=== PATIENT | female | born 1995 | race Caucasian/White ===

== ENCOUNTER 2024-02-11 08:23 | Outpatient (OUT) | payer MEDICAID, SELFPAY ==
--- NOTE | 2024-02-11 08:27 | US_ITS ---
The [address] [address] Patient Name: NISHA FAJARDO MRN: [id number] date: 1995 Sex: F Assigned Patient Location: [facility] Current Patient Location: Accession/Order Number: [id number] Exam Date: 02/11/2024 08:27 Report Date: 02/12/2024 04:26 At the request of: PHIL BURROUGHS Procedure: US OB transvaginal EXAMINATION: US OB transvaginal HISTORY: MISSED MENSES COMPARISON: No relevant comparison available. FINDINGS: GESTATIONAL SAC: Present and normal appearing. YOLK SAC: Present and normal appearing. POLE: Present and normal appearing. CARDIAC: Present. UTERUS: Normal size and appearance. OVARIES: Right: Normal. Left: Normal. CERVIX: 4.9 cm in length and closed. CUL-DE-SAC: Normal. OTHER: None. AGE BY LMP: 9 weeks 5 days KYLEIGH BY LMP: 09/10/2024 AGE BY US CRL: 10 weeks 4 days KYLEIGH BY US CRL: 09/04/2024 US/US OB transvaginal IMPRESSION: 1. Single live intrauterine . Electronically authenticated by: JACEK FLORES Date: 02/12/2024 04:26
== END 2024-02-11 08:24 | disposition home or self-care (01) ==
LOC: NOMS 08:24
PROVIDERS: Visit Provider Obstetrics & Gynecology
DX: Z34.91 Encounter for supervision of normal pregnancy, unspecified, first trimester (principal); Z3A.10 10 weeks gestation of pregnancy; N92.6 Irregular menstruation, unspecified
CPT/HCPCS: 76817

== ENCOUNTER 2024-02-14 13:48 | Outpatient (OUT) | payer MEDICAID, SELFPAY ==
--- OUTSIDE RECORDS SUMMARY | 2024-02-14 13:50 | XMS_ITS | CCD ---
Author Organization [facility] Care Team Providers Care Principal Programmer Name Role Phone DR MECHELLE MOODY Attending Unavailable HEIDY, DR MECHELLE Serrano Consulting Unavailable DR MECHELLE MOODY Admitting Unavailable NaomyAzaelie Unavailable Francisco Javier BOONE, Terrence Cross Primary Care Provider Medications Current Medications Medication Drug Class(es) Dates Sig (Normalized) Sig (Original) ondansetron 4 mg oral tablet (1 source) Serotonin-3 Receptor Antagonist Start: 11-23-2021 take 1 tablet by mouth every eight hours as needed Zofran ODT 4 MG 1 tablet on the tongue and allow to dissolve Orally every 8 hrs as needed for 4 days Nov, Active Vit-Fe Fumarate-FA (PNV Plus Multivitamin) 27-1 MG tablet (1 source) Start: 02-11-2024 End: 02-10-2025 take 1 tablet by mouth once daily Vit-Fe Fumarate-FA (PNV Plus Multivitamin) 27-1 MG tablet Indications: , unspecified gestational age Take 1 tablet by mouth Daily 30 tablet 11 02/11/2024 02/10/2025 Active Problems Active Problems Problem Classification Problem Date Documented Da te Episodic/Chronic Menstrual disorders (1 source) Missed period; Translations: [Irregular menstruation, unspecified] 02-11-2024 Chronic Other and delivery including normal (2 sources) ; Translations: [Encounter for supervision of normal , unspecified, unspecified trimester] 02-11-2024 Episodic Other upper respiratory infections (1 source) Acute pharyngitis, unspecified; Translations: [ACUTE PHARYNGITIS UNSPECIFIED] Onset: 12-07-2020 Episodic Residual codes; unclassified (1 source) Gestation period, 10 weeks; Translations: [10 weeks gestation of ] 02-11-2024 Episodic Unclassified (3 sources) CONTACT W/AND (SUSP) EXPOS COVID-19; Translations: [CONTACT W/AND (SUSP) EXPOS COVID-19] Onset: 12-07-2020 Past or Other Problems Problem Classification Problem Date Documented Da te Episodic/Chronic Unclassified (1 source) CONTACT W/AND (SUSP) EXPOS COVID-19; Translations: [CONTACT W/AND (SUSP) EXPOS COVID-19] Onset: 11-28-2020 Unclassified (1 source) Contact with and (suspected) exposure to covid-19; Translations: [Contact with and (suspected) exposure to covid-19] Unclassified (1 source) Contact with and (suspected) exposure to covid-19 Z20.822 Viral infection (1 source) COVID-19 Results Test Name Value Interpretation Reference Range Facility HCG ( test) Ql (U)o n 02-11-2024 Interpretation and review of laboratory results Abnormal [facility] Preg Test, Ur Positive Negative [facility]inal[facility] macro (dipstick) panel (U)on 02-11-2024 Bilirubin, UA Negative Negative - 4(70) +++ mg/dL [facility] Blood, UA Negative Negative - 50 Jordan/mcL [facility] Clarity, UA Clear [facility] re Color, UA Yellow [facility] Glucose, UA Negative Negative - 1999(110) ++++ mg/dL [facility] Interpretation and review of laboratory results Normal [facility] Ketones, UA Negative Negative - 160(16) ++++ mg/dL [facility] Leukocytes, UA Negative Negative - 500+++ Leanne/mcL [facility] Nitrite, UA Negative Negative - Positive [facility] pH, UA 6 5 - 9 [facility] Health[facility] Protein, UA Negative Negative - 1999(20) ++++ mg/dL [facility] Spec Grav, UA 1.025 1 - 1.03 [facility] Urobilinogen, UA 0.2 0.2 - 12 mg/dL [facility] SARS-CoV-2 (COVID-19) RNA NA A+probe Ql (Resp)on 11-23-2021 SARS-CoV-2 (COVID-19) RNA RASHEED+probe Ql (Unsp spec) Positive [facility] Covid-19 PCR (CVDTB)on 11-03 SARS-CoV-2 (COVID-19) RNA RASHEED+probe Ql (Unsp spec) Not detected Normal NOT DETECTED [facility] Comment on above: Result Comment: This test is not yet approved or cleared by the [place] FDA. When there are no FDA-approved or cleared tests available, and other criteria are met, FDA can make tests available under an emergency access mechanism called an Emergency Use Authorization (EUA). The EUA for this test is supported by the [place] of Health and Human Service's (HHS's) declaration that circumstances exist to justify the emergency use of in vitro diagnostics for the detection and/or diagnosis of the virus that causes COVID-19. This EUA will remain in effect (meaning this test can be used) for the duration of the COVID-19 declaration justifying emergency of IVDs, unless it is terminated or revoked by FDA (after which the test may no longer be used). When diagnostic testing is negative, the possibility of a false negative should be considered in the context of a patient's recent exposures and the presence of clinical signs and symptoms consistent with SARS-CoV-2. Performed By: #### [facility] #### [facility] [address] [place] [address] Dr. Kaela Stewart Vital Signs Date Time Vital Sign Value Performing Clinician Facility 02-11-2024 09:32-0500 Body weight 86.18 kg [facility] Nurse [facility] 02-11-2024 09:32-0500 Diastolic blood pressure 70 mm[Hg] [facility] Nurse [facility] 02-11-2024 09:32-0500 Systolic blood pressure 110 mm[Hg] [facility] Nurse [facility] 11-23-2021 14:10-0400 Body height 154.94 cm Marianna Moralez Other [facility] 11-23-2021 14:10-0400 Body mass index (BMI) [Ratio] 34.01 kg/m2 Marianna Moralez Other [facility] 11-23-2021 14:10-0400 Body temperature 99.8 [degF] Marianna Moralez Other [facility] 11-23-2021 14:10-0400 Body weight 81.65 kg Marianna Moralez Other [facility] 11-23-2021 14:10-0400 Respiratory rate 18 /min Marianna Moralez Other [facility] 11-23-2021 14:10-0400 SaO2% (BldA) [Mass fraction] 97 % Marianna Moralez Other [facility] Other Encounters Encounter Date Encounter Type Care Provider Facility Start: 02-11-2024 End: 02-11-2024 ambulatory [facility] Comment on above: GA: 10w4d Start: 11-23-2021 End: 11-23-2021 ambulatory Marianna Moralez Other [facility] Start: 11-23-2021 Office outpatient ne w 30 minutes Marianna Moralez [facility] Start: 11-28-2020 End: 11-28-[address] MECHELLE MOODY Facility: Procedures Date Procedure Procedure Detail Performing Clinician Start: 02-11-2024 End: 02-11-2024 Urnls dip stick/tablet rgnt non-auto w/o micrscp Ronald Fierro DO Work Phone: Plan of Treatment Date Care Activity Detail Author Start: 03-16-2024 End: 03-16-2024 Patient encounter procedure 03/16/2024 3:50 PM EST Routine [facility] [address] [place] [address] Ronald Fierro, DO [address], [place] [id number] [facility] Start: 02-11-2024 End: 02-10-2025 ABO/Rh ABO/Rh Lab Routine Missed menses , unspecified gestational age Expected: 02/11/2024 (Approximate), Expires: 02/10/2025 [facility] Comment on above: Expected: 02/11/2024 (Approximate), Expires: 02/10/2025 Start: 02-11-2024 End: 02-10-2025 Blood type and Indirect antibody screen panel - Blood Type and screen Lab Routine Missed menses , unspecified gestational age Expected: 02/11/2024 (Approximate), Expires: 02/10/2025 [facility] Work Phone: Comment on above: Expected: 02/11/2024 (Approximate), Expires: 02/10/2025 Start: 02-11-2024 End: 02-10-2025 Drugs of abuse panel - Urine by Screen method Rapid drug screen, urine Lab Routine , unspecified gestational age Encounter for supervision of normal first in first trimester Expected: 02/11/2024 (Approximate), Expires: 02/10/2025 [facility] Comment on above: Expected: 02/11/2024 (Approximate), Expires: 02/10/2025 Start: 02-11-2024 End: 02-10-2025 US Pelvis transvaginal US OB transvaginal Imaging Routine Missed menses Expected: 02/11/2024 (Approximate), Expires: 02/10/2025 [facility] Comment on above: Expected: 02/11/2024 (Approximate), Expires: 02/10/2025 Bacteria identified in Urine by Culture Urine culture Microbiology Routine Missed menses Ordered: 02/11/2024 [facility] Comment on above: Ordered: 02/11/2024 CBC W Auto Different ial panel - Blood CBC and differential Lab Routine Missed menses , unspecified gestational age Ordered: 02/11/2024 [facility] Comment on above: Ordered: 02/11/2024 Hemoglobin A1c/Hemoglobin.total in Blood Hemoglobin A1c Lab Routine Missed menses , unspecified gestational age Ordered: 02/11/2024 [facility] Comment on above: Ordered: 02/11/2024 Hepatitis B virus surface Ag [Presence] in Serum or Plasma by Immunoassay Hepatitis B surface antigen Lab Routine Missed menses , unspecified gestational age Ordered: 02/11/2024 [facility] Comment on above: Ordered: 02/11/2024 Hepatitis C virus Ab [Presence] in Serum or Plasma by Immunoassay Hepatitis C antibody Lab Routine Missed menses , unspecified gestational age Ordered: 02/11/2024 [facility] Comment on above: Ordered: 02/11/2024 HIV-1/HIV-2 antigen/antibody combination immunoassay HIV-1 and HIV-2 antibodies Lab Routine Missed menses , unspecified gestational age Ordered: 02/11/2024 [facility] Comment on above: Ordered: 02/11/2024 Reagin Ab [Presence] in Serum by RPR RPR Lab Routine Missed menses , unspecified gestational age Ordered: 02/11/2024 [facility] Comment on above: Ordered: 02/11/2024 Rubella antibody, IgG Rubella an tibody, IgG Lab Routine Missed menses , unspecified gestational age Ordered: 02/11/2024 [facility] Comment on above: Ordered: 02/11/2024 Payers Date Payer Category Payer Medicaid [place] [id number] 2024 Medicaid [id number] 1995 Unknown [id number] 1995 Unknown [id number] 1957 Unknown [id number] Social History Date Type Detail Facility Sex Assigned At [facility] Tobacco smoking status DCIS Tobacco smoking consumption unknown [facility] Start: 12-13-2023 [facility] Start: 1995 Sex assigned at Not on file [facility] History of Present illness Narrative 02-11-2024 Annie Keith MA - 02/11/2024 9:00 AM EST Note Date & Type Note Facility 02-11-2024 History of Presen t illness Narrative Reason for Appointment: Patient ID: Veda Mtz is a 28 y.o. female who presents for Amenorrhea Patient presents today for a Nurse OB Intake appointment. Patient is 10w4d with a Estimated Date of Delivery: 09/04/24 OB History Para Term AB Living 1 SAB IAB Ectopic Multiple Live Births # Outcome Date GA Lbr Zeus/2nd Weight Sex Type Anes PTL Lv 1 Current Current Medications: has a current medication list which includes the following prescription(s): pnv plus multivitamin. Medical History: Active Ambulatory Problems Diagnosis Date Noted No Active Ambulatory Problems Resolved Ambulatory Problems Diagnosis Date Noted No Resolved Ambulatory Problems No Additional Past Medical History No family history on file. Social History Tobacco Use Smoking status: Not on file Smokeless tobacco: Not on file Substance Use Topics Alcohol use: Not on file Drug use: Not on file No past surgical history on file. No Known Allergies Vitals: There is no height or weight on file to calculate BMI. BP: 110/70 Patient's last menstrual period was 12/05/2023. Assessment/Plan Diagnoses and all orders for this visit: Missed menses - Type and screen; Future - ABO/Rh; Future - CBC and differential - Hemoglobin A1c - RPR - Rubella antibody, IgG - Hepatitis B surface antigen - Hepatitis C antibody - HIV-1 and HIV-2 antibodies - Urine culture - US OB transvaginal; Future - POCT , urine manually resulted - POCT urinalysis dipstick manually resulted , unspecified gestational age - Type and screen; Future - ABO/Rh; Future - CBC and differential - Hemoglobin A1c - RPR - Rubella antibody, IgG - Hepatitis B surface antigen - Hepatitis C antibody - HIV-1 and HIV-2 antibodies - Rapid drug screen, urine; Future - Vit-Fe Fumarate-FA (PNV Plus Multivitamin) 27-1 MG tablet; Take 1 tablet by mouth Daily Encounter for supervision of normal first in first trimester - Rapid drug screen, urine; Future 10 weeks gestation of Nurse Note: OB Intake: Patient presents today for first OB visit. Patients history has been reviewed in great detail including any potential risks. Patient signed consent forms and patient desires testing in both trimesters. Patient currently has no complaints and has been advised to drink 6-8 glasses of water a day, eat no raw or undercooked meat, and stay away from [facility]. Patient has also been advised to not change litter boxes and eat 6 small meals a day. Patient has been consulted regarding the do's and don'ts of . Patient was given labs and all questions and concerns were answered. Follow Up: Patient is to return in 4 weeks for routine OB appointment. Follow Up: Patient is to have labs drawn at directed and return to office for initial OB appointment with provider. Patient may call office as needed with any concerns or questions. Nurse Visit Completed by: Annie Keith MA documented in this encounter [facility] Evaluation note 11-23-2021 Note Date & Type Note Facility 11-23-2021 Evaluation note Encounter Date Diagnosis Assessment Notes Nov, Contact with and (suspected) exposure to covid-19 (ICD-10 - Z20.822) Nov, COVID-19 (ICD-10 - U07.1) Today you tested positive for the COVID virus. This mean you need to follow all CDC quarantine guidelines found at coronavirus.oh io.gov. It is important to rest, increase fluids, and stay at home. Recommend contacting primary care provider and discussing best course of action if you have chronic health conditions. COVID POSITIVE education handout discharge instructions. given. T [facility] Other Evaluation note Note Date & Type Note Facility Evaluation note Diagnosis Missed menses , unspecified gestational age Encounter for supervision of normal first in first trimester 10 weeks gestation of documented in this encounter [facility] Summary Purpose Family History No Family History Records FoundNo Family History Records Found Advance Directives No Advanced Directives Records FoundNo Advanced Directives Records Found Additional Source Comments INFORMATION SOURCE (unrecogn ized section and content) DATE CREATED AUTHOR 12/08/2020 [facility] DATE CREATED AUTHOR AUTHOR'S ORGANIZ ATION 02/14/2024 [facility] EPIC REASON FOR VISIT (unrecogniz ed section and content) Reason Comments Amenorrhea Care Teams (unrecognized sec tion and content) Principal Programmer Relationship Specialty Start Date End Date Terrence Mcintyre MD [address] [place] [address] PCP - General Family Medicine 02/11/24 FOR RECORDS PERTAINING TO PATIENTS WHO ARE OR HAVE BEEN ENROLLED IN A CHEMICAL DEPENDENCY/SUBSTANCEABUSE PROGRAM, SOME INFORMATION MAY BE OMITTED. This clinical summary was aggregated from multiple sources. Caution should be exercised in using it in the provision of clinical care. This summary normalizes information from multiple sources, and as a consequence, information in this document may materially change the coding, format and clinical context of patient data. In addition, data may be omitted in some cases. CLINICAL DECISIONS SHOULD BE BASED ON THE PRIMARY CLINICAL RECORDS. [employer] [facility]. provides no warranty or guarantee of the accuracy or completeness of information in this document.
[2024-02-14 14:18] LABS: Basophils Absolute Auto 0.1 10^3/uL (0.0-0.1); Basophils Percent Auto 0.5 % (0.2-2.0); Eosinophils Percent Auto 0.4 % (0.9-7.0); Hematocrit 39.8 % (36.0-48.0); Hemoglobin 13.5 g/dL (12.0-16.0); Immature Granulocytes Abs Auto 0.03 10^3/uL (0.00-0.03); Immature Granulocytes Pct Auto 0.3 % (0.0-0.5); Lymphocytes Absolute Auto 1.8 10^3/uL (1.2-3.8); Lymphocytes Percent Auto 16.2 % (20.5-60.0); Mean Corpuscular HGB Conc 33.9 g/dL (29.9-35.2); Mean Corpuscular Hemoglobin 28.8 pg (26.7-34.0); Monocytes Absolute Auto 0.4 10^3/uL (0.3-0.8); Monocytes Percent Auto 3.8 % (1.7-12.0); Neutrophils Absolute Auto 8.8 10^3/uL (1.4-6.5); Neutrophils Percent Auto 78.8 % (43.0-75.0); Platelet Count 351 10^3/uL (150-450); Red Blood Count 4.68 10^6/uL (4.20-5.40); Red Cell Distribution Width 12.4 % (11.0-15.0); White Blood Count 11.2 10^3/uL (4.0-11.0)
[2024-02-14 14:36] LABS: Amphetamine Screen Urine NEGATIVE (NEGATIVE); Barbiturates Screen Urine NEGATIVE (NEGATIVE); Benzodiazepines Screen Urine NEGATIVE (NEGATIVE); Buprenorphine Screen Urine NEGATIVE (NEGATIVE); Cannabinoid Screen Urine NEGATIVE (NEGATIVE); Cocaine Screen Urine NEGATIVE (NEGATIVE); Methadone Screen Urine NEGATIVE (NEGATIVE); Methamphetamines Screen Urine NEGATIVE (NEGATIVE); Opiate Screen Urine NEGATIVE (NEGATIVE); Oxycodone Screen Urine NEGATIVE (NEGATIVE); Phencyclidine Screen Urine NEGATIVE (NEGATIVE); Tricyclic Antidepressant Urine NEGATIVE (NEGATIVE)
[2024-02-14 15:05] LABS: Estimated Average Glucose 91 mg/dL; Glycohemoglobin A1C 4.8 % (4.5-6.2)
[2024-02-15 08:11] LABS: HBsAg Screen Negative (Negative); HCV Ab Non Reactive (Non Reactive); HIV Ab/p24 Ag Screen Non Reactive (Non Reactive)
[2024-02-15 10:12] LABS: Rapid Plasma Reagin, Quant Non Reactive titer (NonRea<1:1)
[2024-02-17 10:07] LABS: Rubella Antibodies, IgG 0.97 index (Immune >0.99)
== END 2024-02-14 13:49 | disposition home or self-care (01) ==
LOC: LAB 13:48
PROVIDERS: Visit Provider Obstetrics & Gynecology
DX: Z34.01 Encounter for supervision of normal first pregnancy, first trimester (principal); Z34.90 Encounter for supervision of normal pregnancy, unspecified, unspecified trimester
CPT/HCPCS: 36415; 80307; 83036; 85025; 86592; 86762; 86803; 86850; 86900; 86901; 87086; 87150; 87186; 87340; 87389

== ENCOUNTER 2024-04-15 19:46 | Outpatient (REF) | payer OTHER, SELFPAY ==
--- OUTSIDE RECORDS SUMMARY | 2024-04-15 19:49 | XMS_ITS | CCD ---
Author Organization [facility] Care Team Providers Care 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 Name Role Phone DR MECHELLE MOODY Attending Unavailable HEIDY, DR MECHELLE Serrano Consulting Unavailable HEIDY, DR MECHELLE Serrano Admitting Unavailable Marianna Moralez Unavailable Francisco Javier BOONE, Terrence Cross Primary Care Provider [phone] PHIL FIERRO Attending Unavailable Sarah Dowling Primary Care Provider Medications Current Medications Medication Drug Class(es) Dates Sig (Normalized) Sig (Original) azithromycin 250 mg oral tablet (1 source) Macrolide Antimicrobial Start: 04-04-2024 take 1 tablet by mouth once daily Azithromycin 250 mg tablet Active 250 MG PO Daily April 04, 2024 12:00am Ethinyl Estradiol / Ferrous fumarate / Norethindrone (1 source) Estrogen Start: 03-05-2022, 1 mg-20 mcg (21)/75 mg (7) per tablet TAKE 1 TABLET DAILY 84 tablet 03/05/2022 Active ondansetron 4 mg oral tablet (2 sources) Serotonin-3 Receptor Antagonist Start: 05-28-2022 take 1 tablet by mouth every eight hours as needed for nausea and vomiting ondansetron (ZOFRAN) 4 mg tablet Take 1 tablet (4 mg total) by mouth every 8 (eight) hours as needed for nausea or vomiting. 20 tablet 05/28/2022 Active Start: 11-23-2021 take 1 tablet by nikolay th every eight hours as needed Zofran ODT 4 MG 1 tablet on the tongue and allow to dissolve Orally every 8 hrs as needed for 4 days Nov, Active oseltamivir 75 mg oral capsule (1 source) Neuraminidase Inhibitor Start: 04-04-2024 take 1 capsule by mouth twice daily Oseltamivir 75 mg capsule Active 75 MG PO Twice daily 10 5 April 04, 2024 12:00am Pnv,Calcium 02-Wsbc-Bsawf Acid ( Vitamin Plus Low Iron) 27 mg iron- 1 mg tablet (1 source) Start: 04-04-2024 take 1 tablet by mouth once daily Pnv,Calcium 73-Gopu-Tjxaa Acid ( Vitamin Plus Low Iron) 27 mg iron- 1 mg tablet Active 1 TAB PO Daily April 04, 2024 12:00am Vit-Fe Fumarate-FA (PNV Plus Multivitamin) 27-1 MG tablet (5 sources) Start: 02-11-2024 End: 02-10-2025 take 1 tablet by mouth once daily Vit-Fe Fumarate-FA (PNV Plus Multivitamin) 27-1 MG tablet Indications: , unspecified gestational age Take 1 tablet by mouth Daily 30 tablet 11 02/11/2024 02/10/2025 Active Problems Active Problems Problem Classification Problem Date Documented Da te Episodic/Chronic Influenza (2 sources) Influenza due to Influenza A virus; Translations: [Influenza due to other identified influenza virus with other respiratory manifestations] 04-04-2024 Episodic Menstrual disorders (1 source) Missed period; Translations: [Irregular menstruation, unspecified] 02-11-2024 Chronic Other and delivery including normal (4 sources) ; Translations: [Encounter for supervision of normal , unspecified, unspecified trimester] 02-11-2024 Episodic Other upper respiratory infections (1 source) Acute pharyngitis, unspecified; Translations: [ACUTE PHARYNGITIS UNSPECIFIED] Onset: 12-07-2020 Episodic Residual codes; unclassified (1 source) Gestation period, 10 weeks; Translations: [10 weeks gestation of ] 02-11-2024 Episodic Residual codes; unclassified (2 sources) Gestation period, 15 weeks; Translations: [15 weeks gestation of ] 03-16-2024 Episodic Unclassified (3 sources) CONTACT W/AND (SUSP) EXPOS COVID-19; Translations: [CONTACT W/AND (SUSP) EXPOS COVID-19] Onset: 12-07-2020 Past or Other Problems Problem Classification Problem Date Documented Da te Episodic/Chronic Mood disorders (1 source) Mood disorders Onset: 05-28-2022 05-28-2022 Unclassified (1 source) CONTACT W/AND (SUSP) EXPOS COVID-19; Translations: [CONTACT W/AND (SUSP) EXPOS COVID-19] Onset: 11-28-2020 Unclassified (1 source) Contact with and (suspected) exposure to covid-19; Translations: [Contact with and (suspected) exposure to covid-19] Unclassified (1 source) Contact with and (suspected) exposure to covid-19 Z20.822 Viral infection (1 source) COVID-19 Results Test Name Value Interpretation Reference Range Facility ALL CBC WITH AUTO DIFFon BASOPHILS ABSOLUTE AUTO 0.1 [facility] Basophils/100 WBC (Bld) 0.5 % 0.2 - 2.0 % [facility] Eosinophils/100 WBC (Bld) 0.4 % Low 0.9 - 7.0 % [facility] Erythrocyte distribution width (RBC) [Ratio] 12.4 % 11.0 - 15.0 % [facility] Hematocrit (Bld) [Volume fraction] 39.8 % 36.0 - 48.0 % [facility] Hemoglobin (Bld) [Mass/Vol] 13.5 g/dL 12.0 - 16.0 g/dL [facility] IMMATURE GRANULOCYTES ABS AUTO 0.03 [facility] Immature granulocytes/100 WBC (Bld) 0.3 % 0.0 - 0.5 % [facility] Interpretation and review of laboratory results Abnormal [facility] LYMPHOCYTES ABSOLUTE AUTO 1.8 [facility] Lymphocytes/100 WBC (Bld) 16.2 % Low 20.5 - 60.0 % [facility] MCH (RBC) [Entitic mass] 28.8 pg 26.7 - 34.0 pg [facility] MCHC (RBC) [Mass/Vol] 33.9 g/dL 29.9 - 35.2 g/dL [facility] MCV (RBC) [Entitic vol] 85 fL 81.0 - 99.0 fL [facility] MONOCYTES ABSOLUTE AUTO 0.4 [facility] Monocytes/100 WBC (Bld) 3.8 % 1.7 - 12.0 % [facility] NEUTROPHILS ABSOLUTE AUTO 8.8 High [facility] Neutrophils/100 WBC (Bld) 78.8 % High 43.0 - 75.0 % [facility] Platelet mean volume (Bld) [Entitic vol] 9 fL Low 9.5 - 13.5 fL [facility] are TB EO # 0 [facility] e TB PLT 351 [facility] e [facility] RBC 4.68 [facility] WBC 11.2 High [facility] e [facility] e [facility] DRUG SCREEN RAPID (URINE )on 02-14-2024 AMPHETAMINE SCREEN URINE Negative NEGATIVE [facility] BARBITURATES SCREEN URINE Negative NEGATIVE [facility] BENZODIAZEPINES SCREEN URINE Negative NEGATIVE [facility] BUPRENORPHINE SCREEN URINE Negative NEGATIVE [facility] Comment on above: DRUG CLASS TEST SYST EM CUT-OFF CONCENTRATIONS ARE FOLLOWS: AMP (Amphetamine): 500 ng/mL BAR (Barbiturates): 200 ng/mL BZO (Benzodiazepines): 150 ng/mL BUP (Buprenorphine): 10 ng/mL VICTORIA (Cocaine): 150 ng/mL mAMP (Methamphetamine): 500 ng/mL MTD (Methadone): 200 ng/mL OPI (Opiates): 100 ng/mL OXY (Oxycodone): 100 ng/mL PCP (Phencyclidine): 25 ng/mL THC (Cannabinoids): 50 ng/mL TCA (Trycyclic Antidepressants): 300 ng/mL CANNABINOID SCREEN URINE Negative NEGATIVE [facility] COCAINE SCREEN URINE Negative NEGATIVE [facility] METHADONE SCREEN URINE Negative NEGATIVE [facility] METHAMPHETAMINES SCREEN URINE Negative NEGATIVE [facility] OPIATE SCREEN URINE Negative NEGATIVE [facility] OXYCODONE SCREEN URINE Negative NEGATIVE [facility] PHENCYCLIDINE SCREEN URINE Negative NEGATIVE [facility] TRICYCLIC ANTIDEPRESSANT URINE Negative NEGATIVE [facility] e HCG ( test) Ql (U)o n 02-11-2024 Interpretation and review of laboratory results Abnormal [facility] Preg Test, Ur Positive Negative [facility] Urinalysis macro (dipstick) panel (U)on 02-11-2024 Bilirubin, UA Negative Negative - 4(70) +++ mg/dL [facility] Blood, UA Negative Negative - 50 Jordan/mcL [facility] Clarity, UA Clear [facility] re Color, UA Yellow [facility] e Glucose, UA Negative Negative - 2000(110) ++++ mg/dL [facility] Interpretation and review of laboratory results Normal [facility] Ketones, UA Negative Negative - 160(16) ++++ mg/dL [facility] Leukocytes, UA Negative Negative - 500+++ Leanne/mcL [facility] Nitrite, UA Negative Negative - Positive [facility] pH, UA 6 5 - 9 [facility] Health[facility] e Protein, UA Negative Negative - 2000(20) ++++ mg/dL [facility] Spec Grav, UA 1.025 1 - 1.03 [facility] Urobilinogen, UA 0.2 0.2 - 12 mg/dL [facility] SARS-CoV-2 (COVID-19) RNA NA A+probe Ql (Resp)on 11-23-2021 SARS-CoV-2 (COVID-19) RNA RASHEED+probe Ql (Unsp spec) Positive [employer] Other Covid-19 PCR ([facility])on 11-03 SARS-CoV-2 (COVID-19) RNA RASHEED+probe Ql (Unsp spec) Not detected Normal NOT DETECTED [facility] Comment on above: Result Comment: This test is not yet approved or cleared by the [place] FDA. When there are no FDA-approved or cleared tests available, and other criteria are met, FDA can make tests available under an emergency access mechanism called an Emergency Use Authorization (EUA). The EUA for this test is supported by the [place] of Health and Human Service's (HHS's) declaration [...] consistent with SARS-CoV-2. Performed By: #### [facility] #### [facility] [address] [place] [address] Dr. Kaela Stewart Vital Signs Date Time Vital Sign Value Performing Clinician Facility 04-04-2024 10:57-0500 Body height 157.48 cm [facility] 04-04-2024 10:57-0500 Body mass index (BMI) [Ratio] 35.4 kg/m2 [facility] 04-04-2024 10:57-0500 Body temperature 99.8 [degF] [facility] 04-04-2024 10:57-0500 Body weight 87.99 kg [facility] 04-04-2024 10:57-0500 Diastolic blood pressure 71 mm[Hg] [facility] 04-04-2024 10:57-0500 Heart rate 118 /min [facility] 04-04-2024 10:57-0500 Respiratory rate 16 /min [facility] 04-04-2024 10:57-0500 SaO2% (BldA) [Mass fraction] 98 % [facility] 04-04-2024 10:57-0500 Systolic blood pressure 101 mm[Hg] [facility] 03-16-2024 16:35-0500 Body weight 88.18 kg [employer] Work Phone: [facility] 03-16-2024 16:35-0500 Diastolic blood pressure 68 mm[Hg] Phil Sri DO Work Phone: [facility] 03-16-2024 16:35-0500 Systolic blood pressure 108 mm[Hg] Phil Sri DO Work Phone: [facility] 02-11-2024 09:32-0500 Body weight 86.18 kg Nom Nurse [facility] 02-11-2024 09:32-0500 Diastolic blood pressure 70 mm[Hg] [facility] Nurse [facility] 02-11-2024 09:32-0500 Systolic blood pressure 110 mm[Hg] [facility] Nurse [facility] 11-23-2021 14:10-0400 Body height 154.94 cm Marianna Moralez Other [employer] Other 11-23-2021 14:10-0400 Body mass index (BMI) [Ratio] 34.01 kg/m2 Marianna Moralez Other [employer] [facility] [employer] Other 11-23-2021 14:10-0400 Body temperature 99.8 [degF] Marianna Moralez Other [employer] Other 11-23-2021 14:10-0400 Body weight 81.65 kg Marianna Moralez Other [employer] Other 11-23-2021 14:10-0400 Respiratory rate 18 /min Marianna Moralez Other [employer] Other 11-23-2021 14:10-0400 SaO2% (BldA) [Mass fraction] 97 % Marianna Moralez Other [employer] Other Encounters Encounter Date Encounter Type Care Provider Facility Start: 04-14-2024 End: 04-15-2024 Telephone encounter Sarah Queen APRN-[employer] WORK[employer] Work Phone: [facility] Start: 04-04-2024 End: 04-04-2024 ambulatory [facility] Work Phone: Start: 04-04-2024 End: 04-04-2024 Patient encounter procedure [facility] Work Phone: Start: 03-16-2024 End: 03-16-2024 ambulatory PHIL SRI Not Available Start: 03-16-2024 End: 03-16-2024 Office outpatient visit 15 minutes Phil Sri DO Work Phone: [facility] Comment on above: Second trimester pre gnancy; 15 weeks gestation of Start: 03-16-2024 End: 03-16-2024 Bamboo flowsheet Phil Sri DO Work Phone: [facility] Start: 03-16-2024 End: 03-16-2024 Bamboo flowsheet Phil Sri DO Work Phone: [facility] Start: 02-14-2024 End: 02-14-2024 [facility] Result Encounter Phil Calderazio DO Work Phone: [facility] Unsolicited Start: 02-14-2024 End: 02-14-2024 [facility] Result Encounter Phil Sri DO Work Phone: [facility] Unsolicited Start: 02-11-2024 End: 02-11-2024 ambulatory [facility] Sri Nurse [facility] Comment on above: GA: 10w4d Start: 11-23-2021 End: 11-23-2021 ambulatory Marianna Moralez Other [employer] Other Start: 11-23-2021 Office outpatient ne w 30 minutes Marianna Moralez [facility] Start: 11-28-2020 End: 11-28-[address] MECHELLE MOODY Facility: Procedures Date Procedure Procedure Detail Performing Clinician Start: 02-14-2024 ALL CBC WITH AUTO DIFF Phil Sri DO Work Phone: Start: 02-14-2024 [facility] DRUG SCREEN RAPI D (URINE) Phil Sri DO Work Phone: Start: 02-11-2024 End: 02-11-2024 Urnls dip stick/tablet rgnt non-auto w/o micrscp Phil Sri DO Work Phone: Start: 05-28-2022 Adult depression scr eening assessment Sarah Queen APRN-[employer] WORK[employer] Work Phone: Start: 12-15-2018 Microscopic observat ion [Identifier] in Cervix by Cyto stain Sarah Queen DIE [employer]AKER[employer] Work Phone: Plan of Treatment Date Care Activity Detail Author Start: 06-12-2024 End: 06-12-2024 Patient encounter procedure 06/12/2024 9:40 AM EDT Office Visit [facility] [address] [place] [id number] Sarah Queen D[employer] [address] [place] [address] [facility] Start: 04-15-2024 End: 04-15-2024 Patient encounter procedure 04/15/2024 3:50 PM EST Routine [facility] [address] [address] Chelsea Carson PA [address] [place], [place] [id number] [facility] Start: 03-16-2024 End: 03-16-2024 Patient encounter procedure 03/16/2024 3:50 PM EST Routine [facility] [address] [address] Phil Fierro DO [address] [place], [place] [id number] [facility] Start: 02-11-2024 End: 02-10-2025 ABO/Rh ABO/Rh Lab Routine Missed menses , unspecified gestational age Expected: 02/11/2024 (Approximate), Expires: 02/10/2025 [facility] Comment on above: Expected: 02/11/2024 (Approximate), Expires: 02/10/2025 Start: 02-11-2024 End: 02-10-2025 Blood type and Indirect antibody screen panel - Blood Type and screen Lab Routine Missed menses , unspecified gestational age Expected: 02/11/2024 (Approximate), Expires: 02/10/2025 [facility] Work Phone: Comment on above: Expected: 02/11/2024 (Approximate), Expires: 02/10/2025 Start: 02-11-2024 End: 02-10-2025 Drugs of abuse panel - Urine by Screen method Rapid drug screen, urine Lab Routine , unspecified gestational age Encounter for supervision of normal first in first trimester Expected: 02/11/2024 (Approximate), Expires: 02/10/2025 [facility] Comment on above: Expected: 02/11/2024 (Approximate), Expires: 02/10/2025 Start: 02-11-2024 End: 02-10-2025 US Pelvis transvaginal US OB transvaginal Imaging Routine Missed menses Expected: 02/11/2024 (Approximate), Expires: 02/10/2025 [facility] Comment on above: Expected: 02/11/2024 (Approximate), Expires: 02/10/2025 Start: 05-29-2023 Adult BMI Screening Adult BMI Screen ing [facility] Start: 05-29-2023 Depression Screening Depression Scre ening [facility] Start: 05-29-2023 Tobacco Screening Tobacco Screening [facility] Start: 12-15-2021 Screening for malign ant neoplasm of cervix Pap Smear [facility] Start: 11-22-2020 DTaP,Tdap and Td Vaccines (7 - Td or Tdap) DTaP,Tdap and Td Vaccines (7 - Td or Tdap) [facility] Bacteria identified in Urine by Culture Urine culture Microbiology Routine Missed menses Ordered: 02/11/2024 [facility] Comment on above: Ordered: 02/11/2024 CBC W Auto Different ial panel - Blood CBC and differential Lab Routine Missed menses , unspecified gestational age Ordered: 02/11/2024 [facility] Comment on above: Ordered: 02/11/2024 Hemoglobin A1c/Hemoglobin.total in Blood Hemoglobin A1c Lab Routine Missed menses , unspecified gestational age Ordered: 02/11/2024 [facility] Comment on above: Ordered: 02/11/2024 Hepatitis B virus surface Ag [Presence] in Serum or Plasma by Immunoassay Hepatitis B surface antigen Lab Routine Missed menses , unspecified gestational age Ordered: 02/11/2024 [facility] Comment on above: Ordered: 02/11/2024 Hepatitis C virus Ab [Presence] in Serum or Plasma by Immunoassay Hepatitis C antibody Lab Routine Missed menses , unspecified gestational age Ordered: 02/11/2024 [facility] Comment on above: Ordered: 02/11/2024 HIV-1/HIV-2 antigen/antibody combination immunoassay HIV-1 and HIV-2 antibodies Lab Routine Missed menses , unspecified gestational age Ordered: 02/11/2024 [facility] Comment on above: Ordered: 02/11/2024 Reagin Ab [Presence] in Serum by RPR RPR Lab Routine Missed menses , unspecified gestational age Ordered: 02/11/2024 [facility] Comment on above: Ordered: 02/11/2024 Rubella antibody, IgG Rubella an tibody, IgG Lab Routine Missed menses , unspecified gestational age Ordered: 02/11/2024 [facility] Comment on above: Ordered: 02/11/2024 Immunizations Immunization Date Immunization Notes Care Provider Werner [email or web address] 01-10-2021 Influenza, injectabl e, Madin Frankford Canine Kidney, preservative free, quadrivalent Sarah Bernice [facility] Work Phone: [facility] 11-22-2015 meningococcal oligosaccharide (groups A, C, Y and W-135) diphtheria toxoid conjugate vaccine (MCV4O) Sarah Bernice [facility] Work Phone: [facility] 11-22-2010 tetanus toxoid, redu john diphtheria toxoid, and acellular pertussis [facility], [facility] Work Phone: [facility] 10-20-2003 DTaP-hepatitis B and poliovirus vaccine Sarahdonnie Tariquch [facility] Work Phone: [facility] 10-20-2003 measles, mumps and rubella virus vaccine Sarah Bernice [facility] Work Phone: [facility] 10-24-1998 diphtheria, tetanus toxoids and acellular pertussis vaccine, unspecified formulation Sarah Bernice [facility] Work Phone: [facility] 10-24-1998 haemophilus influenz ae type b vaccine, conjugate unspecified formulation [facility] Work Phone: [facility] 10-24-1998 measles, mumps and rubella virus vaccine Sarah Bernice [facility] Work Phone: [facility] 06-08-1998 diphtheria, tetanus toxoids and acellular pertussis vaccine, unspecified formulation Sarah Bernice [employer] Work Phone: [facility] 06-08-1998 haemophilus influenz ae type b vaccine, conjugate unspecified formulation Sarah Bernice [employer] Work Phone: [facility] 06-08-1998 poliovirus vaccine, unspecified formulation Sarah Bernice [employer] Work Phone: [facility] 04-01-1998 diphtheria, tetanus toxoids and acellular pertussis vaccine, unspecified formulation Sarah Bernice [employer] Work Phone: [facility] 04-01-1998 haemophilus influenz ae type b vaccine, conjugate unspecified formulation Sarah Bernice [employer] Work Phone: [facility] 04-01-1998 hepatitis B vaccine, pediatric or pediatric/adolescent dosage Sarah Bernice [employer] Work Phone: [facility] 04-01-1998 poliovirus vaccine, unspecified formulation Sarah Bernice [employer] Work Phone: [facility] 01-12-1998 diphtheria, tetanus toxoids and acellular pertussis vaccine, unspecified formulation Sarah Bernice [employer] Work Phone: [facility] 01-12-1998 haemophilus influenz ae type b vaccine, conjugate unspecified formulation Sarah Bernice [employer] Work Phone: [facility] 01-12-1998 poliovirus vaccine, unspecified formulation Sarah Bernice [employer] Work Phone: [facility] 1997 hepatitis B vaccine, pediatric or pediatric/adolescent dosage Sarah Bernice [employer] Work Phone: [facility] 1997 hepatitis B vaccine, pediatric or pediatric/adolescent dosage Sarah Bernice [employer] Work Phone: [facility] Payers Date Payer Category Payer [facility] Insurance [employer]ICA[employer] [id number] 2024 Medicaid MEDICAID [place] [facility] [id number] 2024 Medicaid [id number] 2017 [facility] - [place] [id number] 1997 Unknown [id number] 1997 Unknown [id number] 1997 Unknown [id number] 1959 Unknown [id number] Social History Date Type Detail Facility Start: 08-13-2018 End: 05-28-2022 Sex Assigned At [facility] [employer] [facility] Start: 12-13-2023 [facility] Start: 1995 Sex assigned at Not on file [facility] Start: 05-28-2022 End: 04-04-2024 Tobacco smoking status MNIS Never smoked tobacco (finding) [facility] Start: 10-07-2014 End: 04-04-2024 Sex Female (finding) [facility] Start: 1995 Sex Assigned At Female [facility] Start: 05-28-2022 Tobacco use and exposure Smokeless tobacco non-user [facility] Start: 05-28-2022 Alcoholic beverage intake Ex-drinker (finding) [facility] Start: 08-13-2018 End: 05-28-2022 History of Social function [facility] Adolescent depressio n screening assessment 0 [facility] Note 04-14-2024 Telephone Encounter - Lupe Stacy - 04/14/2024 10:08 AM ESTTelephone Encounter - Lupe Stacy - 04/14/2024 10:08 AM EST Note Date & Type Note Facility 04-14-2024 Miscellaneous Notes Formattin g of this note might be different from the original. set up establish care with provider of choice LM on VM documented in this encounter [facility] Telephone encounter Note 04-14-2024 Telephone Encounter - Lupe Stacy - 04/14/2024 10:08 AM EST Note Date & Type Note Facility 04-14-2024 Telephone encount er Note set up establish care with provider of choice [employer] [facility] Telephone encounter Note 04-14-2024 Telephone Encounter - Lupe Stacy - 04/14/2024 10:08 AM EST Note Date & Type Note Facility 04-14-2024 Telephone encount er Note LM on VM Experiment Evaluation note 04-04-2024 Note Date & Type Note Facility 04-04-2024 Evaluation note Diagnosis Onset Date Resolution Influenza A acute April 04, 2024 10:32am [facility] Work Phone: History of Present illness Narrative 03-16-2024 Ijeoma Carrera LPN - 03/16/2024 3:50 PM EST Note Date & Type Note Facility 03-16-2024 History of Presen t illness Narrative Reason for Appointment: Patient ID: Veda Fajardo is a 28 y.o. female who presents for Routine Visit Patient presents today for Return OB appointment. MEDICATIONS Current Outpatient Medications Medication Instructions Vit-Fe Fumarate-FA (PNV Plus Multivitamin) 27-1 MG tablet 1 tablet, Oral, Daily ALLERGIES No Known Allergies PROBLEMS Active Ambulatory Problems Diagnosis Date Noted No Active Ambulatory Problems Resolved Ambulatory Problems Diagnosis Date Noted No Resolved Ambulatory Problems No Additional Past Medical History HISTORY PAST MEDICAL HISTORY SOCIAL HISTORY History reviewed. No pertinent past medical history. Social History Tobacco Use Smoking status: Not on file Smokeless tobacco: Not on file Substance Use Topics Alcohol use: Not on file Drug use: Not on file FAMILY HISTORY No family history on file. SURGICAL HISTORY History reviewed. No pertinent surgical history. REVIEW OF SYSTEMS Review of Systems: Review of Systems All other systems reviewed and are negative. OBJECTIVE Objective: OBGyn Exam Vitals: There is no height or weight on file to calculate BMI. BP: 108/68 Patient's last menstrual period was 12/05/2023. ASSESSMENT & PLAN ICD-10-CM 1. Second trimester Z34.92 2. 15 weeks gestation of Z3A.15 New OB: Patient presents today for 1st time obstetrics appointment with provider. Patient is currently 15w3d . Patients history has been reviewed in great detail including any potential risks. Patient stated she currently has no complaints. Expectations throughout regarding labs, ultrasounds, and appointments have been discussed with the patient in detail. It was reiterated that the patient is to drink 6-8 glasses of water a day, eat 6 small meals a day, do not consume raw or undercooked meat, and stay away from [facility]. Patient has been consulted regarding any further do's and don'ts of . Patient voiced understanding and all questions and concerns were answered. Follow Up: Patient is to return in 4 weeks for routine OB appointment. Documented by Ijeoma Carrera LPN on behalf of: Phil Fierro DO documented in this encounter [facility] History of Present illness Narrative 02-11-2024 Annie Keith MA - 02/11/2024 9:00 AM EST Note Date & Type Note Facility 02-11-2024 History of Presen t illness Narrative Reason for Appointment: Patient ID: Veda Fajardo is a 28 y.o. female who presents [...] meat, and stay away from [facility]. Patient has also been advised to [...] Annie Keith MA documented in this encounter [facility] Evaluation note 11-23-2021 Note Date [...] POSITIVE education handout discharge instructions. given. [employer] Other Evaluation note Note Date & Type Note Facility Evaluation note Diagnosis Missed menses , unspecified gestational age Encounter for supervision of normal first in first trimester 10 weeks gestation of documented in this encounter [facility] Evaluation note Note Date & Type Note Facility Evaluation note Diagnosis Second trimester state, incidental 15 weeks gestation of documented in this encounter [facility] Instructions Note Date & Type Note Facility Instructions Not on filedocumented in this en counter [facility] Summary Purpose Family History Relationship Condition Age at Onset Recorded Date/T kain mother Heart disease Unknown Advance Directives Advance Directive Response Recorded Date/ Time Advance Directives No April 04, 2024 10:31am Chief Complaint and Reason for Visit Chief Complaint Admit Date Cough, chest congestion April 04 10:32am Reason for Visit Admit Date Influenza A April 04, 2024 1 0:32am Additional Source Comments INFORMATION SOURCE (unrecogn ized section and content) DATE CREATED AUTHOR 12/08/2020 [facility] DATE CREATED AUTHOR AUTHOR'S ORGANIZ ATION 03/20/2024 [facility] EPIC REASON FOR VISIT (unrecogniz ed section and content) Reason Comments Amenorrhea Reason Comments Routine Visit Care Teams (unrecognized sec tion and content) 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 Start Date End Date Terrence Mcintyre MD [address] [place] [address] PCP - General Family Medicine 02/11/24 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 Start Date End Date Terrence Mcintyre MD [address] [place] [address] PCP - General Family Medicine 02/11/24 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 Start Date End Date Terrence Mcintyre MD [address] [place] [address] PCP - General Family Medicine 02/11/24 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 Start Date End Date Terrence Mcintyre MD [address] [place] [address] PCP - General Family Medicine 02/11/24 Team Status: Active Member Role Status Dates Terrence Mcintyre DO Primary Care Provider Active Team Status: Inactive Member Role Status Dates Terrence Mcintyre DO Primary Care Provider Active Start: April 04, 2024 End: April 04, 2024 Michell German APRN Attending Provider Active Start: April 04, 2024 End: April 04, 2024 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 [facility]. provides no warranty or guarantee of the accuracy or completeness of information in this document.
[2024-04-20 15:09] LABS: Age Gdln ACOG Testing Note (.); IGP, rfx Aptima HPV ASCU Note (.)
== END 2024-04-15 19:47 | disposition home or self-care (01) ==
LOC: LAB 19:46
PROVIDERS: Visit Provider Physician Assistant
DX: Z01.419 Encounter for gynecological examination (general) (routine) without abnormal findings (principal)
CPT/HCPCS: 88175

== ENCOUNTER 2024-05-04 16:42 | Outpatient (OUT) | payer OTHER, SELFPAY ==
--- OUTSIDE RECORDS SUMMARY | 2024-05-04 16:52 | XMS_ITS | CCD ---
Author Organization [facility] Care Team Providers Care Data Center Operator Name Role Phone DR MECHELLE MOODY Attending Unavailable HEIDY, DR MECHELLE Serrano Consulting Unavailable HEIDY, DR MECHELLE Serrano Admitting Unavailable Marianna Moralez Unavailable Francisco Javier BOONE, Terrence Cross Primary Care Provider Sarah Dowling Primary Care Provider CHESLEA PURVIS Attending Unavailable PHIL FIERRO Attending Unavailable Medications Current Medications Medication Drug Class(es) Dates Sig (Normalized) Sig (Original) azithromycin 250 mg oral tablet (6 sources) Macrolide Antimicrobial Start: 04-04-2024 take 1 tablet by mouth once daily Azithromycin 250 mg tablet Active 250 MG PO Daily April 04, 2024 12:00am Start: 04-03-2024 azithromycin ( Zithromax Z-Casey) 250 MG tablet Indications: Upper respiratory tract infection, unspecified type As directed 6 tablet 04/03/2024 Active Ethinyl Estradiol / Ferrous fumarate / Norethindrone (2 sources) Estrogen Start: 03-05-2022, 1 mg-20 mcg (21)/75 mg (7) per tablet TAKE 1 TABLET DAILY 84 tablet 03/05/2022 Active ondansetron 4 mg oral tablet (3 sources) Serotonin-3 Receptor Antagonist Start: 05-28-2022 take [...] 10 5 April 04, 2024 12:00am Pnv,Calcium 02-Cvck-Pqzwy Acid ( Vitamin Plus Low Iron) 27 mg iron- 1 mg tablet (1 source) Start: 04-04-2024 take 1 tablet by mouth once daily Pnv,Calcium 42-Ayyb-Lvgik Acid ( Vitamin Plus Low Iron) 27 mg iron- 1 mg tablet Active 1 TAB PO Daily April 04, 2024 12:00am Vit-Fe Fumarate-FA (PNV Plus Multivitamin) 27-1 MG tablet (10 sources) Start: 02-11-2024 End: 02-10-2025 take 1 tablet by mouth once daily Vit-Fe Fumarate-FA (PNV Plus Multivitamin) 27-1 MG tablet Indications: , unspecified gestational age Take 1 tablet by mouth Daily 30 tablet 11 02/11/2024 02/10/2025 Active Problems Active Problems Problem Classification Problem Date Documented Date Episodic/Chronic Immunizations and screening for infectious disease (2 sources) Exposure to sexually transmissible disorder; Translations: [Contact with and (suspected) exposure to infections with a predominantly sexual mode of transmission] 04-15-2024 Episodic Influenza (2 sources) Influenza due to Influenza A virus; Translations: [Influenza due to other identified influenza virus with other respiratory manifestations] 04-04-2024 Episodic Menstrual disorders (1 source) Missed period; Translations: [Irregular menstruation, unspecified] 02-11-2024 Chronic Other female genital disorders (2 sources) Vaginal discharge; Translations: [Other specified noninflammatory disorders of vagina] 04-15-2024 Episodic Other and delivery including normal (6 sources) ; Translations: [Encounter for supervision of normal , unspecified, unspecified trimester] 02-11-2024 Episodic Other screening for suspected conditions (not mental disorders or infectious disease) (2 sources) Patient encounter status; Translations: [Encounter for other specified screening] 04-15-2024 Episodic Other upper respiratory infections (1 source) Acute pharyngitis, unspecified; Translations: [ACUTE PHARYNGITIS UNSPECIFIED] Onset: 12-07-2020 Episodic Residual codes; unclassified (1 source) Gestation period, 10 weeks; Translations: [10 weeks gestation of ] 02-11-2024 Episodic Residual codes; unclassified (2 sources) Gestation period, 15 weeks; Translations: [15 weeks gestation of ] 03-16-2024 Episodic Residual codes; unclassified (2 sources) Gestation period, 19 weeks; Translations: [19 weeks gestation of ] 04-15-2024 Episodic Unclassified (3 sources) CONTACT W/AND (SUSP) EXPOS COVID-19; Translations: [CONTACT W/AND (SUSP) EXPOS COVID-19] Onset: 12-07-2020 Past or Other Problems Problem Classification Problem Date Documented Da te Episodic/Chronic Mood disorders (2 sources) Mood disorders Onset: 05-28-2022 05-28-2022 Unclassified (1 source) CONTACT W/AND (SUSP) EXPOS COVID-19; Translations: [CONTACT W/AND (SUSP) EXPOS COVID-19] Onset: 11-28-2020 Unclassified (1 source) Contact with and (suspected) exposure to covid-19; Translations: [Contact with and (suspected) exposure to covid-19] Unclassified (1 source) Contact with and (suspected) exposure to covid-19 Z20.822 Viral infection (1 source) COVID-19 Results Test Name Value Interpretation Reference Range Facility IGP,APTIMA HPV,AGE GDLNon AGE GDLN ACOG TESTING Note . [facility] Comment on above: TESTS RESULT FLAG UN ITS REF RANGE LAB Clinician Provided Cytology Information Source.............Cervix No. of containers..01 ThinPrep Vial Age Algo ACOG Abigail... FLAG LEGEND: L-Low Normal,H-High Normal,LL-Alert Low,HH-Alert High <-Panic Low,>-Panic High,A-Abnormal,AA-Critical Abnormal Performed at: 01 =[facility] [address] [facility] [place] [address] Ania Barnes MD, IGP, RFX APTIMA HPV ASCU Note . [facility] Comment on above: TESTS RESULT FLAG UN ITS REF RANGE LAB DIAGNOSIS: 02 NEGATIVE FOR INTRAEPITHELIAL LESION OR MALIGNANCY. Specimen adequacy: 02 Satisfactory for evaluation. No endocervical component is identified. Performed by: 02 Maria C Butler, Laboratory Aide ([facility]) . 02 Note: Note 02 The Pap smear is a screening test designed to aid in the detection of premalignant and malignant conditions of the uterine cervix. It is not a diagnostic procedure and should not be used as the sole means of detecting cervical cancer. Both false-positive and false-negative reports do occur. Test Methodology: Note 02 This liquid based ThinPrep(R) pap test was screened with the use of an image guided system. . 02 The HPV DNA reflex criteria were not met with this specimen result therefore, no HPV testing was performed. FLAG LEGEND: L-Low Normal,H-High Normal,LL-Alert Low,HH-Alert High <-Panic Low,>-Panic High,A-Abnormal,AA-Critical Abnormal Performed at: [address] [id number] Ania Barnes MD, Performed at: = - [facility] [id number] Finishing Operator: Ania Barnes MD, Phone: [phone] Performed at: [facility] [address] [id number] Finishing Operator: Ania Barnes MD, Phone: [phone] SPATULA-ALONE CERVIX [facility] e RECURRENT VAGINITIS (HTRX)on 04-17-2024 ATOPOBIUM VAGINAE 0 [facility] ATOPOBIUM VAGINAE Not detected [facility] BVAB 2,3 (BACTERIAL VAGINOSIS ASSOCIATED BACTERIA 2, 3); MOBILUNCUS SPP 0 [facility] BVAB 2,3 (BACTERIAL VAGINOSIS ASSOCIATED BACTERIA 2, 3); MOBILUNCUS SPP Not detected [facility] GIL ALBICANS, PARAPSILOSIS, TROPICALIS 0 [facility] GIL ALBICANS, PARAPSILOSIS, TROPICALIS Not detected [facility] GIL GLABRATA 0 [facility] GIL GLABRATA Not detected [facility]I [facility] KRUSEI Not detected [facility] CHLAMYDIA TRACHOMATIS 0 [facility] CHLAMYDIA TRACHOMATIS Not detected [facility] GARDNERELLA VAGINALIS 0 [facility] GARDNERELLA VAGINALIS Not detected [facility] MEGASPHAERA (TYPES 1, 2) 0 [facility] MEGASPHAERA (TYPES 1, 2) Not detected [facility] MYCOPLASMA GENITALIUM 0 [facility] MYCOPLASMA GENITALIUM Not detected [facility] NEISSERIA GONORRHOEAE 0 [facility] NEISSERIA GONORRHOEAE Not detected [facility] TRICHOMONAS VAGINALIS 0 [facility] TRICHOMONAS VAGINALIS Not detected [facility] Urinalysis macro (dipstick) panel (U)Ordered By: Ijeoma Carrera on 04-15-2024 Bilirubin, UA Negative Negative - 4(70) +++ mg/dL [facility] Blood, UA Negative Negative - 50 Jordan/mcL [facility] Clarity, UA Clear [facility] re Color, UA Yellow [facility] Glucose, UA Negative Negative - 1999(110) ++++ mg/dL [facility] Interpretation and review of laboratory results Normal [facility] Ketones, UA Negative Negative - 160(16) ++++ mg/dL [facility] Leukocytes, UA Negative Negative - 500+++ Leanne/mcL [facility] Nitrite, UA Negative Negative - Positive [facility] pH, UA 6.5 5 - 9 [facility] e Protein, UA Negative Negative - 1999(20) ++++ mg/dL [facility] Spec Grav, UA 1.02 1 - 1.03 [facility] Urobilinogen, UA 1.0 0.2 - 12 mg/dL [facility] Health[facility] e ALL CBC WITH AUTO DIFFon BASOPHILS ABSOLUTE AUTO 0.1 [facility] Basophils/100 WBC (Bld) 0.5 % 0.2 - 2.0 % [facility] Eosinophils/100 WBC (Bld) 0.4 % Low 0.9 - 7.0 % [facility] Erythrocyte distribution width (RBC) [Ratio] 12.4 % 11.0 - 15.0 % [facility] Hematocrit (Bld) [Volume fraction] 39.8 % 36.0 - 48.0 % [facility] e Hemoglobin (Bld) [Mass/Vol] 13.5 g/dL 12.0 - 16.0 g/dL [facility] IMMATURE GRANULOCYTES ABS AUTO 0.03 [facility] Immature granulocytes/100 WBC (Bld) 0.3 % 0.0 - 0.5 % [facility] Interpretation and review of laboratory results Abnormal [facility] LYMPHOCYTES ABSOLUTE AUTO 1.8 [facility] Lymphocytes/100 WBC (Bld) 16.2 % Low 20.5 - 60.0 % [facility] MCH (RBC) [Entitic mass] 28.8 pg 26.7 - 34.0 pg [facility] MCHC (RBC) [Mass/Vol] 33.9 g/dL 29.9 - 35.2 g/dL [facility] MCV (RBC) [Entitic vol] 85 fL 81.0 - 99.0 fL [facility] MONOCYTES ABSOLUTE AUTO 0.4 [facility] Healthcare Monocytes/100 WBC (Bld) 3.8 % 1.7 - 12.0 % [facility] Healthcare NEUTROPHILS ABSOLUTE AUTO 8.8 High [facility] Neutrophils/100 WBC (Bld) 78.8 % High 43.0 - 75.0 % [facility] Platelet mean volume (Bld) [Entitic vol] 9 fL Low 9.5 - 13.5 fL [facility] are [facility] EO # 0 [facility] e TBH PLT 351 [facility] e TB RBC 4.68 [facility] e TB WBC 11.2 High [facility] e TBH DRUG SCREEN RAPID (URINE )on 02-14-2024 AMPHETAMINE SCREEN URINE Negative NEGATIVE [facility] BARBITURATES SCREEN URINE Negative NEGATIVE [facility] BENZODIAZEPINES SCREEN URINE Negative NEGATIVE [facility] BUPRENORPHINE SCREEN URINE Negative NEGATIVE [facility] Comment on above: DRUG CLASS TEST SYST [...] 300 ng/mL CANNABINOID SCREEN URINE Negative NEGATIVE [facility] COCAINE SCREEN URINE Negative NEGATIVE [facility] METHADONE SCREEN URINE Negative NEGATIVE [facility] METHAMPHETAMINES SCREEN URINE Negative NEGATIVE [facility] OPIATE SCREEN URINE Negative NEGATIVE [facility] OXYCODONE SCREEN URINE Negative NEGATIVE [facility] PHENCYCLIDINE SCREEN URINE Negative NEGATIVE [facility] TRICYCLIC ANTIDEPRESSANT URINE Negative NEGATIVE [facility] e HCG ( test) Ql (U)o n 02-11-2024 Interpretation and review of laboratory results Abnormal [facility] Preg Test, Ur Positive Negative [facility] Urinalysis macro (dipstick) panel (U)on 02-11-2024 Bilirubin, UA Negative Negative - 4(70) +++ mg/dL [facility] Blood, UA Negative Negative - 50 Jordan/mcL [facility] Clarity, UA Clear [facility] Health[facility] re Color, UA Yellow [facility] Glucose, UA Negative Negative - 1999(110) ++++ mg/dL [facility] Interpretation and review of laboratory results Normal [facility] Ketones, UA Negative Negative - 160(16) ++++ mg/dL [facility] Leukocytes, UA Negative Negative - 500+++ Leanne/mcL [facility] Nitrite, UA Negative Negative - Positive [facility] pH, UA 6 5 - 9 [facility] Health[facility] Protein, UA Negative Negative - 1999(20) ++++ mg/dL [facility] Spec Grav, UA 1.025 1 - 1.03 [facility] care Urobilinogen, UA 0.2 0.2 - 12 mg/dL [facility] SARS-CoV-2 (COVID-19) RNA NA A+probe Ql (Resp)on 11-23-2021 SARS-CoV-2 (COVID-19) RNA RASHEED+probe Ql (Unsp spec) Positive [email or web address]on [facility]-03 SARS-CoV-2 (COVID-19) RNA RASHEED+probe Ql (Unsp spec) Not detected Normal NOT DETECTED [facility] Comment on above: Result Comment: This test is not yet approved or cleared by the [place] FDA. When there are no FDA-approved or cleared tests available, and other criteria are met, FDA can make tests available under an emergency access mechanism called an Emergency Use Authorization (EUA). The EUA for this test is supported by the [employer] of Health and Human Service's (HHS's) declaration [...] consistent with SARS-CoV-2. Performed By: #### [facility] #### [facility] Laboratory [address] [place] [address] Dr. Kaela Stewart Vital Signs Date Time Vital Sign Value Performing Clinician Facility 04-15-2024 16:36-0500 Body weight 88.63 kg Chelsea DIAZ Work Phone: [facility] 04-15-2024 16:36-0500 Diastolic blood pressure 66 mm[Hg] Chelsea DIAZ Work Phone: [facility] 04-15-2024 16:36-0500 Systolic blood pressure 110 mm[Hg] Chelsea DIAZ Work Phone: [facility] 04-04-2024 10:57-0500 Body height 157.48 cm [facility] 04-04-2024 10:57-0500 Body mass index (BMI) [Ratio] 35.4 kg/m2 [facility] 04-04-2024 10:57-0500 Body temperature 99.8 [degF] [facility] 04-04-2024 10:57-0500 Body weight 87.99 kg [facility] 04-04-2024 10:57-0500 Diastolic blood pressure 71 mm[Hg] [facility] 04-04-2024 10:57-0500 Heart rate 118 /min [facility] 04-04-2024 10:57-0500 Respiratory rate 16 /min [facility] 04-04-2024 10:57-0500 SaO2% (BldA) [Mass fraction] 98 % [facility] 04-04-2024 10:57-0500 Systolic blood pressure 101 mm[Hg] [facility] 03-16-2024 16:35-0500 Body weight 88.18 kg Phil Sri DO Work Phone: [facility] 03-16-2024 16:35-0500 Diastolic blood pressure 68 mm[Hg] Phil Sri DO Work Phone: [facility] 03-16-2024 16:35-0500 Systolic blood pressure 108 mm[Hg] Phil Sri DO Work Phone: [facility] 02-11-2024 09:32-0500 Body weight 86.18 kg [facility] Nurse [facility] 02-11-2024 09:32-0500 Diastolic blood pressure 70 mm[Hg] [facility] Nurse [facility] 02-11-2024 09:32-0500 Systolic blood pressure 110 mm[Hg] [facility] Nurse [facility] 11-23-2021 14:10-0400 Body height 154.94 cm Marianna Moralez Other [email or web address] Other 11-23-2021 14:10-0400 Body mass index (BMI) [Ratio] 34.01 kg/m2 Marianna Moralez Other [email or web address] Other 11-23-2021 14:10-0400 Body temperature 99.8 [degF] Marianna Moralez Other [email or web address] Other 11-23-2021 14:10-0400 Body weight 81.65 kg Marianna Moralez Other [email or web address] Other 11-23-2021 14:10-0400 Respiratory rate 18 /min Marianna Moralez Other [email or web address] Other 11-23-2021 14:10-0400 SaO2% (BldA) [Mass fraction] 97 % Marianna Moralez Other [email or web address] Other Encounters Encounter Date Encounter Type Care Provider Facility Start: 04-15-2024 End: 04-15-2024 ambulatory CHELSEA PURVIS Not Available Start: 04-15-2024 End: 04-15-2024 Patient encounter procedure Chelsea Purvis PA Work Phone: [facility] Work Phone: Start: 04-15-2024 End: 04-15-2024 Periodic preventive med est patient 18-39 yrs Chelsea DIAZ Work Phone: [facility] Comment on above: Well woman exam with routine gynecological exam; Second trimester ; Vaginal discharge; STD exposure; 19 weeks gestation of ; Screening, , for anatomic survey Start: 04-15-2024 End: 04-15-2024 Bamboo flowsheet Chelsea DIAZ Work Phone: [facility] Start: 04-15-2024 End: 04-20-2024 Bamboo flowsheet Chelsea DIAZ Work Phone: [facility] Start: 04-15-2024 End: 04-20-2024 [facility]inis[facility] Result Encounter Chelsea DIAZ Work Phone: [facility] Unsolicited Start: 04-15-2024 End: 04-17-2024 External Result Encounter Chelsea DIAZ Work Phone: [facility] Unsolicited Start: 04-14-2024 End: 04-15-2024 Telephone encounter Sarah Queen MANAGER STYLE-MEDICAL RESEARCH ASSISTANT Work Phone: [facility] Start: 04-04-2024 End: 04-04-2024 ambulatory [facility] Work Phone: Start: 04-04-2024 End: 04-04-2024 Patient encounter procedure [facility] Work Phone: Start: 03-16-2024 [...] OB Comment on above: GA: 10w4d Start: 09-10-2023 End: 09-11-2023 Telephone encounter Sarah Queen APRN-MEDICAL RESEARCH ASSISTANT Work Phone: [facility] Start: 11-23-2021 End: 11-23-2021 ambulatory Marianna Moralez Other [email or web address] Other Start: 11-23-2021 Office outpatient ne w 30 minutes Marianna Moralez [facility] Start: 11-28-2020 End: 11-28-[address] MECHELLE MOODY Facility: Procedures Date Procedure Procedure Detail Performing Clinician Start: 04-15-2024 RECURRENT VAGINITIS (HTRX) Chelsea DIAZ Work Phone: Start: 04-15-2024 Urnls dip stick/tabl et rgnt non-auto w/o micrscp Chelsea DIAZ Work Phone: Start: 04-15-2024 IGP,APTIMA HPV,AGE GDLN Chelsea DIAZ Work Phone: Start: 02-14-2024 ALL CBC WITH AUTO DIFF Phil Sri DO Work Phone: Start: 02-14-2024 TB DRUG SCREEN RAPI D (URINE) Phil Sri DO Work Phone: Start: 02-11-2024 End: 02-11-2024 Urnls dip stick/tablet rgnt non-auto w/o micrscp Phil Sri DO Work Phone: Start: 05-28-2022 Adult depression scr eening assessment Sarah Queen MANAGER [facility] Work Phone: Start: 12-15-2018 Microscopic observat ion [Identifier] in Cervix by Cyto stain Sarah Queen MANAGER [facility] Work Phone: Plan of Treatment Date Care Activity Detail Author Start: 06-12-2024 End: 06-12-2024 Patient encounter procedure 06/12/2024 9:40 AM EDT Office Visit [facility] [address] [place] [address] Sarah Queen, MANAGER [facility] [address] [place] [address] [facility] Start: 05-11-2024 End: 05-11-2024 Patient encounter procedure 05/11/2024 3:40 PM EDT Routine [facility] [address] [place] [phone] Chelsea Purvis PA [address] [place] [address] [facility] Start: 05-11-2024 End: 05-11-2024 Professional / ancillary services management 05/11/2024 2:30 PM EDT Ancillary Procedure [facility] [address] [place] [id number] [facility] Start: 04-15-2024 End: 04-15-2024 Patient encounter procedure 04/15/2024 3:50 PM EST Routine [facility] [address] [place] [phone] Chelsea Purvis, PA [address] [place] [address] [facility] Start: 04-15-2024 End: 10-13-2024 Alpha fetoprotein, maternal Alpha fetoprotein, maternal Lab Routine Second trimester 19 weeks gestation of Expected: 04/15/2024 (Approximate), Expires: 10/13/2024 [facility] Comment on above: Expected: 04/15/2024 (Approximate), Expires: 10/13/2024 Start: 04-15-2024 End: 04-15-2025 US for US OB 14+ weeks anatomy scan Imaging Routine Screening, , for anatomic survey Expected: 04/15/2024, Expires: 04/15/2025 [facility] Comment on above: Expected: 04/15/2024 , Expires: 04/15/2025 Start: 03-16-2024 End: 03-16-2024 Patient encounter procedure 03/16/2024 3:50 PM EST Routine [facility] [address] [place] [phone] Phil Fierro, DO [address] [place] [address] [facility] Start: 02-11-2024 End: 02-10-2025 ABO/Rh ABO/Rh Lab Routine Missed menses , unspecified gestational age Expected: 02/11/2024 (Approximate), Expires: 02/10/2025 [facility] Comment on above: Expected: 02/11/2024 (Approximate), Expires: 02/10/2025 Start: 02-11-2024 End: 02-10-2025 Blood type and Indirect antibody screen panel - Blood Type and screen Lab Routine Missed menses , unspecified gestational age Expected: 02/11/2024 (Approximate), Expires: 02/10/2025 [facility] Work Phone: Comment on above: Expected: 02/11/2024 (Approximate), Expires: 02/10/2025 Start: 02-11-2024 End: 02-10-2025 Drugs of abuse panel - Urine by Screen method Rapid drug screen, urine Lab Routine , unspecified gestational age Encounter for supervision of normal first in first trimester Expected: 02/11/2024 (Approximate), Expires: 02/10/2025 [facility] Comment on above: Expected: 02/11/2024 (Approximate), Expires: 02/10/2025 Start: 02-11-2024 End: 02-10-2025 US Pelvis transvaginal US OB transvaginal Imaging Routine Missed menses Expected: 02/11/2024 (Approximate), Expires: 02/10/2025 [facility] Comment on above: Expected: 02/11/2024 (Approximate), Expires: 02/10/2025 Start: 11-08-2023 End: 11-08-2023 Patient encounter procedure 11/08/2023 10:00 AM EDT Office Visit [facility] [address] [place] [address] Sarah Queen, MANAGER STYLE-MEDICAL RESEARCH ASSISTANT [address] [place] [address] [facility] Start: 05-29-2023 Adult BMI Screening Adult BMI Screen ing [facility] Start: 05-29-2023 Depression Screening Depression Scre ening [facility] Start: 05-29-2023 Tobacco Screening Tobacco Screening [facility] Start: 12-15-2021 Screening for malign ant neoplasm of cervix Pap Smear [facility] Start: 11-22-2020 DTaP,Tdap and Td Vaccines (7 - Td or Tdap) DTaP,Tdap and Td Vaccines (7 - Td or Tdap) [facility] Bacteria identified in Urine by Culture Urine culture Microbiology Routine Missed menses Ordered: 02/11/2024 [facility] Comment on above: Ordered: 02/11/2024 CBC W Auto Different ial panel - Blood CBC and differential Lab Routine Missed menses , unspecified gestational age Ordered: 02/11/2024 [facility] Comment on above: Ordered: 02/11/2024 CHLAMYDIA TRACHOMATI S (GENITO/STI) CHLAMYDIA TRACHOMATIS (GENITO/STI) Lab Routine STD exposure Ordered: 04/15/2024 [facility] Comment on above: Ordered: 04/15/2024 Cytology Cervical or vaginal smear or scraping study Pap Smear Pathology and Cytology Routine Well woman exam with routine gynecological exam Ordered: 04/15/2024 [facility] Comment on above: Ordered: 04/15/2024 Hemoglobin A1c/Hemoglobin.total in Blood Hemoglobin A1c Lab Routine Missed menses , unspecified gestational age Ordered: 02/11/2024 [facility] Comment on above: Ordered: 02/11/2024 Hepatitis B virus surface Ag [Presence] in Serum or Plasma by Immunoassay Hepatitis B surface antigen Lab Routine Missed menses , unspecified gestational age Ordered: 02/11/2024 [facility] Comment on above: Ordered: 02/11/2024 Hepatitis C virus Ab [Presence] in Serum or Plasma by Immunoassay Hepatitis C antibody Lab Routine Missed menses , unspecified gestational age Ordered: 02/11/2024 [facility] Comment on above: Ordered: 02/11/2024 HIV-1/HIV-2 antigen/antibody combination immunoassay HIV-1 and HIV-2 antibodies Lab Routine Missed menses , unspecified gestational age Ordered: 02/11/2024 [facility] Comment on above: Ordered: 02/11/2024 Neisseria gonorrhoea e DNA [Presence] in Unspecified specimen by RASHEED with probe detection Neisseria gonorrhea DNA probe, direct Lab Routine STD exposure Ordered: 04/15/2024 [facility] Comment on above: Ordered: 04/15/2024 Reagin Ab [Presence] in Serum by RPR RPR Lab Routine Missed menses , unspecified gestational age Ordered: 02/11/2024 [facility] Comment on above: Ordered: 02/11/2024 Rubella antibody, IgG Rubella an tibody, IgG Lab Routine Missed menses , unspecified gestational age Ordered: 02/11/2024 [facility] Comment on above: Ordered: 02/11/2024 SURESWAB(R) ADVANCED VAGINITIS PLUS, TMA SURESWAB(R) ADVANCED VAGINITIS PLUS, TMA Pathology and Cytology Routine Vaginal discharge Ordered: 04/15/2024 [facility] Work Phone: Comment on above: Ordered: 04/15/2024 Immunizations Immunization Date Immunization Notes Care Provider Werner cuba 01-10-2021 Influenza, injectabl e, Madin Sinclair Canine Kidney, preservative free, quadrivalent Sarah Queen MANAGER STYLE-MEDICAL RESEARCH ASSISTANT Work Phone: [facility] 11-22-2015 meningococcal oligosaccharide (groups A, C, Y and W-135) diphtheria toxoid conjugate vaccine (MCV4O) [facility] Work Phone: [facility] 11-22-2010 tetanus toxoid, redu john diphtheria toxoid, and acellular pertussis vaccine, [facility] 10-20-2003 DTaP-hepatitis B and poliovirus vaccine [facility] Work Phone: [facility] 10-20-2003 measles, mumps and rubella virus vaccine [facility] Work Phone: [facility] 10-24-1998 diphtheria, tetanus toxoids and acellular pertussis vaccine, unspecified formulation [facility] Work Phone: [facility] 10-24-1998 haemophilus influenz ae type b vaccine, conjugate unspecified formulation [facility] Work Phone: [facility] 10-24-1998 measles, mumps and rubella virus vaccine [facility] Work Phone: [facility] 06-08-1998 diphtheria, tetanus toxoids and acellular pertussis vaccine, unspecified formulation [facility] Work Phone: [facility] 06-08-1998 haemophilus influenz ae type b vaccine, conjugate unspecified formulation [facility] Work Phone: [facility] 06-08-1998 poliovirus vaccine, unspecified formulation [facility] Work Phone: [facility] 04-01-1998 diphtheria, tetanus toxoids and acellular pertussis vaccine, unspecified formulation [facility] Work Phone: [facility] 04-01-1998 haemophilus influenz ae type b vaccine, conjugate unspecified formulation Sarah Bernice MANAGER STYLE-MEDICAL RESEARCH ASSISTANT Work Phone: [facility] 04-01-1998 hepatitis B vaccine, pediatric or pediatric/adolescent dosage Sarah Bernice MANAGER STYLE-MEDICAL RESEARCH ASSISTANT Work Phone: [facility] 04-01-1998 poliovirus vaccine, unspecified formulation Sarah Bernice MANAGER STYLE-MEDICAL RESEARCH ASSISTANT Work Phone: [facility] 01-12-1998 diphtheria, tetanus toxoids and acellular pertussis vaccine, unspecified formulation Sarah Bernice MANAGER STYLE-MEDICAL RESEARCH ASSISTANT Work Phone: [facility] 01-12-1998 haemophilus influenz ae type b vaccine, conjugate unspecified formulation Sarah Bernice MANAGER STYLE-MEDICAL RESEARCH ASSISTANT Work Phone: [facility] 01-12-1998 poliovirus vaccine, unspecified formulation Sarah Bernice MANAGER STYLE-MEDICAL RESEARCH ASSISTANT Work Phone: [facility] 1997 hepatitis B vaccine, pediatric or pediatric/adolescent dosage Sarah Bernice MANAGER STYLE-MEDICAL RESEARCH ASSISTANT Work Phone: [facility] 1997 hepatitis B vaccine, pediatric or pediatric/adolescent dosage Sarah Bernice MANAGER STYLE-MEDICAL RESEARCH ASSISTANT Work Phone: [facility] Payers Date Payer Category Payer Private Health Insurance [employer] [place] [employer] [id number] 2024 Medicaid [place]ICAID [place] [id number] 2024 Medicaid [id number] 2017 [employer] [place] [employer] - PPO ANTHEM [id number] 2017 Unknown KWASI LACKEY (PPO) [id number] 2017-Present [phone] [address] [place] [address] [id number] 1997 Unknown [id number] 1997 Unknown [id number] 1997 Unknown [id number] 1997 Unknown [id number] 1959 Unknown [id number] Social History Date Type Detail Facility Start: 08-13-2018 End: 05-28-2022 Sex Assigned At [facility] [employer] [facility] Start: 12-13-2023 [facility] Start: 1997 Sex assigned at Not on file [facility] Start: 05-28-2022 End: 04-04-2024 Tobacco smoking status NHIS Never smoked tobacco (finding) [facility] Start: 10-07-2014 End: 04-04-2024 Sex Female (finding) [facility] Start: 1995 Sex Assigned At Female [facility] Start: 05-28-2022 Tobacco use and exposure Smokeless tobacco non-user [facility] Start: 05-28-2022 Alcoholic beverage intake Ex-drinker (finding) [facility] Start: 08-13-2018 End: 05-28-2022 History of Social function [facility] Adolescent depressio n screening assessment 0 [facility] Clinical Notes 11-23-2021 to 04-15-2024 EMILY Villalobos - 04/15/2024 3:50 PM ESTTelephone Encounter - [facility] 10:08 AM ESTTelephone Encounter - [facility] - 04/14/2024 10:08 AM EST Note Date & Type Note Facility 04-15-2024 History of Presen t illness Narrative Reason for Appointment: Patient ID: Veda Fajardo is a 28 y.o. female who presents for Routine Visit, Well Women Visit, and STI Screening Patient presents today for Return OB appointment. MEDICATIONS Current Outpatient Medications Medication Instructions azithromycin (Zithromax Z-Casey) 250 MG tablet As directed Vit-Fe Fumarate-FA (PNV Plus Multivitamin) 27-1 MG [...] systems reviewed and are negative. OBJECTIVE Objective: Physical Exam Constitutional: Appearance: Normal appearance. She is well-developed. Genitourinary: Vulva normal. Cardiovascular: Rate and Rhythm: Normal rate and regular rhythm. Pulmonary: Effort: Pulmonary effort is normal. Breath sounds: Normal breath sounds. Abdominal: General: Bowel sounds are normal. There is no distension. Palpations: Abdomen is soft. Tenderness: There is no abdominal tenderness. There is no guarding or rebound. Musculoskeletal: General: No swelling. Normal range of motion. Right lower leg: No edema. Left lower leg: No edema. Neurological: Mental Status: She is alert and oriented to person, place, and time. Skin: General: Skin is warm and dry. Psychiatric: Mood and Affect: Mood normal. Behavior: Behavior normal. Vitals and nursing note reviewed. Exam conducted with a practicing md anesthesiologist present. Vitals: There is no height or weight on file to calculate BMI. BP: 110/66 Patient's last menstrual period was 12/05/2023. ASSESSMENT & PLAN ICD-10-CM 1. Well woman exam with routine gynecological exam Z01.419 Pap Smear 2. Second trimester Z34.92 Alpha fetoprotein, maternal Alpha fetoprotein, maternal 3. Vaginal discharge N89.8 SURESWAB(R) ADVANCED VAGINITIS PLUS, TMA 4. STD exposure Z20.2 CHLAMYDIA TRACHOMATIS (GENITO/STI) Neisseria gonorrhea DNA probe, direct 5. 19 weeks gestation of Z3A.19 POCT urinalysis dipstick manually resulted Alpha fetoprotein, maternal Alpha fetoprotein, maternal 6. Screening, , for anatomic survey Z36.89 US OB 14+ weeks anatomy scan Return OB/Annual Exam: Patient presents today for an annual exam/routine obstetrics appointment. Patient is currently 19w5d . Patient is doing well and states she has no complaints. Pap/cultures was obtained without difficulty and patient was given msAFP order to have obtained. Orders Placed This Encounter Procedures US OB 14+ weeks anatomy scan CHLAMYDIA TRACHOMATIS (GENITO/STI) Neisseria gonorrhea DNA probe, direct Alpha fetoprotein, maternal POCT urinalysis dipstick manually resulted Follow Up: Patient is to return to our office in 4 weeks for routine OB appointment Documented by Monse Arias LPN on behalf of: EMILY Villalobos documented in this encounter [facility] 04-14-2024 Miscellaneous Notes Formattin g of this note might be different from the original. set up establish care with provider of choice LM on VM documented in this encounter [facility] 04-14-2024 Telephone encount er Note set up [facility]ount er Note LM on VM [facility] 04-04[facility]2024 Evaluation note Diagnosis Onset Date Resolution Influenza A acute April 04, 2024 10:32am [facility] Work Phone: 1(285) 524-931101-13-2025 History of Present illness Narrative* Ijeoma Carrera LPN - 03/16/2024 3:50 PM EST Reason for Appointment: Patient ID: Veda Fajardo [...] or undercooked meat, and stay away from [facility]. Patient has been consulted regarding any further do's and don'tsof . Patient voiced understanding and all questions and concerns were answered. Follow Up: Patient is to return in 4 weeks for routine OB appointment. Documented by Ijeoma Carrera LPN on behalf of: Phil Fierro DO documented in [facility] [id number] History of Present illness Narrative* Annie Keith MA - 02/11/2024 9:00 AM EST Reason for Appointment: Patient ID: Veda Fajardo is a 28 y.o. female who presents for Amenorrhea Patient presents today for a Nurse OB Intake appointment. Patient is 10w4d with a Estimated Date ofDelivery: 09/04/24 OB History Para Term AB Living [...] drink 6-8 glasses of water a day, eatno raw or undercooked meat, and stay away from [facility]. Patient has also been advised to not change litter boxes and eat 6 small meals a day. Patient has been consulted regarding the do's and don'ts ofpregnancy. Patient was given labs and all questions [...] by: Annie Keith MA documented in this encounterSaint [facility] [id number] Miscellaneous Notes* Telephone Encounter - Lupe Stacy - 09/10/2023 10:02 AM EDT Reschedule 10/31 appt * Telephone Encounter - Lupedewey Stacy - 09/10/2023 10:02 AM EDT LM on VM * [facility]10[facility]23 10:02 AM EDT [facility] Note* Telephone Encounter - Lupe Stacy - 09/10/2023 10:02 AM EDT Reschedule 10/31 appt [facility]07-09-2024 Telephone encounter Note* Telephone Encounter - Lupedewey Stacy - 09/10/2023 10:02 AM EDT LM on VM [facility]07-09-2024 Telephone encounter Note* Telephone Encounter - Lupedewey Stacy - 09/10/2023 10:02 AM EDT Rescheduled [facility]09-22-2022 Evaluation note* Encounter Date Diagnosis Assessment Notes Treatment Notes Treatment Clinical Notes Nov, Contact with and (suspected) exposure to covid-19 (ICD-10 - Z20.822) Nov, COVID-19 (ICD-10 - U07.1) Today you tested positive for the COVID virus. This mean you need to follow all CDC quarantine guidelines found at coronavirus.[email or web address].g ov. It is important to rest, increase fluids, and stay at home. Recommend contacting primary care provider and discussing best course of action if you have chronic health conditions. COVID POSITIVE education handout discharge instructions. given. [email or web address] Other Evaluation note* Diagnosis Missed menses , unspecified gestational age Encounter for supervision of normal first in first trimester 10 weeks gestation of [facility] Diagnosis Second trimester state, incidental 15 weeks gestation of [facility]* Diagnosis Well woman exam with routine gynecological exam Routine gynecological examination Second trimester state, incidental Vaginal discharge Leukorrhea, not specified as infective STD exposure 19 weeks gestation of Screening, , for anatomic survey Encounter for anatomic survey documented in this encounter [facility] HealthcareInstructionsNot on filedocumented in this encounterProPremier [facility] SystemInstructionsNot on filedocumented in this encounterProPremier [facility] Summary Purpose Family History Relationship Condition [...] content) DATE CREATED AUTHOR 12/08/2020 [facility] DATE CREATED AUTHOR AUTHOR'S ORGANIZ ATION 04/17/2024 [facility] EPIC REASON FOR VISIT (unrecogniz ed section and content) Reason Comments Amenorrhea Reason Comments Routine Visit Reason Comments Routine Visit Well Women Visit STI Screening Care Teams (unrecognized sec tion and content) Data Center Operator Relationship Specialty Start Date End Date Terrence Mcintyre MD [address] [place] [address] PCP - General Family Medicine 02/11/24 Data Center Operator Relationship Specialty Start Date End Date Terrence Mcintyre MD [address] [place] [address] PCP - General Family Medicine 02/11/24 Data Center Operator Relationship Specialty Start Date End Date Terrence Mcintyre MD [address] [place] [address] PCP - General Family Medicine 02/11/24 Data Center Operator Relationship Specialty Start Date End Date Terrence Mcintyre MD [address] [place] [address] PCP - General Family Medicine 02/11/24 Team Status: Active Member Role Status Dates Terrence Mcintyre DO Primary Care Provider Active Team Status: Inactive Member Role Status Dates Terrence Mcintyre DO Primary Care Provider Active Start: April 04, 2024 End: April 04, 2024 Michell German APRN Attending Provider Active Start: April 04, 2024 End: April 04, 2024 Data Center Operator Relationship Specialty Start Date End Date Sarah Queen APRN-MEDICAL RESEARCH ASSISTANT [address] [place] [address] PCP - General Internal Medicine 09/03/23 Data Center Operator Relationship Specialty Start Date End Date Terrence Mcintyre MD [address] [place] [address] PCP - General Family Medicine 02/11/24 Data Center Operator Relationship Specialty Start Date End Date Sarah Queen, ESCOBAR-MEDICAL RESEARCH ASSISTANT [address] [place] [address] PCP - General Internal Medicine 09/03/23 Goals [...] BE BASED ON THE PRIMARY CLINICAL RECORDS. [employer] provides no warranty or guarantee of the accuracy or completeness of information in this document.
[2024-05-07 00:07] LABS: AFP Value 66.2 ng/mL (.); Gest. Age on Collection Date 22.4 weeks (.); Gestat. Age Based On Ultrasound (.); Insulin Dep Diabetes No (.); Maternal Age At EDD 26.9 yr (.); OSBR Risk 1 IN 10000 (.); Results Report (.)
== END 2024-05-04 16:43 | disposition home or self-care (01) ==
PROVIDERS: PCP Family Medicine; Visit Provider Physician Assistant
DX: Z34.92 Encounter for supervision of normal pregnancy, unspecified, second trimester (principal); Z3A.19 19 weeks gestation of pregnancy
CPT/HCPCS: 36415; 82105

== ENCOUNTER 2024-05-22 12:38 | Outpatient (OUT) | payer OTHER, SELFPAY ==
--- OUTSIDE RECORDS SUMMARY | 2024-05-22 13:02 | XMS_ITS | CCD ---
Author Organization [facility] Inform ion Partnership [facility] Care Team Providers Care Veterinary Medicine Teacher Name Role Phone DR MECHELLE MOODY Attending Unavailable HEIDY, DR MECHELLE Serrano Consulting Unavailable DR MECHELLE MOODY Admitting Unavailable Marianna Moralez Unavailable Terrence Mcintyre MD Primary Care Provider [phone] Sarah Dowling Primary Care Provider CHELSEA PURVIS Attending Unavailable CHELSEA PURVIS Referring Unavailable CHELSEA PURVIS Attending Unavailable PHIL FIERRO Attending Unavailable Medications Current Medications Medication Drug Class(es) Dates Sig (Normalized) Sig (Original) azithromycin 250 mg oral tablet (7 sources) Macrolide Antimicrobial Start: 04-04-2024 take 1 [...] 10 5 April 04, 2024 12:00am Pnv,Calcium 42-Lwzy-Mjwoa Acid ( Vitamin Plus Low Iron) 27 mg iron- 1 mg tablet (1 source) Start: 04-04-2024 take 1 tablet by mouth once daily Pnv,Calcium 86-Qdrl-Kvbbt Acid ( Vitamin Plus Low Iron) 27 mg iron- 1 mg tablet Active 1 TAB PO Daily April 04, 2024 12:00am Vit-Fe Fumarate-FA (PNV Plus Multivitamin) 27-1 MG tablet (11 sources) Start: 04-23-2024 End: 04-23-2025 take 1 tablet by mouth once daily Vit-Fe Fumarate-FA (PNV Plus Multivitamin) 27-1 MG tablet Indications: , unspecified gestational age Take 1 tablet by mouth Daily 30 tablet 11 04/23/2024 04/23/2025 Active Start: 02-11-2024 End: 02-10-2025 take 1 tablet [...] Test Name Value Interpretation Reference Range Facility US OB 14+ WEEKS ANATOMY SCAN on 05-11-2024 US OB 14+ WEEKS ANATOMY SCAN EXAM: US OB 14+ WEEKS ANATOMY SCAN HISTORY: anatomy. COMPARISON: None available. TECHNIQUE: Two-dimensional transabdominal grayscale ultrasound imaging of the pelvis was performed. FINDINGS: Gestation: Single Presentation: Transverse Cardiac Activity: 140 beats per minute Placental Location: Posterior/fundal with no sonographic abnormalities identified. Distance from Placental Tip to Cervix: 5.4 cm Cervical Length: 5.3 cm Amniotic Fluid: Appears adequate MEASUREMENTS: BPD: 6.1 cm EGA: 24 weeks 5 days HC: 22.4 cm EGA: 24 weeks 3 days AC: 20.4 cm EGA: 25 weeks 0 days FL: 4.4 cm EGA: 24 weeks 4 days HC/AC Ratio: 1.10 The gestational age by today's ultrasound is 24 weeks 5 days (+/- 12 days gestation). Estimated Weight: 735 grams, +/- 110 grams ( 1 lb 10 oz). Weight Percentile for gestational age: 95 % ANATOMY C-Spine: Unremarkable T-Spine: Unremarkable L-Spine: Unremarkable Sacrum: Unremarkable Four Chamber Heart: Unremarkable LVOT: Unremarkable RVOT: Unremarkable Stomach: Unremarkable Kidneys: Unremarkable Bladder: Unremarkable Diaphragm: Unremarkable Cord insertion: Unremarkable Cord vessels: Three Lateral Ventricles: Unremarkable Cerebellum: Unremarkable Cisterna Magna: Unremarkable Posterior Fossa: Unremarkable Right Femur: Unremarkable Left Femur: Unremarkable Right Tib/Fib: Unremarkable Left Tib/Fib: Unremarkable Right Rad/Ulnar: Unremarkable Left Rad/Ulnar: Unremarkable Right Humerus: Unremarkable Left Humerus: Unremarkable Nose/Lips: Unremarkable Profile: Unremarkable Orbits: Unremarkable IMPRESSION: 1. Single, live intrauterine gestation 23 weeks, 3 days by LMP. Today's ultrasound measurements correlate with a gestational age of 24 weeks 5 days. Estimated weight is 735 grams, +/- 110 grams ( 1 lb 10 oz) which correlates to 95 %. KYLEIGH is 08/26/2022. 2. measurements are large for gestational age. 3. Unremarkable ultrasound of the anatomy. Electronically Signed:Electronicall y signed by SUNNY MARIN II, MD, PHD at 13-May-2024 08:36:44 AM [facility] Normal Not Available Comment on above: Order Comment: US OB ANATOMY SINGLE W US OB CERVICAL LENGTH Estimated Date of Delivery: 09/04/24 Gestational Age as of 04/15/2024: 19w5d AFP, SERUM, OPEN SPINA BIFID Aon 05-07-2024 AFP MOM 1.00 . [facility] AFP VALUE 66.2 ng/mL . [facility] COMMENT: Comment . [facility] Comment on above: Fiona White , Ph.D., [facility] Director References: Available Upon Request. Multiples Of Median Cutoffs For AFP Elevations Ramírez 2.5 Black 2.8 IDD 2.0 Twins 4.5 Abbreviation Definitions IDD - Insulin Dep Diabetes OSBR - Open Spina Bifida Risk For further inquiries contact [facility] Services at [phone]. This test was developed and its performance characteristics determined by [facility]. It has not been cleared or approved by the Food and Drug Administration. Performed at: [facility] [address] [place], [place] [id number] Dispensary Attendant: Darlene Snyder Formerly [facility], Phone: [phone] GEST. AGE ON COLLECTION DATE 22.4 . weeks [facility] GESTAT. AGE BASED ON Ultrasound . [facility] Comment on above: 19.7 on 04/15/2024 Recalculations are not recommended when gestational dating by LMP and ultrasound are within 10 days. INSULIN DEP DIABETES No . [facility] INTERPRETATION Comment . [facility] annamaria Comment on above: Interpretation: Scre en Negative This result is screen negative for OSB. The AFP MoM calculated is based on the gestational age provided. MS-AFP can identify up to 80% of open neural tube defects. Closed neural tube defects and some open defects may not be detected by this test. This test does not screen for Down Syndrome or Trisomy 18. If screening for Down Syndrome or Trisomy 18 is desired, contact Genetic Customer Services to discuss available options. The [employer] recommends amniocentesis be offered to women age 35 and older. [age]IGH [age] [facility] MULTIPLE GESTATION No . [facility] H ealthcare [place] [address] [place] [id number] . [facility] . [facility] Stream Tags e RESULTS Report . [facility] Health[facility] e TEST RESULTS: Negative . [facility] Health care WEIGHT 195 . lbs [facility] N N ULTRASOUND [id number] [phone] 19 N 1 195 N N N N N White/ [facility] Mirificecar e IGP,APTIMA HPV,AGE GDLNon AGE GDLN ACOG TESTING Note . [facility] Comment on above: TESTS RESULT FLAG UN ITS REF RANGE LAB Clinician Provided Cytology Information Source.............Cervix No. of containers..01 ThinPrep Vial Age Xuan Hayes... FLAG LEGEND: L-Low Normal,H-High Normal,LL-Alert Low,HH-Alert High <-Panic Low,>-Panic High,A-Abnormal,AA-Critical Abnormal Performed at: 01 =G [address] [id number] Ania Barnes MD, IGP, RFX APTIMA HPV ASCU Note . [facility] Comment on above: TESTS RESULT FLAG UN ITS REF RANGE LAB DIAGNOSIS: 02 NEGATIVE FOR INTRAEPITHELIAL LESION OR MALIGNANCY. Specimen adequacy: 02 Satisfactory for evaluation. No endocervical component is identified. Performed by: 02 Maria C Butler Gericare Aide Teacher ([facility]) . 02 Note: Note 02 The [...] <-Panic Low,>-Panic High,A-Abnormal,AA-Critical Abnormal Performed at: [address] [address] Ania Barnes MD, Performed at: = - [address] [id number] Dispensary Attendant: Ania Barnes MD, Phone: [phone] Performed at: [address] [id number] Dispensary Attendant: Ania Barnes MD, Phone: [phone] SPATULA-ALONE CERVIX CL[facility] Healthcar e RECURRENT VAGINITIS (HTRX)on 04-17-2024 ATOPOBIUM VAGINAE 0 [facility] ATOPOBIUM VAGINAE Not detected [facility] BVAB 2,3 (BACTERIAL VAGINOSIS ASSOCIATED BACTERIA 2, 3); MOBILUNCUS SPP 0 [facility] BVAB 2,3 (BACTERIAL VAGINOSIS ASSOCIATED BACTERIA 2, 3); MOBILUNCUS SPP Not detected [facility] GIL ALBICANS, PARAPSILOSIS, TROPICALIS 0 [facility] GIL ALBICANS, PARAPSILOSIS, TROPICALIS Not detected [facility] GIL GLABRATA 0 [facility] GIL GLABRATA Not detected [facility] GIL KRUSEI 0 [facility] G[facility] KRUSEI Not [facility] CHLAMYDIA TRACHOMATIS 0 [facility] CHLAMYDIA TRACHOMATIS Not detected [facility] GARDNERELLA VAGINALIS 0 NOM S [facility] GARDNERELLA VAGINALIS Not detected N [facility] MEGASPHAERA (TYPES 1, 2) 0 [facility] MEGASPHAERA (TYPES 1, 2) Not detected [facility] MYCOPLASMA GENITALIUM 0 NOM S [facility] MYCOPLASMA GENITALIUM Not detected N [facility] NEISSERIA GONORRHOEAE 0 NOM S [facility] NEISSERIA GONORRHOEAE Not detected N [facility] TRICHOMONAS VAGINALIS 0 NOM S [facility] TRICHOMONAS VAGINALIS Not detected N [facility] Urinalysis macro (dipstick) panel (U)Ordered By: Ijeoma Carrera on 04-15-2024 Bilirubin, UA Negative Negative - 4(70) +++ mg/dL [facility] Blood, UA Negative Negative - 50 Jordan/mcL [facility] Clarity, UA Clear [facility] re Color, UA Yellow [facility] e Glucose, UA Negative Negative - 1999(110) ++++ mg/dL [facility] Interpretation and review of laboratory results Normal [facility] Ketones, UA Negative Negative - 160(16) ++++ mg/dL [facility] Leukocytes, UA Negative Negative - 500+++ Leanne/mcL [facility] Nitrite, UA Negative Negative - Positive [facility] pH, UA 6.5 5 - 9 [facility] e Protein, UA Negative Negative - 1999(20) ++++ mg/dL [facility] Spec Grav, UA 1.02 1 - 1.03 [facility] Urobilinogen, UA 1.0 0.2 - 12 mg/dL [facility] ALL CBC WITH AUTO DIFFon BASOPHILS ABSOLUTE AUTO 0.1 [facility] Basophils/100 WBC (Bld) 0.5 % 0.2 - 2.0 % [facility] Eosinophils/100 WBC (Bld) 0.4 % Low 0.9 - 7.0 % [facility] Erythrocyte distribution width (RBC) [Ratio] 12.4 % 11.0 - 15.0 % [facility] Hematocrit (Bld) [Volume fraction] 39.8 % 36.0 - 48.0 % [facility] Hem[facility] (Bld) [Mass/Vol] 13.5 g/dL 12.0 - 16.0 g/dL [facility] IMMATURE GRANULOCYTES ABS AUTO 0.03 [facility] Immature granulocytes/100 WBC (Bld) 0.3 % 0.0 - 0.5 % [facility] Interpretation and review of laboratory results Abnormal [facility] LYMPHOC[facility]TES ABSOLUTE AUTO 1.8 [facility] Lymphocytes/100 WBC (Bld) 16.2 % Low 20.5 - 60.0 % [facility] MCH (RBC) [Entitic mass] 28.8 pg 26.7 - 34.0 pg [facility] MCHC (RBC) [Mass/Vol] 33.9 g/dL 29.9 - 35.2 g/dL [facility] MCV (RBC) [Entitic vol] 85 fL 81.0 - 99.0 fL [facility] MONOCYTES ABSOLUTE AUTO 0.4 [facility] Monocytes/100 WBC (Bld) 3.8 % 1.7 - 12.0 % [facility] NEUTROPHILS ABSOLUTE AUTO 8.8 High [facility] Neutrophils/100 WBC (Bld) 78.8 % High 43.0 - 75.0 % [facility] Platelet mean volume (Bld) [Entitic vol] 9 fL Low 9.5 - 13.5 fL [facility] Healthc are [facility]H EO # 0 [facility] PLT 351 [facility] TB RBC 4.68 [facility] TB WBC 11.2 High [facility] DRUG SCREEN RAPID (URINE )on 02-14-2024 AMPHETAMINE SCREEN URINE Negative NEGATIVE [facility] BARBITURATES SCREEN URINE Negative NEGATIVE [facility] BENZODIAZEPINES SCREEN URINE Negative NEGATIVE [facility] BUPRENORPHINE SCREEN URINE Negative NEGATIVE [facility] Comment on above: DRUG CLASS TEST SYST [...] 300 ng/mL CANNABINOID SCREEN URINE Negative NEGATIVE [facility] COCAINE SCREEN URINE Negative NEGATIVE [facility] METHADONE SCREEN URINE Negative NEGATIVE [facility] METHAMPHETAMINES SCREEN URINE Negative NEGATIVE [facility] OPIATE SCREEN URINE Negative NEGATIVE [facility] OXYCODONE SCREEN URINE Negative NEGATIVE [facility] PHENCYCLIDINE SCREEN URINE Negative NEGATIVE [facility] TRICYCLIC ANTIDEPRESSANT URINE Negative NEGATIVE [facility] HCG ( test) Ql (U)o n 02-11-2024 Interpretation and review of laboratory results Abnormal [facility] Preg Test, Ur Positive Negative [facility] Urinalysis macro (dipstick) panel (U)on 02-11-2024 Bilirubin, UA Negative Negative - 4(70) +++ mg/dL [facility] Blood, UA Negative Negative - 50 Jordan/mcL [facility] Clarity, UA Clear [facility] re Color, UA Yellow [facility] e Glucose, UA Negative Negative - 1999(110) ++++ mg/dL [facility] Interpretation and review of laboratory results Normal [facility] Ketones, UA Negative Negative - 160(16) ++++ mg/dL [facility] Leukocytes, UA Negative Negative - 500+++ Leanne/mcL [facility] Nitrite, UA Negative Negative - Positive [facility] pH, UA 6 5 - 9 [facility] e Protein, UA Negative Negative - 1999(20) ++++ mg/dL [facility] Spec Grav, UA 1.025 1 - 1.03 [facility] Urobilinogen, UA 0.2 0.2 - 12 mg/dL [facility] SARS-CoV-2 (COVID-19) RNA NA A+probe Ql (Resp)on 11-23-2021 SARS-CoV-2 (COVID-19) RNA RASHEED+probe Ql (Unsp spec) Positive [facility] Other Covid-19 PCR ([facility])on 11-03 SARS-CoV-2 (COVID-19) RNA RASHEED+probe Ql (Unsp spec) Not detected Normal NOT DETECTED [facility] Comment on above: Result Comment: This test is not yet approved or cleared by the [place] FDA. When there are no FDA-approved or cleared tests available, and other criteria are met, FDA can make tests available under an emergency access mechanism called an Emergency Use Authorization (EUA). The EUA for this test is supported by the [employer] of Health and Human Service's (HHS's) declaration [...] consistent with SARS-CoV-2. Performed By: #### [facility] #### [facility] [address] [place] [address] Dr. Kaela Stewart Vital Signs Date Time Vital Sign Value Performing Clinician Facility 04-15-2024 16:36-0500 Body weight 88.63 kg Chelsea DIAZ Work Phone: [facility] 04-15-2024 16:36-0500 Diastolic blood pressure 66 mm[Hg] Chelsea DIAZ Work Phone: [facility] 04-15-2024 16:36-0500 Systolic blood pressure 110 mm[Hg] Chelsea DIAZ Work Phone: [facility] 04-04-2024 10:57-0500 Body height 157.48 cm [facility] 04-04-2024 10:57-0500 Body mass index (BMI) [Ratio] 35.4 kg/m2 [facility] 04-04-2024 10:57-0500 Body temperature 99.8 [degF] [facility] 04-04-2024 10:57-0500 Body weight 87.99 kg [facility] 04-04-2024 10:57-0500 Diastolic blood pressure 71 mm[Hg] [facility] 04-04-2024 10:57-0500 Heart rate 118 /min [facility] 04-04-2024 10:57-0500 Respiratory rate 16 /min [facility] 04-04-2024 10:57-0500 SaO2% (BldA) [Mass fraction] 98 % [facility] 04-04-2024 10:57-0500 Systolic blood pressure 101 mm[Hg] [facility] 03-16-2024 16:35-0500 Body weight 88.18 kg Phil Sri DO Work Phone: [facility] 03-16-2024 16:35-0500 Diastolic blood pressure 68 mm[Hg] Phil Sri DO Work Phone: [facility] 03-16-2024 16:35-0500 Systolic blood pressure 108 mm[Hg] Phil Sri DO Work Phone: [facility] 02-11-2024 09:32-0500 Body weight 86.18 kg [facility] Nurse [facility] 02-11-2024 09:32-0500 Diastolic blood pressure 70 mm[Hg] [facility] Nurse [facility] 02-11-2024 09:32-0500 Systolic blood pressure 110 mm[Hg] [facility] Nurse [facility] 11-23-2021 14:10-0400 Body height 154.94 cm Marianna Moralez Other [facility] Other 11-23-2021 14:10-0400 Body mass index (BMI) [Ratio] 34.01 kg/m2 Marianna Moralez Other [facility] Other 11-23-2021 14:10-0400 Body temperature 99.8 [degF] Marianna Moralez Other [facility] Other 11-23-2021 14:10-0400 Body weight 81.65 kg Marianna Naomy Other [facility] Other 11-23-2021 14:10-0400 Respiratory rate 18 /min Marianna Moralez Other [facility] Other 11-23-2021 14:10-0400 SaO2% (BldA) [Mass fraction] 97 % Marianna Moralez Other [facility] [employer] Other Encounters Encounter Date Encounter Type Care Provider Facility Start: 05-11-2024 End: 05-11-2024 ambulatory CHELSEA PURVIS Not Available Start: 05-11-2024 End: 05-11-2024 ambulatory CHELSEA PURVIS Not Available Start: 05-04-2024 End: 05-07-2024 [facility] Result Encounter Chelsea DIAZ Work Phone: [facility] Unsolicited Start: 05-04-2024 End: 05-07-2024 Clinisync Result Encounter Chelsea DIAZ Work Phone: [facility] Unsolicited Start: 04-15-2024 End: 04-15-2024 ambulatory CHELSEA PURVIS Not Available Start: 04-15-2024 End: 04-15-2024 Patient encounter procedure Chelsea DIAZ Work Phone: [facility] Work Phone: Start: 04-15-2024 End: 04-15-2024 Periodic [...] Start: 04-14-2024 End: 04-15-2024 Telephone encounter Sarah Lares Rauch [employer] Work Phone: [facility] Start: 04-04-2024 End: 04-04-2024 ambulatory [facility] Work Phone: Start: 04-04-2024 End: 04-04-2024 Patient encounter procedure [facility] Work Phone: [...] Start: 09-10-2023 End: 09-11-2023 Telephone encounter Sarah L Bernice [employer] Work Phone: [facility] Start: 11-23-2021 End: 11-23-2021 ambulatory Marianna Moralez Other [facility] Other Start: 11-23-2021 Office outpatient ne w 30 minutes Mariannatyler Moralez [facility] Start: 11-28-2020 End: 11-28-[address] MECHELLE MOODY Facility:H1 Procedures Date Procedure Procedure Detail Performing Clinician Start: 05-04-2024 AFP, SERUM, OPEN SPI NA BIFIDA Chelsea DIAZ Work Phone: Start: 04-15-2024 RECURRENT VAGINITIS (HTRX) Chelsea DIAZ Work Phone: Start: 04-15-2024 Urnls dip stick/tabl et rgnt non-auto w/o micrscp Chelsea DIAZ Work Phone: Start: 04-15-2024 IGP,APTIMA HPV,AGE GDLN Chelsea DIAZ Work Phone: Start: 02-14-2024 ALL CBC WITH AUTO DIFF [employer] DO Work Phone: Start: 02-14-2024 [facility] DRUG SCREEN RAPI D (URINE) Phil [employer] DO Work Phone: Start: 02-11-2024 End: 02-11-2024 Urnls dip stick/tablet rgnt non-auto w/o micrscp [employer]Nanza DO Work Phone: Start: 05-28-2022 Adult depression scr eening assessment Sarah uQeen [employer] Work Phone: Start: 12-15-2018 Microscopic observat ion [Identifier] in Cervix by Cyto stain Sarah Queen [employer] Work Phone: Plan of Treatment Date Care Activity Detail Author Start: 06-12-2024 End: 06-12-2024 Patient encounter procedure 06/12/2024 9:40 AM EDT Office Visit [facility] [address] [place] [address] Sarah Queen APRN-MAJOR [employer]ER [address] [place] [address] [facility] Start: 05-11-2024 End: 05-11-2024 Patient encounter procedure 05/11/2024 3:40 PM EDT Routine [facility] [address] [place] [id number] Chelsea Purvis PA [address] [place] [address] [facility] Start: 05-11-2024 End: 05-11-2024 Professional / ancillary services management 05/11/2024 2:30 PM EDT Ancillary Procedure [facility] [address] [place] [id number] [facility] Start: 04-15-2024 End: 04-15-2024 Patient encounter procedure 04/15/2024 3:50 PM EST Routine [facility] [address] [place] [id number] Chelsea Purvis PA [address] [place] [address] [facility] Start: 04-15-2024 End: 10-13-2024 Alpha fetoprotein, maternal Alpha fetoprotein, maternal Lab Routine Second trimester 19 weeks gestation of Expected: 04/15/2024 (Approximate), Expires: 10/13/2024 [facility] Comment on above: Expected: 04/15/2024 (Approximate), Expires: 10/13/2024 Start: 04-15-2024 End: 04-15-2025 US for US OB 14+ weeks anatomy scan Imaging Routine Screening, , for anatomic survey Expected: 04/15/2024, Expires: 04/15/2025 [facility] Healthcare Comment on above: Expected: 04/15/2024 , Expires: 04/15/2025 Start: 03-16-2024 End: 03-16-2024 Patient encounter procedure 03/16/2024 3:50 PM EST Routine [facility] [address] [place] [id number] Phil Fierro, DO [address] [place] [address] [place] [address] [facility] OB Start: 02-11-2024 End: 02-10-2025 ABO/Rh ABO/Rh Lab Routine Missed menses , unspecified gestational age Expected: 02/11/2024 (Approximate), Expires: 02/10/2025 [facility] Healthcare Comment on above: Expected: 02/11/2024 (Approximate), Expires: 02/10/2025 Start: 02-11-2024 End: 02-10-2025 Blood type and Indirect antibody screen panel - Blood Type and screen Lab Routine Missed menses , unspecified gestational age Expected: 02/11/2024 (Approximate), Expires: 02/10/2025 [facility] Work Phone: Comment on above: Expected: 02/11/2024 (Approximate), Expires: 02/10/2025 Start: 02-11-2024 End: 02-10-2025 Drugs of abuse panel - Urine by Screen method Rapid drug screen, urine Lab Routine , unspecified gestational age Encounter for supervision of normal first in first trimester Expected: 02/11/2024 (Approximate), Expires: 02/10/2025 [facility] Comment on above: Expected: 02/11/2024 (Approximate), Expires: 02/10/2025 Start: 02-11-2024 End: 02-10-2025 US Pelvis transvaginal US OB transvaginal Imaging Routine Missed menses Expected: 02/11/2024 (Approximate), Expires: 02/10/2025 [facility] Healthcare Comment on above: Expected: 02/11/2024 (Approximate), Expires: 02/10/2025 Start: 11-08-2023 End: 11-08-2023 Patient encounter procedure 11/08/2023 10:00 AM EDT Office Visit [facility] [address] [place] [address] Sarah Queen, [employer] [address] [place] [address] [facility] Start: 05-29-2023 Adult BMI Screening Adult BMI Screen ing [facility] Start: 05-29-2023 Depression Screening Depression Scre ening [facility] Start: 05-29-2023 Tobacco Screening Tobacco Screening [facility] Start: 12-15-2021 Screening for malign ant neoplasm of cervix Pap Smear [facility] Start: 11-22-2020 DTaP,Tdap and Td Vaccines (7 - Td or Tdap) DTaP,Tdap and Td Vaccines (7 - Td or Tdap) [facility] Bacteria identified in Urine by Culture Urine culture Microbiology Routine Missed menses Ordered: 02/11/2024 [facility] Comment on above: Ordered: 02/11/2024 CBC W Auto Different ial panel - Blood CBC and differential Lab Routine Missed menses , unspecified gestational age Ordered: 02/11/2024 [facility] Comment on above: Ordered: 02/11/2024 CHLAMYDIA TRACHOMATI S (GENITO/STI) CHLAMYDIA TRACHOMATIS (GENITO/STI) Lab Routine STD exposure Ordered: 04/15/2024 [facility] Comment on above: Ordered: 04/15/2024 Cytology Cervical or vaginal smear or scraping study Pap Smear Pathology and Cytology Routine Well woman exam with routine gynecological exam Ordered: 04/15/2024 [facility] Comment on above: Ordered: 04/15/2024 Hemoglobin A1c/Hemoglobin.total in Blood Hemoglobin A1c Lab Routine Missed menses , unspecified gestational age Ordered: 02/11/2024 [facility] Comment on above: Ordered: 02/11/2024 Hepatitis B virus surface Ag [Presence] in Serum or Plasma by Immunoassay Hepatitis B surface antigen Lab Routine Missed menses , unspecified gestational age Ordered: 02/11/2024 [facility] [facility] Comment on above: Ordered: 02/11/2024 Hepatitis C virus Ab [Presence] in Serum or Plasma by Immunoassay Hepatitis C antibody Lab Routine Missed menses , unspecified gestational age Ordered: 02/11/2024 [facility] Comment on above: Ordered: 02/11/2024 HIV-1/HIV-2 antigen/antibody combination immunoassay HIV-1 and HIV-2 antibodies Lab Routine Missed menses , unspecified gestational age Ordered: 02/11/2024 [facility] Comment on above: Ordered: 02/11/2024 Neisseria gonorrhoea e DNA [Presence] in Unspecified specimen by RASHEED with probe detection Neisseria gonorrhea DNA probe, direct Lab Routine STD exposure Ordered: 04/15/2024 [facility] Comment on above: Ordered: 04/15/2024 Reagin Ab [Presence] in Serum by RPR RPR Lab Routine Missed menses , unspecified gestational age Ordered: 02/11/2024 [facility] Comment on above: Ordered: 02/11/2024 Rubella antibody, IgG Rubella an tibody, IgG Lab Routine Missed menses , unspecified gestational age Ordered: 02/11/2024 [facility] Comment on above: Ordered: 02/11/2024 SURESWAB(R) ADVANCED VAGINITIS PLUS, TMA SURESWAB(R) ADVANCED VAGINITIS PLUS, TMA Pathology and Cytology Routine Vaginal discharge Ordered: 04/15/2024 [facility] Work Phone: Comment on above: Ordered: 04/15/2024 Immunizations Immunization Date Immunization Notes Care Provider [facility] 01-10-2021 Influenza, injectabl e, Madin [place] Canine Kidney, preservative free, quadrivalent Sarah Bernice [facility] Work Phone: [facility] 11-22-2015 meningococcal oligosaccharide (groups A, C, Y and W-135) diphtheria toxoid conjugate vaccine (MCV4O) Sarah Bernice [facility] Work Phone: [facility] 11-22-2010 tetanus toxoid, redu john diphtheria toxoid, and acellular pertussis vaccine, adsorbed [facility] Work Phone: [facility] 10-20-2003 DTaP-hepatitis B and poliovirus vaccine [facility] Work Phone: [facility] 10-20-2003 measles, mumps and rubella virus vaccine Sarah Bernice [facility] Work Phone: [facility] 10-24-1998 diphtheria, tetanus toxoids and acellular pertussis vaccine, unspecified formulation Sarah Queen [facility] Work Phone: [facility] 10-24-1998 haemophilus influenz ae type b vaccine, conjugate unspecified formulation Sarah Queen [facility] Work Phone: [facility] 10-24-1998 measles, mumps and rubella virus vaccine Sarah Bernice [facility] Work Phone: [facility] 06-08-1998 diphtheria, tetanus toxoids and acellular pertussis vaccine, unspecified formulation Sarah Bernice [facility] Work Phone: [facility] 06-08-1998 haemophilus influenz ae type b vaccine, conjugate unspecified formulation Sarah Bernice [facility] Work Phone: [facility] 06-08-1998 poliovirus vaccine, unspecified formulation Sarah Queen [facility] Work Phone: [facility] 04-01-1998 diphtheria, tetanus toxoids and acellular pertussis vaccine, unspecified formulation Sarah Bernice [facility] Work Phone: [facility] 04-01-1998 haemophilus influenz ae type b vaccine, conjugate unspecified formulation Sarah Queen [facility] Work Phone: [facility] 04-01-1998 hepatitis B vaccine, pediatric or pediatric/adolescent dosage Sarahdonnie Queen [facility] Work Phone: [facility] 04-01-1998 poliovirus vaccine, unspecified formulation Sarah Queen [facility] Work Phone: [facility] 01-12-1998 diphtheria, tetanus toxoids and acellular pertussis vaccine, unspecified formulation Sarah Bernice [facility] Work Phone: [facility] 01-12-1998 haemophilus influenz ae type b vaccine, conjugate unspecified formulation Sarah Bernice [facility] Work Phone: [facility] 01-12-1998 poliovirus vaccine, unspecified formulation Sarah Queen [employer] Work Phone: [facility] 1997 hepatitis B vaccine, pediatric or pediatric/adolescent dosage Sarah Queen [employer] Work Phone: [facility] 1997 hepatitis B vaccine, pediatric or pediatric/adolescent dosage Sarah Queen [employer] Work Phone: [facility] Payers Date Payer Category Payer Private Health Insurance [facility] MEDICAID [id number] 2024 Medicaid [place]ICAID [place] [id number] 2024 Medicaid [id number] 2017 Blue Cross Blue [facility] Managed Care - O ANTHEM [id number] 2017 Unknown KWASI HERNANDEZ SS (PPO) [id number] 2017-Present [phone] [address] [place] [address] [id number] 1997 Unknown [id number] 1997 Unknown [id number] [id number] 1997 Unknown [id number] [id number] 1997 Unknown [id number] [id number] 1997 Unknown [id number] [id number] 1997 Unknown [id number] [id number] 1959 Unknown [id number] Social History Date Type Detail Facility Start: 08-13-2018 End: 05-28-2022 Sex Assigned At [facility] Other Tobacco smoking stat [facility] Tobacco smoking consumption unknown [facility] Start: 12-13-2023 [facility] Start: 1995 Sex assigned at [facility] file [facility] Start: 05-28-2022 End: 04-04-2024 Tobacco smoking status NHIS Never smoked tobacco (finding) [facility] Start: 10-07-2014 End: 04-04-2024 Sex Female (finding) [facility] Start: 1995 Sex Assigned At Female [facility] Start: 05-28-2022 Tobacco use and exposure Smokeless tobacco non-user [facility] Start: 05-28-2022 Alcoholic beverage intake Ex-drinker (finding) [facility] Start: 08-13-2018 End: 05-28-2022 History of Social function [facility] Adolescent depressio n screening assessment 0 [facility] Clinical Notes 11-23-2021 to 04-15-2024 EMILY Villalobos - 04/15/2024 3:50 PM ESTTelephone Encounter - [facility] - 04/14/2024 10:08 AM ESTTelephone Encounter - [facility] - 04/14/2024 10:08 AM EST Note Date & Type Note Facility 04-15-2024 History of Presen t illness Narrative Reason for Appointment: Patient ID: Nisha Fajardo is a 28 y.o. female who [...] nursing note reviewed. Exam conducted with a hot head machine operator present. Vitals: There is no height or [...] obtained without difficulty and patient was given [facility] order to have obtained. Orders Placed This Encounter Procedures US OB 14+ weeks anatomy scan CHLAMYDIA TRACHOMATIS (GENITO/STI) Neisseria gonorrhea DNA probe, direct Alpha fetoprotein, maternal POCT urinalysis dipstick manually resulted Follow Up: Patient is to return to our office in 4 weeks for routine OB appointment Documented by Monse Arias LPN on behalf of: EMILY Villalobos documented in this encounter [facility] 04-14-2024 Miscellaneous Notes Formattin g of this note might be different from the original. set up establish care with provider of choice LM on VM documented in this encounter [facility] 04-14-2024 Telephone encount er Note set up establish care with provider of choice [facility] 04-14-2024 Telephone encount er Note LM on VM [facility] 04-04-2024 Evaluation note Diagnosis Onset Date Resolution Influenza A acute April 04, 2024 10:32am [facility] Work Phone: [phone] 218-202401-13-2025 History of Present illness Narrative* Ijeoma Carrera, MIKIE - 03/16/2024 3:50 PM EST Reason for Appointment: Patient ID: Nisha Fajardo is a 28 y.o. female who [...] or undercooked meat, and stay away from [facility]. Patient has been consulted regarding any further do's and don'tsof . Patient voiced understanding and all questions and concerns were answered. Follow Up: Patient is to return in 4 weeks for routine OB appointment. Documented by Ijeoma Carrera LPN on behalf of: Phli Fierro DO [facility] [id number] History of Present illness Narrative* Annie Keith MA - 02/11/2024 9:00 AM EST Reason for Appointment: Patient ID: Nisha Fajardo is a 28 y.o. female who [...] or undercooked meat, and stay away from [facility]. Patient has also been advised to not [...] by: Annie Keith MA documented in [facility] [id number] Miscellaneous Notes* Telephone Encounter - Lupe Stacy - 09/10/2023 10:02 AM EDT Reschedule 10/31 appt * Telephone Encounter - Lupe Stacy - 09/10/2023 10:02 AM EDT LM on VM * Telephone Encounter - Lupe Ignaciomartina - 09/10/2023 10:02 AM EDT [facility] Note* Telephone Encounter - Lupe Regis - 09/10/2023 10:02 AM EDT Reschedule 10/31 appt [facility]07-09-2024 Telephone encounter Note* Telephone Encounter - Lupe Regis - 09/10/2023 10:02 AM EDT LM on VM [facility]07-09-2024 Telephone encounter Note* Telephone Encounter - Lupe Dinahisreal - 09/10/2023 10:02 AM EDT Rescheduled [facility]09-22-2022 Evaluation note* Encounter Date Diagnosis Assessment Notes [...] POSITIVE education handout discharge instructions. given. T Profyle Other Evaluation note* Diagnosis Missed menses , [...] for anatomic survey documented in this encounter [facility]InstructionsNot on filedocumented in this encounterProMer[facility] St[facility] SystemInstructionsNot on filedocumented in this encounterProBelle[facility] Summary Purpose Family History No Family History Records Found Relationship Condition Age at Onset Recorded Date/T kain mother Heart disease Unknown Advance Directives No Advanced Directives Records Found Advance Directive Response Recorded Date/ Time Advance Directives No April 04, 2024 10:31am Chief Complaint and Reason for Visit Chief Complaint Admit Date Cough, chest congestion April 04 10:32am Reason for Visit Admit Date Influenza A April 04, 2024 1 0:32am Additional Source Comments INFORMATION SOURCE (unrecogn ized section and content) DATE CREATED AUTHOR 12/08/2020 [facility] DATE CREATED AUTHOR AUTHOR'S ORGANIZ ATION 05/15/2024 [facility] Specialists EPIC REASON FOR VISIT (unrecogniz ed section and content) Reason Comments Amenorrhea Reason Comments Routine Visit Reason Comments Routine Visit [facility] Visit STI Screening Care Teams (unrecognized sec tion and content) Veterinary Medicine Teacher Relationship Specialty Start Date End Date Terrence Mcintyre MD [address] [place] [address] PCP - General Family Medicine 02/11/24 Veterinary Medicine Teacher Relationship Specialty Start Date End Date Terrence Mcintyre MD [address] [place] [address] PCP - General Family Medicine 02/11/24 Veterinary Medicine Teacher Relationship Specialty Start Date End Date Terrence Mcintyre MD [address] [place] [address] PCP - General Family Medicine 02/11/24 Veterinary Medicine Teacher Relationship Specialty Start Date End Date Terrence Mcintyre MD [address] [place] [address] PCP - General Family Medicine 02/11/24 Team Status: Active Member Role Status Dates Terrence Mcintyre DO Primary Care Provider Active Team Status: Inactive Member Role Status Dates Terrence Mcintyre DO Primary Care Provider Active Start: April 04, 2024 End: April 04, 2024 Michell German APRN Attending Provider Active Start: April 04, 2024 End: April 04, 2024 Veterinary Medicine Teacher Relationship Specialty Start Date End Date Sarah Queen APRN-[employer] [address] [place] [address] PCP - General Internal Medicine 09/03/23 Veterinary Medicine Teacher Relationship Specialty Start Date End Date Terrence Mcintyre MD [address] [place] [address] PCP - General Family Medicine 02/11/24 Veterinary Medicine Teacher Relationship Specialty Start Date End Date Sarah Queen APRN-[employer] [address] [place] [address] PCP - General Internal Medicine 09/03/23 Goals [...] BE BASED ON THE PRIMARY CLINICAL RECORDS. [employer] [facility]. provides no warranty or guarantee of the accuracy or completeness of information in this document.
[2024-05-22 13:56] LABS: Basophils Percent Auto 0.4 % (0.2-2.0); Eosinophils Percent Auto 0.3 % (0.9-7.0); Hematocrit 37.5 % (36.0-48.0); Hemoglobin 12.6 g/dL (12.0-16.0); Immature Granulocytes Abs Auto 0.05 10^3/uL (0.00-0.03); Immature Granulocytes Pct Auto 0.6 % (0.0-0.5); Lymphocytes Absolute Auto 1.5 10^3/uL (1.2-3.8); Lymphocytes Percent Auto 16.5 % (20.5-60.0); Mean Corpuscular HGB Conc 33.6 g/dL (29.9-35.2); Mean Corpuscular Hemoglobin 28.6 pg (26.7-34.0); Mean Corpuscular Volume 85.2 fL (81.0-99.0); Monocytes Absolute Auto 0.3 10^3/uL (0.3-0.8); Monocytes Percent Auto 3.8 % (1.7-12.0); Neutrophils Absolute Auto 7.1 10^3/uL (1.4-6.5); Neutrophils Percent Auto 78.4 % (43.0-75.0); Platelet Count 244 10^3/uL (150-450); Red Cell Distribution Width 13.3 % (11.0-15.0)
[2024-05-22 14:17] LABS: Glucose 1 Hour 131 mg/dL (<130)
== END 2024-05-22 12:39 | disposition home or self-care (01) ==
LOC: LAB 12:38
PROVIDERS: PCP Family Medicine; Visit Provider Obstetrics & Gynecology
DX: Z13.1 Encounter for screening for diabetes mellitus (principal)
CPT/HCPCS: 36415; 82950; 85025

== ENCOUNTER 2024-06-10 16:29 | Observation (INO) | payer OTHER, SELFPAY ==
[2024-06-10 16:40] VITALS: TEMP 36.7
[2024-06-10 16:49] VITALS: BP 107/75; PULSE 104; TEMP 35.9
[2024-06-10 17:33] LABS: Basophils Percent Auto 0.2 % (0.2-2.0); Eosinophils Absolute Auto 0.1 10^3/uL (0.0-0.7); Eosinophils Percent Auto 0.6 % (0.9-7.0); Hematocrit 36.1 % (36.0-48.0); Hemoglobin 12.2 g/dL (12.0-16.0); Immature Granulocytes Abs Auto 0.06 10^3/uL (0.00-0.03); Immature Granulocytes Pct Auto 0.7 % (0.0-0.5); Lymphocytes Absolute Auto 1.7 10^3/uL (1.2-3.8); Lymphocytes Percent Auto 19.5 % (20.5-60.0); Mean Corpuscular HGB Conc 33.8 g/dL (29.9-35.2); Mean Corpuscular Hemoglobin 29.1 pg (26.7-34.0); Mean Corpuscular Volume 86.2 fL (81.0-99.0); Monocytes Absolute Auto 0.6 10^3/uL (0.3-0.8); Monocytes Percent Auto 6.4 % (1.7-12.0); Neutrophils Absolute Auto 6.5 10^3/uL (1.4-6.5); Neutrophils Percent Auto 72.6 % (43.0-75.0); Platelet Count 257 10^3/uL (150-450); Red Blood Count 4.19 10^6/uL (4.20-5.40); Red Cell Distribution Width 13.6 % (11.0-15.0); White Blood Count 8.9 10^3/uL (4.0-11.0)
--- NOTE | 2024-06-10 17:42 | PC.NURSE ---
1640-Pt arrives to [facility] at this time from provider office d/t tachycardia of fetus noted with doppler FHR at office. Pt assessment and hx reviewed. Pt denies complications in this , pt states this is the only issue this far. Pt reports maternal hx of heart problems w/ multiple family members needing pacemakers. Pt denies fever or recent sickness. Pt denies caffeine use. Pt reports active movement. Pt denies vaginal bleeding or leaking of fluid. RN places pt on FHR/UC monitors at this time. FHR audible from regular rhythm 200-220bpms with active movement; FHR not tracing on monitor d/t increased rate of tachycardia. Active movement noted. After 3 mins of monitor initiation, FHR decreases to a slower, irregular bradycardiac rhythm. Difficult to calculate d/t skipped and dropped beats for 2 minutes. FHR continues to fluctuate in cycles between tachycardic regular rhythm and bradycardiac irregular rhythm. Bhavana RN and Jorge RN called to bedside to verify FHR audible tracing. 2 RNs verify regular tachycardiac and irregular bradycardiac rhythms. Audible movement heard at bedside and noted per pt. RN continues to stand at bedside listening to FHR tracing via audibly d/t unable to obtain tracing. PO fluids given. Pt oral temp 98.1.
--- NOTE | 2024-06-10 18:07 | PC.NURSE ---
1805- US tech at bedside at this time obtaining BPP. Pt updated on plan of care at this time.
[2024-06-10 18:29] LABS: Free T4 0.67 ng/dL (0.76-1.46)
--- NOTE | 2024-06-10 19:40 | PC.NURSE ---
GA 27+5 per ; no pt hx chart.
== END 2024-06-10 18:50 | disposition home or self-care (01) ==
PROVIDERS: Admitting Provider Obstetrics & Gynecology; PCP Family Medicine; Visit Provider Obstetrics & Gynecology
DX: O36.8130 Decreased fetal movements, third trimester, not applicable or unspecified (principal); O36.8330 Maternal care for abnormalities of the fetal heart rate or rhythm, third trimester, not applicable or unspecified; Z3A.29 29 weeks gestation of pregnancy
CPT/HCPCS: 36415; 59025; 76816; 76818; 84439; 84443; 85025; G0378; G0379

== ENCOUNTER 2024-06-29 17:58 | Outpatient (OUT) | payer OTHER, SELFPAY ==
[2024-06-29 18:08] VITALS: BP 112/58; PULSE 92
== END 2024-06-29 18:37 | disposition home or self-care (01) ==
LOC: FBCO 17:58 → FBC 17:59
PROVIDERS: PCP Family Medicine; Visit Provider Obstetrics & Gynecology
DX: O35.8XX0 Maternal care for other (suspected) fetal abnormality and damage, not applicable or unspecified (principal); Z3A.30 30 weeks gestation of pregnancy
CPT/HCPCS: 59025

== ENCOUNTER 2024-07-02 19:00 | Outpatient (OUT) | payer OTHER, SELFPAY ==
--- NOTE | 2024-07-02 19:19 | US_ITS ---
The [address] [address] Patient Name: NISHA FAJARDO MRN: [id number] date: 1995 Sex: F Assigned Patient Location: US Current Patient Location: Accession/Order Number: [id number] Exam Date: 07/03/2024 08:06 Report Date: 07/03/2024 08:07 At the request of: NON-STAFF PHYSICIAN MD Procedure: US OB BPP w non-stress Biophysical profile. Reason for exam: Excessive growth. COMPARISON: None. TECHNIQUE: Transabdominal imaging of the gravid uterus was obtained. FINDINGS: The floral associate reports a BPP of 8 out of 8. SKYLAR is normal at 15.5 cm. heart rate 125 bpm. US/US OB BPP w non-stress Impression: BPP 8 out of 8. Impression dictated by: Skyler Almaraz Jr. [email or web address] 07/03/2024 8:07 AM Dictation Location: [place] Electronically authenticated by: [id number] Y Date: 07/03/2024 08:07
[2024-07-02 19:58] VITALS: BP 115/53; PULSE 85
== END 2024-07-02 20:25 | disposition home or self-care (01) ==
LOC: US 19:00 → FBC 19:04
PROVIDERS: PCP Family Medicine
DX: O36.63X0 Maternal care for excessive fetal growth, third trimester, not applicable or unspecified (principal); Z3A.30 30 weeks gestation of pregnancy
CPT/HCPCS: 76818

== ENCOUNTER 2024-07-06 18:41 | Outpatient (OUT) | payer OTHER, SELFPAY ==
[2024-07-06 18:48] VITALS: BP 108/53; PULSE 90
== END 2024-07-06 19:25 | disposition home or self-care (01) ==
LOC: FBCO 18:41 → FBC 18:46
PROVIDERS: PCP Family Medicine; Visit Provider Obstetrics & Gynecology
DX: O35.8XX0 Maternal care for other (suspected) fetal abnormality and damage, not applicable or unspecified (principal); Z3A.31 31 weeks gestation of pregnancy
CPT/HCPCS: 59025

== ENCOUNTER 2024-07-09 19:06 | Outpatient (OUT) | payer OTHER, SELFPAY ==
--- NOTE | 2024-07-09 19:09 | US_ITS ---
[address] [address] Patient Name: NISHA FAJARDO MRN: [id number] date: 1995 Sex: F Assigned Patient Location: [facility] Current Patient Location: Accession/Order Number: [id number] Exam Date: 07/10/2024 09:53 Report Date: 07/10/2024 09:53 At the request of: NON-STAFF PHYSICIAN MD Procedure: US OB BPP w non-stress Biophysical profile. Reason for exam: Excessive growth. COMPARISON: 07/02/2024 TECHNIQUE: Transabdominal imaging of the gravid uterus was obtained. FINDINGS: The business development consultant reports a BPP of 8 out of 8. SKYLAR is normal at 18.1 cm. heart rate 148 bpm. US/US OB BPP w non-stress Impression: BPP 8 out of 8. Impression dictated by: Skyler Almaraz Jr., D.O. 07/10/2024 9:53 AM Dictation Location: [place] [address] Electronically authenticated by: [id number] Y Date: 07/10/2024 09:53
[2024-07-09 19:45] VITALS: BP 119/56; PULSE 86
== END 2024-07-09 20:10 | disposition home or self-care (01) ==
LOC: US 19:07 → FBC 19:08
PROVIDERS: PCP Family Medicine; Visit Provider Obstetrics & Gynecology
DX: O36.63X0 Maternal care for excessive fetal growth, third trimester, not applicable or unspecified (principal); O40.3XX0 Polyhydramnios, third trimester, not applicable or unspecified
CPT/HCPCS: 76818

== ENCOUNTER 2024-07-13 18:06 | Outpatient (OUT) | payer OTHER, SELFPAY ==
--- OUTSIDE RECORDS SUMMARY | 2024-07-13 18:15 | XMS_ITS | CCD ---
Author Organization [facility] CliniSymd Care Team Providers Care Trial Examiner Name Role Phone HEIDY, DR MECHELLE Serrano Attending Unavailable HEIDY, DR MECHELLE Serrano Consulting Unavailable HEIDY, DR MECHELLE Serrano Admitting Unavailable Naomy Marianna Unavailable Terrence Mcintyre MD Primary Care Provider [phone] [facility] [place] Primary Care Provider Terrence Mcintyre MD Primary Care Provider Karyna DUCK BILL OPERATOR-[facility], [facility] Primary Care Provider CHELSEA CARSON Attending Unavailable CHELSEA CARSON Referring Unavailable CHELSEA CARSON Attending Unavailable SRI, RONALD Attending Unavailable SRI, RONALD Attending Unavailable SRI, RONALD Attending Unavailable KARYNA, CHAVEZ L Primary Care Unavailable SRI, RONALD R Referring Unavailable KARYNA, CHAVEZ L Primary Care Unavailable SRI, RONALD R Referring Unavailable KARYNA, CHAVEZ L Primary Care Unavailable SRI, RONALD R Referring Unavailable DARELL TAVERA Referring Unavailable KARYNA, CHAVEZ L Primary Care Unavailable ANIA FENTON Attending Unavailable KARYNA, CHAVEZ L Referring Unavailable KARYNA, CHAVEZ L Primary Care Unavailable KARYNA, CHAVEZ L Primary Care Unavailable SRI, RONALD R Referring Unavailable VANESA SEGOVIA Admitting Unavailable VANESA SEGOVIA Attending Unavailable KARYNA, CHAVEZ L Primary Care Unavailable MEHREEN SHAY Consulting UnavailKATLYN Hernandez Consulting Unavailable LARISSA DIAZ Consulting Unavailable AHMET VALVERDE Consulting Unavailable BERTO SUÁREZ Attending Unavailable SRI, RONALD R Referring Unavailable KRAYNA, CHAVEZ L Primary Care Unavailable SRI, RONALD R Referring Unavailable KARYNA, CHAVEZ L Primary Care Unavailable KARYNA, CHAVEZ L Primary Care Unavailable SRI, RONALD R Referring Unavailable KARYNA, CHAVEZ L Primary Care Unavailable SRI, RONALD R Referring Unavailable KARYNA, CHAVEZ L Primary Care Unavailable SRI, RONALD R Referring Unavailable MIGDALIA FERNANDEZ Attending Unavailable SRI, RONALD R Referring Unavailable KARYNA, CHAVEZ L Primary Care Unavailable YSABEL, ESTEFANI S Referring Unavailable KARYNA, CHAVEZ L Primary Care Unavailable DARELL TAVERA Referring Unavailable KARYNA, CHAVEZ L Primary Care Unavailable SHAYMEHREEN K F Referring Unavaila ble KARYNA, CHAVEZ L Primary Care Unavailable YSABEL, ESTEFANI S Referring Unavailable KARYNA, CHAVEZ L Primary Care Unavailable MEHREEN SHAY K F Referring Unavaila ble KARYNA, CHAVEZ L Primary Care Unavailable KARYNA, CHAVEZ L Primary Care Unavailable SRI, RONALD R Referring Unavailable KARYNA, CHAVEZ L Primary Care Unavailable SRI, RONALD R Referring Unavailable KARYNA, CHAVEZ L Primary Care Unavailable SRI, RONALD R Referring Unavailable Medications Current Medications Medication Drug Class(es) [...] type As directed 6 tablet 04/03/2024 Active blood-glucose meter misc (7 sources) Start: 07-06-2024 blood-glucose meter misc Indications: Diet controlled gestational diabetes mellitus (GDM) in third trimester Please check blood glucose fasting and 1 hour after each meal 1 each 07/06/2024 Active Start: 06-26-2024 End: 07-06-2024 blood-glucose meter misc Ind ications: Diet controlled gestational diabetes mellitus (GDM) in third trimester Please check blood glucose fasting and 1 hour after each meal 1 each 06/26/2024 07/06/2024 Discontinued (Reorder) Start: 06-26-2024 blood-glucose meter misc Indications: Diet controlled gestational diabetes mellitus (GDM) in third trimester Please check blood glucose fasting and 1 hour after each meal 1 each 06/26/2024 Active blood-glucose sensor (FREEST YLE NEIDA 3 PLUS SENSOR) device (7 sources) Start: 07-06-2024 blood-glucose sensor (FREESTYLE NEIDA 3 PLUS SENSOR) device Indications: Diet controlled gestational diabetes mellitus (GDM) in third trimester Wear for 15 days and change 2 each 3 07/06/2024 Active Start: 06-26-2024 End: 07-06-2024 blood-glucose sensor (FREEST YLE NEIDA 3 PLUS SENSOR) device Indications: Diet controlled gestational diabetes mellitus (GDM) in third trimester Wear for 15 days and change 2 each 3 06/26/2024 07/06/2024 Discontinued (Reorder) Start: 06-26-2024 blood-glucose sensor (FREESTYLE NEIDA 3 PLUS SENSOR) device Indications: Diet controlled gestational diabetes mellitus (GDM) in third trimester Wear for 15 days and change 2 each 3 06/26/2024 Active calcium carbonate 1250 mg / cholecalciferol 200 unt oral tablet (8 sources) Vitamin D Start: 06-28-2024 take 1 tablet by mouth once in the morning calcium carbonate-vitamin D3 (OSCAL 500 + D) 500 mg (1,250 mg) - 200 units per tablet Take 1 tablet by mouth in the morning and 1 tablet in the evening. Take with meals. 180 tablet 3 06/28/2024 Active Start: 06-28-2024 take 1 tablet by nikolay th in the morning, then take 1 tablet by mouth once at mealtime Calcium Carb-Cholecalciferol (Oyster Shell Calcium w/D) 500-5 MG-MCG tablet Take 1 tablet by mouth in the morning and 1 tablet in the evening. Take with meals. 06/28/2024 Active digoxin 0.25 mg oral tablet (8 sources) Cardiac Glycoside Start: 06-28-2024 take 1 tablet by mouth once digoxin (LANOXIN) 250 mcg tablet Take 1 tablet (250 mcg total) by mouth every 12 (twelve) hours. 60 tablet 3 06/28/2024 Active Start: 06-28-2024 take 1 tablet by nikolay th in the morning digoxin (Lanoxin) 250 MCG tab;et Take 250 mcg by mouth in the morning and 250 mcg in the evening. 06/28/2024 Active isopropyl alcohol 0.7 ml/ml medicated pad (7 sources) Start: 06-26-2024 End: 07-06-2024 alcohol swabs pads, medicated Indications: Diet controlled gestational diabetes mellitus (GDM) in third trimester To use when performing a fingerstick 200 each 07/06/2024 Active magnesium oxide 400 mg oral tablet (8 sources) Start: 06-28-2024 take 1 tablet by mouth in the morning, then take 1 tablet by mouth at bedtime magnesium oxide (MAGOX) 400 mg tablet Take 1 tablet (400 mg total) by mouth in the morning and 1 tablet (400 mg total) before bedtime. 60 tablet 3 06/28/2024 Active ondansetron 4 mg oral tablet (18 sources) Serotonin-3 Receptor Antagonist Start: 05-28-2022 take [...] 10 5 April 04, 2024 12:00am Pnv,Calcium 95-Lpjp-Brxma Acid ( Vitamin Plus Low Iron) 27 mg iron- 1 mg tablet (1 source) Start: 04-04-2024 take 1 tablet by mouth once daily Pnv,Calcium 91-Ytwe-Znehg Acid ( Vitamin Plus Low Iron) 27 mg iron- 1 mg tablet Active 1 TAB PO Daily April 04, 2024 12:00am potassium chloride 10 meq extended release oral tablet (8 sources) Start: 06-28-2024 potassium chloride (K-TAB,KLOR-CON) 10 MEQ CR tablet Take 5 tablets (50 mEq total) by mouth in the morning. 150 tablet 3 06/28/2024 Active ah999-bjdi-jlmpr acid ( 19) 29 mg iron- 1 mg tablet,chewable (15 sources) ls707-mjfx-guyzz acid ( 19) 29 mg iron- 1 mg tablet,chewable Chew 1 tablet and swallow in the morning. Active uv033-p enrique-folic acid ( 19) 29 mg iron- 1 mg tablet,chewable Chew 1 tablet and swallow in the morning. Suspended Vit-Fe Fumarate-FA (PNV Plus Multivitamin) 27-1 MG tablet (18 sources) Start: 04-23-2024 End: 04-23-2025 take 1 [...] Daily 30 tablet 11 02/11/2024 02/10/2025 Active Vit-Fe Fumarate-FA ( Plus) 27-1 MG tablet (2 sources) Vit-Fe Fumarate-FA ( Plus) 27-1 MG tablet Active Vit-Fe Fumarate-FA ( Vitamins) 28-0.8 MG tablet (7 sources) Start: 05-11-2024 End: 05-11-2025 take 1 tablet by mouth once daily Vit-Fe Fumarate-FA ( Vitamins) 28-0.8 MG tablet Indications: Second trimester Take 1 tablet by mouth Daily 30 tablet 11 05/11/2024 05/11/2025 Active sotalol hydrochloride 160 mg oral tablet (8 sources) Antiarrhythmic Start: 06-28-2024 take 1 tablet by mouth once sotaloL (BETAPACE) 160 mg tablet Take 1 tablet (160 mg total) by mouth every 12 (twelve) hours. 60 tablet 3 06/28/2024 Active Start: 06-28-2024 take 1 tablet by nikolay th in the morning sotalol (Betapace) 160 MG tablet Take 160 mg by mouth in the morning and 160 mg in the evening. 06/28/2024 Active Completed/Discontinued Medications Medication Drug Class(es) Dates Sig (Normalized) Sig (Original) Ethinyl Estradiol / Ferrous fumarate / Norethindrone (11 sources) Estrogen Start: 03-05-202203/23, 28, 1 mg-20 mcg (21)/75 mg (7) per tablet TAKE 1 TABLET DAILY 84 tablet 03/05/2022 Suspended Start: 03-05-202203/23, 28, 1 mg-20 mcg (21)/75 mg (7) per tablet TAKE 1 TABLET DAILY 84 tablet 03/05/2022 Active Problems Active Problems Problem Classification Problem Date Documented Date Episodic/Chronic Conditions associated with dizziness or vertigo (1 source) Dizziness and giddiness; Translations: [Dizziness and giddiness] Onset: 06-11-2024 Episodic Diabetes or abnormal glucose tolerance complicating ; childbirth; or the puerperium (7 sources) Gestational diabetes mellitus; Translations: [Gestational diabetes mellitus in , diet controlled] Onset: 07-06-2024 06-26-2024 Episodic Immunizations and screening for infectious disease (2 [...] Translations: [Irregular menstruation, unspecified] 02-11-2024 Chronic Other aftercare (1 source) Encounter for therapeutic drug level monitoring; Translations: [Encounter for therapeutic drug level monitoring] Onset: 06-11-2024 Episodic Other aftercare (1 source) Other shelter (current) drug therapy; Translations: [Other shelter (current) drug therapy] Onset: 06-11-2024 Episodic Other complications of (20 sources) tachycardia affecting management of mother; Translations: [Maternal care for abnormalities of the heart rate or rhythm, unspecified trimester, not applicable or unspecified] Onset: 06-11-2024 06-10-2024 Episodic Other complications of (18 sources) Excessive growth affecting management of mother; Translations: [Maternal care for excessive growth, second trimester, not applicable or unspecified] Onset: 06-11-2024 06-11-2024 Episodic Other complications of (1 source) Maternal care for abnormalities of the heart rate or rhythm, unspecified trimester, not applicable or unspecified; Translations: [Maternal care for abnormalities of the heart rate or rhythm, unspecified trimester, not applicable or unspecified] Onset: 07-10-2024 Episodic Other complications of (1 source) Maternal care for excessive growth, second trimester, not applicable or unspecified; Translations: [Maternal care for excessive growth, second trimester, not applicable or unspecified] Onset: 06-11-2024 Episodic Other female genital disorders (2 sources) Vaginal discharge; Translations: [Other specified noninflammatory disorders of vagina] 04-15-2024 Episodic Other and delivery including normal (20 sources) ; Translations: [Encounter for supervision of normal , unspecified, unspecified trimester] Onset: 06-11-2024 02-11-2024 Episodic Other screening for suspected conditions (not mental disorders or infectious disease) (4 sources) Patient encounter status; Translations: [Encounter for other specified screening] Onset: 06-11-2024 04-15-2024 Episodic Other upper respiratory infections (1 source) Acute pharyngitis, unspecified; Translations: [ACUTE PHARYNGITIS UNSPECIFIED] Onset: 12-07-2020 Episodic Polyhydramnios and other problems of amniotic cavity (20 sources) Polyhydramnios; Translations: [Polyhydramnios, unspecified trimester, not applicable or unspecified] Onset: 06-11-2024 06-11-2024 Episodic Residual codes; unclassified (1 source) Gestation period, 10 weeks; Translations: [10 weeks gestation of ] 02-11-2024 Episodic Residual codes; unclassified (2 sources) Gestation period, 15 weeks; Translations: [15 weeks gestation of ] 03-16-2024 Episodic Residual codes; unclassified (2 sources) Gestation period, 19 weeks; Translations: [19 weeks gestation of ] 04-15-2024 Episodic Residual codes; unclassified (3 sources) Gestation period, 27 weeks; Translations: [27 weeks gestation of ] 06-10-2024 Episodic Residual codes; unclassified (2 sources) Gestation period, 30 weeks; Translations: [30 weeks gestation of ] 06-30-2024 Episodic Unclassified (3 sources) CONTACT W/AND (SUSP) EXPOS COVID-19; Translations: [CONTACT W/AND (SUSP) EXPOS COVID-19] Onset: 12-07-2020 Unclassified (1 source) Initial Visit Onset: 07-10-2024 Unclassified (1 source) Gestational Diabetes Onset: 07-06-2024 Unclassified (1 source) SVT Onset: 06-11-2024 Past or Other Problems Problem Classification Problem Date Documented Da te Episodic/Chronic Mood disorders (17 sources) Mood disorders Onset: 05-28-2022 05-28-2022 Unclassified [...] Test Name Value Interpretation Reference Range Facility Glucose random or fasting- P OCTOrdered By: Ravinder Burnett on 07-06-2024 External Glucose Fasting Or Random (Fbs) 91 [facility] Urinalysis macro (dipstick) panel (U)on 06-30-2024 Bilirubin, UA Negative Negative - 4(70) +++ mg/dL [facility] Blood, UA Negative Negative - 50 Jordan/mcL [facility] Clarity, UA Clear [facility] re Color, UA Yellow [facility] Glucose, UA Negative Negative - 1999(110) ++++ mg/dL [facility] Interpretation and review of laboratory results Abnormal [facility] Ketones, UA Positive Negative - 160(16) ++++ mg/dL [facility] Leukocytes, UA Negative Negative - 500+++ Leanne/mcL [facility] Nitrite, UA Negative Negative - Positive [facility] pH, UA 6 5 - 9 [facility] e Protein, UA Negative Negative - 1999(20) ++++ mg/dL [facility] Spec Grav, UA 1.025 1 - 1.03 [facility] care Urobilinogen, UA 1.0 0.2 - 12 mg/dL [facility] BEDSIDE GLUCOSEon 06-28-2024 Glucose [Mass/Vol] 124 mg/dL High 65-99 [facility] Comment on above: Performed By: #### C BCA, CMP, 22297-2, 04141-2, 2777-1, 15823- 5 #### [facility] ([id number]) [address], [address] [place] [address] Glucose [Mass/Vol] 92 mg/dL Normal 65-99 [facility] Comment on above: Performed By: #### C BCA, CMP, 06727-9, 02016-6, 2777-1, 92137- 5 #### [facility] ([id number]) [address], [address] [place] [address] COMPREHENSIVE METABOLIC PANE Ab 06-28-2024 Albumin [Mass/Vol] 3.3 g/dL Normal 3.2-5.3 [facility] Comment on above: Performed By: #### C BCA, CMP, 90523-7, 11160-4, 2777-1, 46145- 5 #### [facility] ([id number]) [address], [address] [place] [address] ALP [Catalytic activity/Vol] 74 U/L Normal 39-130 [facility] Comment on above: Performed By: #### C BCA, CMP, 72159-4, 62990-3, 2777-1, 91537- 5 #### [facility] ([id number]) [address], [address] [place] [address] ALT [Catalytic activity/Vol] 8 U/L Normal <=31 [facility] Comment on above: Performed By: #### C BCA, CMP, 72705-9, 08247-4, 2777-1, 61251- 5 #### [facility] ([id number]) [address], [address] [place] [address] Anion gap [Moles/Vol] 12 mmol/L Normal 5-15 [facility] Comment on above: Performed By: #### C BCA, CMP, 02973-7, 32108-3, 2777-1, 57357- 5 #### [facility] ([id number]) [address], [address] [place] [address] AST [Catalytic activity/Vol] 13 U/L Normal <=41 [facility] Comment on above: Performed By: #### C BCA, CMP, 69586-7, 85822-2, 2777-1, 13758- 5 #### [facility] ([id number]) [address], [address] [place] [address] Bilirubin [Mass/Vol] 0.4 mg/dL Normal 0.3-1.2 [facility] Comment on above: Performed By: #### C BCA, CMP, 48221-9, 55442-3, 2777-1, 79871- 5 #### [facility] ([id number]) [address], [address] [place] [address] Calcium [Mass/Vol] 9.0 mg/dL Normal 8.5-10.5 [facility] Comment on above: Performed By: #### C BCA, CMP, 27523-2, 52539-0, 2777-1, 73071- 5 #### [facility] ([id number]) [address], [address] [place] [address] Chloride [Moles/Vol] 106 mmol/L Normal 98-109 [facility] Comment on above: Performed By: #### C BCA, CMP, 20787-4, 75202-7, 2777-1, 10843- 5 #### [facility] ([id number]) [address], [address] [place] [address] CO2 [Moles/Vol] 21 mmol/L Low 22-32 [facility] Comment on above: Performed By: #### C BCA, CMP, 71451-8, 95639-6, 2777-1, 49299- 5 #### [facility] ([id number]) [address], [address] [place] [address] Creatinine [Mass/Vol] 0.35 mg/dL Low 0.40-1.00 [facility] Comment on above: Result Comment: METH OD TRACEABLE TO IDMS STANDARD Performed By: #### C BCA, CMP, 20123-1, 92429-8, 2777-1, 89436-8 #### [facility] ([id number]) [address], [address] [place] [address] EGFR (CKD-EPI) NON-RACE DEPENDENT >^90 Normal >=60 [facility] Comment on above: Result Comment: Repo rted eGFR is based on the CKD-EPI 2020 equation that does not use a race coefficient. Performed By: #### C BCA, CMP, 33736-7, 24205-7, 2777-1, 92295-9 #### [facility] ([id number]) [address], [address] [place] [address] Glucose [Mass/Vol] 94 mg/dL Normal 65-99 [facility] Comment on above: Performed By: #### C BCA, CMP, 97747-7, 50420-1, 2777-1, 51220- 5 #### [facility] ([id number]) [address], [address] [place] [address] Potassium [Moles/Vol] 3.6 mmol/L Normal 3.5-5.0 [facility] Comment on above: Performed By: #### C BCA, CMP, 65239-5, 19940-2, 2777-1, 89678- 5 #### [facility] ([id number]) [address], [address] [place] [address] Protein [Mass/Vol] 5.7 g/dL Low 6.0-8.0 [facility] Comment on above: Performed By: #### C BCA, CMP, 24814-5, 94555-0, 2777-1, 11734- 5 #### [facility] ([id number]) [address], [address] [place] [address] Sodium [Moles/Vol] 139 mmol/L Normal 134-146 [facility] Comment on above: Performed By: #### C BCA, CMP, 90579-4, 40116-5, 2777-1, 40048- 5 #### [facility] ([id number]) [address], [address] [place] [address] Urea nitrogen [Mass/Vol] 6 mg/dL Normal 5-23 [facility] Comment on above: Performed By: #### C BCA, CMP, 73819-5, 74817-4, 2777-1, 56764- 5 #### [facility] ([id number]) [address], [address] [place] [address] COMPREHENSIVE METABOLIC PANE Ab 06-27-2024 Albumin [Mass/Vol] 3.3 g/dL Normal 3.2-5.3 [facility] Comment on above: Performed By: #### C BCA, CMP, 71882-1, 83397-8, 2777-1, 18558- 5 #### [facility] ([id number]) [address], [address] [place] [address] ALP [Catalytic activity/Vol] 71 U/L Normal 39-130 [facility] Comment on above: Performed By: #### C BCA, CMP, 67645-4, 36729-0, 2777-1, 26611- 5 #### [facility] ([id number]) [address], [address] [place] [address] ALT [Catalytic activity/Vol] 7 U/L Normal 0-31 [facility] Comment on above: Performed By: #### C BCA, CMP, 39725-0, 26548-7, 2777-1, 18814- 5 #### [facility] ([id number]) [address], [address] [place] [address] Anion gap [Moles/Vol] 10 mmol/L Normal 5-15 [facility] Comment on above: Performed By: #### C BCA, CMP, 59411-7, 10273-8, 2777-1, 94531- 5 #### [facility] ([id number]) [address], [address] [place] [address] AST [Catalytic activity/Vol] 11 U/L Normal 0-41 [facility] Comment on above: Performed By: #### C BCA, CMP, 01981-6, 35680-0, 2777-1, 30716- 5 #### [facility] ([id number]) [address], [address] [place] [address] Bilirubin [Mass/Vol] 0.4 mg/dL Normal 0.3-1.2 [facility] Comment on above: Performed By: #### C BCA, CMP, 27305-6, 48329-9, 2777-1, 60740- 5 #### [facility] ([id number]) [address], [address] [place] [address] Calcium [Mass/Vol] 9.0 mg/dL Normal 8.5-10.5 [facility] Comment on above: Performed By: #### C BCA, CMP, 77679-3, 53500-4, 2777-1, 80942- 5 #### [facility] ([id number]) [address], [address] [place] [address] Chloride [Moles/Vol] 105 mmol/L Normal 98-109 [facility] Comment on above: Performed By: #### C BCA, CMP, 74642-6, 44948-5, 2777-1, 70177- 5 #### [facility] ([id number]) [address], [address] [place] [address] CO2 [Moles/Vol] 22 mmol/L Normal 22-32 [facility] Comment on above: Performed By: #### C BCA, CMP, 06483-0, 26314-3, 2777-1, 94914- 5 #### [facility] ([id number]) [address], [facility] [address] [place] [address] Creatinine [Mass/Vol] 0.30 mg/dL Low 0.40-1.00 [facility] Comment on above: Result Comment: METH OD TRACEABLE TO IDMS STANDARD Performed By: #### C BCA, CMP, 77847-2, 26592-7, 2777-1, 93841-3 #### [facility] ([id number]) [address], [facility] [address] [place] [address] eGFR (CKD-EPI) NON-RACE DEPENDENT >90 Normal >59 [facility] Comment on above: Result Comment: Reported eGFR is based on the CKD-EPI 2020 equation that does not use a race coefficient. Performed By: #### C BCA, CMP, 02087-3, 84982-3, 2777-1, 55221-1 #### [facility] ([id number]) [address], [address] [place] [address] Glucose [Mass/Vol] 104 mg/dL High 65-99 [facility] Comment on above: Performed By: #### C BCA, CMP, 47154-4, 68154-5, 2777-1, 61096- 5 #### [facility] ([id number]) [address] [address] Potassium [Moles/Vol] 3.5 mmol/L Normal 3.5-5.0 [facility] Comment on above: Performed By: #### C BCA, CMP, 90363-3, 84978-6, 2777-1, 02533- 5 #### [facility] ([id number]) [address], [address] [place] [address] Protein [Mass/Vol] 5.6 g/dL Low 6.0-8.0 [facility] Comment on above: Performed By: #### C BCA, CMP, 88597-1, 80092-7, 2777-1, 75208- 5 #### [facility] ([id number]) [address], [address] [place] [address] Sodium [Moles/Vol] 137 mmol/L Normal 134-146 [facility] Comment on above: Performed By: #### C BCA, CMP, 47098-8, 93266-2, 2777-1, 53250- 5 #### [facility] ([id number]) [address], [address] [place] [address] Urea nitrogen [Mass/Vol] 6 mg/dL Normal 5-23 [facility] Comment on above: Performed By: #### C BCA, CMP, 98521-1, 45448-2, 2777-1, 15464- 5 #### [facility] ([id number]) [address], [address] [place] [address] Glucose Glucometer (BldC) [M ass/Vol]on 06-27-2024 Glucose [Mass/Vol] 102 mg/dL High 65-99 [facility] Glucose [Mass/Vol] 115 mg/dL High 65-99 [facility] Glucose [Mass/Vol] 183 mg/dL High 65-99 [facility] Glucose [Mass/Vol] 156 mg/dL High 65-99 [facility] Glucose [Mass/Vol] 108 mg/dL High 65-99 [facility] MAGNESIUMon 06-27-2024 Magnesium [Mass/Vol] 1.5 mg/dL Low 1.8-2.6 [facility] Comment on above: Performed By: #### C BCA, CMP, 43812-2, 58911-6, 2777-1, 92897- 5 #### [facility] ([id number]) [address], [address] [place] [address] COMPREHENSIVE METABOLIC PANE Ab 06-26-2024 Albumin [Mass/Vol] 3.4 g/dL Normal 3.2-5.3 [facility] Comment on above: Performed By: #### C BCA, CMP, 25703-0, 50600-5, 2777-1, 56744- 5 #### [facility] ([id number]) [address], [address] [place] [address] ALP [Catalytic activity/Vol] 70 U/L Normal 39-130 [facility] Comment on above: Performed By: #### C BCA, CMP, 69980-0, 77432-7, 2777-1, 81191- 5 #### [facility] ([id number]) [address], [address] [place] [address] ALT [Catalytic activity/Vol] 8 U/L Normal 0-31 [facility] Comment on above: Performed By: #### C BCA, CMP, 02415-6, 70239-7, 2777-1, 20981- 5 #### [facility] ([id number]) [address], [address] [place] [address] Anion gap [Moles/Vol] 10 mmol/L Normal 5-15 [facility] Comment on above: Performed By: #### C BCA, CMP, 54738-3, 55610-8, 2777-1, 27304- 5 #### [facility] ([id number]) [address], [address] [place] [address] AST [Catalytic activity/Vol] 13 U/L Normal 0-41 [facility] Comment on above: Performed By: #### C BCA, CMP, 94198-7, 88455-6, 2777-1, 72217- 5 #### [facility] ([id number]) [address], [address] [place] [address] Bilirubin [Mass/Vol] 0.3 mg/dL Normal 0.3-1.2 [facility] Comment on above: Performed By: #### C BCA, CMP, 79942-5, 69867-2, 2777-1, 85662- 5 #### [facility] ([id number]) [address], [address] [place] [address] Calcium [Mass/Vol] 9.5 mg/dL Normal 8.5-10.5 [facility] Comment on above: Performed By: #### C BCA, CMP, 58682-3, 00163-3, 2777-1, 92480- 5 #### [facility] ([id number]) [address], [address] [place] [address] Chloride [Moles/Vol] 105 mmol/L Normal 98-109 [facility] Comment on above: Performed By: #### C BCA, CMP, 36134-5, 05180-0, 2777-1, 04582- 5 #### [facility] ([id number]) [address], [address] [place] [address] CO2 [Moles/Vol] 24 mmol/L Normal 22-32 [facility] Comment on above: Performed By: #### C BCA, CMP, 59845-4, 92845-7, 2777-1, 94385- 5 #### [facility] ([id number]) [address], [address] [address] Creatinine [Mass/Vol] 0.34 mg/dL Low 0.40-1.00 [facility] Comment on above: Result Comment: METH OD TRACEABLE TO IDMS STANDARD Performed By: #### C BCA, CMP, 14453-9, 38284-6, 2777-1, 34063-3 #### [facility] ([id number]) [address], [address] [place] [address] eGFR (CKD-EPI) NON-RACE DEPENDENT >90 Normal >59 [facility] Comment on above: Result Comment: Reported eGFR is based on the CKD-EPI 2020 equation that does not use a race coefficient. Performed By: #### C BCA, CMP, 39220-8, 61580-5, 2777-1, 41686-3 #### [facility] ([id number]) [address], [address] [place] [address] Glucose [Mass/Vol] 100 mg/dL High 65-99 [facility] Comment on above: Performed By: #### C BCA, CMP, 06556-5, 48932-6, 2777-1, 33483- 5 #### [facility] ([id number]) [address], [address] [place] [address] Potassium [Moles/Vol] 3.6 mmol/L Normal 3.5-5.0 [facility] Comment on above: Performed By: #### C BCA, CMP, 70819-7, 40476-9, 2777-1, 44164- 5 #### [facility] ([id number]) [address], [address] [place] [address] Protein [Mass/Vol] 5.7 g/dL Low 6.0-8.0 [facility] Comment on above: Performed By: #### C BCA, CMP, 85906-7, 18583-0, 2777-1, 10385- 5 #### [facility] ([id number]) [address], [address] [place] [address] Sodium [Moles/Vol] 139 mmol/L Normal 134-146 [facility] Comment on above: Performed By: #### C BCA, CMP, 77487-2, 78576-6, 2777-1, 54188- 5 #### [facility] ([id number]) [address], [address] [place] [address] Urea nitrogen [Mass/Vol] 7 mg/dL Normal 5-23 [facility] Comment on above: Performed By: #### C BCA, CMP, 39001-8, 22635-9, 2777-1, 81415- 5 #### [facility] ([id number]) [address], [address] [place] [address] Glucose Glucometer (BldC) [M ass/Vol]on 06-26-2024 Glucose [Mass/Vol] 112 mg/dL High 65-99 [facility] Glucose [Mass/Vol] 137 mg/dL High 65-99 [facility] Glucose [Mass/Vol] 113 mg/dL High 65-99 [facility] Glucose [Mass/Vol] 109 mg/dL High 65-99 [facility] Glucose [Mass/Vol] 101 mg/dL High 65-99 [facility] COMPREHENSIVE METABOLIC PANE Ab 06-25-2024 Albumin [Mass/Vol] 3.4 g/dL Normal 3.2-5.3 [facility] Comment on above: Performed By: #### C BCA, CMP, 37846-4, 65549-8, 2777-1, 25529- 5 #### [facility] ([id number]) [address], [facility] [address] [place] [address] ALP [Catalytic activity/Vol] 70 U/L Normal 39-130 [facility] Comment on above: Performed By: #### C BCA, CMP, 18596-7, 37358-5, 2777-1, 94568- 5 #### [facility] ([id number]) [address], [facility] [address] [place] [address] ALT [Catalytic activity/Vol] 9 U/L Normal 0-31 [facility] Comment on above: Performed By: #### C BCA, CMP, 66741-3, 69981-3, 2777-1, 59540- 5 #### [facility] ([id number]) [address], [facility] [address] [place] [address] Anion gap [Moles/Vol] 12 mmol/L Normal 5-15 [facility] Comment on above: Performed By: #### C BCA, CMP, 31303-5, 62507-3, 2777-1, 57406- 5 #### [facility] ([id number]) [address], [address] [place] [address] AST [Catalytic activity/Vol] 11 U/L Normal 0-41 [facility] Comment on above: Performed By: #### C BCA, CMP, 64471-4, 92946-5, 2777-1, 33966- 5 #### [facility] ([id number]) [address], [address] [place] [address] Bilirubin [Mass/Vol] 0.4 mg/dL Normal 0.3-1.2 [facility] Comment on above: Performed By: #### C BCA, CMP, 23621-5, 71772-0, 2777-1, 33653- 5 #### [facility] ([id number]) [address], [address] [place] [address] Calcium [Mass/Vol] 9.6 mg/dL Normal 8.5-10.5 [facility] Comment on above: Performed By: #### C BCA, CMP, 92449-2, 16579-3, 2777-1, 90273- 5 #### [facility] ([id number]) [address], [address] [place] [address] Chloride [Moles/Vol] 103 mmol/L Normal 98-109 [facility] Comment on above: Performed By: #### C BCA, CMP, 58421-9, 72930-9, 2777-1, 42012- 5 #### [facility] ([id number]) [address], [address] [place] [address] CO2 [Moles/Vol] 22 mmol/L Normal 22-32 [facility] Comment on above: Performed By: #### C BCA, CMP, 53692-3, 41535-7, 2777-1, 18341- 5 #### [facility] ([id number]) [address], [address] [place] [address] Creatinine [Mass/Vol] 0.28 mg/dL Low 0.40-1.00 [facility] Comment on above: Result Comment: METH OD TRACEABLE TO IDMS STANDARD Performed By: #### C BCA, CMP, 25609-6, 18274-6, 2777-1, 17703-1 #### [facility] ([id number]) [address], [address] [place] [address] eGFR (CKD-EPI) NON-RACE DEPENDENT >90 Normal >59 [facility] Comment on above: Result Comment: Reported eGFR is based on the CKD-EPI 2020 equation that does not use a race coefficient. Performed By: #### C BCA, CMP, 78636-7, 19357-6, 2777-1, 17588-8 #### [facility] ([id number]) [address], [address] [place] [address] Glucose [Mass/Vol] 93 mg/dL Normal 65-99 [facility] Comment on above: Performed By: #### C BCA, CMP, 27129-4, 93007-1, 2777-1, 58207- 5 #### [facility] ([id number]) [address], [address] [place] [address] Potassium [Moles/Vol] 3.5 mmol/L Normal 3.5-5.0 [facility] Comment on above: Performed By: #### C BCA, CMP, 51359-6, 15433-5, 2777-1, 35259- 5 #### [facility] ([id number]) [address], [address] [place] [address] Protein [Mass/Vol] 5.8 g/dL Low 6.0-8.0 [facility] Comment on above: Performed By: #### C BCA, CMP, 27227-4, 07099-6, 2777-1, 05443- 5 #### [facility] ([id number]) [address], [address] [place] [address] Sodium [Moles/Vol] 137 mmol/L Normal 134-146 [facility] Comment on above: Performed By: #### C BCA, CMP, 08320-6, 35793-4, 2777-1, 52881- 5 #### [facility] ([id number]) [address], [address] [place] [address] Urea nitrogen [Mass/Vol] 7 mg/dL Normal 5-23 [facility] Comment on above: Performed By: #### C BCA, CMP, 89540-8, 27745-4, 2777-1, 20908- 5 #### [facility] ([id number]) [address], [address] [place] [address] Glucose Glucometer (BldC) [M ass/Vol]on 06-25-2024 Glucose [Mass/Vol] 113 mg/dL High 65-99 [facility] Glucose [Mass/Vol] 122 mg/dL High 65-99 [facility] Glucose [Mass/Vol] 145 mg/dL High 65-99 [facility] COMPREHENSIVE METABOLIC PANE Ab 06-24-2024 Albumin [Mass/Vol] 3.5 g/dL Normal 3.2-5.3 [facility] Comment on above: Performed By: #### C BCA, CMP, 86731-5, 71577-9, 2777-1, 00286- 5 #### [facility] ([id number]) [address], [address] [place] [address] ALP [Catalytic activity/Vol] 70 U/L Normal 39-130 [facility] Comment on above: Performed By: #### C BCA, CMP, 48254-0, 86917-0, 2777-1, 48857- 5 #### [facility] ([id number]) [address], [address] [place] [address] ALT [Catalytic activity/Vol] 8 U/L Normal 0-31 [facility] Comment on above: Performed By: #### C BCA, CMP, 94156-1, 81855-9, 2777-1, 22248- 5 #### [facility] ([id number]) [address], [address] [place] [address] Anion gap [Moles/Vol] 12 mmol/L Normal 5-15 [facility] Comment on above: Performed By: #### C BCA, CMP, 43452-1, 82390-9, 2777-1, 01938- 5 #### [facility] ([id number]) [address], [address] [place] [address] AST [Catalytic activity/Vol] 12 U/L Normal 0-41 [facility] Comment on above: Performed By: #### C BCA, CMP, 70526-1, 90222-0, 2777-1, 61123- 5 #### [facility] ([id number]) [address], [address] [place] [address] Bilirubin [Mass/Vol] 0.4 mg/dL Normal 0.3-1.2 [facility] Comment on above: Performed By: #### C BCA, CMP, 82238-9, 45023-3, 2777-1, 20075- 5 #### [facility] ([id number]) [address], [address] [place] [address] Calcium [Mass/Vol] 9.2 mg/dL Normal 8.5-10.5 [facility] Comment on above: Performed By: #### C BCA, CMP, 14941-9, 66928-5, 2777-1, 34443- 5 #### [facility] ([id number]) [address], [address] [place] [address] Chloride [Moles/Vol] 103 mmol/L Normal 98-109 [facility] Comment on above: Performed By: #### C BCA, CMP, 55417-8, 78801-2, 2777-1, 61636- 5 #### [facility] ([id number]) [address], [address] [place] [address] CO2 [Moles/Vol] 22 mmol/L Normal 22-32 [facility] Comment on above: Performed By: #### C BCA, CMP, 47533-7, 47003-6, 2777-1, 22750- 5 #### [facility] ([id number]) [address], [address] [place] [address] Creatinine [Mass/Vol] 0.31 mg/dL Low 0.40-1.00 [facility] Comment on above: Result Comment: METH OD TRACEABLE TO IDMS STANDARD Performed By: #### C BCA, CMP, 77917-0, 99750-0, 2777-1, 17122-9 #### [facility] ([id number]) [address], [facility] [address] [place] [address] eGFR (CKD-EPI) NON-RACE DEPENDENT >90 Normal >59 [facility] Comment on above: Result Comment: Reported eGFR is based on the CKD-EPI 2020 equation that does not use a race coefficient. Performed By: #### C BCA, CMP, 89080-1, 13354-8, 2777-1, 47739-1 #### [facility] ([id number]) [address], [address] [place] [address] Glucose [Mass/Vol] 92 mg/dL Normal 65-99 [facility] Comment on above: Performed By: #### C BCA, CMP, 96354-0, 25155-2, 2777-1, 02622- 5 #### [facility] ([id number]) [address] [address] [place] [address] Potassium [Moles/Vol] 3.8 mmol/L Normal 3.5-5.0 [facility] Comment on above: Performed By: #### C BCA, CMP, 22159-8, 26654-1, 2777-1, 85510- 5 #### [facility] ([id number]) [address], [address] [place] [address] Protein [Mass/Vol] 5.9 g/dL Low 6.0-8.0 [facility] Comment on above: Performed By: #### C BCA, CMP, 92341-6, 45185-3, 2777-1, 91083- 5 #### [facility] ([id number]) [address], [address] [place] [address] Sodium [Moles/Vol] 137 mmol/L Normal 134-146 [facility] Comment on above: Performed By: #### C BCA, CMP, 16894-5, 75093-6, 2777-1, 51488- 5 #### [facility] ([id number]) [address], [address] [place] [address] Urea nitrogen [Mass/Vol] 7 mg/dL Normal 5-23 [facility] Comment on above: Performed By: #### C BCA, CMP, 79677-6, 69707-2, 2777-1, 85971- 5 #### [facility] ([id number]) [address], [address] [place] [address] DIGOXINon 06-24-2024 Digoxin [Mass/Vol] 1.3 ng/mL Normal 0.8-2.0 [facility] Comment on above: Performed By: #### C BCA, CMP, 54835-3, 11861-2, 2777-1, 46397- 5 #### [facility] ([id number]) [address], [address] [place] [address] Glucose Glucometer (BldC) [M ass/Vol]on 06-24-2024 Glucose [Mass/Vol] 106 mg/dL High 65-99 [facility] Glucose [Mass/Vol] 113 mg/dL High 65-99 [facility] Glucose [Mass/Vol] 116 mg/dL High 65-99 [facility] Glucose [Mass/Vol] 93 mg/dL Normal 65-99 [facility] MAGNESIUMon 06-24-2024 Magnesium [Mass/Vol] 1.6 mg/dL Low 1.8-2.6 [facility] Comment on above: Performed By: #### C BCA, CMP, 69222-5, 15430-8, 2777-1, 90527- 5 #### [facility] ([id number]) [address], [address] [place] [address] POTASSIUMon 06-24-2024 Potassium [Moles/Vol] 3.7 mmol/L Normal 3.5-5.0 [facility] Comment on above: Performed By: #### C BCA, CMP, 83952-2, 39928-2, 2777-1, 39438- 5 #### [facility] ([id number]) [address], [address] [place] [address] COMPREHENSIVE METABOLIC PANE Ab 06-23-2024 Albumin [Mass/Vol] 3.6 g/dL Normal 3.2-5.3 [facility] Comment on above: Performed By: #### C BCA, CMP, 37590-8, 77528-9, 2777-1, 59939- 5 #### [facility] ([id number]) [address], [address] [place] [address] ALP [Catalytic activity/Vol] 74 U/L Normal 39-130 [facility] Comment on above: Performed By: #### C BCA, CMP, 54025-0, 24899-7, 2777-1, 59112- 5 #### [facility] ([id number]) [address], [address] [place] [address] ALT [Catalytic activity/Vol] 8 U/L Normal 0-31 [facility] Comment on above: Performed By: #### C BCA, CMP, 44075-4, 39502-9, 2777-1, 83103- 5 #### [facility] ([id number]) [address], [address] [place] [address] Anion gap [Moles/Vol] 13 mmol/L Normal 5-15 [facility] Comment on above: Performed By: #### C BCA, CMP, 31714-6, 71799-0, 2777-1, 73347- 5 #### [facility] ([id number]) [address], [address] [place] [address] AST [Catalytic activity/Vol] 10 U/L Normal 0-41 [facility] Comment on above: Performed By: #### C BCA, CMP, 46397-2, 57362-7, 2777-1, 62506- 5 #### [facility] ([id number]) [address], [address] [place] [address] Bilirubin [Mass/Vol] 0.3 mg/dL Normal 0.3-1.2 [facility] Comment on above: Performed By: #### C BCA, CMP, 19834-2, 13769-0, 2777-1, 08409- 5 #### [facility] ([id number]) [address], [address] [place] [address] Calcium [Mass/Vol] 9.6 mg/dL Normal 8.5-10.5 [facility] Comment on above: Performed By: #### C BCA, CMP, 37288-8, 16535-8, 2777-1, 11480- 5 #### [facility] ([id number]) [address], [address] [place] [address] Chloride [Moles/Vol] 103 mmol/L Normal 98-109 [facility] Comment on above: Performed By: #### C BCA, CMP, 21579-9, 48020-3, 2777-1, 47911- 5 #### [facility] ([id number]) [address], [address] [place] [address] CO2 [Moles/Vol] 23 mmol/L Normal 22-32 [facility] Comment on above: Performed By: #### C BCA, CMP, 22717-8, 19499-4, 2777-1, 22206- 5 #### [facility] ([id number]) [address], [address] [place] [address] Creatinine [Mass/Vol] 0.28 mg/dL Low 0.40-1.00 [facility] Comment on above: Result Comment: METH OD TRACEABLE TO IDMS STANDARD Performed By: #### C BCA, CMP, 00258-0, 43380-4, 2777-1, 44647-0 #### [facility] ([id number]) [address], [address] [place] [address] eGFR (CKD-EPI) NON-RACE DEPENDENT >90 Normal >59 [facility] Comment on above: Result Comment: Reported eGFR is based on the CKD-EPI 2020 equation that does not use a race coefficient. Performed By: #### C BCA, CMP, 81302-3, 36562-0, 277-, 01957-1 #### [facility] ([id number]) [address], [address] [place] [address] Glucose [Mass/Vol] 98 mg/dL Normal 65-99 [facility] Comment on above: Performed By: #### C BCA, CMP, 79479-0, 99632-2, 277-, 62279- 5 #### [facility] ([id number]) [address] [address] Potassium [Moles/Vol] 3.6 mmol/L Normal 3.5-5.0 [facility] Comment on above: Performed By: #### C BCA, CMP, 61414-5, 28091-7, 2777-1, 03140- 5 #### [facility] ([id number]) [address] [address] [place] [address] Protein [Mass/Vol] 6.1 g/dL Normal 6.0-8.0 [facility] Comment on above: Performed By: #### C BCA, CMP, 95631-4, 59839-7, 2777-1, 39058- 5 #### [facility] ([id number]) [address], [address] [place] [address] Sodium [Moles/Vol] 139 mmol/L Normal 134-146 [facility] Comment on above: Performed By: #### C BCA, CMP, 09355-3, 63232-9, 2777-1, 08012- 5 #### [facility] ([id number]) [address], [address] [place] [address] Urea nitrogen [Mass/Vol] 5 mg/dL Normal 5-23 [facility] Comment on above: Performed By: #### C BCA, CMP, 89782-4, 28572-7, 2777-1, 75937- 5 #### [facility] ([id number]) [address], [address] [place] [address] DIGOXINon 06-23-2024 Digoxin [Mass/Vol] 1.5 ng/mL Normal 0.8-2.0 [facility] Comment on above: Performed By: #### C BCA, CMP, 13432-3, 22337-3, 2777-1, 24622- 5 #### [facility] ([id number]) [address] [place] [address] Glucose Glucometer (BldC) [M ass/Vol]on 06-23-2024 Glucose [Mass/Vol] 129 mg/dL High 65-99 [facility] Glucose [Mass/Vol] 127 mg/dL High 65-99 [facility] Glucose [Mass/Vol] 120 mg/dL High 65-99 [facility] Glucose [Mass/Vol] 98 mg/dL Normal 65-99 [facility] MAGNESIUMon 06-23-2024 Magnesium [Mass/Vol] 1.7 mg/dL Low 1.8-2.6 [facility] Comment on above: Performed By: #### C BCA, CMP, 63546-1, 54423-8, 2777-1, 20333- 5 #### [facility] ([id number]) [address], [address] [place] [address] Magnesium [Mass/Vol] 1.8 mg/dL Normal 1.8-2.6 [facility] Comment on above: Performed By: #### C BCA, CMP, 38171-4, 05980-2, 2777-1, 46366- 5 #### [facility] ([id number]) [address] [place] [address] Magnesium [Mass/Vol] 1.7 mg/dL Low 1.8-2.6 [facility] Comment on above: Performed By: #### C BCA, CMP, 77673-2, 47997-3, 277-1, 12361- 5 #### [facility] ([id number]) [address] [place] [address] POTASSIUMon 06-23-2024 Potassium [Moles/Vol] 3.8 mmol/L Normal 3.5-5.0 [facility] Comment on above: Performed By: #### C BCA, CMP, 00310-7, 01835-4, 277-1, 36305- 5 #### [facility] ([id number]) [address], [address] [place] [address] Potassium [Moles/Vol] 3.7 mmol/L Normal 3.5-5.0 [facility] Comment on above: Performed By: #### C BCA, CMP, 82469-3, 11411-0, 2777-1, 81913- 5 #### [facility] ([id number]) [address], [address] [place] [address] COMPREHENSIVE METABOLIC PANE Ab 06-22-2024 Albumin [Mass/Vol] 3.5 g/dL Normal 3.2-5.3 [facility] Comment on above: Performed By: #### C BCA, CMP, 21108-8, 56127-0, 2777-1, 50866- 5 #### [facility] ([id number]) [address], [address] [place] [address] ALP [Catalytic activity/Vol] 64 U/L Normal 39-130 [facility] Comment on above: Performed By: #### C BCA, CMP, 47191-3, 39666-5, 2777-1, 19951- 5 #### [facility] ([id number]) [address], [address] [place] [address] ALT [Catalytic activity/Vol] 8 U/L Normal 0-31 [facility] Comment on above: Performed By: #### C BCA, CMP, 62842-5, 53370-3, 2777-1, 33761- 5 #### [facility] ([id number]) [address], [address] [place] [address] Anion gap [Moles/Vol] 11 mmol/L Normal 5-15 [facility] Comment on above: Performed By: #### C BCA, CMP, 03551-4, 79591-8, 2777-1, 99898- 5 #### [facility] ([id number]) [address], [address] [place] [address] AST [Catalytic activity/Vol] 12 U/L Normal 0-41 [facility] Comment on above: Performed By: #### C BCA, CMP, 05980-4, 58479-8, 2777-1, 61212- 5 #### [facility] ([id number]) [address], [address] [place] [address] Bilirubin [Mass/Vol] 0.4 mg/dL Normal 0.3-1.2 [facility] Comment on above: Performed By: #### C BCA, CMP, 31339-1, 03327-7, 2777-1, 33719- 5 #### [facility] ([id number]) [address], [address] [place] [address] Calcium [Mass/Vol] 8.8 mg/dL Normal 8.5-10.5 [facility] Comment on above: Performed By: #### C BCA, CMP, 49724-4, 88894-4, 2777-1, 82144- 5 #### [facility] ([id number]) [address], [address] [place] [address] Chloride [Moles/Vol] 102 mmol/L Normal 98-109 [facility] Comment on above: Performed By: #### C BCA, CMP, 22527-6, 51703-2, 2777-1, 25134- 5 #### [facility] ([id number]) [address], [address] [place] [address] CO2 [Moles/Vol] 22 mmol/L Normal 22-32 [facility] Comment on above: Performed By: #### C BCA, CMP, 31346-0, 86321-3, 2777-1, 49456- 5 #### [facility] ([id number]) [address], [address] [place] [address] Creatinine [Mass/Vol] 0.30 mg/dL Low 0.40-1.00 [facility] Comment on above: Result Comment: METH OD TRACEABLE TO IDMS STANDARD Performed By: #### C BCA, CMP, 93747-9, 03611-1, 2777-1, 02926-1 #### [facility] ([id number]) [address], [address] [place] [address] eGFR (CKD-EPI) NON-RACE DEPENDENT >90 Normal >59 [facility] Comment on above: Result Comment: Reported eGFR is based on the CKD-EPI 2020 equation that does not use a race coefficient. Performed By: #### C BCA, CMP, 28361-6, 77045-8, 2777-1, 19778-9 #### [facility] ([id number]) [address], [address] [place] [address] Glucose [Mass/Vol] 130 mg/dL High 65-99 [facility] Comment on above: Performed By: #### C BCA, CMP, 25445-3, 41599-4, 2777-1, 00708- 5 #### [facility] ([id number]) [address], [address] [place] [address] Potassium [Moles/Vol] 3.9 mmol/L Normal 3.5-5.0 [facility] Comment on above: Performed By: #### C BCA, CMP, 83184-8, 55911-1, 2777-1, 88579- 5 #### [facility] ([id number]) [address], [address] [place] [address] Protein [Mass/Vol] 6.0 g/dL Normal 6.0-8.0 [facility] Comment on above: Performed By: #### C BCA, CMP, 29045-7, 93344-5, 2777-1, 68565- 5 #### [facility] ([id number]) [address], [address] [place] [address] Sodium [Moles/Vol] 135 mmol/L Normal 134-146 [facility] Comment on above: Performed By: #### C BCA, CMP, 30467-4, 48330-7, 2777-1, 85312- 5 #### [facility] ([id number]) [address], [address] [place] [address] Urea nitrogen [Mass/Vol] 7 mg/dL Normal 5-23 [facility] Comment on above: Performed By: #### C BCA, CMP, 93037-3, 09769-7, 2777-1, 64417- 5 #### [facility] ([id number]) [address], [address] [place] [address] DIGOXINon 06-22-2024 Digoxin [Mass/Vol] 1.6 ng/mL Normal 0.8-2.0 [facility] Comment on above: Performed By: #### C BCA, CMP, 74043-9, 51349-5, 2777-1, 46101- 5 #### [facility] ([id number]) [address] [place] [address] Glucose Glucometer (BldC) [M ass/Vol]on 06-22-2024 Glucose [Mass/Vol] 133 mg/dL High 65-99 [facility] Glucose [Mass/Vol] 133 mg/dL High 65-99 [facility] Glucose [Mass/Vol] 127 mg/dL High 65-99 [facility] Glucose [Mass/Vol] 103 mg/dL High 65-99 [facility] comment Víctor (Repo rt)on 06-22-2024 UNLISTED LAB TEST Sent to reference lab Normal [facility] MAGNESIUMon 06-22-2024 Magnesium [Mass/Vol] 1.6 mg/dL Low 1.8-2.6 [facility] Comment on above: Performed By: #### C BCA, CMP, 92421-4, 07861-7, 2777-1, 91745- 5 #### [facility] ([id number]) [address], [address] [place] [address] Magnesium [Mass/Vol] 1.9 mg/dL Normal 1.8-2.6 [facility] Comment on above: Performed By: #### C BCA, CMP, 12698-1, 46692-5, 2777-1, 88810- 5 #### [facility] ([id number]) [address], [address] [place] [address] Magnesium [Mass/Vol] 1.7 mg/dL Low 1.8-2.6 [facility] Comment on above: Performed By: #### C BCA, CMP, 67589-1, 05027-5, 2777-1, 44670- 5 #### [facility] ([id number]) [address] [place] [address] LANDAVERDE GENERIC ORDERon 025 TEST NAME ALBERTO MARXIDE ON NO GEL SERUM Normal [facility] TEST RESULT SEE COMMENTS 06/23/2024 12:49 PM Normal [facility] Comment on above: Result Comment: NOTE Test Result Flag Unit RefValue -- Flecainide, S 0.5 mcg/mL REFERENCE VALUE 0.2 - 1.0 (Therapeutic concentration, trough value), >1.0 (Toxic concentration, trough value) ADDITIONAL INFORMATION This test was developed and its performance characteristics determined by [facility] in a manner consistent with CLIA requirements. This test has not been cleared or approved by the U.S. Food and Drug Administration. Test Performed by: [facility] [address] [place] [address] Statistician Applied: Mino Cain Ph.D.; CLIA# [id number] Magnesium Ionized ISE (Bld) [Moles/Vol]on 06-22-2024 Magnesium [Moles/Vol] 0.45 mmol/L Normal 0.45-0.74 [facility] Comment on above: Result Comment: NEW REFERENCE RANGE Performed By: #### C BCA, CMP, 65675-8, 91997-9, 2777-1, 70246-2 #### [facility] ([id number]) [address] [place] [address] POTASSIUMon 06-22-2024 Potassium [Moles/Vol] 4.1 mmol/L Normal 3.5-5.0 [facility] Comment on above: Performed By: #### C BCA, CMP, , 95764-9, 2777-1, 34550- 5 #### [facility] ([id number]) [address], [address] [place] [address] COMPREHENSIVE METABOLIC PANE Ab 06-21-2024 Albumin [Mass/Vol] 3.7 g/dL Normal 3.2-5.3 [facility] Comment on above: Performed By: #### B ROCIO, #### [facility] ([id number]) [address], [address] [place] [address] ALP [Catalytic activity/Vol] 67 U/L Normal 39-130 [facility] Comment on above: Performed By: #### Jahaira CHAN, #### [facility] ([id number]) [address], [address] [place] [address] ALT [Catalytic activity/Vol] 8 U/L Normal 0-31 [facility] Comment on above: Performed By: #### Jahaira CHAN, #### [facility] ([id number]) [address], [address] [place] [address] Anion gap [Moles/Vol] 11 mmol/L Normal 5-15 [facility] Comment on above: Performed By: #### Jahaira CHAN, #### [facility] ([id number]) [address], [address] [place] [address] AST [Catalytic activity/Vol] 13 U/L Normal 0-41 [facility] Comment on above: Performed By: #### Jahaira CHAN, #### [facility] ([id number]) [address], [address] [place] [address] Bilirubin [Mass/Vol] 0.4 mg/dL Normal 0.3-1.2 [facility] Comment on above: Performed By: #### Jahaira CHAN, #### [facility] ([id number]) [address], [address] [place] [address] Calcium [Mass/Vol] 10.6 mg/dL High 8.5-10.5 [facility] Comment on above: Performed By: #### B ROCIO, #### [facility] ([id number]) [address], [address] [place] [address] Chloride [Moles/Vol] 101 mmol/L Normal 98-109 [facility] Comment on above: Performed By: #### B ROCIO, #### [facility] ([id number]) [address], [address] [place] [address] CO2 [Moles/Vol] 23 mmol/L Normal 22-32 [facility] Comment on above: Performed By: #### B ROCIO, #### [facility] ([id number]) [address], [address] [place] [address] Creatinine [Mass/Vol] 0.35 mg/dL Low 0.40-1.00 [facility] Comment on above: Result Comment: METH OD TRACEABLE TO IDMS STANDARD Performed By: #### B ROCIO, #### [facility] ([id number]) [address], [address] [place] [address] eGFR (CKD-EPI) NON-RACE DEPENDENT >90 Normal >59 [facility] Comment on above: Result Comment: Reported eGFR is based on the CKD-EPI 2020 equation that does not use a race coefficient. Performed By: #### B ROCIO, #### [facility] ([id number]) [address], [address] [place] [address] Glucose [Mass/Vol] 126 mg/dL High 65-99 [facility] Comment on above: Performed By: #### B ROCIO, #### [facility] ([id number]) [address], [address] [place] [address] Potassium [Moles/Vol] 3.6 mmol/L Normal 3.5-5.0 [facility] Comment on above: Performed By: #### B MP, #### [facility] ([id number]) [address], [address] [place] [address] Protein [Mass/Vol] 6.2 g/dL Normal 6.0-8.0 [facility] Comment on above: Performed By: #### B MP, #### [facility] ([id number]) [address], [address] [place] [address] Sodium [Moles/Vol] 135 mmol/L Normal 134-146 [facility] Comment on above: Performed By: #### B MP, #### [facility] ([id number]) [address], [address] [place] [address] Urea nitrogen [Mass/Vol] 7 mg/dL Normal 5-23 [facility] Comment on above: Performed By: #### B MP, #### [facility] ([id number]) [address], [address] [place] [address] DIGOXINon 06-21-2024 Digoxin [Mass/Vol] 1.9 ng/mL Normal 0.8-2.0 [facility] Comment on above: Performed By: #### C BCA, CMP, , 12817-9, 2777-1, 55057- 5 #### [facility] ([id number]) [address], [address] [place] [address] Glucose Glucometer (BldC) [M ass/Vol]on 06-21-2024 Glucose [Mass/Vol] 131 mg/dL High 65-99 [facility] Glucose [Mass/Vol] 131 mg/dL High 65-99 [facility] Glucose [Mass/Vol] 98 mg/dL Normal 65-99 [facility] MAGNESIUMon 06-21-2024 Magnesium [Mass/Vol] 1.8 mg/dL Normal 1.8-2.6 [facility] Comment on above: Performed By: #### C BCA, CMP, 57154-7, 87175-4, 2777-1, 07787- 5 #### [facility] ([id number]) [address], [address] [place] [address] Magnesium [Mass/Vol] 1.5 mg/dL Low 1.8-2.6 [facility] Comment on above: Performed By: #### B MP, #### [facility] ([id number]) [address], [address] [place] [address] POTASSIUMon 06-21-2024 Potassium [Moles/Vol] 3.9 mmol/L Normal 3.5-5.0 [facility] Comment on above: Performed By: #### C BCA, CMP, , 74176-7, 2777-1, 40145- 5 #### [facility] ([id number]) [address], [address] [place] [address] COMPREHENSIVE METABOLIC PANE Ab 06-20-2024 Albumin [Mass/Vol] 3.7 g/dL Normal 3.2-5.3 [facility] Comment on above: Performed By: #### 1 558-6 #### [facility] ([id number]) [address], [address] [place] [address] ALP [Catalytic activity/Vol] 65 U/L Normal 39-130 [facility] Comment on above: Performed By: #### 1 558-6 #### [facility] ([id number]) [address], [address] [place] [address] ALT [Catalytic activity/Vol] 10 U/L Normal 0-31 [facility] Comment on above: Performed By: #### 1 558-6 #### [facility] ([id number]) [address], [address] [place] [address] Anion gap [Moles/Vol] 9 mmol/L Normal 5-15 [facility] Comment on above: Performed By: #### 1 558-6 #### [facility] ([id number]) [address], [address] [place] [address] AST [Catalytic activity/Vol] 13 U/L Normal 0-41 [facility] Comment on above: Performed By: #### 1 558-6 #### [facility] ([id number]) [address], [address] [place] [address] Bilirubin [Mass/Vol] 0.3 mg/dL Normal 0.3-1.2 [facility] Comment on above: Performed By: #### 1 558-6 #### [facility] ([id number]) [address], [address] [place] [address] Calcium [Mass/Vol] 9.4 mg/dL Normal 8.5-10.5 [facility] Comment on above: Performed By: #### 1 558-6 #### [facility] ([id number]) [address], [address] [place] [address] Chloride [Moles/Vol] 104 mmol/L Normal 98-109 [facility] Comment on above: Performed By: #### 1 558-6 #### [facility] ([id number]) [address], [address] [place] [address] CO2 [Moles/Vol] 25 mmol/L Normal 22-32 [facility] Comment on above: Performed By: #### 1 558-6 #### [facility] ([id number]) [address], [address] [place] [address] Creatinine [Mass/Vol] 0.36 mg/dL Low 0.40-1.00 [facility] Comment on above: Result Comment: METH OD TRACEABLE TO IDMS STANDARD Performed By: #### 1 558-6 #### [facility] ([id number]) [address], [address] [place] [address] eGFR (CKD-EPI) NON-RACE DEPENDENT >90 Normal >59 [facility] Comment on above: Result Comment: Reported eGFR is based on the CKD-EPI 2020 equation that does not use a race coefficient. Performed By: #### 1 558-6 #### [facility] ([id number]) [address], [address] [place] [address] Glucose [Mass/Vol] 93 mg/dL Normal 65-99 [facility] Comment on above: Performed By: #### 1 558-6 #### [facility] ([id number]) [address] [place] [address] Potassium [Moles/Vol] 3.9 mmol/L Normal 3.5-5.0 [facility] Comment on above: Performed By: #### 1 558-6 #### [facility] ([id number]) [address] [place] [address] Protein [Mass/Vol] 6.1 g/dL Normal 6.0-8.0 [facility] Comment on above: Performed By: #### 1 558-6 #### [facility] ([id number]) [address], [address] [place] [address] Sodium [Moles/Vol] 138 mmol/L Normal 134-146 [facility] Comment on above: Performed By: #### 1 558-6 #### [facility] ([id number]) [address], [address] [place] [address] Urea nitrogen [Mass/Vol] 6 mg/dL Normal 5-23 [facility] Comment on above: Performed By: #### 1 558-6 #### [facility] ([id number]) [address] [place] [address] DIGOXINon 06-20-2024 Digoxin [Mass/Vol] 1.9 ng/mL Normal 0.8-2.0 [facility] Comment on above: Performed By: #### Jahaira CHAN, 36009-1 #### [facility] ([id number]) [address], [address] [place] [address] Glucose Glucometer (BldC) [M ass/Vol]on 06-20-2024 Glucose [Mass/Vol] 130 mg/dL High 65-99 [facility] Glucose [Mass/Vol] 95 mg/dL Normal 65-99 [facility] Glucose [Mass/Vol] 123 mg/dL High 65-99 [facility] MAGNESIUMon 06-20-2024 Magnesium [Mass/Vol] 1.9 mg/dL Normal 1.8-2.6 [facility] Comment on above: Performed By: #### Jahaira CHAN, 44385-4 #### [facility] ([id number]) [address] [place] [address] Magnesium [Mass/Vol] 1.8 mg/dL Normal 1.8-2.6 [facility] Comment on above: Performed By: #### 1 558-6 #### [facility] ([id number]) [address], [address] [place] [address] Magnesium [Mass/Vol] 1.8 mg/dL Normal 1.8-2.6 [facility] Comment on above: Performed By: #### 1 558-6 #### [facility] ([id number]) [address], [address] [place] [address] POTASSIUMon 06-20-2024 Potassium [Moles/Vol] 3.7 mmol/L Normal 3.5-5.0 [facility] Comment on above: Performed By: #### Jahaira CHAN, #### [facility] ([id number]) [address] [place] [address] Potassium [Moles/Vol] 3.9 mmol/L Normal 3.5-5.0 [facility] Comment on above: Performed By: #### 1 558-6 #### [facility] ([id number]) [address] [place] [address] COMPREHENSIVE METABOLIC PANE Ab 06-19-2024 Albumin [Mass/Vol] 3.5 g/dL Normal 3.2-5.3 [facility] Comment on above: Performed By: #### Heather CHAN, ####[facility] ([id number])[address], [place] [address] ALP [Catalytic activity/Vol] 58 U/L Normal 39-130 [facility] Comment on above: Performed By: #### Heather CHAN, ####[facility] ([id number])[address], [place] [address] ALT [Catalytic activity/Vol] 9 U/L Normal 0-31 [facility] Comment on above: Performed By: #### Heather CHAN, ####[facility] ([id number])[address], [place] [address] Anion gap [Moles/Vol] 10 mmol/L Normal 5-15 [facility] Comment on above: Performed By: #### Heather CHAN, ####[facility] ([id number])[address], [place] [address] AST [Catalytic activity/Vol] 11 U/L Normal 0-41 [facility] Comment on above: Performed By: #### Heather CHAN, ####[facility] ([id number])[address], [place] [address] Bilirubin [Mass/Vol] 0.2 mg/dL Low 0.3-1.2 [facility] Comment on above: Performed By: #### C ROCIO, ####[facility] ([id number])[address] [address], [place] [address] Calcium [Mass/Vol] 8.7 mg/dL Normal 8.5-10.5 [facility] Comment on above: Performed By: #### Heather CHAN, ####[facility] ([id number])[address] [address] [place] [address] Chloride [Moles/Vol] 103 mmol/L Normal 98-109 [facility] Comment on above: Performed By: #### Heather CHAN, ####[facility] ([id number])[address] [address], [place] [address] CO2 [Moles/Vol] 24 mmol/L Normal 22-32 [facility] Comment on above: Performed By: #### Heather CHAN, ####[facility] ([id number])[address] [address], [place] [address] Creatinine [Mass/Vol] 0.37 mg/dL Low 0.40-1.00 [facility] Comment on above: Result Comment: METH OD TRACEABLE TO IDMS STANDARD Performed By: #### Heather CHAN, ####[facility] ([id number])[address] [address], [place] [address] eGFR (CKD-EPI) NON-RACE DEPENDENT >90 Normal >59 [facility] Comment on above: Result Comment: Reported eGFR is based on the CKD-EPI 2020 equation that does not use a race coefficient. Performed By: #### C ROCIO, ####[facility] ([id number])[address] [address], [place] [address] Glucose [Mass/Vol] 100 mg/dL High 65-99 [facility] Comment on above: Performed By: #### Heather CHAN, 25529-1 ####[facility] ([id number])[address] [place] [address] Potassium [Moles/Vol] 3.7 mmol/L Normal 3.5-5.0 [facility] Comment on above: Performed By: #### Heather CHAN, 38777-4 ####[facility] ([id number])[address], [place] [address] Protein [Mass/Vol] 5.9 g/dL Low 6.0-8.0 [facility] Comment on above: Performed By: #### Heather CHAN, ####[facility] ([id number])[address], [place] [address] Sodium [Moles/Vol] 137 mmol/L Normal 134-146 [facility] Comment on above: Performed By: #### Heather CHAN, ####[facility] ([id number])[address] [place] [address], [place] [address] Urea nitrogen [Mass/Vol] 7 mg/dL Normal 5-23 [facility] Comment on above: Performed By: #### Haether CHAN, ####[facility] ([id number])[address] [address] [place] [address] DIGOXINon 06-19-2024 Digoxin [Mass/Vol] 1.6 ng/mL Normal 0.8-2.0 [facility] Comment on above: Performed By: #### 1 0535-3 ####[facility] ([id number])[address], [place] [address] Glucose Glucometer (BldC) [M ass/Vol]on 06-19-2024 Glucose [Mass/Vol] 117 mg/dL High 65-99 [facility] Glucose [Mass/Vol] 108 mg/dL High 65-99 [facility] Glucose [Mass/Vol] 91 mg/dL Normal 65-99 [facility] Glucose [Mass/Vol] 86 mg/dL Normal 65-99 [facility] MAGNESIUMon 06-19-2024 Magnesium [Mass/Vol] 1.7 mg/dL Low 1.8-2.6 [facility] Comment on above: Performed By: #### 1 558-6 #### [facility] ([id number]) [address] [place] [address] Magnesium [Mass/Vol] 1.9 mg/dL Normal 1.8-2.6 [facility] Comment on above: Performed By: #### 1 9123-9 ####[facility] ([id number])[address] [address] Magnesium [Mass/Vol] 1.8 mg/dL Normal 1.8-2.6 [facility] Comment on above: Performed By: #### [place], 15113-3 ####[facility] ([id number])[address] [address] POTASSIUMon 06-19-2024 Potassium [Moles/Vol] 3.5 mmol/L Normal 3.5-5.0 [facility] Comment on above: Performed By: #### 1 558-6 #### [facility] ([id number]) [address], [address] [place] [address] Potassium [Moles/Vol] 3.7 mmol/L Normal 3.5-5.0 [facility] Comment on above: Performed By: #### 2 823-3 ####[facility] ([id number])[address], [place] [address] COMPREHENSIVE METABOLIC PANE Ab 06-18-2024 Albumin [Mass/Vol] 3.6 g/dL Normal 3.2-5.3 [facility] Comment on above: Performed By: #### D GODOY #### [facility] ([id number]) [address] [place] [address] ALP [Catalytic activity/Vol] 63 U/L Normal 39-130 [facility] Comment on above: Performed By: #### D GODOY #### [facility] ([id number]) [address] [place] [address] ALT [Catalytic activity/Vol] 10 U/L Normal 0-31 [facility] Comment on above: Performed By: #### D GODOY #### [facility] ([id number]) [address] [place] [address] Anion gap [Moles/Vol] 11 mmol/L Normal 5-15 [facility] Comment on above: Performed By: #### D GODOY #### [facility] ([id number]) [address] [place] [address] AST [Catalytic activity/Vol] 12 U/L Normal 0-41 [facility] Comment on above: Performed By: #### D GODOY #### [facility] ([id number]) [address], [address] [place] [address] Bilirubin [Mass/Vol] 0.3 mg/dL Normal 0.3-1.2 [facility] Comment on above: Performed By: #### D GODOY #### [facility] ([id number]) [address], [address] [place] [address] Calcium [Mass/Vol] 8.8 mg/dL Normal 8.5-10.5 [facility] Comment on above: Performed By: #### D GODOY #### [facility] ([id number]) [address], [address] [place] [address] Chloride [Moles/Vol] 104 mmol/L Normal 98-109 [facility] Comment on above: Performed By: #### D GODOY #### [facility] ([id number]) [address], [address] [place] [address] CO2 [Moles/Vol] 22 mmol/L Normal 22-32 [facility] Comment on above: Performed By: #### D GODOY #### [facility] ([id number]) [address], [address] [place] [address] Creatinine [Mass/Vol] 0.34 mg/dL Low 0.40-1.00 [facility] Comment on above: Result Comment: METH OD TRACEABLE TO IDMS STANDARD Performed By: #### D GODOY #### [facility] ([id number]) [address], [address] [place] [address] eGFR (CKD-EPI) NON-RACE DEPENDENT >90 Normal >59 [facility] Comment on above: Result Comment: Reported eGFR is based on the CKD-EPI 2020 equation that does not use a race coefficient. Performed By: #### D GODOY #### [facility] ([id number]) [address], [address] [place] [address] Glucose [Mass/Vol] 105 mg/dL High 65-99 [facility] Comment on above: Performed By: #### D GODOY #### [facility] ([id number]) [address], [address] [place] [address] Potassium [Moles/Vol] 3.6 mmol/L Normal 3.5-5.0 [facility] Comment on above: Performed By: #### D GODOY #### [facility] ([id number]) [address], [address] [place] [address] Protein [Mass/Vol] 5.9 g/dL Low 6.0-8.0 [facility] Comment on above: Performed By: #### D GODOY #### [facility] [facility] ([id number]) [address] [place] [address] Sodium [Moles/Vol] 137 mmol/L Normal 134-146 [facility] Comment on above: Performed By: #### D GODOY #### [facility] ([id number]) [address], [address] [place] [address] Urea nitrogen [Mass/Vol] 7 mg/dL Normal 5-23 [facility] Comment on above: Performed By: #### D GODOY #### [facility] ([id number]) [address], [address] [place] [address] DIGOXINon 06-18-2024 Digoxin [Mass/Vol] 1.2 ng/mL Normal 0.8-2.0 [facility] Comment on above: Performed By: #### D GODOY #### [facility] ([id number]) [address], [address] [place] [address] Glucose Glucometer (BldC) [M ass/Vol]on 06-18-2024 Glucose [Mass/Vol] 121 mg/dL High 65-99 [facility] Glucose [Mass/Vol] 141 mg/dL High 65-99 [facility] Glucose [Mass/Vol] 126 mg/dL High 65-99 [facility] Glucose [Mass/Vol] 112 mg/dL High 65-99 [facility] comment Víctor (Repo rt)on 06-18-2024 UNLISTED LAB TEST Sent to reference lab Normal [facility] MAGNESIUMon 06-18-2024 Magnesium [Mass/Vol] 1.9 mg/dL Normal 1.8-2.6 [facility] Comment on above: Performed By: #### 1 0535-3, 2823-3, 35216-7 ####[facility] ([id number])[address], [place] [address] Magnesium [Mass/Vol] 1.8 mg/dL Normal 1.8-2.6 [facility] Comment on above: Performed By: #### D GODOY #### [facility] ([id number]) [address] [place] [address] BROWNS GENERIC ORDERon 025 TEST NAME ALBERTO FLECAINIDE RED SERUM Normal [facility] TEST RESULT SEE COMMENTS 06/22/2024 06:36 PM Normal [facility] Comment on above: Result Comment: NOTE Test Result Flag Unit RefValue -- Flecainide, S 0.6 mcg/mL REFERENCE VALUE 0.2 - 1.0 (Therapeutic concentration, trough value), >1.0 (Toxic concentration, trough value) ADDITIONAL INFORMATION This test was developed and its performance characteristics determined by [facility] in a manner consistent with CLIA requirements. This test has not been cleared or approved by the U.S. Food and Drug Administration. Test Performed by: [facility] [place] [address] Statistician Applied: Mino Cain Ph.D.; CLIA# [id number] POTASSIUMon 06-18-2024 Potassium [Moles/Vol] 3.6 mmol/L Normal 3.5-5.0 [facility] Comment on above: Performed By: #### D GODOY #### [facility] ([id number]) [address] [place] [address] COMPREHENSIVE METABOLIC PANE Ab 06-17-2024 Albumin [Mass/Vol] 3.7 g/dL Normal 3.2-5.3 [facility] Comment on above: Performed By: #### C BCA, CMP, 93557-2, 25137-4, 2777-1, 81442- 5 #### [facility] ([id number]) [address], [address] [place] [address] ALP [Catalytic activity/Vol] 64 U/L Normal 39-130 [facility] Comment on above: Performed By: #### C BCA, CMP, 61530-1, 53359-5, 2777-1, 24719- 5 #### [facility] ([id number]) [address], [address] [place] [address] ALT [Catalytic activity/Vol] 9 U/L Normal 0-31 [facility] Comment on above: Performed By: #### C BCA, CMP, 22608-2, 80191-3, 2777-1, 67144- 5 #### [facility] ([id number]) [address], [address] [place] [address] Anion gap [Moles/Vol] 14 mmol/L Normal 5-15 [facility] Comment on above: Performed By: #### C BCA, CMP, 54451-4, 21380-3, 2777-1, 94430- 5 #### [facility] ([id number]) [address], [address] [place] [address] AST [Catalytic activity/Vol] 11 U/L Normal 0-41 [facility] Comment on above: Performed By: #### C BCA, CMP, 20852-5, 75985-6, 2777-1, 17682- 5 #### [facility] ([id number]) [address], [address] [place] [address] Bilirubin [Mass/Vol] 0.4 mg/dL Normal 0.3-1.2 [facility] Comment on above: Performed By: #### C BCA, CMP, 57891-2, 05856-0, 2777-1, 51551- 5 #### [facility] ([id number]) [address], [address] [place] [address] Calcium [Mass/Vol] 9.2 mg/dL Normal 8.5-10.5 [facility] Comment on above: Performed By: #### C BCA, CMP, 16337-9, 71422-6, 2777-1, 21917- 5 #### [facility] ([id number]) [address], [address] [place] [address] Chloride [Moles/Vol] 103 mmol/L Normal 98-109 [facility] Comment on above: Performed By: #### C BCA, CMP, 54338-3, 71445-5, 2777-1, 81994- 5 #### [facility] ([id number]) [address], [address] [place] [address] CO2 [Moles/Vol] 20 mmol/L Low 22-32 [facility] Comment on above: Performed By: #### C BCA, CMP, 52295-9, 75186-7, 2777-1, 83537- 5 #### [facility] ([id number]) [address], [address] [place] [address] Creatinine [Mass/Vol] 0.34 mg/dL Low 0.40-1.00 [facility] Comment on above: Result Comment: METH OD TRACEABLE TO IDMS STANDARD Performed By: #### C BCA, CMP, 66807-6, 91286-9, 2777-1, 92015-4 #### [facility] ([id number]) [address], [address] [place] [address] eGFR (CKD-EPI) NON-RACE DEPENDENT >90 Normal >59 [facility] Comment on above: Result Comment: Reported eGFR is based on the CKD-EPI 2020 equation that does not use a race coefficient. Performed By: #### C BCA, CMP, 45276-8, 85774-6, 2777-1, 00398-3 #### [facility] ([id number]) [address], [address] [place] [address] Glucose [Mass/Vol] 115 mg/dL High 65-99 [facility] Comment on above: Performed By: #### C BCA, CMP, 75380-3, 97613-4, 2777-1, 29561- 5 #### [facility] ([id number]) [address], [address] [place] [address] Potassium [Moles/Vol] 3.5 mmol/L Normal 3.5-5.0 [facility] Comment on above: Performed By: #### C BCA, CMP, 07479-3, 14715-6, 2777-1, 81448- 5 #### [facility] ([id number]) [address], [address] [place] [address] Protein [Mass/Vol] 6.1 g/dL Normal 6.0-8.0 [facility] Comment on above: Performed By: #### C BCA, CMP, 59932-6, 09119-0, 2777-1, 69687- 5 #### [facility] ([id number]) [address], [address] [place] [address] Sodium [Moles/Vol] 137 mmol/L Normal 134-146 [facility] Comment on above: Performed By: #### C BCA, CMP, 54469-4, 62002-8, 2777-1, 35989- 5 #### [facility] ([id number]) [address], [address] [place] [address] Urea nitrogen [Mass/Vol] 7 mg/dL Normal 5-23 [facility] Comment on above: Performed By: #### C BCA, CMP, 38800-5, 40339-4, 2777-1, 88417- 5 #### [facility] ([id number]) [address], [address] [place] [address] DIGOXINon 06-17-2024 Digoxin [Mass/Vol] 1.1 ng/mL Normal 0.8-2.0 [facility] Comment on above: Performed By: #### C SHERITA, CMP, 18873-1, 63534-9, 2777-1, 01597- 5 #### [facility] ([id number]) [address], [address] [place] [address] Glucose Glucometer (BldC) [M ass/Vol]on 06-17-2024 Glucose [Mass/Vol] 137 mg/dL High 65-99 [facility] Glucose [Mass/Vol] 147 mg/dL High 65-99 [facility] Glucose [Mass/Vol] 125 mg/dL High 65-99 [facility] Glucose [Mass/Vol] 106 mg/dL High 65-99 [facility] MAGNESIUMon 06-17-2024 Magnesium [Mass/Vol] 1.7 mg/dL Low 1.8-2.6 [facility] Comment on above: Performed By: #### D GODOY #### [facility] ([id number]) [address], [address] [place] [address] POTASSIUMon 06-17-2024 Potassium [Moles/Vol] 4.0 mmol/L Normal 3.5-5.0 [facility] Comment on above: Performed By: #### D GODOY #### [facility] ([id number]) [address], [address] [place] [address] Potassium [Moles/Vol] 3.5 mmol/L Normal 3.5-5.0 [facility] Comment on above: Performed By: #### C BCA, CMP, 60917-8, 62891-7, 2777-1, 68257- 5 #### [facility] ([id number]) [address], [address] [place] [address] COMPREHENSIVE METABOLIC PANE Ab 06-16-2024 Albumin [Mass/Vol] 3.6 g/dL Normal 3.2-5.3 [facility] Comment on above: Performed By: #### C BCA, CMP, 79136-2, 85128-5, 2777-1, 73635- 5 #### [facility] ([id number]) [address], [address] [place] [address] ALP [Catalytic activity/Vol] 63 U/L Normal 39-130 [facility] Comment on above: Performed By: #### C BCA, CMP, 12422-0, 84202-8, 2777-1, 93135- 5 #### [facility] ([id number]) [address], [address] [place] [address] ALT [Catalytic activity/Vol] 8 U/L Normal 0-31 [facility] Comment on above: Performed By: #### C BCA, CMP, 11653-5, 01094-3, 2777-1, 62105- 5 #### [facility] ([id number]) [address], [address] [place] [address] Anion gap [Moles/Vol] 11 mmol/L Normal 5-15 [facility] Comment on above: Performed By: #### C BCA, CMP, 98713-0, 09363-5, 2777-1, 46963- 5 #### [facility] ([id number]) [address], [address] [place] [address] AST [Catalytic activity/Vol] 15 U/L Normal 0-41 [facility] Comment on above: Performed By: #### C BCA, CMP, 04146-8, 59406-3, 2777-1, 16697- 5 #### [facility] ([id number]) [address], [address] [place] [address] Bilirubin [Mass/Vol] 0.4 mg/dL Normal 0.3-1.2 [facility] Comment on above: Performed By: #### C BCA, CMP, 05095-2, 79064-7, 2777-1, 78139- 5 #### [facility] ([id number]) [address], [address] [place] [address] Calcium [Mass/Vol] 8.9 mg/dL Normal 8.5-10.5 [facility] Comment on above: Performed By: #### C BCA, CMP, 53988-7, 57889-4, 2777-1, 74222- 5 #### [facility] ([id number]) [address], [address] [place] [address] Chloride [Moles/Vol] 104 mmol/L Normal 98-109 [facility] Comment on above: Performed By: #### C BCA, CMP, 38638-2, 82550-6, 2777-1, 56572- 5 #### [facility] ([id number]) [address], [address] [place] [address] CO2 [Moles/Vol] 22 mmol/L Normal 22-32 [facility] Comment on above: Performed By: #### C BCA, CMP, 77857-2, 03345-4, 2777-1, 45490- 5 #### [facility] ([id number]) [address] [place] [address] Creatinine [Mass/Vol] 0.33 mg/dL Low 0.40-1.00 [facility] Comment on above: Result Comment: METH OD TRACEABLE TO IDMS STANDARD Performed By: #### C BCA, CMP, 55334-9, 21043-6, 2777-1, 33864-1 #### [facility] ([id number]) [address], [address] [place] [address] eGFR (CKD-EPI) NON-RACE DEPENDENT >90 Normal >59 [facility] Comment on above: Result Comment: Reported eGFR is based on the CKD-EPI 2020 equation that does not use a race coefficient. Performed By: #### C BCA, CMP, 78545-3, 93315-2, 2777-1, 83175-7 #### [facility] ([id number]) [address], [address] [place] [address] Glucose [Mass/Vol] 99 mg/dL Normal 65-99 [facility] Comment on above: Performed By: #### C BCA, CMP, 22945-6, 34709-0, 2777-1, 05041- 5 #### [facility] ([id number]) [address], [address] [place] [address] Potassium [Moles/Vol] 3.5 mmol/L Normal 3.5-5.0 [facility] Comment on above: Performed By: #### C BCA, CMP, 02492-2, 88693-5, 2777-1, 97701- 5 #### [facility] ([id number]) [address], [address] [place] [address] Protein [Mass/Vol] 6.0 g/dL Normal 6.0-8.0 [facility] Comment on above: Performed By: #### C BCA, CMP, 37607-5, 99595-8, 2777-1, 46186- 5 #### [facility] ([id number]) [address], [address] [place] [address] Sodium [Moles/Vol] 137 mmol/L Normal 134-146 [facility] Comment on above: Performed By: #### C BCA, CMP, 77443-3, 64180-3, 2777-1, 48300- 5 #### [facility] ([id number]) [address], [address] [place] [address] Urea nitrogen [Mass/Vol] 8 mg/dL Normal 5-23 [facility] Comment on above: Performed By: #### C BCA, CMP, 48444-0, 51028-4, 2777-1, 54806- 5 #### [facility] ([id number]) [address], [address] [place] [address] Glucose Glucometer (BldC) [M ass/Vol]on 06-16-2024 Glucose [Mass/Vol] 141 mg/dL High 65-99 [facility] Glucose [Mass/Vol] 119 mg/dL High 65-99 [facility] Glucose [Mass/Vol] 111 mg/dL High 65-99 [facility] Glucose [Mass/Vol] 108 mg/dL High 65-99 [facility] comment Víctor (Antoni rt)on 06-16-2024 UNLISTED LAB TEST Sent to reference lab [facility] GENERIC ORDERon 025 TEST NAME [facility] Normal [facility] TEST RESULT SEE COMMENTS 06/18/2024 03:43 PM [facility] Comment on above: Result Comment: NOTE Test Result Flag Unit RefValue -- Flecainide, S 0.3 mcg/mL REFERENCE VALUE 0.2 - 1.0 (Therapeutic concentration, trough value), >1.0 (Toxic concentration, trough value) ADDITIONAL INFORMATION This test was developed and its performance characteristics determined by [facility] in a manner consistent with CLIA requirements. This test has not been cleared or approved by the U.S. Food and Drug Administration. Test Performed by: [facility] - [address] [address] Statistician Applied: Mino Cain Ph.D.; CLIA# [id number] DIGOXINon 06-15-2024 Digoxin [Mass/Vol] 0.4 ng/mL Low 0.8-2.0 [facility] Comment on above: Performed By: #### C BCA, CMP, 66818-3, 70876-9, 2777-1, 24754- 5 #### [facility] ([id number]) [address], [address] [place] [address] Glucose Glucometer (BldC) [M ass/Vol]on 06-15-2024 Glucose [Mass/Vol] 111 mg/dL High 65-99 [facility] Glucose [Mass/Vol] 106 mg/dL High 65-99 [facility] Glucose [Mass/Vol] 119 mg/dL High 65-99 [facility] Glucose [Mass/Vol] 91 mg/dL Normal 65-99 [facility] MAGNESIUMon 06-15-2024 Magnesium [Mass/Vol] 1.9 mg/dL Normal 1.8-2.6 [facility] Comment on above: Performed By: #### Heather MAGALLON, CMP, 95716-7, 87598-1, 2777-1, 70976- 5 #### [facility] ([id number]) [address] [place] [address] Magnesium [Mass/Vol] 1.7 mg/dL Low 1.8-2.6 [facility] Comment on above: Performed By: #### C SHERITA, CMP, 18969-2, 42029-9, 2777-1, 22622- 5 #### [facility] ([id number]) [address] [place] [address] Magnesium [Mass/Vol] 1.9 mg/dL Normal 1.8-2.6 [facility] Comment on above: Performed By: #### C BCA, CMP, 80857-0, 87754-8, 2777-1, 29187- 5 #### [facility] ([id number]) [address] [place] [address] [facility] ORDERon 025 TEST NAME [facility] Normal [facility] TEST RESULT SEE COMMENTS 06/16/2024 02:04 PM Normal [facility] Comment on above: Result Comment: NOTE Test Result Flag Unit RefValue -- Flecainide, S 0.4 mcg/mL REFERENCE VALUE 0.2 - 1.0 (Therapeutic concentration, trough value), >1.0 (Toxic concentration, trough value) ADDITIONAL INFORMATION This test was developed and its performance characteristics determined by [facility] in a manner consistent with CLIA requirements. This test has not been cleared or approved by the U.S. Food and Drug Administration. Test Performed by: [facility] [address] [place] [address] Statistician Applied: Mino Cain Ph.D.; CLIA# [id number] POTASSIUMon 06-15-2024 Potassium [Moles/Vol] 3.8 mmol/L Normal 3.5-5.0 [facility] Comment on above: Performed By: #### C SHERITA [facility], 80261-4, 40716-9, 2777-1, 32758- 5 #### [facility] ([id number]) [address] [place] [address] Potassium [Moles/Vol] 3.7 mmol/L Normal 3.5-5.0 [facility] Comment on above: Performed By: #### C ROSA MAGALLON, 89194-1, 69099-1, 2777-1, 02991- 5 #### [facility] ([id number]) [address] [place] [address] BASIC METABOLIC PANLon 06-14 Anion gap [Moles/Vol] 10 mmol/L Normal 5-15 [facility] Comment on above: Performed By: #### C BCA, CMP, 87314-4, 89770-3, 2777-1, 60223- 5 #### [facility] ([id number]) [address] [place] [address] Calcium [Mass/Vol] 9.1 mg/dL Normal 8.5-10.5 [facility] Comment on above: Performed By: #### C BCA, CMP, 11358-8, 60324-9, 2777-1, 10940- 5 #### [facility] ([id number]) [address], [address] [place] [address] Chloride [Moles/Vol] 106 mmol/L Normal 98-109 [facility] Comment on above: Performed By: #### C BCA, CMP, 77773-4, 76227-7, 2777-1, 69085- 5 #### [facility] ([id number]) [address] [place] [address] CO2 [Moles/Vol] 24 mmol/L Normal 22-32 [facility] Comment on above: Performed By: #### C BCA, CMP, 36589-6, 94083-8, 2777-1, 29533- 5 #### [facility] ([id number]) [address] [place] [address] Creatinine [Mass/Vol] 0.41 mg/dL Normal 0.40-1.00 [facility] Comment on above: Result Comment: METH OD TRACEABLE TO IDMS STANDARD Performed By: #### C BCA, CMP, 72984-3, 57763-8, 2777-1, 64428-6 #### [facility] ([id number]) [address] [place] [address] eGFR (CKD-EPI) NON-RACE DEPENDENT >90 Normal >59 [facility] Comment on above: Result Comment: Reported eGFR is based on the CKD-EPI 2020 equation that does not use a race coefficient. Performed By: #### C BCA, CMP, 73154-0, 44310-1, 2777-1, 22524-7 #### [facility] ([id number]) [address] [place] [address] Glucose [Mass/Vol] 97 mg/dL Normal 65-99 [facility] Comment on above: Performed By: #### C BCA, CMP, 29090-4, 02919-9, 2777-1, 31288- 5 #### [facility] ([id number]) [address] [place] [address] Potassium [Moles/Vol] 3.8 mmol/L Normal 3.5-5.0 [facility] Comment on above: Performed By: #### C BCA, CMP, 22469-4, 02906-4, 2777-1, 29796- 5 #### [facility] ([id number]) [address], [address] [place] [address] Sodium [Moles/Vol] 140 mmol/L Normal 134-146 [facility] Comment on above: Performed By: #### C BCA, CMP, 30740-1, 05596-0, 2777-1, 32728- 5 #### [facility] ([id number]) [address] [place] [address] Urea nitrogen [Mass/Vol] 8 mg/dL Normal 5-23 [facility] Comment on above: Performed By: #### C BCA, CMP, 48625-8, 64690-2, 2777-1, 78793- 5 #### [facility] ([id number]) [address] [place] [address] Glucose Glucometer (BldC) [M ass/Vol]on 06-14-2024 Glucose [Mass/Vol] 114 mg/dL High 65-99 [facility] Glucose [Mass/Vol] 102 mg/dL High 65-99 [facility] Glucose [Mass/Vol] 111 mg/dL High 65-99 [facility] Glucose [Mass/Vol] 127 mg/dL High 65-99 [facility] MAGNESIUMon 06-14-2024 Magnesium [Mass/Vol] 1.7 mg/dL Low 1.8-2.6 [facility] Comment on above: Performed By: #### C BCA, CMP, 89693-2, 44637-3, 2777-1, 69334- 5 #### [facility] ([id number]) [address] [place] [address] Magnesium [Mass/Vol] 1.6 mg/dL Low 1.8-2.6 [facility] Comment on above: Performed By: #### C BCA, CMP, 70780-2, 58554-1, 2777-1, 94715- 5 #### [facility] ([id number]) [address] [place] [address] POTASSIUMon 06-14-2024 Potassium [Moles/Vol] 3.5 mmol/L Normal 3.5-5.0 [facility] Comment on above: Performed By: #### C BCA, CMP, 47233-1, 91164-8, 2777-1, 95087- 5 #### [facility] ([id number]) [address] [place] [address] Potassium [Moles/Vol] 3.5 mmol/L Normal 3.5-5.0 [facility] Comment on above: Performed By: #### C BCA, CMP, 31898-2, 22655-6, 2777-1, 68758- 5 #### [facility] ([id number]) [address] [place] [address] BASIC METABOLIC PANLon 06-13 Anion gap [Moles/Vol] 10 mmol/L Normal 5-15 [facility] Comment on above: Performed By: #### C BCA, CMP, 85138-9, 00285-5, 2777-1, 00711- 5 #### [facility] ([id number]) [address] [place] [address] Calcium [Mass/Vol] 8.9 mg/dL Normal 8.5-10.5 [facility] Comment on above: Performed By: #### C BCA, CMP, 84770-5, 19233-5, 2777-1, 77418- 5 #### [facility] ([id number]) [address], [address] [address] Chloride [Moles/Vol] 106 mmol/L Normal 98-109 [facility] Comment on above: Performed By: #### C BCA, CMP, 19501-3, 81140-8, 2777-1, 27544- 5 #### [facility] ([id number]) [address], [address] [place] [address] CO2 [Moles/Vol] 24 mmol/L Normal 22-32 [facility] Comment on above: Performed By: #### C BCA, CMP, 57300-4, 50106-5, 2777-1, 35346- 5 #### [facility] ([id number]) [address], [address] [place] [address] Creatinine [Mass/Vol] 0.42 mg/dL Normal 0.40-1.00 [facility] Comment on above: Result Comment: METH OD TRACEABLE TO IDMS STANDARD Performed By: #### C BCA, CMP, 79862-0, 41382-6, 2777-1, 36589-8 #### [facility] ([id number]) [address], [address] [place] [address] eGFR (CKD-EPI) NON-RACE DEPENDENT >90 Normal >59 [facility] Comment on above: Result Comment: Reported eGFR is based on the CKD-EPI 2020 equation that does not use a race coefficient. Performed By: #### C BCA, CMP, 59376-1, 94427-3, 2777-1, 09458-5 #### [facility] ([id number]) [address], [address] [place] [address] Glucose [Mass/Vol] 95 mg/dL Normal 65-99 [facility] Comment on above: Performed By: #### C BCA, CMP, 61765-0, 31950-6, 2777-1, 88249- 5 #### [facility] ([id number]) [address], [facility] [address] [place] [address] Potassium [Moles/Vol] 3.4 mmol/L Low 3.5-5.0 [facility] Comment on above: Performed By: #### C BCA, CMP, 80062-7, 27204-1, 2777-1, 22431- 5 #### [facility] ([id number]) [address], [address] [place] [address] Sodium [Moles/Vol] 140 mmol/L Normal 134-146 [facility] Comment on above: Performed By: #### C BCA, CMP, 89276-3, 16396-5, 2777-1, 66198- 5 #### [facility] ([id number]) [address], [address] [place] [address] Urea nitrogen [Mass/Vol] 6 mg/dL Normal 5-23 [facility] Comment on above: Performed By: #### C BCA, CMP, 18311-5, 71036-5, 2777-1, 11498- 5 #### [facility] ([id number]) [address], [address] [place] [address] Glucose Glucometer (BldC) [M ass/Vol]on 06-13-2024 Glucose [Mass/Vol] 100 mg/dL High 65-99 [facility] Glucose [Mass/Vol] 126 mg/dL High 65-99 [facility] Glucose [Mass/Vol] 123 mg/dL High 65-99 [facility] Glucose [Mass/Vol] 94 mg/dL Normal 65-99 [facility] MAGNESIUMon 06-13-2024 Magnesium [Mass/Vol] 2.1 mg/dL Normal 1.8-2.6 [facility] Comment on above: Performed By: #### C BCA, CMP, , 42037-2, 2777-1, 11854- 5 #### [facility] ([id number]) [address], [address] [place] [address] Magnesium [Mass/Vol] 1.5 mg/dL Low 1.8-2.6 [facility] Comment on above: Performed By: #### C BCA, CMP, , 61195-5, 2777-1, 58245- 5 #### [facility] ([id number]) [address] [place] [address] POTASSIUMon 06-13-2024 Potassium [Moles/Vol] 3.5 mmol/L Normal 3.5-5.0 [facility] Comment on above: Performed By: #### C BCA, CMP, , 01386-9, 2777-1, 69439- 5 #### [facility] ([id number]) [address] [place] [address] BASIC METABOLIC PANLon 06-12 Anion gap [Moles/Vol] 10 mmol/L Normal 5-15 [facility] Comment on above: Performed By: #### B MP, #### [facility] ([id number]) [address], [address] [place] [address] Calcium [Mass/Vol] 9.1 mg/dL Normal 8.5-10.5 [facility] Comment on above: Performed By: #### Jahaira MP, #### [facility] ([id number]) [address], [address] [place] [address] Chloride [Moles/Vol] 107 mmol/L Normal 98-109 [facility] Comment on above: Performed By: #### Jahaira CHAN, #### [facility] ([id number]) [address], [address] [place] [address] CO2 [Moles/Vol] 24 mmol/L Normal 22-32 [facility] Comment on above: Performed By: #### Jahaira CHAN, #### [facility] ([id number]) [address], [address] [place] [address] Creatinine [Mass/Vol] 0.42 mg/dL Normal 0.40-1.00 [facility] Comment on above: Result Comment: METH OD TRACEABLE TO IDMS STANDARD Performed By: #### Jahaira CHAN, #### [facility] ([id number]) [address], [address] [place] [address] eGFR (CKD-EPI) NON-RACE DEPENDENT >90 Normal >59 [facility] Comment on above: Result Comment: Reported eGFR is based on the CKD-EPI 2020 equation that does not use a race coefficient. Performed By: #### Jahaira CHAN, #### [facility] ([id number]) [address] [place] [address] Glucose [Mass/Vol] 94 mg/dL Normal 65-99 [facility] Comment on above: Performed By: #### Jahaira CHAN, #### [facility] ([id number]) [address] [place] [address] Potassium [Moles/Vol] 3.3 mmol/L Low 3.5-5.0 [facility] Comment on above: Performed By: #### Jahaira CHAN, #### [facility] ([id number]) [address], [address] [place] [address] Sodium [Moles/Vol] 141 mmol/L Normal 134-146 [facility] Comment on above: Performed By: #### Jahaira , 30745-1 #### [facility] ([id number]) [address], [facility] [address] [place] [address] Urea nitrogen [Mass/Vol] 5 mg/dL Normal 5-23 [facility] Comment on above: Performed By: #### Jahaira , #### [facility] ([id number]) [address], [facility] [address] [place] [address] DIGOXINon 06-12-2024 Digoxin [Mass/Vol] 0.4 ng/mL Low 0.8-2.0 [facility] Comment on above: Performed By: #### C SHERITA, [facility], , 42778-5, 2777-1, 45241- 5 #### [facility] ([id number]) [address], [facility] [address] [place] [address] Glucose 1 Hr post dose gluco se [Mass/Vol]on 06-12-2024 1ST HR GTT 187 mg/dL High 120-170 [facility] Comment on above: Performed By: #### C BCA, [facility], , 35795-4, 2777-1, 89665- 5 #### [facility] ([id number]) [address] [facility] [place] [address] Glucose 2 Hr post 100 g gluc ose PO [Mass/Vol]on 06-12-2024 2ND HR GTT 100GM LOAD 175 mg/dL High 70-139 [facility] Comment on above: Result Comment: Fourth International Workshop Conference: Recommendations and Rationale for Screening and Diagnosis of Gestational Diabetes Mellitus 2 or more of the following must be met or exceeded for a positive diagnosis. FASTING >=95mg/dL 1hr post 100g load >=180mg/dL 2hr post 100g load >=155mg/dL 3hr post 100g load >=140mg/dL Performed By: #### C SHERITA, CMP, 77430-3, 12483-3, 2777-1, 40649-2 #### [facility] ([id number]) [address], [address] [place] [address] Glucose 3 Hr post dose gluco se [Mass/Vol]on 06-12-2024 3RD HR GTT 123 mg/dL High 65-99 [facility] Comment on above: Performed By: #### C SHERITA, CMP, 71033-2, 28253-1, 2777-1, 44045- 5 #### [facility] ([id number]) [address], [address] [place] [address] Glucose Glucometer (BldC) [M ass/Vol]on 06-12-2024 Glucose [Mass/Vol] 118 mg/dL High 65-99 [facility] Glucose [Mass/Vol] 114 mg/dL High 65-99 [facility] Glucose [Mass/Vol] 102 mg/dL High 65-99 [facility] Glucose post fast [Mass/Vol] on 06-12-2024 FASTING GTT 95 mg/dL Normal 65-99 [facility] Comment on above: Performed By: #### 1 558-6 #### [facility] ([id number]) [address], [address] [place] [address] MAGNESIUMon 06-12-2024 Magnesium [Mass/Vol] 1.9 mg/dL Normal 1.8-2.6 [facility] Comment on above: Performed By: #### C SHERITA, CMP, 50622-5, 28088-9, 2777-1, 64025- 5 #### [facility] ([id number]) [address], [address] [place] [address] Magnesium [Mass/Vol] 1.4 mg/dL Low 1.8-2.6 [facility] Comment on above: Performed By: #### C BCA, CMP, 31508-7, 54438-2, 2777-1, 04179- 5 #### [facility] ([id number]) [address], [address] [place] [address] POTASSIUMon 06-12-2024 Potassium [Moles/Vol] 3.4 mmol/L Low 3.5-5.0 [facility] Comment on above: Performed By: #### C BCA, CMP, 85703-8, 98856-8, 2777-1, 55259- 5 #### [facility] ([id number]) [address], [address] [place] [address] CBC AND AUTO DIFFon 06-12-19 25 ABSOLUTE BASOPHIL 0.0 X10E9/L Normal 0.0-0.2 [facility] Comment on above: Performed By: #### C BCA, CMP, 71252-4, 73561-9, 2777-1, 78074- 5 #### [facility] ([id number]) [address], [address] [place] [address] ABSOLUTE NEUTROPHIL 6.7 X10E9/L High 1.5-6.6 [facility] Comment on above: Performed By: #### C BCA, CMP, 84135-5, 65596-1, 2777-1, 65292- 5 #### [facility] ([id number]) [address], [address] [place] [address] Basophils/100 WBC (Bld) 0.4 % Normal [facility] Comment on above: Performed By: #### C BCA, CMP, 11562-1, 67057-2, 2777-1, 45377- 5 #### [facility] ([id number]) [address], [address] [place] [address] Eosinophils (Bld) [#/Vol] 0.0 10*3/uL Normal 0.0-0.4 [facility] Comment on above: Performed By: #### C BCA, CMP, 19000-2, 56773-9, 2777-1, 03905- 5 #### [facility] ([id number]) [address], [facility] [address] [place] [address] Eosinophils/100 WBC (Bld) 0.4 % Normal [facility] Comment on above: Performed By: #### C BCA, CMP, 26563-8, 10799-1, 2777-1, 68869- 5 #### [facility] ([id number]) [address] [place] [address] Erythrocyte distribution width (RBC) [Ratio] 13.8 % Normal 11.5-15.0 [facility] Comment on above: Performed By: #### C BCA, CMP, 43372-2, 42473-1, 2777-1, 20774- 5 #### [facility] ([id number]) [address], [facility] [address] [place] [address] Hematocrit (Bld) [Volume fraction] 36.3 % Normal 35-47 [facility] Comment on above: Performed By: #### C BCA, CMP, 02776-0, 67646-9, 2777-1, 25443- 5 #### [facility] ([id number]) [address] [place] [address] Hemoglobin (Bld) [Mass/Vol] 12.3 g/dL Normal 11.7-15.5 [facility] Comment on above: Performed By: #### C BCA, CMP, 60243-1, 17884-7, 2777-1, 18829- 5 #### [facility] ([id number]) [address] [address] Lymphocytes (Bld) [#/Vol] 1.6 10*3/uL Normal 1.0-3.5 [facility] Comment on above: Performed By: #### C BCA, CMP, 28396-7, 97028-5, 7-1, 63396- 5 #### [facility] ([id number]) [address], [address] [place] [address] Lymphocytes/100 WBC (Bld) 18.3 % Normal [facility] Comment on above: Performed By: #### C BCA, CMP, 09128-5, 22174-3, 2777-1, 87601- 5 #### [facility] ([id number]) [address], [address] [place] [address] MCH (RBC) [Entitic mass] 28.6 pg Normal 27-34 [facility] Comment on above: Performed By: #### C BCA, CMP, 70097-1, 93251-3, 7-1, 87128- 5 #### [facility] ([id number]) [address], [address] [place] [address] MCHC (RBC) [Mass/Vol] 33.8 g/dL Normal 32-36 [facility] Comment on above: Performed By: #### C BCA, CMP, 85555-3, 40728-2, 7-, 13202- 5 #### [facility] ([id number]) [address], [address] [address] MCV (RBC) [Entitic vol] 85 fL Normal 80-100 [facility] Comment on above: Performed By: #### C BCA, CMP, 19222-9, 39562-3, 2777-1, 59676- 5 #### [facility] ([id number]) [address] [address] [place] [address] Monocytes (Bld) [#/Vol] 0.5 10*3/uL Normal 0-0.9 [facility] Comment on above: Performed By: #### C BCA, CMP, 58756-0, 26536-6, 2777-1, 79061- 5 #### [facility] ([id number]) [address], [address] [place] [address] Monocytes/100 WBC (Bld) 5.7 % Normal [facility] Comment on above: Performed By: #### C BCA, CMP, 36845-1, 42043-2, 2777-1, 70782- 5 #### [facility] ([id number]) [address], [address] [place] [address] Neutrophils/100 WBC (Bld) 75.2 % Normal [facility] Comment on above: Performed By: #### C BCA, CMP, 20689-5, 38280-2, 2777-1, 84781- 5 #### [facility] ([id number]) [address], [address] [place] [address] Platelet mean volume (Bld) [Entitic vol] 7.1 fL Normal 7-12 [facility] Comment on above: Performed By: #### C BCA, CMP, 44897-6, 36516-0, 2777-1, 19479- 5 #### [facility] ([id number]) [address], [address] [place] [address] Platelets (Bld) [#/Vol] 231 10*3/uL Normal 150-450 [facility] Comment on above: Performed By: #### C BCA, CMP, 98035-7, 04762-7, 2777-1, 80798- 5 #### [facility] ([id number]) [address], [address] [place] [address] RBC COUNT 4.30 X10E12/L Normal 3.80-5.20 [facility] Comment on above: Performed By: #### C BCA, CMP, 27208-9, 90781-3, 2777-1, 39377- 5 #### [facility] ([id number]) [address], [address] [place] [address] WBC (Bld) [#/Vol] 8.9 10*3/uL Normal 4.0-11.0 [facility] Comment on above: Performed By: #### C BCA, CMP, 98315-8, 38638-2, 2777-1, 49540- 5 #### [facility] ([id number]) [address], [address] [place] [address] COMPREHENSIVE METABOLIC PANE Ab 06-11-2024 Albumin [Mass/Vol] 3.6 g/dL Normal 3.2-5.3 [facility] Comment on above: Performed By: #### C BCA, CMP, 51498-5, 79066-5, 2777-1, 91347- 5 #### [facility] ([id number]) [address], [address] [place] [address] ALP [Catalytic activity/Vol] 64 U/L Normal 39-130 [facility] Comment on above: Performed By: #### C BCA, CMP, 03763-4, 65085-2, 2777-1, 86094- 5 #### [facility] ([id number]) [address], [address] [place] [address] ALT [Catalytic activity/Vol] 10 U/L Normal 0-31 [facility] Comment on above: Performed By: #### C BCA, CMP, 52348-9, 88412-4, 2777-1, 08987- 5 #### [facility] ([id number]) [address], [address] [place] [address] Anion gap [Moles/Vol] 12 mmol/L Normal 5-15 [facility] Comment on above: Performed By: #### C BCA, CMP, 85199-1, 44367-6, 2777-1, 33248- 5 #### [facility] ([id number]) [address], [address] [place] [address] AST [Catalytic activity/Vol] 18 U/L Normal 0-41 [facility] Comment on above: Performed By: #### C BCA, CMP, 93154-1, 13688-1, 2777-1, 59141- 5 #### [facility] ([id number]) [address], [address] [place] [address] Bilirubin [Mass/Vol] 0.2 mg/dL Low 0.3-1.2 [facility] Comment on above: Performed By: #### C BCA, CMP, 09749-3, 88854-2, 2777-1, 77434- 5 #### [facility] ([id number]) [address], [address] [place] [address] Calcium [Mass/Vol] 8.8 mg/dL Normal 8.5-10.5 [facility] Comment on above: Performed By: #### C BCA, CMP, 45168-6, 32483-5, 2777-1, 96839- 5 #### [facility] ([id number]) [address], [address] [place] [address] Chloride [Moles/Vol] 109 mmol/L Normal 98-109 [facility] Comment on above: Performed By: #### C BCA, CMP, 74505-9, 46341-9, 2777-1, 18621- 5 #### [facility] ([id number]) [address], [address] [place] [address] CO2 [Moles/Vol] 20 mmol/L Low 22-32 [facility] Comment on above: Performed By: #### C BCA, CMP, 48951-8, 42360-8, 2777-1, 36770- 5 #### [facility] ([id number]) [address], [address] [place] [address] Creatinine [Mass/Vol] 0.44 mg/dL Normal 0.40-1.00 [facility] Comment on above: Result Comment: METH OD TRACEABLE TO IDMS STANDARD Performed By: #### C BCA, CMP, 05093-2, 83665-0, 2777-1, 15933-0 #### [facility] ([id number]) [address], [address] [place] [address] eGFR (CKD-EPI) NON-RACE DEPENDENT >90 Normal >59 [facility] Comment on above: Result Comment: Reported eGFR is based on the CKD-EPI 2020 equation that does not use a race coefficient. Performed By: #### C BCA, CMP, 67957-2, 18023-1, 2777-1, 79469-8 #### [facility] ([id number]) [address], [address] [place] [address] Glucose [Mass/Vol] 79 mg/dL Normal 65-99 [facility] Comment on above: Performed By: #### C BCA, CMP, 39391-6, 66678-4, 277-1, 02911- 5 #### [facility] ([id number]) [address], [address] [place] [address] Potassium [Moles/Vol] 3.4 mmol/L Low 3.5-5.0 [facility] Comment on above: Performed By: #### C BCA, CMP, 85800-8, 08043-4, 2777-1, 64056- 5 #### [facility] ([id number]) [address], [address] [place] [address] Protein [Mass/Vol] 6.2 g/dL Normal 6.0-8.0 [facility] Comment on above: Performed By: #### C BCA, CMP, 85765-4, 85404-9, 2777-1, 42071- 5 #### [facility] ([id number]) [address] [facility] [place] [address] Sodium [Moles/Vol] 141 mmol/L Normal 134-146 [facility] Comment on above: Performed By: #### C BCA, CMP, 03762-5, 65337-9, 2777-1, 16542- 5 #### [facility] ([id number]) [address], [address] [place] [address] Urea nitrogen [Mass/Vol] 5 mg/dL Normal 5-23 [facility] Comment on above: Performed By: #### C BCA, CMP, 19117-1, 86223-8, 2777-1, 19089- 5 #### [facility] ([id number]) [address] [place] [address] DRUG SCREEN, URINEon 025 AMPHETAMINE/METHAMP Negative Normal NEG [facility] Comment on above: Result Comment: AMPH /METH screening cut off = 1000 ng/mL Performed By: #### D GODOY #### [facility] ([id number]) [address], [address] [place] [address] BARBITURATES Negative Normal NEG [facility] Comment on above: Result Comment: Jacqueline iturates screening cut off value = 200 ng/mL Performed By: #### D GODOY #### [facility] ([id number]) [address], [address] [place] [address] BENZODIAZEPINES Negative Normal NEG [facility] Comment on above: Result Comment: Jayjay odiazepines screening cut off value = 200 ng/mL Performed By: #### D GODOY #### [facility] ([id number]) [address], [address] [place] [address] CANNABINOIDS Negative Normal NEG [facility] Comment on above: Result Comment: Brandon abinoids/THC screening cut off value = 50 ng/mL Performed By: #### D GODOY #### [facility] ([id number]) [address], [address] [place] [address] COCAINE METABOLITE Negative Normal NEG [facility] Comment on above: Result Comment: Coca ine screening cut off value = 300 ng/mL Performed By: #### D GODOY #### [facility] ([id number]) [address], [address] [place] [address] ECSTASY Negative Normal NEG [facility] Comment on above: Result Comment: Ecst asy screening cut off value = 500 ng/mL This report is intended for use in clinical monitoring or management of patients. Performed By: #### D GODOY #### [facility] ([id number]) [address] [place] [address] METHADONE Negative Normal NEG [facility] Comment on above: Result Comment: Meth adone screening cut off value = 300 ng/mL. Performed By: #### D GODOY #### [facility] ([id number]) [address] [place] [address] OPIATES Negative Normal NEG [facility] Comment on above: Result Comment: Opia beni screening cut off value = 300 ng/mL NOTE: This test is used for the detection of codeine, hydrocodone (>1000 ng/mL), morphine and hydromorphone (>900 ng/mL) in urine. Performed By: #### D GODOY #### [facility] ([id number]) [address] [place] [address] OXYCODONE Negative Normal NEG [facility] Comment on above: Result Comment: Oxyc odone screening cut off value = 300 ng/mL NOTE: This test is used for the detection of oxycodone and oxymorphone in urine. Performed By: #### D GODOY #### [facility] ([id number]) [address] [place] [address] PHENCYCLIDINE Negative Normal NEG [facility] Comment on above: Result Comment: Phen cyclidine screening cut off value = 25 ng/mL Performed By: #### D GODOY #### [facility] ([id number]) [address] [place] [address] MAGNESIUMon 06-11-2024 Magnesium [Mass/Vol] 1.7 mg/dL Low 1.8-2.6 [facility] Comment on above: Performed By: #### C BCA, CMP, 67434-2, 35914-3, 2777-1, 55646- 5 #### [facility] ([id number]) [address] [place] [address] PHOSPHORUSon 06-11-2024 Phosphate [Mass/Vol] 4.0 mg/dL Normal 2.4-4.9 [facility] Comment on above: Performed By: #### C BCA, CMP, 15568-1, 98302-7, 2777-1, 93381- 5 #### [facility] ([id number]) [address] [place] [address] T. pallidum IgG+IgM IA Ql (S )on 06-11-2024 Syphilis Total <0.2 Normal 0.0-0.8 [facility] Comment on above: Result Comment: NON REACTIVE No serologic evidence of infection to Treponema pallidum (syphilis). Repeat testing may be considered in patients with suspected acute or primary syphilis in 2 to 4 weeks. Performed By: #### C BCA, CMP, 26259-1, 45467-9, 2777-1, 18704-2 #### [facility] ([id number]) [address] [place] [address] Ultrasound - OfficeOrdered B y: Ravinder Burnett on 06-11-2024 Radiology Study observation (narrative) [facility] Ultrasound - Officeon 2024 Radiology Study observation (narrative) [facility] Vitamin D+Metabolites [Mass/ Vol]on 06-11-2024 VITAMIN D 25 HYD TOT 23.3 ng/mL Low 30-100 [facility] Comment on above: Result Comment: Vitamin D status 25 [place] Vitamin D Deficiency <20 ng/mL Insufficiency 20-29 ng/mL Sufficiency 30-100 ng/mL Toxicity >100 ng/mL NOTE: A pediatric reference range has not been established by the assistant program manager of this kit. The [place] [employer] recommends a Vitamin D level of = or >20ng/mL in infants and children. Performed By: #### C SHERITA, [facility], 14370-5, 36304-5, 2777-1, 18739-5 #### [facility] ([id number]) [address], [address] [place] [address] ALL CBC WITH AUTO DIFFon BASOPHILS ABSOLUTE AUTO 0 [facility] Basophils/100 WBC (Bld) 0.2 % 0.2 - 2.0 % [facility] Eosinophils/100 WBC (Bld) 0.6 % Low 0.9 - 7.0 % [facility] Erythrocyte distribution width (RBC) [Ratio] 13.6 % 11.0 - 15.0 % [facility] Hematocrit (Bld) [Volume fraction] 36.1 % 36.0 - 48.0 % [facility] Hemoglobin (Bld) [Mass/Vol] 12.2 g/dL 12.0 - 16.0 g/dL [facility] IMMATURE GRANULOCYTES ABS AUTO 0.06 High [facility] Immature granulocytes/100 WBC (Bld) 0.7 % High 0.0 - 0.5 % [facility] Interpretation and review of laboratory results Abnormal [facility] LYMPHOCYTES ABSOLUTE AUTO 1.7 [facility] Lymphocytes/100 WBC (Bld) 19.5 % Low 20.5 - 60.0 % [facility] MCH (RBC) [Entitic mass] 29.1 pg 26.7 - 34.0 pg [facility] MCHC (RBC) [Mass/Vol] 33.8 g/dL 29.9 - 35.2 g/dL [facility] MCV (RBC) [Entitic vol] 86.2 fL 81.0 - 99.0 fL [facility] MONOCYTES ABSOLUTE AUTO 0.6 [facility] Monocytes/100 WBC (Bld) 6.4 % 1.7 - 12.0 % [facility] NEUTROPHILS ABSOLUTE AUTO 6.5 [facility] Neutrophils/100 WBC (Bld) 72.6 % 43.0 - 75.0 % [facility] Platelet mean volume (Bld) [Entitic vol] 9 fL Low 9.5 - 13.5 [facility]L [facility].1 [facility] PLT 257 [facility] RBC 4.19 Low [facility] WBC 8.9 [facility] No Panel Informationon 06-10 [facility] TSHon 06-10-2024 Thyroid Stimulating (3Rd Generation) Hormone/ Tsh 1.48 [facility] Urinalysis macro (dipstick) panel (U)on 06-10-2024 Bilirubin, UA Negative Negative - 4(70) +++ mg/dL [facility] Blood, UA Negative Negative - 50 Jordan/mcL [facility] Clarity, UA Clear [facility] re Color, UA Yellow [facility] Glucose, UA Negative Negative - 1999(110) ++++ mg/dL [facility] Interpretation and review of laboratory results Normal [facility] Ketones, UA Negative Negative - 160(16) ++++ mg/dL [facility] Leukocytes, UA Negative Negative - 500+++ Leanne/mcL [facility] Nitrite, UA Negative Negative - Positive [facility] pH, UA 7 5 - [address] [facility] Protein, UA Negative Negative - 1999(20) ++++ mg/dL [facility] Spec Grav, UA 1.015 1 - 1.03 [facility] Urobilinogen, UA 0.2 0.2 - 12 mg/dL [facility] Ultrasound - Officeon 2024 [facility] US OB 14+ WEEKS ANATOMY SCAN on [...] II, MD, PHD at 13-May-2024 08:36:44 AM [facility] Normal Not Available Comment on above: [...] Comment on above: Fiona White , Ph.D., [facility] Director References: Available Upon Request. Multiples Of Median Cutoffs For AFP Elevations Ramírez 2.5 Black 2.8 IDD 2.0 Twins 4.5 Abbreviation Definitions IDD - Insulin Dep Diabetes OSBR - Open Spina Bifida Risk For further inquiries contact [employer] at [phone]. This test was developed and its performance characteristics determined by [facility]. It has not been cleared or approved by the Food and Drug Administration. Performed at: TG - [facility] [address] [place], [place] [id number] Statistician Applied: Darlene Snyder [facility], Phone: [phone] GEST. AGE ON COLLECTION DATE 22.4 . weeks [facility] GESTAT. AGE BASED ON Ultrasound . [facility] Comment on above: 19.7 on 04/15/2024 Recalculations are not recommended when gestational dating by LMP and ultrasound are within 10 days. INSULIN DEP DIABETES No . [facility] INTERPRETATION Comment . [facility] Comment on above: Interpretation: Scre en Negative [...] Customer Services to discuss available options. The [employer] recommends amniocentesis be offered to women age 35 and older. [age] [facility] MULTIPLE GESTATION No . [facility] [place] [address] [place] [id number] . [facility] . [facility] T[employer] Media e RESULTS Report . [facility] [employer] TEST RESULTS: Negative . [facility] WEIGHT [address] [facility] [employer] e N N ULTRASOUND [id number] [phone] 19 N 1 195 N N N N N White/ CLINISYNC [facility] [employer] e IGP,APTIMA HPV,AGE GDLNon AGE GDLN ACOG TESTING Note . [facility] Comment on above: TESTS RESULT FLAG UN ITS REF RANGE LAB Clinician Provided Cytology Information Source.............Cervix No. of containers..01 ThinPrep Vial Age Algo ACOG Beni... 21-01 04 FLAG LEGEND: L-Low Normal,H-High Normal,LL-Alert Low,HH-Alert High <-Panic Low,>-Panic High,A-Abnormal,AA-Critical Abnormal Performed at: 01 =[facility] [address] [place] [address] Ania Barnes MD, IGP, RFX APTIMA HPV ASCU Note . [facility] Comment on above: TESTS RESULT FLAG UN ITS REF RANGE LAB DIAGNOSIS: 02 NEGATIVE FOR INTRAEPITHELIAL LESION OR MALIGNANCY. Specimen adequacy: 02 Satisfactory for evaluation. No endocervical component is identified. Performed by: Sue Butler, Journeyman Operator Assistant ([facility]) . 02 Note: Note 02 The [...] <-Panic Low,>-Panic High,A-Abnormal,AA-Critical Abnormal Performed at: [address] [address] Ania Barnes MD, Performed at: =[facility] [id number] Statistician Applied: Ania Barnes MD, Phone: [phone] Performed at: [address] [id number] Statistician Applied: Ania Barnes MD, Phone: [phone] SPATULA-ALONE CERVIX [facility] RECURRENT VAGINITIS (HTRX)on 04-17-2024 ATOPOBIUM VAGINAE 0 [facility] ATOPOBIUM VAGINAE Not detected [facility] BVAB 2,3 (BACTERIAL VAGINOSIS ASSOCIATED BACTERIA 2, 3); MOBILUNCUS SPP 0 [facility] Healthcare BVAB 2,3 (BACTERIAL VAGINOSIS ASSOCIATED BACTERIA 2, 3); MOBILUNCUS SPP Not detected [facility] GIL ALBICANS, PARAPSILOSIS, TROPICALIS 0 [facility] GIL ALBICANS, PARAPSILOSIS, TROPICALIS Not detected [facility] GIL GLABRATA 0 [facility] GIL GLABRATA Not detected [facility] GIL KRUSEI 0 [facility] GIL KRUSEI Not detected [facility] [...] UA Negative Negative - 4(70) +++ mg/dL [facility] Blood, UA Negative Negative - 50 Jordan/mcL [facility] Clarity, UA Clear [facility] re Color, UA Yellow [facility] Glucose, UA Negative Negative - 1999(110) ++++ mg/dL [facility] Interpretation and review of laboratory results Normal [facility] Ketones, UA Negative Negative - 160(16) ++++ mg/dL [facility] Leukocytes, UA Negative Negative - 500+++ Leanne/mcL [facility] Nitrite, UA Negative Negative - Positive [facility] pH, UA 6.5 5 - 9 [facility] Protein, UA Negative Negative - 1999(20) ++++ mg/dL [facility] Spec Grav, UA 1.02 1 - 1.03 [facility] Urobilinogen, UA 1.0 0.2 - 12 mg/dL [facility] ALL CBC WITH AUTO DIFFon BASOPHILS ABSOLUTE AUTO 0.1 [facility] Basophils/100 WBC (Bld) 0.5 % 0.2 - 2.0 % [facility] Eosinophils/100 WBC (Bld) 0.4 % Low 0.9 - 7.0 % [facility] Erythrocyte distribution width (RBC) [Ratio] 12.4 % 11.0 - 15.0 % [facility] Hematocrit (Bld) [Volume fraction] 39.8 % 36.0 - 48.0 % [facility] Hemoglobin (Bld) [Mass/Vol] 13.5 g/dL 12.0 - 16.0 g/dL [facility] IMMATURE GRANULOCYTES ABS AUTO 0.03 [facility] Immature granulocytes/100 WBC (Bld) 0.3 % 0.0 - 0.5 % [facility] Interpretation and review of laboratory results Abnormal [facility] LYMPHOCYTES ABSOLUTE AUTO 1.8 [facility] Lymphocytes/100 WBC (Bld) 16.2 % Low 20.5 - 60.0 % [facility] MCH (RBC) [Entitic mass] 28.8 pg 26.7 - 34.0 pg [facility] MCHC (RBC) [Mass/Vol] 33.9 g/dL 29.9 - 35.2 g/dL [facility] Healthcare MCV (RBC) [Entitic vol] 85 fL 81.0 - 99.0 fL [facility] MONOCYTES ABSOLUTE AUTO 0.4 [facility] Monocytes/100 WBC (Bld) 3.8 % 1.7 - 12.0 % [facility] NEUTROPHILS ABSOLUTE AUTO 8.8 High [facility] Neutrophils/100 WBC (Bld) 78.8 % High 43.0 - 75.0 % [facility] Platelet mean volume (Bld) [Entitic vol] 9 fL Low 9.5 - 13.5 fL [facility] are TBH EO # 0 [facility] TB PLT 351 [facility] TB RBC 4.68 [facility] WBC 11.2 High [facility] Drug Screen, Urineon 024 Amphetamine/Methamphe tamine Negative [facility] Barbiturates Negative [facility] Benzodiazepines Negative [facility] Cocaine Metabolite Negative [facility] Methadone Negative [facility] Opiates Negative [facility] Oxycodone Negative [facility] Phencyclidine Negative [facility] Thc Marijuana, Urine Negative [facility] HIV 1&2 AB/AG Screen (P24 AG )on 02-14-2024 HIV 1&2 AB/AG Non-Reactive [facility] Hemoglobin A1con 02-14-2024 HbA1c (Bld) [Mass fraction] 4.8 % 4.0 - 6.0 % [facility] Hepatitis B surface antigeno n 02-14-2024 Hepatitis B Surface Antigen Negative [facility] No Panel Informationon 02-13 [facility] Rubella IGG immune statuson 02-14-2024 Rubella immune IgG immune [facility] Syphilis Total(Unknown Syphi lis Status)Ordered By: Ravinder Burnett on 02-14-2024 Syphilis Non-Reactive [facility] TB DRUG SCREEN RAPID (URINE )on 02-14-2024 AMPHETAMINE SCREEN URINE Negative NEGATIVE [facility] BARBITURATES SCREEN URINE Negative NEGATIVE [facility] BENZODIAZEPINES SCREEN URINE Negative NEGATIVE [facility] BUPRENORPHINE SCREEN URINE Negative NEGATIVE [facility] Comment on above: DRUG CLASS TEST SYST [...] 300 ng/mL CANNABINOID SCREEN URINE Negative NEGATIVE [facility] COCAINE SCREEN URINE Negative NEGATIVE [facility] METHADONE SCREEN URINE Negative NEGATIVE [facility] METHAMPHETAMINES SCREEN URINE Negative NEGATIVE [facility] OPIATE SCREEN URINE Negative NEGATIVE [facility] OXYCODONE SCREEN URINE Negative NEGATIVE [facility] PHENCYCLIDINE SCREEN URINE Negative NEGATIVE [facility] TRICYCLIC ANTIDEPRESSANT URINE Negative NEGATIVE [facility] Type and screenon 02-14-2024 Abo/Rh(D) Positive [facility] HCG ( test) Ql (U)o n 02-11-2024 Interpretation and review of laboratory results Abnormal [facility] Preg Test, Ur Positive Negative [facility] Ultrasound - OfficeOrdered B y: Ravinder Burnett on 02-11-2024 [facility] Urinalysis macro (dipstick) panel (U)on 02-11-2024 Bilirubin, UA Negative Negative - 4(70) +++ mg/dL [facility] Blood, UA Negative Negative - 50 Jordan/mcL [facility] Clarity, UA Clear [facility] re Color, UA Yellow [facility] Glucose, UA Negative Negative - 1999(110) ++++ mg/dL [facility] Interpretation and review of laboratory results Normal [facility] Ketones, UA Negative Negative - 160(16) ++++ mg/dL [facility] Leukocytes, UA Negative Negative - 500+++ Leanne/mcL [facility] Nitrite, UA Negative Negative - Positive [facility] pH, UA 6 5 - 9 [facility] Protein, UA Negative Negative - 1999(20) ++++ mg/dL [facility] Spec Grav, UA 1.025 1 - 1.03 [facility] Urobilinogen, UA 0.2 0.2 - 12 mg/dL [facility] SARS-CoV-2 (COVID-19) RNA NA A+probe Ql (Resp)on 11-23-2021 SARS-CoV-2 (COVID-19) RNA RASHEED+probe Ql (Unsp spec) Positive [employer] Other Covid-19 PCR ([facility])on 11-03 SARS-CoV-2 (COVID-19) RNA RASHEED+probe Ql (Unsp spec) Not detected Normal NOT DETECTED [facility] Comment on above: Result Comment: This test is not yet approved or cleared by the [place] FDA. When there are no FDA-approved or cleared tests available, and other criteria are met, FDA can make tests available under an emergency access mechanism called an Emergency Use Authorization (EUA). The EUA for this test is supported by the [place] of Health and Human Service's (HHS's) declaration [...] consistent with SARS-CoV-2. Performed By: #### C [facility] #### [facility] [address] [place] [address] Dr. Kaela Stewart Vital Signs Date Time Vital Sign Value Performing Clinician Facility 07-10-2024 10:37-0400 Body mass index (BMI) [Ratio] 34.84 kg/m2 Ania Fenton MD Work Phone: [facility] 07-10-2024 10:37-0400 Body weight 89.22 kg Ania Fenton MD Work Phone: [facility] 07-10-2024 10:37-0400 Diastolic blood pressure 70 mm[Hg] Ania Fenton MD Work Phone: [facility] 07-10-2024 10:37-0400 Systolic blood pressure 108 mm[Hg] Ania Fenton MD Work Phone: [facility] 07-06-2024 16:15-0400 Body mass index (BMI) [Ratio] 35.07 kg/m2 Holly Sheehan RN Work Phone: [facility] 07-06-2024 16:15-0400 Body weight 89.81 kg Holly Sheehan RN Work Phone: [facility] 06-30-2024 11:25-0400 Body weight 88.81 kg Ronald Sri DO Work Phone: [facility] 06-30-2024 11:25-0400 Diastolic blood pressure 72 mm[Hg] Ronald Sri DO Work Phone: [facility] 06-30-2024 11:25-0400 Systolic blood pressure 118 mm[Hg] Ronald Sri DO Work Phone: [facility] 06-11-2024 14:12-0400 Body height 160 cm Berto Suárez MD Work Phone: [facility] 06-11-2024 14:12-0400 Diastolic blood pressure 76 mm[Hg] Berto Suárez MD Work Phone: [facility] 06-11-2024 14:12-0400 Heart rate 111 /min Berto Suárez MD Work Phone: [facility] 06-11-2024 14:12-0400 Systolic blood pressure 119 mm[Hg] Berto Suárez MD Work Phone: [facility] 06-10-2024 15:58-0400 Body weight 92.76 kg Ronald Sri DO Work Phone: [facility] 06-10-2024 15:58-0400 Diastolic blood pressure 76 mm[Hg] Ronald Sri DO Work Phone: [facility] 06-10-2024 15:58-0400 Systolic blood pressure 114 mm[Hg] Ronald Sri DO Work Phone: [facility] 04-15-2024 16:36-0500 Body weight 88.63 kg Chelsea Carson EMILY Work Phone: [facility] 04-15-2024 16:36-0500 Diastolic blood pressure 66 mm[Hg] Chelsea Lundberggerardo DIAZ Work Phone: [facility] 04-15-2024 16:36-0500 Systolic blood pressure 110 mm[Hg] Chelsea Lundberggerardo DIAZ Work Phone: [facility] 04-04-2024 10:57-0500 Body height 157.48 cm [facility] 04-04-2024 10:57-0500 Body mass index (BMI) [Ratio] 35.4 kg/m2 [facility] 04-04-2024 10:57-0500 Body temperature 99.8 [degF] [facility] 04-04-2024 10:57-0500 Body weight 87.99 kg [facility] 04-04-2024 10:57-0500 Diastolic blood pressure 71 mm[Hg] [facility] 04-04-2024 10:57-0500 Heart rate 118 /min [facility] 04-04-2024 10:57-0500 Respiratory rate 16 /min [facility] 04-04-2024 10:57-0500 SaO2% (BldA) [Mass fraction] 98 % [facility] 04-04-2024 10:57-0500 Systolic blood pressure 101 mm[Hg] [facility] 03-16-2024 16:35-0500 Body weight 88.18 kg Ronald Sri DO Work Phone: [facility] 03-16-2024 16:35-0500 Diastolic blood pressure 68 mm[Hg] Ronald Sri DO Work Phone: [facility] 03-16-2024 16:35-0500 Systolic blood pressure 108 mm[Hg] Ronald Sri DO Work Phone: [facility] 02-11-2024 09:32-0500 Body weight 86.18 kg [facility] Nurse [facility] 02-11-2024 09:32-0500 Diastolic blood pressure 70 mm[Hg] [facility] Nurse [facility] 02-11-2024 09:32-0500 Systolic blood pressure 110 mm[Hg] [facility] Nurse [facility] 11-23-2021 14:10-0400 Body height 154.94 cm Marianna Moralez Other [employer] Other 11-23-2021 14:10-0400 Body mass index (BMI) [Ratio] 34.01 kg/m2 Marianna Moralez Other [employer] Other 11-23-2021 14:10-0400 Body temperature 99.8 [degF] Marianna Moralez Other [employer] Other 11-23-2021 14:10-0400 Body weight 81.65 kg Marianna Moralez Other [employer] Other 11-23-2021 14:10-0400 Respiratory rate 18 /min Marianna Moralez Other [employer] Other 11-23-2021 14:10-0400 SaO2% (BldA) [Mass fraction] 97 % Marianna Moralez Other [employer] Other Encounters Encounter Date Encounter Type Care Provider Facility Start: 07-10-2024 End: 07-10-2024 ambulatory ANIA FENTON [facility] Comment on above: GA: 32w0d Start: 07-06-2024 End: 07-06-2024 Orders Only Holly Sheehan RN Work Phone: [facility] Comment on above: Diet controlled gest ational diabetes mellitus (GDM) in third trimester Polyhydramnios affec ting [O40.9XX0] (Primary Dx) Start: 06-30-2024 End: 06-30-2024 Bamboo flowsheet Ronald Sri DO Work Phone: [facility] Start: 06-30-2024 End: 06-30-2024 Bamboo flowsheet Ronald Sri DO Work Phone: [facility] Start: 06-30-2024 End: 06-30-2024 Office outpatient visit 15 minutes Ronald Sri DO Work Phone: [facility] Comment on above: Third trimester preg marcie; 30 weeks gestation of ; Supraventricular tachycardia of fetus affecting management of ; Polyhydramnios affecting ; Excessive growth affecting management of in third trimester, single or unspecified fetus Start: 06-30-2024 End: 06-30-2024 ambulatory RONALD SRI Not Available Start: 06-29-2024 End: 06-29-2024 Documentation procedure Hayley Conner RDOK [facility] Start: 06-29-2024 End: 06-29-2024 Telephone encounter Mendy North RN [facility] Start: 06-26-2024 End: 06-26-2024 Orders Only Anahi Ragsdale RN [facility] Comment on above: Diet controlled gest ational diabetes mellitus (GDM) in third trimester (Primary Dx) Start: 06-24-2024 End: 06-28-2024 Evaluation and management of inpatient [facility] Start: 06-24-2024 End: 06-24-2024 Evaluation and management of inpatient [facility] Start: 06-23-2024 End: 06-23-2024 Evaluation and management of inpatient [facility] Start: 06-22-2024 End: 06-22-2024 Telephone encounter Luther Buchanan RN [facility] Alexsandra serrano Comment on above: Medication Problem Start: 06-22-2024 End: 06-28-2024 Evaluation and management of inpatient [facility] Start: 06-22-2024 End: 06-22-2024 Evaluation and management of inpatient [facility] Start: 06-21-2024 End: 06-21-2024 [facility] Comment on above: patient update Start: 06-21-2024 End: 06-21-2024 Evaluation and management of inpatient [facility] Start: 06-20-2024 End: 06-20-2024 Evaluation and management of inpatient [facility] Start: 06-19-2024 End: 06-28-2024 Evaluation and management of inpatient [facility] Start: 06-18-2024 End: 06-18-2024 Evaluation and management of inpatient [facility] Start: 06-17-2024 End: 06-17-2024 Evaluation and management of inpatient [facility] Start: 06-16-2024 End: 06-16-2024 Evaluation and management of inpatient [facility] Start: 06-15-2024 End: 06-23-2024 [facility] Start: 06-15-2024 End: 06-15-2024 Evaluation and management of inpatient [facility] Start: 06-12-2024 End: 06-12-2024 Orders Only Veda Bonilla RN [facility] Comment on above: Supraventricular tac hycardia of fetus affecting management of (Primary Dx); Polyhydramnios affecting Start: 06-12-2024 End: 06-23-2024 Evaluation and management of inpatient [facility] Start: 06-11-2024 End: 06-28-2024 Evaluation and management of inpatient WALDOLesly SEGOVIA [facility] Start: 06-11-2024 End: 06-11-2024 Office consultation new/estab patient 80 min Berto Suárez MD Work Phone: [facility] Comment on above: 27 weeks gestation o f (Primary Dx); Supraventricular tachycardia of fetus affecting management of ; Polyhydramnios affecting ; Excessive growth affecting management of in second trimester, single or unspecified fetus Start: 06-11-2024 End: 06-11-2024 ambulatory BERTO SUÁREZ [facility] Start: 06-11-2024 End: 06-11-2024 Chart abstracting Scanning Provider External [facility] Start: 06-11-2024 End: 06-11-2024 ambulatory RONALD FIERRO [facility] Start: 06-10-2024 End: 06-10-2024 ambulatory RONALDAshley OLIVAREZO Not Available Start: 06-10-2024 End: 06-10-2024 Office outpatient visit 15 minutes Ronald Sri DO Work Phone: [facility] Comment on above: Second trimester pre gnancy; 27 weeks gestation of ; tachycardia affecting management of mother Start: 06-10-2024 End: 06-10-2024 Bamboo flowsheet Ronald Sri DO Work Phone: [facility] Start: 06-10-2024 End: 06-11-2024 Bamboo flowsheet Ronald Sri DO Work Phone: [facility] Start: 06-10-2024 End: 06-11-2024 Clinisync Result Encounter Ronald Sri DO Work Phone: [facility] External Department Unsolicited Start: 05-11-2024 End: 05-11-2024 ambulatory CHELSEA CARSON Not Available Start: 05-11-2024 End: 05-11-2024 ambulatory CHELSEA CARSON Not Available Start: 05-04-2024 End: 05-07-2024 Clinisync Result Encounter Chelsea Carson PA Work Phone: [facility] External Department Unsolicited Start: 05-04-2024 End: 05-07-2024 Clinisync Result Encounter Chelsea Yamileth PA Work Phone: [facility] External [facility] Unsolicited Start: 04-15-2024 End: 04-15-2024 ambulatory CHELSEA CARSON Not Available Start: 04-15-2024 End: 04-15-2024 Patient [...] Start: 04-15-2024 End: 04-20-2024 Bamboo flowsheet Chelsea Yamileth PA Work Phone: [facility] Start: 04-15-2024 End: 04-20-2024 Clinisync Result Encounter Chelsea Lundberggerardo DIAZ Work Phone: [facility] External [facility] Unsolicited Start: 04-15-2024 End: 04-17-2024 External Result Encounter Chelsea Yamileth PA Work Phone: [facility] Unsolicited Start: 04-14-2024 End: 04-15-2024 Telephone encounter Chavez Queen APRN-EARLE Work Phone: [facility] Start: 04-04-2024 End: 04-04-2024 ambulatory [facility] Work Phone: Start: 04-04-2024 End: 04-04-2024 Patient encounter procedure [facility] Work Phone: Start: 03-16-2024 End: 03-16-2024 ambulatory RONALD FIERRO Not Available Start: 03-16-2024 End: 03-16-2024 Office outpatient visit 15 minutes Ronald Sri DO Work Phone: [facility] Comment on above: Second trimester pre gnancy; 15 weeks gestation of Start: 03-16-2024 End: 03-16-2024 Bamboo flowsheet Ronald Sri DO Work Phone: [facility] Start: 03-16-2024 End: 03-16-2024 Bamboo flowsheet Ronald Sri DO Work Phone: [facility] Start: 02-14-2024 End: 02-14-2024 Clinisync Result Encounter Ronald Sri DO Work Phone: [facility] External Department Unsolicited Start: 02-14-2024 End: 02-14-2024 Clinisync Result Encounter Ronald Sri DO Work Phone: [facility] External Department Unsolicited Start: 02-11-2024 End: 02-11-2024 ambulatory [facility] Sri Nurse [facility] Comment on above: GA: 10w4d Start: 09-10-2023 End: 09-11-2023 Telephone encounter Chavez Queen APRN-INTERNET MARKETING ANALYST Work Phone: [facility] Start: 11-23-2021 End: 11-23-2021 ambulatory Marianna Moralez Other [employer] Other Start: 11-23-2021 Office outpatient ne w 30 minutes Marianna Moralez [facility] Start: 11-28-2020 End: 11-28-[address] MECHELLE MOODY Facility:[facility]1 Procedures Date Procedure Procedure Detail Performing Clinician Start: 07-06-2024 Glucose quantitative blood xcpt reagent strip Michelle Valencia PA-C Work Phone: Start: 06-30-2024 Urnls dip stick/tabl et rgnt non-auto w/o micrscp Ronald Sri DO Work Phone: Start: 06-10-2024 ALL CBC WITH AUTO DIFF Ronald Sri DO Work Phone: Start: 06-10-2024 Urnls dip stick/tabl et rgnt non-auto w/o micrscp Ronald Sri DO Work Phone: Start: 06-10-2024 Assay of thyroid stimulating hormone tsh Not In System Ref Prov Start: 05-13-2024 ULTRASOUND OFFICE Not I n System Ref Prov Start: 05-04-2024 AFP, SERUM, OPEN SPI NA BIFIDA Chelsea DIAZ Work Phone: Start: 04-15-2024 RECURRENT VAGINITIS (HTRX) Chelsea DIAZ Work Phone: Start: 04-15-2024 Urnls dip stick/tabl et rgnt non-auto w/o micrscp Chelsea DIAZ Work Phone: Start: 04-15-2024 IGP,APTIMA HPV,AGE GDLN Chelsea DIAZ Work Phone: Start: 04-15-2024 Microscopic observat ion [Identifier] in Cervix by Cyto stain Scanning External Start: 02-14-2024 ALL CBC WITH AUTO DIFF Ronald Sri DO Work Phone: Start: 02-14-2024 Antibody screen Scannin g External Start: 02-14-2024 Drug scrn 1+ class nonchromo Not In System Ref Prov Start: 02-14-2024 Hemoglobin glycosyla sophie a1c Scanning Provider External Start: 02-14-2024 HIV 1&2 AB/AG SCREEN (P24 AG) Not In System Ref Prov Start: 02-14-2024 Iaad ia hepatitis b surface antigen Not In System Ref Prov Start: 02-14-2024 Syphilis test non-treponemal antibody qual Not In System Ref Prov Start: 02-14-2024 TYPE AND SCREEN Not In System Ref Prov Start: 02-14-2024 [facility] DRUG SCREEN RAPI D (URINE) Ronald Sri DO Work Phone: Start: 02-11-2024 ULTRASOUND OFFICE Not I n System Ref Prov Start: 02-11-2024 End: 02-11-2024 Urnls dip stick/tablet rgnt non-auto w/o micrscp Ronald Srimorgan DINERO Work Phone: Start: 05-28-2022 Adult depression scr eening assessment Chavez Karyna CODY-INTERNET MARKETING ANALYST Work Phone: Start: 12-15-2018 Microscopic observat ion [Identifier] in Cervix by Cyto stain Chavez Queen ESCOBAR-INTERNET MARKETING ANALYST Work Phone: Plan of Treatment Date Care Activity Detail Author Start: 07-10-2034 DTaP,Tdap and Td Vaccines (8 - Td or Tdap) DTaP,Tdap and Td Vaccines (8 - Td or Tdap) [facility] [employer] Start: 04-15-2027 Screening for malignant neoplasm of cervix Pap Smear [facility] Start: 07-10-2025 Adult BMI Screening Adult BMI Screen ing [facility] Start: 07-10-2025 Tobacco Screening Tobacco Screening [facility] Start: 06-12-2025 End: 06-12-2025 US MFM with or without consult US MFM with or without consult Imaging Routine Supraventricular tachycardia of fetus affecting management of Polyhydramnios affecting Expected: 06/12/2025 (Approximate), Expires: 06/12/2025 [employer] Work Phone: Comment on above: Expected: 06/12/2025 (Approximate), Expires: 06/12/2025 Start: 06-11-2025 Adult BMI Screening Adult BMI Screen ing [facility] Start: 06-11-2025 Tobacco Screening Tobacco Screening [facility] Start: 11-02-2024 Influenza vaccination Influenz a Vaccine (Season Ended) [facility] Start: 07-24-2024 End: 07-24-2024 Patient encounter procedure 07/24/2024 9:45 AM EDT Routine [facility] [address] [place] [id number] Margoth Tatum MD [address] [place] [address] [facility] Start: 07-17-2024 End: 07-17-2024 Patient encounter procedure [facility] US Imaging Start: 07-15-2024 End: 07-15-2024 Patient encounter procedure 07/15/2024 3:40 PM EDT Routine [facility] [address] [place] [phone] Brandi Baer NP [address] [place] [phone] [facility] Start: 07-10-2024 End: 07-10-2024 ambulatory 07/10/2024 10:[address] [facility] [address] [place] [address] Ania Fenton MD [address] [place] [address], [place] [address] [facility] Start: 07-06-2024 End: 07-06-2024 ambulatory 07/06/2024 1:30 PM EDT Support Visit Maternal- Medicine at [facility] [address] [place] [address] Berto Suárez MD [address], [address] [place] [address], [place] [address] Holly Sheehan RN [address], [address] [place] [address], [place] [address], [address] [place] [address], [place] [address] Maternal- Medicine at [facility] Start: 06-30-2024 End: 12-30-2024 US biophysical profile w non stress test US biophysical profile w non stress test Imaging Routine Supraventricular tachycardia of fetus affecting management of Polyhydramnios affecting Excessive growth affecting management of in third trimester, single or unspecified fetus Expected: 06/30/2024 (Approximate), Expires: 12/30/2024 [facility] Work Phone: Comment on above: Expected: 06/30/2024 (Approximate), Expires: 12/30/2024 Start: 06-30-2024 End: 06-30-2024 Patient encounter procedure 06/30/2024 11:10 AM EDT Routine [facility] [address] [place] [address] Ronald Fierro, DO [address] [place], [place] [id number] Arrived [facility] Comment on above: Arrived Start: 06-24-2024 End: 06-24-2024 Patient encounter procedure 06/24/2024 2:50 PM EDT Routine [facility] [address] [place] [phone] Ronald Fierro, DO [address] [place], [place] [id number] [facility] Start: 06-12-2024 End: 06-12-2024 Patient encounter procedure 06/12/2024 9:40 AM EDT Office Visit [facility] [address] [place] [address] Chavez Queen, DUCK BILL OPERATOR-INTERNET MARKETING ANALYST [address] [place] [address] [facility] Start: 05-11-2024 End: 05-11-2024 Patient encounter procedure 05/11/2024 3:40 PM EDT Routine [facility] [address] [place] [address] Chelsea Carson PA [address] [place] [address] [facility] Start: 05-11-2024 End: 05-11-2024 Professional / ancillary services management 05/11/2024 2:30 PM EDT Ancillary Procedure [facility] [address] [place] [phone] [facility] Start: 04-15-2024 End: 04-15-2024 Patient encounter procedure 04/15/2024 3:50 PM EST Routine [facility] [address] [place] [phone] Chelsea Carson PA [address] [place] [address] [facility] Start: 04-15-2024 End: 10-13-2024 Alpha fetoprotein, maternal Alpha fetoprotein, maternal Lab Routine Second trimester 19 weeks gestation of Expected: 04/15/2024 (Approximate), Expires: 10/13/2024 [facility] Comment on above: Expected: 04/15/2024 (Approximate), Expires: 10/13/2024 Start: 04-15-2024 End: 04-15-2025 US for US OB 14+ weeks anatomy scan Imaging Routine Screening, , for anatomic survey Expected: 04/15/2024, Expires: 04/15/2025 [facility] Comment on above: Expected: 04/15/2024 , Expires: 04/15/2025 Start: 03-16-2024 End: 03-16-2024 Patient encounter procedure 03/16/2024 3:50 PM EST Routine [facility] [address] [facility] [place] [phone] Ronald Fierro DO [address] [place] [address] [facility] Start: 02-11-2024 End: 12-10-2025 ABO/Rh ABO/Rh Lab Routine Missed menses , unspecified gestational age Expected: 02/11/2024 (Approximate), Expires: 02/10/2025 [facility] Comment on above: Expected: 02/11/2024 (Approximate), Expires: 02/10/2025 Start: 02-11-2024 End: 02-10-2025 Blood type and Indirect antibody screen panel - Blood Type and screen Lab Routine Missed menses , unspecified gestational age Expected: 02/11/2024 (Approximate), Expires: 02/10/2025 [facility] Work Phone: Comment on above: Expected: 02/11/2024 (Approximate), Expires: 02/10/2025 Start: 02-11-2024 End: 02-10-2025 Drugs of abuse panel - Urine by Screen method Rapid drug screen, urine Lab Routine , unspecified gestational age Encounter for supervision of normal first in first trimester Expected: 02/11/2024 (Approximate), Expires: 02/10/2025 [facility] Comment on above: Expected: 02/11/2024 (Approximate), Expires: 02/10/2025 Start: 02-11-2024 End: 02-10-2025 US Pelvis transvaginal US OB transvaginal Imaging Routine Missed menses Expected: 02/11/2024 (Approximate), Expires: 02/10/2025 [facility] Comment on above: Expected: 02/11/2024 (Approximate), Expires: 02/10/2025 Start: 11-08-2023 End: 11-08-2023 Patient encounter procedure 11/08/2023 10:00 AM EDT Office Visit [facility] [address] [place] [address] Chavez Queen, DUCK BILL OPERATOR-INTERNET MARKETING ANALYST [address] [place] [address] [facility] Start: 05-29-2023 Adult BMI Screening Adult BMI Screen ing [facility] Start: 05-29-2023 Depression Screening Depression Scre ening [facility] Start: 05-29-2023 Tobacco Screening Tobacco Screening [facility] Start: 12-15-2021 Screening for malignant neoplasm of cervix Pap Smear [facility] Start: 11-22-2020 DTaP,Tdap and Td Vaccines (7 - Td or Tdap) DTaP,Tdap and Td Vaccines (7 - Td or Tdap) [facility] Start: 10-07-2015 Adult BMI Follow Up Plan Adult BMI Follow Up Plan [facility] Bacteria identified in Urine by Culture Urine culture Microbiology Routine Missed menses Ordered: 02/11/2024 [facility] Comment on above: Ordered: 02/11/2024 CBC W Auto Differential panel - Blood CBC and differential Lab Routine Missed menses , unspecified gestational age Ordered: 02/11/2024 [facility] Comment on above: Ordered: 02/11/2024 CHLAMYDIA TRACHOMATI S (GENITO/STI) CHLAMYDIA TRACHOMATIS (GENITO/STI) Lab Routine STD exposure Ordered: 04/15/2024 [facility] Comment on above: Ordered: 04/15/2024 Cytology Cervical or vaginal smear or scraping study Pap Smear Pathology and Cytology Routine Well woman exam with routine gynecological exam Ordered: 04/15/2024 [facility] Comment on above: Ordered: 04/15/2024 Hemoglobin A1c/Hemoglobin.total in Blood Hemoglobin A1c Lab Routine Missed menses , unspecified gestational age Ordered: 02/11/2024 [facility] Comment on above: Ordered: 02/11/2024 Hepatitis B virus surface Ag [Presence] in Serum or Plasma by Immunoassay Hepatitis B surface antigen Lab Routine Missed menses , unspecified gestational age Ordered: 02/11/2024 [facility] Comment on above: Ordered: 02/11/2024 Hepatitis C virus Ab [Presence] in Serum or Plasma by Immunoassay Hepatitis C antibody Lab Routine Missed menses , unspecified gestational age Ordered: 02/11/2024 [facility] Comment on above: Ordered: 02/11/2024 HIV-1/HIV-2 antigen/antibody combination immunoassay HIV-1 and HIV-2 antibodies Lab Routine Missed menses , unspecified gestational age Ordered: 02/11/2024 [facility] Comment on above: Ordered: 02/11/2024 Neisseria gonorrhoea e DNA [Presence] in Unspecified specimen by RASHEED with probe detection Neisseria gonorrhea DNA probe, direct Lab Routine STD exposure Ordered: 04/15/2024 [facility] Comment on above: Ordered: 04/15/2024 Reagin Ab [Presence] in Serum by RPR RPR Lab Routine Missed menses , unspecified gestational age Ordered: 02/11/2024 [facility] Comment on above: Ordered: 02/11/2024 Rubella antibody, IgG Rubella an tibody, IgG Lab Routine Missed menses , unspecified gestational age Ordered: 02/11/2024 [facility] Comment on above: Ordered: 02/11/2024 SURESWAB(R) ADVANCED VAGINITIS PLUS, TMA SURESWAB(R) ADVANCED VAGINITIS PLUS, TMA Pathology and Cytology Routine Vaginal discharge Ordered: 04/15/2024 [facility] Work Phone: Comment on above: Ordered: 04/15/2024 Immunizations Immunization Date Immunization Notes Care Provider [facility] 07-10-2024 tetanus toxoid, redu john diphtheria toxoid, and acellular pertussis vaccine, adsorbed Ania Fenton MD Work Phone: [facility] 07-10-2024 Immunization, In Cli mayco,; Translations: [Drug or medicament (substance)] Ania Fenton MD Work Phone: [facility] Work Phone: 01-10-2021 Influenza, injectabl e, Madin [place] Canine Kidney, preservative free, quadrivalent Chavez Queen DUCK BILL OPERATORGlofox Work Phone: [facility] 01-10-2021 influenza virus vacc ine, unspecified formulation Ronald Srimorgan DINERO Work Phone: [facility] 11-22-2015 meningococcal oligosaccharide (groups A, C, Y and W-135) diphtheria toxoid conjugate vaccine (MCV4O) Chavez Queen [employer]CK BILL OPERATOR[employer] Work Phone: [facility] 11-22-2010 tetanus toxoid, redu jonh diphtheria toxoid, and acellular pertussis vaccine, adsorbed Chavez Queen [employer] BILL OPER[employer] Work Phone: [facility] 10-20-2003 DTaP-hepatitis B and poliovirus vaccine Chavez Queen APRN-[facility] Work Phone: [facility] 10-20-2003 measles, mumps and rubella virus vaccine Chavez Queen DUCK BILL OPERATOR-[facility] Work Phone: [facility] 10-24-1998 diphtheria, tetanus toxoids and acellular pertussis vaccine, unspecified formulation Chavez Queen DUCK BILL OPERATOR-[facility] Work Phone: [facility] 10-24-1998 haemophilus influenz ae type b vaccine, conjugate unspecified formulation Chavez Queen DUCK BILL OPERATOR-[facility] Work Phone: [facility] 10-24-1998 measles, mumps and rubella virus vaccine Chavez Queen DUCK BILL OPERATOR-[facility] Work Phone: [facility] 06-08-1998 diphtheria, tetanus toxoids and acellular pertussis vaccine, unspecified formulation Chavez Queen DUCK BILL OPERATOR-[facility] Work Phone: [facility] 06-08-1998 haemophilus influenz ae type b vaccine, conjugate unspecified formulation Chavez Queen [facility] Work Phone: [facility] 06-08-1998 poliovirus vaccine, unspecified formulation Chavez Queen DUCK BILL OPERATOR-[facility] Work Phone: [facility] 04-01-1998 diphtheria, tetanus toxoids and acellular pertussis vaccine, unspecified formulation Chavez Queen DUCK BILL OPERATOR-[facility] Work Phone: [facility] 04-01-1998 haemophilus influenz ae type b vaccine, conjugate unspecified formulation Chavez Queen DUCK BILL OPERATOR-[facility] Work Phone: [facility] 04-01-1998 hepatitis B vaccine, pediatric or pediatric/adolescent dosage Chavez Queen DUCK BILL OPERATOR-[facility] Work Phone: [facility] 04-01-1998 poliovirus vaccine, unspecified formulation Chavez Queen DUCK BILL OPERATOR-[facility] Work Phone: [facility] 01-12-1998 diphtheria, tetanus toxoids and acellular pertussis vaccine, unspecified formulation Chavez Queen DUCK BILL OPERATOR-INTERNET MARKETING ANALYST Work Phone: [facility] 01-12-1998 haemophilus influenz ae type b vaccine, conjugate unspecified formulation Chavez Queen DUCK BILL OPERATOR-INTERNET MARKETING ANALYST Work Phone: [facility] 01-12-1998 poliovirus vaccine, unspecified formulation Chavez Queen DUCK BILL OPERATOR-INTERNET MARKETING ANALYST Work Phone: [facility] 1997 hepatitis B vaccine, pediatric or pediatric/adolescent dosage Chavez Queen DUCK BILL OPERATOR-INTERNET MARKETING ANALYST Work Phone: [facility] 1997 hepatitis B vaccine, pediatric or pediatric/adolescent dosage Chavez Queen DUCK BILL OPERATOR-INTERNET MARKETING ANALYST Work Phone: [facility] Payers Date Payer Category [facility]ayer [facility] [id number] 2024 Private Health Insurance [facility] MEDICA[facility] [id number] 2024 Medicaid [place]ICAID [id number] 2024 Medicaid [id number] 2017 Francisco Manzano ld Managed Care - PPO ANTHEM [id number] 2017 Unknown KWASI HERNANDEZ SS (PPO) [id number] 2017-Present [phone] [address] [place] [address] [id number]. [id number] 1997 Unknown [id number] 2.16.840.1.443167.3.579.2. 593 1997 Unknown [id number] 2.16.840.1.916886.3.579.2. 1259 1997 Unknown [id number] 2.16.840.1.285294.3.579.2. 1259 1997 Unknown [id number] 2.16840.1.736685.3.579.2. 125 1997 Unknown [id number] 2.16.840.1.227444.3.579.2. 125 1997 Unknown [id number] 2.16840.1.425944.3.579.2. 125 1997 Unknown [id number] 2.16840.1.595127.3.579.2. 125 1997 Unknown [id number] 2.840.1.284736.3.579.2. 1258 1997 Unknown [id number] 2.840.1.483833.3.579.2. 128 1997 Unknown [id number] 2.840.1.689691.3.579.2. 128 1997 Unknown [id number] 2.840.1.897986.3.579.2. 128 1997 Unknown [id number] 2.840.1.948027.3.579.2. 1286 1997 Unknown [id number] 2.840.1.696152.3.579.2. 1286 1997 Unknown [id number] 2.840.1.800361.3.579.2. 128 1997 Unknown [id number] 2.840.1.066875.3.579.2. 1286 1997 Unknown [id number] 2.840.1.865485.3.579.2. 128 1997 Unknown [id number] 2.16840.1.294722.3.579.2. 1286 1997 Unknown [id number] 2.840.1.352433.3.579.2. 128 1997 Unknown [id number] 2.16.840.1.221396.3.579.2. 1286 1997 Unknown [id number] 2.16.840.1.823509.3.579.2. 1286 1997 Unknown [id number] 2.16.840.1.985649.3.579.2. 1286 1997 Unknown [id number] 2.16.840.1.912337.3.579.2. 1286 1997 Unknown [id number] 2.16.840.1.127880.3.579.2. 1286 1997 Unknown [id number] 2.16.840.1.686393.3.579.2. 1286 1997 Unknown [id number] 2.16.840.1.031072.3.579.2. 1286 1997 Unknown [id number] 2.16.840.1.034680.3.579.2. 1286 1997 Unknown [id number] 2.16.840.1.929639.3.579.2. 1286 1997 Unknown [id number] 2.16.840.1.329377.3.579.2. 1286 1997 Unknown [id number] 2.16.840.1.743599.3.579.2. 1286 1959 Unknown [id number] Social History Date Type Detail Facility Start: 05-28-2022 End: 07-10-2024 Sex Assigned At [facility] [employer] Other Tobacco smoking stat us MOIS Tobacco smoking consumption unknown [facility] Start: 12-13-2023 [facility] Start: 1997 Sex assigned at Not on file [facility] Start: 05-28-2022 End: 04-04-2024 Tobacco smoking status MOIS Never smoked tobacco (finding) [facility] Start: 10-07-2014 End: 04-04-2024 Sex Female (finding) [facility] Start: 1995 Sex Assigned At Female [facility] Start: 05-28-2022 Tobacco use and exposure Smokeless tobacco non-user [facility] Start: 05-28-2022 End: 07-10-2024 Alcoholic beverage intake Ex-drinker (finding) [facility] Start: 05-28-2022 End: 07-10-2024 History of Social function [facility] Adolescent depressio n screening assessment 0 [facility] Medical Equipment Procedure Code Equipment Code Equipment Origin al Text Equipment Identifier Dates Start: 06-26-2024 End: 07-06-2024 Functional Status Date Assessment Result Facility [facility] Clinical Notes 11-23-2021 to 07-10-2024 Henrietta Knapp CMA - 07/10/2024 10:00 AM Henrik Fatima MD - 07/10/2024 10:00 AM Connor Fenton MD - 07/10/2024 10:00 AM KELLI Bonner - 07/06/2024 4:14 PM EDT Note Date & Type Note Facility 07-10-2024 History of Presen t illness Narrative Pt here for initial HROB 32w0d Denies lof vb ctx Confirms +fm No concerns today HR [facility] Initial High Risk Obstetrics Visit Initial HROB Visit Patient is being transferred to HROB clinic due to: arrythmia Patient Active Problem List Diagnosis Intrauterine Supraventricular tachycardia of fetus affecting management of Polyhydramnios affecting Excessive growth affecting management of mother in second trimester, antepartum Current Outpatient Medications on File Prior to Visit Medication Sig Dispense Refill alcohol swabs pads, medicated To use when performing a fingerstick 200 each 0 blood sugar diagnostic (glucose blood) strip Check blood glucose fasting and 1 hour after each meal 200 strip 0 blood-glucose meter [facility] Please check blood glucose fasting and 1 hour after each meal 1 each 0 blood-glucose sensor (FREESTYLE NEIDA 3 PLUS SENSOR) device Wear for 15 days and change 2 each 3 calcium carbonate-vitamin D3 (OSCAL 500 + D) 500 mg (1,250 mg) - 200 units per tablet Take 1 tablet by mouth in the morning and 1 tablet in the evening. Take with meals. 180 tablet 3 digoxin (LANOXIN) 250 mcg tablet Take 1 tablet (250 mcg total) by mouth every 12 (twelve) hours. 60 tablet 3 lancets 33 gauge misc To check blood glucose fasting and 1 hour after each meal 200 each 0 magnesium oxide (MAGOX) 400 mg tablet Take 1 tablet (400 mg total) by mouth in the morning and 1 tablet (400 mg total) before bedtime. 60 tablet 3 potassium chloride (K-TAB,KLOR-CON) 10 MEQ CR tablet Take 5 tablets (50 mEq total) by mouth in the morning. 150 tablet 3 [id number] acid ( 19) 29 mg iron- 1 mg tablet,chewable Chew 1 tablet and swallow in the morning. sotaloL (BETAPACE) 160 mg tablet Take 1 tablet (160 mg total) by mouth every 12 (twelve) hours. 60 tablet 3 ondansetron (ZOFRAN) 4 mg tablet Take 1 tablet (4 mg total) by mouth every 8 (eight) hours as needed for nausea or vomiting. (Patient not taking: Reported on 07/10/2024) 20 tablet 0 No current facility-administered medications on file prior to visit. Today: Good movement, no contractions, leakage of fluid, no bleeding OB History Para Term AB Living 2 1 1 0 0 1 SAB IAB Ectopic Multiple Live Births 0 0 0 0 1 # Outcome Date GA Lbr Zeus/2nd Weight Sex Type Anes PTL Lv 2 Current 1 Term 10/11/16 40w0d F Vag-Spont EPI ÁNGELA Diabetes no Hypertension no Labor no no < 34 weeks EGA no Past Medical History: Diagnosis Date Gestational diabetes History of Thrombotic event no History of Asthma no History of HSV, genital no Willing to receive blood products, if indicated yes Pets in household yes 1 cat, boyfriend changes litter box History reviewed. No pertinent surgical history. Family History Problem Relation Age of Onset Heart disease Mother No Known Problems Sister Genetic History--see Flow Sheet Congenital anomaly no Cardiac defect no Chromosomal abnormality no Thrombotic event (1st degree relative) no No Known Allergies Social History Lives with self and boyfriend and daughter CARLOS is involved. 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 Education level: college Safe in relationship: yes Access to food: yes Review of Systems - General: Fever/ Chills no HEENT Rhinorrhea no Sore Throat no CV Chest Pain no Palpitations no Pulm: Shortness of Breath no Persistent cough no Wheezing no GI Nausea no Vomiting no Heartburn yes Diarrhea no Constipation no Extr: Edema no Dysuria no Hematuria no Mood: stable Physical Exam VS: BP 108/70 Wt 89.2 kg (196 lb 11.2 oz) LMP 12/07/2023 BMI 34.84 kg/m General Alert, NAD Lungs: CTAB CV: Regular rate Abdomen: Soft, non-tender, gravid FHTs: 121 FH: 33 Extr: Edema: 1+ bilateral lower extremity edema Assessment and Plan Veda Mtz 28 y.o. at 32w0d Dated by: w US complicated by: arrhythmia/ SVT S/p hospital admission end june Continue sotalol and digoxin MFM appointment July 17 with growth GDMA 2 Continue to follow up with MFM for blood sugars Blood sugars have all been in normal range on CGM Declined insulin management in the hospital care First trimester Cell free DNA: low risk per patient Carrier screening 28 week labs CBC, HIV, Syphilis completed: yes Rh status: positive Third trimester Tdap: will do with regular OBGYN GBS at 36 weeks Mode of delivery: vaginal delivery testing: Saturday/ NST/ [facility] at [place] Reviewed labor warnings and kick counts Problem List Excessive growth affecting management of mother in second trimester, antepartum Intrauterine Overview First trimester Cell free DNA: low risk per patient Carrier screening 28 week labs CBC, HIV, Syphilis completed: yes Rh status: positive Third trimester Tdap: will do with regular OBGYN GBS at 36 weeks Mode of delivery: testing: Saturday/ NST/ [facility] at [place] Polyhydramnios affecting Supraventricular tachycardia of fetus affecting management of - Primary Overview S/p hospital admission end june Continue sotalol and digoxin MFM appointment July 17 with growth US RTC 2 weeks via HROB Lydia Fatima MD OBGYN PGY-4 Attending Attestation: I saw the patient. I participated and was physically present during the critical/connolly portions of the service. I was directly involved in the management and treatment plan of the patient. I reviewed the resident's note. Additional Notes/Findings: 28 y.o. at 32w0d with svt, treated by sotalol and digoxin. She did not convert on flecainide. She has not yet seen peds cardiology since discharge. No future appointments are scheduled at this time. Next MFM appointment is 07/17/24. GDMA2 diagnosed in the hospital. Patient declined insulin at that time. CGM is within goal. Location for delivery: it was discussed in the hospital that she would deliver at [facility]. Advised patient to review with MFM as she prefers to continue her care with her primary obgyn and delivery hospital. Reviewed that the recommendation to deliver at [facility] would warrant care with our office and that after she would return to her primary obgyn except for the potential wound check or bp check. Ania Fenton MD [facility] 07/13/2024 7:08 AM documented in this encounter [facility] 07-06-2024 History of Presen t illness Narrative CGM report reviewed. No medication needed at this time. KELLI Fernandes 07/06/24 1617 documented in this encounter [facility] 07-06-2024 Group counseling note Patient: Veda Mtz Date: 07/06/2024 Vitals: 07/06/241614 Weight: 89.8 kg (198 lb) Patient present for diabetes education group class per doctor order secondary to diagnosis of GDM and/or abnormal glucose tolerance. Food recall suggests patient typically consumes a diet of mainly healthy choices. Pt has gained 8 # to date. Weight gain goal is 11-20#. Pt appears willing to make changes. Nutrition diagnosis: inconsistent carbohydrate intake related to lack of nutrition knowledge as evidenced by food log. Instructed pt in 1900 kcal meal plan of 3 meals and 3 snacks, carbohydrate counting, label reading, dining out, and portion control. Energy content of meal plan to be adjusted as needed based on patient's blood glucose control and weight gain/loss. Discussed foods rich in iron and calcium. Encouraged pt to limit dining out and measure carbohydrates for 2 days. To send 2 day food log and blood glucoses. Please refer to health habits for other goals. Face to face time was 100 minutes. [employer] Work Phone: 07-06-2024 Miscellaneous Notes Patient: Veda Mtz Date: 07/06/2024 Vitals: 07/06/24 1615 Weight: 89.8 kg (198 lb) Patient present for diabetes education group class per doctor order secondary to diagnosis of GDM and/or abnormal glucose tolerance. Food recall suggests patient typically consumes a diet of mainly healthy choices. Pt has gained 8 # to date. Weight gain goal is 11-20#. Pt appears willing to make changes. Nutrition diagnosis: inconsistent carbohydrate intake related to lack of nutrition knowledge as evidenced by food log. Instructed pt in 1900 kcal meal plan of 3 meals and 3 snacks, carbohydrate counting, label reading, dining out, and portion control. Energy content of meal plan to be adjusted as needed based on patient's blood glucose control and weight gain/loss. Discussed foods rich in iron and calcium. Encouraged pt to limit dining out and measure carbohydrates for 2 days. To send 2 day food log and blood glucoses. Please refer to health habits for other goals. Face to face time was 100 minutes. documented in this encounter [employer] 06-30-2024 History of Presen t illness Narrative Reason for Appointment: Patient ID: Veda Mtz is a 28 y.o. female who presents for Routine Visit Patient presents today for Return OB appointment. MEDICATIONS Current Outpatient Medications Medication Instructions Calcium Carb-Cholecalciferol (Oyster Shell Calcium w/D) 500-5 MG-MCG tablet 1 tablet, 2 times daily with meals digoxin (LANOXIN) 250 mcg, 2 times daily magnesium oxide (MAG-OX) 400 mg, 2 times daily potassium chloride CR (Klor-Con) 10 MEQ ER tablet 50 mEq, Daily RT Vit-Fe Fumarate-FA (PNV Plus Multivitamin) 27-1 MG tablet 1 tablet, Oral, Daily Vit-Fe Fumarate-FA ( Plus) 27-1 MG tablet Vit-Fe Fumarate-FA ( Vitamins) 28-0.8 MG tablet 1 tablet, Oral, Daily sotalol (BETAPACE) 160 mg, 2 times daily ALLERGIES No Known Allergies PROBLEMS Active Ambulatory Problems Diagnosis Date Noted No Active Ambulatory Problems Resolved Ambulatory Problems Diagnosis Date Noted No Resolved Ambulatory Problems No Additional Past Medical History HISTORY PAST MEDICAL HISTORY SOCIAL HISTORY No past medical history on file. Social History Tobacco Use Smoking status: Not on file Smokeless tobacco: Not on file Substance Use Topics Alcohol use: Not on file Drug use: Not on file FAMILY HISTORY No family history on file. SURGICAL HISTORY No past surgical history on file. REVIEW OF SYSTEMS Review of Systems: Review of Systems Constitutional: Negative. HENT: Negative. Eyes: Negative. Respiratory: Negative. Cardiovascular: Negative. Gastrointestinal: Negative. Genitourinary: Negative. Musculoskeletal: Negative. Skin: Negative. Neurological: Negative. All other systems reviewed and are negative. Hematological: Negative. Endocrine: Negative. Allergic/Immunologic: Negative. OBJECTIVE Objective: Physical Exam Constitutional: Appearance: Normal appearance. She is well-developed. Cardiovascular: Rate and Rhythm: Normal rate and [...] nursing note reviewed. Exam conducted with a manufacturing process engineer present. Vitals: There is no height or weight on file to calculate BMI. BP: 118/72 Patient's last menstrual period was 12/05/2023. ASSESSMENT & PLAN ICD-10-CM 1. Third trimester Z34.93 POCT urinalysis dipstick manually resulted 2. 30 weeks gestation of Z3A.30 POCT urinalysis dipstick manually resulted 3. Supraventricular tachycardia of fetus affecting management of O36.8390 US biophysical profile w non stress test 4. Polyhydramnios affecting O40.9XX0 US biophysical profile w non stress test 5. Excessive growth affecting management of in third trimester, single or unspecified fetus O36.63X0 US biophysical profile w non stress test Return OB: Patient presents today for a routine obstetrics appointment. Patient is currently 30w4d . Patient states she is doing well but has complaints of being tired due to current . Patient has verbalizes frequent movement. labor precautions was discussed/given and patient was instructed to perform kick counts three times a day. Pt to be delivered at [facility] Orders Placed This Encounter Procedures US biophysical profile w non stress test POCT urinalysis dipstick manually resulted Follow Up: Patient is to return to office in 2 week for routine OB appointment. Documented by Hayley Oneill LPN on behalf of: Ronald Fierro DO documented in this encounter [facility] 06-29-2024 History of Presen t illness Narrative Spoke with Dr. Fierro's office pertaining to follow up appointments for patient. Per Dr. Suárez's note 06/25/24, patient is to receive 2x weekly NSTs with 1x weekly DVP to evaluate heart rhythm. She is scheduled to be seen at [facility] 07/17/24 at which time she will receive a growth ultrasound and assess heart function. She will also need an EKG, this day, which has already been ordered by Dr. Geronimo Shay, peds Credit Collection Specialist. documented in this encounter [facility] 06-29-2024 Miscellaneous Notes Recvd pt phone call. Pt declined class due to time away from work with recent admit, offered video visit and declined also due to time time away from work, stressed importance of diabetic ed, encouraged to contact OB and will forward to the diabetic team and OB. documented in this encounter [facility] 06-29-2024 Telephone encounter Note Recvd pt phone call. Pt declined class due to time away from work with recent admit, offered video visit and declined also due to time time away from work, stressed importance of diabetic ed, encouraged to contact OB and will forward to the diabetic team and OB. [facility] 06-26-2024 History of Presen t illness Narrative Applied sample Freestyle Neida 3 = sensor per Dr Velasquez request. Assisted Veda with downloading Freestyle Neida 3 nasrin on phone. Inserted sensor into left posterior upper arm without difficulty. Sensor started with nasrin. Discussed sensor care and logging events in nasrin. Instructed to check fingerstick BG if low alarm alerts her. Reset alarms and assisted with connecting to [facility] practice. Verbalized understanding. Face to face time 20 minutes. Instructed patient on use of truemetrix glucometer and how to check blood sugars. Blood glucose log provided and instructed to check fasting and 1 hour after meals if Neida fails. Patient verbalized understanding. documented in this encounter [facility] 06-22-2024 Miscellaneous Notes Contract: [facility] OB resident with a question about changing medications. Secure chat sent to Dr. Browning documented in this encounter [facility] 06-22-2024 Telephone encounter Note Contract: [facility] OB resident with a question about changing medications. Secure chat sent to Dr. Browning [facility] 06-21-2024 Miscellaneous Notes Contract: [facility] calling for patient update. [facility] in labor and delivery. Sent secure chat to Dr Robin Browning. documented in this encounter [facility] 06-21-2024 Telephone encounter Note Contract: [facility] calling for patient update. [facility] in labor and delivery. Sent secure chat to Dr Robin Browning. [facility] 06-11-2024 History of Presen t illness Narrative Headache/epigastric pain/blurry vision/swelling? No Cramping/contractions? No Abnormal vaginal discharge? No Spotting/vaginal bleeding? No Loss or gush of fluid like your water may have broken? No Do you have cats at home? Yes Do you change the litter box (reason: risk of toxoplasmosis)? Someone else changes litter Genetic testing done this here or other office? No Have you been seen here at [facility] in a previous ? No Recent ER visits or hospitalizations? No Bring blood sugar log or meter with you today? (Please bring them with you for every visit at [facility]) NA Flu vaccine (Jan-May)? NA Any concerns that you would like me to mention to the provider today? No [facility] Maternal- Medicine Consult Note Reason For Consult: add on for SVT HPI: Veda Mtz is a 28 y.o. at 27w6d with Estimated Date of Delivery: 09/04/24 who presented for consultation from Ronald Covington DO regarding Chief Complaint Patient presents with Add on abnormal heart rhythm I have reviewed the pertinent available patient records including but not limited to notes, labs and images She presents today with her partner. She reports that she is doing well. She reports normal movements and she denies leakage of fluid, contractions or vaginal bleeding. She denies fever, chills, nausea, vomiting, shortness of breath, chest pain, headache, blurry vision, right upper quadrant pain or edema. Complications: - tachycardia suspected SVT with the episodes of blocked PACs - polyhydramnios - macrosomic growth pattern Denies family history of: Learning difficulties, congenital anomalies, DVT/VTE, or other inherited conditions Cell free DNA: she tells me its low risk however I cannot find the report to verify if it was done Denies smoking, alcohol or other substance use in Denies exposure to cat litter, farming animals, toxic exposure to chemical at work/environment Recent hospitalization: no Review of systems: Review of systems was noncontributory OB Hx: OB History Para Term AB Living 2 1 1 0 0 1 SAB IAB Ectopic Multiple Live Births 0 0 0 0 1 # Outcome Date GA Lbr Zeus/2nd Weight Sex Type Anes PTL Lv 2 Current 1 Term 10/11/16 40w0d F Vag-Spont EPI ÁNGELA PMH: History reviewed. No pertinent past medical history. PSHIST: History reviewed. No pertinent surgical history. Allergies: No Known Allergies Meds: No current facility-administered medications for this visit. No current outpatient medications on file. Facility-Administered Medications Ordered in Other Visits: lactated ringers infusion, 250 mL/hr, intravenous, Continuous PRN, Kendrick Mahoney MD perflutren lipid microspheres (DEFINITY) dilution injection 1.43 mg/10 mL, 2 mL, intravenous, PRN, Estefani Olea MD sodium chloride 0.9 % flush 10 mL, 10 mL, intravenous, Once PRN, Estefani Olea MD SH: Social History Socioeconomic History Marital status: Significant Other Spouse name: Not on file Number of children: Not on file Years of education: Not on file Highest education level: Not on file Occupational History Not on file Tobacco Use Smoking status: Never Smokeless tobacco: Never Vaping Use Vaping status: Never Used Substance and Sexual Activity Alcohol use: Not Currently Drug use: Never Sexual activity: Yes Partners: Male control/protection: None Other Topics Concern Not on file Social History Narrative Not on file Social Drivers of Health Financial Resource Strain: Not on file Food Insecurity: No Food Insecurity (06/11/2024) Hunger Screening Food Insecurity - Worry: Never True Food Insecurity - Inability: Never True Transportation Needs: Not on file Physical Activity: Not on file Stress: Not on file Social Connections: Not on file Interpersonal Safety: Not on file Housing Instability: Not on file Physical Exam: Vital Signs Vitals: 06/11/24 1412 BP: 119/76 BP Site: Right Arm BP Postition: Sitting BP CUFF SIZE: M (9-13 inches) Pulse: 111 Height: 160 cm (5' 3 ) Physical Exam: Gen: Not in acute distress, alert and oriented. Eyes: Pupils equal and reactive Chest: Nonlabored breathing Cardiac: Pulse was regular on vital signs assessment Abdomen: Gravid Skin/extremities: Appears intact. No visible lesions MS:no visible edema Neuro: No focal deficits Notes/Imaging/Labs reviewed Admission on 06/11/2024 Component Date Value Ref Range Status White Blood Cells 06/11/2024 8.9 4.0 - 11.0 X10E9/L Final RBC count 06/11/2024 4.30 3.80 - 5.20 X10E12/L Final Hemoglobin 06/11/2024 12.3 11.7 - 15.5 g/dL Final Hematocrit 06/11/2024 36.3 35 - 47 % Final MCV 06/11/2024 85 80 - 100 fL Final MCH 06/11/2024 28.6 27 - 34 pg Final MCHC 06/11/2024 33.8 32 - 36 g/dL Final RDW 06/11/2024 13.8 11.5 - 15.0 % Final Platelets 06/11/2024 231 150 - 450 X10E9/L Final MPV 06/11/2024 7.1 7 - 12 fL Final % neutrophils 06/11/2024 75.2 % Final % lymphocytes 06/11/2024 18.3 % Final % monocytes 06/11/2024 5.7 % Final % eosinophils 06/11/2024 0.4 % Final % Basophils 06/11/2024 0.4 % Final Neutrophils Absolute (A) 06/11/2024 6.7 (H) 1.5 - 6.6 X10E9/L Final Lymphocytes Absolute 06/11/2024 1.6 1.0 - 3.5 X10E9/L Final Monocytes Absolute 06/11/2024 0.5 0 - 0.9 X10E9/L Final Eosinophils Absolute 06/11/2024 0.0 0.0 - 0.4 X10E9/L Final Basophils Absolute 06/11/2024 0.0 0.0 - 0.2 X10E9/L Final Sodium 06/11/2024 141 134 - 146 mmol/L Final Potassium, Bld 06/11/2024 3.4 (L) 3.5 - 5.0 mmol/L Final Chloride 06/11/2024 109 98 - 109 mmol/L Final CO2 06/11/2024 20 (L) 22 - 32 mmol/L Final Anion gap 06/11/2024 12 5 - 15 mmol/L Final BUN 06/11/2024 5 5 - 23 mg/dL Final Creatinine 06/11/2024 0.44 0.40 - 1.00 mg/dL Final METHOD TRACEABLE TO IDOK STANDARD Glucose 06/11/2024 79 65 - 99 mg/dL Final Calcium 06/11/2024 8.8 8.5 - 10.5 mg/dL Final Total Protein 06/11/2024 6.2 6.0 - 8.0 g/dL Final Albumin 06/11/2024 3.6 3.2 - 5.3 g/dL Final Alkaline Phosphatase 06/11/2024 64 39 - 130 U/L Final AST 06/11/2024 18 0 - 41 U/L Final ALT 06/11/2024 10 0 - 31 U/L Final Total bilirubin 06/11/2024 0.2 (L) 0.3 - 1.2 mg/dL Final eGFR (CKD-EPI)non-race dependent 06/11/2024 >90 >59 ml/min/1.73sq.m Final Comment: Reported eGFR is based on the CKD-EPI 2020 equation that does not use a race coefficient. Vit D, 25-Hydroxy 06/11/2024 23.3 (L) 30 - 100 ng/mL Final Comment: Vitamin D status 25 [place] Vitamin D Deficiency <20 ng/mL Insufficiency 20-29 ng/mL Sufficiency 30-100 ng/mL Toxicity >100 ng/mL NOTE: A pediatric reference range has not been established by the assistant program manager of this kit. The [place] [employer] recommends a Vitamin D level of = or >20ng/mL in infants and children. Magnesium 06/11/2024 1.7 (L) 1.8 - 2.6 mg/dL Final Abstract on 06/11/2024 Component Date Value Ref Range Status Thyroid Stimulating (3Rd Generatio* 06/10/2024 1.480 Final Syphilis 02/14/2024 non reactive Final Rubella immune IgG 02/14/2024 immune Final Abo/Rh(D) 02/14/2024 O Positive Final Antibody Screen 02/14/2024 negative Final Methadone 02/14/2024 negative Final Opiates 02/14/2024 negative Final Amphetamine/Methamphetamine 02/14/2024 negative Final Cocaine Metabolite 02/14/2024 negative Final Phencyclidine 02/14/2024 negative Final Thc Marijuana, Urine 02/14/2024 negative Final Oxycodone 02/14/2024 negative Final Barbiturates 02/14/2024 negative Final Benzodiazepines 02/14/2024 negative Final Hemoglobin A1C 02/14/2024 4.8 4.0 - 6.0 % Final HIV 1&2 AB/AG 02/14/2024 non reactive Final Hepatitis B Surface Antigen 02/14/2024 negative Final Ultrasound findings Pertinent Ultrasound findings are see report Assessment/Plan 28 y.o. @ at 27w6d with Estimated Date of Delivery: 09/04/24 here for consultation regardin. 27 weeks gestation of 2. Supraventricular tachycardia of fetus affecting management of 3. Polyhydramnios affecting 4. Excessive growth affecting management of in second trimester, single or unspecified fetus Reviewed with the patient that heart rate is going up to the 250s concerning for supraventricular tachycardia Areas of blocked PACs also seen No sonographic evidence of hydrops Mild polyhydramnios on ultrasound today with a macrosomic growth pattern. Causes of polyhydramnios reviewed in detail the patient is not interested in further genetic testing. I do not have her 1 hour Glucola screen to verify if she pass it or not Risks with the polyhydramnios and macrosomia growth reviewed Discussed with the patient that we will await pediatric cardiology recommendations regarding antiarrhythmic agents for the tachycardia Recommendations -admit - cEFM - obtain baseline maternal EKG - CBC, CMP, magnesium, phosphorus, vitamin-D and TSH - pediatric cardiology consult Dr. Shay notified - MFM to continue to follow patient - Ensure the patient is screened for diabetes Further recommendations to be made pending clinical course and hospital stay Report given to labor and delivery team And concerns the patient had were answered Plan reviewed with patient. She vocalized understanding all questions answered. Thank you for allowing me to participate in her care. Please contact me if you have any concerns. Berto Suárez MD, FACOG (she/hers) Maternal- Medicine [facility] [address] [place] [address] This document was created with [employer] technology. Though I make every effort to review the dictation as it is transcribed, on occasion the spoken word can be misinterpreted by the technology leading to inappropriate words, phrases, or sentences. This note is addressed to the requesting provider as a consultation for clinical guidance. Specific medical abbreviations are occasionally used and those are generally approved by the [place]?Board of?Obstetrics and?Gynecology?as well as?Dylan s abbreviations. The above plan of care was based solely on the diagnoses for which a consultation was requested. ?More frequent testing may be indicated based on her other medical/obstetrical conditions. The management of other or medical conditions is beyond the scope of requested consultation and will continue to be followed by the primary child attendant or primary care provider. Note to patient: The 21st Century Cures Act makes medical notes like these available to patients in the interest of transparency. However, be advised this is a medical document. It is intended as peer to peer communication. It is written in medical language and may contain abbreviations or verbiage that are unfamiliar. It may appear blunt or direct. Medical documents are intended to carry relevant information, facts as evident, and the clinical opinion of the practitioner. documented in this encounter [facility] 06-10-2024 History of Presen t illness Narrative Reason for Appointment: Patient ID: Veda Mtz is a 28 y.o. female who presents for Routine Visit Patient presents today for Return OB appointment. MEDICATIONS Current Outpatient Medications Medication Instructions Vit-Fe Fumarate-FA (PNV Plus Multivitamin) 27-1 MG tablet 1 tablet, Oral, Daily Vit-Fe Fumarate-FA ( Vitamins) 28-0.8 MG tablet 1 tablet, Oral, Daily ALLERGIES No Known Allergies PROBLEMS Active Ambulatory Problems Diagnosis Date Noted No Active Ambulatory Problems Resolved Ambulatory Problems Diagnosis Date Noted No Resolved Ambulatory Problems No Additional Past Medical History HISTORY PAST MEDICAL HISTORY SOCIAL HISTORY No past medical history on file. Social History Tobacco Use Smoking status: Not on file Smokeless tobacco: Not on file Substance Use Topics Alcohol use: Not on file Drug use: Not on file FAMILY HISTORY No family history on file. SURGICAL HISTORY No past surgical history on file. REVIEW OF SYSTEMS Review of Systems: Review of Systems Constitutional: Negative. HENT: Negative. Eyes: Negative. Respiratory: Negative. Cardiovascular: Negative. Gastrointestinal: Negative. Genitourinary: Negative. Musculoskeletal: Negative. Skin: Negative. Neurological: Negative. All other systems reviewed and are negative. Hematological: Negative. Endocrine: Negative. Allergic/Immunologic: Negative. OBJECTIVE Objective: Physical Exam Constitutional: Appearance: Normal appearance. She is well-developed. Cardiovascular: Rate and Rhythm: Normal rate and [...] nursing note reviewed. Exam conducted with a manufacturing process engineer present. Vitals: There is no height or weight on file to calculate BMI. BP: 114/76 Patient's last menstrual period was 12/05/2023. ASSESSMENT & PLAN ICD-10-CM 1. Second trimester Z34.92 POCT urinalysis dipstick manually resulted 2. 27 weeks gestation of Z3A.27 3. tachycardia affecting management of mother O36.8390 Return OB: Patient presents today for a routine obstetrics appointment. Patient is currently 27w5d . Patient states she is doing well but has complaints of being tired due to current . Patient has verbalizes frequent movement. labor precautions was discussed/given and patient was instructed to perform kick counts three times a day. Pt has numbness in hands- advised to get wrist wraps. tachycardia noted - pt being sent to [facility] for monitoring. Orders Placed This Encounter Procedures POCT urinalysis dipstick manually resulted Follow Up: Patient is to return to office in 2 week for routine OB appointment. Documented by Hayley Oneill LPN on behalf of: Ronald Fierro DO documented in this encounter [facility] 04-15-2024 History of Presen t illness Narrative [...] nursing note reviewed. Exam conducted with a manufacturing process engineer present. Vitals: There is no height or [...] obtained without difficulty and patient was given [facility] order to have obtained. Orders Placed This Encounter Procedures US OB 14+ weeks anatomy scan CHLAMYDIA TRACHOMATIS (GENITO/STI) Neisseria gonorrhea DNA probe, direct Alpha fetoprotein, maternal POCT urinalysis dipstick manually resulted Follow Up: Patient is to return to our office in 4 weeks for routine OB appointment Documented by Monse Arias LPN on behalf of: EMILY Villalobos documented in this encounter [facility] 04-14-2024 Miscellaneous Notes set up establish care with provider of choice LM on VM [facility] Telephone encounter Note set up establish care [facility]-14[facility]2024 [facility] Evaluation note Diagnosis Onset Date Resolution Influenza A acute April 04, 2024 10:32am [facility] Work Phone: 1(627) 696-115801-13-2025 History of Present illness Narrative* Ijeoma Carrera, MIKIE - 03/16/2024 3:50 PM EST Reason for Appointment: Patient ID: Veda Mtz [...] meat, and stay away from [facility]. Patient has been consulted regarding any further do's and don'tsof . Patient voiced understanding and all questions and concerns were answered. Follow Up: Patient is to return in 4 weeks for routine OB appointment. Documented by Ijeoma Carrera LPN on behalf of: Ronald Fierro DO [id number] History of Present illness Narrative* Annie Keith MA - 02/11/2024 9:00 AM EST Reason for Appointment: Patient ID: Veda Mtz [...] meat, and stay away from [facility]. Patient has also been advised to [...] by: Annie Keith MA documented in this encounterC[facility] [id number] Miscellaneous Notes* Telephone Encounter - Lupe Stacy - 09/10/2023 10:02 AM EDT Esther 10/31 appt * Telephone Encounter - Lupe Stacy - 09/10/2023 10:02 AM EDT LM on VM * Telephone Encounter - Lupe Regis - 09/10/2023 10:02 AM EDT Rescheduled [facility]* Telephone Encounter - Lupe Regis - 09/10/2023 10:02 AM EDT Reschedule 10/31 appt [facility] Telephone encounter Note* Telephone Encounter - [facility] Ignacioaliciaisreal - 09/10/2023 10:02 AM EDT LM on VM [facility]-09[facility]2024 Telephone encounter Note* Telephone Encounter - Lupe Ignacioaliciaisreal - 09/10/2023 10:02 AM EDT Rescheduled [facility] Evaluation note* Encounter Date Diagnosis Assessment Notes [...] POSITIVE education handout discharge instructions. given. [employer] Other Evaluation note* Diagnosis Missed menses , unspecified gestational age Encounter for supervision of normal first in first trimester 10 weeks gestation of [facility] Diagnosis Second trimester state, incidental 15 weeks gestation of documented in this encounter [facility] Healthcare[facility]* Diagnosis Well woman exam with routine gynecological exam Routine gynecological examination Second trimester state, incidental Vaginal discharge Leukorrhea, not specified as infective STD exposure 19 weeks gestation of Screening, , for anatomic survey Encounter for anatomic survey documented in this encounter [facility] HealthcareEvaluation note* Diagnosis Second trimester state, incidental 27 weeks gestation of tachycardia affecting management of mother Abnormality in heart rate/rhythm, unspecified as to episode of care or not applicable documented in this encounter [facility] HealthcareEvaluation note* Diagnosis 27 weeks gestation of - Primary Supraventricular tachycardia of fetus affecting management of Polyhydramnios affecting Excessive growth affecting management of in second trimester, single or unspecified fetus [facility] Diagnosis Supraventricular tachycardia of fetus affecting management of - Primary Polyhydramnios affecting [facility]* Diagnosis Diet controlled gestational diabetes mellitus (GDM) in third trimester- Primary [facility]* Diagnosis Diet controlled gestational diabetes mellitus (GDM) in third trimester- Primary [facility] Diagnosis Third trimester state, incidental 30 weeks gestation of Supraventricular tachycardia of fetus affecting management of Polyhydramnios affecting Excessive growth affecting management of in third trimester, single or unspecified fetus documented in this encounter [facility] HealthcareEvaluation note* Diagnosis Diet controlled gestational diabetes mellitus (GDM) in third trimester documented in this encounter [facility]* Diagnosis Polyhydramnios affecting [O40.9XX0]- Primary documented in this encounter [facility]* Diagnosis Diet controlled gestational diabetes mellitus (GDM) in third trimester [facility] Diagnosis Supraventricular tachycardia of fetus affecting management of - Primary Intrauterine Excessive growth affecting management of in second trimester, single or unspecified fetus Polyhydramnios affecting documented in this encounter [facility] filedocumented in this encounter [facility] filedocumented in this encounter [facility] filedocumented in this encounter [facility] on filedocumented in this encounter [facility]* Attachments The following attachments cannot be sent through Care Everywhere. * Preeclampsia ([place]) documented in [facility] System[facility]ructionsNot on file documented in this encounterProMedica [facility] SystemInstructionsNot on file documented in this encounterPro[facility]ica [facility] SystemInstructionsNot on file documented in this encounterPro[facility] SystemInstructionsNot on file documented in this encounterPro[facility] SystemInstructionsNot on file documented in this encounterPro[facility]ica Health SystemInstructionsNot on file documented in this encounterProMedica Health SystemInstructionsNot on file documented in this encounterProMedica Health SystemInstructionsNot on file documented in this encounterProMedica Health SystemInstructionsNot on file documented in this [facility]Pro[facility] Summary Purpose Family History Relationship [...] and content) DATE CREATED [facility] DATE CREATED AUTHOR AUTHOR'S ORGANIZ ATION [facility]/2024 [facility] DATE CREATED AUTHOR AUTHOR'S ORGANIZ ATION 07/12/2024 [facility] REASON FOR VISIT (unrecogniz ed section and content) Reason Comments Amenorrhea Reason Comments Routine Visit Reason Comments Routine Visit Well Women Visit STI Screening Reason Comments Add on abnormal heart rhythm Reason Onset Date Comments patient update 06/21/2024 Reason Onset Date Comments Medication Problem 06/22/2024 Reason Comments Gestational Diabetes Specialty Diagnoses / Procedures Referred By Contac t Referred To Contact Maternal and Medicine Diagnoses Diet controlled gestational diabetes mellitus (GDM) in third trimester Berot Suárez MD [address], [address] [place] [address] Phone: tel: fax: Maternal- Medicine at [facility] [address] [place] [address] Phone: tel: fax: Referral ID Status Reason Start Date Expiration Date Visits Requested Visits Authorized [id number] Pending Review Specialty Services Required 06/26/2024 06/26/2025 1 1 Reason Comments Initial Visit Care Teams (unrecognized sec tion and content) Trial Examiner Relationship Specialty Start Date End Date Terrence Mcintyre MD [address], [place] [address] PCP - General Family Medicine 02/11/24 Trial Examiner Relationship Specialty Start Date End Date Terrence Mcintyre MD [address], [place] [address] PCP - General Family Medicine 02/11/24 Trial Examiner Relationship Specialty Start Date End Date Terrence Mcintyre MD [address], [place] [address] PCP - General Family Medicine 02/11/24 Trial Examiner Relationship Specialty Start Date End Date Terrence Mcintyre MD [address], [place] [address] PCP - General Family Medicine 02/11/24 Team Status: Active Member Role Status Dates Terrence Mcintyre DO Primary Care Provider Active Team Status: Inactive Member Role Status Dates Terrence Mcintyre DO Primary Care Provider Active Start: April 04, 2024 End: April 04, 2024 Michell German APRN Attending Provider Active Start: April 04, 2024 End: April 04, 2024 Trial Examiner Relationship Specialty Start Date End Date Chavez Queen DUCK BILL OPERATOR-INTERNET MARKETING ANALYST [address] [place] [address] PCP - General Internal Medicine 09/03/23 Trial Examiner Relationship Specialty Start Date End Date Terrence Mcintyre MD [address] [place] [address] PCP - General Family Medicine 02/11/24 Trial Examiner Relationship Specialty Start Date End Date Chavez Queen DUCK BILL OPERATOR-INTERNET MARKETING ANALYST [address] [place] [address] PCP - General Internal Medicine 09/03/23 Trial Examiner Relationship Specialty Start Date End Date Terrence Mcintyre MD PCP - General Family Medicine 02/11/24 Trial Examiner Relationship Specialty Start Date End Date Terrence Mcintyre MD PCP - General Family Medicine 02/11/24 Trial Examiner Relationship Specialty Start Date End Date Terrence Mcintyre MD PCP - General Family Medicine 02/11/24 Trial Examiner Relationship Specialty Start Date End Date Chavez Queen, DUCK BILL OPERATOR-INTERNET MARKETING ANALYST [address] [place] [address] PCP - General Internal Medicine 09/03/23 Trial Examiner Relationship Specialty Start Date End Date Chavez Queen DUCK BILL OPERATOR-INTERNET MARKETING ANALYST [address] [place] [address] PCP - General Internal Medicine 09/03/23 Trial Examiner Relationship Specialty Start Date End Date Chavez Queen DUCK BILL OPERATOR-INTERNET MARKETING ANALYST [address] [place] [address] PCP - General Internal Medicine 09/03/23 Trial Examiner Relationship Specialty Start Date End Date Chavez Queen DUCK BILL OPERATORINTERNET MARKETING ANALYST [address] [place] [address] PCP - General Internal Medicine 09/03/23 Trial Examiner Relationship Specialty Start Date End Date Chavez Queen DUCK BILL OPERATORINTERNET MARKETING ANALYST [address] [place] [address] PCP - General Internal Medicine 09/03/23 Trial Examiner Relationship Specialty Start Date End Date Chavez Queen DUCK BILL OPERATORINTERNET MARKETING ANALYST [address] [place] [address] PCP - General Internal Medicine 09/03/23 Trial Examiner Relationship Specialty Start Date End Date Chavez Queen DUCK BILL OPERATOR-INTERNET MARKETING ANALYST [address] [place] [address] PCP - General Internal Medicine 09/03/23 Trial Examiner Relationship Specialty Start Date End Date Chavez Queen DUCK BILL OPERATORINTERNET MARKETING ANALYST [address] [place] [address] PCP - General Internal Medicine 09/03/23 Trial Examiner Relationship Specialty Start Date End Date Terrence Mcintyre MD PCP - General Family Medicine 02/11/24 Trial Examiner Relationship Specialty Start Date End Date Terrence Mcintyre MD PCP - General Family Medicine 02/11/24 Trial Examiner Relationship Specialty Start Date End Date Karyna Chavez Lares [facility] [address] [place] [address] PCP - General Internal Medicine 09/03/23 Trial Examiner Relationship Specialty Start Date End Date Chavez Queen [facility] [address] [place] [address] PCP - General Internal Medicine 09/03/23 Trial Examiner Relationship Specialty Start Date End Date Chavez Queen [facility] [address] [place] [address] PCP - General Internal Medicine 09/03/23 Goals [...] BE BASED ON THE PRIMARY CLINICAL RECORDS. [facility]. provides no warranty or guarantee of the accuracy or completeness of information in this document.
[2024-07-13 18:34] VITALS: BP 92/52; PULSE 86
== END 2024-07-13 18:55 | disposition home or self-care (01) ==
LOC: FBCO 18:06 → FBC 18:21
PROVIDERS: PCP Family Medicine; Visit Provider Obstetrics & Gynecology
DX: O26.893 Other specified pregnancy related conditions, third trimester (principal); Z3A.32 32 weeks gestation of pregnancy

== ENCOUNTER 2024-07-16 19:08 | Outpatient (OUT) | payer OTHER, SELFPAY ==
--- NOTE | 2024-07-16 19:10 | US_ITS ---
[address] [address] Patient Name: NISHA FAJARDO MRN: [id number] date: 1995 Sex: F Assigned Patient Location: [facility] Current Patient Location: Accession/Order Number: [id number] Exam Date: 07/17/2024 06:44 Report Date: 07/17/2024 06:48 At the request of: PHIL BURROUGHS DO Procedure: US OB BPP w non-stress US OB BPP w non-stress 07/16/2024 7:50 PM SIGNS AND SYMPTOMS: ^12/05/2023 ^Polyhydraminos, supraventricular tachycarida PROTOCOL: Grayscale and color Doppler sonographic images of the pelvis were obtained COMPARISON: 07/09/2024 FINDINGS: The accounts payable assistant reports a BPP of 8 out of 8. SKYLAR is normal at 25.2 cm. heart rate 128 bpm. US/US OB BPP w non-stress Impression: BPP 8 out of 8. Impression dictated by: Jorge Lam M.D. 07/17/2024 6:48 AM Dictation Location: [employer] Electronically authenticated by: [id number] Y Date: 07/17/2024 06:48
--- OUTSIDE RECORDS SUMMARY | 2024-07-16 19:17 | XMS_ITS | CCD ---
Author Organization [facility] CliniSymo Care Team Providers Care Metal Hanging Supervisor Name Role Phone HEIDY, DR MECHELLE Serrano Attending Unavailable HEIDY, DR MECHELLE Serrano Consulting Unavailable HEIDY, DR MECHELLE Serrano Admitting Unavailable Naomy Marianna Unavailable Terrence Mcintyre MD Primary Care Provider Karyna [facility] [place] Primary Care Provider Terrence Mcintyre MD Primary Care Provider Karyna [facility], [facility] Primary Care Provider CHELSEA CARSON Attending Unavailable [...] mg / cholecalciferol 200 unt oral tablet (11 sources) Vitamin D Start: 06-28-2024 take 1 tablet by mouth in the morning, then take 1 tablet by mouth once at mealtime Calcium Carb-Cholecalciferol (Oyster Shell Calcium w/D) 500-5 MG-MCG tablet Take 1 tablet by mouth in the morning and 1 tablet in the evening. Take with meals. 06/28/2024 Active Start: 06-28-2024 take 1 tablet by nikolay th once in the morning calcium carbonate-vitamin D3 (OSCAL 500 + D) 500 mg (1,250 mg) - 200 units per tablet Take 1 tablet by mouth in the morning and 1 tablet in the evening. Take with meals. 180 tablet 3 06/28/2024 Active digoxin 0.25 mg oral tablet (11 sources) Cardiac Glycoside Start: 06-28-2024 take 1 tablet by mouth in the morning digoxin (Lanoxin) 250 MCG tab;et Take 250 mcg by mouth in the morning and 250 mcg in the evening. 06/28/2024 Active Start: 06-28-2024 take 1 tablet by mouth once di goxin (LANOXIN) 250 mcg tablet Take 1 tablet (250 mcg total) by mouth every 12 (twelve) hours. 60 tablet 3 06/28/2024 Active isopropyl alcohol 0.7 ml/ml medicated pad (7 sources) Start: 06-26-2024 End: 07-06-2024 alcohol swabs pads, medicated Indications: Diet controlled gestational diabetes mellitus (GDM) in third trimester To use when performing a fingerstick 200 each 07/06/2024 Active magnesium oxide 400 mg oral tablet (11 sources) Start: 06-28-2024 take 1 tablet by mouth in the morning magnesium oxide (Mag-Ox) 400 MG tablet Take 400 mg by mouth in the morning and 400 mg in the evening. 06/28/2024 Active omeprazole 20 mg delayed release oral capsule (3 sources) Proton Pump Inhibitor Start: 07-07-2024 End: 08-06-2024 take 1 capsule by mouth before mealtime omeprazole (PriLOSEC) [address] capsule Indications: Gastroesophageal Reflux Disease , Heartburn Take 1 capsule (20 mg) by mouth in the morning. Take before meals. Do not crush or chew. 30 capsule 3 07/07/2024 08/06/2024 Active ondansetron 4 mg oral tablet (18 [...] 10 5 April 04, 2024 12:00am Pnv,Calcium 09-Rioa-Eoorl Acid ( Vitamin Plus Low Iron) 27 mg iron- 1 mg tablet (1 source) Start: 04-04-2024 take 1 tablet by mouth once daily Pnv,Calcium 56-Vdus-Djqbm Acid ( Vitamin Plus Low Iron) 27 mg iron- 1 mg tablet Active 1 TAB PO Daily April 04, 2024 12:00am potassium chloride 10 meq extended release oral tablet (11 sources) Start: 06-28-2024 take 5 tablets by mouth in the morning potassium chloride CR (Klor-Con) 10 MEQ ER tablet Take 50 mEq by mouth in the morning. 06/28/2024 Active vu092-ztxj-epbin acid ( 19) 29 mg iron- 1 mg tablet,chewable (15 sources) bd426-okcg-ryphx acid ( 19) 29 mg iron- 1 mg tablet,chewable Chew 1 tablet and swallow in the morning. Active gy820-q enrique-folic acid ( 19) 29 mg iron- 1 mg tablet,chewable Chew 1 tablet and swallow in the morning. Suspended Vit-Fe Fumarate-FA (PNV Plus Multivitamin) 27-1 MG tablet (20 sources) Start: 04-23-2024 End: 04-23-2025 take 1 [...] Vit-Fe Fumarate-FA ( Plus) 27-1 MG tablet (5 sources) Vit-Fe Fumarate-FA ( Plus) 27-1 MG tablet Active Vit-Fe Fumarate-FA ( Vitamins) 28-0.8 MG tablet (10 sources) Start: 05-11-2024 End: 05-11-2025 take 1 tablet by mouth once daily Vit-Fe Fumarate-FA ( Vitamins) 28-0.8 MG tablet Indications: Second trimester Take 1 tablet by mouth Daily 30 tablet 11 05/11/2024 05/11/2025 Active sotalol hydrochloride 160 mg oral tablet (11 sources) Antiarrhythmic Start: 06-28-2024 take 1 tablet by mouth in the morning sotalol (Betapace) 160 MG tablet Take 160 mg by mouth in the morning and 160 mg in the evening. 06/28/2024 Active Start: 06-28-2024 take 1 tablet by mouth once so taloL (BETAPACE) 160 mg tablet Take 1 tablet (160 mg total) by mouth every 12 (twelve) hours. 60 tablet 3 06/28/2024 Active Completed/Discontinued Medications Medication Drug Class(es) Dates Sig (Normalized) Sig (Original) Ethinyl Estradiol / Ferrous fumarate / Norethindrone (11 sources) Estrogen Start: 03-05-202203/23, , 1 mg-20 mcg (21)/75 mg (7) per tablet TAKE 1 TABLET DAILY 84 tablet 03/05/2022 Suspended Start: 03-05-202203/23, , 1 mg-20 mcg (21)/75 mg (7) per [...] 06-11-2024 Episodic Other aftercare (1 source) Other terminal worker (current) drug therapy; Translations: [Other terminal worker (current) drug therapy] Onset: 06-11-2024 Episodic Other [...] [30 weeks gestation of ] 06-30-2024 Episodic Residual codes; unclassified (2 sources) Gestation period, 32 weeks; Translations: [32 weeks gestation of ] 07-15-2024 Episodic Unclassified (3 sources) CONTACT W/AND (SUSP) [...] Test Name Value Interpretation Reference Range Facility Urinalysis macro (dipstick) panel (U)on 07-15-2024 Bilirubin, UA Negative Negative - 4(70) +++ mg/dL [facility] Blood, UA Negative Negative - 50 Jordan/mcL [facility] Clarity, UA Clear [facility] Color, UA Yellow [facility] Glucose, UA Negative Negative - 1999(110) ++++ mg/dL [facility] Interpretation and review of laboratory results Normal [facility] Ketones, UA Negative Negative - 160(16) ++++ mg/dL [facility] Leukocytes, UA Negative Negative - 500+++ Leanne/mcL [facility] Nitrite, UA Negative Negative - Positive [facility] pH, UA 6 5 - 9 [facility] Protein, UA Negative Negative - 1999(20) ++++ mg/dL [facility] Healthcare Spec Grav, UA 1.02 1 - 1.03 [facility] care Urobilinogen, UA 0.2 0.2 - 12 mg/dL [facility] Glucose random or fasting- P OCTOrdered By: Ravinder Burnett on 07-06-2024 External Glucose Fasting Or Random (Fbs) 91 [facility] Urinalysis macro (dipstick) panel (U)on 06-30-2024 Bilirubin, UA Negative Negative - 4(70) +++ mg/dL [facility] Blood, UA Negative Negative - 50 Jordan/mcL [facility] Clarity, UA Clear [facility] Healthma re Color, UA Yellow [facility] Glucose, UA Negative Negative - 1999(110) ++++ mg/dL [facility] Interpretation and review of laboratory results Abnormal [facility] Ketones, UA Positive Negative - 160(16) ++++ mg/dL [facility] Leukocytes, UA Negative Negative - 500+++ Leanne/mcL [facility] Nitrite, UA Negative Negative - Positive [facility] pH, UA 6 5 - 9 [facility] Protein, UA Negative Negative - 1999(20) ++++ mg/dL [facility] Spec Grav, UA 1.025 1 - 1.03 [facility] Urobilinogen, UA 1.0 0.2 - 12 mg/dL [facility] BEDSIDE GLUCOSEon 06-28-2024 Glucose [Mass/Vol] 124 mg/dL High 65-99 [facility] Comment on above: Performed By: #### C ROSA MAGALLON, 84496-0, 02722-5, 2777-1, 70257- 5 #### [facility] ([id number]) [address], [address] [place] [address] Glucose [Mass/Vol] 92 mg/dL Normal 65-99 [facility] Comment on above: Performed By: #### C ROSA MAGALLON, 93938-6, 23254-4, 2777-1, 52270- 5 #### [facility] ([id number]) [address], [address] [place] [address] COMPREHENSIVE METABOLIC PANE [facility] 06-28-2024 Albumin [Mass/Vol] 3.3 g/dL Normal 3.2-5.3 [facility] Comment on above: Performed By: #### C BCA, CMP, 95469-1, 49626-2, 2777-1, 66792- 5 #### [facility] ([id number]) [address], [address] [place] [address] ALP [Catalytic activity/Vol] 74 U/L Normal 39-130 [facility] Comment on above: Performed By: #### C BCA, CMP, 49533-9, 88239-0, 2777-1, 62742- 5 #### [facility] ([id number]) [address], [address] [place] [address] ALT [Catalytic activity/Vol] 8 U/L Normal <=31 [facility] Comment on above: Performed By: #### C BCA, CMP, 34575-2, 71353-1, 2777-1, 78889- 5 #### [facility] ([id number]) [address], [address] [place] [address] Anion gap [Moles/Vol] 12 mmol/L Normal 5-15 [facility] Comment on above: Performed By: #### C BCA, CMP, 88325-0, 81448-6, 2777-1, 53881- 5 #### [facility] ([id number]) [address], [address] [place] [address] AST [Catalytic activity/Vol] 13 U/L Normal <=41 [facility] Comment on above: Performed By: #### C BCA, CMP, 00992-0, 15193-7, 2777-1, 07124- 5 #### [facility] ([id number]) [address], [address] [place] [address] Bilirubin [Mass/Vol] 0.4 mg/dL Normal 0.3-1.2 [facility] Comment on above: Performed By: #### C BCA, CMP, 46323-7, 91725-1, 2777-1, 27353- 5 #### [facility] ([id number]) [address], [address] [place] [address] Calcium [Mass/Vol] 9.0 mg/dL Normal 8.5-10.5 [facility] Comment on above: Performed By: #### C BCA, CMP, 20775-0, 82051-6, 2777-1, 42245- 5 #### [facility] ([id number]) [address], [address] [place] [address] Chloride [Moles/Vol] 106 mmol/L Normal 98-109 [facility] Comment on above: Performed By: #### C BCA, CMP, 04188-9, 82245-7, 2777-1, 66366- 5 #### [facility] ([id number]) [address], [address] [place] [address] CO2 [Moles/Vol] 21 mmol/L Low 22-32 [facility] Comment on above: Performed By: #### C BCA, CMP, 76084-4, 61439-9, 2777-1, 50273- 5 #### [facility] ([id number]) [address], [address] [place] [address] Creatinine [Mass/Vol] 0.35 mg/dL Low 0.40-1.00 [facility] Comment on above: Result Comment: METH OD TRACEABLE TO IDMS STANDARD Performed By: #### C BCA, CMP, 97097-6, 81520-6, 2777-1, 20374-3 #### [facility] ([id number]) [address], [address] [place] [address] EGFR (CKD-EPI) NON-RACE DEPENDENT >^90 Normal >=60 [facility] Comment on above: Result Comment: Repo rted eGFR is based on the CKD-EPI 2020 equation that does not use a race coefficient. Performed By: #### C BCA, CMP, 15696-3, 32636-2, 2777-1, 39766-0 #### [facility] ([id number]) [address], [address] [place] [address] Glucose [Mass/Vol] 94 mg/dL Normal 65-99 [facility] Comment on above: Performed By: #### C BCA, CMP, 04200-1, 65191-4, 2777-1, 89445- 5 #### [facility] ([id number]) [address], [address] [place] [address] Potassium [Moles/Vol] 3.6 mmol/L Normal 3.5-5.0 [facility] Comment on above: Performed By: #### C BCA, CMP, 56474-1, 89144-0, 2777-1, 47382- 5 #### [facility] ([id number]) [address], [address] [place] [address] Protein [Mass/Vol] 5.7 g/dL Low 6.0-8.0 [facility] Comment on above: Performed By: #### C BCA, CMP, 18397-8, 83137-9, 2777-1, 21885- 5 #### [facility] ([id number]) [address], [address] [place] [address] Sodium [Moles/Vol] 139 mmol/L Normal 134-146 [facility] Comment on above: Performed By: #### C BCA, CMP, 40160-0, 72919-8, 2777-1, 98825- 5 #### [facility] ([id number]) [address], [address] [place] [address] Urea nitrogen [Mass/Vol] 6 mg/dL Normal 5-23 [facility] Comment on above: Performed By: #### C BCA, CMP, 57039-2, 14621-7, 2777-1, 19451- 5 #### [facility] ([id number]) [address], [address] [place] [address] COMPREHENSIVE METABOLIC PANE Ab 06-27-2024 Albumin [Mass/Vol] 3.3 g/dL Normal 3.2-5.3 [facility] Comment on above: Performed By: #### C BCA, CMP, 72005-0, 01352-0, 2777-1, 10325- 5 #### [facility] ([id number]) [address], [address] [place] [address] ALP [Catalytic activity/Vol] 71 U/L Normal 39-130 [facility] Comment on above: Performed By: #### C BCA, CMP, 38195-6, 06825-3, 2777-1, 47823- 5 #### [facility] ([id number]) [address], [address] [place] [address] ALT [Catalytic activity/Vol] 7 U/L Normal 0-31 [facility] Comment on above: Performed By: #### C BCA, CMP, 29763-4, 35885-3, 2777-1, 67009- 5 #### [facility] ([id number]) [address], [address] [place] [address] Anion gap [Moles/Vol] 10 mmol/L Normal 5-15 [facility] Comment on above: Performed By: #### C BCA, CMP, 64339-6, 08643-3, 2777-1, 19879- 5 #### [facility] ([id number]) [address], [address] [place] [address] AST [Catalytic activity/Vol] 11 U/L Normal 0-41 [facility] Comment on above: Performed By: #### C BCA, CMP, 84403-3, 01712-4, 2777-1, 21065- 5 #### [facility] ([id number]) [address], [address] [place] [address] Bilirubin [Mass/Vol] 0.4 mg/dL Normal 0.3-1.2 [facility] Comment on above: Performed By: #### C BCA, CMP, 62682-6, 85707-5, 2777-1, 14755- 5 #### [facility] ([id number]) [address], [address] [place] [address] Calcium [Mass/Vol] 9.0 mg/dL Normal 8.5-10.5 [facility] Comment on above: Performed By: #### C BCA, CMP, 84504-1, 03100-4, 2777-1, 31716- 5 #### [facility] ([id number]) [address], [address] [place] [address] Chloride [Moles/Vol] 105 mmol/L Normal 98-109 [facility] Comment on above: Performed By: #### C BCA, CMP, 81469-2, 31837-0, 2777-1, 66429- 5 #### [facility] ([id number]) [address], [address] [place] [address] CO2 [Moles/Vol] 22 mmol/L Normal 22-32 [facility] Comment on above: Performed By: #### C BCA, CMP, 61163-7, 64951-5, 2777-1, 05976- 5 #### [facility] ([id number]) [address], [address] [place] [address] Creatinine [Mass/Vol] 0.30 mg/dL Low 0.40-1.00 [facility] Comment on above: Result Comment: METH OD TRACEABLE TO IDMS STANDARD Performed By: #### C BCA, CMP, 84135-1, 12522-0, 2777-1, 52900-5 #### [facility] ([id number]) [address], [address] [place] [address] eGFR (CKD-EPI) NON-RACE DEPENDENT >90 Normal >59 [facility] Comment on above: Result Comment: Reported eGFR is based on the CKD-EPI 2020 equation that does not use a race coefficient. Performed By: #### C BCA, CMP, 41535-9, 48069-6, 2777-1, 07072-9 #### [facility] ([id number]) [address], [address] [place] [address] Glucose [Mass/Vol] 104 mg/dL High 65-99 [facility] Comment on above: Performed By: #### C BCA, CMP, 12300-9, 61585-0, 2777-1, 68848- 5 #### [facility] ([id number]) [address], [address] [place] [address] Potassium [Moles/Vol] 3.5 mmol/L Normal 3.5-5.0 [facility] Comment on above: Performed By: #### C BCA, CMP, 16077-6, 05362-5, 2777-1, 66994- 5 #### [facility] ([id number]) [address], [address] [place] [address] Protein [Mass/Vol] 5.6 g/dL Low 6.0-8.0 [facility] Comment on above: Performed By: #### C BCA, CMP, 92660-5, 38409-3, 2777-1, 81107- 5 #### [facility] ([id number]) [address], [address] [place] [address] Sodium [Moles/Vol] 137 mmol/L Normal 134-146 [facility] Comment on above: Performed By: #### C BCA, CMP, 44454-0, 03144-0, 2777-1, 79009- 5 #### [facility] ([id number]) [address], [address] [place] [address] Urea nitrogen [Mass/Vol] 6 mg/dL Normal 5-23 [facility] Comment on above: Performed By: #### C BCA, CMP, 52920-4, 40293-8, 2777-1, 79313- 5 #### [facility] ([id number]) [address], [address] [place] [address] Glucose Glucometer (BldC) [M ass/Vol]on 06-27-2024 Glucose [Mass/Vol] 102 mg/dL High 65-99 [facility] Glucose [Mass/Vol] 115 mg/dL High 65-99 [facility] Glucose [Mass/Vol] 183 mg/dL High 65-99 [facility] Glucose [Mass/Vol] 156 mg/dL High 65-99 [facility] Glucose [Mass/Vol] 108 mg/dL High 65-99 [facility] MAGNESIUMon 06-27-2024 Magnesium [Mass/Vol] 1.5 mg/dL Low 1.8-2.6 [facility] Comment on above: Performed By: #### C BCA, CMP, 13995-8, 83805-6, 2777-1, 81494- 5 #### [facility] ([id number]) [address], [address] [place] [address] COMPREHENSIVE METABOLIC PANE Ab 06-26-2024 Albumin [Mass/Vol] 3.4 g/dL Normal 3.2-5.3 [facility] Comment on above: Performed By: #### C BCA, CMP, 68004-9, 66147-5, 2777-1, 00832- 5 #### [facility] ([id number]) [address], [address] [place] [address] ALP [Catalytic activity/Vol] 70 U/L Normal 39-130 [facility] Comment on above: Performed By: #### C BCA, CMP, 97773-0, 54905-9, 2777-1, 63053- 5 #### [facility] ([id number]) [address], [address] [place] [address] ALT [Catalytic activity/Vol] 8 U/L Normal 0-31 [facility] Comment on above: Performed By: #### C BCA, CMP, 03278-1, 01156-6, 2777-1, 06778- 5 #### [facility] ([id number]) [address], [address] [place] [address] Anion gap [Moles/Vol] 10 mmol/L Normal 5-15 [facility] Comment on above: Performed By: #### C BCA, CMP, 44691-5, 11284-8, 2777-1, 31039- 5 #### [facility] ([id number]) [address], [address] [place] [address] AST [Catalytic activity/Vol] 13 U/L Normal 0-41 [facility] Comment on above: Performed By: #### C BCA, CMP, 91810-7, 66399-3, 2777-1, 09415- 5 #### [facility] ([id number]) [address], [address] [place] [address] Bilirubin [Mass/Vol] 0.3 mg/dL Normal 0.3-1.2 [facility] Comment on above: Performed By: #### C BCA, CMP, 29461-6, 85009-9, 2777-1, 86818- 5 #### [facility] ([id number]) [address], [address] [place] [address] Calcium [Mass/Vol] 9.5 mg/dL Normal 8.5-10.5 [facility] Comment on above: Performed By: #### C BCA, CMP, 96085-2, 98805-2, 2777-1, 19524- 5 #### [facility] ([id number]) [address], [address] [place] [address] Chloride [Moles/Vol] 105 mmol/L Normal 98-109 [facility] Comment on above: Performed By: #### C BCA, CMP, 78594-8, 66258-5, 2777-1, 27284- 5 #### [facility] ([id number]) [address], [address] [address] CO2 [Moles/Vol] 24 mmol/L Normal 22-32 [facility] Comment on above: Performed By: #### C BCA, CMP, 79285-4, 76256-5, 2777-1, 69653- 5 #### [facility] ([id number]) [address] [address] Creatinine [Mass/Vol] 0.34 mg/dL Low 0.40-1.00 [facility] Comment on above: Result Comment: METH OD TRACEABLE TO IDMS STANDARD Performed By: #### C BCA, CMP, 50944-4, 62370-1, 2777-1, 81470-0 #### [facility] ([id number]) [address], [address] [address] eGFR (CKD-EPI) NON-RACE DEPENDENT >90 Normal >59 [facility] Comment on above: Result Comment: Reported eGFR is based on the CKD-EPI 2020 equation that does not use a race coefficient. Performed By: #### C BCA, CMP, 75230-3, 11513-2, 2777-1, 84729-7 #### [facility] ([id number]) [address] [address] Glucose [Mass/Vol] 100 mg/dL High 65-99 [facility] Comment on above: Performed By: #### C BCA, CMP, 95424-6, 99432-2, 2777-1, 02553- 5 #### [facility] ([id number]) [address] [address] Potassium [Moles/Vol] 3.6 mmol/L Normal 3.5-5.0 [facility] Comment on above: Performed By: #### C BCA, CMP, 71356-0, 22818-8, 2777-1, 26241- 5 #### [facility] ([id number]) [address], [address] [place] [address] Protein [Mass/Vol] 5.7 g/dL Low 6.0-8.0 [facility] Comment on above: Performed By: #### C BCA, CMP, 32433-5, 85339-1, 2777-1, 76196- 5 #### [facility] ([id number]) [address], [address] [place] [address] Sodium [Moles/Vol] 139 mmol/L Normal 134-146 [facility] Comment on above: Performed By: #### C BCA, CMP, 54039-7, 90006-9, 2777-1, 39015- 5 #### [facility] ([id number]) [address], [address] [place] [address] Urea nitrogen [Mass/Vol] 7 mg/dL Normal 5-23 [facility] Comment on above: Performed By: #### C BCA, CMP, 11729-9, 21466-2, 2777-1, 91075- 5 #### [facility] ([id number]) [address], [address] [place] [address] Glucose Glucometer (BldC) [M ass/Vol]on 06-26-2024 Glucose [Mass/Vol] 112 mg/dL High 65-99 [facility] Glucose [Mass/Vol] 137 mg/dL High 65-99 [facility] Glucose [Mass/Vol] 113 mg/dL High 65-99 [facility] Glucose [Mass/Vol] 109 mg/dL High 65-99 [facility] Glucose [Mass/Vol] 101 mg/dL High 65-99 [facility] COMPREHENSIVE METABOLIC PANE Ab 06-25-2024 Albumin [Mass/Vol] 3.4 g/dL Normal 3.2-5.3 [facility] Comment on above: Performed By: #### C BCA, CMP, 05720-4, 51435-3, 2777-1, 82084- 5 #### [facility] ([id number]) [address], [address] [place] [address] ALP [Catalytic activity/Vol] 70 U/L Normal 39-130 [facility] Comment on above: Performed By: #### C BCA, CMP, 65845-8, 73933-2, 2777-1, 11490- 5 #### [facility] ([id number]) [address], [address] [place] [address] ALT [Catalytic activity/Vol] 9 U/L Normal 0-31 [facility] Comment on above: Performed By: #### C BCA, CMP, 17626-6, 88830-3, 2777-1, 98385- 5 #### [facility] ([id number]) [address], [address] [place] [address] Anion gap [Moles/Vol] 12 mmol/L Normal 5-15 [facility] Comment on above: Performed By: #### C BCA, CMP, 15882-2, 48581-4, 2777-1, 63285- 5 #### [facility] ([id number]) [address], [address] [place] [address] AST [Catalytic activity/Vol] 11 U/L Normal 0-41 [facility] Comment on above: Performed By: #### C BCA, CMP, 46173-2, 74573-6, 2777-1, 85743- 5 #### [facility] ([id number]) [address], [address] [place] [address] Bilirubin [Mass/Vol] 0.4 mg/dL Normal 0.3-1.2 [facility] Comment on above: Performed By: #### C BCA, CMP, 84409-2, 12912-6, 2777-1, 77469- 5 #### [facility] ([id number]) [address], [address] [place] [address] Calcium [Mass/Vol] 9.6 mg/dL Normal 8.5-10.5 [facility] Comment on above: Performed By: #### C BCA, CMP, 06731-0, 91150-7, 2777-1, 52237- 5 #### [facility] ([id number]) [address], [address] [place] [address] Chloride [Moles/Vol] 103 mmol/L Normal 98-109 [facility] Comment on above: Performed By: #### C BCA, CMP, 35821-7, 38774-2, 2777-1, 99167- 5 #### [facility] ([id number]) [address], [address] [place] [address] CO2 [Moles/Vol] 22 mmol/L Normal 22-32 [facility] Comment on above: Performed By: #### C BCA, CMP, 90058-3, 62826-5, 2777-1, 23784- 5 #### [facility] ([id number]) [address] [place] [address] Creatinine [Mass/Vol] 0.28 mg/dL Low 0.40-1.00 [facility] [facility] Comment on above: Result Comment: METH OD TRACEABLE TO IDMS STANDARD Performed By: #### C BCA, CMP, 77363-7, 99243-1, 2777-1, 34844-9 #### [facility] ([id number]) [address], [address] [place] [address] eGFR (CKD-EPI) NON-RACE DEPENDENT >90 Normal >59 [facility] Comment on above: Result Comment: Reported eGFR is based on the CKD-EPI 2020 equation that does not use a race coefficient. Performed By: #### C BCA, CMP, 76498-8, 37047-7, 2777-1, 35297-3 #### [facility] ([id number]) [address], [address] [place] [address] Glucose [Mass/Vol] 93 mg/dL Normal 65-99 [facility] Comment on above: Performed By: #### C BCA, CMP, 45870-7, 29519-5, 2777-1, 80211- 5 #### [facility] ([id number]) [address], [address] [place] [address] Potassium [Moles/Vol] 3.5 mmol/L Normal 3.5-5.0 [facility] Comment on above: Performed By: #### C BCA, CMP, 95313-2, 67141-2, 2777-1, 66963- 5 #### [facility] ([id number]) [address], [address] [place] [address] Protein [Mass/Vol] 5.8 g/dL Low 6.0-8.0 [facility] Comment on above: Performed By: #### C BCA, CMP, 42222-7, 25889-2, 2777-1, 67927- 5 #### [facility] ([id number]) [address], [address] [place] [address] Sodium [Moles/Vol] 137 mmol/L Normal 134-146 [facility] Comment on above: Performed By: #### C BCA, CMP, 77313-7, 92941-5, 2777-1, 70925- 5 #### [facility] ([id number]) [address], [address] [place] [address] Urea nitrogen [Mass/Vol] 7 mg/dL Normal 5-23 [facility] Comment on above: Performed By: #### C BCA, CMP, 56438-9, 29821-2, 2777-1, 51158- 5 #### [facility] ([id number]) [address], [address] [place] [address] Glucose Glucometer (BldC) [M ass/Vol]on 06-25-2024 Glucose [Mass/Vol] 113 mg/dL High 65-99 [facility] Glucose [Mass/Vol] 122 mg/dL High 65-99 [facility] Glucose [Mass/Vol] 145 mg/dL High 65-99 [facility] COMPREHENSIVE METABOLIC PANE Ab 06-24-2024 Albumin [Mass/Vol] 3.5 g/dL Normal 3.2-5.3 [facility] Comment on above: Performed By: #### C BCA, CMP, 49860-0, 04360-9, 2777-1, 81101- 5 #### [facility] ([id number]) [address], [address] [place] [address] ALP [Catalytic activity/Vol] 70 U/L Normal 39-130 [facility] Comment on above: Performed By: #### C BCA, CMP, 33170-0, 35235-0, 2777-1, 41603- 5 #### [facility] ([id number]) [address], [address] [place] [address] ALT [Catalytic activity/Vol] 8 U/L Normal 0-31 [facility] Comment on above: Performed By: #### C BCA, CMP, 83748-8, 57492-2, 2777-1, 93794- 5 #### [facility] ([id number]) [address], [address] [place] [address] Anion gap [Moles/Vol] 12 mmol/L Normal 5-15 [facility] Comment on above: Performed By: #### C BCA, CMP, 46773-6, 93890-0, 2777-1, 14632- 5 #### [facility] ([id number]) [address], [address] [place] [address] AST [Catalytic activity/Vol] 12 U/L Normal 0-41 [facility] Comment on above: Performed By: #### C BCA, CMP, 16829-6, 21264-4, 2777-1, 87613- 5 #### [facility] ([id number]) [address], [address] [place] [address] Bilirubin [Mass/Vol] 0.4 mg/dL Normal 0.3-1.2 [facility] Comment on above: Performed By: #### C BCA, CMP, 92030-1, 67989-7, 2777-1, 67565- 5 #### [facility] ([id number]) [address], [address] [place] [address] Calcium [Mass/Vol] 9.2 mg/dL Normal 8.5-10.5 [facility] Comment on above: Performed By: #### C BCA, CMP, 74160-7, 98548-2, 2776-1, 66143- 5 #### [facility] ([id number]) [address], [address] [place] [address] Chloride [Moles/Vol] 103 mmol/L Normal 98-109 [facility] Comment on above: Performed By: #### C BCA, CMP, 80916-7, 53637-6, 7-, 11792- 5 #### [facility] ([id number]) [address], [address] [place] [address] CO2 [Moles/Vol] 22 mmol/L Normal 22-32 [facility] Comment on above: Performed By: #### C BCA, CMP, 86141-5, 40495-2, 7-1, 89686- 5 #### [facility] ([id number]) [address], [address] [place] [address] Creatinine [Mass/Vol] 0.31 mg/dL Low 0.40-1.00 [facility] Comment on above: Result Comment: METH OD TRACEABLE TO IDMS STANDARD Performed By: #### C BCA, CMP, 43193-2, 46136-7, 2777-1, 37209-4 #### [facility] ([id number]) [address], [address] [place] [address] eGFR (CKD-EPI) NON-RACE DEPENDENT >90 Normal >59 [facility] Comment on above: Result Comment: Reported eGFR is based on the CKD-EPI 2020 equation that does not use a race coefficient. Performed By: #### C BCA, CMP, 43514-8, 34357-4, 2777-1, 03242-5 #### [facility] ([id number]) [address], [address] [place] [address] Glucose [Mass/Vol] 92 mg/dL Normal 65-99 [facility] Comment on above: Performed By: #### C BCA, CMP, 15496-5, 82966-5, 2777-1, 58977- 5 #### [facility] ([id number]) [address] [address] [place] [address] Potassium [Moles/Vol] 3.8 mmol/L Normal 3.5-5.0 [facility] Comment on above: Performed By: #### C BCA, CMP, 36655-1, 49635-3, 2777-1, 43854- 5 #### [facility] ([id number]) [address] [address] [place] [address] Protein [Mass/Vol] 5.9 g/dL Low 6.0-8.0 [facility] Comment on above: Performed By: #### C BCA, CMP, 33096-0, 99419-8, 2777-1, 24264- 5 #### [facility] ([id number]) [address] [address] [place] [address] Sodium [Moles/Vol] 137 mmol/L Normal 134-146 [facility] Comment on above: Performed By: #### C BCA, CMP, 12371-8, 45608-5, 2777-1, 22079- 5 #### [facility] ([id number]) [address], [address] [place] [address] Urea nitrogen [Mass/Vol] 7 mg/dL Normal 5-23 [facility] Comment on above: Performed By: #### C SHERITA, CMP, 35832-6, 27620-8, 2777-1, 89574- 5 #### [facility] ([id number]) [address], [address] [place] [address] DIGOXINon 06-24-2024 Digoxin [Mass/Vol] 1.3 ng/mL Normal 0.8-2.0 [facility] Comment on above: Performed By: #### C SHERITA, ROSA, 73571-0, 70207-4, 2777-1, 01857- 5 #### [facility] ([id number]) [address], [address] [place] [address] Glucose Glucometer (BldC) [M ass/Vol]on 06-24-2024 Glucose [Mass/Vol] 106 mg/dL High 65-99 [facility] Glucose [Mass/Vol] 113 mg/dL High 65-99 [facility] Glucose [Mass/Vol] 116 mg/dL High 65-99 [facility] Glucose [Mass/Vol] 93 mg/dL Normal 65-99 [facility] MAGNESIUMon 06-24-2024 Magnesium [Mass/Vol] 1.6 mg/dL Low 1.8-2.6 [facility] Comment on above: Performed By: #### C SHERITA, CMP, , 41912-2, 2777-1, 94193- 5 #### [facility] ([id number]) [address], [address] [place] [address] POTASSIUMon 06-24-2024 Potassium [Moles/Vol] 3.7 mmol/L Normal 3.5-5.0 [facility] Comment on above: Performed By: #### C SHERITA, CMP, 73019-1, 18177-3, 2777-1, 28411- 5 #### [facility] ([id number]) [address], [address] [place] [address] COMPREHENSIVE METABOLIC PANE Ab 06-23-2024 Albumin [Mass/Vol] 3.6 g/dL Normal 3.2-5.3 [facility] Comment on above: Performed By: #### C BCA, CMP, 19967-7, 78268-0, 2777-1, 88350- 5 #### [facility] ([id number]) [address], [address] [place] [address] ALP [Catalytic activity/Vol] 74 U/L Normal 39-130 [facility] Comment on above: Performed By: #### C BCA, CMP, 22810-9, 71407-7, 2777-1, 20891- 5 #### [facility] ([id number]) [address], [address] [place] [address] ALT [Catalytic activity/Vol] 8 U/L Normal 0-31 [facility] Comment on above: Performed By: #### C BCA, CMP, 75525-3, 28505-9, 2777-1, 82749- 5 #### [facility] ([id number]) [address], [address] [place] [address] Anion gap [Moles/Vol] 13 mmol/L Normal 5-15 [facility] Comment on above: Performed By: #### C BCA, CMP, 99858-4, 54160-7, 2777-1, 80220- 5 #### [facility] ([id number]) [address], [address] [place] [address] AST [Catalytic activity/Vol] 10 U/L Normal 0-41 [facility] Comment on above: Performed By: #### C BCA, CMP, 08449-1, 59455-3, 2777-1, 01727- 5 #### [facility] ([id number]) [address], [address] [place] [address] Bilirubin [Mass/Vol] 0.3 mg/dL Normal 0.3-1.2 [facility] Comment on above: Performed By: #### C BCA, CMP, 79176-8, 55932-4, 2777-1, 68568- 5 #### [facility] ([id number]) [address], [address] [place] [address] Calcium [Mass/Vol] 9.6 mg/dL Normal 8.5-10.5 [facility] Comment on above: Performed By: #### C BCA, CMP, 45141-0, 44113-8, 2777-1, 23205- 5 #### [facility] ([id number]) [address], [address] [place] [address] Chloride [Moles/Vol] 103 mmol/L Normal 98-109 [facility] Comment on above: Performed By: #### C BCA, CMP, 98161-5, 03799-1, 2777-1, 05722- 5 #### [facility] ([id number]) [address], [address] [place] [address] CO2 [Moles/Vol] 23 mmol/L Normal 22-32 [facility] Comment on above: Performed By: #### C BCA, CMP, 34130-8, 19222-7, 2777-1, 25464- 5 #### [facility] ([id number]) [address], [address] [place] [address] Creatinine [Mass/Vol] 0.28 mg/dL Low 0.40-1.00 [facility] Comment on above: Result Comment: METH OD TRACEABLE TO IDMS STANDARD Performed By: #### C BCA, CMP, 74349-6, 32012-0, 2777-1, 78836-3 #### [facility] ([id number]) [address], [address] [place] [address] eGFR (CKD-EPI) NON-RACE DEPENDENT >90 Normal >59 [facility] Comment on above: Result Comment: Reported eGFR is based on the CKD-EPI 2020 equation that does not use a race coefficient. Performed By: #### C BCA, CMP, 43640-9, 28156-3, 2777-1, 51287-1 #### [facility] ([id number]) [address], [address] [place] [address] Glucose [Mass/Vol] 98 mg/dL Normal 65-99 [facility] Comment on above: Performed By: #### C BCA, CMP, 98525-5, 70262-1, 2777-1, 03979- 5 #### [facility] ([id number]) [address], [address] [place] [address] Potassium [Moles/Vol] 3.6 mmol/L Normal 3.5-5.0 [facility] Comment on above: Performed By: #### C BCA, CMP, 19701-1, 63144-7, 2777-1, 91890- 5 #### [facility] ([id number]) [address], [address] [place] [address] Protein [Mass/Vol] 6.1 g/dL Normal 6.0-8.0 [facility] Comment on above: Performed By: #### C BCA, CMP, 81881-3, 95187-6, 2777-1, 13972- 5 #### [facility] ([id number]) [address], [address] [place] [address] Sodium [Moles/Vol] 139 mmol/L Normal 134-146 [facility] Comment on above: Performed By: #### C BCA, CMP, 27678-3, 23683-8, 2777-1, 56696- 5 #### [facility] ([id number]) [address], [address] [place] [address] Urea nitrogen [Mass/Vol] 5 mg/dL Normal 5-23 [facility] Comment on above: Performed By: #### C BCA, CMP, 40883-2, 97491-1, 2777-1, 57976- 5 #### [facility] ([id number]) [address], [address] [place] [address] DIGOXINon 06-23-2024 Digoxin [Mass/Vol] 1.5 ng/mL Normal 0.8-2.0 [facility] Comment on above: Performed By: #### C SHERITA, ROSA, , 95412-8, 2777-1, 06537- 5 #### [facility] ([id number]) [address], [address] [place] [address] Glucose Glucometer (BldC) [M ass/Vol]on 06-23-2024 Glucose [Mass/Vol] 129 mg/dL High 65-99 [facility] Glucose [Mass/Vol] 127 mg/dL High 65-99 [facility] Glucose [Mass/Vol] 120 mg/dL High 65-99 [facility] Glucose [Mass/Vol] 98 mg/dL Normal 65-99 [facility] MAGNESIUMon 06-23-2024 Magnesium [Mass/Vol] 1.7 mg/dL Low 1.8-2.6 [facility] Comment on above: Performed By: #### C ROSA MAGALLON, , 63591-2, 2777-1, 76526- 5 #### [facility] ([id number]) [address], [address] [place] [address] Magnesium [Mass/Vol] 1.8 mg/dL Normal 1.8-2.6 [facility] Comment on above: Performed By: #### C SHERITA, CMP, 06564-4, 26143-3, 2777-1, 28146- 5 #### [facility] ([id number]) [address], [address] [place] [address] Magnesium [Mass/Vol] 1.7 mg/dL Low 1.8-2.6 [facility] Comment on above: Performed By: #### C BCA, CMP, 08393-0, 75740-5, 2777-1, 50324- 5 #### [facility] ([id number]) [address], [address] [place] [address] POTASSIUMon 06-23-2024 Potassium [Moles/Vol] 3.8 mmol/L Normal 3.5-5.0 [facility] Comment on above: Performed By: #### C BCA, CMP, 71130-4, 17996-6, 2777-1, 51381- 5 #### [facility] ([id number]) [address] [facility] [facility] [place] [address] Potassium [Moles/Vol] 3.7 mmol/L Normal 3.5-5.0 [facility] Comment on above: Performed By: #### C BCA, CMP, 20693-0, 66748-4, 2777-1, 13875- 5 #### [facility] ([id number]) [address], [address] [place] [address] COMPREHENSIVE METABOLIC PANE Ab 06-22-2024 Albumin [Mass/Vol] 3.5 g/dL Normal 3.2-5.3 [facility] Comment on above: Performed By: #### C BCA, CMP, 00122-7, 30933-2, 2777-1, 29706- 5 #### [facility] ([id number]) [address], [address] [place] [address] ALP [Catalytic activity/Vol] 64 U/L Normal 39-130 [facility] Comment on above: Performed By: #### C BCA, CMP, 61912-8, 28443-1, 2777-1, 72752- 5 #### [facility] ([id number]) [address], [address] [place] [address] ALT [Catalytic activity/Vol] 8 U/L Normal 0-31 [facility] Comment on above: Performed By: #### C BCA, CMP, 19462-9, 26590-9, 2777-1, 46202- 5 #### [facility] ([id number]) [address], [address] [place] [address] Anion gap [Moles/Vol] 11 mmol/L Normal 5-15 [facility] Comment on above: Performed By: #### C BCA, CMP, 80033-5, 24082-5, 2777-1, 16663- 5 #### [facility] ([id number]) [address], [address] [place] [address] AST [Catalytic activity/Vol] 12 U/L Normal 0-41 [facility] Comment on above: Performed By: #### C BCA, CMP, 13874-1, 29239-4, 2777-1, 70758- 5 #### [facility] ([id number]) [address], [address] [place] [address] Bilirubin [Mass/Vol] 0.4 mg/dL Normal 0.3-1.2 [facility] Comment on above: Performed By: #### C BCA, CMP, 55480-0, 12588-2, 2777-1, 44112- 5 #### [facility] ([id number]) [address], [address] [place] [address] Calcium [Mass/Vol] 8.8 mg/dL Normal 8.5-10.5 [facility] Comment on above: Performed By: #### C BCA, CMP, 71951-0, 21611-9, 2777-1, 87985- 5 #### [facility] ([id number]) [address], [address] [place] [address] Chloride [Moles/Vol] 102 mmol/L Normal 98-109 [facility] Comment on above: Performed By: #### C BCA, CMP, 25036-8, 52961-3, 2777-1, 13745- 5 #### [facility] ([id number]) [address] [address] [place] [address] CO2 [Moles/Vol] 22 mmol/L Normal 22-32 [facility] Comment on above: Performed By: #### C BCA, CMP, 50376-2, 29518-4, 2777-1, 81155- 5 #### [facility] ([id number]) [address] [address] Creatinine [Mass/Vol] 0.30 mg/dL Low 0.40-1.00 [facility] Comment on above: Result Comment: METH OD TRACEABLE TO IDMS STANDARD Performed By: #### C BCA, CMP, 60823-1, 25163-1, 2777-1, 90754-2 #### [facility] ([id number]) [address] [address] eGFR (CKD-EPI) NON-RACE DEPENDENT >90 Normal >59 [facility] Comment on above: Result Comment: Reported eGFR is based on the CKD-EPI 2020 equation that does not use a race coefficient. Performed By: #### C BCA, CMP, 72906-8, 81594-8, 2777-1, 89775-4 #### [facility] ([id number]) [address] [address] Glucose [Mass/Vol] 130 mg/dL High 65-99 [facility] Comment on above: Performed By: #### C BCA, CMP, 21784-7, 07220-7, 2777-1, 83857- 5 #### [facility] ([id number]) [address] [address] Potassium [Moles/Vol] 3.9 mmol/L Normal 3.5-5.0 [facility] Comment on above: Performed By: #### C BCA, CMP, 94647-6, 19301-4, 2777-1, 67012- 5 #### [facility] ([id number]) [address] [place] [address] Protein [Mass/Vol] 6.0 g/dL Normal 6.0-8.0 [facility] Comment on above: Performed By: #### C BCA, CMP, 41937-4, 00353-1, 2777-1, 73196- 5 #### [facility] ([id number]) [address] [place] [address] Sodium [Moles/Vol] 135 mmol/L Normal 134-146 [facility] Comment on above: Performed By: #### C BCA, CMP, 73016-3, 88073-1, 2777-1, 90752- 5 #### [facility] ([id number]) [address] [place] [address] Urea nitrogen [Mass/Vol] 7 mg/dL Normal 5-23 [facility] Comment on above: Performed By: #### C BCA, CMP, 44510-8, 55350-0, 2777-1, 60611- 5 #### [facility] ([id number]) [address] [place] [address] DIGOXINon 06-22-2024 Digoxin [Mass/Vol] 1.6 ng/mL Normal 0.8-2.0 [facility] Comment on above: Performed By: #### C BCA, CMP, 45337-9, 60847-3, 2777-1, 34661- 5 #### [facility] ([id number]) [address] [place] [address] Glucose Glucometer (BldC) [M ass/Vol]on 06-22-2024 Glucose [Mass/Vol] 133 mg/dL High 65-99 [facility] Glucose [Mass/Vol] 133 mg/dL High 65-99 [facility] Glucose [Mass/Vol] 127 mg/dL High 65-99 [facility] Glucose [Mass/Vol] 103 mg/dL High 65-99 [facility] Laboratory comment Víctor (o rt)on 06-22-2024 UNLISTED LAB TEST Sent to reference lab Normal [facility] MAGNESIUMon 06-22-2024 Magnesium [Mass/Vol] 1.6 mg/dL Low 1.8-2.6 [facility] Comment on above: Performed By: #### C BCA, CMP, 42765-3, 18046-2, 2777-1, 21728- 5 #### [facility] ([id number]) [address] [place] [address] Magnesium [Mass/Vol] 1.9 mg/dL Normal 1.8-2.6 [facility] Comment on above: Performed By: #### C BCA, CMP, 77565-7, 31541-8, 2777-1, 13058- 5 #### [facility] ([id number]) [address] [place] [address] Magnesium [Mass/Vol] 1.7 mg/dL Low 1.8-2.6 [facility] Comment on above: Performed By: #### C BCA, CMP, 95965-8, 28951-0, 2777-1, 07437- 5 #### [facility] ([id number]) [address] [place] [address] [facility] ORDERon 025 TEST NAME ALBERTO SANTOVIDYA ON NO GEL SERUM Normal [facility] TEST RESULT SEE COMMENTS 06/23/2024 12:49 PM Normal [facility] Comment on above: Result Comment: NOTE Test Result Flag Unit RefValue -- Flecainide, S 0.5 mcg/mL REFERENCE VALUE 0.2 - 1.0 (Therapeutic concentration, trough value), >1.0 (Toxic concentration, trough value) ADDITIONAL INFORMATION This test was developed and its performance characteristics determined by [facility] in a manner consistent with CLIA requirements. This test has not been cleared or approved by the U.S. Food and Drug Administration. Test Performed by: [facility] [address] [id number] Transfer Controller: Mino Cain Ph.D.; CLIA# [id number] Magnesium Ionized ISE (Bld) [Moles/Vol]on 06-22-2024 Magnesium [Moles/Vol] 0.45 mmol/L Normal 0.45-0.74 [facility] Comment on above: Result Comment: NEW REFERENCE RANGE Performed By: #### C BCA, CMP, , 66423-0, 2777-1, 63359-4 #### [facility] ([id number]) [address] [facility] [address] [place] [address] POTASSIUMon 06-22-2024 Potassium [Moles/Vol] 4.1 mmol/L Normal 3.5-5.0 [facility] Comment on above: Performed By: #### C BCA, CMP, , 46155-4, 2777-1, 52129- 5 #### [facility] ([id number]) [address] [place] [address] COMPREHENSIVE METABOLIC PANE Ab 06-21-2024 Albumin [Mass/Vol] 3.7 g/dL Normal 3.2-5.3 [facility] Comment on above: Performed By: #### [place], 274[address]-9 #### [facility] ([id number]) [address] [place] [address] ALP [Catalytic activity/Vol] 67 U/L Normal 39-130 [facility] Comment on above: Performed By: #### Jahaira CHAN, #### [facility] ([id number]) [address], [address] [place] [address] ALT [Catalytic activity/Vol] 8 U/L Normal 0-31 [facility] Comment on above: Performed By: #### Jahaira CHAN, #### [facility] ([id number]) [address] [place] [address] Anion gap [Moles/Vol] 11 mmol/L Normal 5-15 [facility] Comment on above: Performed By: #### Jahaira CHAN, #### [facility] ([id number]) [address], [address] [place] [address] AST [Catalytic activity/Vol] 13 U/L Normal 0-41 [facility] Comment on above: Performed By: #### Jahaira CHAN, #### [facility] ([id number]) [address], [address] [place] [address] Bilirubin [Mass/Vol] 0.4 mg/dL Normal 0.3-1.2 [facility] Comment on above: Performed By: #### Jahaira CHAN, #### [facility] ([id number]) [address], [address] [place] [address] Calcium [Mass/Vol] 10.6 mg/dL High 8.5-10.5 [facility] Comment on above: Performed By: #### Jahaira CHAN, #### [facility] ([id number]) [address], [address] [place] [address] Chloride [Moles/Vol] 101 mmol/L Normal 98-109 [facility] Comment on above: Performed By: #### Jahaira CHAN, #### [facility] ([id number]) [address], [address] [place] [address] CO2 [Moles/Vol] 23 mmol/L Normal 22-32 [facility] Comment on above: Performed By: #### Jahaira CHAN, #### [facility] ([id number]) [address] [place] [address] Creatinine [Mass/Vol] 0.35 mg/dL Low 0.40-1.00 [facility] Comment on above: Result Comment: METH OD TRACEABLE TO IDMS STANDARD Performed By: #### Jahaira CHAN, #### [facility] ([id number]) [address], [facility] [address] [place] [address] eGFR (CKD-EPI) NON-RACE DEPENDENT >90 Normal >59 [facility] Comment on above: Result Comment: Reported eGFR is based on the CKD-EPI 2020 equation that does not use a race coefficient. Performed By: #### Jahaira CHAN, #### [facility] ([id number]) [address], [address] [place] [address] Glucose [Mass/Vol] 126 mg/dL High 65-99 [facility] Comment on above: Performed By: #### Jahaira CHAN, #### [facility] ([id number]) [address] [place] [address] Potassium [Moles/Vol] 3.6 mmol/L Normal 3.5-5.0 [facility] Comment on above: Performed By: #### Jahaira CHAN, #### [facility] ([id number]) [address], [address] [place] [address] Protein [Mass/Vol] 6.2 g/dL Normal 6.0-8.0 [facility] Comment on above: Performed By: #### Jahaira CHAN, #### [facility] ([id number]) [address], [address] [place] [address] Sodium [Moles/Vol] 135 mmol/L Normal 134-146 [facility] Comment on above: Performed By: #### Jahaira CHAN, #### [facility] ([id number]) [address], [address] [place] [address] Urea nitrogen [Mass/Vol] 7 mg/dL Normal 5-23 [facility] Comment on above: Performed By: #### Jahaira CHAN, #### [facility] ([id number]) [address], [address] [place] [address] DIGOXINon 06-21-2024 Digoxin [Mass/Vol] 1.9 ng/mL Normal 0.8-2.0 [facility] Comment on above: Performed By: #### C ROSA MAGALLON, , 49084-0, 2777-1, 89259- 5 #### [facility] ([id number]) [address], [address] [address] Glucose Glucometer (BldC) [M ass/Vol]on 06-21-2024 Glucose [Mass/Vol] 131 mg/dL High 65-99 [facility] Glucose [Mass/Vol] 131 mg/dL High 65-99 [facility] Glucose [Mass/Vol] 98 mg/dL Normal 65-99 [facility] MAGNESIUMon 06-21-2024 Magnesium [Mass/Vol] 1.8 mg/dL Normal 1.8-2.6 [facility] Comment on above: Performed By: #### C SHERITA, CMP, , 42095-9, 2777-1, 08810- 5 #### [facility] ([id number]) [address] [address] [place] [address] Magnesium [Mass/Vol] 1.5 mg/dL Low 1.8-2.6 [facility] Comment on above: Performed By: #### Jahaira CHAN, #### [facility] ([id number]) [address], [address] [place] [address] POTASSIUMon 06-21-2024 Potassium [Moles/Vol] 3.9 mmol/L Normal 3.5-5.0 [facility] Comment on above: Performed By: #### C BCA, CMP, 97267-9, 43294-6, 2777-1, 73803- 5 #### [facility] ([id number]) [address], [address] [place] [address] COMPREHENSIVE METABOLIC PANE Ab 06-20-2024 Albumin [Mass/Vol] 3.7 g/dL Normal 3.2-5.3 [facility] Comment on above: Performed By: #### 1 558-6 #### [facility] ([id number]) [address], [address] [place] [address] ALP [Catalytic activity/Vol] 65 U/L Normal 39-130 [facility] Comment on above: Performed By: #### 1 558-6 #### [facility] ([id number]) [address], [address] [place] [address] ALT [Catalytic activity/Vol] 10 U/L Normal 0-31 [facility] Comment on above: Performed By: #### 1 558-6 #### [facility] ([id number]) [address], [address] [place] [address] Anion gap [Moles/Vol] 9 mmol/L Normal 5-15 [facility] Comment on above: Performed By: #### 1 558-6 #### [facility] ([id number]) [address], [address] [place] [address] AST [Catalytic activity/Vol] 13 U/L Normal 0-41 [facility] Comment on above: Performed By: #### 1 558-6 #### [facility] ([id number]) [address], [address] [place] [address] Bilirubin [Mass/Vol] 0.3 mg/dL Normal 0.3-1.2 [facility] Comment on above: Performed By: #### 1 558-6 #### [facility] ([id number]) [address], [facility] [address] [place] [address] Calcium [Mass/Vol] 9.4 mg/dL Normal 8.5-10.5 [facility] Comment on above: Performed By: #### 1 558-6 #### [facility] ([id number]) [address], [facility] [address] [place] [address] Chloride [Moles/Vol] 104 mmol/L Normal 98-109 [facility] Comment on above: Performed By: #### 1 558-6 #### [facility] ([id number]) [address], [facility] [address] [place] [address] CO2 [Moles/Vol] 25 mmol/L Normal 22-32 [facility] Comment on above: Performed By: #### 1 558-6 #### [facility] ([id number]) [address], [facility] [address] [place] [address] Creatinine [Mass/Vol] 0.36 mg/dL Low 0.40-1.00 [facility] Comment on above: Result Comment: METH OD TRACEABLE TO IDMS STANDARD Performed By: #### 1 558-6 #### [facility] ([id number]) [address] [address] [place] [address] eGFR (CKD-EPI) NON-RACE DEPENDENT >90 Normal >59 [facility] Comment on above: Result Comment: Reported eGFR is based on the CKD-EPI 2020 equation that does not use a race coefficient. Performed By: #### 1 558-6 #### [facility] ([id number]) [address], [address] [place] [address] Glucose [Mass/Vol] 93 mg/dL Normal 65-99 [facility] Comment on above: Performed By: #### 1 558-6 #### [facility] ([id number]) [address], [address] [place] [address] Potassium [Moles/Vol] 3.9 mmol/L Normal 3.5-5.0 [facility] Comment on above: Performed By: #### 1 558-6 #### [facility] ([id number]) [address], [address] [place] [address] Protein [Mass/Vol] 6.1 g/dL Normal 6.0-8.0 [facility] Comment on above: Performed By: #### 1 558-6 #### [facility] ([id number]) [address], [address] [place] [address] Sodium [Moles/Vol] 138 mmol/L Normal 134-146 [facility] Comment on above: Performed By: #### 1 558-6 #### [facility] ([id number]) [address], [address] [place] [address] Urea nitrogen [Mass/Vol] 6 mg/dL Normal 5-23 [facility] Comment on above: Performed By: #### 1 558-6 #### [facility] ([id number]) [address], [address] [place] [address] DIGOXINon 06-20-2024 Digoxin [Mass/Vol] 1.9 ng/mL Normal 0.8-2.0 [facility] Comment on above: Performed By: #### [place], [address]-9 #### [facility] ([id number]) [address], [address] [place] [address] Glucose Glucometer (BldC) [M ass/Vol]on 06-20-2024 Glucose [Mass/Vol] 130 mg/dL High 65-99 [facility] Glucose [Mass/Vol] 95 mg/dL Normal 65-99 [facility] Glucose [Mass/Vol] 123 mg/dL High 65-99 [facility] MAGNESIUMon 06-20-2024 Magnesium [Mass/Vol] 1.9 mg/dL Normal 1.8-2.6 [facility] Comment on above: Performed By: #### B ROCIO, #### [facility] ([id number]) [address], [address] [place] [address] Magnesium [Mass/Vol] 1.8 mg/dL Normal 1.8-2.6 [facility] Comment on above: Performed By: #### 1 558-6 #### [facility] ([id number]) [address], [address] [place] [address] Magnesium [Mass/Vol] 1.8 mg/dL Normal 1.8-2.6 [facility] Comment on above: Performed By: #### 1 558-6 #### [facility] ([id number]) [address] [place] [address] POTASSIUMon 06-20-2024 Potassium [Moles/Vol] 3.7 mmol/L Normal 3.5-5.0 [facility] Comment on above: Performed By: #### B ROCIO, #### [facility] ([id number]) [address], [address] [place] [address] Potassium [Moles/Vol] 3.9 mmol/L Normal 3.5-5.0 [facility] Comment on above: Performed By: #### 1 558-6 #### [facility] ([id number]) [address], [address] [place] [address] COMPREHENSIVE METABOLIC PANE Ab 06-19-2024 Albumin [Mass/Vol] 3.5 g/dL Normal 3.2-5.3 [facility] Comment on above: Performed By: #### C ROCIO, ####[facility] ([id number])[address], [address], [place] [address] ALP [Catalytic activity/Vol] 58 U/L Normal 39-130 [facility] Comment on above: Performed By: #### Heather CHAN, ####[facility] ([id number])[address], [address], [place] [address] ALT [Catalytic activity/Vol] 9 U/L Normal 0-31 [facility] Comment on above: Performed By: #### Heather CHAN, ####[facility] ([id number])[address], [address], [place] [address] Anion gap [Moles/Vol] 10 mmol/L Normal 5-15 [facility] Comment on above: Performed By: #### Heather CHAN, ####[facility] ([id number])[address], [address], [place] [address] AST [Catalytic activity/Vol] 11 U/L Normal 0-41 [facility] Comment on above: Performed By: #### Heather CHAN, ####[facility] ([id number])[address], [address], [place] [address] Bilirubin [Mass/Vol] 0.2 mg/dL Low 0.3-1.2 [facility] Comment on above: Performed By: #### Heather CHAN, ####[facility] ([id number])[address], [address], [place] [address] Calcium [Mass/Vol] 8.7 mg/dL Normal 8.5-10.5 [facility] Comment on above: Performed By: #### Heather CHAN, ####[facility] ([id number])[address], [address], [place] [address] Chloride [Moles/Vol] 103 mmol/L Normal 98-109 [facility] Comment on above: Performed By: #### C ROCIO, ####[facility] ([id number])[address] [address], [place] [address] CO2 [Moles/Vol] 24 mmol/L Normal 22-32 [facility] Comment on above: Performed By: #### C ROCIO, ####[facility] ([id number])[address], [address], [place] [address] Creatinine [Mass/Vol] 0.37 mg/dL Low 0.40-1.00 [facility] Comment on above: Result Comment: METH OD TRACEABLE TO IDMS STANDARD Performed By: #### C ROCIO, ####[facility] ([id number])[address] [address], [place] [address] eGFR (CKD-EPI) NON-RACE DEPENDENT >90 Normal >59 [facility] Comment on above: Result Comment: Reported eGFR is based on the CKD-EPI 1 equation that does not use a race coefficient. Performed By: #### C ROCIO, ####[facility] ([id number])[address] [address], [place] [address] Glucose [Mass/Vol] 100 mg/dL High 65-99 [facility] Comment on above: Performed By: #### Heather CHAN, ####[facility] ([id number])[address] [address], [place] [address] Potassium [Moles/Vol] 3.7 mmol/L Normal 3.5-5.0 [facility] Comment on above: Performed By: #### C ROCIO, ####[facility] ([id number])[address] [address], [place] [address] Protein [Mass/Vol] 5.9 g/dL Low 6.0-8.0 [facility] Comment on above: Performed By: #### C ROCIO, 34754-7 ####[facility] ([id number])[address], [address] [place] [address] Sodium [Moles/Vol] 137 mmol/L Normal 134-146 [facility] Comment on above: Performed By: #### C ROCIO, 14086-8 ####[facility] ([id number])[address], [address] [place] [address] Urea nitrogen [Mass/Vol] 7 mg/dL Normal 5-23 [facility] Comment on above: Performed By: #### C ROCIO, 91706-7 ####[facility] ([id number])[address], [address] [place] [address] DIGOXINon 06-19-2024 Digoxin [Mass/Vol] 1.6 ng/mL Normal 0.8-2.0 [facility] Comment on above: Performed By: #### 1 0535-3 ####[facility] ([id number])[address], [address] [place] [address] Glucose Glucometer (BldC) [M ass/Vol]on 06-19-2024 Glucose [Mass/Vol] 117 mg/dL High 65-99 [facility] Glucose [Mass/Vol] 108 mg/dL High 65-99 [facility] Glucose [Mass/Vol] 91 mg/dL Normal 65-99 [facility] Glucose [Mass/Vol] 86 mg/dL Normal 65-99 [facility] MAGNESIUMon 06-19-2024 Magnesium [Mass/Vol] 1.7 mg/dL Low 1.8-2.6 [facility] Comment on above: Performed By: #### 1 558-6 #### [facility] ([id number]) [address], [address] [place] [address] Magnesium [Mass/Vol] 1.9 mg/dL Normal 1.8-2.6 [facility] Comment on above: Performed By: #### 1 9123-9 ####[facility] ([id number])[address], [address], [place] [address] Magnesium [Mass/Vol] 1.8 mg/dL Normal 1.8-2.6 [facility] Comment on above: Performed By: #### [place], 269[address]-0 ####[facility] ([id number])[address], [address], [place] [address] POTASSIUMon 06-19-2024 Potassium [Moles/Vol] 3.5 mmol/L Normal 3.5-5.0 [facility] Comment on above: Performed By: #### 1 558-6 #### [facility] ([id number]) [address], [address] [place] [address] Potassium [Moles/Vol] 3.7 mmol/L Normal 3.5-5.0 [facility] Comment on above: Performed By: #### 2 823-3 ####[facility] ([id number])[address], [address], [place] [address] COMPREHENSIVE METABOLIC PANE Ab 06-18-2024 Albumin [Mass/Vol] 3.6 g/dL Normal 3.2-5.3 [facility] Comment on above: Performed By: #### D GODOY #### [facility] ([id number]) [address], [address] [place] [address] ALP [Catalytic activity/Vol] 63 U/L Normal 39-130 [facility] Comment on above: Performed By: #### D GODOY #### [facility] ([id number]) [address], [address] [place] [address] ALT [Catalytic activity/Vol] 10 U/L Normal 0-31 [facility] Comment on above: Performed By: #### D GODOY #### [facility] ([id number]) [address], [address] [place] [address] Anion gap [Moles/Vol] 11 mmol/L Normal 5-15 [facility] Comment on above: Performed By: #### D GODOY #### [facility] ([id number]) [address], [address] [place] [address] AST [Catalytic activity/Vol] 12 U/L Normal 0-41 [facility] Comment on above: Performed By: #### D GODOY #### [facility] ([id number]) [address], [address] [place] [address] Bilirubin [Mass/Vol] 0.3 mg/dL Normal 0.3-1.2 [facility] Comment on above: Performed By: #### D GODOY #### [facility] ([id number]) [address], [address] [place] [address] Calcium [Mass/Vol] 8.8 mg/dL Normal 8.5-10.5 [facility] Comment on above: Performed By: #### D GODOY #### [facility] ([id number]) [address], [address] [place] [address] Chloride [Moles/Vol] 104 mmol/L Normal 98-109 [facility] Comment on above: Performed By: #### D GODOY #### [facility] ([id number]) [address], [address] [place] [address] CO2 [Moles/Vol] 22 mmol/L Normal 22-32 [facility] Comment on above: Performed By: #### D GODOY #### [facility] ([id number]) [address], [address] [place] [address] Creatinine [Mass/Vol] 0.34 mg/dL Low 0.40-1.00 [facility] Comment on above: Result Comment: METH OD TRACEABLE TO IDMS STANDARD Performed By: #### D GODOY #### [facility] ([id number]) [address], [address] [place] [address] eGFR (CKD-EPI) NON-RACE DEPENDENT >90 Normal >59 [facility] Comment on above: Result Comment: Reported eGFR is based on the CKD-EPI 2020 equation that does not use a race coefficient. Performed By: #### D GODOY #### [facility] ([id number]) [address], [address] [place] [address] Glucose [Mass/Vol] 105 mg/dL High 65-99 [facility] Comment on above: Performed By: #### D GODOY #### [facility] ([id number]) [address] [place] [address] Potassium [Moles/Vol] 3.6 mmol/L Normal 3.5-5.0 [facility] Comment on above: Performed By: #### D GODOY #### [facility] ([id number]) [address], [address] [place] [address] Protein [Mass/Vol] 5.9 g/dL Low 6.0-8.0 [facility] Comment on above: Performed By: #### D GODOY #### [facility] ([id number]) [address], [address] [place] [address] Sodium [Moles/Vol] 137 mmol/L Normal 134-146 [facility] Comment on above: Performed By: #### D GODOY #### [facility] ([id number]) [address], [address] [place] [address] Urea nitrogen [Mass/Vol] 7 mg/dL Normal 5-23 [facility] Comment on above: Performed By: #### D GODOY #### [facility] ([id number]) [address], [address] [place] [address] DIGOXINon 06-18-2024 Digoxin [Mass/Vol] 1.2 ng/mL Normal 0.8-2.0 [facility] Comment on above: Performed By: #### D GODOY #### [facility] ([id number]) [address], [address] [place] [address] Glucose Glucometer ([facility]) [M ass/Vol]on 06-18-2024 Glucose [Mass/Vol] 121 mg/dL High 65-99 [facility] Glucose [Mass/Vol] 141 mg/dL High 65-99 [facility] Glucose [Mass/Vol] 126 mg/dL High 65-99 [facility] Glucose [Mass/Vol] 112 mg/dL High 65-99 [facility] Laboratory comment Víctor (Antoni rt)on 06-18-2024 UNLISTED LAB TEST Sent to reference lab Normal [facility] MAGNESIUMon 06-18-2024 Magnesium [Mass/Vol] 1.9 mg/dL Normal 1.8-2.6 [facility] Comment on above: Performed By: #### 1 0535-3, 2823-3, 06778-5 ####[facility] ([id number])[address], [place] [address] Magnesium [Mass/Vol] 1.8 mg/dL Normal 1.8-2.6 [facility] Comment on above: Performed By: #### D GODOY #### [facility] ([id number]) [address], [address] [place] [address] [facility] ORDERon 025 TEST NAME FLEC FLECAINIDE RED SERUM Normal [facility] TEST RESULT SEE COMMENTS 06/22/2024 06:36 PM Normal [facility] Comment on above: Result Comment: NOTE Test Result Flag Unit RefValue -- Flecainide, S 0.6 mcg/mL REFERENCE VALUE 0.2 - 1.0 (Therapeutic concentration, trough value), >1.0 (Toxic concentration, trough value) ADDITIONAL INFORMATION This test was developed and its performance characteristics determined by [facility] in a manner consistent with CLIA requirements. This test has not been cleared or approved by the U.S. Food and Drug Administration. Test Performed by: [facility] [address] [place] [address] Transfer Controller: Mino Cain Ph.D.; CLIA# [id number] POTASSIUMon 06-18-2024 Potassium [Moles/Vol] 3.6 mmol/L Normal 3.5-5.0 [facility] Comment on above: Performed By: #### D GODOY #### [facility] ([id number]) [address] [facility] [place] [address] COMPREHENSIVE METABOLIC PANE Ab 06-17-2024 Albumin [Mass/Vol] 3.7 g/dL Normal 3.2-5.3 [facility] Comment on above: Performed By: #### C BCA, CMP, 02662-0, 55834-6, 2777-1, 30238- 5 #### [facility] ([id number]) [address], [address] [place] [address] ALP [Catalytic activity/Vol] 64 U/L Normal 39-130 [facility] Comment on above: Performed By: #### C BCA, CMP, 90524-8, 74432-8, 2777-1, 86003- 5 #### [facility] ([id number]) [address], [address] [place] [address] ALT [Catalytic activity/Vol] 9 U/L Normal 0-31 [facility] Comment on above: Performed By: #### C BCA, CMP, 70768-9, 61278-5, 2777-1, 02415- 5 #### [facility] ([id number]) [address], [address] [place] [address] Anion gap [Moles/Vol] 14 mmol/L Normal 5-15 [facility] Comment on above: Performed By: #### C BCA, CMP, 60533-4, 39254-5, 2777-1, 31290- 5 #### [facility] ([id number]) [address], [address] [place] [address] AST [Catalytic activity/Vol] 11 U/L Normal 0-41 [facility] Comment on above: Performed By: #### C BCA, CMP, 13065-7, 13016-6, 2777-1, 12878- 5 #### [facility] ([id number]) [address], [address] [place] [address] Bilirubin [Mass/Vol] 0.4 mg/dL Normal 0.3-1.2 [facility] Comment on above: Performed By: #### C BCA, CMP, 40787-9, 10345-5, 2777-1, 57317- 5 #### [facility] ([id number]) [address], [address] [place] [address] Calcium [Mass/Vol] 9.2 mg/dL Normal 8.5-10.5 [facility] Comment on above: Performed By: #### C BCA, CMP, 38731-8, 43838-7, 2777-1, 62851- 5 #### [facility] ([id number]) [address], [address] [place] [address] Chloride [Moles/Vol] 103 mmol/L Normal 98-109 [facility] Comment on above: Performed By: #### C BCA, CMP, 02048-4, 01460-8, 2777-1, 97622- 5 #### [facility] ([id number]) [address], [facility] [address] [place] [address] CO2 [Moles/Vol] 20 mmol/L Low 22-32 [facility] Comment on above: Performed By: #### C BCA, CMP, 70514-4, 37104-3, 2777-1, 09667- 5 #### [facility] ([id number]) [address] [address] [place] [address] Creatinine [Mass/Vol] 0.34 mg/dL Low 0.40-1.00 [facility] Comment on above: Result Comment: METH OD TRACEABLE TO IDMS STANDARD Performed By: #### C BCA, CMP, 49085-5, 66628-9, 2777-1, 77076-7 #### [facility] ([id number]) [address] [address] [place] [address] eGFR (CKD-EPI) NON-RACE DEPENDENT >90 Normal >59 [facility] Comment on above: Result Comment: Reported eGFR is based on the CKD-EPI 2020 equation that does not use a race coefficient. Performed By: #### C BCA, CMP, 41676-0, 37936-6, 2777-1, 38541-0 #### [facility] ([id number]) [address] [address] [place] [address] Glucose [Mass/Vol] 115 mg/dL High 65-99 [facility] Comment on above: Performed By: #### C BCA, CMP, 57132-1, 86672-1, 2777-1, 95520- 5 #### [facility] ([id number]) [address] [address] Potassium [Moles/Vol] 3.5 mmol/L Normal 3.5-5.0 [facility] Comment on above: Performed By: #### C BCA, CMP, 96927-6, 79973-5, 2777-1, 27458- 5 #### [facility] ([id number]) [address] [place] [address] Protein [Mass/Vol] 6.1 g/dL Normal 6.0-8.0 [facility] Comment on above: Performed By: #### C BCA, CMP, 93114-4, 61587-3, 2777-1, 84551- 5 #### [facility] ([id number]) [address] [place] [address] Sodium [Moles/Vol] 137 mmol/L Normal 134-146 [facility] Comment on above: Performed By: #### C BCA, CMP, 54449-5, 45692-0, 2777-1, 73121- 5 #### [facility] ([id number]) [address] [place] [address] Urea nitrogen [Mass/Vol] 7 mg/dL Normal 5-23 [facility] Comment on above: Performed By: #### C BCA, CMP, 36035-2, 56586-9, 2777-1, 33263- 5 #### [facility] ([id number]) [address], [address] [place] [address] DIGOXINon 06-17-2024 Digoxin [Mass/Vol] 1.1 ng/mL Normal 0.8-2.0 [facility] Comment on above: Performed By: #### C BCA, CMP, 51870-1, 94833-4, 2777-1, 02190- 5 #### [facility] ([id number]) [address], [address] [place] [address] Glucose Glucometer ([facility]) [M ass/Vol]on 06-17-2024 Glucose [Mass/Vol] 137 mg/dL High 65-99 [facility] Glucose [Mass/Vol] 147 mg/dL High 65-99 [facility] Glucose [Mass/Vol] 125 mg/dL High 65-99 [facility] Glucose [Mass/Vol] 106 mg/dL High 65-99 [facility] MAGNESIUMon 06-17-2024 Magnesium [Mass/Vol] 1.7 mg/dL Low 1.8-2.6 [facility] Comment on above: Performed By: #### D GODOY #### [facility] ([id number]) [address], [address] [place] [address] POTASSIUMon 06-17-2024 Potassium [Moles/Vol] 4.0 mmol/L Normal 3.5-5.0 [facility] Comment on above: Performed By: #### D GODOY #### [facility] ([id number]) [address], [address] [place] [address] Potassium [Moles/Vol] 3.5 mmol/L Normal 3.5-5.0 [facility] Comment on above: Performed By: #### C BCA, CMP, 66913-8, 36722-7, 2777-1, 62299- 5 #### [facility] ([id number]) [address], [address] [place] [address] COMPREHENSIVE METABOLIC PANE Ab 06-16-2024 Albumin [Mass/Vol] 3.6 g/dL Normal 3.2-5.3 [facility] Comment on above: Performed By: #### C BCA, CMP, 48857-1, 11534-9, 2777-1, 28004- 5 #### [facility] ([id number]) [address] [address] [place] [address] ALP [Catalytic activity/Vol] 63 U/L Normal 39-130 [facility] Comment on above: Performed By: #### C BCA, CMP, 47795-4, 25394-3, 2777-1, 40518- 5 #### [facility] ([id number]) [address], [address] [place] [address] ALT [Catalytic activity/Vol] 8 U/L Normal 0-31 [facility] Comment on above: Performed By: #### C BCA, CMP, 10210-9, 28718-5, 2777-1, 81009- 5 #### [facility] ([id number]) [address], [address] [place] [address] Anion gap [Moles/Vol] 11 mmol/L Normal 5-15 [facility] Comment on above: Performed By: #### C BCA, CMP, 12559-5, 66928-4, 2777-1, 39950- 5 #### [facility] ([id number]) [address], [address] [place] [address] AST [Catalytic activity/Vol] 15 U/L Normal 0-41 [facility] Comment on above: Performed By: #### C BCA, CMP, 86323-4, 48227-7, 2777-1, 79670- 5 #### [facility] ([id number]) [address], [address] [place] [address] Bilirubin [Mass/Vol] 0.4 mg/dL Normal 0.3-1.2 [facility] Comment on above: Performed By: #### C BCA, CMP, 85882-1, 76755-9, 2777-1, 26364- 5 #### [facility] ([id number]) [address], [address] [place] [address] Calcium [Mass/Vol] 8.9 mg/dL Normal 8.5-10.5 [facility] Comment on above: Performed By: #### C BCA, CMP, 02665-7, 66672-0, 2777-1, 88365- 5 #### [facility] ([id number]) [address], [address] [place] [address] Chloride [Moles/Vol] 104 mmol/L Normal 98-109 [facility] Comment on above: Performed By: #### C BCA, CMP, 59149-8, 76542-9, 2777-1, 00084- 5 #### [facility] ([id number]) [address] [address] [place] [address] CO2 [Moles/Vol] 22 mmol/L Normal 22-32 [facility] Comment on above: Performed By: #### C BCA, CMP, 71665-8, 70246-6, 2777-1, 47915- 5 #### [facility] ([id number]) [address] [address] Creatinine [Mass/Vol] 0.33 mg/dL Low 0.40-1.00 [facility] Comment on above: Result Comment: METH OD TRACEABLE TO IDMS STANDARD Performed By: #### C BCA, CMP, 27753-1, 66873-5, 2777-1, 00352-7 #### [facility] ([id number]) [address] [address] eGFR (CKD-EPI) NON-RACE DEPENDENT >90 Normal >59 [facility] Comment on above: Result Comment: Reported eGFR is based on the CKD-EPI 2020 equation that does not use a race coefficient. Performed By: #### C BCA, CMP, 18208-2, 25978-2, 2777-1, 25258-3 #### [facility] ([id number]) [address] [address] Glucose [Mass/Vol] 99 mg/dL Normal 65-99 [facility] Comment on above: Performed By: #### C BCA, CMP, 06723-3, 54432-3, 2777-1, 02313- 5 #### [facility] ([id number]) [address] [address] Potassium [Moles/Vol] 3.5 mmol/L Normal 3.5-5.0 [facility] Comment on above: Performed By: #### C BCA, CMP, 67612-1, 73569-1, 2777-1, 68364- 5 #### [facility] ([id number]) [address] [place] [address] Protein [Mass/Vol] 6.0 g/dL Normal 6.0-8.0 [facility] Comment on above: Performed By: #### C BCA, CMP, 71915-2, 68209-0, 2777-1, 52523- 5 #### [facility] ([id number]) [address], [address] [place] [address] Sodium [Moles/Vol] 137 mmol/L Normal 134-146 [facility] Comment on above: Performed By: #### C BCA, CMP, 02900-9, 63457-4, 2777-1, 37935- 5 #### [facility] ([id number]) [address] [place] [address] Urea nitrogen [Mass/Vol] 8 mg/dL Normal 5-23 [facility] Comment on above: Performed By: #### C BCA, CMP, 26032-3, 77166-9, 2777-1, 31150- 5 #### [facility] ([id number]) [address] [place] [address] Glucose Glucometer (BldC) [M ass/Vol]on 06-16-2024 Glucose [Mass/Vol] 141 mg/dL High 65-99 [facility] Glucose [Mass/Vol] 119 mg/dL High 65-99 [facility] Glucose [Mass/Vol] 111 mg/dL High 65-99 [facility] Glucose [Mass/Vol] 108 mg/dL High 65-99 [facility] Laboratory comment Víctor (Repo rt)on 06-16-2024 UNLISTED LAB TEST Sent to reference lab Normal [facility] GENERIC ORDERon 025 TEST NAME [facility] Normal [facility] TEST RESULT SEE COMMENTS 06/18/2024 03:43 PM Normal [facility] Comment on above: Result Comment: NOTE Test Result Flag Unit RefValue -- Flecainide, S 0.3 mcg/mL REFERENCE VALUE 0.2 - 1.0 (Therapeutic concentration, trough value), >1.0 (Toxic concentration, trough value) ADDITIONAL INFORMATION This test was developed and its performance characteristics determined by [facility] in a manner consistent with CLIA requirements. This test has not been cleared or approved by the U.S. Food and Drug Administration. Test Performed by: [facility] [address] [place] [address] Transfer Controller: Mino Cain Ph.D.; CLIA# [id number] DIGOXINon 06-15-2024 Digoxin [Mass/Vol] 0.4 ng/mL Low 0.8-2.0 [facility] Comment on above: Performed By: #### C BCA, [facility], 33332-1, 59655-6, 2777-1, 09358- 5 #### [facility] ([id number]) [address] [place] [address], [address] [place] [address] Glucose Glucometer (BldC) [M ass/Vol]on 06-15-2024 Glucose [Mass/Vol] 111 mg/dL High 65-99 [facility] Glucose [Mass/Vol] 106 mg/dL High 65-99 [facility] Glucose [Mass/Vol] 119 mg/dL High 65-99 [facility] Glucose [Mass/Vol] 91 mg/dL Normal 65-99 [facility] MAGNESIUMon 04-14-2025 Magnesium [Mass/Vol] 1.9 mg/dL Normal 1.8-2.6 [facility] Comment on above: Performed By: #### C SHERITA CMP, 72923-2, 27670-7, 2777-1, 42568- 5 #### [facility] ([id number]) [address], [address] [place] [address] Magnesium [Mass/Vol] 1.7 mg/dL Low 1.8-2.6 [facility] Comment on above: Performed By: #### C SHERITA, CMP, 51825-5, 91620-4, 2777-1, 23808- 5 #### [facility] ([id number]) [address] [place] [address] Magnesium [Mass/Vol] 1.9 mg/dL Normal 1.8-2.6 [facility] Comment on above: Performed By: #### Heather MAGALLON, CMP, 10166-2, 76044-5, 2777-1, 10655- 5 #### [facility] ([id number]) [address] [place] [address] [facility] ORDERon 04-14-2 025 TEST NAME [facility] TEST RESULT SEE COMMENTS 06/16/2024 02:04 PM [facility] Comment on above: Result Comment: NOTE Test Result Flag Unit RefValue -- Flecainide, S 0.4 mcg/mL REFERENCE VALUE 0.2 - 1.0 (Therapeutic concentration, trough value), >1.0 (Toxic concentration, trough value) ADDITIONAL INFORMATION This test was developed and its performance characteristics determined by [facility] in a manner consistent with CLIA requirements. This test has not been cleared or approved by the U.S. Food and Drug Administration. Test Performed by: [facility] [address] [place] [address] Transfer Controller: Mino Cain Ph.D.; CLIA# [id number] POTASSIUMon 06-15-2024 Potassium [Moles/Vol] 3.8 mmol/L Normal 3.5-5.0 [facility] Comment on above: Performed By: #### C BCA, CMP, 10871-6, 88144-9, 2777-1, 23857- 5 #### [facility] ([id number]) [address], [address] [place] [address] Potassium [Moles/Vol] 3.7 mmol/L Normal 3.5-5.0 [facility] Comment on above: Performed By: #### C BCA, CMP, 27788-1, 33901-7, 2777-1, 31090- 5 #### [facility] ([id number]) [address], [address] [place] [address] BASIC METABOLIC PANLon 06-14 Anion gap [Moles/Vol] 10 mmol/L Normal 5-15 [facility] Comment on above: Performed By: #### C BCA, CMP, 07521-8, 60911-5, 2777-1, 79620- 5 #### [facility] ([id number]) [address], [address] [place] [address] Calcium [Mass/Vol] 9.1 mg/dL Normal 8.5-10.5 [facility] Comment on above: Performed By: #### C BCA, CMP, 82136-7, 98888-7, 2777-1, 61734- 5 #### [facility] ([id number]) [address], [address] [place] [address] Chloride [Moles/Vol] 106 mmol/L Normal 98-109 [facility] Comment on above: Performed By: #### C BCA, CMP, 68406-9, 74465-9, 2777-1, 75223- 5 #### [facility] ([id number]) [address], [address] [place] [address] CO2 [Moles/Vol] 24 mmol/L Normal 22-32 [facility] Comment on above: Performed By: #### C BCA, CMP, 29803-4, 82307-8, 2777-1, 26211- 5 #### [facility] ([id number]) [address], [address] [address] Creatinine [Mass/Vol] 0.41 mg/dL Normal 0.40-1.00 [facility] Comment on above: Result Comment: METH OD TRACEABLE TO IDMS STANDARD Performed By: #### C BCA, CMP, 73697-9, 45903-1, 2777-1, 34950-4 #### [facility] ([id number]) [address] [address] eGFR (CKD-EPI) NON-RACE DEPENDENT >90 Normal >59 [facility] Comment on above: Result Comment: Reported eGFR is based on the CKD-EPI 2020 equation that does not use a race coefficient. Performed By: #### C BCA, CMP, 30232-4, 67873-2, 2777-1, 59954-3 #### [facility] ([id number]) [address] [place] [address] Glucose [Mass/Vol] 97 mg/dL Normal 65-99 [facility] Comment on above: Performed By: #### C BCA, CMP, 81192-7, 10804-0, 2777-1, 43763- 5 #### [facility] ([id number]) [address], [address] [place] [address] Potassium [Moles/Vol] 3.8 mmol/L Normal 3.5-5.0 [facility] Comment on above: Performed By: #### C BCA, CMP, 42828-5, 37024-1, 2777-1, 66158- 5 #### [facility] ([id number]) [address], [address] [place] [address] Sodium [Moles/Vol] 140 mmol/L Normal 134-146 [facility] Comment on above: Performed By: #### C BCA, CMP, 36213-3, 25591-3, 2777-1, 77333- 5 #### [facility] ([id number]) [address], [address] [place] [address] Urea nitrogen [Mass/Vol] 8 mg/dL Normal 5-23 [facility] Comment on above: Performed By: #### C BCA, CMP, 43016-9, 99745-0, 2777-1, 93631- 5 #### [facility] ([id number]) [address], [address] [place] [address] Glucose Glucometer (dC) [M ass/Vol]on 06-14-2024 Glucose [Mass/Vol] 114 mg/dL High 65-99 [facility] Glucose [Mass/Vol] 102 mg/dL High 65-99 [facility] Glucose [Mass/Vol] 111 mg/dL High 65-99 [facility] Glucose [Mass/Vol] 127 mg/dL High 65-99 [facility] MAGNESIUMon 06-14-2024 Magnesium [Mass/Vol] 1.7 mg/dL Low 1.8-2.6 [facility] Comment on above: Performed By: #### C BCA, CMP, 92502-8, 88968-7, 2777-1, 90575- 5 #### [facility] ([id number]) [address], [address] [place] [address] Magnesium [Mass/Vol] 1.6 mg/dL Low 1.8-2.6 [facility] Comment on above: Performed By: #### C BCA, CMP, 17521-8, 97178-6, 2777-1, 59690- 5 #### [facility] ([id number]) [address], [address] [place] [address] POTASSIUMon 06-14-2024 Potassium [Moles/Vol] 3.5 mmol/L Normal 3.5-5.0 [facility] Comment on above: Performed By: #### C BCA, CMP, 83898-7, 21069-1, 2777-1, 70375- 5 #### [facility] ([id number]) [address] [place] [address] Potassium [Moles/Vol] 3.5 mmol/L Normal 3.5-5.0 [facility] Comment on above: Performed By: #### C BCA, CMP, 11904-4, 11536-0, 2777-1, 38160- 5 #### [facility] ([id number]) [address], [address] [place] [address] BASIC METABOLIC PANLon 06-13 Anion gap [Moles/Vol] 10 mmol/L Normal 5-15 [facility] Comment on above: Performed By: #### C BCA, CMP, 83121-6, 38748-5, 2777-1, 77187- 5 #### [facility] ([id number]) [address], [address] [place] [address] Calcium [Mass/Vol] 8.9 mg/dL Normal 8.5-10.5 [facility] Comment on above: Performed By: #### C BCA, CMP, 28514-1, 75829-2, 2777-1, 31197- 5 #### [facility] ([id number]) [address], [address] [place] [address] Chloride [Moles/Vol] 106 mmol/L Normal 98-109 [facility] Comment on above: Performed By: #### C BCA, CMP, 31133-0, 84436-2, 2777-1, 89659- 5 #### [facility] ([id number]) [address], [address] [place] [address] CO2 [Moles/Vol] 24 mmol/L Normal 22-32 [facility] Comment on above: Performed By: #### C BCA, CMP, 78978-2, 31842-2, 2777-1, 37592- 5 #### [facility] ([id number]) [address], [facility] [address] [place] [address] Creatinine [Mass/Vol] 0.42 mg/dL Normal 0.40-1.00 [facility] Comment on above: Result Comment: METH OD TRACEABLE TO IDMS STANDARD Performed By: #### C BCA, CMP, 69710-0, 35477-1, 2777-1, 76318-1 #### [facility] ([id number]) [address], [address] [place] [address] eGFR (CKD-EPI) NON-RACE DEPENDENT >90 Normal >59 [facility] Comment on above: Result Comment: Reported eGFR is based on the CKD-EPI 2020 equation that does not use a race coefficient. Performed By: #### C BCA, CMP, 83137-9, 03471-0, 2777-1, 81176-3 #### [facility] ([id number]) [address], [address] [place] [address] Glucose [Mass/Vol] 95 mg/dL Normal 65-99 [facility] Comment on above: Performed By: #### C BCA, CMP, 91198-1, 72467-8, 2777-1, 89644- 5 #### [facility] ([id number]) [address], [address] [place] [address] Potassium [Moles/Vol] 3.4 mmol/L Low 3.5-5.0 [facility] Comment on above: Performed By: #### C BCA, CMP, 24559-5, 28689-2, 2777-1, 14132- 5 #### [facility] ([id number]) [address] [place] [address] Sodium [Moles/Vol] 140 mmol/L Normal 134-146 [facility] Comment on above: Performed By: #### C BCA, CMP, 63003-1, 17190-5, 2777-1, 16970- 5 #### [facility] ([id number]) [address] [place] [address] Urea nitrogen [Mass/Vol] 6 mg/dL Normal 5-23 [facility] Comment on above: Performed By: #### C BCA, CMP, 87174-3, 39437-9, 2777-1, 37831- 5 #### [facility] ([id number]) [address] [place] [address] Glucose Glucometer (BldC) [M ass/Vol]on 06-13-2024 Glucose [Mass/Vol] 100 mg/dL High 65-99 [facility] Glucose [Mass/Vol] 126 mg/dL High 65-99 [facility] Glucose [Mass/Vol] 123 mg/dL High 65-99 [facility] Glucose [Mass/Vol] 94 mg/dL Normal 65-99 [facility] MAGNESIUMon 06-13-2024 Magnesium [Mass/Vol] 2.1 mg/dL Normal 1.8-2.6 [facility] Comment on above: Performed By: #### C BCA, CMP, 14741-3, 75603-6, 2777-1, 43948- 5 #### [facility] ([id number]) [address], [address] [place] [address] Magnesium [Mass/Vol] 1.5 mg/dL Low 1.8-2.6 [facility] Comment on above: Performed By: #### C BCA, CMP, 90948-5, 30106-7, 2777-1, 71956- 5 #### [facility] ([id number]) [address] [place] [address] POTASSIUMon 06-13-2024 Potassium [Moles/Vol] 3.5 mmol/L Normal 3.5-5.0 [facility] Comment on above: Performed By: #### C BCA, CMP, , 65226-5, 2777-1, 85757- 5 #### [facility] ([id number]) [address] [place] [address] BASIC METABOLIC PANLon 06-12 Anion gap [Moles/Vol] 10 mmol/L Normal 5-15 [facility] Comment on above: Performed By: #### Jahaira CHAN, #### [facility] ([id number]) [address] [place] [address] Calcium [Mass/Vol] 9.1 mg/dL Normal 8.5-10.5 [facility] Comment on above: Performed By: #### Jahaira CHAN, #### [facility] ([id number]) [address], [address] [place] [address] Chloride [Moles/Vol] 107 mmol/L Normal 98-109 [facility] Comment on above: Performed By: #### Jahaira CHAN, #### [facility] ([id number]) [address], [address] [place] [address] CO2 [Moles/Vol] 24 mmol/L Normal 22-32 [facility] Comment on above: Performed By: #### B ROCIO, #### [facility] ([id number]) [address], [address] [place] [address] Creatinine [Mass/Vol] 0.42 mg/dL Normal 0.40-1.00 [facility] Comment on above: Result Comment: METH OD TRACEABLE TO IDMS STANDARD Performed By: #### Jahaira CHAN, #### [facility] ([id number]) [address], [address] [place] [address] eGFR (CKD-EPI) NON-RACE DEPENDENT >90 Normal >59 [facility] Comment on above: Result Comment: Reported eGFR is based on the CKD-EPI 2020 equation that does not use a race coefficient. Performed By: #### Jahaira CHAN, #### [facility] ([id number]) [address], [address] [place] [address] Glucose [Mass/Vol] 94 mg/dL Normal 65-99 [facility] Comment on above: Performed By: #### Jahaira CHAN, #### [facility] ([id number]) [address], [address] [place] [address] Potassium [Moles/Vol] 3.3 mmol/L Low 3.5-5.0 [facility] Comment on above: Performed By: #### Jahaira CHAN, #### [facility] ([id number]) [address], [address] [place] [address] Sodium [Moles/Vol] 141 mmol/L Normal 134-146 [facility] Comment on above: Performed By: #### Jahaira CHAN, #### [facility] ([id number]) [address], [address] [place] [address] Urea nitrogen [Mass/Vol] 5 mg/dL Normal 5-23 [facility] Comment on above: Performed By: #### Jahaira CHAN, #### [facility] ([id number]) [address], [address] [place] [address] DIGOXINon 06-12-2024 Digoxin [Mass/Vol] 0.4 ng/mL Low 0.8-2.0 [facility] Comment on above: Performed By: #### C BCA, CMP, 38119-6, 94455-5, 2777-1, 10759- 5 #### [facility] ([id number]) [address] [place] [address] Glucose 1 Hr post dose gluco se [Mass/Vol]on 06-12-2024 1ST HR GTT 187 mg/dL High 120-170 [facility] Comment on above: Performed By: #### C BCA, CMP, 57055-5, 91088-6, 2777-1, 46205- 5 #### [facility] ([id number]) [address], [address] [place] [address] Glucose 2 Hr post 100 g gluc ose PO [Mass/Vol]on 06-12-2024 2ND HR GTT 100GM LOAD 175 mg/dL High 70-139 [facility] Comment on above: Result Comment: Fourth International Workshop Conference: Recommendations and Rationale for Screening and Diagnosis of Gestational Diabetes Mellitus 2 or more of the following must be met or exceeded for a positive diagnosis. FASTING >=95mg/dL 1hr post 100g load >=180mg/dL 2hr post 100g load >=155mg/dL 3hr post 100g load >=140mg/dL Performed By: #### C BCA, CMP, 30762-3, 66820-9, 2777-1, 77385-9 #### [facility] ([id number]) [address] [place] [address] Glucose 3 Hr post dose gluco se [Mass/Vol]on 06-12-2024 3RD HR GTT 123 mg/dL High 65-99 [facility] Comment on above: Performed By: #### C BCA, CMP, 07760-8, 08453-0, 2777-1, 58916- 5 #### [facility] ([id number]) [address], [address] [place] [address] Glucose Glucometer (BldC) [M ass/Vol]on 06-12-2024 Glucose [Mass/Vol] 118 mg/dL High 65-99 [facility] Glucose [Mass/Vol] 114 mg/dL High 65-99 [facility] Glucose [Mass/Vol] 102 mg/dL High 65-99 [facility] Glucose post fast [Mass/Vol] on 06-12-2024 FASTING GTT 95 mg/dL Normal 65-99 [facility] Comment on above: Performed By: #### 1 558-6 #### [facility] ([id number]) [address] [place] [address] MAGNESIUMon 06-12-2024 Magnesium [Mass/Vol] 1.9 mg/dL Normal 1.8-2.6 [facility] Comment on above: Performed By: #### C SHERITA, CMP, 68500-9, 72086-6, 2777-1, 47499- 5 #### [facility] ([id number]) [address], [address] [place] [address] Magnesium [Mass/Vol] 1.4 mg/dL Low 1.8-2.6 [facility] Comment on above: Performed By: #### C BCA, CMP, 69413-9, 43650-0, 2777-1, 21428- 5 #### [facility] ([id number]) [address], [address] [place] [address] POTASSIUMon 06-12-2024 Potassium [Moles/Vol] 3.4 mmol/L Low 3.5-5.0 [facility] Comment on above: Performed By: #### C BCA, CMP, 73398-7, 29378-4, 2777-1, 34292- 5 #### [facility] ([id number]) [address], [address] [place] [address] CBC AND AUTO DIFFon 06-12-19 25 ABSOLUTE BASOPHIL 0.0 X10E9/L Normal 0.0-0.2 [facility] Comment on above: Performed By: #### C BCA, CMP, 99178-8, 25478-1, 2777-1, 18932- 5 #### [facility] ([id number]) [address], [address] [place] [address] ABSOLUTE NEUTROPHIL 6.7 X10E9/L High 1.5-6.6 [facility] Comment on above: Performed By: #### C BCA, CMP, 69398-9, 76713-7, 7-1, 18512- 5 #### [facility] ([id number]) [address], [address] [place] [address] Basophils/100 WBC (Bld) 0.4 % Normal [facility] Comment on above: Performed By: #### C BCA, CMP, 55794-9, 45627-9, 2777-1, 01519- 5 #### [facility] ([id number]) [address], [address] [place] [address] Eosinophils (Bld) [#/Vol] 0.0 10*3/uL Normal 0.0-0.4 [facility] Comment on above: Performed By: #### C BCA, CMP, 97545-4, 41183-2, 2777-1, 67425- 5 #### [facility] ([id number]) [address], [address] [place] [address] Eosinophils/100 WBC (Bld) 0.4 % Normal [facility] Comment on above: Performed By: #### C BCA, CMP, 48589-7, 42475-8, 2777-1, 81732- 5 #### [facility] ([id number]) [address], [address] [place] [address] Erythrocyte distribution width (RBC) [Ratio] 13.8 % Normal 11.5-15.0 [facility] Comment on above: Performed By: #### C BCA, CMP, 16634-9, 91020-1, 2777-1, 15178- 5 #### [facility] ([id number]) [address], [address] [place] [address] Hematocrit (Bld) [Volume fraction] 36.3 % Normal 35-47 [facility] Comment on above: Performed By: #### C BCA, CMP, 59010-1, 76374-9, 2777-1, 59055- 5 #### [facility] ([id number]) [address], [address] [place] [address] Hemoglobin (Bld) [Mass/Vol] 12.3 g/dL Normal 11.7-15.5 [facility] Comment on above: Performed By: #### C BCA, CMP, 96247-4, 60351-4, 2777-1, 76359- 5 #### [facility] ([id number]) [address], [address] [place] [address] Lymphocytes (Bld) [#/Vol] 1.6 10*3/uL Normal 1.0-3.5 [facility] Comment on above: Performed By: #### C BCA, CMP, 23521-3, 18626-6, 2777-1, 52677- 5 #### [facility] ([id number]) [address], [address] [place] [address] Lymphocytes/100 WBC (Bld) 18.3 % Normal [facility] Comment on above: Performed By: #### C BCA, CMP, 68210-7, 54124-0, 2777-1, 84031- 5 #### [facility] ([id number]) [address], [address] [place] [address] MCH (RBC) [Entitic mass] 28.6 pg Normal 27-34 [facility] Comment on above: Performed By: #### C BCA, CMP, 56084-6, 92861-2, 2777-1, 62136- 5 #### [facility] ([id number]) [address], [address] [place] [address] MCHC (RBC) [Mass/Vol] 33.8 g/dL Normal 32-36 [facility] Comment on above: Performed By: #### C BCA, CMP, 23370-6, 68164-1, 2777-1, 15802- 5 #### [facility] ([id number]) [address], [address] [place] [address] MCV (RBC) [Entitic vol] 85 fL Normal 80-100 [facility] Comment on above: Performed By: #### C BCA, CMP, 06521-9, 30338-8, 2777-1, 53722- 5 #### [facility] ([id number]) [address], [address] [place] [address] Monocytes (Bld) [#/Vol] 0.5 10*3/uL Normal 0-0.9 [facility] Comment on above: Performed By: #### C BCA, CMP, 87994-7, 68878-1, 2777-1, 49583- 5 #### [facility] ([id number]) [address], [address] [place] [address] Monocytes/100 WBC (Bld) 5.7 % Normal [facility] Comment on above: Performed By: #### C BCA, CMP, 14055-8, 02988-2, 2777-1, 28581- 5 #### [facility] ([id number]) [address], [address] [place] [address] Neutrophils/100 WBC (Bld) 75.2 % Normal [facility] Comment on above: Performed By: #### C BCA, CMP, 08705-4, 90890-5, 2777-1, 58705- 5 #### [facility] ([id number]) [address], [address] [place] [address] Platelet mean volume (Bld) [Entitic vol] 7.1 fL Normal 7-12 [facility] Comment on above: Performed By: #### C BCA, CMP, 13095-7, 47709-8, 2777-1, 41791- 5 #### [facility] ([id number]) [address], [address] [place] [address] Platelets (Bld) [#/Vol] 231 10*3/uL Normal 150-450 [facility] Comment on above: Performed By: #### C BCA, CMP, 29238-0, 91806-4, 2777-1, 33769- 5 #### [facility] ([id number]) [address], [address] [place] [address] RBC COUNT 4.30 X10E12/L Normal 3.80-5.20 [facility] Comment on above: Performed By: #### C BCA, CMP, 45770-4, 06688-6, 2777-1, 17597- 5 #### [facility] ([id number]) [address] [address] [place] [address] WBC (Bld) [#/Vol] 8.9 10*3/uL Normal 4.0-11.0 [facility] Comment on above: Performed By: #### C BCA, CMP, 30332-9, 62897-9, 2777-1, 93229- 5 #### [facility] ([id number]) [address], [address] [place] [address] COMPREHENSIVE METABOLIC PANE Ab 06-11-2024 Albumin [Mass/Vol] 3.6 g/dL Normal 3.2-5.3 [facility] Comment on above: Performed By: #### C BCA, CMP, 33734-0, 71197-5, 2777-1, 30568- 5 #### [facility] ([id number]) [address], [address] [place] [address] ALP [Catalytic activity/Vol] 64 U/L Normal 39-130 [facility] Comment on above: Performed By: #### C BCA, CMP, 30060-5, 90216-8, 2777-1, 66870- 5 #### [facility] ([id number]) [address], [address] [place] [address] ALT [Catalytic activity/Vol] 10 U/L Normal 0-31 [facility] Comment on above: Performed By: #### C BCA, CMP, 94750-5, 53259-5, 2777-1, 65645- 5 #### [facility] ([id number]) [address], [address] [place] [address] Anion gap [Moles/Vol] 12 mmol/L Normal 5-15 [facility] Comment on above: Performed By: #### C BCA, CMP, 23570-5, 34931-0, 2777-1, 12718- 5 #### [facility] ([id number]) [address], [address] [place] [address] AST [Catalytic activity/Vol] 18 U/L Normal 0-41 [facility] Comment on above: Performed By: #### C BCA, CMP, 16304-8, 06911-1, 2777-1, 68346- 5 #### [facility] ([id number]) [address], [address] [place] [address] Bilirubin [Mass/Vol] 0.2 mg/dL Low 0.3-1.2 [facility] Comment on above: Performed By: #### C BCA, CMP, 96798-6, 39208-8, 2777-1, 49451- 5 #### [facility] ([id number]) [address], [address] [place] [address] Calcium [Mass/Vol] 8.8 mg/dL Normal 8.5-10.5 [facility] Comment on above: Performed By: #### C BCA, CMP, 20221-7, 70768-4, 2777-1, 57355- 5 #### [facility] ([id number]) [address], [address] [place] [address] Chloride [Moles/Vol] 109 mmol/L Normal 98-109 [facility] Comment on above: Performed By: #### C BCA, CMP, 02299-8, 58113-7, 2777-1, 48945- 5 #### [facility] ([id number]) [address], [address] [place] [address] CO2 [Moles/Vol] 20 mmol/L Low 22-32 [facility] Comment on above: Performed By: #### C BCA, CMP, 98849-2, 20479-3, 2777-1, 36305- 5 #### [facility] ([id number]) [address], [address] [place] [address] Creatinine [Mass/Vol] 0.44 mg/dL Normal 0.40-1.00 [facility] Comment on above: Result Comment: METH OD TRACEABLE TO IDMS STANDARD Performed By: #### C BCA, CMP, 79536-6, 61724-3, 2777-1, 44564-9 #### [facility] ([id number]) [address], [address] [place] [address] eGFR (CKD-EPI) NON-RACE DEPENDENT >90 Normal >59 [facility] Comment on above: Result Comment: Reported eGFR is based on the CKD-EPI 2020 equation that does not use a race coefficient. Performed By: #### C BCA, CMP, 66850-3, 76213-6, 2777-1, 97834-0 #### [facility] ([id number]) [address], [address] [place] [address] Glucose [Mass/Vol] 79 mg/dL Normal 65-99 [facility] Comment on above: Performed By: #### C BCA, CMP, 51945-3, 14345-4, 2777-1, 50092- 5 #### [facility] ([id number]) [address], [address] [place] [address] Potassium [Moles/Vol] 3.4 mmol/L Low 3.5-5.0 [facility] Comment on above: Performed By: #### C BCA, CMP, 73289-6, 32711-0, 2777-1, 98852- 5 #### [facility] ([id number]) [address], [address] [place] [address] Protein [Mass/Vol] 6.2 g/dL Normal 6.0-8.0 [facility] Comment on above: Performed By: #### C BCA, CMP, 11338-9, 86212-8, 2777-1, 50160- 5 #### [facility] ([id number]) [address], [address] [place] [address] Sodium [Moles/Vol] 141 mmol/L Normal 134-146 [facility] Comment on above: Performed By: #### C BCA, CMP, 67171-5, 33216-7, 2777-1, 22050- 5 #### [facility] ([id number]) [address], [address] [place] [address] Urea nitrogen [Mass/Vol] 5 mg/dL Normal 5-23 [facility] Comment on above: Performed By: #### C BCA, CMP, 21945-4, 20530-2, 2777-1, 74735- 5 #### [facility] ([id number]) [address], [address] [place] [address] DRUG SCREEN, URINEon 025 AMPHETAMINE/METHAMP Negative Normal NEG [facility] Comment on above: Result Comment: AMPH /METH screening cut off = 1000 ng/mL Performed By: #### D GODOY #### [facility] ([id number]) [address] [place] [address] BARBITURATES Negative Normal NEG [facility] Comment on above: Result Comment: Jacqueline iturates screening cut off value = 200 ng/mL Performed By: #### D GODOY #### [facility] ([id number]) [address] [place] [address] BENZODIAZEPINES Negative Normal NEG [facility] Comment on above: Result Comment: Jayjay odiazepines screening cut off value = 200 ng/mL Performed By: #### D GODOY #### [facility] ([id number]) [address] [place] [address] CANNABINOIDS Negative Normal NEG [facility] Comment on above: Result Comment: Brandon abinoids/THC screening cut off value = 50 ng/mL Performed By: #### D GODOY #### [facility] ([id number]) [address] [place] [address] COCAINE METABOLITE Negative Normal NEG [facility] Comment on above: Result Comment: Coca ine screening cut off value = 300 ng/mL Performed By: #### D GODOY #### [facility] ([id number]) [address], [address] [place] [address] ECSTASY Negative Normal NEG [facility] Comment on above: Result Comment: Ecst asy screening cut off value = 500 ng/mL This report is intended for use in clinical monitoring or management of patients. Performed By: #### D GODOY #### [facility] ([id number]) [address], [address] [place] [address] METHADONE Negative Normal NEG [facility] Comment on above: Result Comment: Meth adone screening cut off value = 300 ng/mL. Performed By: #### D GODOY #### [facility] ([id number]) [address], [address] [place] [address] OPIATES Negative Normal NEG [facility] Comment on above: Result Comment: Opia beni screening cut off value = 300 ng/mL NOTE: This test is used for the detection of codeine, hydrocodone (>1000 ng/mL), morphine and hydromorphone (>900 ng/mL) in urine. Performed By: #### D GODOY #### [facility] ([id number]) [address], [address] [place] [address] OXYCODONE Negative Normal NEG [facility] Comment on above: Result Comment: Oxyc odone screening cut off value = 300 ng/mL NOTE: This test is used for the detection of oxycodone and oxymorphone in urine. Performed By: #### D GODOY #### [facility] ([id number]) [address], [address] [place] [address] PHENCYCLIDINE Negative Normal NEG [facility] Comment on above: Result Comment: Phen cyclidine screening cut off value = 25 ng/mL Performed By: #### D GODOY #### [facility] ([id number]) [address] [place] [address] MAGNESIUMon 06-11-2024 Magnesium [Mass/Vol] 1.7 mg/dL Low 1.8-2.6 [facility] Comment on above: Performed By: #### C BCA, CMP, 96507-4, 97308-7, 2777-1, 45412- 5 #### [facility] ([id number]) [address], [address] [place] [address] PHOSPHORUSon 06-11-2024 Phosphate [Mass/Vol] 4.0 mg/dL Normal 2.4-4.9 [facility] Comment on above: Performed By: #### C BCA, CMP, 72245-0, 88043-2, 2777-1, 83771- 5 #### [facility] ([id number]) [address], [address] [place] [address] T. pallidum IgG+IgM IA Ql (S )on 06-11-2024 Syphilis Total <0.2 Normal 0.0-0.8 [facility] Comment on above: Result Comment: NON REACTIVE No serologic evidence of infection to Treponema pallidum (syphilis). Repeat testing may be considered in patients with suspected acute or primary syphilis in 2 to 4 weeks. Performed By: #### C SHERITA, ROSA, 05378-3, 18362-6, 2777-1, 89019-9 #### [facility] ([id number]) [address] [facility] [place] [address] Ultrasound - OfficeOrdered B y: Ravinder Burnett on 06-11-2024 Radiology Study observation (narrative) [facility] Ultrasound - Officeon 2024 Radiology Study observation (narrative) [facility] Vitamin D+Metabolites [Mass/ Vol]on 06-11-2024 VITAMIN D 25 HYD TOT 23.3 ng/mL Low 30-100 [facility] Comment on above: Result Comment: Vitamin D status 25 [place] Vitamin D Deficiency <20 ng/mL Insufficiency 20-29 ng/mL Sufficiency 30-100 ng/mL Toxicity >100 ng/mL NOTE: A pediatric reference range has not been established by the puddler pile driving of this kit. The [place] [employer] recommends a Vitamin D level of = or >20ng/mL in infants and children. Performed By: #### C SHERITA, ROSA, 33301-7, 60313-3, 2777-1, 51345-5 #### [facility] ([id number]) [address] [place] [address] ALL CBC WITH AUTO DIFFon BASOPHILS ABSOLUTE AUTO 0 [facility] Basophils/100 WBC (Bld) 0.2 % 0.2 - 2.0 % [facility] Eosinophils/100 WBC (Bld) 0.6 % Low 0.9 - 7.0 % [facility] Erythrocyte distribution width (RBC) [Ratio] 13.6 % 11.0 - 15.0 % [facility] Hematocrit (Bld) [Volume fraction] 36.1 % 36.0 - 48.0 % [facility] Hemoglobin (Bld) [Mass/Vol] 12.2 g/dL 12.0 - 16.0 g/dL [facility] IMMATURE GRANULOCYTES ABS AUTO 0.06 High [facility] Immature granulocytes/100 WBC (Bld) 0.7 % High 0.0 - 0.5 % [facility] Interpretation and review of laboratory results Abnormal [facility] LYMPHOCYTES ABSOLUTE AUTO 1.7 [facility] Lymphocytes/100 WBC (Bld) 19.5 % Low 20.5 - 60.0 % [facility] MCH (RBC) [Entitic mass] 29.1 pg 26.7 - 34.0 pg [facility] MCHC (RBC) [Mass/Vol] 33.8 g/dL 29.9 - 35.2 g/dL [facility] MCV (RBC) [Entitic vol] 86.2 fL 81.0 - 99.0 fL [facility] MONOCYTES ABSOLUTE AUTO 0.6 [facility] Monocytes/100 WBC (Bld) 6.4 % 1.7 - 12.0 % [facility] NEUTROPHILS ABSOLUTE AUTO 6.5 [facility] Neutrophils/100 WBC (Bld) 72.6 % 43.0 - 75.0 % [facility] Platelet mean volume (Bld) [Entitic vol] 9 fL Low 9.5 - 13.5 fL [facility] EO # 0.1 [facility] TB [address]T 257 [facility] e TB RBC 4.19 Low [facility] TB WBC 8[facility]9 [facility] No Panel Informationon 06-10 [facility] TSHon 06-10-2024 Thyroid Stimulating (3Rd Generation) Hormone/ Tsh 1.48 [facility] Urinalysis macro (dipstick) panel (U)on 06-10-2024 Bilirubin, UA Negative Negative - 4(70) +++ mg/dL [facility] Blood, UA Negative Negative - 50 Jordan/mcL [facility] Clarity, UA Clear [facility] Color, UA Yellow [facility] Glucose, UA Negative Negative - 2000(110) ++++ mg/dL [facility] Interpretation and review of laboratory results Normal [facility] Ketones, UA Negative Negative - 160(16) ++++ mg/dL [facility] Leukocytes, UA Negative Negative - 500+++ Leanne/mcL [facility] Nitrite, UA Negative Negative - Positive [facility] pH, UA 7 5 - 9 [facility] Protein, UA Negative Negative - 2000(20) ++++ mg/dL [facility] Spec Grav, UA 1.015 1 - 1.03 [facility] Urobilinogen, UA 0.2 0.2 - 12 mg/dL [facility] Ultrasound - Officeon 2024 [facility] US OB 14+ WEEKS ANATOMY SCAN on [...] II, MD, PHD at 13-May-2024 08:36:44 AM [facility] Normal Not Available Comment on above: Order Comment: US OB ANATOMY SINGLE W US OB CERVICAL LENGTH Estimated Date of Delivery: 09/04/24 Gestational Age as of 04/15/2024: 19w5d AFP, SERUM, OPEN SPINA BIFID Aon 05-07-2024 AFP MOM 1.00 . [facility] AFP VALUE 66.2 ng/mL . [facility] COMMENT: Comment . [facility] Comment on above: Fiona White , Ph.D., [facility] Director References: Available Upon Request. Multiples Of Median Cutoffs For AFP Elevations Ramírez 2.5 Black 2.8 IDD 2.0 Twins 4.5 Abbreviation Definitions IDD - Insulin Dep Diabetes OSBR - Open Spina Bifida Risk For further inquiries contact [employer] [facility] at [phone]. This test was developed and its performance characteristics determined by [facility]. It has not been cleared or approved by the Food and Drug Administration. Performed at: [address] [id number] Transfer Controller: Darlene Snyder [facility], Phone: [phone] GEST. AGE ON COLLECTION DATE 22.4 . weeks [facility] GESTAT. AGE BASED ON Ultrasound . [facility] Comment on above: 19.7 on 04/15/2024 Recalculations are not recommended when gestational dating by LMP and ultrasound are within 10 days. INSULIN DEP DIABETES No . [facility] Healthcare INTERPRETATION Comment . [facility] Healt hcare Comment on above: Interpretation: Scre en Negative [...] Customer Services to discuss available options. The [place] [employer] recommends amniocentesis be offered to women age 35 and older. [age] [facility] MULTIPLE GESTATION No . [facility] [place] [id number] . [facility] RACE . [facility] [employer] RESULTS Report . [facility] TEST RESULTS: Negative . [facility] [employer] care WEIGHT 195 . lbs [facility] N N ULTRASOUND [id number] N 1 195 N N N N N White/ [facility] IGP,APTIMA HPV,AGE GDLNon AGE GDLN ACOG TESTING Note . [facility] Comment on above: TESTS RESULT FLAG U NITS REF RANGE LAB Clinician Provided Cytology Information Source.............Cervix No. of containers..01 ThinPrep Vial Age Algo ACOG Beni... -01 04 FLAG LEGEND: L-Low Normal,H-High Normal,LL-Alert Low,HH-Alert High <-Panic Low,>-Panic High,A-Abnormal,AA-Critical Abnormal Performed at: 01 =G [facility] [place] [address] Ania Barnes MD, IGP, RFX APTIMA HPV ASCU Note . [facility] Comment on above: TESTS RESULT FLAG UN ITS REF RANGE LAB DIAGNOSIS: 02 NEGATIVE FOR INTRAEPITHELIAL LESION OR MALIGNANCY. Specimen adequacy: 02 Satisfactory for evaluation. No endocervical component is identified. Performed by: 02 Maria C Butler, Girl Friday ([facility]) . 02 Note: Note 02 The Pap [...] <-Panic Low,>-Panic High,A-Abnormal,AA-Critical Abnormal Performed at: [address] [id number] Ania Barnes MD, Performed at: =G - [facility] [address] [id number] Transfer Controller: Ania Barnes MD, Phone: [phone] Performed at: [facility] [address] [id number] Transfer Controller: Ania Barnes MD, Phone: [phone] SPATULA-ALONE CERVIX [facility] RECURRENT VAGINITIS (HTRX)on 04-17-2024 ATOPOBIUM VAGINAE 0 [facility] ATOPOBIUM VAGINAE Not detected [facility] BVAB 2,3 (BACTERIAL VAGINOSIS ASSOCIATED BACTERIA 2, 3); MOBILUNCUS SPP 0 [facility] BVAB 2,3 (BACTERIAL VAGINOSIS ASSOCIATED BACTERIA 2, 3); MOBILUNCUS SPP Not detected [facility] GIL ALBICANS, PARAPSILOSIS, TROPICALIS 0 [facility] GIL ALBICANS, PARAPSILOSIS, TROPICALIS Not detected [facility] GIL GLABRATA 0 [facility] GIL GLABRATA Not detected [facility] GIL KRUSEI 0 [facility] GIL KRUSEI Not detected [facility] [...] UA Negative Negative - 4(70) +++ mg/dL [facility] Blood, UA Negative Negative - 50 Jordan/mcL [facility] Clarity, UA Clear [facility] re Color, UA Yellow [facility] Glucose, UA Negative Negative - 1999(110) ++++ mg/dL [facility] Interpretation and review of laboratory results Normal [facility] Ketones, UA Negative Negative - 160(16) ++++ mg/dL [facility] Leukocytes, UA Negative Negative - 500+++ Leanne/mcL [facility] Nitrite, UA Negative Negative - Positive [facility] pH, UA 6.5 5 - 9 [facility] Protein, UA Negative Negative - 1999(20) ++++ mg/dL [facility] Spec Grav, UA 1.02 1 - 1.03 [facility] Urobilinogen, UA 1.0 0.2 - 12 mg/dL [facility] ALL CBC WITH AUTO DIFFon BASOPHILS ABSOLUTE AUTO 0.1 [facility] Basophils/100 WBC (Bld) 0.5 % 0.2 - 2.0 % [facility] Eosinophils/100 WBC (Bld) 0.4 % Low 0.9 - 7.0 % [facility] Erythrocyte distribution width (RBC) [Ratio] 12.4 % 11.0 - 15.0 % [facility] Hematocrit (Bld) [Volume fraction] 39.8 % 36.0 - 48.0 % [facility] e Hemoglobin (Bld) [Mass/Vol] 13.5 g/dL 12.0 - 16.0 g/dL [facility] IMMATURE GRANULOCYTES ABS AUTO 0.03 [facility] Immature granulocytes/100 WBC (Bld) 0.3 % 0.0 - 0.5 % [facility] Interpretation and review of laboratory results Abnormal [facility] LYMPHOCYTES ABSOLUTE AUTO 1.8 [facility] Lymphocytes/100 WBC (Bld) 16.2 % Low 20.5 - 60.0 % [facility] MCH (RBC) [Entitic mass] 28.8 pg 26.7 - 34.0 pg [facility] MCHC (RBC) [Mass/Vol] 33.9 g/dL 29.9 - 35.2 g/dL [facility] MCV (RBC) [Entitic vol] 85 fL 81.0 - 99.0 fL [facility] MONOCYTES ABSOLUTE AUTO 0.4 [facility] Monocytes/100 WBC (Bld) 3.8 % 1.7 - 12.0 % [facility] NEUTROPHILS ABSOLUTE AUTO 8.8 High [facility] Neutrophils/100 WBC (Bld) 78.8 % High 43.0 - 75.0 % [facility] Platelet mean volume (Bld) [Entitic vol] 9 fL Low 9.5 - 13.5 fL [facility] PLT 351 [facility] RBC 4.68 [facility] WBC 11.2 High [facility] Drug Screen, Urineon 024 Amphetamine/Methamphe tamine Negative [facility] Barbiturates Negative [facility] Benzodiazepines Negative [facility] Cocaine Metabolite Negative [facility] Methadone Negative [facility] Opiates Negative [facility] Oxycodone Negative [facility] Phencyclidine Negative [facility] Thc Marijuana, Urine Negative [facility] HIV 1&2 AB/AG Screen (P24 AG )on 02-14-2024 HIV 1&2 AB/AG Non-Reactive [facility] Hemoglobin A1con 02-14-2024 HbA1c (Bld) [Mass fraction] 4.8 % 4.0 - 6.0 % [facility] Hepatitis B surface antigeno n 02-14-2024 Hepatitis B Surface Antigen Negative [facility] No Panel Informationon 02-13 [facility] Rubella IGG immune statuson 02-14-2024 Rubella immune IgG immune [facility] Syphilis Total(Unknown Syphi lis Status)Ordered By: Ravinder Burnett on 02-14-2024 Syphilis [facility]-Re[facility] DRUG SCREEN RAPID (URINE )on 02-14-2024 AMPHETAMINE SCREEN URINE Negative NEGATIVE [facility] BARBITURATES SCREEN URINE Negative NEGATIVE [facility] BENZODIAZEPINES SCREEN URINE Negative NEGATIVE [facility] BUPRENORPHINE SCREEN URINE Negative NEGATIVE [facility] Comment on above: DRUG CLASS TEST [...] 300 ng/mL CANNABINOID SCREEN URINE Negative NEGATIVE [facility] COCAINE SCREEN URINE Negative NEGATIVE [facility] METHADONE SCREEN URINE Negative NEGATIVE [facility] METHAMPHETAMINES SCREEN URINE Negative NEGATIVE [facility] OPIATE SCREEN URINE Negative NEGATIVE [facility] OXYCODONE SCREEN URINE Negative NEGATIVE [facility] PHENCYCLIDINE SCREEN URINE Negative NEGATIVE [facility] TRICYCLIC ANTIDEPRESSANT URINE Negative NEGATIVE [facility] Type and screenon 02-14-2024 Abo/Rh(D) Positive [facility] HCG ( test) Ql (U)o n 02-11-2024 Interpretation and review of laboratory results Abnormal [facility] Preg Test, Ur Positive Negative [facility] Ultrasound - OfficeOrdered B y: Ravinder Burnett on 02-11-2024 [facility] Urinalysis macro (dipstick) panel (U)on 02-11-2024 Bilirubin, UA Negative Negative - 4(70) +++ mg/dL [facility] Blood, UA Negative Negative - 50 Jordan/mcL [facility] Clarity, UA Clear [facility] re Color, UA Yellow [facility] [facility] e Glucose, UA Negative Negative - 1999(110) ++++ mg/dL [facility] Interpretation and review of laboratory results Normal [facility] Ketones, UA Negative Negative - 160(16) ++++ mg/dL [facility] Leukocytes, UA Negative Negative - 500+++ Leanne/mcL [facility] Nitrite, UA Negative Negative - Positive [facility] pH, UA 6 5 - 9 [facility] e Protein, UA Negative Negative - 1999(20) ++++ mg/dL [facility] Spec Grav, UA 1.025 1 - 1.03 [facility] Urobilinogen, UA 0.2 0.2 - 12 mg/dL [facility] SARS-CoV-2 (COVID-19) RNA NA A+probe Ql (Resp)on 11-23-2021 SARS-CoV-2 (COVID-19) RNA RASHEED+probe Ql (Unsp spec) Positive [facility] Other Covid-19 PCR ([facility])on 11-03 SARS-CoV-2 (COVID-19) RNA RASHEED+probe Ql (Unsp spec) Not detected Normal NOT DETECTED [facility] Comment on above: Result Comment: This test is not yet approved or cleared by the [place] FDA. When there are no FDA-approved or cleared tests available, and other criteria are met, FDA can make tests available under an emergency access mechanism called an Emergency Use Authorization (EUA). The EUA for this test is supported by the [place] of Health and Human Service's (HHS's) declaration [...] consistent with SARS-CoV-2. Performed By: #### [facility] #### [facility] [address] [place] [address] Dr. Kaela Stewart Vital Signs Date Time Vital Sign Value Performing Clinician Facility 07-15-2024 17:02-0400 Body weight 89.81 kg Brandi Baer NP Work Phone: [facility] 07-15-2024 17:02-0400 Diastolic blood pressure 74 mm[Hg] Brandi Baer NP Work Phone: [facility] 07-15-2024 17:02-0400 Systolic blood pressure 116 mm[Hg] Brandi Baer NP Work Phone: [facility] 07-10-2024 10:37-0400 Body mass index (BMI) [Ratio] 34.84 kg/m2 Ania Fenton MD Work Phone: [facility] 07-10-2024 10:37-0400 Body weight 89.22 kg Ania Fenton MD Work Phone: [facility] 07-10-2024 10:37-0400 Diastolic blood pressure 70 mm[Hg] Ania Fenton MD Work Phone: [facility] 07-10-2024 10:37-0400 Systolic blood pressure 108 mm[Hg] Ania Fenton MD Work Phone: [facility] 07-06-2024 16:15-0400 Body mass index (BMI) [Ratio] 35.07 kg/m2 Holly Sheehan RN Work Phone: [facility] 07-06-2024 16:15-0400 Body weight 89.81 kg Holly Sheehan RN Work Phone: [facility] 06-30-2024 11:25-0400 Body weight 88.81 kg Ronald Sri DO Work Phone: [facility] 06-30-2024 11:25-0400 Diastolic blood pressure 72 mm[Hg] Ronald Sri DO Work Phone: [facility] 06-30-2024 11:25-0400 Systolic blood pressure 118 mm[Hg] Ronald Sri DO Work Phone: [facility] 06-11-2024 14:12-0400 Body height 160 cm Berto Suárez MD Work Phone: [facility] 06-11-2024 14:12-0400 Diastolic blood pressure 76 mm[Hg] Berto Suárez MD Work Phone: [facility] 06-11-2024 14:12-0400 Heart rate 111 /min Berto Suárez MD Work Phone: [facility] 06-11-2024 14:12-0400 Systolic blood pressure 119 mm[Hg] Berto Suárez MD Work Phone: [facility] 06-10-2024 15:58-0400 Body weight 92.76 kg Ronald Sri DO Work Phone: [facility] 06-10-2024 15:58-0400 Diastolic blood pressure 76 mm[Hg] Ronald Sri DO Work Phone: [facility] 06-10-2024 15:58-0400 Systolic blood pressure 114 mm[Hg] Ronald Sri DO Work Phone: [facility] 04-15-2024 16:36-0500 Body weight 88.63 kg Chelsea DIAZ Work Phone: [facility] 04-15-2024 16:36-0500 Diastolic blood pressure 66 mm[Hg] Chelsea DIAZ Work Phone: [facility] 04-15-2024 16:36-0500 Systolic blood pressure 110 mm[Hg] Chelsea DIAZ Work Phone: [facility] 04-04-2024 10:57-0500 Body height 157.48 cm [facility] 04-04-2024 10:57-0500 Body mass index (BMI) [Ratio] 35.4 kg/m2 [facility] 04-04-2024 10:57-0500 Body temperature 99.8 [degF] [facility] 04-04-2024 10:57-0500 Body weight 87.99 kg [facility] 04-04-2024 10:57-0500 Diastolic blood pressure 71 mm[Hg] [facility] 04-04-2024 10:57-0500 Heart rate 118 /min [facility] 04-04-2024 10:57-0500 Respiratory rate 16 /min [facility] 04-04-2024 10:57-0500 SaO2% (BldA) [Mass fraction] 98 % [facility] 04-04-2024 10:57-0500 Systolic blood pressure 101 mm[Hg] [facility] 03-16-2024 16:35-0500 Body weight 88.18 kg Ronald Sri DO Work Phone: [facility] 03-16-2024 16:35-0500 Diastolic blood pressure 68 mm[Hg] Ronald Sri DO Work Phone: [facility] 03-16-2024 16:35-0500 Systolic blood pressure 108 mm[Hg] Ronald Sri DO Work Phone: [facility] 02-11-2024 09:32-0500 Body weight 86.18 kg [facility] 02-11-2024 09:32-0500 Diastolic blood pressure 70 mm[Hg] [facility] Nurse [facility] 02-11-2024 09:32-0500 Systolic blood pressure 110 mm[Hg] [facility] 11-23-2021 14:10-0400 Body height 154.94 cm Marianna Moralez Other [facility] Other 11-23-2021 14:10-0400 Body mass index (BMI) [Ratio] 34.01 kg/m2 Marianna Moralez Other [facility] Other 11-23-2021 14:10-0400 Body temperature 99.8 [degF] Marianna Moralez Other [facility] Other 11-23-2021 14:10-0400 Body weight 81.65 kg Marianna Moralez Other [facility] Other 11-23-2021 14:10-0400 Respiratory rate 18 /min Marianna Moralez Other [facility] Other 11-23-2021 14:10-0400 SaO2% (BldA) [Mass fraction] 97 % Marianna Moralez Other [facility] Other Encounters Encounter Date Encounter Type Care Provider Facility Start: 07-15-2024 End: 07-15-2024 Office outpatient visit 15 minutes Brandi Baer CLINICAL BUSINESS MANAGER Work Phone: [facility] Comment on above: Third trimester preg marcie; 32 weeks gestation of Start: 07-15-2024 End: 07-15-2024 Bamboo flowsheet Brandi Baer CLINICAL BUSINESS MANAGER Work Phone: [facility] Start: 07-15-2024 End: 07-15-2024 Bamboo flowsheet Brandi Baer CLINICAL BUSINESS MANAGER Work Phone: [facility] Start: 07-10-2024 End: 07-10-2024 ambulatory ANIA C LUTZ [facility] Comment on above: GA: 32w0d Start: 07-06-2024 End: 07-06-2024 Orders Only Holly Sheehan RN Work Phone: [facility] Comment on above: Diet controlled gest [...] 06-29-2024 End: 06-29-2024 Documentation procedure Hayley Conner RDMS [facility] Start: 06-29-2024 End: 06-29-2024 Telephone encounter Mendy North RN [facility] Start: 06-26-2024 End: 06-26-2024 Orders Only Anahi Ragsdale RN [facility] Comment on above: Diet controlled gest ational diabetes mellitus (GDM) in third trimester (Primary Dx) Start: 06-24-2024 End: 06-28-2024 Evaluation and management of inpatient DARELL TAVERA [facility] Start: 06-24-2024 End: 06-24-2024 Evaluation and management of inpatient [facility] Start: 06-23-2024 End: 06-23-2024 Evaluation and management of inpatient [facility] Start: 06-22-2024 End: 06-22-2024 Telephone encounter Luther serrano Comment on above: Medication Problem Start: 06-22-2024 End: 06-28-2024 [facility] Start: 06-22-2024 End: 06-22-2024 Evaluation and management of inpatient [facility] Start: 06-21-2024 End: 06-21-2024 Telephone encounter Bhavani serrano Comment on above: patient update Start: 06-21-2024 End: 06-21-2024 Evaluation and management of inpatient [facility] Start: 06-20-2024 End: 06-20-2024 Evaluation and management of inpatient [facility] Start: 06-19-2024 End: 06-28-2024 Evaluation and management of inpatient [facility] Start: 06-18-2024 End: 06-18-2024 Evaluation and management of inpatient [facility] Start: 06-17-2024 End: 06-17-2024 Evaluation and management of inpatient [facility] Start: 06-16-2024 End: 06-16-2024 Evaluation and management of inpatient [facility] Start: 06-15-2024 End: 06-23-2024 [facility] Start: 06-15-2024 End: 06-15-2024 Evaluation and management of inpatient [facility] Start: 06-12-2024 End: 06-12-2024 Orders Only Veda Bonilla RN [facility] Comment on above: Supraventricular tac hycardia of fetus affecting management of (Primary Dx); Polyhydramnios affecting Start: 06-12-2024 End: 06-23-2024 Evaluation and management of inpatient ESTEFANI GRADY [facility] Start: 06-11-2024 End: 06-28-2024 Evaluation and management of inpatient VANESA SEGOVIA [facility] Start: 06-11-2024 End: 06-11-2024 Office consultation new/estab patient 80 min Berto Suárez MD Work Phone: [facility] Comment on above: 27 weeks gestation o f (Primary Dx); Supraventricular tachycardia of fetus affecting management of ; Polyhydramnios affecting ; Excessive growth affecting management of in second trimester, single or unspecified fetus Start: 06-11-2024 End: 06-11-2024 [facility] Start: 06-11-2024 End: 06-11-2024 Chart abstracting Scanning Provider External [facility] Start: 06-11-2024 End: 06-11-2024 ambulatory RONALD R SRI [facility] Start: 06-10-2024 End: 06-10-2024 ambulatory RONALD SRI Not Available Start: 06-10-2024 End: 06-10-2024 Office [...] End: 05-07-2024 Clinisync Result Encounter Chelsea Yamileth EMILY Work Phone: [facility] Unsolicited Start: 05-04-2024 End: 05-07-2024 Clinisync Result Encounter Chelsea Carson EMILY Work Phone: [facility] Unsolicited Start: 04-15-2024 End: 04-15-2024 ambulatory CHELSEA CARSON Not Available Start: 04-15-2024 End: 04-15-2024 Patient encounter procedure Chelsea Hensley PA Work Phone: [facility] Work Phone: Start: 04-15-2024 End: 04-15-2024 Periodic preventive med est patient 18-39 yrs Chelsea DIAZ Work Phone: [facility] Comment on above: Well woman exam with routine gynecological exam; Second trimester ; Vaginal discharge; STD exposure; 19 weeks gestation of ; Screening, , for anatomic survey Start: 04-15-2024 End: 04-15-2024 Bamboo flowsheet Chelsea Yamileth PA Work Phone: [facility] Start: 04-15-2024 End: 04-20-2024 Bamboo flowsheet Chelsea DIAZ Work Phone: [facility] Start: 04-15-2024 End: 04-20-2024 Clinisync Result Encounter Chelsea Hensley PA Work Phone: [facility] Unsolicited Start: 04-15-2024 End: 04-17-2024 External Result Encounter Chelsea DIAZ Work Phone: [facility] Unsolicited Start: 04-14-2024 End: 04-15-2024 Telephone encounter Chavez PINEDA Work Phone: [facility] Start: 04-04-2024 End: 04-04-2024 ambulatory [facility] Work Phone: Start: 04-04-2024 End: 04-04-2024 Patient encounter procedure [facility] [place] Work Phone: Start: 03-16-2024 End: 03-16-2024 ambulatory RONALD SRI Not Available Start: 03-16-2024 End: 03-16-2024 [...] 09-10-2023 End: 09-11-2023 Telephone encounter Chavez Queen SHINGLE CUTTER-MANAGEMENT PROFESSIONAL Work Phone: [facility] Start: 11-23-2021 End: 11-23-2021 ambulatory Marianna Moralez Other [facility] Other Start: 11-23-2021 Office outpatient ne w 30 minutes Marianna Moralez [facility] [place] Start: 11-28-2020 End: 11-28-[address] MECHELLE MOODY Facility:[facility]1 Procedures Date Procedure Procedure Detail Performing Clinician Start: 07-15-2024 Urnls dip stick/tabl et rgnt non-auto w/o micrscp Brandi Baer NP Work Phone: Start: 07-06-2024 Glucose quantitative blood xcpt reagent strip Michelle Valencia PA-C Work Phone: Start: 06-30-2024 Urnls dip stick/tabl et rgnt non-auto w/o micrscp Ronald Sri DO Work Phone: Start: 06-10-2024 ALL CBC WITH AUTO DIFF Ronlad Sri DO Work Phone: Start: 06-10-2024 Urnls [...] 02-14-2024 [facility] DRUG SCREEN RAPI D (URINE) [employer] Work Phone: Start: 02-11-2024 ULTRASOUND OFFICE Not I n System Ref Prov Start: 02-11-2024 End: 02-11-2024 Urnls dip stick/tablet rgnt non-auto w/o micrscp [employer] DO Work Phone: Start: 05-28-2022 Adult depression scr eening assessment Chavez Queen SHINGLE CUTTERSerstech Work Phone: Start: 12-15-2018 Microscopic observat ion [Identifier] in Cervix by Cyto stain Chavez Queen [employer]INGLE CUTTERSerstech Work Phone: Plan of Treatment Date Care Activity Detail Author Start: 07-10-2034 DTaP,Tdap and Td Vaccines (8 - Td or Tdap) DTaP,Tdap and Td Vaccines (8 - Td or Tdap) [email or web address] Start: 04-15-2027 Screening for malignant neoplasm of cervix Pap [facility]ear [email or web address] Start: 07-10-2025 Adult BMI Screening Adult BMI Screen ing [email or web address] Start: 07-10-2025 Tobacco Screening [facility]ening [email or web address] Start: 06-12-2025 End: 06-12-2025 US MFM with or without consult US MFM with or without consult Imaging Routine Supraventricular tachycardia of fetus affecting management of Polyhydramnios affecting Expected: 06/12/2025 (Approximate), Expires: 06/12/2025 [facility] Work Phone: Comment on above: Expected: 06/12/2025 (Approximate), Expires: 06/12/2025 Start: 06-11-2025 Adult BMI Screening [facility] Start: 06-11-2025 Tobacco Screening [facility]ening [email or web address] Start: 11-02-2024 Influenza vaccination Influenz a Vaccine (Season Ended) [facility] Start: 07-29-2024 End: 07-29-2024 Patient encounter procedure 07/29/2024 2:50 PM EDT Routine [facility] [address] [place] [address] Chelsea Carson PA [address] [place] [address] [facility] Start: 07-24-2024 End: 07-24-2024 Patient encounter procedure 07/24/2024 9:45 AM EDT Routine [facility] [address] [place] [phone] Margoth Tatum MD [address] [place] [phone] [facility] Start: 07-17-2024 End: 07-17-2024 Patient encounter procedure [facility] Start: 07-15-2024 End: 07-15-2024 Patient encounter procedure [facility] Comment on above: Arrived Start: 07-10-2024 End: 07-10-2024 ambulatory 07/10/2024 10:00 AM EDT Initial [address] [phone] Ania Fenton MD [address] [place] [address], [place] [address] [facility] Start: 07-06-2024 End: 07-06-2024 ambulatory 07/06/2024 1:30 PM EDT Support Visit Maternal- Medicine at [place] [address] [place] [phone] Berto Suárez MD [address], [address] [place] [address] Holly Sheehan, RN [address], [address] [place] [address] Migdalia Fernandez, RD [address], [address] [place] [address] [facility] at [facility] Start: 06-30-2024 End: 12-30-2024 US biophysical [...] AM EDT Routine [facility] [address] [place] [phone] Ronald Fierro, DO [address] [place] [address] Arrived [facility] Comment on above: Arrived Start: 06-24-2024 End: 06-24-2024 Patient encounter procedure 06/24/2024 2:50 PM EDT Routine [facility] [address] [place] [address] Ronald Fierro, DO [address] [place], [place] [phone] [facility] Start: 06-12-2024 End: 06-12-2024 Patient encounter procedure 06/12/2024 9:40 AM EDT Office Visit [facility] [address] [place] [address] Chavez Queen APRN-MANAGEMENT PROFESSIONAL [address] [place] [address] [facility] Start: 05-11-2024 End: 05-11-2024 Patient encounter procedure 05/11/2024 3:40 PM EDT Routine [facility] [address] [place] [phone] Chelsea Carson PA [address] [place], [place] [phone] [facility] Start: 05-11-2024 End: 05-11-2024 Professional / ancillary services management 05/11/2024 2:30 PM EDT Ancillary Procedure [facility] [address] [place] [phone] [facility] Start: 04-15-2024 End: 04-15-2024 Patient encounter procedure 04/15/2024 3:50 PM EST Routine [facility] [address] [place] [phone] Chelsea Carson PA [address] [place] [address] [facility] Start: 04-15-2024 End: 10-13-2024 Alpha fetoprotein, maternal Alpha fetoprotein, maternal Lab Routine Second trimester 19 weeks gestation of Expected: 04/15/2024 (Approximate), Expires: 10/13/2024 [facility] Comment on above: Expected: 04/15/2024 (Approximate), Expires: 10/13/2024 Start: 04-15-2024 End: 04-15-2025 US for US OB 14+ weeks anatomy scan Imaging Routine Screening, , for anatomic survey Expected: 04/15/2024, Expires: 04/15/2025 [facility] Comment on above: Expected: 04/15/2024 , Expires: 04/15/2025 Start: 03-16-2024 End: 03-16-2024 Patient encounter procedure 03/16/2024 3:50 PM EST Routine [facility] [address] [place] [phone] Ronald Fierro DO [address] [place] [address] [facility] Start: 02-11-2024 End: 02-10-2025 ABO/Rh ABO/Rh Lab Routine Missed menses , unspecified gestational age Expected: 02/11/2024 (Approximate), Expires: 02/10/2025 [facility] Comment on above: Expected: 02/11/2024 (Approximate), Expires: 02/10/2025 Start: 02-11-2024 End: 02-10-2025 Blood type and Indirect antibody screen panel - Blood Type and screen Lab Routine Missed menses , unspecified gestational age Expected: 02/11/2024 (Approximate), Expires: 02/10/2025 [facility] Work Phone: Comment on above: Expected: 02/11/2024 (Approximate), Expires: 02/10/2025 Start: 02-11-2024 End: 02-10-2025 Drugs of abuse panel - Urine by Screen method Rapid drug screen, urine Lab Routine , unspecified gestational age Encounter for supervision of normal first in first trimester Expected: 02/11/2024 (Approximate), Expires: 02/10/2025 [facility] Comment on above: Expected: 02/11/2024 (Approximate), Expires: 02/10/2025 Start: 02-11-2024 End: 02-10-2025 US Pelvis transvaginal US OB transvaginal Imaging Routine Missed menses Expected: 02/11/2024 (Approximate), Expires: 02/10/2025 [facility] Comment on above: Expected: 02/11/2024 (Approximate), Expires: 02/10/2025 Start: 11-08-2023 End: 11-08-2023 Patient encounter procedure 11/08/2023 10:00 AM EDT Office Visit [facility] [address] [place] [address] Chavez Queen, SHINGLE CUTTER-MANAGEMENT PROFESSIONAL [address] [place] [address] [facility] Start: 05-29-2023 Adult BMI Screening Adult BMI Screen ing [facility] Start: 05-29-2023 Depression Screening Depression Scre ening [facility] Start: 05-29-2023 Tobacco Screening Tobacco Screening [facility] Start: 12-15-2021 Screening for malignant neoplasm of cervix Pap Smear [facility] Start: 11-22-2020 DTaP,Tdap and Td Vaccines (7 - Td or Tdap) DTaP,Tdap and Td Vaccines (7 - Td or Tdap) [facility] Start: 10-07-2015 Adult BMI Follow Up Plan Adult BMI Follow Up Plan [facility] Bacteria identified in Urine by Culture Urine culture Microbiology Routine Missed menses Ordered: 02/11/2024 [facility] Comment on above: Ordered: 02/11/2024 CBC W Auto Differential panel - Blood CBC and differential Lab Routine Missed menses , unspecified gestational age Ordered: 02/11/2024 [facility] Comment on above: Ordered: 02/11/2024 CHLAMYDIA TRACHOMATI S (GENITO/STI) CHLAMYDIA TRACHOMATIS (GENITO/STI) Lab Routine STD exposure Ordered: 04/15/2024 [facility] Comment on above: Ordered: 04/15/2024 Cytology Cervical or vaginal smear or scraping study Pap Smear Pathology and Cytology Routine Well woman exam with routine gynecological exam Ordered: 04/15/2024 [facility] Comment on above: Ordered: 04/15/2024 Hemoglobin A1c/Hemoglobin.total in Blood Hemoglobin A1c Lab Routine Missed menses , unspecified gestational age Ordered: 02/11/2024 [facility] Comment on above: Ordered: 02/11/2024 Hepatitis B virus surface Ag [Presence] in Serum or Plasma by Immunoassay Hepatitis B surface antigen Lab Routine Missed menses , unspecified gestational age Ordered: 02/11/2024 [facility] Comment on above: Ordered: 02/11/2024 Hepatitis C virus Ab [Presence] in Serum or Plasma by Immunoassay Hepatitis C antibody Lab Routine Missed menses , unspecified gestational age Ordered: 02/11/2024 [facility] Comment on above: Ordered: 02/11/2024 HIV-1/HIV-2 antigen/antibody combination immunoassay HIV-1 and HIV-2 antibodies Lab Routine Missed menses , unspecified gestational age Ordered: 02/11/2024 [facility] Comment on above: Ordered: 02/11/2024 Neisseria gonorrhoea e DNA [Presence] in Unspecified specimen by RASHEED with probe detection Neisseria gonorrhea DNA probe, direct Lab Routine STD exposure Ordered: 04/15/2024 [facility] Comment on above: Ordered: 04/15/2024 Reagin Ab [Presence] in Serum by RPR RPR Lab Routine Missed menses , unspecified gestational age Ordered: 02/11/2024 [facility] Comment on above: Ordered: 02/11/2024 Rubella antibody, IgG Rubella an tibody, IgG Lab Routine Missed menses , unspecified gestational age Ordered: 02/11/2024 [facility] Comment on above: Ordered: 02/11/2024 SURESWAB(R) ADVANCED VAGINITIS PLUS, TMA SURESWAB(R) ADVANCED VAGINITIS PLUS, TMA Pathology and Cytology Routine Vaginal discharge Ordered: 04/15/2024 [facility] Work Phone: Comment on above: Ordered: 04/15/2024 Immunizations Immunization Date Immunization Notes Care Provider Fa [facility] 07-10-2024 tetanus toxoid, redu john diphtheria toxoid, and acellular pertussis vaccine, adsorbed Ania Fenton MD Work Phone: [facility] 07-10-2024 Immunization, In Cli mayco,; Translations: [Drug or medicament (substance)] Ania Fenton MD Work Phone: [facility] Work Phone: 01-10-2021 Influenza, injectabl e, Madin Kathryn Canine Kidney, preservative free, quadrivalent Chavez Karyna SHINGLE CUTTER-MANAGEMENT PROFESSIONAL Work Phone: [facility] 01-10-2021 influenza virus vacc ine, unspecified formulation Ronald Fierro DO Work Phone: [facility] 11-22-2015 meningococcal oligosaccharide (groups A, C, Y and W-135) diphtheria toxoid conjugate vaccine (MCV4O) Chavez [facility] Work Phone: [facility] 11-22-2010 tetanus toxoid, redu john diphtheria toxoid, and acellular pertussis vaccine, adsorbed [facility] Work Phone: [facility] 10-20-2003 DTaP-hepatitis B and poliovirus vaccine [facility] Work Phone: [facility] 10-20-2003 measles, mumps and rubella virus vaccine [facility] Work Phone: [facility] 10-24-1998 diphtheria, tetanus toxoids and acellular pertussis vaccine, unspecified formulation [facility] Work Phone: [facility] 10-24-1998 haemophilus influenz ae type b vaccine, conjugate unspecified formulation [facility] Work Phone: [facility] 10-24-1998 measles, mumps and rubella virus vaccine [facility] Work Phone: [facility] 06-08-1998 diphtheria, tetanus toxoids and acellular pertussis vaccine, unspecified formulation [facility] Work Phone: [facility] 06-08-1998 haemophilus influenz ae type b vaccine, conjugate unspecified formulation [facility] Work Phone: [facility] 06-08-1998 poliovirus vaccine, unspecified formulation [facility] Work Phone: [facility] 04-01-1998 diphtheria, tetanus toxoids and acellular pertussis vaccine, unspecified formulation Chavez Karyna [employer]MANA[employer]EMENT PROFESSION[employer] Work Phone: [facility] 04-01-1998 haemophilus influenz ae type b vaccine, conjugate unspecified formulation Chavez Karyna [employer]INGLE C[employer]TER[employer]MANAGEMENT PROFESSIONAL Work Phone: [facility] 04-01-1998 hepatitis B vaccine, pediatric or pediatric/adolescent dosage Chavez Karyna [employer]INGLE CUTTER[employer]MANAGEMENT PROFESSIONAL Work Phone: [facility] 04-01-1998 poliovirus vaccine, unspecified formulation Chavez Karyna [employer]INGLE CUTTER[employer]MANAGEMENT PROFESSIONAL Work Phone: [facility] 01-12-1998 diphtheria, tetanus toxoids and acellular pertussis vaccine, unspecified formulation Chavez Karyna [employer]INGLE CUTTER[employer]MANAGEMENT PROFESSIONAL Work Phone: [facility] 01-12-1998 haemophilus influenz ae type b vaccine, conjugate unspecified formulation Chavez Karyna [employer]INGLE CUTTER[employer]MANAGEMENT PROFESSIONAL Work Phone: [facility] 01-12-1998 poliovirus vaccine, unspecified formulation Chavez Karyna [employer]INGLE C[employer]MANAGEMENT PROFESSIONAL Work Phone: [facility] 1997 hepatitis B vaccine, pediatric or pediatric/adolescent dosage Chavez Karyna [employer]INGLE CUTTER[employer]MANAGEMENT PROFESSIONAL Work Phone: [facility] 1997 hepatitis B vaccine, pediatric or pediatric/adolescent dosage Chavez Karyna SHINGLE CUTTER[employer]MANAGEMENT PROFESSIONAL Work Phone: [facility] Payers Date Payer Category Payer Medicaid HMO [employer] [id number] 2024 Private Health Insurance [facility] MEDICAID [id number] 2024 Medicaid MEDICAID [facility] [id number] 2024 Medicaid [id number] 2017 Blue Cross [facility] - O ANTHEM [id number] 2017 Unknown KWASI JOY ACCYony SS (PPO) [id number] 2017-Present [phone] [address] [place] [address] [id number]. [id number] 1997 Unknown [id number] 2.16.840.1.717903.3.579.2. 593 1997 Unknown [id number] 2.16.840.1.731923.3.579.2. 1259 1997 Unknown [id number] 2.16840.1.330420.3.579.2. 1259 1997 Unknown [id number] 2.16840.1.834280.3.579.2. 1259 1997 Unknown [id number] 2.16840.1.051558.3.579.2. 1259 1997 Unknown [id number] 2.16.840.1.795755.3.579.2. 1259 1997 Unknown [id number] 2.16.840.1.726497.3.579.2. 1259 1997 Unknown [id number] 2.16.840.1.188822.3.579.2. 1259 1997 Unknown [id number] 2.16.840.1.786645.3.579.2. 1286 1997 Unknown [id number] 2.16.840.1.268549.3.579.2. 1286 1997 Unknown [id number] 2.16.840.1.561617.3.579.2. 1286 1997 Unknown [id number] 2.16.840.1.756835.3.579.2. 1286 1997 Unknown [id number] 2.16.840.1.877013.3.579.2. 1286 1997 Unknown [id number] 2.16.840.1.018740.3.579.2. 1286 1997 Unknown [id number] 2.16840.1.348807.3.579.2. 128 1997 Unknown [id number] 2.16.840.1.989572.3.579.2. 128 1997 Unknown [id number] 2.16840.1.004761.3.579.2. 128 1997 Unknown [id number] 2.16840.1.834620.3.579.2. 128 1997 Unknown [id number] 2.16840.1.898422.3.579.2. 128 1997 Unknown [id number] 2.840.1.441621.3.579.2. 128 1997 Unknown [id number] 2.840.1.780201.3.579.2. 128 1997 Unknown [id number] 2.840.1.935603.3.579.2. 128 1997 Unknown [id number] 2.16840.1.291940.3.579.2. 128 1997 Unknown [id number] 2.840.1.662171.3.579.2. 128 1997 Unknown [id number] 2.840.1.489729.3.579.2. 128 1997 Unknown [id number] 2.16840.1.219225.3.579.2. 128 1997 Unknown [id number] 2.16840.1.741407.3.579.2. 128 1997 Unknown [id number] 2.16840.1.596804.3.579.2. 128 1997 Unknown [id number] 2.16840.1.022412.3.579.2. 1286 1959 Unknown [id number] Social History Date Type Detail Facility Start: 05-28-2022 End: 07-10-2024 Sex Assigned At [facility] Other Tobacco smoking stat us NHIS Tobacco smoking consumption unknown [facility] Start: 12-13-2023 [facility] Start: 1997 Sex assigned at Not on file [facility] Start: 05-28-2022 End: 04-04-2024 Tobacco smoking status NHIS Never smoked tobacco (finding) [facility] Start: 10-07-2014 End: 04-04-2024 Sex Female (finding) [facility] Start: 1995 Sex Assigned At Female [facility] Start: 05-28-2022 Tobacco use and exposure Smokeless tobacco non-user [facility] Start: 05-28-2022 End: 07-10-2024 Alcoholic beverage intake Ex-drinker (finding) [facility] Start: 05-28-2022 End: 07-10-2024 History of Social function [facility] Adolescent depressio n screening assessment 0 [facility] Medical Equipment Procedure Code Equipment Code Equipment Origin al Text Equipment Identifier Dates Start: 06-26-2024 End: 07-06-2024 Functional Status Date Assessment Result Facility [facility] Clinical Notes 11-23-2021 to 07-15-2024 Brandi Baer NP - 07/15/2024 3:40 PM Shade Knapp CMA - 07/10/2024 10:00 AM Henrik Fatima MD - 07/10/2024 10:00 AM Connor Fenton MD - 07/10/2024 10:00 AM EDT Note Date & Type Note Facility 07-15-2024 History of Presen t illness Narrative Reason [...] nursing note reviewed. Exam conducted with a pulpwood cutter present. Vitals: There is no height or [...] and Sotalol 160 mg bid. Recommendation is for delivery at 37 weeks and for delivery at a tertiary care center. Patient is to continue NST 2 times per week and SKYLAR and growth every 4 [...] Brandi Baer NP documented in this encounter [facility] 07-10-2024 History of Presen t illness Narrative Pt here for initial HROB 32w0d Denies lof vb ctx Confirms +fm No concerns today HR 86 [facility] Initial High Risk Obstetrics [...] each meal 200 strip 0 blood-glucose meter misc Please check blood glucose fasting and 1 [...] mouth in the morning. 150 tablet 3 [id number] acid ( 19) 29 mg iron- 1 [...] Lives with self and boyfriend and daughter FOB is involved. 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 at 32w0d Dated by: w complicated by: arrhythmia/ SVT S/p hospital admission end of June Continue sotalol and digoxin MFM appointment July [...] vaginal delivery testing: Saturday/ NST/ DVP at [facility] Reviewed labor warnings and kick counts Problem List Excessive growth affecting management of mother in second trimester, antepartum Intrauterine Overview First trimester Cell free DNA: low risk per patient Carrier screening 28 week labs CBC, HIV, Syphilis completed: yes Rh status: positive Third trimester Tdap: will do with regular OBGYN GBS at 36 weeks Mode of delivery: testing: Saturday/ NST/ DVP at [facility] Polyhydramnios affecting Supraventricular tachycardia of fetus affecting management of - Primary Overview S/p hospital admission end of June Continue sotalol and digoxin MFM appointment July [...] the hospital that she would deliver at [facility]. Advised patient to review with MFM as she prefers to continue her care with her primary obgyn and delivery hospital. Reviewed that the recommendation to deliver at [facility] would warrant care with our office and that after she would return to her primary obgyn except for the potential wound check or bp check. Ania Fenton MD [facility] 07/13/2024 7:08 AM documented in this encounter [facility] 07-06-2024 History of Presen t illness Narrative CGM report reviewed. No medication needed at this time. KELLI Fernandes 07/06/24 1617 documented in this encounter [facility] 07-06-2024 Group counseling note Patient: Veda Mtz Date: 07/06/2024 Vitals: 07/06/24 [...] Face to face time was 100 minutes. [employer] Work Phone: 07-06-2024 Miscellaneous Notes Patient: Veda [...] was 100 minutes. documented in this encounter [facility] 06-30-2024 History of Presen t illness Narrative [...] nursing note reviewed. Exam conducted with a pulpwood cutter present. Vitals: There is no height or [...] a day. Pt to be delivered at [facility] Orders Placed This Encounter Procedures US biophysical profile w non stress test POCT urinalysis dipstick manually resulted Follow Up: Patient is to return to office in 2 week for routine OB appointment. Documented by Hayley Oneill LPN on behalf of: Ronald Fierro DO documented in this encounter [facility] 06-29-2024 History of Presen t illness Narrative Spoke with Dr. Fierro's office pertaining to follow up appointments for patient. Per Dr. Suárez's note 06/25/24, patient is to receive 2x weekly NSTs with 1x weekly DVP to evaluate heart rhythm. She is scheduled to be seen at [facility] 07/17/24 at which time she will receive a growth ultrasound and assess heart function. She will also need an EKG, this day, which has already been ordered by Dr. Geronimo Shay, peds [employer] Manager. documented in this encounter [facility] 06-29-2024 Miscellaneous Notes Recvd pt phone call. Pt declined class due to time away from work with recent admit, offered video visit and declined also due to time time away from work, stressed importance of diabetic ed, encouraged to contact OB and will forward to the diabetic team and OB. documented in this encounter [facility] 06-29-2024 Telephone encounter Note Recvd pt phone call. Pt declined class due to time away from work with recent admit, offered video visit and declined also due to time time away from work, stressed importance of diabetic ed, encouraged to contact OB and will forward to the diabetic team and OB. [facility] 06-26-2024 History of Presen t illness Narrative [...] Reset alarms and assisted with connecting to [facility] clinic practice. Verbalized understanding. Face to face time 20 minutes. Instructed patient on use of truemetrix glucometer and how to check blood sugars. Blood glucose log provided and instructed to check fasting and 1 hour after meals if Neida fails. Patient verbalized understanding. documented in this encounter [facility] 06-22-2024 Miscellaneous Notes [facility] with a question about changing medications. Secure chat sent to Dr. Browning documented in this encounter [facility] 06-22-2024 Telephone encounter Note Contract: [facility] OB resident with a question about changing medications. Secure chat sent to Dr. Browning [facility] 06-21-2024 Miscellaneous Notes Contract: [facility] calling for patient update. Room [facility] in labor and delivery. Sent secure chat to Dr Robin Browning. documented in this encounter [facility] 06-21-2024 Telephone encounter Note Contract: [facility] calling for patient update. [facility] in labor and delivery. Sent secure chat to Dr Robin Browning. [facility] 06-11-2024 History of Presen t illness Narrative [...] No Have you been seen here at [facility] in a previous ? No Recent ER visits or hospitalizations? No Bring blood sugar log or meter with you today? (Please bring them with you for every visit at [facility]) NA Flu vaccine (Jan-May)? NA Any concerns that you would like me to mention to the provider today? No [facility] Consult Note Reason For Consult: [...] mg/10 mL, 2 mL, intravenous, PRN, Estefani Grady MD sodium chloride 0.9 % flush 10 mL, 10 mL, intravenous, Once PRN, Estefani Grady MD SH: Social History Socioeconomic History Marital [...] - 1.00 mg/dL Final METHOD TRACEABLE TO IDMT STANDARD Glucose 06/11/2024 79 65 - 99 [...] range has not been established by the puddler pile driving of this kit. The [place] [employer] recommends a Vitamin D [...] Berto Suárez MD, FACOG (she/hers) Maternal- Medicine [facility] [address] [place] [address] This document was created with [employer] technology. Though I make every effort to review the dictation as it is transcribed, on occasion the spoken word can be misinterpreted by the technology leading to inappropriate words, phrases, or sentences. This note is addressed to the requesting provider as a consultation for clinical guidance. Specific medical abbreviations are occasionally used and those are generally approved by the [place]?Board of?Obstetrics and?Gynecology?as well as?Dylan s abbreviations. The above plan of care was based solely on the diagnoses for which a consultation was requested. ?More frequent testing may be indicated based on her other medical/obstetrical conditions. The management of other or medical conditions is beyond the scope of requested consultation and will continue to be followed by the primary contract negotiator or primary care provider. Note to patient: The Century Cures Act makes medical notes like [...] of the practitioner. [facility] History of Presen t illness Narrative [...] nursing note reviewed. Exam conducted with a pulpwood cutter present. Vitals: There is no height or [...] Ronald Fierro DO documented in this encounter [facility] 04-15-2024 History of Presen t illness Narrative [...] nursing note reviewed. Exam conducted with a pulpwood cutter present. Vitals: There is no height or [...] obtained without difficulty and patient was given [facility] order to have obtained. Orders Placed This Encounter Procedures US OB 14+ weeks anatomy scan CHLAMYDIA TRACHOMATIS (GENITO/STI) Neisseria gonorrhea DNA probe, direct Alpha fetoprotein, maternal POCT urinalysis dipstick manually resulted Follow Up: Patient is to return to our office in 4 weeks for routine OB appointment Documented by Monse Arias LPN on behalf of: EMILY Villalobos documented in this encounter [facility] 04-14-2024 Miscellaneous Notes set up establish care with provider of choice LM on VM documented in this encounter [facility] 04-14-2024 Telephone encounter Note set up establish care with provider of choice [facility] 04-14-2024 Telephone encounter Note LM on VM [facility] 04-04-2024 Evaluation note Diagnosis Onset Date Resolution Influenza A acute April 04, 2024 10:32am [facility] Work Phone: [phone]) 506-196501-13-2025 History of Present illness Narrative* Ijeoma Carrera [...] or undercooked meat, and [facility]. Patient has been consulted regarding any further do's and don'tsof . Patient voiced understanding and all questions and concerns were answered. Follow Up: Patient is to return in 4 weeks for routine OB appointment. Documented by Ijeoma Carrera LPN on behalf of: Ronald Fierro DO [id number] History of Present illness Narrative* Annie Keith [...] or undercooked meat, and stay away [facility]. Patient has also been advised to [...] by: Annie Keith MA [id number] Miscellaneous Notes* Telephone Encounter - Lupe Stacy - 09/10/2023 10:02 AM EDT Reschedule 10/31 appt * [facility] 10[facility]02 AM EDT LM on VM * Telephone Encounter - Lupe Regis - 09/10/2023 10:02 AM EDT Rescheduled [facility] Note* [facility] AM [facility]T Reschedule 10/31 appt [facility]07-09-2024 Telephone encounter Note* [facility] - 09/10/2023 10:02 AM EDT LM on VM [facility]07-09-2024 Telephone encounter Note* Telephone Encounter - [facility] - 09/10/2023 10:02 AM EDT Rescheduled [facility]09-22-2022 Evaluation note* Encounter Date Diagnosis Assessment [...] POSITIVE education handout discharge instructions. given. T [employer] Other Evaluation note* Diagnosis Missed menses , unspecified gestational age Encounter for supervision of normal first in first trimester 10 weeks gestation of documented [facility]* Diagnosis Second trimester state, incidental 15 weeks gestation of documented in this encounter [facility]* Diagnosis Well woman exam with routine gynecological exam Routine gynecological examination Second trimester state, incidental Vaginal discharge Leukorrhea, not specified as infective STD exposure 19 weeks gestation of Screening, , for anatomic survey Encounter for anatomic survey documented in this encounter [facility]* Diagnosis Second trimester state, incidental 27 weeks gestation of tachycardia affecting management of mother Abnormality in heart rate/rhythm, unspecified as to episode of care or not applicable documented in this encounter [facility]* Diagnosis 27 weeks gestation of - Primary Supraventricular tachycardia of fetus affecting management of Polyhydramnios affecting Excessive growth affecting management of in second trimester, single or unspecified fetus documented [facility]* Diagnosis Supraventricular tachycardia of fetus affecting management of - Primary Polyhydramnios affecting documented [facility]* Diagnosis Diet controlled gestational diabetes mellitus (GDM) in third trimester- Primary documented in this encounter [facility]* Diagnosis Diet controlled gestational diabetes mellitus (GDM) in third trimester- Primary documented in this encounter [facility]* Diagnosis Third trimester state, incidental 30 weeks gestation of Supraventricular tachycardia of fetus affecting management of Polyhydramnios affecting Excessive growth affecting management of in third trimester, single or unspecified fetus documented in this encounter [facility]* Diagnosis Diet controlled gestational diabetes mellitus (GDM) in third trimester documented in this encounter [facility]* Diagnosis Polyhydramnios affecting [O40.9XX0]- Primary documented in this encounter [facility]* Diagnosis Diet controlled gestational diabetes mellitus (GDM) in third trimester documented in this encounter [facility]* Diagnosis Supraventricular tachycardia of fetus affecting management of - Primary Intrauterine Excessive growth affecting management of in second trimester, single or unspecified fetus Polyhydramnios affecting documented [facility]* Diagnosis Third trimester state, incidental 32 weeks gestation of documented in this encounter [facility]ructionsNot on filedocumented in this encounterProMedica Health SystemInstructionsNot on filedocumented in this encounterProMedica Health SystemInstructionsNot on filedocumented in this encounterProMedica Health SystemInstructionsNot on filedocumented in [facility] Instructions* Attachments The following attachments cannot be sent through Care Everywhere. * Preeclampsia (Turkish) documented in this encounterProMedica Health SystemInstructionsNot on [...] Health SystemInstructionsNot on file documented [facility] Summary Purpose Family History Relationship [...] DATE CREATED AUTHOR 12/08/2020 [facility] DATE CREATED AUTHOR AUTHOR'S ORGANIZ ATION 07/01/2024 [facility] DATE CREATED AUTHOR AUTHOR'S ORGANIZ ATION 07/12/2024 [facility] REASON FOR VISIT (unrecogniz ed section and content) Reason Comments Amenorrhea Reason Comments Routine Visit Reason Comments Routine Visit Well Women Visit STI Screening Reason Comments Add on abnormal heart rhythm Reason Onset Date Comments patient update 06/21/2024 Reason Onset Date Comments Medication Problem 06/22/2024 Reason Comments Gestational Diabetes Specialty Diagnoses / Procedures Referred By Jess t Referred To Contact Maternal and Medicine Diagnoses Diet controlled gestational diabetes mellitus (GDM) in third trimester Berto Suárez MD [address] [place] [address] Phone: tel: fax: Maternal- Medicine at [facility] [address] [place] [address] Phone: tel: fax: Referral ID Status Reason Start Date Expiration Date Visits Requested Visits Authorized [id number] Pending Review Specialty Services Required 06/26/2024 06/26/2025 1 1 Reason Comments Initial Visit Care Teams (unrecognized sec tion and content) Metal Hanging Supervisor Relationship Specialty Start Date End Date Terrence Mcintyre MD [address] [place] [address] PCP - General Family Medicine 02/11/24 Metal Hanging Supervisor Relationship Specialty Start Date End Date Terrence Mcintyre MD [address] [place] [address] PCP - General Family Medicine 02/11/24 Metal Hanging Supervisor Relationship Specialty Start Date End Date Terrence Mcintyre MD [address] [place] [address] PCP - General Family Medicine 02/11/24 Metal Hanging Supervisor Relationship Specialty Start Date End Date Terrence Mcintyre MD [address] [place] [address] PCP - General Family Medicine 02/11/24 Team Status: Active Member Role Status Dates Terrence Mcintyre DO Primary Care Provider Active Team Status: Inactive Member Role Status Dates Terrence Mcintyre DO Primary Care Provider Active Start: April 04, 2024 End: April 04, 2024 Michell German APRN Attending Provider Active Start: April 04, 2024 End: April 04, 2024 Metal Hanging Supervisor Relationship Specialty Start Date End Date Chavez Queen APRN-MANAGEMENT PROFESSIONAL [address] [place] [address] PCP - General Internal Medicine 09/03/23 Metal Hanging Supervisor Relationship Specialty Start Date End Date Terrence Mcintyre MD [address] [place] [address] PCP - General Family Medicine 02/11/24 Metal Hanging Supervisor Relationship Specialty Start Date End Date Chavez Queen APRN-MANAGEMENT PROFESSIONAL [address] [place] [address] PCP - General Internal Medicine 09/03/23 Metal Hanging Supervisor Relationship Specialty Start Date End Date Terrence Mcintyre MD PCP - General Family Medicine 02/11/24 Metal Hanging Supervisor Relationship Specialty Start Date End Date Terrence Mcintyre MD PCP - General Family Medicine 02/11/24 Metal Hanging Supervisor Relationship Specialty Start Date End Date Terrence Mcintyre MD PCP - General Family Medicine 02/11/24 Metal Hanging Supervisor Relationship Specialty Start Date End Date Chavez Queen APRN-MANAGEMENT PROFESSIONAL [address] [place] [address] PCP - General Internal Medicine 09/03/23 Metal Hanging Supervisor Relationship Specialty Start Date End Date Chavez Queen SHINGLE CUTTER-MANAGEMENT PROFESSIONAL [address] [place] [address] PCP - General Internal Medicine 09/03/23 Metal Hanging Supervisor Relationship Specialty Start Date End Date Chavez Queen SHINGLE CUTTER-MANAGEMENT PROFESSIONAL [address] [place] [address] PCP - General Internal Medicine 09/03/23 Metal Hanging Supervisor Relationship Specialty Start Date End Date Chavez Queen SHINGLE CUTTER-MANAGEMENT PROFESSIONAL [address] [place] [address] PCP - General Internal Medicine 09/03/23 Metal Hanging Supervisor Relationship Specialty Start Date End Date Chavez Queen SHINGLE CUTTER-MANAGEMENT PROFESSIONAL [address] [place] [address] PCP - General Internal Medicine 09/03/23 Metal Hanging Supervisor Relationship Specialty Start Date End Date Chavez Queen SHINGLE CUTTER-MANAGEMENT PROFESSIONAL [address] [place] [address] PCP - General Internal Medicine 09/03/23 Metal Hanging Supervisor Relationship Specialty Start Date End Date Chavez Queen SHINGLE CUTTER-MANAGEMENT PROFESSIONAL [address] [place] [address] PCP - General Internal Medicine 09/03/23 Metal Hanging Supervisor Relationship Specialty Start Date End Date Chavez Queen SHINGLE CUTTER-MANAGEMENT PROFESSIONAL [address] [place] [address] PCP - General Internal Medicine 09/03/23 Metal Hanging Supervisor Relationship Specialty Start Date End Date Terrence Mcintyre MD PCP - General Family Medicine 02/11/24 Metal Hanging Supervisor Relationship Specialty Start Date End Date Terrence Mcintyre MD PCP - General Family Medicine 02/11/24 Metal Hanging Supervisor Relationship Specialty Start Date End Date Chavez Queen SHINGLE CUTTER-MANAGEMENT PROFESSIONAL [address] [place] [address] PCP - General Internal Medicine 09/03/23 Metal Hanging Supervisor Relationship Specialty Start Date End Date Chavez Queen SHINGLE CUTTER-MANAGEMENT PROFESSIONAL [address] [place] [address] PCP - General Internal Medicine 09/03/23 Metal Hanging Supervisor Relationship Specialty Start Date End Date Chavez Queen SHINGLE CUTTER-MANAGEMENT PROFESSIONAL [address] [place] [address] PCP - General Internal Medicine 09/03/23 Metal Hanging Supervisor Relationship Specialty Start Date End Date Terrence Mcintyre MD PCP - General Family Medicine 02/11/24 Metal Hanging Supervisor Relationship Specialty Start Date End Date Terrence Mcintyre MD PCP - General Family Medicine 02/11/24 Goals (unrecognized section and content) Goals may [...] BE BASED ON THE PRIMARY CLINICAL RECORDS. [facility] [employer] [facility]. provides no warranty or guarantee of the accuracy or completeness of information in this document.
[2024-07-16 20:07] VITALS: BP 108/55; PULSE 85
== END 2024-07-16 20:10 | disposition home or self-care (01) ==
LOC: US 19:08 → FBC 19:09
PROVIDERS: PCP Family Medicine; Visit Provider Obstetrics & Gynecology
DX: O40.3XX0 Polyhydramnios, third trimester, not applicable or unspecified (principal); Z3A.32 32 weeks gestation of pregnancy
CPT/HCPCS: 76818

== ENCOUNTER 2024-07-20 18:09 | Outpatient (OUT) | payer OTHER, SELFPAY | END 2024-07-20 19:00 | disposition home or self-care (01) | LOC: FBCO 18:09 → FBC 18:23 | PROVIDERS: PCP Family Medicine; Visit Provider Obstetrics & Gynecology | DX: O35.8XX0 Maternal care for other (suspected) fetal abnormality and damage, not applicable or unspecified (principal) | CPT/HCPCS: 59025 ==

== ENCOUNTER 2024-07-23 19:16 | Outpatient (OUT) | payer OTHER, SELFPAY ==
--- OUTSIDE RECORDS SUMMARY | 2024-07-17 16:34 | XMS_ITS ---
Author Organization OH[employer] Name Relationship Address Phone PAMELA, SIS Significant Other [address] [place] [address] + PAMELA, SIS Significant Other [address] [place] [address] + PAMELA, SIS Significant Other [address] [place] [address] + PAMELA, SIS Significant Other Unknown [phone] PAMELA, SIS Significant Other [address] [place] [address] + PAMELA, SIS Significant Other [address] [place] [address] + PAMELA, SIS Significant Other Unknown [phone] PAMELA, SIS Significant Other [address] [place] [address] + PAMELA, SIS Significant Other [address] [place] [address] + PAMELA, SIS Significant Other [address] [place] [address] + PAMELA, SIS Significant Other [address] [place] [address] + PAMELA, SIS Significant Other [address] [place] [address] + PAMELA, SIS Significant Other [address] [place] [address] + PAMELA, SIS Significant Other [address] [place] [address] + PAMELA, SIS Significant Other [address] [place] [address] + PAMELA, SIS Significant Other [address] [place] [address] + PAMELA, SIS Significant Other [address] [place] [address] + PAMELA, SIS Significant Other [address] [place] [address] + PAMELA, SIS Significant Other [address] [place] [address] + PAMELA, SIS Significant Other [address] [place] [address] + PAMELA, SIS Significant Other [address] [place] [address] + PAMELA, SIS Significant Other [address] [place] [address] + PAMELA, SIS Significant Other [address] [place] [address] + PAMELA, SIS Significant Other [address] [place] [address] + PAMELA, SIS Significant Other [address] [place] [address] + PAMELA, SIS Significant Other [address] [place] [address] + PAMELA, SIS Significant Other Unknown [phone] PAMELA, SIS Significant Other Unknown [phone] PAMELA, SIS Significant Other Unknown [phone] PAMELA, SIS Significant Other Unknown [phone] PAMELA, SIS Significant Other Unknown [phone] PAMELA, SIS Significant Other Unknown [phone] Care Team Providers Care Carpenter Rough Name Role Phone HEIKE, PHIL R Referring Unavailable KARYNA, CHAVEZ L Primary Care Unavailable SILVESTRE SUÁREZ Attending Unavailable HEIKE, PHIL R Referring Unavailable KARYNA, CHAVEZ L Primary Care Unavailable SEGOVIA, VANESA Grace Admitting Unavailable SEGOVIA, VANESA Grace Attending Unavailable KARYNA, CHAVEZ L Primary Care Unavailable JASPAL, MEHREEN K F Consulting Unavaila ble KATLYN SMALLS Consulting Unavailable HAREDDIE, LARISSA Mcnulty Consulting Unavailable AHMET VALVERDE Consulting Unavailable KARYNA, CHAVEZ L Primary Care Unavailable HEIKE, PHIL R Referring Unavailable KARYNA, CAHVEZ L Primary Care Unavailable HEIKE, PHIL R Referring Unavailable KARYNA, CHAVEZ L Primary Care Unavailable HEIKE, PHIL R Referring Unavailable KARYNA, CHAVEZ L Primary Care Unavailable HEIKE, PHIL R Referring Unavailable KARYNA, CHAVEZ L Primary Care Unavailable HEIKE, PHIL R Referring Unavailable KARYNA, CHAVEZ L Primary Care Unavailable HEIKE, PHIL R Referring Unavailable KARYNA, CHAVEZ L Primary Care Unavailable HEIKE, PHIL R Referring Unavailable KARYNA, CHAVEZ L Primary Care Unavailable HEIKE, PHIL R Referring Unavailable KARYNA, CHAVEZ L Primary Care Unavailable HEIKE, PHIL R Referring Unavailable KARYNA, CHAVEZ L Primary Care Unavailable HEIKE, PHIL R Referring Unavailable JASPAL, CLAUDEEN K F Referring Unavaila ble KARYNA, CHAVEZ L Primary Care Unavailable YSABEL, BETTE S Referring Unavailable KARYNA, CHAVEZ L Primary Care Unavailable JASPAL CLAUDSUSU K F Referring Unavaila ble KARYNA, CHAVEZ L Primary Care Unavailable FOGARTHY, TANNICE Referring Unavailable KARYNA, CHAVEZ L Primary Care Unavailable YSABEL, BETTE S Referring Unavailable KARYNA, CHAVEZ L Primary Care Unavailable FOGARTHY, TANNICE Referring Unavailable KARYNA, CHAVEZ L Primary Care Unavailable TUNG FERNANDEZ Attending Unavailable HEIKE, PHIL R Referring Unavailable KARYNA, CHAVEZ L Primary Care Unavailable ANIA SANCHEZ Attending Unavailable KARYNA, CHAVEZ L Referring Unavailable KARYNA, CHAVEZ L Primary Care Unavailable HEIKE, PHIL R Referring Unavailable KARYNA, CHAVEZ L Primary Care Unavailable SILVESTRE SUÁREZ Attending Unavailable HEIKE, PHIL R Referring Unavailable KARYNA, CHAVEZ L Primary Care Unavailable KARYNA, CHAVEZ L Referring Unavailable KARYNA, CHAVEZ L Primary Care Unavailable CELIO PURVIS Attending Unavailable CELIO PURVIS Referring Unavailable CELIO PURVIS Attending Unavailable PHIL BURROUGHS Attending Unavailable PHIL BURROUGHS Attending Unavailable ROSALBA CINTRON Attending Unavailable HEIKE, PHIL Attending Unavailable Purpose PROBLEMS DATE TYPE CONDITION / CODE ATTENDING STATUS [facility] 07/10/2024 Unknown Encounter for supervision of normal , unspecified, unspecified trimester / Z34.90(ICD-10) ANIA SANCHEZ [facility] 07/10/2024 Unknown Maternal care fo r abnormalities of the heart rate or rhythm, unspecified trimester, not applicable or unspecified / O36.8390(ICD-10) ANIA SANCHEZ [facility] 07/10/2024 Unknown Initial Visit / FREETEXT(AOF) ANIA SANCHEZ [facility] 07/06/2024 Unknown Gestational diab etes mellitus in , diet controlled / O24.410(ICD-10) TUNG FERNANDEZ [facility] 07/06/2024 Unknown Gestational Diab etes / FREETEXT(AOF) TUNG FERNANDEZ [facility] 06/11/2024 Unknown Maternal care fo r excessive growth, second trimester, not applicable or unspecified / O36.62X0(ICD-10) VANESA SEGOVIA [facility] 06/11/2024 Unknown Polyhydramnios, unspecified trimester, not applicable or unspecified / O40.9XX0(ICD-10) VANESA SEGOVIA [facility] 06/11/2024 Unknown Finding of other specified substances, not normally found in blood / R78.89(ICD-10) VANESA SEGOVIA [facility] 06/11/2024 Unknown Dizziness and gi ddiness / R42(ICD-10) VANESA SEGOVIA [facility] 06/11/2024 Unknown Encounter for therapeutic drug level monitoring / Z51.81(ICD-10) VANESA SEGOVIA [facility] 06/11/2024 Unknown Other chcf (current) drug therapy / Z79.899(ICD-10) VANESA SEGOVIA [facility] 06/11/2024 Unknown Add on abnormal heart rhythm / UNK(Unknown) SILVESTRE SUÁREZ [facility] 06/11/2024 Unknown Encounter for ot her specified screening / Z36.89(ICD-10) NA [facility] PROCEDURES No Procedure Records Found VITAL SIGNS No Vital Signs Records Found RESULTS BEDSIDE GLUCOSE Collected: 10:10 AM Status: COMPLETED Source: [facility] TYPE CODE TESTS RESULT OUT OF RANGE REFERENCE UNITS LAB BEDG BEDSIDE GLUCOSE ???BEDG 124 High 65-99 mg/dL Performed By: #### BEDG #### [facility] ([facility]) [address] [place] [address] VIR COMPREHENSIVE METABOLIC PANEL Collected: 2024 7:57 AM Status: COMPLETED Source: [facility] TYPE CODE TESTS RESULT OUT OF RANGE REFERENCE UNITS LAB TBIL BILIRUBIN,TOTAL 0.4 0.3-1.2 mg/dL LAB CA CALCIUM 9.0 8.5-10.5 mg/dL LAB CO2 CARBON DIOXIDE 21 Low 22-32 mmol/L LAB CL CHLORIDE 106 98-109 mmol/L LAB CRET CREATININE 0.35 Low 0.40-1.00 mg/dL Result Comment: METHOD TRACE ABLE TO IDMS STANDARD LAB GLU GLUCOSE 94 65-99 mg/dL LAB ALK ALKALINE PHOSPHATASE 74 39-130 U/L LAB K POTASSIUM 3.6 3.5-5.0 mmol/L LAB TP TOTAL PROTEIN 5.7 Low 6.0-8.0 g/dL LAB NA SODIUM 139 134-146 mmol/L LAB AST AST 13 <=41 U/L LAB ALT ALT 8 <=31 U/L LAB BUN BLOOD UREA NITROGEN 6 5-23 mg/dL LAB AGAP ANION GAP 12 5-15 mmol/L LAB ALB ALBUMIN 3.3 3.2-5.3 g/dL LAB EGFR EGFR (CKD-EPI) NON-RACE DEPENDENT >^90 >=60 ml/min/1 .73sq.m Result Comment: Reported eGF R is based on the CKD-EPI 2020 equation that does not use a race coefficient. Performed By: #### CMP #### [facility] ([facility]) [address] [place] [address] VIR BEDSIDE GLUCOSE Collected: 06/28/2024 6:05 AM Status: COMPLETED Source: [facility] TYPE CODE TESTS RESULT OUT OF RANGE REFERENCE UNITS LAB BEDG BEDSIDE GLUCOSE ???BEDG 92 65-99 mg/dL Performed By: #### BEDG #### [facility] ([facility]) [address] [place] [address] VIR BEDSIDE GLUCOSE LAB Collected: 06/27/2024 8:44 PM Status: COMPLETED Source: [facility] TYPE CODE TESTS RESULT OUT OF RANGE REFERENCE UNITS LAB BEDG(LOINC) BEDSIDE GLUCOSE LAB 102 High 65-99 mg/dL BEDSIDE GLUCOSE LAB Collected: 06/27/2024 4:40 PM Status: COMPLETED Source: [facility] TYPE CODE TESTS RESULT OUT OF RANGE REFERENCE UNITS LAB BEDG(LOINC) BEDSIDE GLUCOSE LAB 115 High 65-99 mg/dL BEDSIDE GLUCOSE LAB Collected: 06/27/2024 3:32 PM Status: COMPLETED Source: [facility] TYPE CODE TESTS RESULT OUT OF RANGE REFERENCE UNITS LAB BEDG(LOINC) BEDSIDE GLUCOSE LAB 183 High 65-99 mg/dL BEDSIDE GLUCOSE LAB Collected: 06/27/2024 9:34 AM Status: COMPLETED Source: [facility] TYPE CODE TESTS RESULT OUT OF RANGE REFERENCE UNITS LAB BEDG(LOINC) BEDSIDE GLUCOSE LAB 156 High 65-99 mg/dL COMPREHENSIVE METABOLIC PANEL Collected: 2024 6:48 AM Status: COMPLETED Source: [facility] TYPE CODE TESTS RESULT OUT OF RANGE REFERENCE UNITS LAB NA(LOINC) SODIUM 137 134-146 mmol/L LAB K(LOINC) POTASSIUM 3.5 3.5-5.0 mmol/L LAB CL(LOINC) CHLORIDE 105 98-109 mmol/L LAB CO2(LOINC) CARBON DIOXIDE 22 22-32 mmol/L LAB AGAP(LOINC) ANION GAP 10 5-15 mmol/L LAB BUN(LOINC) BLOOD UREA NITROGEN 6 5-23 mg/dL LAB CRET(LOINC) CREATININE 0.30 Low 0.40-1.00 mg/dL Result Comment: METHOD TRACE ABLE TO IDMS STANDARD LAB GLU(LOINC) GLUCOSE 104 High 65-99 mg/dL LAB CA(INC) CALCIUM 9.0 8.5-10.5 mg/dL LAB TP([facility]) TOTAL PROTEIN 5.6 Low 6.0-8.0 g/dL LAB ALB([facility]) ALBUMIN 3.3 3.2-5.3 g/dL LAB ALK([facility]) ALKALINE PHOSPHATASE 71 39-130 U/L LAB AST([facility]) AST 11 0-41 U/L LAB ALT1([facility]) ALT 7 0-31 U/L LAB TBIL([facility]) BILIRUBIN,TOTAL 0.4 0.3-1.2 mg/d L LAB EGFR([facility]) eGFR (CKD-EPI) NON-RACE DEPENDENT >90 >59 ml/min/1 .73sq.m Result Comment: Reported eGFR is based on the CKD-EPI 2020 equation that does not use a race coefficient. Performed By: #### 92546-8, CMP #### [facility] ([id number]) [address] [place] [address], [address] [place] [address] MAGNESIUM Collected: 06/27/2024 6:48 AM S tatus: COMPLETED Source: [facility] TYPE CODE TESTS RESULT OUT OF RANGE REFERENCE UNITS LAB MG([facility]) MAGNESIUM 1.5 Low 1.8-2.6 mg/dL Performed By: #### 63040-1, CMP #### [facility] ([id number]) [address] [place] [address], [address] [place] [address] BEDSIDE GLUCOSE LAB Collected: 06/27/2024 6:03 AM Status: COMPLETED Source: [facility] TYPE CODE TESTS RESULT OUT OF RANGE REFERENCE UNITS LAB BEDG([facility]) BEDSIDE GLUCOSE LAB 108 High 65-99 mg/dL BEDSIDE GLUCOSE LAB Collected: 06/26/2024 8:04 PM Status: COMPLETED Source: [facility] TYPE CODE TESTS RESULT OUT OF RANGE REFERENCE UNITS LAB BEDG([facility]) BEDSIDE GLUCOSE LAB 112 High 65-99 mg/dL BEDSIDE GLUCOSE LAB Collected: 06/26/2024 4:23 PM Status: COMPLETED Source: [facility] TYPE CODE TESTS RESULT OUT OF RANGE REFERENCE UNITS LAB BEDG([facility]) BEDSIDE GLUCOSE LAB 137 High 65-99 mg/dL BEDSIDE GLUCOSE LAB Collected: 06/26/2024 11:22 AM Status: COMPLETED Source: [facility] TYPE CODE TESTS RESULT OUT OF RANGE REFERENCE UNITS LAB BEDG(LOINC) BEDSIDE GLUCOSE LAB 113 High 65-99 mg/dL BEDSIDE GLUCOSE LAB Collected: 06/26/2024 8:17 AM Status: COMPLETED Source: [facility] TYPE CODE TESTS RESULT OUT OF RANGE REFERENCE UNITS LAB BEDG(LOINC) BEDSIDE GLUCOSE LAB 109 High 65-99 mg/dL COMPREHENSIVE METABOLIC PANEL Collected: 2024 5:45 AM Status: COMPLETED Source: [facility] TYPE CODE TESTS RESULT OUT OF RANGE REFERENCE UNITS LAB NA(LOINC) SODIUM 139 134-146 mmol/L LAB K(LOINC) POTASSIUM 3.6 3.5-5.0 mmol/L LAB CL(LOINC) CHLORIDE 105 98-109 mmol/L LAB CO2(LOINC) CARBON DIOXIDE 24 22-32 mmol/L LAB AGAP(LOINC) ANION GAP 10 5-15 mmol/L LAB BUN(LOINC) BLOOD UREA NITROGEN 7 5-23 mg/dL LAB CRET(LOINC) CREATININE 0.34 Low 0.40-1.00 mg/dL Result Comment: METHOD TRACE ABLE TO IDMS STANDARD LAB GLU(LOINC) GLUCOSE 100 High 65-99 mg/dL LAB CA(LOINC) CALCIUM 9.5 8.5-10.5 mg/dL LAB TP(LOINC) TOTAL PROTEIN 5.7 Low 6.0-8.0 g/dL LAB ALB(LOINC) ALBUMIN 3.4 3.2-5.3 g/dL LAB ALK(LOINC) ALKALINE PHOSPHATASE 70 39-130 U/L LAB AST(LOINC) AST 13 0-41 U/L LAB ALT1(LOINC) ALT 8 0-31 U/L LAB TBIL(LOINC) BILIRUBIN,TOTAL 0.3 0.3-1.2 mg/d L LAB EGFR(LOINC) eGFR (CKD-EPI) NON-RACE DEPENDENT >90 >59 ml/min/1 .73sq.m Result Comment: Reported eGFR is based on the CKD-EPI 2020 equation that does not use a race coefficient. Performed By: #### CMP #### [facility] ([id number] [address], [address] [place] [address] BEDSIDE GLUCOSE LAB Collected: 06/26/2024 5:44 AM Status: COMPLETED Source: [facility] TYPE CODE TESTS RESULT OUT OF RANGE REFERENCE UNITS LAB BEDG(LOINC) BEDSIDE GLUCOSE LAB 101 High 65-99 mg/dL BEDSIDE GLUCOSE LAB Collected: 06/25/2024 8:17 PM Status: COMPLETED Source: [facility] TYPE CODE TESTS RESULT OUT OF RANGE REFERENCE UNITS LAB BEDG(LOINC) BEDSIDE GLUCOSE LAB 113 High 65-99 mg/dL BEDSIDE GLUCOSE LAB Collected: 06/25/2024 2:54 PM Status: COMPLETED Source: [facility] TYPE CODE TESTS RESULT OUT OF RANGE REFERENCE UNITS LAB BEDG(LOINC) BEDSIDE GLUCOSE LAB 122 High 65-99 mg/dL BEDSIDE GLUCOSE LAB Collected: 06/25/2024 9:59 AM Status: COMPLETED Source: [facility] TYPE CODE TESTS RESULT OUT OF RANGE REFERENCE UNITS LAB BEDG([facility]) BEDSIDE GLUCOSE LAB 145 High 65-99 mg/dL COMPREHENSIVE METABOLIC PANEL Collected: 2024 5:48 AM Status: COMPLETED Source: [facility] TYPE CODE TESTS RESULT OUT OF RANGE REFERENCE UNITS LAB NA(LOINC) SODIUM 137 134-146 mmol/L LAB K(LOINC) POTASSIUM 3.5 3.5-5.0 mmol/L LAB CL(LOINC) CHLORIDE 103 98-109 mmol/L LAB CO2(LOINC) CARBON DIOXIDE 22 22-32 mmol/L LAB AGAP(LOINC) ANION GAP 12 5-15 mmol/L LAB BUN(LOINC) BLOOD UREA NITROGEN 7 5-23 mg/dL LAB CRET(LOINC) CREATININE 0.28 Low 0.40-1.00 mg/dL Result Comment: METHOD TRACE ABLE TO IDMS STANDARD LAB GLU(LOINC) GLUCOSE 93 65-99 mg/dL LAB CA(LOINC) CALCIUM 9.6 8.5-10.5 mg/dL LAB TP(LOINC) TOTAL PROTEIN 5.8 Low 6.0-8.0 g/dL LAB ALB(LOINC) ALBUMIN 3.4 3.2-5.3 g/dL LAB ALK(LOINC) ALKALINE PHOSPHATASE 70 39-130 U/L LAB AST(LOINC) AST 11 0-41 U/L LAB ALT1(LOINC) ALT 9 0-31 U/L LAB TBIL([facility]) BILIRUBIN,TOTAL 0.4 0.3-1.2 mg/d L LAB EGFR([facility]) eGFR (CKD-EPI) NON-RACE DEPENDENT >90 >59 ml/min/1 .73sq.m Result Comment: Reported eGFR is based on the CKD-EPI 2020 equation that does not use a race coefficient. Performed By: #### CMP #### [facility] ([id number]) [address] [place] [address], [address] [place] [address] BEDSIDE GLUCOSE LAB Collected: 06/24/2024 8:44 PM Status: COMPLETED Source: [facility] TYPE CODE TESTS RESULT OUT OF RANGE REFERENCE UNITS LAB BEDG([facility]) BEDSIDE GLUCOSE LAB 106 High 65-99 mg/dL BEDSIDE GLUCOSE LAB Collected: 06/24/2024 3:58 PM Status: COMPLETED Source: [facility] TYPE CODE TESTS RESULT OUT OF RANGE REFERENCE UNITS LAB BEDG([facility]) BEDSIDE GLUCOSE LAB 113 High 65-99 mg/dL BEDSIDE GLUCOSE LAB Collected: 06/24/2024 10:06 AM Status: COMPLETED Source: [facility] TYPE CODE TESTS RESULT OUT OF RANGE REFERENCE UNITS LAB BEDG([facility]) BEDSIDE GLUCOSE LAB 116 High 65-99 mg/dL POTASSIUM Collected: 06/24/2024 8:21 AM S tatus: COMPLETED Source: [facility] TYPE CODE TESTS RESULT OUT OF RANGE REFERENCE UNITS LAB K([facility]) POTASSIUM 3.7 3.5-5.0 mmol/L Performed By: #### 2823-3, 1 9123-9 #### [facility] ([id number]) [address] [place] [address], [address] [place] [address] MAGNESIUM Collected: 06/24/2024 8:21 AM S tatus: COMPLETED Source: [facility] TYPE CODE TESTS RESULT OUT OF RANGE REFERENCE UNITS LAB MG(INC) MAGNESIUM 1.6 Low 1.8-2.6 mg/dL Performed By: #### 2823-3, 1 9123-9 #### [facility] ([id number]) [address] [place] [address], [address] [place] [address] BEDSIDE GLUCOSE LAB Collected: 06/24/2024 5:32 AM Status: COMPLETED Source: [facility] TYPE CODE TESTS RESULT OUT OF RANGE REFERENCE UNITS LAB BEDG(LOINC) BEDSIDE GLUCOSE LAB 93 65-99 mg/dL COMPREHENSIVE METABOLIC PANEL Collected: 2024 5:32 AM Status: COMPLETED Source: [facility] TYPE CODE TESTS RESULT OUT OF RANGE REFERENCE UNITS LAB NA(LOINC) SODIUM 137 134-146 mmol/L LAB K(LOINC) POTASSIUM 3.8 3.5-5.0 mmol/L LAB CL(LOINC) CHLORIDE 103 98-109 mmol/L LAB CO2(LOINC) CARBON DIOXIDE 22 22-32 mmol/L LAB AGAP(LOINC) ANION GAP 12 5-15 mmol/L LAB BUN(LOINC) BLOOD UREA NITROGEN 7 5-23 mg/dL LAB CRET(LOINC) CREATININE 0.31 Low 0.40-1.00 mg/dL Result Comment: METHOD TRACE ABLE TO IDMS STANDARD LAB GLU(LOINC) GLUCOSE 92 65-99 mg/dL LAB CA(LOINC) CALCIUM 9.2 8.5-10.5 mg/dL LAB TP(LOINC) TOTAL PROTEIN 5.9 Low 6.0-8.0 g/dL LAB ALB(LOINC) ALBUMIN 3.5 3.2-5.3 g/dL LAB ALK(LOINC) ALKALINE PHOSPHATASE 70 39-130 U/L LAB AST(LOINC) AST 12 0-41 U/L LAB ALT1(LOINC) ALT 8 0-31 U/L LAB TBIL(LOINC) BILIRUBIN,TOTAL 0.4 0.3-1.2 mg/d L LAB EGFR(LOINC) eGFR (CKD-EPI) NON-RACE DEPENDENT >90 >59 ml/min/1 .73sq.m Result Comment: Reported eGFR is based on the CKD-EPI 2020 equation that does not use a race coefficient. Performed By: #### 70225-6, CMP #### [facility] ([id number]) [address], [address] [place] [address] DIGOXIN Collected: 06/24/2024 5:32 AM S tatus: COMPLETED Source: [facility] TYPE CODE TESTS RESULT OUT OF RANGE REFERENCE UNITS LAB DIGO(LOINC) DIGOXIN 1.3 0.8-2.0 ng/mL Performed By: #### 33562-4, CMP #### [facility] ([id number]) [address] [place] [address], [address] [place] [address] POTASSIUM Collected: 11:41 PM Status: COMPLETED Source: [facility] TYPE CODE TESTS RESULT OUT OF RANGE REFERENCE UNITS LAB K(LOINC) POTASSIUM 3.8 3.5-5.0 mmol/L Performed By: #### 2823-3, 1 9123-9 #### [facility] ([id number]) [address] [place] [address], [address] [place] [address] MAGNESIUM Collected: 06/23/2024 11:41 PM Status: COMPLETED Source: [facility] TYPE [facility] TESTS RESULT OUT OF RANGE REFERENCE UNITS LAB MG(LOINC) MAGNESIUM 1.7 Low 1.8-2.6 mg/dL Performed By: #### 2823-3, 1 9123-9 #### [facility] ([id number]) [address] [place] [address], [address] [place] [address] BEDSIDE GLUCOSE LAB Collected: 06/23/2024 7:58 PM Status: COMPLETED Source: [facility] TYPE CODE TESTS RESULT OUT OF RANGE REFERENCE UNITS LAB BEDG(LOINC) BEDSIDE GLUCOSE LAB 129 High 65-99 mg/dL POTASSIUM Collected: 06/23/2024 4:29 PM S tatus: COMPLETED Source: [facility] TYPE CODE TESTS RESULT OUT OF RANGE REFERENCE UNITS LAB K(LOINC) POTASSIUM 3.7 3.5-5.0 mmol/L Performed By: #### 2823-3, 1 9123-9 #### [facility] ([id number]) [address] [place] [address], [address] [place] [address] MAGNESIUM Collected: 06/23/2024 4:29 PM S tatus: COMPLETED Source: [facility] TYPE CODE TESTS RESULT OUT OF RANGE REFERENCE UNITS LAB MG(LOINC) MAGNESIUM 1.8 1.8-2.6 mg/dL Performed By: #### 2823-3, 1 9123-9 #### [facility] ([id number]) [address], [address] [place] [address] BEDSIDE GLUCOSE LAB Collected: 06/23/2024 2:49 PM Status: COMPLETED Source: [facility] TYPE CODE TESTS RESULT OUT OF RANGE REFERENCE UNITS LAB BEDG([facility]) BEDSIDE GLUCOSE LAB 127 High 65-99 mg/dL MAGNESIUM Collected: 06/23/2024 9:15 AM S tatus: COMPLETED Source: [facility] TYPE CODE TESTS RESULT OUT OF RANGE REFERENCE UNITS LAB MG(INC) MAGNESIUM 1.7 Low 1.8-2.6 mg/dL Performed By: #### 77901-1 # ### [facility] ([id number]) [address] [place] [address], [address] [place] [address] BEDSIDE GLUCOSE LAB Collected: 06/23/2024 9:03 AM Status: COMPLETED Source: [facility] TYPE CODE TESTS RESULT OUT OF RANGE REFERENCE UNITS LAB BEDG([facility]) BEDSIDE GLUCOSE LAB 120 High 65-99 mg/dL BEDSIDE GLUCOSE LAB Collected: 06/23/2024 5:43 AM Status: COMPLETED Source: [facility] TYPE CODE TESTS RESULT OUT OF RANGE REFERENCE UNITS LAB BEDG([facility]) BEDSIDE GLUCOSE LAB 98 65-99 mg/dL COMPREHENSIVE METABOLIC PANEL Collected: 2024 5:35 AM Status: COMPLETED Source: [facility] TYPE CODE TESTS RESULT OUT OF RANGE REFERENCE UNITS LAB NA(LOINC) SODIUM 139 134-146 mmol/L LAB K(LOINC) POTASSIUM 3.6 3.5-5.0 mmol/L LAB CL(LOINC) CHLORIDE 103 98-109 mmol/L LAB CO2(LOINC) CARBON DIOXIDE 23 22-32 mmol/L LAB AGAP(LOINC) ANION GAP 13 5-15 mmol/L LAB BUN(LOINC) BLOOD UREA NITROGEN 5 5-23 mg/dL LAB CRET(LOINC) CREATININE 0.28 Low 0.40-1.00 mg/dL Result Comment: METHOD TRACE ABLE TO IDMS STANDARD LAB GLU(LOINC) GLUCOSE 98 65-99 mg/dL LAB CA(LOINC) CALCIUM 9.6 8.5-10.5 mg/dL LAB TP(LOINC) TOTAL PROTEIN 6.1 6.0-8.0 g/dL LAB ALB(LOINC) ALBUMIN 3.6 3.2-5.3 g/dL LAB ALK(LOINC) ALKALINE PHOSPHATASE 74 39-130 U/L LAB AST(LOINC) AST 10 0-41 U/L LAB ALT1(LOINC) ALT 8 0-31 U/L LAB TBIL(LOINC) BILIRUBIN,TOTAL 0.3 0.3-1.2 mg/d L LAB EGFR(LOINC) eGFR (CKD-EPI) NON-RACE DEPENDENT >90 >59 ml/min/1 .73sq.m Result Comment: Reported eGFR is based on the CKD-EPI 2020 equation that does not use a race coefficient. Performed By: #### [id number], CMP #### [facility] ([id number]) [address] [place] [address], [place] [address] DIGOXIN Collected: 06/23/2024 5:35 AM S tatus: COMPLETED Source: [facility] TYPE CODE TESTS RESULT OUT OF RANGE REFERENCE UNITS LAB DIGO([facility]) DIGOXIN 1.5 0.8-2.0 ng/mL Performed By: #### [id number], CMP #### [facility] ([id number]) [address] [place] [address], [address] [address] MAGNESIUM Collected: 06/22/2024 11:14 PM Status: COMPLETED Source: [facility] TYPE CODE TESTS RESULT OUT OF RANGE REFERENCE UNITS LAB MG(INC) MAGNESIUM 1.6 Low 1.8-2.6 mg/dL Performed By: #### [id number] # ### [facility] ([id number]) [address] [place] [address], [address] [address] BEDSIDE GLUCOSE LAB Collected: 06/22/2024 9:08 PM Status: COMPLETED Source: [facility] TYPE CODE TESTS RESULT OUT OF RANGE REFERENCE UNITS LAB BEDG([facility]) BEDSIDE GLUCOSE LAB 133 High 65-99 mg/dL POTASSIUM Collected: 06/22/2024 6:10 PM S tatus: COMPLETED Source: [facility] TYPE CODE TESTS RESULT OUT OF RANGE REFERENCE UNITS LAB K(LOINC) POTASSIUM 4.1 3.5-5.0 mmol/L Performed By: #### [id number] ## ## [facility] ([id number]) [address] [place] [address], [address] [place] [address] BEDSIDE GLUCOSE LAB Collected: 06/22/2024 2:40 PM Status: COMPLETED Source: [facility] TYPE CODE TESTS RESULT OUT OF RANGE REFERENCE UNITS LAB BEDG(LOINC) BEDSIDE GLUCOSE LAB 133 High 65-99 mg/dL IONIZED MAGNESIUM Collected: 06/22/2024 2:17 PM Status: COMPLETED Source: [facility] TYPE CODE TESTS RESULT OUT OF RANGE REFERENCE UNITS LAB IMAG(LOINC) IONIZED MAGNESIUM 0.45 0.45-0.74 mmol/L Result Comment: NEW REFERENC E RANGE Performed By: #### 22196-7, 59201-2 #### [facility] ([id number]) [address] [place] [address], [address] [address] MAGNESIUM Collected: 06/22/2024 2:17 PM S tatus: COMPLETED Source: [facility] TYPE CODE TESTS RESULT OUT OF RANGE REFERENCE UNITS LAB MG(LOINC) MAGNESIUM 1.9 1.8-2.6 mg/dL Performed By: #### 84723-9, 50596-0 #### [facility] ([id number]) [address] [place] [address], [address] [address] BEDSIDE GLUCOSE LAB Collected: 06/22/2024 11:12 AM Status: COMPLETED Source: [facility] TYPE CODE TESTS RESULT OUT OF RANGE REFERENCE UNITS LAB BEDG(LOINC) BEDSIDE GLUCOSE LAB 127 High 65-99 mg/dL COMPREHENSIVE METABOLIC PANEL Collected: 2024 5:49 AM Status: COMPLETED Source: [facility] TYPE CODE TESTS RESULT OUT OF RANGE REFERENCE UNITS LAB NA(LOINC) SODIUM 135 134-146 mmol/L LAB K(LOINC) POTASSIUM 3.9 3.5-5.0 mmol/L LAB CL(LOINC) CHLORIDE 102 98-109 mmol/L LAB CO2(LOINC) CARBON DIOXIDE 22 22-32 mmol/L LAB AGAP(LOINC) ANION GAP 11 5-15 mmol/L LAB BUN(LOINC) BLOOD UREA NITROGEN 7 5-23 mg/dL LAB CRET(LOINC) CREATININE 0.30 Low 0.40-1.00 mg/dL Result Comment: METHOD TRACE ABLE TO IDMS STANDARD LAB GLU(LOINC) GLUCOSE 130 High 65-99 mg/dL LAB CA(LOINC) CALCIUM 8.8 8.5-10.5 mg/dL LAB TP(LOINC) TOTAL PROTEIN 6.0 6.0-8.0 g/dL LAB ALB(LOINC) ALBUMIN 3.5 3.2-5.3 g/dL LAB ALK(LOINC) ALKALINE PHOSPHATASE 64 39-130 U/L LAB AST(LOINC) AST 12 0-41 U/L LAB ALT1(LOINC) ALT 8 0-31 U/L LAB TBIL(LOINC) BILIRUBIN,TOTAL 0.4 0.3-1.2 mg/d L LAB EGFR(LOINC) eGFR (CKD-EPI) NON-RACE DEPENDENT >90 >59 ml/min/1 .73sq.m Result Comment: Reported eGFR is based on the CKD-EPI 2020 equation that does not use a race coefficient. Performed By: #### 78216-5, [facility], 30886-4 #### [facility] ([id number]) [address] [place] [address], [address] [address] DIGOXIN Collected: 06/22/2024 5:49 AM S tatus: COMPLETED Source: [facility] TYPE CODE TESTS RESULT OUT OF RANGE REFERENCE UNITS LAB DIGO(LOINC) DIGOXIN 1.6 0.8-2.0 ng/mL Performed By: #### 20768-1, [facility], 24150-9 #### [facility] ([id number]) [address] [place] [address], [address] [address] MAGNESIUM Collected: 06/22/2024 5:49 AM S tatus: COMPLETED Source: [facility] TYPE CODE TESTS RESULT OUT OF RANGE REFERENCE UNITS LAB MG(LOINC) MAGNESIUM 1.7 Low 1.8-2.6 mg/dL Performed By: #### 93529-2, [facility], 57740-7 #### [facility] ([id number]) [address] [facility], [address] [place] [address] UNLISTED LAB TEST Collected: 06/22/2024 5:49 AM Status: COMPLETED Source: [facility] TYPE CODE TESTS RESULT OUT OF RANGE REFERENCE UNITS LAB LOOK(LOINC) UNLISTED LAB TEST Sent to reference lab [facility] GENERIC ORDER Collected: 5:49 AM Status: COMPLETED Source: [facility] TYPE CODE TESTS RESULT OUT OF RANGE REFERENCE UNITS LAB GOTEST(LOINC) TEST NAME ALBERTO MCFADDEN ON NO GEL SERUM LAB GORES(LOINC) TEST RESULT SEE COMMENTS 06/23/2024 12:49 PM Result Comment: NOTE Test Result Flag Unit RefValue Flecainide, S 0.5 mcg/mL REFERENCE VALUE 0.2 - 1.0 (Therapeutic concentration, trough value), >1.0 (Toxic concentration, trough value) ADDITIONAL INFORMATION This test was developed and its performance characteristics determined by [facility] in a manner consistent with CLIA requirements. This test has not been cleared or approved by the U.S. Food and Drug Administration. Test Performed by: [facility] - [address] [address] Heavy Equipment Operator: Mino Cain Ph.D.; CLIA# [id number] BEDSIDE GLUCOSE LAB Collected: 06/22/2024 5:08 AM Status: COMPLETED Source: [facility] TYPE CODE TESTS RESULT OUT OF RANGE REFERENCE UNITS LAB BEDG(LOINC) BEDSIDE GLUCOSE LAB 103 High 65-99 mg/dL DIGOXIN Collected: 06/21/2024 6:19 PM S tatus: COMPLETED Source: [facility] TYPE CODE TESTS RESULT OUT OF RANGE REFERENCE UNITS LAB DIGO(LOINC) DIGOXIN 1.9 0.8-2.0 ng/mL Performed By: #### 86463-5, 2823-3, 88789-0 #### [facility] ([id number]) [address] [place] [address], [address] [place] [address] POTASSIUM Collected: 06/21/2024 6:19 PM S tatus: COMPLETED Source: [facility] TYPE CODE TESTS RESULT OUT OF RANGE REFERENCE UNITS LAB K(INC) POTASSIUM 3.9 3.5-5.0 mmol/L Performed By: #### 77017-1, 2823-3, 06008-0 #### [facility] ([id number]) [address] [place] [address], [facility] [address] [place] [address] MAGNESIUM Collected: 06/21/2024 6:19 PM S tatus: COMPLETED Source: [facility] TYPE CODE TESTS RESULT OUT OF RANGE REFERENCE UNITS LAB MG(INC) MAGNESIUM 1.8 1.8-2.6 mg/dL Performed By: #### 23082-5, 2823-3, 33907-4 #### [facility] ([id number]) [address] [place] [address], [address] [place] [address] BEDSIDE GLUCOSE LAB Collected: 06/21/2024 2:45 PM Status: COMPLETED Source: [facility] TYPE CODE TESTS RESULT OUT OF RANGE REFERENCE UNITS LAB BEDG(LOINC) BEDSIDE GLUCOSE LAB 131 High 65-99 mg/dL BEDSIDE GLUCOSE LAB Collected: 06/21/2024 9:58 AM Status: COMPLETED Source: [facility] TYPE CODE TESTS RESULT OUT OF RANGE REFERENCE UNITS LAB BEDG(LOINC) BEDSIDE GLUCOSE LAB 131 High 65-99 mg/dL COMPREHENSIVE METABOLIC PANEL Collected: 2024 5:37 AM Status: COMPLETED Source: [facility] TYPE CODE TESTS RESULT OUT OF RANGE REFERENCE UNITS LAB NA(LOINC) SODIUM 135 134-146 mmol/L LAB K(LOINC) POTASSIUM 3.6 3.5-5.0 mmol/L LAB CL(LOINC) CHLORIDE 101 98-109 mmol/L LAB CO2(LOINC) CARBON DIOXIDE 23 22-32 mmol/L LAB AGAP(LOINC) ANION GAP 11 5-15 mmol/L LAB BUN(LOINC) BLOOD UREA NITROGEN 7 5-23 mg/dL LAB CRET(LOINC) CREATININE 0.35 Low 0.40-1.00 mg/dL Result Comment: METHOD TRACE ABLE TO IDMS STANDARD LAB GLU(LOINC) GLUCOSE 126 High 65-99 mg/dL LAB CA(LOINC) CALCIUM 10.6 High 8.5-10.5 mg/dL LAB TP(LOINC) TOTAL PROTEIN 6.2 6.0-8.0 g/dL LAB ALB(LOINC) ALBUMIN 3.7 3.2-5.3 g/dL LAB ALK(LOINC) ALKALINE PHOSPHATASE 67 39-130 U/L LAB AST(LOINC) AST 13 0-41 U/L LAB ALT1(LOINC) ALT 8 0-31 U/L LAB TBIL(LOINC) BILIRUBIN,TOTAL 0.4 0.3-1.2 mg/d L LAB EGFR(LOINC) eGFR (CKD-EPI) NON-RACE DEPENDENT >90 >59 ml/min/1 .73sq.m Result Comment: Reported eGFR is based on the CKD-EPI 2020 equation that does not use a race coefficient. Performed By: #### ROSA, 1911 3-9 #### [facility] ([id number]) [address] [place] [address] MAGNESIUM Collected: 06/21/2024 5:37 AM S tatus: COMPLETED Source: [facility] TYPE CODE TESTS RESULT OUT OF RANGE REFERENCE UNITS LAB MG(LOINC) MAGNESIUM 1.5 Low 1.8-2.6 mg/dL Performed By: #### CMP, 191 3-9 #### [facility] ([id number]) [address] [place] [address], [address] [place] [address] BEDSIDE GLUCOSE LAB Collected: 06/21/2024 5:09 AM Status: COMPLETED Source: [facility] TYPE CODE TESTS RESULT OUT OF RANGE REFERENCE UNITS LAB BEDG(LOINC) BEDSIDE GLUCOSE LAB 98 65-99 mg/dL POTASSIUM Collected: 06/20/2024 8:44 PM S tatus: COMPLETED Source: [facility] TYPE CODE TESTS RESULT OUT OF RANGE REFERENCE UNITS LAB K(LOINC) POTASSIUM 3.7 3.5-5.0 mmol/L Performed By: #### 2823-3, 1 9123-9 #### [facility] ([id number]) [address] [place] [address], [address] [place] [address] MAGNESIUM Collected: 06/20/2024 8:44 PM S tatus: COMPLETED Source: [facility] TYPE CODE TESTS RESULT OUT OF RANGE REFERENCE UNITS LAB MG(LOINC) MAGNESIUM 1.9 1.8-2.6 mg/dL Performed By: #### 2823-3, 1 9123-9 #### [facility] ([id number]) [address] [place] [address], [address] [place] [address] BEDSIDE GLUCOSE LAB Collected: 06/20/2024 7:34 PM Status: COMPLETED Source: [facility] TYPE CODE TESTS RESULT OUT OF RANGE REFERENCE UNITS LAB BEDG(LOINC) BEDSIDE GLUCOSE LAB 130 High 65-99 mg/dL BEDSIDE GLUCOSE LAB Collected: 06/20/2024 3:58 PM Status: COMPLETED Source: [facility] TYPE CODE TESTS RESULT OUT OF RANGE REFERENCE UNITS LAB BEDG(LOINC) BEDSIDE GLUCOSE LAB 95 65-99 mg/dL POTASSIUM Collected: 06/20/2024 1:14 PM S tatus: COMPLETED Source: [facility] TYPE CODE TESTS RESULT OUT OF RANGE REFERENCE UNITS LAB K(LOINC) POTASSIUM 3.9 3.5-5.0 mmol/L Performed By: #### 02106-1, 78297-8, 2823-3 #### [facility] ([id number]) [address] [place] [address], [address] [place] [address] MAGNESIUM Collected: 06/20/2024 1:14 PM S tatus: COMPLETED Source: [facility] TYPE CODE TESTS RESULT OUT OF RANGE REFERENCE UNITS LAB MG(LOINC) MAGNESIUM 1.8 1.8-2.6 mg/dL Performed By: #### 97305-0, 65123-9, 2823-3 #### [facility] ([id number]) [address] [facility], [address] [place] [address] DIGOXIN Collected: 06/20/2024 1:14 PM S tatus: COMPLETED Source: [facility] TYPE CODE TESTS RESULT OUT OF RANGE REFERENCE UNITS LAB DIGO([facility]) DIGOXIN 1.9 0.8-2.0 ng/mL Performed By: #### 90310-0, 08646-6, 2823-3 #### [facility] ([id number]) [address] [place] [address], [address] [place] [address] BEDSIDE GLUCOSE LAB Collected: 06/20/2024 1:00 PM Status: COMPLETED Source: [facility] TYPE CODE TESTS RESULT OUT OF RANGE REFERENCE UNITS LAB BEDG([facility]) BEDSIDE GLUCOSE LAB 123 High 65-99 mg/dL COMPREHENSIVE METABOLIC PANEL Collected: 2024 4:52 AM Status: COMPLETED Source: [facility] TYPE CODE TESTS RESULT OUT OF RANGE REFERENCE UNITS LAB NA(LOINC) SODIUM 138 134-146 mmol/L LAB K(LOINC) POTASSIUM 3.9 3.5-5.0 mmol/L LAB CL(LOINC) CHLORIDE 104 98-109 mmol/L LAB CO2(LOINC) CARBON DIOXIDE 25 22-32 mmol/L LAB AGAP(LOINC) ANION GAP 9 5-15 mmol/L LAB BUN(LOINC) BLOOD UREA NITROGEN 6 5-23 mg/dL LAB CRET(LOINC) CREATININE 0.36 Low 0.40-1.00 mg/dL Result Comment: METHOD TRACE ABLE TO IDMS STANDARD LAB GLU(LOINC) GLUCOSE 93 65-99 mg/dL LAB CA(LOINC) CALCIUM 9.4 8.5-10.5 mg/dL LAB TP(LOINC) TOTAL PROTEIN 6.1 6.0-8.0 g/dL LAB ALB(LOINC) ALBUMIN 3.7 3.2-5.3 g/dL LAB ALK(LOINC) ALKALINE PHOSPHATASE 65 39-130 U/L LAB AST(LOINC) AST 13 0-41 U/L LAB ALT1(LOINC) ALT 10 0-31 U/L LAB TBIL(LOINC) BILIRUBIN,TOTAL 0.3 0.3-1.2 mg/d L LAB EGFR(LOINC) eGFR (CKD-EPI) NON-RACE DEPENDENT >90 >59 ml/min/1 .73sq.m Result Comment: Reported eGFR is based on the CKD-EPI 2020 equation that does not use a race coefficient. Performed By: #### 42019-4, CMP #### [facility] ([id number]) [address] [place] [address], [facility] [address] [place] [address] MAGNESIUM Collected: 06/20/2024 4:52 AM S tatus: COMPLETED Source: [facility] TYPE CODE TESTS RESULT OUT OF RANGE REFERENCE UNITS LAB MG(LOINC) MAGNESIUM 1.8 1.8-2.6 mg/dL Performed By: #### 85766-9, CMP #### [facility] ([id number]) [address] [place] [address] BEDSIDE GLUCOSE LAB Collected: 06/19/2024 7:38 PM Status: COMPLETED Source: [facility] TYPE CODE TESTS RESULT OUT OF RANGE REFERENCE UNITS LAB BEDG([facility]) BEDSIDE GLUCOSE LAB 117 High 65-99 mg/dL POTASSIUM Collected: 06/19/2024 7:07 PM S tatus: COMPLETED Source: [facility] TYPE CODE TESTS RESULT OUT OF RANGE REFERENCE UNITS LAB K(LOINC) POTASSIUM 3.5 3.5-5.0 mmol/L Performed By: #### 05118-1, 2823-3 #### [facility] ([id number]) [address] [place] [address], [facility] [address] [place] [address] MAGNESIUM Collected: 06/19/2024 7:07 PM S tatus: COMPLETED Source: [facility] TYPE CODE TESTS RESULT OUT OF RANGE REFERENCE UNITS LAB MG(LOINC) MAGNESIUM 1.7 Low 1.8-2.6 mg/dL Performed By: #### 03019-8, 2823-3 #### [facility] ([id number]) [address] [place] [address], [address] [address] BEDSIDE GLUCOSE LAB Collected: 06/19/2024 2:48 PM Status: COMPLETED Source: [facility] TYPE CODE TESTS RESULT OUT OF RANGE REFERENCE UNITS LAB BEDG(LOINC) BEDSIDE GLUCOSE LAB 108 High 65-99 mg/dL BEDSIDE GLUCOSE LAB Collected: 06/19/2024 12:17 PM Status: COMPLETED Source: [facility] TYPE CODE TESTS RESULT OUT OF RANGE REFERENCE UNITS LAB BEDG(LOINC) BEDSIDE GLUCOSE LAB 91 65-99 mg/dL MAGNESIUM Collected: 06/19/2024 8:54 AM S tatus: COMPLETED Source: [facility] TYPE CODE TESTS RESULT OUT OF RANGE REFERENCE UNITS LAB MG(LOINC) MAGNESIUM 1.9 1.8-2.6 mg/dL Performed By: #### 00186-1 # ### [facility] ([id number]) [address] [place] [address] POTASSIUM Collected: 06/19/2024 6:52 AM S tatus: COMPLETED Source: [facility] TYPE CODE TESTS RESULT OUT OF RANGE REFERENCE UNITS LAB K(INC) POTASSIUM 3.7 3.5-5.0 mmol/L Performed By: #### 2823-3 ## ## [facility] ([id number]) [address] [place] [address] DIGOXIN Collected: 06/19/2024 6:07 AM S tatus: COMPLETED Source: [facility] TYPE CODE TESTS RESULT OUT OF RANGE REFERENCE UNITS LAB DIGO(INC) DIGOXIN 1.6 0.8-2.0 ng/mL Performed By: #### 96986-9 # ### [facility] ([id number]) [address] [place] [address] BEDSIDE GLUCOSE LAB Collected: 06/19/2024 5:11 AM Status: COMPLETED Source: [facility] TYPE CODE TESTS RESULT OUT OF RANGE REFERENCE UNITS LAB BEDG(LOINC) BEDSIDE GLUCOSE LAB 86 65-99 mg/dL COMPREHENSIVE METABOLIC PANEL Collected : 06/19/2024 12:56 AM Status: COMPLETED Source: [facility] TYPE CODE TESTS RESULT OUT OF RANGE REFERENCE UNITS LAB NA(LOINC) SODIUM 137 134-146 mmol/L LAB K(LOINC) POTASSIUM 3.7 3.5-5.0 mmol/L LAB CL(LOINC) CHLORIDE 103 98-109 mmol/L LAB CO2(LOINC) CARBON DIOXIDE 24 22-32 mmol/L LAB AGAP(LOINC) ANION GAP 10 5-15 mmol/L LAB BUN(LOINC) BLOOD UREA NITROGEN 7 5-23 mg/dL LAB CRET(LOINC) CREATININE 0.37 Low 0.40-1.00 mg/dL Result Comment: METHOD TRACE ABLE TO IDMS STANDARD LAB GLU(LOINC) GLUCOSE 100 High 65-99 mg/dL LAB CA(LOINC) CALCIUM 8.7 8.5-10.5 mg/dL LAB TP(LOINC) TOTAL PROTEIN 5.9 Low 6.0-8.0 g/dL LAB ALB(LOINC) ALBUMIN 3.5 3.2-5.3 g/dL LAB ALK(LOINC) ALKALINE PHOSPHATASE 58 39-130 U/L LAB AST(LOINC) AST 11 0-41 U/L LAB ALT1(LOINC) ALT 9 0-31 U/L LAB TBIL(LOINC) BILIRUBIN,TOTAL 0.2 Low 0.3-1.2 mg/d L LAB EGFR(LOINC) eGFR (CKD-EPI) NON-RACE DEPENDENT >90 >59 ml/min/1 .73sq.m Result Comment: Reported eGFR is based on the CKD-EPI 2020 equation that does not use a race coefficient. Performed By: #### 60332-8, CMP #### [facility] ([id number]) [address] [place] [address], [address] [place] [address] MAGNESIUM Collected: 06/19/2024 12:56 AM Status: COMPLETED Source: [facility] TYPE CODE TESTS RESULT OUT OF RANGE REFERENCE UNITS LAB MG(LOINC) MAGNESIUM 1.8 1.8-2.6 mg/dL Performed By: #### 71208-3, CMP #### [facility] ([id number]) [address] [place] [address], [address] [place] [address] BEDSIDE GLUCOSE LAB Collected: 06/18/2024 8:04 PM Status: COMPLETED Source: [facility] TYPE CODE TESTS RESULT OUT OF RANGE REFERENCE UNITS LAB BEDG(LOINC) BEDSIDE GLUCOSE LAB 121 High 65-99 mg/dL UNLISTED LAB TEST Collected: 06/18/2024 6:52 PM Status: COMPLETED Source: [facility] TYPE CODE TESTS RESULT OUT OF RANGE REFERENCE UNITS LAB LOOK(LOINC) UNLISTED LAB TEST Sent to reference lab [facility] GENERIC ORDER Collected: 6:52 PM Status: COMPLETED Source: [facility] TYPE CODE TESTS RESULT OUT OF RANGE REFERENCE UNITS LAB GOTEST([facility]) TEST NAME SANTO FLECAINIDE RED SERUM LAB GORES([facility]) TEST RESULT SEE COMMENTS 06/22/2024 06:36 PM Result Comment: NOTE Test Result Flag Unit RefValue Flecainide, S 0.6 mcg/mL REFERENCE VALUE 0.2 - 1.0 (Therapeutic concentration, trough value), >1.0 (Toxic concentration, trough value) ADDITIONAL INFORMATION This test was developed and its performance characteristics determined by [facility] in a manner consistent with CLIA requirements. This test has not been cleared or approved by the U.S. Food and Drug Administration. Test Performed by: [facility] - [address] [address] Heavy Equipment Operator: Mino Cain Ph.D.; CLIA# [id number] DIGOXIN Collected: 06/18/2024 4:53 PM S tatus: COMPLETED Source: [facility] TYPE CODE TESTS RESULT OUT OF RANGE REFERENCE UNITS LAB DIGO(LOINC) DIGOXIN 1.2 0.8-2.0 ng/mL Performed By: #### 35314-9, 2823-3, 92378-3 #### [facility] ([id number]) [address] [place] [address], [address] [place] [address] POTASSIUM Collected: 06/18/2024 4:53 PM S tatus: COMPLETED Source: [facility] TYPE CODE TESTS RESULT OUT OF RANGE REFERENCE UNITS LAB K(LOINC) POTASSIUM 3.6 3.5-5.0 mmol/L Performed By: #### 20890-0, 2823-3, 70041-3 #### [facility] ([id number]) [address] [place] [address], [address] [place] [address] MAGNESIUM Collected: 06/18/2024 4:53 PM S tatus: COMPLETED Source: [facility] TYPE CODE TESTS RESULT OUT OF RANGE REFERENCE UNITS LAB MG(LOINC) MAGNESIUM 1.9 1.8-2.6 mg/dL Performed By: #### 73640-8, 2823-3, 82777-5 #### [facility] ([id number]) [address] [place] [address], [address] [place] [address] BEDSIDE GLUCOSE LAB Collected: 06/18/2024 2:30 PM Status: COMPLETED Source: [facility] TYPE CODE TESTS RESULT OUT OF RANGE REFERENCE UNITS LAB BEDG(LOINC) BEDSIDE GLUCOSE LAB 141 High 65-99 mg/dL BEDSIDE GLUCOSE LAB Collected: 06/18/2024 10:33 AM Status: COMPLETED Source: [facility] TYPE CODE TESTS RESULT OUT OF RANGE REFERENCE UNITS LAB BEDG(LOINC) BEDSIDE GLUCOSE LAB 126 High 65-99 mg/dL BEDSIDE GLUCOSE LAB Collected: 06/18/2024 6:03 AM Status: COMPLETED Source: [facility] TYPE CODE TESTS RESULT OUT OF RANGE REFERENCE UNITS LAB BEDG(LOINC) BEDSIDE GLUCOSE LAB 112 High 65-99 mg/dL MAGNESIUM Collected: 06/18/2024 5:39 AM S tatus: COMPLETED Source: [facility] TYPE CODE TESTS RESULT OUT OF RANGE REFERENCE UNITS LAB MG(LOINC) MAGNESIUM 1.8 1.8-2.6 mg/dL Performed By: #### 34470-1, CMP #### [facility] ([id number]) [address] [facility], [address] [place] [address] COMPREHENSIVE METABOLIC PANEL Collected: 2024 5:39 AM Status: COMPLETED Source: [facility] TYPE CODE TESTS RESULT OUT OF RANGE REFERENCE UNITS LAB NA(LOINC) SODIUM 137 134-146 mmol/L LAB K(LOINC) POTASSIUM 3.6 3.5-5.0 mmol/L LAB CL(LOINC) CHLORIDE 104 98-109 mmol/L LAB CO2(LOINC) CARBON DIOXIDE 22 22-32 mmol/L LAB AGAP(LOINC) ANION GAP 11 5-15 mmol/L LAB BUN(LOINC) BLOOD UREA NITROGEN 7 5-23 mg/dL LAB CRET(LOINC) CREATININE 0.34 Low 0.40-1.00 mg/dL Result Comment: METHOD TRACE ABLE TO IDMS STANDARD LAB GLU(LOINC) GLUCOSE 105 High 65-99 mg/dL LAB CA(LOINC) CALCIUM 8.8 8.5-10.5 mg/dL LAB TP(LOINC) TOTAL PROTEIN 5.9 Low 6.0-8.0 g/dL LAB ALB(LOINC) ALBUMIN 3.6 3.2-5.3 g/dL LAB ALK(LOINC) ALKALINE PHOSPHATASE 63 39-130 U/L LAB AST(LOINC) AST 12 0-41 U/L LAB ALT1(LOINC) ALT 10 0-31 U/L LAB TBIL(LOINC) BILIRUBIN,TOTAL 0.3 0.3-1.2 mg/d L LAB EGFR(LOINC) eGFR (CKD-EPI) NON-RACE DEPENDENT >90 >59 ml/min/1 .73sq.m Result Comment: Reported eGFR is based on the CKD-EPI 2020 equation that does not use a race coefficient. Performed By: #### 92690-0, CMP #### [facility] ([id number]) [address], [address] [place] [address] BEDSIDE GLUCOSE LAB Collected: 06/17/2024 7:05 PM Status: COMPLETED Source: [facility] TYPE CODE TESTS RESULT OUT OF RANGE REFERENCE UNITS LAB BEDG(LOINC) BEDSIDE GLUCOSE LAB 137 High 65-99 mg/dL POTASSIUM Collected: 06/17/2024 6:53 PM S tatus: COMPLETED Source: [facility] TYPE CODE TESTS RESULT OUT OF RANGE REFERENCE UNITS LAB K(LOINC) POTASSIUM 4.0 3.5-5.0 mmol/L Performed By: #### 37007-0, 2823-3 #### [facility] ([id number]) [address] [place] [address], [address] [place] [address] MAGNESIUM Collected: 06/17/2024 6:53 PM S tatus: COMPLETED Source: [facility] TYPE CODE TESTS RESULT OUT OF RANGE REFERENCE UNITS LAB MG(LOINC) MAGNESIUM 1.7 Low 1.8-2.6 mg/dL Performed By: #### 32542-6, 2823-3 #### [facility] ([id number]) [address] [place] [address], [address] [place] [address] BEDSIDE GLUCOSE LAB Collected: 06/17/2024 3:56 PM Status: COMPLETED Source: [facility] TYPE CODE TESTS RESULT OUT OF RANGE REFERENCE UNITS LAB BEDG(LOINC) BEDSIDE GLUCOSE LAB 147 High 65-99 mg/dL BEDSIDE GLUCOSE LAB Collected: 06/17/2024 12:41 PM Status: COMPLETED Source: [facility] TYPE CODE TESTS RESULT OUT OF RANGE REFERENCE UNITS LAB BEDG(LOINC) BEDSIDE GLUCOSE LAB 125 High 65-99 mg/dL POTASSIUM Collected: 10:52 AM Status: COMPLETED Source: [facility] TYPE CODE TESTS RESULT OUT OF RANGE REFERENCE UNITS LAB K(LOINC) POTASSIUM 3.5 3.5-5.0 mmol/L Performed By: #### 2823-3 ## ## [facility] ([id number]) [address] [place] [address], [address] [place] [address] BEDSIDE GLUCOSE LAB Collected: 06/17/2024 6:06 AM Status: COMPLETED Source: [facility] TYPE CODE TESTS RESULT OUT OF RANGE REFERENCE UNITS LAB BEDG(LOINC) BEDSIDE GLUCOSE LAB 106 High 65-99 mg/dL DIGOXIN Collected: 06/17/2024 5:06 AM S tatus: COMPLETED Source: [facility] TYPE CODE TESTS RESULT OUT OF RANGE REFERENCE UNITS LAB DIGO(LOINC) DIGOXIN 1.1 0.8-2.0 ng/mL Performed By: #### ROSA, 1053 5-3 #### [facility] ([id number]) [address], [address] [place] [address] COMPREHENSIVE METABOLIC PANEL Collected: 2024 5:06 AM Status: COMPLETED Source: [facility] TYPE CODE TESTS RESULT OUT OF RANGE REFERENCE UNITS LAB NA(LOINC) SODIUM 137 134-146 mmol/L LAB K(LOINC) POTASSIUM 3.5 3.5-5.0 mmol/L LAB CL(LOINC) CHLORIDE 103 98-109 mmol/L LAB CO2(LOINC) CARBON DIOXIDE 20 Low 22-32 mmol/L LAB AGAP(LOINC) ANION GAP 14 5-15 mmol/L LAB BUN(LOINC) BLOOD UREA NITROGEN 7 5-23 mg/dL LAB CRET(LOINC) CREATININE 0.34 Low 0.40-1.00 mg/dL Result Comment: METHOD TRACE ABLE TO IDMS STANDARD LAB GLU(LOINC) GLUCOSE 115 High 65-99 mg/dL LAB CA(LOINC) CALCIUM 9.2 8.5-10.5 mg/dL LAB TP(LOINC) TOTAL PROTEIN 6.1 6.0-8.0 g/dL LAB ALB(LOINC) ALBUMIN 3.7 3.2-5.3 g/dL LAB ALK(LOINC) ALKALINE PHOSPHATASE 64 39-130 U/L LAB AST(LOINC) AST 11 0-41 U/L LAB ALT1(LOINC) ALT 9 0-31 U/L LAB TBIL(LOINC) BILIRUBIN,TOTAL 0.4 0.3-1.2 mg/d L LAB EGFR(LOINC) eGFR (CKD-EPI) NON-RACE DEPENDENT >90 >59 ml/min/1 .73sq.m Result Comment: Reported eGFR is based on the CKD-EPI 2020 equation that does not use a race coefficient. Performed By: #### ROSA, 1053 5-3 #### [facility] ([id number]) [address], [address] [place] [address] BEDSIDE GLUCOSE LAB Collected: 06/16/2024 7:49 PM Status: COMPLETED Source: [facility] TYPE CODE TESTS RESULT OUT OF RANGE REFERENCE UNITS LAB BEDG(LOINC) BEDSIDE GLUCOSE LAB 141 High 65-99 mg/dL BEDSIDE GLUCOSE LAB Collected: 06/16/2024 3:07 PM Status: COMPLETED Source: [facility] TYPE CODE TESTS RESULT OUT OF RANGE REFERENCE UNITS LAB BEDG(LOINC) BEDSIDE GLUCOSE LAB 119 High 65-99 mg/dL BEDSIDE GLUCOSE LAB Collected: 06/16/2024 12:02 PM Status: COMPLETED Source: [facility] TYPE CODE TESTS RESULT OUT OF RANGE REFERENCE UNITS LAB BEDG(LOINC) BEDSIDE GLUCOSE LAB 111 High 65-99 mg/dL UNLISTED LAB TEST Collected: 06/16/2024 7:35 AM Status: COMPLETED Source: [facility] TYPE CODE TESTS RESULT OUT OF RANGE REFERENCE UNITS LAB LOOK(LOINC) UNLISTED LAB TEST Sent to reference lab [facility] ORDER Collected: 7:35 AM Status: COMPLETED Source: [facility] TYPE CODE TESTS RESULT OUT OF RANGE REFERENCE UNITS LAB GOTEST(LOINC) TEST NAME [facility](LOINC) TEST RESULT SEE COMMENTS 06/18/2024 03:43 PM Result Comment: NOTE Test Result Flag Unit RefValue Flecainide, S 0.3 mcg/mL REFERENCE VALUE 0.2 - 1.0 (Therapeutic concentration, trough value), >1.0 (Toxic concentration, trough value) ADDITIONAL INFORMATION This test was developed and its performance characteristics determined by [facility] in a manner consistent with CLIA requirements. This test has not been cleared or approved by the U.S. Food and Drug Administration. Test Performed by: [facility] [address] [place] [address] Heavy Equipment Operator: Mino Cain Ph.D.; CLIA# [id number] COMPREHENSIVE METABOLIC PANEL Collected: 2024 5:27 AM Status: COMPLETED Source: [facility] TYPE CODE TESTS RESULT OUT OF RANGE REFERENCE UNITS LAB NA(LOINC) SODIUM 137 134-146 mmol/L LAB K(LOINC) POTASSIUM 3.5 3.5-5.0 mmol/L LAB CL(LOINC) CHLORIDE 104 98-109 mmol/L LAB CO2(LOINC) CARBON DIOXIDE 22 22-32 mmol/L LAB AGAP(LOINC) ANION GAP 11 5-15 mmol/L LAB BUN(LOINC) BLOOD UREA NITROGEN 8 5-23 mg/dL LAB CRET(LOINC) CREATININE 0.33 Low 0.40-1.00 mg/dL Result Comment: METHOD TRACE ABLE TO IDMS STANDARD LAB GLU(LOINC) GLUCOSE 99 65-99 mg/dL LAB CA(LOINC) CALCIUM 8.9 8.5-10.5 mg/dL LAB TP(LOINC) TOTAL PROTEIN 6.0 6.0-8.0 g/dL LAB ALB(LOINC) ALBUMIN 3.6 3.2-5.3 g/dL LAB ALK(LOINC) ALKALINE PHOSPHATASE 63 39-130 U/L LAB AST(LOINC) AST 15 0-41 U/L LAB ALT1(LOINC) ALT 8 0-31 U/L LAB TBIL(LOINC) BILIRUBIN,TOTAL 0.4 0.3-1.2 mg/d L LAB EGFR(LOINC) eGFR (CKD-EPI) NON-RACE DEPENDENT >90 >59 ml/min/1 .73sq.m Result Comment: Reported eGFR is based on the CKD-EPI 2020 equation that does not use a race coefficient. Performed By: #### CMP #### [facility] ([id number]) [address], [address] [place] [address] BEDSIDE GLUCOSE LAB Collected: 06/16/2024 5:26 AM Status: COMPLETED Source: [facility] TYPE CODE TESTS RESULT OUT OF RANGE REFERENCE UNITS LAB BEDG([facility]) BEDSIDE GLUCOSE LAB 108 High 65-99 mg/dL BEDSIDE GLUCOSE LAB Collected: 06/15/2024 8:17 PM Status: COMPLETED Source: [facility] TYPE CODE TESTS RESULT OUT OF RANGE REFERENCE UNITS LAB BEDG([facility]) BEDSIDE GLUCOSE LAB 111 High 65-99 mg/dL DIGOXIN Collected: 06/15/2024 7:55 PM S tatus: COMPLETED Source: [facility] TYPE CODE TESTS RESULT OUT OF RANGE REFERENCE UNITS LAB DIGO([facility]) DIGOXIN 0.4 Low 0.8-2.0 ng/mL Performed By: #### 85512-9 # ### [facility] ([id number]) [address] [place] [address], [address] [place] [address] MAGNESIUM Collected: 06/15/2024 6:38 PM S tatus: COMPLETED Source: [facility] TYPE CODE TESTS RESULT OUT OF RANGE REFERENCE UNITS LAB MG([facility]) MAGNESIUM 1.9 1.8-2.6 mg/dL Performed By: #### 53761-7 # ### [facility] ([id number]) [address] [place] [address], [address] [place] [address] BEDSIDE GLUCOSE LAB Collected: 06/15/2024 1:16 PM Status: COMPLETED Source: [facility] TYPE CODE TESTS RESULT OUT OF RANGE REFERENCE UNITS LAB BEDG([facility]) BEDSIDE GLUCOSE LAB 106 High 65-99 mg/dL [facility] ORDER Collected: 12:09 PM Status: COMPLETED Source: [facility] TYPE CODE TESTS RESULT OUT OF RANGE REFERENCE UNITS LAB PRAKASHEST([facility]) TEST NAME [facility]) TEST RESULT SEE COMMENTS 06/16/2024 02:04 PM Result Comment: NOTE Test Result Flag Unit RefValue Flecainide, S 0.4 mcg/mL REFERENCE VALUE 0.2 - 1.0 (Therapeutic concentration, trough value), >1.0 (Toxic concentration, trough value) ADDITIONAL INFORMATION This test was developed and its performance characteristics determined by [facility] in a manner consistent with CLIA requirements. This test has not been cleared or approved by the U.S. Food and Drug Administration. Test Performed by: [facility] [address] [place] [address] Heavy Equipment Operator: Mino Cain Ph.D.; CLIA# [id number] BEDSIDE GLUCOSE LAB Collected: 06/15/2024 10:24 AM Status: COMPLETED Source: [facility] TYPE CODE TESTS RESULT OUT OF RANGE REFERENCE UNITS LAB BEDG([facility]) BEDSIDE GLUCOSE LAB 119 High 65-99 mg/dL MAGNESIUM Collected: 06/15/2024 10:05 AM Status: COMPLETED Source: [facility] TYPE CODE TESTS RESULT OUT OF RANGE REFERENCE UNITS LAB MG(LOINC) MAGNESIUM 1.7 Low 1.8-2.6 mg/dL Performed By: #### 64676-6 # ### [facility] ([id number]) [facility] [address] [place] [address] POTASSIUM Collected: 06/15/2024 6:59 AM S tatus: COMPLETED Source: [facility] TYPE CODE TESTS RESULT OUT OF RANGE REFERENCE UNITS LAB K(LOINC) POTASSIUM 3.8 3.5-5.0 mmol/L Performed By: #### 2823-3 ## ## [facility] ([id number]) [address] [place] [address], [address] [place] [address] BEDSIDE GLUCOSE LAB Collected: 06/15/2024 5:48 AM Status: COMPLETED Source: [facility] TYPE CODE TESTS RESULT OUT OF RANGE REFERENCE UNITS LAB BEDG([facility]) BEDSIDE GLUCOSE LAB 91 65-99 mg/dL POTASSIUM Collected: 12:48 AM Status: COMPLETED Source: [facility] TYPE CODE TESTS RESULT OUT OF RANGE REFERENCE UNITS LAB K(LOINC) POTASSIUM 3.7 3.5-5.0 mmol/L Performed By: #### 2823-3, 1 9123-9 #### [facility] ([id number]) [address], [address] [place] [address] MAGNESIUM Collected: 06/15/2024 12:48 AM Status: COMPLETED Source: [facility] TYPE CODE TESTS RESULT OUT OF RANGE REFERENCE UNITS LAB MG(LOINC) MAGNESIUM 1.9 1.8-2.6 mg/dL Performed By: #### 2823-3, 1 9123-9 #### [facility] ([id number]) [address] [place] [address], [address] [place] [address] BEDSIDE GLUCOSE LAB Collected: 06/14/2024 7:15 PM Status: COMPLETED Source: [facility] TYPE CODE TESTS RESULT OUT OF RANGE REFERENCE UNITS LAB BEDG(LOINC) BEDSIDE GLUCOSE LAB 114 High 65-99 mg/dL POTASSIUM Collected: 06/14/2024 6:58 PM S tatus: COMPLETED Source: [facility] TYPE [facility] TESTS RESULT OUT OF RANGE REFERENCE UNITS LAB K(LOINC) POTASSIUM 3.5 3.5-5.0 mmol/L Performed By: #### 17525-1, 2823-3 #### [facility] ([id number]) [address] [place] [address], [address] [place] [address] MAGNESIUM Collected: 06/14/2024 6:58 PM S tatus: COMPLETED Source: [facility] TYPE CODE TESTS RESULT OUT OF RANGE REFERENCE UNITS LAB MG(LOINC) MAGNESIUM 1.7 Low 1.8-2.6 mg/dL Performed By: #### 20300-4, 2823-3 #### [facility] ([id number]) [address] [place] [address], [address] [place] [address] BEDSIDE GLUCOSE LAB Collected: 06/14/2024 1:34 PM Status: COMPLETED Source: [facility] TYPE CODE TESTS RESULT OUT OF RANGE REFERENCE UNITS LAB BEDG(LOINC) BEDSIDE GLUCOSE LAB 102 High 65-99 mg/dL BEDSIDE GLUCOSE LAB Collected: 06/14/2024 11:06 AM Status: COMPLETED Source: [facility] TYPE CODE TESTS RESULT OUT OF RANGE REFERENCE UNITS LAB BEDG(LOINC) BEDSIDE GLUCOSE LAB 111 High 65-99 mg/dL BEDSIDE GLUCOSE LAB Collected: 06/14/2024 7:00 AM Status: COMPLETED Source: [facility] TYPE CODE TESTS RESULT OUT OF RANGE REFERENCE UNITS LAB BEDG(LOINC) BEDSIDE GLUCOSE LAB 127 High 65-99 mg/dL BASIC METABOLIC PANL Collected: 06/14/2024 5:12 AM Status: COMPLETED Source: [facility] TYPE CODE TESTS RESULT OUT OF RANGE REFERENCE UNITS LAB NA(LOINC) SODIUM 140 134-146 mmol/L LAB K(LOINC) POTASSIUM 3.8 3.5-5.0 mmol/L LAB CL(LOINC) CHLORIDE 106 98-109 mmol/L LAB CO2(LOINC) CARBON DIOXIDE 24 22-32 mmol/L LAB AGAP(LOINC) ANION GAP 10 5-15 mmol/L LAB BUN(LOINC) BLOOD UREA NITROGEN 8 5-23 mg/dL LAB CRET(LOINC) CREATININE 0.41 0.40-1.00 mg/dL Result Comment: METHOD TRACE ABLE TO IDMS STANDARD LAB GLU(LOINC) GLUCOSE 97 65-99 mg/dL LAB CA(LOINC) CALCIUM 9.1 8.5-10.5 mg/dL LAB EGFR(LOINC) eGFR (CKD-EPI) NON-RACE DEPENDENT >90 >59 ml/min/1. 73sq.m Result Comment: Reported eGFR is based on the CKD-EPI 2020 equation that does not use a race coefficient. Performed By: #### ABRAHAN, 1911 3- #### [facility] ([id number]) [address], [address] [place] [address] MAGNESIUM Collected: 06/14/2024 5:12 AM S tatus: COMPLETED Source: [facility] TYPE CODE TESTS RESULT OUT OF RANGE REFERENCE UNITS LAB MG(LOINC) MAGNESIUM 1.6 Low 1.8-2.6 mg/dL Performed By: #### ABRAHAN, 1911 3-9 #### [facility] ([id number]) [address] [place] [address], [address] [place] [address] POTASSIUM Collected: 12:14 AM Status: COMPLETED Source: [facility] TYPE [facility] TESTS RESULT OUT OF RANGE REFERENCE UNITS LAB K(LOINC) POTASSIUM 3.5 3.5-5.0 mmol/L Performed By: #### 2823-3 ## ## [facility] ([id number]) [address] [place] [address], [address] [place] [address] BEDSIDE GLUCOSE LAB Collected: 06/13/2024 8:02 PM Status: COMPLETED Source: [facility] TESTS RESULT OUT OF RANGE REFERENCE UNITS LAB BEDG(LOINC) BEDSIDE GLUCOSE LAB 100 High 65-99 mg/dL POTASSIUM Collected: 06/13/2024 6:09 PM S tatus: COMPLETED Source: [facility] TESTS RESULT OUT OF RANGE REFERENCE UNITS LAB K(LOINC) POTASSIUM 3.5 3.5-5.0 mmol/L Performed By: #### 2823-3, 1 9123-9 #### [facility] ([id number]) [address] [place] [address], [address] [address] MAGNESIUM Collected: 06/13/2024 6:09 PM S tatus: COMPLETED Source: [facility] TESTS RESULT OUT OF RANGE REFERENCE UNITS LAB MG(LOINC) MAGNESIUM 2.1 1.8-2.6 mg/dL Performed By: #### 2823-3, 1 9123-9 #### [facility] ([id number]) [address] [place] [address], [address] [place] [address] BEDSIDE GLUCOSE LAB Collected: 06/13/2024 2:55 PM Status: COMPLETED Source: [facility] TYPE CODE TESTS RESULT OUT OF RANGE REFERENCE UNITS LAB BEDG(LOINC) BEDSIDE GLUCOSE LAB 126 High 65-99 mg/dL BEDSIDE GLUCOSE LAB Collected: 06/13/2024 10:01 AM Status: COMPLETED Source: [facility] TYPE CODE TESTS RESULT OUT OF RANGE REFERENCE UNITS LAB BEDG(LOINC) BEDSIDE GLUCOSE LAB 123 High 65-99 mg/dL BASIC METABOLIC PANL Collected: 06/13/2024 6:54 AM Status: COMPLETED Source: [facility] TYPE CODE TESTS RESULT OUT OF RANGE REFERENCE UNITS LAB NA(LOINC) SODIUM 140 134-146 mmol/L LAB K(LOINC) POTASSIUM 3.4 Low 3.5-5.0 mmol/L LAB CL(LOINC) CHLORIDE 106 98-109 mmol/L LAB CO2(LOINC) CARBON DIOXIDE 24 22-32 mmol/L LAB AGAP(LOINC) ANION GAP 10 5-15 mmol/L LAB BUN(LOINC) BLOOD UREA NITROGEN 6 5-23 mg/dL LAB CRET(LOINC) CREATININE 0.42 0.40-1.00 mg/dL Result Comment: METHOD TRACE ABLE TO IDMS STANDARD LAB GLU(LOINC) GLUCOSE 95 65-99 mg/dL LAB CA(LOINC) CALCIUM 8.9 8.5-10.5 mg/dL LAB EGFR(LOINC) eGFR (CKD-EPI) NON-RACE DEPENDENT >90 >59 ml/min/1. 73sq.m Result Comment: Reported eGFR is based on the CKD-EPI 2020 equation that does not use a race coefficient. Performed By: #### ABRAHAN, 191 3- #### [facility] ([id number]) [address] [place] [address], [address] [place] [address] MAGNESIUM Collected: 06/13/2024 6:54 AM S tatus: COMPLETED Source: [facility] TYPE CODE TESTS RESULT OUT OF RANGE REFERENCE UNITS LAB MG(LOINC) MAGNESIUM 1.5 Low 1.8-2.6 mg/dL Performed By: #### ABRAHAN, 2 3-9 #### [facility] ([id number]) [address] [place] [address], [address] [place] [address] BEDSIDE GLUCOSE LAB Collected: 06/13/2024 5:54 AM Status: COMPLETED Source: [facility] TYPE CODE TESTS RESULT OUT OF RANGE REFERENCE UNITS LAB BEDG(LOINC) BEDSIDE GLUCOSE LAB 94 65-99 mg/dL DIGOXIN Collected: 06/12/2024 7:05 PM S tatus: COMPLETED Source: [facility] TYPE CODE TESTS RESULT OUT OF RANGE REFERENCE UNITS LAB DIGO(LOINC) DIGOXIN 0.4 Low 0.8-2.0 ng/mL Performed By: #### 24172-9, 15789-1, 2823-3 #### [facility] ([id number]) [address] [place] [address], [address] [place] [address] POTASSIUM Collected: 06/12/2024 7:05 PM S tatus: COMPLETED Source: [facility] TYPE CODE TESTS RESULT OUT OF RANGE REFERENCE UNITS LAB K(LOINC) POTASSIUM 3.4 Low 3.5-5.0 mmol/L Performed By: #### 53592-3, 64243-0, 2823-3 #### [facility] ([id number]) [address] [place] [address], [facility] [address] [place] [address] MAGNESIUM Collected: 06/12/2024 7:05 PM S tatus: COMPLETED Source: [facility] TYPE CODE TESTS RESULT OUT OF RANGE REFERENCE UNITS LAB MG(LOINC) MAGNESIUM 1.9 1.8-2.6 mg/dL Performed By: #### 49457-1, 21079-3, 2823-3 #### [facility] ([id number]) [address] [place] [address], [facility] [address] [place] [address] BEDSIDE GLUCOSE LAB Collected: 06/12/2024 6:30 PM Status: COMPLETED Source: [facility] TYPE CODE TESTS RESULT OUT OF RANGE REFERENCE UNITS LAB BEDG(LOINC) BEDSIDE GLUCOSE LAB 118 High 65-99 mg/dL BEDSIDE GLUCOSE LAB Collected: 06/12/2024 1:09 PM Status: COMPLETED Source: [facility] TYPE CODE TESTS RESULT OUT OF RANGE REFERENCE UNITS LAB BEDG(LOINC) BEDSIDE GLUCOSE LAB 114 High 65-99 mg/dL 3RD HR GTT Collected: 06/12/2024 10:08 AM Status: COMPLETED Source: [facility] TYPE CODE TESTS RESULT OUT OF RANGE REFERENCE UNITS LAB GLU3(LOINC) 3RD HR GTT 123 High 65-99 mg/dL Performed By: #### 67656-0 # ### [facility] ([id number]) [address] [place] [address] 2ND HR GTT 100GM LOAD Collected: 06/12/2024 8:4 6 AM Status: COMPLETED Source: [facility] TYPE CODE TESTS RESULT OUT OF RANGE REFERENCE UNITS LAB 100GT2(LOINC) 2ND HR GTT 100GM LOAD 175 High 70-139 mg/dL Result Comment: Fourth International Workshop Conference: Recommendations and Rationale for Screening and Diagnosis of Gestational Diabetes Mellitus 2 or more of the following must be met or exceeded for a positive diagnosis. FASTING >=95mg/dL 1hr post 100g load >=180mg/dL 2hr post 100g load >=155mg/dL 3hr post 100g load >=140mg/dL Performed By: #### 1514-9 ## ## [facility] ([id number]) [address] [place] [address] 1ST HR GTT Collected: 06/12/2024 7:51 AM S tatus: COMPLETED Source: [facility] TESTS RESULT OUT OF RANGE REFERENCE UNITS LAB GLU1(LOINC) 1ST HR GTT 187 High 120-170 mg/dL Performed By: #### 04293-3 # ### [facility] ([id number]) [address] [place] [address] BEDSIDE GLUCOSE LAB Collected: 06/12/2024 6:51 AM Status: COMPLETED Source: [facility] TYPE CODE TESTS RESULT OUT OF RANGE REFERENCE UNITS LAB BEDG(LOINC) BEDSIDE GLUCOSE LAB 102 High 65-99 mg/dL FASTING GTT Collected: 06/12/2024 6:51 AM S tatus: COMPLETED Source: [facility] CODE TESTS RESULT OUT OF RANGE REFERENCE UNITS LAB GLUF(LOINC) FASTING GTT 95 65-99 mg/dL Performed By: #### 1558-6 ## ## [facility] ([id number]) [address] [place] [address] BASIC METABOLIC PANL Collected: 06/12/2024 6:51 AM Status: COMPLETED Source: [facility] TYPE CODE TESTS RESULT OUT OF RANGE REFERENCE UNITS LAB NA(LOINC) SODIUM 141 134-146 mmol/L LAB K(LOINC) POTASSIUM 3.3 Low 3.5-5.0 mmol/L LAB CL(LOINC) CHLORIDE 107 98-109 mmol/L LAB CO2(LOINC) CARBON DIOXIDE 24 22-32 mmol/L LAB AGAP(LOINC) ANION GAP 10 5-15 mmol/L LAB BUN(LOINC) BLOOD UREA NITROGEN 5 5-23 mg/dL LAB CRET(LOINC) CREATININE 0.42 0.40-1.00 mg/dL Result Comment: METHOD TRACE ABLE TO IDMS STANDARD LAB GLU(LOINC) GLUCOSE 94 65-99 mg/dL LAB CA(LOINC) CALCIUM 9.1 8.5-10.5 mg/dL LAB EGFR(LOINC) eGFR (CKD-EPI) NON-RACE DEPENDENT >90 >59 ml/min/1. 73sq.m Result Comment: Reported eGFR is based on the CKD-EPI 2020 equation that does not use a race coefficient. Performed By: #### 52610-4, BMP #### [facility] ([id number]) [address] [place] [address], [address] [address] MAGNESIUM Collected: 06/12/2024 6:51 AM S tatus: COMPLETED Source: [facility] TYPE CODE TESTS RESULT OUT OF RANGE REFERENCE UNITS LAB MG(LOINC) MAGNESIUM 1.4 Low 1.8-2.6 mg/dL Performed By: #### 55010-0, BMP #### [facility] ([id number]) [address] [place] [address], [address] [place] [address] DRUG SCREEN, URINE Collected: 06/11/2024 5:00 PM Sta tus: COMPLETED Source: [facility] TYPE CODE TESTS RESULT OUT OF RANGE REFERENCE UNITS LAB AMPH(LOINC) AMPHETAMINE/METH AM P Negative (qualifier value) NEG Result Comment: AMPH/METH sc reening cut off = 1000 ng/mL LAB ANIKA(LOINC) BARBITURATES Negative (qualifier value) NEG Result Comment: Barbiturates screening cut off value = 200 ng/mL LAB BENZO(LOINC) BENZODIAZEPINES Negative (qualifier value) NEG Result Comment: Benzodiazepi alexander screening cut off value = 200 ng/mL LAB THC(LOINC) CANNABINOIDS Negative (qualifier value) NEG Result Comment: Cannabinoids /THC screening cut off value = 50 ng/mL LAB COKE(LOINC) COCAINE METABOLITE Negative (qualifier value) NEG Result Comment: Cocaine scre ening cut off value = 300 ng/mL LAB OPIAT(LOINC) OPIATES Negative (qualifier value) NEG Result Comment: Opiates scre ening cut off value = 300 ng/mL NOTE: This test is used for the detection of codeine, hydrocodone (>1000 ng/mL), morphine and hydromorphone (>900 ng/mL) in urine. LAB PCP(LOINC) PHENCYCLIDINE Negative (qualifier value) NEG Result Comment: Phencyclidin e screening cut off value = 25 ng/mL LAB OXYX(LOINC) OXYCODONE Negative (qualifier value) NEG Result Comment: Oxycodone sc reening cut off value = 300 ng/mL NOTE: This test is used for the detection of oxycodone and oxymorphone in urine. LAB METH(LOINC) METHADONE Negative (qualifier value) NEG Result Comment: Methadone sc reening cut off value = 300 ng/mL. LAB MDMA(LOINC) ECSTASY Negative (qualifier value) NEG Result Comment: Ecstasy scre ening cut off value = 500 ng/mL This report is intended for use in clinical monitoring or management of patients. Performed By: #### DSU #### [facility] ([id number]) [address] [place] [address], [address] [place] [address] CBC AND AUTO DIFF Collected: 06/11/2024 3:22 PM Status: COMPLETED Source: [facility] TYPE CODE TESTS RESULT OUT OF RANGE REFERENCE UNITS LAB WBC(LOINC) WBC COUNT 8.9 4.0-11.0 X10E9/L LAB RBC(LOINC) RBC COUNT 4.30 3.80-5.20 X10E12/L LAB HGB(LOINC) HEMOGLOBIN 12.3 11.7-15.5 g/dL LAB HCT(LOINC) HEMATOCRIT 36.3 35-47 % LAB MCV(LOINC) MCV 85 80-100 fL LAB MCH(LOINC) MCH 28.6 27-34 pg LAB MCHC(LOINC) MCHC 33.8 32-36 g/dL LAB RDW(LOINC) RDW 13.8 11.5-15.0 % LAB PLTC(LOINC) PLATELET COUNT 231 150-450 X10E9 /L LAB MPV(LOINC) MPV 7.1 7-12 fL LAB NEUT(LOINC) % NEUTROPHILS 75.2 % LAB LYMP(LOINC) % LYMPHOCYTES 18.3 % LAB MONO(LOINC) % MONOCYTES 5.7 % LAB EOS(LOINC) % EOSINOPHILS 0.4 % LAB BASO(LOINC) % BASOPHILS 0.4 % LAB ANEUT(LOINC) ABSOLUTE NEUTROPHIL 6.7 High 1.5-6.6 X10E9/L LAB ALYMP(LOINC) ABSOLUTE LYMPHOCYTE 1.6 1.0-3.5 X10E9/L LAB AMONO(LOINC) ABSOLUTE MONOCYTE 0.5 0-0.9 X10E9/L LAB AEOS(LOINC) ABSOLUTE EOSINOPHIL 0.0 0.0-0.4 X10E9/L LAB ABASO(LOINC) ABSOLUTE BASOPHIL 0.0 0.0-0.2 X10E9/L Performed By: #### CBCA, 191 23-9, 58560-6, 2777-1, CMP, 87266-3 #### [facility] ([id number]) [address] [place] [address], [address] [place] [address] COMPREHENSIVE METABOLIC PANEL Collected: 2024 3:22 PM Status: COMPLETED Source: [facility] TYPE CODE TESTS RESULT OUT OF RANGE REFERENCE UNITS LAB NA(LOINC) SODIUM 141 134-146 mmol/L LAB K(LOINC) POTASSIUM 3.4 Low 3.5-5.0 mmol/L LAB CL(LOINC) CHLORIDE 109 98-109 mmol/L LAB CO2(LOINC) CARBON DIOXIDE 20 Low 22-32 mmol/L LAB AGAP(LOINC) ANION GAP 12 5-15 mmol/L LAB BUN(LOINC) BLOOD UREA NITROGEN 5 5-23 mg/dL LAB CRET(LOINC) CREATININE 0.44 0.40-1.00 mg/dL Result Comment: METHOD TRACE ABLE TO IDMS STANDARD LAB GLU(LOINC) GLUCOSE 79 65-99 mg/dL LAB CA(LOINC) CALCIUM 8.8 8.5-10.5 mg/dL LAB TP(LOINC) TOTAL PROTEIN 6.2 6.0-8.0 g/dL LAB ALB(LOINC) ALBUMIN 3.6 3.2-5.3 g/dL LAB ALK(LOINC) ALKALINE PHOSPHATASE 64 39-130 U/L LAB AST(LOINC) AST 18 0-41 U/L LAB ALT1(LOINC) ALT 10 0-31 U/L LAB TBIL(LOINC) BILIRUBIN,TOTAL 0.2 Low 0.3-1.2 mg/d L LAB EGFR(LOINC) eGFR (CKD-EPI) NON-RACE DEPENDENT >90 >59 ml/min/1 .73sq.m Result Comment: Reported eGFR is based on the CKD-EPI 2020 equation that does not use a race coefficient. Performed By: #### LYNN, 191 23-9, 38813-5, 2777-1, [facility], 96330-7 #### [facility] ([id number]) [address] [place] [address], [facility] [address] [place] [address] MAGNESIUM Collected: 06/11/2024 3:22 PM S tatus: COMPLETED Source: [facility] TYPE CODE TESTS RESULT OUT OF RANGE REFERENCE UNITS LAB MG(LOINC) MAGNESIUM 1.7 Low 1.8-2.6 mg/dL Performed By: #### LYNN, 191 23-9, 92320-2, 2777-1, [facility], 97019-3 #### [facility] ([id number]) [address] [place] [address], [address] [place] [address] VITAMIN D 25 HYD TOT Collected: 06/11/2024 3:22 PM Status: COMPLETED Source: [facility] TYPE CODE TESTS RESULT OUT OF RANGE REFERENCE UNITS LAB VITD(LOINC) VITAMIN D 25 HYD TOT 23.3 Low 30-100 ng/mL Result Comment: Vitamin D status 25 [place] Vitamin D Deficiency <20 ng/mL Insufficiency 20-29 ng/mL Sufficiency 30-100 ng/mL Toxicity >100 ng/mL NOTE: A pediatric reference range has not been established by the urban forester of this kit. The [place] [employer] recommends a Vitamin D level of = or >20ng/mL in infants and children. Performed By: #### SALASA, 191 23-9, 42464-8, 2777-1, CMP, 52234-8 #### [facility] ([id number]) [address] [place] [address], [address] [place] [address] PHOSPHORUS Collected: 06/11/2024 3:22 PM S tatus: COMPLETED Source: [facility] TYPE CODE TESTS RESULT OUT OF RANGE REFERENCE UNITS LAB PHOS(LOINC) PHOSPHORUS 4.0 2.4-4.9 mg/dL Performed By: #### LYNN, 191 23-9, 94095-7, 2777-1, [facility], 57377-8 #### [facility] ([id number]) [address] [place] [address], [address] [place] [address] SYPHILIS TOTAL Collected: 06/11/2024 3:22 PM S tatus: COMPLETED Source: [facility] TYPE CODE TESTS RESULT OUT OF RANGE REFERENCE UNITS LAB SYPHT(LOINC) Syphilis Total <0.2 0.0-0.8 AI Result Comment: NON REACTIVE No serologic evidence of infection to Treponema pallidum (syphilis). Repeat testing may be considered in patients with suspected acute or primary syphilis in 2 to 4 weeks. Performed By: #### [facility], 191 23-9, 87175-6, 2777-1, [facility], 24109-7 #### [facility] ([id number]) [address] [place] [address], [address] [place] [address] US OB 14+ WEEKS ANATOMY SCAN Observed: 0 05/11/2024 2:18 PM Status: F Source: [facility] EPIC Order Comment: US OB ANATOMY SINGLE W US OB CERVICAL LENGTH Estimated Date of Delivery: 09/04/24 Gestational Age as of 04/15/2024: 19w5d EXAM: US OB 14+ WEEKS ANATOM Y SCAN HISTORY: anatomy. COMPARISON: None available. TECHNIQUE: [...] 3. Unremarkable ultrasound of the anatomy. Electronically Signed:Electronically signed by SUNNY MARIN II, MD, PHD at 13-May-2024 08:36:44 AM [facility] ALLERGIES DATE TYPE / CODE NAME / CODE REACTION SEVERITY SOURCE Drug Class/[id number]([facility] [place] [place] [facility] [place]) NO KNOWN ALLERGIES [facility] ENCOUNTERS ADMIT/DISCHARGE ACCOUNT NUMBER ADMITTING ENCOUNTER CLASS LOCATION SOURCE 07/17/2024/07/18/19 [id number] Ambulatory Building:PF M[facility] 07/17/2024/07/18/19 [id number] Ambulatory Building:PT [facility] 07/17/2024/07/18/19 [id number] Ambulatory Buildin 94 [facility] 07/15/2024/07/16/19 25 [id number] Ambulatory Building:NO MS BCP OB [facility] EPIC 07/10/2024/07/11/19 25 [id number] Ambulatory Buildin 19 [facility] 07/06/2024/07/07/19 25 [id number] Ambulatory Buildin 94 [facility] 06/30/2024/07/01/19 [id number] Ambulatory Building:NO MS BCP OB [facility] 06/24/2024/06/29/19 25 [id number] Inpatient Encounter Building:PT [facility] 06/24/2024/06/25/19 25 [id number] Inpatient Encounter Building:PT [facility] 06/23/2024/06/24/19 25 [id number] Inpatient Encounter Building:PT [facility] 06/22/2024/06/29/19 25 [id number] Inpatient Encounter Building:PT [facility] 06/22/2024/06/23/19 25 [id number] Inpatient Encounter Building:PT [facility] 06/21/2024/06/22/19 25 [id number] Inpatient Encounter Building:PT [facility] 06/20/2024/06/21/19 25 [id number] Inpatient Encounter Building:PT [facility] 06/19/2024/06/29/19 25 [id number] Inpatient Encounter Building:PT [facility] 06/19/2024/06/20/19 25 [id number] Inpatient Encounter Building:PT _[facility] 06/18/2024/06/19/19 25 [id number] Inpatient Encounter Building:PT _[facility] 06/17/2024/06/18/19 25 [id number] Inpatient Encounter Building:PT _[facility] 06/16/2024/06/17/19 25 [id number] Inpatient Encounter Building:PT _[facility] 06/15/2024/06/24/19 25 [id number] Inpatient Encounter Building:PT _[facility] 06/15/2024/06/16/19 25 [id number] Inpatient Encounter Building:PT [facility] 06/12/2024/06/24/19 25 [id number] Inpatient Encounter Building:PT _[facility] 06/11/2024/06/24/19 25 [id number] Inpatient Encounter Building:PT _[facility] 06/11/2024/06/29/19 25 [id number] VANESA SEGOVIA Inpatient Encounter Building:PT H_LABRRoom: CBed: 01 [facility] 06/11/2024/06/12/19 25 [id number] Ambulatory Buildin [address] [place] [address] 06/11/2024/06/12/19 25 [id number] Ambulatory Building:PT _[facility] 06/10/2024/06/11/19 25 [id number] Ambulatory Building:NO MS BCP OB [facility] EPIC 05/11/2024/05/12/19 25 [id number] Ambulatory Building:NO MS BCP OB [facility] EPIC 05/11/2024/05/12/19 25 [id number] Ambulatory Building:NO MS BCP OB [facility] EPIC 04/15/2024/04/15/19 25 [id number] Ambulatory Building:NO MS BCP OB [facility] EPIC 03/16/2024/03/16/19 25 [id number] Ambulatory Building:NO MS BCP OB [facility] EPIC 02/11/2024/02/11/20 [id number] Ambulatory Building:NO MS BCP OB [facility] EPIC FUNCTIONAL STATUS No Functional Status Records Found EQUIPMENT No Equipment Records Found PAYERS ENCOUNTER GUARANTOR PAYER SUBSCRIBER SOURCE 07/17/2024 NISHA KYLE PERRYDOB: [place] [address] [address]Jyf: () Primary Insurance:[employer] MEDICA[employer] HMOPolicy Number: [id number] Date:2024-06-11 NISHA KYLE PERRYDOB: [id number] [place], [place] [address]Uly: () [facility] 07/17/2024 NISHA KYLE PERRYDOB: [place] [address], [place] [address]Xus: () Primary Insurance:[employer] MED[employer] HMOPolicy Number: [id number] Date:2024-06-11 NISHA KYLE PERRYDOB: [id number] [place], [place] [address]Ujw: () [facility] 07/17/2024 NISHA KYLE PERRYDOB: [place] [address], [place] [address]Zxw: () Primary Insurance:[employer] HMOPolicy Number: [id number] Date:2024-06-11 NISHA KYLE PERRYDOB: [id number] [place], [place] [address]Ssc: () [facility] 07/15/2024 NISHA Lares PERRYDOB: [place] [address], [place] [address]Jil: () Primary Insurance:[employer] MEDICAIDPolicy Number: [id number] Date:2024-02-02 NISHA Lares PERRYDOB: [id number] [place] [address] [facility] EPIC 07/10/2024 NISHA KYLE PERRYDOB: [place] [address]Zgn: (HP) Primary Insurance:[employer] HMOPolicy Number: [id number] Date:2024-06-11 NISHA KYLE PERRYDOB: [id number] [place], [place] [address]Huh: (HP) [facility] 07/06/2024 NISHA KYLE PERRYDOB: [place] [address]Oqx: (HP) Primary Insurance:[employer] HMOPolicy Number: [id number] Date:2024-06-11 NISHA KYLE PERRYDOB: [id number] [place], [place] [address]Qzp: (HP) [facility] 06/30/2024 NISHA Lares PERRYDOB: [place] [address]Zhk: (HP) Primary Insurance:[employer] MEDICAIDPolicy Number: [id number] Date:2024-02-02 NISHA Lares PERRYDOB: [id number] [place] [address] [facility] EPIC 06/24/2024 NISHA KYLE PERRYDOB: [place] [address]Tdz: (HP) Primary Insurance:[employer] HMOPolicy Number: [id number] Date:2024-06-11 NISHA KYLE PERRYDOB: [id number] [place], [place] [address]Kem: (HP) [facility] 06/24/2024 NISHA KYLE PERRYDOB: [place] [address], [place] [address]Fdc: (HP) Primary Insurance:[employer] HMOPolicy Number: [id number] Date:2024-06-11 NISHA KYLE PERRYDOB: [id number] [place], [place] [address]Lis: (HP) [facility] 06/23/2024 NISHA KYLE PERRYDOB: [place] [address] [address]Psa: (HP) Primary Insurance:[employer] HMOPolicy Number: [id number] Date:2024-06-11 NISHA KYLE PERRYDOB: [id number] [place], [place] [address]Ktg: (HP) [facility] 06/22/2024 NISHA KYLE PERRYDOB: [place] [address] [address]Dsy: (HP) Primary Insurance:[employer] HMOPolicy Number: [id number] Date:2024-06-11 NISHA KYLE PERRYDOB: [id number] [place], [place] [address]Gty: (HP) [facility] 06/22/2024 NISHA KYLE PERRYDOB: [place] [address], [place] [address]Sab: (HP) Primary Insurance:[employer] HMOPolicy Number: [id number] Date:2024-06-11 NISHA KYLE PERRYDOB: [id number] [place], [place] [address]Vnl: (HP) [facility] 06/21/2024 NISHA KYLE PERRYDOB: [place] [address], [place] [address]Xhy: (HP) Primary Insurance:[employer] HMOPolicy Number: [id number] Date:2024-06-11 NISHA KYLE PERRYDOB: [id number] [place], [place] [address]Ciz: (HP) [facility] 06/20/2024 NISHA KYLE PERRYDOB: [place] [address] [address]Cmv: () Primary Insurance:[employer] HMOPolicy Number: [id number] Date:2024-06-11 NISHA KYLE PERRYDOB: [id number] [place] [address]Ymo: () [facility] 06/19/2024 NISHA KYLE PERRYDOB: [place] [address], [place] [address]Nsf: () Primary Insurance:[employer] HMOPolicy Number: [id number] Date:2024-06-11 NISHA KYLE PERRYDOB: [id number] [place], [place] [address]Ufn: () [facility] 06/19/2024 NISHA KYLE PERRYDOB: [place] [address] [address]Vyt: () Primary Insurance:[employer] HMOPolicy Number: [id number] Date:2024-06-11 NISHA KYLE PERRYDOB: [id number] [place] [address]Ghy: () [facility] 06/18/2024 NISHA KYLE PERRYDOB: [place] [address], [place] [address]Xst: (HP) Primary Insurance:[employer] HMOPolicy Number: [id number] Date:2024-06-11 NISHA KYLE PERRYDOB: [id number] [place] [address]Jpb: (HP) [facility] 06/17/2024 NISHA KYLE PERRYDOB: [place] [address] [address]Nah: (HP) Primary Insurance:[employer] HMOPolicy Number: [id number] Date:2024-06-11 NISHA KYLE PERRYDOB: [id number] [place], [place] [address]Pyp: (HP) [facility] 06/16/2024 NISHA KYLE PERRYDOB: [place] [address] [address]Alx: (HP) Primary Insurance:[employer] HMOPolicy Number: [id number] Date:2024-06-11 NISHA KYLE PERRYDOB: [id number] [place] [address]Uet: (HP) [facility] 06/15/2024 NISHA KYLE PERRYDOB: [place] [address] [address]Wow: (HP) Primary Insurance:[employer] HMOPolicy Number: [id number] Date:2024-06-11 NISHA KYLE PERRYDOB: [id number] [place] [address]Brw: (HP) [facility] 06/15/2024 NISHA KYLE PERRYDOB: [place] [address] [address]Izj: (HP) Primary Insurance:[employer] HMOPolicy Number: [id number] Date:2024-06-11 NISHA KYLE PERRYDOB: [id number] [place] [address]Knj: (HP) [facility] 06/12/2024 NISHA KYLE PERRYDOB: [place] [address] [address]Hsd: (HP) Primary Insurance:[employer] MED[employer] HMOPolicy Number: [id number] Date:2024-06-11 NISHA KYLE PERRYDOB: [id number] [place], [place] [address]Xud: (HP) [facility] 06/11/2024 NISHA KYLE PERRYDOB: [place] [address] [address]Eye: (HP) Primary Insurance:[employer] MED[employer] HMOPolicy Number: [id number] Date:2024-06-11 NISHA KYLE PERRYDOB: [id number] [place] [address]Vqk: (HP) [facility] 06/11/2024 NISHA KYLE PERRYDOB: [place] [address] [address]Emm: (HP) Primary Insurance:[employer] HMOPolicy Number: [id number] Date:2024-06-11 NISHA KYLE PERRYDOB: [id number] [place], [place] [address]Cin: (HP) [facility] 06/11/2024 NISHA KYLE PERRYDOB: [place], [place] [address]Tko: (HP) Primary Insurance:[employer] MED[employer] HMOPolicy Number: [id number] Date:2024-06-11 NISHA KYLE PERRYDOB: [id number] [place], [place] [address]Tvt: (HP) [facility] 06/11/2024 NISHA KYLE PERRYDOB: [place], [place] [address]Aag: (HP) Primary Insurance:[employer] HMOPolicy Number: [id number] Date:2024-06-11 NISHA KYLE PERRYDOB: [id number] [place], [place] [address]Dna: (HP) [facility] 06/10/2024 NISHA L PERRYDOB: [place] [address]Ucr: (HP) Primary Insurance:[employer] MEDICAIDPolicy Number: [id number] Date:2024-02-02 NISHA Lares PERRYDOB: [id number] [place] [address] [facility] 05/11/2024 NISHA L PERRYDOB: [place], [place] [address]Sxv: (HP) Primary Insurance:[employer] MEDICAIDPolicy Number: [id number] Date:2024-02-02 NISAH Lares PERRYDOB: [id number] [place] [address] [facility] 05/11/2024 NISHA L PERRYDOB: [place] [address]Ssh: (HP) Primary Insurance:[employer] MEDICAIDPolicy Number: [id number] Date:2024-02-02 NISHA L PERRYDOB: [id number] [place] [address] [facility] 04/15/2024 NISHA L PERRYDOB: [place] [address]Gtc: (HP) Primary Insurance:[employer] MEDICAIDPolicy Number: [id number] Date:2024-02-02 NISHA L PERRYDOB: [id number] [place] [address] [facility] 03/16/2024 NISHA L PERRYDOB: [place] [address]Hgi: (HP) Primary Insurance:[employer] MEDICAIDPolicy Number: [id number] Date:2024-02-02 NISHA L PERRYDOB: [id number] [place] [address] [facility] 02/11/2024 NISHA L PERRYDOB: [place], [place] [address]Rgu: (HP) [place] Insurance[place]: [id number] Date:2024-01-03 NIHSA L PERRYDOB: [id number] [place] [address] [facility] EP[facility] SOCIAL HISTORY No Social History Records Found FAMILY HISTORY No Family History Records Found ADVANCE DIRECTIVES No Advanced Directives Records Found INFORMATION SOURCE DATE CREATED AUTHOR AUTHOR'S ORGANIZ ATION 07/23/2024 [place]
--- NOTE | 2024-07-23 19:17 | US_ITS ---
[address] [address] Patient Name: NISHA FAJARDO MRN: [id number] date: 1995 Sex: F Assigned Patient Location: [facility] Current Patient Location: [facility] Accession/Order Number: [id number] Exam Date: 07/23/2024 19:51 Report Date: 07/23/2024 19:52 At the request of: PHIL BURROUGHS DO Procedure: US OB BPP w non-stress Ultrasound biophysical profile HISTORY: Polyhydramnios There is adequate breathing movement, gross body movement, tone and amniotic fluid volume for total score of 8 out of 8. The amniotic fluid index is 18.8 cm within normal limits. The heart rate 125 bpm. US/US OB BPP w non-stress IMPRESSION: Adequate ultrasound biophysical profile Impression dictated by: Neo Buck M.D. 07/23/2024 7:52 PM Dictation Location: [facility] Electronically authenticated by: [id number] Y Date: 07/23/2024 19:52
[2024-07-23 20:04] VITALS: BP 120/57; PULSE 85
== END 2024-07-23 20:10 | disposition home or self-care (01) ==
LOC: US 19:16 → FBC 19:17
PROVIDERS: PCP Family Medicine; Visit Provider Obstetrics & Gynecology
DX: O40.3XX0 Polyhydramnios, third trimester, not applicable or unspecified (principal); O26.893 Other specified pregnancy related conditions, third trimester; Z3A.33 33 weeks gestation of pregnancy
CPT/HCPCS: 76818

== ENCOUNTER 2024-07-27 18:10 | Outpatient (OUT) | payer OTHER, SELFPAY ==
--- OUTSIDE RECORDS SUMMARY | 2024-07-15 15:40 | XMS_ITS | Encounter Summary ---
Author Organization [facility] Address [address] [place] [address] Care Team Providers Care Salesperson Flowers Name Role Phone Terrence Mcintyre MD Primary Care Provider [phone] Reason for Visit * Reason Comments Routine Visit Encounter Details Date Type Department Care Team (Late st Contact Info) Description 07/15/2024 3:40 PM EDT Routine [facility] [address] [facility] [place] [address] Brandi Baer NP [address] [place] [address] Third trimester ; 32 weeks gestation of Social History Tobacco Use Types Packs/Day Years Used Date Smoking Tobacco: Never Assessed Estimated Date of Delivery Comme nts Yes 09/04/2024 Based on Ultraso und Sex and Gender Information Value Date Recorded Sex Assigned at Not on file Legal Sex Female 11:21 PM EDT Gender Identity Not on file Sexual Orientation Not on file documented as of this encounter Last Filed Vital Signs Vital Sign Reading Time Taken Comments Blood Pressure 116/74 07/15/2024 5:02 PM EDT Pulse - - Temperature - - Respiratory Rate - - Oxygen Saturation - - Inhaled Oxygen Concentration - - Weight 89.8 kg (198 lb) 07/15/2024 5:02 PM EDT Height - - Body Mass Index - - documented in this encounter Progress Notes * Brandi Baer NP - 07/15/2024 3:40 PM EDT Reason for Appointment: Patient ID: Veda Mtz is a 28 y.o. female who presents for Routine Visit Patient presents today for Return OB appointment. MEDICATIONS Current Outpatient Medications Medication Instructions Calcium Carb-Cholecalciferol (Oyster Shell Calcium w/D) 500-5 MG-MCG tablet 1 tablet, 2 times dailywith meals digoxin (LANOXIN) 250 mcg, 2 times daily magnesium oxide (MAG-OX) 400 mg, 2 times daily omeprazole (PRILOSEC) 20 mg, Oral, Daily before breakfast, Do not crush or chew. potassium chloride CR (Klor-Con) 10 MEQ ER [...] nursing note reviewed. Exam conducted with a micro[employer] exchange administrator present. Vitals: There is no height or weight on file to calculate BMI. BP: Patient's last menstrual period was 12/05/2023. ASSESSMENT & PLAN ICD-10-CM 1. Third trimester Z34.93 POCT urinalysis dipstick manually resulted 2. 32 weeks gestation of Z3A.32 Return OB: Patient presents today for a routine obstetrics appointment. Patient is currently 32w5d . Patient states she is doing well but has complaints of being tired due to current . Patient has verbalizes frequent movement. labor precautions was discussed/given and patient was instructed to perform kick counts three times a day. Orders Placed This Encounter Procedures POCT urinalysis dipstick manually resulted Follow Up: Patient continues to follow closely with MFM related to SVT, tricuspid regurgitation, and GDM. Patient is currently prescribed digoxin 250 mg and Sotalol 160 mg bid. Recommendation is fordelivery at 37 weeks and for delivery at a tertiary care center. Patient is to continue NST 2 timesper week and SKYLAR and growth every 4 weeks. Patient is also to have continuous glucose monitoring. Patient would like to continue care her in our office and local NST/BPP I will discuss this with Dr. Fierro. Patient is to return to office in 2 week for routine OB appointment. Documented by Annie Keith MA on behalf of: Brandi Baer NP documented in this encounter Plan of Treatment Upcoming Encounters Date Type Department Care Team (Late st Contact Info) Description 07/29/2024 2:50 PM EDT Routine [facility] [address] [place] [id number] Chelsea Carson PA [address] [place] [address] documented as of this encounter Procedures Procedure Name Priority Date/Time Associated Diagnosis Comments POCT URINALYSIS DIPSTICK Routine 07/15/2024 4:10 PM EDT Third trimester documented in this encounter Results * POCT urinalysis dipstick manually resulted (07/15/2024 4:10 PM EDT) Color, UA Yellow Clarity, UA Clear Glucose, UA Negative Negative - 2000(110) ++++ mg/dL Bilirubin, UA Negative Negative - 4(70) +++ mg/dL Ketones, UA Negative Negative - 160(16) ++++ mg/dL Spec Grav, UA 1.020 1 - 1.03 Blood, UA Negative Negative - 50 Jordan/mcL pH, UA 6.0 5 - 9 Protein, UA Negative Negative - 2000(20) ++++ mg/dL Urobilinogen, UA 0.2 0.2 - 12 mg/dL Leukocytes, UA Negative Negative - 500+++ Leanne/mcL Nitrite, UA Negative Negative - Positive Urine 07/15/2024 4:10 PM EDT Brandi Baer NP POINT OF CARE TEST ENTER/EDIT ORDERABLES Final Result documented in this encounter Visit Diagnoses Diagnosis Third trimester state, incidental 32 weeks gestation of documented in this encounter Care Teams Salesperson Flowers Relationship Specialty Start Date End Date Terrence Mcintyre MD PCP - General Family Medicine 02/11/24 documented as of this encounter
--- OUTSIDE RECORDS SUMMARY | 2024-07-17 12:47 | XMS_ITS | Encounter Summary ---
Author Organization [employer] [facility] tem Address [id number] [address] [place] [address] Care Team Providers Care Binding End Stitcher Name Role Phone Sarah Queen APRN-TWIST TESTER Primary Care Provider + Reason for Referral * Diagnostic Imaging (Routine) - Pending Review Specialty Diagnoses / Procedures Referred By Contac t Referred To Contact Maternal and Medicine Diagnoses Supraventricular tachycardia of fetus affecting management of Polyhydramnios affecting Procedures US [facility] with or without consult Silvestre Lowry MD [address] [address] Phone: tel: fax: Maternal- Medicine at [place] [id number] [place] [address] Phone: tel: fax: Referral ID Status Reason Start Date Expiration Date V isits Requested Visits Authorized [id number] Pending Review 06/12/2024 06/12/2025 1 1 Reason for Visit * Diagnostic Imaging (Routine) - Pending Review Specialty Diagnoses / Procedures Referred By Contac t Referred To Contact Maternal and Medicine Diagnoses Supraventricular tachycardia of fetus affecting management of Polyhydramnios affecting Procedures US [facility] with or without consult Silvestre Lowry MD [address] [facility] [address] [place] [address] Phone: tel: fax: Maternal- Medicine at [facility] [address] [facility] [place] [address] Phone: tel: fax: Referral ID Status Reason Start Date Expiration Date V isits Requested Visits Authorized [id number] Pending Review 06/12/2024 06/12/2025 1 1 Encounter Details Date Type Department Care Team (Latest Contact Info) Description 07/17/2024 12:47 PM EDT - 07/17/2024 4:33 PM EDT Hospital Encounter [facility] - [facility] US Imaging [address] [place] [address] Supraventricular tachycardia of fetus affecting management of ; Polyhydramnios affecting Discharge Disposition: Home Social History Tobacco Use Types Packs/Day Years Used Date Smoking Tobacco: Never Smokeless Tobacco: Never Alcohol Use Standard Drinks/Week Comments Not Currently 0 (1 standard drink = 0.6 oz pur e alcohol) PHQ-2 Answer Date Recorded Total Score 0 05/28/2022 Childcare Answer Date Recorded Childcare Unknown 08/13/2018 Employment Answer Date Recorded Employment Unknown 08/13/2018 Hunger Screening Answer Date Recorded Within the past 12 months we worried whether our food would run out before we got money to buy more. Never True 07/10/2024 Within the past 12 months th e food we bought just didn't last and we didn't have money to get more. Never True 07/10/2024 Estimated Date of Delivery Comme nts Yes 09/04/2024 Based on Ultraso und Sex and Gender Information Value Date Recorded Sex Assigned at Not on file Legal Sex Female 11:54 AM EDT Gender Identity Not on file Sexual Orientation Not on file documented as of this encounter Medications at Time of Discharge alcohol swabs pads, medicatedIndicati ons:Diet controlled gestational diabetes mellitus (GDM) in third trimester To use when performing a fingerstick 200 each 07/06/2024 blood sugar diagnostic (glucose blood) stripIndications: Diet controlled gestational diabetes mellitus (GDM) in third trimester Check blood glucose fasting and 1 hour after each meal 200 strip 07/06/2024 blood-glucose meter miscIndications:D iet controlled gestational diabetes mellitus (GDM) in third trimester Please check blood glucose fasting and 1 hour after each meal 1 each 07/06/2024 blood-glucose sensor (FREESTYLE NEIDA 3 PLUS SENSOR) deviceIndications :Diet controlled gestational diabetes mellitus (GDM) in third trimester Wear for 15 days and change 2 each 3 07/06/2024 calcium carbonate-vitamin D3 (OSCAL 500 + D) 500 mg (1,250 mg) - 200 units per tablet Take 1 tablet by mouth in the morning and 1 tablet in the evening. Take with meals. 180 tablet 3 06/28/2024 digoxin (LANOXIN) 250 mcg tablet Take 1 tablet (250 mcg total) by mouth every 12 (twelve) hours. 60 tablet 3 06/28/2024 famotidine (PEPCID) 40 mg tablet Take 1 tablet (40 mg total) by mouth in the morning. lancets 33 gauge miscIndications:D iet controlled gestational diabetes mellitus (GDM) in third trimester To check blood glucose fasting and 1 hour after each meal 200 each 06/26/2024 magnesium oxide (MAGOX) 400 mg tablet Take 1 tablet (400 mg total) by mouth in the morning and 1 tablet (400 mg total) before bedtime. 60 tablet 3 06/28/2024 ondansetron (ZOFRAN) 4 mg tablet Take 1 tablet (4 mg total) by mouth every 8 (eight) hours as needed for nausea or vomiting. 20 tablet 05/28/2022 potassium chloride (K-TAB,KLOR-CON) 10 MEQ CR tablet Take 5 tablets (50 mEq total) by mouth in the morning. 150 tablet 3 06/28/2024 [id number] acid ( 19) 29 mg iron- 1 mg tablet,chewable Chew 1 tablet and swallow in the morning. sotaloL (BETAPACE) 160 mg tablet Take 1 tablet (160 mg total) by mouth every 12 (twelve) hours. 60 tablet 3 06/28/2024 documented as of this encounter Plan of Treatment Upcoming Encounters Date Type Department Care Team (Late st Contact Info) Description 08/04/2024 9:00 AM EDT Rout[facility] [address] [place] [address] Shira Staples MD [address] [place] [address], [address] [place] [phone] 08/07/2024 3:30 PM EDT Appointment [facility] US Imaging [address] [place] [address] documented as of this encounter Procedures Procedure Name Priority Date/Time Associated Diagnosis Comments US MF OB FOLLOW-UP, 1 FETUS Routine 07/17/2024 2:06 PM EDT Supraventricular tachycardia of fetus affecting management of Polyhydramnios affecting documented in this encounter Results * US MF OB FOLLOW-UP, 1 FETUS (07/17/2024 2:06 PM EDT) Anatomical Region Laterality Modality OB-TANK FARM OPERATOR Ultrasound 07/17/2024 1:11 PM EDT Narrative 07/17/2024 3:31 PM EDT NAME: SCOTTY CAMERON : 1995 SEX: F Accession Number: [id number] ORDERING PHYSICIAN: SILVESTRE LOWRY REFERRING PHYSICIAN: PHIL BURROUGHS Coding ----- --------- Procedures [id number]: Follow-up Ultrasound, per fetus [address]21: Echocardiography, , cardiovascular system, real time with image documentation (2D), with or without M-mode recording; follow-up or repeat study Indication ----- --------- Screening for follow-up survey, Persistent irregular rhythm, Screening for hydrops, Obesity in , Supervision of high risk . History ----- --------- OB History 2. Para 1 [id number] Maternal Assessment ----- --------- Physical Exam Height 157 cm, 5 ft 2 in. Initial weight 89 kg, 197 lb. Initial BMI 36.03 kg/m Method ----- --------- Transabdominal ultrasound examination ----- --------- Ramírez . Number of fetuses: 1 Dating ----- --------- LMP on: 12/07/2023 GA by LMP 31 w + 6 d KYLEIGH by LMP: 09/12/2024 Previous Ultrasound on: 02/11/2024 Type of prior assessment: GA GA at prior assessment date 10 w + 4 d GA by previous U/S 33 w + 0 d KYLEIGH by previous Ultrasound: 09/04/2024 Ultrasound examination on: 07/17/2024 GA by U/S based upon: AC, BPD, Femur, HC GA by U/S 35 w + 2 d KYLEIGH by U/S: 08/19/2024 Assigned: based on ultrasound (GA), selected on 06/11/2024 Assigned GA 33 w + 0 d Assigned KYLEIGH: 09/04/2024 General Evaluation ----- --------- Cardiac activity Present. FHR 131 bpm. Presentation: cephalic Placenta: Placental site: posterior, away from cervical os Umbilical cord: Cord vessels: 3 vessel cord. Insertion site: documented previously Amniotic fluid: Amount of AF: normal amount. MVP 4.0 cm Biometry ----- --------- Standard BPD 89.0 mm 36w 0d 98% Hadlock OFD 111.9 mm 37w 6d >99% Samuel HC 321.8 mm 36w 2d 91% Hadlock AC 323.8 mm 36w 2d >99% Hadlock Femur 62.7 mm 32w 3d 24% Hadlock Humerus 59.9 mm 34w 5d 95% Samuel HC / AC 0.99 EFW 2,640 g 95% Hadlock EFW (lb) 5 lb EFW (oz) 13 oz EFW by: Hadlock ([id number]) Extended Tibia 58.8 mm 34w 2d 89% Samuel Load Manager 6.1 mm Head / Face / Neck Cephalic index 0.80 44% Nicolaides Nasal bone: present Extremities / Bony Struc FL / BPD 0.70 FL / HC 0.19 FL / AC 0.19 Other Structures FHR 131 bpm Anatomy ----- --------- The following structures appear normal: Head/Neck: Cranium. Lateral ventricles. Cavum septi pellucidi. Neck. Face: Lips. Profile. Nose. Nasal bone. Maxilla. Mandible. Orbits. Heart/Thorax: 4-chamber view. Great vessels. Diaphragm. Abdomen: Stomach. Kidneys. Bladder. Small bowel. Large bowel. Extremities/Skeleton: Right upper arm. Right forearm. Right foot. Skeleton The following structures were documented previously: Head / Neck Choroid plexus. Midline falx. Cerebellum. Cisterna magna. Parenchyma. Vermis. Heart / Thorax RVOT view. LVOT view. 3-vessel view. 9-wcdahy-gntjoay view. Right lung. Left lung. Abdomen Abdom. wall. Cord insertion. Right renal artery. Left renal artery. Genitals. Spine: Cervical spine. Thoracic spine. Lumbar spine. Sacral spine. Extremities / Right hand. Left upper arm. Left forearm. Left hand. Right upper leg. Right lower leg. Left upper leg. Left lower leg. Left foot. Echocardiogram ----- --------- Situs documented previously Cardiac position normal Cardiac axis normal Cardiac size normal (approx. 1/3 of thoracic area) Cardiac rhythm regular (normal) 4-chamber view normal LVOT view documented previously RVOT view documented previously 3-vessel view documented previously 7-[id number]-egfjmrm view documented previously Aortic arch view documented previously Ductal arch view documented previously Bicaval view documented previously Interventricular septum normal Venous-atrial connections documented previously AV connections normal VA connections normal Pulmonary veins normal Right atrium normal Left atrium normal Atrial septum normal Foramen ovale normal Right ventricle normal Left ventricle normal Ventricular septum normal Cross-over gr. arteries anterior great artery (confirmed to be the pulmonary artery by its branching) which crosses the course of the proximal aorta, indicative of normal relationship of the great arteries Main PA the main pulmonary artery can be seen bifurcating into the ductus arteriosus and the right pulmonary artery Pulmonary arteries documented previously Linear insertion of AV valves no Pericardial effusion no Maternal Structures ----- --------- Uterus Visualized Cervix Suboptimal Right Ovary Not visualized Left Ovary Not visualized Cul de Sac Suboptimal Impression ----- --------- Single viable intrauterine consistent with 33w 0d with an KYLEIGH of 09/04/2024. There is no evidence of hydrops on today's exam. rhythm appears normal on today's exam. anatomic survey and echocardiogram did not reveal sonographic evidence of any gross structural abnormalities. Amniotic fluid MVP measures 4 cm. Recommendations ----- --------- Please see follow up MFM documentation from today's encounter. The patient is scheduled in four weeks for follow up growth ultrasound. Results forwarded to ordering provider so they can follow up with the patient as necessary. Subsequent follow up or other follow up as clinically determined by primary OB provider unless otherwise specified by MFM. Procedure Note Silvestre Lowry MD - 07/17/2024 NAME: SCOTTY CAMERON : 1995 SEX: F Accession Number: [id number] ORDERING PHYSICIAN: SILVESTRE LOWRY REFERRING PHYSICIAN: PHIL BURROUGHS Coding ----- --------- Procedures [id number]: Follow-up Ultrasound, per fetus 695[address]: Echocardiography, , cardiovascular system, real timewith image documentation (2D), with or without M-mode recording; follow-up or repeat study Indication ----- --------- Screening for follow-up survey, Persistent irregular rhythm, Screening forhydrops, Obesity in , Supervision of high risk . History ----- --------- OB History 2. Para 1 [id number] Maternal Assessment ----- --------- Physical Exam Height 157 cm, 5 ft 2 in. Initial weight 89 kg, 197 lb.Initial BMI 36.03 kg/m Method ----- --------- Transabdominal ultrasound examination ----- --------- Ramírez . Number of fetuses: 1 Dating ----- --------- LMP on: 12/07/2023 GA by LMP 31 w + 6 d KYLEIGH by LMP: 09/12/2024 Previous Ultrasound on: 02/11/2024 Type of prior assessment: GA GA at prior assessment date 10 w + 4 d GA by previous U/S 33 w + 0 d KYLEIGH by previous Ultrasound: 09/04/2024 Ultrasound examination on: 07/17/2024 GA by U/S based upon: AC, BPD, Femur, HC GA by U/S 35 w + 2 d KYLEIGH by U/S: 08/19/2024 Assigned: based on ultrasound (GA), selected on 06/11/2024 Assigned GA 33 w + 0 d Assigned KYLEIGH: 09/04/2024 General Evaluation ----- --------- Cardiac activity Present. FHR 131 bpm. Presentation: cephalic Placenta: Placental site: posterior, away from cervical os Umbilical cord: Cord vessels: 3 vessel cord. Insertion site: documentedpreviously Amniotic fluid: Amount of AF: normal amount. MVP 4.0 cm Biometry ----- --------- Standard BPD 89.0 mm 36w 0d 98% Hadlock OFD 111.9 mm 37w 6d >99% Samuel HC 321.8 mm 36w 2d 91% Hadlock AC 323.8 mm 36w 2d >99% Hadlock Femur 62.7 mm 32w 3d 24% Hadlock Humerus 59.9 mm 34w 5d 95% Samuel HC / AC 0.99 EFW 2,640 g 95% Hadlock EFW (lb) 5 lb EFW (oz) 13 oz EFW by: Hadlock ([id number]) Extended Tibia 58.8 mm 34w 2d 89% Samuel Load Manager 6.1 mm Head / Face / Neck Cephalic index 0.80 44% Nicolaides Nasal bone: present Extremities / Bony Struc FL / BPD 0.70 FL / HC 0.19 FL / AC 0.19 Other Structures FHR 131 bpm Anatomy ----- --------- The following structures appear normal: Head/Neck: Cranium. Lateral ventricles. Cavum septi pellucidi. Neck. Face: Lips. Profile. Nose. Nasal bone. Maxilla. Mandible. Orbits. Heart/Thorax: 4-chamber view. Great vessels. Diaphragm. Abdomen: Stomach. Kidneys. Bladder. Small bowel. Large bowel. Extremities/Skeleton: Right upper arm. Right forearm. Right foot. Skeleton The following structures were documented previously: Head / Neck Choroid plexus. Midline falx. Cerebellum. Cisterna magna.Parenchyma. Vermis. Heart / Thorax RVOT view. LVOT view. 3-vessel view. 5-ejmsor-qhjbbkgqmqj. Right lung. Left lung. Abdomen Abdom. wall. Cord insertion. Right renal artery. Left renalartery. Genitals. Spine: Cervical spine. Thoracic spine. Lumbar spine. Sacral spine. Extremities / Right hand. Left upper arm. Left forearm. Left hand. Rightupper leg. Right lower leg. Left upper leg. Left lower leg. Left foot. Echocardiogram ----- --------- Situs documented previously Cardiac position normal Cardiac axis normal Cardiac size normal (approx. 1/3 of thoracic area) Cardiac rhythm regular (normal) 4-chamber view normal LVOT view documented previously RVOT view documented previously 3-vessel view documented previously 9-ujuoee-njezgfu view documented previously Aortic arch view documented previously Ductal arch view documented previously Bicaval view documented previously Interventricular septum normal Venous-atrial connections documented previously AV connections normal VA connections normal Pulmonary veins normal Right atrium normal Left atrium normal Atrial septum normal Foramen ovale normal Right ventricle normal Left ventricle normal Ventricular septum normal Cross-over gr. arteries anterior great artery (confirmed to be thepulmonary artery by its branching) which crosses the course of the proximal aorta, indicative ofnormal relationship of the great arteries Main PA the main pulmonary artery can be seen bifurcatinginto the ductus arteriosus and the right pulmonary artery Pulmonary arteries documented previously Linear insertion of AV valves no Pericardial effusion no Maternal Structures ----- --------- Uterus Visualized Cervix Suboptimal Right Ovary Not visualized Left Ovary Not visualized Cul de Sac Suboptimal Impression ----- --------- Single viable intrauterine consistent with 33w 0d with an KYLEIGH of09/04/2024. There is no evidence of hydrops on today's exam. rhythm appears normal on today's exam. anatomic survey and echocardiogram did not reveal sonographicevidence of any gross structural abnormalities. Amniotic fluid MVP measures 4 cm. Recommendations ----- --------- Please see follow up MFM documentation from today's encounter. The patient is scheduled in four weeks for follow up growth ultrasound. Results forwarded to ordering provider so they can follow up with thepatient as necessary. Subsequent follow up or other follow up as clinically determined byprimary OB provider unless otherwise specified by MFM. us Silvestre Lowry MD IM US ORDERABLES Final Re sult documented in this encounter Visit Diagnoses Diagnosis Supraventricular tachycardia of fetus affecting management of Polyhydramnios affecting documented in this encounter Additional Health Concerns Assessment Noted Time PHQ-9 Depression Total Score: 0 05/29/19 23 11:03 AM EDT documented as of this encounter Care Teams Binding End Stitcher Relationship Specialty Start Date End Date Sarah Queen APRN-TWIST TESTER [address] [place] [address] PCP - General Internal Medicine 09/03/23 documented as of this encounter
--- OUTSIDE RECORDS SUMMARY | 2024-07-17 14:30 | XMS_ITS | Encounter Summary ---
Author Organization [facility] [employer] s tem Address [facility] [id number] [address] [place] [address] Care Team Providers Care Vp Scientific Affairs Name Role Phone Sarah Queen Arnaud VANGN-MANAGER HELPDESK Primary Care Provider + Reason for Visit * Reason Comments Polyhydraminos arrythmia GDM Encounter Details Date Type Department Care Team (Late st Contact Info) Description 07/17/2024 2:30 PM EDT Office Visit Maternal- Medicine at [facility] [address] [place] [phone] Berto Lowry MD [address] [facility], [address] [place] [id number] 33 weeks gestation of (Primary Dx); Gestational [...] Care Everywhere. * Your baby's movement before (German) documented in this encounter Progress Notes * [...] Disp: 200 strip, Rfl: 0 blood-glucose meter [facility] [place], Please check blood glucose fasting and 1 [...] in themorning., Disp: 150 tablet, Rfl: 3 [id number] acid ( 19) 29 mg iron- 1 [...] more likely to fail compared to insulin. termite renewal inspector data on children whose mothers took oral [...] Insulin teaching was provided -delivery recommended at [facility] -delivery recommended at 37 weeks -the patient desires to have hybrid follow-up with her primary OB and the [place] for [facility] as she is struggling to be coming to [place] for routine visits due to geographic distance [...] Berto Lowry MD, FACOG (she/hers) Maternal- Medicine [facility] [address] [facility] 1st [place] [address] This document was created with Yast technology. Though I make every effort to review the dictation as it is transcribed, on occasion the spoken word can be misinterpreted by the technology leading to inappropriate words, phrases, or sentences. This note is addressed to the requesting provider as a consultation for clinical guidance. Specificmedical abbreviations are occasionally used and those are generally approved by the [place]?Board of?Obstetrics and?Gynecology?as well as?Dylan???s abbreviations. The above plan of care was based solely on the diagnoses for which a consultation was requested. ?More frequent testing may be indicated based on her other medical/obstetrical conditions. The management of other or medical conditions is beyond the scope of requested consultation and will c ontinue to be followed by the primary backup administrator or primary care provider. Note to patient: [...] Description 08/04/2024 9:00 AM EDT Routine Center [facility] Services - Women's Services [address] [place] [phone] Shira Staples MD [address] [place] [address], [address] [place] [address] 08/07/2024 3:30 PM EDT Appointment [facility] US Imaging [address] [place] [phone] documented as of this encounter Visit Diagnoses [...] documented as of this encounter Care Teams Vp Scientific Affairs Relationship Specialty Start Date End Date Sarah Queen APRN-MANAGER HELPDESK [address] [place] [address] PCP - General Internal Medicine 09/03/23 documented as of this encounter
--- OUTSIDE RECORDS SUMMARY | 2024-07-17 16:34 | XMS_ITS | Encounter Summary ---
Author Organization [employer] tem Address [facility] [id number] [address] [place] [address] Care Team Providers Care Scientific Recruiter Name Role Phone Sarah Queen APRN-COMMERCIAL ANALYST Primary Care Provider + Reason for Referral * Cardiology (Routine) - Closed Specialty Diagnoses / Procedures Referred By Jess loza Referred To Contact Diagnoses Supraventricular tachycardia of fetus affecting management of Intrauterine Polyhydramnios affecting Excessive growth affecting management of in second trimester, single or unspecified fetus Procedures ECG 12 lead Aidan Rivera MD [address] [place] [address] Phone: tel: fax: Referral ID Status Reason Start Date Expiration Date Visits Re quested Visits Authorized [id number] Closed 06/29/2024 06/29/2025 1 1 Reason for Visit * Cardiology (Routine) - Closed Specialty Diagnoses / Procedures Referred By Jess t Referred To Contact Diagnoses Supraventricular tachycardia of fetus affecting management of Intrauterine Polyhydramnios affecting Excessive growth affecting management of in second trimester, single or unspecified fetus Procedures ECG 12 lead Aidan Rivera MD [address] [place] [address] Phone: tel: fax: Referral ID Status Reason Start Date Expiration Date Visits Re quested Visits Authorized [id number] Closed 06/29/2024 06/29/2025 1 1 Encounter Details Date Type Department Care Team (Latest Contact Info) Description 07/17/2024 4:34 PM EDT - 07/17/2024 11:59 PM EDT Hospital Encounter [facility] - Cardiovascular [address] [place] [address] Supraventricular tachycardia of fetus affecting [...] in the morning. 150 tablet 3 06/28/2024 [id number] acid ( 19) 29 mg iron- 1 [...] Health Services - Women's Services [address] [place] [phone] Shira Staples MD [address] [facility], [address] [place] [address] 08/07/2024 3:30 PM EDT Appointment [facility] US Imaging [address] [place] [address] documented as of this encounter [...] documented as of this encounter Care Teams Scientific Recruiter Relationship Specialty Start Date End Date Sarah Queen, ESCOBAR-COMMERCIAL ANALYST [facility] [place] [address] PCP - General Internal Medicine 09/03/23 documented as of this encounter
--- OUTSIDE RECORDS SUMMARY | 2024-07-24 08:28 | XMS_ITS ---
Author Organization OHIP Support Name Relationship Address Phone PAMELA, SIS Significant Other [address] [place] [address] + PAMELA, SIS Significant Other [address] [place] [address] + PAMELA, SIS Significant Other [address] [place] [address] + PAMELA, SIS Significant Other [address] [place] [address] + PAMELA, SIS Significant Other Unknown [phone] PAMELA, SIS Significant Other [address] [place] [address] + PAMELA, SIS Significant Other [address] [place] [address] + PAMELA, SIS Significant Other Unknown [phone] PAMELA, SIS Significant Other [address] [place] [address] + PAMELA, SIS Significant Other [address] [place] [address] + PAMELA, SIS Significant Other [address] [place] [address] + PAMELA, SIS Significant Other [address] [place] [address] + PAMELA, SIS Significant Other [address] [place] [address] + PAMELA, SIS Significant Other [address] [place] [address] + PAMELA, SIS Significant Other [address] [place] [address] + PAMELA, SIS Significant Other [address] [place] [address] + PAMELA, SIS Significant Other [address] [place] [address] + PAMELA, SIS Significant Other [address] [place] [address] + PAMELA, SIS Significant Other [address] [place] [address] + PAMELA, SIS Significant Other [address] [place] [address] + PAMELA, SIS Significant Other [address] [place] [address] + PAMELA, SIS Significant Other [address] [place] [address] + PAMELA, SIS Significant Other [address] [place] [address] + PAMELA, SIS Significant Other [address] [place] [address] + PAMELA, SIS Significant Other [address] [place] [address] + PAMELA, SIS Significant Other [address] [place] [address] + PAMELA, SIS Significant Other [address] [place] [address] + PAMELA, SIS Significant Other Unknown [phone] PAMELA, SIS Significant Other Unknown [phone] PAMELA, SIS Significant Other Unknown [phone] PAMELA, SIS Significant Other Unknown [phone] PAMELA, SIS Significant Other Unknown [phone] SIS SANTIAGO Significant Other Unknown [phone] Care Team Providers Care Air Transportation Provider Name Role Phone CELIO PURVIS Attending Unavailable HYUN, CELIO Referring Unavailable CELIO PURVIS Attending Unavailable HEIKE, PHIL Attending Unavailable HEIKE, PHIL Attending Unavailable ROSALBA CINTRON Attending Unavailable HEIKE, PHIL Attending Unavailable HEIKE, PHIL R Referring Unavailable KARYNA, CHAVEZ L Primary Care Unavailable SILVESTRE SUÁREZ Attending Unavailable HEIKE, PHIL R Referring Unavailable KARYNA, CHAVEZ L Primary Care Unavailable VANESA SEGOVIA Admitting Unavailable SEGOVIAVANESA Attending Unavailable KARYNA, CHAVEZ L Primary Care Unavailable MEHREEN SHAY F Consulting Unavaila ble KATLYN MSALLS Consulting Unavailable HARIRILARISSA Consulting Unavailable AHMET AVLVERDE Consulting Unavailable KARYNA, CHAVEZ L Primary Care [...] Care Unavailable HEIKE, PHIL R Referring Unavailable JASPAL CLAUDEEN K F Referring Unavaila ble KARYNA, CHAVEZ L Primary Care Unavailable YSABEL, BETTE S Referring Unavailable KARYNA, CHAVEZ L Primary Care Unavailable JASPAL CLAUDEEN K F Referring Unavaila ble KARYNA, [...] Unavailable KARYNA, CHAVEZ L Primary Care Unavailable HEIKEPHIL PITTMAN R Referring Unavailable KARYNA, CHAVEZ L Primary Care Unavailable SILVESTRE SUÁREZ Attending Unavailable HEIKE, PHIL R Referring Unavailable KARYNA, CHAVEZ L Primary Care Unavailable KARYNA, CHAVEZ L Referring Unavailable KARYNA, CHAVEZ L Primary Care Unavailable ALAN CONNOR Attending Unavailabl e ANIA SANCHEZ Referring Unavailable KARYNA, CHAVEZ L Primary Care Unavailable Purpose PROBLEMS DATE TYPE CONDITION / CODE ATTENDING STATUS [facility] 07/23/2024 Unknown Maternal care fo r abnormalities of the heart rate or rhythm, unspecified trimester, not applicable or unspecified / O36.8390(ICD-10) ALAN CONNOR [facility] 07/17/2024 Unknown Gestational diab etes mellitus in , unspecified control / O24.419(ICD-10) ALAN CONNOR [facility] 07/24/2024 Unknown High Risk Gestat ion / FREETEXT(AOF) ALAN CONNOR [facility] 07/10/2024 Unknown Encounter for supervision of normal , unspecified, unspecified trimester / Z34.90(ICD-10) ANIA SANCHEZ [facility] 07/10/2024 Unknown Initial Visit / FREETEXT(AOF) ANIA SANCHEZ [facility] 07/06/2024 Unknown Gestational diab etes mellitus in , diet controlled / O24.410(ICD-10) TUNG FERNANDEZ [facility] 07/06/2024 Unknown Gestational Diab etes / FREETEXT(AOF) TUNG FERNANDEZ [facility] 06/11/2024 Unknown Maternal care fo r excessive growth, second trimester, not applicable or unspecified / O36.62X0(ICD-10) VANESA SEGOVIA [facility] 06/11/2024 Unknown Polyhydramnios, unspecified trimester, not applicable or unspecified / O40.9XX0(ICD-10) VANESA SEGOVIA [facility] 06/11/2024 Unknown Finding of other specified substances, not normally found in blood / R78.89(ICD-10) VANESA SEGOVIA [facility] 06/11/2024 Unknown Dizziness and gi ddiness / R42(ICD-10) VANESA SEGOVIA [facility] 06/11/2024 Unknown Encounter for therapeutic drug level monitoring / Z51.81(ICD-10) VANESA SEGOVIA [facility] 06/11/2024 Unknown Other seed cone picker (current) drug therapy / Z79.899(ICD-10) VANESA SEGOVIA [facility] 06/11/2024 Unknown Add on abnormal heart rhythm / UNK(Unknown) SILVESTRE SUÁREZ [facility] 06/11/2024 Unknown Encounter for ot her specified screening / Z36.89(ICD-10) NA [facility] PROCEDURES No Procedure Records Found VITAL SIGNS No Vital Signs Records Found RESULTS BEDSIDE GLUCOSE Collected: 10:10 AM Status: COMPLETED Source: [facility] TYPE CODE TESTS RESULT OUT OF RANGE REFERENCE UNITS LAB BEDG BEDSIDE GLUCOSE ???BEDG 124 High 65-99 mg/dL Performed By: #### BEDG #### [facility] ([facility]) [facility] [place] [address] VIR COMPREHENSIVE METABOLIC PANEL Collected: 2024 7:57 AM Status: COMPLETED Source: [facility] TYPE CODE TESTS RESULT OUT OF [...] race coefficient. Performed By: #### CMP #### [facility] ([facility]) [address] [place] [address] VIR BEDSIDE GLUCOSE Collected: 06/28/2024 6:05 AM Status: COMPLETED Source: [facility] TYPE CODE TESTS RESULT OUT OF RANGE REFERENCE UNITS LAB BEDG BEDSIDE GLUCOSE ???BEDG 92 65-99 mg/dL Performed By: #### BEDG #### [facility] ([facility]) [address] [place] [address] VIR BEDSIDE GLUCOSE LAB Collected: 06/27/2024 8:44 PM Status: COMPLETED Source: [facility] TYPE CODE TESTS RESULT OUT OF RANGE REFERENCE UNITS LAB BEDG(LOINC) BEDSIDE GLUCOSE LAB 102 High 65-99 mg/dL BEDSIDE GLUCOSE LAB Collected: 06/27/2024 4:40 PM Status: COMPLETED Source: [facility] TYPE CODE TESTS RESULT OUT OF RANGE REFERENCE UNITS LAB BEDG(LOINC) BEDSIDE GLUCOSE LAB 115 High 65-99 mg/dL BEDSIDE GLUCOSE LAB Collected: 06/27/2024 3:32 PM Status: COMPLETED Source: [facility] TYPE CODE TESTS RESULT OUT OF RANGE REFERENCE UNITS LAB BEDG(LOINC) BEDSIDE GLUCOSE LAB 183 High 65-99 mg/dL BEDSIDE GLUCOSE LAB Collected: 06/27/2024 9:34 AM Status: COMPLETED Source: [facility] TYPE CODE TESTS RESULT OUT OF RANGE REFERENCE UNITS LAB BEDG(LOINC) BEDSIDE GLUCOSE LAB 156 High 65-99 mg/dL COMPREHENSIVE METABOLIC PANEL Collected: 2024 6:48 AM Status: COMPLETED Source: [facility] TYPE CODE TESTS RESULT OUT OF [...] GLU(LOINC) GLUCOSE 104 High 65-99 mg/dL LAB CA(LOINC) CALCIUM 9.0 8.5-10.5 mg/dL LAB TP(LOINC) TOTAL PROTEIN 5.6 Low 6.0-8.0 g/dL LAB ALB(LOINC) ALBUMIN 3.3 3.2-5.3 g/dL LAB ALK(LOINC) ALKALINE PHOSPHATASE 71 39-130 U/L LAB AST(LOINC) AST 11 0-41 U/L LAB ALT1(LOINC) ALT 7 0-31 U/L LAB TBIL(LOINC) BILIRUBIN,TOTAL 0.4 0.3-1.2 mg/d L LAB EGFR(LOINC) eGFR (CKD-EPI) NON-RACE DEPENDENT >90 >59 ml/min/1 .73sq.m Result Comment: Reported eGFR is based on the CKD-EPI 2020 equation that does not use a race coefficient. Performed By: #### ROSA, 1911 3- #### [facility] ([id number]) [address] [place] [address], [address] [address] MAGNESIUM Collected: 06/27/2024 6:48 AM S tatus: COMPLETED Source: [facility] TYPE CODE TESTS RESULT OUT OF RANGE REFERENCE UNITS LAB MG(LOINC) MAGNESIUM 1.5 Low 1.8-2.6 mg/dL Performed By: #### CMP, 1911 3- #### [facility] ([id number]) [address] [place] [address], [address] [place] [address] BEDSIDE GLUCOSE LAB Collected: 06/27/2024 6:03 AM Status: COMPLETED Source: [facility] TYPE CODE TESTS RESULT OUT OF RANGE REFERENCE UNITS LAB BEDG([facility]) BEDSIDE GLUCOSE LAB 108 High 65-99 mg/dL BEDSIDE GLUCOSE LAB Collected: 06/26/2024 8:04 PM Status: COMPLETED Source: [facility] TYPE CODE TESTS RESULT OUT OF RANGE REFERENCE UNITS LAB BEDG([facility]) BEDSIDE GLUCOSE LAB 112 High 65-99 mg/dL BEDSIDE GLUCOSE LAB Collected: 06/26/2024 4:23 PM Status: COMPLETED Source: [facility] TYPE CODE TESTS RESULT OUT OF RANGE REFERENCE UNITS LAB BEDG([facility]) BEDSIDE GLUCOSE LAB 137 High 65-99 mg/dL BEDSIDE GLUCOSE LAB Collected: 06/26/2024 11:22 AM Status: COMPLETED Source: [facility] TYPE CODE TESTS RESULT OUT OF RANGE REFERENCE UNITS LAB BEDG([facility]) BEDSIDE GLUCOSE LAB 113 High 65-99 mg/dL BEDSIDE GLUCOSE LAB Collected: 06/26/2024 8:17 AM Status: COMPLETED Source: [facility] TYPE CODE TESTS RESULT OUT OF RANGE REFERENCE UNITS LAB BEDG([facility]) BEDSIDE GLUCOSE LAB 109 High 65-99 mg/dL COMPREHENSIVE METABOLIC PANEL Collected: 2024 5:45 AM Status: COMPLETED Source: [facility] TYPE CODE TESTS RESULT OUT OF [...] LAB AST(LOINC) AST 13 0-41 U/L LAB ALT1(INC) ALT 8 0-31 U/L LAB TBIL(LOINC) BILIRUBIN,TOTAL 0.3 0.3-1.2 mg/d L LAB EGFR(LOINC) eGFR (CKD-EPI) NON-RACE DEPENDENT >90 >59 ml/min/1 .73sq.m Result Comment: Reported eGFR is based on the CKD-EPI 2020 equation that does not use a race coefficient. Performed By: #### CMP #### [facility] ([id number]) [address] [place] [address], [address] [place] [address] BEDSIDE GLUCOSE LAB Collected: 06/26/2024 5:44 AM Status: COMPLETED Source: [facility] TYPE CODE TESTS RESULT OUT OF RANGE REFERENCE UNITS LAB BEDG([facility]) BEDSIDE GLUCOSE LAB 101 High 65-99 mg/dL BEDSIDE GLUCOSE LAB Collected: 06/25/2024 8:17 PM Status: COMPLETED Source: [facility] TYPE CODE TESTS RESULT OUT OF RANGE REFERENCE UNITS LAB BEDG([facility]) BEDSIDE GLUCOSE LAB 113 High 65-99 mg/dL BEDSIDE GLUCOSE LAB Collected: 06/25/2024 2:54 PM Status: COMPLETED Source: [facility] TYPE CODE TESTS RESULT OUT OF RANGE REFERENCE UNITS LAB BEDG([facility]) BEDSIDE GLUCOSE LAB 122 High 65-99 mg/dL BEDSIDE GLUCOSE LAB Collected: 06/25/2024 9:59 AM Status: COMPLETED Source: [facility] TYPE CODE TESTS RESULT OUT OF RANGE REFERENCE UNITS LAB BEDG([facility]) BEDSIDE GLUCOSE LAB 145 High 65-99 mg/dL COMPREHENSIVE METABOLIC PANEL Collected: 2024 5:48 AM Status: COMPLETED Source: [facility] TYPE CODE TESTS RESULT OUT OF [...] race coefficient. Performed By: #### CMP #### [facility] ([id number]) [address] [place] [address], [address] [place] [address] BEDSIDE GLUCOSE LAB Collected: 06/24/2024 8:44 PM Status: COMPLETED Source: [facility] TYPE CODE TESTS RESULT OUT OF RANGE REFERENCE UNITS LAB BEDG([facility]) BEDSIDE GLUCOSE LAB 106 High 65-99 mg/dL BEDSIDE GLUCOSE LAB Collected: 06/24/2024 3:58 PM Status: COMPLETED Source: [facility] TYPE CODE TESTS RESULT OUT OF RANGE REFERENCE UNITS LAB BEDG([facility]) BEDSIDE GLUCOSE LAB 113 High 65-99 mg/dL BEDSIDE GLUCOSE LAB Collected: 06/24/2024 10:06 AM Status: COMPLETED Source: [facility] TYPE CODE TESTS RESULT OUT OF RANGE REFERENCE UNITS LAB BEDG([facility]) BEDSIDE GLUCOSE LAB 116 High 65-99 mg/dL POTASSIUM Collected: 06/24/2024 8:21 AM S tatus: COMPLETED Source: [facility] TYPE CODE TESTS RESULT OUT OF RANGE REFERENCE UNITS LAB K([facility]) POTASSIUM 3.7 3.5-5.0 mmol/L Performed By: #### 2823-3, 1 9123-9 #### [facility] ([id number]) [address], [address] [place] [address] MAGNESIUM Collected: 06/24/2024 8:21 AM S tatus: COMPLETED Source: [facility] TYPE CODE TESTS RESULT OUT OF RANGE REFERENCE UNITS LAB MG(LOINC) MAGNESIUM 1.6 Low 1.8-2.6 mg/dL Performed By: #### 2823-3, 1 91-9 #### [facility] ([id number]) [address], [address] [place] [address] BEDSIDE GLUCOSE LAB Collected: 06/24/2024 5:32 AM Status: COMPLETED Source: [facility] TYPE CODE TESTS RESULT OUT OF RANGE REFERENCE UNITS LAB BEDG(LOINC) BEDSIDE GLUCOSE LAB 93 65-99 mg/dL COMPREHENSIVE METABOLIC PANEL Collected: 2024 5:32 AM Status: COMPLETED Source: [facility] TYPE CODE TESTS RESULT OUT OF [...] Performed By: #### ROSA, 1053 5-3 #### [facility] ([id number]) [address] [place] [address] DIGOXIN Collected: 06/24/2024 5:32 AM S tatus: COMPLETED Source: [facility] TYPE CODE TESTS RESULT OUT OF RANGE REFERENCE UNITS LAB DIGO(LOINC) DIGOXIN 1.3 0.8-2.0 ng/mL Performed By: #### ROSA, 1053 5-3 #### [facility] ([id number]) [address] [place] [address] POTASSIUM Collected: 11:41 PM Status: COMPLETED Source: [facility] TYPE CODE TESTS RESULT OUT OF RANGE REFERENCE UNITS LAB K(LOINC) POTASSIUM 3.8 3.5-5.0 mmol/L Performed By: #### 2823-3, 1 9123-9 #### [facility] ([id number]) [address] [place] [address] MAGNESIUM Collected: 06/23/2024 11:41 PM Status: COMPLETED Source: [facility] TYPE CODE TESTS RESULT OUT OF RANGE REFERENCE UNITS LAB MG(LOINC) MAGNESIUM 1.7 Low 1.8-2.6 mg/dL Performed By: #### 2823-3, 1 9123-9 #### [facility] ([id number]) [address] [place] [address] BEDSIDE GLUCOSE LAB Collected: 06/23/2024 7:58 PM Status: COMPLETED Source: [facility] TYPE CODE TESTS RESULT OUT OF RANGE REFERENCE UNITS LAB BEDG(LOINC) BEDSIDE GLUCOSE LAB 129 High 65-99 mg/dL POTASSIUM Collected: 06/23/2024 4:29 PM S tatus: COMPLETED Source: [facility] TYPE CODE TESTS RESULT OUT OF RANGE REFERENCE UNITS LAB K(LOINC) POTASSIUM 3.7 3.5-5.0 mmol/L Performed By: #### 2823-3, 1 9123-9 #### [facility] ([id number]) [address], [address] [place] [address] MAGNESIUM Collected: 06/23/2024 4:29 PM S tatus: COMPLETED Source: [facility] TYPE CODE TESTS RESULT OUT OF RANGE REFERENCE UNITS LAB MG(LOINC) MAGNESIUM 1.8 1.8-2.6 mg/dL Performed By: #### 2823-3, 1 9123-9 #### [facility] ([id number]) [address] [place] [address], [address] [place] [address] BEDSIDE GLUCOSE LAB Collected: 06/23/2024 2:49 PM Status: COMPLETED Source: [facility] TYPE CODE TESTS RESULT OUT OF RANGE REFERENCE UNITS LAB BEDG(LOINC) BEDSIDE GLUCOSE LAB 127 High 65-99 mg/dL MAGNESIUM Collected: 06/23/2024 9:15 AM S tatus: COMPLETED Source: [facility] TYPE CODE TESTS RESULT OUT OF RANGE REFERENCE UNITS LAB MG(LOINC) MAGNESIUM 1.7 Low 1.8-2.6 mg/dL Performed By: #### 45040-5 # ### [facility] ([id number]) [address] [place] [address], [address] [place] [address] BEDSIDE GLUCOSE LAB Collected: 06/23/2024 9:03 AM Status: COMPLETED Source: [facility] TYPE CODE TESTS RESULT OUT OF RANGE REFERENCE UNITS LAB BEDG(LOINC) BEDSIDE GLUCOSE LAB 120 High 65-99 mg/dL BEDSIDE GLUCOSE LAB Collected: 06/23/2024 5:43 AM Status: COMPLETED Source: [facility] TYPE CODE TESTS RESULT OUT OF RANGE REFERENCE UNITS LAB BEDG(LOINC) BEDSIDE GLUCOSE LAB 98 65-99 mg/dL COMPREHENSIVE METABOLIC PANEL Collected: 2024 5:35 AM Status: COMPLETED Source: [facility] TYPE CODE TESTS RESULT OUT OF [...] Performed By: #### ROSA, 1053 5-3 #### [facility] ([id number]) [address] [place] [address] DIGOXIN Collected: 06/23/2024 5:35 AM S tatus: COMPLETED Source: [facility] TYPE CODE TESTS RESULT OUT OF RANGE REFERENCE UNITS LAB DIGO(INC) DIGOXIN 1.5 0.8-2.0 ng/mL Performed By: #### CMP, 1053 5-3 #### [facility] ([id number]) [address] [place] [address], [facility] [address] [place] [address] MAGNESIUM Collected: 06/22/2024 11:14 PM Status: COMPLETED Source: [facility] TYPE CODE TESTS RESULT OUT OF RANGE REFERENCE UNITS LAB MG(LOINC) MAGNESIUM 1.6 Low 1.8-2.6 mg/dL Performed By: #### 53019-5 # ### [facility] ([id number]) [address], [address] [place] [address] BEDSIDE GLUCOSE LAB Collected: 06/22/2024 9:08 PM Status: COMPLETED Source: [facility] TYPE CODE TESTS RESULT OUT OF RANGE REFERENCE UNITS LAB BEDG(LOINC) BEDSIDE GLUCOSE LAB 133 High 65-99 mg/dL POTASSIUM Collected: 06/22/2024 6:10 PM S tatus: COMPLETED Source: [facility] TYPE CODE TESTS RESULT OUT OF RANGE REFERENCE UNITS LAB K(LOINC) POTASSIUM 4.1 3.5-5.0 mmol/L Performed By: #### 2823-3 ## ## [facility] ([id number]) [address] [place] [address], [address] [place] [address] BEDSIDE GLUCOSE LAB Collected: 06/22/2024 2:40 PM Status: COMPLETED Source: [facility] TYPE CODE TESTS RESULT OUT OF RANGE REFERENCE UNITS LAB BEDG(LOINC) BEDSIDE GLUCOSE LAB 133 High 65-99 mg/dL IONIZED MAGNESIUM Collected: 06/22/2024 2:17 PM Status: COMPLETED Source: [facility] TYPE CODE TESTS RESULT OUT OF RANGE REFERENCE UNITS LAB IMAG(LOINC) IONIZED MAGNESIUM 0.45 0.45-0.74 mmol/L Result Comment: NEW REFERENC E RANGE Performed By: #### 68292-1, 08286-3 #### [facility] ([id number]) [address] [place] [address], [address] [place] [address] MAGNESIUM Collected: 06/22/2024 2:17 PM S tatus: COMPLETED Source: [facility] TYPE CODE TESTS RESULT OUT OF RANGE REFERENCE UNITS LAB MG(LOINC) MAGNESIUM 1.9 1.8-2.6 mg/dL Performed By: #### 75169-2, 75808-4 #### [facility] ([id number]) [facility], [address] [place] [address] BEDSIDE GLUCOSE LAB Collected: 06/22/2024 11:12 AM Status: COMPLETED Source: [facility] TYPE CODE TESTS RESULT OUT OF RANGE REFERENCE UNITS LAB BEDG(LOINC) BEDSIDE GLUCOSE LAB 127 High 65-99 mg/dL COMPREHENSIVE METABOLIC PANEL Collected: 2024 5:49 AM Status: COMPLETED Source: [facility] TYPE CODE TESTS RESULT OUT OF [...] use a race coefficient. Performed By: #### CMP, 1053 5-3, 68963-0 #### [facility] ([id number]) [address], [address] [place] [address] DIGOXIN Collected: 06/22/2024 5:49 AM S tatus: COMPLETED Source: [facility] TYPE CODE TESTS RESULT OUT OF RANGE REFERENCE UNITS LAB DIGO(LOINC) DIGOXIN 1.6 0.8-2.0 ng/mL Performed By: #### CMP, 1053 5-3, 19130-1 #### [facility] ([id number]) [address] [place] [address] MAGNESIUM Collected: 06/22/2024 5:49 AM S tatus: COMPLETED Source: [facility] TYPE CODE TESTS RESULT OUT OF RANGE REFERENCE UNITS LAB MG(LOINC) MAGNESIUM 1.7 Low 1.8-2.6 mg/dL Performed By: #### CMP, 1053 5-3, 38713-8 #### [facility] ([id number]) [facility], [address] [place] [address] UNLISTED LAB TEST Collected: 06/22/2024 5:49 AM Status: COMPLETED Source: [facility] TYPE CODE TESTS RESULT OUT OF RANGE REFERENCE UNITS LAB LOOK(LOINC) UNLISTED LAB TEST Sent to reference lab [place] GENER[facility] ORDER Collected: 5:49 AM Status: COMPLETED Source: [facility] TYPE CODE TESTS RESULT OUT OF RANGE REFERENCE UNITS LAB GOTEST(LOINC) TEST NAME ALBERTO MCFADDEN ON NO GEL SERUM [facility] [place](LOINC) TEST RESULT SEE COMMENTS 06/23/2024 12:49 PM Result Comment: NOTE Test Result Flag Unit RefValue Flecainide, S 0.5 mcg/mL REFERENCE VALUE 0.2 - 1.0 (Therapeutic concentration, trough value), >1.0 (Toxic concentration, trough value) ADDITIONAL INFORMATION This test was developed and its performance characteristics determined by [facility] in a manner consistent with CLIA requirements. This test has not been cleared or approved by the [place].S. Food and Drug Administration. Test Performed by: [facility] [address] [place] [address] Senior Technical Project Manager: Mino Cain Ph.D.; CLIA# [id number] BEDSIDE GLUCOSE LAB Collected: 06/22/2024 5:08 AM Status: COMPLETED Source: [facility] TYPE CODE TESTS RESULT OUT OF RANGE REFERENCE UNITS LAB BEDG(LOINC) BEDSIDE GLUCOSE LAB 103 High 65-99 mg/dL DIGOXIN Collected: 06/21/2024 6:19 PM S tatus: COMPLETED Source: [facility] TYPE CODE TESTS RESULT OUT OF RANGE REFERENCE UNITS LAB DIGO(LOINC) DIGOXIN 1.9 0.8-2.0 ng/mL Performed By: #### 86439-0, 2823-3, 78292-7 #### [facility] ([id number]) [address] [place] [address], [address] [place] [address] POTASSIUM Collected: 06/21/2024 6:19 PM S tatus: COMPLETED Source: [facility] TYPE CODE TESTS RESULT OUT OF RANGE REFERENCE UNITS LAB K(LOINC) POTASSIUM 3.9 3.5-5.0 mmol/L Performed By: #### 85647-6, 2823-3, 67298-7 #### [facility] ([id number]) [address] [place] [address], [facility] [address] [place] [address] MAGNESIUM Collected: 06/21/2024 6:19 PM S tatus: COMPLETED Source: [facility] TYPE CODE TESTS RESULT OUT OF RANGE REFERENCE UNITS LAB MG(LOINC) MAGNESIUM 1.8 1.8-2.6 mg/dL Performed By: #### 46360-6, 2823-3, 59950-0 #### [facility] ([id number]) [address] [place] [address], [address] [place] [address] BEDSIDE GLUCOSE LAB Collected: 06/21/2024 2:45 PM Status: COMPLETED Source: [facility] TYPE CODE TESTS RESULT OUT OF RANGE REFERENCE UNITS LAB BEDG(LOINC) BEDSIDE GLUCOSE LAB 131 High 65-99 mg/dL BEDSIDE GLUCOSE LAB Collected: 06/21/2024 9:58 AM Status: COMPLETED Source: [facility] TYPE CODE TESTS RESULT OUT OF RANGE REFERENCE UNITS LAB BEDG(LOINC) BEDSIDE GLUCOSE LAB 131 High 65-99 mg/dL COMPREHENSIVE METABOLIC PANEL Collected: 2024 5:37 AM Status: COMPLETED Source: [facility] TYPE CODE TESTS RESULT OUT OF [...] use a race coefficient. Performed By: #### [facility], 1912 3-9 #### [facility] ([id number]) [address] [place] [address] MAGNESIUM Collected: 06/21/2024 5:37 AM S tatus: COMPLETED Source: [facility] TYPE [facility] [place] TESTS RESULT OUT OF RANGE REFERENCE UNITS LAB MG(LOINC) MAGNESIUM 1.5 Low 1.8-2.6 mg/dL Performed By: #### CMP, 1912 3-9 #### [facility] ([id number]) [address] [place] [address] BEDSIDE GLUCOSE LAB Collected: 06/21/2024 5:09 AM Status: COMPLETED Source: [facility] TYPE CODE TESTS RESULT OUT OF RANGE REFERENCE UNITS LAB BEDG(LOINC) BEDSIDE GLUCOSE LAB 98 65-99 mg/dL POTASSIUM Collected: 06/20/2024 8:44 PM S tatus: COMPLETED Source: [facility] TYPE [facility] [place] TESTS RESULT OUT OF RANGE REFERENCE UNITS LAB K(LOINC) POTASSIUM 3.7 3.5-5.0 mmol/L Performed By: #### 2823-3, 1 9123-9 #### [facility] ([id number]) [address] [place] [id number] MAGNESIUM Collected: 06/20/2024 8:44 PM S tatus: COMPLETED Source: [facility] TESTS RESULT OUT OF RANGE REFERENCE UNITS LAB MG(LOINC) MAGNESIUM 1.9 1.8-2.6 mg/dL Performed By: #### 2823-3, 1 9123-9 #### [facility] ([id number]) [address] [place] [address] BEDSIDE GLUCOSE LAB Collected: 06/20/2024 7:34 PM Status: COMPLETED Source: [facility] TYPE CODE TESTS RESULT OUT OF RANGE REFERENCE UNITS LAB BEDG(LOINC) BEDSIDE GLUCOSE LAB 130 High 65-99 mg/dL BEDSIDE GLUCOSE LAB Collected: 06/20/2024 3:58 PM Status: COMPLETED Source: [facility] TYPE CODE TESTS RESULT OUT OF RANGE REFERENCE UNITS LAB BEDG(LOINC) BEDSIDE GLUCOSE LAB 95 65-99 mg/dL POTASSIUM Collected: 06/20/2024 1:14 PM S tatus: COMPLETED Source: [facility] TYPE CODE TESTS RESULT OUT OF RANGE REFERENCE UNITS LAB K(LOINC) POTASSIUM 3.9 3.5-5.0 mmol/L Performed By: #### 2823-3, 1 9123-9, 10364-8 #### [facility] ([id number]) [address], [address] [place] [address] MAGNESIUM Collected: 06/20/2024 1:14 PM S tatus: COMPLETED Source: [facility] TYPE CODE TESTS RESULT OUT OF RANGE REFERENCE UNITS LAB MG(LOINC) MAGNESIUM 1.8 1.8-2.6 mg/dL Performed By: #### 2823-3, 1 9123-9, 77697-1 #### [facility] ([id number]) [address] [place] [address], [address] [place] [address] DIGOXIN Collected: 06/20/2024 1:14 PM S tatus: COMPLETED Source: [facility] TYPE CODE TESTS RESULT OUT OF RANGE REFERENCE UNITS LAB DIGO(INC) DIGOXIN 1.9 0.8-2.0 ng/mL Performed By: #### 2823-3, 1 9123-9, 41239-1 #### [facility] ([id number]) [address] [place] [address], [address] [place] [address] BEDSIDE GLUCOSE LAB Collected: 06/20/2024 1:00 PM Status: COMPLETED Source: [facility] TYPE CODE TESTS RESULT OUT OF RANGE REFERENCE UNITS LAB BEDG(LOINC) BEDSIDE GLUCOSE LAB 123 High 65-99 mg/dL COMPREHENSIVE METABOLIC PANEL Collected: 2024 4:52 AM Status: COMPLETED Source: [facility] TYPE CODE TESTS RESULT OUT OF [...] a race coefficient. Performed By: #### ROSA, 1912 3-9 #### [facility] ([id number]) [address] [place] [address], [facility] [address] [place] [address] MAGNESIUM Collected: 06/20/2024 4:52 AM S tatus: COMPLETED Source: [facility] TYPE CODE TESTS RESULT OUT OF RANGE REFERENCE UNITS LAB MG(LOINC) MAGNESIUM 1.8 1.8-2.6 mg/dL Performed By: #### CMP, 1912 3-9 #### [facility] ([id number]) [address] [place] [address], [address] [place] [address] BEDSIDE GLUCOSE LAB Collected: 06/19/2024 7:38 PM Status: COMPLETED Source: [facility] TYPE CODE TESTS RESULT OUT OF RANGE REFERENCE UNITS LAB BEDG([facility]) BEDSIDE GLUCOSE LAB 117 High 65-99 mg/dL POTASSIUM Collected: 06/19/2024 7:07 PM S tatus: COMPLETED Source: [facility] TYPE CODE TESTS RESULT OUT OF RANGE REFERENCE UNITS LAB K(LOINC) POTASSIUM 3.5 3.5-5.0 mmol/L Performed By: #### 2823-3, 1 9123-9 #### [facility] ([id number]) [address] [place] [address], [address] [address] MAGNESIUM Collected: 06/19/2024 7:07 PM S tatus: COMPLETED Source: [facility] TYPE CODE TESTS RESULT OUT OF RANGE REFERENCE UNITS LAB MG(LOINC) MAGNESIUM 1.7 Low 1.8-2.6 mg/dL Performed By: #### 2823-3, 1 9123-9 #### [facility] ([id number]) [address] [place] [address], [address] [address] BEDSIDE GLUCOSE LAB Collected: 06/19/2024 2:48 PM Status: COMPLETED Source: [facility] TYPE CODE TESTS RESULT OUT OF RANGE REFERENCE UNITS LAB BEDG(LOINC) BEDSIDE GLUCOSE LAB 108 High 65-99 mg/dL BEDSIDE GLUCOSE LAB Collected: 06/19/2024 12:17 PM Status: COMPLETED Source: [facility] TYPE CODE TESTS RESULT OUT OF RANGE REFERENCE UNITS LAB BEDG(LOINC) BEDSIDE GLUCOSE LAB 91 65-99 mg/dL MAGNESIUM Collected: 06/19/2024 8:54 AM S tatus: COMPLETED Source: [facility] TYPE CODE TESTS RESULT OUT OF RANGE REFERENCE UNITS LAB MG(LOINC) MAGNESIUM 1.9 1.8-2.6 mg/dL Performed By: #### 62606-6 # ### [facility] ([id number]) [address] [place] [address], [address] [address] POTASSIUM Collected: 06/19/2024 6:52 AM S tatus: COMPLETED Source: [facility] TYPE CODE TESTS RESULT OUT OF RANGE REFERENCE UNITS LAB K(LOINC) POTASSIUM 3.7 3.5-5.0 mmol/L Performed By: #### 2823-3 ## ## [facility] ([id number]) [address] [place] [address], [address] [address] DIGOXIN Collected: 06/19/2024 6:07 AM S tatus: COMPLETED Source: [facility] TYPE CODE TESTS RESULT OUT OF RANGE REFERENCE UNITS LAB DIGO(LOINC) DIGOXIN 1.6 0.8-2.0 ng/mL Performed By: #### 93910-6 # ### [facility] ([id number]) [address] [place] [address] BEDSIDE GLUCOSE LAB Collected: 06/19/2024 5:11 AM Status: COMPLETED Source: [facility] TYPE CODE TESTS RESULT OUT OF RANGE REFERENCE UNITS LAB BEDG(LOINC) BEDSIDE GLUCOSE LAB 86 65-99 mg/dL COMPREHENSIVE METABOLIC PANEL Collected : 06/19/2024 12:56 AM Status: COMPLETED Source: [facility] TYPE CODE TESTS RESULT OUT OF [...] use a race coefficient. Performed By: #### CMP, 1912 3-9 #### [facility] ([id number]) [address] [place] [address] MAGNESIUM Collected: 06/19/2024 12:56 AM Status: COMPLETED Source: [facility] TYPE CODE TESTS RESULT OUT OF RANGE REFERENCE UNITS LAB MG(LOINC) MAGNESIUM 1.8 1.8-2.6 mg/dL Performed By: #### [facility], 1911 3-9 #### [facility] ([id number]) [address], [address] [place] [address] BEDSIDE GLUCOSE LAB Collected: 06/18/2024 8:04 PM Status: COMPLETED Source: [facility] TYPE CODE TESTS RESULT OUT OF RANGE REFERENCE UNITS LAB BEDG(LOINC) BEDSIDE GLUCOSE LAB 121 High 65-99 mg/dL UNLISTED LAB TEST Collected: 06/18/2024 6:52 PM Status: COMPLETED Source: [facility] TYPE CODE TESTS RESULT OUT OF RANGE REFERENCE UNITS LAB LOOK(LOINC) UNLISTED LAB TEST Sent to reference lab [place] GENERIC ORDER Collected: 6:52 PM Status: COMPLETED Source: [facility] TYPE CODE TESTS RESULT OUT OF RANGE REFERENCE UNITS LAB GOTEST([facility]) TEST NAME ALBERTO FLECAINIDE RED SERUM LAB [place]([facility]) TEST RESULT SEE COMMENTS 06/22/2024 06:36 PM Result Comment: NOTE Test Result Flag Unit RefValue Flecainide, S 0.6 mcg/mL REFERENCE VALUE 0.2 - 1.0 (Therapeutic concentration, trough value), >1.0 (Toxic concentration, trough value) ADDITIONAL INFORMATION This test was developed and its performance characteristics determined by [facility] in a manner consistent with CLIA requirements. This test has not been cleared or approved by the U.S. Food and Drug Administration. Test Performed by: [facility] [address] [place] [address] Senior Technical Project Manager: Mino Cain Ph.D.; CLIA# [id number] DIGOXIN Collected: 06/18/2024 4:53 PM S tatus: COMPLETED Source: [facility] TYPE CODE TESTS RESULT OUT OF RANGE REFERENCE UNITS LAB DIGO(LOINC) DIGOXIN 1.2 0.8-2.0 ng/mL Performed By: #### 14919-8, 2823-3, 12863-5 #### [facility] ([id number]) [address] [place] [address], [facility] [address] [place] [address] POTASSIUM Collected: 06/18/2024 4:53 PM S tatus: COMPLETED Source: [facility] TYPE CODE TESTS RESULT OUT OF RANGE REFERENCE UNITS LAB K(LOINC) POTASSIUM 3.6 3.5-5.0 mmol/L Performed By: #### 31661-6, 2823-3, 47704-1 #### [facility] ([id number]) [address] [place] [address], [address] [place] [address] MAGNESIUM Collected: 06/18/2024 4:53 PM S tatus: COMPLETED Source: [facility] TYPE CODE TESTS RESULT OUT OF RANGE REFERENCE UNITS LAB MG(LOINC) MAGNESIUM 1.9 1.8-2.6 mg/dL Performed By: #### 57634-2, 2823-3, 30487-2 #### [facility] ([id number]) [address] [place] [address], [address] [place] [address] BEDSIDE GLUCOSE LAB Collected: 06/18/2024 2:30 PM Status: COMPLETED Source: [facility] TYPE CODE TESTS RESULT OUT OF RANGE REFERENCE UNITS LAB BEDG(LOINC) BEDSIDE GLUCOSE LAB 141 High 65-99 mg/dL BEDSIDE GLUCOSE LAB Collected: 06/18/2024 10:33 AM Status: COMPLETED Source: [facility] TYPE CODE TESTS RESULT OUT OF RANGE REFERENCE UNITS LAB BEDG(LOINC) BEDSIDE GLUCOSE LAB 126 High 65-99 mg/dL BEDSIDE GLUCOSE LAB Collected: 06/18/2024 6:03 AM Status: COMPLETED Source: [facility] TYPE CODE TESTS RESULT OUT OF RANGE REFERENCE UNITS LAB BEDG(LOINC) BEDSIDE GLUCOSE LAB 112 High 65-99 mg/dL MAGNESIUM Collected: 06/18/2024 5:39 AM S tatus: COMPLETED Source: [facility] TYPE CODE TESTS RESULT OUT OF RANGE REFERENCE UNITS LAB MG(INC) MAGNESIUM 1.8 1.8-2.6 mg/dL Performed By: #### 63395-2, CMP #### [facility] ([id number]) [address] [place] [address], [address] [place] [address] COMPREHENSIVE METABOLIC PANEL Collected: 2024 5:39 AM Status: COMPLETED Source: [facility] TYPE CODE TESTS RESULT OUT OF [...] use a race coefficient. Performed By: #### 97676-7, CMP #### [facility] ([id number]) [address] [place] [address], [address] [place] [address] BEDSIDE GLUCOSE LAB Collected: 06/17/2024 7:05 PM Status: COMPLETED Source: [facility] TYPE CODE TESTS RESULT OUT OF RANGE REFERENCE UNITS LAB BEDG(LOINC) BEDSIDE GLUCOSE LAB 137 High 65-99 mg/dL POTASSIUM Collected: 06/17/2024 6:53 PM S tatus: COMPLETED Source: [facility] TYPE CODE TESTS RESULT OUT OF RANGE REFERENCE UNITS LAB K(LOINC) POTASSIUM 4.0 3.5-5.0 mmol/L Performed By: #### 2823-3, 1 9123-9 #### [facility] ([id number]) [address] [place] [address], [address] [place] [address] MAGNESIUM Collected: 06/17/2024 6:53 PM S tatus: COMPLETED Source: [facility] TYPE CODE TESTS RESULT OUT OF RANGE REFERENCE UNITS LAB MG(LOINC) MAGNESIUM 1.7 Low 1.8-2.6 mg/dL Performed By: #### 2823-3, 1 9123-9 #### [facility] ([id number]) [address] [place] [address], [address] [place] [address] BEDSIDE GLUCOSE LAB Collected: 06/17/2024 3:56 PM Status: COMPLETED Source: [facility] TYPE CODE TESTS RESULT OUT OF RANGE REFERENCE UNITS LAB BEDG(LOINC) BEDSIDE GLUCOSE LAB 147 High 65-99 mg/dL BEDSIDE GLUCOSE LAB Collected: 06/17/2024 12:41 PM Status: COMPLETED Source: [facility] TYPE CODE TESTS RESULT OUT OF RANGE REFERENCE UNITS LAB BEDG(LOINC) BEDSIDE GLUCOSE LAB 125 High 65-99 mg/dL POTASSIUM Collected: 10:52 AM Status: COMPLETED Source: [facility] TYPE CODE TESTS RESULT OUT OF RANGE REFERENCE UNITS LAB K(LOINC) POTASSIUM 3.5 3.5-5.0 mmol/L Performed By: #### 2823-3 ## ## [facility] ([id number]) [address] [place] [address], [address] [place] [address] BEDSIDE GLUCOSE LAB Collected: 06/17/2024 6:06 AM Status: COMPLETED Source: [facility] TYPE CODE TESTS RESULT OUT OF RANGE REFERENCE UNITS LAB BEDG(LOINC) BEDSIDE GLUCOSE LAB 106 High 65-99 mg/dL DIGOXIN Collected: 06/17/2024 5:06 AM S tatus: COMPLETED Source: [facility] TYPE CODE TESTS RESULT OUT OF RANGE REFERENCE UNITS LAB DIGO(LOINC) DIGOXIN 1.1 0.8-2.0 ng/mL Performed By: #### 45221-8, CMP #### [facility] ([id number]) [address] [place] [address], [address] [place] [id number] COMPREHENSIVE METABOLIC PANEL Collected: 2024 5:06 AM Status: COMPLETED Source: [facility] TYPE CODE TESTS RESULT OUT OF [...] LAB AST(LOINC) AST 11 0-41 U/L LAB ALT1(INC) ALT 9 0-31 U/L LAB TBIL(INC) BILIRUBIN,TOTAL 0.4 0.3-1.2 mg/d L LAB EGFR([facility]) eGFR (CKD-EPI) NON-RACE DEPENDENT >90 >59 ml/min/1 .73sq.m Result Comment: Reported eGFR is based on the CKD-EPI 2020 equation that does not use a race coefficient. Performed By: #### 47209-1, CMP #### [facility] ([id number]) [address] [place] [address], [address] [place] [address] BEDSIDE GLUCOSE LAB Collected: 06/16/2024 7:49 PM Status: COMPLETED Source: [facility] TYPE CODE TESTS RESULT OUT OF RANGE REFERENCE UNITS LAB BEDG([facility]) BEDSIDE GLUCOSE LAB 141 High 65-99 mg/dL BEDSIDE GLUCOSE LAB Collected: 06/16/2024 3:07 PM Status: COMPLETED Source: [facility] TYPE CODE TESTS RESULT OUT OF RANGE REFERENCE UNITS LAB BEDG([facility]) BEDSIDE GLUCOSE LAB 119 High 65-99 mg/dL BEDSIDE GLUCOSE LAB Collected: 06/16/2024 12:02 PM Status: COMPLETED Source: [facility] TYPE CODE TESTS RESULT OUT OF RANGE REFERENCE UNITS LAB BEDG([facility]) BEDSIDE GLUCOSE LAB 111 High 65-99 mg/dL UNLISTED LAB TEST Collected: 06/16/2024 7:35 AM Status: COMPLETED Source: [facility] TYPE CODE TESTS RESULT OUT OF RANGE REFERENCE UNITS LAB LOOK([facility]) UNLISTED LAB TEST Sent to reference lab [place] GENERIC ORDER Collected: 7:35 AM Status: COMPLETED Source: [facility] TYPE CODE TESTS RESULT OUT OF RANGE REFERENCE UNITS LAB PRAKASHEST([facility]) TEST NAME ALBERTO MYERS([facility]) TEST RESULT SEE COMMENTS 06/18/2024 03:43 PM Result Comment: NOTE Test Result Flag Unit RefValue Flecainide, S 0.3 mcg/mL REFERENCE VALUE 0.2 - 1.0 (Therapeutic concentration, trough value), >1.0 (Toxic concentration, trough value) ADDITIONAL INFORMATION This test was developed and its performance characteristics determined by [facility] in a manner consistent with CLIA requirements. This test has not been cleared or approved by the U.S. Food and Drug Administration. Test Performed by: [address] [address] Senior Technical Project Manager: Mino Cain Ph.D.; CLIA# [id number] COMPREHENSIVE METABOLIC PANEL Collected: 2024 5:27 AM Status: COMPLETED Source: [facility] TYPE CODE TESTS RESULT OUT OF [...] LAB ALT1(LOINC) ALT 8 0-31 U/L LAB TBIL([facility]) BILIRUBIN,TOTAL 0.4 0.3-1.2 mg/d L LAB EGFR([facility]) eGFR (CKD-EPI) NON-RACE DEPENDENT >90 >59 ml/min/1 .73sq.m Result Comment: Reported eGFR is based on the CKD-EPI 2020 equation that does not use a race coefficient. Performed By: #### CMP #### [facility] ([id number]) [address] [place] [address], [address] [place] [address] BEDSIDE GLUCOSE LAB Collected: 06/16/2024 5:26 AM Status: COMPLETED Source: [facility] TYPE CODE TESTS RESULT OUT OF RANGE REFERENCE UNITS LAB BEDG([facility]) BEDSIDE GLUCOSE LAB 108 High 65-99 mg/dL BEDSIDE GLUCOSE LAB Collected: 06/15/2024 8:17 PM Status: COMPLETED Source: [facility] TYPE CODE TESTS RESULT OUT OF RANGE REFERENCE UNITS LAB BEDG([facility]) BEDSIDE GLUCOSE LAB 111 High 65-99 mg/dL DIGOXIN Collected: 06/15/2024 7:55 PM S tatus: COMPLETED Source: [facility] TYPE CODE TESTS RESULT OUT OF RANGE REFERENCE UNITS LAB DIGO([facility]) DIGOXIN 0.4 Low 0.8-2.0 ng/mL Performed By: #### 16145-5 # ### [facility] ([id number]) [address] [place] [address] MAGNESIUM Collected: 06/15/2024 6:38 PM S tatus: COMPLETED Source: [facility] TYPE CODE TESTS RESULT OUT OF RANGE REFERENCE UNITS LAB MG([facility]) MAGNESIUM 1.9 1.8-2.6 mg/dL Performed By: #### 42766-9 # ### [facility] ([id number]) [address] [place] [address] BEDSIDE GLUCOSE LAB Collected: 06/15/2024 1:16 PM Status: COMPLETED Source: [facility] TYPE CODE TESTS RESULT OUT OF RANGE REFERENCE UNITS LAB BEDG([facility]) BEDSIDE GLUCOSE LAB 106 High 65-99 mg/dL [place] GENERIC ORDER Collected: 12:09 PM Status: COMPLETED Source: [facility] TYPE CODE TESTS RESULT OUT OF RANGE REFERENCE UNITS LAB LEE([facility]) TEST NAME SANTO LAB [place]([facility]) TEST RESULT SEE COMMENTS 06/16/2024 02:04 PM Result Comment: NOTE Test Result Flag Unit RefValue Flecainide, S 0.4 mcg/mL REFERENCE VALUE 0.2 - 1.0 (Therapeutic concentration, trough value), >1.0 (Toxic concentration, trough value) ADDITIONAL INFORMATION This test was developed and its performance characteristics determined by [facility] in a manner consistent with CLIA requirements. This test has not been cleared or approved by the U.S. Food and Drug Administration. Test Performed by: [place] [address] Senior Technical Project Manager: Mino Cain Ph.D.; CLIA# [id number] BEDSIDE GLUCOSE LAB Collected: 06/15/2024 10:24 AM Status: COMPLETED Source: [facility] TYPE CODE TESTS RESULT OUT OF RANGE REFERENCE UNITS LAB BEDG([facility]) BEDSIDE GLUCOSE LAB 119 High 65-99 mg/dL MAGNESIUM Collected: 06/15/2024 10:05 AM Status: COMPLETED Source: [facility] TYPE CODE TESTS RESULT OUT OF RANGE REFERENCE UNITS LAB MG(LOINC) MAGNESIUM 1.7 Low 1.8-2.6 mg/dL Performed By: #### 70547-5 # ### [facility] ([id number]) [facility], [address] [place] [address] POTASSIUM Collected: 06/15/2024 6:59 AM S tatus: COMPLETED Source: [facility] TYPE CODE TESTS RESULT OUT OF RANGE REFERENCE UNITS LAB K(LOINC) POTASSIUM 3.8 3.5-5.0 mmol/L Performed By: #### 2823-3 ## ## [facility] ([id number]) [address] [place] [address], [address] [place] [address] BEDSIDE GLUCOSE LAB Collected: 06/15/2024 5:48 AM Status: COMPLETED Source: [facility] TYPE CODE TESTS RESULT OUT OF RANGE REFERENCE UNITS LAB BEDG(LOINC) BEDSIDE GLUCOSE LAB 91 65-99 mg/dL POTASSIUM Collected: 12:48 AM Status: COMPLETED Source: [facility] TYPE CODE TESTS RESULT OUT OF RANGE REFERENCE UNITS LAB K(LOINC) POTASSIUM 3.7 3.5-5.0 mmol/L Performed By: #### 2823-3, 1 9123-9 #### [facility] ([id number]) [address] [place] [address], [address] [address] MAGNESIUM Collected: 06/15/2024 12:48 AM Status: COMPLETED Source: [facility] TYPE [facility] TESTS RESULT OUT OF RANGE REFERENCE UNITS LAB MG(LOINC) MAGNESIUM 1.9 1.8-2.6 mg/dL Performed By: #### 2823-3, 1 9123-9 #### [facility] ([id number]) [address] [place] [address], [address] [place] [address] BEDSIDE GLUCOSE LAB Collected: 06/14/2024 7:15 PM Status: COMPLETED Source: [facility] TYPE CODE TESTS RESULT OUT OF RANGE REFERENCE UNITS LAB BEDG(LOINC) BEDSIDE GLUCOSE LAB 114 High 65-99 mg/dL POTASSIUM Collected: 06/14/2024 6:58 PM S tatus: COMPLETED Source: [facility] TYPE CODE TESTS RESULT OUT OF RANGE REFERENCE UNITS LAB K(LOINC) POTASSIUM 3.5 3.5-5.0 mmol/L Performed By: #### 2823-3, 1 9123-9 #### [facility] ([id number]) [address], [address] [place] [address] MAGNESIUM Collected: 06/14/2024 6:58 PM S tatus: COMPLETED Source: [facility] TYPE CODE TESTS RESULT OUT OF RANGE REFERENCE UNITS LAB MG(LOINC) MAGNESIUM 1.7 Low 1.8-2.6 mg/dL Performed By: #### 2823-3, 1 9123-9 #### [facility] ([id number]) [address], [address] [place] [address] BEDSIDE GLUCOSE LAB Collected: 06/14/2024 1:34 PM Status: COMPLETED Source: [facility] TYPE CODE TESTS RESULT OUT OF RANGE REFERENCE UNITS LAB BEDG([facility]) BEDSIDE GLUCOSE LAB 102 High 65-99 mg/dL BEDSIDE GLUCOSE LAB Collected: 06/14/2024 11:06 AM Status: COMPLETED Source: [facility] TYPE CODE TESTS RESULT OUT OF RANGE REFERENCE UNITS LAB BEDG([facility]) BEDSIDE GLUCOSE LAB 111 High 65-99 mg/dL BEDSIDE GLUCOSE LAB Collected: 06/14/2024 7:00 AM Status: COMPLETED Source: [facility] TYPE CODE TESTS RESULT OUT OF RANGE REFERENCE UNITS LAB BEDG([facility]) BEDSIDE GLUCOSE LAB 127 High 65-99 mg/dL BASIC METABOLIC PANL Collected: 06/14/2024 5:12 AM Status: COMPLETED Source: [facility] TYPE CODE TESTS RESULT OUT OF [...] race coefficient. Performed By: #### ABRAHAN, 1911 05- #### [facility] ([id number]) [address] [facility] [address] [place] [address] MAGNESIUM Collected: 06/14/2024 5:12 AM S tatus: COMPLETED Source: [facility] TYPE CODE TESTS RESULT OUT OF RANGE REFERENCE UNITS LAB MG(LOINC) MAGNESIUM 1.6 Low 1.8-2.6 mg/dL Performed By: #### ABRAHAN, 05-10 #### [facility] ([id number]) [address] [place] [address], [address] [address] POTASSIUM Collected: 12:14 AM Status: COMPLETED Source: [facility] TESTS RESULT OUT OF RANGE REFERENCE UNITS LAB K(LOINC) POTASSIUM 3.5 3.5-5.0 mmol/L Performed By: #### 2823-3 ## ## [facility] ([id number]) [address] [place] [address], [address] [address] BEDSIDE GLUCOSE LAB Collected: 06/13/2024 8:02 PM Status: COMPLETED Source: [facility] TYPE CODE TESTS RESULT OUT OF RANGE REFERENCE UNITS LAB BEDG(LOINC) BEDSIDE GLUCOSE LAB 100 High 65-99 mg/dL POTASSIUM Collected: 06/13/2024 6:09 PM S tatus: COMPLETED Source: [facility] TYPE CODE TESTS RESULT OUT OF RANGE REFERENCE UNITS LAB K(LOINC) POTASSIUM 3.5 3.5-5.0 mmol/L Performed By: #### 2823-3, 1 9123-9 #### [facility] ([id number]) [address] [place] [address], [address] [place] [id number] MAGNESIUM Collected: 06/13/2024 6:09 PM S tatus: COMPLETED Source: [facility] TYPE CODE TESTS RESULT OUT OF RANGE REFERENCE UNITS LAB MG(LOINC) MAGNESIUM 2.1 1.8-2.6 mg/dL Performed By: #### 2823-3, 1 9123-9 #### [facility] ([id number]) [address], [address] [place] [address] BEDSIDE GLUCOSE LAB Collected: 06/13/2024 2:55 PM Status: COMPLETED Source: [facility] TYPE CODE TESTS RESULT OUT OF RANGE REFERENCE UNITS LAB BEDG(LOINC) BEDSIDE GLUCOSE LAB 126 High 65-99 mg/dL BEDSIDE GLUCOSE LAB Collected: 06/13/2024 10:01 AM Status: COMPLETED Source: [facility] TYPE CODE TESTS RESULT OUT OF RANGE REFERENCE UNITS LAB BEDG(LOINC) BEDSIDE GLUCOSE LAB 123 High 65-99 mg/dL BASIC METABOLIC PANL Collected: 06/13/2024 6:54 AM Status: COMPLETED Source: [facility] TYPE CODE TESTS RESULT OUT OF [...] use a race coefficient. Performed By: #### BMP, 1912 3-9 #### [facility] ([id number]) [address], [address] [place] [address] MAGNESIUM Collected: 06/13/2024 6:54 AM S tatus: COMPLETED Source: [facility] TYPE CODE TESTS RESULT OUT OF RANGE REFERENCE UNITS LAB MG(LOINC) MAGNESIUM 1.5 Low 1.8-2.6 mg/dL Performed By: #### BMP, 2 3-9 #### [facility] ([id number]) [address] [place] [address], [address] [place] [address] BEDSIDE GLUCOSE LAB Collected: 06/13/2024 5:54 AM Status: COMPLETED Source: [facility] TYPE CODE TESTS RESULT OUT OF RANGE REFERENCE UNITS LAB BEDG(LOINC) BEDSIDE GLUCOSE LAB 94 65-99 mg/dL DIGOXIN Collected: 06/12/2024 7:05 PM S tatus: COMPLETED Source: [facility] TYPE [facility] [place] TESTS RESULT OUT OF RANGE REFERENCE UNITS LAB DIGO(LOINC) DIGOXIN 0.4 Low 0.8-2.0 ng/mL Performed By: #### 94038-7, 2823-3, 29080-2 #### [facility] ([id number]) [address] [place] [address], [address] [address] POTASSIUM Collected: 06/12/2024 7:05 PM S tatus: COMPLETED Source: [facility] TYPE [facility] [place] TESTS RESULT OUT OF RANGE REFERENCE UNITS LAB K(LOINC) POTASSIUM 3.4 Low 3.5-5.0 mmol/L Performed By: #### 32436-6, 2823-3, 71233-8 #### [facility] ([id number]) [address] [place] [address], [address] [place] [address] MAGNESIUM Collected: 06/12/2024 7:05 PM S tatus: COMPLETED Source: [facility] TYPE CODE TESTS RESULT OUT OF RANGE REFERENCE UNITS LAB MG(LOINC) MAGNESIUM 1.9 1.8-2.6 mg/dL Performed By: #### 97444-0, 2823-3, 97473-8 #### [facility] ([id number]) [address] [place] [address], [address] [place] [address] BEDSIDE GLUCOSE LAB Collected: 06/12/2024 6:30 PM Status: COMPLETED Source: [facility] TYPE CODE TESTS RESULT OUT OF RANGE REFERENCE UNITS LAB BEDG(LOINC) BEDSIDE GLUCOSE LAB 118 High 65-99 mg/dL BEDSIDE GLUCOSE LAB Collected: 06/12/2024 1:09 PM Status: COMPLETED Source: [facility] TYPE CODE TESTS RESULT OUT OF RANGE REFERENCE UNITS LAB BEDG(LOINC) BEDSIDE GLUCOSE LAB 114 High 65-99 mg/dL 3RD HR GTT Collected: 06/12/2024 10:08 AM Status: COMPLETED Source: [facility] TYPE CODE TESTS RESULT OUT OF RANGE REFERENCE UNITS LAB GLU3(LOINC) 3RD HR GTT 123 High 65-99 mg/dL Performed By: #### 86768-3 # ### [facility] ([id number]) [facility], [address] [place] [address] 2ND HR GTT 100GM LOAD Collected: 06/12/2024 8:4 6 AM Status: COMPLETED Source: [facility] TYPE CODE TESTS RESULT OUT OF [...] >=140mg/dL Performed By: #### 1514-9 ## ## [facility] ([id number]) [address] [place] [address], [address] [place] [address] 1ST HR GTT Collected: 06/12/2024 7:51 AM S tatus: COMPLETED Source: [facility] TYPE CODE TESTS RESULT OUT OF RANGE REFERENCE UNITS LAB GLU1(LOINC) 1ST HR GTT 187 High 120-170 mg/dL Performed By: #### 66603-7 # ### [facility] ([id number]) [address], [address] [place] [address] BEDSIDE GLUCOSE LAB Collected: 06/12/2024 6:51 AM Status: COMPLETED Source: [facility] TYPE CODE TESTS RESULT OUT OF RANGE REFERENCE UNITS LAB BEDG(LOINC) BEDSIDE GLUCOSE LAB 102 High 65-99 mg/dL FASTING GTT Collected: 06/12/2024 6:51 AM S tatus: COMPLETED Source: [facility] TYPE CODE TESTS RESULT OUT OF RANGE REFERENCE UNITS LAB GLUF(LOINC) FASTING GTT 95 65-99 mg/dL Performed By: #### 1558-6 ## ## [facility] ([id number]) [address] [place] [address], [address] [place] [address] BASIC METABOLIC PANL Collected: 06/12/2024 6:51 AM Status: COMPLETED Source: [facility] CODE TESTS RESULT OUT OF RANGE [...] use a race coefficient. Performed By: #### BMP, 1912 3-9 #### [facility] ([id number]) [address] [place] [address], [address] [place] [address] MAGNESIUM Collected: 06/12/2024 6:51 AM S tatus: COMPLETED Source: [facility] TYPE CODE TESTS RESULT OUT OF RANGE REFERENCE UNITS LAB MG(LOINC) MAGNESIUM 1.4 Low 1.8-2.6 mg/dL Performed By: #### BMP, 1912 3-9 #### [facility] ([id number]) [address], [address] [place] [address] DRUG SCREEN, URINE Collected: 06/11/2024 5:00 PM Sta tus: COMPLETED Source: [facility] TYPE CODE TESTS RESULT OUT OF [...] of patients. Performed By: #### DSU #### [facility] ([id number]) [address] [place] [address] CBC AND AUTO DIFF Collected: 06/11/2024 3:22 PM Status: COMPLETED Source: [facility] TYPE CODE TESTS RESULT OUT OF [...] 0.0 0.0-0.2 X10E9/L Performed By: #### CBCA, CMP , 40162-3, 80476-1, 2777-1, 06083-3 #### [facility] ([id number]) [address], [address] [place] [address] COMPREHENSIVE METABOLIC PANEL Collected: 2024 3:22 PM Status: COMPLETED Source: [facility] TYPE CODE TESTS RESULT OUT OF [...] use a race coefficient. Performed By: #### CBCA, CMP , 98893-0, 11692-2, 2777-1, 76599-4 #### [facility] ([id number]) [address], [address] [place] [address] MAGNESIUM Collected: 06/11/2024 3:22 PM S tatus: COMPLETED Source: [facility] TYPE CODE TESTS RESULT OUT OF RANGE REFERENCE UNITS LAB MG(LOINC) MAGNESIUM 1.7 Low 1.8-2.6 mg/dL Performed By: #### CBCA, CMP , 89207-8, 96310-2, 2777-1, 30532-0 #### [facility] ([id number]) [address] [place] [address], [address] [address] VITAMIN D 25 HYD TOT Collected: 06/11/2024 3:22 PM Status: COMPLETED Source: [facility] TYPE CODE TESTS RESULT OUT OF RANGE REFERENCE UNITS LAB VITD([facility]) VITAMIN D 25 HYD TOT 23.3 Low 30-100 ng/mL Result Comment: Vitamin D status 25 [place] Vitamin D Deficiency <20 ng/mL Insufficiency 20-29 ng/mL Sufficiency 30-100 ng/mL Toxicity >100 ng/mL NOTE: A pediatric reference range has not been established by the parasitologist of this kit. The [place] [employer] recommends a Vitamin D level of = or >20ng/mL in infants and children. Performed By: #### SALASA, CMP , 36095-2, 56440-9, 2777-1, 50352-2 #### [facility] ([id number]) [address] [place] [address], [address] [address] PHOSPHORUS Collected: 06/11/2024 3:22 PM S tatus: COMPLETED Source: [facility] TYPE CODE TESTS RESULT OUT OF RANGE REFERENCE UNITS LAB PHOS([facility]) PHOSPHORUS 4.0 2.4-4.9 mg/dL Performed By: #### CBCA, CMP , 33478-8, 07141-9, 2777-1, 19619-5 #### [facility] ([id number]) [address] [place] [address], [address] [address] SYPHILIS TOTAL Collected: 06/11/2024 3:22 PM S tatus: COMPLETED Source: [facility] TYPE CODE TESTS RESULT OUT OF RANGE REFERENCE UNITS LAB SYPHT(LOINC) Syphilis Total <0.2 0.0-0.8 AI Result Comment: NON REACTIVE No serologic evidence of infection to Treponema pallidum (syphilis). Repeat testing may be considered in patients with suspected acute or primary syphilis in 2 to 4 weeks. Performed By: #### CBCA, [facility] , 99152-1, 93630-2, 2777-1, 73985-3 #### [facility] ([id number]) [address], [address] [place] [address] US OB 14+ WEEKS ANATOMY SCAN Observed: 0 05/11/2024 2:18 PM Status: F Source: [facility] EPIC Order Comment: US OB [...] II, MD, PHD at 13-May-2024 08:36:44 AM [facility] ALLERGIES DATE TYPE / CODE NAME / CODE REACTION SEVERITY SOURCE Drug Class/139313308(EZ2CAD CT) NO KNOWN ALLERGIES [facility] ENCOUNTERS ADMIT/DISCHARGE ACCOUNT NUMBER ADMITTING ENCOUNTER CLASS LOCATION SOURCE 07/24/2024/07/25/19 [id number] Ambulatory Buildin 19 [facility] 07/17/2024/07/18/19 25 [id number] Ambulatory Building:PF M_CV [facility] 07/17/2024/07/18/19 25 [id number] Ambulatory Building:PT H_[facility] 07/17/2024/07/18/19 25 [id number] Ambulatory Buildin 94 [facility] 07/15/2024/07/16/19 25 [id number] Ambulatory Building:NO MS BCP OB [facility] 07/10/2024/07/11/19 25 [id number] Ambulatory Buildin 19 [facility] 07/06/2024/07/07/19 25 [id number] Ambulatory Buildin 94 [facility] 06/30/2024/07/01/19 25 [id number] Ambulatory Building:NO MS BCP OB [facility] 06/24/2024/06/29/19 25 [id number] [facility] 06/24/2024/06/25/19 25 [id number] Inpatient Encounter Building:PT [facility] 06/23/2024/06/24/19 25 [id number] Inpatient Encounter Building:PT [facility] 06/22/2024/06/29/19 25 [id number] Inpatient Encounter Building:PT [facility] 06/22/2024/06/23/19 25 [id number] Inpatient Encounter Building:PT [facility] 06/21/2024/06/22/19 25 [id number] Inpatient Encounter Building:PT [facility] 06/20/2024/06/21/19 25 [id number] Inpatient Encounter Building:PT [facility] 06/19/2024/06/29/19 25 [id number] Inpatient Encounter Building:PT [facility] 06/19/2024/06/20/19 25 [id number] Inpatient Encounter Building:PT [facility] 06/18/2024/06/19/19 25 [id number] Inpatient Encounter Building:PT [facility] 06/17/2024/06/18/19 25 [id number] Inpatient Encounter Building:PT [facility] 06/16/2024/06/17/19 25 [id number] Inpatient Encounter Building:PT [facility] 06/15/2024/06/24/19 25 [id number] Inpatient Encounter Building:PT [facility] 06/15/2024/06/16/19 25 [id number] Inpatient Encounter Building:PT [facility] 06/12/2024/06/24/19 25 [id number] Inpatient Encounter Building:PT [place] 06/11/2024/06/24/19 25 [id number] Inpatient Encounter Building:PT [facility] 06/11/2024/06/29/19 25 [id number] VANESA SEGOVIA Inpatient Encounter Building:PT H_LABRRoom: [facility] CBed: 01 [facility] 06/11/2024/06/12/19 [id number] Ambulatory Buildin 94 [facility] 06/11/2024/06/12/19 [id number] Ambulatory Building:PT H_MARIANA [facility] 06/10/2024/06/11/19 [id number] Ambulatory Building:NO MS BCP OB [facility] EPIC 05/11/2024/05/12/19 25 [id number] Ambulatory Building:NO MS BCP OB [facility]IC 05/11/2024/05/12/19 25 [id number] Ambulatory Building:NO MS BCP OB [facility] EPIC 04/15/2024/04/15/19 25 [id number] Ambulatory Building:NO MS BCP OB [facility] EPIC 03/16/2024/03/16/19 25 [id number] Ambulatory Building:NO MS BCP OB [facility] EPIC 02/11/2024/02/11/20 24 [id number] Ambulatory Building:NO MS BCP OB [facility] EPIC FUNCTIONAL STATUS No Functional Status Records Found EQUIPMENT No Equipment Records Found PAYERS ENCOUNTER GUARANTOR PAYER SUBSCRIBER SOURCE 07/24/2024 NISHA SAROJ PERRYDOB: [place], [place] [address]Yuu: () Primary Insurance:[employer] MEDICA[employer] HMOPolicy Number: [id number] Date:2024-06-11 NISHA KYLE PERRYDOB: [id number] [place], [place] [address]Bux: () [facility] 07/17/2024 NISHA SAROJ PERRYDOB: [place], [place] [address]Bjy: () Primary Insurance:[employer] MEDICAID HMOPolicy Number: [id number] Date:2024-06-11 NISHA KYLE PERRYDOB: [id number] [place], [place] [address]Qsh: () [facility] 07/17/2024 NISHA KYLE PERRYDOB: [place] [address] [address]Cuu: (HP) Primary Insurance:[employer] MEDICA[employer] HMOPolicy Number: [id number] Date:2024-06-11 NISHA KYLE PERRYDOB: [id number] [facility] [place] [place] [address]Pyv: (HP) [facility] 07/17/2024 NISHA KYLE PERRYDOB: [facility] [place] [address]Euq: (HP) Primary Insurance:[employer]ICA[employer] HMOPolicy Number: [id number] Date:2024-06-11 NISHA KYLE PERRYDOB: [id number] [facility] [place] [address]Sze: (HP) [facility] 07/15/2024 NISHA Lares PERRYDOB: [facility] [place] [place] [address]Zpo: (HP) Primary Insurance:[employer] MEDICAIDPolicy Number: [id number] Date:2024-02-02 NISHA Lares PERRYDOB: [id number] [facility] [place] [address] [facility] 07/10/2024 NISHA KYLE PERRYDOB: [facility] [place] [place] [address]Rah: (HP) Primary Insurance:[employer] MEDICA[employer] HMOPolicy Number: [id number] Date:2024-06-11 NISHA KYLE PERRYDOB: [id number] [facility] [place] [address]Zkx: (HP) [facility] 07/06/2024 NISHA KYLE PERRYDOB: [place] [address]Igc: (HP) Primary Insurance:[employer]ICA[employer] HMOPolicy Number: [id number] Date:2024-06-11 NISHA KYLE PERRYDOB: [id number] [place], [place] [address]Gkw: (HP) [facility] 06/30/2024 NISHA Lares PERRYDOB: [place], [place] [address]Lgl: (HP) Primary Insurance:[employer] MEDICAIDPolicy Number: [id number] Date:2024-02-02 NISHA L PERRYDOB: [id number] [place] [address] [facility] 06/24/2024 NISHA KYLE PERRYDOB: [place] [address]Zzw: (HP) Primary Insurance:[employer] HMOPolicy Number: [id number] Date:2024-06-11 NISHA KYLE PERRYDOB: [id number] [place], [place] [address]Yxo: (HP) [facility] 06/24/2024 NISHA KYLE PERRYDOB: [place], [place] [address]Zoo: (HP) Primary Insurance:[employer]ICA[employer] HMOPolicy Number: [id number] Date:2024-06-11 NISHA KYLE PERRYDOB: [id number] [place], [place] [address]Gre: (HP) [facility] 06/23/2024 NISHA SAROJ PERRYDOB: [place] [address]Vhd: (HP) Primary Insurance:[employer] HMOPolicy Number: [id number] Date:2024-06-11 NISHA KYLE PERRYDOB: [id number] [place], [place] [address]Uhc: (HP) [facility] 06/22/2024 NISHA KYLE PERRYDOB: [place] [address]Ubv: (HP) Primary Insurance:[employer] HMOPolicy Number: [id number] Date:2024-06-11 NISHA KYLE PERRYDOB: [id number] [place], [place] [address]Ssb: (HP) [facility] 06/22/2024 NISHA KYLE PERRYDOB: [place], [place] [address]Yhc: (HP) Primary Insurance:[employer] HMOPolicy Number: [id number] Date:2024-06-11 NISHA KYLE PERRYDOB: [id number] [place], [place] [address]Tga: (HP) [facility] 06/21/2024 NISHA KYLE PERRYDOB: [place] [address]Hkl: (HP) Primary Insurance:[employer] HMOPolicy Number: [id number] Date:2024-06-11 NISHA KYLE PERRYDOB: [id number] [place] [address]Lxt: () [facility] 06/20/2024 NISHA KYLE PERRYDOB: [place] [address] [address]Wol: (HP) Primary Insurance:[employer] HMOPolicy Number: [id number] Date:2024-06-11 NISHA KYLE PERRYDOB: [id number] [place], [place] [address]Jft: () [facility] 06/19/2024 NISHA KYLE PERRYDOB: [place], [place] [address]Zlw: (HP) Primary Insurance:[employer] HMOPolicy Number: [id number] Date:2024-06-11 NISHA KYLE PERRYDOB: [id number] [place], [place] [address]Rmx: () [facility] 06/19/2024 NISHA KYLE PERRYDOB: [place] [address], [place] [address]Jev: () Primary Insurance:[employer] HMOPolicy Number: [id number] Date:2024-06-11 NISHA KYLE PERRYDOB: [id number] [place], [place] [address]Dyt: () [facility] 06/18/2024 NISHA KYLE PERRYDOB: [place] [address] [address]Azc: () Primary Insurance:[employer] HMOPolicy Number: [id number] Date:2024-06-11 NISHA KYLE PERRYDOB: [id number] [place], [place] [address]Xof: () [facility] 06/17/2024 NISHA KYLE PERRYDOB: [place] [address] [address]Clb: () Primary Insurance:[employer] HMOPolicy Number: [id number] Date:2024-06-11 NISHA KYLE PERRYDOB: [id number] [place], [place] [address]Jdk: (HP) [facility] 06/16/2024 NISHA KYLE PERRYDOB: [place] [address], [place] [address]Bpn: (HP) Primary Insurance:[employer] HMOPolicy Number: [id number] Date:2024-06-11 NISHA KYLE PERRYDOB: [id number] [place], [place] [address]Ljj: (HP) [facility] 06/15/2024 NISHA KYLE PERRYDOB: [place] [address]Rpv: (HP) Primary Insurance:[employer] HMOPolicy Number: [id number] Date:2024-06-11 NISHA KYLE PERRYDOB: [id number] [place], [place] [address]Fzv: (HP) [facility] 06/15/2024 NISHA YKLE PERRYDOB: [place] [address], [place] [address]Ril: (HP) Primary Insurance:[employer] HMOPolicy Number: [id number] Date:2024-06-11 NISHA KYLE PERRYDOB: [id number] [place], [place] [address]Tpj: (HP) [facility] 06/12/2024 NISHA KYLE PERRYDOB: [place] [address] [address]Xki: (HP) Primary Insurance:[employer] HMOPolicy Number: [id number] Date:2024-06-11 NISHA KYLE PERRYDOB: [id number] [place] [address]Arr: (HP) [facility] 06/11/2024 NISHA KYLE PERRYDOB: [place] [address] [address]Hhh: (HP) Primary Insurance:[employer] HMOPolicy Number: [id number] Date:2024-06-11 NISHA KYLE PERRYDOB: [id number] [place] [address]Ykw: (HP) [facility] 06/11/2024 NISHA KYLE PERRYDOB: [place] [address] [address]Jsk: (HP) Primary Insurance:[employer] HMOPolicy Number: [id number] Date:2024-06-11 NISHA KYLE PERRYDOB: [id number] [place] [address]Sqx: (HP) [facility] 06/11/2024 NISHA KYLE PERRYDOB: [place] [address]Ltw: (HP) Primary Insurance:[employer] HMOPolicy Number: [id number] Date:2024-06-11 NISHA KYLE PERRYDOB: [id number] [place], [place] [address]Lqs: (HP) [facility] 06/11/2024 NISHA KYLE PERRYDOB: [place] [address] [address]Nta: (HP) Primary Insurance:[employer] HMOPolicy Number: [id number] Date:2024-06-11 NISHA SAROJ PERRYDOB: [id number] [place], [place] [address]Tqr: () [facility] 06/10/2024 NISHA L PERRYDOB: [place] [address]Vuj: (HP) Primary Insurance:[employer] MEDICAIDPolicy Number: [id number] Date:2024-02-02 NISHA L PERRYDOB: [id number] [place] [address] [facility] EPIC 05/11/2024 NISHA L PERRYDOB: [place], [place] [address]Gda: (HP) Primary Insurance:[employer] MEDICAIDPolicy Number: [id number] Date:2024-02-02 NISHA L PERRYDOB: [id number] [place] [address] [facility] EPIC 05/11/2024 NISHA L PERRYDOB: [place] [address]Hgk: (HP) Primary Insurance:[employer] MEDICAIDPolicy Number: [id number] Date:2024-02-02 NISHA L PERRYDOB: [id number] [place] [address] [facility] EPIC 04/15/2024 NISHA L PERRYDOB: [place] [address] [address]Euf: (HP) Primary Insurance:[employer] MEDICAIDPolicy Number: [id number] Date:2024-02-02 NISHA L PERRYDOB: [id number] [place] [address] [facility] EPIC 03/16/2024 NISHA L PERRYDOB: [place] [address] [address]Toy: () Primary Insurance:[employer] MEDICAIDPolicy Number: [id number] Date:2024-02-02 NISHA DURONB: [id number] [place] [address] [facility] 02/11/2024 NISHA DURONB: [place], [place] [address]Udl: () Primary Insurance[place]: [id number] Date:2024-01-03 NISHA DURONB: [id number] [place] [address] [facility] EPIC SOCIAL HISTORY No Social History Records Found FAMILY HISTORY No Family History Records Found ADVANCE DIRECTIVES No Advanced Directives Records Found INFORMATION SOURCE DATE CREATED AUTHOR AUTHOR'S DIONY ATION 07/27/2024 [place]
--- OUTSIDE RECORDS SUMMARY | 2024-07-24 08:30 | XMS_ITS | Encounter Summary ---
Author Organization [employer] Address [facility] [place]-[id number] [address] [place] [address] Care Team Providers Care Order Department Supervisor Name Role Phone Sarah Queen HOGSHEAD INSPECTOR-RECEPTIONIST TELEPHONE OPERATOR Primary Care Provider + Reason for Visit * Reason Comments High Risk Gestation Encounter Details Date Type Department Care Team (Late st Contact Info) Description 07/24/2024 8:30 AM EDT [facility] [address] [place] [phone] Margoth Tatum MD [address] [facility] [place] [phone] GA: 34w0d Social History Tobacco Use Types Packs/Day Years [...] got money to buy more. Never True 07/24/2024 Within the past 12 months th e food we bought just didn't last and we didn't have money to get more. Never True 07/24/2024 Estimated Date of Delivery Comme nts Yes 09/04/2024 Based on Ultraso und Sex and Gender Information Value Date Recorded Sex Assigned at Not on file Legal Sex Female 11:54 AM EDT Gender Identity Not on file Sexual Orientation Not on file documented as of this encounter Last Filed Vital Signs Vital Sign Reading Time Taken Comments Blood Pressure 100/70 07/24/2024 8:32 AM EDT Pulse - - Temperature - - Respiratory Rate - - Oxygen Saturation - - Inhaled Oxygen Concentration - - Weight 90 kg (198 lb 6.4 oz) 07/24/2024 8:32 AM EDT Height - - Body Mass Index 35.14 07/17/2024 1:48 PM EDT documented in this encounter Progress Notes * Belia Ibarra DO - 07/24/2024 8:30 AM EDT [facility] High Risk Obstetrics Visit Return OB CC: Scheduled OB Visit None Problem List Cardiovascular and Mediastinum Supraventricular tachycardia of fetus affecting management of - Primary Overview S/p hospital admission end of June Continue sotalol and digoxin MFM appointment July 17 with growth US Rec'd ANCS 06/16, 06/17/24 Endocrine Gestational diabetes mellitus (GDM) in third trimester Genitourinary Intrauterine Overview First trimester Cell free DNA: low risk per patient Carrier screening 28 week labs CBC, HIV, Syphilis completed: yes Rh status: positive Third trimester Tdap: will do with regular OBGYN GBS at 36 weeks Mode of delivery: testing: Saturday/ NST/ DVP at [place] Patient reports doing well today and endorses good FM. She states that her blood glucose levels have been well controlled with fasting values 85-90 and postprandial values in the 110s. Denies Bleeding, SROM, contractions Denies persistent N/V, constipation, heartburn, hematuria, dysuria. Control Method plan: undecided Problem List reviewed and updated PMH/PSH/FH/Soc/Meds/Allergies Reviewed PE Vitals: 07/24/24 0832 BP: 100/70 Weight: 90 kg (198 lb 6.4 oz) Alert, NAD ABdomen: Soft, NT, nondistended FHTs 120 bpm Wt Readings from Last 3 Encounters: 07/24/24 90 kg (198 lb 6.4 oz) 07/17/24 89.5 kg (197 lb 5 oz) 07/10/24 89.2 kg (196 lb 11.2 oz) See flowsheet Imp/Plan at 34w0d Patient Active Problem List Diagnosis Intrauterine Supraventricular tachycardia of fetus affecting management of Excessive growth affecting management of mother in second trimester, antepartum Gestational diabetes mellitus (GDM) in third trimester SVT - Continue sotalol and digoxin - Continue twice weekly testing in [place] - Serial growth scans (next 08/07/24) GDMA2 - Declining insulin management - Macrosomic growth pattern - Plan for repeat growth US 3 weeks from last (scheduled 08/07/24) - Continue to monitor BG and follow with MFM care - labor precautions & kick counts reviewed - Planning for delivery at 37 weeks RTC in 2 weeks via HROB Belia Ibarra DO Store Clerk Checker Resident PGY-4 * Margoth Tatum MD - 07/24/2024 8:30 AM EDT Attending Attestation: I saw the patient. I participated and was physically present during the critical/connolly portions of the service. I was directly involved in the management and treatment plan of the patient. I reviewed the resident's note. Additional Notes/Findings: Return OB Good FM. Denies Bleeding, SROM, contractions S/p admission end of June for SVT. Released home on sotalol and digoxin Is compliant with sotalol and digoxin Twice weekly testing being done at [place] with Dr. Fierro Gestational DM Meds: none Glucose in goal Problem List reviewed and updated PE BP 100/70 Wt 90 kg (198 lb 6.4 oz) LMP 12/07/2023 BMI 35.14 kg/m?? Alert, NAD See flowsheet Imp/Plan at 33w6d Patient Active Problem List Diagnosis Intrauterine Supraventricular tachycardia of fetus affecting management of Excessive growth affecting management of mother in second trimester, antepartum Gestational diabetes mellitus (GDM) in third trimester care labor warnings/ Movement discussed SVT Twice weekly testing--being done at [place] Serial growth scans--scheduled for 08/07/24 Deliver at 37 weeks Gestational Diab, A1 with good control Followed by [facility] RTC 2 weeks via HROB Note to patient: The Century Cures Act [...] the clinical opinion of the practitioner. * Salena Parekh RN - 07/24/2024 8:30 AM EDT Urine [id number] * Marie Luu LPN - 07/24/2024 8:30 AM EDT Pt here for 34w0d HR visit States feeiling good Feeling good movement No leaking of fluid or blood MF told pt to see us for an actual due date / in order to plan 37 week delivery Glucose logs from sensor going to [facility] documented in this encounter Plan of Treatment Upcoming Encounters Date Type Department Care Team (Late st Contact Info) Description 08/04/2024 9:00 AM EDT [facility] [address] [place] [phone] Shira Staples MD [address] [facility] [place] [address] 08/07/2024 3:30 PM EDT Appointment [facility] - [facility] US Imaging [address] [place] [address] documented as of this encounter Visit Diagnoses Diagnosis Supraventricular tachycardia of fetus affecting management of - Primary Gestational diabetes mellitus (GDM) in third trimester, gestational diabetes method of control unspecified Intrauterine documented in this encounter Additional Health Concerns Assessment Noted Time PHQ-9 Depression Total Score: 0 05/29/19 23 11:03 AM EDT documented as of this encounter Care Teams Order Department Supervisor Relationship Specialty Start Date End Date Sarah Queen APRN-RECEPTIONIST TELEPHONE OPERATOR [address] [place] [address] PCP - General Internal Medicine 09/03/23 documented as of this encounter
--- OUTSIDE RECORDS SUMMARY | 2024-07-27 18:12 | XMS_ITS | Encounter Summary ---
Author Organization [facility] Address [address] [facility] [address] Care Team Providers Care Automation Analyst Name Role Phone Terrence Mcintyre MD Primary Care Provider + [phone] Encounter Details Date Type Department Care Team (Late st Contact Info) Description 07/06/2024 Abstract [facility] [address] [facility] [place] [address] Ronald Fierro DO [address] [place] [address] Dr Ralph Dominguez, [facility] Social History Tobacco Use Types Packs/Day Years Used Date Smoking Tobacco: Never Assessed Estimated Date of Delivery Comme nts Yes 09/04/2024 Based on Ultraso und Sex and Gender Information Value Date Recorded Sex Assigned at Not on file Legal Sex Female 11:21 PM EDT Gender Identity Not on file Sexual Orientation Not on file documented as of this encounter Plan of Treatment Upcoming Encounters Date Type Department Care Team (Late st Contact Info) Description 07/29/2024 2:50 PM EDT Routine [facility] [address] [facility] [place] [address] Chelsea Carson PA [address] [facility] [place] [address] documented as of this encounter Visit Diagnoses Not on filedocumented in this encounter Care Teams Automation Analyst Relationship Specialty Start Date End Date Trerence Mcintyre MD PCP - General Family Medicine 02/11/24 documented as of this encounter
--- OUTSIDE RECORDS SUMMARY | 2024-07-27 18:12 | XMS_ITS | Encounter Summary ---
Author Organization [facility] Address [address] [facility] [place] [address] Care Team Providers Care Bottle Sorter Name Role Phone Terrence Mcintyre MD Primary Care Provider + [phone] Encounter Details Date Type Department Care Team (Late st Contact Info) Description 07/22/2024 Abstract [facility] OB [address] [facility] [place] [address] Ronald Fierro DO [address] [place] [address] Dr Ralph Dominguez, [facility]11 Social History Tobacco Use Types Packs/Day Years [...] Description 07/29/2024 2:50 PM EDT Routine [facility] OB [address] [facility] [place] [address] Chelsea Carson PA [address] [facility] [place] [address] documented as of this encounter Visit Diagnoses Not on filedocumented in this encounter Care Teams Bottle Sorter Relationship Specialty Start Date End Date Terrence Mcintyre MD PCP - General Family Medicine 02/11/24 documented as of this encounter
--- OUTSIDE RECORDS SUMMARY | 2024-07-27 18:12 | XMS_ITS | Encounter Summary ---
Author Organization [facility] Address [address] [facility] [place] [address] Care Team Providers Care Sewer Line Repairer Name Role Phone Terrence Mcintyre MD Primary Care Provider + [phone] Encounter Details Date Type Department Care Team (Late st Contact Info) Description 07/20/2024 Abstract [facility] OB [address] [facility] [place] [address] Ronald Fierro DO [address] [place] [address] Dr Ralph Dominguez, [facility]11 Social History Tobacco Use Types Packs/Day Years [...] Description 07/29/2024 2:50 PM EDT Routine [facility] OB [address] [facility] [place] [address] Chelsea Carson PA [address] [facility] [place] [address] documented as of this encounter Visit Diagnoses Not on filedocumented in this encounter Care Teams Sewer Line Repairer Relationship Specialty Start Date End Date Terrence Mcintyre MD PCP - General Family Medicine 02/11/24 documented as of this encounter
--- OUTSIDE RECORDS SUMMARY | 2024-07-27 18:12 | XMS_ITS | Encounter Summary ---
Author Organization [facility] Address [address] [facility] [place] [address] Care Team Providers Care Channeler Outsole Name Role Phone Terrence Mcintyre MD Primary Care Provider + [phone] Encounter Details Date Type Department Care Team (Late Contact Info) Description 07/15/2024 Bamboo flowsheet [facility] [address] [facility] [place] [address] Brandi Baer NP [address] [place] [address] [place] [address] Social History Tobacco Use Types Packs/Day Years [...] Encounters Date Type Department Care Team (Late Contact Info) Description 07/29/2024 2:50 PM EDT Routine [facility] [address] [facility] [place] [address] Chelsea Carson PA [address] [facility] [address] [place], [facility] documented as of this encounter Visit Diagnoses Not on filedocumented in this encounter Care Teams Channeler Outsole Relationship Specialty Start Date End Date Terrence Mcintyre MD PCP - General Family Medicine 02/11/24 documented as of this encounter
--- OUTSIDE RECORDS SUMMARY | 2024-07-27 18:12 | XMS_ITS | Encounter Summary ---
Author Organization [facility] Address [address] [place] [address] Care Team Providers Care Automated Process Operator Name Role Phone Terrence Mcintyre MD Primary Care Provider + [phone] Encounter Details Date Type Department Care Team (Late Contact Info) Description 06/30/2024 Community Orders [facility] [address] [place] [address] [place] [id number] Ronald Fierro DO [address] [facility] [address] Ralph Dominguez, [facility]11 Social History Tobacco Use Types Packs/Day [...] EDT Routine [facility] [address] [facility] [place] [address] Chelsea Carson PA [address] [place] [address] Dr [place], [place] [address] documented as of this encounter Visit Diagnoses Not on filedocumented in this encounter Care Teams Automated Process Operator Relationship Specialty Start Date End Date Terrence Mcintyre MD PCP - General Family Medicine 02/11/24 documented as of this encounter
--- OUTSIDE RECORDS SUMMARY | 2024-07-27 18:12 | XMS_ITS | Encounter Summary ---
Author Organization [facility] Address [address] [place] [address] Care Team Providers Care Chiropractic Care Name Role Phone Terrence Ventura MD Primary Care Provider + [phone] Encounter Details Date Type Department Care Team (Late st Contact Info) Description 07/23/2024 Clinisync Result Encounter [facility] External Department Unsolicited Phil Fierro DO [address] [facility] [address] Ralph Dominguez, [facility]11 Social History Tobacco Use Types Packs/Day [...] PM EDT Routine [facility] [address] [facility] [place] [phone] Chelsea Carson PA [address] [facility] [address] [place], [facility]11 documented as of this encounter Procedures Procedure Name Priority Date/Time Associated Diagnosis Comments US OB BPP W NON-STRESS 07/23/2024 7:52 PM EDT documented in this encounter Results * US OB BPP W NON-STRESS (07/23/2024 7:52 PM EDT) Anatomical Region Laterality Modality Other 07/23/2024 7:52 PM EDT Narrative 07/23/2024 7:55 PM EDT [address] [address] Ultrasound Report Signed Patient: NISHA FAJARDO MR#: [id number] : 1995 Acct:[id number] Age/Sex: 28 / F ADM Date: 07/23/24 Loc: [facility] 250-[address]: Phil Fierro D.O. Ordering Physician: Phil Fierro D.O. Date of Service: 07/23/24 Procedure(s): US OB BPP w non-stress Accession Number(s): [id number] cc: TERRENCE VENTURA ; Phil Fierro D.O. [address] [address] Patient Name: NISHA FAJARDO MRN: [facility]:[id number] date: 1995 Sex: F Assigned Patient Location: [facility] Current Patient Location: [facility] Accession/Order Number: [id number] Exam Date: 07/23/2024 19:51 Report Date: 07/23/2024 19:52 At the request of: PHIL FIERRO DO Procedure: US OB BPP w non-stress Ultrasound biophysical profile HISTORY: Polyhydramnios There is adequate breathing movement, gross body movement, tone and amniotic fluid volume for total score of 8 out of 8. The amniotic fluid index is 18.8 cm within normal limits. The heart rate 125 bpm. US/US OB BPP w non-stress IMPRESSION: Adequate ultrasound biophysical profile Impression dictated by: Neo Buck M.D. 07/23/2024 7:52 PM Dictation Location: [place] [address] Electronically authenticated by: [id number] Y Date: 07/23/2024 19:52 Dictated By: Neo Buck D.O. Signed By: 07/23/241954 DD/ 51 TD/TT: Progressive Care Unit Registered Nurse: Procedure Note Radiology, Radiologist, - 07/24/2024 [facility] [place] [id number] Ultrasound Report Signed Patient: NISHA FAJARDO LMR#: [id number] : 1995Acct:[id number] Age/Sex: 28 / FADM Date: 07/23/24 Loc: [facility] 250-[address]: Phil Fierro D.O. Ordering Physician: Phil Fierro D.O. Date of Service: 07/23/24 Procedure(s): US OB BPP w non-stress Accession Number(s): [id number] cc: TERRENCE VENTURA ; Phil Fierro D.O. [facility] [place] [id number] Patient Name: NISHA FAJARDO MRN: [id number] date: 1995 Sex: F Assigned Patient Location: [facility] Current Patient Location: [facility] Accession/Order Number: [id number] Exam Date: 07/23/2024 19:51 Report Date: 07/23/2024 19:52 At the request of: PHIL FIERRO DO Procedure: US OB BPP w non-stress Ultrasound biophysical profile HISTORY: Polyhydramnios There is adequate breathing movement, gross body movement, fetaltone and amniotic fluid volume for total score of 8 out of 8. The amnioticfluid index is 18.8 cm within normal limits. The heart rate 125 bpm. US/US OB BPP w non-stress IMPRESSION: Adequate ultrasound biophysical profile Impression dictated by: Neo Buck M.D. 07/23/2024 7:52 PM Dictation Location: [place] [address] Electronically authenticated by: [id number] Y Date: 9:52 Dictated By: Neo Buck D.O. Signed By:07/23/241954 DD/ 51 TD/TT: Progressive Care Unit Registered Nurse: Phil Fierro DO [facility] Final Result documented in this encounter Visit Diagnoses Not on filedocumented in this encounter Care Teams Chiropractic Care Relationship Specialty Start Date End Date Terrence Ventura MD PCP - General Family Medicine 02/11/24 documented as of this encounter
--- OUTSIDE RECORDS SUMMARY | 2024-07-27 18:12 | XMS_ITS | Encounter Summary ---
Author Organization [facility] Address [address] [facility] [place] [address] Care Team Providers Care Clinical Counselor Name Role Phone Terrence Mcintyre MD Primary Care Provider + [phone] Encounter Details Date Type Department Care Team (Late st Contact Info) Description 07/08/2024 Abstract [facility] OB [address] [facility] [address] Ronald Fierro DO [address] [place] [address] Dr Ralph Dominguez, [facility]11 Social History Tobacco Use Types Packs/Day Years [...] Description 07/29/2024 2:50 PM EDT Routine [facility] OB [address] [facility] [address] Chelsea Carson PA [address] [facility] [place] [address] documented as of this encounter Visit Diagnoses Not on filedocumented in this encounter Care Teams Clinical Counselor Relationship Specialty Start Date End Date Terrence Mcintyre MD PCP - General Family Medicine 02/11/24 documented as of this encounter
--- OUTSIDE RECORDS SUMMARY | 2024-07-27 18:13 | XMS_ITS | Encounter Summary ---
Author Organization IMN s tem Address [facility]-[id number] [address] [place] [address] Care Team Providers Care Chronic Disease Epidemiologist Name Role Phone Sarah Queen TANBARK PEELER-MILK ROUTE SUPERVISOR Primary Care Provider + Encounter Details Date Type Department Care Team (Latest Contact Info) Description 07/24/2024 Travel Social History Tobacco Use Types Packs/Day Years [...] Upcoming Encounters Date Type Department Care Team ( Contact Info) Description 08/04/2024 9:00 AM EDT [facility] [address] [place] [address] Shira Staples MD [address] [facility] [place] [address] 08/07/2024 3:30 PM EDT Appointment [facility] US Imaging [address] [place] [address] documented as of this encounter Visit Diagnoses Not on filedocumented in this encounter Additional Health Concerns Assessment Noted Time PHQ-9 Depression Total Score: 0 05/29/19 23 11:03 AM EDT documented as of this encounter Care Teams Chronic Disease Epidemiologist Relationship Specialty Start Date End Date Sarah Queen, ESCOBAR-MILK ROUTE SUPERVISOR [address] [place] [address] PCP - General Internal Medicine 09/03/23 documented as of this encounter
--- OUTSIDE RECORDS SUMMARY | 2024-07-27 18:13 | XMS_ITS | Encounter Summary ---
Author Organization [facility] Address [address] [place] [address] Care Team Providers Care Maintenance Services Dispatcher Name Role Phone Terrence Mcintyre MD Primary Care Provider + [phone] Encounter Details Date Type Department Care Team (Late st Contact Info) Description 02/12/2024 Clinisync Result Encounter [facility] External Department Unsolicited Phil Fierro DO [address] [facility] [address] Ralph Dominguez, [facility]11 Social History Tobacco Use Types Packs/Day Years [...] PM EDT Routine [facility] OB [address] [facility] [place] [address] Chelsea Carson PA [address] [facility] [address] [place], [facility]11 documented as of this encounter Procedures Procedure Name Priority Date/Time Associated Diagnosis Comments US OB TRANSVAGINAL 02/12/2024 4: 26 AM EST documented in this encounter Results * US OB TRANSVAGINAL (02/12/2024 4:26 AM EST) Anatomical Region Laterality Modality Other 02/12/2024 4:26 AM EST Narrative 02/12/2024 4:29 AM EST [address] [address] Ultrasound Report Signed Patient: Nisha Fajardo MR#: [id number] : 1995 Acct:[id number] Age/Sex: 28 / F ADM Date: 02/11/24 Loc: [facility] Attending Dr: Phil Fierro D.O. Ordering Physician: Phil Fierro D.O. Date of Service: 02/11/24 Procedure(s): US OB transvaginal Accession Number(s): [id number] cc: Phil Fierro D.O.; Physician,Non-Staff Natividad [address] [address] Patient Name: NISHA FAJARDO MRN: [facility]:[id number] date: 1995 Sex: F Assigned Patient Location: [facility] Current Patient Location: Accession/Order Number: [id number] Exam Date: 02/11/2024 08:27 Report Date: 02/12/2024 04:26 At the request of: PHIL FIERRO Procedure: US OB transvaginal EXAMINATION: US OB transvaginal HISTORY: MISSED MENSES COMPARISON: No relevant comparison available. FINDINGS: GESTATIONAL SAC: Present and normal appearing. YOLK SAC: Present and normal appearing. POLE: Present and normal appearing. CARDIAC: Present. UTERUS: Normal size and appearance. OVARIES: Right: Normal. Left: Normal. CERVIX: 4.9 cm in length and closed. CUL-DE-SAC: Normal. OTHER: None. AGE BY LMP: 9 weeks 5 days KYLEIGH BY LMP: 09/10/2024 AGE BY US CRL: 10 weeks 4 days KYLEIGH BY US CRL: 09/04/2024 US/US OB transvaginal IMPRESSION: 1. Single live intrauterine . Electronically authenticated by: DAVE ALMONTE Date: 02/12/2024 04:26 Dictated By: Dave Almonte M.D. Signed By: 02/12/24 0429 DD/ 0426 TD/TT: Dairy Tester: Procedure Note Radiology, Radiologist, MD - 02/12/[address] [address] Ultrasound Report Signed Patient: Nisha Fajardo LMR#: [id number] : 1995Acct:[id number] Age/Sex: 28 / FADM Date: 02/11/24 Loc: [facility] Attending Dr: Phil Fierro D.O. Ordering Physician: Phil Fierro D.O. Date of Service: 02/11/24 Procedure(s): US OB transvaginal Accession Number(s): [id number] cc: Phil Fierro D.O.; Physician,Non-Staff Natividad The [address] [address] Patient Name: NISHA FAJARDO MRN: [facility]:[id number] date: 1995 Sex: F Assigned Patient Location: [facility] Current Patient Location: Accession/Order Number: [id number] Exam Date: 02/11/2024 08:27 Report Date: 02/12/2024 04:26 At the request of: PHIL FIERRO Procedure: US OB transvaginal EXAMINATION: US OB transvaginal HISTORY: MISSED MENSES COMPARISON: No relevant comparison available. FINDINGS: GESTATIONAL SAC: Present and normal appearing. YOLK SAC: Present and normal appearing. POLE: Present and normal appearing. CARDIAC: Present. UTERUS: Normal size and appearance. OVARIES: Right: Normal. Left: Normal. CERVIX: 4.9 cm in length and closed. CUL-DE-SAC: Normal. OTHER: None. AGE BY LMP: 9 weeks 5 days KYLEIGH BY LMP: 09/10/2024 AGE BY US CRL: 10 weeks 4 days KYLEIGH BY US CRL: 09/04/2024 US/US OB transvaginal IMPRESSION: 1. Single live intrauterine . Electronically authenticated by: DAVE ALMONTE Date: 02/12/2024 04:26 Dictated By: Dave Almonte M.D. Signed By:02/12/24428 DD/ 5 TD/TT: Dairy Tester: us Phil Sri DO [facility] Final Result documented in this encounter Visit Diagnoses Not on filedocumented in this encounter Care Teams Maintenance Services Dispatcher Relationship Specialty Start Date End Date Terrence Mcintyre MD PCP - General Family Medicine 02/11/24 documented as of this encounter
--- OUTSIDE RECORDS SUMMARY | 2024-07-27 18:13 | XMS_ITS | Encounter Summary ---
Author Organization [facility] Address [id number] [address] [place] [address] Care Team Providers Care Rubber Heel And Sole Press Tender Name Role Phone Sarah Queen Arnaud VANGN-ONBOARDING SPECIALIST Primary Care Provider + Encounter Details Date Type Department Care Team (Late st Contact Info) Description 06/12/2024 [facility] [address] [place] [address] Sveta Gomez CMA Social History Tobacco Use Types Packs/Day Years [...] got money to buy more. Never True 06/11/2024 Within the past 12 months th e food we bought just didn't last and we didn't have money to get more. Never True 06/11/2024 Estimated Date of Delivery Comme nts Yes 09/04/2024 Based on Ultraso und Sex and Gender Information Value Date Recorded Sex Assigned at Not on file Legal Sex Female 11:54 AM EDT Gender Identity Not on file Sexual Orientation Not on file documented as of this encounter Miscellaneous Notes * Telephone Encounter - Sveta Gomez CMA - 06/12/2024 12:05 PM EDT ----- Message from EDWIN Panchal sent at 06/12/2024 10:51 AM EDT ----- I am not her PCP - please send to appropriate provider and if she does not have one suggest [facility] application * Telephone Encounter - Sveta Gomez CMA - 06/12/2024 12:05 PM EDT Called pt left vm to cb documented in this encounter Plan of Treatment Upcoming Encounters Date Type Department Care Team (Late st Contact Info) Description 08/04/2024 9:00 AM EDT [facility] [address] [place] [address] Shira Staples MD [address] [facility] [place] [address] 08/07/2024 3:30 PM EDT Appointment [facility] US Imaging [address] [place] [address] documented as of this encounter Visit Diagnoses Not on filedocumented in this encounter Additional Health Concerns Assessment Noted Time PHQ-9 Depression Total Score: 0 05/29/19 23 11:03 AM EDT documented as of this encounter Care Teams Rubber Heel And Sole Press Tender Relationship Specialty Start Date End Date Sarah Queen APRN-CNP [address] [place] [address] PCP - General Internal Medicine 09/03/23 documented as of this encounter
--- OUTSIDE RECORDS SUMMARY | 2024-07-27 18:13 | XMS_ITS | Encounter Summary ---
Author Organization [employer] s tem Address [facility][id number] [address] [place] [address] Care Team Providers Care Tugboat Mate Name Role Phone Sarah Queen FLOOR LAYER APPRENTICE-PLASTIC CNC MACHINE OPERATOR Primary Care Provider + Encounter Details Date Type Department Care Team (Latest Contact Info) Description 07/15/2024 Travel Social History Tobacco Use Types Packs/Day [...] Health Services - Women's Services [address] [place] [address] Shira Staples MD [address] [facility] [place] [address] 08/07/2024 3:30 PM EDT [facility]ointment [facility] US Imaging [address] [place] [address] documented as of this encounter Visit Diagnoses Not on filedocumented in this encounter Additional Health Concerns Assessment Noted Time PHQ-9 Depression Total Score: 0 05/29/19 23 11:03 AM EDT documented as of this encounter Care Teams Tugboat Mate Relationship Specialty Start Date End Date Sarah Queen, ESCOBAR-PLASTIC CNC MACHINE OPERATOR [address] [place] [address] PCP - General Internal Medicine 09/03/23 documented as of this encounter
--- OUTSIDE RECORDS SUMMARY | 2024-07-27 18:13 | XMS_ITS | Encounter Summary ---
Author Organization [facility] Address [id number] [address] [place] [address] Care Team Providers Care Leather Shaver Name Role Phone Sarah Queen Arnaud VANGN-MEDICAL AFFAIRS DIRECTOR Primary Care Provider + Encounter Details Date Type Department Care Team (Late st Contact Info) Description 07/21/2024 Telephone Maternal- Medicine at [facility] [address] [facility] [facility] [facility] [place] [address] Lila Zhao, ARLIN Social History Tobacco Use Types Packs/Day Years [...] encounter Miscellaneous Notes * Telephone Encounter - Lila Zhao RN - 07/21/2024 6:40 PM EDT Called pt and left her a message that we had pulled her madhavi report and Dr Gillespie reviewed her blood sugars and did not want to make any changes for this week her blood sugars looked good. If she is truly having low blood sugar symptoms she needs to call back to discuss. Pt is currently not on any diabetic medications. documented in this encounter Plan of Treatment Upcoming Encounters Date Type Department Care Team (Late st Contact Info) Description 08/04/2024 9:00 AM EDT [facility] [address] [place] [address] [place] [address] [place] [address], [address] [place] [address] 08/07/2024 3:30 PM EDT Appointment [facility] US Imaging [address] [facility] [facility] [place] [address] documented as of this encounter Visit Diagnoses Not on filedocumented in this encounter Additional Health Concerns Assessment Noted Time PHQ-9 Depression Total Score: 0 05/29/19 23 11:03 AM EDT documented as of this encounter Care Teams Leather Shaver Relationship Specialty Start Date End Date Sarah Queen APRN-MEDICAL AFFAIRS DIRECTOR [address] [place] [address] PCP - General Internal Medicine 09/03/23 documented as of this encounter
--- OUTSIDE RECORDS SUMMARY | 2024-07-27 18:13 | XMS_ITS | Encounter Summary ---
Author Organization [facility] Address [address] [place] [address] Care Team Providers Care Ply Splicer Name Role Phone Terrence Ventura MD Primary Care Provider + [phone] Encounter Details Date Type Department Care Team (Late st Contact Info) Description 07/17/2024 Clinisync Result Encounter [facility] External Department Unsolicited Phil Fierro DO [address] [facility] [address] Ralph Dominguez, [facility]11 Social History Tobacco Use Types Packs/Day Years [...] PM EDT Routine [facility] BCP OB [address] [facility] [place] [address] Chelsea Carson PA [address] [facility] [address] [place], [facility]11 documented as of this encounter Procedures Procedure Name Priority Date/Time Associated Diagnosis Comments US OB BPP W NON-STRESS 07/17/2024 6:48 AM EDT documented in this encounter Results * US OB BPP W NON-STRESS (07/17/2024 6:48 AM EDT) Anatomical Region Laterality Modality Other 07/17/2024 6:48 AM EDT Narrative 07/17/2024 6:51 AM EDT [address] [address] Ultrasound Report Signed Patient: NISHA FAJARDO MR#: [id number] : 1995 Acct:[id number] Age/Sex: 28 / F ADM Date: 07/16/24 Loc: US Attending Dr: Phil Fierro D.O. Ordering Physician: Phil Fierro D.O. Date of Service: 07/16/24 Procedure(s): US OB BPP w non-stress Accession Number(s): [id number] cc: TERRENCE VENTURA ; Phil Fierro D.O. [address] [address] Patient Name: NISHA FAJARDO MRN: [facility]:[id number] date: 1995 Sex: F Assigned Patient Location: [facility] Current Patient Location: Accession/Order Number: [id number] Exam Date: 07/17/2024 06:44 Report Date: 07/17/2024 06:48 At the request of: PHIL FIERRO DO Procedure: US OB BPP w non-stress US OB BPP w non-stress 07/16/2024 7:50 PM SIGNS AND SYMPTOMS: 12/05/2023 Polyhydraminos, supraventricular tachycarida PROTOCOL: Grayscale and color Doppler sonographic images of the pelvis were obtained COMPARISON: 07/09/2024 FINDINGS: The engineer intern reports a BPP of 8 out of 8. SKYLAR is normal at 25.2 cm. heart rate 128 bpm. US/US OB BPP w non-stress Impression: BPP 8 out of 8. Impression dictated by: Jorge Lam M.D. 07/17/2024 6:48 AM Dictation Location: [place] [address] Electronically authenticated by: [id number] Y Date: 07/17/2024 06:48 Dictated By: Jorge Lam M.D. Signed By: 07/17/24 0651 DD/ TD/TT: Mechanical Laboratory Technician: Procedure Note Radiology, Radiologist, - 07/17/2024 The [place] [id number] Ultrasound Report Signed Patient: NISHA FAJARDO LMR#: [id number] : 1995Acct:[id number] Age/Sex: 28 / FADM Date: 07/16/24 Loc: US Attending Dr: Phil Fierro D.O. Ordering Physician: Phil Fierro D.O. Date of Service: 07/16/24 Procedure(s): US OB BPP w non-stress Accession Number(s): [id number] cc: TERRENCE VENTURA ; Phil Fierro D.O. The [place] [id number] Patient Name: NISHA FAJARDO MRN: [id number] date: 1995 Sex: F Assigned Patient Location: [facility] Current Patient Location: Accession/Order Number: [id number] Exam Date: 07/17/2024 06:44 Report Date: 07/17/2024 06:48 At the request of: PHIL FIERRO DO Procedure: US OB BPP w non-stress US OB BPP w non-stress 07/16/2024 7:50 PM SIGNS AND SYMPTOMS: 12/05/2023 Polyhydraminos, supraventricular tachycarida PROTOCOL: Grayscale and color Doppler sonographic images of the pelviswere obtained COMPARISON: 07/09/2024 FINDINGS: The engineer intern reports a BPP of 8 out of 8. SKYLAR is normal at 25.2 cm. heart rate 128 bpm. US/US OB BPP w non-stress Impression: BPP 8 out of 8. Impression dictated by: Jorge Lam M.D. 07/17/2024 6:48 AM Dictation Location: [place] [address] Electronically authenticated by: [id number] Y Date: 506:48 Dictated By: Jorge Lam M.D. Signed By:07/17/2451 DD/ TD/TT: Mechanical Laboratory Technician: us Phil Sri DO [facility] Final Result documented in this encounter Visit Diagnoses Not on filedocumented in this encounter Care Teams Ply Splicer Relationship Specialty Start Date End Date Terrence Ventura MD PCP - General Family Medicine 02/11/24 documented as of this encounter
--- OUTSIDE RECORDS SUMMARY | 2024-07-27 18:13 | XMS_ITS | Encounter Summary ---
Author Organization [facility] Address [id number] [address] [place] [address] Care Team Providers Care Ms Sql Server Developer Name Role Phone Sarah Queen ESCOBAR-SLATE SPLITTER Primary Care Provider + Reason for Visit * Reason Comments Med Refill Encounter Details Date Type Department Care Team (Late st Contact Info) Description 02/20/2022 Refill [facility] Internal Medicine - Family Medicine [address] [place] [address] Deja Caal APRN-FNP [address] [place] [address] [place] [address] Social History Tobacco Use Types Packs/Day Years Used Date Smoking Tobacco: Never Assessed Childcare Answer Date Recorded Childcare Unknown 08/13/2018 Employment Answer Date Recorded Employment Unknown 08/13/2018 Comments Unknown Sex and Gender Information Value Date Recorded Sex Assigned at Not on file Legal Sex Female 11:54 AM EDT Gender Identity Not on file Sexual Orientation Not on file documented as of this encounter Miscellaneous Notes * Telephone Encounter - Shelley Sanchez - 02/20/2022 2:14 AM EST ----- Message from MARITZA Chavez sent at 03/05/2022 9:14 AM EST ----- Regarding: wellness apt needed She is due for her wellness apt after the 16 of March, I am sending in a two month supply of her oral contraceptive to give her time to make an apt - Deja * Telephone Encounter - Shelley Daniel - 02/20/2022 2:14 AM EST Left Message for pt to call back documented in this encounter Plan of Treatment Upcoming Encounters Date Type Department Care Team (Late st Contact Info) Description 08/04/2024 9:00 AM EDT [facility] [address] [place] [address] Shira Staples MD [address] [place] [address], [address] [place] [address] 08/07/2024 3:30 PM EDT Appointment [facility] US Imaging [address] [facility] [place] [address] documented as of this encounter Visit Diagnoses Not on filedocumented in this encounter Care Teams Ms Sql Server Developer Relationship Specialty Start Date End Date Sarah Queen APRN-SLATE SPLITTER [address] [place] [address] PCP - General Internal Medicine 09/03/23 documented as of this encounter
--- OUTSIDE RECORDS SUMMARY | 2024-07-27 18:13 | XMS_ITS | Encounter Summary ---
Author Organization [employer] Address [id number] [address] [place] [address] Care Team Providers Care Beverage Server Name Role Phone BerniceAnn MarieSarahdonnie Lares APRN-FOOD SERVICE EMPLOYEE Primary Care Provider + Reason for Referral * Cardiology (Routine) - Closed Specialty Diagnoses / Procedures Referred By Jess loza Referred To Contact Diagnoses Supraventricular tachycardia of fetus affecting management of Intrauterine Polyhydramnios affecting Excessive growth affecting management of in second trimester, single or unspecified fetus Procedures ECG 12 lead Aidan Rivera MD [address] [place] [address] Phone: tel: fax: Referral ID Status Reason Start Date Expiration Date Visits Re quested Visits Authorized [id number] Closed 06/29/2024 06/29/2025 1 1 Encounter Details Date Type Department Care Team (Late st Contact Info) Description 06/29/2024 Orders Only [facility] Pediatric Cardiology [address] [place] [address] Aidan Rivera MD [address] [place], [place] [id number] Supraventricular tachycardia of fetus affecting management of (Primary Dx); Intrauterine ; Polyhydramnios affecting ; Excessive growth [...] Health Services - Women's Services [address] [place] [address] Shira Staples MD [address] [place] [address], [address] [address] 08/07/2024 3:30 PM EDT Appointment [facility] US Imaging [address] [place] [address] documented as of this encounter Results * ECG 12 lead (07/17/2024 4:43 PM EDT) 07/17/2024 4:43 PM EDT Narrative [facility] - 07/26/2024 9:04 AM EDT Aidan Rivera MD ECG ORDERABLES Edited Result - Final [facility] documented in this encounter Visit Diagnoses Diagnosis Supraventricular tachycardia of fetus affecting management of - Primary Intrauterine Polyhydramnios affecting Excessive growth affecting management [...] documented as of this encounter Care Teams Beverage Server Relationship Specialty Start Date End Date Sarah Queen, AUTOMATIC MOUNTER-FOOD SERVICE EMPLOYEE [address] [place] [address] PCP - General Internal Medicine 09/03/23 documented as of this encounter
--- OUTSIDE RECORDS SUMMARY | 2024-07-27 18:13 | XMS_ITS | Encounter Summary ---
Author Organization [employer] Sys [employer] Address [facility]-[id number] [address] [place] [address] Care Team Providers Care Utilities Ground Worker Name Role Phone Sarah Queen INSURANCE ADJUSTOR-BOILER ROOM HELPER Primary Care Provider + Reason for Visit * Reason Comments Med Refill Encounter Details Date Type Department Care Team (Late st Contact Info) Description 05/15/2022 Refill [facility] Internal Medicine - Family Medicine [address] [place] [address] Deja Caal APRN-FNP [address] [place] [address] [place] [address] Social History Tobacco Use Types Packs/Day Years [...] encounter Miscellaneous Notes * Telephone Encounter - MARITZA Chavez - 05/15/2022 2:07 AM EDT In March I sent in two packs and send she needed an apt, now I am not sending any in unless she schedules an apt - Deja documented in this encounter Plan of Treatment Upcoming Encounters Date Type Department Care Team (Late st Contact Info) Description 08/04/2024 9:[address]T [address] [facility] Services - Women's Services [address] [place] [address] [place] [address] [place] [address], [address] [place] [address] 08/07/2024 3:30 PM EDT Appointment [facility] US Imaging [address] [facility] [place] [address] documented as of this encounter Visit Diagnoses Not on filedocumented in this encounter Care Teams Utilities Ground Worker Relationship Specialty Start Date End Date Sarah Queen APRN-BOILER ROOM HELPER [address] [place] [address] PCP - General Internal Medicine 09/03/23 documented as of this encounter
--- OUTSIDE RECORDS SUMMARY | 2024-07-27 18:13 | XMS_ITS | Clinical Summary ---
Author Organization [employer] Address [facility] [id number] [address] [place] [address] Care Team Providers Care Packing Checker Name Role Phone BerniceAnn Marie brooksdonnie Chisholm APRN-EINSTEIN [employer] ASSISTANT MANAGER Primary Care Provider + Allergies No known active allergies Medications ondansetron (ZOFRAN) 4 mg tablet Take 1 tablet (4 mg total) by mouth every 8 (eight) hours as needed for nausea or vomiting. 20 tablet 05/29/19 Active Additional Information Patient not taking.Reported on 07/24/2024 [id number] ic acid ( 19) 29 mg iron- 1 mg tablet,chewabl e Chew 1 tablet and swallow in the morning. Active lancets 33 gauge miscIndication s:Diet controlled gestational diabetes mellitus (GDM) in third trimester To check blood glucose fasting and 1 hour after each meal 200 each 06/27/19 25 Active digoxin (LANOXIN) 250 mcg tablet Take 1 tablet (250 mcg total) by mouth every 12 (twelve) hours. 60 tablet 3 06/29/19 25 Active sotaloL (BETAPACE) 160 mg tablet Take 1 tablet (160 mg total) by mouth every 12 (twelve) hours. 60 tablet 3 06/29/19 25 Active magnesium oxide (MAGOX) 400 mg tablet Take 1 tablet (400 mg total) by mouth in the morning and 1 tablet (400 mg total) before bedtime. 60 tablet 3 06/29/19 25 Active potassium chloride (K-TAB,KLOR-CO N) 10 MEQ CR tablet Take 5 tablets (50 mEq total) by mouth in the morning. 150 tablet 3 06/29/19 25 Active calcium carbonate-kristen min D3 (OSCAL 500 + D) 500 mg (1,250 mg) - 200 units per tablet Take 1 tablet by mouth in the morning and 1 tablet in the evening. Take with meals. 180 tablet 3 06/29/19 25 Active alcohol swabs pads, medicatedIndic ations:Diet controlled gestational diabetes mellitus (GDM) in third trimester To use when performing a fingerstick 200 each 07/07/19 25 Active blood sugar diagnostic (glucose blood) stripIndicatio ns:Diet controlled gestational diabetes mellitus (GDM) in third trimester Check blood glucose fasting and 1 hour after each meal 200 strip 07/07/19 Active blood-glucose meter miscIndication s:Diet controlled gestational diabetes mellitus (GDM) in third trimester Please check blood glucose fasting and 1 hour after each meal 1 each 07/07/19 25 Active blood-glucose sensor (FREESTYLE NEIDA 3 PLUS SENSOR) deviceIndicati ons:Diet controlled gestational diabetes mellitus (GDM) in third trimester Wear for 15 days and change 2 each 3 07/07/19 Active famotidine (PEPCID) 40 mg tablet Take 1 tablet (40 mg total) by mouth in the morning. Active JUNEL FE 03/23, 28, 1 mg-20 mcg (21)/75 mg (7) per tablet TAKE 1 TABLET DAILY 84 tablet 03/05/19 23 2024 Discontinued(S top Taking at Discharge) blood sugar diagnostic (glucose blood) stripIndicatio ns:Diet controlled gestational diabetes mellitus (GDM) in third trimester Check blood glucose fasting and 1 hour after each meal 200 strip 06/27/19 25 2024 Discontinued(R eorder) alcohol swabs pads, medicatedIndic ations:Diet controlled gestational diabetes mellitus (GDM) in third trimester To use when performing a fingerstick 200 each 06/27/19 25 2024 Discontinued(R eorder) blood-glucose meter miscIndication s:Diet controlled gestational diabetes mellitus (GDM) in third trimester Please check blood glucose fasting and 1 hour after each meal 1 each 06/27/19 25 2024 Discontinued(R eorder) blood-glucose sensor (FREESTYLE NEIDA 3 PLUS SENSOR) deviceIndicati ons:Diet controlled gestational diabetes mellitus (GDM) in third trimester Wear for 15 days and change 2 each 3 06/27/19 25 2024 Discontinued(R eorder) digoxin (LANOXIN) 250 mcg tablet Take 1 tablet (250 mcg total) by mouth every 12 (twelve) hours. 60 tablet 3 06/29/19 25 2024 Discontinued sotaloL (BETAPACE) 160 mg tablet Take 1 tablet (160 mg total) by mouth every 12 (twelve) hours. 60 tablet 3 06/29/192024 Discontinued Immunization, In Clinic, Inject 0.5 mL into the appropriate muscle once for 1 dose. diph,pertuss(ac el),tet vac(PF) Sign this order to satisfy the OSBOP Positive ID requirements for immunization orders. 07/11/192024 Active Problems Patient Care Coordination No te Formatting of this note migh t be different from the original. CARE COORDINATION DIAGNOSIS: SVT with Intermittent PAC's Referring OB: Sri MFM: Essence Maternal Hx: GDM MSAFP: cfDNA: Not done Carrier: Amnio: []Genetic Counselling: [x]Peds Cardiology: as In Pt 06/11/24 a male fetus demonstrated normal intracardiac anatomy . Frequent episodes of supraventricular tachycardia with rate of 220 - 230 beats per minute with one-to-one conduction. There were occasional but infrequent episodes of normal atrioventricular coupling with normal heart rate. []Peds Urology: []Peds Ortho: []Peds Surgery: []Peds Neurology: []Peds Neurosurgery: []Peds Craniofacial: []NICU Consult: []Palliative Care Consult: []SGM: [][facility]: [][place]: [] MRI: [][facility]: [][facility]: [][facility]: [x][facility]: Hybrid care with [facility] due to distance Delivery Recommendation: [] Term at local hospital [x] at TTH 37 weeks Surveillance Plan: [x] F/U Survey sched 07/17/[address] Suárez OV [x] Growth q _3_ weeks Sched 08/07/24 [] Dopplers q __ weeks [] Echo at __ weeks [] Cervical length q __ weeks [] TTTS q __ weeks [] Wkly NST/SKYLAR starting at __ weeks [x] 2x/wk NST/SKYLAR at Dr. Fierro's office Problem Noted Date Diagnosed Date [facility]ational diabetes mellitus [facility]) [facility] Intrauterine 06/11/2024 Overview (07/10/2024): First trimester Cell free DNA: low risk per patient Carrier screening 28 week labs CBC, HIV, Syphilis completed: yes Rh status: positive Third trimester Tdap: will do with regular OBGYN GBS at 36 weeks Mode of delivery: testing: Saturday/ NST/ DVP at [facility] Supraventricular tachycardia of fetus affecting management of 06/11/2024 Overview (07/23/2024): S/p hospital admission end of June Continue sotalol and digoxin MFM appointment July 17 with growth US Rec'd ANCS 06/16, 06/17/24 Excessive growth affec ting management of mother in second trimester, antepartum 06/11/2024 Estimated Date of Delivery Comme nts Yes 09/04/2024 Based on Ultraso und Resolved Problems Problem Noted Date Diagnosed Date Resolved Date Polyhydramnios affecting 06/11/2024 07/23/2024 Encounters Date Type Department Care Team Description 07/24/2024 8:30 AM EDT [facility] [address] [place] [phone] Margoth Tatum MD GA: 34w0d 07/24/2024 Travel 07/22/2024 Orders Only [facility] Internal Medicine - Family Medicine [address] [place] [address] Ref Prov, Not In System 07/21/2024 Telephone Maternal- Medicine at [facility] [address] [place] [address] Lila Zhao, ARLIN 07/17/2024 4:34 PM EDT - 07/17/2024 11:59 PM EDT Hospital Encounter [facility] - Cardiovascular [address] [place] [address] Supraventricular tachycardia of fetus affecting management of ; Intrauterine ; Polyhydramnios affecting ; Excessive growth affecting management of in second trimester, single or unspecified fetus Discharge Disposition: Home 07/17/2024 2:30 PM EDT Office Visit Maternal- Medicine at [facility] [address] [place] [address] Silvestre Suárez MD 33 weeks gestation of (Primary Dx); Gestational diabetes mellitus (GDM) in third trimester, gestational diabetes method of control unspecified; Supraventricular tachycardia of fetus affecting management of ; Excessive growth affecting management of in second trimester, single or unspecified fetus 07/17/2024 12:47 PM EDT - 07/17/2024 4:33 PM EDT Hospital Encounter [facility] - [facility] US Imaging [address] [place] [address] Supraventricular tachycardia of fetus affecting management of ; Polyhydramnios affecting Discharge Disposition: Home 07/15/2024 Travel 07/10/2024 10:00 AM EDT Initial [facility] [address] [place] [address] Valorie Fenton MD GA: 32w0d 07/10/2024 Travel 07/06/2024 1:30 PM EDT Support Visit Maternal- Medicine at [facility] [address] [place] [address] Silvestre Suárez MD Frey, Angela M, RN Migdalia Morrow RD Diet controlled gestational diabetes mellitus (GDM) in third trimester 07/06/2024 Remote Patient Monitoring Maternal- Medicine at [facility] [address] [place] [address] Shahrzad Rojas, PROBATION MANAGER-M Polyhydramnios affecting [O40.9XX0] (Primary Dx) 07/06/2024 Orders Only Maternal- Medicine at [facility] [address] [place] [address] Holly Sheehan RN Diet controlled gestational diabetes mellitus (GDM) in third trimester 07/06/2024 Documentation Maternal- Medicine at [facility] [address] [place] [address] Hayley Conner, [facility] 07/04/2024 Travel 06/29/2024 Documentation Maternal- Medicine at [facility] [address] [place] [address] Hayley Conner RDMS 06/29/2024 Orders Only [facility] Pediatric Cardiology [address] [place] [phone] Aidan Rivera MD Supraventricular tachycardia of fetus affecting management of (Primary Dx); Intrauterine ; Polyhydramnios affecting ; Excessive growth affecting management of in second trimester, single or unspecified fetus 06/29/2024 Telephone Maternal- Medicine at [facility] [address] [place] [address] Mendy North RN 06/26/2024 Orders Only [facility] - Labor [address] [place] [address] Silvestre Suárez MD Diet controlled gestational diabetes mellitus (GDM) in third trimester (Primary Dx) 06/26/2024 Documentation Maternal- Medicine at [facility] [address] [place] [address] Anahi Ragsdale RN 06/26/2024 Orders Only Maternal- Medicine at [facility] [address] [facility] [place] [address] Anahi Ragsdale RN Diet controlled gestational diabetes mellitus (GDM) in third trimester (Primary Dx) 06/24/2024 8:30 AM EDT - 06/24/2024 11:59 PM EDT Hospital Encounter [facility] - MFM US Imaging [address] [place] [address] Discharge Disposition: Home 06/23/2024 8:57 AM EDT - 06/23/2024 11:59 PM EDT Hospital Encounter [facility] - MFM US Imaging [address] [place] [address] Discharge Disposition: Home 06/22/2024 8:43 AM EDT - 06/22/2024 11:59 PM EDT Hospital Encounter [facility] - MFM US Imaging [address] [place] [address] Discharge Disposition: Home 06/22/2024 Telephone [facility] [address] [place] [address] Luther Buchanan, can capper Problem 06/21/2024 9:49 AM EDT - 06/21/2024 11:59 PM EDT Hospital Encounter [facility] - MFM US Imaging [address] [place] [address] Discharge Disposition: Home 06/21/2024 Telephone [facility] [address] [place] [address] Bhavani Chavez patient update 06/20/2024 9:11 AM EDT - 06/20/2024 11:59 PM EDT Hospital Encounter [facility] - MFM US Imaging [address] [place] [address] Discharge Disposition: Home 06/19/2024 8:08 AM EDT - 06/19/2024 11:59 PM EDT Hospital Encounter [facility] - MFM US Imaging [address] [place] [address] Discharge Disposition: Home 06/18/2024 9:59 AM EDT - 06/18/2024 11:59 PM EDT Hospital Encounter [facility] - M US Imaging [address] [place] [address] Discharge Disposition: Home 06/17/2024 9:50 AM EDT - 06/17/2024 11:59 PM EDT Hospital Encounter [facility] - MFM US Imaging [address] [place] [address] Discharge Disposition: Home 06/16/2024 8:09 AM EDT - 06/16/2024 11:59 PM EDT Hospital Encounter [facility] - MF US Imaging [address] [place] [address] Discharge Disposition: Home 06/16/2024 Travel 06/15/2024 8:01 AM EDT - 06/15/2024 11:59 PM EDT Hospital Encounter [facility] US Imaging [address] [place] [address] Discharge Disposition: Home 06/12/2024 Telephone [facility] Internal Medicine - Family Medicine [address] [place] [address] Sveta Gomez CMA 06/12/2024 Orders Only Maternal- Medicine at [facility] [address] [place] [address] Veda Bonilla, RN Supraventricular tachycardia of fetus affecting management of (Primary Dx); Polyhydramnios affecting 06/11/2024 2:47 PM EDT - 06/28/2024 11:09 AM EDT Hospital Encounter [facility] - Labor [address] [place] [address] Fuentes Stauffer MD Excessive growth affecting management of in second trimester, single or unspecified fetus (Primary Dx); Polyhydramnios affecting ; Supraventricular tachycardia of fetus affecting management of ; Intrauterine Discharge Disposition: Home 06/11/2024 2:30 PM EDT Office Visit Maternal- Medicine at [facility] [address] [place] [address] Silvestre Suárez MD 27 weeks gestation of (Primary Dx); Supraventricular tachycardia of fetus affecting management of ; Polyhydramnios affecting ; Excessive growth affecting management of in second trimester, single or unspecified fetus 06/11/2024 12:46 PM EDT - 06/11/2024 2:46 PM EDT Hospital Encounter [facility] US Imaging [address] [place] [address] Screening, , for anatomic survey Discharge Disposition: Home 06/11/2024 Travel 06/11/2024 Orders Only [facility]- Medicine at [facility] [address] [place] [address] Ref Prov, Not In System 06/11/2024 Abstract Maternal- Medicine at [facility] [address] [place] [address] External, Scanning Provider from Last 3 Months Immunizations Immunization Administration Dates Next Due DTaP / Hep B / IPV 10/20/2003 DTaP, Unspecified 10/24/1998, 9,04/01/1998,01/12 Hep B, Adolescent or Pediatric 04/01/1998,1997,1997 HiB 10/24/1998, 9,04/01/1998,01/12 Influenza, Injectable, Mdck, Preservative Free, Quad 01/10/2021 MMR 10/20/2003,10/24/1998 Meningococcal Conjugate 11/22/2015 Polio, Unspecified 06/08/1998,04/01/1998, 998 Tdap 07/10/2024,11/22/2010 Family History Medical History Relation Name Comments Heart disease Mother No Known Problems Sister Relation Name Status Comments Father Alive Mother Alive Sister Social History Tobacco Use Types Packs/Day Years Used Date Smoking Tobacco: Never Smokeless Tobacco: Never Tobacco Cessation:Counseling Given: Not Answered Alcohol Use Standard Drinks/Week Comments Not Currently [...] on file Sexual Orientation Not on file Last Filed Vital Signs Vital Sign Reading Time Taken Comments Blood Pressure 100/70 07/24/2024 8:32 AM EDT Pulse 82 07/17/2024 1:48 PM EDT Temperature 36.5 C (97.7 F) 06/28/2024 7:30 AM EDT Respiratory Rate 19 06/28/2024 7:30 AM EDT Oxygen Saturation 97% 06/22/2024 1:00 PM EDT Inhaled Oxygen Concentration - - Weight 90 kg (198 lb 6.4 oz) 07/24/2024 8:32 AM EDT Height 160 cm (5' 3 ) 07/17/2024 1:48 PM EDT Body Mass Index 35.14 07/17/2024 1:48 PM EDT Plan of Treatment Upcoming Encounters Date Type Department Care Team (Late st Contact Info) Description 08/04/2024 9:00 AM EDT [facility] [address] [place] [phone] Shira Staples MD [address] [facility] [place] [address] 08/07/2024 3:30 PM EDT Appointment [facility] Imaging [address] [place] [address] Health Maintenance Due Date Last Done Comments Adult BMI Follow Up Plan 10/07/2015 Depression Screening 05/29/2023 05/28/2022 Adult BMI Screening 07/24/2025 07/24/2024 Tobacco Screening 07/24/2025 07/24/2024 Pap Smear 04/15/2027 04/15/2024, 12/15/2018 DTaP,Tdap and Td Vaccines (8 - Td or Tdap) 07/10/2034 07/10/2024, 11/22/2010, 10/20/2003, Additional history exists Influenza Vaccine Discontinued 01/10/2021 Medical Devices Not on file Procedures Procedure Name Priority Date/Time Associated Diagnosis Comments ECG 12-LEAD Routine 07/17/2024 4:43 PM EDT Supraventricular tachycardia of fetus affecting management of Intrauterine Polyhydramnios affecting Excessive growth affecting management of in second trimester, single or unspecified fetus US MFM OB FOLLOW-UP, 1 FETUS Routine 07/17/2024 2:06 PM EDT Supraventricular tachycardia of fetus affecting management of Polyhydramnios affecting GLUCOSE RANDOM OR FASTING Routine 07/06/2024 Diet controlled gestational diabetes mellitus (GDM) in third trimester US PELVIC WITH TRANSVAGINAL Routine 07/02/2024 11:47 AM EDT BEDSIDE GLUCOSE Routine 06/28/2024 10:10 AM EDT COMPREHENSIVE METABOLIC PANEL Routine 06/28/2024 7:57 AM EDT BEDSIDE GLUCOSE Routine 06/28/2024 6:05 AM EDT ECG 12-LEAD Timed 06/27/2024 11:24 PM EDT BEDSIDE GLUCOSE Routine 06/27/2024 8:44 PM EDT BEDSIDE GLUCOSE Routine 06/27/2024 4:40 PM EDT BEDSIDE GLUCOSE Routine 06/27/2024 3:32 PM EDT ECG 12-LEAD Timed 06/27/2024 11:12 AM EDT BEDSIDE GLUCOSE Routine 06/27/2024 9:34 AM EDT MAGNESIUM Routine 06/27/2024 6:48 AM EDT COMPREHENSIVE METABOLIC PANEL Routine 06/27/2024 6:48 AM EDT BEDSIDE GLUCOSE Routine 06/27/2024 6:03 AM EDT ECG 12-LEAD Timed 06/26/2024 11:12 PM EDT BEDSIDE GLUCOSE Routine 06/26/2024 8:04 PM EDT BEDSIDE GLUCOSE Routine 06/26/2024 4:23 PM EDT BEDSIDE GLUCOSE Routine 06/26/2024 11:22 AM EDT ECG 12-LEAD Timed 06/26/2024 11:19 AM EDT BEDSIDE GLUCOSE Routine 06/26/2024 8:17 AM EDT COMPREHENSIVE METABOLIC PANEL Routine 06/26/2024 5:45 AM EDT BEDSIDE GLUCOSE Routine 06/26/2024 5:44 AM EDT ECG 12-LEAD Timed 06/25/2024 11:01 PM EDT BEDSIDE GLUCOSE Routine 06/25/2024 8:17 PM EDT BEDSIDE GLUCOSE Routine 06/25/2024 2:54 PM EDT ECG 12-LEAD Timed 06/25/2024 11:27 AM EDT BEDSIDE GLUCOSE Routine 06/25/2024 9:59 AM EDT COMPREHENSIVE METABOLIC PANEL Routine 06/25/2024 5:48 AM EDT ECG 12-LEAD Timed 06/24/2024 11:09 PM EDT BEDSIDE GLUCOSE Routine 06/24/2024 8:44 PM EDT BEDSIDE GLUCOSE Routine 06/24/2024 3:58 PM EDT LIMITED ECHO F/U Routine 2:46 PM EDT BEDSIDE GLUCOSE Routine 06/24/2024 10:06 AM EDT US MFM BIOPHYSICAL PROFILE WO NST Routine 06/24/2024 9:19 AM EDT POTASSIUM Routine 06/24/2024 8:21 AM EDT MAGNESIUM Routine 06/24/2024 8:21 AM EDT BEDSIDE GLUCOSE Routine 06/24/2024 5:32 AM EDT DIGOXIN LEVEL Routine 06/24/2024 5:32 AM EDT COMPREHENSIVE METABOLIC PANEL Routine 06/24/2024 5:32 AM EDT TYPE AND SCREEN Routine 06/24/2024 12:00 AM EDT MAGNESIUM Routine 06/23/2024 11:41 PM EDT POTASSIUM Routine 06/23/2024 11:41 PM EDT ECG 12-LEAD Timed 06/23/2024 11:23 PM EDT BEDSIDE GLUCOSE Routine 06/23/2024 7:58 PM EDT POTASSIUM Routine 06/23/2024 4:29 PM EDT MAGNESIUM Routine 06/23/2024 4:29 PM EDT BEDSIDE GLUCOSE Routine 06/23/2024 2:49 PM EDT ECG 12-LEAD Timed 06/23/2024 11:16 AM EDT US MFM LMTD OB, 1 OR MORE FETUS Routine 06/23/2024 9:53 AM EDT MAGNESIUM Routine 06/23/2024 9:15 AM EDT BEDSIDE GLUCOSE Routine 06/23/2024 9:03 AM EDT BEDSIDE GLUCOSE Routine 06/23/2024 5:43 AM EDT DIGOXIN LEVEL Routine 06/23/2024 5:35 AM EDT COMPREHENSIVE METABOLIC PANEL Routine 06/23/2024 5:35 AM EDT MAGNESIUM Routine 06/22/2024 11:14 PM EDT ECG 12-LEAD Routine 06/22/2024 11:10 PM EDT BEDSIDE GLUCOSE Routine 06/22/2024 9:08 PM EDT POTASSIUM Routine 06/22/2024 6:10 PM EDT BEDSIDE GLUCOSE Routine 06/22/2024 2:40 PM EDT MAGNESIUM Add-On 06/22/2024 2:17 PM EDT IONIZED MAGNESIUM Routine 06/22/2024 2:1 7 PM EDT LIMITED ECHO F/U Routine 1:15 PM EDT BEDSIDE GLUCOSE Routine 06/22/2024 11:12 AM EDT US MFM BIOPHYSICAL PROFILE WO NST Routine 06/22/2024 9:58 AM EDT ECG 12-LEAD Timed 06/22/2024 7:29 AM EDT GENERIC SEND OUT LAB USE ONLY Routine 06/22/2024 5:49 AM EDT MAGNESIUM Routine 06/22/2024 5:49 AM EDT UNLISTED LAB TEST STAT 06/22/2024 5:4 9 AM EDT DIGOXIN LEVEL Routine 06/22/2024 5:49 AM EDT COMPREHENSIVE METABOLIC PANEL Routine 06/22/2024 5:49 AM EDT BEDSIDE GLUCOSE Routine 06/22/2024 5:08 AM EDT ECG 12-LEAD STAT 06/21/2024 7:56 PM EDT DIGOXIN LEVEL Routine 06/21/2024 6:19 PM EDT POTASSIUM Routine 06/21/2024 6:19 PM EDT MAGNESIUM Routine 06/21/2024 6:19 PM EDT ECG 12-LEAD Timed 06/21/2024 3:05 PM EDT BEDSIDE GLUCOSE Routine 06/21/2024 2:45 PM EDT US MFM BIOPHYSICAL PROFILE WO NST Routine 06/21/2024 10:47 AM EDT BEDSIDE GLUCOSE Routine 06/21/2024 9:58 AM EDT ECG 12-LEAD Timed 06/21/2024 7:11 AM EDT MAGNESIUM Routine 06/21/2024 5:37 AM EDT COMPREHENSIVE METABOLIC PANEL Routine 06/21/2024 5:37 AM EDT BEDSIDE GLUCOSE Routine 06/21/2024 5:09 AM EDT MAGNESIUM Routine 06/20/2024 8:44 PM EDT POTASSIUM Routine 06/20/2024 8:44 PM EDT BEDSIDE GLUCOSE Routine 06/20/2024 7:34 PM EDT BEDSIDE GLUCOSE Routine 06/20/2024 3:58 PM EDT ECG 12-LEAD Timed 06/20/2024 3:16 PM EDT POTASSIUM STAT 06/20/2024 1:14 PM EDT MAGNESIUM STAT 06/20/2024 1:14 PM EDT DIGOXIN LEVEL Routine 06/20/2024 1:14 PM EDT BEDSIDE GLUCOSE Routine 06/20/2024 1:00 PM EDT MFM BIOPHYSICAL PROFILE WO NST Routine 06/20/2024 9:41 AM EDT MAGNESIUM Routine 06/20/2024 4:52 AM EDT COMPREHENSIVE METABOLIC PANEL Routine 06/20/2024 4:52 AM EDT ECG 12-LEAD Timed 06/19/2024 9:41 PM EDT BEDSIDE GLUCOSE Routine 06/19/2024 7:38 PM EDT MAGNESIUM Routine 06/19/2024 7:07 PM EDT POTASSIUM Routine 06/19/2024 7:07 PM EDT BEDSIDE GLUCOSE Routine 06/19/2024 2:48 PM EDT ECG 12-LEAD Timed 06/19/2024 2:03 PM EDT BEDSIDE GLUCOSE Routine 06/19/2024 12:17 PM EDT ECHO 2D WITH COLOR FLOW Routine 06/19/2024 11:12 AM EDT US MFM LMTD OB, 1 OR MORE FETUS Routine 06/19/2024 8:56 AM EDT MAGNESIUM Routine 06/19/2024 8:54 AM EDT POTASSIUM Routine 06/19/2024 6:52 AM EDT DIGOXIN LEVEL Routine 06/19/2024 6:07 AM EDT BEDSIDE GLUCOSE Routine 06/19/2024 5:11 AM EDT MAGNESIUM Routine 06/19/2024 12:56 AM EDT COMPREHENSIVE METABOLIC PANEL Routine 06/19/2024 12:56 AM EDT BEDSIDE GLUCOSE Routine 06/18/2024 8:04 PM EDT GENERIC SEND OUT LAB USE ONLY Routine 06/18/2024 6:52 PM EDT UNLISTED LAB TEST Routine 06/18/2024 6:5 2 PM EDT MAGNESIUM Routine 06/18/2024 4:53 PM EDT POTASSIUM Routine 06/18/2024 4:53 PM EDT DIGOXIN LEVEL Routine 06/18/2024 4:53 PM EDT BEDSIDE GLUCOSE Routine 06/18/2024 2:30 PM EDT US MFM BIOPHYSICAL PROFILE WO NST Routine 06/18/2024 11:25 AM EDT BEDSIDE GLUCOSE Routine 06/18/2024 10:33 AM EDT ECG 12-LEAD Timed 06/18/2024 7:21 AM EDT BEDSIDE GLUCOSE Routine 06/18/2024 6:03 AM EDT MAGNESIUM STAT 06/18/2024 5:39 AM EDT COMPREHENSIVE METABOLIC PANEL Routine 06/18/2024 5:39 AM EDT BEDSIDE GLUCOSE Routine 06/17/2024 7:05 PM EDT MAGNESIUM Routine 06/17/2024 6:53 PM EDT POTASSIUM Routine 06/17/2024 6:53 PM EDT BEDSIDE GLUCOSE Routine 06/17/2024 3:56 PM EDT BEDSIDE GLUCOSE Routine 06/17/2024 12:41 PM EDT POTASSIUM Routine 06/17/2024 10:52 AM EDT US MFM BIOPHYSICAL PROFILE WO NST Routine 06/17/2024 10:27 AM EDT ECG 12-LEAD Timed 06/17/2024 8:54 AM EDT BEDSIDE GLUCOSE Routine 06/17/2024 6:06 AM EDT DIGOXIN LEVEL STAT 06/17/2024 5:06 AM EDT COMPREHENSIVE METABOLIC PANEL Routine 06/17/2024 5:06 AM EDT BEDSIDE GLUCOSE Routine 06/16/2024 7:49 PM EDT ECG 12-LEAD Timed 06/16/2024 3:13 PM EDT BEDSIDE GLUCOSE Routine 06/16/2024 3:07 PM EDT BEDSIDE GLUCOSE Routine 06/16/2024 12:02 PM EDT US MFM LMTD OB, 1 OR MORE FETUS Routine 06/16/2024 9:25 AM EDT GENERIC SEND OUT LAB USE ONLY Routine 06/16/2024 7:35 AM EDT UNLISTED LAB TEST Routine 06/16/2024 7:3 5 AM EDT COMPREHENSIVE METABOLIC PANEL Routine 06/16/2024 5:27 AM EDT BEDSIDE GLUCOSE Routine 06/16/2024 5:26 AM EDT BEDSIDE GLUCOSE Routine 06/15/2024 8:17 PM EDT DIGOXIN LEVEL Routine 06/15/2024 7:55 PM EDT MAGNESIUM Routine 06/15/2024 6:38 PM EDT LIMITED ECHO F/U Routine 2:56 PM EDT BEDSIDE GLUCOSE Routine 06/15/2024 1:16 PM EDT GENERIC SEND OUT LAB USE ONLY Routine 06/15/2024 12:09 PM EDT ECG 12-LEAD Timed 06/15/2024 11:07 AM EDT BEDSIDE GLUCOSE Routine 06/15/2024 10:24 AM EDT MAGNESIUM Routine 06/15/2024 10:05 AM EDT US MFM LMTD OB, 1 OR MORE FETUS Routine 06/15/2024 9:08 AM EDT POTASSIUM Routine 06/15/2024 6:59 AM EDT BEDSIDE GLUCOSE Routine 06/15/2024 5:48 AM EDT MAGNESIUM Routine 06/15/2024 12:48 AM EDT POTASSIUM Routine 06/15/2024 12:48 AM EDT BEDSIDE GLUCOSE Routine 06/14/2024 7:15 PM EDT POTASSIUM STAT 06/14/2024 6:58 PM EDT MAGNESIUM STAT 06/14/2024 6:58 PM EDT BEDSIDE GLUCOSE Routine 06/14/2024 1:34 PM EDT BEDSIDE GLUCOSE Routine 06/14/2024 11:06 AM EDT BEDSIDE GLUCOSE Routine 06/14/2024 7:00 AM EDT MAGNESIUM Routine 06/14/2024 5:12 AM EDT BASIC METABOLIC PANEL Routine 06/14/2024 5:12 AM EDT POTASSIUM Routine 06/14/2024 12:14 AM EDT BEDSIDE GLUCOSE Routine 06/13/2024 8:02 PM EDT POTASSIUM Routine 06/13/2024 6:09 PM EDT MAGNESIUM Routine 06/13/2024 6:09 PM EDT BEDSIDE GLUCOSE Routine 06/13/2024 2:55 PM EDT ECG 12-LEAD Timed 06/13/2024 10:38 AM EDT BEDSIDE GLUCOSE Routine 06/13/2024 10:01 AM EDT MAGNESIUM Routine 06/13/2024 6:54 AM EDT BASIC METABOLIC PANEL Routine 06/13/2024 6:54 AM EDT BEDSIDE GLUCOSE Routine 06/13/2024 5:54 AM EDT ECG 12-LEAD Timed 06/12/2024 8:15 PM EDT DIGOXIN LEVEL Routine 06/12/2024 7:05 PM EDT POTASSIUM Routine 06/12/2024 7:05 PM EDT MAGNESIUM Routine 06/12/2024 7:05 PM EDT BEDSIDE GLUCOSE Routine 06/12/2024 6:30 PM EDT BEDSIDE GLUCOSE Routine 06/12/2024 1:09 PM EDT GLUCOSE TOLERANCE, 3 HOURS Routine 06/12/2024 10:08 AM EDT ECHO COMPLETE WO CONTRAST Routine 06/12/2024 10:03 AM EDT SECOND HOUR GLUCOSE TOLERANCE 100 GM LOAD Routine 06/12/2024 8:46 AM EDT GLUCOSE TOLERANCE, 1 HOUR Routine 06/12/2024 7:51 AM EDT BEDSIDE GLUCOSE Routine 06/12/2024 6:51 AM EDT MAGNESIUM Routine 06/12/2024 6:51 AM EDT BASIC METABOLIC PANEL Routine 06/12/2024 6:51 AM EDT GLUCOSE TOLERANCE, FASTING Routine 06/12/2024 6:51 AM EDT REPEATED ABORH Routine 06/12/2024 6:30 AM EDT DRUG SCREEN, URINE STAT 06/11/2024 5: 00 PM EDT ECHO 2D WITH COLOR FLOW Routine 06/11/2024 4:15 PM EDT PHOSPHORUS Add-On 06/11/2024 3:22 PM EDT SYPHILIS TOTAL(UNKNOWN SYPHILIS STATUS) STAT 06/11/2024 3:22 PM EDT MAGNESIUM Routine 06/11/2024 3:22 PM EDT VITAMIN D 25 HYDROXY Routine 06/11/2024 3:22 PM EDT COMPREHENSIVE METABOLIC PANEL Routine 06/11/2024 3:22 PM EDT CBC WITH AUTO DIFFERENTIAL Routine 06/11/2024 3:22 PM EDT REPEATED ABORH Routine 06/11/2024 3:00 PM EDT TYPE AND SCREEN Routine 06/11/2024 3:00 PM EDT US MFM COMPREHENSIVE ANATOMIC SURVEY Routine 06/11/2024 2:42 PM EDT Screening, , for anatomic survey TSH Routine 06/10/2024 ULTRASOUND OFFICE Routine 05/13/2024 11: 31 AM EDT from Last 3 Months Results * ECG 12 lead (07/17/2024 4:43 PM EDT) Only the most recent of24 resultswithin the time period is included. 07/17/2024 4:43 PM EDT Narrative [facility] - 07/26/2024 9:04 AM EDT us Aidan Rivera MD ECG ORDERABLES Edited Result - Final [facility] * MFM OB FOLLOW-UP, 1 FETUS (07/17/2024 2:06 PM EDT) Only the most recent of12 resultswithin the time period is included. Anatomical Region Laterality Modality OB-SPACE SCIENCES DIRECTOR Ultrasound 07/17/2024 1:11 PM EDT Narrative 07/17/2024 3:31 PM EDT NAME: SCOTTY CAMERON : 1995 SEX: F Accession Number: [id number] ORDERING PHYSICIAN: SILVESTRE SUÁREZ REFERRING PHYSICIAN: PHIL FIERRO Coding ----- --------- Procedures 80387: Follow-up Ultrasound, per fetus 21314: Echocardiography, , cardiovascular system, real time with image documentation (2D), with or without M-mode recording; follow-up or repeat study Indication ----- --------- Screening for follow-up survey, Persistent irregular rhythm, Screening for hydrops, Obesity in , Supervision of high risk . History ----- --------- OB History 2. Para 1 [id number] Maternal Assessment ----- --------- Physical Exam Height [...] EFW (oz) 13 oz EFW by: Hadlock ([id number]) Extended Tibia 58.8 mm 34w 2d 89% Samuel Animal Warden 6.1 mm Head / Face / Neck [...] Thorax RVOT view. LVOT view. 3-vessel view. 9-jtkkun-hnuxigl view. Right lung. Left lung. Abdomen Abdom. [...] view documented previously 3-vessel view documented previously 9-oewggy-ossmzbt view documented previously Aortic arch view documented [...] otherwise specified by MFM. Procedure Note Silvestre Suárez MD - 07/17/2024 NAME: SCOTTY CAMERON : 1995 SEX: F Accession Number: [id number] ORDERING PHYSICIAN: SILVESTRE SUÁREZ REFERRING PHYSICIAN: PHIL FIERRO Coding ----- --------- Procedures 90959: Follow-up Ultrasound, per fetus 45055: Echocardiography, , cardiovascular system, real timewith image documentation (2D), with or without M-mode recording; follow-up or repeat study Indication ----- --------- Screening for follow-up survey, Persistent irregular rhythm, Screening forhydrops, Obesity in , Supervision of high risk . History ----- --------- OB History 2. Para 1 [id number] Maternal Assessment ----- --------- Physical Exam Height [...] EFW (oz) 13 oz EFW by: Hadlock ([id number]) Extended Tibia 58.8 mm 34w 2d 89% Samuel Animal Warden 6.1 mm Head / Face / Neck [...] Thorax RVOT view. LVOT view. 3-vessel view. 3-vdlrwx-ddqbevtbrpp. Right lung. Left lung. Abdomen Abdom. wall. [...] view documented previously 3-vessel view documented previously 8-kuuygi-kdlvxgi view documented previously Aortic arch view documented [...] unless otherwise specified by MFM. us Silvestre Suárez MD IMG US ORDERABLES Final Re sult * Glucose random or fasting- POCT (07/06/2024) External Glucose Fasting Or Random (Fbs) 91 MANUALLY TRANSCRIBED RESULTS Blood Venous blood / Unknown 07/06/2024 us Michelle Valencia PA-C LAB BLOOD ORDERABLES Final Result MANUALLY TRANSCRIBED RESULTS * Ultrasound pelvic with transvaginal (07/02/2024 11:47 AM EDT) Anatomical Region Laterality Modality Body, Pelvis Ultrasound us Not In System Ref Prov IMG US ORDERABLES Final R esult * (ABNORMAL) Bedside Glucose *Place/Obtain serum glucose if >500 per glucometer. (06/28/2024 10:10AM EDT) Only the most recent of64 resultswithin the time period is included. Bedside Glucose (POC) 124(H) 65 - 99 mg/dL 06/28/2024 10:13 AM EDT [facility] arterial/capilla ry 06/28/2024 10:10 AM EDT 06/28/2024 10:13 AM EDT us Fuentes Stauffer MD POINT OF CARE TEST ORDERABLES Final Result [facility] [address] [place] [address], * (ABNORMAL) Comprehensive metabolic panel (06/28/2024 7:57 AM EDT) Only the most recent of14 resultswithin the time period is included. Pathologist [facility] BILIRUBIN,TOTAL 0.4 0.3 - 1.2 mg/dL 06/28/2024 8:57 AM EDT [facility] CALCIUM 9.0 8.5 - 10.5 mg/dL 06/28/2024 8:57 AM EDT [facility] CARBON DIOXIDE 21(L) 22 - 32 mmol/L 06/28/2024 8:57 AM T [facility] CHLORIDE 106 98 - 109 mmol/L 06/28/2024 8:57 AM T [facility] CREATININE 0.35(L) 0.40 - 1.00 mg/dL 06/28/2024 8:57 AM EDT [facility] Comment:METHOD TRACEABLE TO IDMS STANDARD GLUCOSE 94 65 - 99 mg/dL 06/28/2024 8:57 AM T [facility] ALKALINE PHOSPHATASE 74 39 - 130 U/L 06/28/2024 8:57 AM T [facility] POTASSIUM 3.6 3.5 - 5.0 mmol/L 06/28/2024 8:57 AM T [facility] TOTAL PROTEIN 5.7(L) 6.0 - 8.0 g/dL 06/28/2024 8:57 AM EDT [facility] SODIUM 139 134 - 146 mmol/L 06/28/2024 8:57 AM EDT [facility] AST 13 <=41 U/L 06/28/2024 8:57 AM EDT [facility] ALT 8 <=31 U/L 06/28/2024 8:57 AM EDT [facility] BLOOD UREA NITROGEN 6 5 - 23 mg/dL 06/28/2024 8:57 AM EDT [facility] ANION GAP 12 5 - 15 mmol/L 06/28/2024 8:57 AM EDT [facility] ALBUMIN 3.3 3.2 - 5.3 g/dL 06/28/2024 8:57 AM EDT [facility] EGFR Non-Race Dependent >90 >=60 ml/min/1.7 3sq.m 06/28/2024 8:57 AM EDT [facility] Comment: Reported eGFR is based on the CKD-EPI 2020 equation that does not use a race coefficient. Blood Venous blood / Unknown 06/28/2024 7:57 AM EDT 06/28/2024 7:57 AM EDT us Fuentes Stauffer MD LAB BLOOD ORDERABLES Final Res ult [facility] [address] [place] [address], * (ABNORMAL) Magnesium (06/27/2024 6:48 AM EDT) Only the most recent of29 resultswithin the time period is included. Magnesium 1.5(L) 1.8 - 2.6 mg/dL 06/27/2024 7:41 AM EDT [facility] PLASMA 06/27/2024 6:48 AM EDT 06/27/2024 6:49 AM EDT Aidan Rivera MD LAB BLOOD ORDERABLES F inal Result [facility] [address] [place] [address] * Limited Echo Follow Up (06/24/2024 2:46 PM EDT) Anatomical Region Laterality Modality Chest N/A Ultrasound Narrative 06/26/2024 2:15 PM EDT Gestational age 29 weeks and 5 days Normal intracardiac anatomy with normal myocardial function Small pericardial effusion unchanged No evidence of hydrops Recommend re-evaluation as per protocol. Procedure Info: Echocardiography Report. Image quality is good. 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 There is levocardia. The heart is located in the left chest. The cardiac apex points to the left. Systemic Veins: Not assessed in this study Right Atrium: The right atrium has normal size and appearance. Tricuspid Valve: The tricuspid valve appears normal. Trivial tricuspid valve regurgitation Right Ventricle: The right ventricle has a normal size, wall thickness, and systolic function. Pulmonary valve and Artery Not assessed in this study Septal Defects: There is a patent foramen ovale (PFO). There is right -to-left shunting across the patent foramen ovale. The interventricular septum appears intact with no evidence of ventricular level shunting. Pulmonary Veins: Not assessed in this study Left Atrium: The left atrium has normal size and appearance. Mitral Valve: The Mitral valve appears normal. Left Ventricle: The left ventricle has normal has normal size, wall thickness, and systolic function. Aortic Valve: Not assessed in study Aorta and Ductus: Not assessed in this study Rhythm: Normal sinus rhythm with an average heart rate of 125 beats per minute. Other: Small circumferential pericardial effusion more anterior than posterior. Miscellaneous: Small septal defects, minor valve abnormalities and post- development of coarctation may not be evident during cardiac examination. Summary Normal intracardiac anatomy and function Normal atrioventricular coupling with normal heart rate Follow-up: surveillance as deemed necessary Study Details A limited echocardiogram was performed us Jovani Stubbs MD CV ECHO ORDERABLES Final Res ult * Potassium (06/24/2024 8:21 AM EDT) Only the most recent of18 resultswithin the time period is included. Potassium, Bld 3.7 3.5 - 5.0 mmol/L 06/24/2024 9:33 AM EDT [facility] PLASMA 06/24/2024 8:21 AM EDT 06/24/2024 8:22 AM EDT us Jovani Stubbs MD LAB BLOOD ORDERABLES Final R esult Performing Organization Address City/[facility]/ZIP Co de Phone Number [facility] [address] [place] [address], [address] [address] * Digoxin level (06/24/2024 5:32 AM EDT) Only the most recent of10 resultswithin the time period is included. Digoxin Lvl 1.3 0.8 - 2.0 ng/mL 06/24/2024 6:46 AM EDT [facility] PLASMA 06/24/2024 5:32 AM EDT 06/24/2024 5:33 AM EDT us Cathleen Perez MD LAB BLOOD ORDERABLES Final Resul t Performing Organization Address City/[facility] Co de Phone Number [facility] [address] [place] [address], [address] [place] [id number] * Type and screen(includes indirect radha) (06/24/2024 12:00 AM EDT) Only the most recent of2 resultswithin the time period is included. ABO O 06/24/2024 12:57 AM EDT [facility] RH Positive 06/24/2024 12:57 AM EDT [facility] Antibody Screen Negative 06/24/2024 12:57 AM EDT [facility] 06/24/2024 12:0 0 AM EDT us Estelle Avila DO BLOOD BANK TEST ORDERABLES Edited Result - Final [facility] [address] [place] [address], [place] * Ionized magnesium (06/22/2024 2:17 PM EDT) Magnesium, ionized 0.45 0.45 - 0.74 mmol/L 06/22/2024 2:35 PM EDT [facility] Comment:NEW REFERENCE RANGE PLASMA 06/22/2024 2:17 PM EDT 06/22/2024 2:18 PM EDT us Estefani Olea MD LAB BLOOD ORDERABLES Final Res ult [facility] [address] [place] [address] * Limited Echo Follow Up (06/22/2024 1:15 PM EDT) Anatomical Region Laterality Modality Chest N/A Ultrasound Narrative 06/22/2024 2:09 PM EDT Structurally normal heart Supraventricular tachycardia with 1:1 conduction A) heart rate: 205-217 bpm Mild tricuspid regurgitation Normal biventricular dimension and systolic function No evidence of pericardial effusion Limited study Left Ventricle Left ventricle size is normal. Normal left ventricular wall thickness. Normal left ventricular systolic function. Right Ventricle Right ventricle size is normal. Normal right ventricular wall thickness. Normal right ventricular systolic function. Left Atrium Left atrium size is normal. Right Atrium Right atrium size is normal. IVC/SVC Inferior vena cava drains into the right atrium. Right superior vena cava drains into the right atrium. Mitral Valve Normal mitral valve. No mitral valve regurgitation. No mitral valve stenosis. Tricuspid Valve Normal tricuspid valve. Trivial tricuspid valve insufficiency. No tricuspid valve stenosis. Aortic Valve Normal trileaflet aortic valve. No aortic valve insufficiency. No valvular aortic stenosis. Pulmonic Valve Normal pulmonary valve. Trivial pulmonary valve insufficiency. No pulmonary valve stenosis. Ascending Aorta The aortic root is normal size. Left aortic arch. No evidence coarctation of the aorta. Pericardium No pericardial effusion. No pleural effusion. Congenital Pulmonary Structures All pulmonary veins were visualized draining to the left atrium. Congenital Coronary Vessels Right coronary artery arises normally from the right coronary cusp. Left main coronary artery arises normally from the left coronary cusp. Pulmonary Artery Right pulmonary artery is normal in size. Left pulmonary artery is normal in size. Main pulmonary artery is normal in size. No right pulmonary artery stenosis. No left pulmonary artery stenosis. Atrial Septum Patent foramen ovale with right to left shunt Ventricular Septum Intact ventricular septum. Patent Ductus Arteriosus No evidence of a patent ductus arteriosus. Segmental Anatomy Atrial situs solitus. Abdominal situs solitus. D-looped ventricles present. Normally positioned great arteries. Levocardia. Study Details Study quality was good. A echocardiogram was performed. us Estefani Olea MD CV ECHO ORDERABLES Final Resul t * Unlisted Lab Test Flecainide level (06/22/2024 5:49 AM EDT) Only the most recent of3 resultswithin the time period is included. Unlisted lab test Sent to reference lab 06/22/2024 8:01 AM EDT [facility] MISCELLANEOUS 06/22/2024 5:4 9 AM EDT 06/22/2024 5:50 AM EDT us Elvira Patel MD LAB BLOOD ORDERABLES Final Res ult [facility] * Generic Send Out Lab Use Only (06/22/2024 5:49 AM EDT) Only the most recent of4 resultswithin the time period is included. Test name ALBERTO MCFADDEN ON NO GEL SERUM 06/22/2024 8:07 AM EDT [facility] Test result SEE COMMENTS 06/23/2024 12:49 PM 06/23/2024 1:49 PM EDT [facility] Comment: NOTE Test Result Flag Unit RefValue Flecainide, S 0.5 mcg/mL REFERENCE VALUE 0.2 - 1.0 (Therapeutic concentration, trough value), >1.0 (Toxic concentration, trough value) ADDITIONAL INFORMATION This test was developed and its performance characteristics determined by [facility] in a manner consistent with CLIA requirements. This test has not been cleared or approved by the U.S. Food and Drug Administration. Test Performed by: [facility] [address] [place] [address] Chief Cruiser: Mino Cain Ph.D.; CLIA# [id number] MISCELLANEOUS 06/22/2024 5:4 9 AM EDT 06/22/2024 5:50 AM EDT us Elvira Patel MD LAB ORDERABLES Final Result [facility] * echo 2D W/ color flow (06/19/2024 11:12 AM EDT) Anatomical Region Laterality Modality Chest N/A Ultrasound Narrative 06/19/2024 1:21 PM EDT Gestational age 28 weeks and 6 days Normal intracardiac anatomy with normal myocardial function Sustained supra ventricular tachycardia with one-to-one conduction with heart rate 208 BPM Recommend weekly surveillance as necessary This is a limited ECHO to evaluate heart rhythm, rate and function Procedure Info: Echocardiography Report. Image quality is good. 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 There is levocardia. The heart is located in the left chest. The cardiac apex points to the left. Systemic Veins: There are normal systemic venous connections, with the superior and inferior Vena Cava returning to the right atrium. Right Atrium: The right atrium has normal size and appearance. Tricuspid Valve: The tricuspid valve appears normal. Tricuspid valve annulus measures 9.24 mm ; Z-score 0.38 Right Ventricle: The right ventricle has a normal size, wall thickness, and systolic function. Pulmonary valve and Artery The pulmonary valve, main and branch pulmonary arteries are normal. Pulmonary valve annulus measures 6.21 mm ; Z-score of 1.57. The left pulmonary artery measures 3.68 mm; Z-score 0.91. The right pulmonary artery measures 3.38 mm; Z-score -0.08 Septal Defects: There is a patent foramen ovale (PFO). There is right -to-left shunting across the patent foramen ovale. The interventricular septum appears intact with no evidence of ventricular level shunting. Pulmonary Veins: The right upper pulmonary vein drains normally to the left atrium. The left Lower pulmonary vein drains normally to the left atrium. Left Atrium: The left atrium has normal size and appearance. Mitral Valve: The Mitral valve appears normal. Mitral valve annulus measures 8.95 mm with a Z-score of 0.81 Left Ventricle: The left ventricle has normal has normal size, wall thickness, and systolic function. Aortic Valve: The left ventricular outflow tract and aortic valve are normal. Aortic valve measures 4.74 mm ; Z-score 1.25 Aorta and Ductus: Normal left sided aortic arch with no coarctation or dilation. There is a left-sided patent ductus arteriosus. There is pulmonary artery to descending aorta shunt across the patent ductus arteriosus. Rhythm: Multiple episodes of atrial tachycardia (one-to-one conduction ) rates 2142-34 beats per minute; suspect AV RT with rare normal atrioventricular coupling with normal heart rate Other: No pericardial effusion Miscellaneous: Small septal defects, minor valve abnormalities and post- development of coarctation may not be evident during cardiac examination. Summary Normal intracardiac anatomy and function Multiple episodes of atrial tachycardia (one-to-one conduction suspect AV RT with rare normal atrioventricular coupling with normal heart rate Mildly increased cardiothoracic index (0.53) PFO with right to left shunting PDA with right to left shunting Follow-up: weekly as necessary Study Details Study quality was good. A echocardiogram was performed. us Jovani Stubbs MD CV ECHO ORDERABLES Final Res ult * Limited Echo Follow Up (06/15/2024 2:56 PM EDT) Anatomical Region Laterality Modality Chest N/A Ultrasound Narrative 06/15/2024 4:48 PM EDT Gestational age 28 weeks and 3 days Normal intracardiac anatomy with normal myocardial function Small posterior pericardial effusion No evidence of hydrops Recommend surveillance as necessary. Procedure Info: Echocardiography Report. Image quality is good. 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 There is levocardia. The heart is located in the left chest. The cardiac apex points to the left. Systemic Veins: There are normal systemic venous connections, with the superior and inferior Vena Cava returning to the right atrium. Right Atrium: The right atrium has normal size and appearance. Tricuspid Valve: The tricuspid valve appears normal.No tricuspid valve regurgitation. Right Ventricle: The right ventricle has a normal size, wall thickness, and systolic function. Septal Defects: There is a patent foramen ovale (PFO). There is right -to-left shunting across the patent foramen ovale. The interventricular septum appears intact with no evidence of ventricular level shunting. Left Atrium: The left atrium has normal size and appearance. Mitral Valve: The Mitral valve appears normal. Left Ventricle: The left ventricle has normal has normal size, wall thickness, and systolic function. Aortic Valve: The left ventricular outflow tract and aortic valve are normal. Rhythm: Supra ventricular tachycardia with one-to-one conduction at a rate of 203 beats per minute Other: Small anterior pericardial effusion No pleural effusion Atrial kick in the ductus venosus (unchanged) Miscellaneous: Small septal defects, minor valve abnormalities and post- development of coarctation may not be evident during cardiac examination. Summary Normal intracardiac anatomy and function Supra ventricular tachycardia with one-to-one conduction at a rate of 203 beats per minute Mildly increased cardiothoracic index (unchanged from previous Follow-up: As necessary Study Details A echocardiogram was performed. us Aidan Rivera MD CV ECHO ORDERABLES Fin al Result * Basic Metabolic Panel (06/14/2024 5:12 AM EDT) Only the most recent of3 resultswithin the time period is included. Sodium 140 134 - 146 mmol/L 06/14/2024 6:51 AM EDT [facility] Potassium, Bld 3.8 3.5 - 5.0 mmol/L 06/14/2024 6:51 AM EDT [facility] Chloride 106 98 - 109 mmol/L 06/14/2024 6:51 AM EDT [facility] CO2 24 22 - 32 mmol/L 06/14/2024 6:51 AM EDT [facility] Anion gap 10 5 - 15 mmol/L 06/14/2024 6:51 AM EDT [facility] BUN 8 5 - 23 mg/dL 06/14/2024 6:51 AM EDT [facility] Creatinine 0.41 0.40 - 1.00 mg/dL 06/14/2024 6:51 AM EDT [facility] Comment:METHOD TRACEABLE TO IDMS STANDARD Glucose 97 65 - 99 mg/dL 06/14/2024 6:51 AM EDT [facility] Calcium 9.1 8.5 - 10.5 mg/dL 06/14/2024 6:51 AM EDT [facility] eGFR (CKD-EPI)non-ra ce dependent >90 >59 ml/min/1.7 3sq.m 06/14/2024 6:51 AM EDT [facility] Comment: Reported eGFR is based on the CKD-EPI 2020 equation that does not use a race coefficient. PLASMA 06/14/2024 5:12 AM EDT 06/14/2024 5:13 AM EDT us Estefani Olea MD LAB BLOOD ORDERABLES Final Res ult [facility] [address] [facility], [address] [place] [address] * (ABNORMAL) Glucose tolerance, 3 hours (06/12/2024 10:08 AM EDT) Glucose, GTT - 3 Hour 123(H) 65 - 99 mg/dL 06/12/2024 11:00 AM EDT [facility] PLASMA 06/12/2024 10:0 8 AM EDT 06/12/2024 10:09 AM EDT us Kendrick Mahoney MD LAB BLOOD ORDERABLES Final Re sult [facility] [address] [place] [address] * Echo complete W/O contrast (06/12/2024 10:03 AM EDT) LVOT stroke volume 64.40 ml XCELERA LV Systolic Volume 16.90 mL XCELERA EF 65 % [facility] FS 33 28 - 44 % [facility] LV Diastolic Volume 48.40 mL [facility]A LVIDd 4.20 4.72 - 6.55 cm XCELERA LVIDs 2.80 2.78 - 4.21 cm XCELERA IVS 1.00 0.6 - 1.1 cm XCELERA PW 0.90 0.6 - 1.1 cm XCELERA LVOT diameter 2.00 cm XC[facility]A E/A ratio 0.97 XCELERA E wave deceleration time 124.00 msec XCELERA MV Peak E Carlos Manuel 88.30 cm/s XCELERA MV Peak A Carlos Manuel 91.00 cm/s XCELERA Aortic root 2.50 cm [facility]A TAPSE 2.69 cm XCELERA AV peak carlos manuel 141.00 cm/s XC[facility]A LVOT peak carlos manuel 1.26 m/s [facility]A AV VTI 25.40 cm X[facility]ERA LVOT peak VTI 20.50 cm XCELERA AV mean gradient 4.00 mmHg XCELERA AV peak gradient 7.95 mmHg XCELERA AV valve area 2.53 XCELERA MV mean gradient 2.00 mmHg XCELERA MV peak gradient 4.00 mmHg XCELERA MV VTI 28.80 cm XCELERA MV valve area by continuity eq 2.24 XCELERA MV pressure 1/2 time 36.00 ms XCELERA MV valve area p 1/2 method 6.11 cm2 XCELERA PV peak gradient 3.70 mmHg XCELERA Inferior Vena Cava Diameter 1.50 cm XCELERA LV ESV A4C 37.50 mL XCELERA Mitral Valve Max Velocity 1 cm/s XCELERA LV RWT 2D 42.86 XCELERA Echo EF Estimated 65 % XCELERA AV Velocity Ratio 0.81 XCELERA IVC proximal 15 cm XCELERA Left Ventricle Mass 127.69217 [id number] 7 g XCELERA Interventricular Septum Diastolic Thickness by 2D 10 cm XCELERA ZLVIDS -1.58 XCELERA ZLVIDD -2.80 XCELERA Energy loss index 9.57 XCELERA Anatomical Region Laterality Modality Chest N/A Ultrasound Narrative 06/12/2024 12:37 PM EDT Left Ventricle: Left ventricle appears normal in size. Systolic function is normal with an ejection fraction of 60-65%. Aortic Valve: There is no regurgitation or stenosis. Mitral Valve: There is trace regurgitation. There is no evidence of mitral valve stenosis. Tricuspid Valve: There is no regurgitation or stenosis. Left Ventricle Left ventricle appears normal in size. Wall thickness is normal. Systolic function is normal with an ejection fraction of 60-65%. No segmental wall motion abnormalities. Normal diastolic function is present. Right Ventricle Right ventricular size appears normal. Systolic function is normal. Normal tricuspid annular plane systolic excursion. Left Atrium Left atrium is normal in size. Right Atrium Right atrium is normal in size. IVC/SVC IVC appears normal. Mitral Valve Mitral valve structure is normal. There is trace regurgitation. There is no evidence of mitral valve stenosis. Tricuspid Valve Tricuspid valve appears to be normal. There is no regurgitation or stenosis. Insufficient regurgitant jet to assess right ventricular systolic pressure. However, no two-dimensional echo evidence of pulmonary hypertension appears present. Aortic Valve The aortic valve is trileaflet. There is no regurgitation or stenosis. Pulmonic Valve Pulmonic valve structure is grossly normal. There is no regurgitation or stenosis. The peak gradient is 3.70 mmHg. Ascending Aorta The aortic root is normal in size. Pericardium There is no pericardial effusion. Study Details A complete echo was performed using complete 2D. During the study the apical, parasternal, subcostal and suprasternal views were captured. The study was difficult due to patient's heart rhythm. Cardiac History: family hx of HOCM, us Estefani Olea MD CV ECHO ORDERABLES Final Resul t * (ABNORMAL) 2nd hr Glucose Tolerance 100 gm load (06/12/2024 8:46 AM EDT) Glucose, GTT - 2 Hour 175(H) 70 - 139 mg/dL 06/12/2024 10:05 AM EDT [facility] Comment: Fourth International Workshop Conference: Recommendations and Rationale for Screening and Diagnosis of Gestational Diabetes Mellitus 2 or more of the following must be met or exceeded for a positive diagnosis. FASTING >=95mg/dL 1hr post 100g load >=180mg/dL 2hr post 100g load >=155mg/dL 3hr post 100g load >=140mg/dL PLASMA 06/12/2024 8:46 AM EDT 06/12/2024 8:47 AM EDT us Kendrick Mahoney MD LAB BLOOD ORDERABLES Final Re sult Performing Organization Address [facility]/ZIP Co de Phone Number [facility] [address], [address] [place] [address] * (ABNORMAL) Glucose tolerance, 1 hour (06/12/2024 7:51 AM EDT) Glucose, GTT - 1 Hour 187(H) 120 - 170 mg/dL 06/12/2024 9:11 AM EDT [facility] PLASMA 06/12/2024 7:51 AM EDT 06/12/2024 7:52 AM EDT Kendrick Mahoney MD LAB BLOOD ORDERABLES Final Re sult [facility] [address], [address] [place] [address] * Glucose, tolerance fasting (06/12/2024 6:51 AM EDT) Glucose, GTT - Fasting 95 65 - 99 mg/dL 06/12/2024 8:05 AM EDT [facility] PLASMA 06/12/2024 6:51 AM EDT 06/12/2024 6:53 AM EDT us Kendrick Mahoney MD LAB BLOOD ORDERABLES Final Re sult Performing Organization Address [facility] Co de Phone Number [facility] [address], [address] [place] [address] * ABO Rh Repeat (06/12/2024 6:30 AM EDT) Only the most recent of2 resultswithin the time period is included. ABO O 06/12/2024 10:14 AM EDT [facility] RH Positive 06/12/2024 10:14 AM EDT [facility] 06/12/2024 6:30 AM EDT us Sue Curtis MD BLOOD BANK TEST ORDERABLES Fi nal Result Performing Organization Address City/[facility]/ZIP Co de Phone Number [facility] [address] [place] [address], [place] * Urine Drug Screen (06/11/2024 5:00 PM EDT) Amphetamine/metham phetamine Negative Negative^ Negative 06/11/2024 6:19 PM EDT [facility] Comment:AMPH/METH screening cut off = 1000 ng/mL Barbiturate Screen, Ur Negative Negative^ Negative 06/11/2024 6:19 PM EDT [facility] Comment:Barbiturates screeni ng cut off value = 200 ng/mL Benzodiazepine Screen, Urine Negative Negative^ Negative 06/11/2024 6:19 PM EDT [facility] Comment:Benzodiazepines scre ening cut off value = 200 ng/mL THC, urine Negative Negative^ Negative 06/11/2024 6:19 PM EDT [facility] Comment:Cannabinoids/THC scr eening cut off value = 50 ng/mL Cocaine (metabolite) Negative Negative^ Negative 06/11/2024 6:19 PM EDT [facility] Comment:Cocaine screening cu t off value = 300 ng/mL Opiate Quant, Ur Negative Negative^ Negative 06/11/2024 6:19 PM EDT [facility] Comment: Opiates screening cut off value = 300 ng/mL NOTE: This test is used for the detection of codeine, hydrocodone (>1000 ng/mL), morphine and hydromorphone (>900 ng/mL) in urine. Phencyclidine Negative Negative^ Negative 06/11/2024 6:19 PM EDT [facility] Comment:Phencyclidine screen ing cut off value = 25 ng/mL Oxycodone Negative Negative^ Negative 06/11/2024 6:19 PM EDT [facility] Comment: Oxycodone screening cut off value = 300 ng/mL NOTE: This test is used for the detection of oxycodone and oxymorphone in urine. Methadone Negative Negative^ Negative 06/11/2024 6:19 PM EDT [facility] Comment:Methadone screening cut off value = 300 ng/mL. Ecstasy Negative Negative^ Negative 06/11/2024 6:19 PM EDT [facility] Comment: Ecstasy screening cut off value = 500 ng/mL This report is intended for use in clinical monitoring or management of patients. Urine / Unknown 06/11/2024 5 :00 PM EDT 06/11/2024 5:41 PM EDT us Kendrick Mahoney MD URINE ORDERABLES Final Result [facility] [address] [place] [address] * echo 2D W/ color flow (06/11/2024 4:15 PM EDT) Anatomical Region Laterality Modality Chest N/A Ultrasound Narrative 06/12/2024 3:17 PM EDT Gestational age 27 weeks and 6 days Normal intracardiac anatomy with normal myocardial function Frequent episodes of supra ventricular tachycardia with one-to-one conduction Recommend weekly surveillance as necessary Procedure Info: Echocardiography Report. Image quality is good. 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 There is levocardia. The heart is located in the left chest. The cardiac apex points to the left. Systemic Veins: There are normal systemic venous connections, with the superior and inferior Vena Cava returning to the right atrium. Right Atrium: The right atrium has normal size and appearance. Tricuspid Valve: The tricuspid valve appears normal. Tricuspid valve annulus measures 9.24 mm ; Z-score 0.38 Right Ventricle: The right ventricle has a normal size, wall thickness, and systolic function. Pulmonary valve and Artery The pulmonary valve, main and branch pulmonary arteries are normal. Pulmonary valve annulus measures 6.21 mm ; Z-score of 1.57. The left pulmonary artery measures 3.68 mm; Z-score 0.91. The right pulmonary artery measures 3.38 mm; Z-score -0.08 Septal Defects: There is a patent foramen ovale (PFO). There is right -to-left shunting across the patent foramen ovale. The interventricular septum appears intact with no evidence of ventricular level shunting. Pulmonary Veins: The right upper pulmonary vein drains normally to the left atrium. The left Lower pulmonary vein drains normally to the left atrium. Left Atrium: The left atrium has normal size and appearance. Mitral Valve: The Mitral valve appears normal. Mitral valve annulus measures 8.95 mm with a Z-score of 0.81 Left Ventricle: The left ventricle has normal has normal size, wall thickness, and systolic function. Aortic Valve: The left ventricular outflow tract and aortic valve are normal. Aortic valve measures 4.74 mm ; Z-score 1.25 Aorta and Ductus: Normal left sided aortic arch with no coarctation or dilation. There is a left-sided patent ductus arteriosus. There is pulmonary artery to descending aorta shunt across the patent ductus arteriosus. Rhythm: Multiple episodes of atrial tachycardia (one-to-one conduction ) rates 2142-34 beats per minute; suspect AV RT with rare normal atrioventricular coupling with normal heart rate Other: No pericardial effusion Miscellaneous: Small septal defects, minor valve abnormalities and post-tenzin development of coarctation may not be evident during cardiac examination. Summary Normal intracardiac anatomy and function Multiple episodes of atrial tachycardia (one-to-one conduction suspect AV RT with rare normal atrioventricular coupling with normal heart rate Mildly increased cardiothoracic index (0.53) PFO with right to left shunting PDA with right to left shunting Follow-up: weekly as necessary Study Details Study quality was good. A echocardiogram was performed. us Aidan Rivera MD CV ECHO ORDERABLES Fin al Result * Syphilis Total(Unknown Syphilis Status) (06/11/2024 3:22 PM EDT) [facility] Syphilis Total <0.2 0.0 - 0.8 AI 06/11/2024 7:23 PM EDT [facility] Comment: NON REACTIVE No serologic evidence of infection to Treponema pallidum (syphilis). Repeat testing may be considered in patients with suspected acute or primary syphilis in 2 to 4 weeks. Serum / Unknown 06/11/2024 3 :22 PM EDT 06/11/2024 3:24 PM EDT us Kendrick Mahoney MD LAB BLOOD ORDERABLES Final Re sult [facility] [address], [address] [place] [address] * (ABNORMAL) CBC auto differential (06/11/2024 3:22 PM EDT) [facility] White Blood Cells 8.9 4.0 - 11.0 X10E9/L 06/11/2024 3:50 PM EDT [facility] RBC count 4.30 3.80 - 5.20 X10E12/L 06/11/2024 3:50 PM EDT [facility] Hemoglobin 12.3 11.7 - 15.5 g/dL 06/11/2024 3:50 PM EDT [facility] Hematocrit 36.3 35 - 47 % 06/11/2024 3:50 PM EDT [facility] MCV 85 80 - 100 fL 06/11/2024 3:50 PM EDT [facility] MCH 28.6 27 - 34 pg 06/11/2024 3:50 PM EDT [facility] MCHC 33.8 32 - 36 g/dL 06/11/2024 3:50 PM EDT [facility] RDW 13.8 11.5 - 15.0 % 06/11/2024 3:50 PM EDT [facility] Platelets 231 150 - 450 X10E9/L 06/11/2024 3:50 PM EDT [facility] MPV 7.1 7 - 12 fL 06/11/2024 3:50 PM EDT [facility] % neutrophils 75.2 % 06/11/2024 3:50 PM EDT [facility] % lymphocytes 18.3 % 06/11/2024 3:50 PM EDT [facility] % monocytes 5.7 % 06/11/2024 3:50 PM EDT [facility] % eosinophils 0.4 % 06/11/2024 3:50 PM EDT [facility] % Basophils 0.4 % 06/11/2024 3:50 PM EDT [facility] Neutrophils Absolute (A) 6.7(H) 1.5 - 6.6 X10E9/L 06/11/2024 3:50 PM EDT [facility] Lymphocytes Absolute 1.6 1.0 - 3.5 X10E9/L 06/11/2024 3:50 PM EDT [facility] Monocytes Absolute 0.5 0 - 0.9 X10E9/L 06/11/2024 3:50 PM EDT [facility] Eosinophils Absolute 0.0 0.0 - 0.4 X10E9/L 06/11/2024 3:50 PM EDT [facility] Basophils Absolute 0.0 0.0 - 0.2 X10E9/L 06/11/2024 3:50 PM EDT [facility] Blood / Unknown 06/11/2024 3 :22 PM EDT 06/11/2024 3:24 PM EDT Kendrick Mahoney MD LAB BLOOD ORDERABLES Final Re sult [facility] [address] [place] [address], [facility] [address] [place] [address] * (ABNORMAL) Vitamin D 25 hydroxy (06/11/2024 3:22 PM EDT) Vit D, 25-Hydroxy 23.3(L) 30 - 100 ng/mL 06/11/2024 4:27 PM EDT [facility] Comment: Vitamin D status 25 [place] Vitamin D Deficiency <20 ng/mL Insufficiency 20-29 ng/mL Sufficiency 30-100 ng/mL Toxicity >100 ng/mL NOTE: A pediatric reference range has not been established by the senior science consultant of this kit. The [place] [employer] recommends a Vitamin D level of = or >20ng/mL in infants and children. PLASMA 06/11/2024 3:22 PM EDT 06/11/2024 3:24 PM EDT us Kendrick Mahoney MD LAB BLOOD ORDERABLES Final Re sult Performing Organization Address City/[facility]/ZIP Co de Phone Number [facility] [address] [place] [address], [facility] [address] [place] [address] * Phosphorus (06/11/2024 3:22 PM EDT) Phosphorus 4.0 2.4 - 4.9 mg/dL 06/11/2024 5:33 PM EDT [facility] PLASMA 06/11/2024 3:22 PM EDT 06/11/2024 3:24 PM EDT us Kendrick Mahoney MD LAB BLOOD ORDERABLES Final Re sult [facility] [address] [place] [address] * TSH (06/10/2024) Thyroid Stimulating (3Rd Generation) Hormone/ Tsh 1.480 MANUALLY TRANSCRIBED RESULTS us Not In System Ref Prov LAB BLOOD ORDERABLES Oralia chisholm Result Performing Organization Address City/[facility]/ZIP Co de Phone Number MANUALLY TRANSCRIBED RESULTS * Ultrasound - Office (05/13/2024 11:31 AM EDT) Anatomical Region Laterality Modality AMB Ultrasound us Not In System Ref Prov IMG US ORDERABLES Final R esult from Last 3 Months Insurance [employer] Care Teams Packing Checker Relationship Specialty Start Date End Date Sarah Queen, PROBATION MANAGER-[employer] ASSISTANT MANAGER [address] [place] [address] PCP - General Internal Medicine 09/03/23
--- OUTSIDE RECORDS SUMMARY | 2024-07-27 18:13 | XMS_ITS | Encounter Summary ---
Author Organization [facility] Address [address] [place] [address] Care Team Providers Care Superintendent Compressor Stations Name Role Phone Terrence Mcintyre MD Primary Care Provider + [phone] Encounter Details Date Type Department Care Team (Late st Contact Info) Description 04/30/2024 Orders Only [facility] [address] [place] [phone] Annie Keith MA [address] [place] [address] [place] [address] Social History Tobacco Use Types Packs/Day Years [...] PM EDT Routine [facility] [address] [place] [phone] Chelsea Carson PA [address] [place], [place] [phone] documented as of this encounter Procedures Procedure Name Priority Date/Time Associated Diagnosis Comments PAP SMEAR Routine 04/15/2024 12:00 AM EST documented in this encounter Results * Pap Smear (04/15/2024 12:00 AM EST) Swab Cervical swab / Unknown us Chelsea [facility] CYTOLOGY ORDERABLES Final Re sult [facility] documented in this encounter Visit Diagnoses Not on filedocumented in this encounter Care Teams Superintendent Compressor Stations Relationship Specialty Start Date End Date Terrence Mcintyre MD PCP - General Family Medicine 02/11/24 documented as of this encounter
--- OUTSIDE RECORDS SUMMARY | 2024-07-27 18:13 | XMS_ITS | Encounter Summary ---
Author Organization [facility] tem Address [id number] [address] [place] [address] Care Team Providers Care Front Window Cashier Name Role Phone Sarah Queen Arnaud CHEESEMAKING LABORER-RE DYE HAND Primary Care Provider + Encounter Details Date Type Department Care Team (Late st Contact Info) Description 07/06/2024 Documentation Maternal- Medicine at [facility] [address] [place] [phone] Hayley Conner RDMS Social History Tobacco Use Types Packs/Day Years [...] Health Services - Women's Services [address] [place] [phone] Shira Staples MD [address] [facility] [place] [address] 08/07/2024 3:30 PM EDT Appointment [facility] [address] [facility] [place] [address] documented as of this encounter Visit Diagnoses Not on filedocumented in this encounter Additional Health Concerns Assessment Noted Time PHQ-9 Depression Total Score: 0 05/29/19 23 11:03 AM EDT documented as of this encounter Care Teams Front Window Cashier Relationship Specialty Start Date End Date Sarah Queen, CHEESEMAKING LABORER-RE DYE HAND [address] [place] [address] PCP - General Internal Medicine 09/03/23 documented as of this encounter
--- OUTSIDE RECORDS SUMMARY | 2024-07-27 18:13 | XMS_ITS | Encounter Summary ---
Author Organization [facility] Address [address] [place] [address] Care Team Providers Care Forms Examiner Name Role Phone Terrence Mcintyre MD Primary Care Provider + [phone] Encounter Details Date Type Department Care Team (Late st Contact Info) Description 06/11/2024 External Result Encounter [facility] [address] [facility] [place] [address] Phil Fierro DO [address] [place] [address] Dr Ralph Dominguez, [facility]11 Social History Tobacco Use Types Packs/Day Years [...] 2:50 PM EDT Routine [facility] [address] [place], [place] [address] [address] Chelsea Carson PA [address] [facility] [place] [address] documented as of this encounter Procedures Procedure Name Priority Date/Time Associated Diagnosis Comments US OB 14+ WEEKS ANATOMY SCAN 06/11/2024 4:38 PM EDT documented in this encounter Results * US OB 14+ weeks anatomy scan (06/11/2024 4:38 PM EDT) Anatomical Region Laterality Modality Body Ultrasound 06/11/2024 4:38 PM EDT Narrative 06/11/2024 4:38 PM EDT THIS EXAM WAS PERFORMED AT [facility] NAME: SCOTTY CAMERON : 1995 SEX: F Accession Number: [id number] ORDERING PHYSICIAN: PHIL FIERRO REFERRING PHYSICIAN: PHIL FIERRO Coding ----- --------- Procedures 06624: Ultrasound, uterus, real time with image documentation, and maternal evaluation plus detailed anatomic examination, transabdominal approach;single or first gestation 47138: Echocardiography, , cardiovascular system, real time with image documentation (2D), with or without M-mode recording Indication ----- --------- Screening for Anatomic Survey , tachycardia, Polyhydramnios History ----- --------- OB History 2. Para 1 [id number] Maternal Assessment ----- --------- Physical Exam Height 157 cm, 5 ft 2 in. Weight 93 kg, 205 lb. BMI 37.50 kg/m??? Method ----- --------- Transabdominal ultrasound examination. View: Suboptimal view: limited by position ----- --------- Ramírez . Number of fetuses: 1 Dating ----- --------- LMP on: 12/07/2023 GA by LMP 26 w + 5 d KYLEIGH by LMP: 09/12/2024 Previous Ultrasound on: 02/11/2024 Type of prior assessment: GA GA at prior assessment date 10 w + 4 d GA by previous U/S 27 w + 6 d KYLEIGH by previous Ultrasound: 09/04/2024 Ultrasound examination on: 06/11/2024 GA by U/S based upon: AC, BPD, Femur, HC GA by U/S 30 w + 0 d KYLEIGH by U/S: 08/20/2024 Assigned: based on ultrasound (GA), selected on 06/11/2024 Assigned GA 27 w + 6 d Assigned KYLEIGH: 09/04/2024 General Evaluation ----- --------- Cardiac activity Present. FHR 252 bpm. Presentation: cephalic Placenta: Placental site: posterior, away from cervical os Umbilical cord: Cord vessels: 3 vessel cord. Insertion site: normal insertion Amniotic fluid: Amount of AF: polyhydramnios. MVP 9.3 cm Biometry ----- --------- BPD 75.0 mm 30w 1d 94% Hadlock OFD 98.3 mm 31w 5d >99% Samuel HC 277.7 mm 30w 3d 90% Hadlock Cerebellum tr 33.2 mm 28w 1d 62% Adelso AC 269.7 mm 31w 0d >99% Hadlock Femur 52.9 mm 28w 1d 43% Hadlock Humerus 50.3 mm 29w 3d 86% Samuel HC / AC 1.03 Weight Calculation: EFW 1,49 g 97% Hadlock 3 EFW (lb,oz) 3 lb 5 oz EFW by Hadlock ([id number]) Head / Face / Neck Biometry: Cephalic index 0.76 23% Nicolaides Photograph Finisher 5.8 mm CM 3.5 mm <1% Nicolaides Extremities / Bony Struc Biometry: FL / BPD 0.71 FL / HC 0.19 FL / AC 0.20 Tibia 49.4 mm 29w 4d 94% Samuel Anatomy ----- --------- The following structures appear normal: Head/Neck: Cranium. Lateral ventricles. Choroid plexus. Midline falx. Cavum septi pellucidi. Cerebellum. Cisterna magna. Parenchyma. Vermis. Face: Lips. Nose. Heart/Thorax: 4-chamber view. RVOT view. LVOT view. 3-vessel view. 3-bcspko-mdnteiv view. Right lung. Left lung. Diaphragm. Abdomen: Abdom. wall. Cord insertion. Stomach. Kidneys. Bladder. Small bowel. Large bowel. Genitals. Spine: Cervical spine. Thoracic spine. Lumbar spine. Sacral spine. Extremities/Skeleton: Right hand. Left upper arm. Left forearm. Left hand. Right upper leg. Right lower leg. Left upper leg. Left lower leg. Left foot. The following structures could not be adequately visualized: Heart / Thorax Great vessels. The following structures could not be examined: Head / Neck Neck. Face Profile. Nasal bone. Maxilla. Mandible. Orbits. Abdomen Right renal artery. Left renal artery. Extremities / Right upper arm. Right forearm. Right foot. Skeleton Echocardiogram ----- --------- Situs situs solitus (normal) Cardiac position normal Cardiac axis normal Cardiac size normal (approx. 1/3 of thoracic area) Cardiac rhythm abnormal 4-chamber view normal LVOT view normal RVOT view normal 3-vessel view normal 5-omyjtp-fghqvmr view normal Aortic arch view normal Ductal arch view normal Bicaval view normal Interventricular septum suboptimal Venous-atrial connections normal AV connections normal VA connections normal Pulmonary veins normal Right atrium normal Left atrium normal Atrial septum suboptimal Foramen ovale suboptimal Right ventricle normal Left ventricle normal Ventricular septum suboptimal Cross-over gr. arteries suboptimal Main PA the main pulmonary artery can be seen bifurcating into the ductus arteriosus and the right pulmonary artery Pulmonary arteries normal Linear insertion of AV valves no Pericardial effusion no Maternal Structures ----- --------- Uterus Visualized Cervix Visualized Approach - Transabdominal Right Ovary Not visualized Left Ovary Not visualized Cul de Sac Visualized. No free fluid visualized Impression ----- --------- Single viable intrauterine consistent with 27w 6d with an KYLEIGH of 09/04/2024. EFW measuring at the 97%. AC measures at the >99%. Intermittent block premature atrial contractions are visualized with episodes of tachycardia. Amniotic fluid MVP measures 9.3 cm. Recommendations ----- --------- Please see [facility] documentation from today. The patient is scheduled in four to six week(s) to complete anatomic survey and echocardiogram. Admit to Labor and Delivery for further evaluation. Subsequent follow up or other follow up as clinically determined by primary OB provider unless otherwise specified by [facility]. Results forwarded to ordering provider so they can follow up with the patient as necessary. Procedure Note Radiology, Radiologist, - 06/11/2024 THIS EXAM WAS PERFORMED AT [facility] NAME: SCOTTY CAMERON : 1995 SEX: F Accession Number: [id number] ORDERING PHYSICIAN: PHIL FIERRO REFERRING PHYSICIAN: PHIL FIERRO Coding ----- --------- Procedures 04408: Ultrasound, uterus, real time with imagedocumentation, and maternal evaluation plus detailed anatomic examination, transabdominalapproach;single or first gestation 85749: Echocardiography, , cardiovascular system, real timewith image documentation (2D), with or without M-mode recording Indication ----- --------- Screening for Anatomic Survey , tachycardia, Polyhydramnios History ----- --------- OB History 2. Para 1 [id number] Maternal Assessment ----- --------- Physical Exam Height 157 cm, 5 ft 2 in. Weight 93 kg, 205 lb. BMI 37.50kg/m??? Method ----- --------- Transabdominal ultrasound examination. View: Suboptimal view: limited byfetal position ----- --------- Ramírez . Number of fetuses: 1 Dating ----- --------- LMP on: 12/07/2023 GA by LMP 26 w + 5 d KYLEIGH by LMP: 09/12/2024 Previous Ultrasound on: 02/11/2024 Type of prior assessment: GA GA at prior assessment date 10 w + 4 d GA by previous U/S 27 w + 6 d KYLEIGH by previous Ultrasound: 09/04/2024 Ultrasound examination on: 06/11/2024 GA by U/S based upon: AC, BPD, Femur, HC GA by U/S 30 w + 0 d KYLEIGH by U/S: 08/20/2024 Assigned: based on ultrasound (GA), selected on 06/11/2024 Assigned GA 27 w + 6 d Assigned KYLEIGH: 09/04/2024 General Evaluation ----- --------- Cardiac activity Present. FHR 252 bpm. Presentation: cephalic Placenta: Placental site: posterior, away from cervical os Umbilical cord: Cord vessels: 3 vessel cord. Insertion site: normalinsertion Amniotic fluid: Amount of AF: polyhydramnios. MVP 9.3 cm Biometry ----- --------- BPD 75.0 mm 30w 1d 94% Hadlock OFD 98.3 mm 31w 5d >99% Samuel HC 277.7 mm 30w 3d 90% Hadlock Cerebellum tr 33.2 mm 28w 1d 62% Hill AC 269.7 mm 31w 0d >99% Hadlock Femur 52.9 mm 28w 1d 43% Hadlock Humerus 50.3 mm 29w 3d 86% Samuel HC / AC 1.03 Weight Calculation: EFW 1,49 g 97% Hadlock 3 EFW (lb,oz) 3 lb 5 oz EFW by Hadlock ([id number]) Head / Face / Neck Biometry: Cephalic index 0.76 23% Nicolaides Photograph Finisher 5.8 mm CM 3.5 mm <1% Nicolaides Extremities / Bony Struc Biometry: FL / BPD 0.71 FL / HC 0.19 FL / AC 0.20 Tibia 49.4 mm 29w 4d 94% Samuel Anatomy ----- --------- The following structures appear normal: Head/Neck: Cranium. Lateral ventricles. Choroid plexus. Midline falx.Cavum septi pellucidi. Cerebellum. Cisterna magna. Parenchyma. Vermis. Face: Lips. Nose. Heart/Thorax: 4-chamber view. RVOT view. LVOT view. 3-vessel view.4-qqegvk-ldwyfcx view. Right lung. Left lung. Diaphragm. Abdomen: Abdom. wall. Cord insertion. Stomach. Kidneys. Bladder. Smallbowel. Large bowel. Genitals. Spine: Cervical spine. Thoracic spine. Lumbar spine. Sacral spine. Extremities/Skeleton: Right hand. Left upper arm. Left forearm. Left hand.Right upper leg. Right lower leg. Left upper leg. Left lower leg. Left foot. The following structures could not be adequately visualized: Heart / Thorax Great vessels. The following structures could not be examined: Head / Neck Neck. Face Profile. Nasal bone. Maxilla. Mandible. Orbits. Abdomen Right renal artery. Left renal artery. Extremities / Right upper arm. Right forearm. Right foot. Skeleton Echocardiogram ----- --------- Situs situs solitus (normal) Cardiac position normal Cardiac axis normal Cardiac size normal (approx. 1/3 of thoracic area) Cardiac rhythm abnormal 4-chamber view normal LVOT view normal RVOT view normal 3-vessel view normal 8-zcqqay-moxzsla view normal Aortic arch view normal Ductal arch view normal Bicaval view normal Interventricular septum suboptimal Venous-atrial connections normal AV connections normal VA connections normal Pulmonary veins normal Right atrium normal Left atrium normal Atrial septum suboptimal Foramen ovale suboptimal Right ventricle normal Left ventricle normal Ventricular septum suboptimal Cross-over gr. arteries suboptimal Main PA the main pulmonary artery can be seen bifurcatinginto the ductus arteriosus and the right pulmonary artery Pulmonary arteries normal Linear insertion of AV valves no Pericardial effusion no Maternal Structures ----- --------- Uterus Visualized Cervix Visualized Approach - Transabdominal Right Ovary Not visualized Left Ovary Not visualized Cul de Sac Visualized. No free fluid visualized Impression ----- --------- Single viable intrauterine consistent with 27w 6d with an KYLEIGH of09/04/2024. EFW measuring at the 97%. AC measures at the >99%. Intermittent block premature atrial contractions are visualized withepisodes of tachycardia. Amniotic fluid MVP measures 9.3 cm. Recommendations ----- --------- Please see [facility] documentation from today. The patient is scheduled in four to six week(s) to complete anatomicsurvey and echocardiogram. Admit to Labor and Delivery for further evaluation. Subsequent follow up or other follow up as clinically determined byprimary OB provider unless otherwise specified by [facility]FM. Results forwarded to ordering provider so they can follow up with thepatient as necessary. us Phil Sri DO IMG OB US PROCEDURES Final Resul t documented in this encounter Visit Diagnoses Not on filedocumented in this encounter Care Teams Forms Examiner Relationship Specialty Start Date End Date Terrence Mcintyre MD PCP - General Family Medicine 02/11/24 documented as of this encounter
--- OUTSIDE RECORDS SUMMARY | 2024-07-27 18:13 | XMS_ITS | Encounter Summary ---
Author Organization [facility] Address [address] [facility] [place] [address] Care Team Providers Care Back Up Machine Operator Name Role Phone Terrence Mcintyre MD Primary Care Provider + [phone] Encounter Details Date Type Department Care Team (Late st Contact Info) Description 03/26/2024 Abstract [facility] OB [address] [facility] [address] Ronald Fieror DO [address] [place] [address] Dr Ralph Dominguez, [facility]11 Social History Tobacco Use Types Packs/Day [...] Description 07/29/2024 2:50 PM EDT Routine [facility] OB [address] [facility] [facility] [address] Chelsea Carson PA [address] [place], [place] [id number] documented as of this encounter Visit Diagnoses Not on filedocumented in this encounter Care Teams Back Up Machine Operator Relationship Specialty Start Date End Date Terrence Mcintyre MD PCP - General Family Medicine 02/11/24 documented as of this encounter
--- OUTSIDE RECORDS SUMMARY | 2024-07-27 18:13 | XMS_ITS | Encounter Summary ---
Author Organization [facility] Address [id number] [address] [place] [address] Care Team Providers Care Outgoing Inspector Name Role Phone Sarah Queen TUBE MAN-DIETETIC ASSISTANT Primary Care Provider + Encounter Details Date Type Department Care Team (Late st Contact Info) Description 07/22/2024 Orders Only [facility] Internal Medicine - Family Medicine [address] [place] [address] Ref Prov, [place] [address] Social History Tobacco Use Types Packs/Day Years [...] Health Services - Women's Services [address] [place] [address] Shira Staples MD [address] [facility] [place] [address] 08/07/2024 3:30 PM EDT Appointment [facility] Imaging [address] [place] [address] documented as of this encounter Procedures Procedure Name Priority Date/Time Associated Diagnosis Comments US PELVIC WITH TRANSVAGINAL Routine 07/02/2024 11:47 AM EDT documented in this encounter Results * Ultrasound pelvic with transvaginal (07/02/2024 11:47 AM EDT) Anatomical Region Laterality Modality Body, Pelvis Ultrasound us Not In System Ref Prov IMG US ORDERABLES Final R esult documented in this encounter Visit Diagnoses Not on filedocumented in this encounter Additional Health Concerns Assessment Noted Time PHQ-9 Depression Total Score: 0 05/29/19 23 11:03 AM EDT documented as of this encounter Care Teams Outgoing Inspector Relationship Specialty Start Date End Date Sarah Queen APRN-DIETETIC ASSISTANT [address] [place] [address] PCP - General Internal Medicine 09/03/23 documented as of this encounter
[2024-07-27 18:16] VITALS: BP 120/57; PULSE 91
== END 2024-07-27 18:44 | disposition home or self-care (01) ==
LOC: FBCO 18:10 → FBC 18:11
PROVIDERS: PCP Family Medicine; Visit Provider Obstetrics & Gynecology
DX: O40.3XX0 Polyhydramnios, third trimester, not applicable or unspecified (principal); Z3A.34 34 weeks gestation of pregnancy
CPT/HCPCS: 59025

== ENCOUNTER 2024-07-30 19:19 | Outpatient (OUT) | payer OTHER, SELFPAY ==
--- OUTSIDE RECORDS SUMMARY | 2024-07-17 12:47 | XMS_ITS | Encounter Summary ---
Author Organization [employer] [facility] tem Address [id number] [address] [place] [address] Care Team Providers Care Registered Midwife Name Role Phone Sarah Queen APRN-ELECTRONICS COMPUTER MECHANIC Primary Care Provider + Reason for Referral * Diagnostic Imaging (Routine) - Pending Review Specialty Diagnoses / Procedures Referred By Contac t Referred To Contact Maternal and Medicine Diagnoses Supraventricular tachycardia of fetus affecting management of Polyhydramnios affecting Procedures US [facility] with or without consult Berto Lowry MD [address] [address] Phone: tel: fax: Maternal- Medicine at [place] [address] [place] [address] Phone: tel: fax: Referral ID Status Reason Start Date Expiration Date V isits Requested Visits Authorized [id number] Pending Review 06/12/2024 06/12/2025 1 1 Reason for Visit * Diagnostic Imaging (Routine) - Pending Review Specialty Diagnoses / Procedures Referred By Contac t Referred To Contact Maternal and Medicine Diagnoses Supraventricular tachycardia of fetus affecting management of Polyhydramnios affecting Procedures [facility] with or without consult Berto Lowry MD [address] [facility], [address] [place] [address] Phone: tel: fax: Maternal- Medicine at [address] [facility] [place] [address] Phone: tel: fax: Referral ID Status Reason Start Date Expiration Date V isits Requested Visits Authorized [id number] Pending Review 06/12/2024 06/12/2025 1 1 Encounter Details Date Type Department Care Team (Latest Contact Info) Description 07/17/2024 12:47 PM EDT - 07/17/2024 4:33 PM EDT Hospital Encounter - [facility] US Imaging [address] [place] [address] Supraventricular tachycardia of fetus affecting [...] mouth every 12 (twelve) hours. 60 tablet 06/28/2024 famotidine (PEPCID) 40 mg tablet Take 1 tablet (40 mg total) by mouth in the morning. lancets 33 gauge miscIndications:D iet controlled gestational diabetes mellitus (GDM) in third trimester To check blood glucose fasting and 1 hour after each meal 200 each 06/26/2024 ondansetron (ZOFRAN) 4 mg tablet Take 1 tablet (4 mg total) by mouth every 8 (eight) hours as needed for nausea or vomiting. 20 tablet 05/28/2022 potassium chloride (K-TAB,KLOR-CON) 10 MEQ CR tablet Take 5 tablets (50 mEq total) by mouth in the morning. 150 tablet 06/28/2024 kb207-fzsh-iiuwz acid ( 19) 29 mg iron- 1 mg tablet,chewable Chew 1 tablet and swallow in the morning. sotaloL (BETAPACE) 160 mg tablet Take 1 tablet (160 mg total) by mouth every 12 (twelve) hours. 60 tablet 3 06/28/2024 magnesium oxide (MAGOX) 400 mg tablet Take 1 tablet (400 mg total) by mouth in the morning and 1 tablet (400 mg total) before bedtime. 60 tablet 3 06/28/2024 documented as of this encounter Plan of Treatment Upcoming Encounters Date Type Department Care Team (Late st Contact Info) Description 08/04/2024 9:00 AM EDT [facility] [address] [place] [address] Shira Staples MD [address] [place] [address], [address] [place] [address] 08/07/2024 3:30 PM EDT Appointment - [facility] US Imaging [address] [place] [address] documented as of this encounter Procedures Procedure Name Priority Date/Time Associated Diagnosis Comments US [facility] OB FOLLOW-UP, 1 FETUS Routine 07/17/2024 2:06 PM EDT Supraventricular tachycardia of fetus affecting management of Polyhydramnios affecting documented in this encounter Results * [facility] OB FOLLOW-UP, 1 FETUS (07/17/2024 2:06 PM EDT) Anatomical Region Laterality Modality OB-SYSTEMS SOFTWARE SPECIALIST Ultrasound 07/17/2024 1:11 PM EDT Narrative 07/17/2024 3:31 PM EDT NAME: SCOTTY CAMERON : 1995 SEX: F Accession Number: [id number] ORDERING PHYSICIAN: BERTO LOWRY REFERRING PHYSICIAN: PHIL BURROUGHS Coding ----- --------- Procedures [id number]: Follow-up Ultrasound, per fetus [id number]: Echocardiography, , cardiovascular system, real time with image documentation (2D), with or without M-mode recording; follow-up or repeat study Indication ----- --------- Screening for follow-up survey, Persistent irregular rhythm, Screening for hydrops, Obesity in , Supervision of high risk . History ----- --------- OB History 2. Para 1 [id number] Maternal Assessment ----- --------- Physical Exam Height [...] EFW (oz) 13 oz EFW by: Hadlock ([id number]) Extended Tibia 58.8 mm 34w 2d 89% Samuel Sheet Metal Worker Supervisor 6.1 mm Head / Face / Neck [...] Thorax RVOT view. LVOT view. 3-vessel view. 2-anetyn-hxozone view. Right lung. Left lung. Abdomen Abdom. [...] view documented previously 3-vessel view documented previously 2-sezizz-ssaqetk view documented previously Aortic arch view documented [...] unless otherwise specified by MFM. Procedure Note Berto Lowry MD - 07/17/2024 NAME: SCOTTY CAMERON : 1995 SEX: F Accession Number: [id number] ORDERING PHYSICIAN: BERTO LOWRY REFERRING PHYSICIAN: PHIL BURROUGHS Coding ----- --------- Procedures [id number]: Follow-up Ultrasound, per fetus 62141: Echocardiography, , cardiovascular system, real timewith image documentation (2D), with or without M-mode recording; follow-up or repeat study Indication ----- --------- Screening for follow-up survey, Persistent irregular rhythm, Screening forhydrops, Obesity in , Supervision of high risk . History ----- --------- OB History 2. Para 1 [id number] Maternal Assessment ----- --------- Physical Exam Height [...] EFW (oz) 13 oz EFW by: Hadlock ([id number]) Extended Tibia 58.8 mm 34w 2d 89% Samuel Sheet Metal Worker Supervisor 6.1 mm Head / Face / Neck [...] Thorax RVOT view. LVOT view. 3-vessel view. 1-jrwjmg-vthikvhfcwo. Right lung. Left lung. Abdomen Abdom. wall. [...] view documented previously 3-vessel view documented previously 2-qhvpvx-qbsomkk view documented previously Aortic arch view documented [...] provider unless otherwise specified by MFM. us Berto Lowry MD IMG US ORDERABLES Final Re sult documented in this encounter Visit Diagnoses Diagnosis Supraventricular tachycardia of fetus affecting management of Polyhydramnios affecting documented in this encounter Additional Health Concerns Assessment Noted Time PHQ-9 Depression Total Score: 0 05/29/19 23 11:03 AM EDT documented as of this encounter Care Teams Registered Midwife Relationship Specialty Start Date End Date Sarah Queen APRN-ELECTRONICS COMPUTER MECHANIC [address] [place] [address] PCP - General Internal Medicine 09/03/23 documented as of this encounter
--- OUTSIDE RECORDS SUMMARY | 2024-07-17 14:30 | XMS_ITS | Encounter Summary ---
Author Organization [facility] [employer] s tem Address [id number] [address] [place] [address] Care Team Providers Care Workers Compensation Legal Secretary Name Role Phone Sarah Queen Arnaud VANGN-CLINICAL RADIOLOGIST Primary Care Provider + Reason for Visit * Reason Comments Polyhydraminos arrythmia GDM Encounter Details Date Type Department Care Team (Late st Contact Info) Description 07/17/2024 2:30 PM EDT Office Visit Maternal- Medicine at [facility] [address] [place] [phone] Berto Lowry MD [address] [facility], [address] [place] [phone] 33 weeks gestation of (Primary Dx); Gestational [...] Care Everywhere. * Your baby's movement before (Tuvaluan) documented in this encounter Progress Notes * [...] Disp: 200 strip, Rfl: 0 blood-glucose meter [facility], Please check blood glucose fasting and 1 [...] in themorning., Disp: 150 tablet, Rfl: 3 [id number] acid ( 19) 29 mg iron- 1 [...] more likely to fail compared to insulin. community ambassador data on children whose mothers took oral [...] Insulin teaching was provided -delivery recommended at [facility] -delivery recommended at 37 weeks -the patient desires to have hybrid follow-up with her primary OB and the [place] for [facility] as she is struggling to be coming to [place] for routine visits due to geographic distance [...] Berto Lowry MD, FACOG (she/hers) Maternal- Medicine [facility] [address] [facility] 1st [place] [address] This document was created with Octopart technology. Though I make every effort to review the dictation as it is transcribed, on occasion the spoken word can be misinterpreted by the technology leading to inappropriate words, phrases, or sentences. This note is addressed to the requesting provider as a consultation for clinical guidance. Specificmedical abbreviations are occasionally used and those are generally approved by the [place]?Board of?Obstetrics and?Gynecology?as well as?Dylan???s abbreviations. The above plan of care was based solely on the diagnoses for which a consultation was requested. ?More frequent testing may be indicated based on her other medical/obstetrical conditions. The management of other or medical conditions is beyond the scope of requested consultation and will c ontinue to be followed by the primary senior ui web developer or primary care provider. Note to patient: [...] Description 08/04/2024 9:00 AM EDT Routine Center [facility] Services - Women's Services [address] [place] [phone] Shira Staples MD [address] [place] [address], [address] [place] [address] 08/07/2024 3:30 PM EDT Appointment [facility] US Imaging [address] [place] [phone] documented as of this encounter Visit Diagnoses [...] documented as of this encounter Care Teams Workers Compensation Legal Secretary Relationship Specialty Start Date End Date Sarah Queen APRN-CLINICAL RADIOLOGIST [address] [place] [address] PCP - General Internal Medicine 09/03/23 documented as of this encounter
--- OUTSIDE RECORDS SUMMARY | 2024-07-17 16:34 | XMS_ITS | Encounter Summary ---
Author Organization [employer] tem Address [facility] [id number] [address] [place] [address] Care Team Providers Care Field Horticultural Specialty Grower Name Role Phone Sarah Queen APRN-PROFESSOR OF EARLY CHILDHOOD EDUCATION Primary Care Provider + Reason for Referral * Cardiology (Routine) - Closed Specialty Diagnoses / Procedures Referred By Jess loza Referred To Contact Diagnoses Supraventricular tachycardia of fetus affecting management of Intrauterine Polyhydramnios affecting Excessive growth affecting management of in second trimester, single or unspecified fetus Procedures ECG 12 lead Aidan Rivera MD [address] [place] [address] Phone: tel: fax: Referral ID Status Reason Start Date Expiration Date Visits Re quested Visits Authorized [id number] Closed 06/29/2024 06/29/2025 1 1 Reason for Visit * Cardiology (Routine) - Closed Specialty Diagnoses / Procedures Referred By Jess loza Referred To Contact Diagnoses Supraventricular tachycardia of fetus affecting management of Intrauterine Polyhydramnios affecting Excessive growth affecting management of in second trimester, single or unspecified fetus Procedures ECG 12 lead Aidan Rivera MD [address] [place] [address] Phone: tel: fax: Referral ID Status Reason Start Date Expiration Date Visits Re quested Visits Authorized [id number] Closed 06/29/2024 06/29/2025 1 1 Encounter Details Date Type Department Care Team (Latest Contact Info) Description 07/17/2024 4:34 PM EDT - 07/17/2024 11:59 PM EDT Hospital Encounter [facility] - Cardiovascular [address] [place] [address] Supraventricular tachycardia of fetus affecting management of ; Intrauterine ; Polyhydramnios affecting ; Excessive growth affecting management of in second trimester, single or unspecified fetus Discharge Disposition: Home Social History Tobacco Use [...] in the morning. 150 tablet 3 06/28/2024 [id number] acid ( 19) 29 mg iron- 1 [...] total) before bedtime. 60 tablet 3 06/28/2024 5 documented as of this encounter Plan of Treatment Upcoming Encounters Date Type Department Care Team (Late st Contact Info) Description 08/04/2024 9:00 AM EDT [facility] [address] [place] [phone] Shira Staples MD [address] [facility], [address] [place] [address] 08/07/2024 3:30 PM EDT Appointment [facility] US Imaging [address] [place] [address] documented as of this encounter Procedures Procedure Name Priority Date/Time Associated Diagnosis Comments ECG 12-LEAD Routine 07/17/2024 4:43 PM EDT Supraventricular tachycardia of fetus affecting management of Intrauterine Polyhydramnios affecting Excessive growth affecting management of in second trimester, single or unspecified fetus documented in this encounter Results * ECG 12 lead (07/17/2024 4:43 PM EDT) 07/17/2024 4:43 PM EDT Narrative TRACEMASTERVUE - 07/26/2024 9:04 AM EDT Aidan Rivera MD ECG ORDERABLES Edited Result - Final TRACEMASTERVUE documented in this encounter Visit Diagnoses Diagnosis Supraventricular tachycardia of fetus affecting management of Intrauterine Polyhydramnios affecting Excessive growth affecting management of in second trimester, single or unspecified fetus documented in this encounter Additional Health Concerns Assessment Noted Time PHQ-9 Depression Total Score: 0 05/29/19 23 11:03 AM EDT documented as of this encounter Care Teams Field Horticultural Specialty Grower Relationship Specialty Start Date End Date Sarah Queen, ROVING TECHNICIAN-PROFESSOR OF EARLY CHILDHOOD EDUCATION [facility] [place] [address] PCP - General Internal Medicine 09/03/23 documented as of this encounter
--- OUTSIDE RECORDS SUMMARY | 2024-07-24 08:30 | XMS_ITS | Encounter Summary ---
Author Organization [employer] Address [id number] [address] [place] [address] Care Team Providers Care Assistant Sales Director Name Role Phone Sarah Queen PERINATAL SOCIAL WORKER-CISTERN ROOM OPERATOR Primary Care Provider + Reason for Visit * Reason Comments High Risk Gestation Encounter Details Date Type Department Care Team (Late st Contact Info) Description 07/24/2024 8:30 AM EDT [facility] [address] [place] [phone] Margoth Tatum MD [address] [facility] [place] [phone] GA: 34w0d Social History Tobacco Use Types [...] documented in this encounter Progress Notes * eBlia Ibarra DO - 07/24/2024 8:30 AM EDT [facility] High Risk Obstetrics Visit [...] of delivery: testing: Saturday/ NST/ DVP at [place] Patient reports doing well today and endorses [...] digoxin - Continue twice weekly testing in [place] - Serial growth scans (next 08/07/24) GDMA2 - Declining insulin management - Macrosomic growth pattern - Plan for repeat growth US 3 weeks from last (scheduled 08/07/24) - Continue to monitor BG and follow with MFM care - labor precautions & kick counts reviewed - Planning for delivery at 37 weeks RTC in 2 weeks via HROB Belia Ibarra DO Locate Technician Resident PGY-4 * Margoth Tatum MD - [...] digoxin Twice weekly testing being done at [place] with Dr. Fierro Gestational DM Meds: none [...] discussed SVT Twice weekly testing--being done at [place] Serial growth scans--scheduled for 08/07/24 Deliver at 37 weeks Gestational Diab, A1 with good control Followed by [facility] RTC 2 weeks via HROB Note [...] RN - 07/24/2024 8:30 AM EDT Urine [id number]-orrdf * Marie Luu LPN - 07/24/2024 8:30 AM EDT Pt here for 34w0d HR visit States feeiling good Feeling good movement No leaking of fluid or blood MF told pt to see us for an actual due date / in order to plan 37 week delivery Glucose logs from sensor going to [facility] documented in this encounter Plan of Treatment Upcoming Encounters Date Type Department Care Team (Late st Contact Info) Description 08/04/2024 9:00 AM EDT [facility] [address] [place] [phone] Shira Staples MD [address] [facility] [place] [address] 08/07/2024 3:30 PM EDT Appointment [facility] US Imaging [address] [place] [address] documented as of this encounter Visit Diagnoses Diagnosis Supraventricular tachycardia of fetus affecting management of - Primary Gestational diabetes mellitus (GDM) in third trimester, gestational diabetes method of control unspecified Intrauterine documented in this encounter Additional Health Concerns Assessment Noted Time PHQ-9 Depression Total Score: 0 05/29/19 23 11:03 AM EDT documented as of this encounter Care Teams Assistant Sales Director Relationship Specialty Start Date End Date Sarah Queen APRN-CISTERN ROOM OPERATOR [address] [place] [address] PCP - General Internal Medicine 09/03/23 documented as of this encounter
--- OUTSIDE RECORDS SUMMARY | 2024-07-29 14:50 | XMS_ITS | Encounter Summary ---
Author Organization [facility] Healthcare Address [address] [place] [address] Care Team Providers Care Quality Control Specialist Name Role Phone Terrence Mcintyre MD Primary Care Provider + [phone] Reason for Visit * Reason Comments Routine Visit Encounter Details Date Type Department Care Team (Late st Contact Info) Description 07/29/2024 2:50 PM EDT Routine [facility] OB [address] [facility] [place] [address] Chelsea Carson PA [address] [facility] [address] [place], [facility]11 Third trimester ; 34 weeks gestation of [...] week for routine OB appointment. Documented by EMILY Villalobos on behalf of: EMILY Villalobos documented in this encounter Plan of Treatment Upcoming Encounters Date Type Department Care Team (Late st Contact Info) Description 08/12/2024 3:40 PM EDT Routine [facility] OB [address] [facility] [place] [address] Ronald Fierro, DO [address] [facility] [place] [address] documented as of this encounter Procedures Procedure [...] of documented in this encounter Care Teams Quality Control Specialist Relationship Specialty Start Date End Date Terrence Mcintyre MD [address] [facility] [place] [address] PCP - General Family Medicine 02/11/24 documented as of this encounter
--- OUTSIDE RECORDS SUMMARY | 2024-07-30 19:22 | XMS_ITS | Encounter Summary ---
Author Organization [facility] Address [address] [place] [address] Care Team Providers Care Grade Teacher Name Role Phone Terrence Mcintyre MD Primary Care Provider + [phone] Encounter Details Date Type Department Care Team (Late st Contact Info) Description 07/23/2024 Clinisync Result Encounter [facility] External Department Unsolicited Phil Fierro, DO [address] [place], [place] [address] Social History Tobacco Use Types Packs/Day Years [...] Routine [facility] OB [address] [place] [address] Phil Fierro, DO [address] [place], [place] [address] documented as of this encounter Procedures Procedure Name Priority Date/Time Associated Diagnosis Comments US OB BPP W NON-STRESS 07/23/2024 7:52 PM EDT documented in this encounter Results * US OB BPP W NON-STRESS (07/23/2024 7:52 PM EDT) Anatomical Region Laterality Modality Other 07/23/2024 7:52 PM EDT Narrative 07/23/2024 7:55 PM EDT [address] [address] Ultrasound Report Signed Patient: NISHA FAJARDO MR#: [id number] : 1995 Acct:[id number] Age/Sex: 28 / F ADM Date: 07/23/24 Loc: [facility] 250-[address]: Phil Fierro D.O. Ordering Physician: Phil Fierro D.O. Date of Service: 07/23/24 Procedure(s): US OB BPP w non-stress Accession Number(s): [id number] cc: TERRENCE MCINTYRE ; Phil Fierro D.O. [place] [id number] Patient Name: NISHA FAJARDO MRN: [id number] date: 1995 Sex: F Assigned Patient Location: [facility] Current Patient Location: [facility] Accession/Order Number: [id number] Exam Date: 07/23/2024 19:51 Report Date: 07/23/2024 [...] Buck M.D. 07/23/2024 7:52 PM Dictation Location: [place] [address] Electronically authenticated by: [id number] Y Date: 07/23/2024 19:52 Dictated By: Neo Buck D.O. Signed By: 07/23/241954 DD/ 51 TD/TT: Subeditor: Procedure Note Radiology, Radiologist, MD Almendarez 07/24/2024 [place] [address] Ultrasound Report Signed Patient: NISHA FAJARDO LMR#: [id number] : 1995Acct:[id number] Age/Sex: 28 / FADM Date: 07/23/24 Loc: [facility] 250-[address]: Phil Fierro D.O. Ordering Physician: Phil Feirro D.O. Date of Service: 07/23/24 Procedure(s): US OB BPP w non-stress Accession Number(s): [id number] cc: TERRENCE MCINTYRE ; Phil Fierro D.O. The [place] [id number] Patient Name: NISHA FAJARDO MRN: [id number] date: 1995 Sex: F Assigned Patient Location: [facility] Current Patient Location: [facility] Accession/Order Number: [id number] Exam Date: 07/23/2024 19:51 Report Date: 07/23/2024 [...] Buck M.D. 07/23/2024 7:52 PM Dictation Location: [place] [address] Electronically authenticated by: [id number] Y Date: 9:52 Dictated By: Neo Buck D.O. Signed By:07/23/241954 DD/ 51 TD/TT: Subeditor: Phil Fierro DO [facility] Final Result documented in this encounter Visit Diagnoses Not on filedocumented in this encounter Care Teams Grade Teacher Relationship Specialty Start Date End Date Terrence Mcintyre MD [address], [facility] [place] [address] PCP - General Family Medicine 02/11/24 documented as of this encounter
--- OUTSIDE RECORDS SUMMARY | 2024-07-30 19:22 | XMS_ITS | Encounter Summary ---
Author Organization [facility] tem Address [id number] [address] [place] [address] Care Team Providers Care Helium Arc Welder Name Role Phone Sarah Queen LONG WALL SHEAR OPERATOR-S3B MULTI SENSOR OPERATOR Primary Care Provider + Encounter Details Date Type Department Care Team (Late st Contact Info) Description 07/22/2024 Orders Only [facility] Internal Medicine - Family Medicine [address] [place] [address] Ref [place], [place] [address] Social History Tobacco Use Types Packs/Day Years [...] Health Services - Women's Services [address] [place] [address] Shira Staples MD [address] [facility], [address] [place] [address] 08/07/2024 3:30 PM EDT Appointment [facility] US Imaging [address] [place] [address] documented as of this encounter [...] documented as of this encounter Care Teams Helium Arc Welder Relationship Specialty Start Date End Date Sarah Queen APRN-S3B MULTI SENSOR OPERATOR [address] [place] [address] PCP - General Internal Medicine 09/03/23 documented as of this encounter
--- OUTSIDE RECORDS SUMMARY | 2024-07-30 19:22 | XMS_ITS | Encounter Summary ---
Author Organization [facility] Address [address] [place] [address] Care Team Providers Care Party Planner Name Role Phone Terrence Mcintyre MD Primary Care Provider + [phone] Encounter Details Date Type Department Care Team (Late st Contact Info) Description 07/08/2024 Abstract [facility] OB [address] [facility] [address] [address] Fierro [address] [place] [address] Social History Tobacco Use Types Packs/Day Years [...] Description 08/12/2024 3:40 PM EDT Routine [facility] OB [address] [place] [address] Ronald Fierro DO [address] [place] [address] documented as of this encounter Visit Diagnoses Not on filedocumented in this encounter Care Teams Party Planner Relationship Specialty Start Date End Date Terrence Mcintyre MD [address] [place] [address] PCP - General Family Medicine 02/11/24 documented as of this encounter
--- OUTSIDE RECORDS SUMMARY | 2024-07-30 19:22 | XMS_ITS | Encounter Summary ---
Author Organization [facility] tem Address [id number] [address] [place] [address] Care Team Providers Care Plumbing Warehouse Helper Name Role Phone Sarah Queen Arnaud SCENIC ARTIST-AUDIO VISUAL TECHNICIAN Primary Care Provider + Encounter Details Date Type Department Care Team (Late st Contact Info) Description 07/06/2024 Documentation Maternal- Medicine at [facility] [address] [place] [address] Hayley Conner RDMS Social History Tobacco Use [...] Health Services - Women's Services [address] [place] [address] Shira Staples MD [address] [facility], [address] [place] [address] 08/07/2024 3:30 PM EDT Appointment [facility] US Imaging [address] [facility] [place] [address] documented as of this encounter Visit Diagnoses Not on filedocumented in this encounter Additional Health Concerns Assessment Noted Time PHQ-9 Depression Total Score: 0 05/29/19 23 11:03 AM EDT documented as of this encounter Care Teams Plumbing Warehouse Helper Relationship Specialty Start Date End Date Sarah Queen, SCENIC ARTIST-AUDIO VISUAL TECHNICIAN [address] [place] [address] PCP - General Internal Medicine 09/03/23 documented as of this encounter
--- OUTSIDE RECORDS SUMMARY | 2024-07-30 19:22 | XMS_ITS | Encounter Summary ---
Author Organization [facility] Address [facility] [id number] [address] [place] [address] Care Team Providers Care Plant Anatomy Teacher Name Role Phone BerniceAnn MarieSarahdonnie Lares APRN-BASIC SCIENCES PROFESSOR Primary Care Provider + Reason for Referral * Cardiology (Routine) - Closed Specialty Diagnoses / Procedures Referred By Jess loza Referred To Contact Diagnoses Supraventricular tachycardia of fetus affecting management of Intrauterine Polyhydramnios affecting Excessive growth affecting management of in second trimester, single or unspecified fetus Procedures ECG 12 lead Aidan Rivera MD [address] [place] [address] Phone: tel: fax: Referral ID Status Reason Start Date Expiration Date Visits Re quested Visits Authorized [id number] Closed 06/29/2024 06/29/2025 1 1 Encounter Details Date Type Department Care Team (Late st Contact Info) Description 06/29/2024 Orders Only [facility] Pediatric Cardiology [address] [place] [address] Aidan Rivera MD [address] [place], [place] [address] Supraventricular tachycardia of fetus affecting management of [...] Health Services - Women's Services [address] [place] [address] Shira Staples MD [address] [place] [address], [address] [address] 08/07/2024 3:30 PM EDT Appointment [facility] US Imaging [address] [place] [address] documented as of this encounter Results * [...] documented as of this encounter Care Teams Plant Anatomy Teacher Relationship Specialty Start Date End Date Sarah Queen, ADVERTISER-BASIC SCIENCES PROFESSOR [address] [place] [address] PCP - General Internal Medicine 09/03/23 documented as of this encounter
--- OUTSIDE RECORDS SUMMARY | 2024-07-30 19:22 | XMS_ITS | Encounter Summary ---
Author Organization [employer] [facility] tem Address [facility] [place] [id number] [address] [place] [address] Care Team Providers Care Forms Designer Name Role Phone Sarah Queen AUTOMOTIVE QUALITY MANAGER-PRECINCT COMMANDING OFFICER Primary Care Provider + Encounter Details Date [...] Health Services - Women's Services [address] [place] [address] Shira Staples MD [address] [facility], [address] [place] [address] 08/07/2024 3:30 PM EDT Appointment [facility] US Imaging [address] [place] [address] documented as of this encounter Visit Diagnoses Not on filedocumented in this encounter Additional Health Concerns Assessment Noted Time PHQ-9 Depression Total Score: 0 05/29/19 23 11:03 AM EDT documented as of this encounter Care Teams Forms Designer Relationship Specialty Start Date End Date Sarah Queen, ESCOBAR-PRECINCT COMMANDING OFFICER [address] [place] [address] PCP - General Internal Medicine 09/03/23 documented as of this encounter
--- OUTSIDE RECORDS SUMMARY | 2024-07-30 19:22 | XMS_ITS | Encounter Summary ---
Author Organization [facility] Address [address] [place] [address] Care Team Providers Care Telephone Installer Name Role Phone Terrence Mcintyre MD Primary Care Provider + [phone] Encounter Details Date Type Department Care Team (Late st Contact Info) Description 07/17/2024 Clinisync Result Encounter [facility] External Department Unsolicited Phil Fierro, DO [address] [place], [place] [phone] Social History Tobacco Use Types Packs/Day Years [...] Routine [facility] OB [address] [place] [address] Phil Fierro, DO [address] [place], [place] [address] documented as of this encounter Procedures Procedure Name Priority Date/Time Associated Diagnosis Comments US OB BPP W NON-STRESS 07/17/2024 6:48 AM EDT documented in this encounter Results * US OB BPP W NON-STRESS (07/17/2024 6:48 AM EDT) Anatomical Region Laterality Modality Other 07/17/2024 6:48 AM EDT Narrative 07/17/2024 6:51 AM EDT [address] [address] Ultrasound Report Signed Patient: NISHA FAJARDO MR#: [id number] : 1995 Acct:[id number] Age/Sex: 28 / F ADM Date: 07/16/24 Loc: US Attending Dr: Phil Fierro D.O. Ordering Physician: Phil Fierro D.O. Date of Service: 07/16/24 Procedure(s): US OB BPP w non-stress Accession Number(s): [id number] cc: TERRENCE MCINTYRE ; Phil Fierro D.O. [place] [id number] Patient Name: NISHA FAJARDO MRN: [id number] date: 1995 Sex: F Assigned Patient Location: [facility] Current Patient Location: Accession/Order Number: [id number] Exam Date: 07/17/2024 06:44 Report Date: 07/17/2024 06:48 At the request of: PHIL FIERRO DO Procedure: US OB BPP w non-stress US OB BPP w non-stress 07/16/2024 7:50 PM SIGNS AND SYMPTOMS: 12/05/2023 Polyhydraminos, supraventricular tachycarida PROTOCOL: Grayscale and color Doppler sonographic images of the pelvis were obtained COMPARISON: 07/09/2024 FINDINGS: The customer support professional reports a BPP of 8 out of 8. SKYLAR is normal at 25.2 cm. heart rate 128 bpm. US/US OB BPP w non-stress Impression: BPP 8 out of 8. Impression dictated by: oJrge Lam M.D. 07/17/2024 6:48 AM Dictation Location: [place] [address] Electronically authenticated by: [id number] Y Date: 07/17/2024 06:48 Dictated By: Jorge Lam M.D. Signed By: 07/17/24 0651 DD/ 0648 TD/TT: Key Carrier: Procedure Note Radiology, Radiologist, - 07/17/2024 [place] [address] Ultrasound Report Signed Patient: NISHA FAJARDO LMR#: [id number] : 1995Acct:[id number] Age/Sex: 28 FADM Date: 07/16/24 Loc: US Attending Dr: Phil Fierro D.O. Ordering Physician: Phil Fierro D.O. Date of Service: 07/16/24 Procedure(s): US OB BPP w non-stress Accession Number(s): [id number] cc: TERRENCE MCINTYRE ; Phil Fierro D.O. The [place] [id number] Patient Name: NISHA FAJARDO MRN: [id number] date: 1995 Sex: F Assigned Patient Location: [facility] Current Patient Location: Accession/Order Number: [id number] Exam Date: 07/17/2024 06:44 Report Date: 07/17/2024 06:48 At the request of: PHIL FIERRO DO Procedure: US OB BPP w non-stress US OB BPP w non-stress 07/16/2024 7:50 PM SIGNS AND SYMPTOMS: 12/05/2023 Polyhydraminos, supraventricular tachycarida PROTOCOL: Grayscale and color Doppler sonographic images of the pelviswere obtained COMPARISON: 07/09/2024 FINDINGS: The customer support professional reports a BPP of 8 out of 8. SKYLAR is normal at 25.2 cm. heart rate 128 bpm. US/US OB BPP w non-stress Impression: BPP 8 out of 8. Impression dictated by: Jorge Lam M.D. 07/17/2024 6:48 AM Dictation Location: [place] [address] Electronically authenticated by: [id number] Y Date: 506:48 Dictated By: Jorge Lam M.D. Signed By:07/17/2451 DD/ 7 TD/TT: Key Carrier: us Phil Sri DO [facility] Final Result documented in this encounter Visit Diagnoses Not on filedocumented in this encounter Care Teams Telephone Installer Relationship Specialty Start Date End Date Terrence Mcintyre MD [address] [facility] [address] PCP - General Family Medicine 02/11/24 documented as of this encounter
--- OUTSIDE RECORDS SUMMARY | 2024-07-30 19:22 | XMS_ITS | Encounter Summary ---
Author Organization [facility] Address [address] [place] [address] Care Team Providers Care Savings Counselor Name Role Phone Terrence Mcintyre MD Primary Care Provider + [phone] Encounter Details Date Type Department Care Team (Late st Contact Info) Description 06/30/2024 [facility] Orders [address] [place] [address] Ronald Fierro DO [address] [place] [address] Dr [address] [place] [id number] Social History Tobacco Use Types Packs/Day Years [...] PM EDT Routine [facility] OB [address] [place] [address] Ronald Fierro DO [address] [place] [address] [place] [address] documented as of this encounter Visit Diagnoses Not on filedocumented in this encounter Care Teams Savings Counselor Relationship Specialty Start Date End Date Terrence Mcintyre MD [address] [place], [place] [address] PCP - General Family Medicine 02/11/24 documented as of this encounter
--- OUTSIDE RECORDS SUMMARY | 2024-07-30 19:22 | XMS_ITS | Encounter Summary ---
Author [facility] Address [facility] [place][id number] [address] [place] [address] Care Team Providers Care Air Vice Marshal Name Role Phone Sarah Queen ESCOBAR-GARDEN CONSULTANT Primary Care Provider + Reason for Visit * Reason Comments Med Refill Encounter Details Date Type Department Care Team (Late st Contact Info) Description 02/20/2022 Refill [facility] Internal Medicine - Family Medicine [address] [place] [address] Deja Caal APRN-FNP [address] [place] [address] [place] [address] Social History Tobacco Use Types Packs/Day Years [...] Health Services - Women's Services [address] [place] [address] Shira Staples MD [address] [place] [address], [address] [place] [address] 08/07/2024 3:30 PM EDT Appointment [facility] US Imaging [address] [facility] [place] [address] documented as of this encounter Visit Diagnoses Not on filedocumented in this encounter Care Teams Air Vice Marshal Relationship Specialty Start Date End Date Sarah Queen APRN-GARDEN CONSULTANT [address] [place] [address] PCP - General Internal Medicine 09/03/23 documented as of this encounter
--- OUTSIDE RECORDS SUMMARY | 2024-07-30 19:22 | XMS_ITS | Encounter Summary ---
Author Organization [facility] Address [id number] [address] [place] [address] Care Team Providers Care Financial Reporting Manager Name Role Phone Sarah Queen Arnaud VANGN-BUILDER'S LABOURER Primary Care Provider + Encounter Details Date Type Department Care Team (Late st Contact Info) Description 06/12/2024 [facility]phone [facility] - [facility] [address] [place] [address] Sveta Gomez CMA Social History Tobacco Use [...] Health Services - Women's Services [address] [place] [address] Shira Staples MD [address] [facility], [address] [place] [address] 08/07/2024 3:30 PM EDT Appointment [facility] US Imaging [address] [place] [address] documented as of this encounter Visit Diagnoses Not on filedocumented in this encounter Additional Health Concerns Assessment Noted Time PHQ-9 Depression Total Score: 0 05/29/19 23 11:03 AM EDT documented as of this encounter Care Teams Financial Reporting Manager Relationship Specialty Start Date End Date Sarah Queen APRN-CNP [address] [place] [address] PCP - General Internal Medicine 09/03/23 documented as of this encounter
--- OUTSIDE RECORDS SUMMARY | 2024-07-30 19:22 | XMS_ITS | Encounter Summary ---
Author Organization [facility] Address [address] [place] [address] Care Team Providers Care Drainage Inspector Name Role Phone Terrence Mcintyre MD Primary Care Provider + [phone] Encounter Details Date Type Department Care Team (Late Contact Info) Description 07/22/2024 Abstract [facility] OB 102 [facility] [place] [address] [address] Fierro [address] [place] [address] Social History Tobacco Use Types Packs/Day [...] Description 08/12/2024 3:40 PM EDT Routine [facility] OB [address] [place] [address] Ronald Fierro, DO [address] [place] [address] documented as of this encounter Visit Diagnoses Not on filedocumented in this encounter Care Teams Drainage Inspector Relationship Specialty Start Date End Date Terrence Mcintyre MD [address] [place], [place] [address] PCP - General Family Medicine 02/11/24 documented as of this encounter
--- OUTSIDE RECORDS SUMMARY | 2024-07-30 19:22 | XMS_ITS | Encounter Summary ---
Author Organization [facility] Address [address] [place] [address] Care Team Providers Care Hand Tool Lapper Name Role Phone Terrence Mcintyre MD Primary Care Provider + [phone] Encounter Details Date Type Department Care Team (Late Contact Info) Description 07/20/2024 Abstract [facility] OB [address] [facility] [place] [address] Ronald Fierro [address] [place] [address] Social History Tobacco Use Types Packs/Day [...] Description 08/12/2024 3:40 PM EDT Routine [facility] OB [address] [place] [address] Ronald Fierro, DO [address] [place] [address] documented as of this encounter Visit Diagnoses Not on filedocumented in this encounter Care Teams Hand Tool Lapper Relationship Specialty Start Date End Date Terrence Mcinytre MD [address] [place], [place] [address] PCP - General Family Medicine 02/11/24 documented as of this encounter
--- OUTSIDE RECORDS SUMMARY | 2024-07-30 19:22 | XMS_ITS | Encounter Summary ---
Author Organization [employer] [facility] Address [facility] [place]-[id number] [address] [place] [address] Care Team Providers Care Accounting Manager Name Role Phone Sarah Queen BLINDSTITCH HEMMER-EVP [place] Primary Care Provider + Reason for Visit * Reason Comments Med Refill Encounter Details Date Type Department Care Team (Late st Contact Info) Description 05/15/2022 Refill [facility] Internal Medicine - Family Medicine [address] [place] [address] Deja Caal APRN-FNP [address] [place] [address] [place] [address] Social History Tobacco Use Types Packs/Day Years [...] encounter Miscellaneous Notes * Telephone Encounter - MARTIZA Chavez - 05/15/2022 2:07 AM EDT In March I sent in two packs and send she needed an apt, now I am not sending any in unless she schedules an apt - Deja documented in this encounter Plan of Treatment Upcoming Encounters Date Type Department Care Team (Late st Contact Info) Description 08/04/2024 9:00 AM EDT Routine [facility] Services - Women's Services [address] [place] [address] [place] [address] [place] [address], [address] [place] [address] 08/07/2024 3:30 PM EDT Appointment [facility] US Imaging [address] [facility] [place] [address] documented as of this encounter Visit Diagnoses Not on filedocumented in this encounter Care Teams Accounting Manager Relationship Specialty Start Date End Date Sarah Queen APRN-EVP [place] [address] [place] [address] PCP - General Internal Medicine 09/03/23 documented as of this encounter
--- OUTSIDE RECORDS SUMMARY | 2024-07-30 19:22 | XMS_ITS | Encounter Summary ---
Author Organization [facility] Address [address] [place] [address] Care Team Providers Care Glue Mill Operator Name Role Phone Terrence Mcintyre MD Primary Care Provider + [phone] Encounter Details Date Type Department Care Team (Late st Contact Info) Description 07/29/2024 Bamboo flowsheet [facility] OB [address] [facility] [place] [address] Chelsea Carson PA [address] [place] [address] Dr [place], [facility] Social History Tobacco Use Types Packs/Day [...] Description 08/12/2024 3:40 PM EDT Routine [facility] OB [address] [facility] [place] [address] Ronald Fierro DO [address] [facility] [place] [address] documented as of this encounter Visit Diagnoses Not on filedocumented in this encounter Care Teams Glue Mill Operator Relationship Specialty Start Date End Date Terrence Mcintyre MD [address] [place] [address] PCP - General Family Medicine 02/11/24 documented as of this encounter
--- OUTSIDE RECORDS SUMMARY | 2024-07-30 19:22 | XMS_ITS | Encounter Summary ---
Author Organization [facility] Address [address] [facility] [place] [address] Care Team Providers Care Agency Sales Development Associate Name Role Phone Terrence Mcintyre MD Primary Care Provider + [phone] Encounter Details Date Type Department Care Team (Late st Contact Info) Description 07/28/2024 Telephone [facility] OB [address] [facility] [address] Ijeoma Carrera LPN Social History Tobacco Use Types Packs/Day Years [...] encounter Miscellaneous Notes * Telephone Encounter - Ijeoma Carrera LPN - 07/28/2024 9:42 AM EDT 07/28/24 @ 0941 called patient to informed her that Dr. Fierro had reviewed her recent [facility] visit andwanted to ensure patient was going to delivery at [facility]. Patient voiced that yes that is the plan and will keep upcoming appointment with our office tomorrow and will continue care locally along with [facility]. Ijeoma Carlton LPN documented in this encounter Plan of Treatment Upcoming Encounters Date Type Department Care Team (Late st Contact Info) Description 08/12/2024 3:40 PM EDT Routine [facility] OB [address] [place] [address] Ronald Fierro DO [address] [place] [address] documented as of this encounter Visit Diagnoses Not on filedocumented in this encounter Care Teams Agency Sales Development Associate Relationship Specialty Start Date End Date Terrence Mcintyre MD [address] [place] [address] PCP - General Family Medicine 02/11/24 documented as of this encounter
--- OUTSIDE RECORDS SUMMARY | 2024-07-30 19:22 | XMS_ITS | Encounter Summary ---
Author Organization [facility] Address [address] [place] [address] Care Team Providers Care Cannoneer Name Role Phone Terrence Mcintyre MD Primary Care Provider + [phone] Encounter Details Date Type Department Care Team (Late Contact Info) Description 07/06/2024 Abstract [facility] OB [address] [facility] [place] [address] Ronald Fierro [address] [place] [address] Social History Tobacco Use Types Packs/Day [...] Description 08/12/2024 3:40 PM EDT Routine [facility] OB [address] [place] [address] Ronald Fierro, DO [address] [place] [address] documented as of this encounter Visit Diagnoses Not on filedocumented in this encounter Care Teams Cannoneer Relationship Specialty Start Date End Date Terrence Mcintyre MD [address] [place], [place] [address] PCP - General Family Medicine 02/11/24 documented as of this encounter
--- OUTSIDE RECORDS SUMMARY | 2024-07-30 19:22 | XMS_ITS | Encounter Summary ---
Author Organization [facility] tem Address [id number] [address] [place] [address] Care Team Providers Care Sponge Hooker Name Role Phone Sarah Queen Arnaud VANGN-BACON STRINGER Primary Care Provider + Encounter Details Date Type Department Care Team (Late st Contact Info) Description 07/21/2024 Telephone Maternal- Medicine at [facility] [address] [facility] [place] [address] Lila Zhao, ARLIN Social History Tobacco Use [...] Health Services - Women's Services [address] [place] [address] [place] [address] [place] [address], [address] [place] [address] 08/07/2024 3:30 PM EDT Appointment [facility] US Imaging [address] [facility] [place] [address] documented as of this encounter Visit Diagnoses Not on filedocumented in this encounter Additional Health Concerns Assessment Noted Time PHQ-9 Depression Total Score: 0 05/29/19 23 11:03 AM EDT documented as of this encounter Care Teams Sponge Hooker Relationship Specialty Start Date End Date Sarah Queen APRN-BACON STRINGER [address] [place] [address] PCP - General Internal Medicine 09/03/23 documented as of this encounter
--- OUTSIDE RECORDS SUMMARY | 2024-07-30 19:22 | XMS_ITS | Encounter Summary ---
Author Organization [facility] Address [address] [place] [address] Care Team Providers Care Rougher Helper Name Role Phone Terrence Mcintyre MD Primary Care Provider + [phone] Encounter Details Date Type Department Care Team (Late st Contact Info) Description 02/12/2024 Clinisync Result Encounter [facility] External Department Unsolicited Phil Fierro, DO [address] [place], [place] [id number] Social History Tobacco Use Types Packs/Day Years [...] PM EDT Routine [facility] [address] [place] [address] Phil Fierro, DO [address], [place] [id number] documented as of this encounter Procedures Procedure Name Priority Date/Time Associated Diagnosis Comments US OB TRANSVAGINAL 02/12/2024 4: 26 AM EST documented in this encounter Results * US OB TRANSVAGINAL (02/12/2024 4:26 AM EST) Anatomical Region Laterality Modality Other 02/12/2024 4:26 AM EST Narrative 02/12/2024 4:29 AM EST [address] [address] Ultrasound Report Signed Patient: Nisha Fajardo MR#: [id number] : 1995 Acct:[id number] Age/Sex: 28 / F ADM Date: 02/11/24 Loc: [facility] Attending Dr: Phil Fierro D.O. Ordering Physician: Phil Fierro D.O. Date of Service: 02/11/24 Procedure(s): US OB transvaginal Accession Number(s): [id number] cc: Phil Fierro D.O.; Physician,Non-Staff [place] [address] [address] Patient Name: NISHA FAJARDO MRN: [facility]:[id number] date: 1995 Sex: F Assigned Patient Location: [facility] Current Patient Location: Accession/Order Number: [id number] Exam Date: 02/11/2024 08:27 Report Date: 02/12/2024 [...] Almonte M.D. Signed By: 02/12/24 0429 DD/ 5 TD/TT: Corporate Accountant: Procedure Note Radiology, Radiologist, MD - 02/12/[address] [address] Ultrasound Report Signed Patient: Nisha Fajardo LMR#: [id number] : 1995Acct:[id number] Age/Sex: 28 / FADM Date: 02/11/24 Loc: [facility] Attending Dr: Phil Fierro D.O. Ordering Physician: Phil Fierro D.O. Date of Service: 02/11/24 Procedure(s): US OB transvaginal Accession Number(s): [id number] cc: Phil Fierro D.O.; Physician,Non-Staff [place] The [address] [address] Patient Name: NISHA FAJARDO MRN: [facility]:[id number] date: 1995 Sex: F Assigned Patient Location: [facility] Current Patient Location: Accession/Order Number: [id number] Exam Date: 02/11/2024 08:27 Report Date: 02/12/2024 [...] Almonte M.D. Signed By:02/12/24428 DD/ 5 TD/TT: Corporate Accountant: us Phil Sri DO [facility] Final Result documented in this encounter Visit Diagnoses Not on filedocumented in this encounter Care Teams Rougher Helper Relationship Specialty Start Date End Date Terrence Mcintyre MD [address] [facility] [place] [address] PCP - General Family Medicine 02/11/24 documented as of this encounter
--- OUTSIDE RECORDS SUMMARY | 2024-07-30 19:22 | XMS_ITS | Encounter Summary ---
Author Organization [facility] Address [address] [place] [address] Care Team Providers Care Disc Recordist Name Role Phone Terrence Mcintyre MD Primary Care Provider + [phone] Encounter Details Date Type Department Care Team (Late st Contact Info) Description 03/26/2024 Abstract [facility] [address] [address] Ronald Fierro [address] [place] [address] Social History Tobacco Use Types Packs/Day [...] Description 08/12/2024 3:40 PM EDT Routine [facility] [address] [place] [address] Ronald Fierro, DO [address] [place] [address] documented as of this encounter Visit Diagnoses Not on filedocumented in this encounter Care Teams Disc Recordist Relationship Specialty Start Date End Date Terrence Mcintyre MD [address] [place], [place] [phone] PCP - General Family Medicine 02/11/24 documented as of this encounter
--- OUTSIDE RECORDS SUMMARY | 2024-07-30 19:23 | XMS_ITS | Encounter Summary ---
Author Organization [facility] Address [id number] [address] [place] [address] Care Team Providers Care Lining Repairer Name Role Phone Sarah Queen Arnaud VANGN-WATER TAXI DRIVER Primary Care Provider + Encounter Details Date Type Department Care Team (Late st Contact Info) Description 07/28/2024 Orders Only Maternal- Medicine at [facility] [address] [place] [phone] Tammie Mckeon MD [address] [facility] 1[address] [place], [place] [phone] Social History Tobacco Use Types Packs/Day Years [...] Health Services - [facility] [address] [place] [phone] Shira Staples MD [address] [place] [address], [address] [place] [address] 08/07/2024 3:30 PM EDT Appointment [facility] [address] [place] [phone] documented as of this encounter Visit Diagnoses Not on filedocumented in this encounter Additional Health Concerns Assessment Noted Time PHQ-9 Depression Total Score: 0 05/29/19 23 11:03 AM EDT documented as of this encounter Care Teams Lining Repairer Relationship Specialty Start Date End Date Sarah Queen APRN-WATER TAXI DRIVER [address] [place] [address] PCP - General Internal Medicine 09/03/23 documented as of this encounter
--- OUTSIDE RECORDS SUMMARY | 2024-07-30 19:23 | XMS_ITS | Clinical Summary ---
Author Organization [employer] tem Address [id number] [address] 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 20 tablet 05/29/19 23 Active Additional Information Patient not taking.Reported on 07/24/2024 [id number] c acid ( 19) 29 mg iron- 1 mg tablet,chewable Chew 1 tablet and swallow in the morning. Active lancets 33 gauge miscIndications :Diet controlled gestational diabetes mellitus (GDM) in [...] hours. 60 tablet 3 06/29/19 25 Active potassium chloride (K-TAB,KLOR-CON ) 10 MEQ CR tablet Take 5 tablets (50 mEq total) by mouth in the morning. 150 tablet 3 06/29/19 25 Active calcium carbonate-vitam in D3 (OSCAL 500 + D) 500 mg (1,250 mg) - 200 units per tablet Take 1 tablet by mouth in the morning and 1 tablet in the evening. Take with meals. 180 tablet 3 06/29/19 25 Active alcohol swabs pads, medicatedIndica tions:Diet controlled gestational diabetes mellitus (GDM) in third trimester To use when performing a fingerstick 200 each 07/07/19 Active blood sugar diagnostic (glucose blood) stripIndication s:Diet controlled gestational diabetes mellitus (GDM) in third trimester Check blood glucose fasting and 1 hour after each meal 200 strip 07/07/19 Active blood-glucose meter miscIndications :Diet controlled gestational diabetes mellitus (GDM) in third trimester Please check blood glucose fasting and 1 hour after each meal 1 each 07/07/19 25 Active blood-glucose sensor (FREESTYLE NEIDA 3 PLUS SENSOR) deviceIndicatio ns:Diet controlled gestational diabetes mellitus (GDM) in third trimester Wear for 15 days and change 2 each 3 07/07/19 25 Active famotidine (PEPCID) 40 mg tablet Take 1 tablet (40 mg total) by mouth in the morning. Active magnesium oxide (MAGOX) 400 mg tablet Take 1 tablet (400 mg total) by mouth in the morning and 1 tablet (400 mg total) before bedtime. 60 tablet 3 07/29/19 Active blood sugar diagnostic (glucose blood) stripIndication s:Diet controlled gestational diabetes mellitus (GDM) in third trimester Check blood glucose fasting and 1 hour after each meal 200 strip 06/27/19 25 05 025 Discontinu ed(Reorder ) alcohol swabs pads, medicatedIndica tions:Diet controlled gestational diabetes mellitus (GDM) in third trimester To use when performing a fingerstick 200 each 06/27/19 25 05/ 025 Discontinu ed(Reorder ) blood-glucose meter miscIndications :Diet controlled gestational diabetes mellitus (GDM) in third trimester Please check blood glucose fasting and 1 hour after each meal 1 each 06/27/19 25 05/05/ 025 Discontinu ed(Reorder ) blood-glucose sensor (FREESTYLE NEIDA 3 PLUS SENSOR) deviceIndicatio ns:Diet controlled gestational diabetes mellitus (GDM) in third trimester Wear for 15 days and change 2 each 3 06/27/19 25 0505/ 025 Discontinu ed(Reorder ) magnesium oxide (MAGOX) 400 mg tablet Take 1 tablet (400 mg total) by mouth in the morning and 1 tablet (400 mg total) before bedtime. 60 tablet 3 06/29/19 25 025 Discontinu ed(Reorder ) Immunization, In Clinic, Inject 0.5 mL into the appropriate muscle once for 1 dose. diph,pertuss(aaron l),tet vac(PF) Sign this order to satisfy the OSBOP Positive ID requirements for immunization orders. 07/11/19 025 Active Problems Patient Care Coordination No te Formatting of this note migh t be different from the original. CARE COORDINATION DIAGNOSIS: SVT with Intermittent PAC's Referring OB: Sri SOTOM: Essence Maternal Hx: GDM MSAFP: cfDNA: Not [...] Consult: []Palliative Care Consult: []SGM: []Life Connection: []H[place]erson: [] MRI: []Nationwide: []UofM: []UH: [x]ANTOINETTE CHS: [...] Date Gestational diabetes mellitus (GDM) in third [facility] 07/17/2024 Intrauterine 06/11/2024 Overview (07/10/2024): First trimester Cell free DNA: low risk per patient Carrier screening 28 week labs CBC, HIV, Syphilis completed: yes Rh status: positive Third trimester Tdap: will do with regular OBGYN GBS at 36 weeks Mode of delivery: testing: Saturday/ NST/ [facility] at [facility] Supraventricular tachycardia of fetus affecting management of 06/11/2024 Overview (07/23/2024): S/p hospital admission end june Continue sotalol [...] Encounters Date Type Department Care Team Description 07/28/2024 Orders Only Maternal- Medicine at [facility] [address] [place] [address] Tammie Mckeon MD 07/28/2024 [facility] [place] [place] [address] [place] [address] Leidy Gonzalez RN 07/28/2024 Orders Only Maternal- Medicine at [facility] [address] [place] [address] Chelsea Segura LPN Gestational diabetes mellitus (GDM) in third trimester, gestational diabetes method of control unspecified (Primary Dx); Supraventricular tachycardia of fetus affecting management of ; Excessive growth affecting management of in second trimester, single or unspecified fetus; Polyhydramnios affecting 07/24/2024 8:30 AM EDT Routine [facility] [address] [place] [address] Margoth Tatum MD GA: 34w0d 07/24/2024 Travel 07/22/2024 Orders Only [facility] Internal Medicine - Family Medicine [address] [place] [id number] Ref Prov, Not In System 07/21/2024 Telephone Maternal- Medicine at [facility] [address] [place] [address] Lila Zhao RN 07/17/2024 4:34 PM EDT - 07/17/2024 11:59 PM EDT Hospital Encounter [facility] - Cardiovascular [address] [place] [phone] Supraventricular tachycardia of fetus affecting management of ; Intrauterine ; Polyhydramnios affecting ; Excessive growth affecting management of in second trimester, single or unspecified fetus Discharge Disposition: Home 07/17/2024 2:30 PM EDT Office Visit Maternal- Medicine at [facility] [address] [place] [address] Silvestre Suárez MD 33 weeks gestation of (Primary Dx); Gestational diabetes mellitus (GDM) in third trimester, gestational diabetes method of control unspecified; Supraventricular tachycardia of fetus affecting management of ; Excessive growth affecting management of in second trimester, single or unspecified fetus 07/17/2024 12:47 PM EDT - 07/17/2024 4:33 PM EDT Hospital Encounter [facility] US Imaging [address] [place] [phone] Supraventricular tachycardia of fetus affecting management of ; Polyhydramnios affecting Discharge Disposition: Home 07/15/2024 Travel 07/10/2024 10:00 AM EDT [facility] [address] [place] [address] Valorie Fenton MD GA: 32w0d 07/10/2024 Travel 07/06/2024 1:30 PM EDT Support Visit Maternal- Medicine at [facility] [address] [place] [address] Silvestre Suárez MD Frey, Angela M, RN Migdalia Morrow RD Diet controlled gestational diabetes mellitus (GDM) in third trimester 07/06/2024 Remote Patient Monitoring Maternal- Medicine at [facility] [address] [place] [address] Shahrzad Rojas, [facility] Polyhydramnios affecting [O40.9XX0] (Primary Dx) 07/06/2024 Orders Only Maternal- Medicine at [facility] [address] [place] [address] Holly Sheehan RN Diet controlled gestational diabetes mellitus (GDM) in third trimester 07/06/2024 Documentation Maternal- Medicine at [facility] [address] [place] [address] Hayley Conner RDMS 07/04/2024 Travel 06/29/2024 Documentation Maternal- Medicine at [facility] [address] [place] [address] Hayley Conner RDMS 06/29/2024 Orders Only [facility] Pediatric Cardiology [address] [address] Aidan Rivera MD Supraventricular tachycardia of fetus affecting management of (Primary Dx); Intrauterine ; Polyhydramnios affecting ; Excessive growth affecting management of in second trimester, single or unspecified fetus 06/29/2024 Telephone Maternal- Medicine at [facility] [address] [place] [address] Mendy North RN 06/26/2024 Orders Only [facility] - Labor [address] [place] [address] Silvestre Suárez MD Diet controlled gestational diabetes mellitus (GDM) in third trimester (Primary Dx) 06/26/2024 Documentation Maternal- Medicine at [facility] [address] [place] [address] Anahi Ragsdale, ARLIN 06/26/2024 Orders Only Maternal- Medicine at [facility] [address] [place] [address] Anahi Ragsdale, ARLIN Diet controlled gestational diabetes mellitus (GDM) in third trimester (Primary Dx) 06/24/2024 8:30 AM EDT - 06/24/2024 11:59 PM EDT Hospital Encounter [facility] - MFM US Imaging [address] [place] [address] Discharge Disposition: Home 06/23/2024 8:57 AM EDT - 06/23/2024 11:59 PM EDT Hospital Encounter [facility] - MFM [facility] Imaging [address] [place] [address] Discharge Disposition: Home 06/22/2024 8:43 AM EDT - 06/22/2024 11:59 PM EDT Hospital Encounter [facility] - [facility] Imaging [address] [place] [address] Discharge Disposition: Home 06/22/2024 Telephone [facility] [address] [place] [address] Luther Buchanan RN Medication Problem 06/21/2024 9:49 AM EDT - 06/21/2024 11:59 PM EDT Hospital Encounter [facility] - [facility] Imaging [address] [place] [address] Discharge Disposition: Home 06/21/2024 Telephone [facility] [address] [place] [address] Bhavani Chavez patient update 06/20/2024 9:11 AM EDT - 06/20/2024 11:59 PM EDT Hospital Encounter [facility] - [facility] [address] [place] [address] Discharge Disposition: Home 06/19/2024 8:08 AM EDT - 06/19/2024 11:59 PM EDT Hospital Encounter [facility] US Imaging [address] [place] [address] Discharge Disposition: Home 06/18/2024 9:59 AM EDT - 06/18/2024 11:59 PM EDT Hospital Encounter [facility] US Imaging [address] [place] [address] Discharge Disposition: Home 06/17/2024 9:50 AM EDT - 06/17/2024 11:59 PM EDT Hospital Encounter [facility] Imaging [address] [place] [address] Discharge Disposition: Home 06/16/2024 8:09 AM EDT - 06/16/2024 11:59 PM EDT Hospital Encounter [facility] US Imaging [address] [place] [address] Discharge Disposition: Home 06/16/2024 Travel 06/15/2024 8:01 AM EDT - 06/15/2024 11:59 PM EDT Hospital Encounter [facility] US Imaging [address] [place] [address] Discharge Disposition: Home 06/12/2024 Telephone [facility] Internal Medicine - Family Medicine [address] [place] [address] Sveta Gomez, MARY 06/12/2024 Orders Only Maternal- Medicine at [facility] [address] [place] [address] Veda Bonilla, RN Supraventricular tachycardia of fetus affecting management of (Primary Dx); Polyhydramnios affecting 06/11/2024 2:47 PM EDT - 06/28/2024 11:09 AM EDT Hospital Encounter [facility] - Labor [address] [place] [address] Fuentes Stauffer MD Excessive growth affecting management of in second trimester, single or unspecified fetus (Primary Dx); Polyhydramnios affecting ; Supraventricular tachycardia of fetus affecting management of ; Intrauterine Discharge Disposition: Home 06/11/2024 2:30 PM EDT Office Visit Maternal- Medicine at [facility] [address] [place] [address] Silvestre Suárez MD 27 weeks gestation of (Primary Dx); Supraventricular tachycardia of fetus affecting management of ; Polyhydramnios affecting ; Excessive growth affecting management of in second trimester, single or unspecified fetus 06/11/2024 12:46 PM EDT - 06/11/2024 2:46 PM EDT Hospital Encounter [facility] US Imaging [address] [place] [address] Screening, , for anatomic survey Discharge Disposition: Home 06/11/2024 Travel 06/11/2024 Orders Only Maternal- Medicine at [facility] [address] [place] [address] Ref Prov, Not In System 06/11/2024 Abstract Maternal- Medicine at [facility] [address] [place] [address] External, Scanning Provider from Last 3 Months [...] Health Services - Women's Services [address] [place] [address] Shira Staples MD [address] [facility] [place] [address] 08/07/2024 3:30 PM EDT Appointment [facility] US Imaging [address] [place] [address] Health Maintenance Due Date Last Done Comments [...] second trimester, single or unspecified fetus US [facility] OB FOLLOW-UP, 1 FETUS Routine 07/17/2024 [...] ECG 12-LEAD Timed 06/23/2024 11:16 AM EDT MFM LMTD OB, 1 OR MORE FETUS [...] BEDSIDE GLUCOSE Routine 06/20/2024 1:00 PM EDT US MFM BIOPHYSICAL PROFILE WO NST Routine 06/20/2024 [...] ORDERABLES Edited Result - Final [facility]ACEMASTERVUE * US MF OB FOLLOW-UP, 1 FETUS (07/17/2024 2:06 PM EDT) Only the most recent of12 resultswithin the time period is included. 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 History ----- --------- OB History 2. Para 1 [id number] Maternal Assessment ----- --------- Physical Exam Height [...] EFW (oz) 13 oz EFW by: Hadlock ([id number]) Extended Tibia 58.8 mm 34w 2d 89% [employer] 6.1 mm Head / Face / Neck [...] Thorax RVOT view. LVOT view. 3-vessel view. 0-nrisff-pifedci view. Right lung. Left lung. Abdomen Abdom. [...] view documented previously 3-vessel view documented previously 8-xtlomf-fmcdlng view documented previously Aortic arch view documented [...] CAMERON : 1995 SEX: F Accession Number: [id number] ORDERING PHYSICIAN: SILVESTRE SUÁREZ REFERRING PHYSICIAN: PHIL FIERRO Coding ----- --------- Procedures [id number]: Follow-up Ultrasound, per fetus [address]: Echocardiography, , cardiovascular system, real timewith image documentation (2D), with or without M-mode recording; follow-up or repeat study Indication ----- --------- Screening for follow-up survey, Persistent irregular rhythm, Screening forhydrops, Obesity in , Supervision of high risk . History ----- --------- OB History 2. Para 1 [id number] Maternal Assessment ----- --------- Physical Exam Height [...] EFW (oz) 13 oz EFW by: Hadlock ([id number]) Extended Tibia 58.8 mm 34w 2d 89% [employer] 6.1 mm Head / Face / Neck [...] Thorax RVOT view. LVOT view. 3-vessel view. 5-gwpfzl-hvotcnottho. Right lung. Left lung. Abdomen Abdom. wall. [...] view documented previously 3-vessel view documented previously 9-lmrvrh-umfocca view documented previously Aortic arch view documented [...] specified by MFM. us Silvestre Suárez MD [facility] ORDERABLES Final Re sult * Glucose random [...] - 99 mg/dL 06/28/2024 10:13 AM EDT [facility] arterial/capilla ry 06/28/2024 10:10 AM EDT 06/28/2024 10:13 AM EDT us Fuentes Stauffer MD POINT OF CARE TEST ORDERABLES Final Result Performing Organization Address City/[facility]/ZIP Co de Phone Number [facility] [address] [place] [address], [place] * (ABNORMAL) Comprehensive metabolic panel (06/28/2024 7:57 AM EDT) Only the most recent of14 resultswithin the time period is included. [facility] BILIRUBIN,TOTAL 0.4 0.3 - 1.2 mg/dL 06/28/2024 8:57 AM EDT [facility] CALCIUM 9.0 8.5 - 10.5 mg/dL 06/28/2024 8:57 AM EDT [facility] CARBON DIOXIDE 21(L) 22 - 32 mmol/L 06/28/2024 8:57 AM EDT [facility] CHLORIDE 106 98 - 109 mmol/L 06/28/2024 8:57 AM EDT [facility] CREATININE 0.35(L) 0.40 - 1.00 mg/dL 06/28/2024 8:57 AM EDT [facility] Comment:METHOD TRACEABLE TO IDMS STANDARD GLUCOSE 94 65 - 99 mg/dL 06/28/2024 8:57 AM EDT [facility] ALKALINE PHOSPHATASE 74 39 - 130 U/L 06/28/2024 8:57 AM EDT [facility] POTASSIUM 3.6 3.5 - 5.0 mmol/L 06/28/2024 8:57 AM EDT [facility] TOTAL PROTEIN 5.7(L) 6.0 - 8.0 g/dL 06/28/2024 8:57 AM EDT [facility] SODIUM 139 134 - 146 mmol/L 06/28/2024 8:57 AM EDT [facility] AST 13 <=41 U/L 06/28/2024 8:57 AM EDT [facility] ALT 8 <=31 U/L 06/28/2024 8:57 AM EDT [facility] BLOOD UREA NITROGEN 6 5 - 23 mg/dL 06/28/2024 8:57 AM EDT [facility] ANION GAP 12 5 - 15 mmol/L 06/28/2024 8:57 AM EDT [facility] ALBUMIN 3.3 3.2 - 5.3 g/dL 06/28/2024 8:57 AM EDT [facility] EGFR Non-Race Dependent >90 >=60 ml/min/1.7 3sq.m 06/28/2024 8:57 AM EDT [facility] Comment: Reported eGFR is based on the CKD-EPI 2020 equation that does not use a race coefficient. Blood Venous blood / Unknown 06/28/2024 7:57 AM EDT 06/28/2024 7:57 AM EDT us Fuentes Stauffer MD LAB BLOOD ORDERABLES Final Res ult [facility] [address] [place] [address], [place] [phone] * (ABNORMAL) Magnesium (06/27/2024 6:48 AM EDT) Only the most recent of29 resultswithin the time period is included. Magnesium 1.5(L) 1.8 - 2.6 mg/dL 06/27/2024 7:41 AM EDT [facility] PLASMA 06/27/2024 6:48 AM EDT 06/27/2024 6:49 AM EDT us Aidan Rivera MD LAB BLOOD ORDERABLES F inal Result NICK [facility] [address] [place] [address] * Limited Echo Follow Up (06/24/2024 2:46 [...] Study Details A limited echocardiogram was performed Jovani Stubbs MD CV ECHO ORDERABLES Final Res ult * Potassium (06/24/2024 8:21 AM EDT) Only the most recent of18 resultswithin the time period is included. Potassium, Bld 3.7 3.5 - 5.0 mmol/L 06/24/2024 9:33 AM EDT [facility] PLASMA 06/24/2024 8:21 AM EDT 06/24/2024 8:22 AM EDT Jovani Stubbs MD LAB BLOOD ORDERABLES Final R esult Performing Organization Address City/[facility]/ZIP Co de Phone Number [facility] [address] [place] [id number] * Digoxin level (06/24/2024 5:32 AM EDT) Only the most recent of10 resultswithin the time period is included. Digoxin Lvl 1.3 0.8 - 2.0 ng/mL 06/24/2024 6:46 AM EDT [facility] PLASMA 06/24/2024 5:32 AM EDT 06/24/2024 5:33 AM EDT Cathleen Perez MD LAB BLOOD ORDERABLES Final Resul t Performing Organization Address City/[facility]/ZIP Co de Phone Number [facility] [address] [place] [address], [address] [place] [address] * Type and screen(includes indirect radha) (06/24/2024 12:00 AM EDT) Only the most recent of2 resultswithin the time period is included. ABO O 06/24/2024 12:57 AM EDT [facility] RH Positive 06/24/2024 12:57 AM EDT [facility] Antibody Screen Negative 06/24/2024 12:57 AM EDT [facility] 06/24/2024 12:0 0 AM EDT us Estelle Avila DO BLOOD BANK TEST ORDERABLES Edited Result - Final [facility] [address] [place] [address], [place] * Ionized magnesium (06/22/2024 2:17 PM EDT) Magnesium, ionized 0.45 0.45 - 0.74 mmol/L 06/22/2024 2:35 PM EDT [facility] Comment:NEW REFERENCE RANGE PLASMA 06/22/2024 2:17 PM EDT 06/22/2024 2:18 PM EDT us Estefani Olea MD LAB BLOOD ORDERABLES Final Res ult [facility] [address] [place] [address] * Limited Echo Follow Up (06/22/2024 1:15 [...] quality was good. A echocardiogram was performed. Estefani Olea MD CV ECHO ORDERABLES Final Resul t * Unlisted Lab Test Flecainide level (06/22/2024 5:49 AM EDT) Only the most recent of3 resultswithin the time period is included. Unlisted lab test Sent to reference lab 06/22/2024 8:01 AM EDT [facility] MISCELLANEOUS 06/22/2024 5:4 9 AM EDT 06/22/2024 5:50 AM EDT Elvira Patel MD LAB BLOOD ORDERABLES Final [...] its performance characteristics determined by [facility] in a manner consistent with CLIA requirements. This test has not been cleared or approved by the U.S. Food and Drug Administration. Test Performed by: [facility] [place] [address] Hog Sticker: Mino Cain Ph.D.; CLIA# [id number] MISCELLANEOUS 06/22/2024 5:4 9 AM EDT 06/22/2024 [...] us Aidan Rivera MD CV ECHO ORDERABLES [facility] al Result * Basic Metabolic Panel (06/14/2024 5:12 AM EDT) Only the most recent of3 resultswithin the time period is included. Sodium 140 134 - 146 mmol/L 06/14/2024 6:51 AM T [facility] Potassium, Bld 3.8 3.5 - 5.0 mmol/L 06/14/2024 6:51 AM EDT [facility] Chloride 106 98 - 109 mmol/L 06/14/2024 6:51 AM EDT [facility] CO2 24 22 - 32 mmol/L 06/14/2024 6:51 AM T [facility] Anion gap 10 5 - 15 mmol/L 06/14/2024 6:51 AM T [facility] BUN 8 5 - 23 mg/dL 06/14/2024 6:51 AM [facility] Creatinine 0.41 0.40 - 1.00 mg/dL 06/14/2024 6:51 AM T [facility] Comment:METHOD TRACEABLE TO IDMS STANDARD Glucose 97 65 - 99 mg/dL 06/14/2024 6:51 AM [facility] Calcium 9.1 8.5 - 10.5 mg/dL 06/14/2024 6:51 AM [facility] eGFR (CKD-EPI)non-ra ce dependent >90 >59 ml/min/1.7 3sq.m 06/14/2024 6:51 AM [facility] Comment: Reported eGFR is based on the CKD-EPI 2020 equation that does not use a race coefficient. PLASMA 06/14/2024 5:12 AM EDT 06/14/2024 5:13 AM EDT us Estefani Olea MD LAB BLOOD ORDERABLES Final Res ult Performing Organization Address [facility]/ZIP Co de Phone Number [facility] [address] [facility] [place] [address] * (ABNORMAL) Glucose tolerance, 3 hours (06/12/2024 10:08 AM EDT) Pathologist [facility] Glucose, GTT - 3 Hour 123(H) 65 - 99 mg/dL 06/12/2024 11:00 AM EDT [facility] PLASMA 06/12/2024 10:0 8 AM EDT 06/12/2024 10:09 AM EDT us Kendrick Mahoney MD LAB BLOOD ORDERABLES Final Re sult Performing Organization Address [facility]/ZIP Co de Phone Number [facility] [address] [facility], [address] [place] [address] * Echo complete W/O contrast (06/12/2024 10:03 AM EDT) [facility] LVOT stroke volume 64.40 ml XCELERA LV [...] proximal 15 cm XCELERA Left Ventricle Mass 127.48239 [id number] 7 g XCELERA Interventricular Septum Diastolic Thickness [...] 100 gm load (06/12/2024 8:46 AM EDT) [facility] Glucose, GTT - 2 Hour 175(H) 70 - 139 mg/dL 06/12/2024 10:05 AM EDT [facility] Comment: Fourth International Workshop Conference: [...] LAB BLOOD ORDERABLES Final Re sult [facility] [address], [address] [place] [address] * (ABNORMAL) Glucose tolerance, 1 hour (06/12/2024 7:51 AM EDT) Glucose, GTT - 1 Hour 187(H) 120 - 170 mg/dL 06/12/2024 9:11 AM EDT [facility] PLASMA 06/12/2024 7:51 AM EDT 06/12/2024 7:52 AM EDT us Kendrick Mahoney MD LAB BLOOD ORDERABLES Final Re sult [facility] [address] [facility], [address] [place] [address] * Glucose, tolerance fasting (06/12/2024 6:51 AM EDT) Pathologist [facility] Glucose, GTT - Fasting 95 65 - 99 mg/dL 06/12/2024 8:05 AM EDT [facility] PLASMA 06/12/2024 6:51 AM EDT 06/12/2024 6:53 AM EDT us Kendrick Mahoney MD LAB BLOOD ORDERABLES Final Re sult Performing Organization Address [facility] Co de Phone Number [facility] [address] [place] [address], [address] [place] [address] * ABO Rh Repeat (06/12/2024 6:30 AM EDT) Only the most recent of2 resultswithin the time period is included. ABO O 06/12/2024 10:14 AM EDT [facility] RH Positive 06/12/2024 10:14 AM EDT [facility] 06/12/2024 6:30 AM EDT us Sue Curtis MD BLOOD BANK TEST ORDERABLES Fi nal Result Performing Organization Address City/[facility]/ZIP Co de Phone Number [facility] [address] [place] [address], [place] * Urine Drug Screen (06/11/2024 5:00 PM EDT) Amphetamine/metham phetamine Negative Negative^ Negative 06/11/2024 6:19 PM T [facility] Comment:AMPH/METH screening cut off = 1000 ng/mL Barbiturate Screen, Ur Negative Negative^ Negative 06/11/2024 6:19 PM [facility] Comment:Barbiturates screeni ng cut off value = 200 ng/mL Benzodiazepine Screen, Urine Negative Negative^ Negative 06/11/2024 6:19 PM [facility] Comment:Benzodiazepines scre ening cut off value = 200 ng/mL THC, urine Negative Negative^ Negative 06/11/2024 6:19 PM [facility] Comment:Cannabinoids/THC scr eening cut off value = 50 ng/mL Cocaine (metabolite) Negative Negative^ Negative 06/11/2024 6:19 PM [facility] Comment:Cocaine screening cu t off value = 300 ng/mL Opiate Quant, Ur Negative Negative^ Negative 06/11/2024 6:19 PM [facility] Comment: Opiates screening cut off value = 300 ng/mL NOTE: This test is used for the detection of codeine, hydrocodone (>1000 ng/mL), morphine and hydromorphone (>900 ng/mL) in urine. Phencyclidine Negative Negative^ Negative 06/11/2024 6:19 PM [facility] Comment:Phencyclidine screen ing cut off value = 25 ng/mL Oxycodone Negative Negative^ Negative 06/11/2024 6:19 PM [facility] Comment: Oxycodone screening cut off value = 300 ng/mL NOTE: This test is used for the detection of oxycodone and oxymorphone in urine. Methadone Negative Negative^ Negative 06/11/2024 6:19 PM [facility] Comment:Methadone screening cut off value = 300 ng/mL. Ecstasy Negative Negative^ Negative 06/11/2024 6:19 PM [facility] Comment: Ecstasy screening cut off value = 500 ng/mL This report is intended for use in clinical monitoring or management of patients. Urine / Unknown 06/11/2024 5 :00 PM EDT 06/11/2024 5:41 PM EDT us Kendrick Mahoney MD URINE ORDERABLES Final Result [facility] [address] [place] [address] * echo 2D W/ color flow (06/11/2024 [...] Total(Unknown Syphilis Status) (06/11/2024 3:22 PM EDT) Syphilis Total <0.2 0.0 - 0.8 AI 06/11/2024 7:23 PM EDT [facility] Comment: NON REACTIVE No serologic evidence of infection to Treponema pallidum (syphilis). Repeat testing may be considered in patients with suspected acute or primary syphilis in 2 to 4 weeks. Serum / Unknown 06/11/2024 3 :22 PM EDT 06/11/2024 3:24 PM EDT us Kendrick Mahoney MD LAB BLOOD ORDERABLES Final Re sult [facility] [address], [address] [place] [address] * (ABNORMAL) CBC auto differential (06/11/2024 3:22 PM EDT) White Blood Cells 8.9 4.0 - 11.0 X10E9/L 06/11/2024 3:50 PM EDT [facility] RBC count 4.30 3.80 - 5.20 X10E12/L 06/11/2024 3:50 PM EDT [facility] Hemoglobin 12.3 11.7 - 15.5 g/dL 06/11/2024 3:50 PM EDT [facility] Hematocrit 36.3 35 - 47 % 06/11/2024 3:50 PM EDT [facility] MCV 85 80 - 100 fL 06/11/2024 3:50 PM EDT [facility] MCH 28.6 27 - 34 pg 06/11/2024 3:50 PM EDT [facility] MCHC 33.8 32 - 36 g/dL 06/11/2024 3:50 PM EDT [facility] RDW 13.8 11.5 - 15.0 % 06/11/2024 3:50 PM EDT [facility] Platelets 231 150 - 450 X10E9/L 06/11/2024 3:50 PM EDT [facility] MPV 7.1 7 - 12 fL 06/11/2024 3:50 PM EDT [facility] % neutrophils 75.2 % 06/11/2024 3:50 PM EDT [facility] % lymphocytes 18.3 % 06/11/2024 3:50 PM EDT [facility] % monocytes 5.7 % 06/11/2024 3:50 PM EDT [facility] % eosinophils 0.4 % 06/11/2024 3:50 PM EDT [facility] % Basophils 0.4 % 06/11/2024 3:50 PM EDT [facility] Neutrophils Absolute (A) 6.7(H) 1.5 - 6.6 X10E9/L 06/11/2024 3:50 PM EDT [facility] Lymphocytes Absolute 1.6 1.0 - 3.5 X10E9/L 06/11/2024 3:50 PM EDT [facility] Monocytes Absolute 0.5 0 - 0.9 X10E9/L 06/11/2024 3:50 PM EDT [facility] Eosinophils Absolute 0.0 0.0 - 0.4 X10E9/L 06/11/2024 3:50 PM EDT [facility] Basophils Absolute 0.0 0.0 - 0.2 X10E9/L 06/11/2024 3:50 PM EDT [facility] Blood / Unknown 06/11/2024 3 :22 PM EDT 06/11/2024 3:24 PM EDT us Kendrick Mahoney MD LAB BLOOD ORDERABLES Final Re sult [facility] [address] [place] [address] * (ABNORMAL) Vitamin D 25 hydroxy (06/11/2024 3:22 PM EDT) Vit D, 25-Hydroxy 23.3(L) 30 - 100 ng/mL 06/11/2024 4:27 PM EDT [facility] Comment: Vitamin D status 25 [place] Vitamin D Deficiency <20 ng/mL Insufficiency 20-29 ng/mL Sufficiency 30-100 ng/mL Toxicity >100 ng/mL NOTE: A pediatric reference range has not been established by the billboard erector helper of this kit. The [place] [employer] recommends a Vitamin D level of = or >20ng/mL in infants and children. PLASMA 06/11/2024 3:22 PM EDT 06/11/2024 3:24 PM EDT us Kendrick Mahoney MD LAB BLOOD ORDERABLES Final Re sult Performing Organization Address City/[facility]/ZIP Co de Phone Number [facility] [address] [address], [address] [place] [address] * Phosphorus (06/11/2024 3:22 PM EDT) Phosphorus 4.0 2.4 - 4.9 mg/dL 06/11/2024 5:33 PM EDT [facility] PLASMA 06/11/2024 3:22 PM EDT 06/11/2024 3:24 PM EDT us Kendrick Mahoney MD LAB BLOOD ORDERABLES Final Re sult Performing Organization Address [facility] Co de Phone Number [facility] [address] [address], [address] [place] [address] * TSH (06/10/2024) Thyroid Stimulating (3Rd Generation) Hormone/ Tsh 1.480 MANUALLY TRANSCRIBED RESULTS us Not In System Ref Prov LAB BLOOD ORDERABLES Oralia l Result Performing Organization Address [facility]/ZIP Co de Phone Number MANUALLY TRANSCRIBED RESULTS * Ultrasound - Office (05/13/2024 11:31 AM EDT) Anatomical Region Laterality Modality AMB Ultrasound us Not In System Ref Prov IMG US ORDERABLES Final R esult from Last 3 Months Insurance [employer] Care Teams Beef Pluck Trimmer Relationship Specialty Start Date End Date Sarah Queen APRN-TIER TRUCK DRIVER [address] [place] [address] PCP - General Internal Medicine 09/03/23
--- OUTSIDE RECORDS SUMMARY | 2024-07-30 19:23 | XMS_ITS | Encounter Summary ---
Author Organization [facility] Address [address] [place] [address] Care Team Providers Care Casino Operations Supervisor Name Role Phone Terrence Mcintyre MD Primary Care Provider + [phone] Encounter Details Date Type Department Care Team (Late st Contact Info) Description 04/30/2024 Orders Only [facility] [address] [facility] [place] [phone] Annie Keith MA [address] [place] [address] [place] [address] Social History Tobacco Use Types Packs/Day Years [...] PM EDT Routine [facility] [address] [facility] [place] [phone] Ronald Fierro DO [address] [facility] [address] Ralph Dominguez, [facility]11 documented as of this encounter Procedures Procedure Name Priority Date/Time Associated Diagnosis Comments PAP SMEAR Routine 04/15/2024 12:00 AM EST documented in this encounter Results * Pap Smear (04/15/2024 12:00 AM EST) Swab Cervical swab / Unknown Chelsea DIAZ [facility] CYTOLOGY ORDERABLES Final Re sult EXTERNAL LAB documented in this encounter Visit Diagnoses Not on filedocumented in this encounter Care Teams Casino Operations Supervisor Relationship Specialty Start Date End Date Terrence Mcintyre MD [address] [facility], [place] [address] PCP - General Family Medicine 02/11/24 documented as of this encounter
--- OUTSIDE RECORDS SUMMARY | 2024-07-30 19:23 | XMS_ITS | Encounter Summary ---
Author Organization [facility] tem Address [id number] [address] [place] [address] Care Team Providers Care Contract Loader Name Role Phone Sarah Queen APRN-BAIL ATTACHER Primary Care Provider + Reason for Referral * Diagnostic Imaging (Routine) - Pending Review Specialty Diagnoses / Procedures Referred By Jess loza Referred To Contact Maternal and Medicine Diagnoses Gestational diabetes mellitus (GDM) in third trimester, gestational diabetes method of control unspecified Supraventricular tachycardia of fetus affecting management of Excessive growth affecting management of in second trimester, single or unspecified fetus Polyhydramnios affecting Procedures US [facility] with or without consult Berto Lowry MD [address] [facility], [address] [place] [address] Phone: tel: fax: Maternal- Medicine at [facility] [address] [place] [address] Phone: tel: fax: Referral ID Status Reason Start Date Expiration Date V isits Requested Visits Authorized [id number] Pending Review 07/28/2024 07/28/2025 1 1 Encounter Details Date Type Department Care Team (Late st Contact Info) Description 07/28/2024 Orders Only Maternal- Medicine at [facility] [address] [place] [address] Chelsea Segura LPN Gestational diabetes mellitus (GDM) in third trimester, gestational diabetes method of control unspecified (Primary Dx); Supraventricular tachycardia of fetus affecting management of ; Excessive growth affecting management of in second trimester, single or unspecified fetus; Polyhydramnios affecting Social History Tobacco Use Types Packs/Day Years [...] Health Services - Women's Services [address] [place] [phone] [facility], [address] [place] [address] 08/07/2024 3:30 PM EDT Appointment [facility] - [facility] US Imaging [address] [place] [address] Scheduled Orders Name Type Priority Associated Diagnoses Orde r Schedule US [facility] with or without consult Imaging Routine Gestational diabetes mellitus (GDM) in third trimester, gestational diabetes method of control unspecified Supraventricular tachycardia of fetus affecting management of Excessive growth affecting management of in second trimester, single or unspecified fetus Polyhydramnios affecting Expected: 07/28/2024, Expires: 07/28/2025 documented as of this encounter Visit Diagnoses Diagnosis Gestational diabetes mellitus (GDM) in third trimester, gestational diabetes method of control unspecified- Primary Supraventricular tachycardia of fetus affecting management of Excessive growth affecting management of in second trimester, single or unspecified fetus Polyhydramnios affecting documented in this encounter Additional Health Concerns Assessment Noted Time PHQ-9 Depression Total Score: 0 05/29/19 23 11:03 AM EDT documented as of this encounter Care Teams Contract Loader Relationship Specialty Start Date End Date Sarah Queen APRN-BAIL ATTACHER [address] [place] [address] PCP - General Internal Medicine 09/03/23 documented as of this encounter
--- OUTSIDE RECORDS SUMMARY | 2024-07-30 19:23 | XMS_ITS | Encounter Summary ---
Author Organization [employer] s tem Address [id number] [address] [place] [address] Care Team Providers Care Yard Assistant Name Role Phone Sarah Queen Arnaud FIELD TECH-ENGINEER SOILS Primary Care Provider + Encounter Details Date Type Department Care Team (Late st Contact Info) Description 07/28/2024 Telephone [facility] Services - Women's Services [address] [place] [phone] Leidy Gonzalez RN Social History Tobacco Use Types Packs/Day Years [...] encounter Miscellaneous Notes * Telephone Encounter - Leidy Gonzalez RN - 07/28/2024 11:12 AM EDT Received refill request for MAG OX Please advise * Telephone Encounter - Marina Field DO - 07/28/2024 11:12 AM EDT Rx sent documented in this encounter Plan of Treatment Upcoming Encounters Date Type Department Care Team (Late st Contact Info) Description 08/04/2024 9:00 AM EDT Routine [facility] Health Services - Women's Services [address] [place] [address] Shira Staples MD [address] [place] [address], [address] [place] [address] 08/07/2024 3:30 PM EDT Appointment [facility] Imaging [address] [place] [address] documented as of this encounter Visit Diagnoses Not on filedocumented in this encounter Additional Health Concerns Assessment Noted Time PHQ-9 Depression Total Score: 0 05/29/19 23 11:03 AM EDT documented as of this encounter Care Teams Yard Assistant Relationship Specialty Start Date End Date Sarah Queen APRN-ENGINEER SOILS [address] [place] [address] PCP - General Internal Medicine 09/03/23 documented as of this encounter
--- OUTSIDE RECORDS SUMMARY | 2024-07-30 19:23 | XMS_ITS | Encounter Summary ---
Author Organization [facility] Address [address] [place] [address] Care Team Providers Care Crayon Painter Name Role Phone Terrence Mcintyre MD Primary Care Provider + [phone] Encounter Details Date Type Department Care Team (Late st Contact Info) Description 06/11/2024 External Result Encounter [facility] [address] [place] [address] Phil Fierro [facility] [address] [place], [facility] Social History Tobacco Use Types Packs/Day Years [...] Description 08/12/2024 3:40 PM EDT Routine [facility] OB [facility] [place] [address] Phil Fierro DO [facility] [address] [place], [place] [id number] documented as of this encounter Procedures Procedure Name Priority Date/Time Associated Diagnosis Comments US OB 14+ WEEKS ANATOMY SCAN 06/11/2024 4:38 PM EDT documented in this encounter Results * US OB 14+ weeks anatomy scan (06/11/2024 4:38 PM EDT) Anatomical Region Laterality Modality Body Ultrasound 06/11/2024 4:38 PM EDT Narrative 06/11/2024 4:38 PM EDT THIS EXAM WAS PERFORMED AT [facility] NAME: SCOTTY CAMERON : 1995 SEX: F Accession Number: [id number] ORDERING PHYSICIAN: PHIL FIERRO REFERRING PHYSICIAN: PHIL FIERRO Coding ----- --------- Procedures [id number]: Ultrasound, uterus, real time with image documentation, and maternal evaluation plus detailed anatomic examination, transabdominal approach;single or first gestation [id number]: Echocardiography, , cardiovascular system, real time with image documentation (2D), with or without M-mode recording Indication ----- --------- Screening for Anatomic Survey , tachycardia, Polyhydramnios History ----- --------- OB History 2. Para 1 [id number] Maternal Assessment ----- --------- Physical Exam Height [...] 3 lb 5 oz EFW by Hadlock ([id number]) Head / Face / Neck Biometry: Cephalic index 0.76 23% Nicolaides Loan Officer Assistant 5.8 mm CM 3.5 mm <1% Nicolaides [...] view. RVOT view. LVOT view. 3-vessel view. 2-tpgnfk-wrldqex view. Right lung. Left lung. Diaphragm. Abdomen: [...] normal RVOT view normal 3-vessel view normal 9-ighwpp-wmcevea view normal Aortic arch view normal Ductal [...] 9.3 cm. Recommendations ----- --------- Please see [facility] documentation from today. The patient is scheduled in four to six week(s) to complete anatomic survey and echocardiogram. Admit to Labor and Delivery for further evaluation. Subsequent follow up or other follow up as clinically determined by primary OB provider unless otherwise specified by [facility]. Results forwarded to ordering provider so they can follow up with the patient as necessary. Procedure Note Radiology, Radiologist, - 06/11/2024 THIS EXAM WAS PERFORMED AT [facility] NAME: SCOTTY CAMERON : 1995 SEX: F Accession Number: [id number] ORDERING PHYSICIAN: PHIL FIERRO REFERRING PHYSICIAN: PHIL FIERRO Coding ----- --------- Procedures [id number]: Ultrasound, uterus, real time with imagedocumentation, and maternal evaluation plus detailed anatomic examination, transabdominalapproach;single or first gestation [id number]: Echocardiography, , cardiovascular system, real timewith image documentation (2D), with or without M-mode recording Indication ----- --------- Screening for Anatomic Survey , tachycardia, Polyhydramnios History ----- --------- OB History 2. Para 1 [id number] Maternal Assessment ----- --------- Physical Exam Height [...] 3 lb 5 oz EFW by Hadlock ([id number]) Head / Face / Neck Biometry: Cephalic index 0.76 23% Nicolaides Loan Officer Assistant 5.8 mm CM 3.5 mm <1% Nicolaides [...] 4-chamber view. RVOT view. LVOT view. 3-vessel view.5-kxyyxi-zylsfhm view. Right lung. Left lung. Diaphragm. Abdomen: [...] normal RVOT view normal 3-vessel view normal 5-qitfxu-msuntxd view normal Aortic arch view normal Ductal [...] on filedocumented in this encounter Care Teams Crayon Painter Relationship Specialty Start Date End Date Terrence Mcintyre MD [address] [facility] [place] [address] PCP - General Family Medicine 02/11/24 documented as of this encounter
--- OUTSIDE RECORDS SUMMARY | 2024-07-30 19:24 | XMS_ITS | CCD ---
Author Organization [facility] Care Team Providers Care Transportation Museum Helper Name Role Phone HEIDY, DR MECHELLE Serrano Attending Unavailable HEIDY, DR MECHELLE Serrano Consulting Unavailable HEIDY, DR MECHELLE Serrano Admitting Unavailable Naomy Marianna Unavailable Terrence Ventura MD Primary Care Provider Karyna [employer]WORK ENGINEER-[facility], Chavez Lares Primary Care Provider Terrence Ventura MD Primary Care Provider Karyna [employer]WORK ENGINE[employer]-[facility], Chavez Lares Primary Care Provider ROSALBA BAER Attending Unavailable RONALD FIERRO Attending Unavailable RONALD FIERRO Attending Unavailable HYUN CHELSEA Attending Unavailable HYUN, CHELSEA Referring Unavailable HYUN CHELSEA Attending Unavailable SRISHAHEENY Attending Unavailable KARYNA, CHAVEZ L Referring Unavailable KARYNA, CHAVEZ L Primary Care Unavailable KARYNA, CHAVEZ L Primary Care Unavailable SHAHEEN FIERROY R Referring Unavailable KARYNA, CHAVEZ L Primary Care Unavailable RONALD FIERRO R Referring Unavailable SHAY, CLAUDEEN K F Referring Unavaila ble KARYNA, CHAVEZ L Primary Care Unavailable YSABEL, ESTEFANI S Referring Unavailable KARYNA, CHAVEZ L Primary Care Unavailable SHAY, CLAUDEEN K F Referring Unavaila ble KARYNA, [...] Unavailable KARYNA, CHAVEZ L Primary Care Unavailable BERTO SUÁREZ Attending Unavailable SRI, RONALD R Referring Unavailable KARYNA, CHAVEZ L Primary Care Unavailable MARGOTH CONNOR Attending UnavailANIA Contreras Referring Unavailable KARYNA, CHAVEZ L Primary Care Unavailable KARYNA, CHAVEZ L Primary Care Unavailable SRI, RONALD R Referring Unavailable SRI, RONALD R Referring Unavailable KARYNA, CHAVEZ L Primary Care Unavailable MIGDALIA FERNANDEZ Attending Unavailable SRI, RONALD [...] R Referring Unavailable VANESA SEGOVIA Admitting Unavailable VNAESA SEGOVIA Attending Unavailable KARYNA, CHAVEZ L Primary Care Unavailable MEHREEN SHAY Consulting Unavaila KATLYN Sheldon Consulting Unavailable LARISSA DIAZ Consulting Unavailable AHMET VALVERDE Consulting Unavailable BERTO SUÁREZ Attending Unavailable SRI, RONALD R Referring Unavailable KARYNA, CHAVEZ L Primary Care Unavailable Medications Current Medications Medication Drug Class(es) [...] 6 tablet 04/03/2024 Active blood-glucose meter misc (10 sources) Start: 07-06-2024 blood-glucose meter misc Indications: Diet controlled gestational diabetes mellitus (GDM) in third trimester Please check blood glucose fasting and 1 hour after each meal 1 each 07/06/2024 Active Start: 06-26-2024 End: 07-06-2024 blood-glucose meter [facility] Ind ications: Diet controlled gestational diabetes mellitus (GDM) in third trimester Please check blood glucose fasting and 1 hour after each meal 1 each 06/26/2024 07/06/2024 Discontinued (Reorder) Start: 06-26-2024 blood-glucose meter [facility] Indications: Diet controlled gestational diabetes mellitus (GDM) in third trimester Please check blood glucose fasting and 1 hour after each meal 1 each 06/26/2024 Active blood-glucose sensor (FREEST YLE MADHAVI 3 PLUS SENSOR) device (10 sources) Start: 07-06-2024 blood-glucose sensor (FREESTYLE MADHAVI 3 PLUS SENSOR) device Indications: Diet controlled gestational diabetes mellitus (GDM) in third trimester Wear for 15 days and change 2 each 3 07/06/2024 Active Start: 06-26-2024 End: 07-06-2024 blood-glucose sensor (FREEST YLE MADHAVI 3 PLUS SENSOR) device Indications: Diet controlled gestational diabetes mellitus (GDM) in third trimester Wear for 15 days and change 2 each 3 06/26/2024 07/06/2024 Discontinued (Reorder) Start: 06-26-2024 blood-glucose sensor (FREESTYLE MADHAVI 3 PLUS SENSOR) device Indications: Diet controlled gestational diabetes mellitus (GDM) in third trimester Wear for 15 days and change 2 each 3 06/26/2024 Active calcium carbonate 1250 mg / cholecalciferol 200 unt oral tablet (18 sources) Vitamin D Start: 06-28-2024 take 1 [...] 06/28/2024 Active digoxin 0.25 mg oral tablet (18 sources) Cardiac Glycoside Start: 06-28-2024 take 1 [...] (twelve) hours. 60 tablet 3 06/28/2024 Active famotidine 40 mg oral tablet (3 sources) Histamine-2 Receptor Antagonist take 1 tablet by mouth in the morning famotidine (PEPCID) 40 mg tablet Take 1 tablet (40 mg total) by mouth in the morning. Active isopropyl alcohol 0.7 ml/ml medicated pad (10 sources) Start: 06-27-19 End: 07-07-19 alcohol swabs pads, medicated Indications: Diet controlled gestational diabetes mellitus (GDM) in third trimester To use when performing a fingerstick 200 each 07/06/2024 Active magnesium oxide 400 mg oral tablet (18 sources) Start: 06-29-19 take 1 tablet by mouth in the morning magnesium oxide (Mag-Ox) 400 MG tablet Take 400 mg by mouth in the morning and 400 mg in the evening. 06/28/2024 Active omeprazole 20 mg delayed release oral capsule (7 sources) Proton Pump Inhibitor Start: 07-08-19 End: 08-07-19 take 1 capsule by mouth before mealtime omeprazole (PriLOSEC) [address] capsule Indications: Gastroesophageal Reflux Disease , Heartburn Take 1 capsule (20 mg) by mouth in the morning. Take before meals. Do not crush or chew. 30 capsule 3 07/07/2024 08/06/2024 Active ondansetron 4 mg oral tablet (20 sources) Serotonin-3 Receptor Antagonist Start: 05-29-19 take 1 tablet by mouth every eight [...] 10 5 April 04, 2024 12:00am Pnv,Calcium 61-Eaeo-Fdybk Acid ( Vitamin Plus Low Iron) 27 mg iron- 1 mg tablet (1 source) Start: 04-04-2024 take 1 tablet by mouth once daily Pnv,Calcium 38-Azhb-Cxnzd Acid ( Vitamin Plus Low Iron) 27 mg iron- 1 mg tablet Active 1 TAB PO Daily April 04, 2024 12:00am potassium chloride 10 meq extended release oral tablet (18 sources) Start: 06-28-2024 take 5 tablets by mouth in the morning potassium chloride CR (Klor-Con) 10 MEQ ER tablet Take 50 mEq by mouth in the morning. 06/28/2024 Active cz106-qsat-hphyo acid ( 19) 29 mg iron- 1 mg tablet,chewable (18 sources) yv470-uzxm-idfnd acid ( 19) 29 mg iron- 1 mg tablet,chewable Chew 1 tablet and swallow in the morning. Active ro383-z enrique-folic acid ( 19) 29 mg iron- [...] Vit-Fe Fumarate-FA ( Plus) 27-1 MG tablet (9 sources) Vit-Fe Fumarate-FA ( Plus) 27-1 MG tablet Active Vit-Fe Fumarate-FA ( Vitamins) 28-0.8 MG tablet (14 sources) Start: 05-11-2024 End: 05-11-2025 take 1 tablet by mouth once daily Vit-Fe Fumarate-FA ( Vitamins) 28-0.8 MG tablet Indications: Second trimester Take 1 tablet by mouth Daily 30 tablet 11 05/11/2024 05/11/2025 Active sotalol hydrochloride 160 mg oral tablet (18 sources) Antiarrhythmic Start: 06-28-2024 take 1 tablet [...] fumarate / Norethindrone (11 sources) Estrogen Start: 03-05-2022 FE 03/23, 28, 1 mg-20 mcg (21)/75 mg (7) per tablet TAKE 1 TABLET DAILY 84 tablet 03/05/2022 Suspended Start: 03-05-2022 FE 03/23, 28, 1 mg-20 mcg (21)/75 mg (7) per tablet TAKE 1 TABLET DAILY 84 tablet 03/05/2022 Active Problems Active Problems Problem Classification Problem Date Documented Date Episodic/Chronic Conditions associated with dizziness or vertigo (1 source) Dizziness and giddiness; Translations: [Dizziness and giddiness] Onset: 06-11-2024 Episodic Diabetes or abnormal glucose tolerance complicating ; childbirth; or the puerperium (14 sources) Gestational diabetes mellitus; Translations: [Gestational diabetes [...] 06-11-2024 Episodic Other aftercare (1 source) Other vermin exterminator (current) drug therapy; Translations: [Other vermin exterminator (current) drug therapy] Onset: 06-11-2024 Episodic Other complications of (20 sources) tachycardia affecting management of mother; Translations: [Maternal care for abnormalities of the heart rate or rhythm, unspecified trimester, not applicable or unspecified] Onset: 06-11-2024 06-10-2024 Episodic Other complications of (20 sources) Excessive growth affecting management of mother; Translations: [Maternal care for excessive growth, second trimester, not applicable or unspecified] Onset: 06-11-2024 06-11-2024 Episodic Other complications of (2 sources) Maternal care for abnormalities of the heart rate or rhythm, unspecified trimester, not applicable or unspecified; Translations: [Maternal care for abnormalities of the heart rate or rhythm, unspecified trimester, not applicable or unspecified] Onset: 07-10-2024 Episodic Other complications of (2 sources) Maternal care for excessive growth, second trimester, [...] trimester, not applicable or unspecified] Onset: 06-11-2024 Resolved: 07-23-2024 06-11-2024 Episodic Residual codes; unclassified (1 source) [...] [32 weeks gestation of ] 07-15-2024 Episodic Residual codes; unclassified (1 source) Gestation period, 33 weeks; Translations: [33 weeks gestation of ] 07-17-2024 Episodic Residual codes; unclassified (2 sources) Gestation period, 34 weeks; Translations: [34 weeks gestation of ] 07-29-2024 Episodic Unclassified (3 sources) CONTACT W/AND (SUSP) EXPOS COVID-19; Translations: [CONTACT W/AND (SUSP) EXPOS COVID-19] Onset: 12-07-2020 Unclassified (1 source) High Risk Gestation Onset: 07-24-2024 Unclassified (1 source) Polyhydraminos Onset: 07-17-2024 Unclassified (1 source) Initial Visit Onset: 07-10-2024 Unclassified (1 source) Gestational Diabetes Onset: 07-06-2024 Past or Other Problems Problem Classification Problem Date Documented Da te Episodic/Chronic Mood disorders (20 sources) Mood disorders Onset: 05-28-2022 05-28-2022 Unclassified [...] Range Facility Urinalysis macro (dipstick) panel (U)on 07-29-2024 Bilirubin, UA Negative Negative - 4(70) +++ mg/dL [facility] Blood, UA Negative Negative - 50 Jordan/mcL [facility] Clarity, UA Clear [facility] Healthil re Color, UA Yellow [facility]car e Glucose, UA Negative Negative - 1999(110) ++++ mg/dL [facility] Interpretation and review of laboratory results Abnormal [facility] Ketones, UA Positive Negative - 160(16) ++++ mg/dL [facility] Leukocytes, UA Negative Negative - 500+++ Leanne/mcL [facility] Nitrite, UA Negative Negative - Positive [facility] pH, UA 6.5 5 - 9 [facility] Protein, UA Negative Negative - 1999(20) ++++ mg/dL [facility] Spec Grav, UA 1.02 1 - 1.03 [facility] Urobilinogen, UA 1.0 0.2 - 12 mg/dL [facility] e US OB BPP W NON-STRESS on 07-17-[address] [address] Ultrasound Report Signed Patient: NISHA MTZ MR#: [id number] : 1995 Acct:[id number] Age/Sex: 28 / F ADM Date: 07/16/24 Loc: US Attending Dr: Ronald Fierro D.O. Ordering Physician: Ronald Fierro D.O. Date of Service: 07/16/24 Procedure(s): US OB BPP w non-stress Accession Number(s): [id number] cc: TERRENCE VENTURA ; Ronald Fierro D.O. [address] [address] Patient Name: NISHA MTZ MRN: [facility]:[id number] date: 1995 Sex: F Assigned Patient Location: [facility] Current Patient Location: Accession/Order Number: [id number] Exam Date: 07/17/2024 06:44 Report Date: 07/17/2024 06:48 At the request of: RONALD FIERRO DO Procedure: US OB BPP w non-stress US OB BPP w non-stress 07/16/2024 7:50 PM SIGNS AND SYMPTOMS: 12/05/2023 Polyhydraminos, supraventricular tachycarida PROTOCOL: Grayscale and color Doppler sonographic images of the pelvis were obtained COMPARISON: 07/09/2024 FINDINGS: The benzol still operator reports a BPP of 8 out of 8. SKYLAR is normal at 25.2 cm. heart rate 128 bpm. US/US OB BPP w non-stress Impression: BPP 8 out of 8. Impression dictated by: Jorge Lam M.D. 07/17/2024 6:48 AM Dictation Location: [place] [address] Electronically authenticated by: [id number] Y Date: 07/17/2024 06:48 Dictated By: Jorge Lam M.D. Signed By: 07/17/24 0651 DD/ 0648 TD/TT: Spent Grain Dryer: [facility] Radiology, Radiologist, MD - 07/17/2024 [place] [address] Ultrasound Report Signed Patient: NISHA MTZ MR#: [id number] : 1995 Acct:[id number] Age/Sex: 28 / F ADM Date: 07/16/24 Loc: US Attending Dr: Ronald Fierro D.O. Ordering Physician: Ronald Fierro D.O. Date of Service: 07/16/24 Procedure(s): US OB BPP w non-stress Accession Number(s): [id number] cc: TERRENCE VENTURA ; Ronald Fierro D.O. The [address] [address] Patient Name: NISHA MTZ MRN: [id number] date: 1995 Sex: F Assigned Patient Location: [facility] Current Patient Location: Accession/Order Number: [id number] Exam Date: 07/17/2024 06:44 Report Date: 07/17/2024 06:48 At the request of: RONALD FIERRO DO Procedure: US OB BPP w non-stress US OB BPP w non-stress 07/16/2024 7:50 PM SIGNS AND SYMPTOMS: 12/05/2023 Polyhydraminos, supraventricular tachycarida PROTOCOL: Grayscale and color Doppler sonographic images of the pelvis were obtained COMPARISON: 07/09/2024 FINDINGS: The benzol still operator reports a BPP of 8 out of 8. SKYLAR is normal at 25.2 cm. heart rate 128 bpm. US/US OB BPP w non-stress Impression: BPP 8 out of 8. Impression dictated by: Jorge Lam M.D. 07/17/2024 6:48 AM Dictation Location: [place] [address] Electronically authenticated by: [id number] Y Date: 07/17/2024 06:48 Dictated By: Jorge Lam M.D. Signed By: 07/17/24 0651 DD/ 0648 TD/TT: Spent Grain Dryer: [facility] Radiology Study observation (narrative) [facility] US OB BPP W NON-STRESS Ordered By: Radiologist Radiology on 07-17-2024 [facility] Work Phone: Urinalysis macro (dipstick) panel (U)on 07-15-2024 Bilirubin, UA Negative Negative - 4(70) +++ mg/dL [facility] Blood, UA Negative Negative - 50 Jordan/mcL [facility] Clarity, [facility], UA Yellow [facility] e Glucose, UA Negative Negative - 2000(110) ++++ mg/dL [facility] Interpretation and review of laboratory results Normal [facility] Ketones, UA Negative Negative - 160(16) ++++ mg/dL [facility] Leukocytes, UA Negative Negative - 500+++ Leanne/mcL [facility] Nitrite, UA Negative Negative - Positive [facility] Healthcare pH, UA 6 5 - 9 [facility] Protein, UA Negative Negative - 1999(20) ++++ mg/dL [facility] Spec Grav, UA 1.02 1 - 1.03 [facility] care Urobilinogen, UA 0.2 0.2 - 12 mg/dL [facility] Glucose random or fasting- P OCTOrdered By: Ravinder Burnett on 07-06-2024 External Glucose Fasting Or Random (Fbs) [address] [facility] Urinalysis macro (dipstick) panel (U)on 06-30-2024 Bilirubin, UA Negative Negative - 4(70) +++ mg/dL [facility] Blood, UA Negative Negative - 50 Jordan/mcL [facility] Clarity, UA Clear [facility] Health[facility] re Color, UA Yellow [facility] Glucose, UA Negative Negative - 1999(110) ++++ mg/dL [facility] Interpretation and review of laboratory results Abnormal [facility] Ketones, UA Positive Negative - 160(16) ++++ mg/dL [facility] Leukocytes, UA Negative Negative - 500+++ Leanne/mcL [facility] Nitrite, UA Negative Negative - Positive [facility] pH, UA 6 5 - 9 [facility] Healthcar e Protein, UA Negative Negative - 1999(20) ++++ mg/dL [facility] Spec Grav, UA 1.025 1 - 1.03 [facility] Urobilinogen, UA 1.0 0.2 - 12 mg/dL [facility] BEDSIDE GLUCOSEon 06-28-2024 Glucose [Mass/Vol] 124 mg/dL High 65-99 [facility] Comment on above: Performed By: #### 1 9123-9, [facility], 78836-3, 50358-5, 2777-1, CBCA #### [facility] ([id number]) [address] [place] [address] Glucose [Mass/Vol] 92 mg/dL Normal 65-99 [facility] Comment on above: Performed By: #### 1 9123-9, CMP, 31335-7, 04073-8, 2777-1, CBCA #### [facility] ([id number]) [address], [address] [place] [address] COMPREHENSIVE METABOLIC PANE Ab 06-28-2024 Albumin [Mass/Vol] 3.3 g/dL Normal 3.2-5.3 [facility] Comment on above: Performed By: #### 1 9123-9, CMP, 78381-5, 03608-3, 2777-1, CBCA #### [facility] ([id number]) [address], [address] [place] [address] ALP [Catalytic activity/Vol] 74 U/L Normal 39-130 [facility] Comment on above: Performed By: #### 1 9123-9, CMP, 72182-1, 16113-2, 2777-1, CBCA #### [facility] ([id number]) [address], [address] [place] [address] ALT [Catalytic activity/Vol] 8 U/L Normal <=31 [facility] Comment on above: Performed By: #### 1 9123-9, CMP, 87126-4, 78832-1, 2777-1, CBCA #### [facility] ([id number]) [address], [address] [place] [address] Anion gap [Moles/Vol] 12 mmol/L Normal 5-15 [facility] Comment on above: Performed By: #### 1 9123-9, CMP, 08136-4, 76422-8, 2777-1, CBCA #### [facility] ([id number]) [address], [address] [place] [address] AST [Catalytic activity/Vol] 13 U/L Normal <=41 [facility] Comment on above: Performed By: #### 1 9123-9, CMP, 84067-8, 35398-6, 2777-1, CBCA #### [facility] ([id number]) [address], [address] [place] [address] Bilirubin [Mass/Vol] 0.4 mg/dL Normal 0.3-1.2 [facility] Comment on above: Performed By: #### 1 9123-9, CMP, 84140-9, 14796-6, 2777-1, CBCA #### [facility] ([id number]) [address], [address] [place] [address] Calcium [Mass/Vol] 9.0 mg/dL Normal 8.5-10.5 [facility] Comment on above: Performed By: #### 1 9123-9, CMP, 91445-2, 65089-4, 2777-1, CBCA #### [facility] ([id number]) [address], [address] [place] [address] Chloride [Moles/Vol] 106 mmol/L Normal 98-109 [facility] Comment on above: Performed By: #### 1 9123-9, CMP, 71723-9, 62797-5, 2777-1, CBCA #### [facility] ([id number]) [address], [address] [place] [address] CO2 [Moles/Vol] 21 mmol/L Low 22-32 [facility] Comment on above: Performed By: #### 1 9123-9, CMP, 23136-9, 44431-4, 2777-1, CBCA #### [facility] ([id number]) [address], [address] [place] [address] Creatinine [Mass/Vol] 0.35 mg/dL Low 0.40-1.00 [facility] Comment on above: Result Comment: METH OD TRACEABLE TO IDMS STANDARD Performed By: #### 1 9123-9, CMP, 56868-9, 54046-5, 2777-1, CBCA #### [facility] ([id number]) [address], [address] [place] [address] EGFR (CKD-EPI) NON-RACE DEPENDENT >^90 Normal >=60 [facility] Comment on above: Result Comment: Repo rted eGFR is based on the CKD-EPI 2020 equation that does not use a race coefficient. Performed By: #### 1 9123-9, CMP, 77224-7, 25821-2, 2777-1, CBCA #### [facility] ([id number]) [address], [address] [place] [address] Glucose [Mass/Vol] 94 mg/dL Normal 65-99 [facility] Comment on above: Performed By: #### 1 9123-9, CMP, 49679-2, 68358-4, 2777-1, CBCA #### [facility] ([id number]) [address], [address] [place] [address] Potassium [Moles/Vol] 3.6 mmol/L Normal 3.5-5.0 [facility] Comment on above: Performed By: #### 1 9123-9, CMP, 93667-1, 27389-2, 2777-1, CBCA #### [facility] ([id number]) [address], [address] [place] [address] Protein [Mass/Vol] 5.7 g/dL Low 6.0-8.0 [facility] Comment on above: Performed By: #### 1 9123-9, CMP, 78212-6, 45131-9, 2777-1, CBCA #### [facility] ([id number]) [address], [address] [place] [address] Sodium [Moles/Vol] 139 mmol/L Normal 134-146 [facility] Comment on above: Performed By: #### 1 9123-9, CMP, 98114-8, 38621-5, 2777-1, CBCA #### [facility] ([id number]) [address], [address] [place] [address] Urea nitrogen [Mass/Vol] 6 mg/dL Normal 5-23 [facility] Comment on above: Performed By: #### 1 9123-9, CMP, 70591-6, 86353-5, 2777-1, CBCA #### [facility] ([id number]) [address], [address] [place] [address] COMPREHENSIVE METABOLIC PANE Ab 06-27-2024 Albumin [Mass/Vol] 3.3 g/dL Normal 3.2-5.3 [facility] Comment on above: Performed By: #### 1 9123-9, CMP, 90507-4, 86181-7, 2777-1, CBCA #### [facility] ([id number]) [address], [address] [place] [address] ALP [Catalytic activity/Vol] 71 U/L Normal 39-130 [facility] Comment on above: Performed By: #### 1 9123-9, CMP, 37860-9, 11175-0, 2777-1, CBCA #### [facility] ([id number]) [address], [address] [place] [address] ALT [Catalytic activity/Vol] 7 U/L Normal 0-31 [facility] Comment on above: Performed By: #### 1 9123-9, CMP, 17819-6, 19775-4, 2777-1, CBCA #### [facility] ([id number]) [address], [address] [place] [address] Anion gap [Moles/Vol] 10 mmol/L Normal 5-15 [facility] Comment on above: Performed By: #### 1 9123-9, CMP, 01676-5, 11936-6, 2777-1, CBCA #### [facility] ([id number]) [address], [address] [place] [address] AST [Catalytic activity/Vol] 11 U/L Normal 0-41 [facility] Comment on above: Performed By: #### 1 9123-9, CMP, 52191-3, 35280-6, 2777-1, CBCA #### [facility] ([id number]) [address], [address] [place] [address] Bilirubin [Mass/Vol] 0.4 mg/dL Normal 0.3-1.2 [facility] Comment on above: Performed By: #### 1 9123-9, CMP, 15650-6, 89634-5, 2777-1, CBCA #### [facility] ([id number]) [address], [address] [place] [address] Calcium [Mass/Vol] 9.0 mg/dL Normal 8.5-10.5 [facility] Comment on above: Performed By: #### 1 9123-9, CMP, 21790-4, 88362-4, 2777-1, CBCA #### [facility] ([id number]) [address], [address] [place] [address] Chloride [Moles/Vol] 105 mmol/L Normal 98-109 [facility] Comment on above: Performed By: #### 1 9123-9, CMP, 61170-6, 66638-1, 2777-1, CBCA #### [facility] ([id number]) [address], [address] [place] [address] CO2 [Moles/Vol] 22 mmol/L Normal 22-32 [facility] Comment on above: Performed By: #### 1 9123-9, CMP, 93938-4, 88632-4, 2777-1, CBCA #### [facility] ([id number]) [address], [address] [place] [address] Creatinine [Mass/Vol] 0.30 mg/dL Low 0.40-1.00 [facility] Comment on above: Result Comment: METH OD TRACEABLE TO IDMS STANDARD Performed By: #### 1 9123-9, CMP, 14707-2, 50134-7, 2777-1, CBCA #### [facility] ([id number]) [address], [address] [place] [address] eGFR (CKD-EPI) NON-RACE DEPENDENT >90 Normal >59 [facility] Comment on above: Result Comment: Reported eGFR is based on the CKD-EPI 2020 equation that does not use a race coefficient. Performed By: #### 1 9123-9, CMP, 94408-3, 56889-6, 2777-1, CBCA #### [facility] ([id number]) [address], [address] [place] [address] Glucose [Mass/Vol] 104 mg/dL High 65-99 [facility] Comment on above: Performed By: #### 1 9123-9, CMP, 87032-5, 58867-8, 2777-1, CBCA #### [facility] ([id number]) [address], [address] [place] [address] Potassium [Moles/Vol] 3.5 mmol/L Normal 3.5-5.0 [facility] Comment on above: Performed By: #### 1 9123-9, CMP, 09447-7, 02481-0, 2777-1, CBCA #### [facility] ([id number]) [address], [address] [place] [address] Protein [Mass/Vol] 5.6 g/dL Low 6.0-8.0 [facility] Comment on above: Performed By: #### 1 9123-9, CMP, 65586-1, 32929-7, 2777-1, CBCA #### [facility] ([id number]) [address], [address] [place] [address] Sodium [Moles/Vol] 137 mmol/L Normal 134-146 [facility] Comment on above: Performed By: #### 1 9123-9, CMP, 75441-6, 44842-6, 2777-1, CBCA #### [facility] ([id number]) [address], [address] [place] [address] Urea nitrogen [Mass/Vol] 6 mg/dL Normal 5-23 [facility] Comment on above: Performed By: #### 1 9123-9, CMP, 03887-9, 85408-9, 2777-1, CBCA #### [facility] ([id number]) [address], [address] [place] [address] Glucose Glucometer (BldC) [M ass/Vol]on 06-27-2024 Glucose [Mass/Vol] 102 mg/dL High 65-99 [facility] Glucose [Mass/Vol] 115 mg/dL High 65-99 [facility] Glucose [Mass/Vol] 183 mg/dL High 65-99 [facility] Glucose [Mass/Vol] 156 mg/dL High 65-99 [facility] Glucose [Mass/Vol] 108 mg/dL High 65-99 [facility] MAGNESIUMon 06-27-2024 Magnesium [Mass/Vol] 1.5 mg/dL Low 1.8-2.6 [facility] Comment on above: Performed By: #### 1 9123-9, CMP, 51311-5, 04914-3, 2777-1, CBCA #### [facility] ([id number]) [address], [address] [place] [address] COMPREHENSIVE METABOLIC PANE Ab 06-26-2024 Albumin [Mass/Vol] 3.4 g/dL Normal 3.2-5.3 [facility] Comment on above: Performed By: #### 1 9123-9, CMP, 25578-1, 77721-0, 2777-1, CBCA #### [facility] ([id number]) [address], [address] [place] [address] ALP [Catalytic activity/Vol] 70 U/L Normal 39-130 [facility] Comment on above: Performed By: #### 1 9123-9, CMP, 53759-4, 67768-4, 2777-1, CBCA #### [facility] ([id number]) [address], [address] [place] [address] ALT [Catalytic activity/Vol] 8 U/L Normal 0-31 [facility] Comment on above: Performed By: #### 1 9123-9, CMP, 15386-6, 55197-5, 2777-1, CBCA #### [facility] ([id number]) [address], [address] [place] [address] Anion gap [Moles/Vol] 10 mmol/L Normal 5-15 [facility] Comment on above: Performed By: #### 1 9123-9, CMP, 31194-0, 20907-6, 2777-1, CBCA #### [facility] ([id number]) [address], [address] [place] [address] AST [Catalytic activity/Vol] 13 U/L Normal 0-41 [facility] Comment on above: Performed By: #### 1 9123-9, CMP, 33832-6, 83137-1, 2777-1, CBCA #### [facility] ([id number]) [address], [address] [place] [address] Bilirubin [Mass/Vol] 0.3 mg/dL Normal 0.3-1.2 [facility] Comment on above: Performed By: #### 1 9123-9, CMP, 05553-4, 28776-4, 2777-1, CBCA #### [facility] ([id number]) [address], [address] [place] [address] Calcium [Mass/Vol] 9.5 mg/dL Normal 8.5-10.5 [facility] Comment on above: Performed By: #### 1 9123-9, CMP, 25434-9, 51140-0, 2777-1, CBCA #### [facility] ([id number]) [address], [address] [place] [address] Chloride [Moles/Vol] 105 mmol/L Normal 98-109 [facility] Comment on above: Performed By: #### 1 9123-9, CMP, 71752-2, 20294-5, 2777-1, CBCA #### [facility] ([id number]) [address], [address] [place] [address] CO2 [Moles/Vol] 24 mmol/L Normal 22-32 [facility] Comment on above: Performed By: #### 1 9123-9, CMP, 85453-5, 98417-5, 2777-1, CBCA #### [facility] ([id number]) [address], [address] [place] [address] Creatinine [Mass/Vol] 0.34 mg/dL Low 0.40-1.00 [facility] Comment on above: Result Comment: METH OD TRACEABLE TO IDMS STANDARD Performed By: #### 1 9123-9, CMP, 11964-9, 77780-7, 2777-1, CBCA #### [facility] ([id number]) [address], [address] [place] [address] eGFR (CKD-EPI) NON-RACE DEPENDENT >90 Normal >59 [facility] Comment on above: Result Comment: Reported eGFR is based on the CKD-EPI 1 equation that does not use a race coefficient. Performed By: #### 1 9123-9, CMP, 23113-3, 63546-8, 2777-1, CBCA #### [facility] ([id number]) [address], [address] [place] [address] Glucose [Mass/Vol] 100 mg/dL High 65-99 [facility] Comment on above: Performed By: #### 1 9123-9, CMP, 40846-2, 68181-6, 2777-1, CBCA #### [facility] ([id number]) [address], [address] [place] [address] Potassium [Moles/Vol] 3.6 mmol/L Normal 3.5-5.0 [facility] Comment on above: Performed By: #### 1 9123-9, CMP, 64207-9, 87057-9, 2777-1, CBCA #### [facility] ([id number]) [address], [address] [place] [address] Protein [Mass/Vol] 5.7 g/dL Low 6.0-8.0 [facility] Comment on above: Performed By: #### 1 9123-9, CMP, 05143-9, 64834-2, 2777-1, CBCA #### [facility] ([id number]) [address], [address] [place] [address] Sodium [Moles/Vol] 139 mmol/L Normal 134-146 [facility] Comment on above: Performed By: #### 1 9123-9, CMP, 11814-7, 82663-6, 2777-1, CBCA #### [facility] ([id number]) [address], [address] [place] [address] Urea nitrogen [Mass/Vol] 7 mg/dL Normal 5-23 [facility] Comment on above: Performed By: #### 1 9123-9, CMP, 20822-4, 67502-6, 2777-1, CBCA #### [facility] ([id number]) [address], [address] [place] [address] Glucose Glucometer ([facility]) [M ass/Vol]on 06-26-2024 Glucose [Mass/Vol] 112 mg/dL High 65-99 [facility] Glucose [Mass/Vol] 137 mg/dL High 65-99 [facility] Glucose [Mass/Vol] 113 mg/dL High 65-99 [facility] Glucose [Mass/Vol] 109 mg/dL High 65-99 [facility] Glucose [Mass/Vol] 101 mg/dL High 65-99 [facility] COMPREHENSIVE METABOLIC PANE Ab 06-25-2024 Albumin [Mass/Vol] 3.4 g/dL Normal 3.2-5.3 [facility] Comment on above: Performed By: #### 1 9123-9, CMP, 01094-2, 44053-0, 2777-1, CBCA #### [facility] ([id number]) [address], [address] [place] [address] ALP [Catalytic activity/Vol] 70 U/L Normal 39-130 [facility] Comment on above: Performed By: #### 1 9123-9, CMP, 61378-7, 48686-0, 2777-1, CBCA #### [facility] ([id number]) [address], [address] [place] [address] ALT [Catalytic activity/Vol] 9 U/L Normal 0-31 [facility] Comment on above: Performed By: #### 1 9123-9, CMP, 15703-5, 38683-7, 2777-1, CBCA #### [facility] ([id number]) [address], [address] [place] [address] Anion gap [Moles/Vol] 12 mmol/L Normal 5-15 [facility] Comment on above: Performed By: #### 1 9123-9, CMP, 27586-6, 57838-2, 2777-1, CBCA #### [facility] ([id number]) [address], [address] [place] [address] AST [Catalytic activity/Vol] 11 U/L Normal 0-41 [facility] Comment on above: Performed By: #### 1 9123-9, CMP, 24331-8, 50026-4, 2777-1, CBCA #### [facility] ([id number]) [address], [address] [place] [address] Bilirubin [Mass/Vol] 0.4 mg/dL Normal 0.3-1.2 [facility] Comment on above: Performed By: #### 1 9123-9, CMP, 27772-2, 64566-2, 2777-1, CBCA #### [facility] ([id number]) [address], [address] [place] [address] Calcium [Mass/Vol] 9.6 mg/dL Normal 8.5-10.5 [facility] Comment on above: Performed By: #### 1 9123-9, CMP, 18142-7, 55367-2, 2777-1, CBCA #### [facility] ([id number]) [address], [address] [place] [address] Chloride [Moles/Vol] 103 mmol/L Normal 98-109 [facility] Comment on above: Performed By: #### 1 9123-9, CMP, 21559-2, 15945-6, 2777-1, CBCA #### [facility] ([id number]) [address], [address] [place] [address] CO2 [Moles/Vol] 22 mmol/L Normal 22-32 [facility] Comment on above: Performed By: #### 1 9123-9, CMP, 00874-8, 11394-5, 2777-1, CBCA #### [facility] ([id number]) [address], [address] [place] [address] Creatinine [Mass/Vol] 0.28 mg/dL Low 0.40-1.00 [facility] Comment on above: Result Comment: METH OD TRACEABLE TO IDMS STANDARD Performed By: #### 1 9123-9, CMP, 96733-7, 93057-4, 2777-1, CBCA #### [facility] ([id number]) [address], [address] [place] [address] eGFR (CKD-EPI) NON-RACE DEPENDENT >90 Normal >59 [facility] Comment on above: Result Comment: Reported eGFR is based on the CKD-EPI 2020 equation that does not use a race coefficient. Performed By: #### 1 9123-9, CMP, 53761-3, 96943-5, 2777-1, CBCA #### [facility] ([id number]) [address], [facility] [address] [place] [address] Glucose [Mass/Vol] 93 mg/dL Normal 65-99 [facility] Comment on above: Performed By: #### 1 9123-9, CMP, 04060-7, 22623-4, 2777-1, CBCA #### [facility] ([id number]) [address] [address] [place] [address] Potassium [Moles/Vol] 3.5 mmol/L Normal 3.5-5.0 [facility] Comment on above: Performed By: #### 1 9123-9, CMP, 65398-0, 95666-3, 2777-1, CBCA #### [facility] ([id number]) [address] [address] [place] [address] Protein [Mass/Vol] 5.8 g/dL Low 6.0-8.0 [facility] Comment on above: Performed By: #### 1 9123-9, CMP, 54182-1, 99551-2, 2777-1, CBCA #### [facility] ([id number]) [address] [address] [place] [address] Sodium [Moles/Vol] 137 mmol/L Normal 134-146 [facility] Comment on above: Performed By: #### 1 9123-9, CMP, 21960-6, 61249-1, 2777-1, CBCA #### [facility] ([id number]) [address], [address] [place] [address] Urea nitrogen [Mass/Vol] 7 mg/dL Normal 5-23 [facility] Comment on above: Performed By: #### 1 9123-9, CMP, 88507-8, 36919-2, 2777-1, CBCA #### [facility] ([id number]) [address], [address] [place] [address] Glucose Glucometer (BldC) [M ass/Vol]on 06-25-2024 Glucose [Mass/Vol] 113 mg/dL High 65-99 [facility] Glucose [Mass/Vol] 122 mg/dL High 65-99 [facility] Glucose [Mass/Vol] 145 mg/dL High 65-99 [facility] COMPREHENSIVE METABOLIC PANE Ab 06-24-2024 Albumin [Mass/Vol] 3.5 g/dL Normal 3.2-5.3 [facility] Comment on above: Performed By: #### 1 9123-9, CMP, 96905-7, 51857-3, 2777-1, CBCA #### [facility] ([id number]) [address], [address] [place] [address] ALP [Catalytic activity/Vol] 70 U/L Normal 39-130 [facility] Comment on above: Performed By: #### 1 9123-9, CMP, 99425-3, 07049-5, 2777-1, CBCA #### [facility] ([id number]) [address], [address] [place] [address] ALT [Catalytic activity/Vol] 8 U/L Normal 0-31 [facility] Comment on above: Performed By: #### 1 9123-9, CMP, 45895-3, 36699-6, 2777-1, CBCA #### [facility] ([id number]) [address], [address] [place] [address] Anion gap [Moles/Vol] 12 mmol/L Normal 5-15 [facility] Comment on above: Performed By: #### 1 9123-9, CMP, 05123-9, 53132-8, 2777-1, CBCA #### [facility] ([id number]) [address], [address] [place] [address] AST [Catalytic activity/Vol] 12 U/L Normal 0-41 [facility] Comment on above: Performed By: #### 1 9123-9, CMP, 18821-0, 18254-4, 2777-1, CBCA #### [facility] ([id number]) [address], [address] [place] [address] Bilirubin [Mass/Vol] 0.4 mg/dL Normal 0.3-1.2 [facility] Comment on above: Performed By: #### 1 9123-9, CMP, 29016-4, 02364-5, 2777-1, CBCA #### [facility] ([id number]) [address], [address] [place] [address] Calcium [Mass/Vol] 9.2 mg/dL Normal 8.5-10.5 [facility] Comment on above: Performed By: #### 1 9123-9, CMP, 07834-6, 09811-1, 2777-1, CBCA #### [facility] ([id number]) [address], [address] [place] [address] Chloride [Moles/Vol] 103 mmol/L Normal 98-109 [facility] Comment on above: Performed By: #### 1 9123-9, CMP, 61616-5, 12969-3, 2777-1, CBCA #### [facility] ([id number]) [address], [address] [place] [address] CO2 [Moles/Vol] 22 mmol/L Normal 22-32 [facility] Comment on above: Performed By: #### 1 9123-9, CMP, 03458-6, 04877-4, 2777-1, CBCA #### [facility] ([id number]) [address], [address] [place] [address] Creatinine [Mass/Vol] 0.31 mg/dL Low 0.40-1.00 [facility] Comment on above: Result Comment: METH OD TRACEABLE TO IDMS STANDARD Performed By: #### 1 9123-9, CMP, 68775-6, 34450-0, 2777-1, CBCA #### [facility] ([id number]) [address], [address] [place] [address] eGFR (CKD-EPI) NON-RACE DEPENDENT >90 Normal >59 [facility] Comment on above: Result Comment: Reported eGFR is based on the CKD-EPI 2020 equation that does not use a race coefficient. Performed By: #### 1 9123-9, CMP, 22815-6, 98626-5, 2777-1, CBCA #### [facility] ([id number]) [address], [address] [place] [address] Glucose [Mass/Vol] 92 mg/dL Normal 65-99 [facility] Comment on above: Performed By: #### 1 9123-9, CMP, 12179-2, 03230-2, 2777-1, CBCA #### [facility] ([id number]) [address] [address] [place] [address] Potassium [Moles/Vol] 3.8 mmol/L Normal 3.5-5.0 [facility] Comment on above: Performed By: #### 1 9123-9, CMP, 54821-2, 65175-8, 2777-1, CBCA #### [facility] ([id number]) [address], [address] [place] [address] Protein [Mass/Vol] 5.9 g/dL Low 6.0-8.0 [facility] Comment on above: Performed By: #### 1 9123-9, CMP, 71134-8, 85419-7, 2777-1, CBCA #### [facility] ([id number]) [address], [address] [place] [address] Sodium [Moles/Vol] 137 mmol/L Normal 134-146 [facility] Comment on above: Performed By: #### 1 9123-9, CMP, 53558-9, 77178-5, 2777-1, CBCA #### [facility] ([id number]) [address], [address] [place] [address] Urea nitrogen [Mass/Vol] 7 mg/dL Normal 5-23 [facility] Comment on above: Performed By: #### 1 9123-9, CMP, 24792-3, 75509-1, 2777-1, CBCA #### [facility] ([id number]) [address], [address] [place] [address] DIGOXINon 06-24-2024 Digoxin [Mass/Vol] 1.3 ng/mL Normal 0.8-2.0 [facility] Comment on above: Performed By: #### 1 9123-9, CMP, 26438-3, 41746-2, 2777-1, CBCA #### [facility] ([id number]) [address], [address] [place] [address] Glucose Glucometer (BldC) [M ass/Vol]on 06-24-2024 Glucose [Mass/Vol] 106 mg/dL High 65-99 [facility] Glucose [Mass/Vol] 113 mg/dL High 65-99 [facility] Glucose [Mass/Vol] 116 mg/dL High 65-99 [facility] Glucose [Mass/Vol] 93 mg/dL Normal 65-99 [facility] MAGNESIUMon 06-24-2024 Magnesium [Mass/Vol] 1.6 mg/dL Low 1.8-2.6 [facility] Comment on above: Performed By: #### 1 9123-9, CMP, 57993-0, 87678-2, 2777-1, CBCA #### [facility] ([id number]) [address], [address] [place] [address] POTASSIUMon 06-24-2024 Potassium [Moles/Vol] 3.7 mmol/L Normal 3.5-5.0 [facility] Comment on above: Performed By: #### 1 9123-9, CMP, 58208-5, 68636-3, 2777-1, CBCA #### [facility] ([id number]) [address], [address] [place] [address] COMPREHENSIVE METABOLIC PANE Ab 06-23-2024 Albumin [Mass/Vol] 3.6 g/dL Normal 3.2-5.3 [facility] Comment on above: Performed By: #### 1 9123-9, CMP, 56823-6, 12827-1, 2777-1, CBCA #### [facility] ([id number]) [address], [address] [place] [address] ALP [Catalytic activity/Vol] 74 U/L Normal 39-130 [facility] Comment on above: Performed By: #### 1 9123-9, CMP, 10684-6, 91779-2, 2777-1, CBCA #### [facility] ([id number]) [address], [address] [place] [address] ALT [Catalytic activity/Vol] 8 U/L Normal 0-31 [facility] Comment on above: Performed By: #### 1 9123-9, CMP, 19874-2, 27659-1, 2777-1, CBCA #### [facility] ([id number]) [address], [address] [place] [address] Anion gap [Moles/Vol] 13 mmol/L Normal 5-15 [facility] Comment on above: Performed By: #### 1 9123-9, CMP, 95517-3, 18325-3, 2777-1, CBCA #### [facility] ([id number]) [address], [address] [place] [address] AST [Catalytic activity/Vol] 10 U/L Normal 0-41 [facility] Comment on above: Performed By: #### 1 9123-9, CMP, 27069-6, 24353-6, 2777-1, CBCA #### [facility] ([id number]) [address], [address] [place] [address] Bilirubin [Mass/Vol] 0.3 mg/dL Normal 0.3-1.2 [facility] Comment on above: Performed By: #### 1 9123-9, CMP, 19418-7, 65740-3, 2777-1, CBCA #### [facility] ([id number]) [address], [address] [place] [address] Calcium [Mass/Vol] 9.6 mg/dL Normal 8.5-10.5 [facility] Comment on above: Performed By: #### 1 9123-9, CMP, 41679-8, 16629-1, 2777-1, CBCA #### [facility] ([id number]) [address], [address] [place] [address] Chloride [Moles/Vol] 103 mmol/L Normal 98-109 [facility] Comment on above: Performed By: #### 1 9123-9, CMP, 76677-9, 70193-8, 2777-1, CBCA #### [facility] ([id number]) [address], [address] [place] [address] CO2 [Moles/Vol] 23 mmol/L Normal 22-32 [facility] Comment on above: Performed By: #### 1 9123-9, CMP, 35217-1, 31192-6, 2777-1, CBCA #### [facility] ([id number]) [address], [address] [place] [address] Creatinine [Mass/Vol] 0.28 mg/dL Low 0.40-1.00 [facility] Comment on above: Result Comment: METH OD TRACEABLE TO IDMS STANDARD Performed By: #### 1 9123-9, CMP, 62157-5, 60684-5, 2777-1, CBCA #### [facility] ([id number]) [address], [address] [place] [address] eGFR (CKD-EPI) NON-RACE DEPENDENT >90 Normal >59 [facility] Comment on above: Result Comment: Reported eGFR is based on the CKD-EPI 2020 equation that does not use a race coefficient. Performed By: #### 1 9123-9, CMP, 10226-0, 16138-5, 2777-1, CBCA #### [facility] ([id number]) [address], [address] [place] [address] Glucose [Mass/Vol] 98 mg/dL Normal 65-99 [facility] Comment on above: Performed By: #### 1 9123-9, CMP, 55663-2, 19512-9, 2777-1, CBCA #### [facility] ([id number]) [address], [address] [place] [address] Potassium [Moles/Vol] 3.6 mmol/L Normal 3.5-5.0 [facility] Comment on above: Performed By: #### 1 9123-9, CMP, 85260-4, 60015-8, 2777-1, CBCA #### [facility] ([id number]) [address], [address] [place] [address] Protein [Mass/Vol] 6.1 g/dL Normal 6.0-8.0 [facility] Comment on above: Performed By: #### 1 9123-9, CMP, 25803-5, 12913-4, 2777-1, CBCA #### [facility] ([id number]) [address], [address] [place] [address] Sodium [Moles/Vol] 139 mmol/L Normal 134-146 [facility] Comment on above: Performed By: #### 1 9123-9, CMP, 06756-2, 04098-6, 2777-1, CBCA #### [facility] ([id number]) [address], [address] [place] [address] Urea nitrogen [Mass/Vol] 5 mg/dL Normal 5-23 [facility] Comment on above: Performed By: #### 1 9123-9, CMP, 12113-5, 46002-8, 2777-1, CBCA #### [facility] ([id number]) [address] [place] [address] DIGOXINon 06-23-2024 Digoxin [Mass/Vol] 1.5 ng/mL Normal 0.8-2.0 [facility] Comment on above: Performed By: #### 1 9123-9, CMP, 41005-8, 29050-2, 2777-1, CBCA #### [facility] ([id number]) [address] [place] [address] Glucose Glucometer (dC) [M ass/Vol]on 06-23-2024 Glucose [Mass/Vol] 129 mg/dL High 65-99 [facility] Glucose [Mass/Vol] 127 mg/dL High 65-99 [facility] Glucose [Mass/Vol] 120 mg/dL High 65-99 [facility] Glucose [Mass/Vol] 98 mg/dL Normal 65-99 [facility] MAGNESIUMon 06-23-2024 Magnesium [Mass/Vol] 1.7 mg/dL Low 1.8-2.6 [facility] Comment on above: Performed By: #### 1 9123-9, CMP, 88428-7, 14350-2, 2777-1, CBCA #### [facility] ([id number]) [address], [address] [place] [address] Magnesium [Mass/Vol] 1.8 mg/dL Normal 1.8-2.6 [facility] Comment on above: Performed By: #### 1 9123-9, CMP, 36591-6, 35827-4, 2777-1, CBCA #### [facility] ([id number]) [address], [address] [place] [address] Magnesium [Mass/Vol] 1.7 mg/dL Low 1.8-2.6 [facility] Comment on above: Performed By: #### 1 9123-9, CMP, 63860-5, 72827-6, 2777-1, CBCA #### [facility] ([id number]) [address], [address] [place] [address] POTASSIUMon 06-23-2024 Potassium [Moles/Vol] 3.8 mmol/L Normal 3.5-5.0 [facility] Comment on above: Performed By: #### 1 9123-9, CMP, 49194-3, 12043-2, 2777-1, CBCA #### [facility] ([id number]) [address], [address] [place] [address] Potassium [Moles/Vol] 3.7 mmol/L Normal 3.5-5.0 [facility] Comment on above: Performed By: #### 1 9123-9, CMP, 81814-4, 27835-0, 2777-1, CBCA #### [facility] ([id number]) [address], [address] [place] [address] COMPREHENSIVE METABOLIC PANE Ab 06-22-2024 Albumin [Mass/Vol] 3.5 g/dL Normal 3.2-5.3 [facility] Comment on above: Performed By: #### 1 9123-9, CMP, 32802-3, 65442-8, 2777-1, CBCA #### [facility] ([id number]) [address], [address] [facility] [place] [address] ALP [Catalytic activity/Vol] 64 U/L Normal 39-130 [facility] Comment on above: Performed By: #### 1 9123-9, CMP, 57790-6, 68875-5, 2777-1, CBCA #### [facility] ([id number]) [address], [address] [place] [address] ALT [Catalytic activity/Vol] 8 U/L Normal 0-31 [facility] Comment on above: Performed By: #### 1 9123-9, CMP, 23013-2, 66321-5, 2777-1, CBCA #### [facility] ([id number]) [address], [address] [place] [address] Anion gap [Moles/Vol] 11 mmol/L Normal 5-15 [facility] Comment on above: Performed By: #### 1 9123-9, CMP, 61993-0, 46499-7, 2777-1, CBCA #### [facility] ([id number]) [address], [address] [place] [address] AST [Catalytic activity/Vol] 12 U/L Normal 0-41 [facility] Comment on above: Performed By: #### 1 9123-9, CMP, 90159-4, 95653-5, 2777-1, CBCA #### [facility] ([id number]) [address], [address] [place] [address] Bilirubin [Mass/Vol] 0.4 mg/dL Normal 0.3-1.2 [facility] Comment on above: Performed By: #### 1 9123-9, CMP, 35634-5, 80936-3, 2777-1, CBCA #### [facility] ([id number]) [address], [address] [place] [address] Calcium [Mass/Vol] 8.8 mg/dL Normal 8.5-10.5 [facility] [facility] Comment on above: Performed By: #### 1 9123-9, CMP, 04779-3, 07025-7, 2777-1, CBCA #### [facility] ([id number]) [address], [address] [place] [address] Chloride [Moles/Vol] 102 mmol/L Normal 98-109 [facility] Comment on above: Performed By: #### 1 9123-9, CMP, 97447-2, 76857-5, 2777-1, CBCA #### [facility] ([id number]) [address], [address] [place] [address] CO2 [Moles/Vol] 22 mmol/L Normal 22-32 [facility] Comment on above: Performed By: #### 1 9123-9, CMP, 14628-6, 43830-3, 2777-1, CBCA #### [facility] ([id number]) [address], [address] [place] [address] Creatinine [Mass/Vol] 0.30 mg/dL Low 0.40-1.00 [facility] Comment on above: Result Comment: METH OD TRACEABLE TO IDMS STANDARD Performed By: #### 1 9123-9, CMP, 50615-7, 79705-8, 2777-1, CBCA #### [facility] ([id number]) [address], [address] [place] [address] eGFR (CKD-EPI) NON-RACE DEPENDENT >90 Normal >59 [facility] Comment on above: Result Comment: Reported eGFR is based on the CKD-EPI 2020 equation that does not use a race coefficient. Performed By: #### 1 9123-9, CMP, 90475-0, 07401-5, 2777-1, CBCA #### [facility] ([id number]) [address], [address] [place] [address] Glucose [Mass/Vol] 130 mg/dL High 65-99 [facility] Comment on above: Performed By: #### 1 9123-9, CMP, 25149-8, 85137-7, 2777-1, CBCA #### [facility] ([id number]) [address], [address] [place] [address] Potassium [Moles/Vol] 3.9 mmol/L Normal 3.5-5.0 [facility] Comment on above: Performed By: #### 1 9123-9, CMP, 39020-9, 54043-8, 2777-1, CBCA #### [facility] ([id number]) [address], [address] [place] [address] Protein [Mass/Vol] 6.0 g/dL Normal 6.0-8.0 [facility] Comment on above: Performed By: #### 1 9123-9, CMP, 88395-4, 70012-3, 2777-1, CBCA #### [facility] ([id number]) [address], [address] [place] [address] Sodium [Moles/Vol] 135 mmol/L Normal 134-146 [facility] Comment on above: Performed By: #### 1 9123-9, CMP, 49663-1, 73901-3, 2777-1, CBCA #### [facility] ([id number]) [address], [address] [place] [address] Urea nitrogen [Mass/Vol] 7 mg/dL Normal 5-23 [facility] Comment on above: Performed By: #### 1 9123-9, CMP, 92549-1, 52679-1, 2777-1, CBCA #### [facility] ([id number]) [address], [address] [place] [address] DIGOXINon 06-22-2024 Digoxin [Mass/Vol] 1.6 ng/mL Normal 0.8-2.0 [facility] Comment on above: Performed By: #### 1 9123-9, CMP, 34995-2, 15606-7, 2777-1, CBCA #### [facility] ([id number]) [address], [address] [place] [address] Glucose Glucometer (BldC) [M ass/Vol]on 06-22-2024 Glucose [Mass/Vol] 133 mg/dL High 65-99 [facility] Glucose [Mass/Vol] 133 mg/dL High 65-99 [facility] Glucose [Mass/Vol] 127 mg/dL High 65-99 [facility] Glucose [Mass/Vol] 103 mg/dL High 65-99 [facility] comment Víctor (Repo rt)on 06-22-2024 UNLISTED LAB TEST Sent to reference lab Normal [facility] MAGNESIUMon 06-22-2024 Magnesium [Mass/Vol] 1.6 mg/dL Low 1.8-2.6 [facility] Comment on above: Performed By: #### 1 9123-9, [facility], 71761-1, 95248-0, 2777-1, CBCA #### [facility] ([id number]) [address], [address] [place] [address] Magnesium [Mass/Vol] 1.9 mg/dL Normal 1.8-2.6 [facility] Comment on above: Performed By: #### 1 9123-9, CMP, 27904-7, 90713-5, 2777-1, CBCA #### [facility] ([id number]) [address], [address] [place] [address] Magnesium [Mass/Vol] 1.7 mg/dL Low 1.8-2.6 [facility] Comment on above: Performed By: #### 1 9123-9, CMP, 48352-1, 76400-7, 2777-1, CBCA #### [facility] ([id number]) [address], [address] [place] [address] [facility] ORDERon 04-21-2 025 TEST NAME ALBERTO MCFADDEN ON NO GEL SERUM Normal [facility] TEST RESULT SEE COMMENTS 06/23/2024 12:49 PM Normal [facility] Comment on above: Result Comment: NOTE Test Result Flag Unit RefValue -- Flecainide, S 0.5 mcg/mL REFERENCE VALUE 0.2 - 1.0 (Therapeutic concentration, trough value), >1.0 (Toxic concentration, trough value) ADDITIONAL INFORMATION This test was developed and its performance characteristics determined by [facility] in a manner consistent with CLIA requirements. This test has not been cleared or approved by the U.S. Food and Drug Administration. Test Performed by: [facility] [place] [address] Resource Center Teacher: Mino Cain Ph.D.; CLIA# [id number] Magnesium Ionized ISE (Bld) [Moles/Vol]on 06-22-2024 Magnesium [Moles/Vol] 0.45 mmol/L Normal 0.45-0.74 [facility] Comment on above: Result Comment: NEW REFERENCE RANGE Performed By: #### 1 9123-9, CMP, 63419-8, 73039-6, 2777-1, CBCA #### [facility] ([id number]) [address] [place] [address], [address] [place] [address] POTASSIUMon 06-22-2024 Potassium [Moles/Vol] 4.1 mmol/L Normal 3.5-5.0 [facility] Comment on above: Performed By: #### 1 9123-9, CMP, 56010-1, 11859-7, 2777-1, CBCA #### [facility] ([id number]) [address], [address] [place] [address] COMPREHENSIVE METABOLIC PANE Ab 06-21-2024 Albumin [Mass/Vol] 3.7 g/dL Normal 3.2-5.3 [facility] Comment on above: Performed By: #### 1 9123-9, BMP #### [facility] ([id number]) [address], [address] [place] [address] ALP [Catalytic activity/Vol] 67 U/L Normal 39-130 [facility] Comment on above: Performed By: #### 1 9123-9, BMP #### [facility] ([id number]) [address], [address] [place] [address] ALT [Catalytic activity/Vol] 8 U/L Normal 0-31 [facility] Comment on above: Performed By: #### 1 9123-9, BMP #### [facility] ([id number]) [address], [address] [place] [address] Anion gap [Moles/Vol] 11 mmol/L Normal 5-15 [facility] Comment on above: Performed By: #### 1 9123-9, BMP #### [facility] ([id number]) [address], [address] [place] [address] AST [Catalytic activity/Vol] 13 U/L Normal 0-41 [facility] Comment on above: Performed By: #### 1 9123-9, BMP #### [facility] ([id number]) [address], [address] [place] [address] Bilirubin [Mass/Vol] 0.4 mg/dL Normal 0.3-1.2 [facility] Comment on above: Performed By: #### 1 9123-9, BMP #### [facility] ([id number]) [address], [address] [place] [address] Calcium [Mass/Vol] 10.6 mg/dL High 8.5-10.5 [facility] Comment on above: Performed By: #### 1 9123-9, BMP #### [facility] ([id number]) [address], [address] [place] [address] Chloride [Moles/Vol] 101 mmol/L Normal 98-109 [facility] Comment on above: Performed By: #### 1 9123-9, BMP #### [facility] ([id number]) [address], [address] [place] [address] CO2 [Moles/Vol] 23 mmol/L Normal 22-32 [facility] Comment on above: Performed By: #### 1 9123-9, BMP #### [facility] ([id number]) [address], [address] [place] [address] Creatinine [Mass/Vol] 0.35 mg/dL Low 0.40-1.00 [facility] Comment on above: Result Comment: METH OD TRACEABLE TO IDMS STANDARD Performed By: #### 1 9123-9, BMP #### [facility] ([id number]) [address], [address] [place] [address] eGFR (CKD-EPI) NON-RACE DEPENDENT >90 Normal >59 [facility] Comment on above: Result Comment: Reported eGFR is based on the CKD-EPI 2021 equation that does not use a race coefficient. Performed By: #### 1 9123-9, BMP #### [facility] ([id number]) [address], [address] [place] [address] Glucose [Mass/Vol] 126 mg/dL High 65-99 [facility] Comment on above: Performed By: #### 1 9123-9, BMP #### [facility] ([id number]) [address] [address] [place] [address] Potassium [Moles/Vol] 3.6 mmol/L Normal 3.5-5.0 [facility] Comment on above: Performed By: #### 1 9123-9, BMP #### [facility] ([id number]) [address], [address] [place] [address] Protein [Mass/Vol] 6.2 g/dL Normal 6.0-8.0 [facility] Comment on above: Performed By: #### 1 9123-9, BMP #### [facility] ([id number]) [address], [address] [place] [address] Sodium [Moles/Vol] 135 mmol/L Normal 134-146 [facility] Comment on above: Performed By: #### 1 9123-9, BMP #### [facility] ([id number]) [address], [address] [place] [address] Urea nitrogen [Mass/Vol] 7 mg/dL Normal 5-23 [facility] Comment on above: Performed By: #### 1 9123-9, BMP #### [facility] ([id number]) [address], [address] [place] [address] DIGOXINon 06-21-2024 Digoxin [Mass/Vol] 1.9 ng/mL Normal 0.8-2.0 [facility] Comment on above: Performed By: #### 1 9123-9, CMP, 63371-8, 45691-7, 2777-1, CBCA #### [facility] ([id number]) [address], [address] [place] [address] Glucose Glucometer (BldC) [M ass/Vol]on 06-21-2024 Glucose [Mass/Vol] 131 mg/dL High 65-99 [facility] Glucose [Mass/Vol] 131 mg/dL High 65-99 [facility] Glucose [Mass/Vol] 98 mg/dL Normal 65-99 [facility] MAGNESIUMon 06-21-2024 Magnesium [Mass/Vol] 1.8 mg/dL Normal 1.8-2.6 [facility] Comment on above: Performed By: #### 1 9123-9, CMP, 56604-7, 80903-0, 2777-1, CBCA #### [facility] ([id number]) [address], [address] [place] [address] Magnesium [Mass/Vol] 1.5 mg/dL Low 1.8-2.6 [facility] Comment on above: Performed By: #### 1 9123-9, BMP #### [facility] ([id number]) [address] [place] [address] POTASSIUMon 06-21-2024 Potassium [Moles/Vol] 3.9 mmol/L Normal 3.5-5.0 [facility] Comment on above: Performed By: #### 1 9123-9, CMP, 31687-3, 09989-9, 2777-1, CBCA #### [facility] ([id number]) [address] [place] [address] COMPREHENSIVE METABOLIC PANE Ab 06-20-2024 Albumin [Mass/Vol] 3.7 g/dL Normal 3.2-5.3 [facility] Comment on above: Performed By: #### 1 558-6 #### [facility] ([id number]) [address], [address] [place] [address] ALP [Catalytic activity/Vol] 65 U/L Normal 39-130 [facility] Comment on above: Performed By: #### 1 558-6 #### [facility] ([id number]) [address] [place] [address] ALT [Catalytic activity/Vol] 10 U/L Normal 0-31 [facility] Comment on above: Performed By: #### 1 558-6 #### [facility] ([id number]) [address], [address] [place] [address] Anion gap [Moles/Vol] 9 mmol/L Normal 5-15 [facility] Comment on above: Performed By: #### 1 558-6 #### [facility] ([id number]) [address], [address] [place] [address] AST [Catalytic activity/Vol] 13 U/L Normal 0-41 [facility] Comment on above: Performed By: #### 1 558-6 #### [facility] ([id number]) [address], [address] [place] [address] Bilirubin [Mass/Vol] 0.3 mg/dL Normal 0.3-1.2 [facility] Comment on above: Performed By: #### 1 558-6 #### [facility] ([id number]) [address], [address] [place] [address] Calcium [Mass/Vol] 9.4 mg/dL Normal 8.5-10.5 [facility] Comment on above: Performed By: #### 1 558-6 #### [facility] ([id number]) [address], [address] [place] [address] Chloride [Moles/Vol] 104 mmol/L Normal 98-109 [facility] Comment on above: Performed By: #### 1 558-6 #### [facility] ([id number]) [address], [address] [place] [address] CO2 [Moles/Vol] 25 mmol/L Normal 22-32 [facility] Comment on above: Performed By: #### 1 558-6 #### [facility] ([id number]) [address], [address] [place] [address] Creatinine [Mass/Vol] 0.36 mg/dL Low 0.40-1.00 [facility] Comment on above: Result Comment: METH OD TRACEABLE TO IDMS STANDARD Performed By: #### 1 558-6 #### [facility] ([id number]) [address], [address] [place] [address] eGFR (CKD-EPI) NON-RACE DEPENDENT >90 Normal >59 [facility] Comment on above: Result Comment: Reported eGFR is based on the CKD-EPI 2020 equation that does not use a race coefficient. Performed By: #### 1 558-6 #### [facility] ([id number]) [address], [address] [place] [address] Glucose [Mass/Vol] 93 mg/dL Normal 65-99 [facility] Comment on above: Performed By: #### 1 558-6 #### [facility] ([id number]) [address], [address] [place] [address] Potassium [Moles/Vol] 3.9 mmol/L Normal 3.5-5.0 [facility] Comment on above: Performed By: #### 1 558-6 #### [facility] ([id number]) [address], [address] [place] [address] Protein [Mass/Vol] 6.1 g/dL Normal 6.0-8.0 [facility] Comment on above: Performed By: #### 1 558-6 #### [facility] ([id number]) [address], [address] [place] [address] Sodium [Moles/Vol] 138 mmol/L Normal 134-146 [facility] Comment on above: Performed By: #### 1 558-6 #### [facility] ([id number]) [address], [address] [place] [address] Urea nitrogen [Mass/Vol] 6 mg/dL Normal 5-23 [facility] Comment on above: Performed By: #### 1 558-6 #### [facility] ([id number]) [address], [address] [place] [address] DIGOXINon 06-20-2024 Digoxin [Mass/Vol] 1.9 ng/mL Normal 0.8-2.0 [facility] Comment on above: Performed By: #### 1 9123-9, BMP #### [facility] ([id number]) [address], [address] [place] [address] Glucose Glucometer (BldC) [M ass/Vol]on 06-20-2024 Glucose [Mass/Vol] 130 mg/dL High 65-99 [facility] Glucose [Mass/Vol] 95 mg/dL Normal 65-99 [facility] Glucose [Mass/Vol] 123 mg/dL High 65-99 [facility] MAGNESIUMon 06-20-2024 Magnesium [Mass/Vol] 1.9 mg/dL Normal 1.8-2.6 [facility] Comment on above: Performed By: #### 1 9123-9, BMP #### [facility] ([id number]) [address], [address] [place] [address] Magnesium [Mass/Vol] 1.8 mg/dL Normal 1.8-2.6 [facility] Comment on above: Performed By: #### 1 558-6 #### [facility] ([id number]) [address], [address] [place] [address] Magnesium [Mass/Vol] 1.8 mg/dL Normal 1.8-2.6 [facility] Comment on above: Performed By: #### 1 558-6 #### [facility] ([id number]) [address], [address] [place] [address] POTASSIUMon 06-20-2024 Potassium [Moles/Vol] 3.7 mmol/L Normal 3.5-5.0 [facility] Comment on above: Performed By: #### 1 9123-9, BMP #### [facility] ([id number]) [address], [address] [place] [address] Potassium [Moles/Vol] 3.9 mmol/L Normal 3.5-5.0 [facility] Comment on above: Performed By: #### 1 558-6 #### [facility] ([id number]) [address], [address] [place] [address] COMPREHENSIVE METABOLIC PANE Ab 06-19-2024 Albumin [Mass/Vol] 3.5 g/dL Normal 3.2-5.3 [facility] Comment on above: Performed By: #### 1 9123-9, CMP ####[facility] ([id number])[address], [address], [place] [address] ALP [Catalytic activity/Vol] 58 U/L Normal 39-130 [facility] Comment on above: Performed By: #### 1 9123-9, CMP ####[facility] ([id number])[address], [address], [place] [address] ALT [Catalytic activity/Vol] 9 U/L Normal 0-31 [facility] Comment on above: Performed By: #### 1 9123-9, CMP ####[facility] ([id number])[address], [address], [place] [address] Anion gap [Moles/Vol] 10 mmol/L Normal 5-15 [facility] Comment on above: Performed By: #### 1 9123-9, CMP ####[facility] ([id number])[address], [address], [place] [address] AST [Catalytic activity/Vol] 11 U/L Normal 0-41 [facility] Comment on above: Performed By: #### 1 9123-9, CMP ####[facility] ([id number])[address], [address], [place] [address] Bilirubin [Mass/Vol] 0.2 mg/dL Low 0.3-1.2 [facility] Comment on above: Performed By: #### 1 9123-9, CMP ####[facility] ([id number])[address], [address], [place] [address] Calcium [Mass/Vol] 8.7 mg/dL Normal 8.5-10.5 [facility] Comment on above: Performed By: #### 1 9123-9, CMP ####[facility] ([id number])[address] [address] [place] [address] Chloride [Moles/Vol] 103 mmol/L Normal 98-109 [facility] Comment on above: Performed By: #### 1 9123-9, CMP ####[facility] ([id number])[address], [address], [place] [address] CO2 [Moles/Vol] 24 mmol/L Normal 22-32 [facility] Comment on above: Performed By: #### 1 9123-9, CMP ####[facility] ([id number])[address] [address], [place] [address] Creatinine [Mass/Vol] 0.37 mg/dL Low 0.40-1.00 [facility] Comment on above: Result Comment: METH OD TRACEABLE TO IDMS STANDARD Performed By: #### 1 9123-9, CMP ####[facility] ([id number])[address] [address], [place] [address] eGFR (CKD-EPI) NON-RACE DEPENDENT >90 Normal >59 [facility] Comment on above: Result Comment: Reported eGFR is based on the CKD-EPI 2020 equation that does not use a race coefficient. Performed By: #### 1 9123-9, CMP ####[facility] ([id number])[address] [address] [place] [address] Glucose [Mass/Vol] 100 mg/dL High 65-99 [facility] Comment on above: Performed By: #### 1 9123-9, CMP ####[facility] ([id number])[address], [address], [place] [address] Potassium [Moles/Vol] 3.7 mmol/L Normal 3.5-5.0 [facility] Comment on above: Performed By: #### 1 9123-9, CMP ####[facility] ([id number])[address], [address], [place] [address] Protein [Mass/Vol] 5.9 g/dL Low 6.0-8.0 [facility] Comment on above: Performed By: #### 1 9123-9, CMP ####[facility] ([id number])[address] [place] [address] Sodium [Moles/Vol] 137 mmol/L Normal 134-146 [facility] Comment on above: Performed By: #### 1 9123-9, CMP ####[facility] ([id number])[address], [address] [place] [address] Urea nitrogen [Mass/Vol] 7 mg/dL Normal 5-23 [facility] Comment on above: Performed By: #### 1 9123-9, CMP ####[facility] ([id number])[address], [address] [place] [address] DIGOXINon 06-19-2024 Digoxin [Mass/Vol] 1.6 ng/mL Normal 0.8-2.0 [facility] Comment on above: Performed By: #### 1 0535-3 ####[facility] ([id number])[address], [address] [place] [address] Glucose Glucometer (BldC) [M ass/Vol]on 06-19-2024 Glucose [Mass/Vol] 117 mg/dL High 65-99 [facility] Glucose [Mass/Vol] 108 mg/dL High 65-99 [facility] Glucose [Mass/Vol] 91 mg/dL Normal 65-99 [facility] Glucose [Mass/Vol] 86 mg/dL Normal 65-99 [facility] MAGNESIUMon 06-19-2024 Magnesium [Mass/Vol] 1.7 mg/dL Low 1.8-2.6 [facility] Comment on above: Performed By: #### 1 558-6 #### [facility] ([id number]) [address], [address] [place] [address] Magnesium [Mass/Vol] 1.9 mg/dL Normal 1.8-2.6 [facility] Comment on above: Performed By: #### 1 9123-9 ####[facility] ([id number])[address], [place] [address] Magnesium [Mass/Vol] 1.8 mg/dL Normal 1.8-2.6 [facility] Comment on above: Performed By: #### 1 9123-9, CMP ####[facility] ([id number])[address], [place] [address] POTASSIUMon 06-19-2024 Potassium [Moles/Vol] 3.5 mmol/L Normal 3.5-5.0 [facility] Comment on above: Performed By: #### 1 558-6 #### [facility] ([id number]) [address] [place] [address] Potassium [Moles/Vol] 3.7 mmol/L Normal 3.5-5.0 [facility] Comment on above: Performed By: #### 2 823-3 ####[facility] ([id number])[address], [address], [place] [address] COMPREHENSIVE METABOLIC PANE Ab 06-18-2024 Albumin [Mass/Vol] 3.6 g/dL Normal 3.2-5.3 [facility] Comment on above: Performed By: #### D GODOY #### [facility] ([id number]) [address] [place] [address] ALP [Catalytic activity/Vol] 63 U/L Normal 39-130 [facility] Comment on above: Performed By: #### D GODOY #### [facility] ([id number]) [address], [address] [place] [address] ALT [Catalytic activity/Vol] 10 U/L Normal 0-31 [facility] Comment on above: Performed By: #### D GODOY #### [facility] ([id number]) [address], [address] [place] [address] Anion gap [Moles/Vol] 11 mmol/L Normal 5-15 [facility] Comment on above: Performed By: #### D GODOY #### [facility] ([id number]) [address], [address] [place] [address] AST [Catalytic activity/Vol] 12 U/L Normal 0-41 [facility] Comment on above: Performed By: #### D GODOY #### [facility] ([id number]) [address], [address] [place] [address] Bilirubin [Mass/Vol] 0.3 mg/dL Normal 0.3-1.2 [facility] Comment on above: Performed By: #### D GODOY #### [facility] ([id number]) [address], [address] [place] [address] Calcium [Mass/Vol] 8.8 mg/dL Normal 8.5-10.5 [facility] Comment on above: Performed By: #### D GODOY #### [facility] ([id number]) [address], [address] [place] [address] Chloride [Moles/Vol] 104 mmol/L Normal 98-109 [facility] Comment on above: Performed By: #### D GODOY #### [facility] ([id number]) [address], [address] [place] [address] CO2 [Moles/Vol] 22 mmol/L Normal 22-32 [facility] Comment on above: Performed By: #### D GODOY #### [facility] ([id number]) [address], [address] [place] [address] Creatinine [Mass/Vol] 0.34 mg/dL Low 0.40-1.00 [facility] Comment on above: Result Comment: METH OD TRACEABLE TO IDMS STANDARD Performed By: #### D GODOY #### [facility] ([id number]) [address], [address] [place] [address] eGFR (CKD-EPI) NON-RACE DEPENDENT >90 Normal >59 [facility] Comment on above: Result Comment: Reported eGFR is based on the CKD-EPI 2020 equation that does not use a race coefficient. Performed By: #### D GODOY #### [facility] ([id number]) [address], [address] [place] [address] Glucose [Mass/Vol] 105 mg/dL High 65-99 [facility] Comment on above: Performed By: #### D GODOY #### [facility] ([id number]) [address], [address] [place] [address] Potassium [Moles/Vol] 3.6 mmol/L Normal 3.5-5.0 [facility] Comment on above: Performed By: #### D GODOY #### [facility] ([id number]) [address], [address] [place] [address] Protein [Mass/Vol] 5.9 g/dL Low 6.0-8.0 [facility] Comment on above: Performed By: #### D GODOY #### [facility] ([id number]) [address], [address] [place] [address] Sodium [Moles/Vol] 137 mmol/L Normal 134-146 [facility] Comment on above: Performed By: #### D GODOY #### [facility] ([id number]) [address], [address] [place] [address] Urea nitrogen [Mass/Vol] 7 mg/dL Normal 5-23 [facility] Comment on above: Performed By: #### D GODOY #### [facility] ([id number]) [address], [address] [place] [address] DIGOXINon 06-18-2024 Digoxin [Mass/Vol] 1.2 ng/mL Normal 0.8-2.0 [facility] Comment on above: Performed By: #### D GODOY #### [facility] ([id number]) [address], [address] [place] [address] Glucose Glucometer (BldC) [M ass/Vol]on 06-18-2024 Glucose [Mass/Vol] 121 mg/dL High 65-99 [facility] Glucose [Mass/Vol] 141 mg/dL High 65-99 [facility] Glucose [Mass/Vol] 126 mg/dL High 65-99 [facility] Glucose [Mass/Vol] 112 mg/dL High 65-99 [facility] comment Víctor (Repo rt)on 06-18-2024 UNLISTED LAB TEST Sent to reference lab Normal [facility] MAGNESIUMon 06-18-2024 Magnesium [Mass/Vol] 1.9 mg/dL Normal 1.8-2.6 [facility] Comment on above: Performed By: #### 1 9123-9, 36228-0, 2823-3 ####[facility] ([id number])[address], [place] [address] Magnesium [Mass/Vol] 1.8 mg/dL Normal 1.8-2.6 [facility] Comment on above: Performed By: #### D GODOY #### [facility] ([id number]) [address] [place] [address] [facility] GENERIC ORDERon 025 TEST NAME ALBERTO FLECAINIDE RED SERUM Normal [facility] TEST RESULT SEE COMMENTS 06/22/2024 06:36 PM Normal [facility] Comment on above: Result Comment: NOTE Test Result Flag Unit RefValue -- Flecainide, S 0.6 mcg/mL REFERENCE VALUE 0.2 - 1.0 (Therapeutic concentration, trough value), >1.0 (Toxic concentration, trough value) ADDITIONAL INFORMATION This test was developed and its performance characteristics determined by [facility] in a manner consistent with CLIA requirements. This test has not been cleared or approved by the U.S. Food and Drug Administration. Test Performed by: [facility] [place] [address] Resource Center Teacher: Mino Cain Ph.D.; CLIA# [id number] POTASSIUMon 06-18-2024 Potassium [Moles/Vol] 3.6 mmol/L Normal 3.5-5.0 [facility] Comment on above: Performed By: #### D GODOY #### [facility] ([id number]) [address] [place] [address] COMPREHENSIVE METABOLIC PANE Ab 06-17-2024 Albumin [Mass/Vol] 3.7 g/dL Normal 3.2-5.3 [facility] Comment on above: Performed By: #### 1 9123-9, [facility], 21299-6, 64772-5, 2777-1, CBCA #### [facility] ([id number]) [address], [address] [place] [address] ALP [Catalytic activity/Vol] 64 U/L Normal 39-130 [facility] Comment on above: Performed By: #### 1 9123-9, CMP, 77097-9, 79666-6, 2777-1, CBCA #### [facility] ([id number]) [address], [address] [place] [address] ALT [Catalytic activity/Vol] 9 U/L Normal 0-31 [facility] Comment on above: Performed By: #### 1 9123-9, CMP, 00429-4, 30872-0, 2777-1, CBCA #### [facility] ([id number]) [address], [address] [place] [address] Anion gap [Moles/Vol] 14 mmol/L Normal 5-15 [facility] Comment on above: Performed By: #### 1 9123-9, CMP, 64561-2, 95138-4, 2777-1, CBCA #### [facility] ([id number]) [address], [address] [place] [address] AST [Catalytic activity/Vol] 11 U/L Normal 0-41 [facility] Comment on above: Performed By: #### 1 9123-9, CMP, 77286-1, 92425-5, 2777-1, CBCA #### [facility] ([id number]) [address], [address] [place] [address] Bilirubin [Mass/Vol] 0.4 mg/dL Normal 0.3-1.2 [facility] Comment on above: Performed By: #### 1 9123-9, CMP, 44854-4, 46755-7, 2777-1, CBCA #### [facility] ([id number]) [address], [address] [place] [address] Calcium [Mass/Vol] 9.2 mg/dL Normal 8.5-10.5 [facility] Comment on above: Performed By: #### 1 9123-9, CMP, 56881-4, 78674-8, 2777-1, CBCA #### [facility] ([id number]) [address], [address] [place] [address] Chloride [Moles/Vol] 103 mmol/L Normal 98-109 [facility] Comment on above: Performed By: #### 1 9123-9, CMP, 91290-5, 64913-8, 2777-1, CBCA #### [facility] ([id number]) [address], [address] [place] [address] CO2 [Moles/Vol] 20 mmol/L Low 22-32 [facility] Comment on above: Performed By: #### 1 9123-9, CMP, 76265-5, 34399-5, 2777-1, CBCA #### [facility] ([id number]) [address], [facility] [address] [place] [address] Creatinine [Mass/Vol] 0.34 mg/dL Low 0.40-1.00 [facility] Comment on above: Result Comment: METH OD TRACEABLE TO IDMS STANDARD Performed By: #### 1 9123-9, CMP, 85385-9, 72183-1, 2777-1, CBCA #### [facility] ([id number]) [address], [address] [place] [address] eGFR (CKD-EPI) NON-RACE DEPENDENT >90 Normal >59 [facility] Comment on above: Result Comment: Reported eGFR is based on the CKD-EPI 2020 equation that does not use a race coefficient. Performed By: #### 1 9123-9, CMP, 57166-4, 79436-9, 2777-1, CBCA #### [facility] ([id number]) [address], [address] [place] [address] Glucose [Mass/Vol] 115 mg/dL High 65-99 [facility] Comment on above: Performed By: #### 1 9123-9, CMP, 44193-9, 93273-5, 2777-1, CBCA #### [facility] ([id number]) [address], [address] [place] [address] Potassium [Moles/Vol] 3.5 mmol/L Normal 3.5-5.0 [facility] Comment on above: Performed By: #### 1 9123-9, CMP, 56155-1, 73943-7, 2777-1, CBCA #### [facility] ([id number]) [address], [address] [place] [address] Protein [Mass/Vol] 6.1 g/dL Normal 6.0-8.0 [facility] Comment on above: Performed By: #### 1 9123-9, CMP, 33296-3, 06750-8, 2777-1, CBCA #### [facility] ([id number]) [address], [address] [place] [address] Sodium [Moles/Vol] 137 mmol/L Normal 134-146 [facility] Comment on above: Performed By: #### 1 9123-9, CMP, 93894-9, 06024-2, 2777-1, CBCA #### [facility] ([id number]) [address], [address] [place] [address] Urea nitrogen [Mass/Vol] 7 mg/dL Normal 5-23 [facility] Comment on above: Performed By: #### 1 9123-9, CMP, 70625-9, 57464-6, 2777-1, CBCA #### [facility] ([id number]) [address], [address] [place] [address] DIGOXINon 06-17-2024 Digoxin [Mass/Vol] 1.1 ng/mL Normal 0.8-2.0 [facility] Comment on above: Performed By: #### 1 9123-9, CMP, 73328-0, 93336-4, 2777-1, CBCA #### [facility] ([id number]) [address], [address] [place] [address] Glucose Glucometer (BldC) [M ass/Vol]on 06-17-2024 Glucose [Mass/Vol] 137 mg/dL High 65-99 [facility] Glucose [Mass/Vol] 147 mg/dL High 65-99 [facility] Glucose [Mass/Vol] 125 mg/dL High 65-99 [facility] Glucose [Mass/Vol] 106 mg/dL High 65-99 [facility] MAGNESIUMon 06-17-2024 Magnesium [Mass/Vol] 1.7 mg/dL Low 1.8-2.6 [facility] Comment on above: Performed By: #### D GODOY #### [facility] ([id number]) [address], [address] [place] [address] POTASSIUMon 06-17-2024 Potassium [Moles/Vol] 4.0 mmol/L Normal 3.5-5.0 [facility] Comment on above: Performed By: #### D GODOY #### [facility] ([id number]) [address], [address] [place] [address] Potassium [Moles/Vol] 3.5 mmol/L Normal 3.5-5.0 [facility] Comment on above: Performed By: #### 1 9123-9, CMP, 35573-5, 57756-5, 2777-1, CBCA #### [facility] ([id number]) [address], [address] [place] [address] COMPREHENSIVE METABOLIC PANE Ab 06-16-2024 Albumin [Mass/Vol] 3.6 g/dL Normal 3.2-5.3 [facility] Comment on above: Performed By: #### 1 9123-9, CMP, 56871-5, 01704-8, 2777-1, CBCA #### [facility] ([id number]) [address], [address] [place] [address] ALP [Catalytic activity/Vol] 63 U/L Normal 39-130 [facility] Comment on above: Performed By: #### 1 9123-9, CMP, 02453-8, 41251-3, 2777-1, CBCA #### [facility] ([id number]) [address], [address] [place] [address] ALT [Catalytic activity/Vol] 8 U/L Normal 0-31 [facility] Comment on above: Performed By: #### 1 9123-9, CMP, 51222-7, 77072-6, 2777-1, CBCA #### [facility] ([id number]) [address], [address] [place] [address] Anion gap [Moles/Vol] 11 mmol/L Normal 5-15 [facility] Comment on above: Performed By: #### 1 9123-9, CMP, 36182-0, 15814-4, 2777-1, CBCA #### [facility] ([id number]) [address], [address] [place] [address] AST [Catalytic activity/Vol] 15 U/L Normal 0-41 [facility] Comment on above: Performed By: #### 1 9123-9, CMP, 16703-6, 48859-9, 2777-1, CBCA #### [facility] ([id number]) [address], [address] [place] [address] Bilirubin [Mass/Vol] 0.4 mg/dL Normal 0.3-1.2 [facility] Comment on above: Performed By: #### 1 9123-9, CMP, 48344-4, 47664-3, 2777-1, CBCA #### [facility] ([id number]) [address], [address] [place] [address] Calcium [Mass/Vol] 8.9 mg/dL Normal 8.5-10.5 [facility] Comment on above: Performed By: #### 1 9123-9, CMP, 32134-7, 68114-4, 2777-1, CBCA #### [facility] ([id number]) [address], [address] [place] [address] Chloride [Moles/Vol] 104 mmol/L Normal 98-109 [facility] Comment on above: Performed By: #### 1 9123-9, CMP, 27028-1, 69081-8, 2777-1, CBCA #### [facility] ([id number]) [address], [address] [place] [address] CO2 [Moles/Vol] 22 mmol/L Normal 22-32 [facility] Comment on above: Performed By: #### 1 9123-9, CMP, 84148-6, 42854-5, 2777-1, CBCA #### [facility] ([id number]) [address], [address] [place] [address] Creatinine [Mass/Vol] 0.33 mg/dL Low 0.40-1.00 [facility] Comment on above: Result Comment: METH OD TRACEABLE TO IDMS STANDARD Performed By: #### 1 9123-9, CMP, 81432-7, 04165-8, 2777-1, CBCA #### [facility] ([id number]) [address], [address] [place] [address] eGFR (CKD-EPI) NON-RACE DEPENDENT >90 Normal >59 [facility] Comment on above: Result Comment: Reported eGFR is based on the CKD-EPI 2020 equation that does not use a race coefficient. Performed By: #### 1 9123-9, CMP, 17297-4, 96518-6, 2777-1, CBCA #### [facility] ([id number]) [address], [address] [place] [address] Glucose [Mass/Vol] 99 mg/dL Normal 65-99 [facility] Comment on above: Performed By: #### 1 9123-9, CMP, 42186-2, 50496-7, 2777-1, CBCA #### [facility] ([id number]) [address], [address] [place] [address] Potassium [Moles/Vol] 3.5 mmol/L Normal 3.5-5.0 [facility] Comment on above: Performed By: #### 1 9123-9, CMP, 15010-4, 88465-9, 2777-1, CBCA #### [facility] ([id number]) [address], [address] [place] [address] Protein [Mass/Vol] 6.0 g/dL Normal 6.0-8.0 [facility] Comment on above: Performed By: #### 1 9123-9, CMP, 34151-5, 50288-6, 2777-1, CBCA #### [facility] ([id number]) [address], [address] [place] [address] Sodium [Moles/Vol] 137 mmol/L Normal 134-146 [facility] Comment on above: Performed By: #### 1 9123-9, CMP, 93691-1, 80517-4, 2777-1, CBCA #### [facility] ([id number]) [address], [address] [place] [address] Urea nitrogen [Mass/Vol] 8 mg/dL Normal 5-23 [facility] Comment on above: Performed By: #### 1 9123-9, CMP, 97149-9, 80563-1, 2777-1, CBCA #### [facility] ([id number]) [address], [address] [place] [address] Glucose Glucometer (BldC) [M ass/Vol]on 06-16-2024 Glucose [Mass/Vol] 141 mg/dL High 65-99 [facility] Glucose [Mass/Vol] 119 mg/dL High 65-99 [facility] Glucose [Mass/Vol] 111 mg/dL High 65-99 [facility] Glucose [Mass/Vol] 108 mg/dL High 65-99 [facility] comment Víctor (o rt)on 06-16-2024 UNLISTED LAB TEST Sent to reference lab [facility] GENERIC ORDERon 025 TEST NAME [facility] Normal [facility] TEST RESULT SEE COMMENTS 06/18/2024 03:43 PM [facility] Comment on above: Result Comment: NOTE Test Result Flag Unit RefValue -- Flecainide, S 0.3 mcg/mL REFERENCE VALUE 0.2 - 1.0 (Therapeutic concentration, trough value), >1.0 (Toxic concentration, trough value) ADDITIONAL INFORMATION This test was developed and its performance characteristics determined by [facility] in a manner consistent with CLIA requirements. This test has not been cleared or approved by the U.S. Food and Drug Administration. Test Performed by: [facility] - [facility] [address] [place] [address] Resource Center Teacher: Mino Cain Ph.D.; CLIA# [id number] DIGOXINon 06-15-2024 Digoxin [Mass/Vol] 0.4 ng/mL Low 0.8-2.0 [facility] Comment on above: Performed By: #### 1 9123-9, CMP, 77973-9, 03727-0, 2777-1, CBCA #### [facility] ([id number]) [address], [address] [place] [address] Glucose Glucometer (BldC) [M ass/Vol]on 06-15-2024 Glucose [Mass/Vol] 111 mg/dL High 65-99 [facility] Glucose [Mass/Vol] 106 mg/dL High 65-99 [facility] Glucose [Mass/Vol] 119 mg/dL High 65-99 [facility] Glucose [Mass/Vol] 91 mg/dL Normal 65-99 [facility] MAGNESIUMon 06-15-2024 Magnesium [Mass/Vol] 1.9 mg/dL Normal 1.8-2.6 [facility] Comment on above: Performed By: #### 1 9123-9, [facility], 99344-2, 98258-8, 2777-1, CBCA #### [facility] ([id number]) [address], [address] [place] [address] Magnesium [Mass/Vol] 1.7 mg/dL Low 1.8-2.6 [facility] Comment on above: Performed By: #### 1 9123-9, CMP, 43933-4, 64248-2, 2777-1, CBCA #### [facility] ([id number]) [address], [address] [place] [address] Magnesium [Mass/Vol] 1.9 mg/dL Normal 1.8-2.6 [facility] Comment on above: Performed By: #### 1 9123-9, CMP, 89109-0, 05927-2, 2777-1, CBCA #### [facility] ([id number]) [address], [address] [place] [address] [facility] GENER[facility] ORDERon 025 TEST NAME [facility] Normal [facility] TEST RESULT SEE COMMENTS 06/16/2024 02:04 PM Normal [facility] Comment on above: Result Comment: NOTE Test Result Flag Unit RefValue -- Flecainide, S 0.4 mcg/mL REFERENCE VALUE 0.2 - 1.0 (Therapeutic concentration, trough value), >1.0 (Toxic concentration, trough value) ADDITIONAL INFORMATION This test was developed and its performance characteristics determined by [facility] in a manner consistent with CLIA requirements. This test has not been cleared or approved by the U.S. Food and Drug Administration. Test Performed by: [facility] - [address] [address] Resource Center Teacher: Mino Cain Ph.D.; CLIA# [id number] POTASSIUMon 06-15-2024 Potassium [Moles/Vol] 3.8 mmol/L Normal 3.5-5.0 [facility] Comment on above: Performed By: #### 1 9123-9, [facility], 81152-6, 29584-4, 2777-1, CBCA #### [facility] ([id number]) [address] [place] [address] Potassium [Moles/Vol] 3.7 mmol/L Normal 3.5-5.0 [facility] Comment on above: Performed By: #### 1 9123-9, [facility], 88912-8, 88818-7, 2777-1, CBCA #### [facility] ([id number]) [address], [address] [place] [address] BASIC METABOLIC PANLon 06-14 Anion gap [Moles/Vol] 10 mmol/L Normal 5-15 [facility] Comment on above: Performed By: #### 1 9123-9, CMP, 44407-0, 60976-0, 2777-1, CBCA #### [facility] ([id number]) [address], [address] [place] [address] Calcium [Mass/Vol] 9.1 mg/dL Normal 8.5-10.5 [facility] Comment on above: Performed By: #### 1 9123-9, CMP, 92861-5, 47368-6, 2777-1, CBCA #### [facility] ([id number]) [address], [address] [place] [address] Chloride [Moles/Vol] 106 mmol/L Normal 98-109 [facility] Comment on above: Performed By: #### 1 9123-9, CMP, 18252-4, 08636-9, 2777-1, CBCA #### [facility] ([id number]) [address], [address] [place] [address] CO2 [Moles/Vol] 24 mmol/L Normal 22-32 [facility] Comment on above: Performed By: #### 1 9123-9, CMP, 72519-7, 65369-9, 2777-1, CBCA #### [facility] ([id number]) [address], [address] [place] [address] Creatinine [Mass/Vol] 0.41 mg/dL Normal 0.40-1.00 [facility] Comment on above: Result Comment: METH OD TRACEABLE TO IDMS STANDARD Performed By: #### 1 9123-9, CMP, 17259-8, 91631-9, 2777-1, CBCA #### [facility] ([id number]) [address], [address] [place] [address] eGFR (CKD-EPI) NON-RACE DEPENDENT >90 Normal >59 [facility] Comment on above: Result Comment: Reported eGFR is based on the CKD-EPI 2020 equation that does not use a race coefficient. Performed By: #### 1 9123-9, CMP, 33261-4, 95050-5, 2777-1, CBCA #### [facility] ([id number]) [address], [address] [place] [address] Glucose [Mass/Vol] 97 mg/dL Normal 65-99 [facility] Comment on above: Performed By: #### 1 9123-9, CMP, 41347-1, 08689-8, 2777-1, CBCA #### [facility] ([id number]) [address], [address] [place] [address] Potassium [Moles/Vol] 3.8 mmol/L Normal 3.5-5.0 [facility] Comment on above: Performed By: #### 1 9123-9, CMP, 45274-0, 84571-9, 2777-1, CBCA #### [facility] ([id number]) [address] [address] [place] [address] Sodium [Moles/Vol] 140 mmol/L Normal 134-146 [facility] Comment on above: Performed By: #### 1 9123-9, CMP, 60681-9, 88777-8, 2777-1, CBCA #### [facility] ([id number]) [address] [address] [place] [address] Urea nitrogen [Mass/Vol] 8 mg/dL Normal 5-23 [facility] Comment on above: Performed By: #### 1 9123-9, CMP, 21403-0, 70838-4, 2777-1, CBCA #### [facility] ([id number]) [address] [address] [place] [address] Glucose Glucometer (BldC) [M ass/Vol]on 06-14-2024 Glucose [Mass/Vol] 114 mg/dL High 65-99 [facility] Glucose [Mass/Vol] 102 mg/dL High 65-99 [facility] Glucose [Mass/Vol] 111 mg/dL High 65-99 [facility] Glucose [Mass/Vol] 127 mg/dL High 65-99 [facility] MAGNESIUMon 06-14-2024 Magnesium [Mass/Vol] 1.7 mg/dL Low 1.8-2.6 [facility] Comment on above: Performed By: #### 1 9123-9, CMP, 84840-0, 92910-6, 2777-1, CBCA #### [facility] ([id number]) [address] [place] [address] Magnesium [Mass/Vol] 1.6 mg/dL Low 1.8-2.6 [facility] Comment on above: Performed By: #### 1 9123-9, [facility], 90986-3, 56459-6, 2777-1, CBCA #### [facility] ([id number]) [address], [address] [place] [address] POTASSIUMon 06-14-2024 Potassium [Moles/Vol] 3.5 mmol/L Normal 3.5-5.0 [facility] Comment on above: Performed By: #### 1 9123-9, [facility], 85921-8, 40147-3, 2777-1, CBCA #### [facility] ([id number]) [address] [place] [address] Potassium [Moles/Vol] 3.5 mmol/L Normal 3.5-5.0 [facility] Comment on above: Performed By: #### 1 9123-9, CMP, 42147-8, 26107-2, 2777-1, CBCA #### [facility] ([id number]) [address] [place] [address] BASIC METABOLIC PANLon 06-13 Anion gap [Moles/Vol] 10 mmol/L Normal 5-15 [facility] Comment on above: Performed By: #### 1 9123-9, CMP, 90975-5, 92980-6, 2777-1, CBCA #### [facility] ([id number]) [address], [address] [place] [address] Calcium [Mass/Vol] 8.9 mg/dL Normal 8.5-10.5 [facility] Comment on above: Performed By: #### 1 9123-9, CMP, 92147-5, 49136-7, 2777-1, CBCA #### [facility] ([id number]) [address], [address] [place] [address] Chloride [Moles/Vol] 106 mmol/L Normal 98-109 [facility] Comment on above: Performed By: #### 1 9123-9, CMP, 27222-2, 71669-6, 2777-1, CBCA #### [facility] ([id number]) [address], [address] [place] [address] CO2 [Moles/Vol] 24 mmol/L Normal 22-32 [facility] Comment on above: Performed By: #### 1 9123-9, CMP, 53568-9, 23357-3, 2777-1, CBCA #### [facility] ([id number]) [address], [address] [place] [address] Creatinine [Mass/Vol] 0.42 mg/dL Normal 0.40-1.00 [facility] Comment on above: Result Comment: METH OD TRACEABLE TO IDMS STANDARD Performed By: #### 1 9123-9, CMP, 97274-5, 88566-7, 2777-1, CBCA #### [facility] ([id number]) [address], [address] [place] [address] eGFR (CKD-EPI) NON-RACE DEPENDENT >90 Normal >59 [facility] Comment on above: Result Comment: Reported eGFR is based on the CKD-EPI 2020 equation that does not use a race coefficient. Performed By: #### 1 9123-9, CMP, 52968-8, 93663-0, 2777-1, CBCA #### [facility] ([id number]) [address], [address] [place] [address] Glucose [Mass/Vol] 95 mg/dL Normal 65-99 [facility] Comment on above: Performed By: #### 1 9123-9, CMP, 06195-7, 52842-2, 2777-1, CBCA #### [facility] ([id number]) [address], [facility] [address] [place] [address] Potassium [Moles/Vol] 3.4 mmol/L Low 3.5-5.0 [facility] Comment on above: Performed By: #### 1 9123-9, CMP, 95069-4, 54249-6, 2777-1, CBCA #### [facility] ([id number]) [address] [address] [place] [address] Sodium [Moles/Vol] 140 mmol/L Normal 134-146 [facility] Comment on above: Performed By: #### 1 9123-9, CMP, 53695-5, 92807-6, 2777-1, CBCA #### [facility] ([id number]) [address] [address] [place] [address] Urea nitrogen [Mass/Vol] 6 mg/dL Normal 5-23 [facility] Comment on above: Performed By: #### 1 9123-9, CMP, 23641-8, 62960-2, 2777-1, CBCA #### [facility] ([id number]) [address], [address] [place] [address] Glucose Glucometer (dC) [M ass/Vol]on 06-13-2024 Glucose [Mass/Vol] 100 mg/dL High 65-99 [facility] Glucose [Mass/Vol] 126 mg/dL High 65-99 [facility] Glucose [Mass/Vol] 123 mg/dL High 65-99 [facility] Glucose [Mass/Vol] 94 mg/dL Normal 65-99 [facility] MAGNESIUMon 06-13-2024 Magnesium [Mass/Vol] 2.1 mg/dL Normal 1.8-2.6 [facility] Comment on above: Performed By: #### 1 9123-9, CMP, 88758-4, 22536-1, 2777-1, CBCA #### [facility] ([id number]) [address], [address] [place] [address] Magnesium [Mass/Vol] 1.5 mg/dL Low 1.8-2.6 [facility] Comment on above: Performed By: #### 1 9123-9, CMP, 80987-5, 88096-9, 2777-1, CBCA #### [facility] ([id number]) [address], [address] [place] [address] POTASSIUMon 06-13-2024 Potassium [Moles/Vol] 3.5 mmol/L Normal 3.5-5.0 [facility] Comment on above: Performed By: #### 1 9123-9, CMP, 25107-7, 05534-0, 2777-1, CBCA #### [facility] ([id number]) [address], [address] [place] [address] BASIC METABOLIC PANLon 06-12 Anion gap [Moles/Vol] 10 mmol/L Normal 5-15 [facility] Comment on above: Performed By: #### 1 9123-9, BMP #### [facility] ([id number]) [address], [address] [place] [address] Calcium [Mass/Vol] 9.1 mg/dL Normal 8.5-10.5 [facility] Comment on above: Performed By: #### 1 9123-9, BMP #### [facility] ([id number]) [address], [address] [place] [address] Chloride [Moles/Vol] 107 mmol/L Normal 98-109 [facility] Comment on above: Performed By: #### 1 9123-9, BMP #### [facility] ([id number]) [address], [address] [place] [address] CO2 [Moles/Vol] 24 mmol/L Normal 22-32 [facility] Comment on above: Performed By: #### 1 9123-9, BMP #### [facility] ([id number]) [address], [address] [place] [address] Creatinine [Mass/Vol] 0.42 mg/dL Normal 0.40-1.00 [facility] Comment on above: Result Comment: METH OD TRACEABLE TO IDMS STANDARD Performed By: #### 1 9123-9, BMP #### [facility] ([id number]) [address], [address] [place] [address] eGFR (CKD-EPI) NON-RACE DEPENDENT >90 Normal >59 [facility] Comment on above: Result Comment: Reported eGFR is based on the CKD-EPI 2020 equation that does not use a race coefficient. Performed By: #### 1 9123-9, BMP #### [facility] ([id number]) [address], [address] [place] [address] Glucose [Mass/Vol] 94 mg/dL Normal 65-99 [facility] Comment on above: Performed By: #### 1 9123-9, BMP #### [facility] ([id number]) [address], [address] [place] [address] Potassium [Moles/Vol] 3.3 mmol/L Low 3.5-5.0 [facility] Comment on above: Performed By: #### 1 9123-9, BMP #### [facility] ([id number]) [address], [address] [place] [address] Sodium [Moles/Vol] 141 mmol/L Normal 134-146 [facility] Comment on above: Performed By: #### 1 9123-9, BMP #### [facility] ([id number]) [address], [address] [place] [address] Urea nitrogen [Mass/Vol] 5 mg/dL Normal 5-23 [facility] Comment on above: Performed By: #### 1 9123-9, BMP #### [facility] ([id number]) [address], [address] [place] [address] DIGOXINon 06-12-2024 Digoxin [Mass/Vol] 0.4 ng/mL Low 0.8-2.0 [facility] Comment on above: Performed By: #### 1 9123-9, CMP, 84444-2, 49701-4, 2777-1, CBCA #### [facility] ([id number]) [address], [address] [place] [address] Glucose 1 Hr post dose gluco se [Mass/Vol]on 06-12-2024 1ST HR GTT 187 mg/dL High 120-170 [facility] Comment on above: Performed By: #### 1 9123-9, CMP, 48822-1, 61451-2, 2777-1, CBCA #### [facility] ([id number]) [address], [address] [place] [address] Glucose 2 Hr post 100 g gluc ose PO [Mass/Vol]on 06-12-2024 2ND HR GTT 100GM LOAD 175 mg/dL High 70-139 [facility] Comment on above: Result Comment: Fourth International Workshop Conference: Recommendations and Rationale for Screening and Diagnosis of Gestational Diabetes Mellitus 2 or more of the following must be met or exceeded for a positive diagnosis. FASTING >=95mg/dL 1hr post 100g load >=180mg/dL 2hr post 100g load >=155mg/dL 3hr post 100g load >=140mg/dL Performed By: #### 1 9123-9, [facility], 61501-8, 80918-2, 2777-1, CBCA #### [facility] ([id number]) [address], [address] [place] [address] Glucose 3 Hr post dose gluco se [Mass/Vol]on 06-12-2024 3RD HR GTT 123 mg/dL High 65-99 [facility] Comment on above: Performed By: #### 1 9123-9, [facility], 46570-2, 92081-2, 2777-1, CBCA #### [facility] ([id number]) [address], [address] [place] [address] Glucose Glucometer (BldC) [M ass/Vol]on 06-12-2024 Glucose [Mass/Vol] 118 mg/dL High 65-99 [facility] Glucose [Mass/Vol] 114 mg/dL High 65-99 [facility] Glucose [Mass/Vol] 102 mg/dL High 65-99 [facility] Glucose post fast [Mass/Vol] on 06-12-2024 FASTING GTT 95 mg/dL Normal 65-99 [facility] Comment on above: Performed By: #### 1 558-6 #### [facility] ([id number]) [address], [address] [place] [address] MAGNESIUMon 06-12-2024 Magnesium [Mass/Vol] 1.9 mg/dL Normal 1.8-2.6 [facility] Comment on above: Performed By: #### 1 9123-9, [facility], 30674-1, 67417-6, 2777-, CBCA #### [facility] ([id number]) [address], [address] [place] [address] Magnesium [Mass/Vol] 1.4 mg/dL Low 1.8-2.6 [facility] Comment on above: Performed By: #### 1 9123-9, CMP, 52797-0, 01648-6, 2777-1, CBCA #### [facility] ([id number]) [address], [address] [place] [address] POTASSIUMon 06-12-2024 Potassium [Moles/Vol] 3.4 mmol/L Low 3.5-5.0 [facility] Comment on above: Performed By: #### 1 9123-9, CMP, 35827-4, 08129-8, 2777-1, CBCA #### [facility] ([id number]) [address], [address] [place] [address] CBC AND AUTO DIFFon 06-12-19 25 ABSOLUTE BASOPHIL 0.0 X10E9/L Normal 0.0-0.2 [facility] Comment on above: Performed By: #### 1 9123-9, CMP, 29903-3, 93104-2, 2777-, CBCA #### [facility] ([id number]) [address], [address] [place] [address] ABSOLUTE NEUTROPHIL 6.7 X10E9/L High 1.5-6.6 [facility] Comment on above: Performed By: #### 1 9123-9, CMP, 57720-0, 10670-8, 2777-1, CBCA #### [facility] ([id number]) [address], [address] [place] [address] Basophils/100 WBC (Bld) 0.4 % Normal [facility] Comment on above: Performed By: #### 1 9123-9, CMP, 41748-7, 42850-7, 2777-, CBCA #### [facility] ([id number]) [address], [address] [place] [address] Eosinophils (Bld) [#/Vol] 0.0 10*3/uL Normal 0.0-0.4 [facility] Comment on above: Performed By: #### 1 9123-9, CMP, 60425-6, 54590-6, 2777-1, CBCA #### [facility] ([id number]) [address], [address] [place] [address] Eosinophils/100 WBC (Bld) 0.4 % Normal [facility] Comment on above: Performed By: #### 1 9123-9, CMP, 71582-1, 50714-1, 2777-1, CBCA #### [facility] ([id number]) [address], [address] [place] [address] Erythrocyte distribution width (RBC) [Ratio] 13.8 % Normal 11.5-15.0 [facility] Comment on above: Performed By: #### 1 9123-9, CMP, 01755-8, 73841-3, 2777-1, CBCA #### [facility] ([id number]) [address], [address] [place] [address] Hematocrit (Bld) [Volume fraction] 36.3 % Normal 35-47 [facility] Comment on above: Performed By: #### 1 9123-9, CMP, 38395-3, 32824-7, 2777-1, CBCA #### [facility] ([id number]) [address], [address] [place] [address] Hemoglobin (Bld) [Mass/Vol] 12.3 g/dL Normal 11.7-15.5 [facility] Comment on above: Performed By: #### 1 9123-9, CMP, 93367-6, 00728-0, 2777-1, CBCA #### [facility] ([id number]) [address], [address] [place] [address] Lymphocytes (Bld) [#/Vol] 1.6 10*3/uL Normal 1.0-3.5 [facility] Comment on above: Performed By: #### 1 9123-9, CMP, 97108-1, 58251-1, 2777-1, CBCA #### [facility] ([id number]) [address], [address] [place] [address] Lymphocytes/100 WBC (Bld) 18.3 % Normal [facility] Comment on above: Performed By: #### 1 9123-9, CMP, 30333-7, 78584-8, 2777-1, CBCA #### [facility] ([id number]) [address], [address] [place] [address] MCH (RBC) [Entitic mass] 28.6 pg Normal 27-34 [facility] Comment on above: Performed By: #### 1 9123-9, CMP, 86282-4, 15797-0, 2777-1, CBCA #### [facility] ([id number]) [address], [address] [place] [address] MCHC (RBC) [Mass/Vol] 33.8 g/dL Normal 32-36 [facility] Comment on above: Performed By: #### 1 9123-9, CMP, 93342-4, 33683-8, 2777-1, CBCA #### [facility] ([id number]) [address], [address] [place] [address] MCV (RBC) [Entitic vol] 85 fL Normal 80-100 [facility] Comment on above: Performed By: #### 1 9123-9, CMP, 77896-1, 00885-7, 2777-1, CBCA #### [facility] ([id number]) [address], [address] [place] [address] Monocytes (Bld) [#/Vol] 0.5 10*3/uL Normal 0-0.9 [facility] Comment on above: Performed By: #### 1 9123-9, CMP, 59717-4, 70065-8, 2777-1, CBCA #### [facility] ([id number]) [address], [facility] [address] [place] [address] Monocytes/100 WBC (Bld) 5.7 % Normal [facility] Comment on above: Performed By: #### 1 9123-9, CMP, 80610-4, 54575-9, 2777-1, CBCA #### [facility] ([id number]) [address], [facility] [address] [place] [address] Neutrophils/100 WBC (Bld) 75.2 % Normal [facility] Comment on above: Performed By: #### 1 9123-9, CMP, 31698-5, 72371-4, 2777-1, CBCA #### [facility] ([id number]) [address], [address] [place] [address] Platelet mean volume (Bld) [Entitic vol] 7.1 fL Normal 7-12 [facility] Comment on above: Performed By: #### 1 9123-9, CMP, 50931-5, 26693-1, 2777-1, CBCA #### [facility] ([id number]) [address], [address] [place] [address] Platelets (Bld) [#/Vol] 231 10*3/uL Normal 150-450 [facility] Comment on above: Performed By: #### 1 9123-9, CMP, 24326-2, 94627-4, 2777-1, CBCA #### [facility] ([id number]) [address], [address] [place] [address] RBC COUNT 4.30 X10E12/L Normal 3.80-5.20 [facility] Comment on above: Performed By: #### 1 9123-9, CMP, 09230-4, 30151-4, 2777-1, CBCA #### [facility] ([id number]) [address], [address] [place] [address] WBC (Bld) [#/Vol] 8.9 10*3/uL Normal 4.0-11.0 [facility] Comment on above: Performed By: #### 1 9123-9, CMP, 01858-3, 33063-9, 2777-1, CBCA #### [facility] ([id number]) [address], [address] [place] [address] COMPREHENSIVE METABOLIC PANE Ab 06-11-2024 Albumin [Mass/Vol] 3.6 g/dL Normal 3.2-5.3 [facility] Comment on above: Performed By: #### 1 9123-9, CMP, 41270-5, 54143-3, 2777-1, CBCA #### [facility] ([id number]) [address], [address] [place] [address] ALP [Catalytic activity/Vol] 64 U/L Normal 39-130 [facility] Comment on above: Performed By: #### 1 9123-9, CMP, 94150-9, 11163-5, 2777-1, CBCA #### [facility] ([id number]) [address], [address] [place] [address] ALT [Catalytic activity/Vol] 10 U/L Normal 0-31 [facility] Comment on above: Performed By: #### 1 9123-9, CMP, 63893-9, 80272-5, 2777-1, CBCA #### [facility] ([id number]) [address], [address] [place] [address] Anion gap [Moles/Vol] 12 mmol/L Normal 5-15 [facility] Comment on above: Performed By: #### 1 9123-9, CMP, 54438-7, 53302-6, 2777-1, CBCA #### [facility] ([id number]) [address], [address] [place] [address] AST [Catalytic activity/Vol] 18 U/L Normal 0-41 [facility] Comment on above: Performed By: #### 1 9123-9, CMP, 59002-2, 71927-3, 2777-1, CBCA #### [facility] ([id number]) [address], [address] [place] [address] Bilirubin [Mass/Vol] 0.2 mg/dL Low 0.3-1.2 [facility] Comment on above: Performed By: #### 1 9123-9, CMP, 09141-2, 07996-5, 2777-1, CBCA #### [facility] ([id number]) [address], [address] [place] [address] Calcium [Mass/Vol] 8.8 mg/dL Normal 8.5-10.5 [facility] Comment on above: Performed By: #### 1 9123-9, CMP, 22694-0, 08275-3, 2777-1, CBCA #### [facility] ([id number]) [address], [address] [place] [address] Chloride [Moles/Vol] 109 mmol/L Normal 98-109 [facility] Comment on above: Performed By: #### 1 9123-9, CMP, 12057-4, 62369-7, 2777-1, CBCA #### [facility] ([id number]) [address], [address] [place] [address] CO2 [Moles/Vol] 20 mmol/L Low 22-32 [facility] Comment on above: Performed By: #### 1 9123-9, CMP, 14694-2, 31251-5, 2777-1, CBCA #### [facility] ([id number]) [address], [address] [place] [address] Creatinine [Mass/Vol] 0.44 mg/dL Normal 0.40-1.00 [facility] Comment on above: Result Comment: METH OD TRACEABLE TO IDMS STANDARD Performed By: #### 1 9123-9, CMP, 94086-3, 83444-3, 2777-1, CBCA #### [facility] ([id number]) [address], [address] [place] [address] eGFR (CKD-EPI) NON-RACE DEPENDENT >90 Normal >59 [facility] Comment on above: Result Comment: Reported eGFR is based on the CKD-EPI 2020 equation that does not use a race coefficient. Performed By: #### 1 9123-9, CMP, 39810-9, 75705-7, 2777-1, CBCA #### [facility] ([id number]) [address], [address] [place] [address] Glucose [Mass/Vol] 79 mg/dL Normal 65-99 [facility] Comment on above: Performed By: #### 1 9123-9, CMP, 13976-6, 30899-3, 2777-1, CBCA #### [facility] ([id number]) [address] [address] Potassium [Moles/Vol] 3.4 mmol/L Low 3.5-5.0 [facility] Comment on above: Performed By: #### 1 9123-9, CMP, 88563-8, 72207-3, 2777-1, CBCA #### [facility] ([id number]) [address], [address] [place] [address] Protein [Mass/Vol] 6.2 g/dL Normal 6.0-8.0 [facility] Comment on above: Performed By: #### 1 9123-9, CMP, 06997-2, 30207-8, 2777-1, CBCA #### [facility] ([id number]) [address], [address] [place] [address] Sodium [Moles/Vol] 141 mmol/L Normal 134-146 [facility] Comment on above: Performed By: #### 1 9123-9, CMP, 46797-8, 91307-5, 2777-1, CBCA #### [facility] ([id number]) [address], [address] [place] [address] Urea nitrogen [Mass/Vol] 5 mg/dL Normal 5-23 [facility] Comment on above: Performed By: #### 1 9123-9, CMP, 57320-0, 03600-3, 2777-1, CBCA #### [facility] ([id number]) [address] [place] [address] DRUG SCREEN, URINEon 025 AMPHETAMINE/METHAMP Negative Normal NEG [facility] Comment on above: Result Comment: AMPH /METH screening cut off = 1000 ng/mL Performed By: #### D GODOY #### [facility] ([id number]) [address], [address] [place] [address] BARBITURATES Negative Normal NEG [facility] Comment on above: Result Comment: Jacqueline iturates screening cut off value = 200 ng/mL Performed By: #### D GODOY #### [facility] ([id number]) [address], [address] [place] [address] BENZODIAZEPINES Negative Normal NEG [facility] Comment on above: Result Comment: Jayjay odiazepines screening cut off value = 200 ng/mL Performed By: #### D GODOY #### [facility] ([id number]) [address], [address] [place] [address] CANNABINOIDS Negative Normal NEG [facility] Comment on above: Result Comment: Brandon abinoids/THC screening cut off value = 50 ng/mL Performed By: #### D GODOY #### [facility] ([id number]) [address], [address] [place] [address] COCAINE METABOLITE Negative Normal NEG [facility] Comment on above: Result Comment: Coca ine screening cut off value = 300 ng/mL Performed By: #### D GODOY #### [facility] ([id number]) [address], [address] [place] [address] ECSTASY Negative Normal NEG [facility] Comment on above: Result Comment: Ecst asy screening cut off value = 500 ng/mL This report is intended for use in clinical monitoring or management of patients. Performed By: #### D GODOY #### [facility] ([id number]) [address] [place] [address] METHADONE Negative Normal NEG [facility] Comment on above: Result Comment: Meth adone screening cut off value = 300 ng/mL. Performed By: #### D GODOY #### [facility] ([id number]) [address] [place] [address] OPIATES Negative Normal NEG [facility] Comment on above: Result Comment: Opia beni screening cut off value = 300 ng/mL NOTE: This test is used for the detection of codeine, hydrocodone (>1000 ng/mL), morphine and hydromorphone (>900 ng/mL) in urine. Performed By: #### D GODOY #### [facility] ([id number]) [address] [place] [address] OXYCODONE Negative Normal NEG [facility] Comment on above: Result Comment: Oxyc odone screening cut off value = 300 ng/mL NOTE: This test is used for the detection of oxycodone and oxymorphone in urine. Performed By: #### D GODOY #### [facility] ([id number]) [address], [address] [place] [address] PHENCYCLIDINE Negative Normal NEG [facility] Comment on above: Result Comment: Phen cyclidine screening cut off value = 25 ng/mL Performed By: #### D GODOY #### [facility] ([id number]) [address] [place] [address] MAGNESIUMon 06-11-2024 Magnesium [Mass/Vol] 1.7 mg/dL Low 1.8-2.6 [facility] Comment on above: Performed By: #### 1 9123-9, CMP, 82569-2, 04281-9, 2777-1, CBCA #### [facility] ([id number]) [address] [place] [address] PHOSPHORUSon 06-11-2024 Phosphate [Mass/Vol] 4.0 mg/dL Normal 2.4-4.9 [facility] Comment on above: Performed By: #### 1 9123-9, [facility], 83363-4, 64590-9, 2777-1, CBCA #### [facility] ([id number]) [address] [place] [address] T. pallidum IgG+IgM IA Ql (S )on 06-11-2024 Syphilis Total <0.2 Normal 0.0-0.8 [facility] Comment on above: Result Comment: NON REACTIVE No serologic evidence of infection to Treponema pallidum (syphilis). Repeat testing may be considered in patients with suspected acute or primary syphilis in 2 to 4 weeks. Performed By: #### 1 9123-9, [facility], 53931-7, 70145-4, 2777-1, CBCA #### [facility] ([id number]) [address] [place] [address] Ultrasound - OfficeOrdered B y: Ravinder Burnett on 06-11-2024 Radiology Study observation (narrative) [facility] Ultrasound - Officeon 2024 Radiology Study observation (narrative) [facility] Vitamin D+Metabolites [Mass/ Vol]on 06-11-2024 VITAMIN D 25 HYD TOT 23.3 ng/mL Low 30-100 [facility] Comment on above: Result Comment: Vitamin D status 25 [place] Vitamin D Deficiency <20 ng/mL Insufficiency 20-29 ng/mL Sufficiency 30-100 ng/mL Toxicity >100 ng/mL NOTE: A pediatric reference range has not been established by the dorr operator of this kit. The [place] [employer] recommends a Vitamin D level of = or >20ng/mL in infants and children. Performed By: #### 1 9123-9, [facility], 51994-4, 31512-3, 2777-1, CBCA #### [facility] ([id number]) [address] [place] [address] ALL CBC WITH AUTO DIFFon BASOPHILS ABSOLUTE AUTO 0 [facility] Basophils/100 WBC (Bld) 0.2 % 0.2 - 2.0 % [facility] Eosinophils/100 WBC (Bld) 0.6 % Low 0.9 - 7.0 % [facility] Erythrocyte distribution width (RBC) [Ratio] 13.6 % 11.0 - 15.0 % [facility] Hematocrit (Bld) [Volume fraction] 36.1 % 36.0 - 48.0 % [facility] ([facility]ld[facility] [Mass/Vol] 12.2 g/dL 12.0 - 16.0 g/dL [facility] IMMATURE GRANULOCYTES ABS AUTO 0.06 High [facility] Immature granulocytes/100 WBC (Bld) 0.7 % High 0.0 - 0.5 % [facility] Interpretation and review of laboratory results Abnormal [facility] LYMPHOCYTES ABSOLUTE AUTO 1.7 [facility] Lymphocytes/100 WBC (Bld) 19.5 % Low 20.5 - 60.0 % [facility] MCH (RBC) [Entitic mass] 29.1 pg 26.7 - 34.0 pg [facility] MCHC (RBC) [Mass/Vol] 33.8 g/dL 29.9 - 35.2 g/dL [facility] MCV (RBC) [Entitic vol] 86.2 fL 81.0 - 99.0 fL [facility] MONOCYTES ABSOLUTE AUTO 0.6 [facility] Monocytes/100 WBC (Bld) 6.4 % 1.7 - 12.0 % [facility] NEUTROPHILS ABSOLUTE AUTO 6.5 [facility] Neutrophils/100 WBC (Bld) 72.6 % 43.0 - 75.0 % [facility] Platelet mean volume (Bld) [Entitic vol] 9 fL Low 9.5 - 13.5 fL [facility]O # 0.1 [facility] PLT 257 [facility] TB RBC 4.19 Low [facility] WBC 8[facility]9 [facility] Informationon 06-10 [employer] [facility] TSHon 06-10-2024 Thyroid Stimulating (3Rd Generation) Hormone/ Tsh 1.48 [facility] Urinalysis macro (dipstick) panel (U)on 06-10-2024 Bilirubin, UA Negative Negative - 4(70) +++ mg/dL [facility] Blood, UA Negative Negative - 50 Jordan/mcL [facility] Clarity, UA Clear Merged with [facility] re Color, UA Yellow [facility] e Glucose, UA Negative Negative - 1999(110) ++++ mg/dL [facility] Interpretation and review of laboratory results Normal [facility] Ketones, UA Negative Negative - 160(16) ++++ mg/dL [facility] Leukocytes, UA Negative Negative - 500+++ Leanne/mcL [facility] Nitrite, UA Negative Negative - Positive [facility] pH, UA 7 5 - 9 [facility] e Protein, UA Negative Negative - 1999(20) ++++ mg/dL [facility] Spec Grav, UA 1.015 1 - 1.03 [facility] Urobilinogen, UA 0.2 0.2 - 12 mg/dL [facility] Ultrasound - Officeon 2024 [facility] US OB 14+ WEEKS ANATOMY SCAN [...] II, MD, PHD at 13-May-2024 08:36:44 AM [facility] Normal Not Available Comment on above: Order Comment: US OB ANATOMY SINGLE W US OB CERVICAL LENGTH Estimated Date of Delivery: 09/04/24 Gestational Age as of 04/15/2024: 19w5d AFP, SERUM, OPEN SPINA BIFID Aon 05-07-2024 AFP MOM 1.00 . [facility] AFP VALUE 66.2 ng/mL . [facility] COMMENT: Comment . [facility] Comment on above: Fiona White , Ph.D., [facility] Director References: Available Upon Request. Multiples Of Median Cutoffs For AFP Elevations Ramírez 2.5 Black 2.8 IDD 2.0 Twins 4.5 Abbreviation Definitions IDD - Insulin Dep Diabetes OSBR - Open Spina Bifida Risk For further inquiries contact [employer] [facility] at [phone]. This test was developed and its performance characteristics determined by [employer]. It has not been cleared or approved by the Food and Drug Administration. Performed at: [facility] [address], [place] [id number] Resource Center Teacher: Darlene Snyder [facility], Phone: [phone] GEST. AGE ON COLLECTION DATE 22.4 . weeks [facility] GESTAT. AGE BASED ON Ultrasound . [facility] Comment on above: 19.7 on 04/15/2024 Recalculations are not recommended when gestational dating by LMP and ultrasound are within 10 days. INSULIN DEP DIABETES No . [facility] INTERPRETATION Comment . [facility] Comment on above: Interpretation: Scre en [...] Customer Services to discuss available options. The [employer] recommends amniocentesis be offered to women age 35 and older. [age] [facility] MULTIPLE GESTATION No . [facility] H ealth[facility] [address] [place] [phone] [facility] . [facility] Photobucket e RESULTS Report . [facility] Cold Futurescar e TEST RESULTS: Negative . [facility] care WEIGHT 195 . lbs [facility] Healthcar e N N ULTRASOUND [id number] [phone] N 1 195 N N N N N White/ CLINISYNC [facility] Cold Futurescar e IGP,APTIMA HPV,AGE GDLNon AGE GDLN ACOG TESTING Note . [facility] Comment on above: TESTS RESULT FLAG UN ITS REF RANGE LAB Clinician Provided Cytology Information Source.............Cervix No. of containers..01 ThinPrep Vial Age Xuan Hayes... FLAG LEGEND: L-Low Normal,H-High Normal,LL-Alert Low,HH-Alert High <-Panic Low,>-Panic High,A-Abnormal,AA-Critical Abnormal Performed at: 01 =G [facility] [address] Ania Barnes MD, IGP, RFX APTIMA HPV ASCU Note . [facility] Comment on above: TESTS RESULT FLAG UN ITS REF RANGE LAB DIAGNOSIS: 02 NEGATIVE FOR INTRAEPITHELIAL LESION OR MALIGNANCY. Specimen adequacy: 02 Satisfactory for evaluation. No endocervical component is identified. Performed by: Sue Butler Cost Control Specialist ([facility]) . 02 Note: Note 02 The Pap [...] <-Panic Low,>-Panic High,A-Abnormal,AA-Critical Abnormal Performed at: [address] [address] Ania Barnes MD, Performed at: =[address] [id number] Resource Center Teacher: Ania Barnes MD, Phone: [phone] Performed at: [address] [id number] Resource Center Teacher: Ania Barnes MD, Phone: [phone] SPATULA-ALONE CERVIX [facility] RECURRENT VAGINITIS (HTRX)on 04-17-2024 ATOPOBIUM VAGINAE 0 [facility] ATOPOBIUM VAGINAE Not detected [facility] BVAB 2,3 (BACTERIAL VAGINOSIS ASSOCIATED BACTERIA 2, 3); MOBILUNCUS SPP 0 [facility] BVAB 2,3 (BACTERIAL VAGINOSIS ASSOCIATED BACTERIA 2, 3); MOBILUNCUS SPP Not detected [facility] GIL ALBICANS, PARAPSILOSIS, TROPICALIS 0 [facility] GIL ALBICANS, PARAPSILOSIS, TROPICALIS Not detected [facility] GIL GLABRATA [address] [facility] GIL GLABRATA Not detected [facility] GIL KRUSEI 0 [facility] GIL KRUSEI Not detected [facility] CHLAMYDIA TRACHOMATIS 0 [facility] CHLAMYDIA TRACHOMATIS Not detected N [facility] GARDNERELLA VAGINALIS 0 [facility] GARDNERELLA VAGINALIS Not detected N [facility] MEGASPHAERA (TYPES 1, 2) 0 [facility] MEGASPHAERA (TYPES 1, 2) Not detected [facility] MYCOPLASMA GENITALIUM 0 [facility] MYCOPLASMA GENITALIUM Not detected N [facility] NEISSERIA GONORRHOEAE 0 NOM [facility] NEISSERIA GONORRHOEAE Not detected N [facility] TRICHOMONAS VAGINALIS 0 [facility] TRICHOMONAS VAGINALIS Not detected [facility] Urinalysis macro (dipstick) panel (U)Ordered By: Ijeoma Carrera on 04-15-2024 Bilirubin, UA Negative Negative - 4(70) +++ mg/dL [facility] Blood, UA Negative Negative - 50 Jordan/mcL [facility] Clarity, UA Clear Merged with [facility] re Color, UA Yellow [facility] Glucose, UA Negative Negative - 1999(110) ++++ mg/dL [facility] Interpretation and review of laboratory results Normal [facility] Ketones, UA Negative Negative - 160(16) ++++ mg/dL [facility] Leukocytes, UA Negative Negative - 500+++ Leanne/mcL [facility] Nitrite, UA Negative Negative - Positive [facility] pH, UA 6.5 5 - 9 [facility] e Protein, UA Negative Negative - 1999(20) ++++ mg/dL [facility] Spec Grav, UA 1.02 1 - 1.03 [facility] Urobilinogen, UA 1.0 0.2 - 12 mg/dL [facility] e ALL CBC WITH AUTO DIFFon BASOPHILS ABSOLUTE AUTO 0.1 [facility] Basophils/100 WBC (Bld) 0.5 % 0.2 - 2.0 % [facility] Eosinophils/100 WBC (Bld) 0.4 % Low 0.9 - 7.0 % [facility] Erythrocyte distribution width (RBC) [Ratio] 12.4 % 11.0 - 15.0 % [facility] Hematocrit (Bld) [Volume fraction] 39.8 % 36.0 - 48.0 % [facility] Health[facility] e Hemoglobin (Bld) [Mass/Vol] 13.5 g/dL 12.0 - 16.0 g/dL [facility] IMMATURE GRANULOCYTES ABS AUTO 0.03 [facility] Immature granulocytes/100 WBC (Bld) 0.3 % 0.0 - 0.5 % [facility] Interpretation and review of laboratory results Abnormal [facility] LYMPHOCYTES ABSOLUTE AUTO 1.8 [facility] Lymphocytes/100 WBC (Bld) 16.2 % Low 20.5 - 60.0 % [facility] MCH (RBC) [Entitic mass] 28.8 pg 26.7 - 34.0 pg [facility] MCHC (RBC) [Mass/Vol] 33.9 g/dL 29.9 - 35.2 g/dL [facility] MCV (RBC) [Entitic vol] 85 fL 81.0 - 99.0 fL [facility] MONOCYTES ABSOLUTE AUTO 0.4 [facility] Monocytes/100 WBC (Bld) 3.8 % 1.7 - 12.0 % [facility] NEUTROPHILS ABSOLUTE AUTO 8.8 High [facility] Neutrophils/100 WBC (Bld) 78.8 % High 43.0 - 75.0 % [facility] Platelet mean volume (Bld) [Entitic vol] 9 fL Low 9.5 - 13.5 fL [facility] Healthc are TBH EO # 0 [facility] TB PLT 351 [facility] TB RBC 4.68 [facility] WBC 11.2 High [facility] Health[facility] e CLINISYNC Drug Screen, Urineon 024 Amphetamine/Methamphe tamine Negative [facility] Barbiturates Negative [facility] Benzodiazepines Negative [facility] Cocaine Metabolite Negative [facility] Methadone Negative [facility] Opiates Negative [facility] Oxycodone Negative [facility] Phencyclidine Negative [facility] Thc Marijuana, Urine Negative [facility] HIV 1&2 AB/AG Screen (P24 AG )on 02-14-2024 HIV 1&2 AB/AG Non-Reactive [facility] Hemoglobin A1con 02-14-2024 HbA1c (Bld) [Mass fraction] 4.8 % 4.0 - 6.0 % [facility] Hepatitis B surface antigeno n 02-14-2024 Hepatitis B Surface Antigen Negative [facility] No Panel Informationon 02-13 [facility] Rubella IGG immune statuson 02-14-2024 Rubella immune IgG immune [facility] Syphilis Total(Unknown Syphi lis Status)Ordered By: Ravinder Burnett on 02-14-2024 Syphilis Non-Reactive [facility] TBH DRUG SCREEN RAPID (URINE )on 02-14-2024 AMPHETAMINE SCREEN URINE Negative NEGATIVE [facility] BARBITURATES SCREEN URINE Negative NEGATIVE [facility] BENZODIAZEPINES SCREEN URINE Negative NEGATIVE [facility] BUPRENORPHINE SCREEN URINE Negative NEGATIVE [facility] Comment on above: DRUG CLASS [...] 300 ng/mL CANNABINOID SCREEN URINE Negative NEGATIVE [facility] COCAINE SCREEN URINE Negative NEGATIVE [facility] METHADONE SCREEN URINE Negative NEGATIVE [facility] METHAMPHETAMINES SCREEN URINE Negative NEGATIVE [facility] OPIATE SCREEN URINE Negative NEGATIVE [facility] OXYCODONE SCREEN URINE Negative NEGATIVE [facility] PHENCYCLIDINE SCREEN URINE Negative NEGATIVE [facility] TRICYCLIC ANTIDEPRESSANT URINE Negative NEGATIVE [facility] Type and screenon 02-14-2024 Abo/Rh(D) Positive [facility] HCG ( test) Ql (U)o n 02-11-2024 Interpretation and review of laboratory results Abnormal [facility] Preg Test, Ur Positive Negative [facility] Ultrasound - OfficeOrdered B y: Ravinder Burnett on 02-11-2024 [facility] Urinalysis macro (dipstick) panel (U)on 02-11-2024 Bilirubin, UA Negative Negative - 4(70) +++ mg/dL [facility] Blood, UA Negative Negative - 50 Jordan/mcL [facility] Clarity, UA Clear [facility]erg[facility] with [facility] re Color, UA Yellow [facility] Glucose, UA Negative Negative - 2000(110) ++++ mg/dL [facility] Interpretation and review of laboratory results Normal [facility] Ketones, UA Negative Negative - 160(16) ++++ mg/dL [facility] Leukocytes, UA Negative Negative - 500+++ Leanne/mcL [facility] Nitrite, UA Negative Negative - Positive [facility] pH, UA 6 5 - 9 [facility] Protein, UA Negative Negative - 2000(20) ++++ mg/dL [facility] Spec Grav, UA 1.025 1 - 1.03 [facility] care Urobilinogen, UA 0.2 0.2 - 12 mg/dL [facility] SARS-CoV-2 (COVID-19) RNA NA A+probe Ql (Resp)on 11-23-2021 SARS-CoV-2 (COVID-19) RNA RASHEED+probe Ql (Unsp spec) Positive [facility] Other Covid-19 PCR ([facility])on 11-03 SARS-CoV-2 (COVID-19) RNA RASHEED+probe Ql (Unsp spec) Not detected Normal NOT DETECTED [facility] Comment on above: Result Comment: This test is not yet approved or cleared by the [place] FDA. When there are no FDA-approved or cleared tests available, and other criteria are met, FDA can make tests available under an emergency access mechanism called an Emergency Use Authorization (EUA). The EUA for this test is supported by the [employer] of Health and Human Service's (HHS's) declaration [...] consistent with SARS-CoV-2. Performed By: #### C COUNT INCLUDES THE [facility] #### [facility] [address] [address] [address] Kaela Stewart Vital Signs Date Time Vital Sign Value Performing Clinician Facility 07-29-2024 15:23-0400 Body weight 90.72 kg Chelsea Reform PA Work Phone: [facility] 07-29-2024 15:23-0400 Diastolic blood pressure 80 mm[Hg] Chelsea DIAZ Work Phone: [facility] 07-29-2024 15:23-0400 Systolic blood pressure 122 mm[Hg] Chelsea DIAZ Work Phone: [facility] 07-17-2024 13:48-0400 Body height 160 cm Berto Suárez MD Work Phone: [facility] 07-17-2024 13:48-0400 Body mass index (BMI) [Ratio] 34.95 kg/m2 Berto Suárez MD Work Phone: [facility] 07-17-2024 13:48-0400 Body weight 89.5 kg Berto Suárez MD Work Phone: [facility] 07-17-2024 13:48-0400 Diastolic blood pressure 71 mm[Hg] Berto Suárez MD Work Phone: [facility] 07-17-2024 13:48-0400 Heart rate 82 /min Berto Suárez MD Work Phone: [facility] 07-17-2024 13:48-0400 Systolic blood pressure 115 mm[Hg] Berto Suárez MD Work Phone: [facility] 07-15-2024 17:02-0400 Body weight 89.81 kg Rosalba Baer NP Work Phone: [facility] 07-15-2024 17:02-0400 Diastolic blood pressure 74 mm[Hg] Rosalba Baer ELECTRONIC DESIGN ENGINEER Work Phone: [facility] 07-15-2024 17:02-0400 Systolic blood pressure 116 mm[Hg] Rosalba Baer ELECTRONIC DESIGN ENGINEER Work Phone: [facility] 07-10-2024 10:37-0400 Body mass index (BMI) [Ratio] 34.84 kg/m2 Ania Fenton MD Work Phone: [facility] 07-10-2024 10:37-0400 Body weight 89.22 kg Ania Fenton MD Work Phone: [facility] 07-10-2024 10:37-0400 Diastolic blood pressure 70 mm[Hg] Ania Fenton MD Work Phone: [facility] 07-10-2024 10:37-0400 Systolic blood pressure 108 mm[Hg] Ania Fenton MD Work Phone: [facility] 07-06-2024 16:15-0400 Body mass index (BMI) [Ratio] 35.07 kg/m2 Holly Sheehan RN Work Phone: [facility] 07-06-2024 16:15-0400 Body weight 89.81 kg Holly Sheehan RN Work Phone: [facility] 06-30-2024 11:25-0400 Body weight 88.81 kg Ronald Sri DO Work Phone: [facility] 06-30-2024 11:25-0400 Diastolic blood pressure 72 mm[Hg] Ronald Sri DO Work Phone: [facility] 06-30-2024 11:25-0400 Systolic blood pressure 118 mm[Hg] Ronald Sri DO Work Phone: [facility] 06-11-2024 14:12-0400 Body height 160 cm Berto Suárez MD Work Phone: [facility] 06-11-2024 14:12-0400 Diastolic blood pressure 76 mm[Hg] Berto Suárez MD Work Phone: [facility] 06-11-2024 14:12-0400 Heart rate 111 /min Berto Suárez MD Work Phone: [facility] 06-11-2024 14:12-0400 Systolic blood pressure 119 mm[Hg] Berto Suárez MD Work Phone: [facility] 06-10-2024 15:58-0400 Body weight 92.76 kg Ronald Sri DO Work Phone: [facility] 06-10-2024 15:58-0400 Diastolic blood pressure 76 mm[Hg] Ronald Sri DO Work Phone: [facility] 06-10-2024 15:58-0400 Systolic blood pressure 114 mm[Hg] Ronald Sri DO Work Phone: [facility] 04-15-2024 16:36-0500 Body weight 88.63 kg Chelsea DIAZ Work Phone: [facility] 04-15-2024 16:36-0500 Diastolic blood pressure 66 mm[Hg] Chelsea DIAZ Work Phone: [facility] 04-15-2024 16:36-0500 Systolic blood pressure 110 mm[Hg] Chelsea DIAZ Work Phone: [facility] 04-04-2024 10:57-0500 Body height 157.48 cm [facility] 04-04-2024 10:57-0500 Body mass index (BMI) [Ratio] 35.4 kg/m2 [facility] 04-04-2024 10:57-0500 Body temperature 99.8 [degF] [facility] 04-04-2024 10:57-0500 Body weight 87.99 kg [facility] 04-04-2024 10:57-0500 Diastolic blood pressure 71 mm[Hg] [facility] 04-04-2024 10:57-0500 Heart rate 118 /min [facility] 04-04-2024 10:57-0500 Respiratory rate 16 /min [facility] 04-04-2024 10:57-0500 SaO2% (BldA) [Mass fraction] 98 % [facility] 04-04-2024 10:57-0500 Systolic blood pressure 101 mm[Hg] [facility] 03-16-2024 16:35-0500 Body weight 88.18 kg Ronald Sri DO Work Phone: [facility] 03-16-2024 16:35-0500 Diastolic blood pressure 68 mm[Hg] Ronald Sri DO Work Phone: [facility] 03-16-2024 16:35-0500 Systolic blood pressure 108 mm[Hg] Ronald Sri DO Work Phone: [facility] 02-11-2024 09:32-0500 Body weight 86.18 kg [facility] 02-11-2024 09:32-0500 Diastolic blood pressure 70 mm[Hg] [facility] Nurse [facility] 02-11-2024 09:32-0500 Systolic blood pressure 110 mm[Hg] [facility] Nurse [facility] 11-23-2021 14:10-0400 Body height 154.94 cm Marianna Moralez Other [facility] Other 11-23-2021 14:10-0400 Body mass index (BMI) [Ratio] 34.01 kg/m2 Marianna Moralez Other [facility] Other 11-23-2021 14:10-0400 Body temperature 99.8 [degF] Marianna Naomy Other [facility] Other 11-23-2021 14:10-0400 Body weight 81.65 kg Marianna Naomy Other [facility] Other 11-23-2021 14:10-0400 Respiratory rate 18 /min Marianna Moralez Other [facility] Other 11-23-2021 14:10-0400 SaO2% (BldA) [Mass fraction] 97 % Marianna Moralez Other [facility] Other Encounters Encounter Date Encounter Type Care Provider Facility Start: 07-29-2024 End: 07-29-2024 Office outpatient visit 15 minutes Chelsea DIAZ Work Phone: [facility] Comment on above: Third trimester preg marcie; 34 weeks gestation of Start: 07-29-2024 End: 07-29-2024 Bamboo flowsheet Chelsea DIAZ Work Phone: [facility] Start: 07-29-2024 End: 07-29-2024 Bamboo flowsheet Chelsea DIAZ Work Phone: [facility] Start: 07-28-2024 End: 07-28-2024 Orders Only Chelsea Segura LPN [facility] Comment on above: Gestational diabetes mellitus (GDM) in third trimester, gestational diabetes method of control unspecified (Primary Dx); Supraventricular tachycardia of fetus affecting management of ; Excessive growth affecting management of in second trimester, single or unspecified fetus; Polyhydramnios affecting Start: 07-24-2024 End: 07-24-2024 ambulatory MARGOTH ALFRED [facility] Start: 07-21-2024 End: 07-21-2024 Telephone encounter Lila Zhao RN [facility] Start: 07-17-2024 End: 07-17-2024 [facility] Start: 07-17-2024 End: 07-17-2024 Office outpatient visit 25 minutes Berto Suárez MD Work Phone: [facility] Comment on above: 33 weeks gestation o f (Primary Dx); Gestational diabetes mellitus (GDM) in third trimester, gestational diabetes method of control unspecified; Supraventricular tachycardia of fetus affecting management of ; Excessive growth affecting management of in second trimester, single or unspecified fetus Start: 07-17-2024 End: 07-17-2024 Clinisync Result Encounter Ronald Sri DO Work Phone: [facility] Unsolicited Start: 07-17-2024 End: 07-17-2024 Clinisync Result Encounter Ronald Sri DO Work Phone: [facility] Unsolicited Start: 07-17-2024 End: 07-17-2024 ambulatory RONALD [facility] Start: 07-15-2024 End: 07-15-2024 Office outpatient visit 15 minutes Rosalba Baer NP Work Phone: [facility] Comment on above: Third trimester preg marcie; 32 weeks gestation of Start: 07-15-2024 End: 07-15-2024 ambulatory ROSALBA BAER Not Available Start: 07-15-2024 End: 07-15-2024 Bamboo flowsheet Rosalba Baer ELECTRONIC DESIGN ENGINEER Work Phone: [facility] Start: 07-15-2024 End: 07-15-2024 Bamboo flowsheet Rosalba Baer ELECTRONIC DESIGN ENGINEER Work Phone: [facility] Start: 07-10-2024 End: 07-10-2024 ambulatory Ania Fenton MD Work Phone: [facility] Comment on above: GA: 32w0d Start: 07-06-2024 End: 07-06-2024 Orders Only Holly Sheehan RN Work Phone: [facility] Comment on above: Diet controlled [...] fetus Start: 06-30-2024 End: 06-30-2024 ambulatory RONALD FIERRO Not Available Start: 06-29-2024 End: 06-29-2024 Documentation procedure Hayleygeraldine Conner RDMS [facility] Start: 06-29-2024 End: 06-29-2024 Telephone encounter Mendy North RN [facility] Start: 06-26-2024 End: 06-26-2024 Orders Only Anahi Ragsdale RN [facility] Comment on above: Diet controlled gest ational diabetes mellitus (GDM) in third trimester (Primary Dx) Start: 06-24-2024 End: 06-28-2024 Evaluation and management of inpatient [facility] Start: 06-24-2024 End: 06-24-2024 Evaluation and management of inpatient [facility] Start: 06-23-2024 End: 06-23-2024 Evaluation and management of inpatient [facility] Start: 06-22-2024 End: 06-22-2024 Telephone encounter Luther serrano Comment on above: Medication Problem Start: 06-22-2024 End: 06-28-2024 Evaluation and management of inpatient [facility] Start: 06-22-2024 End: 06-22-2024 Evaluation and management of inpatient [facility] Start: 06-21-2024 End: 06-21-2024 Telephone encounter Bhavani serrano Comment on above: patient update Start: 06-21-2024 End: 06-21-2024 Evaluation and management of inpatient [facility] Start: 06-20-2024 End: 06-20-2024 Evaluation and management of inpatient [facility] Start: 06-19-2024 End: 06-28-2024 [facility] Start: 06-18-2024 End: 06-18-2024 Evaluation and management of inpatient [facility] Start: 06-17-2024 End: 06-17-2024 Evaluation and management of inpatient [facility] Start: 06-16-2024 End: 06-16-2024 Evaluation and management of inpatient [facility] Start: 06-15-2024 End: 06-23-2024 Evaluation and management of inpatient MEHREEN Meza [facility] Start: 06-15-2024 End: 06-15-2024 Evaluation and management of inpatient [facility] Start: 06-12-2024 End: 06-12-2024 Orders Only Nisha Bonilla RN [facility] Comment on above: Supraventricular tac hycardia of fetus affecting management of (Primary Dx); Polyhydramnios affecting Start: 06-12-2024 End: 06-23-2024 [facility]: 06-11-2024 End: 06-28-2024 Evaluation and management of inpatient VANESA SEGOVIA [facility] Start: 06-11-2024 End: 06-11-2024 Office consultation new/estab patient 80 min Berto Suárez MD Work Phone: [facility] Comment on above: 27 weeks gestation o f (Primary Dx); Supraventricular tachycardia of fetus affecting management of ; Polyhydramnios affecting ; Excessive growth affecting management of in second trimester, single or unspecified fetus Start: 06-11-2024 End: 06-11-2024 ambulatory BERTO SUÁREZ [facility] Start: 06-11-2024 End: 06-11-2024 Chart abstracting Scanning Provider External [facility] at [facility] Start: 06-11-2024 End: 06-11-2024 ambulatory RONALD R SRI [facility] Start: 06-10-2024 End: 06-10-2024 ambulatory [...] Unsolicited Start: 05-11-2024 End: 05-11-2024 ambulatory CHELSEA HYUN Not Available Start: 05-11-2024 End: 05-11-2024 ambulatory CHELSEA HYUN Not Available Start: 05-04-2024 End: 05-07-2024 Clinisync [...] 04-14-2024 End: 04-15-2024 Telephone encounter Chavez Queen [employer] NETWORK ENGINEER-SPORTS PSYCHOLOGIST Work Phone: [facility] Start: 04-04-2024 End: 04-04-2024 ambulatory [facility] Work Phone: Start: 04-04-2024 End: 04-04-2024 Patient encounter procedure [facility] [place] Work Phone: Start: [...] 10w4d Start: 09-10-2023 End: 09-11-2023 Telephone encounter Chavezdonnie Queen S[employer] NETWORK ENGINEER-SPORTS PSYCHOLOGIST Work Phone: [facility] Start: 11-23-2021 End: 11-23-2021 ambulatory Marianna Moralez Other [facility] Other Start: 11-23-2021 Office outpatient ne w 30 minutes Marianna Moralez [facility] [place] Start: 11-28-2020 End: 11-28-[address] MECHELLE MOODY Facility: Procedures Date Procedure Procedure Detail Performing Clinician Start: 07-29-2024 Urnls dip stick/tabl et rgnt non-auto w/o micrscp Chelsea DIAZ Work Phone: Start: 07-17-2024 OB BPP W NON-STRESS Ronald Sri DO Work Phone: Start: 07-15-2024 Urnls dip stick/tabl et rgnt non-auto w/o micrscp Rosalba Baer NP Work Phone: Start: 07-06-2024 Glucose [...] dip stick/tablet rgnt non-auto w/o micrscp Ronald Sri DO Work Phone: Start: 03-27-2023 Adult depression scr eening assessment Chavez Queen ESCOBAR-SPORTS PSYCHOLOGIST Work Phone: Start: 12-15-2018 Microscopic observat ion [Identifier] in Cervix by Cyto stain Chavez Queen SENIOR CIS[employer] NETWORK [facility] Work Phone: Plan of Treatment Date Care Activity Detail Author Start: 07-10-2034 DTaP,Tdap and Td Vaccines (8 - Td or Tdap) DTaP,Tdap and Td Vaccines (8 - Td or Tdap) [facility] Start: 04-15-2027 Screening for malignant neoplasm of cervix Pap Smear [facility] Start: 07-24-2025 Adult BMI Screening Adult BMI Screen ing [facility] Start: 07-24-2025 Tobacco Screening Tobacco Screening [facility] Start: 07-17-2025 Adult BMI Screening Adult BMI Screen ing [facility] Start: 07-17-2025 Tobacco Screening Tobacco Screening [facility] Start: 07-10-2025 Adult BMI Screening Adult BMI Screen ing [facility] Start: 07-10-2025 Tobacco Screening Tobacco Screening [facility] Start: 06-12-2025 End: 06-12-2025 US MFM with or without consult US MFM with or without consult Imaging Routine Supraventricular tachycardia of fetus affecting management of Polyhydramnios affecting Expected: 06/12/2025 (Approximate), [facility] [facility] Phone: Comment on above: Expected: 06/12/2025 (Approximate), Expires: 06/12/2025 Start: 06-11-2025 Adult BMI Screening Adult BMI Screen ing [facility] Start: 06-11-2025 Tobacco Screening Tobacco Screening [facility] Start: 11-02-2024 Influenza vaccination Influenz a Vaccine (Season Ended) [facility] Start: 08-12-2024 End: 08-12-2024 Patient encounter procedure 08/12/2024 3:40 PM EDT Routine [facility] [address] [facility] [place] [id number] Ronald Fierro, DO [address] [place] [address] [facility] Start: 08-07-2024 End: 08-07-2024 Patient encounter procedure 08/07/2024 3:30 PM EDT Appointment [facility] [address] [place] [phone] [facility] Imaging Start: 08-04-2024 End: 08-04-2024 Patient encounter procedure 08/04/2024 9:00 AM EDT Routine [facility] [address] [place] [phone] Marcie Staples MD [address] [place] [address], [address] [address] [facility] Start: 07-29-2024 End: 07-29-2024 Patient encounter procedure 07/29/2024 2:50 PM EDT Routine [facility] [address] [place] [address] Chelsea Carson PA [address] [facility] [place] [address] [facility] Start: 07-28-2024 End: 07-28-2025 US MFM with or without consult US MFM with or without consult Imaging Routine Gestational diabetes mellitus (GDM) in third trimester, gestational diabetes method of control unspecified Supraventricular tachycardia of fetus affecting management of Excessive growth affecting management of in second trimester, single or unspecified fetus Polyhydramnios affecting Expected: 07/28/2024, Expires: 07/28/2025 [facility] Work Phone: Comment on above: Expected: 07/28/2024 , Expires: 07/28/2025 Start: 07-24-2024 End: 07-24-2024 Patient encounter procedure 07/24/2024 9:45 AM EDT Routine [facility] [address] [place] [address] Margoth Connor MD [address] [place] [address] [facility] Start: 07-24-2024 End: 07-24-2024 Patient encounter procedure 07/24/2024 8:30 AM EDT Routine [facility] [address] [place] [address] Margoth Connor MD [address] [place] [address] [facility] Start: 07-17-2024 End: 07-17-2024 Patient encounter procedure [facility] Start: 07-15-2024 End: 07-15-2024 Patient encounter procedure [facility] Comment on above: Arrived Start: 07-10-2024 End: 07-10-2024 ambulatory 07/10/2024 10:00 AM EDT Initial [facility] [address] [place] [address] Ania Fenton MD 0 [facility] [place] [address] [facility] Start: 07-06-2024 End: 07-06-2024 ambulatory 07/06/2024 1:30 PM EDT Support Visit [facility]- [facility] at [facility] [address] [place] [phone] Berto Suárez MD [address], [address] [place] [address] Holly Sheehan RN [address], [address] [place] [address] Migdalia Fernandez, KATE [address], [address] [place] [address] [facility] Start: 06-30-2024 End: 12-30-2024 US [...] [facility] [address] [place] [phone] Ronald Fierro, DO [address] [place] [address] Arrived [facility] Comment on above: Arrived Start: 06-24-2024 End: 06-24-2024 Patient encounter procedure 06/24/2024 2:50 PM EDT Routine [facility] [address] [place] [phone] Ronald Fierro, DO [address] [place] [address] [facility] Start: 06-12-2024 End: 06-12-2024 Patient encounter procedure 06/12/2024 9:40 AM EDT Office Visit [facility] [address] [place] [phone] Chavez Queen, [employer]WORK ENGINEER-SPORTS PSYCHOLOGIST [address] [place] [address] [facility] Start: 05-11-2024 End: 05-11-2024 Patient encounter procedure 05/11/2024 3:40 PM EDT Routine [facility] [address] [place] [phone] Chelsea Carson PA [address] [facility] [place] [address] [facility] Start: 05-11-2024 End: 05-11-2024 Professional / ancillary services management 05/11/2024 2:30 PM EDT Ancillary Procedure [facility] [address] [place] [place] [phone] [facility] Start: 04-15-2024 End: 04-15-2024 Patient encounter procedure 04/15/2024 3:50 PM EST Routine [facility] [address] [place] [phone] Chelsea Carson, PA [address] [facility] [place] [address] [facility] Start: 04-15-2024 End: 10-13-2024 Alpha fetoprotein, maternal Alpha fetoprotein, maternal Lab Routine Second trimester 19 weeks gestation of Expected: 04/15/2024 (Approximate), Expires: 10/13/2024 [facility] Comment on above: Expected: 04/15/2024 (Approximate), Expires: 10/13/2024 Start: 04-15-2024 End: 04-15-2025 US for US OB 14+ weeks anatomy scan Imaging Routine Screening, , for anatomic survey Expected: 04/15/2024, Expires: 04/15/2025 [facility] Comment on above: Expected: 04/15/2024 , Expires: 04/15/2025 Start: 03-16-2024 End: 03-16-2024 Patient encounter procedure 03/16/2024 3:50 PM EST Routine [facility] [address] [place] [phone] Ronald Fierro, [address] [facility] [place] [address] [facility] Start: 02-11-2024 End: 02-10-2025 [...] Expires: 02/10/2025 [facility] Work Phone: Comment on above: Expected: 02/11/2024 (Approximate), Expires: 02/10/2025 Start: 02-11-2024 End: 02-10-2025 Drugs of abuse panel - Urine by Screen method Rapid drug screen, urine Lab Routine , unspecified gestational age Encounter for supervision of normal first in first trimester Expected: 02/11/2024 (Approximate), Expires: 02/10/2025 [facility] Comment on above: Expected: 02/11/2024 (Approximate), Expires: 02/10/2025 Start: 02-11-2024 End: 02-10-2025 US Pelvis transvaginal US OB transvaginal Imaging Routine Missed menses Expected: 02/11/2024 (Approximate), Expires: 02/10/2025 [facility] Comment on above: Expected: 02/11/2024 (Approximate), Expires: 02/10/2025 Start: 11-08-2023 End: 11-08-2023 Patient encounter procedure 11/08/2023 10:00 AM EDT Office Visit [facility] [address] [place] [address] Chavez Queen, S[employer] NETWORK ENGINEER-SPORTS PSYCHOLOGIST [address] [place] [address] [facility] Start: 05-29-2023 Adult BMI Screening Adult BMI Screen ing [facility] Start: 05-29-2023 Depression Screening Depression Scre ening [facility] Start: 05-29-2023 Tobacco Screening Tobacco Screening [facility] Start: 12-15-2021 Screening for malignant neoplasm of cervix Pap Smear [facility] Start: 11-22-2020 DTaP,Tdap and Td Vaccines (7 - Td or Tdap) DTaP,Tdap and Td Vaccines (7 - Td or Tdap) [facility] Start: 10-07-2015 Adult BMI Follow Up Plan Adult BMI Follow Up Plan [facility] Bacteria identified in Urine by Culture Urine culture Microbiology Routine Missed menses Ordered: 02/11/2024 [facility] Comment on above: Ordered: 02/11/2024 CBC W Auto Differential panel - Blood CBC and differential Lab Routine Missed menses , unspecified gestational age Ordered: 02/11/2024 [facility] Comment on above: Ordered: 02/11/2024 CHLAMYDIA TRACHOMATI S (GENITO/STI) CHLAMYDIA TRACHOMATIS (GENITO/STI) Lab Routine STD exposure Ordered: 04/15/2024 [facility] Comment on above: Ordered: 04/15/2024 Cytology Cervical or vaginal smear or scraping study Pap Smear Pathology and Cytology Routine Well woman exam with routine gynecological exam Ordered: 04/15/2024 [facility] Comment on above: Ordered: 04/15/2024 Hemoglobin A1c/Hemoglobin.total in Blood Hemoglobin A1c Lab Routine Missed menses , unspecified gestational age Ordered: 02/11/2024 [facility] Comment on above: Ordered: 02/11/2024 Hepatitis B virus surface Ag [Presence] in Serum or Plasma by Immunoassay Hepatitis B surface antigen Lab Routine Missed menses , unspecified gestational age Ordered: 02/11/2024 [facility] Comment on above: Ordered: 02/11/2024 Hepatitis C virus Ab [Presence] in Serum or Plasma by Immunoassay Hepatitis C antibody Lab Routine Missed menses , unspecified gestational age Ordered: 02/11/2024 [facility] Comment on above: Ordered: 02/11/2024 HIV-1/HIV-2 antigen/antibody combination immunoassay HIV-1 and HIV-2 antibodies Lab Routine Missed menses , unspecified gestational age Ordered: 02/11/2024 [facility] Comment on above: Ordered: 02/11/2024 Neisseria gonorrhoea e DNA [Presence] in Unspecified specimen by RASHEED with probe detection Neisseria gonorrhea DNA probe, direct Lab Routine STD exposure Ordered: 04/15/2024 [facility] Comment on above: Ordered: 04/15/2024 Reagin Ab [Presence] in Serum by RPR RPR Lab Routine Missed menses , unspecified gestational age Ordered: 02/11/2024 [facility] Comment on above: Ordered: 02/11/2024 Rubella antibody, IgG Rubella an tibody, IgG Lab Routine Missed menses , unspecified gestational age Ordered: 02/11/2024 [facility] Comment on above: Ordered: 02/11/2024 SURESWAB(R) ADVANCED VAGINITIS PLUS, TMA SURESWAB(R) ADVANCED VAGINITIS PLUS, TMA Pathology and Cytology Routine Vaginal discharge Ordered: 04/15/2024 [facility] Work Phone: Comment on above: Ordered: 04/15/2024 Immunizations Immunization Date Immunization Notes Care Provider [facility] 07-10-2024 tetanus toxoid, redu john diphtheria toxoid, and acellular pertussis vaccine, adsorbed Ania Fenton MD Work Phone: [facility] 07-10-2024 Immunization, In Cli mayco,; Translations: [Drug or medicament (substance)] Ania Fenton MD Work Phone: [facility] Work Phone: 01-10-2021 Influenza, injectabl e, Madin Kathryn Canine Kidney, preservative free, quadrivalent Chavez Queen S[employer] NETWORK ENGINEER-SPORTS PSYCHOLOGIST Work Phone: [facility] 01-10-2021 influenza virus vacc ine, unspecified formulation Ronald Fierro DO Work Phone: [facility] 11-22-2015 meningococcal oligosaccharide (groups A, C, Y and W-135) diphtheria toxoid conjugate vaccine (MCV4O) Chavez Karyna [facility] Work Phone: [facility] 11-22-2010 tetanus toxoid, redu john diphtheria toxoid, and acellular pertussis vaccine, adsorbed [facility] 10-20-2003 DTaP-hepatitis B and poliovirus vaccine [facility] Work Phone: [facility] 10-20-2003 measles, mumps and rubella virus vaccine [facility] Work Phone: [facility] 10-24-1998 diphtheria, tetanus toxoids and acellular pertussis vaccine, unspecified formulation [facility] Work Phone: [facility] 10-24-1998 haemophilus influenz ae type b vaccine, conjugate unspecified formulation [facility] Work Phone: [facility] 10-24-1998 measles, mumps and rubella virus vaccine [facility] Work Phone: [facility] 06-08-1998 diphtheria, tetanus toxoids and acellular pertussis vaccine, unspecified formulation [facility] Work Phone: [facility] 06-08-1998 haemophilus influenz ae type b vaccine, conjugate unspecified formulation [facility] Work Phone: [facility] 06-08-1998 poliovirus vaccine, unspecified formulation [facility] Work Phone: [facility] 04-01-1998 diphtheria, tetanus toxoids and acellular pertussis vaccine, unspecified formulation [facility] Work Phone: [facility] 04-01-1998 haemophilus influenz ae type b vaccine, conjugate unspecified formulation Chavez Karyna SENIOR [employer] NETWORK ENGINEER-SPORTS PSYCHOLOGIST Work Phone: [facility] 04-01-1998 hepatitis B vaccine, pediatric or pediatric/adolescent dosage Chavez Kayrna SENIOR [employer] NETWORK ENGINEER-SPORTS PSYCHOLOGIST Work Phone: [facility] 04-01-1998 poliovirus vaccine, unspecified formulation Chavez Karnya SENIOR [employer] NETWORK ENGINEER-SPORTS PSYCHOLOGIST Work Phone: [facility] 01-12-1998 diphtheria, tetanus toxoids and acellular pertussis vaccine, unspecified formulation Chavez Karyna SENIOR [employer] NETWORK ENGINEER-SPORTS PSYCHOLOGIST Work Phone: [facility] 01-12-1998 haemophilus influenz ae type b vaccine, conjugate unspecified formulation Chavez Karyna SENIOR [employer] NETWORK ENGINEER-SPORTS PSYCHOLOGIST Work Phone: [facility] 01-12-1998 poliovirus vaccine, unspecified formulation Chavez Karyna SENIOR [employer] NETWORK ENGINEER-SPORTS PSYCHOLOGIST Work Phone: [facility] 1997 hepatitis B vaccine, pediatric or pediatric/adolescent dosage Chavez Karyna SENIOR [employer] NETWORK ENGINEER-SPORTS PSYCHOLOGIST Work Phone: [facility] 1997 hepatitis B vaccine, pediatric or pediatric/adolescent dosage Chavez Karyna SENIOR [employer] NETWORK ENGINEER-SPORTS PSYCHOLOGIST Work Phone: [facility] Payers Date Payer Category Payer Medicaid HMO [employer] [id number] 2024 Private Health Insurance [facility] MEDICAID [id number] 2024 Medicaid MEDICAID [facility] [id number] 2024 Medicaid [id number] 2017 [employer] Francisco Manzano ld Managed Care - PPO ANTHEM [id number] 2017 Unknown ANTHBARRY LACKEY (PPO) [id number] 2017-Present [phone] [address] [place] [address] [id number]. [id number] 1997 Unknown [id number] 2.16.840.1.415585.3.579.2. 593 1997 Unknown [id number] 2.16.840.1.721867.3.579.2. 1259 1997 Unknown [id number] 2.16.840.1.123146.3.579.2. 125 1997 Unknown [id number] 2.16.840.1.738390.3.579.2. 1258 1997 Unknown [id number] 2.16.840.1.500785.3.579.2. 1258 1997 Unknown [id number] 2.16.840.1.505895.3.579.2. 9 1997 Unknown [id number] 2.16.840.1.785222.3.579.2. 1259 1997 Unknown [id number] 2.16.840.1.323748.3.579.2. 9 1997 Unknown [id number] 2.16.840.1.905185.3.579.2. 1259 1997 Unknown [id number] 2.16.840.1.196102.3.579.2. 1286 1997 Unknown [id number] 2.16.840.1.083406.3.579.2. 1286 1997 Unknown [id number] 2.16.840.1.603874.3.579.2. 128 1997 Unknown [id number] 2.16.840.1.573623.3.579.2. 1286 1997 Unknown [id number] 2.16.840.1.300579.3.579.2. 128 1997 Unknown [id number] 2.16.840.1.573499.3.579.2. 128 1997 Unknown [id number] 2.16.840.1.225415.3.579.2. 128 1997 Unknown [id number] 2.16.840.1.563031.3.579.2. 128 1997 Unknown [id number] 2.16840.1.289891.3.579.2. 128 1997 Unknown [id number] 2.16840.1.299895.3.579.2. 128 1997 Unknown [id number] 2.16840.1.934669.3.579.2. 1285 1997 Unknown [id number] 2.840.1.694262.3.579.2. 1285 1997 Unknown [id number] 2.840.1.742682.3.579.2. 1285 1997 Unknown [id number] 2.840.1.628233.3.579.2. 128 1997 Unknown [id number] 2.840.1.719672.3.579.2. 128 1997 Unknown [id number] 2.16840.1.962120.3.579.2. 128 1997 Unknown [id number] 2.840.1.497343.3.579.2. 128 1997 Unknown [id number] 2.16840.1.840421.3.579.2. 128 1997 Unknown [id number] 2.16840.1.456131.3.579.2. 1285 1997 Unknown [id number] 2.16840.1.508253.3.579.2. 128 1997 Unknown [id number] 2.16840.1.258733.3.579.2. 128 1997 Unknown [id number] 2.16.840.1.276224.3.579.2. 1286 1997 Unknown [id number] 2.16.840.1.165552.3.579.2. 1286 1997 Unknown [id number] 2.16.840.1.724628.3.579.2. 1286 1997 Unknown [id number] 2.16.840.1.938207.3.579.2. 1286 1959 Unknown [id number] Social History Date Type Detail Facility Start: 05-28-2022 End: 07-24-2024 Sex Assigned At [facility] Other Tobacco smoking stat us OKIS Tobacco smoking consumption unknown [facility] Start: 12-13-2023 [facility] Start: 1995 Sex assigned at Not on file [facility] Start: 05-28-2022 End: 04-04-2024 Tobacco smoking status NHIS Never smoked tobacco (finding) [facility] Start: 10-07-2014 End: 04-04-2024 Sex Female (finding) [facility] Start: 1995 Sex Assigned At Female [facility] Start: 05-28-2022 Tobacco use and exposure Smokeless tobacco non-user [facility] Start: 05-28-2022 End: 07-24-2024 Alcoholic beverage intake Ex-drinker (finding) [facility] Start: 05-28-2022 End: 07-24-2024 History of Social function [facility] Adolescent depressio n screening assessment 0 [facility] Medical Equipment Procedure Code Equipment Code Equipment Origin al Text Equipment Identifier Dates Start: 06-26-2024 End: 07-06-2024 Functional Status Date Assessment Result Facility [facility] Clinical Notes 11-23-2021 to 07-29-2024 EMILY Villalobos - 07/29/2024 2:50 PM EDTTelephone Encounter - Lila Zhao RN - 07/21/2024 6:40 PM EDTTelephone Encounter - Lila Zhao RN - 07/21/2024 6:40 PM EMILY Shelton - 04/15/2024 3:50 PM EST Note Date & Type Note Facility 07-29-2024 History of Presen t illness Narrative Reason for Appointment: Patient ID: Nisha Mtz is a 28 y.o. female who [...] of: EMILY Villalobos documented in this encounter [facility] 07-21-2024 Miscellaneous Notes Called pt and left her a message [...] any diabetic medications. [facility] Tele[facility] encounter Note Called pt and left her a message that we had pulled her madhavi report and Dr Gillespie reviewed her blood sugars and did not want to make any changes for this week her blood sugars looked good. If she is truly having low blood sugar symptoms she needs to call back to discuss. Pt is currently not on any diabetic medications. [facility] 07-17-2024 History of Presen t illness Narrative Headache/epigastric pain/blurry vision/swelling? No Cramping/contractions? No Abnormal vaginal discharge? No Spotting or vaginal bleeding? No Loss or gush of fluid like your water may have broken? No Recent ER visits or hospitalizations? No Any concerns that you would like me to mention to the provider today? Delivery location [facility] Maternal- Medicine Office Note Reason For Office Visit: follow up HPI: Nisha Mtz is a 28 y.o. at 33w0d [...] Disp: 200 strip, Rfl: 0 blood-glucose meter misc, Please check blood glucose fasting and 1 hour after each meal, Disp: 1 each, Rfl: 0 blood-glucose sensor (FREESTYLE MADHAVI 3 PLUS SENSOR) device, Wear for 15 [...] (50 mEq total) by mouth in the morning., Disp: 150 tablet, Rfl: 3 [id number] acid ( 19) 29 mg iron- 1 [...] gestational diabetes. We first started discussing the pathophysiology of metabolic syndrome and gestational diabetes and how it affects her care. We informed the patient that gestational diabetes is a state of carbohydrate intolerance with subsequently insulin resistance and hyperglycemia. We reviewed the implications and [...] more likely to fail compared to insulin. [facility] data on children whose mothers took oral hypoglycemic agents while is limited. Medication is typically initiated when >20-30% of the blood glucose values in one week are out of range. She has elevations in her fastings. [...] predictive of increased fat mass in the women s offspring. Increased fat mass has been shown [...] Insulin teaching was provided -delivery recommended at [facility] -delivery recommended at 37 weeks -the patient desires to have hybrid follow-up with her primary OB and the [facility] as she is struggling to be coming to [place] for routine visits due to geographic distance [...] Berto Suárez MD, FACOG (she/hers) Maternal- Medicine [facility] [address] [facility] 1[address] [place] [address] This document was created with [employer] technology. Though I make every effort to review the dictation as it is transcribed, on occasion the spoken word can be misinterpreted by the technology leading to inappropriate words, phrases, or sentences. This note is addressed to the requesting provider as a consultation for clinical guidance. Specific medical abbreviations are occasionally used and those are generally approved by the [place]?Board of?Obstetrics and?Gynecology?as well as?Dylan s abbreviations. The above plan of care was based solely on the diagnoses for which a consultation was requested. ?More frequent testing may be indicated based on her other medical/obstetrical conditions. The management of other or medical conditions is beyond the scope of requested consultation and will continue to be followed by the primary vice president sales or primary care provider. Note to patient: [...] of the practitioner. [facility] History of Presen t illness Narrative Reason for Appointment: Patient ID: Nisha Mtz is a 28 y.o. female who [...] nursing note reviewed. Exam conducted with a commercial management accountant present. Vitals: There is no height or [...] by Annie Keith MA on behalf of: Rosalba Baer NP documented in this encounter [facility] 07-10-2024 History of Presen t illness Narrative Pt here for initial HROB 32w0d Denies lof vb ctx Confirms +fm No concerns today HR 86 [facility] Initial High Risk Obstetrics Visit [...] meal 1 each 0 blood-glucose sensor (FREESTYLE MADHAVI 3 PLUS SENSOR) device Wear for 15 [...] mouth in the morning. 150 tablet 3 [id number] acid ( 19) 29 mg iron- 1 [...] bilateral lower extremity edema Assessment and Plan Nisha Mtz 28 y.o. at 32w0d Dated by: 10w US complicated by: arrhythmia/ SVT S/p hospital [...] vaginal delivery testing: Saturday/ NST/ DVP at [place] Reviewed labor warnings and kick counts Problem List Excessive growth affecting management of mother in second trimester, antepartum Intrauterine Overview First trimester Cell free DNA: low risk per patient Carrier screening 28 week labs CBC, HIV, Syphilis completed: yes Rh status: positive Third trimester Tdap: will do with regular OBGYN GBS at 36 weeks Mode of delivery: testing: Saturday/ NST/ DVP at [place] Polyhydramnios affecting Supraventricular tachycardia of fetus affecting [...] the hospital that she would deliver at [facility]. Advised patient to review with MFM as she prefers to continue her care with her primary obgyn and delivery hospital. Reviewed that the recommendation to deliver at [facility] would warrant care with our office and that after she would return to her primary obgyn except for the potential wound check or bp check. Ania Fenton MD MPH 07/13/2024 7:08 AM documented in this encounter [facility] 07-06-2024 History of Presen t illness Narrative CGM report reviewed. No medication needed at this time. KELLI Fernandes 07/06/24 1617 documented in this encounter [facility] 07-06-2024 Group counseling note Patient: Nisha Mtz Date: 07/06/2024 Vitals: 07/06/241614 Weight: 89.8 [...] Face to face time was 100 minutes. [facility] 07-06-[facility]24 Miscellaneous Notes Patient: Nisha Mtz Date: 07/06/2024 Vitals: 07/06/24 1615 Weight: [...] was 100 minutes. documented in this encounter [facility] 06-30-2024 History of Presen t illness Narrative Reason for Appointment: Patient ID: Nisha Mtz is a 28 y.o. female who [...] nursing note reviewed. Exam conducted with a commercial management accountant present. Vitals: There is no height or [...] a day. Pt to be delivered at [facility] Orders Placed This Encounter Procedures US biophysical profile w non stress test POCT urinalysis dipstick manually resulted Follow Up: Patient is to return to office in 2 week for routine OB appointment. Documented by Hayley Oneill LPN on behalf of: Ronald Fierro DO documented in this encounter [facility] 06-29-2024 History of Presen t illness Narrative Spoke with Dr. Fierro's office pertaining to follow up appointments for patient. Per Dr. Suárez's note 06/25/24, patient is to receive 2x weekly NSTs with 1x weekly DVP to evaluate heart rhythm. She is scheduled to be seen at [facility] 07/17/24 at which time she will receive a growth ultrasound and assess heart function. She will also need an EKG, this day, which has already been ordered by Dr. Geronimo Shay, peds Demand Inspector. documented in this encounter [facility] 06-29-2024 Miscellaneous Notes Recvd pt phone call. Pt declined class due to time away from work with recent admit, offered video visit and declined also due to time time away from work, stressed importance of diabetic ed, encouraged to contact OB and will forward to the diabetic team and OB. documented in this encounter [facility] 06-29-2024 Telephone encounter Note Recvd pt phone call. Pt declined class due to time away from work with recent admit, offered video visit and declined also due to time time away from work, stressed importance of diabetic ed, encouraged to contact OB and will forward to the diabetic team and OB. [facility] 06-26-2024 History of Presen t illness Narrative Applied sample Freestyle Madhavi 3 = sensor per Dr Velasquez request. Assisted Nisha with downloading Freestyle Madhavi 3 nasrin on phone. Inserted sensor into left posterior upper arm without difficulty. Sensor started with nasrin. Discussed sensor care and logging events in nasrin. Instructed to check fingerstick BG if low alarm alerts her. Reset alarms and assisted with connecting to [facility] clinic practice. Verbalized understanding. Face to face time 20 minutes. Instructed patient on use of truemetrix glucometer and how to check blood sugars. Blood glucose log provided and instructed to check fasting and 1 hour after meals if Madhavi fails. Patient verbalized understanding. documented in this encounter [facility] 06-22-2024 Miscellaneous Notes Contract: [facility] OB resident with a question about changing medications. Secure chat sent to Dr. Browning documented in this encounter [facility] 06-22-2024 Telephone encounter Note Contract: [facility] OB resident with a question about changing medications. Secure chat sent to Dr. Browning [facility] 06-21-2024 Miscellaneous Notes Contract: [facility] calling for patient update. Room [facility] in labor and delivery. Sent secure chat to Dr Robin Browning. documented in this encounter [facility] 06-21-2024 Telephone encounter Note Contract: [facility] calling for patient update. [facility] in labor and delivery. Sent secure chat to Dr Robin Browning. [facility] 06-11-2024 History of Presen t illness Narrative [...] No Have you been seen here at [facility] in a previous ? No Recent ER visits or hospitalizations? No Bring blood sugar log or meter with you today? (Please bring them with you for every visit at [facility]) NA Flu vaccine (Jan-May)? NA Any concerns that you would like me to mention to the provider today? No [facility] Maternal- Medicine Consult Note Reason For Consult: add on for SVT HPI: Nisha Mtz is a 28 y.o. at 27w6d [...] - 1.00 mg/dL Final METHOD TRACEABLE TO [facility] STANDARD Glucose 06/11/2024 79 65 - 99 [...] range has not been established by the dorr operator of this kit. The [place] Academy of Pediatrics recommends a Vitamin D [...] Berto Suárez MD, FACOG (she/hers) Maternal- Medicine [facility] [address] [place] [address] This document was created with [employer] technology. Though I make every effort to review the dictation as it is transcribed, on occasion the spoken word can be misinterpreted by the technology leading to inappropriate words, phrases, or sentences. This note is addressed to the requesting provider as a consultation for clinical guidance. Specific medical abbreviations are occasionally used and those are generally approved by the [place]?Board of?Obstetrics and?Gynecology?as well as?Dylan s abbreviations. The above plan of care was based solely on the diagnoses for which a consultation was requested. ?More frequent testing may be indicated based on her other medical/obstetrical conditions. The management of other or medical conditions is beyond the scope of requested consultation and will continue to be followed by the primary vice president sales or primary care provider. Note to patient: [...] of the practitioner. documented in this encounter [facility] 06-10-2024 History of Presen t illness Narrative Reason for Appointment: Patient ID: Nisha Mtz is a 28 y.o. female who [...] nursing note reviewed. Exam conducted with a commercial management accountant present. Vitals: There is no height or [...] Ronald Fierro DO documented in this encounter [facility] 04-15-2024 History of Presen t illness Narrative Reason for Appointment: Patient ID: Nisha Mtz is a 28 y.o. female who [...] nursing note reviewed. Exam conducted with a commercial management accountant present. Vitals: There is no height or [...] obtained without difficulty and patient was given [facility] order to have obtained. Orders Placed This Encounter Procedures US OB 14+ weeks anatomy scan CHLAMYDIA TRACHOMATIS (GENITO/STI) Neisseria gonorrhea DNA probe, direct Alpha fetoprotein, maternal POCT urinalysis dipstick manually resulted Follow Up: Patient is to return to our office in 4 weeks for routine OB appointment Documented by Monse Arias LPN on behalf of: EMILY Villalobos documented in this encounter [facility] 04-14-2024 Miscellaneous Notes set up establish care with provider of choice LM on VM documented in this encounter [facility] 04-14-2024 Telephone encounter Note set up establish care with provider of choice [facility] 04-14-2024 Telephone encounter Note LM on VM [facility] 04-04-2024 Evaluation note Diagnosis Onset Date Resolution Influenza A acute April 04, 2024 10:32am [facility] Work Phone: 1(750) 296-247401-13-2025 History of Present illness Narrative* Ijeoma Carrera LPN - 03/16/2024 3:50 PM EST Reason for Appointment: Patient ID: Nisha Mtz is a 28 y.o. female who [...] or undercooked meat, and stay away from [facility]. Patient has been consulted regarding any further do's and don'tsof . Patient voiced understanding and all questions and concerns were answered. Follow Up: Patient is to return in 4 weeks for routine OB appointment. Documented by Ijeoma Carrera LPN on behalf of: Ronald Fierro DO [facility] [id number] History of Present illness Narrative* Annie Keith MA - 02/11/2024 9:00 AM EST Reason for Appointment: Patient ID: Nisha Mtz is a 28 y.o. female who [...] or undercooked meat, and stay away from [facility]. Patient has also been advised to [...] by: Annie Keith MA [facility] [id number] Miscellaneous Notes* Telephone Encounter - Lupe Stacy - 09/10/2023 10:02 AM EDT Reschedule 10/31 appt * Telephone Encounter - Lupe Stacy - 09/10/2023 10:02 AM EDT LM on VM * Telephone Encounter - Lupe Stacy - 09/10/2023 10:02 AM EDT Rescheduled [facility] encounter Note* Telephone Encounter - Lupe Stacy - 09/10/2023 10:02 AM EDT Reschedule 10/31 appt [facility]07-09-2024 Telephone encounter Note* Telephone Encounter - Lupe Regis - 09/10/2023 10:02 AM EDT LM on VM [facility] [employer] [id number] Telephone encounter Note* Telephone Encounter - Lupe Ignacioalicianick - 09/10/2023 10:02 AM EDT Rescheduled [facility]09-22-[facility]22 Evaluation note* Encounter Date Diagnosis [...] POSITIVE education handout discharge instructions. given. [employer] Other Evaluation note* Diagnosis Missed menses , [...] anatomic survey [facility] Diagnosis Second trimester state, incidental 27 weeks gestation of tachycardia affecting management of mother Abnormality in heart rate/rhythm, unspecified as to episode of care or not applicable [facility]* Diagnosis 27 weeks gestation of - Primary Supraventricular tachycardia of fetus affecting management of Polyhydramnios affecting Excessive growth affecting management of in second trimester, single or unspecified fetus [facility] Diagnosis Supraventricular tachycardia of fetus affecting management of - Primary Polyhydramnios affecting [facility]* Diagnosis Diet controlled gestational diabetes mellitus (GDM) in third trimester- Primary [facility]* Diagnosis Diet controlled gestational diabetes mellitus (GDM) in third trimester- Primary [facility]* Diagnosis Third trimester state, incidental 30 weeks gestation of Supraventricular tachycardia of fetus affecting management of Polyhydramnios affecting Excessive growth affecting management of in third trimester, single or unspecified fetus [facility]* Diagnosis Diet controlled gestational diabetes mellitus (GDM) in third trimester documented [facility]* Diagnosis Polyhydramnios affecting [O40.9XX0]- Primary documented in this encounter [facility]* Diagnosis Diet controlled gestational diabetes mellitus (GDM) in third trimester [facility]* Diagnosis Supraventricular tachycardia of fetus affecting management of - Primary Intrauterine Excessive growth affecting management of in second trimester, single or unspecified fetus Polyhydramnios affecting documented in this encounter [facility]* Diagnosis Third trimester state, incidental 32 weeks gestation of documented [facility]* Diagnosis 33 weeks gestation of - Primary Gestational diabetes mellitus (GDM) in third trimester, gestational diabetes method of control unspecified Supraventricular tachycardia of fetus affecting management of Excessive growth affecting management of in second trimester, single or unspecified fetus [facility]* Diagnosis Gestational diabetes mellitus (GDM) in third trimester, gestational diabetes method of control unspecified- Primary Supraventricular tachycardia of fetus affecting management of Excessive growth affecting management of in second trimester, single or unspecified fetus Polyhydramnios affecting [facility]* Diagnosis Third trimester state, incidental 34 weeks gestation of documented in this encounter [facility] HealthcareInstructionsNot on filedocumented in this encounterProMedica Health SystemInstructionsNot on filedocumented in this encounterProGrandview Medical Center Health SystemInstructionsNot on filedocumented in this encounterProSt. Mary'S [facility], Ironton CampusEnteye Health SystemInstructionsNot on filedocumented in this encounterAC[facility] Instructions* Attachments The following attachments cannot be sent through Care Everywhere. * Preeclampsia ([place]oc[place]) documented in this encounterProMedica Health SystemInstructionsNot on [...] Health SystemInstructionsNot on file documented in this encounterProGrandview Medical Center [facility] SystemInstructions* Attachments The following attachments cannot be sent through Care Everywhere. * Your baby's movement before ([place]oc[place]) documented in this encounterProMediEnteye Health SystemInstructionsNot on file documented in this encounterProMediEnteye Health SystemInstructionsNot on file documented in this encounterProSt. Mary'S Medical [facility], Iront[facility] CampusEnteye Health System Summary Purpose Family History No Family History [...] content) DATE CREATED AUTHOR 12/08/2020 [facility] DATE CREATED AUTHOR AUTHOR'S ORGANIZ ATION 07/17/2024 [facility] EPIC DATE CREATED AUTHOR AUTHOR'S ORGANIZ ATION 07/19/2024 [facility] DATE CREATED AUTHOR AUTHOR'S ORGANIZ ATION 07/30/2024 [facility] REASON FOR VISIT (unrecogniz ed [...] (GDM) in third trimester Berto Suárez MD [address], [address] [place] [id number] Phone: tel: fax: Maternal- Medicine at [facility] [address] [place] [address] Phone: tel: fax: Referral ID Status Reason Start Date Expiration Date Visits Requested Visits Authorized [id number] Pending Review Specialty Services Required 06/26/2024 06/26/2025 1 1 Reason Comments Initial Visit Reason Comments Polyhydraminos arrythmia GDM Care Teams (unrecognized sec tion and content) Transportation Museum Helper Relationship Specialty Start Date End Date Terrence Ventura MD [address] [place] [address] PCP - General Family Medicine 02/11/24 Transportation Museum Helper Relationship Specialty Start Date End Date Terrence Ventura MD [address], [place] [address] PCP - General Family Medicine 02/11/24 Transportation Museum Helper Relationship Specialty Start Date End Date Terrence Ventura MD [address], [place] [address] PCP - General Family Medicine 02/11/24 Transportation Museum Helper Relationship Specialty Start Date End Date Terrence Ventura MD [address], [place] [address] PCP - General Family Medicine 02/11/24 Team Status: Active Member Role Status Dates Terrence Ventura DO Primary Care Provider Active Team Status: Inactive Member Role Status Dates Terrence Ventura DO Primary Care Provider Active Start: April 04, 2024 End: April 04, 2024 Michell German APRN Attending Provider Active Start: April 04, 2024 End: April 04, 2024 Transportation Museum Helper Relationship Specialty Start Date End Date Chavez Queen SENIOR [employer]IS[employer] NETWORK ENGINEER-SPORTS PSYCHOLOGIST [address] [place] [address] PCP - General Internal Medicine 09/03/23 Transportation Museum Helper Relationship Specialty Start Date End Date Terrence Ventura MD [address] [place] [address] PCP - General Family Medicine 02/11/24 Transportation Museum Helper Relationship Specialty Start Date End Date Chavez Queen SENIOR CISCO NETWORK ENGINEER-SPORTS PSYCHOLOGIST [address] [place] [address] PCP - General Internal Medicine 09/03/23 Transportation Museum Helper Relationship Specialty Start Date End Date Terrence Ventura MD PCP - General Family Medicine 02/11/24 Transportation Museum Helper Relationship Specialty Start Date End Date Terrence Ventura MD PCP - General Family Medicine 02/11/24 Transportation Museum Helper Relationship Specialty Start Date End Date Terrence Ventura MD PCP - General Family Medicine 02/11/24 Transportation Museum Helper Relationship Specialty Start Date End Date Chavez Queen SENIOR CISCO NETWORK ENGINEER-SPORTS PSYCHOLOGIST [address] [place] [address] PCP - General Internal Medicine 09/03/23 Transportation Museum Helper Relationship Specialty Start Date End Date Chavez Queen SENIOR CISCO NETWORK ENGINEER-SPORTS PSYCHOLOGIST [address] [place] [address] PCP - General Internal Medicine 09/03/23 Transportation Museum Helper Relationship Specialty Start Date End Date Chavez Queen SENIOR CISCO NETWORK ENGINEER-SPORTS PSYCHOLOGIST [address] [place] [address] PCP - General Internal Medicine 09/03/23 Transportation Museum Helper Relationship Specialty Start Date End Date Chavez Queen SENIOR CIS[employer] NETWORK ENGINEER-SPORTS PSYCHOLOGIST [address] [place] [address] PCP - General Internal Medicine 09/03/23 Transportation Museum Helper Relationship Specialty Start Date End Date Ann Marie Queeniana Arnaud SENIOR CIS[employer] NETWORK ENGINEER-SPORTS PSYCHOLOGIST [address] [place] [address] PCP - General Internal Medicine 09/03/23 Transportation Museum Helper Relationship Specialty Start Date End Date KarynaAnn MarieChavez Arnaud SENIOR CISCO NETWORK ENGINEER-SPORTS PSYCHOLOGIST [address] [place] [address] PCP - General Internal Medicine 09/03/23 Transportation Museum Helper Relationship Specialty Start Date End Date KarynaAnn MarieChavez Arnaud SENIOR CISCO NETWORK ENGINEER-SPORTS PSYCHOLOGIST [address] [place] [address] PCP - General Internal Medicine 09/03/23 Transportation Museum Helper Relationship Specialty Start Date End Date KarynaAnn MarieChavez Arnaud SENIOR CISCO NETWORK ENGINEER-SPORTS PSYCHOLOGIST [address] [place] [address] PCP - General Internal Medicine 09/03/23 Transportation Museum Helper Relationship Specialty Start Date End Date Terrence Ventura MD PCP - General Family Medicine 02/11/24 Transportation Museum Helper Relationship Specialty Start Date End Date Terrence Ventura MD PCP - General Family Medicine 02/11/24 Transportation Museum Helper Relationship Specialty Start Date End Date Chavez Queen SENIOR CISCO NETWORK ENGINEER-SPORTS PSYCHOLOGIST [address] [place] [address] PCP - General Internal Medicine 09/03/23 Transportation Museum Helper Relationship Specialty Start Date End Date Chavez Queen SENIOR CISCO NETWORK ENGINEER-SPORTS PSYCHOLOGIST [address] [place] [address] PCP - General Internal Medicine 09/03/23 Transportation Museum Helper Relationship Specialty Start Date End Date Chavez Queen SENIOR CISCO NETWORK ENGINEER-SPORTS PSYCHOLOGIST [address] [place] [address] PCP - General Internal Medicine 09/03/23 Transportation Museum Helper Relationship Specialty Start Date End Date Terrence Ventura MD PCP - General Family Medicine 02/11/24 Transportation Museum Helper Relationship Specialty Start Date End Date Terrence Ventura MD PCP - General Family Medicine 02/11/24 Transportation Museum Helper Relationship Specialty Start Date End Date Chavez Queen SENIOR CISCO NETWORK ENGINEER-SPORTS PSYCHOLOGIST [address] [place] [address] PCP - General Internal Medicine 09/03/23 Transportation Museum Helper Relationship Specialty Start Date End Date Chavez Queen Arnaud, SENIOR CISCO NETWORK ENGINEER-SPORTS PSYCHOLOGIST [address] [place] [address] PCP - General Internal Medicine 09/03/23 Transportation Museum Helper Relationship Specialty Start Date End Date Ann Marie Queendonnie Lares, SENIOR CISCO NETWORK ENGINEER-SPORTS PSYCHOLOGIST [address] [place] [address] PCP - General Internal Medicine 09/03/23 Transportation Museum Helper Relationship Specialty Start Date End Date Terrence Ventura MD PCP - General Family Medicine 02/11/24 Transportation Museum Helper Relationship Specialty Start Date End Date Terrence Ventura MD [address] [place] [address] PCP - General Family Medicine 02/11/24 Goals [...] BE BASED ON THE PRIMARY CLINICAL RECORDS. [facility]. provides no warranty or guarantee of the accuracy or completeness of information in this document.
--- NOTE | 2024-07-30 19:25 | US_ITS ---
The [place] [id number] Patient Name: NISHA FAJARDO MRN: [id number] date: 1995 Sex: F Assigned Patient Location: [facility] Current Patient Location: Accession/Order Number: [id number] Exam Date: 07/31/2024 08:53 Report Date: 07/31/2024 08:55 At the request of: PHIL BURROUGHS DO Procedure: US OB BPP w non-stress BIOPHYSICAL PROFILE: CLINICAL INFORMATION: EXCESSIVE GROWTH O36.63X0 COMPARISON: 07/23/2024 There is a single live intrauterine gestation in cephalic presentation. The reported gestational age is 34 weeks 6 days. The heart rate measures 136 beats per minute. FINDINGS: TONE: 1 or more episodes of activity extension and flexion of extremity or opening and closing of the hand [Y] 2/2 GROSS BODY MOVEMENTS: 3 or more discrete body or limb movements [Y] 2/2 BREATHING MOVEMENTS: 1 or more episodes of breathing lasting at least 30 seconds [Y] 2/2 SKYLAR: A single deepest vertical pocket of amniotic fluid greater than 2 cm [Y] 2/2 SKYLAR: 17.2 cm. This is in upper normal range. Total score: 8/8 US/US OB BPP w non-stress IMPRESSION: NO NORMAL BIOPHYSICAL PROFILE. POSSIBLE NUCHAL CORD. Impression dictated by: Hayley Roldan M.D. 07/31/2024 8:55 AM Dictation Location: [place] [address] Electronically authenticated by: [id number] Y Date: 07/31/2024 08:55
[2024-07-30 20:08] VITALS: BP 107/55; PULSE 84; TEMP 36.6
== END 2024-07-30 20:37 | disposition home or self-care (01) ==
LOC: US 19:20 → FBC 19:25
PROVIDERS: PCP Family Medicine; Visit Provider Obstetrics & Gynecology
DX: O36.63X0 Maternal care for excessive fetal growth, third trimester, not applicable or unspecified (principal); Z3A.34 34 weeks gestation of pregnancy
CPT/HCPCS: 76818

== ENCOUNTER 2024-08-03 19:37 | Outpatient (OUT) | payer OTHER, SELFPAY ==
--- OUTSIDE RECORDS SUMMARY | 2024-07-17 14:30 | XMS_ITS | Encounter Summary ---
Author Organization [facility] [employer] tem Address [id number] [address] [place] [address] Care Team Providers Care Sign Designer Name Role Phone Sarah Queen Arnaud VANGN-LOGISTICS ENGINEERING MANAGER Primary Care Provider + Reason for Visit * Reason Comments Polyhydraminos arrythmia GDM Encounter Details Date Type Department Care Team (Late st Contact Info) Description 07/17/2024 2:30 PM EDT Office Visit Maternal- Medicine at [facility] [address] [place] [id number] Berto Lowry MD [address] [facility], [address] [place] [address] 33 weeks gestation of (Primary Dx); Gestational diabetes mellitus (GDM) in third trimester, gestational diabetes method of control unspecified; Supraventricular tachycardia of fetus affecting management of ; Excessive growth affecting management of in second trimester, single or unspecified fetus Social History Tobacco Use Types Packs/Day Years [...] Sign Reading Time Taken Comments Blood Pressure 115/71 07/17/2024 1:48 PM EDT Pulse 82 07/17/2024 1:48 PM EDT Temperature - - Respiratory Rate - - Oxygen Saturation - - Inhaled Oxygen Concentration - - Weight 89.5 kg (197 lb 5 oz) 07/17/2024 1:48 PM EDT Height 160 cm (5' 3 ) 07/17/2024 1:48 PM EDT Body Mass Index 34.95 07/17/2024 1:48 PM EDT documented in this encounter Patient Instructions * Attachments The following attachments cannot be sent through Care Everywhere. * Your baby's movement before (Surinamese) documented in this encounter Progress Notes * Aspen Mclean RN - 07/17/2024 2:30 PM EDT Headache/epigastric pain/blurry vision/swelling? No Cramping/contractions? No Abnormal vaginal discharge? No Spotting or vaginal bleeding? No Loss or gush of fluid like your water may have broken? No Recent ER visits or hospitalizations? No Any concerns that you would like me to mention to the provider today? Delivery location * Berto Lowry MD - 07/17/2024 2:30 PM EDT [facility] Office Note Reason For Office Visit: follow up HPI: Veda Mtz is a 28 y.o. at 33w0d with Estimated Date of Delivery: 09/04/24 who presented for consultation from Ronald Covington DO regarding Chief Complaint Patient presents with Polyhydraminos arrythmia GDM I have reviewed the pertinent available patient [...] upper quadrant pain or edema. Complications: - SVT s/p admission. Converted now Sinus Rhythm patient is on Sotalol and digoxin. No sonographic evidence of hydrops today. The patient denies side effects from the medications and she has been compliant - GDM. Elevated fastings declined meds - polyhydramnios on US today resolved - macrosomic growth pattern Recent hospitalization: no Review of systems: Review of systems was noncontributory OB Hx: OB History Para Term AB Living 2 1 1 0 0 1 SAB IAB Ectopic Multiple Live Births 0 0 0 0 1 # Outcome Date GA Lbr Zeus/2nd Weight Sex Type Anes PTL Lv 2 Current 1 Term 10/11/16 40w0d F Vag-Spont EPI ÁNGELA PMH: Past Medical History: Diagnosis Date Gestational diabetes PSHIST: No past surgical history on file. Allergies: No Known Allergies Meds: Current Outpatient Medications: alcohol swabs pads, medicated, To use when performing a fingerstick, Disp: 200 each, Rfl: 0 blood sugar diagnostic (glucose blood) strip, Check blood glucose fasting and 1 hour after each meal, Disp: 200 strip, Rfl: 0 blood-glucose meter [facility], Please check blood glucose fasting and 1 hour after each meal, Disp: 1 each, Rfl: 0 blood-glucose sensor (FREESTYLE NEIDA 3 PLUS SENSOR) device, Wear for 15 days and change, Disp: 2 each, Rfl: 3 calcium carbonate-vitamin D3 (OSCAL 500 + D) 500 mg (1,250 mg) - 200 units per tablet, Take 1 tablet by mouth in the morning and 1 tablet in the evening. Take with meals., Disp: 180 tablet, Rfl: 3 digoxin (LANOXIN) 250 mcg tablet, Take 1 tablet (250 mcg total) by mouth every 12 (twelve) hours., Disp: 60 tablet, Rfl: 3 famotidine (PEPCID) 40 mg tablet, Take 1 tablet (40 mg total) by mouth in the morning., Disp: , Rfl: lancets 33 gauge misc, To check blood glucose fasting and 1 hour after each meal, Disp: 200 each, Rfl: 0 magnesium oxide (MAGOX) 400 mg tablet, Take 1 tablet (400 mg total) by mouth in the morning and 1 tablet (400 mg total) before bedtime., Disp: 60 tablet, Rfl: 3 ondansetron (ZOFRAN) 4 mg tablet, Take 1 tablet (4 mg total) by mouth every 8 (eight) hours as needed for nausea or vomiting., Disp: 20 tablet, Rfl: 0 potassium chloride (K-TAB,KLOR-CON) 10 MEQ CR tablet, Take 5 tablets (50 mEq total) by mouth in themorning., Disp: 150 tablet, Rfl: 3 me216-ekac-nlort acid ( 19) 29 mg iron- 1 mg tablet,chewable, Chew 1 tablet and swallow in the morning., Disp: , Rfl: sotaloL (BETAPACE) 160 mg tablet, Take 1 tablet (160 mg total) by mouth every 12 (twelve) hours., Disp: 60 tablet, Rfl: 3 SH: Social History Socioeconomic History Marital status: [...] on file Food Insecurity: No Food Insecurity (07/10/2024) Hunger Screening Food Insecurity - Worry: Never True Food Insecurity - Inability: Never True Transportation Needs: Not on file Physical Activity: Not on file Stress: Not on file Social Connections: Not on file Interpersonal Safety: Not on file Housing Instability: Not on file Physical Exam: Vital Signs Vitals: 07/17/24 1348 BP: 115/71 BP Site: Right Arm BP Postition: Sitting BP CUFF SIZE: M (9-13 inches) Pulse: 82 Weight: 89.5 kg (197 lb 5 oz) Height: 160 cm (5' 3 ) Physical Exam: Gen: Not in acute distress, alert and oriented. Eyes: Pupils equal and reactive Chest: Nonlabored breathing Cardiac: Pulse was regular on vital signs assessment Abdomen: Gravid Skin/extremities: Appears intact. No visible lesions MS:no visible edema Neuro: No focal deficits Notes/Imaging/Labs reviewed Support Visit on 07/06/2024 Component Date Value Ref Range Status External Glucose Fasting Or Rando* 07/06/2024 91 Final No results displayed because visit has over 200 results. Ultrasound findings Pertinent Ultrasound findings are see report Assessment/Plan 28 y.o. @ at 33w0d with Estimated Date of Delivery: 09/04/24 here for consultation regardin. 33 weeks gestation of 2. Gestational diabetes mellitus (GDM) in third trimester, gestational diabetes method of control unspecified 3. Supraventricular tachycardia of fetus affecting management of 4. Excessive growth affecting management of in second trimester, single or unspecified fetus Was admitted in the hospital and received antiarrhythmic medications the fetus was converted to sinus rhythm She is currently on sotalol and digoxin and she is tolerating them well Repeat EKG was recommended and recommended the patient completes it Fetus in sinus rhythm today and no evidence of hydrops The polyhydramnios has resolved however the baby continues to has a macrosomic growth pattern She has been diagnosed with a gestational diabetes. We first started discussing the pathophysiologyof metabolic syndrome and gestational diabetes and how it affects her care. We informed the patient that gestational diabetes is a state of carbohydrate intolerance with subsequently insulinresistance and hyperglycemia. We reviewed the implications and risks of diabetes in . Diabetes in is associated with poorer outcomes if blood glucose levels are not well controlled. Adverse outcomes associated with uncontrolled diabetes include but not limited to macrosomia, polyhydramnios, hypoglycemia, shoulder dystocia, delivery by section, respiratory insufficiency, NICU admission, stillbirth. In addition, women with diabetes in are at increased risk of developing hypertension diseases in . Also patients with gestational diabetes have high-risk of a section and infection. Primary is recommended if the estimated weight is 4500 g or higher. In addition there is a long-term risk of developing type 2 diabetes which can be as high as 70-80%. Therefore she will need to be screened with a 2 hour oral glucose tolerance test around 6 weeks and close follow-up with the PCP long-term is recommended. Treatment for diabetes in : Lifestyle modification with a healthy diet and increasing physical activity can help manage hyperglycemia, and is therefore always encouraged. We briefly discussed diet modifications and physical activity. The mainstay of pharmacotherapy for the treatment of diabetes in remains insulin. Oral hypoglycemics, such as metformin, both cross the placenta and are more likely to fail compared to insulin. intermediate school teacher data on children whose mothers took oral hypoglycemic agents while is limited. Medication is typically initiated when >20-30% of the blood glucose values in one week are outof range. She has elevations in her fastings. Reviewed insulin she declined accepts risks The patient also believes that her fastings are not as high due to the CGM and therefore I asked her to confirm with the fingersticks Glucose goals in : Fasting 65 - 95: Mean fasting glucose values are important in managing diabetes in women because they provide overall glycemic estimate, and are predictive of increased fat mass in the women???s offspring. Increased fat mass has been shown to be associated with the development of childhood obesity, and diabetes. One hour postprandial 90 - 140: Postprandial measurements are important in management of diabetes in because they are associated with incidence of large for gestational age infants, and lower rates of delivery for cephalopelvic disproportion when well controlled. Discussed monitoring for hypogylcemia, and treatment of hypoglycemia. Discussed her current diet and her awareness of grams of carbohydrate per meal. Encouraged her to be aware of carbohydrate intake and note which foods causing values above goal. Encouraged her on diet modifications. Encouraged patient to check post prandials for all three meals, as we cannot support her to limit risk of hyperglycemia without knowing her BG Also requested she check fasting BG levels 8-10hrs from last eating. Timing of delivery was discussed with the patient. Would recommend delivery at 37 weeks which is early term as the patient is on to antiarrhythmic agents for SVT. Delivery at 37 weeks to minimize further maternal exposure to the medications which can be associated with adverse maternal effects. risks with delivery at 37 weeks reviewed the patient in agreement Recommendations -continue with the current antiarrhythmic medications appreciate pediatric cardiology input - repeat growth in 3 weeks -twice weekly NSTs and weekly DVP through primary OB office per patient request due to geographic location -declined insulin today desires to confirm with the fingersticks if her fasting is elevated. Insulin teaching was provided -delivery recommended at [facility] -delivery recommended at 37 weeks -the patient desires to have hybrid follow-up with her primary OB and the [place] [facility] as she is struggling to be coming to [place] for routine visits due to geographic distance Further recommendations to be made pending clinical course and hospital stay Report given to labor and delivery team And concerns the patient had were answered Plan reviewed with patient. She vocalized understanding all questions answered. Thank you for allowing me to participate in her care. Please contact me if you have any concerns. Berto Lowry MD, FACOG (she/hers) Maternal- Medicine [facility] [address] [facility] [address] [place] [address] This document was created with [employer] technology. Though I make every effort to review the dictation as it is transcribed, on occasion the spoken word can be misinterpreted by the technology leading to inappropriate words, phrases, or sentences. This note is addressed to the requesting provider as a consultation for clinical guidance. Specificmedical abbreviations are occasionally used and those are generally approved by the [place]?Board of?Obstetrics and?Gynecology?as well as?Dylan???s abbreviations. The above plan of care was based solely on the diagnoses for which a consultation was requested. ?More frequent testing may be indicated based on her other medical/obstetrical conditions. The management of other or medical conditions is beyond the scope of requested consultation and will c ontinue to be followed by the primary line fisher or primary care provider. Note to patient: The Cures Act makes medical notes like these available to patients inthe interest of transparency. However, be advised this is a medical document. It is intended as peer to peer communication. It is written in medical language and may contain abbreviations or verbiagethat are unfamiliar. It may appear blunt or direct. Medical documents are intended to carry relevant information, facts as evident, and the clinical opinion of the practitioner. * Aspen Mclean RN - 07/17/2024 2:30 PM EDT Patient instructed on insulin administration: when to take prescribed dose in relation to daily schedule, use of the insulin pen, how to give injection into the sub-Q tissue in relation to the gravidabdomen, rotation of injection sites, proper disposal of sharps and symptoms of hypoglycemia. Patient education materials given: insulin action chart, hypoglycemia management, proper disposal of sharps and procedure guide sheet for use of insulin pen. Patient returned demonstration. Questions answered. Encouraged to call office with questions or concerns. documented in this encounter Plan of Treatment Upcoming Encounters Date Type Department Care Team (Late st Contact Info) Description 08/04/2024 9:00 AM EDT Routine Center Services - Women's Services [address] [place] [phone] Shira Staples MD [address] [place] [address], [address] [place] [address] 08/07/2024 3:30 PM EDT Appointment [facility] US Imaging [address] [place] [phone] documented as of this encounter Visit Diagnoses Diagnosis 33 weeks gestation of - Primary Gestational diabetes mellitus (GDM) in third trimester, gestational diabetes method of control unspecified Supraventricular tachycardia of fetus affecting management of Excessive growth affecting management of in second trimester, single or unspecified fetus Supraventricular tachycardia of fetus affecting management of - Primary Gestational diabetes mellitus (GDM) in third trimester, gestational diabetes method of control unspecified Intrauterine Excessive growth affecting management of in second trimester, single or unspecified fetus documented in this encounter Additional Health Concerns Assessment Noted Time PHQ-9 Depression Total Score: 0 05/29/19 23 11:03 AM EDT documented as of this encounter Care Teams Sign Designer Relationship Specialty Start Date End Date Sarah Queen, OUTSIDE SALES ACCOUNT MANAGER-LOGISTICS ENGINEERING MANAGER [address] [place] [address] PCP - General Internal Medicine 09/03/23 documented as of this encounter
--- OUTSIDE RECORDS SUMMARY | 2024-07-24 08:30 | XMS_ITS | Encounter Summary ---
Author Organization [employer] Address [id number] [address] [place] [address] Care Team Providers Care Director Of Special Education Name Role Phone Sarah Queen COMMERCIAL LENDER-ANIMAL CARE TECHNICIAN Primary Care Provider + Reason for Visit * Reason Comments High Risk Gestation Encounter Details Date Type Department Care Team (Late st Contact Info) Description 07/24/2024 8:30 AM EDT [facility] [address] [place] [phone] Margoth Tatum MD [address] [facility] [place] [phone] GA: 34w0d Social History Tobacco Use Types [...] Ibarra DO - 07/24/2024 8:[address] [facility] High Risk Obstetrics Visit Return [...] of delivery: testing: Saturday/ NST/ DVP at [place] Patient reports doing well today and endorses [...] digoxin - Continue twice weekly testing in [place] - Serial growth scans (next 08/07/24) GDMA2 - Declining insulin management - Macrosomic growth pattern - Plan for repeat growth US 3 weeks from last (scheduled 08/07/24) - Continue to monitor BG and follow with MFM care - labor precautions & kick counts reviewed - Planning for delivery at 37 weeks RTC in 2 weeks via HROB Belia Ibarra DO Mass Communications Instructor Resident PGY-4 * Margoth Tatum MD - [...] digoxin Twice weekly testing being done at [place] with Dr. Fierro Gestational DM Meds: none [...] discussed SVT Twice weekly testing--being done at [place] Serial growth scans--scheduled for 08/07/24 Deliver at 37 weeks Gestational Diab, A1 with good control Followed by [facility] RTC 2 weeks via HROB Note to [...] RN - 07/24/2024 8:30 AM EDT Urine [id number] * Marie Luu LPN - 07/24/2024 8:30 AM EDT Pt here for 34w0d HR visit States feeiling good Feeling good movement No leaking of fluid or blood MF told pt to see us for an actual due date / in order to plan 37 week delivery Glucose logs from sensor going to [facility] documented in this encounter Plan of Treatment Upcoming Encounters Date Type Department Care Team (Late st Contact Info) Description 08/04/2024 9:00 AM EDT [facility] [address] [place] [phone] Shira Staples MD [address] [facility] [place] [address] 08/07/2024 3:30 PM EDT Appointment [facility] US Imaging [address] [place] [address] documented as of this encounter Visit Diagnoses Diagnosis Supraventricular tachycardia of fetus affecting management of - Primary Gestational diabetes mellitus (GDM) in third trimester, gestational diabetes method of control unspecified Intrauterine Supraventricular tachycardia of fetus affecting management of - Primary Gestational diabetes mellitus (GDM) in third trimester, gestational diabetes method of control unspecified Intrauterine Excessive growth affecting management of in second trimester, single or unspecified fetus documented in this encounter Additional Health Concerns Assessment Noted Time PHQ-9 Depression Total Score: 0 05/29/19 23 11:03 AM EDT documented as of this encounter Care Teams Director Of Special Education Relationship Specialty Start Date End Date Sarah Queen, COMMERCIAL LENDER-ANIMAL CARE TECHNICIAN [address] [place] [address] PCP - General Internal Medicine 09/03/23 documented as of this encounter
--- OUTSIDE RECORDS SUMMARY | 2024-07-29 14:50 | XMS_ITS | Encounter Summary ---
Author Organization [facility] Healthcare Address [address] [place] [address] Care Team Providers Care Distribution Manager Name Role Phone Terrence Mcintyre MD Primary Care Provider + [phone] Reason for Visit * Reason Comments Routine Visit Encounter Details Date Type Department Care Team (Late st Contact Info) Description 07/29/2024 2:50 PM EDT Routine [facility] [address] [facility] [place] [address] Chelsea Carson PA [address] [place], [facility]11 Third trimester ; 34 weeks gestation of Social History Tobacco Use [...] Sign Reading Time Taken Comments Blood Pressure 122/80 07/29/2024 3:23 PM EDT Pulse - - Temperature - - Respiratory Rate - - Oxygen Saturation - - Inhaled Oxygen Concentration - - Weight 90.7 kg (200 lb) 07/29/2024 3:23 PM EDT Height - - Body Mass Index - - documented in this encounter Progress Notes * EMILY Villalobos - 07/29/2024 2:50 PM EDT Reason for Appointment: Patient ID: [...] Exam Constitutional: Appearance: Normal appearance. She is normal weight. HENT: Head: Normocephalic. Cardiovascular: Rate and Rhythm: Normal rate. Pulses: Normal pulses. Pulmonary: Effort: Pulmonary effort is normal. Breath sounds: Normal breath sounds. Abdominal: Palpations: Abdomen is soft. Musculoskeletal: General: Normal range of motion. Neurological: General: No focal deficit present. Mental Status: She is alert and oriented to person, place, and time. Psychiatric: Mood and Affect: Mood normal. Behavior: Behavior normal. Thought Content: Thought content normal. Judgment: Judgment normal. Vitals and nursing note reviewed. Vitals: There is no height or weight on file to calculate BMI. BP: 122/80 Patient's last menstrual period was 12/05/2023. ASSESSMENT & PLAN ICD-10-CM 1. Third trimester Z34.93 POCT urinalysis dipstick manually resulted 2. 34 weeks gestation of Z3A.34 POCT urinalysis dipstick manually resulted Return OB: Patient presents today for a routine obstetrics appointment. Patient is currently 34w6d . Patient states she is doing well [...] week for routine OB appointment. Documented by MEILY Villalobos on behalf of: EMILY Villalobos documented in this encounter Plan of Treatment Upcoming Encounters Date Type Department Care Team (Late st Contact Info) Description 08/12/2024 3:40 PM EDT Routine [facility] OB [address] [facility] [place] [address] Ronald Fierro, DO [address] [place] [address] documented as of this encounter Procedures Procedure Name Priority Date/Time Associated Diagnosis Comments POCT URINALYSIS DIPSTICK Routine 07/29/2024 3:29 PM EDT Third trimester 34 weeks gestation of documented in this encounter Results * (ABNORMAL) POCT urinalysis dipstick manually resulted (07/29/2024 3:29 PM EDT) Color, UA Yellow Clarity, UA Clear Glucose, UA Negative Negative - 2000(110) ++++ mg/dL Bilirubin, UA Negative Negative - 4(70) +++ mg/dL Ketones, UA Positive Negative - 160(16) ++++ mg/dL Spec Grav, UA 1.020 1 - 1.03 Blood, UA Negative Negative - 50 Jordan/mcL pH, UA 6.5 5 - 9 Protein, UA Negative Negative - 2000(20) ++++ mg/dL Urobilinogen, UA 1.0 0.2 - 12 mg/dL Leukocytes, UA Negative Negative - 500+++ Leanne/mcL Nitrite, UA Negative Negative - Positive Urine 07/29/2024 3:29 PM EDT Chelsea DIAZ POINT OF CARE TEST ENTER/EDIT OR DERABLES Final Result documented in this encounter Visit Diagnoses Diagnosis Third trimester state, incidental 34 weeks gestation of documented in this encounter Care Teams Distribution Manager Relationship Specialty Start Date End Date Terrence Mcintyre MD [address] [facility] [place] [address] PCP - General Family Medicine 02/11/24 documented as of this encounter
--- OUTSIDE RECORDS SUMMARY | 2024-08-03 19:39 | XMS_ITS | Encounter Summary ---
Author Organization [facility] Address [address] [place] [address] Care Team Providers Care Precision Agriculture Technician Name Role Phone Terrence Mcintyre MD Primary Care Provider + [phone] Encounter Details Date Type Department Care Team (Late st Contact Info) Description 07/06/2024 Abstract [facility] OB [address] [place] [address] [address] Fierro [address] [place] [address] Social History Tobacco Use Types Packs/Day [...] Description 08/12/2024 3:40 PM EDT Routine [facility] OB [address] [place] [address] Ronald Fierro, DO [address] [place] [address] documented as of this encounter Visit Diagnoses Not on filedocumented in this encounter Care Teams Precision Agriculture Technician Relationship Specialty Start Date End Date Terrence Mcintyre MD [address] [place] [address] PCP - General Family Medicine 02/11/24 documented as of this encounter
--- OUTSIDE RECORDS SUMMARY | 2024-08-03 19:39 | XMS_ITS | Encounter Summary ---
Author Organization [facility] Address [facility] [id number] [address] [place] [address] Care Team Providers Care World Travel Counselor Name Role Phone Sarah Queen SINGER SONGWRITER-BIOINFORMATICS SUPPORT SPECIALIST Primary Care Provider + Encounter Details Date Type Department Care Team (Late st Contact Info) Description 07/22/2024 Orders Only [facility] Internal Medicine - Family Medicine [address] [place] [address] Ref Prov, [place] [address] Social History Tobacco Use Types Packs/Day Years [...] Health Services - Women's Services [address] [place] [address] Shira Staples MD [address] [facility], [address] [place] [address] 08/07/2024 3:30 PM EDT Appointment [facility] US Imaging [address] [place] [address] documented as of this encounter [...] documented as of this encounter Care Teams World Travel Counselor Relationship Specialty Start Date End Date Sarah Queen APRN-BIOINFORMATICS SUPPORT SPECIALIST [address] [place] [address] PCP - General Internal Medicine 09/03/23 documented as of this encounter
--- OUTSIDE RECORDS SUMMARY | 2024-08-03 19:39 | XMS_ITS | Encounter Summary ---
Author Organization [facility] Address [address] [place] [address] Care Team Providers Care Nipping Machine Operator Name Role Phone Terrence Mcintyre MD Primary Care Provider + [phone] Encounter Details Date Type Department Care Team (Late st Contact Info) Description 07/31/2024 Clinisync Result Encounter N[facility] External Department Unsolicited Phil Fierro, DO [address] [place], [place] [address] Social History Tobacco Use Types Packs/Day Years [...] Routine [facility] BCP OB [address] [place] [phone] Phil Fierro, DO [address] [place], [place] [id number] documented as of this encounter Procedures Procedure Name Priority Date/Time Associated Diagnosis Comments US OB BPP W NON-STRESS 07/31/2024 8:55 AM EDT documented in this encounter Results * US OB BPP W NON-STRESS (07/31/2024 8:55 AM EDT) Anatomical Region Laterality Modality Other 07/31/2024 8:55 AM EDT Narrative 07/31/2024 8:57 AM EDT [address] [address] Ultrasound Report Signed Patient: NISHA FAJARDO MR#: [id number] : 1995 Acct:[id number] Age/Sex: 28 / F ADM Date: 07/30/24 Loc: US Attending Dr: Phil Fierro D.O. Ordering Physician: Phil Fierro D.O. Date of Service: 07/30/24 Procedure(s): US OB BPP w non-stress Accession Number(s): [id number] cc: TERRENCE MCINTYRE ; Phil Fierro D.O. [place] [address] Patient Name: NISHA FAJARDO MRN: [facility]:[id number] date: 1995 Sex: F Assigned Patient Location: [facility] Current Patient Location: Accession/Order Number: [id number] Exam Date: 07/31/2024 08:53 Report Date: 07/31/2024 08:55 At the request of: PHIL FIERRO DO Procedure: US OB BPP w non-stress BIOPHYSICAL PROFILE: CLINICAL INFORMATION: EXCESSIVE GROWTH O36.63X0 COMPARISON: 07/23/2024 There is a single live intrauterine gestation in cephalic presentation. The reported gestational age is 34 weeks 6 days. The heart rate measures 136 beats per minute. FINDINGS: TONE: 1 or more episodes of activity extension and flexion of extremity or opening and closing of the hand [Y] 2/2 GROSS BODY MOVEMENTS: 3 or more discrete body or limb movements [Y] 2/2 BREATHING MOVEMENTS: 1 or more episodes of breathing lasting at least 30 seconds [Y] 2/2 SKYLAR: A single deepest vertical pocket of amniotic fluid greater than 2 cm [Y] 2/2 SKYLAR: 17.2 cm. This is in upper normal range. Total score: 8/ US/US OB BPP w non-stress IMPRESSION: NO NORMAL BIOPHYSICAL PROFILE. POSSIBLE NUCHAL CORD. Impression dictated by: Hayley Roldan M.D. 07/31/2024 8:55 AM Dictation Location: [place] [address] Electronically authenticated by: [id number] Y Date: 07/31/2024 08:55 Dictated By: Hayley Roldan M.D. Signed By: 07/31/2457 DD/ 4 TD/TT: Oil Sales And Service Rep: Procedure Note Radiology, Radiologist, MD - 07/31/2024 [place] [address] Ultrasound Report Signed Patient: NISHA FAJARDO LMR#: [id number] : 1995Acct:[id number] Age/Sex: 28 FADM Date: 07/30/24 Loc: US Attending Dr: Phil Fierro D.O. Ordering Physician: Phil Fierro D.O. Date of Service: 07/30/24 Procedure(s): US OB BPP w non-stress Accession Number(s): [id number] cc: TERRENCE MCINTYRE Corey D.O. The [place] [id number] Patient Name: NISHA FAJARDO MRN: [id number]:[id number] date: 1995 Sex: F Assigned Patient Location: [facility] Current Patient Location: Accession/Order Number: [id number] Exam Date: 07/31/2024 08:53 Report Date: 07/31/2024 08:55 At the request of: PHIL FIERRO DO Procedure: US OB BPP w non-stress BIOPHYSICAL PROFILE: CLINICAL INFORMATION: EXCESSIVE GROWTH O36.63X0 COMPARISON: 07/23/2024 There is a single live intrauterine gestation in cephalic presentation.The reported gestational age is 34 weeks 6 days. The heart ratemeasures 136 beats per minute. FINDINGS: TONE: 1 or more episodes of activity extension and flexion of extremity or opening and closing of the hand [Y] 2/2 GROSS BODY MOVEMENTS: 3 or more discrete body or limb movements [Y] 2/2 BREATHING MOVEMENTS: 1 or more episodes of breathing lastingat least 30 seconds [Y] 2/2 SKYLAR: A single deepest vertical pocket of amniotic fluid greater than 2 cm [Y] 2/2 SKYLAR: 17.2 cm. This is in upper normal range. Total score: 8/8 US/US OB BPP w non-stress IMPRESSION: NO NORMAL BIOPHYSICAL PROFILE. POSSIBLE NUCHAL CORD. Impression dictated by: Hayley Roldan M.D. 07/31/2024 8:55 AM Dictation Location: [place] [address] Electronically authenticated by: [id number] Y Date: 508:55 Dictated By: Hayley Roldan M.D. Signed By:07/31/24 0857 DD/ TD/TT: Oil Sales And Service Rep: us Phil Sri DO [facility] Final Result documented in this encounter Visit Diagnoses Not on filedocumented in this encounter Care Teams Nipping Machine Operator Relationship Specialty Start Date End Date Terrence Mcintyre MD [address] [facility] [place] [address] PCP - General Family Medicine 02/11/24 documented as of this encounter
--- OUTSIDE RECORDS SUMMARY | 2024-08-03 19:39 | XMS_ITS | Encounter Summary ---
Author Organization [employer] Address [id number] [address] [place] [address] Care Team Providers Care Community Health Counselor Name Role Phone Sarah Queen KINDERGARTEN PREP TEACHER-MORTAR CARRIER Primary Care Provider + Encounter Details Date [...] Health Services - Women's Services [address] [place] [address] Shira Staples MD [address] [facility], [address] [place] [address] 08/07/2024 3:30 PM EDT Appointment [facility] US Imaging [address] [place] [address] documented as of this encounter Visit Diagnoses Not on filedocumented in this encounter Additional Health Concerns Assessment Noted Time PHQ-9 Depression Total Score: 0 05/29/19 23 11:03 AM EDT documented as of this encounter Care Teams Community Health Counselor Relationship Specialty Start Date End Date Sarah Queen, ESCOBAR-MORTAR CARRIER [address] [place] [address] PCP - General Internal Medicine 09/03/23 documented as of this encounter
--- OUTSIDE RECORDS SUMMARY | 2024-08-03 19:39 | XMS_ITS | Encounter Summary ---
Author Organization [employer] Address [facility] [id number] [address] [place] [address] Care Team Providers Care Slide Fastener Chain Assembler Name Role Phone BerniceAnn MarieSarahdonnie Lares APRN-PICKING CREW SUPERVISOR Primary Care Provider + Reason for Referral * Cardiology (Routine) - Closed Specialty Diagnoses / Procedures Referred By Jess loza Referred To Contact Diagnoses Supraventricular tachycardia of fetus affecting management of Intrauterine Polyhydramnios affecting Excessive growth affecting management of in second trimester, single or unspecified fetus Procedures ECG 12 lead Aidan Rivera MD [address] [place] [address] Phone: tel: fax: Referral ID Status Reason Start Date Expiration Date Visits Re quested Visits Authorized [id number] Closed 06/29/2024 06/29/2025 1 1 Encounter Details Date Type Department Care Team (Late st Contact Info) Description 06/29/2024 Orders Only [facility] Pediatric Cardiology [address] [place] [address] Aidan Rivera MD [address] [place], [place] [id number] Supraventricular tachycardia of fetus affecting management of [...] Health Services - Women's Services [address] [place] [address] Shira Staples MD [address] [place] [address], [address] [address] 08/07/2024 3:30 PM EDT Appointment [facility] US Imaging [address] [place] [address] documented as of this encounter Results * [...] documented as of this encounter Care Teams Slide Fastener Chain Assembler Relationship Specialty Start Date End Date Sarah Queen APRN-PICKING CREW SUPERVISOR [address] [place] [address] PCP - General Internal Medicine 09/03/23 documented as of this encounter
--- OUTSIDE RECORDS SUMMARY | 2024-08-03 19:39 | XMS_ITS | Encounter Summary ---
Author Organization [facility] Address [address] [place] [address] Care Team Providers Care Dishwashing Machine Operator Name Role Phone Terrence Mcintyre MD Primary Care Provider + [phone] Encounter Details Date Type Department Care Team (Late st Contact Info) Description 06/30/2024 [facility] Orders [address] [place] [address] Ronald Fierro DO [address] [place] [address] Dr [place] [id number] Social History Tobacco Use Types Packs/Day Years [...] Department Care Team (Late Contact Info) Description 08/12/2024 3:40 PM EDT Routine [facility] BCP OB [address] [place] [address] Ronald Fierro DO [address] [place] [address] [place] [address] documented as of this encounter Visit Diagnoses Not on filedocumented in this encounter Care Teams Dishwashing Machine Operator Relationship Specialty Start Date End Date Terrence Mcintyre MD [address] [place], [place] [address] PCP - General Family Medicine 02/11/24 documented as of this encounter
--- OUTSIDE RECORDS SUMMARY | 2024-08-03 19:39 | XMS_ITS | Encounter Summary ---
Author Organization [facility] Address [facility] [id number] [address] [place] [address] Care Team Providers Care Roof Foreman Name Role Phone Sarah Queen ESCOBAR-ELEVATING GRADER OPERATOR Primary Care Provider + Reason for Visit * Reason Comments Med Refill Encounter Details Date Type Department Care Team (Late st Contact Info) Description 02/20/2022 Refill [facility] Internal Medicine - Family Medicine [address] [place] [address] Deja Caal APRN-FNP [address] [place] [address] [place] [address] Social History Tobacco Use Types Packs/Day Years [...] Health Services - Women's Services [address] [place] [address] Shira Staples MD [address] [place] [address], [address] [place] [address] 08/07/2024 3:30 PM EDT Appointment [facility] US Imaging [address] [facility] [place] [address] documented as of this encounter Visit Diagnoses Not on filedocumented in this encounter Care Teams Roof Foreman Relationship Specialty Start Date End Date Sarah Queen APRN-ELEVATING GRADER OPERATOR [address] [place] [address] PCP - General Internal Medicine 09/03/23 documented as of this encounter
--- OUTSIDE RECORDS SUMMARY | 2024-08-03 19:39 | XMS_ITS | Encounter Summary ---
Author Organization [facility] Address [address] [place] [address] Care Team Providers Care Pick Up And Delivery Driver Name Role Phone Terrence Mcintyre MD Primary Care Provider + [phone] Encounter Details Date Type Department Care Team (Late st Contact Info) Description 07/29/2024 Bamboo flowsheet [facility] OB [address] [facility] [place] [address] Chelsea Carson PA [address] [place] [address] Dr [place], [facility] Social History Tobacco [...] Description 08/12/2024 3:40 PM EDT Routine [facility] OB [address] [facility] [place] [address] Ronald Fierro DO [address] [facility] [place] [address] documented as of this encounter Visit Diagnoses Not on filedocumented in this encounter Care Teams Pick Up And Delivery Driver Relationship Specialty Start Date End Date Terrence Mcintyre MD [address] [place] [address] PCP - General Family Medicine 02/11/24 documented as of this encounter
--- OUTSIDE RECORDS SUMMARY | 2024-08-03 19:39 | XMS_ITS | Encounter Summary ---
Author Organization [facility] Address [facility] [id number] [address] [place] [address] Care Team Providers Care Polo Coach Name Role Phone Sarah Queen CERTIFIED NURSING ASSISTANT-BODY SHOP SUPERVISOR Primary Care Provider + Encounter Details Date Type Department Care Team (Late st Contact Info) Description 07/31/2024 Orders Only [facility] Internal Medicine - Family Medicine [address] [place] [address] Ref Prov, [place] [address] Social History Tobacco Use Types Packs/Day Years [...] Health Services - Women's Services [address] [place] [address] Sihra Staples MD [address] [facility], [address] [place] [address] 08/07/2024 3:30 PM EDT Appointment [facility] US Imaging [address] [place] [address] documented as of this encounter Procedures Procedure Name Priority Date/Time Associated Diagnosis Comments US PELVIC WITH TRANSVAGINAL Routine 07/30/2024 9:10 AM EDT documented in this encounter Results * Ultrasound pelvic with transvaginal (07/30/2024 9:10 AM EDT) Anatomical Region Laterality Modality Body, Pelvis Ultrasound us Not In System Ref Prov IMG US ORDERABLES Final R esult documented in this encounter Visit Diagnoses Not on filedocumented in this encounter Additional Health Concerns Assessment Noted Time PHQ-9 Depression Total Score: 0 05/29/19 23 11:03 AM EDT documented as of this encounter Care Teams Polo Coach Relationship Specialty Start Date End Date Sarah Queen APRN-BODY SHOP SUPERVISOR [address] [place] [address] PCP - General Internal Medicine 09/03/23 documented as of this encounter
--- OUTSIDE RECORDS SUMMARY | 2024-08-03 19:39 | XMS_ITS | Encounter Summary ---
Author Organization [facility] Address [address] [place] [address] Care Team Providers Care Retirement Assistant Name Role Phone Terrence Mcintyre MD Primary Care Provider + [phone] Encounter Details Date Type Department Care Team (Late st Contact Info) Description 07/08/2024 Abstract [facility] OB [address] [facility] [place] [address] [address] Fierro [address] [place] [address] Social History Tobacco Use Types Packs/Day [...] Routine [facility] OB [address] [place] [address] Ronald Fierro DO [address] [place] [address] documented as of this encounter Visit Diagnoses Not on filedocumented in this encounter Care Teams Retirement Assistant Relationship Specialty Start Date End Date Terrence Mcintyre MD [address] [place] [address] PCP - General Family Medicine 02/11/24 documented as of this encounter
--- OUTSIDE RECORDS SUMMARY | 2024-08-03 19:39 | XMS_ITS | Encounter Summary ---
Author Organization [facility] Address [address] [place] [address] Care Team Providers Care High School Combination Teacher Name Role Phone Terrence Mcintyre MD Primary Care Provider + [phone] Encounter Details Date Type Department Care Team (Late st Contact Info) Description 07/28/[address] [facility] OB [address] [facility] [place] [address] Ijeoma Carrera LPN Social History Tobacco Use [...] that Dr. Fierro had reviewed her recent [facility] visit andwanted to ensure patient was going to delivery at [facility]. Patient voiced that yes that is the plan and will keep upcoming appointment with our office tomorrow and will continue care locally along with [facility]. Ijeoma Carlton LPN documented in this encounter Plan of Treatment Upcoming Encounters Date Type Department Care Team (Late st Contact Info) Description 08/12/2024 3:40 PM EDT Routine [facility] BCP OB [address] [place] [address] Ronald Fierro DO [address] [place] [address] documented as of this encounter Visit Diagnoses Not on filedocumented in this encounter Care Teams High School Combination Teacher Relationship Specialty Start Date End Date Terrence Mcintyre MD [address] [place] [address] PCP - General Family Medicine 02/11/24 documented as of this encounter
--- OUTSIDE RECORDS SUMMARY | 2024-08-03 19:39 | XMS_ITS | Encounter Summary ---
Author Organization [facility] Address [address] [place] [address] Care Team Providers Care Store Stock Associate Name Role Phone Terrence Mcintyre MD Primary Care Provider + [phone] Encounter Details Date Type Department Care Team (Late st Contact Info) Description 02/12/2024 Clinisync Result Encounter NOMS External Department Unsolicited Phil Fierro, DO [address] [place], [place] [address] Social History Tobacco Use Types Packs/Day Years [...] PM EDT Routine [facility]CP OB [address] [facility] [place] [address] Phil Fierro, DO [address] [place], [place] [address] documented as of this encounter Procedures Procedure Name Priority Date/Time Associated Diagnosis Comments US OB TRANSVAGINAL 02/12/2024 4: 26 AM EST documented in this encounter Results * US OB TRANSVAGINAL (02/12/2024 4:26 AM EST) Anatomical Region Laterality Modality Other 02/12/2024 4:26 AM EST Narrative 02/12/2024 4:29 AM EST [address] [address] Ultrasound Report Signed Patient: Nisha Fajardo MR#: [id number] : 1995 Acct:[id number] Age/Sex: 28 / F ADM Date: 02/11/24 Loc: NOMS Attending Dr: Phil Fierro D.O. Ordering Physician: Phil Fierro D.O. Date of Service: 02/11/24 Procedure(s): US OB transvaginal Accession Number(s): [id number] cc: Phil Fierro D.O.; Physician,Non-Staff [place] [address] [address] Patient Name: NISHA FAJARDO MRN: [facility]:[id number] date: 1995 Sex: F Assigned Patient Location: [facility] Current Patient Location: Accession/Order Number: [id number] Exam Date: 02/11/2024 08:27 Report Date: 02/12/2024 [...] Signed By: 02/12/24 0429 DD/ 5 TD/TT: Operations Officer Trust Department: Procedure Note Radiology, Radiologist, MD - 02/12/[address] [address] Ultrasound Report Signed Patient: Nisha Fajardo LMR#: [id number] : 1995Acct:[id number] Age/Sex: 28 / FADM Date: 02/11/24 Loc: NOMS Attending Dr: Phil Fierro D.O. Ordering Physician: Phil Fierro D.O. Date of Service: 02/11/24 Procedure(s): US OB transvaginal Accession Number(s): [id number] cc: Phil Fierro D.O.; Physician,Non-Staff [facility] The [address] [address] Patient Name: NISHA FAJARDO MRN: [facility]:[id number] date: 1995 Sex: F Assigned Patient Location: [facility] Current Patient Location: Accession/Order Number: [id number] Exam Date: 02/11/2024 08:27 Report Date: 02/12/2024 [...] Al[place]te M.D. Signed By:02/12/24428 DD/ 5 TD/TT: Operations Officer Trust Department: us Phil Sri DO [facility] Final Result documented in this encounter Visit Diagnoses Not on filedocumented in this encounter Care Teams Store Stock Associate Relationship Specialty Start Date End Date Terrence Mcintyre MD [address] [facility] [place] [address] PCP - General Family Medicine 02/11/24 documented as of this encounter
--- OUTSIDE RECORDS SUMMARY | 2024-08-03 19:39 | XMS_ITS | Encounter Summary ---
Author Organization [facility] Address [address] [place] [address] Care Team Providers Care Rehab Physician Name Role Phone Terrence Mcintyre MD Primary Care Provider + [phone] Encounter Details Date Type Department Care Team (Late st Contact Info) Description 07/20/2024 Abstract [facility] OB [address] [facility] [address] [address] Fierro [address] [place] [address] Social History [...] Description 08/12/2024 3:40 PM EDT Routine [facility] OB [address] [place] [address] Ronald Fierro, DO [address] [place] [address] documented as of this encounter Visit Diagnoses Not on filedocumented in this encounter Care Teams Rehab Physician Relationship Specialty Start Date End Date Terrence Mcintyre MD [address] [place] [address] PCP - General Family Medicine 02/11/24 documented as of this encounter
--- OUTSIDE RECORDS SUMMARY | 2024-08-03 19:39 | XMS_ITS | Encounter Summary ---
Author Organization [facility] [employer] Address [id number] [place] [address] Care Team Providers Care Hand Carver Name Role Phone Sarah Queen Arnaud VANGN-MECHANIC SENIOR Primary Care Provider + Encounter Details Date Type Department Care Team (Late st Contact Info) Description 06/12/2024 [facility]phone [facility] - Family Medicine [address] [place] [phone] Sveta Gomez CMA Social History Tobacco Use [...] Health Services - Women's Services [address] [place] [phone] Shira Staples MD [address] [facility], [address] [place] [address] 08/07/2024 3:30 PM EDT Appointment [facility] US Imaging [address] [place] [phone] documented as of this encounter Visit Diagnoses Not on filedocumented in this encounter Additional Health Concerns Assessment Noted Time PHQ-9 Depression Total Score: 0 05/29/19 23 11:03 AM EDT documented as of this encounter Care Teams Hand Carver Relationship Specialty Start Date End Date Sarah Queen APRN-CNP [address] [place] [address] PCP - General Internal Medicine 09/03/23 documented as of this encounter
--- OUTSIDE RECORDS SUMMARY | 2024-08-03 19:39 | XMS_ITS | Encounter Summary ---
Author Organization [facility] Address [address] [place] [address] Care Team Providers Care Market News Reporter Name Role Phone Terrence Mcintyre MD Primary Care Provider + [phone] Encounter Details Date Type Department Care Team (Late st Contact Info) Description 07/23/2024 Clinisync Result Encounter [facility] External Department Unsolicited Phil Fierro, DO [address] [place], [place] [phone] Social History Tobacco Use Types Packs/Day Years [...] Routine [facility] BCP OB [address] [place] [phone] Phil Fierro, DO [address], [place] [phone] documented as of this encounter Procedures Procedure Name Priority Date/Time Associated Diagnosis Comments US OB BPP W NON-STRESS 07/23/2024 7:52 PM EDT documented in this encounter Results * US OB BPP W NON-STRESS (07/23/2024 7:52 PM EDT) Anatomical Region Laterality Modality Other 07/23/2024 7:52 PM EDT Narrative 07/23/2024 7:55 PM EDT [address] [address] Ultrasound Report Signed Patient: NISHA FAJARDO MR#: [id number] : 1995 Acct:[id number] Age/Sex: 28 / F ADM Date: 07/23/24 Loc: [facility] 250-[address]: Phil Fierro D.O. Ordering Physician: Phil Fierro D.O. Date of Service: 07/23/24 Procedure(s): US OB BPP w non-stress Accession Number(s): [id number] cc: TERRENCE MCINTYRE ; Phil Fierro D.O. [place] [id number] Patient Name: NISHA FAJARDO MRN: [id number] date: 1995 Sex: F Assigned Patient Location: [facility] Current Patient Location: [facility] Accession/Order Number: [id number] Exam Date: 07/23/2024 19:51 Report Date: 07/23/2024 [...] Buck M.D. 07/23/2024 7:52 PM Dictation Location: [place] [address] Electronically authenticated by: [id number] Y Date: 07/23/2024 19:52 Dictated By: Neo Buck D.O. Signed By: 07/23/241954 DD/ 51 TD/TT: M48 M60 Armor Crewman: Procedure Note Radiology, Radiologist, MD Almendarez 07/24/2024 [place] [address] Ultrasound Report Signed Patient: NISHA FAJARDO LMR#: [id number] : 1995Acct:[id number] Age/Sex: 28 / FADM Date: 07/23/24 Loc: [facility] 250-[address]: Phil Fierro D.O. Ordering Physician: Phil Fierro D.O. Date of Service: 07/23/24 Procedure(s): US OB BPP w non-stress Accession Number(s): [id number] cc: TERRENCE MCINTYRE ; Phil Fierro D.O. The [place] [id number] Patient Name: NISHA FAJARDO MRN: [id number] date: 1995 Sex: F Assigned Patient Location: [facility] Current Patient Location: [facility] Accession/Order Number: [id number] Exam Date: 07/23/2024 19:51 Report Date: 07/23/2024 [...] Buck M.D. 07/23/2024 7:52 PM Dictation Location: [place] [address] Electronically authenticated by: [id number] Y Date: 9:52 Dictated By: Neo Buck D.O. Signed By:07/23/241954 DD/ 51 TD/TT: M48 M60 Armor Crewman: Phil Fierro DO [facility] IMAGING Final Result documented in this encounter Visit Diagnoses Not on filedocumented in this encounter Care Teams Market News Reporter Relationship Specialty Start Date End Date Terrence Mcintyre MD [address], [facility] [place] [address] PCP - General Family Medicine 02/11/24 documented as of this encounter
--- OUTSIDE RECORDS SUMMARY | 2024-08-03 19:39 | XMS_ITS | Clinical Summary ---
Author Organization [facility] Address [address] [place] [address] Care Team Providers Care Pulp Mixer Name Role Phone Terrence Mcintyre MD Primary Care Provider + [phone] Allergies No known active allergies Medications Vit-Fe Fumarate-FA (PNV Plus Multivitamin) 27-1 MG tabletIndication s:, unspecified gestational age Take 1 tablet by mouth Daily 30 tablet 04/23/2024 04/23/19 26 Active Vit-Fe Fumarate-FA ( Vitamins) 28-0.8 MG tabletIndication s:Second trimester Take 1 tablet by mouth Daily 30 tablet 05/11/2024 05/12/19 26 Active sotalol (Betapace) 160 MG tablet Take 160 mg by mouth in the morning and 160 mg in the evening. 06/28/2024 Active digoxin (Lanoxin) 250 MCG tab;et Take 250 mcg by mouth in the morning and 250 mcg in the evening. 06/28/2024 Active magnesium oxide (Mag-Ox) 400 MG tablet Take 400 mg by mouth in the morning and 400 mg in the evening. 06/28/2024 Active potassium chloride CR (Klor-Con) 10 MEQ ER tablet Take 50 mEq by mouth in the morning. 06/28/2024 Active Calcium Carb-Cholecalcif roslyn (Oyster Shell Calcium w/D) 500-5 MG-MCG tablet Take 1 tablet by mouth in the morning and 1 tablet in the evening. Take with meals. 06/28/2024 Active Vit-Fe Fumarate-FA ( Plus) 27-1 MG tablet Activ e omeprazole (PriLOSEC) 20 MG capsuleIndicatio ns:Gastroesophag eal Reflux Disease,Heartbur n Take 1 capsule (20 mg) by mouth in the morning. Take before meals. Do not crush or chew. 30 capsule 3 07/07/2024 08/07/19 25 Active Encounters Date Type Department Care Team Description 07/31/2024 Clinisync Result Encounter [facility] External Department Unsolicited Phil Fierro, DO 07/29/2024 2:50 PM EDT Routine [facility] [address] [place] [address] Chelsea Carson PA Third trimester ; 34 weeks gestation of 07/29/2024 Bamboo flowsheet [facility] [address] [place] [address] Chelsea Carson PA 07/28/20[address] [facility] [address] [place] [address] Ijeoma Carrera LPN 07/23/2024 Clinisync Result Encounter [facility] External Department Unsolicited Phil Fierro, DO 07/22/2024 Abstract [facility] [address] [place] [address] Phil Fierro, DO 07/20/2024 Abstract [facility] [address] [place] [address] Phil Fierro, DO 07/17/2024 Clinisync Result Encounter [facility] External Department Unsolicited Phil Fierro, DO 07/15/2024 3:40 PM EDT Routine [facility] [address] [place] [address] Brandi Baer NP Third trimester ; 32 weeks gestation of 07/15/2024 Bamboo flowsheet [facility] [address] [place] [address] Brandi Baer NP 07/08/2024 Abstract [facility] [address] [place] [address] Phil Fierro, 07/07/20[address] [facility] [address] [place] [address] Phil Fierro, 07/06/2024 Abstract [facility] [address] [place] [address] Phil Fierro, 06/30/2024 11:10 AM EDT Routine [facility] [address] [place] [address] Phil Fierro, Third trimester ; 30 weeks gestation of ; Supraventricular tachycardia of fetus affecting management of ; Polyhydramnios affecting ; Excessive growth affecting management of in third trimester, single or unspecified fetus 06/30/2024 Community Orders [place] [address] Phil Fierro, 06/30/2024 Bamboo flowsheet [facility] [address] [place] [address] Phil Fierro, 06/29/2024 Tele[address] [facility] [address] [place] [address] Annie Keith MA 06/29/20[address] Tele[address] [facility] [address] [place] [address] Annie Keith MA 06/11/2024 External Result Encounter [facility] [address] [place] [address] Phil Fierro, 06/10/2024 3:40 PM EDT Routine [facility] [address] [place] [address] Phil Fierro, Second trimester ; 27 weeks gestation of ; tachycardia affecting management of mother; Abnormality in heart rate/rhythm, antepartum condition or complication 06/10/2024 Clinisync Result Encounter [facility] External Department Unsolicited Phil Fierro, DO 06/10/2024 Bamboo flowsheet [facility] BCP OB [address] [place] [address] Sri Phil, DO 05/22/2024 Clinisync Result Encounter [facility] External Department Unsolicited Sri Phil, DO 05/11/2024 3:40 PM EDT Routine [facility] BCP OB [address] [place] [address] Chelsea Carson PA Second trimester ; 23 weeks gestation of ; Diabetes mellitus screening 05/11/2024 2:30 PM EDT Ancillary Procedure [facility] BCP OB [address] [place] [address] Screening, , for anatomic survey 05/04/2024 Clinisync Result Encounter [facility] External Department Unsolicited Chelsea Carson PA from Last 3 Months Social History Tobacco Use Types Packs/Day Years [...] - - Body Mass Index - - Plan of Treatment Upcoming Encounters Date Type Department Care Team (Late st Contact Info) Description 08/12/2024 3:40 PM EDT Routine [facility] BCP OB [address] [place] [address] Phil Fierro, DO [address] [place], [place] [address] [place], [place] [phone] Health Maintenance Due Date Last Done Comments Influenza Vaccine (Season Ended) 2024 01/11/20 21 Procedures Procedure Name Priority Date/Time Associated Diagnosis Comments US OB BPP W NON-STRESS 07/31/2024 8:55 AM EDT POCT URINALYSIS DIPSTICK Routine 07/29/2024 3:29 PM EDT Third trimester 34 weeks gestation of US OB BPP W NON-STRESS 07/23/2024 7:52 PM EDT US OB BPP W NON-STRESS 07/17/2024 6:48 AM EDT POCT URINALYSIS DIPSTICK Routine 07/15/2024 4:10 PM EDT Third trimester POCT URINALYSIS DIPSTICK Routine 06/30/2024 11:35 AM EDT Third trimester 30 weeks gestation of US OB 14+ WEEKS ANATOMY SCAN 06/11/2024 4:38 PM EDT ALL THYROID STIM HORMONE Routine 06/10/2024 5:22 PM EDT ALL THYROXINE (T4) FREE Routine 06/10/2024 5:22 PM EDT ALL CBC WITH AUTO DIFF Routine 06/10/2024 5:22 PM EDT POCT URINALYSIS DIPSTICK Routine 06/10/2024 4:08 PM EDT Second trimester GLUCOSE 1 HOUR Routine 05/22/2024 1:46 PM EDT ALL CBC WITH AUTO DIFF Routine 05/22/2024 1:46 PM EDT POCT URINALYSIS DIPSTICK Routine 05/11/2024 4:00 PM EDT Second trimester US OB 14+ WEEKS ANATOMY SCAN Routine 05/11/2024 3:42 PM EDT Screening, , for anatomic survey AFP, SERUM, OPEN SPINA BIFIDA Routine 05/04/2024 4:54 PM EST from Last 3 Months Results * US OB BPP W NON-STRESS (07/31/2024 8:55 AM EDT) Only the most recent of3 resultswithin the time period is included. Anatomical Region Laterality Modality Other 07/31/2024 8:55 AM EDT Narrative 07/31/2024 8:57 [place] [address] Ultrasound Report Signed Patient: NISHA FAJARDO MR#: [id number] : 1995 Acct:[id number] Age/Sex: 28 / F ADM Date: 07/30/24 Loc: US Attending Dr: Phil Fierro D.O. Ordering Physician: Phil Fierro D.O. Date of Service: 07/30/24 Procedure(s): US OB BPP w non-stress Accession Number(s): [id number] cc: TERRENCE MCINTYRE Corey D.O. The [place] [address] Patient Name: NISHA FAJARDO MRN: [id number] date: 1995 Sex: F Assigned Patient Location: [facility] Current Patient Location: Accession/Order Number: [id number] Exam Date: 07/31/2024 08:53 Report Date: 07/31/2024 [...] is in upper normal range. Total score: 10/09 US/US OB BPP w non-stress IMPRESSION: NO NORMAL BIOPHYSICAL PROFILE. POSSIBLE NUCHAL CORD. Impression dictated by: Hayley Roldan M.D. 07/31/2024 8:55 AM Dictation Location: [place] [address] Electronically authenticated by: [id number] Y Date: 07/31/2024 08:55 Dictated By: Hayley Roldan M.D. Signed By: 07/31/24856 DD/ 4 TD/TT: Edi Coordinator: Procedure Note Radiology, Radiologist, MD - 07/31/2024 [place] [address] Ultrasound Report Signed Patient: NISHA FAJARDO LMR#: [id number] : 1995Acct:[id number] Age/Sex: Date: 07/30/24 Loc: US Attending Dr: Phil Fierro D.O. Ordering Physician: Phil Fierro D.O. Date of Service: 07/30/24 Procedure(s): US OB BPP w non-stress Accession Number(s): [id number] cc: TERRENCE MCINTYRE Corey D.O. The [address] [address] Patient Name: NISHA FAJARDO MRN: [id number] date: 1995 Sex: F Assigned Patient Location: [facility] Current Patient Location: Accession/Order Number: [id number] Exam Date: 07/31/2024 08:53 Report Date: 07/31/2024 [...] Roldan M.D. 07/31/2024 8:55 AM Dictation Location: [place] [address] Electronically authenticated by: [id number] Y Date: 508:55 Dictated By: Hayley Roldan M.D. Signed By:07/31/24 0857 DD/ 0855 TD/TT: Edi Coordinator: [facility] Final Result * (ABNORMAL) POCT urinalysis dipstick manually resulted (07/29/2024 3:29 PM EDT) Only the most recent of5 resultswithin the time period is included. Color, UA Yellow Clarity, UA Clear Glucose, UA Negative Negative - 1999(110) ++++ mg/dL Bilirubin, UA Negative Negative - 4(70) +++ mg/dL Ketones, UA Positive Negative - 160(16) ++++ mg/dL Spec Grav, UA 1.020 1 - 1.03 Blood, UA Negative Negative - 50 Jordan/mcL pH, UA 6.5 5 - 9 Protein, UA Negative Negative - 1999(20) ++++ mg/dL Urobilinogen, UA 1.0 0.2 - 12 mg/dL Leukocytes, UA Negative Negative - 500+++ Leanne/mcL Nitrite, UA Negative Negative - Positive Urine 07/29/2024 3:29 PM EDT Chelsea DIAZ POINT OF CARE TEST ENTER/EDIT OR DERABLES Final Result * US OB 14+ weeks anatomy scan (06/11/2024 4:38 PM EDT) Only the most recent of2 resultswithin the time period is included. Anatomical Region Laterality Modality Body Ultrasound 06/11/2024 4:38 PM EDT Narrative 06/11/2024 4:38 PM EDT THIS EXAM WAS PERFORMED AT [facility] NAME: SCOTTY CAMERON : 1995 SEX: F Accession Number: [id number] ORDERING PHYSICIAN: PHIL FIERRO REFERRING PHYSICIAN: PHIL FIERRO Coding ----- --------- Procedures 69364: Ultrasound, uterus, real time with image documentation, and maternal evaluation plus detailed anatomic examination, transabdominal approach;single or first gestation 83491: Echocardiography, , cardiovascular system, real time with image documentation (2D), with or without M-mode recording Indication ----- --------- Screening for Anatomic Survey , tachycardia, Polyhydramnios History ----- --------- OB History 2. Para 1 [id number] Maternal Assessment ----- --------- Physical Exam Height [...] 3 lb 5 oz EFW by Hadlock ([id number]) Head / Face / Neck Biometry: Cephalic index 0.76 23% [employer]ola[employer] 5.8 mm CM 3.5 mm <1% Nicolaides [...] view. RVOT view. LVOT view. 3-vessel view. 1-nvtcty-dyidgom view. Right lung. Left lung. Diaphragm. Abdomen: [...] normal RVOT view normal 3-vessel view normal 9-ukpwin-ulpfvgi view normal Aortic arch view normal Ductal [...] 9.3 cm. Recommendations ----- --------- Please see [facility] documentation from today. The patient is scheduled in four to six week(s) to complete anatomic survey and echocardiogram. Admit to Labor and Delivery for further evaluation. Subsequent follow up or other follow up as clinically determined by primary OB provider unless otherwise specified by [facility]. Results forwarded to ordering provider so they can follow up with the patient as necessary. Procedure Note Radiology, Radiologist, - 06/11/2024 THIS EXAM WAS PERFORMED AT [facility] NAME: SCOTTY CAMERON : 1995 SEX: F Accession Number: [id number] ORDERING PHYSICIAN: PHIL FIERRO REFERRING PHYSICIAN: PHIL FIERRO Coding ----- --------- Procedures 33136: Ultrasound, uterus, real time with imagedocumentation, and maternal evaluation plus detailed anatomic examination, transabdominalapproach;single or first gestation 86840: Echocardiography, , cardiovascular system, real timewith image documentation (2D), with or without M-mode recording Indication ----- --------- Screening for Anatomic Survey , tachycardia, Polyhydramnios History ----- --------- OB History 2. Para 1 [id number] Maternal Assessment ----- --------- Physical Exam Height [...] 3 lb 5 oz EFW by Hadlock ([id number]) Head / Face / Neck Biometry: Cephalic index 0.76 23% [employer] 5.8 mm CM 3.5 mm <1% Nicolaides [...] 4-chamber view. RVOT view. LVOT view. 3-vessel view.4-detibx-eecnriv view. Right lung. Left lung. Diaphragm. Abdomen: [...] normal RVOT view normal 3-vessel view normal 3-lhlfpv-spnxdca view normal Aortic arch view normal Ductal [...] byprimary OB provider unless otherwise specified by M. Results forwarded to ordering provider so they can follow up with thepatient as necessary. us Phil Fierro DO [facility] OB US PROCEDURES Final Resul t * (ABNORMAL) ALL THYROXINE (T4) FREE (06/10/2024 5:22 PM EDT) FREE T4 0.67(L) 0.76 - 1.46 ng/dL TBH 06/10/2024 5:22 PM EDT 06/10/2024 5:25 PM EDT Narrative CLINIS[facility] - 06/10/2024 6:31 PM EDT us Pihl Fierro DO CLIN[facility] Final Result [facility] TB * ALL THYROID STIM HORMONE (06/10/2024 5:22 PM EDT) Pathologist [facility] THYROID STIMULATING HORMONE 1.480 0.358 - 3.740 uIU/mL TBH 06/10/2024 5:22 PM EDT 06/10/2024 5:25 PM EDT Narrative CLINISYNC - 06/10/2024 5:55 PM EDT Phil Sri DO [facility] Final Result [facility] * (ABNORMAL) ALL CBC WITH AUTO DIFF (06/10/2024 5:22 PM EDT) Only the most recent of2 resultswithin the time period is included. Pathologist [facility] TB WBC 8.9 4.0 - 11.0 10 3/uL TBH TB RBC 4.19(L) 4.20 - 5.40 10 6/uL TBH TBH HGB 12.2 12.0 - 16.0 g/dL TB TB HCT 36.1 36.0 - 48.0 % TBH TBH MCV 86.2 81.0 - 99.0 fL TBH TBH MCH 29.1 26.7 - 34.0 pg TBH TBH MCHC 33.8 29.9 - 35.2 g/dL TB TB RDW 13.6 11.0 - 15.0 % TBH TBH PLT 257 150 - 450 10 3/uL TBH TBH MPV 9.0(L) 9.5 - 13.5 fL TBH NEUTROPHILS PERCENT AUTO 72.6 43.0 - 75.0 % TBH LYMPHOCYTES PERCENT AUTO 19.5(L) 20.5 - 60.0 % TBH MONOCYTES PERCENT AUTO 6.4 1.7 - 12.0 % TBH TBH EO % 0.6(L) 0.9 - 7.0 % TBH BASOPHILS PERCENT AUTO 0.2 0.2 - 2.0 % TBH IMMATURE GRANULOCYTES PCT AUTO 0.7(H) 0.0 - 0.5 % TBH NEUTROPHILS ABSOLUTE AUTO 6.5 1.4 - 6.5 10 3/uL TBH LYMPHOCYTES ABSOLUTE AUTO 1.7 1.2 - 3.8 10 3/uL TBH MONOCYTES ABSOLUTE AUTO 0.6 0.3 - 0.8 10 3/uL TBH TBH EO # 0.1 0.0 - 0.7 10 3/uL TBH BASOPHILS ABSOLUTE AUTO 0.0 0.0 - 0.1 10 3/uL TBH IMMATURE GRANULOCYTES ABS AUTO 0.06(H) 0.00 - 0.03 10 3/uL TBH 06/10/2024 5:22 PM EDT 06/10/2024 5:25 PM EDT Narrative CLINISYNC - 06/10/2024 5:38 PM EDT us Phil Sri DO CLIN[facility] Final Result [facility] * (ABNORMAL) GLUCOSE 1 HOUR (05/22/2024 1:46 PM EDT) GLUCOSE 1 HOUR 131(H) <130 mg/dL TB 05/22/2024 1:46 PM EDT 05/22/2024 1:50 PM EDT Narrative CLINISYNC - 05/22/2024 2:46 PM EDT us Phil Sri DO LAB BLOOD ORDERABLES Final Resul t [facility] * AFP, SERUM, OPEN SPINA BIFIDA (05/04/2024 4:54 PM EST) RESULTS Report . [facility] TEST RESULTS: *Screen Negative* . TB GEST. AGE ON COLLECTION DATE 22.4 . weeks [facility] GESTAT. AGE BASED ON Ultrasound . [facility] Comment: 19.7 on 04/15/2024 Recalculations are not recommended when gestational dating by LMP and ultrasound are within 10 days. [age] [facility] RACE . TB WEIGHT 195 . lbs [facility] INSULIN DEP DIABETES No . [facility] MULTIPLE GESTATION No . [facility] AFP VALUE 66.2 . ng/mL [facility] AFP MOM 1.00 . [place] [address] . [facility] INTERPRETATION Comment . [facility] Comment: Interpretation: Screen Negative This result is screen negative for [...] Customer Services to discuss available options. The [employer] recommends amniocentesis be offered to women age 35 and older. COMMENT: Comment . [facility] Comment: Fiona White, Ph.D., [facility] Director References: Available Upon Request. Multiples Of Median Cutoffs For AFP Elevations Ramírez 2.5 Black 2.8 IDD 2.0 Twins 4.5 Abbreviation Definitions IDD - Insulin Dep Diabetes OSBR - Open Spina Bifida Risk For further inquiries contact [employer] at [phone]. This test was developed and its performance characteristics determined by [employer] [place]. It has not been cleared or approved by the Food and Drug Administration. Performed at: [facility] [address] [place] [id number] Cocoa Butter Filter Operator: Darlene Snyder [facility], Phone: [phone] 05/04/2024 4:54 PM EST 05/04/2024 4:55 PM EST Narrative CLINISYNC - 05/07/2024 12:07 AM EST N N ULTRASOUND [id number] [phone] N 1 [address] White/ Chelsea DIAZ LAB BLOOD ORDERABLES Final Resul t [facility] from Last 3 Months Insurance [employer] Care Teams Pulp Mixer Relationship Specialty Start Date End Date Terrence Mcintyre MD [address] [facility] [place] [address] PCP - General Family Medicine 02/11/24
--- OUTSIDE RECORDS SUMMARY | 2024-08-03 19:39 | XMS_ITS | Encounter Summary ---
Author Organization [facility] tem Address [facility] [id number] [address] [place] [address] Care Team Providers Care Mid Wife Name Role Phone Sarah Queen Arnaud BOARD CERTIFIED MUSIC THERAPIST-LAMP SHADE MAKER Primary Care Provider + Encounter Details Date Type Department Care Team (Late st Contact Info) Description 07/21/2024 Telephone Maternal- Medicine at [facility] [address] [facility] [place] [address] Lila Zhao, ARLIN Social History Tobacco Use [...] Health Services - Women's Services [address] [place] [phone] [place] [address] [place] [address], [address] [place] [address] 08/07/2024 3:30 PM EDT Appointment [facility] US Imaging [address] [facility] [place] [address] documented as of this encounter Visit Diagnoses Not on filedocumented in this encounter Additional Health Concerns Assessment Noted Time PHQ-9 Depression Total Score: 0 05/29/19 23 11:03 AM EDT documented as of this encounter Care Teams Mid Wife Relationship Specialty Start Date End Date Sarah Queen APRN-LAMP SHADE MAKER [address] [place] [address] PCP - General Internal Medicine 09/03/23 documented as of this encounter
--- OUTSIDE RECORDS SUMMARY | 2024-08-03 19:39 | XMS_ITS | Encounter Summary ---
Author Organization [facility] [employer] [facility] Address [id number] [address] [place] [address] Care Team Providers Care Medical Dir Name Role Phone Sarah Queen TIMBER CUTTER-TALENT SOLUTIONS MANAGER Primary Care Provider + Reason for Visit * Reason Comments Med Refill Encounter Details Date Type Department Care Team (Late st Contact Info) Description 05/15/2022 Refill [facility] Internal Medicine - Family Medicine [address] [place] [address] Deja Caal APRN-FNP [address] [place] [address] [place] [address] Social History Tobacco Use Types Packs/Day Years [...] Info) Description 08/04/2024 9:00 AM EDT Routine [facility] Services - Women's Services [address] [place] [address] [place] [address] [place] [address], [address] [place] [address] 08/07/2024 3:30 PM EDT Appointment [facility] US Imaging [address] [facility] [place] [address] documented as of this encounter Visit Diagnoses Not on filedocumented in this encounter Care Teams Medical Dir Relationship Specialty Start Date End Date Sarah Queen APRN-TALENT SOLUTIONS MANAGER [address] [place] [address] PCP - General Internal Medicine 09/03/23 documented as of this encounter
--- OUTSIDE RECORDS SUMMARY | 2024-08-03 19:39 | XMS_ITS | Encounter Summary ---
Author Organization [facility] tem Address [facility][id number] [address] [place] [address] Care Team Providers Care Pyridine Recovery Operator Name Role Phone Sarah Queen Arnaud PORCELAIN ENAMEL REPAIRER-DOPE HEATER Primary Care Provider + Encounter Details Date Type Department Care Team (Late st Contact Info) Description 07/06/2024 Documentation Maternal- Medicine at [facility] [address] [place] [phone] Hayley Conner RDMS Social History Tobacco Use [...] Health Services - Women's Services [address] [place] [address] Shira Staples MD [address] [facility], [address] [place] [address] 08/07/2024 3:30 PM EDT Appointment [facility] US Imaging [address] [facility] [place] [address] documented as of this encounter Visit Diagnoses Not on filedocumented in this encounter Additional Health Concerns Assessment Noted Time PHQ-9 Depression Total Score: 0 05/29/19 23 11:03 AM EDT documented as of this encounter Care Teams Pyridine Recovery Operator Relationship Specialty Start Date End Date Sarah Queen, PORCELAIN ENAMEL REPAIRER-DOPE HEATER [address] [place] [address] PCP - General Internal Medicine 09/03/23 documented as of this encounter
--- OUTSIDE RECORDS SUMMARY | 2024-08-03 19:39 | XMS_ITS | Encounter Summary ---
Author Organization [facility] Address [address] [place] [address] Care Team Providers Care Employee Operations Examiner Name Role Phone Terrence Mcintyre MD Primary Care Provider + [phone] Encounter Details Date Type Department Care Team (Late st Contact Info) Description 03/26/2024 Abstract [facility] OB [address] [facility] [place] [address] [address] Fierro [address] [place] [address] Social History Tobacco Use Types Packs/Day [...] Description 08/12/2024 3:40 PM EDT Routine [facility] [address] [place] [address] Ronald Fierro, DO [address] [place] [address] documented as of this encounter Visit Diagnoses Not on filedocumented in this encounter Care Teams Employee Operations Examiner Relationship Specialty Start Date End Date Terrence Mcintyre MD [address] [place] [address] PCP - General Family Medicine 02/11/24 documented as of this encounter
--- OUTSIDE RECORDS SUMMARY | 2024-08-03 19:39 | XMS_ITS | Encounter Summary ---
Author Organization [facility] Address [address] [place] [address] Care Team Providers Care Recorder Helper Gravity Prospecting Name Role Phone Terrence Mcintyre MD Primary Care Provider + [phone] Encounter Details Date Type Department Care Team (Late st Contact Info) Description 07/22/2024 Abstract [facility] OB [address] [facility] [place] [address] [address] Fierro [address] [place] [address] Social History Tobacco Use Types Packs/Day [...] Description 08/12/2024 3:40 PM EDT Routine [facility] [address] [place] [address] Ronald Fierro, DO [address] [place] [address] documented as of this encounter Visit Diagnoses Not on filedocumented in this encounter Care Teams Recorder Helper Gravity Prospecting Relationship Specialty Start Date End Date Terrence Mcintyre MD [address] [place] [address] PCP - General Family Medicine 02/11/24 documented as of this encounter
--- OUTSIDE RECORDS SUMMARY | 2024-08-03 19:40 | XMS_ITS | Encounter Summary ---
Author Organization [facility] Sys tem Address [id number] [address] [place] [address] Care Team Providers Care Senior Production Manager Name Role Phone Sarah Queen CANS VACUUM TESTER-COLOR SEPARATION PHOTOGRAPHER Primary Care Provider + Encounter Details Date Type Department Care Team (Late st Contact Info) Description 08/03/2024 Orders Only [facility] Internal Medicine - Family Medicine [address] [place] [address] Ref Prov, [place] [address] Social History Tobacco Use Types Packs/Day Years [...] Health Services - Women's Services [address] [place] [address] Shira Staples MD [address] [facility], [address] [place] [address] 08/07/2024 3:30 PM EDT Appointment [facility] US Imaging [address] [place] [address] documented as of this encounter Procedures Procedure Name Priority Date/Time Associated Diagnosis Comments US PELVIC WITH TRANSVAGINAL Routine 07/09/2024 1:19 PM EDT documented in this encounter Results * Ultrasound pelvic with transvaginal (07/09/2024 1:19 PM EDT) Anatomical Region Laterality Modality Body, Pelvis Ultrasound us Not In System Ref Prov IMG US ORDERABLES Final R esult documented in this encounter Visit Diagnoses Not on filedocumented in this encounter Additional Health Concerns Assessment Noted Time PHQ-9 Depression Total Score: 0 05/29/19 23 11:03 AM EDT documented as of this encounter Care Teams Senior Production Manager Relationship Specialty Start Date End Date Sarah Queen APRN-COLOR SEPARATION PHOTOGRAPHER [address] [place] [address] PCP - General Internal Medicine 09/03/23 documented as of this encounter
--- OUTSIDE RECORDS SUMMARY | 2024-08-03 19:40 | XMS_ITS | Encounter Summary ---
Author Organization [facility] tem Address [id number] [address] [place] [address] Care Team Providers Care Secondary Special Education Teacher Name Role Phone Sarah Queen Aranud VANGN-ORGANIC CHEMISTRY TEACHER Primary Care Provider + Encounter Details Date Type Department Care Team (Late st Contact Info) Description 07/28/2024 Orders Only [facility]- [facility] at [facility] [address] [place] [address] Tammie Mckeon MD [address] [facility] 1st Floor [place], [place] [id number] Social History Tobacco Use Types Packs/Day Years [...] Health Services - Women's Services [address] [place] [phone] Shira Staples MD [address] [place] [address], [address] [place] [address] 08/07/2024 3:30 PM EDT Appointment [facility] US Imaging [address] [place] [address] documented as of this encounter Visit Diagnoses Not on filedocumented in this encounter Additional Health Concerns Assessment Noted Time PHQ-9 Depression Total Score: 0 05/29/19 23 11:03 AM EDT documented as of this encounter Care Teams Secondary Special Education Teacher Relationship Specialty Start Date End Date Sarah Queen APRN-ORGANIC CHEMISTRY TEACHER [address] [place] [address] PCP - General Internal Medicine 09/03/23 documented as of this encounter
--- OUTSIDE RECORDS SUMMARY | 2024-08-03 19:40 | XMS_ITS | Encounter Summary ---
Author Organization [facility] Address [address] [place] [address] Care Team Providers Care Car Blocker Name Role Phone Terrence Mcintyre MD Primary Care Provider + [phone] Encounter Details Date Type Department Care Team (Late st Contact Info) Description 04/30/2024 Orders Only [facility] OB [address] [place] [phone] Annie Keith MA [address] [place] [address] [place] [address] Social History Tobacco Use Types Packs/Day Years [...] PM EDT Routine [facility] OB [address] [facility] [place] [address] Ronald Fierro DO [address] [facility] [address] Ralph [place], [facility]11 documented as of this [...] on filedocumented in this encounter Care Teams Car Blocker Relationship Specialty Start Date End Date Terrence Mcintyre MD [address] [facility], [place] [address] PCP - General Family Medicine 02/11/24 documented as of this encounter
--- OUTSIDE RECORDS SUMMARY | 2024-08-03 19:40 | XMS_ITS | Encounter Summary ---
Author Organization [facility] Address [address] [place] [address] Care Team Providers Care Patient Accounting Representative Name Role Phone Terrence Mcintyre MD Primary Care Provider + [phone] Encounter Details Date Type Department Care Team (Late st Contact Info) Description 06/11/2024 External Result Encounter [facility] OB [address] [place] [address] Phil Fierro [facility] [address] [place], [facility] Social History Tobacco Use Types Packs/Day Years [...] Description 08/12/2024 3:40 PM EDT Routine [facility] OB [facility] [place] [address] Phil Fierro DO [facility] [address] [place], [place] [id number] documented as of this encounter Procedures Procedure Name Priority Date/Time Associated Diagnosis Comments US OB 14+ WEEKS ANATOMY SCAN 06/11/2024 4:38 PM EDT documented in this encounter Results * US OB 14+ weeks anatomy scan (06/11/2024 4:38 PM EDT) Anatomical Region Laterality Modality Body Ultrasound 06/11/2024 4:38 PM EDT Narrative 06/11/2024 4:38 PM EDT THIS EXAM WAS PERFORMED AT [facility] NAME: SCOTTY CAMERON : 1995 SEX: F Accession Number: [id number] ORDERING PHYSICIAN: PHIL FIERRO REFERRING PHYSICIAN: PHIL FIERRO Coding ----- --------- Procedures 98141: Ultrasound, uterus, real time with image documentation, and maternal evaluation plus detailed anatomic examination, transabdominal approach;single or first gestation 89634: Echocardiography, , cardiovascular system, real time with image documentation (2D), with or without M-mode recording Indication ----- --------- Screening for Anatomic Survey , tachycardia, Polyhydramnios History ----- --------- OB History 2. Para 1 [id number] Maternal Assessment ----- --------- Physical Exam Height [...] 3 lb 5 oz EFW by Hadlock ([id number]) Head / Face / Neck Biometry: Cephalic index 0.76 23% Nicolaides Produce Inspector 5.8 mm CM 3.5 mm <1% Nicolaides [...] view. RVOT view. LVOT view. 3-vessel view. 3-bbhikc-jzxaqmt view. Right lung. Left lung. Diaphragm. Abdomen: [...] normal RVOT view normal 3-vessel view normal 9-tnuyyz-rfceugf view normal Aortic arch view normal Ductal [...] 9.3 cm. Recommendations ----- --------- Please see [facility] documentation from today. The patient is scheduled in four to six week(s) to complete anatomic survey and echocardiogram. Admit to Labor and Delivery for further evaluation. Subsequent follow up or other follow up as clinically determined by primary OB provider unless otherwise specified by [facility]. Results forwarded to ordering provider so they can follow up with the patient as necessary. Procedure Note Radiology, Radiologist, - 06/11/2024 THIS EXAM WAS PERFORMED AT [facility] NAME: SCOTTY CAMERON : 1995 SEX: F Accession Number: [id number] ORDERING PHYSICIAN: PHIL FIERRO REFERRING PHYSICIAN: PHIL FIERRO Coding ----- --------- Procedures [id number]: Ultrasound, uterus, real time with imagedocumentation, and maternal evaluation plus detailed anatomic examination, transabdominalapproach;single or first gestation 86210: Echocardiography, , cardiovascular system, real timewith image documentation (2D), with or without M-mode recording Indication ----- --------- Screening for Anatomic Survey , tachycardia, Polyhydramnios History ----- --------- OB History 2. Para 1 [id number] Maternal Assessment ----- --------- Physical Exam Height 157 cm, 5 ft 2 in. Weight 93 kg, 205 lb. BMI 37.50kg/m??? Method ----- --------- Transabdominal ultrasound examination. View: Suboptimal view: limited byfetal position ----- --------- Ramírez . Number of fetuses: 1 Dating ----- --------- LMP on: 12/07/2023 GA by LMP 26 w + 5 d [id number] by LMP: 09/12/2024 Previous Ultrasound on: 02/11/2024 [...] 3 lb 5 oz EFW by Hadlock ([id number]) Head / Face / Neck Biometry: Cephalic index 0.76 23% Nicolaides Produce Inspector 5.8 mm CM 3.5 mm <1% Nicolaides [...] 4-chamber view. RVOT view. LVOT view. 3-vessel view.7-pwqdqe-mwmghob view. Right lung. Left lung. Diaphragm. Abdomen: [...] normal RVOT view normal 3-vessel view normal 2-belklj-knzejtd view normal Aortic arch view normal Ductal [...] on filedocumented in this encounter Care Teams Patient Accounting Representative Relationship Specialty Start Date End Date Terrence Mcintyre MD [address] [facility] [place] [address] PCP - General Family Medicine 02/11/24 documented as of this encounter
--- OUTSIDE RECORDS SUMMARY | 2024-08-03 19:40 | XMS_ITS | Encounter Summary ---
Author Organization [employer] tem Address [id number] [address] [place] [address] Care Team Providers Care Nut Orchardist Name Role Phone Sarah Queen Arnaud CANT HOOKER-MOLD MAKER APPRENTICE Primary Care Provider + Encounter Details Date Type Department Care Team (Late st Contact Info) Description 07/28/2024 Telephone [facility] Services - Women's Services [address] [place] [phone] Leidy Gonzalez RN Social History Tobacco Use [...] Description 08/04/2024 9:00 AM EDT Routine [facility] Services - Women's Services [address] [place] [address] Shira Staples MD [address] [place] [address], [address] [place] [address] 08/07/2024 3:30 PM EDT Appointment [facility] US Imaging [address] [place] [address] documented as of this encounter Visit Diagnoses Not on filedocumented in this encounter Additional Health Concerns Assessment Noted Time PHQ-9 Depression Total Score: 0 05/29/19 23 11:03 AM EDT documented as of this encounter Care Teams Nut Orchardist Relationship Specialty Start Date End Date Sarah Queen APRN-MOLD MAKER APPRENTICE [address] [place] [address] PCP - General Internal Medicine 09/03/23 documented as of this encounter
--- OUTSIDE RECORDS SUMMARY | 2024-08-03 19:40 | XMS_ITS | Encounter Summary ---
Author Organization [employer] s tem Address [id number] [address] [place] [address] Care Team Providers Care Administrator Of Home Health Name Role Phone Sarah Queen SUPPLY PERSON-SPRAY MAKER Primary Care Provider + Encounter Details Date Type Department Care Team (Latest Contact Info) Description 08/03/2024 Travel Social History Tobacco Use Types Packs/Day [...] Health Services - Women's Services [address] [place] [phone] Shira Staples MD [address] [facility], [address] [place] [address] 08/07/2024 3:30 PM EDT Appointment [facility] US Imaging [address] [place] [address] documented as of this encounter Visit Diagnoses Not on filedocumented in this encounter Additional Health Concerns Assessment Noted Time PHQ-9 Depression Total Score: 0 05/29/19 23 11:03 AM EDT documented as of this encounter Care Teams Administrator Of Home Health Relationship Specialty Start Date End Date Sarah Queen, ESCOBAR-SPRAY MAKER [address] [place] [address] PCP - General Internal Medicine 09/03/23 documented as of this encounter
--- OUTSIDE RECORDS SUMMARY | 2024-08-03 19:40 | XMS_ITS | Encounter Summary ---
Author Organization [facility] tem Address [id number] [address] [place] [address] Care Team Providers Care Adult And Pediatric Neurologist Name Role Phone Sarah Queen APRN-DUST MOP MAKER Primary Care Provider + Reason for Referral [...] or unspecified fetus Polyhydramnios affecting Procedures [facility] with or without consult Berto Lowry MD [address] [facility], [address] [place] [address] Phone: tel: fax: Maternal- Medicine at [facility] [address] [place] [address] Phone: tel: fax: Referral ID Status Reason Start Date Expiration Date V isits Requested Visits Authorized [id number] Pending Review 07/28/2024 07/28/2025 1 1 Encounter Details Date Type Department Care Team (Late st Contact Info) Description 07/28/2024 Orders Only Maternal- Medicine at [facility] [address] [place] [address] Chelsea Segura LPN Gestational diabetes [...] Health Services - Women's Services [address] [place] [address] Shira Staples MD [facility], [address] [place] [address] 08/07/2024 3:30 PM EDT Appointment [facility] US Imaging [address] [place] [address] Scheduled Orders Name Type Priority Associated Diagnoses Orde r Schedule [facility] with or without consult Imaging Routine [...] trimester, single or unspecified fetus Polyhydramnios affecting Supraventricular tachycardia of fetus affecting [...] documented as of this encounter Care Teams Adult And Pediatric Neurologist Relationship Specialty Start Date End Date Sarah Queen APRN-DUST MOP MAKER [address] [place] [address] PCP - General Internal Medicine 09/03/23 documented as of this encounter
--- OUTSIDE RECORDS SUMMARY | 2024-08-03 19:40 | XMS_ITS | Clinical Summary ---
Author Organization MONOQIs tem Address [id number] [address] [place] [address] Care Team Providers Care Search Planner Name Role Phone Sarah Queen Arnaud CODY-DELIVERY CONSULTANT Primary Care Provider + Allergies No known active allergies Medications ondansetron (ZOFRAN) 4 mg tablet Take 1 tablet (4 mg total) by mouth every 8 (eight) hours as needed for nausea or vomiting. 20 tablet 05/29/19 23 Active Additional Information Patient not taking.Reported on 07/24/2024 [id number] c acid ( 19) 29 mg iron- [...] Consult: []Palliative Care Consult: []SGM: []Life Connection: [][place]: [] MRI: []Nationwide: []UofM: []UH: [x]ANTOINETTE CHS: [...] Date Gestational diabetes mellitus (GDM) in third [facility] 07/17/2024 Intrauterine 06/11/2024 Overview (07/10/2024): First trimester Cell free DNA: low risk per patient Carrier screening 28 week labs CBC, HIV, Syphilis completed: yes Rh status: positive Third trimester Tdap: will do with regular OBGYN GBS at 36 weeks Mode of delivery: testing: Saturday/ NST/ [facility]VP at [facility] Supraventricular tachycardia of fetus affecting management of [...] Encounters Date Type Department Care Team Description 08/03/2024 [facility] [address] [place] [address] Ref Prov, Not In System 08/03/2024 Travel 07/31/2024 Orders Only [facility] Internal Medicine - Family Medicine [address] [place] [address] Ref Prov, Not In System 07/28/2024 Orders Only Maternal- Medicine at [facility] [address] [place] [address] Tammie Mckeon MD 07/28/2024 [facility] [address] [place] [address] Leidy Gonzalez RN 07/28/2024 Orders Only Maternal- Medicine at [facility] [address] [place] [address] Chelsea Segura, MIKIE Gestational diabetes mellitus (GDM) in third trimester, gestational diabetes method of control unspecified (Primary Dx); Supraventricular tachycardia of fetus affecting management of ; Excessive growth affecting management of in second trimester, single or unspecified fetus; Polyhydramnios affecting 07/24/2024 8:30 AM EDT [facility] [address] [place] [address] Margoth Tatum MD GA: 34w0d 07/24/2024 Travel 07/22/2024 Orders Only [facility] Internal Medicine - Family Medicine [address] [place] [address] Ref Prov, Not In System 07/21/2024 Telephone Maternal- Medicine at [facility] [address] [place] [address] Lila Zhao RN 07/17/2024 4:34 PM EDT - 07/17/2024 11:59 PM EDT Hospital Encounter [facility] - Cardiovascular [address] [place] [address] Supraventricular tachycardia of fetus affecting management of ; Intrauterine ; Polyhydramnios affecting ; Excessive growth affecting management of in second trimester, single or unspecified fetus Discharge Disposition: Home 07/17/2024 2:30 PM EDT Office Visit Maternal- Medicine at [facility] [address] [place] [phone] Silvestre Suárez MD 33 weeks gestation of (Primary Dx); Gestational diabetes mellitus (GDM) in third trimester, gestational diabetes method of control unspecified; Supraventricular tachycardia of fetus affecting management of ; Excessive growth affecting management of in second trimester, single or unspecified fetus 07/17/2024 12:47 PM EDT - 07/17/2024 4:33 PM EDT Hospital Encounter [facility] Imaging [address] [place] [address] Supraventricular tachycardia of fetus affecting management of ; Polyhydramnios affecting Discharge Disposition: Home 07/15/2024 Travel 07/10/2024 10:00 AM EDT Initial [facility] Services - Women's Services [address] [place] [address] Valorie Fenton MD GA: 32w0d 07/10/2024 Travel 07/06/2024 1:30 PM EDT Support Visit Maternal- Medicine at [facility] [address] [place] [address] Silvestre Suárez MD Frey, Angela M, RN [address]dalia [address] Diet controlled gestational diabetes mellitus (GDM) in third trimester 07/06/2024 Remote Patient Monitoring Maternal- Medicine at [place] [address] [place] [address] Shahrzad Rojas, MARKETING [facility] Polyhydramnios affecting [O40.9XX0] (Primary Dx) 07/06/2024 Orders Only [facility]aternal- Medicine at [facility] [address] [place] [address] Holly Sheehan, ARLIN Diet controlled gestational diabetes mellitus (GDM) in third trimester 07/06/2024 Documentation Maternal- Medicine at [facility] [address] [place] [address] Hayley Conner, SAHIL 07/04/2024 Travel 06/29/2024 Documentation Maternal- Medicine at [facility] [address] [place] [address] Hayley Conner, KATEUT 06/29/2024 Orders Only [facility] Pediatric Cardiology [address] [place] [address] Aidan Rivera MD Supraventricular tachycardia of fetus affecting management of (Primary Dx); Intrauterine ; Polyhydramnios affecting ; Excessive growth affecting management of in second trimester, single or unspecified fetus 06/29/2024 Telephone Maternal- Medicine at [facility] [address] [place] [address] Mendy North, ARLIN 06/26/2024 Orders Only [facility] - Labor [address] [facility] [place] [address] Silvestre Suárez MD Diet controlled gestational diabetes mellitus (GDM) in third trimester (Primary Dx) 06/26/2024 Documentation Maternal- Medicine at [facility] [address] [place] [address] Anahi Ragsdale RN 06/26/2024 Orders Only Maternal- Medicine at [facility] [address] [place] [address] Anahi Ragsdale RN Diet controlled gestational diabetes mellitus (GDM) in third trimester (Primary Dx) 06/24/2024 8:30 AM EDT - 06/24/2024 11:59 PM EDT Hospital Encounter [facility] Imaging [address] [place] [address] Discharge Disposition: Home 06/23/2024 8:57 AM EDT - 06/23/2024 11:59 PM EDT Hospital Encounter [facility] Imaging [address] [place] [address] Discharge Disposition: Home 06/22/2024 8:43 AM EDT - 06/22/2024 11:59 PM EDT Hospital Encounter [facility] [address] [facility] [place] [place] [address] Discharge Disposition: Home 06/22/2024 [facility]phone [facility] [address] [place] [address] Luther Buchanan, service captain Problem 06/21/2024 9:49 AM EDT - 06/21/2024 11:59 PM EDT Hospital Encounter [facility] Imaging [address] [place] [address] Discharge Disposition: Home 06/21/2024 Telephone [facility] [address] [place] [address] Bhavani Chavez patient update 06/20/2024 9:11 AM EDT - 06/20/2024 11:59 PM EDT Hospital Encounter [facility] [address] [place] [address] Discharge Disposition: Home 06/19/2024 8:08 AM EDT - 06/19/2024 11:59 PM EDT Hospital Encounter [facility] [address] [place] [address] Discharge Disposition: Home 06/18/2024 9:59 AM EDT - 06/18/2024 11:59 PM EDT Hospital Encounter [facility] [address] [place] [address] Discharge Disposition: Home 06/17/2024 9:50 AM EDT - 06/17/2024 11:59 PM EDT Hospital Encounter [facility] [address] [place] [address] Discharge Disposition: Home 06/16/2024 8:09 AM EDT - 06/16/2024 11:59 PM EDT Hospital Encounter [facility] Imaging [address] [place] [address] Discharge Disposition: Home 06/16/2024 Travel 06/15/2024 8:01 AM EDT - 06/15/2024 11:59 PM EDT Hospital Encounter [facility] [address] [place] [address] Discharge Disposition: Home 06/12/2024 Telephone [facility] Internal Medicine - Family Medicine [address] [place] [address] Patricia Sveta, MARY 06/12/2024 Orders Only Maternal- Medicine at [facility] [address] [place] [address] Veda Bonilla, RN Supraventricular tachycardia of fetus affecting management of (Primary Dx); Polyhydramnios affecting 06/11/2024 2:47 PM EDT - 06/28/2024 11:09 AM EDT Hospital Encounter [facility] - Labor [address] [place] [address] Fuentes Stauffer MD Excessive growth affecting management of in second trimester, single or unspecified fetus (Primary Dx); Polyhydramnios affecting ; Supraventricular tachycardia of fetus affecting management of ; Intrauterine Discharge Disposition: Home 06/11/2024 2:30 PM EDT Office Visit Maternal- Medicine at [facility] [address] [place] [address] Silvestre Suárez MD 27 weeks gestation of (Primary Dx); Supraventricular tachycardia of fetus affecting management of ; Polyhydramnios affecting ; Excessive growth affecting management of in second trimester, single or unspecified fetus 06/11/2024 12:46 PM EDT - 06/11/2024 2:46 PM EDT Hospital Encounter [facility] [address] [place] [address] Screening, , for anatomic survey Discharge Disposition: Home 06/11/2024 Travel 06/11/2024 Orders Only [facility]- Medicine at [facility] [address] [place] [address] Ref Prov, Not In System 06/11/2024 Abstract Maternal- Medicine at [facility] [address] [place] [address] External, Scanning Provider from Last 3 Months [...] Health Services - Women's Services [address] [place] [address] Shira Staples MD [address] [place] [address], [address] [address] 08/07/2024 3:30 PM EDT Appointment [facility] [address] [place] [address] Health Maintenance Due Date Last Done Comments [...] WITH TRANSVAGINAL Routine 07/30/2024 9:10 AM EDT ECG 12-LEAD Routine 07/17/2024 4:43 PM EDT Supraventricular tachycardia of fetus affecting management of Intrauterine Polyhydramnios affecting Excessive growth affecting management of in second trimester, single or unspecified fetus US [facility] OB FOLLOW-UP, 1 FETUS Routine 07/17/2024 2:06 PM EDT Supraventricular tachycardia of fetus affecting management of Polyhydramnios affecting US PELVIC WITH TRANSVAGINAL Routine 07/09/2024 1:19 PM EDT GLUCOSE RANDOM OR FASTING Routine 07/06/2024 Diet [...] BEDSIDE GLUCOSE Routine 06/21/2024 2:45 PM EDT MF BIOPHYSICAL PROFILE WO NST Routine 06/21/2024 10:47 [...] BEDSIDE GLUCOSE Routine 06/18/2024 2:30 PM EDT MFM BIOPHYSICAL PROFILE WO NST Routine 06/18/2024 [...] GLUCOSE Routine 06/16/2024 12:02 PM EDT US M LMTD OB, 1 OR MORE FETUS Routine [...] EDT MAGNESIUM Routine 06/15/2024 10:05 AM EDT MFM LMTD OB, 1 OR [...] EDT from Last 3 Months Results * Ultrasound pelvic with transvaginal (07/30/2024 9:10 AM EDT) Only the most recent of3 resultswithin the time period is included. Anatomical Region Laterality Modality Body, Pelvis Ultrasound us Not In System Ref Prov IMG US ORDERABLES Final R esult * ECG 12 lead (07/17/2024 4:43 PM EDT) Only the most recent of24 resultswithin the time period is included. 07/17/2024 4:43 PM EDT Narrative TRACEMASTERVUE - 07/26/2024 9:04 AM EDT us Aidan Rivera MD ECG ORDERABLES Edited Result - Final TRACEMASTERVUE * US [facility] OB FOLLOW-UP, 1 FETUS (07/17/2024 2:06 PM EDT) Only the most recent of12 resultswithin the time period is included. Anatomical Region Laterality Modality OB-SUPERVISOR BROADLOOM Ultrasound 07/17/2024 1:11 PM EDT Narrative 07/17/2024 3:31 PM EDT NAME: SCOTTY CAMERON : 1995 SEX: F Accession Number: [id number] ORDERING PHYSICIAN: SILVESTRE SUÁREZ REFERRING PHYSICIAN: PHIL FIERRO Coding ----- --------- Procedures [id number]: Follow-up Ultrasound, per fetus [address]: Echocardiography, , cardiovascular system, real time with image documentation (2D), with or without M-mode recording; follow-up or repeat study Indication ----- --------- Screening for follow-up survey, Persistent irregular rhythm, Screening for hydrops, Obesity in , Supervision of high risk . History ----- --------- OB History 2. Para 1 [id number] Maternal Assessment ----- --------- Physical Exam Height [...] EFW (oz) 13 oz EFW by: Hadlock (ACH-OF-FZ-FL) Extended Tibia 58.8 mm 34w 2d 89% Samuel Anode Machine Operator 6.1 mm Head / Face / Neck [...] Thorax RVOT view. LVOT view. 3-vessel view. 0-rzdxfz-qfysxqm view. Right lung. Left lung. Abdomen Abdom. [...] view documented previously 3-vessel view documented previously 5-mmupwh-czsufyk view documented previously Aortic arch view documented [...] CAMERON : 1995 SEX: F Accession Number: [id number] ORDERING PHYSICIAN: SILVESTRE SUÁREZ REFERRING PHYSICIAN: PHIL FIERRO Coding ----- --------- Procedures [id number]: Follow-up Ultrasound, per fetus [address]: Echocardiography, , cardiovascular system, real timewith image documentation (2D), with or without M-mode recording; follow-up or repeat study Indication ----- --------- Screening for follow-up survey, Persistent irregular rhythm, Screening forhydrops, Obesity in , Supervision of high risk . History ----- --------- OB History 2. Para 1 [id number] Maternal Assessment ----- --------- Physical Exam Height [...] EFW (oz) 13 oz EFW by: Hadlock (HYU-YV-TR-FL) Extended Tibia 58.8 mm 34w 2d 89% Samuel Anode Machine Operator 6.1 mm Head / Face / Neck [...] Thorax RVOT view. LVOT view. 3-vessel view. 7-gungve-uleqpatsrku. Right lung. Left lung. Abdomen Abdom. wall. [...] view documented previously 3-vessel view documented previously 4-ngoeze-ehqizzu view documented previously Aortic arch view documented [...] specified by MFM. us Silvestre Suárez MD [facility] US ORDERABLES Final Re sult * Glucose random or fasting- POCT (07/06/2024) External Glucose Fasting Or Random (Fbs) 91 MANUALLY TRANSCRIBED RESULTS Blood Venous blood / Unknown 07/06/2024 Michelle Valencia PA-C LAB BLOOD ORDERABLES Final Result MANUALLY TRANSCRIBED RESULTS * (ABNORMAL) Bedside Glucose *Place/Obtain serum glucose if >500 per glucometer. (06/28/2024 10:10AM EDT) Only the most recent of64 resultswithin the time period is included. Bedside Glucose (POC) 124(H) 65 - 99 mg/dL 06/28/2024 10:13 AM EDT [facility] arterial/capilla ry 06/28/2024 10:10 AM EDT 06/28/2024 10:13 AM EDT us Fuentes Stauffer MD POINT OF CARE TEST ORDERABLES Final Result [facility] [address] [place] [address], [place] * (ABNORMAL) Comprehensive metabolic panel (06/28/2024 7:57 AM EDT) Only the most recent of14 resultswithin the time period is included. BILIRUBIN,TOTAL 0.4 0.3 - 1.2 mg/dL 06/28/2024 8:57 AM [facility] CALCIUM 9.0 8.5 - 10.5 mg/dL 06/28/2024 8:57 AM [facility] CARBON DIOXIDE 21(L) 22 - 32 mmol/L 06/28/2024 8:57 AM [facility] CHLORIDE 106 98 - 109 mmol/L 06/28/2024 8:57 AM [facility] CREATININE 0.35(L) 0.40 - 1.00 mg/dL 06/28/2024 8:57 AM [facility] Comment:METHOD TRACEABLE TO [facility] STANDARD GLUCOSE 94 65 - 99 mg/dL 06/28/2024 8:57 AM [facility] ALKALINE PHOSPHATASE 74 39 - 130 U/L 06/28/2024 8:57 AM [facility] POTASSIUM 3.6 3.5 - 5.0 mmol/L 06/28/2024 8:57 AM [facility] TOTAL PROTEIN 5.7(L) 6.0 - 8.0 g/dL 06/28/2024 8:57 AM [facility] SODIUM 139 134 - 146 mmol/L 06/28/2024 8:57 AM [facility] AST 13 <=41 U/L 06/28/2024 8:57 AM [facility] ALT 8 <=31 U/L 06/28/2024 8:57 AM [facility] BLOOD UREA NITROGEN 6 5 - 23 mg/dL 06/28/2024 8:57 AM [facility] ANION GAP 12 5 - 15 mmol/L 06/28/2024 8:57 AM [facility] ALBUMIN 3.3 3.2 - 5.3 g/dL 06/28/2024 8:57 AM [facility] EGFR Non-Race Dependent >90 >=60 ml/min/1.7 3sq.m 06/28/2024 8:57 AM [facility] Comment: Reported eGFR is based on the CKD-EPI 2020 equation that does not use a race coefficient. Blood Venous blood / Unknown 06/28/2024 7:57 AM EDT 06/28/2024 7:57 AM EDT Fuentes Stauffer MD LAB BLOOD ORDERABLES Final Res ult Performing Organization Address [facility] Co de Phone Number [facility] [address] [place] [address], [place] [phone] * (ABNORMAL) Magnesium (06/27/2024 6:48 AM EDT) Only the most recent of29 resultswithin the time period is included. Magnesium 1.5(L) 1.8 - 2.6 mg/dL 06/27/2024 7:41 AM EDT [facility] PLASMA 06/27/2024 6:48 AM EDT 06/27/2024 6:49 AM EDT Aidan Rivera MD LAB BLOOD ORDERABLES F inal Result Performing Organization Address [facility] Co de Phone Number [facility] [address] [facility] [address], [address] [place] [address] * Limited Echo Follow Up (06/24/2024 2:46 [...] of18 resultswithin the time period is included. [facility] Potassium, Bld 3.7 3.5 - 5.0 mmol/L 06/24/2024 9:33 AM EDT [facility] PLASMA 06/24/2024 8:21 AM EDT 06/24/2024 8:22 AM EDT us Jovani Stubbs MD LAB BLOOD ORDERABLES Final R esult [facility] [address] [place] [address] * Digoxin level (06/24/2024 5:32 AM EDT) Only the most recent of10 resultswithin the time period is included. [facility] Digoxin Lvl 1.3 0.8 - 2.0 ng/mL 06/24/2024 6:46 AM EDT [facility] PLASMA 06/24/2024 5:32 AM EDT 06/24/2024 5:33 AM EDT us Cathleen Perez MD LAB BLOOD ORDERABLES Final Resul t [facility] [address] [facility] [address], [address] [place] [address] * Type and screen(includes indirect radha) (06/24/2024 12:00 AM EDT) Only the most recent of2 resultswithin the time period is included. ABO O 06/24/2024 12:57 AM EDT [facility] RH Positive 06/24/2024 12:57 AM EDT [facility] Antibody Screen Negative 06/24/2024 12:57 AM EDT [facility] 06/24/2024 12:0 0 AM EDT us Estelle Avila DO BLOOD BANK TEST ORDERABLES Edited Result - Final Performing Organization Address [facility]/ZIP Co de Phone Number [facility] [address] [place] [address], [place] * Ionized magnesium (06/22/2024 2:17 PM EDT) Magnesium, ionized 0.45 0.45 - 0.74 mmol/L 06/22/2024 2:35 PM EDT [facility] Comment:NEW REFERENCE RANGE PLASMA 06/22/2024 2:17 PM EDT 06/22/2024 2:18 PM EDT us Estefani Olea MD LAB BLOOD ORDERABLES Final Res ult [facility] [address] [facility] [address], [address] [place] [address] * Limited Echo Follow Up (06/22/2024 1:15 [...] its performance characteristics determined by [facility] in a manner consistent with CLIA requirements. This test has not been cleared or approved by the U.S. Food and Drug Administration. Test Performed by: [facility] [employer] - [address] [address] Vamp Seamer: Mino Cain Ph.D.; CLIA# [id number] MISCELLANEOUS 06/22/2024 5:4 9 AM EDT 06/22/2024 [...] - 146 mmol/L 06/14/2024 6:51 AM EDT [facility] Potassium, Bld 3.8 3.5 - 5.0 mmol/L 06/14/2024 6:51 AM EDT [facility] Chloride 106 98 - 109 mmol/L 06/14/2024 6:51 AM EDT [facility] CO2 24 22 - 32 mmol/L 06/14/2024 6:51 AM EDT [facility] Anion gap 10 5 - 15 mmol/L 06/14/2024 6:51 AM EDT [facility] BUN 8 5 - 23 mg/dL 06/14/2024 6:51 AM EDT [facility] Creatinine 0.41 0.40 - 1.00 mg/dL 06/14/2024 6:51 AM EDT [facility] Comment:METHOD TRACEABLE TO IDMS STANDARD Glucose 97 65 - 99 mg/dL 06/14/2024 6:51 AM EDT [facility] Calcium 9.1 8.5 - 10.5 mg/dL 06/14/2024 6:51 AM EDT [facility] eGFR (CKD-EPI)non-ra ce dependent >90 >59 ml/min/1.7 3sq.m 06/14/2024 6:51 AM EDT [facility] Comment: Reported eGFR is based on the CKD-EPI 2020 equation that does not use a race coefficient. PLASMA 06/14/2024 5:12 AM EDT 06/14/2024 5:13 AM EDT us Estefani Olea MD LAB BLOOD ORDERABLES Final Res ult [facility] [address] [facility] [address], [address] [place] [address] * (ABNORMAL) Glucose tolerance, 3 hours (06/12/2024 10:08 AM EDT) Pathologist [facility] Glucose, GTT - 3 Hour 123(H) 65 - 99 mg/dL 06/12/2024 11:00 AM EDT [facility] PLASMA 06/12/2024 10:0 8 AM EDT 06/12/2024 10:09 AM EDT us Kendrick Mahoney MD LAB BLOOD ORDERABLES Final Re sult [facility] [address] [place] [address], [address] [place] [address] * Echo complete W/O contrast (06/12/2024 10:03 AM EDT) [facility] LVOT stroke volume 64.40 ml XCELERA LV [...] proximal 15 cm XCELERA Left Ventricle Mass 127.96586 [id number] 7 g XCELERA Interventricular Septum Diastolic Thickness [...] hx of HOCM, us Estefani Olea MD ECHO ORDERABLES Final Resul t * (ABNORMAL) 2nd hr Glucose Tolerance 100 gm load (06/12/2024 8:46 AM EDT) [facility] Glucose, GTT - 2 Hour 175(H) 70 - 139 mg/dL 06/12/2024 10:05 AM EDT [facility] Comment: [employer] Conference: [...] ORDERABLES Final Re sult Performing Organization Address City/[facility]/ZIP Co de Phone Number [facility] [address] [place] [address], [address] [place] [address] * (ABNORMAL) Glucose tolerance, 1 hour (06/12/2024 7:51 AM EDT) Glucose, GTT - 1 Hour 187(H) 120 - 170 mg/dL 06/12/2024 9:11 AM EDT [facility] PLASMA 06/12/2024 7:51 AM EDT 06/12/2024 7:52 AM EDT us Kendrick Mahoney MD LAB BLOOD ORDERABLES Final Re sult Performing Organization Address [facility] Co de Phone Number [address], [address] [place] [address] * Glucose, tolerance fasting (06/12/2024 6:51 AM EDT) Glucose, GTT - Fasting 95 65 - 99 mg/dL 06/12/2024 8:05 AM EDT [facility] PLASMA 06/12/2024 6:51 AM EDT 06/12/2024 6:53 AM EDT us Kendrick Mahoney MD LAB BLOOD ORDERABLES Final Re sult Performing Organization Address [facility] Co de Phone Number [facility] [address] [place] [address], [address] [place] [address] * ABO Rh Repeat (06/12/2024 6:30 AM EDT) Only the most recent of2 resultswithin the time period is included. ABO O 06/12/2024 10:14 AM EDT [facility] RH Positive 06/12/2024 10:14 AM EDT [facility] 06/12/2024 6:30 AM EDT us Sue Curtis MD BLOOD BANK TEST ORDERABLES Fi nal Result [facility] [address] [place] [address], [place] * Urine Drug Screen (06/11/2024 5:00 PM EDT) Amphetamine/metham phetamine Negative Negative^ Negative 06/11/2024 6:19 PM EDT [facility] Comment:AMPH/METH screening cut off = 1000 ng/mL Barbiturate Screen, Ur Negative Negative^ Negative 06/11/2024 6:19 PM EDT [facility] Comment:Barbiturates screeni ng cut off value = 200 ng/mL Benzodiazepine Screen, Urine Negative Negative^ Negative 06/11/2024 6:19 PM EDT [facility] [facility] Comment:Benzodiazepines scre ening cut off value = 200 ng/mL THC, urine Negative Negative^ Negative 06/11/2024 6:19 PM EDT [facility] Comment:Cannabinoids/THC scr eening cut off value = 50 ng/mL Cocaine (metabolite) Negative Negative^ Negative 06/11/2024 6:19 PM EDT [facility] Comment:Cocaine screening cu t off value = 300 ng/mL Opiate Quant, Ur Negative Negative^ Negative 06/11/2024 6:19 PM EDT [facility] Comment: Opiates screening cut off value = 300 ng/mL NOTE: This test is used for the detection of codeine, hydrocodone (>1000 ng/mL), morphine and hydromorphone (>900 ng/mL) in urine. Phencyclidine Negative Negative^ Negative 06/11/2024 6:19 PM EDT [facility] Comment:Phencyclidine screen ing cut off value = 25 ng/mL Oxycodone Negative Negative^ Negative 06/11/2024 6:19 PM EDT [facility] Comment: Oxycodone screening cut off value = 300 ng/mL NOTE: This test is used for the detection of oxycodone and oxymorphone in urine. Methadone Negative Negative^ Negative 06/11/2024 6:19 PM EDT [facility] Comment:Methadone screening cut off value = 300 ng/mL. Ecstasy Negative Negative^ Negative 06/11/2024 6:19 PM EDT [facility] Comment: Ecstasy screening cut off value = 500 ng/mL This report is intended for use in clinical monitoring or management of patients. Urine / Unknown 06/11/2024 5 :00 PM EDT 06/11/2024 5:41 PM EDT us Kendrick Mahoney MD URINE ORDERABLES Final Result Performing Organization Address City/State/[facility] Co de Phone Number [facility] [address] [place] [address] * echo 2D W/ color flow (06/11/2024 [...] - 0.8 AI 06/11/2024 7:23 PM EDT [facility] Comment: NON REACTIVE No serologic evidence of infection to Treponema pallidum (syphilis). Repeat testing may be considered in patients with suspected acute or primary syphilis in 2 to 4 weeks. Serum / Unknown 06/11/2024 3 :22 PM EDT 06/11/2024 3:24 PM EDT us Kendrick Mahoney MD LAB BLOOD ORDERABLES Final Re sult [facility] [address] [place] [address] * (ABNORMAL) CBC auto differential (06/11/2024 3:22 PM EDT) White Blood Cells 8.9 4.0 - 11.0 X10E9/L 06/11/2024 3:50 PM EDT [facility] RBC count 4.30 3.80 - 5.20 X10E12/L 06/11/2024 3:50 PM EDT [facility] Hemoglobin 12.3 11.7 - 15.5 g/dL 06/11/2024 3:50 PM EDT [facility] Hematocrit 36.3 35 - 47 % 06/11/2024 3:50 PM EDT [facility] MCV 85 80 - 100 fL 06/11/2024 3:50 PM EDT [facility] MCH 28.6 27 - 34 pg 06/11/2024 3:50 PM EDT [facility] MCHC 33.8 32 - 36 g/dL 06/11/2024 3:50 PM EDT [facility] RDW 13.8 11.5 - 15.0 % 06/11/2024 3:50 PM EDT [facility] Platelets 231 150 - 450 X10E9/L 06/11/2024 3:50 PM EDT [facility] MPV 7.1 7 - 12 fL 06/11/2024 3:50 PM EDT [facility] % neutrophils 75.2 % 06/11/2024 3:50 PM EDT [facility] % lymphocytes 18.3 % 06/11/2024 3:50 PM EDT [facility] % monocytes 5.7 % 06/11/2024 3:50 PM EDT [facility] % eosinophils 0.4 % 06/11/2024 3:50 PM EDT [facility] % Basophils 0.4 % 06/11/2024 3:50 PM EDT [facility] Neutrophils Absolute (A) 6.7(H) 1.5 - 6.6 X10E9/L 06/11/2024 3:50 PM EDT [facility] Lymphocytes Absolute 1.6 1.0 - 3.5 X10E9/L 06/11/2024 3:50 PM EDT [facility] Monocytes Absolute 0.5 0 - 0.9 X10E9/L 06/11/2024 3:50 PM EDT [facility] Eosinophils Absolute 0.0 0.0 - 0.4 X10E9/L 06/11/2024 3:50 PM EDT [facility] Basophils Absolute 0.0 0.0 - 0.2 X10E9/L 06/11/2024 3:50 PM EDT [facility] Blood / Unknown 06/11/2024 3 :22 PM EDT 06/11/2024 3:24 PM EDT us Kendrick Mahoney MD LAB BLOOD ORDERABLES Final Re sult [facility] [address] [place] [address] * (ABNORMAL) Vitamin D 25 hydroxy (06/11/2024 3:22 PM EDT) Vit D, 25-Hydroxy 23.3(L) 30 - 100 ng/mL 06/11/2024 4:27 PM EDT [facility] Comment: Vitamin D status 25 [place] Vitamin D Deficiency <20 ng/mL Insufficiency 20-29 ng/mL Sufficiency 30-100 ng/mL Toxicity >100 ng/mL NOTE: A pediatric reference range has not been established by the dining chair seat cushion trimmer of this kit. The [place] [employer] recommends a Vitamin D level of = or >20ng/mL in infants and children. PLASMA 06/11/2024 3:22 PM EDT 06/11/2024 3:24 PM EDT us Kendrick Mahoney MD LAB BLOOD ORDERABLES Final Re sult Performing Organization Address [facility] [place] [address] * Phosphorus (06/11/2024 3:22 PM EDT) Phosphorus 4.0 2.4 - 4.9 mg/dL 06/11/2024 5:33 PM EDT [facility] PLASMA 06/11/2024 3:22 PM EDT 06/11/2024 3:24 PM EDT us Kendrick Mahoney MD LAB BLOOD ORDERABLES Final Re sult Performing Organization Address [facility] Co de Phone Number [facility] [address] [place] [id number] * TSH (06/10/2024) Thyroid Stimulating (3Rd Generation) Hormone/ Tsh 1.480 MANUALLY TRANSCRIBED RESULTS us Not In System Ref Prov LAB BLOOD ORDERABLES Oralia l Result Performing Organization Address [facility]/ZIP Co de Phone Number MANUALLY TRANSCRIBED RESULTS * Ultrasound - Office (05/13/2024 11:31 AM EDT) Anatomical Region Laterality Modality AMB Ultrasound us Not In System Ref Prov IMG US ORDERABLES Final R esult from Last 3 Months Insurance [facility] MEDICAID Care Teams Search Planner Relationship Specialty Start Date End Date Sarah Queen, [employer]IV[employer] CONSULTANT [address] [place] [address] PCP - General Internal Medicine 09/03/23
--- OUTSIDE RECORDS SUMMARY | 2024-08-03 19:43 | XMS_ITS | CCD ---
Author Organization [facility] Care Team Providers Care Lathe Setup Operator Name Role Phone HEIDY, DR MECHELLE Serrano Attending Unavailable HEIDY, DR MECHELLE Serrano Consulting Unavailable HEIDY, DR MECHELLE Serrano Admitting Unavailable Naomy Marianna Unavailable Terrence Ventura MD Primary Care Provider [phone] Karyna ROOFING TECHNICIAN-APPAREL RENTAL CLERK, Chavez Lares Primary Care Provider Terrence Ventura MD Primary Care Provider Karyna ROOFING TECHNICIAN-APPAREL RENTAL CLERK, Chavez L Primary Care Provider KARYNA, CHAVEZ L Referring Unavailable KARYNA, CHAVEZ L Primary Care Unavailable KARYNA, CHAVEZ L Primary Care Unavailable SRI, RONALD R Referring Unavailable KARYNA, CHAVEZ L Primary Care Unavailable SRI, RONALD R Referring Unavailable SHAY, CLAUDEEN K F [...] L Primary Care Unavailable MARGOTH CONNOR Attending Unavailabl e ANIA FENTON Referring Unavailable KARYNA, CHAVEZ L Primary Care [...] R Referring Unavailable VANESA SEGOVIA Admitting Unavailable SEGOVIA, VANESA Grace Attending Unavailable KARYNA, CHAVEZ L Primary Care Unavailable MEHREEN SHAY Consulting UnavailKATLYN Hernandez Consulting Unavailable EMILY, LARISSA Mcnulty Consulting Unavailable AHMET VALVERDE Consulting Unavailable BERTO SUÁREZ Attending Unavailable SRI, RONALD R Referring Unavailable KARYNA, CHAVEZ L Primary Care Unavailable CHELSEA CARSON Attending Unavailable HYUN, CHELSEA Referring Unavailable CHELSEA CARSON Attending Unavailable SRI, RONALD Attending Unavailable SRI, RONALD Attending Unavailable ROSALBA BAER Attending Unavailable SRI, RONALD Attending Unavailable HYUN, CHELSEA Attending Unavailable Medications Current Medications Medication Drug [...] Active Start: 06-26-2024 End: 07-06-2024 blood-glucose [place] [facility] [place] Ind ications: Diet controlled gestational diabetes mellitus (GDM) in third trimester Please check blood glucose fasting and 1 hour after each meal 1 each 06/26/2024 07/06/2024 Discontinued (Reorder) Start: 06-26-2024 blood-glucose [place] [facility] [place] Indications: Diet controlled gestational diabetes mellitus (GDM) [...] mg / cholecalciferol 200 unt oral tablet (19 sources) Vitamin D Start: 06-28-2024 take 1 [...] 06/28/2024 Active digoxin 0.25 mg oral tablet (19 sources) Cardiac Glycoside Start: 04-27-2025 take 1 tablet by mouth in the [...] Active magnesium oxide 400 mg oral tablet (19 sources) Start: 06-29-19 take 1 tablet by mouth in the morning magnesium oxide (Mag-Ox) 400 MG tablet Take 400 mg by mouth in the morning and 400 mg in the evening. 06/28/2024 Active omeprazole 20 mg delayed release oral capsule (8 sources) Proton Pump Inhibitor Start: 07-08-19 End: [...] 10 5 April 04, 2024 12:00am Pnv,Calcium 03-Edvv-Qabig Acid ( Vitamin Plus Low Iron) 27 mg iron- 1 mg tablet (1 source) Start: 04-04-2024 take 1 tablet by mouth once daily Pnv,Calcium 22-Rgdi-Rjpea Acid ( Vitamin Plus Low Iron) 27 mg iron- 1 mg tablet Active 1 TAB PO Daily April 04, 2024 12:00am potassium chloride 10 meq extended release oral tablet (19 sources) Start: 06-28-2024 take 5 tablets by mouth in the morning potassium chloride CR (Klor-Con) 10 MEQ ER tablet Take 50 mEq by mouth in the morning. 06/28/2024 Active go300-soox-mpetw acid ( 19) 29 mg iron- 1 mg tablet,chewable (18 sources) nr212-tjrh-pidno acid ( 19) 29 mg iron- 1 mg tablet,chewable Chew 1 tablet and swallow in the morning. Active dp111-h enrique-folic acid ( 19) 29 mg iron- [...] Vit-Fe Fumarate-FA ( Plus) 27-1 MG tablet (10 sources) Vit-Fe Fumarate-FA ( Plus) 27-1 MG tablet Active Vit-Fe Fumarate-FA ( Vitamins) 28-0.8 MG tablet (15 sources) Start: 05-11-2024 End: 05-11-2025 take 1 tablet by mouth once daily Vit-Fe Fumarate-FA ( Vitamins) 28-0.8 MG tablet Indications: Second trimester Take 1 tablet by mouth Daily 30 tablet 11 05/11/2024 05/11/2025 Active sotalol hydrochloride 160 mg oral tablet (19 sources) Antiarrhythmic Start: 06-28-2024 take 1 tablet [...] 06-11-2024 Episodic Other aftercare (1 source) Other longterm (current) drug therapy; Translations: [Other finance business manager (current) drug therapy] Onset: 06-11-2024 Episodic Other [...] Value Interpretation Reference Range Facility US OB BPP W NON-STRESS on 07-31-2024 [place] [address] Ultrasound Report Signed Patient: NISHA MTZ MR#: [id number] : 1995 Acct:[id number] Age/Sex: 28 / F ADM Date: 07/30/24 Loc: US Attending Dr: Ronald Fierro D.O. Ordering Physician: Ronald Fierro D.O. Date of Service: 07/30/24 Procedure(s): US OB BPP w non-stress Accession Number(s): [id number] cc: TERRENCE VENTURA Corey D.O. [place] [address] Patient Name: NISHA MTZ MRN: [id number] date: 1995 Sex: F Assigned Patient Location: [facility] Current Patient Location: Accession/Order Number: [id number] Exam Date: 07/31/2024 08:53 Report Date: 07/31/2024 08:55 At the request of: RONALD FIERRO DO [...] Roldan M.D. 07/31/2024 8:55 AM Dictation Location: [place] [address] Electronically authenticated by: [id number] Y Date: 07/31/2024 08:55 Dictated By: Hayley Roldan M.D. Signed By: 07/31/24 0857 DD/ 0855 TD/TT: Miniature Model Maker: [facility] Radiology, Radiologist, - 07/31/2024 [place] [address] Ultrasound Report Signed Patient: NISHA MTZ MR#: [id number] : 1995 Acct:[id number] Age/Sex: 28 / F ADM Date: 07/30/24 Loc: US Attending Dr: Ronald Fierro D.O. Ordering Physician: Ronald Fierro D.O. Date of Service: 07/30/24 Procedure(s): US OB BPP w non-stress Accession Number(s): [id number] cc: TERRENCE VENTURA Corey D.O. [place] [id number] Patient Name: NISHA MTZ MRN: [facility]:[id number] date: 1995 Sex: F Assigned Patient Location: [facility] Current Patient Location: Accession/Order Number: [id number] Exam Date: 07/31/2024 08:53 Report Date: 07/31/2024 08:55 At the request of: RONALD FIERRO DO [...] Roldan M.D. 07/31/2024 8:55 AM Dictation Location: [place] [address] Electronically authenticated by: [id number] Y Date: 07/31/2024 08:55 Dictated By: Hayley Roldan M.D. Signed By: 07/31/24 0857 DD/ 0855 TD/TT: Miniature Model Maker: [facility] Radiology Study observation (narrative) [facility] OB BPP W NON-STRESS Ordered By: Radiologist Radiology on 07-31-2024 [facility] Work Phone: Urinalysis macro (dipstick) panel (U)on 07-29-2024 Bilirubin, UA Negative Negative - 4(70) +++ mg/dL [facility] Blood, UA Negative Negative - 50 Jordan/mcL [facility] Clarity, UA Clear [facility] re Color, UA Yellow [facility] e Glucose, UA Negative Negative - 1999(110) ++++ mg/dL [facility] Interpretation and review of laboratory results Abnormal [facility] Ketones, UA Positive Negative - 160(16) ++++ mg/dL [facility] Leukocytes, UA Negative Negative - 500+++ Leanne/mcL [facility] Nitrite, UA Negative Negative - Positive [facility] pH, UA 6.5 5 - 9 [facility] e Protein, UA Negative Negative - 1999(20) ++++ mg/dL [facility] Spec Grav, UA 1.02 1 - 1.03 [facility] Urobilinogen, UA 1.0 0.2 - 12 mg/dL [facility] US OB BPP W NON-STRESS on 07-17-[address] [address] Ultrasound Report Signed Patient: NISHA MTZ MR#: [id number] : 1995 Acct:[id number] Age/Sex: 28 / F ADM Date: 07/16/24 Loc: US Attending Dr: Ronald Fierro D.O. Ordering Physician: Ronald Fierro D.O. Date of Service: 07/16/24 Procedure(s): US OB BPP w non-stress Accession Number(s): [id number] cc: TERRENCE VENTURA ; Ronald Fierro D.O. [address] [address] Patient Name: NISHA MTZ MRN: [id number] date: 1995 Sex: F Assigned Patient Location: [facility] Current Patient Location: Accession/Order Number: [id number] Exam Date: 07/17/2024 06:44 Report Date: 07/17/2024 06:48 At the request of: RONALD FIERRO DO Procedure: US OB BPP w non-stress US OB BPP w non-stress 07/16/2024 7:50 PM SIGNS AND SYMPTOMS: 12/05/2023 Polyhydraminos, supraventricular tachycarida PROTOCOL: Grayscale and color Doppler sonographic images of the pelvis were obtained COMPARISON: 07/09/2024 FINDINGS: The medicaid business analyst reports a BPP of 8 out of 8. SKYLAR is normal at 25.2 cm. heart rate 128 bpm. US/US OB BPP w non-stress Impression: BPP 8 out of 8. Impression dictated by: Jorge Lam M.D. 07/17/2024 6:48 AM Dictation Location: [place] [address] Electronically authenticated by: [id number] Y Date: 07/17/2024 06:48 Dictated By: Jorge Lam M.D. Signed By: 07/17/24 0651 DD/ 0648 TD/TT: Miniature Model Maker: [facility] Radiology, Radiologist, - 07/17/2024 [place] [address] Ultrasound Report Signed Patient: NISHA MTZ MR#: [id number] : 1995 Acct:[id number] Age/Sex: 28 / F ADM Date: 07/16/24 Loc: US Attending Dr: Ronald Fierro D.O. Ordering Physician: Ronald Fierro D.O. Date of Service: 07/16/24 Procedure(s): US OB BPP w non-stress Accession Number(s): [id number] cc: TERRENCE VENTURA ; Ronald Fierro D.O. [place] [id number] Patient Name: NISHA MTZ MRN: [facility]:[id number] date: 1995 Sex: F Assigned Patient Location: [facility] Current Patient Location: Accession/Order Number: [id number] Exam Date: 07/17/2024 06:44 Report Date: 07/17/2024 06:48 At the request of: RONALD FIERRO DO Procedure: US OB BPP w non-stress US OB BPP w non-stress 07/16/2024 7:50 PM SIGNS AND SYMPTOMS: 12/05/2023 Polyhydraminos, supraventricular tachycarida PROTOCOL: Grayscale and color Doppler sonographic images of the pelvis were obtained COMPARISON: 07/09/2024 FINDINGS: The medicaid business analyst reports a BPP of 8 out of 8. SKYLAR is normal at 25.2 cm. heart rate 128 bpm. US/US OB BPP w non-stress Impression: BPP 8 out of 8. Impression dictated by: Jorge Lam M.D. 07/17/2024 6:48 AM Dictation Location: [place] [address] Electronically authenticated by: [id number] Y Date: 07/17/2024 06:48 Dictated By: Jorge Lam M.D. Signed By: 07/17/24 0651 DD/ TD/TT: Miniature Model Maker: [facility] Radiology Study observation (narrative) [facility] US OB BPP W NON-STRESS Ordered By: Radiologist Radiology on 07-17-2024 [facility] Work Phone: Urinalysis macro (dipstick) panel (U)on 07-15-2024 Bilirubin, UA Negative Negative - 4(70) +++ mg/dL [facility] Blood, UA Negative Negative - 50 Jordan/mcL [facility] Healthcare Clarity, UA Clear [facility] re Color, UA Yellow [facility] Glucose, UA Negative Negative - 1999(110) ++++ mg/dL [facility] Interpretation and review of laboratory results Normal [facility] Ketones, UA Negative Negative - 160(16) ++++ mg/dL [facility] Leukocytes, UA Negative Negative - 500+++ Leanne/mcL [facility] Nitrite, UA Negative Negative - Positive [facility] pH, UA 6 5 - 9 [facility] Protein, UA Negative Negative - 1999(20) ++++ mg/dL [facility] Spec Grav, UA 1.02 1 - 1.03 [facility] Urobilinogen, UA 0.2 0.2 - 12 mg/dL [facility] Glucose random or fasting- P OCTOrdered By: Ravinder Burnett on 07-06-2024 External Glucose Fasting Or Random (Fbs) 91 [facility] Urinalysis macro (dipstick) panel (U)on 06-30-2024 Bilirubin, UA Negative Negative - 4(70) +++ mg/dL [facility] Blood, UA Negative Negative - 50 Jordan/mcL [facility] Healthcare Clarity, UA Clear [facility] re Color, UA Yellow [facility] Glucose, UA Negative Negative - 1999(110) ++++ mg/dL [facility] Interpretation and review of laboratory results Abnormal [facility] Ketones, UA Positive Negative - 160(16) ++++ mg/dL [facility] Leukocytes, UA Negative Negative - 500+++ Leanne/mcL [facility] Nitrite, UA Negative Negative - Positive [facility] pH, UA 6 5 - 9 [facility] Protein, UA Negative Negative - 1999(20) ++++ mg/dL [facility] Spec Grav, UA 1.025 1 - 1.03 [facility] Urobilinogen, UA 1.0 0.2 - 12 mg/dL [facility] BEDSIDE GLUCOSEon 06-28-2024 Glucose [Mass/Vol] 124 mg/dL High 65-99 [facility] Comment on above: Performed By: #### 1 9123-9, CMP, 75642-8, 98717-1, 2777-1, CBCA #### [facility] ([id number]) [address], [address] [place] [address] Glucose [Mass/Vol] 92 mg/dL Normal 65-99 [facility] Comment on above: Performed By: #### 1 9123-9, CMP, 59193-8, 81516-4, 2777-1, CBCA #### [facility] ([id number]) [address], [address] [place] [address] COMPREHENSIVE METABOLIC PANE Ab 06-28-2024 Albumin [Mass/Vol] 3.3 g/dL Normal 3.2-5.3 [facility] Comment on above: Performed By: #### 1 9123-9, CMP, 01655-5, 39753-8, 2777-1, CBCA #### [facility] ([id number]) [address], [address] [place] [address] ALP [Catalytic activity/Vol] 74 U/L Normal 39-[address] [facility] Comment on above: Performed By: #### 1 9123-9, CMP, 02174-3, 72676-0, 2777-1, CBCA #### [facility] ([id number]) [address], [address] [place] [address] ALT [Catalytic activity/Vol] 8 U/L Normal <=[address] [facility] Comment on above: Performed By: #### 1 9123-9, CMP, 78201-6, 10770-7, 2777-1, CBCA #### [facility] ([id number]) [address], [address] [place] [address] Anion gap [Moles/Vol] 12 mmol/L Normal 5-15 [facility] Comment on above: Performed By: #### 1 9123-9, CMP, 35162-2, 01976-0, 2777-1, CBCA #### [facility] ([id number]) [address], [address] [place] [address] AST [Catalytic activity/Vol] 13 U/L Normal <=[address] [facility] Comment on above: Performed By: #### 1 9123-9, CMP, 85370-8, 43509-2, 2777-1, CBCA #### [facility] ([id number]) [address], [address] [place] [address] Bilirubin [Mass/Vol] 0.4 mg/dL Normal 0.3-1.2 [facility] Comment on above: Performed By: #### 1 9123-9, CMP, 37362-4, 96447-5, 2777-1, CBCA #### [facility] ([id number]) [address], [address] [place] [address] Calcium [Mass/Vol] 9.0 mg/dL Normal 8.5-10.5 [facility] Comment on above: Performed By: #### 1 9123-9, CMP, 33126-5, 68216-5, 2777-1, CBCA #### [facility] ([id number]) [address], [address] [place] [address] Chloride [Moles/Vol] 106 mmol/L Normal 98-109 [facility] Comment on above: Performed By: #### 1 9123-9, CMP, 89605-9, 03255-6, 2777-1, CBCA #### [facility] ([id number]) [address], [address] [place] [address] CO2 [Moles/Vol] 21 mmol/L Low 22-[address] [facility] Comment on above: Performed By: #### 1 9123-9, CMP, 81811-1, 75238-2, 2777-1, CBCA #### [facility] ([id number]) [address], [facility] [address] [place] [address] Creatinine [Mass/Vol] 0.35 mg/dL Low 0.40-1.00 [facility] Comment on above: Result Comment: METH OD TRACEABLE TO IDMS STANDARD Performed By: #### 1 9123-9, CMP, 32132-3, 09427-2, 2777-1, CBCA #### [facility] ([id number]) [address] [address] [place] [address] EGFR (CKD-EPI) NON-RACE DEPENDENT >^90 Normal >=60 [facility] Comment on above: Result Comment: Repo rted eGFR is based on the CKD-EPI 2020 equation that does not use a race coefficient. Performed By: #### 1 9123-9, CMP, 69151-7, 92069-7, 2777-1, CBCA #### [facility] ([id number]) [address] [address] Glucose [Mass/Vol] 94 mg/dL Normal 65-99 [facility] Comment on above: Performed By: #### 1 9123-9, CMP, 00414-5, 94003-4, 2777-1, CBCA #### [facility] ([id number]) [address] [address] [place] [address] Potassium [Moles/Vol] 3.6 mmol/L Normal 3.5-5.0 [facility] Comment on above: Performed By: #### 1 9123-9, CMP, 56148-4, 19895-1, 2777-1, CBCA #### [facility] ([id number]) [address], [address] [place] [address] Protein [Mass/Vol] 5.7 g/dL Low 6.0-8.0 [facility] Comment on above: Performed By: #### 1 9123-9, CMP, 20270-4, 61354-7, 2777-1, CBCA #### [facility] ([id number]) [address], [address] [place] [address] Sodium [Moles/Vol] 139 mmol/L Normal 134-146 [facility] Comment on above: Performed By: #### 1 9123-9, CMP, 47073-6, 59701-5, 2777-1, CBCA #### [facility] ([id number]) [address], [address] [place] [address] Urea nitrogen [Mass/Vol] 6 mg/dL Normal 5-[address] [facility] Comment on above: Performed By: #### 1 9123-9, CMP, 10799-9, 17774-7, 2777-1, CBCA #### [facility] ([id number]) [address], [address] [place] [address] COMPREHENSIVE METABOLIC PANE Ab 06-27-2024 Albumin [Mass/Vol] 3.3 g/dL Normal 3.2-5.3 [facility] Comment on above: Performed By: #### 1 9123-9, CMP, 24543-0, 06481-5, 2777-1, CBCA #### [facility] ([id number]) [address], [address] [place] [address] ALP [Catalytic activity/Vol] 71 U/L Normal 39-[address] [facility] Comment on above: Performed By: #### 1 9123-9, CMP, 76307-4, 26201-4, 2777-1, CBCA #### [facility] ([id number]) [address], [address] [place] [address] ALT [Catalytic activity/Vol] 7 U/L Normal 0-[address] [facility] Comment on above: Performed By: #### 1 9123-9, CMP, 95197-6, 65230-4, 2777-1, CBCA #### [facility] ([id number]) [address], [address] [place] [address] Anion gap [Moles/Vol] 10 mmol/L Normal 5-15 [facility] Comment on above: Performed By: #### 1 9123-9, CMP, 98116-9, 42933-2, 2777-1, CBCA #### [facility] ([id number]) [address], [address] [place] [address] AST [Catalytic activity/Vol] 11 U/L Normal 0-[address] [facility] Comment on above: Performed By: #### 1 9123-9, CMP, 56227-0, 56556-5, 2777-1, CBCA #### [facility] ([id number]) [address], [address] [place] [address] Bilirubin [Mass/Vol] 0.4 mg/dL Normal 0.3-1.2 [facility] Comment on above: Performed By: #### 1 9123-9, CMP, 70611-4, 10372-3, 2777-1, CBCA #### [facility] ([id number]) [address], [address] [place] [address] Calcium [Mass/Vol] 9.0 mg/dL Normal 8.5-10.5 [facility] Comment on above: Performed By: #### 1 9123-9, CMP, 00916-6, 92187-1, 2777-1, CBCA #### [facility] ([id number]) [address], [address] [place] [address] Chloride [Moles/Vol] 105 mmol/L Normal 98-109 [facility] Comment on above: Performed By: #### 1 9123-9, CMP, 60526-5, 18607-2, 2777-1, CBCA #### [facility] ([id number]) [address], [address] [place] [address] CO2 [Moles/Vol] 22 mmol/L Normal 22-[address] [facility] Comment on above: Performed By: #### 1 9123-9, CMP, 36322-9, 29759-4, 2777-1, CBCA #### [facility] ([id number]) [address], [address] [place] [address] Creatinine [Mass/Vol] 0.30 mg/dL Low 0.40-1.00 [facility] Comment on above: Result Comment: METH OD TRACEABLE TO IDMS STANDARD Performed By: #### 1 9123-9, [facility], 81714-5, 09112-2, 2777-1, CBCA #### [facility] ([id number]) [address] [place] [address] eGFR (CKD-EPI) NON-RACE DEPENDENT >90 Normal >59 [facility] Comment on above: Result Comment: Reported eGFR is based on the CKD-EPI 2021 equation that does not use a race coefficient. Performed By: #### 1 9123-9, [facility], 89346-2, 46020-6, 2777-1, CBCA #### [facility] ([id number]) [address] [place] [address] Glucose [Mass/Vol] 104 mg/dL High 65-99 [facility] Comment on above: Performed By: #### 1 9123-9, CMP, 90235-5, 66222-8, 2777-1, CBCA #### [facility] ([id number]) [address] [place] [address] Potassium [Moles/Vol] 3.5 mmol/L Normal 3.5-5.0 [facility] Comment on above: Performed By: #### 1 9123-9, CMP, 53984-0, 51049-4, 2777-1, CBCA #### [facility] ([id number]) [address], [address] [place] [address] Protein [Mass/Vol] 5.6 g/dL Low 6.0-8.0 [facility] Comment on above: Performed By: #### 1 9123-9, CMP, 42237-1, 70125-4, 2777-1, CBCA #### [facility] ([id number]) [address] [place] [address] Sodium [Moles/Vol] 137 mmol/L Normal 134-146 [facility] Comment on above: Performed By: #### 1 9123-9, CMP, 54689-4, 82284-2, 2777-1, CBCA #### [facility] ([id number]) [address], [address] [place] [address] Urea nitrogen [Mass/Vol] 6 mg/dL Normal 5-[address] [facility] Comment on above: Performed By: #### 1 9123-9, CMP, 68496-3, 24518-1, 2777-1, CBCA #### [facility] ([id number]) [address] [place] [address] Glucose Glucometer (BldC) [M ass/Vol]on 06-27-2024 Glucose [Mass/Vol] 102 mg/dL High 65-99 [facility] Glucose [Mass/Vol] 115 mg/dL High 65-99 [facility] Glucose [Mass/Vol] 183 mg/dL High 65-99 [facility] Glucose [Mass/Vol] 156 mg/dL High 65-99 [facility] Glucose [Mass/Vol] 108 mg/dL High 65-99 [facility] MAGNESIUMon 06-27-2024 Magnesium [Mass/Vol] 1.5 mg/dL Low 1.8-2.6 [facility] Comment on above: Performed By: #### 1 9123-9, CMP, 76000-2, 82831-2, 2777-1, CBCA #### [facility] ([id number]) [address], [address] [place] [address] COMPREHENSIVE METABOLIC PANE Ab 06-26-2024 Albumin [Mass/Vol] 3.4 g/dL Normal 3.2-5.3 [facility] Comment on above: Performed By: #### 1 9123-9, CMP, 08695-9, 19184-4, 2777-1, CBCA #### [facility] ([id number]) [address], [address] [place] [address] ALP [Catalytic activity/Vol] 70 U/L Normal 39-[address] [facility] Comment on above: Performed By: #### 1 9123-9, CMP, 09201-1, 14818-8, 2777-1, CBCA #### [facility] ([id number]) [address], [address] [place] [address] ALT [Catalytic activity/Vol] 8 U/L Normal 0-[address] [facility] Comment on above: Performed By: #### 1 9123-9, CMP, 90957-1, 04923-1, 2777-1, CBCA #### [facility] ([id number]) [address], [address] [place] [address] Anion gap [Moles/Vol] 10 mmol/L Normal 5-15 [facility] Comment on above: Performed By: #### 1 9123-9, CMP, 93680-8, 46560-2, 2777-1, CBCA #### [facility] ([id number]) [address], [address] [place] [address] AST [Catalytic activity/Vol] 13 U/L Normal 0-[address] [facility] Comment on above: Performed By: #### 1 9123-9, CMP, 42667-6, 30909-3, 2777-1, CBCA #### [facility] ([id number]) [address], [address] [place] [address] Bilirubin [Mass/Vol] 0.3 mg/dL Normal 0.3-1.2 [facility] Comment on above: Performed By: #### 1 9123-9, CMP, 52932-7, 50696-9, 2777-1, CBCA #### [facility] ([id number]) [address], [address] [place] [address] Calcium [Mass/Vol] 9.5 mg/dL Normal 8.5-10.5 [facility] Comment on above: Performed By: #### 1 9123-9, CMP, 36652-7, 54680-5, 2777-1, CBCA #### [facility] ([id number]) [address], [address] [place] [address] Chloride [Moles/Vol] 105 mmol/L Normal 98-109 [facility] Comment on above: Performed By: #### 1 9123-9, CMP, 28507-4, 15517-2, 2777-1, CBCA #### [facility] ([id number]) [address], [address] [place] [address] CO2 [Moles/Vol] 24 mmol/L Normal 22-[address] [facility] Comment on above: Performed By: #### 1 9123-9, CMP, 08194-7, 09295-5, 2777-1, CBCA #### [facility] ([id number]) [address], [address] [place] [address] Creatinine [Mass/Vol] 0.34 mg/dL Low 0.40-1.00 [facility] Comment on above: Result Comment: METH OD TRACEABLE TO IDMS STANDARD Performed By: #### 1 9123-9, CMP, 55502-2, 20280-3, 2777-1, CBCA #### [facility] ([id number]) [address], [address] [place] [address] eGFR (CKD-EPI) NON-RACE DEPENDENT >90 Normal >59 [facility] Comment on above: Result Comment: Reported eGFR is based on the CKD-EPI 2020 equation that does not use a race coefficient. Performed By: #### 1 9123-9, CMP, 54410-3, 06799-2, 2777-1, CBCA #### [facility] ([id number]) [address], [address] [place] [address] Glucose [Mass/Vol] 100 mg/dL High 65-99 [facility] Comment on above: Performed By: #### 1 9123-9, CMP, 88982-2, 29737-0, 2777-1, CBCA #### [facility] ([id number]) [address], [address] [place] [address] Potassium [Moles/Vol] 3.6 mmol/L Normal 3.5-5.0 [facility] Comment on above: Performed By: #### 1 9123-9, CMP, 93849-8, 58461-7, 2777-1, CBCA #### [facility] ([id number]) [address], [address] [place] [address] Protein [Mass/Vol] 5.7 g/dL Low 6.0-8.0 [facility] Comment on above: Performed By: #### 1 9123-9, CMP, 38172-4, 96622-1, 2777-1, CBCA #### [facility] ([id number]) [address], [address] [place] [address] Sodium [Moles/Vol] 139 mmol/L Normal 134-146 [facility] Comment on above: Performed By: #### 1 9123-9, CMP, 30096-2, 21187-9, 2777-1, CBCA #### [facility] ([id number]) [address], [address] [place] [address] Urea nitrogen [Mass/Vol] 7 mg/dL Normal 5-[address] [facility] Comment on above: Performed By: #### 1 9123-9, CMP, 70889-8, 41199-7, 2777-1, CBCA #### [facility] ([id number]) [address], [address] [place] [address] Glucose Glucometer (BldC) [M ass/Vol]on 06-26-2024 Glucose [Mass/Vol] 112 mg/dL High 65-99 [facility] Glucose [Mass/Vol] 137 mg/dL High 65-99 [facility] Glucose [Mass/Vol] 113 mg/dL High 65-99 [facility] Glucose [Mass/Vol] 109 mg/dL High 65-99 [facility] Glucose [Mass/Vol] 101 mg/dL High 65-99 [facility] COMPREHENSIVE METABOLIC PANE Ab 06-25-2024 Albumin [Mass/Vol] 3.4 g/dL Normal 3.2-5.3 [facility] Comment on above: Performed By: #### 1 9123-9, CMP, 87593-9, 18109-7, 2777-1, CBCA #### [facility] ([id number]) [address], [address] [place] [address] ALP [Catalytic activity/Vol] 70 U/L Normal 39-[address] [facility] Comment on above: Performed By: #### 1 9123-9, CMP, 36388-3, 03913-3, 2777-1, CBCA #### [facility] ([id number]) [address], [address] [place] [address] ALT [Catalytic activity/Vol] 9 U/L Normal 0-[address] [facility] Comment on above: Performed By: #### 1 9123-9, CMP, 66527-7, 56468-7, 2777-1, CBCA #### [facility] ([id number]) [address], [address] [place] [address] Anion gap [Moles/Vol] 12 mmol/L Normal 5-15 [facility] Comment on above: Performed By: #### 1 9123-9, CMP, 96864-1, 72962-1, 2777-1, CBCA #### [facility] ([id number]) [address], [address] [place] [address] AST [Catalytic activity/Vol] 11 U/L Normal 0-[address] [facility] Comment on above: Performed By: #### 1 9123-9, CMP, 67708-5, 65159-7, 2777-1, CBCA #### [facility] ([id number]) [address], [address] [place] [address] Bilirubin [Mass/Vol] 0.4 mg/dL Normal 0.3-1.2 [facility] Comment on above: Performed By: #### 1 9123-9, CMP, 57066-9, 38075-1, 2777-1, CBCA #### [facility] ([id number]) [address], [address] [place] [address] Calcium [Mass/Vol] 9.6 mg/dL Normal 8.5-10.5 [facility] Comment on above: Performed By: #### 1 9123-9, CMP, 48668-3, 46918-3, 2777-1, CBCA #### [facility] ([id number]) [address], [address] [place] [address] Chloride [Moles/Vol] 103 mmol/L Normal 98-109 [facility] Comment on above: Performed By: #### 1 9123-9, CMP, 48589-1, 86567-2, 2777-1, CBCA #### [facility] ([id number]) [address], [facility] [address] [place] [address] CO2 [Moles/Vol] 22 mmol/L Normal 22-[address] [facility] Comment on above: Performed By: #### 1 9123-9, CMP, 37068-7, 19974-3, 2777-1, CBCA #### [facility] ([id number]) [address] [address] Creatinine [Mass/Vol] 0.28 mg/dL Low 0.40-1.00 [facility] Comment on above: Result Comment: METH OD TRACEABLE TO IDMS STANDARD Performed By: #### 1 9123-9, CMP, 09259-1, 58551-7, 2777-1, CBCA #### [facility] ([id number]) [address], [address] [address] eGFR (CKD-EPI) NON-RACE DEPENDENT >90 Normal >59 [facility] Comment on above: Result Comment: Reported eGFR is based on the CKD-EPI 2020 equation that does not use a race coefficient. Performed By: #### 1 9123-9, CMP, 35452-6, 76535-7, 2777-1, CBCA #### [facility] ([id number]) [address] [address] Glucose [Mass/Vol] 93 mg/dL Normal 65-99 [facility] Comment on above: Performed By: #### 1 9123-9, CMP, 61328-9, 81616-4, 2777-1, CBCA #### [facility] ([id number]) [address] [address] Potassium [Moles/Vol] 3.5 mmol/L Normal 3.5-5.0 [facility] Comment on above: Performed By: #### 1 9123-9, CMP, 44608-9, 73829-1, 2777-1, CBCA #### [facility] ([id number]) [address], [address] [place] [address] Protein [Mass/Vol] 5.8 g/dL Low 6.0-8.0 [facility] Comment on above: Performed By: #### 1 9123-9, CMP, 29543-4, 97667-3, 2777-1, CBCA #### [facility] ([id number]) [address], [address] [place] [address] Sodium [Moles/Vol] 137 mmol/L Normal 134-146 [facility] Comment on above: Performed By: #### 1 9123-9, CMP, 41651-2, 46547-2, 2777-1, CBCA #### [facility] ([id number]) [address], [address] [place] [address] Urea nitrogen [Mass/Vol] 7 mg/dL Normal 5-[address] [facility] Comment on above: Performed By: #### 1 9123-9, CMP, 58218-0, 07245-6, 2777-1, CBCA #### [facility] ([id number]) [address], [address] [place] [address] Glucose Glucometer (BldC) [M ass/Vol]on 06-25-2024 Glucose [Mass/Vol] 113 mg/dL High 65-99 [facility] Glucose [Mass/Vol] 122 mg/dL High 65-99 [facility] Glucose [Mass/Vol] 145 mg/dL High 65-99 [facility] COMPREHENSIVE METABOLIC PANE Ab 06-24-2024 Albumin [Mass/Vol] 3.5 g/dL Normal 3.2-5.3 [facility] Comment on above: Performed By: #### 1 9123-9, CMP, 50628-8, 13015-7, 2777-1, CBCA #### [facility] ([id number]) [address], [address] [place] [address] ALP [Catalytic activity/Vol] 70 U/L Normal 39-[address] [facility] Comment on above: Performed By: #### 1 9123-9, CMP, 65942-8, 03568-8, 2777-1, CBCA #### [facility] ([id number]) [address], [address] [place] [address] ALT [Catalytic activity/Vol] 8 U/L Normal 0-[address] [facility] Comment on above: Performed By: #### 1 9123-9, CMP, 18992-5, 21742-7, 2777-1, CBCA #### [facility] ([id number]) [address], [address] [place] [address] Anion gap [Moles/Vol] 12 mmol/L Normal 5-15 [facility] Comment on above: Performed By: #### 1 9123-9, CMP, 40819-2, 68524-3, 2777-1, CBCA #### [facility] ([id number]) [address], [address] [place] [address] AST [Catalytic activity/Vol] 12 U/L Normal 0-[address] [facility] Comment on above: Performed By: #### 1 9123-9, CMP, 12748-0, 54349-5, 2777-1, CBCA #### [facility] ([id number]) [address], [address] [place] [address] Bilirubin [Mass/Vol] 0.4 mg/dL Normal 0.3-1.2 [facility] Comment on above: Performed By: #### 1 9123-9, CMP, 70200-0, 08899-5, 2777-1, CBCA #### [facility] ([id number]) [address], [address] [place] [address] Calcium [Mass/Vol] 9.2 mg/dL Normal 8.5-10.5 [facility] Comment on above: Performed By: #### 1 9123-9, CMP, 12545-7, 43348-2, 2777-1, CBCA #### [facility] ([id number]) [address], [address] [place] [address] Chloride [Moles/Vol] 103 mmol/L Normal 98-109 [facility] Comment on above: Performed By: #### 1 9123-9, CMP, 30111-0, 90414-3, 2777-1, CBCA #### [facility] ([id number]) [address], [address] [place] [address] CO2 [Moles/Vol] 22 mmol/L Normal 22-[address] [facility] Comment on above: Performed By: #### 1 9123-9, CMP, 99568-5, 68853-4, 2777-1, CBCA #### [facility] ([id number]) [address], [address] [place] [address] Creatinine [Mass/Vol] 0.31 mg/dL Low 0.40-1.00 [facility] Comment on above: Result Comment: METH OD TRACEABLE TO IDMS STANDARD Performed By: #### 1 9123-9, CMP, 81774-9, 45211-6, 2777-1, CBCA #### [facility] ([id number]) [address], [address] [place] [address] eGFR (CKD-EPI) NON-RACE DEPENDENT >90 Normal >59 [facility] Comment on above: Result Comment: Reported eGFR is based on the CKD-EPI 2020 equation that does not use a race coefficient. Performed By: #### 1 9123-9, CMP, 30400-8, 49707-3, 2777-1, CBCA #### [facility] ([id number]) [address], [address] [place] [address] Glucose [Mass/Vol] 92 mg/dL Normal 65-99 [facility] Comment on above: Performed By: #### 1 9123-9, CMP, 20676-1, 95332-5, 2777-1, CBCA #### [facility] ([id number]) [address], [address] [place] [address] Potassium [Moles/Vol] 3.8 mmol/L Normal 3.5-5.0 [facility] Comment on above: Performed By: #### 1 9123-9, CMP, 42711-7, 57411-0, 2777-1, CBCA #### [facility] ([id number]) [address], [address] [place] [address] Protein [Mass/Vol] 5.9 g/dL Low 6.0-8.0 [facility] Comment on above: Performed By: #### 1 9123-9, CMP, 40497-1, 36302-8, 2777-1, CBCA #### [facility] ([id number]) [address], [address] [place] [address] Sodium [Moles/Vol] 137 mmol/L Normal 134-146 [facility] Comment on above: Performed By: #### 1 9123-9, CMP, 45844-8, 21644-8, 2777-1, CBCA #### [facility] ([id number]) [address], [address] [place] [address] Urea nitrogen [Mass/Vol] 7 mg/dL Normal 5-[address] [facility] Comment on above: Performed By: #### 1 9123-9, CMP, 32998-5, 57562-9, 2777-1, CBCA #### [facility] ([id number]) [address], [address] [place] [address] DIGOXINon 06-24-2024 Digoxin [Mass/Vol] 1.3 ng/mL Normal 0.8-2.0 [facility] Comment on above: Performed By: #### 1 9123-9, CMP, 05346-5, 10870-4, 2777-1, CBCA #### [facility] ([id number]) [address], [address] [place] [address] Glucose Glucometer (BldC) [M ass/Vol]on 06-24-2024 Glucose [Mass/Vol] 106 mg/dL High 65-99 [facility] Glucose [Mass/Vol] 113 mg/dL High 65-99 [facility] Glucose [Mass/Vol] 116 mg/dL High 65-99 [facility] Glucose [Mass/Vol] 93 mg/dL Normal 65-99 [facility] MAGNESIUMon 06-24-2024 Magnesium [Mass/Vol] 1.6 mg/dL Low 1.8-2.6 [facility] Comment on above: Performed By: #### 1 9123-9, CMP, 02779-2, 02418-7, 2777-1, CBCA #### [facility] ([id number]) [address], [address] [place] [address] POTASSIUMon 06-24-2024 Potassium [Moles/Vol] 3.7 mmol/L Normal 3.5-5.0 [facility] Comment on above: Performed By: #### 1 9123-9, CMP, 33564-5, 57447-7, 2777-1, CBCA #### [facility] ([id number]) [address], [address] [place] [address] COMPREHENSIVE METABOLIC PANE Ab 06-23-2024 Albumin [Mass/Vol] 3.6 g/dL Normal 3.2-5.3 [facility] Comment on above: Performed By: #### 1 9123-9, CMP, 28833-4, 13468-2, 2777-1, CBCA #### [facility] ([id number]) [address], [address] [place] [address] ALP [Catalytic activity/Vol] 74 U/L Normal 39-[address] [facility] Comment on above: Performed By: #### 1 9123-9, CMP, 90160-4, 26550-0, 2777-1, CBCA #### [facility] ([id number]) [address], [address] [place] [address] ALT [Catalytic activity/Vol] 8 U/L Normal 0-[address] [facility] Comment on above: Performed By: #### 1 9123-9, CMP, 47566-1, 78566-0, 2777-1, CBCA #### [facility] ([id number]) [address], [address] [place] [address] Anion gap [Moles/Vol] 13 mmol/L Normal 5-15 [facility] Comment on above: Performed By: #### 1 9123-9, CMP, 06401-5, 34059-1, 2777-1, CBCA #### [facility] ([id number]) [address], [address] [place] [address] AST [Catalytic activity/Vol] 10 U/L Normal 0-[address] [facility] Comment on above: Performed By: #### 1 9123-9, CMP, 15465-8, 88002-6, 2777-1, CBCA #### [facility] ([id number]) [address], [address] [place] [address] Bilirubin [Mass/Vol] 0.3 mg/dL Normal 0.3-1.2 [facility] Comment on above: Performed By: #### 1 9123-9, CMP, 16493-7, 76267-0, 2777-1, CBCA #### [facility] ([id number]) [address], [address] [place] [address] Calcium [Mass/Vol] 9.6 mg/dL Normal 8.5-10.5 [facility] Comment on above: Performed By: #### 1 9123-9, CMP, 05487-7, 82611-0, 2777-1, CBCA #### [facility] ([id number]) [address], [address] [place] [address] Chloride [Moles/Vol] 103 mmol/L Normal 98-109 [facility] Comment on above: Performed By: #### 1 9123-9, CMP, 79836-5, 54701-1, 2777-1, CBCA #### [facility] ([id number]) [address], [address] [place] [address] CO2 [Moles/Vol] 23 mmol/L Normal 22-[address] [facility] Comment on above: Performed By: #### 1 9123-9, CMP, 05164-2, 45017-5, 2777-1, CBCA #### [facility] ([id number]) [address], [address] [place] [address] Creatinine [Mass/Vol] 0.28 mg/dL Low 0.40-1.00 [facility] Comment on above: Result Comment: METH OD TRACEABLE TO IDMS STANDARD Performed By: #### 1 9123-9, CMP, 25166-5, 68773-6, 2777-1, CBCA #### [facility] ([id number]) [address], [address] [place] [address] eGFR (CKD-EPI) NON-RACE DEPENDENT >90 Normal >59 [facility] Comment on above: Result Comment: Reported eGFR is based on the CKD-EPI 2020 equation that does not use a race coefficient. Performed By: #### 1 9123-9, CMP, 43280-1, 46850-6, 2777-1, CBCA #### [facility] ([id number]) [address], [address] [place] [address] Glucose [Mass/Vol] 98 mg/dL Normal 65-99 [facility] Comment on above: Performed By: #### 1 9123-9, CMP, 60713-9, 56160-4, 2777-1, CBCA #### [facility] ([id number]) [address], [address] [place] [address] Potassium [Moles/Vol] 3.6 mmol/L Normal 3.5-5.0 [facility] Comment on above: Performed By: #### 1 9123-9, CMP, 10444-3, 11513-4, 2777-1, CBCA #### [facility] ([id number]) [address], [address] [place] [address] Protein [Mass/Vol] 6.1 g/dL Normal 6.0-8.0 [facility] Comment on above: Performed By: #### 1 9123-9, CMP, 91153-5, 11168-8, 2777-1, CBCA #### [facility] ([id number]) [address], [address] [place] [address] Sodium [Moles/Vol] 139 mmol/L Normal 134-146 [facility] Comment on above: Performed By: #### 1 9123-9, CMP, 35226-1, 54189-6, 2777-1, CBCA #### [facility] ([id number]) [address], [address] [place] [address] Urea nitrogen [Mass/Vol] 5 mg/dL Normal 5-[address] [facility] Comment on above: Performed By: #### 1 9123-9, CMP, 03353-7, 97064-0, 2777-1, CBCA #### [facility] ([id number]) [address], [address] [place] [address] DIGOXINon 06-23-2024 Digoxin [Mass/Vol] 1.5 ng/mL Normal 0.8-2.0 [facility] Comment on above: Performed By: #### 1 9123-9, CMP, 13224-1, 77615-5, 2777-1, CBCA #### [facility] ([id number]) [address], [address] [place] [address] Glucose Glucometer (BldC) [M ass/Vol]on 06-23-2024 Glucose [Mass/Vol] 129 mg/dL High 65-99 [facility] Glucose [Mass/Vol] 127 mg/dL High 65-99 [facility] Glucose [Mass/Vol] 120 mg/dL High 65-99 [facility] Glucose [Mass/Vol] 98 mg/dL Normal 65-99 [facility] MAGNESIUMon 06-23-2024 Magnesium [Mass/Vol] 1.7 mg/dL Low 1.8-2.6 [facility] Comment on above: Performed By: #### 1 9123-9, CMP, 75889-0, 89293-2, 2777-1, CBCA #### [facility] ([id number]) [address], [address] [place] [address] Magnesium [Mass/Vol] 1.8 mg/dL Normal 1.8-2.6 [facility] Comment on above: Performed By: #### 1 9123-9, CMP, 51809-7, 08673-9, 2777-1, CBCA #### [facility] ([id number]) [address], [address] [place] [address] Magnesium [Mass/Vol] 1.7 mg/dL Low 1.8-2.6 [facility] Comment on above: Performed By: #### 1 9123-9, CMP, 47050-4, 02795-3, 2777-1, CBCA #### [facility] ([id number]) [address], [address] [place] [address] POTASSIUMon 06-23-2024 Potassium [Moles/Vol] 3.8 mmol/L Normal 3.5-5.0 [facility] Comment on above: Performed By: #### 1 9123-9, CMP, 98976-5, 71405-7, 2777-1, CBCA #### [facility] ([id number]) [address], [address] [place] [address] Potassium [Moles/Vol] 3.7 mmol/L Normal 3.5-5.0 [facility] Comment on above: Performed By: #### 1 9123-9, CMP, 86318-4, 16956-1, 2777-1, CBCA #### [facility] ([id number]) [address], [address] [place] [address] COMPREHENSIVE METABOLIC PANE Ab 06-22-2024 Albumin [Mass/Vol] 3.5 g/dL Normal 3.2-5.3 [facility] Comment on above: Performed By: #### 1 9123-9, CMP, 52519-5, 41227-6, 2777-1, CBCA #### [facility] ([id number]) [address], [address] [place] [address] ALP [Catalytic activity/Vol] 64 U/L Normal 39-[address] [facility] Comment on above: Performed By: #### 1 9123-9, CMP, 91381-5, 58634-3, 2777-1, CBCA #### [facility] ([id number]) [address], [address] [place] [address] ALT [Catalytic activity/Vol] 8 U/L Normal 0-[address] [facility] Comment on above: Performed By: #### 1 9123-9, CMP, 07553-5, 30917-5, 2777-1, CBCA #### [facility] ([id number]) [address], [address] [place] [address] Anion gap [Moles/Vol] 11 mmol/L Normal 5-15 [facility] Comment on above: Performed By: #### 1 9123-9, CMP, 76747-2, 12972-6, 2777-1, CBCA #### [facility] ([id number]) [address], [address] [place] [address] AST [Catalytic activity/Vol] 12 U/L Normal 0-[address] [facility] Comment on above: Performed By: #### 1 9123-9, CMP, 71582-8, 73494-7, 2777-1, CBCA #### [facility] ([id number]) [address], [address] [place] [address] Bilirubin [Mass/Vol] 0.4 mg/dL Normal 0.3-1.2 [facility] Comment on above: Performed By: #### 1 9123-9, CMP, 98890-3, 47391-8, 2777-1, CBCA #### [facility] ([id number]) [address], [address] [place] [address] Calcium [Mass/Vol] 8.8 mg/dL Normal 8.5-10.5 [facility] Comment on above: Performed By: #### 1 9123-9, CMP, 12160-1, 24856-5, 2777-1, CBCA #### [facility] ([id number]) [address], [address] [place] [address] Chloride [Moles/Vol] 102 mmol/L Normal 98-109 [facility] Comment on above: Performed By: #### 1 9123-9, CMP, 36546-3, 30587-8, 2777-1, CBCA #### [facility] ([id number]) [address], [address] [place] [address] CO2 [Moles/Vol] 22 mmol/L Normal 22-[address] [facility] Comment on above: Performed By: #### 1 9123-9, CMP, 42913-8, 18839-8, 2777-1, CBCA #### [facility] ([id number]) [address], [address] [place] [address] Creatinine [Mass/Vol] 0.30 mg/dL Low 0.40-1.00 [facility] Comment on above: Result Comment: METH OD TRACEABLE TO IDMS STANDARD Performed By: #### 1 9123-9, CMP, 63026-0, 30516-0, 2777-1, CBCA #### [facility] ([id number]) [address], [address] [place] [address] eGFR (CKD-EPI) NON-RACE DEPENDENT >90 Normal >59 [facility] Comment on above: Result Comment: Reported eGFR is based on the CKD-EPI 2020 equation that does not use a race coefficient. Performed By: #### 1 9123-9, CMP, 23221-0, 38465-8, 2777-1, CBCA #### [facility] ([id number]) [address], [address] [place] [address] Glucose [Mass/Vol] 130 mg/dL High 65-99 [facility] Comment on above: Performed By: #### 1 9123-9, CMP, 04603-6, 57387-1, 2777-1, CBCA #### [facility] ([id number]) [address], [address] [place] [address] Potassium [Moles/Vol] 3.9 mmol/L Normal 3.5-5.0 [facility] Comment on above: Performed By: #### 1 9123-9, CMP, 75187-4, 53672-1, 2777-1, CBCA #### [facility] ([id number]) [address], [address] [place] [address] Protein [Mass/Vol] 6.0 g/dL Normal 6.0-8.0 [facility] Comment on above: Performed By: #### 1 9123-9, CMP, 16578-7, 28489-3, 2777-1, CBCA #### [facility] ([id number]) [address], [address] [place] [address] Sodium [Moles/Vol] 135 mmol/L Normal 134-146 [facility] Comment on above: Performed By: #### 1 9123-9, CMP, 29819-4, 72010-9, 2777-1, CBCA #### [facility] ([id number]) [address], [address] [place] [address] Urea nitrogen [Mass/Vol] 7 mg/dL Normal 5-[address] [facility] Comment on above: Performed By: #### 1 9123-9, CMP, 33638-7, 22210-2, 2777-1, CBCA #### [facility] ([id number]) [address], [address] [place] [address] DIGOXINon 06-22-2024 Digoxin [Mass/Vol] 1.6 ng/mL Normal 0.8-2.0 [facility] Comment on above: Performed By: #### 1 9123-9, CMP, 53667-9, 74551-7, 2777-1, CBCA #### [facility] ([id number]) [address], [address] [place] [address] Glucose Glucometer (BldC) [M ass/Vol]on 06-22-2024 Glucose [Mass/Vol] 133 mg/dL High 65-99 [facility] Glucose [Mass/Vol] 133 mg/dL High 65-99 [facility] Glucose [Mass/Vol] 127 mg/dL High 65-99 [facility] Glucose [Mass/Vol] 103 mg/dL High 65-99 [facility] Laboratory comment Víctor (Repo rt)on 06-22-2024 UNLISTED LAB TEST Sent to reference lab Normal [facility] MAGNESIUMon 06-22-2024 Magnesium [Mass/Vol] 1.6 mg/dL Low 1.8-2.6 [facility] Comment on above: Performed By: #### 1 9123-9, CMP, 56968-4, 77534-9, 2777-1, CBCA #### [facility] ([id number]) [address], [address] [place] [address] Magnesium [Mass/Vol] 1.9 mg/dL Normal 1.8-2.6 [facility] Comment on above: Performed By: #### 1 9123-9, [facility], 09382-6, 58420-8, 2777-1, CBCA #### [facility] ([id number]) [address] [place] [address] Magnesium [Mass/Vol] 1.7 mg/dL Low 1.8-2.6 [facility] Comment on above: Performed By: #### 1 9123-9, [facility], 11716-1, 43923-9, 2777-1, CBCA #### [facility] ([id number]) [address], [address] [place] [address] [facility] ORDERon 04-21-2 025 TEST NAME ALBERTO FRANCISCO JIDE ON NO GEL SERUM Normal [facility] TEST RESULT SEE COMMENTS 06/23/2024 12:49 PM Normal [facility] Comment on above: Result Comment: NOTE Test Result Flag Unit RefValue -- Flecainide, S 0.5 mcg/mL REFERENCE VALUE 0.2 - 1.0 (Therapeutic concentration, trough value), >1.0 (Toxic concentration, trough value) ADDITIONAL INFORMATION This test was developed and its performance characteristics determined by [facility] in a manner consistent with CLIA requirements. This test has not been cleared or approved by the U.S. Food and Drug Administration. Test Performed by: [facility] [address] [place] [address] Technical Support Assistant: Mino Cain Ph.D.; CLIA# [id number] Magnesium Ionized ISE (Bld) [Moles/Vol]on 06-22-2024 Magnesium [Moles/Vol] 0.45 mmol/L Normal 0.45-0.74 [facility] Comment on above: Result Comment: NEW REFERENCE RANGE Performed By: #### 1 9123-9, CMP, 21807-6, 13140-8, 2777-1, CBCA #### [facility] ([id number]) [address], [address] [place] [address] POTASSIUMon 06-22-2024 Potassium [Moles/Vol] 4.1 mmol/L Normal 3.5-5.0 [facility] Comment on above: Performed By: #### 1 9123-9, CMP, 49088-2, 39958-7, 2777-1, CBCA #### [facility] ([id number]) [address], [address] [place] [address] COMPREHENSIVE METABOLIC PANE Ab 06-21-2024 Albumin [Mass/Vol] 3.7 g/dL Normal 3.2-5.3 [facility] Comment on above: Performed By: #### 1 9123-9, BMP #### [facility] ([id number]) [address], [address] [place] [address] ALP [Catalytic activity/Vol] 67 U/L Normal 39-[address] [facility] Comment on above: Performed By: #### 1 9123-9, BMP #### [facility] ([id number]) [address], [address] [place] [address] ALT [Catalytic activity/Vol] 8 U/L Normal 0-[address] [facility] Comment on above: Performed By: #### 1 9123-9, BMP #### [facility] ([id number]) [address] [place] [address] Anion gap [Moles/Vol] 11 mmol/L Normal 5-15 [facility] Comment on above: Performed By: #### 1 9123-9, BMP #### [facility] ([id number]) [address], [address] [place] [address] AST [Catalytic activity/Vol] 13 U/L Normal 0-[address] [facility] Comment on above: Performed By: #### 1 9123-9, BMP #### [facility] ([id number]) [address], [address] [place] [address] Bilirubin [Mass/Vol] 0.4 mg/dL Normal 0.3-1.2 [facility] Comment on above: Performed By: #### 1 9123-9, BMP #### [facility] ([id number]) [address], [address] [place] [address] Calcium [Mass/Vol] 10.6 mg/dL High 8.5-10.5 [facility] Comment on above: Performed By: #### 1 9123-9, BMP #### [facility] ([id number]) [address], [address] [place] [address] Chloride [Moles/Vol] 101 mmol/L Normal 98-109 [facility] Comment on above: Performed By: #### 1 9123-9, BMP #### [facility] ([id number]) [address], [address] [place] [address] CO2 [Moles/Vol] 23 mmol/L Normal 22-[address] [facility] Comment on above: Performed By: #### 1 9123-9, BMP #### [facility] ([id number]) [address], [address] [place] [address] Creatinine [Mass/Vol] 0.35 mg/dL Low 0.40-1.00 [facility] Comment on above: Result Comment: METH OD TRACEABLE TO IDMS STANDARD Performed By: #### 1 9123-9, BMP #### [facility] ([id number]) [address], [address] [place] [address] eGFR (CKD-EPI) NON-RACE DEPENDENT >90 Normal >59 [facility] Comment on above: Result Comment: Reported eGFR is based on the CKD-EPI 2020 equation that does not use a race coefficient. Performed By: #### 1 9123-9, BMP #### [facility] ([id number]) [address], [address] [place] [address] Glucose [Mass/Vol] 126 mg/dL High 65-99 [facility] Comment on above: Performed By: #### 1 9123-9, BMP #### [facility] ([id number]) [address], [address] [place] [address] Potassium [Moles/Vol] 3.6 mmol/L Normal 3.5-5.0 [facility] Comment on above: Performed By: #### 1 9123-9, BMP #### [facility] ([id number]) [address], [address] [place] [address] Protein [Mass/Vol] 6.2 g/dL Normal 6.0-8.0 [facility] Comment on above: Performed By: #### 1 9123-9, BMP #### [facility] ([id number]) [address], [address] [place] [address] Sodium [Moles/Vol] 135 mmol/L Normal 134-146 [facility] Comment on above: Performed By: #### 1 9123-9, BMP #### [facility] ([id number]) [address], [address] [place] [address] Urea nitrogen [Mass/Vol] 7 mg/dL Normal 5-[address] [facility] Comment on above: Performed By: #### 1 9123-9, BMP #### [facility] ([id number]) [address], [address] [place] [address] DIGOXINon 06-21-2024 Digoxin [Mass/Vol] 1.9 ng/mL Normal 0.8-2.0 [facility] Comment on above: Performed By: #### 1 9123-9, CMP, 01662-1, 09912-1, 2777-1, CBCA #### [facility] ([id number]) [address], [address] [place] [address] Glucose Glucometer (BldC) [M ass/Vol]on 06-21-2024 Glucose [Mass/Vol] 131 mg/dL High 65-99 [facility] Glucose [Mass/Vol] 131 mg/dL High 65-99 [facility] Glucose [Mass/Vol] 98 mg/dL Normal 65-99 [facility] MAGNESIUMon 06-21-2024 Magnesium [Mass/Vol] 1.8 mg/dL Normal 1.8-2.6 [facility] Comment on above: Performed By: #### 1 9123-9, [facility], 13362-4, 20868-7, 2777-1, CBCA #### [facility] ([id number]) [address], [address] [place] [address] Magnesium [Mass/Vol] 1.5 mg/dL Low 1.8-2.6 [facility] Comment on above: Performed By: #### 1 9123-9, BMP #### [facility] ([id number]) [address], [address] [place] [address] POTASSIUMon 06-21-2024 Potassium [Moles/Vol] 3.9 mmol/L Normal 3.5-5.0 [facility] Comment on above: Performed By: #### 1 9123-9, CMP, 74251-0, 86897-4, 2777-1, CBCA #### [facility] ([id number]) [address], [address] [place] [address] COMPREHENSIVE METABOLIC PANE Ab 06-20-2024 Albumin [Mass/Vol] 3.7 g/dL Normal 3.2-5.3 [facility] Comment on above: Performed By: #### 1 558-6 #### [facility] ([id number]) [address], [address] [place] [address] ALP [Catalytic activity/Vol] 65 U/L Normal 39-[address] [facility] Comment on above: Performed By: #### 1 558-6 #### [facility] ([id number]) [address], [address] [place] [address] ALT [Catalytic activity/Vol] 10 U/L Normal 0-[address] [facility] Comment on above: Performed By: #### 1 558-6 #### [facility] ([id number]) [address], [address] [place] [address] Anion gap [Moles/Vol] 9 mmol/L Normal 5-15 [facility] Comment on above: Performed By: #### 1 558-6 #### [facility] ([id number]) [address], [address] [place] [address] AST [Catalytic activity/Vol] 13 U/L Normal 0-[address] [facility] Comment on above: Performed By: #### 1 558-6 #### [facility] ([id number]) [address], [address] [place] [address] Bilirubin [Mass/Vol] 0.3 mg/dL Normal 0.3-1.2 [facility] Comment on above: Performed By: #### 1 558-6 #### [facility] ([id number]) [address], [address] [place] [address] Calcium [Mass/Vol] 9.4 mg/dL Normal 8.5-10.5 [facility] Comment on above: Performed By: #### 1 558-6 #### [facility] ([id number]) [address], [address] [place] [address] Chloride [Moles/Vol] 104 mmol/L Normal 98-109 [facility] Comment on above: Performed By: #### 1 558-6 #### [facility] ([id number]) [address], [address] [place] [address] CO2 [Moles/Vol] 25 mmol/L Normal 22-[address] [facility] Comment on above: Performed By: #### 1 558-6 #### [facility] ([id number]) [address] [place] [address] Creatinine [Mass/Vol] 0.36 mg/dL Low 0.40-1.00 [facility] Comment on above: Result Comment: METH OD TRACEABLE TO IDMS STANDARD Performed By: #### 1 558-6 #### [facility] ([id number]) [address], [address] [place] [address] eGFR (CKD-EPI) NON-RACE DEPENDENT >90 Normal >59 [facility] Comment on above: Result Comment: Reported eGFR is based on the CKD-EPI 1 equation that does not use a race coefficient. Performed By: #### 1 558-6 #### [facility] ([id number]) [address], [address] [place] [address] Glucose [Mass/Vol] 93 mg/dL Normal 65-99 [facility] Comment on above: Performed By: #### 1 558-6 #### [facility] ([id number]) [address], [address] [place] [address] Potassium [Moles/Vol] 3.9 mmol/L Normal 3.5-5.0 [facility] Comment on above: Performed By: #### 1 558-6 #### [facility] ([id number]) [address], [address] [place] [address] Protein [Mass/Vol] 6.1 g/dL Normal 6.0-8.0 [facility] Comment on above: Performed By: #### 1 558-6 #### [facility] ([id number]) [address], [address] [place] [address] Sodium [Moles/Vol] 138 mmol/L Normal 134-146 [facility] Comment on above: Performed By: #### 1 558-6 #### [facility] ([id number]) [address], [address] [place] [address] Urea nitrogen [Mass/Vol] 6 mg/dL Normal 5-[address] [facility] Comment on above: Performed By: #### 1 558-6 #### [facility] ([id number]) [address], [address] [place] [address] DIGOXINon 06-20-2024 Digoxin [Mass/Vol] 1.9 ng/mL Normal 0.8-2.0 [facility] Comment on above: Performed By: #### 1 9123-9, BMP #### [facility] ([id number]) [address], [address] [place] [address] Glucose Glucometer (BldC) [M ass/Vol]on 06-20-2024 Glucose [Mass/Vol] 130 mg/dL High 65-99 [facility] Glucose [Mass/Vol] 95 mg/dL Normal 65-99 [facility] Glucose [Mass/Vol] 123 mg/dL High 65-99 [facility] MAGNESIUMon 06-20-2024 Magnesium [Mass/Vol] 1.9 mg/dL Normal 1.8-2.6 [facility] Comment on above: Performed By: #### 1 9123-9, BMP #### [facility] ([id number]) [address], [address] [place] [address] Magnesium [Mass/Vol] 1.8 mg/dL Normal 1.8-2.6 [facility] Comment on above: Performed By: #### 1 558-6 #### [facility] ([id number]) [address], [address] [place] [address] Magnesium [Mass/Vol] 1.8 mg/dL Normal 1.8-2.6 [facility] Comment on above: Performed By: #### 1 558-6 #### [facility] ([id number]) [address], [address] [place] [address] POTASSIUMon 06-20-2024 Potassium [Moles/Vol] 3.7 mmol/L Normal 3.5-5.0 [facility] Comment on above: Performed By: #### 1 9123-9, BMP #### [facility] ([id number]) [address], [address] [place] [address] Potassium [Moles/Vol] 3.9 mmol/L Normal 3.5-5.0 [facility] Comment on above: Performed By: #### 1 558-6 #### [facility] ([id number]) [address], [address] [place] [address] COMPREHENSIVE METABOLIC PANE Ab 06-19-2024 Albumin [Mass/Vol] 3.5 g/dL Normal 3.2-5.3 [facility] Comment on above: Performed By: #### 1 9123-9, CMP ####[facility] ([id number])[address], [place] [address] ALP [Catalytic activity/Vol] 58 U/L Normal 39-[address] [facility] Comment on above: Performed By: #### 1 9123-9, CMP ####[facility] ([id number])[address], [place] [address] ALT [Catalytic activity/Vol] 9 U/L Normal 0-[address] [facility] Comment on above: Performed By: #### 1 9123-9, CMP ####[facility] ([id number])[address], [place] [address] Anion gap [Moles/Vol] 10 mmol/L Normal 5-15 [facility] Comment on above: Performed By: #### 1 9123-9, CMP ####[facility] ([id number])[address], [place] [address] AST [Catalytic activity/Vol] 11 U/L Normal 0-[address] [facility] Comment on above: Performed By: #### 1 9123-9, CMP ####[facility] ([id number])[address], [place] [address] Bilirubin [Mass/Vol] 0.2 mg/dL Low 0.3-1.2 [facility] Comment on above: Performed By: #### 1 9123-9, CMP ####[facility] ([id number])[address], [place] [address] Calcium [Mass/Vol] 8.7 mg/dL Normal 8.5-10.5 [facility] Comment on above: Performed By: #### 1 9123-9, CMP ####[facility] ([id number])[address], [place] [address] Chloride [Moles/Vol] 103 mmol/L Normal 98-109 [facility] Comment on above: Performed By: #### 1 9123-9, CMP ####[facility] ([id number])[address], [place] [address] CO2 [Moles/Vol] 24 mmol/L Normal 22-[address] [facility] Comment on above: Performed By: #### 1 9123-9, CMP ####[facility] ([id number])[address] [address], [place] [address] Creatinine [Mass/Vol] 0.37 mg/dL Low 0.40-1.00 [facility] Comment on above: Result Comment: METH OD TRACEABLE TO IDMS STANDARD Performed By: #### 1 9123-9, CMP ####[facility] ([id number])[address] [address] [address] eGFR (CKD-EPI) NON-RACE DEPENDENT >90 Normal >59 [facility] Comment on above: Result Comment: Reported eGFR is based on the CKD-EPI 2020 equation that does not use a race coefficient. Performed By: #### 1 9123-9, CMP ####[facility] ([id number])[address] [address], [place] [address] Glucose [Mass/Vol] 100 mg/dL High 65-99 [facility] Comment on above: Performed By: #### 1 9123-9, CMP ####[facility] ([id number])[address] [address], [place] [address] Potassium [Moles/Vol] 3.7 mmol/L Normal 3.5-5.0 [facility] Comment on above: Performed By: #### 1 9123-9, CMP ####[facility] ([id number])[address] [address], [place] [address] Protein [Mass/Vol] 5.9 g/dL Low 6.0-8.0 [facility] Comment on above: Performed By: #### 1 9123-9, CMP ####[facility] ([id number])[address] [address], [place] [address] Sodium [Moles/Vol] 137 mmol/L Normal 134-146 [facility] Comment on above: Performed By: #### 1 9123-9, CMP ####[facility] ([id number])[address] [place] [address] Urea nitrogen [Mass/Vol] 7 mg/dL Normal 5-[address] [facility] Comment on above: Performed By: #### 1 9123-9, CMP ####[facility] ([id number])[address] [place] [address] DIGOXINon 06-19-2024 Digoxin [Mass/Vol] 1.6 ng/mL Normal 0.8-2.0 [facility] Comment on above: Performed By: #### 1 0535-3 ####[facility] ([id number])[address] [place] [address] Glucose Glucometer (BldC) [M ass/Vol]on 06-19-2024 Glucose [Mass/Vol] 117 mg/dL High 65-99 [facility] Glucose [Mass/Vol] 108 mg/dL High 65-99 [facility] Glucose [Mass/Vol] 91 mg/dL Normal 65-99 [facility] Glucose [Mass/Vol] 86 mg/dL Normal 65-99 [facility] MAGNESIUMon 06-19-2024 Magnesium [Mass/Vol] 1.7 mg/dL Low 1.8-2.6 [facility] Comment on above: Performed By: #### 1 558-6 #### [facility] ([id number]) [address] [place] [address] Magnesium [Mass/Vol] 1.9 mg/dL Normal 1.8-2.6 [facility] Comment on above: Performed By: #### 1 9123-9 ####[facility] ([id number])[address] [place] [address] Magnesium [Mass/Vol] 1.8 mg/dL Normal 1.8-2.6 [facility] Comment on above: Performed By: #### 1 9123-9, CMP ####[facility] ([id number])[address], [place] [address] POTASSIUMon 06-19-2024 Potassium [Moles/Vol] 3.5 mmol/L Normal 3.5-5.0 [facility] Comment on above: Performed By: #### 1 558-6 #### [facility] ([id number]) [address] [place] [address] Potassium [Moles/Vol] 3.7 mmol/L Normal 3.5-5.0 [facility] Comment on above: Performed By: #### 2 823-3 ####[facility] ([id number])[address], [place] [address] COMPREHENSIVE METABOLIC PANE Ab 06-18-2024 Albumin [Mass/Vol] 3.6 g/dL Normal 3.2-5.3 [facility] Comment on above: Performed By: #### D GODOY #### [facility] ([id number]) [address] [place] [address] ALP [Catalytic activity/Vol] 63 U/L Normal 39-[address] [facility] Comment on above: Performed By: #### D GODOY #### [facility] ([id number]) [address] [place] [address] ALT [Catalytic activity/Vol] 10 U/L Normal 0-[address] [facility] Comment on above: Performed By: #### D GODOY #### [facility] ([id number]) [address] [place] [address] Anion gap [Moles/Vol] 11 mmol/L Normal 5-15 [facility] Comment on above: Performed By: #### D GODOY #### [facility] ([id number]) [address] [place] [address] AST [Catalytic activity/Vol] 12 U/L Normal 0-[address] [facility] Comment on above: Performed By: #### D GODOY #### [facility] ([id number]) [address] [place] [address] Bilirubin [Mass/Vol] 0.3 mg/dL Normal 0.3-1.2 [facility] Comment on above: Performed By: #### D GODOY #### [facility] ([id number]) [address] [place] [address] Calcium [Mass/Vol] 8.8 mg/dL Normal 8.5-10.5 [facility] Comment on above: Performed By: #### D GODOY #### [facility] ([id number]) [address] [place] [address] Chloride [Moles/Vol] 104 mmol/L Normal 98-109 [facility] Comment on above: Performed By: #### D GODOY #### [facility] ([id number]) [address] [place] [address] CO2 [Moles/Vol] 22 mmol/L Normal 22-[address] [facility] Comment on above: Performed By: #### D GODOY #### [facility] ([id number]) [address] [place] [address] Creatinine [Mass/Vol] 0.34 mg/dL Low 0.40-1.00 [facility] Comment on above: Result Comment: METH OD TRACEABLE TO IDMS STANDARD Performed By: #### D GODOY #### [facility] ([id number]) [address] [place] [address] eGFR (CKD-EPI) NON-RACE DEPENDENT >90 Normal >59 [facility] Comment on above: Result Comment: Reported eGFR is based on the CKD-EPI 2020 equation that does not use a race coefficient. Performed By: #### D GODOY #### [facility] ([id number]) [address] [place] [address] Glucose [Mass/Vol] 105 mg/dL High 65-99 [facility] Comment on above: Performed By: #### D GODOY #### [facility] ([id number]) [address] [place] [address] Potassium [Moles/Vol] 3.6 mmol/L Normal 3.5-5.0 [facility] Comment on above: Performed By: #### D GODOY #### [facility] ([id number]) [address] [place] [address] Protein [Mass/Vol] 5.9 g/dL Low 6.0-8.0 [facility] Comment on above: Performed By: #### D GODOY #### [facility] ([id number]) [address] [place] [address] Sodium [Moles/Vol] 137 mmol/L Normal 134-146 [facility] Comment on above: Performed By: #### D GODOY #### [facility] ([id number]) [address] [place] [address] Urea nitrogen [Mass/Vol] 7 mg/dL Normal 5-[address] [facility] Comment on above: Performed By: #### D GODOY #### [facility] ([id number]) [address] [place] [address] DIGOXINon 06-18-2024 Digoxin [Mass/Vol] 1.2 ng/mL Normal 0.8-2.0 [facility] Comment on above: Performed By: #### D GODOY #### [facility] ([id number]) [address] [place] [address] Glucose Glucometer (BldC) [M ass/Vol]on 06-18-2024 Glucose [Mass/Vol] 121 mg/dL High 65-99 [facility] Glucose [Mass/Vol] 141 mg/dL High 65-99 [facility] Glucose [Mass/Vol] 126 mg/dL High 65-99 [facility] Glucose [Mass/Vol] 112 mg/dL High 65-99 [facility] Laboratory comment Víctor (Antoni carmona)on 06-18-2024 UNLISTED LAB TEST Sent to reference lab Normal [facility] MAGNESIUMon 06-18-2024 Magnesium [Mass/Vol] 1.9 mg/dL Normal 1.8-2.6 [facility] Comment on above: Performed By: #### 1 9123-9, 58074-7, 2823-3 ####[facility] ([id number])[address], [address], [place] [address] Magnesium [Mass/Vol] 1.8 mg/dL Normal 1.8-2.6 [facility] Comment on above: Performed By: #### D GODOY #### [facility] ([id number]) [address], [address] [place] [address] [facility] ORDERon 025 TEST NAME FLEC FLECAINIDE RED SERUM Normal [facility] TEST RESULT SEE COMMENTS 06/22/2024 06:36 PM Normal [facility] Comment on above: Result Comment: NOTE Test Result Flag Unit RefValue -- Flecainide, S 0.6 mcg/mL REFERENCE VALUE 0.2 - 1.0 (Therapeutic concentration, trough value), >1.0 (Toxic concentration, trough value) ADDITIONAL INFORMATION This test was developed and its performance characteristics determined by [facility] in a manner consistent with CLIA requirements. This test has not been cleared or approved by the U.S. Food and Drug Administration. Test Performed by: [facility] [address] [place] [address] Technical Support Assistant: Mino Cain Ph.D.; CLIA# [id number] POTASSIUMon 06-18-2024 Potassium [Moles/Vol] 3.6 mmol/L Normal 3.5-5.0 [facility] Comment on above: Performed By: #### D GODOY #### [facility] ([id number]) [address], [address] [place] [address] COMPREHENSIVE METABOLIC PANE Ab 06-17-2024 Albumin [Mass/Vol] 3.7 g/dL Normal 3.2-5.3 [facility] Comment on above: Performed By: #### 1 9123-9, CMP, 56075-0, 86363-0, 2777-1, CBCA #### [facility] ([id number]) [address], [address] [place] [address] ALP [Catalytic activity/Vol] 64 U/L Normal 39-[address] [facility] Comment on above: Performed By: #### 1 9123-9, CMP, 71315-6, 53620-8, 2777-1, CBCA #### [facility] ([id number]) [address], [address] [place] [address] ALT [Catalytic activity/Vol] 9 U/L Normal 0-[address] [facility] Comment on above: Performed By: #### 1 9123-9, CMP, 57087-5, 39067-0, 2777-1, CBCA #### [facility] ([id number]) [address], [address] [place] [address] Anion gap [Moles/Vol] 14 mmol/L Normal 5-15 [facility] Comment on above: Performed By: #### 1 9123-9, CMP, 24391-8, 09270-6, 2777-1, CBCA #### [facility] ([id number]) [address], [address] [place] [address] AST [Catalytic activity/Vol] 11 U/L Normal 0-[address] [facility] Comment on above: Performed By: #### 1 9123-9, CMP, 23571-7, 75161-6, 2777-1, CBCA #### [facility] ([id number]) [address], [address] [place] [address] Bilirubin [Mass/Vol] 0.4 mg/dL Normal 0.3-1.2 [facility] Comment on above: Performed By: #### 1 9123-9, CMP, 81455-2, 09855-2, 2777-1, CBCA #### [facility] ([id number]) [address], [address] [place] [address] Calcium [Mass/Vol] 9.2 mg/dL Normal 8.5-10.5 [facility] Comment on above: Performed By: #### 1 9123-9, CMP, 62090-8, 92183-9, 2777-1, CBCA #### [facility] ([id number]) [address], [address] [place] [address] Chloride [Moles/Vol] 103 mmol/L Normal 98-109 [facility] Comment on above: Performed By: #### 1 9123-9, CMP, 20990-1, 22029-5, 2777-1, CBCA #### [facility] ([id number]) [address], [address] [place] [address] CO2 [Moles/Vol] 20 mmol/L Low 22-[address] [facility] Comment on above: Performed By: #### 1 9123-9, CMP, 18509-0, 59217-0, 2777-1, CBCA #### [facility] ([id number]) [address], [address] [place] [address] Creatinine [Mass/Vol] 0.34 mg/dL Low 0.40-1.00 [facility] Comment on above: Result Comment: METH OD TRACEABLE TO IDMS STANDARD Performed By: #### 1 9123-9, CMP, 87995-7, 61060-3, 2777-1, CBCA #### [facility] ([id number]) [address], [address] [place] [address] eGFR (CKD-EPI) NON-RACE DEPENDENT >90 Normal >59 [facility] Comment on above: Result Comment: Reported eGFR is based on the CKD-EPI 2020 equation that does not use a race coefficient. Performed By: #### 1 9123-9, CMP, 95505-4, 57625-0, 2777-1, CBCA #### [facility] ([id number]) [address], [address] [place] [address] Glucose [Mass/Vol] 115 mg/dL High 65-99 [facility] Comment on above: Performed By: #### 1 9123-9, CMP, 77612-8, 70437-8, 2777-1, CBCA #### [facility] ([id number]) [address] [address] [place] [address] Potassium [Moles/Vol] 3.5 mmol/L Normal 3.5-5.0 [facility] Comment on above: Performed By: #### 1 9123-9, CMP, 83751-2, 44404-4, 2777-1, CBCA #### [facility] ([id number]) [address], [address] [place] [address] Protein [Mass/Vol] 6.1 g/dL Normal 6.0-8.0 [facility] Comment on above: Performed By: #### 1 9123-9, CMP, 94453-9, 38147-8, 2777-1, CBCA #### [facility] ([id number]) [address], [address] [place] [address] Sodium [Moles/Vol] 137 mmol/L Normal 134-146 [facility] Comment on above: Performed By: #### 1 9123-9, CMP, 76139-9, 14305-4, 2777-1, CBCA #### [facility] ([id number]) [address], [address] [place] [address] Urea nitrogen [Mass/Vol] 7 mg/dL Normal 5-[address] [facility] Comment on above: Performed By: #### 1 9123-9, CMP, 15349-1, 40347-2, 2777-1, CBCA #### [facility] ([id number]) [address], [address] [place] [address] DIGOXINon 06-17-2024 Digoxin [Mass/Vol] 1.1 ng/mL Normal 0.8-2.0 [facility] Comment on above: Performed By: #### 1 9123-9, CMP, 52675-5, 88768-3, 2777-1, CBCA #### [facility] ([id number]) [address], [address] [place] [address] Glucose Glucometer (BldC) [M ass/Vol]on 06-17-2024 Glucose [Mass/Vol] 137 mg/dL High 65-99 [facility] Glucose [Mass/Vol] 147 mg/dL High 65-99 [facility] Glucose [Mass/Vol] 125 mg/dL High 65-99 [facility] Glucose [Mass/Vol] 106 mg/dL High 65-99 [facility] MAGNESIUMon 06-17-2024 Magnesium [Mass/Vol] 1.7 mg/dL Low 1.8-2.6 [facility] Comment on above: Performed By: #### D GODOY #### [facility] ([id number]) [address], [address] [place] [address] POTASSIUMon 06-17-2024 Potassium [Moles/Vol] 4.0 mmol/L Normal 3.5-5.0 [facility] Comment on above: Performed By: #### D GODOY #### [facility] ([id number]) [address], [address] [place] [address] Potassium [Moles/Vol] 3.5 mmol/L Normal 3.5-5.0 [facility] Comment on above: Performed By: #### 1 9123-9, CMP, 44839-9, 73070-3, 2777-1, CBCA #### [facility] ([id number]) [address], [address] [place] [address] COMPREHENSIVE METABOLIC PANE Ab 06-16-2024 Albumin [Mass/Vol] 3.6 g/dL Normal 3.2-5.3 [facility] Comment on above: Performed By: #### 1 9123-9, CMP, 60151-7, 05575-5, 2777-1, CBCA #### [facility] ([id number]) [address], [address] [place] [address] ALP [Catalytic activity/Vol] 63 U/L Normal 39-[address] [facility] Comment on above: Performed By: #### 1 9123-9, CMP, 92582-6, 95093-6, 2777-1, CBCA #### [facility] ([id number]) [address], [address] [place] [address] ALT [Catalytic activity/Vol] 8 U/L Normal 0-[address] [facility] Comment on above: Performed By: #### 1 9123-9, CMP, 46126-0, 52447-9, 2777-1, CBCA #### [facility] ([id number]) [address], [address] [place] [address] Anion gap [Moles/Vol] 11 mmol/L Normal 5-15 [facility] Comment on above: Performed By: #### 1 9123-9, CMP, 79449-6, 37315-9, 2777-1, CBCA #### [facility] ([id number]) [address], [address] [place] [address] AST [Catalytic activity/Vol] 15 U/L Normal 0-[address] [facility] Comment on above: Performed By: #### 1 9123-9, CMP, 46287-4, 02239-2, 2777-1, CBCA #### [facility] ([id number]) [address], [address] [place] [address] Bilirubin [Mass/Vol] 0.4 mg/dL Normal 0.3-1.2 [facility] Comment on above: Performed By: #### 1 9123-9, CMP, 41842-5, 21284-6, 2777-1, CBCA #### [facility] ([id number]) [address], [address] [place] [address] Calcium [Mass/Vol] 8.9 mg/dL Normal 8.5-10.5 [facility] Comment on above: Performed By: #### 1 9123-9, CMP, 37185-7, 57857-0, 2777-1, CBCA #### [facility] ([id number]) [address], [address] [place] [address] Chloride [Moles/Vol] 104 mmol/L Normal 98-109 [facility] Comment on above: Performed By: #### 1 9123-9, CMP, 45439-0, 91633-7, 2777-1, CBCA #### [facility] ([id number]) [address], [address] [place] [address] CO2 [Moles/Vol] 22 mmol/L Normal 22-[address] [facility] Comment on above: Performed By: #### 1 9123-9, CMP, 58360-9, 58691-0, 2777-1, CBCA #### [facility] ([id number]) [address], [facility] [address] [place] [address] Creatinine [Mass/Vol] 0.33 mg/dL Low 0.40-1.00 [facility] Comment on above: Result Comment: METH OD TRACEABLE TO IDMS STANDARD Performed By: #### 1 9123-9, CMP, 01964-8, 80242-3, 2777-1, CBCA #### [facility] ([id number]) [address], [facility] [address] [place] [address] eGFR (CKD-EPI) NON-RACE DEPENDENT >90 Normal >59 [facility] Comment on above: Result Comment: Reported eGFR is based on the CKD-EPI 2020 equation that does not use a race coefficient. Performed By: #### 1 9123-9, ROSA, 94502-4, 03195-1, 2777-1, CBCA #### [facility] ([id number]) [address], [address] [place] [address] Glucose [Mass/Vol] 99 mg/dL Normal 65-99 [facility] Comment on above: Performed By: #### 1 9123-9, CMP, 93435-4, 52807-6, 2777-1, CBCA #### [facility] ([id number]) [address] [address] [place] [address] Potassium [Moles/Vol] 3.5 mmol/L Normal 3.5-5.0 [facility] Comment on above: Performed By: #### 1 9123-9, CMP, 56568-0, 70498-2, 2777-1, CBCA #### [facility] ([id number]) [address] [place] [address] Protein [Mass/Vol] 6.0 g/dL Normal 6.0-8.0 [facility] Comment on above: Performed By: #### 1 9123-9, CMP, 11400-4, 66706-9, 2777-1, CBCA #### [facility] ([id number]) [address], [address] [place] [address] Sodium [Moles/Vol] 137 mmol/L Normal 134-146 [facility] Comment on above: Performed By: #### 1 9123-9, [facility], 64849-8, 57923-7, 2777-1, CBCA #### [facility] ([id number]) [address], [address] [place] [address] Urea nitrogen [Mass/Vol] 8 mg/dL Normal 5-[address] [facility] Comment on above: Performed By: #### 1 9123-9, [facility], 25409-2, 30196-8, 2777-1, CBCA #### [facility] ([id number]) [address], [address] [place] [address] Glucose Glucometer (BldC) [M ass/Vol]on 06-16-2024 Glucose [Mass/Vol] 141 mg/dL High 65-99 [facility] Glucose [Mass/Vol] 119 mg/dL High 65-99 [facility] Glucose [Mass/Vol] 111 mg/dL High 65-99 [facility] Glucose [Mass/Vol] 108 mg/dL High 65-99 [facility] Laboratory comment Víctor (Antoni carmona)on 06-16-2024 UNLISTED LAB TEST Sent to reference lab Normal [facility] GENERIC ORDERon 025 TEST NAME [facility] Normal [facility] TEST RESULT SEE COMMENTS 06/18/2024 03:[address] [facility] Comment on above: Result Comment: NOTE Test Result Flag Unit RefValue -- Flecainide, S 0.3 mcg/mL REFERENCE VALUE 0.2 - 1.0 (Therapeutic concentration, trough value), >1.0 (Toxic concentration, trough value) ADDITIONAL INFORMATION This test was developed and its performance characteristics determined by [facility] in a manner consistent with CLIA requirements. This test has not been cleared or approved by the U.S. Food and Drug Administration. Test Performed by: [facility] [address] [place] [address] Technical Support Assistant: Mino Cain Ph.D.; CLIA# [id number] DIGOXINon 06-15-2024 Digoxin [Mass/Vol] 0.4 ng/mL Low 0.8-2.0 [facility] Comment on above: Performed By: #### 1 9123-9, CMP, 46939-2, 68538-4, 2777-1, CBCA #### [facility] ([id number]) [address] [place] [address] [address] [place] [address] Glucose Glucometer (BldC) [M ass/Vol]on 06-15-2024 Glucose [Mass/Vol] 111 mg/dL High 65-99 [facility] Glucose [Mass/Vol] 106 mg/dL High 65-99 [facility] Glucose [Mass/Vol] 119 mg/dL High 65-99 [facility] Glucose [Mass/Vol] 91 mg/dL Normal 65-99 [facility] MAGNESIUMon 06-15-2024 Magnesium [Mass/Vol] 1.9 mg/dL Normal 1.8-2.6 [facility] Comment on above: Performed By: #### 1 9123-9, CMP, 36930-1, 67734-3, 2777-1, CBCA #### [facility] ([id number]) [address], [address] [place] [address] Magnesium [Mass/Vol] 1.7 mg/dL Low 1.8-2.6 [facility] Comment on above: Performed By: #### 1 9123-9, CMP, 29529-9, 72918-3, 2777-1, CBCA #### [facility] ([id number]) [address] [place] [address] Magnesium [Mass/Vol] 1.9 mg/dL Normal 1.8-2.6 [facility] Comment on above: Performed By: #### 1 9123-9, CMP, 25102-3, 94328-3, 2777-1, CBCA #### [facility] ([id number]) [address], [address] [place] [address] [facility] ORDERon 04-14-2 025 TEST NAME [facility] Normal [facility] TEST RESULT SEE COMMENTS 06/16/2024 02:04 PM Normal [facility] Comment on above: Result Comment: NOTE Test Result Flag Unit RefValue -- Flecainide, S 0.4 mcg/mL REFERENCE VALUE 0.2 - 1.0 (Therapeutic concentration, trough value), >1.0 (Toxic concentration, trough value) ADDITIONAL INFORMATION This test was developed and its performance characteristics determined by [facility] in a manner consistent with CLIA requirements. This test has not been cleared or approved by the U.S. Food and Drug Administration. Test Performed by: [facility] [address] [place] [address] Technical Support Assistant: Mino Cain Ph.D.; CLIA# [id number] POTASSIUMon 06-15-2024 Potassium [Moles/Vol] 3.8 mmol/L Normal 3.5-5.0 [facility] Comment on above: Performed By: #### 1 9123-9, CMP, 80848-3, 16265-7, 2777-1, CBCA #### [facility] ([id number]) [address], [address] [place] [address] Potassium [Moles/Vol] 3.7 mmol/L Normal 3.5-5.0 [facility] Comment on above: Performed By: #### 1 9123-9, CMP, 84139-3, 09968-5, 2777-1, CBCA #### [facility] ([id number]) [address], [address] [place] [address] BASIC METABOLIC PANLon 06-14 Anion gap [Moles/Vol] 10 mmol/L Normal 5-15 [facility] Comment on above: Performed By: #### 1 9123-9, CMP, 60388-4, 83235-2, 2777-1, CBCA #### [facility] ([id number]) [address], [address] [place] [address] Calcium [Mass/Vol] 9.1 mg/dL Normal 8.5-10.5 [facility] Comment on above: Performed By: #### 1 9123-9, CMP, 68124-0, 18519-5, 2777-1, CBCA #### [facility] ([id number]) [address] [place] [address] Chloride [Moles/Vol] 106 mmol/L Normal 98-109 [facility] Comment on above: Performed By: #### 1 9123-9, CMP, 01257-6, 99835-9, 2777-1, CBCA #### [facility] ([id number]) [address] [address] CO2 [Moles/Vol] 24 mmol/L Normal 22-[address] [facility] Comment on above: Performed By: #### 1 9123-9, CMP, 74223-1, 76372-9, 2777-1, CBCA #### [facility] ([id number]) [address] [address] Creatinine [Mass/Vol] 0.41 mg/dL Normal 0.40-1.00 [facility] Comment on above: Result Comment: METH OD TRACEABLE TO IDMS STANDARD Performed By: #### 1 9123-9, [facility], 92935-3, 43187-1, 2777-1, CBCA #### [facility] ([id number]) [address], [address] [address] eGFR (CKD-EPI) NON-RACE DEPENDENT >90 Normal >59 [facility] Comment on above: Result Comment: Reported eGFR is based on the CKD-EPI 2020 equation that does not use a race coefficient. Performed By: #### 1 9123-9, CMP, 99540-1, 62291-5, 2777-1, CBCA #### [facility] ([id number]) [address] [address] Glucose [Mass/Vol] 97 mg/dL Normal 65-99 [facility] Comment on above: Performed By: #### 1 9123-9, CMP, 01317-7, 69802-6, 2777-1, CBCA #### [facility] ([id number]) [address] [address] Potassium [Moles/Vol] 3.8 mmol/L Normal 3.5-5.0 [facility] Comment on above: Performed By: #### 1 9123-9, CMP, 07305-8, 99403-1, 2777-1, CBCA #### [facility] ([id number]) [address], [address] [place] [address] Sodium [Moles/Vol] 140 mmol/L Normal 134-146 [facility] Comment on above: Performed By: #### 1 9123-9, CMP, 59322-9, 47948-5, 2777-1, CBCA #### [facility] ([id number]) [address], [address] [place] [address] Urea nitrogen [Mass/Vol] 8 mg/dL Normal 5-[address] [facility] Comment on above: Performed By: #### 1 9123-9, CMP, 97005-3, 49230-5, 2777-1, CBCA #### [facility] ([id number]) [address], [address] [place] [address] Glucose Glucometer (BldC) [M ass/Vol]on 06-14-2024 Glucose [Mass/Vol] 114 mg/dL High 65-99 [facility] Glucose [Mass/Vol] 102 mg/dL High 65-99 [facility] Glucose [Mass/Vol] 111 mg/dL High 65-99 [facility] Glucose [Mass/Vol] 127 mg/dL High 65-99 [facility] MAGNESIUMon 06-14-2024 Magnesium [Mass/Vol] 1.7 mg/dL Low 1.8-2.6 [facility] Comment on above: Performed By: #### 1 9123-9, CMP, 70149-2, 67865-5, 2777-1, CBCA #### [facility] ([id number]) [address], [address] [place] [address] Magnesium [Mass/Vol] 1.6 mg/dL Low 1.8-2.6 [facility] Comment on above: Performed By: #### 1 9123-9, CMP, 23745-2, 69758-8, 2777-1, CBCA #### [facility] ([id number]) [address], [address] [place] [address] POTASSIUMon 06-14-2024 Potassium [Moles/Vol] 3.5 mmol/L Normal 3.5-5.0 [facility] Comment on above: Performed By: #### 1 9123-9, CMP, 50098-1, 14505-0, 2777-1, CBCA #### [facility] ([id number]) [address], [address] [place] [address] Potassium [Moles/Vol] 3.5 mmol/L Normal 3.5-5.0 [facility] Comment on above: Performed By: #### 1 9123-9, CMP, 79342-4, 28557-4, 2777-1, CBCA #### [facility] ([id number]) [address], [address] [place] [address] BASIC METABOLIC PANLon 06-13 Anion gap [Moles/Vol] 10 mmol/L Normal 5-15 [facility] Comment on above: Performed By: #### 1 9123-9, CMP, 32633-3, 31427-9, 2777-1, CBCA #### [facility] ([id number]) [address], [address] [place] [address] Calcium [Mass/Vol] 8.9 mg/dL Normal 8.5-10.5 [facility] Comment on above: Performed By: #### 1 9123-9, CMP, 03380-6, 87828-0, 2777-1, CBCA #### [facility] ([id number]) [address], [address] [place] [address] Chloride [Moles/Vol] 106 mmol/L Normal 98-109 [facility] Comment on above: Performed By: #### 1 9123-9, CMP, 02736-9, 06951-5, 2777-1, CBCA #### [facility] ([id number]) [address] [address] [place] [address] CO2 [Moles/Vol] 24 mmol/L Normal 22-[address] [facility] Comment on above: Performed By: #### 1 9123-9, CMP, 97558-7, 01627-4, 2777-1, CBCA #### [facility] ([id number]) [address] [address] Creatinine [Mass/Vol] 0.42 mg/dL Normal 0.40-1.00 [facility] Comment on above: Result Comment: METH OD TRACEABLE TO IDMS STANDARD Performed By: #### 1 9123-9, CMP, 02371-5, 02959-6, 2777-1, CBCA #### [facility] ([id number]) [address] [address] eGFR (CKD-EPI) NON-RACE DEPENDENT >90 Normal >59 [facility] Comment on above: Result Comment: Reported eGFR is based on the CKD-EPI 2020 equation that does not use a race coefficient. Performed By: #### 1 9123-9, CMP, 96828-9, 48330-3, 2777-1, CBCA #### [facility] ([id number]) [address] [address] Glucose [Mass/Vol] 95 mg/dL Normal 65-99 [facility] Comment on above: Performed By: #### 1 9123-9, CMP, 36513-3, 34456-7, 2777-1, CBCA #### [facility] ([id number]) [address] [address] Potassium [Moles/Vol] 3.4 mmol/L Low 3.5-5.0 [facility] Comment on above: Performed By: #### 1 9123-9, CMP, 64233-4, 36222-3, 2777-1, CBCA #### [facility] ([id number]) [address], [address] [place] [address] Sodium [Moles/Vol] 140 mmol/L Normal 134-146 [facility] Comment on above: Performed By: #### 1 9123-9, CMP, 32109-1, 72938-4, 2777-1, CBCA #### [facility] ([id number]) [address], [address] [place] [address] Urea nitrogen [Mass/Vol] 6 mg/dL Normal 5-[address] [facility] Comment on above: Performed By: #### 1 9123-9, CMP, 81086-4, 86322-4, 2777-1, CBCA #### [facility] ([id number]) [address], [address] [place] [address] Glucose Glucometer (dC) [M ass/Vol]on 06-13-2024 Glucose [Mass/Vol] 100 mg/dL High 65-99 [facility] Glucose [Mass/Vol] 126 mg/dL High 65-99 [facility] Glucose [Mass/Vol] 123 mg/dL High 65-99 [facility] Glucose [Mass/Vol] 94 mg/dL Normal 65-99 [facility] MAGNESIUMon 06-13-2024 Magnesium [Mass/Vol] 2.1 mg/dL Normal 1.8-2.6 [facility] Comment on above: Performed By: #### 1 9123-9, CMP, 47647-9, 25212-8, 2777-1, CBCA #### [facility] ([id number]) [address], [address] [place] [address] Magnesium [Mass/Vol] 1.5 mg/dL Low 1.8-2.6 [facility] Comment on above: Performed By: #### 1 9123-9, CMP, 39136-0, 82311-0, 2777-1, CBCA #### [facility] ([id number]) [address], [address] [place] [address] POTASSIUMon 06-13-2024 Potassium [Moles/Vol] 3.5 mmol/L Normal 3.5-5.0 [facility] Comment on above: Performed By: #### 1 9123-9, CMP, 22221-6, 86680-3, 2777-1, CBCA #### [facility] ([id number]) [address], [address] [place] [address] BASIC METABOLIC PANLon 06-12 Anion gap [Moles/Vol] 10 mmol/L Normal 5-15 [facility] Comment on above: Performed By: #### 1 9123-9, BMP #### [facility] ([id number]) [address], [address] [place] [address] Calcium [Mass/Vol] 9.1 mg/dL Normal 8.5-10.5 [facility] Comment on above: Performed By: #### 1 9123-9, BMP #### [facility] ([id number]) [address], [address] [place] [address] Chloride [Moles/Vol] 107 mmol/L Normal 98-109 [facility] Comment on above: Performed By: #### 1 9123-9, BMP #### [facility] ([id number]) [address], [address] [place] [address] CO2 [Moles/Vol] 24 mmol/L Normal 22-[address] [facility] Comment on above: Performed By: #### 1 9123-9, BMP #### [facility] ([id number]) [address], [address] [place] [address] Creatinine [Mass/Vol] 0.42 mg/dL Normal 0.40-1.00 [facility] Comment on above: Result Comment: METH OD TRACEABLE TO IDMS STANDARD Performed By: #### 1 9123-9, BMP #### [facility] ([id number]) [address], [address] [place] [address] eGFR (CKD-EPI) NON-RACE DEPENDENT >90 Normal >59 [facility] Comment on above: Result Comment: Reported eGFR is based on the CKD-EPI 2020 equation that does not use a race coefficient. Performed By: #### 1 9123-9, BMP #### [facility] ([id number]) [address], [address] [place] [address] Glucose [Mass/Vol] 94 mg/dL Normal 65-99 [facility] Comment on above: Performed By: #### 1 9123-9, BMP #### [facility] ([id number]) [address], [facility] [address] [place] [address] Potassium [Moles/Vol] 3.3 mmol/L Low 3.5-5.0 [facility] Comment on above: Performed By: #### 1 9123-9, BMP #### [facility] ([id number]) [address], [address] [place] [address] Sodium [Moles/Vol] 141 mmol/L Normal 134-146 [facility] Comment on above: Performed By: #### 1 9123-9, BMP #### [facility] ([id number]) [address], [facility] [address] [place] [address] Urea nitrogen [Mass/Vol] 5 mg/dL Normal 5-[address] [facility] Comment on above: Performed By: #### 1 9123-9, BMP #### [facility] ([id number]) [address], [address] [place] [address] DIGOXINon 06-12-2024 Digoxin [Mass/Vol] 0.4 ng/mL Low 0.8-2.0 [facility] Comment on above: Performed By: #### 1 9123-9, [facility], 40424-1, 62895-3, 2777-1, CBCA #### [facility] ([id number]) [address], [address] [place] [address] Glucose 1 Hr post dose gluco se [Mass/Vol]on 06-12-2024 1ST HR GTT 187 mg/dL High 120-170 [facility] Comment on above: Performed By: #### 1 9123-9, [facility], 89506-5, 71915-2, 2777-1, CBCA #### [facility] ([id number]) [address], [address] [place] [address] Glucose 2 Hr post 100 g gluc ose PO [Mass/Vol]on 06-12-2024 2ND HR GTT 100GM LOAD 175 mg/dL High 70-139 [facility] Comment on above: Result Comment: Fourth International Workshop Conference: Recommendations and Rationale for Screening and Diagnosis of Gestational Diabetes Mellitus 2 or more of the following must be met or exceeded for a positive diagnosis. FASTING >=95mg/dL 1hr post 100g load >=180mg/dL 2hr post 100g load >=155mg/dL 3hr post 100g load >=140mg/dL Performed By: #### 1 9123-9, [facility], 00109-3, 00064-2, 2777-1, CBCA #### [facility] ([id number]) [address], [address] [place] [address] Glucose 3 Hr post dose gluco se [Mass/Vol]on 06-12-2024 3RD HR GTT 123 mg/dL High 65-99 [facility] Comment on above: Performed By: #### 1 9123-9, [facility], 87190-7, 01010-6, 2777-1, CBCA #### [facility] ([id number]) [address] [place] [address] Glucose Glucometer (BldC) [M ass/Vol]on 06-12-2024 Glucose [Mass/Vol] 118 mg/dL High 65-99 [facility] Glucose [Mass/Vol] 114 mg/dL High 65-99 [facility] Glucose [Mass/Vol] 102 mg/dL High 65-99 [facility] Glucose post fast [Mass/Vol] on 06-12-2024 FASTING GTT 95 mg/dL Normal 65-99 [facility] Comment on above: Performed By: #### 1 558-6 #### [facility] ([id number]) [address], [address] [place] [address] MAGNESIUMon 06-12-2024 Magnesium [Mass/Vol] 1.9 mg/dL Normal 1.8-2.6 [facility] Comment on above: Performed By: #### 1 9123-9, CMP, 53020-7, 97758-9, 2777-1, CBCA #### [facility] ([id number]) [address], [address] [place] [address] Magnesium [Mass/Vol] 1.4 mg/dL Low 1.8-2.6 [facility] Comment on above: Performed By: #### 1 9123-9, CMP, 01754-6, 57999-6, 2777-1, CBCA #### [facility] ([id number]) [address], [address] [place] [address] POTASSIUMon 06-12-2024 Potassium [Moles/Vol] 3.4 mmol/L Low 3.5-5.0 [facility] Comment on above: Performed By: #### 1 9123-9, CMP, 91681-8, 59015-2, 2777-1, CBCA #### [facility] ([id number]) [address], [address] [place] [address] CBC AND AUTO DIFFon 06-12-19 25 ABSOLUTE BASOPHIL 0.0 X10E9/L Normal 0.0-0.2 [facility] Comment on above: Performed By: #### 1 9123-9, CMP, 92102-2, 58225-6, 2777-1, CBCA #### [facility] ([id number]) [address], [address] [place] [address] ABSOLUTE NEUTROPHIL 6.7 X10E9/L High 1.5-6.6 [facility] Comment on above: Performed By: #### 1 9123-9, CMP, 47186-6, 33643-8, 2777-1, CBCA #### [facility] ([id number]) [address], [address] [place] [address] Basophils/100 WBC (Bld) 0.4 % Normal [facility] Comment on above: Performed By: #### 1 9123-9, CMP, 90232-9, 47463-3, 2777-1, CBCA #### [facility] ([id number]) [address], [address] [place] [address] Eosinophils (Bld) [#/Vol] 0.0 10*3/uL Normal 0.0-0.[address] [facility] Comment on above: Performed By: #### 1 9123-9, CMP, 64862-2, 62572-2, 2777-1, CBCA #### [facility] ([id number]) [address], [address] [place] [address] Eosinophils/100 WBC (Bld) 0.4 % Normal [facility] Comment on above: Performed By: #### 1 9123-9, CMP, 78176-3, 57023-9, 2777-1, CBCA #### [facility] ([id number]) [address], [address] [place] [address] Erythrocyte distribution width (RBC) [Ratio] 13.8 % Normal 11.5-15.[address] [facility] Comment on above: Performed By: #### 1 9123-9, CMP, 75522-1, 54869-9, 2777-1, CBCA #### [facility] ([id number]) [address], [address] [place] [address] Hematocrit (Bld) [Volume fraction] 36.3 % Normal 35-47 [facility] Comment on above: Performed By: #### 1 9123-9, CMP, 92918-5, 65189-8, 2777-1, CBCA #### [facility] ([id number]) [address], [address] [place] [address] Hemoglobin (Bld) [Mass/Vol] 12.3 g/dL Normal 11.7-15.[address] [facility] Comment on above: Performed By: #### 1 9123-9, CMP, 89055-8, 99153-7, 2777-1, CBCA #### [facility] ([id number]) [address], [address] [place] [address] Lymphocytes (Bld) [#/Vol] 1.6 10*3/uL Normal 1.0-3.[address] [facility] Comment on above: Performed By: #### 1 9123-9, CMP, 30667-7, 91433-3, 2777-1, CBCA #### [facility] ([id number]) [address], [address] [place] [address] Lymphocytes/100 WBC (Bld) 18.3 % Normal [facility] Comment on above: Performed By: #### 1 9123-9, CMP, 63437-7, 13963-3, 2777-1, CBCA #### [facility] ([id number]) [address], [address] [place] [address] MCH (RBC) [Entitic mass] 28.6 pg Normal 27-[address] [facility] Comment on above: Performed By: #### 1 9123-9, CMP, 63753-5, 70829-7, 2777-1, CBCA #### [facility] ([id number]) [address], [address] [place] [address] MCHC (RBC) [Mass/Vol] 33.8 g/dL Normal 32-36 [facility] Comment on above: Performed By: #### 1 9123-9, CMP, 19989-9, 75691-9, 2777-1, CBCA #### [facility] ([id number]) [address], [address] [place] [address] MCV (RBC) [Entitic vol] 85 fL Normal 80-[address] [facility] Comment on above: Performed By: #### 1 9123-9, CMP, 22920-3, 51534-9, 2777-, CBCA #### [facility] ([id number]) [address], [address] [place] [address] Monocytes (Bld) [#/Vol] 0.5 10*3/uL Normal 0-0.[address] [facility] Comment on above: Performed By: #### 1 9123-9, CMP, 41341-1, 83070-6, 2777-1, CBCA #### [facility] ([id number]) [address], [address] [place] [address] Monocytes/100 WBC (Bld) 5.7 % Normal [facility] Comment on above: Performed By: #### 1 9123-9, CMP, 15087-3, 28168-0, 2777-1, CBCA #### [facility] ([id number]) [address], [address] [place] [address] Neutrophils/100 WBC (Bld) 75.2 % Normal [facility] Comment on above: Performed By: #### 1 9123-9, CMP, 09545-1, 71017-2, 2777-1, CBCA #### [facility] ([id number]) [address], [address] [place] [address] Platelet mean volume (Bld) [Entitic vol] 7.1 fL Normal 7-12 [facility] Comment on above: Performed By: #### 1 9123-9, CMP, 69798-9, 49616-6, 2777-1, CBCA #### [facility] ([id number]) [address] [address] Platelets (Bld) [#/Vol] 231 10*3/uL Normal 150-[address] [facility] Comment on above: Performed By: #### 1 9123-9, CMP, 06396-2, 62745-6, 2777-1, CBCA #### [facility] ([id number]) [address] [address] RBC COUNT 4.30 X10E12/L Normal 3.80-5.[address] [facility] Comment on above: Performed By: #### 1 9123-9, CMP, 47980-6, 17434-2, 2777-1, CBCA #### [facility] ([id number]) [address] [address] WBC (Bld) [#/Vol] 8.9 10*3/uL Normal 4.0-11.0 [facility] Comment on above: Performed By: #### 1 9123-9, CMP, 36714-4, 21264-7, 2777-1, CBCA #### [facility] ([id number]) [address], [facility] [address] [place] [address] COMPREHENSIVE METABOLIC PANE Ab 06-11-2024 Albumin [Mass/Vol] 3.6 g/dL Normal 3.2-5.3 [facility] Comment on above: Performed By: #### 1 9123-9, CMP, 31883-2, 85082-8, 2777-1, CBCA #### [facility] ([id number]) [address] [place] [address] ALP [Catalytic activity/Vol] 64 U/L Normal 39-[address] [facility] Comment on above: Performed By: #### 1 9123-9, CMP, 63295-2, 87658-4, 2777-1, CBCA #### [facility] ([id number]) [address], [address] [place] [address] ALT [Catalytic activity/Vol] 10 U/L Normal 0-[address] [facility] Comment on above: Performed By: #### 1 9123-9, CMP, 57305-5, 37455-7, 2777-1, CBCA #### [facility] ([id number]) [address], [address] [place] [address] Anion gap [Moles/Vol] 12 mmol/L Normal 5-15 [facility] Comment on above: Performed By: #### 1 9123-9, CMP, 63512-0, 08327-2, 2777-1, CBCA #### [facility] ([id number]) [address], [address] [place] [address] AST [Catalytic activity/Vol] 18 U/L Normal 0-[address] [facility] Comment on above: Performed By: #### 1 9123-9, CMP, 64940-1, 26034-6, 2777-1, CBCA #### [facility] ([id number]) [address], [address] [place] [address] Bilirubin [Mass/Vol] 0.2 mg/dL Low 0.3-1.2 [facility] Comment on above: Performed By: #### 1 9123-9, CMP, 29089-1, 15505-6, 2777-1, CBCA #### [facility] ([id number]) [address], [address] [place] [address] Calcium [Mass/Vol] 8.8 mg/dL Normal 8.5-10.5 [facility] Comment on above: Performed By: #### 1 9123-9, CMP, 89487-6, 64449-7, 2777-1, CBCA #### [facility] ([id number]) [address], [address] [place] [address] Chloride [Moles/Vol] 109 mmol/L Normal 98-109 [facility] Comment on above: Performed By: #### 1 9123-9, CMP, 24461-5, 78042-0, 2777-1, CBCA #### [facility] ([id number]) [address], [address] [place] [address] CO2 [Moles/Vol] 20 mmol/L Low 22-[address] [facility] Comment on above: Performed By: #### 1 9123-9, CMP, 22549-5, 64598-2, 2777-1, CBCA #### [facility] ([id number]) [address], [address] [place] [address] Creatinine [Mass/Vol] 0.44 mg/dL Normal 0.40-1.00 [facility] Comment on above: Result Comment: METH OD TRACEABLE TO IDMS STANDARD Performed By: #### 1 9123-9, CMP, 00224-3, 90828-5, 2777-1, CBCA #### [facility] ([id number]) [address], [address] [place] [address] eGFR (CKD-EPI) NON-RACE DEPENDENT >90 Normal >59 [facility] Comment on above: Result Comment: Reported eGFR is based on the CKD-EPI 2020 equation that does not use a race coefficient. Performed By: #### 1 9123-9, CMP, 35381-8, 05192-0, 2777-1, CBCA #### [facility] ([id number]) [address], [address] [place] [address] Glucose [Mass/Vol] 79 mg/dL Normal 65-99 [facility] Comment on above: Performed By: #### 1 9123-9, CMP, 77781-3, 41031-0, 2777-1, CBCA #### [facility] ([id number]) [address], [address] [place] [address] Potassium [Moles/Vol] 3.4 mmol/L Low 3.5-5.0 [facility] Comment on above: Performed By: #### 1 9123-9, CMP, 99467-8, 70127-5, 2777-1, CBCA #### [facility] ([id number]) [address], [address] [place] [address] Protein [Mass/Vol] 6.2 g/dL Normal 6.0-8.0 [facility] Comment on above: Performed By: #### 1 9123-9, CMP, 19562-4, 27485-6, 2777-1, CBCA #### [facility] ([id number]) [address], [address] [place] [address] Sodium [Moles/Vol] 141 mmol/L Normal 134-146 [facility] Comment on above: Performed By: #### 1 9123-9, CMP, 72124-7, 00624-2, 2777-1, CBCA #### [facility] ([id number]) [address], [address] [place] [address] Urea nitrogen [Mass/Vol] 5 mg/dL Normal 5-[address] [facility] Comment on above: Performed By: #### 1 9123-9, CMP, 54637-0, 81027-1, 2777-1, CBCA #### [facility] ([id number]) [address], [address] [place] [address] DRUG SCREEN, URINEon 025 AMPHETAMINE/METHAMP Negative Normal NEG [facility] Comment on above: Result Comment: AMPH /METH screening cut off = 1000 ng/mL Performed By: #### D GODOY #### [facility] ([id number]) [address] [place] [address] BARBITURATES Negative Normal NEG [facility] Comment on above: Result Comment: Jacqueline iturates screening cut off value = 200 ng/mL Performed By: #### D GODOY #### [facility] ([id number]) [address], [address] [place] [address] BENZODIAZEPINES Negative Normal NEG [facility] Comment on above: Result Comment: Jayjay odiazepines screening cut off value = 200 ng/mL Performed By: #### D GODOY #### [facility] ([id number]) [address] [place] [address] CANNABINOIDS Negative Normal NEG [facility] Comment on above: Result Comment: Brandon abinoids/THC screening cut off value = 50 ng/mL Performed By: #### D GODOY #### [facility] ([id number]) [address] [place] [address] COCAINE METABOLITE Negative Normal NEG [facility] Comment on above: Result Comment: Coca ine screening cut off value = 300 ng/mL Performed By: #### D GODOY #### [facility] ([id number]) [address] [place] [address] ECSTASY Negative Normal NEG [facility] Comment on above: Result Comment: Ecst asy screening cut off value = 500 ng/mL This report is intended for use in clinical monitoring or management of patients. Performed By: #### D GODOY #### [facility] ([id number]) [address] [place] [address] METHADONE Negative Normal NEG [facility] Comment on above: Result Comment: Meth adone screening cut off value = 300 ng/mL. Performed By: #### D GODOY #### [facility] ([id number]) [address] [place] [address] OPIATES Negative Normal NEG [facility] Comment on above: Result Comment: Opia beni screening cut off value = 300 ng/mL NOTE: This test is used for the detection of codeine, hydrocodone (>1000 ng/mL), morphine and hydromorphone (>900 ng/mL) in urine. Performed By: #### D GODOY #### [facility] ([id number]) [address], [address] [place] [address] OXYCODONE Negative Normal NEG [facility] Comment on above: Result Comment: Oxyc odone screening cut off value = 300 ng/mL NOTE: This test is used for the detection of oxycodone and oxymorphone in urine. Performed By: #### D GODOY #### [facility] ([id number]) [address], [address] [place] [address] PHENCYCLIDINE Negative Normal NEG [facility] Comment on above: Result Comment: Phen cyclidine screening cut off value = 25 ng/mL Performed By: #### D GODOY #### [facility] ([id number]) [address] [place] [address] MAGNESIUMon 06-11-2024 Magnesium [Mass/Vol] 1.7 mg/dL Low 1.8-2.6 [facility] Comment on above: Performed By: #### 1 9123-9, CMP, 92163-8, 66954-1, 2777-1, CBCA #### [facility] ([id number]) [address] [place] [address] PHOSPHORUSon 06-11-2024 Phosphate [Mass/Vol] 4.0 mg/dL Normal 2.4-4.9 [facility] Comment on above: Performed By: #### 1 9123-9, CMP, 96579-6, 40294-8, 2777-1, CBCA #### [facility] ([id number]) [address] [place] [address] T. pallidum IgG+IgM IA Ql (S )on 06-11-2024 Syphilis Total <0.2 Normal 0.0-0.[address] [facility] Comment on above: Result Comment: NON REACTIVE No serologic evidence of infection to Treponema pallidum (syphilis). Repeat testing may be considered in patients with suspected acute or primary syphilis in 2 to 4 weeks. Performed By: #### 1 9123-9, [facility], 17965-5, 89935-8, 2777-1, CBCA #### [facility] ([id number]) [address] [address], [address] [place] [address] Ultrasound - OfficeOrdered B y: Ravinder Murrayes on 06-11-2024 Radiology Study observation (narrative) [facility] Ultrasound - Officeon 2024 Radiology Study observation (narrative) [facility] Vitamin D+Metabolites [Mass/ Vol]on 06-11-2024 VITAMIN D 25 HYD TOT 23.3 ng/mL Low 30-100 [facility] Comment on above: Result Comment: Vitamin D status 25 [place] Vitamin D Deficiency <20 ng/mL Insufficiency 20-29 ng/mL Sufficiency 30-100 ng/mL Toxicity >100 ng/mL NOTE: A pediatric reference range has not been established by the distribution operations supervisor of this kit. The [place] [employer] recommends a Vitamin D level of = or >20ng/mL in infants and children. Performed By: #### 1 9123-9, [facility], 18259-4, 29172-3, 2777-1, CBCA #### [facility] ([id number]) [address] [place] [address] ALL CBC WITH AUTO DIFFon BASOPHILS ABSOLUTE AUTO 0 [facility] Basophils/100 WBC (Bld) 0.2 % 0.2 - 2.0 % [facility] Eosinophils/100 WBC (Bld) 0.6 % Low 0.9 - 7.0 % [facility] Erythrocyte distribution width (RBC) [Ratio] 13.6 % 11.0 - 15.0 % [facility] Hematocrit (Bld) [Volume fraction] 36.1 % 36.0 - 48.0 % [facility] Healthcar e Hemoglobin (Bld) [Mass/Vol] 12.2 g/dL 12.0 - 16.0 g/dL [facility] IMMATURE GRANULOCYTES ABS AUTO 0.06 High [facility] Immature granulocytes/100 WBC (Bld) 0.7 % High 0.0 - 0.5 % [facility] Interpretation and review of laboratory results Abnormal [facility] LYMPHOCYTES ABSOLUTE AUTO 1.7 [facility] Lymphocytes/100 WBC (Bld) 19.5 % Low 20.5 - 60.0 % [facility] MCH (RBC) [Entitic mass] 29.1 pg 26.7 - 34.0 pg [facility] MCHC (RBC) [Mass/Vol] 33.8 g/dL 29.9 - 35.2 g/dL [facility] MCV (RBC) [Entitic vol] 86.2 fL 81.0 - 99.0 fL [facility] MONOCYTES ABSOLUTE AUTO 0.6 [facility] Monocytes/100 WBC (Bld) 6.4 % 1.7 - 12.0 % [facility] NEUTROPHILS ABSOLUTE AUTO 6.5 [facility] Neutrophils/100 WBC (Bld) 72.6 % 43.0 - 75.0 % [facility] Platelet mean volume (Bld) [Entitic vol] 9 fL Low 9.5 - 13.5 fL [facility] # [facility].1 [facility] TB PLT 257 [facility] TB RBC 4[facility]19 Low [facility] TB WBC 8.9 [facility] No Panel Informationon 06-10 [facility] Healthcar e TSHon 06-10-2024 Thyroid Stimulating (3Rd Generation) Hormone/ Tsh 1.48 [facility] Urinalysis macro (dipstick) panel (U)on 06-10-2024 Bilirubin, UA Negative Negative - 4(70) +++ mg/dL [facility] Blood, UA Negative Negative - 50 Jordan/mcL [facility] Clarity, UA Clear [facility] re Color, UA Yellow [facility] e Glucose, UA Negative Negative - 2000(110) ++++ mg/dL [facility] Interpretation and review of laboratory results Normal [facility] Ketones, UA Negative Negative - 160(16) ++++ mg/dL [facility] Leukocytes, UA Negative Negative - 500+++ Leanne/mcL [facility] Nitrite, UA Negative Negative - Positive [facility] pH, UA 7 5 - 9 [facility] Protein, UA Negative Negative - 2000(20) ++++ mg/dL [facility] Spec Grav, UA 1.015 1 - 1.03 [facility] Urobilinogen, UA 0.2 0.2 - 12 mg/dL [facility] Ultrasound - Officeon 2024 [facility] [...] II, MD, PHD at 13-May-2024 08:36:44 AM [facility] Normal Not Available Comment on above: Order Comment: US OB ANATOMY SINGLE W US OB CERVICAL LENGTH Estimated Date of Delivery: 09/04/24 Gestational Age as of 04/15/2024: 19w5d AFP, SERUM, OPEN SPINA BIFID Aon 05-07-2024 AFP MOM 1.00 . [facility] [facility] AFP VALUE 66.2 ng/mL . [facility] [employer] [facility] [facility] COMMENT: Comment . [facility] [employer] [facility] [facility] Comment on above: Fiona White , Ph.D., [facility] Director References: Available Upon Request. Multiples Of Median Cutoffs For AFP Elevations Ramírez 2.5 Black 2.8 IDD 2.0 Twins 4.5 Abbreviation Definitions IDD - Insulin Dep Diabetes OSBR - Open Spina Bifida Risk For further inquiries contact [facility] [facility] at [phone]. This test was developed and its performance characteristics determined by [employer]. It has not been cleared or approved by the Food and Drug Administration. Performed at: [facility] [address] [place], [place] [id number] Technical Support Assistant: Darlene Snyder [facility], Phone: [phone] GEST. AGE ON COLLECTION DATE 22.4 . weeks [facility] GESTAT. AGE BASED ON Ultrasound . [facility] Comment on above: 19.7 on 04/15/2024 Recalculations are not recommended when gestational dating by LMP and ultrasound are within 10 days. INSULIN DEP DIABETES No . [facility] Healthcare INTERPRETATION Comment . [facility] Healt hcare Comment on above: Interpretation: Scre [...] Customer Services to discuss available options. The [employer] recommends amniocentesis be offered to women age 35 and older. [age] [facility] MULTIPLE GESTATION No . [facility] [place] [address] [place] [id number] . [facility] . [facility] [employer] RESULTS Report . [facility] [employer] TEST RESULTS: Negative . [facility] [employer] care WEIGHT 195 . lbs [facility] N N ULTRASOUND [id number] 5 19 N 1 195 N N N N N White/ CL[facility] [employer] [employer] [facility] IGP,APTIMA HPV,AGE GDLNon AGE GDLN ACOG TESTING Note . [facility] Comment on above: TESTS RESULT FLAG UN ITS REF RANGE LAB Clinician Provided Cytology Information Source.............Cervix No. of containers..01 ThinPrep Vial Age Algo ACOG Beni... -01 04 FLAG LEGEND: L-Low Normal,H-High Normal,LL-Alert Low,HH-Alert High <-Panic Low,>-Panic High,A-Abnormal,AA-Critical Abnormal Performed at: 01 =G Randal Eli [address] [place] [id number] Ania Barnes MD, IGP, RFX APTIMA HPV ASCU Note . [facility] Comment on above: TESTS RESULT FLAG UN ITS REF RANGE LAB DIAGNOSIS: 02 NEGATIVE FOR INTRAEPITHELIAL LESION OR MALIGNANCY. Specimen adequacy: 02 Satisfactory for evaluation. No endocervical component is identified. Performed by: 02 Maria C Butler, Produce Team Member ([facility]) . 02 Note: Note 02 The Pap [...] <-Panic Low,>-Panic High,A-Abnormal,AA-Critical Abnormal Performed at: [address] [id number] Ania Barnes MD, Performed at: = - [facility] [id number] Technical Support Assistant: Ania Barnes MD, Phone: [phone] Performed at: [facility] [id number] Technical Support Assistant: Ania Barnes MD, Phone: [phone] SPATULA-ALONE CERVIX CL[facility] e RECURRENT VAGINITIS (HTRX)on 04-17-2024 ATOPOBIUM [...] TRICHOMONAS VAGINALIS Not detected N [facility] Urinalysis macro (dipstick) panel (U)Ordered By: Ijeoma Carrera on 04-15-2024 Bilirubin, UA Negative Negative - 4(70) +++ mg/dL [facility] Blood, UA Negative Negative - 50 Jordan/mcL [facility] Clarity, UA Clear [facility] Healthca re Color, UA Yellow [facility] Glucose, UA Negative Negative - 2000(110) ++++ mg/dL [facility] Interpretation and review of laboratory results Normal [facility] Ketones, UA Negative Negative - 160(16) ++++ mg/dL [facility] Leukocytes, UA Negative Negative - 500+++ Leanne/mcL [facility] Nitrite, UA Negative Negative - Positive [facility] pH, UA 6.5 5 - 9 [facility] Protein, UA Negative Negative - 1999(20) ++++ mg/dL [facility] Spec Grav, UA 1.02 1 - 1.03 [facility] Urobilinogen, UA 1.0 0.2 - 12 mg/dL [facility] Healthcar e ALL CBC WITH AUTO DIFFon BASOPHILS ABSOLUTE AUTO 0.1 [facility] Basophils/100 WBC (Bld) 0.5 % 0.2 - 2.0 % [facility] Eosinophils/100 WBC (Bld) 0.4 % Low 0.9 - 7.0 % [facility] Erythrocyte distribution width (RBC) [Ratio] 12.4 % 11.0 - 15.0 % [facility] Hematocrit (Bld) [Volume fraction] 39.8 % 36.0 - 48.0 % [facility] e Hemoglobin (Bld) [Mass/Vol] 13.5 g/dL 12.0 - 16.0 g/dL [facility] IMMATURE GRANULOCYTES ABS AUTO 0.03 [facility] Immature granulocytes/100 WBC (Bld) 0.3 % 0.0 - 0.5 % [facility] Interpretation and review of laboratory results Abnormal [facility] LYMPHOCYTES ABSOLUTE AUTO 1.8 [facility] Lymphocytes/100 WBC (Bld) 16.2 % Low 20.5 - 60.0 % [facility] MCH (RBC) [Entitic mass] 28.8 pg 26.7 - 34.0 pg [facility] MCHC (RBC) [Mass/Vol] 33.9 g/dL 29.9 - 35.2 g/dL [facility] MCV (RBC) [Entitic vol] 85 fL 81.0 - 99.0 fL [facility] MONOCYTES ABSOLUTE AUTO 0.4 [facility] Monocytes/100 WBC (Bld) 3.8 % 1.7 - 12.0 % [facility] NEUTROPHILS ABSOLUTE AUTO 8.8 High [facility] Neutrophils/100 WBC (Bld) 78.8 % High 43.0 - 75.0 % [facility] Platelet mean volume (Bld) [Entitic vol] 9 fL Low 9.5 - 13.5 fL [facility] # 0 [facility] PLT 351 [facility] TB RBC 4.68 [facility] TBH WBC 11.2 High [facility] Drug Screen, Urineon 024 Amphetamine/Methamphe tamine Negative [facility] Barbiturates Negative [facility] Benzodiazepines Negative [facility] Cocaine Metabolite Negative [facility] Methadone Negative [facility] Opiates Negative [facility] Oxycodone Negative [facility] Phencyclidine Negative [facility] Thc Marijuana, Urine Negative [facility] HIV 1&2 AB/AG Screen (P24 AG )on 02-14-2024 HIV 1&2 AB/AG Non-Reactive [facility] Hemoglobin A1con 02-14-2024 HbA1c (Bld) [Mass fraction] 4.8 % 4.0 - 6.0 % [facility] Hepatitis B surface antigeno n 02-14-2024 Hepatitis B Surface Antigen Negative [facility] No Panel Informationon 02-13 [facility] Rubella IGG immune statuson 02-14-2024 Rubella immune IgG immune [facility] Syphilis Total(Unknown Syphi lis Status)Ordered By: Ravinder Burnett on 02-14-2024 Syphilis Non-Reactive [facility] TBH DRUG SCREEN RAPID (URINE )on 02-14-2024 AMPHETAMINE SCREEN URINE Negative NEGATIVE [facility] Healthcare BARBITURATES SCREEN URINE Negative NEGATIVE [facility] [...] [facility] PHENCYCLIDINE SCREEN URINE Negative NEGATIVE [facility] TRICYCLIC ANTIDEPRESSANT URINE Negative NEGATIVE [facility] Healthcar e Type and screenon 02-14-2024 Abo/Rh(D) Positive [facility] System HCG ( test) Ql (U)o n 02-11-2024 Interpretation and review of laboratory results Abnormal [facility] Preg Test, Ur Positive Negative [facility] Ultrasound - OfficeOrdered B y: Ravinder Burnett on 02-11-2024 [facility] Urinalysis macro (dipstick) panel (U)on 02-11-2024 Bilirubin, UA Negative Negative - 4(70) +++ mg/dL [facility] Blood, UA Negative Negative - 50 Jordan/mcL [facility] Clarity, UA Clear [facility] re Color, UA Yellow [facility] Healthcar e Glucose, UA Negative Negative - 1999(110) ++++ mg/dL [facility] Interpretation and review of laboratory results Normal [facility] Ketones, UA Negative Negative - 160(16) ++++ mg/dL [facility] Leukocytes, UA Negative Negative - 500+++ Leanne/mcL [facility] Nitrite, UA Negative Negative - Positive [facility] pH, UA 6 5 - 9 [facility] Healthcar e Protein, UA Negative Negative - 1999(20) ++++ mg/dL [facility] Spec Grav, UA 1.025 1 - 1.03 [facility] Urobilinogen, UA 0.2 0.2 - 12 mg/dL [facility] SARS-CoV-2 (COVID-19) RNA NA A+probe Ql (Resp)on 11-23-2021 SARS-CoV-2 (COVID-19) RNA RASHEED+probe Ql (Unsp spec) Positive [facility] Other Covid-19 PCR ([facility])on 11-03 SARS-CoV-2 (COVID-19) RNA RASHEED+probe Ql (Unsp spec) Not detected Normal NOT DETECTED [facility] Comment on above: Result Comment: This test is not yet approved or cleared by the [place] FDA. When there are no FDA-approved or cleared tests available, and other criteria are met, FDA can make tests available under an emergency access mechanism called an Emergency Use Authorization (EUA). The EUA for this test is supported by the [place] of Health and Human Service's (HHS's) declaration [...] SARS-CoV-2. Performed By: #### [facility] #### [facility] [address] [place] [address] Dr. Kaela Stewart Vital Signs Date Time Vital Sign Value Performing Clinician Facility 07-29-2024 15:23-0400 Body weight 90.72 kg Chelsea DIAZ Work Phone: [facility] 07-29-2024 15:23-0400 Diastolic blood pressure 80 mm[Hg] Chelsea DIAZ Work Phone: [facility] 07-29-2024 15:23-0400 Systolic blood pressure 122 mm[Hg] Chelsea DIAZ Work Phone: [facility] 07-17-2024 13:48-0400 Body height 160 cm Berto Suárez MD Work Phone: [facility] 07-17-2024 13:48-0400 Body mass index (BMI) [Ratio] 34.95 kg/m2 Berto Suárez MD Work Phone: [facility] 07-17-2024 13:48-0400 Body weight 89.5 kg Berto Suárez MD Work Phone: [facility] 07-17-2024 13:48-0400 Diastolic blood pressure 71 mm[Hg] Berto Suárez MD Work Phone: [facility] 07-17-2024 13:48-0400 Heart rate 82 /min Berto Suárez MD Work Phone: [facility] 07-17-2024 13:48-0400 Systolic blood pressure 115 mm[Hg] Berto Suárez MD Work Phone: [facility] 07-15-2024 17:02-0400 Body weight 89.81 kg Rosalba Baer [employer] SURFACE HEATER OPERATOR Work Phone: [facility] 07-15-2024 17:02-0400 Diastolic blood pressure 74 mm[Hg] Rosalba Keyur [employer] SUR[employer] HEATER OPERATOR Work Phone: [facility] 07-15-2024 17:02-0400 Systolic blood pressure 116 mm[Hg] Rosalba Baer [employer] SURFACE HEATER OPERATOR Work Phone: [facility] 07-10-2024 10:37-0400 Body mass index (BMI) [Ratio] 34.84 kg/m2 Ania Fenton MD Work Phone: [facility] 07-10-2024 10:37-0400 Body weight 89.22 kg Ania Fenton MD Work Phone: [facility] 07-10-2024 10:37-0400 Diastolic blood pressure 70 mm[Hg] Ania Fenton MD Work Phone: [facility] 07-10-2024 10:37-0400 Systolic blood pressure 108 mm[Hg] Ania Fenton MD Work Phone: [facility] 07-06-2024 16:15-0400 Body mass index (BMI) [Ratio] 35.07 kg/m2 Holly Sheehan RN Work Phone: [facility] 07-06-2024 16:15-0400 Body weight 89.81 kg Holly Sheehan RN Work Phone: [facility] 06-30-2024 11:25-0400 Body weight 88.81 kg Ronald Fierro DO Work Phone: [facility] 06-30-2024 11:25-0400 Diastolic blood pressure 72 mm[Hg] Ronald Sri DO Work Phone: [facility] 06-30-2024 11:25-0400 Systolic blood pressure 118 mm[Hg] Ronald Sri DO Work Phone: [facility] 06-11-2024 14:12-0400 Body height 160 cm Berto Suárez MD Work Phone: [facility] 06-11-2024 14:12-0400 Diastolic blood pressure 76 mm[Hg] Berto Suárez MD Work Phone: [facility] 06-11-2024 14:12-0400 Heart rate 111 /min Berto Suárez MD Work Phone: [facility] 06-11-2024 14:12-0400 Systolic blood pressure 119 mm[Hg] Berto Suárez MD Work Phone: [facility] 06-10-2024 15:58-0400 Body weight 92.76 kg Ronald Sri DO Work Phone: [facility] 06-10-2024 15:58-0400 Diastolic blood pressure 76 mm[Hg] Ronald Sir DO Work Phone: [facility] 06-10-2024 15:58-0400 Systolic blood pressure 114 mm[Hg] Ronald Sri DO Work Phone: [facility] 04-15-2024 16:36-0500 Body weight 88.63 kg Chelsea DIAZ Work Phone: [facility] 04-15-2024 16:36-0500 Diastolic blood pressure 66 mm[Hg] Chelsea DIAZ Work Phone: [facility] 04-15-2024 16:36-0500 Systolic blood pressure 110 mm[Hg] Chelsea DIAZ Work Phone: [facility] 04-04-2024 10:57-0500 Body height 157.48 cm [facility] 04-04-2024 10:57-0500 Body mass index (BMI) [Ratio] 35.4 kg/m2 [facility] 04-04-2024 10:57-0500 Body temperature 99.8 [degF] [facility] 04-04-2024 10:57-0500 Body weight 87.99 kg [facility] 04-04-2024 10:57-0500 Diastolic blood pressure 71 mm[Hg] [facility] 04-04-2024 10:57-0500 Heart rate 118 /min [facility] 04-04-2024 10:57-0500 Respiratory rate 16 /min [facility] 04-04-2024 10:57-0500 SaO2% (BldA) [Mass fraction] 98 % [facility] 04-04-2024 10:57-0500 Systolic blood pressure 101 mm[Hg] [facility] 03-16-2024 16:35-0500 Body weight 88.18 kg [employer] Work Phone: [facility] 03-16-2024 16:35-0500 Diastolic blood pressure 68 mm[Hg] Ronald Sri DO Work Phone: [facility] 03-16-2024 16:35-0500 Systolic blood pressure 108 mm[Hg] Ronald Sri DO Work Phone: [facility] 02-11-2024 09:32-0500 Body weight 86.18 kg Nom Nurse [facility] 02-11-2024 09:32-0500 Diastolic blood pressure 70 mm[Hg] [facility] Nurse [facility] 02-11-2024 09:32-0500 Systolic blood pressure 110 mm[Hg] [facility] Nurse [facility] 11-23-2021 14:10-0400 Body height 154.94 cm Marianna Moralez Other [facility] Other 11-23-2021 14:10-0400 Body mass index (BMI) [Ratio] 34.01 kg/m2 Marianna Moralez Other [facility] Other 11-23-2021 14:10-0400 Body temperature 99.8 [degF] Marianna Moralez Other [facility] Other 11-23-2021 14:10-0400 Body weight 81.65 kg Marianna Moralez Other [facility] Other 11-23-2021 14:10-0400 Respiratory rate 18 /min Marianna Moralez Other [facility] Other 11-23-2021 14:10-0400 SaO2% (BldA) [Mass fraction] 97 % Marianna Moralez Other [facility] Other Encounters Encounter Date Encounter Type Care Provider Facility Start: 07-31-2024 End: 07-31-2024 Clinisync Result Encounter Ronald Sri DO Work Phone: [facility] External Department Unsolicited Start: 07-31-2024 End: 07-31-2024 Clinisync Result Encounter Ronald Sri DO Work Phone: [facility] External [facility] Unsolicited Start: 07-29-2024 End: 07-29-2024 ambulatory CHELSEA CARSON Not Available Start: 07-29-2024 End: 07-29-2024 Office outpatient visit [...] Only Chelsea Segura LPN [facility] Comment on above: Gestational diabetes mellitus (GDM) in third trimester, gestational diabetes method of control unspecified (Primary Dx); Supraventricular tachycardia of fetus affecting management of ; Excessive growth affecting management of in second trimester, single or unspecified fetus; Polyhydramnios affecting Start: 07-24-2024 End: 07-24-2024 ambulatory MARGOTH CONNOR [facility] Start: 07-21-2024 End: 07-21-2024 Telephone encounter Lila Zhao RN [facility] Start: 07-17-2024 End: 07-17-2024 ambulatory CHAVEZ Lares KARYNA [facility] Start: 07-17-2024 End: 07-17-2024 Office outpatient visit 25 minutes Berto Suárez MD Work Phone: [facility] Comment on above: 33 weeks gestation o [...] Start: 07-17-2024 End: 07-17-2024 [facility] Start: 07-15-2024 End: 07-15-2024 Office outpatient visit 15 minutes Rosalba Baer NP Work Phone: [facility] Comment on above: Third trimester preg marcie; 32 weeks gestation of Start: 07-15-2024 End: 07-15-2024 ambulatory ROSALBA BAER Not Available Start: 07-15-2024 End: 07-15-2024 Bamboo flowsheet Rosalba Baer [employer] HE[employer] OPERATOR Work Phone: [facility] Start: 07-15-2024 End: 07-15-2024 Bamboo flowsheet Rosalba Baer [employer] HEATER OPERATOR Work Phone: [facility] Start: 07-10-2024 End: 07-10-2024 ambulatory Ania Fenton MD Work Phone: [facility] Comment on above: GA: 32w0d Start: 07-06-2024 End: 07-06-2024 Orders Only Holly Sheehan RN Work Phone: [facility] Comment on above: Diet controlled gest ational [...] procedure Hayley Conner RDMS [facility] Start: 06-29-2024 End: 06-29-2024 Telephone encounter Mendy North RN [facility] Start: 06-26-2024 End: 06-26-2024 Orders Only Anahi Ragsdale RN [facility] Comment on above: Diet controlled gest ational diabetes mellitus (GDM) in third trimester (Primary Dx) Start: 06-24-2024 End: 06-28-2024 Evaluation and management of inpatient [facility] Start: 06-24-2024 End: 06-24-2024 Evaluation and management of inpatient [facility] Start: 06-23-2024 End: 06-23-2024 Evaluation and management of inpatient [facility] Start: 06-22-2024 End: 06-22-2024 Telephone encounter Luther serrano Comment on above: Medication Problem Start: 06-22-2024 End: 06-28-2024 Evaluation and management of inpatient [facility] Start: 06-22-2024 End: 06-22-2024 Evaluation and management of inpatient [facility] Start: 06-21-2024 End: 06-21-2024 Telephone encounter Bhavani serrano Comment on above: patient update Start: 06-21-2024 End: 06-21-2024 Evaluation and management of inpatient [facility] Start: 06-20-2024 End: 06-20-2024 Evaluation and management of inpatient [facility] Start: 06-19-2024 End: 06-28-2024 Evaluation and management of inpatient [facility] Start: 06-18-2024 End: 06-18-2024 Evaluation and management of inpatient [facility] Start: 06-17-2024 End: 06-17-2024 Evaluation and management of inpatient [facility] Start: 06-16-2024 End: 06-16-2024 Evaluation and management of inpatient [facility] Start: 06-15-2024 End: 06-23-2024 Evaluation and management of inpatient MEHREEN Meza [facility] Start: 06-15-2024 End: 06-15-2024 Evaluation and management of inpatient CHAVEZ TRONCOSO [facility] Start: 06-12-2024 End: 06-12-2024 Orders Only Nisha Bonilla RN [facility] Comment on above: Supraventricular tac hycardia of fetus affecting management of (Primary Dx); Polyhydramnios affecting Start: 06-12-2024 End: 06-23-2024 Evaluation and management of inpatient ESTEFANI GRADY [facility] Start: 06-11-2024 End: 06-28-2024 Evaluation and management of inpatient VANESA SEGOVIA [facility] Start: 06-11-2024 End: 06-11-2024 Office consultation new/estab patient 80 min Berto Suárez MD Work Phone: [facility] Comment on above: 27 weeks gestation o f (Primary Dx); Supraventricular tachycardia of fetus affecting management of ; Polyhydramnios affecting ; Excessive growth affecting management of in second trimester, single or unspecified fetus Start: 06-11-2024 End: 06-11-2024 ambulatory BERTO SUÁREZ [facility] Start: 06-11-2024 End: 06-11-2024 Chart abstracting Scanning Provider External [facility] Start: 06-11-2024 End: 06-11-2024 ambulatory RONALD R SRI [facility] Start: 06-10-2024 End: 06-10-2024 ambulatory RONALD SRI [...] Start: 06-10-2024 End: 06-11-2024 Bamboo flowsheet Ronald Jaquezo DO Work Phone: [facility] Start: 06-10-2024 End: 06-11-2024 Clinisync Result Encounter Ronald Jaquezo DO Work Phone: [facility] External Department Unsolicited [...] 04-15-2024 End: 04-15-2024 Patient encounter procedure Chelsea Carson PA Work Phone: [facility] Work Phone: Start: 04-15-2024 End: 04-15-2024 Periodic preventive med est patient 18-39 yrs Chelsea DIAZ Work Phone: [facility] Comment on above: Well woman exam with routine gynecological exam; Second trimester ; Vaginal discharge; STD exposure; 19 weeks gestation of ; Screening, , for anatomic survey Start: 04-15-2024 End: 04-15-2024 Bamboo flowsheet Chelsea Carosn PA Work Phone: [facility] Start: 04-15-2024 End: 04-20-2024 Bamboo flowsheet Chelsea Carson PA Work Phone: [facility] Start: 04-15-2024 End: 04-20-2024 Clinisync Result Encounter Chelsea DIAZ Work Phone: [facility] External Department Unsolicited Start: 04-15-2024 End: 04-17-2024 External Result Encounter Chelsea DIAZ Work Phone: [facility] External Department Unsolicited Start: 04-14-2024 End: 04-15-2024 Telephone encounter Chavez Troncoso ROOFING TECHNICIAN-APPAREL RENTAL CLERK Work Phone: [facility] Start: 04-04-2024 End: 04-04-2024 ambulatory [facility] Work Phone: Start: 04-04-2024 End: 04-04-2024 Patient encounter procedure [facility] Work Phone: Start: 03-16-2024 End: 03-16-2024 ambulatory RONALD SRI Not Available Start: 03-16-2024 End: 03-16-2024 Office outpatient visit 15 minutes Ronald Sir DO Work Phone: [facility] Comment [...] Start: 09-10-2023 End: 09-11-2023 Telephone encounter Chavez Troncoso ROOFING TECHNICIAN-APPAREL RENTAL CLERK Work Phone: [facility] Start: 11-23-2021 End: 11-23-2021 ambulatory Marianna Moralez Other [facility] Other Start: 11-23-2021 Office outpatient ne w 30 minutes Marianna Moralez [facility] Start: 11-28-2020 End: 11-28-[address] MECHELLE MOODY Facility:[facility]1 Procedures Date Procedure Procedure Detail Performing Clinician Start: 07-31-2024 US OB BPP W NON-STRESS Ronald Sri DO Work Phone: Start: 07-29-2024 Urnls dip stick/tabl et rgnt non-auto w/o micrscp Chelsea DIAZ Work Phone: Start: 07-17-2024 US OB BPP W NON-STRESS Ronald Sri DO [...] 05-04-2024 AFP, SERUM, OPEN SPI NA BIFIDA Cehlsea DIAZ Work Phone: Start: 04-15-2024 RECURRENT VAGINITIS (HTRX) Chelsea DIAZ Work Phone: Start: 04-15-2024 Urnls dip stick/tabl et rgnt non-auto w/o micrscp Chelsea DIAZ Work Phone: Start: 04-15-2024 IGP,APTIMA HPV,AGE GDLN Chelsea DIAZ Work Phone: Start: 04-15-2024 Microscopic observat ion [Identifier] in Cervix by Cyto stain Scanning External Start: 02-14-2024 ALL CBC WITH AUTO DIFF Ronaldashley Fierro DO Work Phone: Start: 02-14-2024 Antibody screen [...] 02-14-2024 [facility] DRUG SCREEN RAPI D (URINE) Ronaldashley Fierro [employer] Work Phone: Start: 02-11-2024 ULTRASOUND OFFICE Not I n System Ref Prov Start: 02-11-2024 End: 02-11-2024 Urnls dip stick/tablet rgnt non-auto w/o micrscp Ronald Sri DO Work Phone: Start: 05-28-2022 Adult depression scr eening assessment Chavez PINEDA Work Phone: Start: 12-15-2018 Microscopic observat ion [Identifier] in Cervix by Cyto stain Chavez PINEDA Work Phone: Plan of Treatment Date Care Activity Detail Author Start: 07-10-2034 DTaP,Tdap and Td Vaccines (8 - Td or Tdap) DTaP,Tdap and Td Vaccines (8 - Td or Tdap) [facility] Start: 04-15-2027 Screening for malignant neoplasm of cervix Pap Smear [facility] Start: 07-24-2025 Adult BMI Screening Adult BMI Screen ing [facility] Start: 07-24-2025 Tobacco Screening Tobacco Screening [facility] Start: 07-17-2025 Adult BMI Screening Adult BMI Screen ing [facility] Start: 07-17-2025 Tobacco Screening Tobacco Screening [facility] Start: 07-10-2025 Adult BMI Screening Adult BMI Screen ing [facility] Start: 07-10-2025 Tobacco Screening Tobacco Screening [facility] Start: 06-12-2025 End: 06-12-2025 US MFM with or without consult US MFM with or without consult Imaging Routine Supraventricular tachycardia of fetus affecting management of Polyhydramnios affecting Expected: 06/12/2025 (Approximate), Expires: 06/12/2025 [facility] Work Phone: Comment on above: Expected: 06/12/2025 (Approximate), Expires: 06/12/2025 Start: 06-11-2025 Adult BMI Screening Adult BMI Screen ing [facility] Start: 06-11-2025 Tobacco Screening Tobacco Screening [facility] Start: 11-02-2024 Influenza vaccination Influenz a Vaccine (Season Ended) [facility] Start: 08-12-2024 End: 08-12-2024 Patient encounter procedure 08/12/2024 3:40 PM EDT Routine [facility] [address] [place] [address] Ronald Fierro, [address] [place] [address] [facility] Start: 08-07-2024 End: 08-07-2024 Patient encounter procedure 08/07/2024 3:30 PM EDT Appointment [facility] [address] [place] [address] [facility] Start: 08-04-2024 End: 08-04-2024 Patient encounter procedure 08/04/2024 9:00 AM EDT Routine [facility] [address] [place] [address] Marcie Staples MD [address] [place] [address], [address] [address] [facility] Start: 07-29-2024 End: 07-29-2024 Patient encounter procedure 07/29/2024 2:50 PM EDT Routine [facility] [address] [place] [id number] Chelsea Carson PA [address] [place] [address] [facility] Start: 07-28-2024 End: 07-28-2025 [...] encounter procedure 07/24/2024 9:45 AM EDT Routine [facility] Services [address] [place] [address] Margoth Connor MD [address] [place] [address] [facility] Start: 07-24-2024 End: 07-24-2024 Patient encounter procedure 07/24/2024 8:30 AM EDT Routine [facility] [address] [place] [address] Margoth Connor MD [address] [place] [address] [facility] Start: 07-17-2024 End: 07-17-2024 Patient encounter procedure [facility] Start: 07-15-2024 End: 07-15-2024 Patient encounter procedure [facility] Comment on above: Arrived Start: 07-10-2024 End: 07-10-2024 ambulatory 07/10/2024 10:00 AM EDT Initial [facility] [address] [place] [address] Ania Fenton MD [address] [facility] [place] [address] [facility] Start: 07-06-2024 End: 07-06-2024 ambulatory 07/06/2024 1:30 PM EDT Support Visit Maternal- Medicine at [facility] [address] [place] [address] Berto Suárez MD [address], [address] [place] [address], [place] [address] Holly Sheehan, RN [address], [address] [place] [address], [place] [address] Migdalia Fernandez, KATE [address], [address] [place] [address], [place] [address] [facility] at [facility] Start: 06-30-2024 End: 12-30-2024 US biophysical profile [...] AM EDT Routine [facility] [address] [place] [phone] Ronald Fierro, DO [address], [place] [id number] Arrived [facility] Comment on above: Arrived Start: 06-24-2024 End: 06-24-2024 Patient encounter procedure 06/24/2024 2:50 PM EDT Routine [facility] [place] [phone] Ronald Fierro, DO [address] [place] [address] [facility] Start: 06-12-2024 End: 06-12-2024 Patient encounter procedure 06/12/2024 9:40 AM EDT Office Visit [facility] [address] [place] [address] Chavez Troncoso, ROOFING TECHNICIAN-APPAREL RENTAL CLERK [address] [place] [address] [facility] Start: 05-11-2024 End: 05-11-2024 Patient encounter procedure 05/11/2024 3:40 PM EDT Routine [facility] [address] [place] [address] Chelsea Carson PA [address] [place] [address] [facility] Start: 05-11-2024 End: 05-11-2024 Professional / ancillary services management 05/11/2024 2:30 PM EDT Ancillary Procedure [facility] [address] [facility] [place] [phone] [facility] Start: 04-15-2024 End: 04-15-2024 Patient encounter procedure 04/15/2024 3:50 PM EST Routine [facility] [address] [facility] [place] [address] Chelsea Carson PA [address] [place], [place] [id number] [facility] Start: 04-15-2024 End: 10-13-2024 Alpha fetoprotein, maternal Alpha fetoprotein, maternal Lab Routine Second trimester 19 weeks gestation of Expected: 04/15/2024 (Approximate), Expires: 10/13/2024 [facility] Comment on above: Expected: 04/15/2024 (Approximate), Expires: 10/13/2024 Start: 04-15-2024 End: 04-15-2025 US for US OB 14+ weeks anatomy scan Imaging Routine Screening, , for anatomic survey Expected: 04/15/2024, Expires: 04/15/2025 [facility] Comment on above: Expected: 04/15/2024 , Expires: 04/15/2025 Start: 03-16-2024 End: 03-16-2024 Patient encounter procedure 03/16/2024 3:50 PM EST Routine [facility] [address] [place] [phone] Ronald Fierro DO [address] [place] [address] [facility] Start: 02-11-2024 End: 02-10-2025 ABO/Rh ABO/Rh Lab Routine Missed menses , unspecified gestational age Expected: 02/11/2024 (Approximate), Expires: 02/10/2025 [facility] Comment on above: Expected: 02/11/2024 (Approximate), Expires: 02/10/2025 Start: 02-11-2024 End: 02-10-2025 Blood type and Indirect antibody screen panel - Blood Type and screen Lab Routine Missed menses , unspecified gestational age Expected: 02/11/2024 (Approximate), Expires: 02/10/2025 [facility] Work Phone: Comment on above: Expected: 02/11/2024 (Approximate), Expires: 02/10/2025 Start: 02-11-2024 End: 02-10-2025 Drugs of abuse panel - Urine by Screen method Rapid drug screen, urine Lab Routine , unspecified gestational age Encounter for supervision of normal first in first trimester Expected: 02/11/2024 (Approximate), Expires: 02/10/2025 [facility] Comment on above: Expected: 02/11/2024 (Approximate), Expires: 02/10/2025 Start: 02-11-2024 End: 02-10-2025 US Pelvis transvaginal US OB transvaginal Imaging Routine Missed menses Expected: 02/11/2024 (Approximate), Expires: 02/10/2025 [facility] Comment on above: Expected: 02/11/2024 (Approximate), Expires: 02/10/2025 Start: 11-08-2023 End: 11-08-2023 Patient encounter procedure 11/08/2023 10:00 AM EDT Office Visit [facility] [address] [place] [address] Chavez Troncoso, ROOFING TECHNICIAN-APPAREL RENTAL CLERK [address] [place] [address] [facility] Start: 05-29-2023 Adult BMI Screening Adult BMI Screen ing [facility] Start: 05-29-2023 Depression Screening Depression Scre ening [facility] Start: 05-29-2023 Tobacco Screening Tobacco Screening [facility] Start: 12-15-2021 Screening for malignant neoplasm of cervix Pap Smear [facility] Start: 11-22-2020 DTaP,Tdap and Td Vaccines (7 - Td or Tdap) DTaP,Tdap and Td Vaccines (7 - Td or Tdap) [facility] Start: 10-07-2015 Adult BMI Follow Up Plan Adult BMI Follow Up Plan [facility] Bacteria identified in Urine by Culture Urine culture Microbiology Routine Missed menses Ordered: 02/11/2024 [facility] Comment on above: Ordered: 02/11/2024 CBC W Auto Differential panel - Blood CBC and differential Lab Routine Missed menses , unspecified gestational age Ordered: 02/11/2024 [facility] Comment on above: Ordered: 02/11/2024 CHLAMYDIA TRACHOMATI S (GENITO/STI) CHLAMYDIA TRACHOMATIS (GENITO/STI) Lab Routine STD exposure Ordered: 04/15/2024 [facility] Comment on above: Ordered: 04/15/2024 Cytology Cervical or vaginal smear or scraping study Pap Smear Pathology and Cytology Routine Well woman exam with routine gynecological exam Ordered: 04/15/2024 [facility] Comment on above: Ordered: 04/15/2024 Hemoglobin A1c/Hemoglobin.total in Blood Hemoglobin A1c Lab Routine Missed menses , unspecified gestational age Ordered: 02/11/2024 [facility] Comment on above: Ordered: 02/11/2024 Hepatitis B virus surface Ag [Presence] in Serum or Plasma by Immunoassay Hepatitis B surface antigen Lab Routine Missed menses , unspecified gestational age Ordered: 02/11/2024 [facility] Comment on above: Ordered: 02/11/2024 Hepatitis C virus Ab [Presence] in Serum or Plasma by Immunoassay Hepatitis C antibody Lab Routine Missed menses , unspecified gestational age Ordered: 02/11/2024 [facility] Comment on above: Ordered: 02/11/2024 HIV-1/HIV-2 antigen/antibody combination immunoassay HIV-1 and HIV-2 antibodies Lab Routine Missed menses , unspecified gestational age Ordered: 02/11/2024 [facility] Comment on above: Ordered: 02/11/2024 Neisseria gonorrhoea e DNA [Presence] in Unspecified specimen by RASHEED with probe detection Neisseria gonorrhea DNA probe, direct Lab Routine STD exposure Ordered: 04/15/2024 [facility] Comment on above: Ordered: 04/15/2024 Reagin Ab [Presence] in Serum by RPR RPR Lab Routine Missed menses , unspecified gestational age Ordered: 02/11/2024 [facility] Comment on above: Ordered: 02/11/2024 Rubella antibody, IgG Rubella an tibody, IgG Lab Routine Missed menses , unspecified gestational age Ordered: 02/11/2024 [facility] Comment on above: Ordered: 02/11/2024 SURESWAB(R) ADVANCED VAGINITIS PLUS, TMA SURESWAB(R) ADVANCED VAGINITIS PLUS, TMA Pathology and Cytology Routine Vaginal discharge Ordered: 04/15/2024 [facility] Work Phone: Comment on above: Ordered: 04/15/2024 Immunizations Immunization Date Immunization Notes Care Provider [facility] 07-10-2024 tetanus toxoid, redu john diphtheria toxoid, and acellular pertussis vaccine, adsorbed Ania Fenton MD Work Phone: [facility] 07-10-2024 Immunization, In Cli mayco,; Translations: [Drug or medicament (substance)] Ania Fenton MD Work Phone: [facility] Work Phone: 01-10-2021 Influenza, injectabl e, Madin Burr Canine Kidney, preservative free, quadrivalent Chavez Troncoso ROOFING TECHNICIAN-APPAREL RENTAL CLERK Work Phone: [facility] 01-10-2021 influenza virus vacc ine, unspecified formulation Ronald Fierro DO Work Phone: [facility] 11-22-2015 meningococcal oligosaccharide (groups A, C, Y and W-135) diphtheria toxoid conjugate vaccine (MCV4O) Chavez Troncoso ROOFING TECHNICIAN-APPAREL RENTAL CLERK Work Phone: [facility] 11-22-2010 tetanus toxoid, redu john diphtheria toxoid, and acellular pertussis vaccine, adsorbed Chavez Troncoso ROOFING TECHNICIANDayjet Work Phone: [facility] 10-20-2003 DTaP-hepatitis B and poliovirus vaccine Chavez Troncoso [facility] Work Phone: [facility] 10-20-2003 measles, mumps and rubella virus vaccine Chavez Troncoso ROOFING TECHNICIAN-[facility] Work Phone: [facility] 10-24-1998 diphtheria, tetanus toxoids and acellular pertussis vaccine, unspecified formulation Chavez Troncoso ROOFING TECHNICIAN-[facility] Work Phone: [facility] 10-24-1998 haemophilus influenz ae type b vaccine, conjugate unspecified formulation Chavez Tronocso ROOFING TECHNICIAN-[facility] Work Phone: [facility] 10-24-1998 measles, mumps and rubella virus vaccine Chavezdonnie Troncoso ROOFING TECHNICIAN-[facility] Work Phone: [facility] 06-08-1998 diphtheria, tetanus toxoids and acellular pertussis vaccine, unspecified formulation Chavez Troncoso ROOFING TECHNICIAN[facility] Work Phone: [facility] 06-08-1998 haemophilus influenz ae type b vaccine, conjugate unspecified formulation Chavze Troncoso ROOFING TECHNICIAN-[facility] Work Phone: [facility] 06-08-1998 poliovirus vaccine, unspecified formulation Chavez Troncoso ROOFING TECHNICIAN[facility] Work Phone: [facility] 04-01-1998 diphtheria, tetanus toxoids and acellular pertussis vaccine, unspecified formulation Chavez Troncoso ROOFING TECHNICIAN[facility] Work Phone: [facility] 04-01-1998 haemophilus influenz ae type b vaccine, conjugate unspecified formulation Chavez Troncoso ROOFING TECHNICIAN[facility] Work Phone: [facility] 04-01-1998 hepatitis B vaccine, pediatric or pediatric/adolescent dosage Chavezdonnie Troncoso ROOFING TECHNICIAN-[facility] Work Phone: [facility] 04-01-1998 poliovirus vaccine, unspecified formulation Chavez Troncoso ROOFING TECHNICIAN[facility] Work Phone: [facility] 01-12-1998 diphtheria, tetanus toxoids and acellular pertussis vaccine, unspecified formulation Chavez Karyna ROOFING TECHNICIAN-APPAREL RENTAL CLERK Work Phone: [facility] 01-12-1998 haemophilus influenz ae type b vaccine, conjugate unspecified formulation Chavez Troncoso ROOFING TECHNICIAN-APPAREL RENTAL CLERK Work Phone: [facility] 01-12-1998 poliovirus vaccine, unspecified formulation Chavez Troncoso ROOFING TECHNICIAN-APPAREL RENTAL CLERK Work Phone: [facility] 1997 hepatitis B vaccine, pediatric or pediatric/adolescent dosage Chavez Troncoso ROOFING TECHNICIAN-APPAREL RENTAL CLERK Work Phone: [facility] 1997 hepatitis B vaccine, pediatric or pediatric/adolescent dosage Chavez Troncoso ROOFING TECHNICIAN-APPAREL RENTAL CLERK Work Phone: [facility] Payers Date Payer Category Payer Medicaid [facility] [id number] 2024 Private Health Insurance [facility] MEDICAID [id number] 2024 Medicaid [place]ICAID [place] [id number] 2024 Medicaid [id number] 2017 [employer] Francisco Manzano ld Managed Care - PPO ANTHEM [id number] 2017 Unknown ANTHBARRY HERNANDEZ SS (PPO) [id number] 2017-Present [phone] [address] [place] [address] [id number]. [id number] 1997 Unknown [id number] 2.16.840.1.797701.3.579.2. 593 1997 Unknown [id number] 2.16.840.1.372369.3.579.2. 1286 1997 Unknown [id number] 2.16.840.1.500832.3.579.2. 128 1997 Unknown [id number] 2.16.840.1.178277.3.579.2. 128 1997 Unknown [id number] 2.16.840.1.925678.3.579.2. 128 1997 Unknown [id number] 2.16.840.1.397046.3.579.2. 128 1997 Unknown [id number] 2.16.840.1.376467.3.579.2. 128 1997 Unknown [id number] 2.16840.1.465154.3.579.2. 1285 1997 Unknown [id number] 2.16840.1.380577.3.579.2. 128 1997 Unknown [id number] 2.840.1.265348.3.579.2. 128 1997 Unknown [id number] 2.16840.1.200647.3.579.2. 128 1997 Unknown [id number] 2.16840.1.076267.3.579.2. 128 1997 Unknown [id number] 2.16840.1.358667.3.579.2. 128 1997 Unknown [id number] 2.16840.1.795743.3.579.2. 128 1997 Unknown [id number] 2.16840.1.128985.3.579.2. 128 1997 Unknown [id number] 2.16840.1.209092.3.579.2. 128 1997 Unknown [id number] 2.16840.1.379854.3.579.2. 128 1997 Unknown [id number] 2.16840.1.791649.3.579.2. 128 1997 Unknown [id number] 2.16840.1.455636.3.579.2. 1286 1997 Unknown [id number] 2.16840.1.340544.3.579.2. 128 1997 Unknown [id number] 2.16.840.1.911077.3.579.2. 128 1997 Unknown [id number] 2.16840.1.841288.3.579.2. 128 1997 Unknown [id number] 2.16840.1.921886.3.579.2. 128 1997 Unknown [id number] 2.840.1.761022.3.579.2. 1285 1997 Unknown [id number] 2.16840.1.485194.3.579.2. 128 1997 Unknown [id number] 2.0.1.632686.3.579.2. 128 1997 Unknown [id number] 2.840.1.459680.3.579.2. 1258 1997 Unknown [id number] 2.840.1.882829.3.579.2. 1258 1997 Unknown [id number] 2.840.1.969017.3.579.2. 1258 1997 Unknown [id number] 2.840.1.908925.3.579.2. 125 1997 Unknown [id number] 2.840.1.746917.3.579.2. 125 1997 Unknown [id number] 2.16840.1.161117.3.579.2. 1258 1997 Unknown [id number] 2.16840.1.656337.3.579.2. 125 1997 Unknown [id number] 2.16840.1.045886.3.579.2. 1258 1997 Unknown [id number] 2.16.840.1.654057.3.579.2. 1259 1959 Unknown [id number] Social History Date Type Detail Facility Start: 05-28-2022 End: 07-24-2024 [facility] Assigned At [facility] [employer] [facility] Start: 12-13-2023 [facility] Start: 1995 Sex assigned at Not on file [facility] Start: 05-28-2022 End: 04-04-2024 Tobacco smoking status NHIS Never smoked tobacco (finding) [facility] Start: 10-07-2014 End: 04-04-2024 Sex Female (finding) [facility] Start: 1995 Sex Assigned At Female [facility] Start: 05-28-2022 Tobacco use and exposure Smokeless tobacco non-user [facility] Start: 05-28-2022 End: 07-24-2024 Alcoholic beverage intake Ex-drinker (finding) [facility] Start: 05-28-2022 End: 07-24-2024 History of Social function [facility] Adolescent depressio n screening assessment 0 [facility] Medical Equipment Procedure Code Equipment Code Equipment Origin al Text Equipment Identifier Dates Start: 06-26-2024 End: 07-06-2024 Functional Status Date Assessment Result Facility [facility] Clinical Notes 11-23-2021 to 07-29-2024 EMILY Villalobos [...] of: EMILY Villalobos documented in this encounter [facility] 07-21-2024 Miscellaneous Notes Called pt [...] any diabetic medications. documented in this encounter [facility] 07-21-2024 Telephone encounter Note Called pt and [...] is currently not on any diabetic medications. [facility] 07-17-2024 History of Presen t illness Narrative Headache/epigastric pain/blurry vision/swelling? No Cramping/contractions? No Abnormal vaginal discharge? No Spotting or vaginal bleeding? No Loss or gush of fluid like your water may have broken? No Recent ER visits or hospitalizations? No Any concerns that you would like me to mention to the provider today? Delivery location [facility] Note Reason For [...] Disp: 200 strip, Rfl: 0 blood-glucose meter [facility] [place], Please check blood glucose fasting and 1 [...] morning., Disp: , Rfl: lancets [facility], To check blood glucose fasting and 1 [...] the morning., Disp: 150 tablet, Rfl: 3 [id number] acid ( 19) 29 mg iron- 1 [...] more likely to fail compared to insulin. crosstie inspector data on children whose mothers took [...] Insulin teaching was provided -delivery recommended at [facility] -delivery recommended at 37 weeks -the patient desires to have hybrid follow-up with her primary OB and the [facility] as she is struggling to be coming to [place] for routine visits due to geographic distance [...] Berto Suárez MD, FACOG (she/hers) Maternal- Medicine [facility] [address] [facility] 1st [place] [address] This document was created with [employer] technology. Though I make every effort to review the dictation as it is transcribed, on occasion the spoken word can be misinterpreted by the technology leading to inappropriate words, phrases, or sentences. This note is addressed to the requesting provider as a consultation for clinical guidance. Specific medical abbreviations are occasionally used and those are generally approved by the [place]?Board of?Obstetrics and?Gynecology?as well as?Dylan s abbreviations. The above plan of care was based solely on the diagnoses for which a consultation was requested. ?More frequent testing may be indicated based on her other medical/obstetrical conditions. The management of other or medical conditions is beyond the scope of requested consultation and will continue to be followed by the primary inspector aluminum boat or primary care provider. Note to patient: [...] of the practitioner. documented in this encounter [employer] 07-15-2024 History of Presen t illness Narrative [...] nursing note reviewed. Exam conducted with a edge worker present. Vitals: There is no height or [...] Rosalba Baer NP documented in this encounter [place] [address]-09-2025 History of Presen t illness Narrative Pt here for initial HROB 32w0d Denies lof vb ctx Confirms +fm No concerns today HR 86 [facility] Initial High Risk Obstetrics [...] mouth in the morning. 150 tablet 3 [id number] acid ( 19) 29 mg iron- 1 [...] 28 y.o. at 32w0d Dated by: 10w complicated by: arrhythmia/ SVT S/p hospital admission [...] vaginal delivery testing: Saturday/ NST/ [facility]VP at [facility] Reviewed labor warnings and kick counts Problem List Excessive growth affecting management of mother in second trimester, antepartum Intrauterine Overview First trimester Cell free DNA: low risk per patient Carrier screening 28 week labs CBC, HIV, Syphilis completed: yes Rh status: positive Third trimester Tdap: will do with regular OBGYN GBS at 36 weeks Mode of delivery: testing: Saturday/ NST/ [facility]VP at [facility] Polyhydramnios affecting Supraventricular tachycardia of fetus affecting [...] the hospital that she would deliver at [facility]. Advised patient to review with MFM as she prefers to continue her care with her primary obgyn and delivery hospital. Reviewed that the recommendation to deliver at [facility] would warrant care with our office and that after she would return to her primary obgyn except for the potential wound check or bp check. Ania Fenton MD MPH 07/13/2024 7:08 AM documented in this encounter [facility] 07-06-2024 History of Presen t illness Narrative CGM report reviewed. No medication needed at this time. KELLI Fernandes 07/06/24 1617 documented in this encounter [facility] 07-06-2024 Group counseling note Patient: Nisha Mtz [...] Face to face time was [address] [facility] Work Phone: 07-06-2024 Miscellaneous Notes Patient: Nisha Mtz Date: 07/06/2024 Vitals: 07/06/241614 [...] was 100 minutes. documented in this encounter [employer] 06-30-2024 History of Presen t illness Narrative [...] nursing note reviewed. Exam conducted with a edge worker present. Vitals: There is no height or [...] a day. Pt to be delivered at [facility] Orders Placed This Encounter Procedures US biophysical profile w non stress test POCT urinalysis dipstick manually resulted Follow Up: Patient is to return to office in 2 week for routine OB appointment. Documented by Hayley Oneill LPN on behalf of: Ronald Fierro DO documented in this encounter [facility] 06-29-2024 History of Presen t illness Narrative Spoke with Dr. Fierro's office pertaining to follow up appointments for patient. Per Dr. Suárez's note 06/25/24, patient is to receive 2x weekly NSTs with 1x weekly DVP to evaluate heart rhythm. She is scheduled to be seen at [facility] 07/17/24 at which time she will receive a growth ultrasound and assess heart function. She will also need an EKG, this day, which has already been ordered by Dr. Geronimo Shay, peds [employer]. documented in this encounter [facility] 06-29-2024 Miscellaneous Notes Recvd pt phone call. Pt declined class due to time away from work with recent admit, offered video visit and declined also due to time time away from work, stressed importance of diabetic ed, encouraged to contact OB and will forward to the diabetic team and OB. documented in this encounter [facility] 06-29-2024 Telephone encounter Note Recvd pt phone call. Pt declined class due to time away from work with recent admit, offered video visit and declined also due to time time away from work, stressed importance of diabetic ed, encouraged to contact OB and will forward to the diabetic team and OB. [facility] 06-26-2024 History of Presen t illness [...] Reset alarms and assisted with connecting to [facility] clinic practice. Verbalized understanding. Face to face time 20 minutes. Instructed patient on use of truemetrix glucometer and how to check blood sugars. Blood glucose log provided and instructed to check fasting and 1 hour after meals if Madhavi fails. Patient verbalized understanding. documented in this encounter [facility] 06-22-2024 Miscellaneous Notes Contract: [facility] OB resident with a question about changing medications. Secure chat sent to Dr. Browning documented in this encounter [facility] 06-22-2024 Telephone encounter Note Contract: [facility] OB resident with a question about changing medications. Secure chat sent to Dr. Browning [facility] 06-21-2024 Miscellaneous Notes Contract: [facility] calling for patient update. [facility] in labor and delivery. Sent secure chat to Dr Robin Browning. documented in this encounter [facility] 06-21-2024 Telephone encounter Note Contract: [facility] calling for patient update. [facility] in labor and delivery. Sent secure chat to Dr Robin Browning. [facility] 06-11-2024 History of Presen t illness [...] No Have you been seen here at [facility] in a previous ? No Recent ER visits or hospitalizations? No Bring blood sugar log or meter with you today? (Please bring them with you for every visit at [facility]) NA Flu vaccine (Jan-May)? NA Any [...] - 1.00 mg/dL Final METHOD TRACEABLE TO IDMS STANDARD Glucose 06/11/2024 79 65 - 99 [...] range has not been established by the distribution operations supervisor of this kit. The [place] [employer] recommends a Vitamin D [...] Berto Suárez MD, FACOG (she/hers) Maternal- Medicine [facility] [address] [facility] [address]st [place] [address] This document was created with [employer] technology. Though I make every effort to review the dictation as it is transcribed, on occasion the spoken word can be misinterpreted by the technology leading to inappropriate words, phrases, or sentences. This note is addressed to the requesting provider as a consultation for clinical guidance. Specific medical abbreviations are occasionally used and those are generally approved by the [place]?Board of?Obstetrics and?Gynecology?as well as?Dylan hernandez abbreviations. The above plan of care was based solely on the diagnoses for which a consultation was requested. ?More frequent testing may be indicated based on her other medical/obstetrical conditions. The management of other or medical conditions is beyond the scope of requested consultation and will continue to be followed by the primary inspector aluminum boat or primary care provider. Note to patient: [...] practitioner. documented [facility] History of Presen t illness Narrative [...] nursing note reviewed. Exam conducted with a edge worker present. Vitals: There is no height or [...] Ronald Fierro DO documented in this encounter [facility] 04-15-2024 History of Presen t [...] nursing note reviewed. Exam conducted with a edge worker present. Vitals: There is no height or [...] obtained without difficulty and patient [facility] obtained. Orders Placed This Encounter Procedures US OB 14+ weeks anatomy scan CHLAMYDIA TRACHOMATIS (GENITO/STI) Neisseria gonorrhea DNA probe, direct Alpha fetoprotein, maternal POCT urinalysis dipstick manually resulted Follow Up: Patient is to return to our office in 4 weeks for routine OB appointment Documented by Monse Arias LPN on behalf of: EMILY Villalobos documented in this encounter [facility] 04-14-2024 Miscellaneous Notes set up establish care with provider of choice LM on VM documented in this encounter [facility] 04-14-2024 Telephone encounter Note set up establish care with provider of choice [facility] 04-14-2024 Telephone encounter Note LM on VM [facility] 04-04-2024 Evaluation note Diagnosis Onset Date Resolution Influenza A acute April 04, 2024 10:32am [facility] Work Phone: [phone]) 139-754501-13-2025 History of Present illness Narrative* Ijeoma Carrera [...] or undercooked meat, and stay away from [facility]. Patient has been consulted regarding any further do's and don'tsof . Patient voiced understanding and all questions and concerns were answered. Follow Up: Patient is to return in 4 weeks for routine OB appointment. Documented by Ijeoma Carrera LPN on behalf of: Ronald Fierro DO documented in [facility] encounter[facility] [id number] History of Present illness Narrative* Annie Keith [...] or undercooked meat, and stay away from [facility]. Patient has also been advised to [...] by: Annie Keith MA documented in this encounterHed[facility] [id number] Miscellaneous Notes* Telephone Encounter - Lupe Stacy - 09/10/2023 10:02 AM EDT Reschedule 10/31 appt * Telephone Encounter - Lupe Stacy - 09/10/2023 10:02 AM EDT LM on VM * Telephone Encounter - Lupedewey Stacy - 09/10/2023 10:02 AM EDT Rescheduled [facility] Note* Telephone Encounter - Lupe Stacy - 09/10/2023 10:02 AM EDT Reschedule 10/31 appt [facility]07-09-[facility]24 Telephone encounter Note* Telephone Encounter - Lupe Stacy - 09/10/2023 10:02 AM EDT LM on VM [facility]07-09-2024 Telephone encounter Note* Telephone Encounter - Lupe Stacy - 09/10/2023 10:02 AM EDT Rescheduled [facility]09-22-20[facility] Evaluation note* Encounter Date Diagnosis Assessment [...] POSITIVE education handout discharge instructions. given. [facility] Other Evaluation note* Diagnosis Missed menses , unspecified gestational age Encounter for supervision of normal first in first trimester 10 weeks gestation of [facility]* Diagnosis Second trimester state, incidental 15 weeks gestation of documented in this encounter [facility] Healthcare[facility]* Diagnosis Well woman exam with routine gynecological exam Routine gynecological examination Second trimester state, incidental Vaginal discharge Leukorrhea, not specified as infective STD exposure 19 weeks gestation of Screening, , for anatomic survey Encounter for anatomic survey documented in this encounter [facility] HealthcareEvaluation note* Diagnosis Second trimester state, incidental 27 weeks gestation of tachycardia affecting management of mother Abnormality in heart rate/rhythm, unspecified as to episode of care or not applicable documented in this encounter [facility] HealthcareEvaluation note* Diagnosis 27 weeks gestation of - Primary Supraventricular tachycardia of fetus affecting management of Polyhydramnios affecting Excessive growth affecting management of in second trimester, single or unspecified fetus [facility] Diagnosis Supraventricular tachycardia of fetus affecting management of - Primary Polyhydramnios affecting [facility] Diagnosis Diet controlled gestational diabetes mellitus (GDM) in third trimester- Primary [facility] Diagnosis Diet controlled gestational diabetes mellitus (GDM) in third trimester- Primary [facility]* Diagnosis Third trimester state, incidental 30 weeks gestation of Supraventricular tachycardia of fetus affecting management of Polyhydramnios affecting Excessive growth affecting management of in third trimester, single or unspecified fetus documented [facility]* Diagnosis Diet controlled gestational diabetes mellitus (GDM) in third trimester [facility] Diagnosis Polyhydramnios affecting [O40.9XX0]- Primary documented [facility]* Diagnosis Diet controlled gestational diabetes mellitus (GDM) in third trimester documented [facility]* Diagnosis Supraventricular tachycardia of fetus affecting management of - Primary Intrauterine Excessive growth affecting management of in second trimester, single or unspecified fetus Polyhydramnios affecting [facility]* Diagnosis Third trimester state, incidental 32 weeks gestation of documented [facility]* Diagnosis 33 weeks gestation of - Primary Gestational diabetes mellitus (GDM) in third trimester, gestational diabetes method of control unspecified Supraventricular tachycardia of fetus affecting management of Excessive growth affecting management of in second trimester, single or unspecified fetus documented [facility]* Diagnosis Gestational diabetes mellitus (GDM) in third trimester, gestational diabetes method of control unspecified- Primary Supraventricular tachycardia of fetus affecting management of Excessive growth affecting management of in second trimester, single or unspecified fetus Polyhydramnios affecting documented [facility]* Diagnosis Third trimester state, incidental 34 weeks gestation of documented in this encounter [facility] HealthcareInstructionsNot on filedocumented in this encounterProMedica Health SystemInstructionsNot on filedocumented in this encounterProMediwv Health SystemInstructionsNot on filedocumented in this encounterProMedica Health SystemInstructionsNot on filedocumented in this encounterProW. [facility] Instructions* Attachments The following attachments cannot be sent through Care Everywhere. * Preeclampsia ([place]auan) documented in this encounterProW. [facility]. [facility] Health SystemInstructionsNot on file documented in this encounterProW. D. [facility] Health SystemInstructionsNot on file documented in this encounterProW. [facility]. [facility] Health SystemInstructionsNot on file documented in this encounterProW. [facility]. [facility] Health SystemInstructionsNot on file documented in this encounterProW. [facility]. [facility] Health SystemInstructionsNot on file documented in this encounterProMediwv Health SystemInstructionsNot on file documented in this encounterProW. [facility]. [facility] Health SystemInstructionsNot on file documented in this encounterProW. [facility]. [facility] Health SystemInstructionsNot on file documented in this encounterProW. D. [facility] Health SystemInstructionsNot on file documented in this encounterProWilson [address] Hospital SystemInstructions* Attachments The following attachments cannot be sent through Care Everywhere. * Your baby's movement before ([place]) documented in this encounterProW. [facility]. [facility] Health SystemInstructionsNot on file documented in this encounterProW. D. [facility] [employer] SystemInstructionsNot on file documented in this encounterProtestant [facility] Summary Purpose Family History No Family [...] section and content) DATE CREATED AUTHOR 12/08/2020 [facility] DATE CREATED AUTHOR AUTHOR'S ORGANIZ ATION 07/19/2024 [facility] DATE CREATED AUTHOR AUTHOR'S ORGANIZ ATION 07/30/[address] [facility] DATE CREATED AUTHOR AUTHOR'S ORGANIZ ATION 08/01/2024 [facility] EPIC REASON FOR VISIT [...] (GDM) in third trimester Berto Suárez MD [address], [address] [place] [id number] Phone: tel: fax: Maternal- Medicine at [facility] [address] [place] [address] Phone: tel: fax: Referral ID Status Reason Start Date Expiration Date Visits Requested Visits Authorized [id number] Pending Review Specialty Services Required 06/26/2024 06/26/2025 1 1 Reason Comments Initial Visit Reason Comments Polyhydraminos arrythmia GDM Care Teams (unrecognized sec tion and content) Lathe Setup Operator Relationship Specialty Start Date End Date Terrence Ventura MD [address] [place] [address] PCP - General Family Medicine 02/11/24 Lathe Setup Operator Relationship Specialty Start Date End Date Terrence Ventura MD [address] [place] [address] PCP - General Family Medicine 02/11/24 Lathe Setup Operator Relationship Specialty Start Date End Date Terrence Ventura MD [address] [place] [address] PCP - General Family Medicine 02/11/24 Lathe Setup Operator Relationship Specialty Start Date End Date Terrence Ventura MD [address] [place] [address] PCP - General Family Medicine 02/11/24 Team Status: Active Member Role Status Dates Terrence Ventura DO Primary Care Provider Active Team Status: Inactive Member Role Status Dates Terrence Ventura DO Primary Care Provider Active Start: April 04, 2024 End: April 04, 2024 Michell German APRN Attending Provider Active Start: April 04, 2024 End: April 04, 2024 Lathe Setup Operator Relationship Specialty Start Date End Date Chavez Troncoso APRN-APPAREL RENTAL CLERK [address] [place] [address] PCP - General Internal Medicine 09/03/23 Lathe Setup Operator Relationship Specialty Start Date End Date Terrence Ventura MD [address] [place] [address] PCP - General Family Medicine 02/11/24 Lathe Setup Operator Relationship Specialty Start Date End Date Chavez Troncoso APRN-APPAREL RENTAL CLERK [address] [place] [address] PCP - General Internal Medicine 09/03/23 Lathe Setup Operator Relationship Specialty Start Date End Date Terrence Ventura MD PCP - General Family Medicine 02/11/24 Lathe Setup Operator Relationship Specialty Start Date End Date Terrence Ventura MD PCP - General Family Medicine 02/11/24 Lathe Setup Operator Relationship Specialty Start Date End Date Terrence Ventura MD PCP - General Family Medicine 02/11/24 Lathe Setup Operator Relationship Specialty Start Date End Date Chavez Troncoso APRN-APPAREL RENTAL CLERK [address] [place] [address] PCP - General Internal Medicine 09/03/23 Lathe Setup Operator Relationship Specialty Start Date End Date Chavez Troncoso APRN-APPAREL RENTAL CLERK [address] [place] [address] PCP - General Internal Medicine 09/03/23 Lathe Setup Operator Relationship Specialty Start Date End Date Chavez Troncoso ROOFING TECHNICIAN-APPAREL RENTAL CLERK [address] [place] [address] PCP - General Internal Medicine 09/03/23 Lathe Setup Operator Relationship Specialty Start Date End Date Chavez Troncoso ROOFING TECHNICIAN-APPAREL RENTAL CLERK [address] [place] [address] PCP - General Internal Medicine 09/03/23 Lathe Setup Operator Relationship Specialty Start Date End Date Chavez Troncoso ROOFING TECHNICIAN-APPAREL RENTAL CLERK [address] [place] [address] PCP - General Internal Medicine 09/03/23 Lathe Setup Operator Relationship Specialty Start Date End Date Chavez Troncoso ROOFING TECHNICIAN-APPAREL RENTAL CLERK [address] [place] [address] PCP - General Internal Medicine 09/03/23 Lathe Setup Operator Relationship Specialty Start Date End Date Chavez Troncoso ROOFING TECHNICIAN-APPAREL RENTAL CLERK [address] [place] [address] PCP - General Internal Medicine 09/03/23 Lathe Setup Operator Relationship Specialty Start Date End Date Chavez Troncoso ROOFING TECHNICIAN-APPAREL RENTAL CLERK [address] [place] [address] PCP - General Internal Medicine 09/03/23 Lathe Setup Operator Relationship Specialty Start Date End Date Terrence Ventura MD PCP - General Family Medicine 02/11/24 Lathe Setup Operator Relationship Specialty Start Date End Date Terrence Ventura MD PCP - General Family Medicine 02/11/24 Lathe Setup Operator Relationship Specialty Start Date End Date Chavez Troncoso ROOFING TECHNICIAN-APPAREL RENTAL CLERK [address] [place] [address] PCP - General Internal Medicine 09/03/23 Lathe Setup Operator Relationship Specialty Start Date End Date Chavez Troncoso ROOFING TECHNICIAN-APPAREL RENTAL CLERK [address] [place] [address] PCP - General Internal Medicine 09/03/23 Lathe Setup Operator Relationship Specialty Start Date End Date Chavez Troncoso ROOFING TECHNICIAN-APPAREL RENTAL CLERK [address] [place] [address] PCP - General Internal Medicine 09/03/23 Lathe Setup Operator Relationship Specialty Start Date End Date Terrence Ventura MD PCP - General Family Medicine 02/11/24 Lathe Setup Operator Relationship Specialty Start Date End Date Terrence Ventura MD PCP - General Family Medicine 02/11/24 Lathe Setup Operator Relationship Specialty Start Date End Date Chavez Troncoso ROOFING TECHNICIAN-APPAREL RENTAL CLERK [address] [place] [address] PCP - General Internal Medicine 09/03/23 Lathe Setup Operator Relationship Specialty Start Date End Date Chavez Troncoso, ROOFING TECHNICIAN-APPAREL RENTAL CLERK [address] [place] [address] PCP - General Internal Medicine 09/03/23 Lathe Setup Operator Relationship Specialty Start Date End Date Chavez Troncoso, ROOFING TECHNICIAN-APPAREL RENTAL CLERK [address] [place] [address] PCP - General Internal Medicine 09/03/23 Lathe Setup Operator Relationship Specialty Start Date End Date Terrence Ventura MD PCP - General Family Medicine 02/11/24 Lathe Setup Operator Relationship Specialty Start Date End Date Terrence Ventura MD [address] [place] [address] PCP - General Family Medicine 02/11/24 Lathe Setup Operator Relationship Specialty Start Date End Date Terrence Ventura MD [address] [place] [address] PCP - General Family Medicine 02/11/24 Goals [...] BE BASED ON THE PRIMARY CLINICAL RECORDS. [email or web address] [email or web address] provides no warranty or guarantee of the accuracy or completeness of information in this document.
[2024-08-03 19:55] VITALS: BP 118/54; PULSE 85
== END 2024-08-03 20:11 | disposition home or self-care (01) ==
LOC: FBCO 19:37 → FBC 19:39
PROVIDERS: PCP Family Medicine; Visit Provider Obstetrics & Gynecology
DX: O35.8XX0 Maternal care for other (suspected) fetal abnormality and damage, not applicable or unspecified (principal); Z3A.35 35 weeks gestation of pregnancy
CPT/HCPCS: 59025

== ENCOUNTER 2024-08-06 19:08 | Outpatient (OUT) | payer OTHER, SELFPAY ==
--- NOTE | 2024-08-06 19:13 | US_ITS ---
[place] [id number] Patient Name: NISHA FAJARDO MRN: [id number] date: 1995 Sex: F Assigned Patient Location: [facility] Current Patient Location: Accession/Order Number: [id number] Exam Date: 08/06/2024 21:03 Report Date: 08/06/2024 21:04 At the request of: PHIL BURROUGHS DO Procedure: US OB BPP w non-stress Ultrasound biophysical profile HISTORY: Excessive growth Adequate breathing movement, gross body movement, tone and amniotic fluid volume for total score of 8 out of 8. The amniotic fluid index is 15.3cm within normal limits. The heart rate 129 bpm. US/US OB BPP w non-stress IMPRESSION: Adequate ultrasound biophysical profile Impression dictated by: Neo Buck M.D. 08/06/2024 9:04 PM Dictation Location: [place] [address] Electronically authenticated by: [id number] Y Date: 08/06/2024 21:04
--- OUTSIDE RECORDS SUMMARY | 2024-08-06 19:13 | XMS_ITS | CCD ---
Author Organization [facility] ion [facility] Care Team Providers Care Dog Daycare Provider Name Role Phone HEIDY, DR MECHELLE Serrano Attending Unavailable HEIDY, DR MECHELLE Serrano Consulting Unavailable HEIDY, DR MECHELLE Serrano Admitting Unavailable Marianna Moralez Unavailable Terrence Ventura MD Primary Care Provider Karyna TYPE PROOF REPRODUCER-SPORTS RECRUITER, [facility] Primary Care Provider Terrence Ventura MD Primary Care Provider Karyna TYPE PROOF REPRODUCER-SPORTS RECRUITER, [facility] Primary Care Provider KARYNA, CHAVEZ L Referring Unavailable KARYNA, CHAVEZ L Primary Care Unavailable CHELSEA CARSON Attending Unavailable CHELSEA CARSON Referring Unavailable CHELSEA CARSON Attending Unavailable SRIRONALD PITTMAN Attending Unavailable SRI, RONALD Attending Unavailable ROSALBA BAER Attending Unavailable SRI, RONALD Attending Unavailable HYUNCHELSEA Attending Unavailable SRI, RONALD R Referring Unavailable KARYNA, CHAVEZ L Primary Care Unavailable BERTO SUÁREZ Attending Unavailable SRI, RONALD R Referring Unavailable KARYNA, CHAVEZ L Primary Care Unavailable VANESA SEGOVIA Admitting Unavailable VANESA SEGOVIA Attending Unavailable KARYNA, CHAVEZ L Primary Care Unavailable MEHREEN SHAY Consulting UnavailKATLYN Hernandez Consulting Unavailable LARISSA DIAZ Consulting Unavailable AHMET VALVERDE Consulting Unavailable KARNYA, CHAVEZ L Primary Care Unavailable SRI, RONALD [...] Unavailable KARYNA, CHAVEZ L Primary Care Unavailable MARTHA STAPLES Attending Unavailable ANIA FENTON Referring Unavailable KARYNA, CHAVEZ L [...] Active blood-glucose meter misc (10 sources) Start: 05-05-2025 blood-glucose meter misc Indications: Diet controlled gestational diabetes mellitus (GDM) in third trimester Please check blood glucose fasting and 1 hour after each meal 1 each 07/06/2024 Active Start: 06-26-2024 End: 07-06-2024 blood-glucose meter [facility] Ind ications: Diet controlled gestational diabetes mellitus (GDM) in third trimester Please check blood glucose fasting and 1 hour after each meal 1 each 06/26/2024 07/06/2024 Discontinued (Reorder) Start: 06-26-2024 blood-glucose meter [facility] Indications: Diet controlled gestational diabetes mellitus (GDM) [...] oral tablet (19 sources) Cardiac Glycoside Start: 06-28-2024 take 1 [...] 10 5 April 04, 2024 12:00am Pnv,Calcium 13-Irxa-Jojlg Acid ( Vitamin Plus Low Iron) 27 mg iron- 1 mg tablet (1 source) Start: 04-04-2024 take 1 tablet by mouth once daily Pnv,Calcium 24-Akpp-Kzwth Acid ( Vitamin Plus Low Iron) 27 mg iron- 1 mg tablet Active 1 TAB PO Daily April 04, 2024 12:00am potassium chloride 10 meq extended release oral tablet (19 sources) Start: 06-28-2024 take 5 tablets by mouth in the morning potassium chloride CR (Klor-Con) 10 MEQ ER tablet Take 50 mEq by mouth in the morning. 06/28/2024 Active re828-sexi-hmmlv acid ( 19) 29 mg iron- 1 mg tablet,chewable (18 sources) bh651-xuxc-nosoc acid ( 19) 29 mg iron- 1 mg tablet,chewable Chew 1 tablet and swallow in the morning. Active jm541-x enrique-folic acid ( 19) 29 mg iron- [...] 06-11-2024 Episodic Other aftercare (1 source) Other watermelon inspector (current) drug therapy; Translations: [Other senior care (current) drug therapy] Onset: 06-11-2024 Episodic Other [...] EXPOS COVID-19] Onset: 12-07-2020 Unclassified (1 source) Routine Visit Onset: 08-04-2024 Unclassified (1 source) High Risk Gestation Onset: 07-24-2024 Unclassified (1 source) Initial Visit Onset: 07-10-2024 Unclassified (1 source) Gestational Diabetes Onset: 07-06-2024 Unclassified (1 source) Add on abnormal heart rhythm Onset: 06-11-2024 Past or Other Problems Problem [...] Test Name Value Interpretation Reference Range Facility STREP B SCREENon 08-04-2024 STREP B SCREEN CULTURE RESULTS NEGATIVE FOR GROUP B STREPTOCOCCUS BY NUCLEIC ACID AMPLIFICATION Normal [facility] Comment on above: Performed By: #### C BCA, CMP, 81275-3, 48907-1, 2777-1, 17282- 5 #### [facility] ([id number]) [address] [place] [address] US OB BPP W NON-STRESS on 07-31-[address] [address] Ultrasound Report Signed Patient: NISHA MTZ MR#: [id number] : 1995 Acct:[id number] Age/Sex: 28 / F ADM Date: 07/30/24 Loc: US Attending Dr: Ronald Fierro D.O. Ordering Physician: Ronald Fierro D.O. Date of Service: 07/30/24 Procedure(s): US OB BPP w non-stress Accession Number(s): [id number] cc: TERRENCE VENTURA Corey D.O. [address] [address] Patient Name: NISHA MTZ MRN: [id number] date: 1995 Sex: F Assigned Patient Location: [facility] Current Patient Location: Accession/Order Number: [id number] Exam Date: 07/31/2024 08:53 Report Date: 07/31/2024 [...] Roldan M.D. 07/31/2024 8:55 AM Dictation Location: [place] [address] Electronically authenticated by: [id number] Y Date: 07/31/2024 08:55 Dictated By: Hayley Roldan M.D. Signed By: 07/31/24 0857 DD/ 0855 TD/TT: Business Intern: [facility] Radiology, Radiologist, - 07/31/2024 [place] [address] Ultrasound Report Signed Patient: NISHA MTZ MR#: [id number] : 1995 Acct:[id number] Age/Sex: 28 / F ADM Date: 07/30/24 Loc: US Attending Dr: Ronald Fierro D.O. Ordering Physician: Ronald Fierro D.O. Date of Service: 07/30/24 Procedure(s): US OB BPP w non-stress Accession Number(s): [id number] cc: TERRENCE VENTURA Corey D.O. [place] [address] Patient Name: NISHA MTZ MRN: [id number] date: 1995 Sex: F Assigned Patient Location: [facility] Current Patient Location: Accession/Order Number: [id number] Exam Date: 07/31/2024 08:53 Report Date: 07/31/2024 [...] Roldan M.D. 07/31/2024 8:55 AM Dictation Location: [place] [address] Electronically authenticated by: [id number] Y Date: 07/31/2024 08:55 Dictated By: Hayley Roldan M.D. Signed By: 07/31/24 0857 DD/ 0855 TD/TT: Business Intern: [facility] Radiology Study observation (narrative) [facility] OB BPP W NON-STRESS Ordered By: Radiologist Radiology on 07-31-2024 [facility] [employer] Work Phone: Urinalysis macro (dipstick) panel (U)on 07-29-2024 Bilirubin, UA Negative Negative - 4(70) +++ mg/dL [facility] Blood, UA Negative Negative - 50 Jordan/mcL [facility] Clarity, UA Clear [facility] re Color, UA Yellow [facility] Glucose, UA Negative Negative - 1999(110) ++++ mg/dL [facility] Interpretation and review of laboratory results Abnormal [facility] Ketones, UA Positive Negative - 160(16) ++++ mg/dL [facility] Leukocytes, UA Negative Negative - 500+++ Leanne/mcL [facility] Nitrite, UA Negative Negative - Positive [facility] pH, UA 6.5 5 - 9 [facility] Healthcar e Protein, UA Negative Negative - 1999(20) ++++ mg/dL [facility] Spec Grav, UA 1.02 1 - 1.03 [facility] care Urobilinogen, UA 1.0 0.2 - 12 mg/dL [facility] US OB BPP W NON-STRESS on 07-17-2024 [place] [address] Ultrasound Report Signed Patient: NISHA MTZ MR#: [id number] : 1995 Acct:[id number] Age/Sex: 28 / F ADM Date: 07/16/24 Loc: US Attending Dr: Ronald Fierro D.O. Ordering Physician: Ronald Fierro D.O. Date of Service: 07/16/24 Procedure(s): US OB BPP w non-stress Accession Number(s): [id number] cc: TERRENCE VENTURA Corey D.O. [address] [address] Patient Name: NISHA MTZ MRN: [id number] date: 1995 Sex: F Assigned Patient Location: [facility] Current Patient Location: Accession/Order Number: [id number] Exam Date: 07/17/2024 06:44 Report Date: 07/17/2024 06:48 At the request of: RONALD FIERRO DO Procedure: US OB BPP w non-stress US OB BPP w non-stress 07/16/2024 7:50 PM SIGNS AND SYMPTOMS: 12/05/2023 Polyhydraminos, supraventricular tachycarida PROTOCOL: Grayscale and color Doppler sonographic images of the pelvis were obtained COMPARISON: 07/09/2024 FINDINGS: The glove cutter reports a BPP of 8 out of 8. SKYLAR is normal at 25.2 cm. heart rate 128 bpm. US/US OB BPP w non-stress Impression: BPP 8 out of 8. Impression dictated by: Jorge Lam M.D. 07/17/2024 6:48 AM Dictation Location: [place] [address] Electronically authenticated by: [id number] Y Date: 07/17/2024 06:48 Dictated By: Jorge Lam M.D. Signed By: 07/17/2451 DD/ TD/TT: Business Intern: [facility] Radiology, Radiologist, - 07/17/2024 [place] [address] Ultrasound Report Signed Patient: NISHA MTZ MR#: [id number] : 1995 Acct:[id number] Age/Sex: 28 / F ADM Date: 07/16/24 Loc: US Attending Dr: Ronald Fierro D.O. Ordering Physician: Ronald Fierro D.O. Date of Service: 07/16/24 Procedure(s): US OB BPP w non-stress Accession Number(s): [id number] cc: TERRENCE VENTURA Corey D.O. The [place] [id number] Patient Name: NISHA MTZ MRN: [facility]:[id number] date: 1995 Sex: F Assigned Patient Location: [facility] Current Patient Location: Accession/Order Number: [id number] Exam Date: 07/17/2024 06:44 Report Date: 07/17/2024 06:48 At the request of: RONALD FIERRO DO Procedure: US OB BPP w non-stress US OB BPP w non-stress 07/16/2024 7:50 PM SIGNS AND SYMPTOMS: 12/05/2023 Polyhydraminos, supraventricular tachycarida PROTOCOL: Grayscale and color Doppler sonographic images of the pelvis were obtained COMPARISON: 07/09/2024 FINDINGS: The glove cutter reports a BPP of 8 out of 8. SKYLAR is normal at 25.2 cm. heart rate 128 bpm. US/US OB BPP w non-stress Impression: BPP 8 out of 8. Impression dictated by: Jorge Lam M.D. 07/17/2024 6:48 AM Dictation Location: [facility] Electronically authenticated by: [id number] Y Date: 07/17/2024 06:48 Dictated By: Jorge Lam M.D. Signed By: 07/17/2451 DD/ 7 TD/TT: Business Intern: [facility] Radiology Study observation (narrative) [facility] US OB BPP W NON-STRESS Ordered By: Radiologist Radiology on 07-17-2024 [facility] [employer] Work Phone: Urinalysis macro (dipstick) panel (U)on 07-15-2024 Bilirubin, UA Negative Negative - 4(70) +++ mg/dL [facility] Blood, UA Negative Negative - 50 Jordan/mcL [facility] Clarity, UA Clear [facility] re Color, UA Yellow [facility] e Glucose, UA Negative Negative - 1999(110) ++++ mg/dL [facility] Interpretation and review of laboratory results Normal [facility] Ketones, UA Negative Negative - 160(16) ++++ mg/dL [facility] Leukocytes, UA Negative Negative - 500+++ Leanne/mcL [facility] Nitrite, UA Negative Negative - Positive [facility] pH, UA 6 5 - [address] [facility] e Protein, UA Negative Negative - 1999(20) ++++ mg/dL [facility] Spec Grav, UA 1.02 1 - 1.03 [facility] Urobilinogen, UA 0.2 0.2 - 12 mg/dL [facility] Glucose random or fasting- P OCTOrdered By: Ravinder Burnett on 07-06-2024 External Glucose Fasting Or Random (Fbs) 91 [facility] Urinalysis macro (dipstick) panel (U)on 06-30-2024 Bilirubin, UA Negative Negative - 4(70) +++ mg/dL [facility] Blood, UA Negative Negative - 50 Jordan/mcL [facility] Clarity, UA Clear [facility] Healthwa re Color, UA Yellow [facility] Healthcar e Glucose, UA Negative Negative - 1999(110) ++++ mg/dL [facility] Interpretation and review of laboratory results Abnormal [facility] Ketones, UA Positive Negative - 160(16) ++++ mg/dL [facility] Leukocytes, UA Negative Negative - 500+++ Leanne/mcL [facility] Nitrite, UA Negative Negative - Positive [facility] pH, UA 6 5 - [address] [facility] e Protein, UA Negative Negative - 1999(20) ++++ mg/dL [facility] Spec Grav, UA 1.025 1 - 1.03 [facility] Urobilinogen, UA 1.0 0.2 - 12 mg/dL [facility] BEDSIDE GLUCOSEon 06-28-2024 Glucose [Mass/Vol] 124 mg/dL High 65-99 [facility] Comment on above: Performed By: #### C BCA, CMP, 83500-9, 48542-4, 2777-1, 87524- 5 #### [facility] ([id number]) [address], [address] [place] [address] Glucose [Mass/Vol] 92 mg/dL Normal 65-99 [facility] Comment on above: Performed By: #### C BCA, CMP, 74912-8, 40992-2, 2777-1, 56274- 5 #### [facility] ([id number]) [address], [address] [place] [address] COMPREHENSIVE METABOLIC PANE Ab 06-28-2024 Albumin [Mass/Vol] 3.3 g/dL Normal 3.2-5.3 [facility] Comment on above: Performed By: #### C BCA, CMP, 50831-3, 85544-5, 2777-1, 65397- 5 #### [facility] ([id number]) [address], [address] [place] [address] ALP [Catalytic activity/Vol] 74 U/L Normal 39-130 [facility] Comment on above: Performed By: #### C BCA, CMP, 77916-4, 80917-2, 2777-1, 26161- 5 #### [facility] ([id number]) [address], [address] [place] [address] ALT [Catalytic activity/Vol] 8 U/L Normal <=31 [facility] Comment on above: Performed By: #### C BCA, CMP, 81917-6, 94595-9, 2777-1, 11869- 5 #### [facility] ([id number]) [address], [address] [place] [address] Anion gap [Moles/Vol] 12 mmol/L Normal 5-15 [facility] Comment on above: Performed By: #### C BCA, CMP, 54586-0, 61165-1, 2777-1, 82497- 5 #### [facility] ([id number]) [address], [address] [place] [address] AST [Catalytic activity/Vol] 13 U/L Normal <=41 [facility] Comment on above: Performed By: #### C BCA, CMP, 94337-1, 43873-3, 2777-1, 78753- 5 #### [facility] ([id number]) [address], [address] [place] [address] Bilirubin [Mass/Vol] 0.4 mg/dL Normal 0.3-1.2 [facility] Comment on above: Performed By: #### C BCA, CMP, 90520-8, 02500-1, 2777-1, 48274- 5 #### [facility] ([id number]) [address], [address] [place] [address] Calcium [Mass/Vol] 9.0 mg/dL Normal 8.5-10.5 [facility] Comment on above: Performed By: #### C BCA, CMP, 99948-5, 05748-3, 2777-1, 99351- 5 #### [facility] ([id number]) [address], [address] [place] [address] Chloride [Moles/Vol] 106 mmol/L Normal 98-109 [facility] Comment on above: Performed By: #### C BCA, CMP, 71821-0, 66116-7, 2777-1, 23768- 5 #### [facility] ([id number]) [address], [address] [place] [address] CO2 [Moles/Vol] 21 mmol/L Low 22-32 [facility] Comment on above: Performed By: #### C BCA, CMP, 84145-8, 72919-1, 2777-1, 68247- 5 #### [facility] ([id number]) [address], [address] [place] [address] Creatinine [Mass/Vol] 0.35 mg/dL Low 0.40-1.00 [facility] Comment on above: Result Comment: METH OD TRACEABLE TO IDMS STANDARD Performed By: #### C BCA, CMP, 56901-9, 31494-5, 2777-1, 47400-4 #### [facility] ([id number]) [address], [address] [place] [address] EGFR (CKD-EPI) NON-RACE DEPENDENT >^90 Normal >=60 [facility] Comment on above: Result Comment: Repo rted eGFR is based on the CKD-EPI 2020 equation that does not use a race coefficient. Performed By: #### C BCA, CMP, 18385-7, 96901-9, 2777-1, 76190-6 #### [facility] ([id number]) [address], [address] [place] [address] Glucose [Mass/Vol] 94 mg/dL Normal 65-99 [facility] Comment on above: Performed By: #### C BCA, CMP, 31524-9, 08720-6, 2777-1, 05060- 5 #### [facility] ([id number]) [address], [address] [place] [address] Potassium [Moles/Vol] 3.6 mmol/L Normal 3.5-5.0 [facility] Comment on above: Performed By: #### C BCA, CMP, 25133-1, 92970-3, 2777-1, 87600- 5 #### [facility] ([id number]) [address], [address] [place] [address] Protein [Mass/Vol] 5.7 g/dL Low 6.0-8.0 [facility] Comment on above: Performed By: #### C BCA, CMP, 57692-4, 87768-6, 2777-1, 30632- 5 #### [facility] ([id number]) [address], [address] [place] [address] Sodium [Moles/Vol] 139 mmol/L Normal 134-146 [facility] Comment on above: Performed By: #### C BCA, CMP, 24315-2, 81288-8, 2777-1, 00336- 5 #### [facility] ([id number]) [address], [address] [place] [address] Urea nitrogen [Mass/Vol] 6 mg/dL Normal 5-23 [facility] Comment on above: Performed By: #### C BCA, CMP, 08247-6, 60818-6, 2777-1, 26865- 5 #### [facility] ([id number]) [address], [address] [place] [address] COMPREHENSIVE METABOLIC PANE Ab 06-27-2024 Albumin [Mass/Vol] 3.3 g/dL Normal 3.2-5.3 [facility] Comment on above: Performed By: #### C BCA, CMP, 49442-6, 39096-6, 2777-1, 51101- 5 #### [facility] ([id number]) [address], [address] [place] [address] ALP [Catalytic activity/Vol] 71 U/L Normal 39-130 [facility] Comment on above: Performed By: #### C BCA, CMP, 65109-7, 96794-4, 2777-1, 58960- 5 #### [facility] ([id number]) [address], [address] [place] [address] ALT [Catalytic activity/Vol] 7 U/L Normal 0-31 [facility] Comment on above: Performed By: #### C BCA, CMP, 09578-3, 83252-4, 2777-1, 39614- 5 #### [facility] ([id number]) [address], [address] [place] [address] Anion gap [Moles/Vol] 10 mmol/L Normal 5-15 [facility] Comment on above: Performed By: #### C BCA, CMP, 28241-4, 87840-6, 2777-1, 01346- 5 #### [facility] ([id number]) [address], [address] [place] [address] AST [Catalytic activity/Vol] 11 U/L Normal 0-41 [facility] Comment on above: Performed By: #### C BCA, CMP, 59875-3, 07064-3, 2777-1, 10478- 5 #### [facility] ([id number]) [address], [address] [place] [address] Bilirubin [Mass/Vol] 0.4 mg/dL Normal 0.3-1.2 [facility] Comment on above: Performed By: #### C BCA, CMP, 59278-0, 29306-5, 2777-1, 53090- 5 #### [facility] ([id number]) [address], [address] [place] [address] Calcium [Mass/Vol] 9.0 mg/dL Normal 8.5-10.5 [facility] Comment on above: Performed By: #### C BCA, CMP, 12960-7, 72321-2, 2777-1, 62703- 5 #### [facility] ([id number]) [address], [address] [place] [address] Chloride [Moles/Vol] 105 mmol/L Normal 98-109 [facility] Comment on above: Performed By: #### C BCA, CMP, 86669-1, 09534-1, 2777-1, 06674- 5 #### [facility] ([id number]) [address], [address] [place] [address] CO2 [Moles/Vol] 22 mmol/L Normal 22-32 [facility] Comment on above: Performed By: #### C BCA, CMP, 69555-1, 63032-9, 2777-1, 25531- 5 #### [facility] ([id number]) [address] [place] [address] Creatinine [Mass/Vol] 0.30 mg/dL Low 0.40-1.00 [facility] Comment on above: Result Comment: METH OD TRACEABLE TO IDMS STANDARD Performed By: #### C BCA, CMP, 13880-8, 55696-4, 2777-1, 21663-2 #### [facility] ([id number]) [address], [address] [place] [address] eGFR (CKD-EPI) NON-RACE DEPENDENT >90 Normal >59 [facility] Comment on above: Result Comment: Reported eGFR is based on the CKD-EPI 2020 equation that does not use a race coefficient. Performed By: #### C BCA, CMP, 39240-9, 72916-0, 2777-1, 69825-3 #### [facility] ([id number]) [address], [address] [place] [address] Glucose [Mass/Vol] 104 mg/dL High 65-99 [facility] Comment on above: Performed By: #### C BCA, CMP, 75766-6, 99804-4, 2777-1, 83768- 5 #### [facility] ([id number]) [address], [address] [place] [address] Potassium [Moles/Vol] 3.5 mmol/L Normal 3.5-5.0 [facility] Comment on above: Performed By: #### C BCA, CMP, 06209-2, 08347-1, 2777-1, 77138- 5 #### [facility] ([id number]) [address], [address] [place] [address] Protein [Mass/Vol] 5.6 g/dL Low 6.0-8.0 [facility] Comment on above: Performed By: #### C BCA, CMP, 16251-6, 41567-5, 2777-1, 91788- 5 #### [facility] ([id number]) [address], [address] [place] [address] Sodium [Moles/Vol] 137 mmol/L Normal 134-146 [facility] Comment on above: Performed By: #### C BCA, CMP, 05158-6, 67837-8, 2777-1, 20100- 5 #### [facility] ([id number]) [address], [address] [place] [address] Urea nitrogen [Mass/Vol] 6 mg/dL Normal 5-23 [facility] Comment on above: Performed By: #### C BCA, CMP, 10910-2, 92292-7, 2777-1, 07363- 5 #### [facility] ([id number]) [address], [address] [place] [address] Glucose Glucometer (BldC) [M ass/Vol]on 06-27-2024 Glucose [Mass/Vol] 102 mg/dL High 65-99 [facility] Glucose [Mass/Vol] 115 mg/dL High 65-99 [facility] Glucose [Mass/Vol] 183 mg/dL High 65-99 [facility] Glucose [Mass/Vol] 156 mg/dL High 65-99 [facility] Glucose [Mass/Vol] 108 mg/dL High 65-99 [facility] MAGNESIUMon 06-27-2024 Magnesium [Mass/Vol] 1.5 mg/dL Low 1.8-2.6 [facility] Comment on above: Performed By: #### C BCA, CMP, 67763-2, 10941-3, 2777-1, 46426- 5 #### [facility] ([id number]) [address], [address] [place] [address] COMPREHENSIVE METABOLIC PANE Ab 06-26-2024 Albumin [Mass/Vol] 3.4 g/dL Normal 3.2-5.3 [facility] Comment on above: Performed By: #### C BCA, CMP, 91145-1, 36403-0, 2777-1, 79654- 5 #### [facility] ([id number]) [address], [address] [place] [address] ALP [Catalytic activity/Vol] 70 U/L Normal 39-130 [facility] Comment on above: Performed By: #### C BCA, CMP, 71435-3, 96197-7, 2777-1, 04139- 5 #### [facility] ([id number]) [address], [address] [place] [address] ALT [Catalytic activity/Vol] 8 U/L Normal 0-31 [facility] Comment on above: Performed By: #### C BCA, CMP, 48671-0, 70068-4, 2777-1, 37529- 5 #### [facility] ([id number]) [address], [address] [place] [address] Anion gap [Moles/Vol] 10 mmol/L Normal 5-15 [facility] Comment on above: Performed By: #### C BCA, CMP, 57036-4, 13609-4, 2777-1, 97060- 5 #### [facility] ([id number]) [address], [address] [place] [address] AST [Catalytic activity/Vol] 13 U/L Normal 0-41 [facility] Comment on above: Performed By: #### C BCA, CMP, 79737-0, 72739-9, 2777-1, 42167- 5 #### [facility] ([id number]) [address], [address] [place] [address] Bilirubin [Mass/Vol] 0.3 mg/dL Normal 0.3-1.2 [facility] Comment on above: Performed By: #### C BCA, CMP, 46641-3, 98425-1, 2777-1, 63277- 5 #### [facility] ([id number]) [address], [address] [place] [address] Calcium [Mass/Vol] 9.5 mg/dL Normal 8.5-10.5 [facility] Comment on above: Performed By: #### C BCA, CMP, 52186-0, 25377-6, 2777-1, 39652- 5 #### [facility] ([id number]) [address], [address] [place] [address] Chloride [Moles/Vol] 105 mmol/L Normal 98-109 [facility] Comment on above: Performed By: #### C BCA, CMP, 97581-6, 66910-7, 2777-1, 87229- 5 #### [facility] ([id number]) [address], [address] [place] [address] CO2 [Moles/Vol] 24 mmol/L Normal 22-32 [facility] Comment on above: Performed By: #### C BCA, CMP, 80355-9, 63269-0, 2777-1, 42976- 5 #### [facility] ([id number]) [address], [address] [place] [address] Creatinine [Mass/Vol] 0.34 mg/dL Low 0.40-1.00 [facility] Comment on above: Result Comment: METH OD TRACEABLE TO IDMS STANDARD Performed By: #### C BCA, CMP, 48881-7, 22766-7, 2777-1, 90301-1 #### [facility] ([id number]) [address], [address] [place] [address] eGFR (CKD-EPI) NON-RACE DEPENDENT >90 Normal >59 [facility] Comment on above: Result Comment: Reported eGFR is based on the CKD-EPI 2020 equation that does not use a race coefficient. Performed By: #### C BCA, CMP, 97020-7, 39382-7, 2777-1, 48718-8 #### [facility] ([id number]) [address], [address] [place] [address] Glucose [Mass/Vol] 100 mg/dL High 65-99 [facility] Comment on above: Performed By: #### C BCA, CMP, 29053-4, 70847-8, 2777-1, 01749- 5 #### [facility] ([id number]) [address], [address] [place] [address] Potassium [Moles/Vol] 3.6 mmol/L Normal 3.5-5.0 [facility] Comment on above: Performed By: #### C BCA, CMP, 88091-3, 84057-2, 2777-1, 20729- 5 #### [facility] ([id number]) [address], [address] [place] [address] Protein [Mass/Vol] 5.7 g/dL Low 6.0-8.0 [facility] Comment on above: Performed By: #### C BCA, CMP, 49305-0, 83253-9, 2777-1, 89791- 5 #### [facility] ([id number]) [address], [address] [place] [address] Sodium [Moles/Vol] 139 mmol/L Normal 134-146 [facility] Comment on above: Performed By: #### C BCA, CMP, 94805-1, 57226-2, 2777-1, 19659- 5 #### [facility] ([id number]) [address], [address] [place] [address] Urea nitrogen [Mass/Vol] 7 mg/dL Normal 5-23 [facility] Comment on above: Performed By: #### C BCA, CMP, 99398-3, 84280-1, 2777-1, 91352- 5 #### [facility] ([id number]) [address], [address] [place] [address] Glucose Glucometer (BldC) [M ass/Vol]on 06-26-2024 Glucose [Mass/Vol] 112 mg/dL High 65-99 [facility] Glucose [Mass/Vol] 137 mg/dL High 65-99 [facility] Glucose [Mass/Vol] 113 mg/dL High 65-99 [facility] Glucose [Mass/Vol] 109 mg/dL High 65-99 [facility] Glucose [Mass/Vol] 101 mg/dL High 65-99 [facility] COMPREHENSIVE METABOLIC PANE Ab 06-25-2024 Albumin [Mass/Vol] 3.4 g/dL Normal 3.2-5.3 [facility] Comment on above: Performed By: #### C BCA, CMP, 95731-9, 66903-6, 2777-1, 05349- 5 #### [facility] ([id number]) [address], [address] [place] [address] ALP [Catalytic activity/Vol] 70 U/L Normal 39-130 [facility] Comment on above: Performed By: #### C BCA, CMP, 45388-0, 51858-5, 2777-1, 47645- 5 #### [facility] ([id number]) [address], [address] [place] [address] ALT [Catalytic activity/Vol] 9 U/L Normal 0-31 [facility] Comment on above: Performed By: #### C BCA, CMP, 34243-7, 29034-0, 2777-1, 80089- 5 #### [facility] ([id number]) [address], [address] [place] [address] Anion gap [Moles/Vol] 12 mmol/L Normal 5-15 [facility] Comment on above: Performed By: #### C BCA, CMP, 51952-1, 77645-7, 2777-1, 08843- 5 #### [facility] ([id number]) [address], [address] [place] [address] AST [Catalytic activity/Vol] 11 U/L Normal 0-41 [facility] Comment on above: Performed By: #### C BCA, CMP, 63863-7, 90190-6, 2777-1, 67325- 5 #### [facility] ([id number]) [address], [address] [place] [address] Bilirubin [Mass/Vol] 0.4 mg/dL Normal 0.3-1.2 [facility] Comment on above: Performed By: #### C BCA, CMP, 35035-4, 89045-2, 2777-1, 87878- 5 #### [facility] ([id number]) [address], [address] [place] [address] Calcium [Mass/Vol] 9.6 mg/dL Normal 8.5-10.5 [facility] Comment on above: Performed By: #### C BCA, CMP, 82547-8, 40522-9, 2777-1, 97055- 5 #### [facility] ([id number]) [address], [address] [place] [address] Chloride [Moles/Vol] 103 mmol/L Normal 98-109 [facility] Comment on above: Performed By: #### C BCA, CMP, 67583-1, 00081-0, 2777-1, 69576- 5 #### [facility] ([id number]) [address], [address] [place] [address] CO2 [Moles/Vol] 22 mmol/L Normal 22-32 [facility] Comment on above: Performed By: #### C BCA, CMP, 76770-3, 12328-8, 2777-1, 64163- 5 #### [facility] ([id number]) [address], [address] [place] [address] Creatinine [Mass/Vol] 0.28 mg/dL Low 0.40-1.00 [facility] Comment on above: Result Comment: METH OD TRACEABLE TO IDMS STANDARD Performed By: #### C BCA, CMP, 45674-1, 60569-0, 2777-1, 66491-5 #### [facility] ([id number]) [address], [address] [place] [address] eGFR (CKD-EPI) NON-RACE DEPENDENT >90 Normal >59 [facility] Comment on above: Result Comment: Reported eGFR is based on the CKD-EPI 2020 equation that does not use a race coefficient. Performed By: #### C BCA, CMP, 23199-6, 14782-6, 2777-1, 37586-4 #### [facility] ([id number]) [address], [address] [place] [address] Glucose [Mass/Vol] 93 mg/dL Normal 65-99 [facility] Comment on above: Performed By: #### C BCA, CMP, 91883-2, 05689-5, 2777-1, 34920- 5 #### [facility] ([id number]) [address], [address] [place] [address] Potassium [Moles/Vol] 3.5 mmol/L Normal 3.5-5.0 [facility] Comment on above: Performed By: #### C BCA, CMP, 82133-0, 46022-5, 2777-1, 27952- 5 #### [facility] ([id number]) [address], [address] [place] [address] Protein [Mass/Vol] 5.8 g/dL Low 6.0-8.0 [facility] Comment on above: Performed By: #### C BCA, CMP, 37957-6, 93596-4, 2777-1, 65650- 5 #### [facility] ([id number]) [address], [address] [place] [address] Sodium [Moles/Vol] 137 mmol/L Normal 134-146 [facility] Comment on above: Performed By: #### C BCA, CMP, 08871-5, 97490-1, 2777-1, 78067- 5 #### [facility] ([id number]) [address], [address] [place] [address] Urea nitrogen [Mass/Vol] 7 mg/dL Normal 5-23 [facility] Comment on above: Performed By: #### C BCA, CMP, 18930-6, 73649-8, 2777-1, 39337- 5 #### [facility] ([id number]) [address], [address] [place] [address] Glucose Glucometer (BldC) [M ass/Vol]on 06-25-2024 Glucose [Mass/Vol] 113 mg/dL High 65-99 [facility] Glucose [Mass/Vol] 122 mg/dL High 65-99 [facility] Glucose [Mass/Vol] 145 mg/dL High 65-99 [facility] COMPREHENSIVE METABOLIC PANE Ab 06-24-2024 Albumin [Mass/Vol] 3.5 g/dL Normal 3.2-5.3 [facility] Comment on above: Performed By: #### C BCA, CMP, 27168-4, 54116-7, 2777-1, 22086- 5 #### [facility] ([id number]) [address], [address] [place] [address] ALP [Catalytic activity/Vol] 70 U/L Normal 39-130 [facility] Comment on above: Performed By: #### C BCA, CMP, 34196-5, 46357-7, 2777-1, 97710- 5 #### [facility] ([id number]) [address], [address] [place] [address] ALT [Catalytic activity/Vol] 8 U/L Normal 0-31 [facility] Comment on above: Performed By: #### C BCA, CMP, 96580-3, 75260-6, 2777-1, 40112- 5 #### [facility] ([id number]) [address], [address] [place] [address] Anion gap [Moles/Vol] 12 mmol/L Normal 5-15 [facility] Comment on above: Performed By: #### C BCA, CMP, 71145-6, 29168-6, 2777-1, 65655- 5 #### [facility] ([id number]) [address], [address] [place] [address] AST [Catalytic activity/Vol] 12 U/L Normal 0-41 [facility] Comment on above: Performed By: #### C BCA, CMP, 69301-4, 86857-5, 2777-1, 32670- 5 #### [facility] ([id number]) [address], [address] [place] [address] Bilirubin [Mass/Vol] 0.4 mg/dL Normal 0.3-1.2 [facility] Comment on above: Performed By: #### C BCA, CMP, 44916-8, 31803-1, 2777-1, 44419- 5 #### [facility] ([id number]) [address], [address] [place] [address] Calcium [Mass/Vol] 9.2 mg/dL Normal 8.5-10.5 [facility] Comment on above: Performed By: #### C BCA, CMP, 75605-6, 97287-8, 2777-1, 07406- 5 #### [facility] ([id number]) [address], [address] [place] [address] Chloride [Moles/Vol] 103 mmol/L Normal 98-109 [facility] Comment on above: Performed By: #### C BCA, CMP, 73540-6, 52955-9, 2777-1, 68593- 5 #### [facility] ([id number]) [address], [address] [place] [address] CO2 [Moles/Vol] 22 mmol/L Normal 22-32 [facility] Comment on above: Performed By: #### C BCA, CMP, 47850-8, 29221-3, 2777-1, 66822- 5 #### [facility] ([id number]) [address], [address] [place] [address] Creatinine [Mass/Vol] 0.31 mg/dL Low 0.40-1.00 [facility] Comment on above: Result Comment: METH OD TRACEABLE TO IDMS STANDARD Performed By: #### C BCA, CMP, 79649-0, 31649-2, 2777-1, 81394-9 #### [facility] ([id number]) [address], [address] [place] [address] eGFR (CKD-EPI) NON-RACE DEPENDENT >90 Normal >59 [facility] Comment on above: Result Comment: Reported eGFR is based on the CKD-EPI 2020 equation that does not use a race coefficient. Performed By: #### C BCA, CMP, 51802-7, 48622-6, 2777-1, 04704-8 #### [facility] ([id number]) [address], [address] [place] [address] Glucose [Mass/Vol] 92 mg/dL Normal 65-99 [facility] Comment on above: Performed By: #### C BCA, CMP, 80584-6, 88408-1, 2777-1, 60663- 5 #### [facility] ([id number]) [address], [address] [place] [address] Potassium [Moles/Vol] 3.8 mmol/L Normal 3.5-5.0 [facility] Comment on above: Performed By: #### C BCA, CMP, 77223-2, 45734-8, 2777-1, 63767- 5 #### [facility] ([id number]) [address], [address] [place] [address] Protein [Mass/Vol] 5.9 g/dL Low 6.0-8.0 [facility] Comment on above: Performed By: #### C BCA, CMP, 86418-1, 39360-4, 2777-1, 99531- 5 #### [facility] ([id number]) [address], [address] [place] [address] Sodium [Moles/Vol] 137 mmol/L Normal 134-146 [facility] Comment on above: Performed By: #### C BCA, CMP, 90092-7, 35998-9, 2777-1, 42678- 5 #### [facility] ([id number]) [address], [address] [place] [address] Urea nitrogen [Mass/Vol] 7 mg/dL Normal 5-23 [facility] Comment on above: Performed By: #### C BCA, CMP, 16252-4, 35626-9, 2777-1, 83395- 5 #### [facility] ([id number]) [address], [address] [place] [address] DIGOXINon 06-24-2024 Digoxin [Mass/Vol] 1.3 ng/mL Normal 0.8-2.0 [facility] Comment on above: Performed By: #### C BCA, CMP, 56239-9, 03136-1, 2777-1, 47184- 5 #### [facility] ([id number]) [address], [address] [place] [address] Glucose Glucometer (BldC) [M ass/Vol]on 06-24-2024 Glucose [Mass/Vol] 106 mg/dL High 65-99 [facility] Glucose [Mass/Vol] 113 mg/dL High 65-99 [facility] Glucose [Mass/Vol] 116 mg/dL High 65-99 [facility] Glucose [Mass/Vol] 93 mg/dL Normal 65-99 [facility] MAGNESIUMon 06-24-2024 Magnesium [Mass/Vol] 1.6 mg/dL Low 1.8-2.6 [facility] Comment on above: Performed By: #### C BCA, CMP, 26979-7, 27921-8, 2777-1, 80749- 5 #### [facility] ([id number]) [address], [address] [place] [address] POTASSIUMon 06-24-2024 Potassium [Moles/Vol] 3.7 mmol/L Normal 3.5-5.0 [facility] Comment on above: Performed By: #### C BCA, CMP, 02442-0, 67772-4, 2777-1, 63279- 5 #### [facility] ([id number]) [address], [address] [place] [address] COMPREHENSIVE METABOLIC PANE Ab 06-23-2024 Albumin [Mass/Vol] 3.6 g/dL Normal 3.2-5.3 [facility] Comment on above: Performed By: #### C BCA, CMP, 02022-5, 77652-1, 2777-1, 43475- 5 #### [facility] ([id number]) [address], [address] [place] [address] ALP [Catalytic activity/Vol] 74 U/L Normal 39-130 [facility] Comment on above: Performed By: #### C BCA, CMP, 56333-7, 82563-6, 2777-1, 44131- 5 #### [facility] ([id number]) [address], [address] [place] [address] ALT [Catalytic activity/Vol] 8 U/L Normal 0-31 [facility] Comment on above: Performed By: #### C BCA, CMP, 83085-3, 62044-5, 2777-1, 51278- 5 #### [facility] ([id number]) [address], [address] [place] [address] Anion gap [Moles/Vol] 13 mmol/L Normal 5-15 [facility] Comment on above: Performed By: #### C BCA, CMP, 48087-2, 51084-1, 2777-1, 30790- 5 #### [facility] ([id number]) [address], [address] [place] [address] AST [Catalytic activity/Vol] 10 U/L Normal 0-41 [facility] Comment on above: Performed By: #### C BCA, CMP, 43048-8, 77203-2, 2777-1, 78015- 5 #### [facility] ([id number]) [address], [address] [place] [address] Bilirubin [Mass/Vol] 0.3 mg/dL Normal 0.3-1.2 [facility] Comment on above: Performed By: #### C BCA, CMP, 71954-6, 58273-6, 2777-1, 55791- 5 #### [facility] ([id number]) [address], [address] [place] [address] Calcium [Mass/Vol] 9.6 mg/dL Normal 8.5-10.5 [facility] Comment on above: Performed By: #### C BCA, CMP, 14328-4, 35481-2, 2777-1, 15673- 5 #### [facility] ([id number]) [address], [address] [place] [address] Chloride [Moles/Vol] 103 mmol/L Normal 98-109 [facility] Comment on above: Performed By: #### C BCA, CMP, 67179-4, 53370-7, 2777-1, 42384- 5 #### [facility] ([id number]) [address], [address] [place] [address] CO2 [Moles/Vol] 23 mmol/L Normal 22-32 [facility] Comment on above: Performed By: #### C BCA, CMP, 77627-5, 32093-8, 2777-1, 20744- 5 #### [facility] ([id number]) [address], [address] [address] Creatinine [Mass/Vol] 0.28 mg/dL Low 0.40-1.00 [facility] Comment on above: Result Comment: METH OD TRACEABLE TO IDMS STANDARD Performed By: #### C BCA, CMP, 68229-4, 15546-5, 2777-1, 13383-5 #### [facility] ([id number]) [address], [address] [place] [address] eGFR (CKD-EPI) NON-RACE DEPENDENT >90 Normal >59 [facility] Comment on above: Result Comment: Reported eGFR is based on the CKD-EPI 2020 equation that does not use a race coefficient. Performed By: #### C BCA, CMP, 37311-5, 35672-9, 2777-1, 11073-7 #### [facility] ([id number]) [address], [address] [place] [address] Glucose [Mass/Vol] 98 mg/dL Normal 65-99 [facility] Comment on above: Performed By: #### C BCA, CMP, 66591-9, 33925-0, 2777-1, 81761- 5 #### [facility] ([id number]) [address], [address] [place] [address] Potassium [Moles/Vol] 3.6 mmol/L Normal 3.5-5.0 [facility] Comment on above: Performed By: #### C BCA, CMP, 40045-1, 87136-5, 2777-1, 05546- 5 #### [facility] ([id number]) [address], [facility] [address] [place] [address] Protein [Mass/Vol] 6.1 g/dL Normal 6.0-8.0 [facility] Comment on above: Performed By: #### C BCA, CMP, 81900-1, 27014-5, 2777-1, 52861- 5 #### [facility] ([id number]) [address], [address] [place] [address] Sodium [Moles/Vol] 139 mmol/L Normal 134-146 [facility] Comment on above: Performed By: #### C BCA, CMP, 08202-8, 47962-9, 2777-1, 41626- 5 #### [facility] ([id number]) [address], [address] [place] [address] Urea nitrogen [Mass/Vol] 5 mg/dL Normal 5-23 [facility] Comment on above: Performed By: #### C BCA, CMP, 64277-2, 21386-6, 2777-1, 97222- 5 #### [facility] ([id number]) [address], [address] [place] [address] DIGOXINon 06-23-2024 Digoxin [Mass/Vol] 1.5 ng/mL Normal 0.8-2.0 [facility] Comment on above: Performed By: #### C SHERITA, ROSA, 25165-8, 57983-3, 2777-1, 53016- 5 #### [facility] ([id number]) [address], [address] [place] [address] Glucose Glucometer (BldC) [M ass/Vol]on 06-23-2024 Glucose [Mass/Vol] 129 mg/dL High 65-99 [facility] Glucose [Mass/Vol] 127 mg/dL High 65-99 [facility] Glucose [Mass/Vol] 120 mg/dL High 65-99 [facility] Glucose [Mass/Vol] 98 mg/dL Normal 65-99 [facility] MAGNESIUMon 06-23-2024 Magnesium [Mass/Vol] 1.7 mg/dL Low 1.8-2.6 [facility] Comment on above: Performed By: #### C ROSA MAGALLON, 50024-2, 75834-9, 2777-1, 80002- 5 #### [facility] ([id number]) [address], [address] [place] [address] Magnesium [Mass/Vol] 1.8 mg/dL Normal 1.8-2.6 [facility] Comment on above: Performed By: #### Heather MAGALLON CMP, 94798-3, 75561-7, 2777-1, 76295- 5 #### [facility] ([id number]) [address], [address] [place] [address] Magnesium [Mass/Vol] 1.7 mg/dL Low 1.8-2.6 [facility] Comment on above: Performed By: #### C SHERITA, ROSA, 68904-6, 92880-6, 2777-1, 60551- 5 #### [facility] ([id number]) [address], [address] [place] [address] POTASSIUMon 06-23-2024 Potassium [Moles/Vol] 3.8 mmol/L Normal 3.5-5.0 [facility] Comment on above: Performed By: #### C BCA, CMP, 99189-1, 73617-1, 2777-1, 39630- 5 #### [facility] ([id number]) [address], [address] [place] [address] Potassium [Moles/Vol] 3.7 mmol/L Normal 3.5-5.0 [facility] Comment on above: Performed By: #### C BCA, CMP, 96118-8, 40707-5, 2777-1, 38108- 5 #### [facility] ([id number]) [address], [address] [place] [address] COMPREHENSIVE METABOLIC PANE Ab 06-22-2024 Albumin [Mass/Vol] 3.5 g/dL Normal 3.2-5.3 [facility] Comment on above: Performed By: #### C BCA, CMP, 70202-4, 00727-7, 2777-1, 54757- 5 #### [facility] ([id number]) [address], [address] [place] [address] ALP [Catalytic activity/Vol] 64 U/L Normal 39-130 [facility] Comment on above: Performed By: #### C BCA, CMP, 89678-7, 61834-2, 2777-1, 45814- 5 #### [facility] ([id number]) [address], [address] [place] [address] ALT [Catalytic activity/Vol] 8 U/L Normal 0-31 [facility] Comment on above: Performed By: #### C BCA, CMP, 78256-7, 54255-3, 2777-1, 18260- 5 #### [facility] ([id number]) [address], [address] [place] [address] Anion gap [Moles/Vol] 11 mmol/L Normal 5-15 [facility] Comment on above: Performed By: #### C BCA, CMP, 03059-1, 20979-7, 2777-1, 63718- 5 #### [facility] ([id number]) [address], [address] [place] [address] AST [Catalytic activity/Vol] 12 U/L Normal 0-41 [facility] Comment on above: Performed By: #### C BCA, CMP, 35265-3, 81554-2, 2777-1, 56807- 5 #### [facility] ([id number]) [address], [address] [place] [address] Bilirubin [Mass/Vol] 0.4 mg/dL Normal 0.3-1.2 [facility] Comment on above: Performed By: #### C BCA, CMP, 92347-5, 59188-6, 2777-1, 55407- 5 #### [facility] ([id number]) [address], [address] [place] [address] Calcium [Mass/Vol] 8.8 mg/dL Normal 8.5-10.5 [facility] Comment on above: Performed By: #### C BCA, CMP, 39427-6, 31168-2, 2777-1, 81333- 5 #### [facility] ([id number]) [address], [address] [place] [address] Chloride [Moles/Vol] 102 mmol/L Normal 98-109 [facility] Comment on above: Performed By: #### C BCA, CMP, 97771-8, 06829-8, 2777-1, 02223- 5 #### [facility] ([id number]) [address], [address] [place] [address] CO2 [Moles/Vol] 22 mmol/L Normal 22-32 [facility] Comment on above: Performed By: #### C BCA, CMP, 56940-7, 18934-5, 2777-1, 43378- 5 #### [facility] ([id number]) [address], [address] [place] [address] Creatinine [Mass/Vol] 0.30 mg/dL Low 0.40-1.00 [facility] Comment on above: Result Comment: METH OD TRACEABLE TO IDMS STANDARD Performed By: #### C BCA, CMP, 14313-3, 28376-8, 2777-1, 23668-9 #### [facility] ([id number]) [address], [address] [place] [address] eGFR (CKD-EPI) NON-RACE DEPENDENT >90 Normal >59 [facility] Comment on above: Result Comment: Reported eGFR is based on the CKD-EPI 2020 equation that does not use a race coefficient. Performed By: #### C BCA, CMP, 74048-9, 02888-6, 2777-1, 64158-4 #### [facility] ([id number]) [address], [address] [place] [address] Glucose [Mass/Vol] 130 mg/dL High 65-99 [facility] Comment on above: Performed By: #### C BCA, CMP, 92749-7, 91826-2, 2777-1, 26936- 5 #### [facility] ([id number]) [address] [address] Potassium [Moles/Vol] 3.9 mmol/L Normal 3.5-5.0 [facility] Comment on above: Performed By: #### C BCA, CMP, 37536-1, 47096-0, 2777-1, 67425- 5 #### [facility] ([id number]) [address] [place] [address] Protein [Mass/Vol] 6.0 g/dL Normal 6.0-8.0 [facility] Comment on above: Performed By: #### C BCA, CMP, 36541-9, 52314-8, 2777-1, 84134- 5 #### [facility] ([id number]) [address], [address] [place] [address] Sodium [Moles/Vol] 135 mmol/L Normal 134-146 [facility] Comment on above: Performed By: #### C BCA, CMP, 97844-7, 28510-9, 2777-1, 87964- 5 #### [facility] ([id number]) [address], [address] [place] [address] Urea nitrogen [Mass/Vol] 7 mg/dL Normal 5-23 [facility] Comment on above: Performed By: #### C BCA, CMP, 16765-5, 73128-8, 2777-1, 37525- 5 #### [facility] ([id number]) [address], [address] [place] [address] DIGOXINon 06-22-2024 Digoxin [Mass/Vol] 1.6 ng/mL Normal 0.8-2.0 [facility] Comment on above: Performed By: #### C BCA, CMP, 30112-0, 45678-6, 2777-1, 43722- 5 #### [facility] [facility] ([id number]) [address], [address] [place] [address] Glucose Glucometer (BldC) [M ass/Vol]on 06-22-2024 Glucose [Mass/Vol] 133 mg/dL High 65-99 [facility] Glucose [Mass/Vol] 133 mg/dL High 65-99 [facility] Glucose [Mass/Vol] 127 mg/dL High 65-99 [facility] Glucose [Mass/Vol] 103 mg/dL High 65-99 [facility] Laboratory comment Víctor (Repo rt)on 06-22-2024 UNLISTED LAB TEST Sent to reference lab Normal [facility] MAGNESIUMon 06-22-2024 Magnesium [Mass/Vol] 1.6 mg/dL Low 1.8-2.6 [facility] Comment on above: Performed By: #### C BCA, CMP, 95765-5, 19288-0, 2777-1, 94755- 5 #### [facility] ([id number]) [address], [address] [place] [address] Magnesium [Mass/Vol] 1.9 mg/dL Normal 1.8-2.6 [facility] Comment on above: Performed By: #### C BCA, CMP, 57159-9, 45624-7, 2777-1, 74814- 5 #### [facility] ([id number]) [address], [address] [place] [address] Magnesium [Mass/Vol] 1.7 mg/dL Low 1.8-2.6 [facility] Comment on above: Performed By: #### C SHERITA, CMP, 58024-5, 57519-0, 2777-1, 16956- 5 #### [facility] ([id number]) [address], [address] [place] [address] [facility] ORDERon 06-22-2 025 TEST NAME FLEC FLECINIDE ON NO GEL SERUM Normal [facility] TEST RESULT SEE COMMENTS 06/23/2024 12:[address] [facility] Comment on above: Result Comment: NOTE Test Result Flag Unit RefValue -- Flecainide, S 0.5 mcg/mL REFERENCE VALUE 0.2 - 1.0 (Therapeutic concentration, trough value), >1.0 (Toxic concentration, trough value) ADDITIONAL INFORMATION This test was developed and its performance characteristics determined by [facility] in a manner consistent with CLIA requirements. This test has not been cleared or approved by the U.S. Food and Drug Administration. Test Performed by: [facility] [address] [place] [address] Student Support Advisor: Mino Cain Ph.D.; CLIA# [id number] Magnesium Ionized ISE (Bld) [Moles/Vol]on 06-22-2024 Magnesium [Moles/Vol] 0.45 mmol/L Normal 0.45-0.74 [facility] Comment on above: Result Comment: NEW REFERENCE RANGE Performed By: #### C BCA, CMP, , 37292-0, 2777-1, 44178-4 #### [facility] ([id number]) [address], [address] [place] [address] POTASSIUMon 06-22-2024 Potassium [Moles/Vol] 4.1 mmol/L Normal 3.5-5.0 [facility] Comment on above: Performed By: #### C BCA, CMP, , 97826-0, 2777-1, 19326- 5 #### [facility] ([id number]) [address], [address] [place] [address] COMPREHENSIVE METABOLIC PANE Ab 06-21-2024 Albumin [Mass/Vol] 3.7 g/dL Normal 3.2-5.3 [facility] Comment on above: Performed By: #### [place], [address]-1 #### [facility] ([id number]) [address], [address] [place] [address] ALP [Catalytic activity/Vol] 67 U/L Normal 39-130 [facility] Comment on above: Performed By: #### [place], [address]-0 #### [facility] ([id number]) [address], [address] [place] [address] ALT [Catalytic activity/Vol] 8 U/L Normal 0-31 [facility] Comment on above: Performed By: #### Jahaira CHAN, #### [facility] ([id number]) [address], [address] [place] [address] Anion gap [Moles/Vol] 11 mmol/L Normal 5-15 [facility] Comment on above: Performed By: #### Jahaira CHAN, #### [facility] ([id number]) [address], [address] [place] [address] AST [Catalytic activity/Vol] 13 U/L Normal 0-41 [facility] Comment on above: Performed By: #### Jahaira CHAN, #### [facility] ([id number]) [address], [address] [place] [address] Bilirubin [Mass/Vol] 0.4 mg/dL Normal 0.3-1.2 [facility] Comment on above: Performed By: #### Jahaira CHAN, #### [facility] ([id number]) [address], [address] [place] [address] Calcium [Mass/Vol] 10.6 mg/dL High 8.5-10.5 [facility] Comment on above: Performed By: #### Jahaira CHAN, #### [facility] ([id number]) [address], [address] [place] [address] Chloride [Moles/Vol] 101 mmol/L Normal 98-109 [facility] Comment on above: Performed By: #### Jahaira CHAN, #### [facility] ([id number]) [address], [address] [place] [address] CO2 [Moles/Vol] 23 mmol/L Normal 22-32 [facility] Comment on above: Performed By: #### Jahaira CHAN, #### [facility] ([id number]) [address], [address] [place] [address] Creatinine [Mass/Vol] 0.35 mg/dL Low 0.40-1.00 [facility] Comment on above: Result Comment: METH OD TRACEABLE TO IDMS STANDARD Performed By: #### B ROCIO, #### [facility] ([id number]) [address] [place] [address] eGFR (CKD-EPI) NON-RACE DEPENDENT >90 Normal >59 [facility] Comment on above: Result Comment: Reported eGFR is based on the CKD-EPI 2020 equation that does not use a race coefficient. Performed By: #### Jahaira CHAN, #### [facility] ([id number]) [address] [place] [address] Glucose [Mass/Vol] 126 mg/dL High 65-99 [facility] Comment on above: Performed By: #### Jahaira CHAN, #### [facility] ([id number]) [address] [place] [address] Potassium [Moles/Vol] 3.6 mmol/L Normal 3.5-5.0 [facility] Comment on above: Performed By: #### Jahaira CHAN, #### [facility] ([id number]) [address] [address] [place] [address] Protein [Mass/Vol] 6.2 g/dL Normal 6.0-8.0 [facility] Comment on above: Performed By: #### Jahaira CHAN, #### [facility] ([id number]) [address] [facility] [address] [place] [address] Sodium [Moles/Vol] 135 mmol/L Normal 134-146 [facility] Comment on above: Performed By: #### Jahaira CHAN, #### [facility] ([id number]) [address] [place] [address] Urea nitrogen [Mass/Vol] 7 mg/dL Normal 5-23 [facility] Comment on above: Performed By: #### Jahaira CHAN, #### [facility] ([id number]) [address], [address] [place] [address] DIGOXINon 06-21-2024 Digoxin [Mass/Vol] 1.9 ng/mL Normal 0.8-2.0 [facility] Comment on above: Performed By: #### C ROSA MAGALLON, , 12147-7, 2777-1, 37007- 5 #### [facility] ([id number]) [address], [address] [place] [address] Glucose Glucometer (BldC) [M ass/Vol]on 06-21-2024 Glucose [Mass/Vol] 131 mg/dL High 65-99 [facility] Glucose [Mass/Vol] 131 mg/dL High 65-99 [facility] Glucose [Mass/Vol] 98 mg/dL Normal 65-99 [facility] MAGNESIUMon 06-21-2024 Magnesium [Mass/Vol] 1.8 mg/dL Normal 1.8-2.6 [facility] Comment on above: Performed By: #### Heather MAGALLON CMP, , 27447-7, 2777-1, 83896- 5 #### [facility] ([id number]) [address] [place] [address] Magnesium [Mass/Vol] 1.5 mg/dL Low 1.8-2.6 [facility] Comment on above: Performed By: #### Jahaira CHAN, #### [facility] ([id number]) [address] [place] [address] POTASSIUMon 06-21-2024 Potassium [Moles/Vol] 3.9 mmol/L Normal 3.5-5.0 [facility] Comment on above: Performed By: #### C ROSA MAGALLON, , 26584-7, 2777-1, 04483- 5 #### [facility] ([id number]) [address], [address] [place] [address] COMPREHENSIVE METABOLIC PANE Ab 06-20-2024 Albumin [Mass/Vol] 3.7 g/dL Normal 3.2-5.3 [facility] Comment on above: Performed By: #### 1 558-6 #### [facility] ([id number]) [address], [address] [place] [address] ALP [Catalytic activity/Vol] 65 U/L Normal 39-130 [facility] Comment on above: Performed By: #### 1 558-6 #### [facility] ([id number]) [address], [address] [place] [address] ALT [Catalytic activity/Vol] 10 U/L Normal 0-31 [facility] Comment on above: Performed By: #### 1 558-6 #### [facility] ([id number]) [address] [place] [address] Anion gap [Moles/Vol] 9 mmol/L Normal 5-15 [facility] Comment on above: Performed By: #### 1 558-6 #### [facility] ([id number]) [address] [place] [address] AST [Catalytic activity/Vol] 13 U/L Normal 0-41 [facility] Comment on above: Performed By: #### 1 558-6 #### [facility] ([id number]) [address], [address] [place] [address] Bilirubin [Mass/Vol] 0.3 mg/dL Normal 0.3-1.2 [facility] Comment on above: Performed By: #### 1 558-6 #### [facility] ([id number]) [address], [address] [place] [address] Calcium [Mass/Vol] 9.4 mg/dL Normal 8.5-10.5 [facility] Comment on above: Performed By: #### 1 558-6 #### [facility] ([id number]) [address], [address] [place] [address] Chloride [Moles/Vol] 104 mmol/L Normal 98-109 [facility] Comment on above: Performed By: #### 1 558-6 #### [facility] ([id number]) [address], [address] [place] [address] CO2 [Moles/Vol] 25 mmol/L Normal 22-32 [facility] Comment on above: Performed By: #### 1 558-6 #### [facility] ([id number]) [address], [address] [place] [address] Creatinine [Mass/Vol] 0.36 mg/dL Low 0.40-1.00 [facility] Comment on above: Result Comment: METH OD TRACEABLE TO IDMS STANDARD Performed By: #### 1 558-6 #### [facility] ([id number]) [address], [address] [place] [address] eGFR (CKD-EPI) NON-RACE DEPENDENT >90 Normal >59 [facility] Comment on above: Result Comment: Reported eGFR is based on the CKD-EPI 2020 equation that does not use a race coefficient. Performed By: #### 1 558-6 #### [facility] ([id number]) [address], [address] [place] [address] Glucose [Mass/Vol] 93 mg/dL Normal 65-99 [facility] Comment on above: Performed By: #### 1 558-6 #### [facility] ([id number]) [address], [address] [place] [address] Potassium [Moles/Vol] 3.9 mmol/L Normal 3.5-5.0 [facility] Comment on above: Performed By: #### 1 558-6 #### [facility] ([id number]) [address], [address] [place] [address] Protein [Mass/Vol] 6.1 g/dL Normal 6.0-8.0 [facility] Comment on above: Performed By: #### 1 558-6 #### [facility] ([id number]) [address], [address] [place] [address] Sodium [Moles/Vol] 138 mmol/L Normal 134-146 [facility] Comment on above: Performed By: #### 1 558-6 #### [facility] ([id number]) [address], [address] [place] [address] Urea nitrogen [Mass/Vol] 6 mg/dL Normal 5-23 [facility] Comment on above: Performed By: #### 1 558-6 #### [facility] ([id number]) [address], [address] [place] [address] DIGOXINon 06-20-2024 Digoxin [Mass/Vol] 1.9 ng/mL Normal 0.8-2.0 [facility] Comment on above: Performed By: #### Jahaira CHAN, 38626-5 #### [facility] ([id number]) [address], [address] [place] [address] Glucose Glucometer (BldC) [M ass/Vol]on 06-20-2024 Glucose [Mass/Vol] 130 mg/dL High 65-99 [facility] Glucose [Mass/Vol] 95 mg/dL Normal 65-99 [facility] Glucose [Mass/Vol] 123 mg/dL High 65-99 [facility] MAGNESIUMon 06-20-2024 Magnesium [Mass/Vol] 1.9 mg/dL Normal 1.8-2.6 [facility] Comment on above: Performed By: #### B ROCIO, #### [facility] ([id number]) [address], [address] [place] [address] Magnesium [Mass/Vol] 1.8 mg/dL Normal 1.8-2.6 [facility] Comment on above: Performed By: #### 1 558-6 #### [facility] ([id number]) [address], [address] [place] [address] Magnesium [Mass/Vol] 1.8 mg/dL Normal 1.8-2.6 [facility] Comment on above: Performed By: #### 1 558-6 #### [facility] ([id number]) [address] [place] [address] POTASSIUMon 06-20-2024 Potassium [Moles/Vol] 3.7 mmol/L Normal 3.5-5.0 [facility] Comment on above: Performed By: #### B ROCIO, #### [facility] ([id number]) [address] [place] [address] Potassium [Moles/Vol] 3.9 mmol/L Normal 3.5-5.0 [facility] Comment on above: Performed By: #### 1 558-6 #### [facility] ([id number]) [address] [place] [address] COMPREHENSIVE METABOLIC PANE Ab 06-19-2024 Albumin [Mass/Vol] 3.5 g/dL Normal 3.2-5.3 [facility] Comment on above: Performed By: #### C ROCIO, ####[facility] ([id number])[address], [address], [place] [address] ALP [Catalytic activity/Vol] 58 U/L Normal 39-130 [facility] Comment on above: Performed By: #### C ROCIO, ####[facility] ([id number])[address], [place] [address] ALT [Catalytic activity/Vol] 9 U/L Normal 0-31 [facility] Comment on above: Performed By: #### Heather CHAN, ####[facility] ([id number])[address], [place] [address] Anion gap [Moles/Vol] 10 mmol/L Normal 5-15 [facility] Comment on above: Performed By: #### Heather CHAN, ####[facility] ([id number])[address], [place] [address] AST [Catalytic activity/Vol] 11 U/L Normal 0-41 [facility] Comment on above: Performed By: #### Heather CHAN, ####[facility] ([id number])[address], [place] [address] Bilirubin [Mass/Vol] 0.2 mg/dL Low 0.3-1.2 [facility] Comment on above: Performed By: #### Heather CHAN, ####[facility] ([id number])[address], [place] [address] Calcium [Mass/Vol] 8.7 mg/dL Normal 8.5-10.5 [facility] Comment on above: Performed By: #### Heather CHAN, ####[facility] ([id number])[address], [place] [address] Chloride [Moles/Vol] 103 mmol/L Normal 98-109 [facility] Comment on above: Performed By: #### Heather CHAN, ####[facility] ([id number])[address], [place] [address] CO2 [Moles/Vol] 24 mmol/L Normal 22-32 [facility] Comment on above: Performed By: #### C ROCIO, ####[facility] ([id number])[address] [address] Creatinine [Mass/Vol] 0.37 mg/dL Low 0.40-1.00 [facility] Comment on above: Result Comment: METH OD TRACEABLE TO IDMS STANDARD Performed By: #### C ROCIO, ####[facility] ([id number])[address] [facility] [address] [address] eGFR (CKD-EPI) NON-RACE DEPENDENT >90 Normal >59 [facility] Comment on above: Result Comment: Reported eGFR is based on the CKD-EPI 2020 equation that does not use a race coefficient. Performed By: #### C ROCIO, ####[facility] ([id number])[address] [address] [address] Glucose [Mass/Vol] 100 mg/dL High 65-99 [facility] Comment on above: Performed By: #### Heather CHAN, ####[facility] ([id number])[address] [facility] [address], [place] [address] Potassium [Moles/Vol] 3.7 mmol/L Normal 3.5-5.0 [facility] Comment on above: Performed By: #### Heather CHAN, ####[facility] ([id number])[address] [address] [place] [address] Protein [Mass/Vol] 5.9 g/dL Low 6.0-8.0 [facility] Comment on above: Performed By: #### Heather CHAN, ####[facility] ([id number])[address] [address] [place] [address] Sodium [Moles/Vol] 137 mmol/L Normal 134-146 [facility] Comment on above: Performed By: #### C ROCIO, 19992-4 ####[facility] ([id number])[address] [address] Urea nitrogen [Mass/Vol] 7 mg/dL Normal 5-23 [facility] Comment on above: Performed By: #### C ROCIO, 84605-6 ####[facility] ([id number])[address] [place] [address] DIGOXINon 06-19-2024 Digoxin [Mass/Vol] 1.6 ng/mL Normal 0.8-2.0 [facility] Comment on above: Performed By: #### 1 0535-3 ####[facility] ([id number])[address] [place] [address] Glucose Glucometer (BldC) [M ass/Vol]on 06-19-2024 Glucose [Mass/Vol] 117 mg/dL High 65-99 [facility] Glucose [Mass/Vol] 108 mg/dL High 65-99 [facility] Glucose [Mass/Vol] 91 mg/dL Normal 65-99 [facility] Glucose [Mass/Vol] 86 mg/dL Normal 65-99 [facility] MAGNESIUMon 06-19-2024 Magnesium [Mass/Vol] 1.7 mg/dL Low 1.8-2.6 [facility] Comment on above: Performed By: #### 1 558-6 #### [facility] ([id number]) [address] [place] [address] Magnesium [Mass/Vol] 1.9 mg/dL Normal 1.8-2.6 [facility] Comment on above: Performed By: #### 1 9123-9 ####[facility] ([id number])[address] [address] Magnesium [Mass/Vol] 1.8 mg/dL Normal 1.8-2.6 [facility] Comment on above: Performed By: #### C , 26119-2 ####[facility] ([id number])[address], [place] [address] POTASSIUMon 06-19-2024 Potassium [Moles/Vol] 3.5 mmol/L Normal 3.5-5.0 [facility] Comment on above: Performed By: #### 1 558-6 #### [facility] ([id number]) [address], [address] [place] [address] Potassium [Moles/Vol] 3.7 mmol/L Normal 3.5-5.0 [facility] Comment on above: Performed By: #### 2 823-3 ####[facility] ([id number])[address], [place] [address] COMPREHENSIVE METABOLIC PANE Ab 06-18-2024 Albumin [Mass/Vol] 3.6 g/dL Normal 3.2-5.3 [facility] Comment on above: Performed By: #### D GODOY #### [facility] ([id number]) [address], [address] [place] [address] ALP [Catalytic activity/Vol] 63 U/L Normal 39-130 [facility] Comment on above: Performed By: #### D GODOY #### [facility] ([id number]) [address], [address] [place] [address] ALT [Catalytic activity/Vol] 10 U/L Normal 0-31 [facility] Comment on above: Performed By: #### D GODOY #### [facility] ([id number]) [address], [address] [place] [address] Anion gap [Moles/Vol] 11 mmol/L Normal 5-15 [facility] Comment on above: Performed By: #### D GODOY #### [facility] ([id number]) [address], [address] [place] [address] AST [Catalytic activity/Vol] 12 U/L Normal 0-41 [facility] Comment on above: Performed By: #### D GODOY #### [facility] ([id number]) [address], [address] [place] [address] Bilirubin [Mass/Vol] 0.3 mg/dL Normal 0.3-1.2 [facility] Comment on above: Performed By: #### D GODOY #### [facility] ([id number]) [address], [address] [place] [address] Calcium [Mass/Vol] 8.8 mg/dL Normal 8.5-10.5 [facility] Comment on above: Performed By: #### D GODOY #### [facility] ([id number]) [address] [place] [address] Chloride [Moles/Vol] 104 mmol/L Normal 98-109 [facility] Comment on above: Performed By: #### D GODOY #### [facility] ([id number]) [address] [place] [address] CO2 [Moles/Vol] 22 mmol/L Normal 22-32 [facility] Comment on above: Performed By: #### D GODOY #### [facility] ([id number]) [address] [place] [address] Creatinine [Mass/Vol] 0.34 mg/dL Low 0.40-1.00 [facility] Comment on above: Result Comment: METH OD TRACEABLE TO IDMS STANDARD Performed By: #### D GODOY #### [facility] ([id number]) [address] [place] [address] eGFR (CKD-EPI) NON-RACE DEPENDENT >90 Normal >59 [facility] Comment on above: Result Comment: Reported eGFR is based on the CKD-EPI 2020 equation that does not use a race coefficient. Performed By: #### D GODOY #### [facility] ([id number]) [address] [place] [address] Glucose [Mass/Vol] 105 mg/dL High 65-99 [facility] Comment on above: Performed By: #### D GODOY #### [facility] ([id number]) [address] [place] [address] Potassium [Moles/Vol] 3.6 mmol/L Normal 3.5-5.0 [facility] Comment on above: Performed By: #### D GODOY #### [facility] ([id number]) [address] [place] [address] Protein [Mass/Vol] 5.9 g/dL Low 6.0-8.0 [facility] Comment on above: Performed By: #### D GODOY #### [facility] ([id number]) [address] [place] [address] Sodium [Moles/Vol] 137 mmol/L Normal 134-146 [facility] Comment on above: Performed By: #### D GODOY #### [facility] ([id number]) [address] [place] [address] Urea nitrogen [Mass/Vol] 7 mg/dL Normal 5-23 [facility] Comment on above: Performed By: #### D GODOY #### [facility] ([id number]) [address] [place] [address] DIGOXINon 06-18-2024 Digoxin [Mass/Vol] 1.2 ng/mL Normal 0.8-2.0 [facility] Comment on above: Performed By: #### D GODOY #### [facility] ([id number]) [address] [place] [address] Glucose Glucometer (BldC) [M ass/Vol]on 06-18-2024 Glucose [Mass/Vol] 121 mg/dL High 65-99 [facility] Glucose [Mass/Vol] 141 mg/dL High 65-99 [facility] Glucose [Mass/Vol] 126 mg/dL High 65-99 [facility] Glucose [Mass/Vol] 112 mg/dL High 65-99 [facility] Laboratory comment Víctor (Antoni carmona)on 06-18-2024 UNLISTED LAB TEST Sent to reference lab Normal [facility] MAGNESIUMon 06-18-2024 Magnesium [Mass/Vol] 1.9 mg/dL Normal 1.8-2.6 [facility] Comment on above: Performed By: #### 1 0535-3, 2823-3, 28607-2 ####[facility] ([id number])[address] [address] Magnesium [Mass/Vol] 1.8 mg/dL Normal 1.8-2.6 [facility] Comment on above: Performed By: #### D GODOY #### [facility] ([id number]) [address], [address] [place] [address] [facility] ORDERon 025 TEST NAME FLEC FLECAINIDE RED SERUM Normal [facility] TEST RESULT SEE COMMENTS 06/22/2024 06:[address] [facility] Comment on above: Result Comment: NOTE Test Result Flag Unit RefValue -- Flecainide, S 0.6 mcg/mL REFERENCE VALUE 0.2 - 1.0 (Therapeutic concentration, trough value), >1.0 (Toxic concentration, trough value) ADDITIONAL INFORMATION This test was developed and its performance characteristics determined by [facility] in a manner consistent with CLIA requirements. This test has not been cleared or approved by the U.S. Food and Drug Administration. Test Performed by: [facility] [address] [place] [address] Student Support Advisor: Mino Cain Ph.D.; CLIA# [id number] POTASSIUMon 06-18-2024 Potassium [Moles/Vol] 3.6 mmol/L Normal 3.5-5.0 [facility] Comment on above: Performed By: #### D GODOY #### [facility] ([id number]) [address], [address] [place] [address] COMPREHENSIVE METABOLIC PANE Ab 06-17-2024 Albumin [Mass/Vol] 3.7 g/dL Normal 3.2-5.3 [facility] Comment on above: Performed By: #### C BCA, CMP, 07274-6, 71970-2, 2777-1, 43333- 5 #### [facility] ([id number]) [address], [address] [place] [address] ALP [Catalytic activity/Vol] 64 U/L Normal 39-130 [facility] Comment on above: Performed By: #### C BCA, CMP, 15492-2, 60187-7, 2777-1, 10148- 5 #### [facility] ([id number]) [address], [address] [place] [address] ALT [Catalytic activity/Vol] 9 U/L Normal 0-31 [facility] Comment on above: Performed By: #### C BCA, CMP, 96972-5, 10894-1, 2777-1, 06254- 5 #### [facility] ([id number]) [address], [address] [place] [address] Anion gap [Moles/Vol] 14 mmol/L Normal 5-15 [facility] [facility] Comment on above: Performed By: #### C BCA, CMP, 43722-6, 10098-4, 2777-1, 07978- 5 #### [facility] ([id number]) [address], [address] [place] [address] AST [Catalytic activity/Vol] 11 U/L Normal 0-41 [facility] Comment on above: Performed By: #### C BCA, CMP, 52761-0, 35211-9, 2777-1, 57064- 5 #### [facility] ([id number]) [address], [address] [place] [address] Bilirubin [Mass/Vol] 0.4 mg/dL Normal 0.3-1.2 [facility] Comment on above: Performed By: #### C BCA, CMP, 43400-0, 96036-7, 2777-1, 40112- 5 #### [facility] ([id number]) [address], [address] [place] [address] Calcium [Mass/Vol] 9.2 mg/dL Normal 8.5-10.5 [facility] Comment on above: Performed By: #### C BCA, CMP, 02545-0, 28893-4, 2777-1, 53434- 5 #### [facility] ([id number]) [address], [address] [place] [address] Chloride [Moles/Vol] 103 mmol/L Normal 98-109 [facility] Comment on above: Performed By: #### C BCA, CMP, 95148-3, 84524-8, 2777-1, 18168- 5 #### [facility] ([id number]) [address], [address] [place] [address] CO2 [Moles/Vol] 20 mmol/L Low 22-32 [facility] Comment on above: Performed By: #### C BCA, CMP, 26143-8, 96874-2, 2777-1, 68088- 5 #### [facility] ([id number]) [address], [address] [place] [address] Creatinine [Mass/Vol] 0.34 mg/dL Low 0.40-1.00 [facility] Comment on above: Result Comment: METH OD TRACEABLE TO IDMS STANDARD Performed By: #### C BCA, CMP, 84733-1, 21657-8, 2777-1, 00797-7 #### [facility] ([id number]) [address], [address] [place] [address] eGFR (CKD-EPI) NON-RACE DEPENDENT >90 Normal >59 [facility] Comment on above: Result Comment: Reported eGFR is based on the CKD-EPI 2020 equation that does not use a race coefficient. Performed By: #### C BCA, CMP, 51765-3, 98248-8, 2777-1, 98416-5 #### [facility] ([id number]) [address], [address] [place] [address] Glucose [Mass/Vol] 115 mg/dL High 65-99 [facility] Comment on above: Performed By: #### C BCA, CMP, 45377-6, 86685-3, 2777-1, 96683- 5 #### [facility] ([id number]) [address], [address] [place] [address] Potassium [Moles/Vol] 3.5 mmol/L Normal 3.5-5.0 [facility] Comment on above: Performed By: #### C BCA, CMP, 50923-5, 24549-3, 2777-1, 82417- 5 #### [facility] ([id number]) [address], [address] [place] [address] Protein [Mass/Vol] 6.1 g/dL Normal 6.0-8.0 [facility] Comment on above: Performed By: #### C BCA, CMP, 26502-2, 40588-0, 2777-1, 51795- 5 #### [facility] ([id number]) [address], [address] [place] [address] Sodium [Moles/Vol] 137 mmol/L Normal 134-146 [facility] Comment on above: Performed By: #### C BCA, CMP, 43359-3, 46489-7, 2777-1, 18689- 5 #### [facility] ([id number]) [address], [address] [place] [address] Urea nitrogen [Mass/Vol] 7 mg/dL Normal 5-23 [facility] Comment on above: Performed By: #### C BCA, CMP, 28905-9, 16425-9, 2777-1, 52236- 5 #### [facility] ([id number]) [address], [address] [place] [address] DIGOXINon 06-17-2024 Digoxin [Mass/Vol] 1.1 ng/mL Normal 0.8-2.0 [facility] Comment on above: Performed By: #### C BCA, CMP, 27557-1, 90958-1, 2777-1, 02340- 5 #### [facility] ([id number]) [address], [address] [place] [address] Glucose Glucometer (BldC) [M ass/Vol]on 06-17-2024 Glucose [Mass/Vol] 137 mg/dL High 65-99 [facility] Glucose [Mass/Vol] 147 mg/dL High 65-99 [facility] Glucose [Mass/Vol] 125 mg/dL High 65-99 [facility] Glucose [Mass/Vol] 106 mg/dL High 65-99 [facility] MAGNESIUMon 06-17-2024 Magnesium [Mass/Vol] 1.7 mg/dL Low 1.8-2.6 [facility] Comment on above: Performed By: #### D GODOY #### [facility] ([id number]) [address], [address] [place] [address] POTASSIUMon 06-17-2024 Potassium [Moles/Vol] 4.0 mmol/L Normal 3.5-5.0 [facility] Comment on above: Performed By: #### D GODOY #### [facility] ([id number]) [address], [address] [place] [address] Potassium [Moles/Vol] 3.5 mmol/L Normal 3.5-5.0 [facility] Comment on above: Performed By: #### C BCA, CMP, 93184-9, 38176-3, 2777-1, 06314- 5 #### [facility] ([id number]) [address], [address] [place] [address] COMPREHENSIVE METABOLIC PANE Ab 06-16-2024 Albumin [Mass/Vol] 3.6 g/dL Normal 3.2-5.3 [facility] Comment on above: Performed By: #### C BCA, CMP, 08072-1, 92237-7, 2777-1, 21521- 5 #### [facility] ([id number]) [address], [address] [place] [address] ALP [Catalytic activity/Vol] 63 U/L Normal 39-130 [facility] Comment on above: Performed By: #### C BCA, CMP, 40537-8, 17869-5, 2777-1, 77291- 5 #### [facility] ([id number]) [address], [address] [place] [address] ALT [Catalytic activity/Vol] 8 U/L Normal 0-31 [facility] Comment on above: Performed By: #### C BCA, CMP, 42044-4, 95111-6, 2777-1, 64779- 5 #### [facility] ([id number]) [address], [address] [place] [address] Anion gap [Moles/Vol] 11 mmol/L Normal 5-15 [facility] Comment on above: Performed By: #### C BCA, CMP, 76221-0, 71121-3, 2777-1, 47094- 5 #### [facility] ([id number]) [address], [address] [place] [address] AST [Catalytic activity/Vol] 15 U/L Normal 0-41 [facility] Comment on above: Performed By: #### C BCA, CMP, 33620-7, 32612-6, 2777-1, 45034- 5 #### [facility] ([id number]) [address], [address] [place] [address] Bilirubin [Mass/Vol] 0.4 mg/dL Normal 0.3-1.2 [facility] Comment on above: Performed By: #### C BCA, CMP, 05473-4, 75662-5, 2777-1, 61185- 5 #### [facility] ([id number]) [address], [address] [place] [address] Calcium [Mass/Vol] 8.9 mg/dL Normal 8.5-10.5 [facility] Comment on above: Performed By: #### C BCA, CMP, 29345-6, 64348-7, 2777-1, 01587- 5 #### [facility] ([id number]) [address], [address] [place] [address] Chloride [Moles/Vol] 104 mmol/L Normal 98-109 [facility] Comment on above: Performed By: #### C BCA, CMP, 13432-3, 09098-9, 2777-1, 61682- 5 #### [facility] ([id number]) [address], [address] [place] [address] CO2 [Moles/Vol] 22 mmol/L Normal 22-32 [facility] Comment on above: Performed By: #### C BCA, CMP, 42592-5, 81137-7, 2777-1, 45160- 5 #### [facility] ([id number]) [address], [address] [place] [address] Creatinine [Mass/Vol] 0.33 mg/dL Low 0.40-1.00 [facility] Comment on above: Result Comment: METH OD TRACEABLE TO IDMS STANDARD Performed By: #### C BCA, CMP, 05324-4, 33195-3, 2777-1, 26692-4 #### [facility] ([id number]) [address], [address] [place] [address] eGFR (CKD-EPI) NON-RACE DEPENDENT >90 Normal >59 [facility] Comment on above: Result Comment: Reported eGFR is based on the CKD-EPI 2020 equation that does not use a race coefficient. Performed By: #### C BCA, CMP, 12988-4, 62061-2, 2777-1, 86020-6 #### [facility] ([id number]) [address], [address] [place] [address] Glucose [Mass/Vol] 99 mg/dL Normal 65-99 [facility] Comment on above: Performed By: #### C BCA, CMP, 75421-5, 07318-9, 2777-1, 74424- 5 #### [facility] ([id number]) [address], [address] [place] [address] Potassium [Moles/Vol] 3.5 mmol/L Normal 3.5-5.0 [facility] Comment on above: Performed By: #### C BCA, CMP, 81634-3, 01147-1, 2777-1, 40013- 5 #### [facility] ([id number]) [address], [address] [place] [address] Protein [Mass/Vol] 6.0 g/dL Normal 6.0-8.0 [facility] Comment on above: Performed By: #### C BCA, CMP, 96476-8, 41335-5, 2777-1, 89415- 5 #### [facility] ([id number]) [address], [address] [place] [address] Sodium [Moles/Vol] 137 mmol/L Normal 134-146 [facility] Comment on above: Performed By: #### C BCA, CMP, 19755-3, 03458-3, 2777-1, 82042- 5 #### [facility] ([id number]) [address], [address] [place] [address] Urea nitrogen [Mass/Vol] 8 mg/dL Normal 5-23 [facility] Comment on above: Performed By: #### C BCA, [facility], 82855-0, 15952-0, 2777-1, 62194- 5 #### [facility] ([id number]) [address], [address] [place] [address] Glucose Glucometer (BldC) [M ass/Vol]on 06-16-2024 Glucose [Mass/Vol] 141 mg/dL High 65-99 [facility] Glucose [Mass/Vol] 119 mg/dL High 65-99 [facility] Glucose [Mass/Vol] 111 mg/dL High 65-99 [facility] Glucose [Mass/Vol] 108 mg/dL High 65-99 [facility] Laboratory comment Víctor (Antoni carmona)on 06-16-2024 UNLISTED LAB TEST Sent to reference lab Normal [facility] GENERIC ORDERon 025 TEST NAME [facility] Normal [facility] TEST RESULT SEE COMMENTS 06/18/2024 03:43 PM [facility] Comment on above: Result Comment: NOTE Test Result Flag Unit RefValue -- Flecainide, S 0.3 mcg/mL REFERENCE VALUE 0.2 - 1.0 (Therapeutic concentration, trough value), >1.0 (Toxic concentration, trough value) ADDITIONAL INFORMATION This test was developed and its performance characteristics determined by [facility] in a manner consistent with CLIA requirements. This test has not been cleared or approved by the U.S. Food and Drug Administration. Test Performed by: [facility] [address] [place] [address] Student Support Advisor: Mino Cain Ph.D.; CLIA# [id number] DIGOXINon 06-15-2024 Digoxin [Mass/Vol] 0.4 ng/mL Low 0.8-2.0 [facility] Comment on above: Performed By: #### C ROSA MAGALLON, 07190-7, 98965-7, 2777-1, 76609- 5 #### [facility] ([id number]) [address] [place] [address] [address] [place] [address] Glucose Glucometer ([facility]) [M ass/Vol]on 06-15-2024 Glucose [Mass/Vol] 111 mg/dL High 65-99 [facility] Glucose [Mass/Vol] 106 mg/dL High 65-99 [facility] Glucose [Mass/Vol] 119 mg/dL High 65-99 [facility] Glucose [Mass/Vol] 91 mg/dL Normal 65-99 [facility] MAGNESIUMon 06-15-2024 Magnesium [Mass/Vol] 1.9 mg/dL Normal 1.8-2.6 [facility] Comment on above: Performed By: #### C SHERITA, CMP, 69863-4, 78643-3, 2777-1, 91971- 5 #### [facility] ([id number]) [address] [place] [address] [address] [place] [address] Magnesium [Mass/Vol] 1.7 mg/dL Low 1.8-2.6 [facility] Comment on above: Performed By: #### C SHERITA, CMP, 87702-8, 94904-9, 2777-1, 48045- 5 #### [facility] ([id number]) [address], [address] [place] [address] Magnesium [Mass/Vol] 1.9 mg/dL Normal 1.8-2.6 [facility] Comment on above: Performed By: #### C BCA, CMP, 64826-8, 67929-4, 2777-1, 19151- 5 #### [facility] ([id number]) [address], [address] [place] [address] [facility] ORDERon 04-14-2 025 TEST NAME [facility] Normal [facility] TEST RESULT SEE COMMENTS 06/16/2024 02:04 PM [facility] Comment on above: Result Comment: NOTE Test Result Flag Unit RefValue -- Flecainide, S 0.4 mcg/mL REFERENCE VALUE 0.2 - 1.0 (Therapeutic concentration, trough value), >1.0 (Toxic concentration, trough value) ADDITIONAL INFORMATION This test was developed and its performance characteristics determined by [facility] in a manner consistent with CLIA requirements. This test has not been cleared or approved by the U.S. Food and Drug Administration. Test Performed by: [facility] [address] [place] [address] Student Support Advisor: Mino Cain Ph.D.; CLIA# [id number] POTASSIUMon 06-15-2024 Potassium [Moles/Vol] 3.8 mmol/L Normal 3.5-5.0 [facility] Comment on above: Performed By: #### C BCA, CMP, 15451-8, 95873-9, 2777-1, 59348- 5 #### [facility] ([id number]) [address], [address] [place] [address] Potassium [Moles/Vol] 3.7 mmol/L Normal 3.5-5.0 [facility] Comment on above: Performed By: #### C BCA, CMP, 21976-5, 69869-8, 2777-1, 55974- 5 #### [facility] ([id number]) [address], [address] [place] [address] BASIC METABOLIC PANLon 06-14 Anion gap [Moles/Vol] 10 mmol/L Normal 5-15 [facility] Comment on above: Performed By: #### C BCA, CMP, 17013-2, 71583-5, 2777-1, 18385- 5 #### [facility] ([id number]) [address], [address] [place] [address] Calcium [Mass/Vol] 9.1 mg/dL Normal 8.5-10.5 [facility] Comment on above: Performed By: #### C BCA, CMP, 21145-6, 74469-6, 2777-1, 17565- 5 #### [facility] ([id number]) [address], [address] [place] [address] Chloride [Moles/Vol] 106 mmol/L Normal 98-109 [facility] Comment on above: Performed By: #### C BCA, CMP, 66103-0, 30857-0, 2777-1, 61430- 5 #### [facility] ([id number]) [address] [place] [address] CO2 [Moles/Vol] 24 mmol/L Normal 22-32 [facility] Comment on above: Performed By: #### C BCA, CMP, 24261-9, 13483-2, 2777-1, 09181- 5 #### [facility] ([id number]) [address] [place] [address] Creatinine [Mass/Vol] 0.41 mg/dL Normal 0.40-1.00 [facility] Comment on above: Result Comment: METH OD TRACEABLE TO IDMS STANDARD Performed By: #### C BCA, CMP, 59960-1, 76428-3, 2777-1, 41129-8 #### [facility] ([id number]) [address] [place] [address] eGFR (CKD-EPI) NON-RACE DEPENDENT >90 Normal >59 [facility] Comment on above: Result Comment: Reported eGFR is based on the CKD-EPI 2020 equation that does not use a race coefficient. Performed By: #### C BCA, CMP, 71903-5, 90814-1, 2777-1, 25726-7 #### [facility] ([id number]) [address] [address] Glucose [Mass/Vol] 97 mg/dL Normal 65-99 [facility] Comment on above: Performed By: #### C BCA, CMP, 64737-1, 11202-5, 2777-1, 96101- 5 #### [facility] ([id number]) [address] [address] Potassium [Moles/Vol] 3.8 mmol/L Normal 3.5-5.0 [facility] Comment on above: Performed By: #### C BCA, CMP, 99520-2, 68688-1, 2777-1, 43764- 5 #### [facility] ([id number]) [address], [address] [place] [address] Sodium [Moles/Vol] 140 mmol/L Normal 134-146 [facility] Comment on above: Performed By: #### C BCA, CMP, 92929-2, 13732-0, 2777-1, 99209- 5 #### [facility] ([id number]) [address] [place] [address] Urea nitrogen [Mass/Vol] 8 mg/dL Normal 5-23 [facility] Comment on above: Performed By: #### C BCA, CMP, 85988-4, 74958-5, 2777-1, 95159- 5 #### [facility] ([id number]) [address], [address] [place] [address] Glucose Glucometer (BldC) [M ass/Vol]on 06-14-2024 Glucose [Mass/Vol] 114 mg/dL High 65-99 [facility] Glucose [Mass/Vol] 102 mg/dL High 65-99 [facility] Glucose [Mass/Vol] 111 mg/dL High 65-99 [facility] Glucose [Mass/Vol] 127 mg/dL High 65-99 [facility] MAGNESIUMon 06-14-2024 Magnesium [Mass/Vol] 1.7 mg/dL Low 1.8-2.6 [facility] Comment on above: Performed By: #### C BCA, CMP, 54987-9, 31211-6, 2777-1, 16939- 5 #### [facility] ([id number]) [address], [address] [place] [address] Magnesium [Mass/Vol] 1.6 mg/dL Low 1.8-2.6 [facility] Comment on above: Performed By: #### C BCA, CMP, 63350-2, 26970-5, 2777-1, 64951- 5 #### [facility] ([id number]) [address], [address] [place] [address] POTASSIUMon 06-14-2024 Potassium [Moles/Vol] 3.5 mmol/L Normal 3.5-5.0 [facility] Comment on above: Performed By: #### C BCA, CMP, 31036-1, 75279-1, 2777-1, 47340- 5 #### [facility] ([id number]) [address], [address] [place] [address] Potassium [Moles/Vol] 3.5 mmol/L Normal 3.5-5.0 [facility] Comment on above: Performed By: #### C BCA, CMP, 99094-4, 50645-4, 2777-1, 45641- 5 #### [facility] ([id number]) [address], [address] [place] [address] BASIC METABOLIC PANLon 06-13 Anion gap [Moles/Vol] 10 mmol/L Normal 5-15 [facility] Comment on above: Performed By: #### C BCA, CMP, 12667-3, 41036-6, 2777-1, 13213- 5 #### [facility] ([id number]) [address], [address] [place] [address] Calcium [Mass/Vol] 8.9 mg/dL Normal 8.5-10.5 [facility] Comment on above: Performed By: #### C BCA, CMP, 23198-5, 05175-8, 2777-1, 40162- 5 #### [facility] ([id number]) [address], [address] [place] [address] Chloride [Moles/Vol] 106 mmol/L Normal 98-109 [facility] Comment on above: Performed By: #### C BCA, CMP, 84135-6, 59139-9, 2777-1, 39956- 5 #### [facility] ([id number]) [address] [address] CO2 [Moles/Vol] 24 mmol/L Normal 22-32 [facility] Comment on above: Performed By: #### C BCA, CMP, 92944-6, 74938-3, 2777-1, 96877- 5 #### [facility] ([id number]) [address] [address] Creatinine [Mass/Vol] 0.42 mg/dL Normal 0.40-1.00 [facility] Comment on above: Result Comment: METH OD TRACEABLE TO IDMS STANDARD Performed By: #### C BCA, CMP, 75273-8, 72573-5, 2777-1, 05064-6 #### [facility] ([id number]) [address] [address] eGFR (CKD-EPI) NON-RACE DEPENDENT >90 Normal >59 [facility] Comment on above: Result Comment: Reported eGFR is based on the CKD-EPI 2020 equation that does not use a race coefficient. Performed By: #### C BCA, CMP, 31827-8, 38098-7, 2777-1, 71769-3 #### [facility] ([id number]) [address] [address] Glucose [Mass/Vol] 95 mg/dL Normal 65-99 [facility] Comment on above: Performed By: #### C BCA, CMP, 60881-2, 37391-5, 2777-1, 93737- 5 #### [facility] ([id number]) [address] [address] Potassium [Moles/Vol] 3.4 mmol/L Low 3.5-5.0 [facility] Comment on above: Performed By: #### C BCA, CMP, 57384-1, 83160-3, 2777-1, 56939- 5 #### [facility] ([id number]) [address] [place] [address] Sodium [Moles/Vol] 140 mmol/L Normal 134-146 [facility] Comment on above: Performed By: #### C SHERITA, ROSA, 39140-8, 30106-0, 2777-1, 40377- 5 #### [facility] ([id number]) [address], [address] [place] [address] Urea nitrogen [Mass/Vol] 6 mg/dL Normal 5-23 [facility] Comment on above: Performed By: #### C SHERITA, ROSA, 94615-7, 80766-6, 2777-1, 60395- 5 #### [facility] ([id number]) [address] [place] [address] Glucose Glucometer (BldC) [M ass/Vol]on 06-13-2024 Glucose [Mass/Vol] 100 mg/dL High 65-99 [facility] Glucose [Mass/Vol] 126 mg/dL High 65-99 [facility] Glucose [Mass/Vol] 123 mg/dL High 65-99 [facility] Glucose [Mass/Vol] 94 mg/dL Normal 65-99 [facility] MAGNESIUMon 06-13-2024 Magnesium [Mass/Vol] 2.1 mg/dL Normal 1.8-2.6 [facility] Comment on above: Performed By: #### C SHERITA, ROSA, , 79625-5, 2777-1, 30715- 5 #### [facility] ([id number]) [address], [address] [place] [address] Magnesium [Mass/Vol] 1.5 mg/dL Low 1.8-2.6 [facility] Comment on above: Performed By: #### C SHERITA, CMP, 67468-5, 77040-7, 2777-1, 48554- 5 #### [facility] ([id number]) [address], [address] [place] [address] POTASSIUMon 06-13-2024 Potassium [Moles/Vol] 3.5 mmol/L Normal 3.5-5.0 [facility] Comment on above: Performed By: #### C BCA, CMP, , 61364-6, 2777-1, 02059- 5 #### [facility] ([id number]) [address], [address] [place] [address] BASIC METABOLIC PANLon 06-12 Anion gap [Moles/Vol] 10 mmol/L Normal 5-15 [facility] Comment on above: Performed By: #### B MP, #### [facility] ([id number]) [address], [address] [place] [address] Calcium [Mass/Vol] 9.1 mg/dL Normal 8.5-10.5 [facility] Comment on above: Performed By: #### B ROCIO, #### [facility] ([id number]) [address], [address] [place] [address] Chloride [Moles/Vol] 107 mmol/L Normal 98-109 [facility] Comment on above: Performed By: #### B ROCIO, #### [facility] ([id number]) [address], [address] [place] [address] CO2 [Moles/Vol] 24 mmol/L Normal 22-32 [facility] Comment on above: Performed By: #### B MP, #### [facility] ([id number]) [address], [address] [place] [address] Creatinine [Mass/Vol] 0.42 mg/dL Normal 0.40-1.00 [facility] Comment on above: Result Comment: METH OD TRACEABLE TO IDMS STANDARD Performed By: #### B ROCIO, #### [facility] ([id number]) [address] [address] [place] [address] eGFR (CKD-EPI) NON-RACE DEPENDENT >90 Normal >59 [facility] Comment on above: Result Comment: Reported eGFR is based on the CKD-EPI 2020 equation that does not use a race coefficient. Performed By: #### B ROCIO, #### [facility] ([id number]) [address] [place] [address] Glucose [Mass/Vol] 94 mg/dL Normal 65-99 [facility] Comment on above: Performed By: #### B , #### [facility] ([id number]) [address] [address] [place] [address] Potassium [Moles/Vol] 3.3 mmol/L Low 3.5-5.0 [facility] Comment on above: Performed By: #### B ROCIO, #### [facility] ([id number]) [address] [place] [address] Sodium [Moles/Vol] 141 mmol/L Normal 134-146 [facility] Comment on above: Performed By: #### B ROCIO, #### [facility] ([id number]) [address] [place] [address] Urea nitrogen [Mass/Vol] 5 mg/dL Normal 5-23 [facility] Comment on above: Performed By: #### B ROCIO, #### [facility] ([id number]) [address] [place] [address] DIGOXINon 06-12-2024 Digoxin [Mass/Vol] 0.4 ng/mL Low 0.8-2.0 [facility] Comment on above: Performed By: #### C BCA, CMP, , 37255-3, 2777-1, 80372- 5 #### [facility] ([id number]) [address] [place] [address] Glucose 1 Hr post dose gluco se [Mass/Vol]on 06-12-2024 1ST HR GTT 187 mg/dL High 120-170 [facility] Comment on above: Performed By: #### Heather MAGALLON CMP, 97697-9, 11592-0, 2777-1, 03410- 5 #### [facility] ([id number]) [address] [place] [address] Glucose 2 Hr post 100 g gluc ose PO [Mass/Vol]on 06-12-2024 2ND HR GTT 100GM LOAD 175 mg/dL High 70-139 [facility] Comment on above: Result Comment: Fourth International Workshop Conference: Recommendations and Rationale for Screening and Diagnosis of Gestational Diabetes Mellitus 2 or more of the following must be met or exceeded for a positive diagnosis. FASTING >=95mg/dL 1hr post 100g load >=180mg/dL 2hr post 100g load >=155mg/dL 3hr post 100g load >=140mg/dL Performed By: #### C ROSA MAGALLON, , 64105-5, 2777-1, 95631-4 #### [facility] ([id number]) [address] [place] [address] Glucose 3 Hr post dose gluco se [Mass/Vol]on 06-12-2024 3RD HR GTT 123 mg/dL High 65-99 [facility] Comment on above: Performed By: #### Heather MAGALLON, ROSA, 74488-2, 92779-7, 2777-1, 50044- 5 #### [facility] ([id number]) [address] [place] [address] Glucose Glucometer (BldC) [M ass/Vol]on 06-12-2024 Glucose [Mass/Vol] 118 mg/dL High 65-99 [facility] Glucose [Mass/Vol] 114 mg/dL High 65-99 [facility] Glucose [Mass/Vol] 102 mg/dL High 65-99 [facility] Glucose post fast [Mass/Vol] on 06-12-2024 FASTING GTT 95 mg/dL Normal 65-99 [facility] Comment on above: Performed By: #### 1 558-6 #### [facility] ([id number]) [address] [place] [address] MAGNESIUMon 06-12-2024 Magnesium [Mass/Vol] 1.9 mg/dL Normal 1.8-2.6 [facility] Comment on above: Performed By: #### C BCA, CMP, 82513-7, 92278-2, 2777-1, 88156- 5 #### [facility] ([id number]) [address] [place] [address] Magnesium [Mass/Vol] 1.4 mg/dL Low 1.8-2.6 [facility] Comment on above: Performed By: #### C BCA, CMP, 61621-8, 50695-8, 2777-1, 74817- 5 #### [facility] ([id number]) [address] [place] [address] POTASSIUMon 06-12-2024 Potassium [Moles/Vol] 3.4 mmol/L Low 3.5-5.0 [facility] Comment on above: Performed By: #### C BCA, CMP, 18412-6, 96772-8, 2777-1, 62457- 5 #### [facility] ([id number]) [address] [place] [address] CBC AND AUTO DIFFon 06-12-19 25 ABSOLUTE BASOPHIL 0.0 X10E9/L Normal 0.0-0.2 [facility] Comment on above: Performed By: #### C BCA, CMP, 85258-8, 09291-2, 2777-1, 79904- 5 #### [facility] ([id number]) [address] [place] [address] ABSOLUTE NEUTROPHIL 6.7 X10E9/L High 1.5-6.6 [facility] Comment on above: Performed By: #### C BCA, CMP, 19904-0, 35826-9, 2777-1, 99014- 5 #### [facility] ([id number]) [address] [place] [address] Basophils/100 WBC (Bld) 0.4 % Normal [facility] Comment on above: Performed By: #### C BCA, CMP, 90056-1, 66681-8, 2777-1, 72971- 5 #### [facility] ([id number]) [address] [place] [address] Eosinophils (Bld) [#/Vol] 0.0 10*3/uL Normal 0.0-0.4 [facility] Comment on above: Performed By: #### C BCA, CMP, 62269-1, 58724-9, 2777-1, 89732- 5 #### [facility] ([id number]) [address] [place] [address] Eosinophils/100 WBC (Bld) 0.4 % Normal [facility] Comment on above: Performed By: #### C BCA, CMP, 41772-5, 35029-4, 2777-1, 28707- 5 #### [facility] ([id number]) [address] [place] [address] Erythrocyte distribution width (RBC) [Ratio] 13.8 % Normal 11.5-15.0 [facility] Comment on above: Performed By: #### C BCA, CMP, 90623-7, 89358-4, 2777-1, 04881- 5 #### [facility] ([id number]) [address] [place] [address] Hematocrit (Bld) [Volume fraction] 36.3 % Normal 35-47 [facility] Comment on above: Performed By: #### C BCA, CMP, 78719-8, 86605-9, 2777-1, 64559- 5 #### [facility] ([id number]) [address] [place] [address] Hemoglobin (Bld) [Mass/Vol] 12.3 g/dL Normal 11.7-15.5 [facility] Comment on above: Performed By: #### C BCA, CMP, 95808-5, 08590-7, 2777-1, 53837- 5 #### [facility] ([id number]) [address] [place] [address] Lymphocytes (Bld) [#/Vol] 1.6 10*3/uL Normal 1.0-3.5 [facility] Comment on above: Performed By: #### C BCA, CMP, 95350-5, 95345-7, 2777-1, 39870- 5 #### [facility] ([id number]) [address] [place] [address] Lymphocytes/100 WBC (Bld) 18.3 % Normal [facility] Comment on above: Performed By: #### C BCA, CMP, 33435-4, 86972-7, 2777-1, 62196- 5 #### [facility] ([id number]) [address] [place] [address] MCH (RBC) [Entitic mass] 28.6 pg Normal 27-34 [facility] Comment on above: Performed By: #### C BCA, CMP, 09288-2, 52763-7, 2777-1, 15769- 5 #### [facility] ([id number]) [address] [place] [address] MCHC (RBC) [Mass/Vol] 33.8 g/dL Normal 32-36 [facility] Comment on above: Performed By: #### C BCA, CMP, 39108-4, 97680-0, 2777-1, 64808- 5 #### [facility] ([id number]) [address] [place] [address] MCV (RBC) [Entitic vol] 85 fL Normal 80-100 [facility] Comment on above: Performed By: #### C BCA, CMP, 90145-0, 96567-5, 2777-1, 02714- 5 #### [facility] ([id number]) [address] [place] [address] Monocytes (Bld) [#/Vol] 0.5 10*3/uL Normal 0-0.9 [facility] Comment on above: Performed By: #### C BCA, CMP, 81248-0, 13856-2, 2777-1, 14148- 5 #### [facility] ([id number]) [address] [place] [address] Monocytes/100 WBC (Bld) 5.7 % Normal [facility] Comment on above: Performed By: #### C BCA, CMP, 87818-7, 78171-2, 2777-1, 60484- 5 #### [facility] ([id number]) [address] [place] [address] Neutrophils/100 WBC (Bld) 75.2 % Normal [facility] Comment on above: Performed By: #### C BCA, CMP, 55786-0, 63548-9, 2777-1, 59248- 5 #### [facility] ([id number]) [address] [place] [address] Platelet mean volume (Bld) [Entitic vol] 7.1 fL Normal 7-12 [facility] Comment on above: Performed By: #### C BCA, CMP, 87436-0, 53491-1, 2777-1, 47631- 5 #### [facility] ([id number]) [address] [place] [address] Platelets (Bld) [#/Vol] 231 10*3/uL Normal 150-450 [facility] Comment on above: Performed By: #### C BCA, CMP, 11649-3, 01547-5, 2777-1, 65353- 5 #### [facility] ([id number]) [address] [place] [address] RBC COUNT 4.30 X10E12/L Normal 3.80-5.20 [facility] Comment on above: Performed By: #### C BCA, CMP, 64873-4, 30055-7, 2777-1, 08420- 5 #### [facility] ([id number]) [address] [place] [address] WBC (Bld) [#/Vol] 8.9 10*3/uL Normal 4.0-11.0 [facility] Comment on above: Performed By: #### C BCA, CMP, 42880-4, 81891-3, 2777-1, 41155- 5 #### [facility] ([id number]) [address] [place] [address] COMPREHENSIVE METABOLIC PANE Ab 06-11-2024 Albumin [Mass/Vol] 3.6 g/dL Normal 3.2-5.3 [facility] Comment on above: Performed By: #### C BCA, CMP, 54475-8, 60713-2, 2777-1, 68730- 5 #### [facility] ([id number]) [address] [place] [address] ALP [Catalytic activity/Vol] 64 U/L Normal 39-130 [facility] Comment on above: Performed By: #### C BCA, CMP, 49569-7, 17497-2, 2777-1, 20901- 5 #### [facility] ([id number]) [address] [place] [address] ALT [Catalytic activity/Vol] 10 U/L Normal 0-31 [facility] Comment on above: Performed By: #### C BCA, CMP, 43943-0, 76053-2, 2777-1, 80643- 5 #### [facility] ([id number]) [address] [place] [address] Anion gap [Moles/Vol] 12 mmol/L Normal 5-15 [facility] Comment on above: Performed By: #### C BCA, CMP, 12618-2, 39884-3, 2777-1, 97903- 5 #### [facility] ([id number]) [address] [place] [address] AST [Catalytic activity/Vol] 18 U/L Normal 0-41 [facility] Comment on above: Performed By: #### C BCA, CMP, 41478-7, 35409-2, 2777-1, 57906- 5 #### [facility] ([id number]) [address] [place] [address] Bilirubin [Mass/Vol] 0.2 mg/dL Low 0.3-1.2 [facility] Comment on above: Performed By: #### C BCA, CMP, 37646-8, 50760-2, 2777-1, 43485- 5 #### [facility] ([id number]) [address] [place] [address] Calcium [Mass/Vol] 8.8 mg/dL Normal 8.5-10.5 [facility] Comment on above: Performed By: #### C BCA, CMP, 50226-7, 39129-0, 2777-1, 84563- 5 #### [facility] ([id number]) [address] [place] [address] Chloride [Moles/Vol] 109 mmol/L Normal 98-109 [facility] Comment on above: Performed By: #### C BCA, CMP, 46144-6, 47816-2, 2777-1, 05000- 5 #### [facility] ([id number]) [address] [place] [address] CO2 [Moles/Vol] 20 mmol/L Low 22-32 [facility] Comment on above: Performed By: #### C BCA, CMP, 54001-0, 51586-0, 2777-1, 69937- 5 #### [facility] ([id number]) [address] [facility] [address] [place] [address] Creatinine [Mass/Vol] 0.44 mg/dL Normal 0.40-1.00 [facility] Comment on above: Result Comment: METH OD TRACEABLE TO IDMS STANDARD Performed By: #### C BCA, CMP, 88479-7, 70948-9, 2777-1, 19403-0 #### [facility] ([id number]) [address] [place] [address] eGFR (CKD-EPI) NON-RACE DEPENDENT >90 Normal >59 [facility] Comment on above: Result Comment: Reported eGFR is based on the CKD-EPI 2020 equation that does not use a race coefficient. Performed By: #### C BCA, CMP, 49336-3, 06515-5, 2777-1, 57337-2 #### [facility] ([id number]) [address] [place] [address] Glucose [Mass/Vol] 79 mg/dL Normal 65-99 [facility] Comment on above: Performed By: #### C BCA, CMP, 21893-8, 78655-7, 2777-1, 15001- 5 #### [facility] ([id number]) [address] [place] [address] Potassium [Moles/Vol] 3.4 mmol/L Low 3.5-5.0 [facility] Comment on above: Performed By: #### C BCA, CMP, 03389-4, 15248-1, 2777-1, 27451- 5 #### [facility] ([id number]) [address] [place] [address] Protein [Mass/Vol] 6.2 g/dL Normal 6.0-8.0 [facility] Comment on above: Performed By: #### C BCA, CMP, 68140-5, 89514-4, 2777-1, 27777- 5 #### [facility] ([id number]) [address] [place] [address] Sodium [Moles/Vol] 141 mmol/L Normal 134-146 [facility] Comment on above: Performed By: #### C BCA, CMP, 94691-0, 72554-1, 2777-1, 71994- 5 #### [facility] ([id number]) [address] [place] [address] Urea nitrogen [Mass/Vol] 5 mg/dL Normal 5-23 [facility] Comment on above: Performed By: #### C BCA, CMP, 85388-3, 29786-2, 2777-1, 67336- 5 #### [facility] ([id number]) [address] [place] [address] DRUG SCREEN, URINEon 025 AMPHETAMINE/METHAMP Negative Normal NEG [facility] Comment on above: Result Comment: AMPH /METH screening cut off = 1000 ng/mL Performed By: #### D GODOY #### [facility] ([id number]) [address] [place] [address] BARBITURATES Negative Normal NEG [facility] Comment on above: Result Comment: Jacqueline iturates screening cut off value = 200 ng/mL Performed By: #### D GODOY #### [facility] ([id number]) [address] [place] [address] BENZODIAZEPINES Negative Normal NEG [facility] Comment on above: Result Comment: Jayjay odiazepines screening cut off value = 200 ng/mL Performed By: #### D GODOY #### [facility] ([id number]) [address] [place] [address] CANNABINOIDS Negative Normal NEG [facility] Comment on above: Result Comment: Brandon abinoids/THC screening cut off value = 50 ng/mL Performed By: #### D GODOY #### [facility] ([id number]) [address] [place] [address] COCAINE METABOLITE Negative Normal NEG [facility] Comment on above: Result Comment: Coca ine screening cut off value = 300 ng/mL Performed By: #### D GODOY #### [facility] ([id number]) [address] [place] [address] ECSTASY Negative Normal NEG [facility] Comment on above: Result Comment: Ecst asy screening cut off value = 500 ng/mL This report is intended for use in clinical monitoring or management of patients. Performed By: #### D GODOY #### [facility] ([id number]) [address] [place] [address] METHADONE Negative Normal NEG [facility] Comment on above: Result Comment: Meth adone screening cut off value = 300 ng/mL. Performed By: #### D GODOY #### [facility] ([id number]) [address] [place] [address] OPIATES Negative Normal NEG [facility] Comment on above: Result Comment: Opia beni screening cut off value = 300 ng/mL NOTE: This test is used for the detection of codeine, hydrocodone (>1000 ng/mL), morphine and hydromorphone (>900 ng/mL) in urine. Performed By: #### D GODOY #### [facility] ([id number]) [address] [place] [address] OXYCODONE Negative Normal NEG [facility] Comment on above: Result Comment: Oxyc odone screening cut off value = 300 ng/mL NOTE: This test is used for the detection of oxycodone and oxymorphone in urine. Performed By: #### D GODOY #### [facility] ([id number]) [address] [place] [address] PHENCYCLIDINE Negative Normal NEG [facility] Comment on above: Result Comment: Phen cyclidine screening cut off value = 25 ng/mL Performed By: #### D GODOY #### [facility] ([id number]) [address] [place] [address] MAGNESIUMon 06-11-2024 Magnesium [Mass/Vol] 1.7 mg/dL Low 1.8-2.6 [facility] Comment on above: Performed By: #### C BCA, CMP, 92492-1, 11252-1, 2777-1, 72002- 5 #### [facility] ([id number]) [address] [place] [address] PHOSPHORUSon 06-11-2024 Phosphate [Mass/Vol] 4.0 mg/dL Normal 2.4-4.9 [facility] Comment on above: Performed By: #### C BCA, CMP, 63612-1, 86020-6, 2777-1, 76113- 5 #### [facility] ([id number]) [address] [place] [address] T. pallidum IgG+IgM IA Ql (S )on 06-11-2024 Syphilis Total <0.2 Normal 0.0-0.8 [facility] Comment on above: Result Comment: NON REACTIVE No serologic evidence of infection to Treponema pallidum (syphilis). Repeat testing may be considered in patients with suspected acute or primary syphilis in 2 to 4 weeks. Performed By: #### C SHERITA [facility], 78032-1, 76717-2, 2777-1, 33255-0 #### [facility] ([id number]) [address] [place] [address] Ultrasound - OfficeOrdered B y: Ravinder Burnett on 06-11-2024 Radiology Study observation (narrative) [facility] Ultrasound - Officeon 2024 Radiology Study observation (narrative) [facility] Vitamin D+Metabolites [Mass/ Vol]on 06-11-2024 VITAMIN D 25 HYD TOT 23.3 ng/mL Low 30-100 [facility] Comment on above: Result Comment: Vitamin D status 25 [place] Vitamin D Deficiency <20 ng/mL Insufficiency 20-29 ng/mL Sufficiency 30-100 ng/mL Toxicity >100 ng/mL NOTE: A pediatric reference range has not been established by the electrical logging operator of this kit. [employer] [place] [employer] recommends a Vitamin D level of = or >20ng/mL in infants and children. Performed By: #### C SHERITA [facility], 31414-9, 27448-6, 2777-1, 92291-4 #### [facility] ([id number]) [address] [place] [address] ALL CBC WITH AUTO DIFFon BASOPHILS ABSOLUTE AUTO 0 [facility] Basophils/100 WBC (Bld) 0.2 % 0.2 - 2.0 % [facility] Eosinophils/100 WBC (Bld) 0.6 % Low 0.9 - 7.0 % [facility] Erythrocyte distribution width (RBC) [Ratio] 13.6 % 11.0 - 15.0 % [facility] Hematocrit (Bld) [Volume fraction] 36.1 % 36.0 - 48.0 % [facility] Hem[facility] (Bld) [Mass/Vol] 12.2 g/dL 12.0 - 16.0 g/dL [facility] IMMATURE GRANULOCYTES ABS AUTO 0.06 High [facility] Immature granulocytes/100 WBC (Bld) 0.7 % High 0.0 - 0.5 % [facility] Interpretation and review of laboratory results Abnormal [facility] LYMPHOCYTES ABSOLUTE AUTO 1.7 [facility] Lymphocytes/100 WBC (Bld) 19.5 % Low 20.5 - 60.0 % [facility] MCH (RBC) [Entitic mass] 29.1 pg 26.7 - 34.0 pg [facility] MCHC (RBC) [Mass/Vol] 33.8 g/dL 29.9 - 35.2 g/dL [facility] MCV (RBC) [Entitic vol] 86.2 fL 81.0 - 99.0 fL [facility] MONOCYTES ABSOLUTE AUTO 0.6 [facility] Monocytes/100 WBC (Bld) 6.4 % 1.7 - 12.0 % [facility] NEUTROPHILS ABSOLUTE AUTO 6.5 [facility] Neutrophils/100 WBC (Bld) 72.6 % 43.0 - 75.0 % [facility] Platelet mean volume (Bld) [Entitic vol] 9 fL Low 9.5 - 13.5 fL [facility] # [facility].1 [facility] e TB PLT 257 [facility] TB RBC 4.19 Low [facility] TB WBC 8.9 [facility] e CLINISYNC [facility] No Panel Informationon 06-10 [facility] e TSHon 06-10-2024 Thyroid Stimulating (3Rd Generation) Hormone/ Tsh 1.48 [facility] Urinalysis macro (dipstick) panel (U)on 06-10-2024 Bilirubin, UA Negative Negative - 4(70) +++ mg/dL [facility] Blood, UA Negative Negative - 50 Jordan/mcL [facility] Clarity, UA Clear [facility] Healthca re Color, UA Yellow [facility] Glucose, UA Negative Negative - 1999(110) ++++ mg/dL [facility] Interpretation and review of laboratory results Normal [facility] Ketones, UA Negative Negative - 160(16) ++++ mg/dL [facility] Leukocytes, UA Negative Negative - 500+++ Leanne/mcL [facility] Nitrite, UA Negative Negative - Positive [facility] pH, UA 7 5 - 9 [facility] Health[facility] e Protein, UA Negative Negative - 1999(20) ++++ mg/dL [facility] Spec Grav, UA 1.015 1 - 1.03 [facility] Urobilinogen, UA 0.2 0.2 - 12 mg/dL [facility] Ultrasound - Officeon 2024 [facility] US OB 14+ WEEKS ANATOMY SCAN [...] 3. Unremarkable ultrasound of the anatomy. Electronically Signed:Danay ramirez signed by SUNNY MARIN II, MD, PHD at 13-May-2024 08:36:44 AM [employer] [place] [facility] Normal Not Available Comment on above: Order Comment: US OB ANATOMY SINGLE W US OB CERVICAL LENGTH Estimated Date of Delivery: 09/04/24 Gestational Age as of 04/15/2024: 19w5d AFP, SERUM, OPEN SPINA BIFID Aon 05-07-2024 AFP [facility].00 . [facility].2 [facility]/mL . [facility] [employer] COMMENT: Comment . [facility] [employer] Comment on above: Fiona White , Ph.D., [facility] Director References: Available Upon Request. Multiples Of Median Cutoffs For AFP Elevations Ramírez 2.5 Black 2.8 IDD 2.0 Twins 4.5 Abbreviation Definitions IDD - Insulin Dep Diabetes OSBR - Open Spina Bifida Risk For further inquiries contact [employer] at [phone]. This test was developed and its performance characteristics determined by [employer]. It has not been cleared or approved by the Food and Drug Administration. Performed at: [facility] [employer] [address], [place] [id number] Student Support Advisor: Darlene Snyder [facility], Phone: [phone] GEST. AGE ON COLLECTION DATE 22.4 . weeks [facility] GESTAT. AGE BASED ON Ultrasound . [facility] Comment on above: 19.7 on 04/15/2024 Recalculations are not recommended when gestational dating by LMP and ultrasound are within 10 days. INSULIN DEP DIABETES No . [facility] INTERPRETATION Comment . [facility] Comment on above: Interpretation: Scre en [...] Customer Services to discuss available options. [employer] [place] [employer] recommends amniocentesis be offered to women age 35 and older. [age] [facility] MULTIPLE GESTATION No . [facility] [place] [address] [place] [id number] . [facility] R[facility] . [facility] [employer] RESULTS Report . [facility] [employer] e TEST RESULTS: Negative . [facility] Health care WEIGHT 195 . lbs [facility] Healthcar e N N ULTRASOUND [id number] 5 19 N 1 195 N N N N N White/ CL[facility]ISYNC [facility] Healthcar e IGP,APTIMA HPV,AGE GDLNon AGE GDLN ACOG TESTING Note . [facility] Comment on above: TESTS RESULT FLAG UN ITS REF RANGE LAB Clinician Provided Cytology Information Source.............Cervix No. of containers..01 ThinPrep Vial Age Algo ACOG Beni... 01 FLAG LEGEND: L-Low Normal,H-High Normal,LL-Alert Low,HH-Alert High <-Panic Low,>-Panic High,A-Abnormal,AA-Critical Abnormal Performed at: 01 =G [facility] [address] [facility] [place] [address] Ania Barnes MD, IGP, RFX APTIMA HPV ASCU Note . [facility] Comment on above: TESTS RESULT FLAG UN ITS REF RANGE LAB DIAGNOSIS: 02 NEGATIVE FOR INTRAEPITHELIAL LESION OR MALIGNANCY. Specimen adequacy: 02 Satisfactory for evaluation. No endocervical component is identified. Performed by: Sue Butler Rehabilitation Technician ([facility]) . 02 Note: Note 02 [...] <-Panic Low,>-Panic High,A-Abnormal,AA-Critical Abnormal Performed at: [address] [id number] Ania Barnes MD, Performed at: = - [facility], [place] [id number] Student Support Advisor: Ania Barnes MD, Phone: [phone] Performed at: [address] [id number] Student Support Advisor: Ania Branes MD, Phone: [phone] SPATULA-ALONE CERVIX CLINISYNC [facility] Healthcar e RECURRENT VAGINITIS (HTRX)on 04-17-2024 ATOPOBIUM VAGINAE 0 [facility] ATOPOBIUM VAGINAE Not detected [facility] BVAB 2,3 (BACTERIAL VAGINOSIS ASSOCIATED BACTERIA 2, 3); MOBILUNCUS SPP 0 [facility] BVAB 2,3 (BACTERIAL VAGINOSIS ASSOCIATED BACTERIA 2, 3); MOBILUNCUS SPP Not detected [facility] GIL ALBICANS, PARAPSILOSIS, TROPICALIS 0 [facility] GIL ALBICANS, PARAPSILOSIS, TROPICALIS Not detected [facility] GIL GLABRATA 0 [facility] GIL GLABRATA Not detected [facility] GIL KRUSEI 0 [facility] GIL KRUSEI Not detected [facility] CHLAMYDIA TRACHOMATIS 0 [facility] CHLAMYDIA TRACHOMATIS Not detected [facility] GARDNERELLA VAGINALIS 0 [facility] GARDNERELLA VAGINALIS Not detected N [facility] MEGASPHAERA (TYPES 1, 2) 0 [facility] MEGASPHAERA (TYPES 1, 2) Not detected [facility] MYCOPLASMA GENITALIUM 0 [facility] MYCOPLASMA GENITALIUM Not detected N [facility] NEISSERIA GONORRHOEAE 0 [facility] NEISSERIA GONORRHOEAE Not detected N [facility] TRICHOMONAS VAGINALIS 0 [facility] TRICHOMONAS VAGINALIS Not detected [facility] Urinalysis macro (dipstick) panel (U)Ordered By: Ijeoma Carrera on 04-15-2024 Bilirubin, UA Negative Negative - 4(70) +++ mg/dL [facility] Blood, UA Negative Negative - 50 Jordan/mcL [facility] Clarity, UA Clear [facility] re Color, UA Yellow [facility] e Glucose, UA Negative Negative - 1999(110) ++++ mg/dL [facility] Interpretation and review of laboratory results Normal [facility] Ketones, UA Negative Negative - 160(16) ++++ mg/dL [facility] Leukocytes, UA Negative Negative - 500+++ Leanne/mcL [facility] Nitrite, UA Negative Negative - Positive [facility] pH, UA 6.5 5 - 9 [facility] Protein, UA Negative Negative - 1999(20) ++++ mg/dL [facility] Spec Grav, UA 1.02 1 - 1.03 [facility] Urobilinogen, UA 1.0 0.2 - 12 mg/dL [facility] ALL CBC WITH AUTO DIFFon BASOPHILS ABSOLUTE AUTO 0.1 [facility] Basophils/100 WBC (Bld) 0.5 % 0.2 - 2.0 % [facility] Eosinophils/100 WBC (Bld) 0.4 % Low 0.9 - 7.0 % [facility] Erythrocyte distribution width (RBC) [Ratio] 12.4 % 11.0 - 15.0 % [facility] Hematocrit (Bld) [Volume fraction] 39.8 % 36.0 - 48.0 % [facility] Healthcar e Hemoglobin (Bld) [Mass/Vol] 13.5 g/dL 12.0 - 16.0 g/dL [facility] IMMATURE GRANULOCYTES ABS AUTO 0.03 [facility] Immature granulocytes/100 WBC (Bld) 0.3 % 0.0 - 0.5 % [facility] Interpretation and review of laboratory results Abnormal [facility] LYMPHOCYTES ABSOLUTE AUTO 1.8 [facility] Lymphocytes/100 WBC (Bld) 16.2 % Low 20.5 - 60.0 % [facility] MCH (RBC) [Entitic mass] 28.8 pg 26.7 - 34.0 pg [facility] MCHC (RBC) [Mass/Vol] 33.9 g/dL 29.9 - 35.2 g/dL [facility] MCV (RBC) [Entitic vol] 85 fL 81.0 - 99.0 fL [facility] MONOCYTES ABSOLUTE AUTO 0.4 [facility] Monocytes/100 WBC (Bld) 3.8 % 1.7 - 12.0 % [facility] NEUTROPHILS ABSOLUTE AUTO 8.8 High [facility] Neutrophils/100 WBC (Bld) 78.8 % High 43.0 - 75.0 % [facility] Platelet mean volume (Bld) [Entitic vol] 9 fL Low 9.5 - 13.5 fL [facility] # 0 [facility] TB PLT 351 [facility] TB RBC 4.68 [facility] TB WBC 11.2 High [facility] Healthcar e CLINISYNC Drug Screen, Urineon 02-13- 024 Amphetamine/Methamphe tamine Negative [facility] Barbiturates Negative [facility] Benzodiazepines Negative [facility] Cocaine Metabolite Negative [facility] Methadone Negative [facility] Opiates Negative [facility] Oxycodone Negative [facility] Phencyclidine Negative [facility] Thc Marijuana, Urine Negative [facility] HIV 1&2 AB/AG Screen (P24 AG )on 02-14-2024 HIV 1&2 AB/AG Non-Reactive [facility] Hemoglobin A1con 02-14-2024 HbA1c (Bld) [Mass fraction] 4.8 % 4.0 - 6.0 % [facility] Hepatitis B surface antigeno n 02-14-2024 Hepatitis B Surface Antigen Negative [facility] No Panel Informationon 02-13 [facility] Rubella IGG immune statuson 02-14-2024 Rubella immune IgG immune [facility] Syphilis Total(Unknown Syphi lis Status)Ordered By: Ravinder Burnett on 02-14-2024 Syphilis Non-Reactive [facility] TBH DRUG SCREEN RAPID (URINE [...] [facility] PHENCYCLIDINE SCREEN URINE Negative NEGATIVE [facility] TRICYCLIC ANTIDEPRESSANT URINE Negative NEGATIVE [facility] care CLINISYNC [facility] Type and screenon 02-14-2024 Abo/Rh(D) Positive [facility] HCG ( test) Ql (U)o n 02-11-2024 Interpretation and review of laboratory results Abnormal [facility] Preg Test, Ur Positive Negative [facility] Ultrasound - OfficeOrdered B y: Ravinder Burnett on 02-11-2024 [facility] Urinalysis macro (dipstick) panel (U)on 02-11-2024 Bilirubin, UA Negative Negative - 4(70) +++ mg/dL [facility] Blood, UA Negative Negative - 50 Jordan/mcL [facility] Clarity, UA Clear [facility] Healthwa re Color, UA Yellow [facility] Healthcar e Glucose, UA Negative Negative - 1999(110) ++++ mg/dL [facility] Interpretation and review of laboratory results Normal [facility] Ketones, UA Negative Negative - 160(16) ++++ mg/dL [facility] Leukocytes, UA Negative Negative - 500+++ Leanne/mcL [facility] Nitrite, UA Negative Negative - Positive [facility] pH, UA 6 5 - 9 [facility] Healthcar e Protein, UA Negative Negative - 1999(20) ++++ mg/dL [facility] Spec Grav, UA 1.025 1 - 1.03 [facility] Urobilinogen, UA 0.2 0.2 - 12 mg/dL [facility] SARS-CoV-2 (COVID-19) RNA NA A+probe Ql (Resp)on 11-23-2021 SARS-CoV-2 (COVID-19) RNA RASHEED+probe Ql (Unsp spec) Positive [facility] Other Covid-19 PCR ([facility])on 11-03 SARS-CoV-2 (COVID-19) RNA RASHEED+probe Ql (Unsp spec) Not detected Normal NOT DETECTED [facility] Comment on above: Result Comment: This test is not yet approved or cleared by the [place] FDA. When there are no FDA-approved or cleared tests available, and other criteria are met, FDA can make tests available under an emergency access mechanism called an Emergency Use Authorization (EUA). The EUA for this test is supported by the Business Banker of Health and Human Service's (HHS's) declaration [...] consistent with SARS-CoV-2. Performed By: #### C [facility] #### [facility] [address] [place] [address] Dr. Kaela Stewart Vital Signs Date Time Vital Sign Value Performing Clinician Facility 07-29-2024 15:23-0400 Body weight 90.72 kg Chelsea DIAZ Work Phone: [facility] 07-29-2024 15:23-0400 Diastolic blood pressure 80 mm[Hg] Chelsea DIAZ Work Phone: [facility] 07-29-2024 15:23-0400 Systolic blood pressure 122 mm[Hg] Chelsea DIAZ Work Phone: [facility] 07-17-2024 13:48-0400 Body height 160 cm eBrto Suárez MD Work Phone: [facility] 07-17-2024 13:48-0400 Body mass index (BMI) [Ratio] 34.95 kg/m2 Berto Suárez MD Work Phone: [facility] 07-17-2024 13:48-0400 Body weight 89.5 kg Berot Suárez MD Work Phone: [facility] 07-17-2024 13:48-0400 Diastolic blood pressure 71 mm[Hg] Berto Suárez MD Work Phone: [facility] 07-17-2024 13:48-0400 Heart rate 82 /min Berto Suárez MD Work Phone: [facility] 07-17-2024 13:48-0400 Systolic blood pressure 115 mm[Hg] Berto Suárez MD Work Phone: [facility] 07-15-2024 17:02-0400 Body weight 89.81 kg Rosalba Harterly COUNTY ADMINISTRATOR Work Phone: [facility] 07-15-2024 17:02-0400 Diastolic blood pressure 74 mm[Hg] Rosalba Keyur COUNTY ADMINISTRATOR Work Phone: [facility] 07-15-2024 17:02-0400 Systolic blood pressure 116 mm[Hg] Rosalba Keyur COUNTY ADMINISTRATOR Work Phone: [facility] 07-10-2024 10:37-0400 Body mass index (BMI) [Ratio] 34.84 kg/m2 Ania Fenton MD Work Phone: [facility] 07-10-2024 10:37-0400 Body weight 89.22 kg Ania Fenton MD Work Phone: [facility] 07-10-2024 10:37-0400 Diastolic blood pressure 70 mm[Hg] Ania Fenton MD Work Phone: [facility] 07-10-2024 10:37-0400 Systolic blood pressure 108 mm[Hg] Ania Fenton MD Work Phone: [facility] 07-06-2024 16:15-0400 Body mass index (BMI) [Ratio] 35.07 kg/m2 Holly Sheehan RN Work Phone: [facility] 07-06-2024 16:15-0400 Body weight 89.81 kg Holly Sheehan RN Work Phone: [facility] 06-30-2024 11:25-0400 Body weight 88.81 kg Ronald Sri DO Work Phone: [facility] 06-30-2024 11:25-0400 Diastolic blood pressure 72 mm[Hg] Ronald Sri DO Work Phone: [facility] 06-30-2024 11:25-0400 Systolic blood pressure 118 mm[Hg] Ronald Sri DO Work Phone: [facility] 06-11-2024 14:12-0400 Body height 160 cm Nikolina Docheva MD Work Phone: [facility] 06-11-2024 14:12-0400 Diastolic blood pressure 76 mm[Hg] Berto Suárez MD Work Phone: [facility] 06-11-2024 14:12-0400 Heart rate 111 /min Berto Suárez MD Work Phone: [facility] 06-11-2024 14:12-0400 Systolic blood pressure 119 mm[Hg] Berto Suárez MD Work Phone: [facility] 06-10-2024 15:58-0400 Body weight 92.76 kg Ronald Sri DO Work Phone: [facility] 06-10-2024 15:58-0400 Diastolic blood pressure 76 mm[Hg] Ronald Sri DO Work Phone: [facility] 06-10-2024 15:58-0400 Systolic blood pressure 114 mm[Hg] Ronald Sri DO Work Phone: [facility] 04-15-2024 16:36-0500 Body weight 88.63 kg Chelsea DIAZ Work Phone: [facility] 04-15-2024 16:36-0500 Diastolic blood pressure 66 mm[Hg] Chelsea DIAZ Work Phone: [facility] 04-15-2024 16:36-0500 Systolic blood pressure 110 mm[Hg] Chelsea DIAZ Work Phone: [facility] 04-04-2024 10:57-0500 Body height 157.48 cm [facility] 04-04-2024 10:57-0500 Body mass index (BMI) [Ratio] 35.4 kg/m2 [facility] 04-04-2024 10:57-0500 Body temperature 99.8 [degF] [facility] 04-04-2024 10:57-0500 Body weight 87.99 kg [facility] 04-04-2024 10:57-0500 Diastolic blood pressure 71 mm[Hg] [facility] 04-04-2024 10:57-0500 Heart rate 118 /min [facility] 04-04-2024 10:57-0500 Respiratory rate 16 /min [facility] 04-04-2024 10:57-0500 SaO2% (BldA) [Mass fraction] 98 % [facility] 04-04-2024 10:57-0500 Systolic blood pressure 101 mm[Hg] [facility] 03-16-2024 16:35-0500 Body weight 88.18 kg Ronald Sri DO Work Phone: [facility] 03-16-2024 16:35-0500 Diastolic blood pressure 68 mm[Hg] Ronald Sri DO Work Phone: [facility] 03-16-2024 16:35-0500 Systolic blood pressure 108 mm[Hg] Ronald Sri DO Work Phone: [facility] 02-11-2024 09:32-0500 Body weight 86.18 kg Nom Nurse [facility] 02-11-2024 09:32-0500 Diastolic blood pressure 70 mm[Hg] [facility] Nurse [facility] 02-11-2024 09:32-0500 Systolic blood pressure 110 mm[Hg] [facility] Nurse [facility] 11-23-2021 14:10-0400 Body height 154.94 cm Marianna Moralez Other [facility] Other 11-23-2021 14:10-0400 Body mass index (BMI) [Ratio] 34.01 kg/m2 Marianna Moralez Other [facility] Other 11-23-2021 14:10-0400 Body temperature 99.8 [degF] Marianna Moralez Other [facility] Other 11-23-2021 14:10-0400 Body weight 81.65 kg Marianna Moralez Other [facility] Other 11-23-2021 14:10-0400 Respiratory rate 18 /min Marianna Moralez Other [facility] Other 11-23-2021 14:10-0400 SaO2% (BldA) [Mass fraction] 97 % Marianna Moralez Other [employer] Other Encounters Encounter Date Encounter Type Care Provider Facility Start: 08-04-2024 End: 08-04-2024 ambulatory [place] [facility] Start: 07-31-2024 End: 07-31-2024 Clinisync Result Encounter Ronald Sri DO Work Phone: [facility] External Department Unsolicited Start: 07-31-2024 End: 07-31-2024 Clinisync Result Encounter Ronald Sri DO Work Phone: [facility] External Department Unsolicited Start: 07-29-2024 End: 07-29-2024 ambulatory CHELSEA CARSON Not Available Start: 07-29-2024 End: 07-29-2024 Office outpatient visit 15 minutes Chelsea DIAZ Work Phone: [facility] Comment on above: Third trimester preg martha; 34 weeks gestation of Start: 07-29-2024 End: 07-29-2024 Bamboo flowsheet Chelsea DIAZ Work Phone: [facility] Start: 07-29-2024 End: 07-29-2024 Bamboo flowsheet Chelsea DIAZ Work Phone: [facility] Start: 07-28-2024 End: 07-28-2024 Orders Only Chelsea Segura LPN [facility] Comment on above: Gestational diabetes mellitus (GDM) in third trimester, gestational diabetes method of control unspecified (Primary Dx); Supraventricular tachycardia of fetus affecting management of ; Excessive growth affecting management of in second trimester, single or unspecified fetus; Polyhydramnios affecting Start: 07-24-2024 End: 07-24-[address] [facility] Start: 07-21-2024 End: 07-21-2024 Telephone encounter Lila Zhao RN [facility] Start: 07-17-2024 End: 07-17-2024 ambulatory CHAVEZ TRONCOSO [facility] Start: 07-17-2024 End: 07-17-2024 Office outpatient visit 25 minutes Berto Suárez MD Work Phone: [facility] Comment on above: 33 weeks gestation o f (Primary Dx); Gestational diabetes mellitus (GDM) in third trimester, gestational diabetes method of control unspecified; Supraventricular tachycardia of fetus affecting management of ; Excessive growth affecting management of in second trimester, single or unspecified fetus Start: 07-17-2024 End: 07-17-2024 Clinisync Result Encounter Ronald Jaquezo DO Work Phone: [facility] External Department Unsolicited Start: 07-17-2024 End: 07-17-2024 Clinisync Result Encounter Ronaldashley Jaquezo DO Work Phone: [facility] External Department Unsolicited Start: 07-17-2024 End: 07-17-2024 [facility] Start: 07-15-2024 End: 07-15-2024 Office outpatient visit 15 minutes Rosalba Baer NP Work Phone: [facility] Comment on above: Third trimester preg martha; 32 weeks gestation of Start: 07-15-2024 End: 07-15-2024 ambulatory ROSALBA BAER Not Available Start: 07-15-2024 End: 07-15-2024 Bamboo flowsheet Rosalba Baer COUNTY ADMINISTRATOR Work Phone: [facility] Start: 07-15-2024 End: 07-15-2024 Bamboo flowsheet Rosalba Baer COUNTY ADMINISTRATOR Work Phone: [facility] Start: 07-10-2024 End: 07-10-2024 ambulatory Ania Fenton MD Work Phone: [facility] Comment on above: GA: 32w0d Start: 07-06-2024 End: 07-06-2024 Orders Only Holly Sheehan RN Work Phone: [facility] Comment on above: Diet controlled gest [...] OB Comment on above: Third trimester preg martha; 30 weeks gestation of ; Supraventricular tachycardia of fetus affecting management of ; Polyhydramnios affecting ; Excessive growth affecting management of in third trimester, single or unspecified fetus Start: 06-30-2024 End: 06-30-2024 ambulatory RONALD SRI Not Available Start: 06-29-2024 End: 06-29-2024 Documentation procedure Hayley Conner RDMA [facility] Start: 06-29-2024 End: 06-29-2024 Telephone encounter Mendy North RN [facility] Start: 06-26-2024 End: 06-26-2024 Orders Only Anahi Ragsdale RN [facility] Comment on above: Diet controlled gest ational diabetes mellitus (GDM) in third trimester (Primary Dx) Start: 06-24-2024 End: 06-28-2024 Evaluation and management of inpatient [facility] Start: 06-24-2024 End: 06-24-2024 Evaluation and management of inpatient [facility] Start: 06-23-2024 End: 06-23-2024 Evaluation and management of inpatient [facility] Start: 06-22-2024 End: 06-22-2024 Telephone encounter Luther Hodgeediclesly serrano Comment on above: Medication Problem Start: 06-22-2024 End: 06-28-2024 [facility] Start: 06-22-2024 End: 06-22-2024 Evaluation and management of inpatient [facility] Start: 06-21-2024 End: 06-21-2024 Telephone encounter Bhavani serrano Comment on above: patient update Start: 06-21-2024 End: 06-21-2024 Evaluation and management of inpatient [facility] Start: 06-20-2024 End: 06-20-2024 Evaluation and management of inpatient [facility] Start: 06-19-2024 End: 06-28-2024 Evaluation and management of inpatient [facility] Start: 06-18-2024 End: 06-18-2024 Evaluation and management of inpatient [facility] Start: 06-17-2024 End: 06-17-2024 Evaluation and management of inpatient [facility] Start: 06-16-2024 End: 06-16-2024 Evaluation and management of inpatient [facility] Start: 06-15-2024 End: 06-23-2024 [facility] Start: 06-15-2024 End: 06-15-2024 Evaluation and management of inpatient [facility] Start: 06-12-2024 End: 06-12-2024 Orders Only Nisha Bonilla RN [facility] Comment on above: Supraventricular tac hycardia of fetus affecting management of (Primary Dx); Polyhydramnios affecting Start: 06-12-2024 End: 06-23-2024 Evaluation and management of inpatient ESTEFANI GRADY [facility] Start: 06-11-2024 End: 06-28-2024 Evaluation and management of inpatient VANESA SEGOVIA [facility] Start: 06-11-2024 End: 06-11-2024 Office consultation new/estab patient 80 min Berto Suárez MD Work Phone: [facility] Comment on above: 27 weeks gestation o f (Primary Dx); Supraventricular tachycardia of fetus affecting management of ; Polyhydramnios affecting ; Excessive growth affecting management of in second trimester, single or unspecified fetus Start: 06-11-2024 End: 06-11-[address] SUÁREZ [facility] Start: 06-11-2024 End: 06-11-2024 Chart abstracting Scanning Provider External [facility] Start: 06-11-2024 End: 06-11-[address] [facility] Start: 06-10-2024 End: 06-10-2024 ambulatory RONALDAshley JAQUEZO Not Available Start: 06-10-2024 End: 06-10-2024 Office [...] End: 04-15-2024 Patient encounter procedure Chelsea Carson EMILY Work Phone: [facility] Work Phone: Start: 04-15-2024 End: 04-15-2024 Periodic preventive med est patient 18-39 yrs Chelsea Carson EMILY Work Phone: [facility] Comment on above: Well woman exam with routine gynecological exam; Second trimester ; Vaginal discharge; STD exposure; 19 weeks gestation of ; Screening, , for anatomic survey Start: 04-15-2024 End: 04-15-2024 Bamboo flowsheet Chelsea Carson EMILY Work Phone: [facility] Start: 04-15-2024 End: 04-20-2024 Bamboo flowsheet Chelsea Carson EMILY Work Phone: [facility] Start: 04-15-2024 End: 04-20-2024 Clinisync Result Encounter Chelsea Carson EMILY Work Phone: [facility] External Department Unsolicited Start: 04-15-2024 End: 04-17-2024 External Result Encounter Chelsea Carson EMILY Work Phone: [facility] External Department Unsolicited Start: 04-14-2024 End: 04-15-2024 Telephone encounter Chavez PINEDA Work Phone: [facility] Start: 04-04-2024 End: 04-04-2024 ambulatory [facility] Work Phone: Start: 04-04-2024 End: 04-04-2024 Patient encounter procedure [facility] Work Phone: Start: 03-16-2024 [...] 09-10-2023 End: 09-11-2023 Telephone encounter Chavez Troncoso TYPE PROOF REPRODUCER-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 RECRUITER Work Phone: [facility] Start: 11-23-2021 End: 11-23-2021 ambulatory Marianna Moralez Other [employer] Other Start: 11-23-2021 Office outpatient ne w [...] ALL CBC WITH AUTO DIFF Ronaldashley Fierro [place] Work Phone: Start: 02-14-2024 Antibody screen Scannin [...] DRUG SCREEN RAPI D (URINE) Ronald Sri [place] Work Phone: Start: 02-11-2024 ULTRASOUND OFFICE Not I n System Ref Prov Start: 02-11-2024 End: 02-11-2024 Urnls dip stick/tablet rgnt non-auto w/o micrscp Ronaldashley Fierro [place] Work Phone: Start: 05-28-2022 Adult depression scr eening assessment Chavez PINEDA Work Phone: Start: 12-15-2018 Microscopic observat ion [Identifier] in Cervix by Cyto stain Chavez PINEDA Work Phone: Plan of Treatment Date Care Activity Detail Author Start: 07-10-2034 DTaP,Tdap and Td Vaccines (8 - Td or Tdap) DTaP,Tdap and Td Vaccines (8 - Td or Tdap) [facility] Start: 04-15-2027 Screening for malignant neoplasm of cervix Pap Smear [facility] Start: 07-24-2025 Adult BMI Screening Adult BMI Screen ing [facility] Start: 07-24-2025 Tobacco Screening Tobacco Screening [facility] Start: 07-17-2025 Adult BMI Screening Adult BMI Screen ing [facility] Start: 07-17-2025 Tobacco Screening Tobacco Screening [facility] Start: 07-10-2025 Adult BMI Screening Adult BMI Screen ing [facility] Start: 07-10-2025 Tobacco Screening Tobacco Screening [facility] Start: 06-12-2025 End: 06-12-2025 US MFM with or without consult US MFM with or without consult Imaging Routine Supraventricular tachycardia of fetus affecting management of Polyhydramnios affecting Expected: 06/12/2025 (Approximate), Expires: 06/12/2025 [employer] Work Phone: Comment on above: Expected: 06/12/2025 (Approximate), Expires: 06/12/2025 Start: 06-11-2025 Adult BMI Screening Adult BMI Screen [facility] Start: 06-11-2025 Tobacco Screening Tobacco Screening [facility] Start: 11-02-2024 Influenza vaccination Influenz a Vaccine (Season Ended) [facility] Start: 08-12-2024 End: 08-12-2024 Patient encounter procedure 08/12/2024 3:40 PM EDT Routine [facility] [address] [place] [place] [address] Ronald Fierro DO [address] [facility] [place] [address] [facility] Start: 08-07-2024 End: 08-07-2024 Patient encounter procedure 08/07/2024 3:30 PM EDT Appointment [facility] US Imaging [address] [facility] [place] [phone] [facility] US Imaging Start: 08-04-2024 End: 08-04-2024 Patient encounter procedure 08/04/2024 9:00 AM EDT Routine Health Services - Women's Services [address] [place] [phone] Martha Staples MD [address] [place] [address], [address] [id number] [facility] Start: 07-29-2024 End: 07-29-2024 Patient encounter procedure 07/29/2024 2:50 PM EDT Routine [facility] [address] [place] [place] [phone] Chelsea Carson PA [address] [place] [address] [facility] Start: 07-28-2024 End: 07-28-2025 [...] encounter procedure 07/24/2024 9:45 AM EDT Routine [facility] [address] [place] [phone] Margoth Connor MD [address] [facility] [place] [phone] [facility] Start: 07-24-2024 End: 07-24-2024 Patient encounter procedure 07/24/2024 8:30 AM EDT Routine [facility] [address] [place] [phone] Margoth Connor MD [address] [facility] [place] [phone] [facility] Start: 07-17-2024 End: 07-17-[address] [facility] US Imaging Start: 07-15-2024 End: 07-15-2024 Patient encounter procedure [facility] Comment on above: Arrived Start: 07-10-2024 End: 07-10-2024 ambulatory 07/10/2024 10:00 AM EDT Initial [facility] [address] [place] [address] Ania Fenton MD [address] [facility], [place] [address] [facility] Start: 07-06-2024 End: 07-06-2024 ambulatory 07/06/2024 1:30 PM EDT Support Visit Maternal- Medicine at [facility] [address] [place] [address] Berto Suárez MD [address], [address] [place] [address] Holly Sheehan RN [address], [address] [place] [address] [place] [address] Migdalia Fernandez, KATE [address], [address] [place] [address] [place] [address] Maternal- Medicine at [facility] Start: 06-30-2024 End: 12-30-2024 US biophysical [...] AM EDT Routine [facility] [address] [place] [phone] Ronald Fierro, DO [address] [place], [place] [phone] Arrived [facility] Comment on above: Arrived Start: 06-24-2024 End: 06-24-2024 Patient encounter procedure 06/24/2024 2:50 PM EDT Routine [facility] [address] [place] [address] [place] [phone] Ronald Fierro, DO [address] [place] [address] [facility] Start: 06-12-2024 End: 06-12-2024 Patient encounter procedure 06/12/2024 9:40 AM EDT Office Visit [facility] - [facility] [address] [place] [address] Chavez Troncoso, TYPE PROOF REPRODUCER-SPORTS RECRUITER [address] [place] [address] [facility] Start: 05-11-2024 End: 05-11-2024 Patient encounter procedure 05/11/2024 3:40 PM EDT Routine [facility] [address] [place] [phone] Chelsea Carson PA [address] [place] [address] [facility] Start: 05-11-2024 End: 05-11-2024 Professional / ancillary services management 05/11/2024 2:30 PM EDT Ancillary Procedure [facility] [address] [place] [place] [phone] [facility] Start: 04-15-2024 End: 04-15-2024 Patient encounter procedure 04/15/2024 3:50 PM EST Routine [facility] [address] [place] [place] [address] Chelsea Carson PA [address] [place] [address] [facility] Start: 04-15-2024 End: 10-13-2024 Alpha fetoprotein, maternal Alpha fetoprotein, maternal Lab Routine Second trimester 19 weeks gestation of Expected: 04/15/2024 (Approximate), Expires: 10/13/2024 [facility] Comment on above: Expected: 04/15/2024 (Approximate), Expires: 10/13/2024 Start: 04-15-2024 End: 04-15-2025 US for US OB 14+ weeks anatomy scan Imaging Routine Screening, , for anatomic survey Expected: 04/15/2024, Expires: 04/15/2025 [facility] Comment on above: Expected: 04/15/2024 , Expires: 04/15/2025 Start: 03-16-2024 End: 03-16-2024 Patient encounter procedure 03/16/2024 3:50 PM EST Routine [facility] [address] [place] [place] [phone] Ronald Fierro DO [address] [place] [address] [facility] Start: 02-11-2024 End: 02-10-2025 ABO/Rh ABO/Rh Lab Routine Missed menses , unspecified gestational age Expected: 02/11/2024 (Approximate), Expires: 02/10/2025 [facility] Comment on above: Expected: 02/11/2024 (Approximate), Expires: 02/10/2025 Start: 02-11-2024 End: 02-10-2025 Blood type and Indirect antibody screen panel - Blood Type and screen Lab Routine Missed menses , unspecified gestational age Expected: 02/11/2024 (Approximate), Expires: 02/10/2025 [facility] Work Phone: Comment on above: Expected: 02/11/2024 (Approximate), Expires: 02/10/2025 Start: 02-11-2024 End: 02-10-2025 Drugs of abuse panel - Urine by Screen method Rapid drug screen, urine Lab Routine , unspecified gestational age Encounter for supervision of normal first in first trimester Expected: 02/11/2024 (Approximate), Expires: 02/10/2025 [facility] Comment on above: Expected: 02/11/2024 (Approximate), Expires: 02/10/2025 Start: 02-11-2024 End: 02-10-2025 US Pelvis transvaginal US OB transvaginal Imaging Routine Missed menses Expected: 02/11/2024 (Approximate), Expires: 02/10/2025 [facility] Comment on above: Expected: 02/11/2024 (Approximate), Expires: 02/10/2025 Start: 11-08-2023 End: 11-08-2023 Patient encounter procedure 11/08/2023 10:00 AM EDT Office Visit [facility] [address] [place] [address] Chavez Troncoso, TYPE PROOF REPRODUCER-SPORTS RECRUITER [address] [place] [address] [facility] Start: 05-29-2023 Adult BMI Screening Adult BMI Screen ing [facility] Start: 05-29-2023 Depression Screening Depression Scre ening [facility] Start: 05-29-2023 Tobacco Screening Tobacco Screening [facility] Start: 12-15-2021 Screening for malignant neoplasm of cervix Pap Smear [facility] Start: 11-22-2020 DTaP,Tdap and Td Vaccines (7 - Td or Tdap) DTaP,Tdap and Td Vaccines (7 - Td or Tdap) [facility] Start: 10-07-2015 Adult BMI Follow Up Plan Adult BMI Follow Up Plan [facility] Bacteria identified in Urine by Culture Urine culture Microbiology Routine Missed menses Ordered: 02/11/2024 [facility] Comment on above: Ordered: 02/11/2024 CBC W Auto Differential panel - Blood CBC and differential Lab Routine Missed menses , unspecified gestational age Ordered: 02/11/2024 [facility] Comment on above: Ordered: 02/11/2024 CHLAMYDIA TRACHOMATI S (GENITO/STI) CHLAMYDIA TRACHOMATIS (GENITO/STI) Lab Routine STD exposure Ordered: 04/15/2024 [facility] Comment on above: Ordered: 04/15/2024 Cytology Cervical or vaginal smear or scraping study Pap Smear Pathology and Cytology Routine Well woman exam with routine gynecological exam Ordered: 04/15/2024 [facility] Comment on above: Ordered: 04/15/2024 Hemoglobin A1c/Hemoglobin.total in Blood Hemoglobin A1c Lab Routine Missed menses , unspecified gestational age Ordered: 02/11/2024 [facility] Comment on above: Ordered: 02/11/2024 Hepatitis B virus surface Ag [Presence] in Serum or Plasma by Immunoassay Hepatitis B surface antigen Lab Routine Missed menses , unspecified gestational age Ordered: 02/11/2024 [facility] Comment on above: Ordered: 02/11/2024 Hepatitis C virus Ab [Presence] in Serum or Plasma by Immunoassay Hepatitis C antibody Lab Routine Missed menses , unspecified gestational age Ordered: 02/11/2024 [facility] Comment on above: Ordered: 02/11/2024 HIV-1/HIV-2 antigen/antibody combination immunoassay HIV-1 and HIV-2 antibodies Lab Routine Missed menses , unspecified gestational age Ordered: 02/11/2024 [facility] Comment on above: Ordered: 02/11/2024 Neisseria gonorrhoea e DNA [Presence] in Unspecified specimen by RASHEED with probe detection Neisseria gonorrhea DNA probe, direct Lab Routine STD exposure Ordered: 04/15/2024 [facility] Comment on above: Ordered: 04/15/2024 Reagin Ab [Presence] in Serum by RPR RPR Lab Routine Missed menses , unspecified gestational age Ordered: 02/11/2024 [facility] Comment on above: Ordered: 02/11/2024 Rubella antibody, IgG Rubella an tibody, IgG Lab Routine Missed menses , unspecified gestational age Ordered: 02/11/2024 [facility] Comment on above: Ordered: 02/11/2024 SURESWAB(R) ADVANCED VAGINITIS PLUS, TMA SURESWAB(R) ADVANCED VAGINITIS PLUS, TMA Pathology and Cytology Routine Vaginal discharge Ordered: 04/15/2024 [facility] Work Phone: Comment on above: Ordered: 04/15/2024 Immunizations Immunization Date Immunization Notes Care Provider Fa cili 07-10-2024 tetanus toxoid, redu john diphtheria toxoid, and acellular pertussis vaccine, adsorbed Ania Fenton MD Work Phone: [facility] 07-10-2024 Immunization, In Cli mayco,; Translations: [Drug or medicament (substance)] Ania Fenton MD Work Phone: [facility] Work Phone: 01-10-2021 Influenza, injectabl e, Madin Kathryn Canine Kidney, preservative free, [facility]F [facility] Work Phone: [facility] 01-10-2021 influenza virus vacc ine, unspecified formulation Ronaldashley Fierro Work Phone: [facility] 11-22-2015 meningococcal oligosaccharide (groups A, C, Y and W-135) diphtheria toxoid conjugate vaccine (MCV4O) Chavez Troncoso TYPE PROOF REPRODUCER-SPORTS RECRUITER Work Phone: [facility] 11-22-2010 tetanus toxoid, redu john diphtheria toxoid, and acellular pertussis vaccine, adsorbed Chavez Karyna TYPE PROOF REPRODUCER-SPORTS RECRUITER Work Phone: [facility] 10-20-2003 DTaP-hepatitis B and poliovirus vaccine Chavez Troncoso TYPE PROOF REPRODUCER-SPORTS RECRUITER Work Phone: [facility] 10-20-2003 measles, mumps and rubella virus vaccine Chavez Karyna TYPE PROOF REPRODUCER-SPORTS RECRUITER Work Phone: [facility] 10-24-1998 diphtheria, tetanus toxoids and acellular pertussis vaccine, unspecified formulation Chavez Troncoso TYPE PROOF REPRODUCER-SPORTS RECRUITER Work Phone: [facility] 10-24-1998 haemophilus influenz ae type b vaccine, conjugate unspecified formulation Chavez Troncoso TYPE PROOF REPRODUCER-SPORTS RECRUITER Work Phone: [facility] 10-24-1998 measles, mumps and rubella virus vaccine Chavez Karyna TYPE PROOF REPRODUCER-SPORTS RECRUITER Work Phone: [facility] 06-08-1998 diphtheria, tetanus toxoids and acellular pertussis vaccine, unspecified formulation Chavez Karyna TYPE PROOF REPRODUCER-SPORTS RECRUITER Work Phone: [facility] 06-08-1998 haemophilus influenz ae type b vaccine, conjugate unspecified formulation Chavez Karyna TYPE PROOF REPRODUCER-SPORTS RECRUITER Work Phone: [facility] 06-08-1998 poliovirus vaccine, unspecified formulation Chavez Karyna TYPE PROOF REPRODUCER-SPORTS RECRUITER Work Phone: [facility] 04-01-1998 diphtheria, tetanus toxoids and acellular pertussis vaccine, unspecified formulation Chavez Karyna TYPE PROOF REPRODUCER-SPORTS RECRUITER Work Phone: [facility] 04-01-1998 haemophilus influenz ae type b vaccine, conjugate unspecified formulation Chavez Karyna TYPE PROOF REPRODUCER-SPORTS RECRUITER Work Phone: [facility] 04-01-1998 hepatitis B vaccine, pediatric or pediatric/adolescent dosage Chavez Karyna TYPE PROOF REPRODUCER-SPORTS RECRUITER Work Phone: [facility] 04-01-1998 poliovirus vaccine, unspecified formulation Chavez Karyna TYPE PROOF REPRODUCER-SPORTS RECRUITER Work Phone: [facility] 01-12-1998 diphtheria, tetanus toxoids and acellular pertussis vaccine, unspecified formulation Chavez Karyna TYPE PROOF REPRODUCER-SPORTS RECRUITER Work Phone: [facility] 01-12-1998 haemophilus influenz ae type b vaccine, conjugate unspecified formulation Chavez Karyna TYPE PROOF REPRODUCER-SPORTS RECRUITER Work Phone: [facility] 01-12-1998 poliovirus vaccine, unspecified formulation Chavez Troncoso TYPE PROOF REPRODUCER-SPORTS RECRUITER Work Phone: [facility] 1997 hepatitis B vaccine, pediatric or pediatric/adolescent dosage Chavez Troncoso TYPE PROOF REPRODUCER-SPORTS RECRUITER Work Phone: [facility] 1997 hepatitis B vaccine, pediatric or pediatric/adolescent dosage Chavez Troncoso TYPE PROOF REPRODUCER-SPORTS RECRUITER Work Phone: [facility] Payers Date Payer Category Payer Medicaid [facility] Member Subscriber Plan / Payer (Effective 2024-Present) Name: Nisha Mtz Relation to Subscriber: Self Name: Nisha Mtz Payer ID: [id number] (NAIC) Group ID: [id number] Type: Not on file Address: [place] [id number] [facility] Insurance [facility] MEDICA[facility] [id number] 2024 Medicaid MEDICAID [facility] [id number] 2024 Medicaid [id number] 2017 [employer] [place] Shiyony ld Managed Care - O ANTHEM [id number] 2017 Unknown KWASI LACKEY (PPO) [id number] 2017-Present [phone] [address] [place] [address] [id number]. [id number] 1997 Unknown [id number] 2.16.840.1.566770.3.579.2. 593 1997 Unknown [id number] 2.16.840.1.814679.3.579.2. 1286 1997 Unknown [id number] 2.16.840.1.861318.3.579.2. 1259 1997 Unknown [id number] 2.16.840.1.658777.3.579.2. 1259 1997 Unknown [id number] 2.16840.1.046516.3.579.2. 1259 1997 Unknown [id number] 2.16840.1.096611.3.579.2. 9 1997 Unknown [id number] 2.16.840.1.286713.3.579.2. 125 1997 Unknown [id number] 2.16840.1.349126.3.579.2. 125 1997 Unknown [id number] 2.16840.1.260127.3.579.2. 125 1997 Unknown [id number] 2.16840.1.669402.3.579.2. 1258 1997 Unknown [id number] 2.840.1.735345.3.579.2. 1258 1997 Unknown [id number] 2.840.1.471883.3.579.2. 128 1997 Unknown [id number] 2.840.1.614530.3.579.2. 128 1997 Unknown [id number] 2.840.1.978151.3.579.2. 128 1997 Unknown [id number] 2.840.1.053729.3.579.2. 128 1997 Unknown [id number] 2.840.1.538696.3.579.2. 128 1997 Unknown [id number] 2.840.1.241762.3.579.2. 128 1997 Unknown [id number] 2.840.1.464784.3.579.2. 128 1997 Unknown [id number] 2.16840.1.279871.3.579.2. 1286 1997 Unknown [id number] 2.16840.1.540364.3.579.2. 128 1997 Unknown [id number] 2.16840.1.064778.3.579.2. 128 1997 Unknown [id number] 2.16840.1.612415.3.579.2. 128 1997 Unknown [id number] 2.16840.1.018739.3.579.2. 128 1997 Unknown [id number] 2.16840.1.835610.3.579.2. 128 1997 Unknown [id number] 2.16840.1.656669.3.579.2. 128 1997 Unknown [id number] 2.840.1.126354.3.579.2. 128 1997 Unknown [id number] 2.840.1.368018.3.579.2. 1285 1997 Unknown [id number] 2.0.1.906636.3.579.2. 128 1997 Unknown [id number] 2.0.1.516386.3.579.2. 128 1997 Unknown [id number] 2.840.1.445631.3.579.2. 128 1997 Unknown [id number] 2.840.1.292533.3.579.2. 128 1997 Unknown [id number] 2.840.1.184922.3.579.2. 128 1997 Unknown [id number] 2.16840.1.783848.3.579.2. 128 1997 Unknown [id number] 2.840.1.142014.3.579.2. 128 1997 Unknown [id number] 2.16840.1.902658.3.579.2. 128 1997 Unknown [id number] 2.840.1.198747.3.579.2. 1286 1959 Unknown [id number] Social History Date Type Detail Facility Start: 05-28-2022 End: 07-24-2024 Sex Assigned At [facility] [employer] Other Tobacco smoking stat us NHIS Tobacco smoking consumption unknown [facility] Start: 12-13-2023 [facility] Start: 1995 Sex assigned at Not on file [facility] Start: 05-28-2022 End: 04-04-2024 Tobacco smoking status NHIS Never smoked tobacco (finding) [facility] Start: 10-07-2014 End: 04-04-2024 Sex Female (finding) [facility] Start: 1995 Sex Assigned At Female [facility] Start: 05-28-2022 Tobacco use and exposure Smokeless tobacco non-user [facility] Start: 05-28-2022 End: 07-24-2024 Alcoholic beverage intake Ex-drinker (finding) [facility] Start: 05-28-2022 End: 07-24-2024 History of Social function [facility] Adolescent depressio n screening assessment 0 [facility] Medical Equipment Procedure Code Equipment Code Equipment Origin al Text Equipment Identifier Dates Start: 06-26-2024 End: 07-06-2024 Functional Status Date Assessment Result Facility [facility] [employer] [facility] Clinical Notes 11-23-2021 to 07-29-2024 EMILY Villalobos [...] of: EMILY Villalobos documented in this encounter [facility] 07-21-2024 Miscellaneous Notes Called pt [...] any diabetic medications. documented in this encounter [facility] 07-21-2024 Telephone encounter Note Called pt and [...] is currently not on any diabetic medications. [facility] 07-17-2024 History of Presen t illness Narrative [...] Disp: 200 strip, Rfl: 0 blood-glucose meter [facility], Please check blood glucose fasting and 1 [...] the morning., Disp: 150 tablet, Rfl: 3 [id number] acid ( 19) 29 mg iron- 1 [...] more likely to fail compared to insulin. terminal system operator data on children whose mothers took oral [...] Insulin teaching was provided -delivery recommended at [facility] -delivery recommended at 37 weeks -the patient desires to have hybrid follow-up with her primary OB and the [facility] as she is struggling to be coming to [place] for routine visits due to geographic distance [...] Berto Suárez MD, FACOG (she/hers) Maternal- Medicine [facility] [address] [facility] [address] [place] [address] This document was created with [employer] technology. Though I make every effort to review the dictation as it is transcribed, on occasion the spoken word can be misinterpreted by the technology leading to inappropriate words, phrases, or sentences. This note is addressed to the requesting provider as a consultation for clinical guidance. Specific medical abbreviations are occasionally used and those are generally approved by the [place]?Board of?Obstetrics and?Gynecology?as well as?Dylan s abbreviations. The above plan of care was based solely on the diagnoses for which a consultation was requested. ?More frequent testing may be indicated based on her other medical/obstetrical conditions. The management of other or medical conditions is beyond the scope of requested consultation and will continue to be followed by the primary pallet assembler or primary care provider. Note to patient: [...] of the practitioner. documented in this encounter [facility] 07-15-2024 History of Presen t illness Narrative [...] nursing note reviewed. Exam conducted with a solution strategist present. Vitals: There is no height or [...] Rosalba Baer NP documented in this encounter [facility] 07-10-2024 History of Presen t illness Narrative Pt here for initial HROB [id number] Denies lof vb ctx Confirms +fm No concerns today HR 86 [facility] Initial High Risk [...] mouth in the morning. 150 tablet 3 [id number] acid ( 19) 29 mg iron- 1 [...] vaginal delivery testing: Saturday/ NST/ DVP at [facility] Reviewed labor warnings and kick counts Problem List Excessive growth affecting management of mother in second trimester, antepartum Intrauterine Overview First trimester Cell free DNA: low risk per patient Carrier screening 28 week labs CBC, HIV, Syphilis completed: yes Rh status: positive Third trimester Tdap: will do with regular OBGYN GBS at 36 weeks Mode of delivery: testing: Saturday/ NST/ DVP at [facility] Polyhydramnios affecting Supraventricular tachycardia of fetus affecting [...] the hospital that she would deliver at [facility]. Advised patient to review with MFM as she prefers to continue her care with her primary obgyn and delivery hospital. Reviewed that the recommendation to deliver at [facility] would warrant care with our office and that after she would return to her primary obgyn except for the potential wound check or bp check. Ania Fenton MD MPH 07/13/2024 7:08 AM documented in this encounter [facility] 07-06-2024 History of Presen t illness Narrative CGM report reviewed. No medication needed at this time. KELLI Fernandes 07/06/24 1617 documented in this encounter [facility] 07-06-2024 Group counseling note Patient: Nisha Mtz [...] Face to [facility] was 100 minutes[facility] 07-06-[facility]24 Miscellaneous Notes Patient: Nisha [...] was 100 minutes. documented in this encounter [facility] 06-30-2024 History of Presen t illness Narrative [...] nursing note reviewed. Exam conducted with a solution strategist present. Vitals: There is no height or [...] a day. Pt to be delivered at [facility] Orders Placed This Encounter Procedures US biophysical profile w non stress test POCT urinalysis dipstick manually resulted Follow Up: Patient is to return to office in 2 week for routine OB appointment. Documented by aHyley Oneill LPN on behalf of: Ronald Fierro DO documented in this encounter [facility] 06-29-2024 History of Presen t illness Narrative Spoke with Dr. Fierro's office pertaining to follow up appointments for patient. Per Dr. Suárez's note 06/25/24, patient is to receive 2x weekly NSTs with 1x weekly DVP to evaluate heart rhythm. She is scheduled to be seen at [facility] 07/17/24 at which time she will receive a growth ultrasound and assess heart function. She will also need an EKG, this day, which has already been ordered by Dr. Geronimo Shay, peds Dictaphone Typist. documented in this encounter [facility] 06-29-2024 Miscellaneous Notes Recvd pt phone call. Pt declined class due to time away from work with recent admit, offered video visit and declined also due to time time away from work, stressed importance of diabetic ed, encouraged to contact OB and will forward to the diabetic team and OB. documented in this encounter [facility] 06-29-2024 Telephone encounter Note Recvd pt phone call. Pt declined class due to time away from work with recent admit, offered video visit and declined also due to time time away from work, stressed importance of diabetic ed, encouraged to contact OB and will forward to the diabetic team and OB. [facility] 06-26-2024 History of Presen t illness Narrative Applied sample Freestyle Madhavi 3 = sensor per Dr Velasquez request. Assisted Dickerson with downloading Freestyle Madhavi 3 nasrin on phone. Inserted sensor into left posterior upper arm without difficulty. Sensor started with nasrin. Discussed sensor care and logging events in nasrin. Instructed to check fingerstick BG if low alarm alerts her. Reset alarms and assisted with connecting to [facility] clinic practice. Verbalized understanding. Face to face time 20 minutes. Instructed patient on use of truemetrix glucometer and how to check blood sugars. Blood glucose log provided and instructed to check fasting and 1 hour after meals if Madhavi fails. Patient verbalized understanding. documented in this encounter [facility] 06-22-2024 Miscellaneous Notes Contract: [facility] OB resident with a question about changing medications. Secure chat sent to Dr. Browning documented in this encounter [facility] 06-22-2024 Telephone encounter Note Contract: [facility] OB resident with a question about changing medications. Secure chat sent to Dr. Browning [facility] 06-21-2024 Miscellaneous Notes Contract: [facility] calling for patient update. Room [facility] in labor and delivery. Sent secure chat to Dr Robin Browning. documented in this encounter [facility] 06-21-2024 Telephone encounter Note Contract: [facility] calling for patient update. Room [facility] in labor and delivery. Sent secure chat to Dr Robin Browning. [facility] 06-11-2024 History of Presen t illness Narrative [...] No Have you been seen here at [facility] in a previous ? No Recent ER visits or hospitalizations? No Bring blood sugar log or meter with you today? (Please bring them with you for every visit at [facility]) NA Flu vaccine (Jan-May)? NA Any concerns that you would like me to mention to the provider today? No [facility] Consult Note Reason For Consult: add on for SVT HPI: Nisah Mtz is a 28 y.o. at 27w6d [...] range has not been established by the electrical logging operator of this kit. The [place] [employer] Pediatrics recommends a Vitamin D [...] pediatric cardiology consult Dr. Shay notified - M to continue to follow patient - Ensure [...] Berto Suárez MD, FACOG (she/hers) Maternal- Medicine [facility] [address] [place] [address] This document was created with [employer] technology. Though I make every effort to review the dictation as it is transcribed, on occasion the spoken word can be misinterpreted by the technology leading to inappropriate words, phrases, or sentences. This note is addressed to the requesting provider as a consultation for clinical guidance. Specific medical abbreviations are occasionally used and those are generally approved by the [place]?Board of?Obstetrics and?Gynecology?as well as?Dylan hernandez abbreviations. The above plan of care was based solely on the diagnoses for which a consultation was requested. ?More frequent testing may be indicated based on her other medical/obstetrical conditions. The management of other or medical conditions is beyond the scope of requested consultation and will continue to be followed by the primary pallet assembler or primary care provider. Note to patient: [...] of the practitioner. documented in this encounter [facility] 06-10-2024 History of Presen t illness Narrative [...] nursing note reviewed. Exam conducted with a solution strategist present. Vitals: There is no height or [...] Ronald Fierro DO documented in this encounter [facility] 04-15-2024 History of Presen t [...] nursing note reviewed. Exam conducted with a solution strategist present. Vitals: There is no height or [...] obtained without difficulty and patient was given [facility] order to have obtained. Orders Placed This Encounter Procedures US OB 14+ weeks anatomy scan CHLAMYDIA TRACHOMATIS (GENITO/STI) Neisseria gonorrhea DNA probe, direct Alpha fetoprotein, maternal POCT urinalysis dipstick manually resulted Follow Up: Patient is to return to our office in 4 weeks for routine OB appointment Documented by Monse Arias LPN on behalf of: EMILY Villalobos documented in this encounter [facility] 04-14-2024 Miscellaneous Notes set up establish care with provider of choice LM on VM documented in this encounter [facility] 04-14-2024 Telephone encounter Note set up establish care with provider of choice [facility] 04-14-2024 Telephone encounter Note LM on VM [facility] 04-04-2024 Evaluation note Diagnosis Onset Date Resolution Influenza A acute April 04, 2024 10:32am [facility] Work Phone: [phone] 310-260001-13-2025 History of Present illness Narrative* Ijeoma Carrera [...] or undercooked meat, and [facility]. Patient has been consulted regarding any further do's and don'tsof . Patient voiced understanding and all questions and concerns were answered. Follow Up: Patient is to return in 4 weeks for routine OB appointment. Documented by Ijeoma Carrera LPN on behalf of: Ronald Fierro DO [facility] [id number] History of Present illness Narrative* Annie Keith [...] or undercooked meat, and [facility]. Patient has also been advised to not [...] by: Annie Keith MA [facility] [id number] Miscellaneous Notes* Telephone Encounter - Lupe Stacy - 09/10/2023 10:02 AM EDT Reschedule 10/31 appt * Telephone Encounter - Lup[facility]wey Nixisreal - 09/10/2023 10:02 AM EDT LM on VM * Telephone Encounter - [facility] Dinahisreal - 09/10/2023 10:02 AM EDT Rescheduled [facility] Note* Telephone Encounter - Lupe Stacy - 09/10/2023 10:02 AM EDT Reschedule 10/31 appt [facility]-09-2024 Telephone encounter Note* Telephone Encounter - Lupedewey Stacy - 09/10/2023 10:02 AM EDT LM on VM [facility]07-09-2024 Telephone encounter Note* Telephone Encounter - Lupedewey Stacy - 09/10/2023 10:02 AM EDT Rescheduled [facility] [employer] [id number] Evaluation note* Encounter Date Diagnosis Assessment Notes [...] POSITIVE education handout discharge instructions. given. T Yohobuy Other Evaluation note* Diagnosis Missed menses , unspecified gestational age Encounter for supervision of normal first in first trimester 10 weeks gestation of documented in this encounter [facility] HealthcareEvaluation note* Diagnosis Second trimester state, incidental 15 weeks gestation of documented in this encounter [facility] HealthcareEvaluation note* Diagnosis Well woman exam with routine gynecological exam Routine gynecological examination Second trimester state, incidental Vaginal discharge Leukorrhea, not specified as infective STD exposure 19 weeks gestation of Screening, , for anatomic survey Encounter for anatomic survey documented in this encounter [facility] [employer] NetworkEvaluation note* Diagnosis Second trimester state, incidental 27 weeks gestation of tachycardia affecting management of mother Abnormality in heart rate/rhythm, unspecified as to episode of care or not applicable documented in this encounter [facility] HealthcareEvaluation note* Diagnosis 27 weeks gestation of - Primary Supraventricular tachycardia of fetus affecting management of Polyhydramnios affecting Excessive growth affecting management of in second trimester, single or unspecified fetus documented in this encounter [facility] SystemEvaluation note* Diagnosis Supraventricular tachycardia of fetus affecting management of - Primary Polyhydramnios affecting documented in this encounter [facility] SystemEvaluation note* Diagnosis Diet controlled gestational diabetes mellitus (GDM) in third trimester- Primary documented in this encounter [facility] SystemEvaluation note* Diagnosis Diet controlled gestational diabetes mellitus (GDM) in third trimester- Primary documented in this encounter [facility] SystemEvaluation note* Diagnosis Third trimester state, incidental 30 weeks gestation of Supraventricular tachycardia of fetus affecting management of Polyhydramnios affecting Excessive growth affecting management of in third trimester, single or unspecified fetus documented in this encounter [facility]* Diagnosis Diet controlled gestational diabetes mellitus (GDM) in third trimester [facility] Diagnosis Polyhydramnios affecting [O40.9XX0]- Primary documented in this encounter [facility] note* Diagnosis Diet controlled gestational diabetes mellitus (GDM) in third trimester documented in this encounter [facility] note* Diagnosis Supraventricular tachycardia of fetus affecting management of - Primary Intrauterine Excessive growth affecting management of in second trimester, single or unspecified fetus Polyhydramnios affecting documented in this encounter [facility] note* Diagnosis Third trimester state, incidental 32 weeks gestation of documented in this encounter [facility]* Diagnosis 33 weeks gestation of - Primary Gestational diabetes mellitus (GDM) in third trimester, gestational diabetes method of control unspecified Supraventricular tachycardia of fetus affecting management of Excessive growth affecting management of in second trimester, single or unspecified fetus [facility]* Diagnosis Gestational diabetes mellitus (GDM) in third trimester, gestational diabetes method of control unspecified- Primary Supraventricular tachycardia of fetus affecting management of Excessive growth affecting management of in second trimester, single or unspecified fetus Polyhydramnios affecting documented in this encounter [facility] note* Diagnosis Third trimester state, incidental 34 weeks gestation of documented in this encounter [facility] HealthcareInstructionsNot on filedocumented in this encounterProMedica Health SystemInstructionsNot on filedocumented in this encounterProMedica Health SystemInstructionsNot on filedocumented in this encounterProMedica Health SystemInstructionsNot on filedocumented in this encounterProMedica Health System Instructions* Attachments The following attachments cannot be sent through Care Everywhere. * Preeclampsia (Lithuanian) documented in this encounterProMedica Health SystemInstructionsNot on file documented in this encounterProMedica Health SystemInstructionsNot on file documented in this encounterProMedica Health SystemInstructionsNot on file documented in this encounterProMedica Health SystemInstructionsNot on file documented in this encounterProBro[facility] Health SystemInstructionsNot on file documented in this encounterProBrookwood [facility] Health SystemInstructionsNot on file documented in this encounterProBrookwood [facility] Health SystemInstructionsNot on file documented in this encounterProBrookwood [facility] Health SystemInstructionsNot on file documented in this encounterProMercy Health [facility] SystemInstructionsNot on file documented in this encounterProMercy Health [facility] SystemInstructions* Attachments The following attachments cannot be sent through Care Everywhere. * Your baby's movement before (Lithuanian) documented in this encounterProBro[facility] Health SystemInstructionsNot on file documented in this encounterProBro[facility] [employer] SystemInstructionsNot on file documented in this encounterProMercy Health [facility] System Summary Purpose Family History No [...] and content) DATE CREATED AUTHOR 12/08/2020 [facility] DATE CREATED AUTHOR AUTHOR'S ORGANIZ ATION 07/19/2024 [facility] DATE CREATED AUTHOR AUTHOR'S ORGANIZ ATION 08/01/2024 [facility] DATE CREATED AUTHOR AUTHOR'S ORGANIZ ATION 08/06/2024 [facility] REASON FOR VISIT (unrecogniz ed section [...] third trimester Berto Suárez MD [address] [facility], [address] [place] [address] Phone: tel: fax: Maternal- Medicine at [facility] [address] [place] [address] Phone: tel: fax: Referral ID Status Reason Start Date Expiration Date Visits Requested Visits Authorized [id number] Pending Review Specialty Services Required 06/26/2024 06/26/2025 1 1 Reason Comments Initial Visit Reason Comments Polyhydraminos arrythmia GDM Care Teams (unrecognized sec tion and content) Dog Daycare Provider Relationship Specialty Start Date End Date Terrence Ventura MD [address] [place] [address] PCP - General Family Medicine 02/11/24 Dog Daycare Provider Relationship Specialty Start Date End Date Terrence Ventura MD [address] [place] [address] PCP - General Family Medicine 02/11/24 Dog Daycare Provider Relationship Specialty Start Date End Date Terrence Ventuar MD [address], [place] [address] PCP - General Family Medicine 02/11/24 Dog Daycare Provider Relationship Specialty Start Date End Date Terrence Ventura MD [address], [place] [address] PCP - General Family Medicine 02/11/24 Team Status: Active Member Role Status Dates Terrence Ventura DO Primary Care Provider Active Team Status: Inactive Member Role Status Dates Terrence Ventura DO Primary Care Provider Active Start: April 04, 2024 End: April 04, 2024 Michell eGrman APRN Attending Provider Active Start: April 04, 2024 End: April 04, 2024 Dog Daycare Provider Relationship Specialty Start Date End Date Chavez Troncoso APRN-SPORTS RECRUITER [address] [place] [address] PCP - General Internal Medicine 09/03/23 Dog Daycare Provider Relationship Specialty Start Date End Date Terrence Ventura MD [address] [place] [address] PCP - General Family Medicine 02/11/24 Dog Daycare Provider Relationship Specialty Start Date End Date Chavez Troncoso, TYPE PROOF REPRODUCER-SPORTS RECRUITER [address] [place] [address] PCP - General Internal Medicine 09/03/23 Dog Daycare Provider Relationship Specialty Start Date End Date Terrence Ventura MD PCP - General Family Medicine 02/11/24 Dog Daycare Provider Relationship Specialty Start Date End Date Terrence Ventura MD PCP - General Family Medicine 02/11/24 Dog Daycare Provider Relationship Specialty Start Date End Date Terrence Ventura MD PCP - General Family Medicine 02/11/24 Dog Daycare Provider Relationship Specialty Start Date End Date Chavez Troncoso, TYPE PROOF REPRODUCER-SPORTS RECRUITER [address] [place] [address] PCP - General Internal Medicine 09/03/23 Dog Daycare Provider Relationship Specialty Start Date End Date Chavez Troncoso, TYPE PROOF REPRODUCER-SPORTS RECRUITER [address] [place] [address] PCP - General Internal Medicine 09/03/23 Dog Daycare Provider Relationship Specialty Start Date End Date Chavez Troncoso TYPE PROOF REPRODUCER-SPORTS RECRUITER [address] [place] [address] PCP - General Internal Medicine 09/03/23 Dog Daycare Provider Relationship Specialty Start Date End Date Chavez Troncoso TYPE PROOF REPRODUCER-SPORTS RECRUITER [address] [place] [address] PCP - General Internal Medicine 09/03/23 Dog Daycare Provider Relationship Specialty Start Date End Date Chavez Troncoso TYPE PROOF REPRODUCERSPORTS RECRUITER [address] [place] [address] PCP - General Internal Medicine 09/03/23 Dog Daycare Provider Relationship Specialty Start Date End Date Chavez Troncoso TYPE PROOF REPRODUCER-SPORTS RECRUITER [address] [place] [address] PCP - General Internal Medicine 09/03/23 Dog Daycare Provider Relationship Specialty Start Date End Date Chavez Troncoso TYPE PROOF REPRODUCER-SPORTS RECRUITER [address] [place] [address] PCP - General Internal Medicine 09/03/23 Dog Daycare Provider Relationship Specialty Start Date End Date Chavez Troncoso TYPE PROOF REPRODUCER-SPORTS RECRUITER [address] [place] [address] PCP - General Internal Medicine 09/03/23 Dog Daycare Provider Relationship Specialty Start Date End Date Terrence Ventura MD PCP - General Family Medicine 02/11/24 Dog Daycare Provider Relationship Specialty Start Date End Date Terrence Ventura MD PCP - General Family Medicine 02/11/24 Dog Daycare Provider Relationship Specialty Start Date End Date Chavez Troncoso TYPE PROOF REPRODUCER-SPORTS RECRUITER [address] [place] [address] PCP - General Internal Medicine 09/03/23 Dog Daycare Provider Relationship Specialty Start Date End Date Chavez Troncoso TYPE PROOF REPRODUCER-SPORTS RECRUITER [address] [place] [address] PCP - General Internal Medicine 09/03/23 Dog Daycare Provider Relationship Specialty Start Date End Date Chavez Troncoso TYPE PROOF REPRODUCER-SPORTS RECRUITER [address] [place] [address] PCP - General Internal Medicine 09/03/23 Dog Daycare Provider Relationship Specialty Start Date End Date Terrence Ventura MD PCP - General Family Medicine 02/11/24 Dog Daycare Provider Relationship Specialty Start Date End Date Terrence Ventura MD PCP - General Family Medicine 02/11/24 Dog Daycare Provider Relationship Specialty Start Date End Date Chavez Troncoso, TYPE PROOF REPRODUCER-SPORTS RECRUITER [address] [place] [address] PCP - General Internal Medicine 09/03/23 Dog Daycare Provider Relationship Specialty Start Date End Date Chavez Troncoso, TYPE PROOF REPRODUCER-SPORTS RECRUITER [address] [place] [address] PCP - General Internal Medicine 09/03/23 Dog Daycare Provider Relationship Specialty Start Date End Date Ann Marie Troncosodonnie Lares, TYPE PROOF REPRODUCER-SPORTS RECRUITER [address] [place] [address] PCP - General Internal Medicine 09/03/23 Dog Daycare Provider Relationship Specialty Start Date End Date Terrence Ventura MD PCP - General Family Medicine 02/11/24 Dog Daycare Provider Relationship Specialty Start Date End Date Terrence Ventura MD [address] [place] [address] PCP - General Family Medicine 02/11/24 Dog Daycare Provider Relationship Specialty Start Date End Date Terrence Ventura MD [address] [place] [place] [address] PCP - General Family Medicine 02/11/24 Goals [...] BE BASED ON THE PRIMARY CLINICAL RECORDS. [facility]. provides no warranty or guarantee of the accuracy or completeness of information in this document.
[2024-08-06 19:51] VITALS: BP 116/56; PULSE 79
[2024-08-06 19:56] VITALS: TEMP 36.9
== END 2024-08-06 20:25 | disposition home or self-care (01) ==
LOC: US 19:09 → FBC 19:12
PROVIDERS: PCP Family Medicine; Visit Provider Obstetrics & Gynecology
DX: O26.893 Other specified pregnancy related conditions, third trimester (principal); Z3A.35 35 weeks gestation of pregnancy
CPT/HCPCS: 76818

== ENCOUNTER 2024-08-10 18:04 | Outpatient (OUT) | payer OTHER, SELFPAY ==
[2024-08-10 18:10] VITALS: BP 114/55; PULSE 82
== END 2024-08-10 18:33 | disposition home or self-care (01) ==
LOC: FBCO 18:04 → FBC 18:05
PROVIDERS: PCP Family Medicine; Visit Provider Obstetrics & Gynecology
DX: O26.893 Other specified pregnancy related conditions, third trimester (principal); Z3A.36 36 weeks gestation of pregnancy
CPT/HCPCS: 59025

== ENCOUNTER 2024-08-13 19:14 | Outpatient (OUT) | payer OTHER, SELFPAY ==
--- OUTSIDE RECORDS SUMMARY | 2024-08-04 09:00 | XMS_ITS | Encounter Summary ---
Author Organization [employer] s tem Address [facility] [place], [id number] [address] [place] [address] Care Team Providers Care Live Study Manager Name Role Phone Sarah Queen PAINTER [employer] Primary Care Provider + Reason for Visit * Reason Comments Routine Visit Encounter Details Date Type Department Care Team (Late st Contact Info) Description 08/04/2024 9:00 AM EDT Routine [facility] - Women's Services [address] [place] [phone] Shira Staples MD [address] [place] [address], [address] [phone] [place]: 35w4d Social History Tobacco Use Types Packs/Day Years [...] got money to buy more. Never True 08/04/2024 Within the past 12 months th e food we bought just didn't last and we didn't have money to get more. Never True 08/04/2024 Estimated Date of Delivery Comme nts Yes 09/04/2024 Based on Ultraso und Sex and Gender Information Value Date Recorded Sex Assigned at Not on file Legal Sex Female 11:54 AM EDT Gender Identity Not on file Sexual Orientation Not on file documented as of this encounter Last Filed Vital Signs Vital Sign Reading Time Taken Comments Blood Pressure 108/72 08/04/2024 8:49 AM EDT Pulse - - Temperature - - Respiratory Rate - - Oxygen Saturation - - Inhaled Oxygen Concentration - - Weight 90.6 kg (199 lb 11.2 oz) 08/04/2024 8:49 AM EDT Height - - Body Mass Index 35.38 07/17/2024 1:48 PM EDT documented in this encounter Progress Notes * Haley Tucker, DO - 08/04/2024 9:00 AM EDT [facility] High Risk Obstetrics Visit Return OB CC: Scheduled OB Visit Veda Mtz is a 28 y.o. female at 35w4d (Estimated Date of Delivery: 09/04/24) who presents for routine HROB visit. None Problem List Excessive growth affecting management of mother in second trimester, antepartum Intrauterine Overview First trimester Cell free DNA: low risk per patient Carrier screening 28 week labs CBC, HIV, Syphilis completed: yes Rh status: positive Third trimester Tdap: will do with regular OBGYN GBS at 36 weeks Mode of delivery: testing: Saturday/ NST/ [facility]VP at [place] Relevant Orders Strep B screen Gestational diabetes mellitus (GDM) in third trimester Supraventricular tachycardia of fetus affecting management of - Primary Overview S/p hospital admission end of June Continue sotalol and digoxin MFM appointment July 17 with growth US Rec'd ANCS 06/16, 06/17/24 Reports good FM. Denies Bleeding, SROM, contractions. Reports fasting BS 85-87, postprandial 110-120s. Not on medication d/t declining initially. Problem List reviewed and updated PMH/PSH/FH/Soc/Meds/Allergies Reviewed PE BP 108/72 Wt 90.6 kg (199 lb 11.2 oz) LMP 12/07/2023 BMI 35.38 kg/m?? Alert, NAD ABdomen: Soft, NT, nondistended FHTs 135 Wt Readings from Last 3 Encounters: 08/04/24 90.6 kg (199 lb 11.2 oz) 07/24/24 90 kg (198 lb 6.4 oz) 07/17/24 89.5 kg (197 lb 5 oz) See flowsheet Imp/Plan at 35w4d Patient Active Problem List Diagnosis Intrauterine Supraventricular tachycardia of fetus affecting management of Excessive growth affecting management of mother in second trimester, antepartum Gestational diabetes mellitus (GDM) in third trimester SVT Continue sotalol and digoxin Serial growth scan 08/07/24 FHT 135 today ANCS 06/16-06/17 GDMA2 Declines insulin management Macrosomic growth pattern EFW 2,640 g 95% Hadlock AC 323.8 mm 36w 2d >99% Hadlock Continue sending blood sugar logs to [facility] care First trimester Cell free DNA: low risk First trimester labs: completed 28 week labs CBC, HIV, syphilis completed: yes Rh status: positive Third trimester Tdap: completed GBS: collected today control plan Delivery timing and mode: 37w ANFS: Continue 2x weekly ANFS- scheduled Discussed signs and symptoms of labor and kick counts RTC 1 weeks via HROB to schedule IOL Note to patient: The Cures Act makes [...] the clinical opinion of the practitioner. * Henrietta Knapp CMA - 08/04/2024 9:00 AM EDT Pt here for routine HROB 35w4d Denies lof vb ctx Confirms +fm GBS due today Logging BS at home Pt has CGM, readings go to [facility] Fasting glucose today 87 HR 77 Pt would like to discuss induction date No concerns today * Shira Staples MD - 08/04/2024 9:00 AM EDT Provider Statement I was present with the resident during the history and physical exam on this patient and discussed his or her management with the resident. I reviewed the residents's note and agree with the documented findings and plan of care with the following exceptions: Pt seen and examined, discussed and agree with resident note. Chart reviewed. She has no OB complaints. She is in HROB clinic for SVT, she also has GDM. She is from [place] and has been getting testing there- states is getting weekly USN and twice weekly NST and everything has been ok . GBS done today. Issues: SVT- continue meds. Next [facility] Usn 08/07. Had ANCS GDM- pt has CGM and values get sent to [facility]. She is not on any medication, she is getting twice weekly testing. Has h/o elevated fastings and declined meds. Macrosomic growth pattern Delivery plan- pt will have growth USN this Saturday. Discussed possible recommendation for delivery by primary c section if growth meets parameters. Briefly discussed how macrosomic growth can have possible effects on labor pattern and vaginal delivery. Reviewed that there are risks and benefits to both options for delivery. Can discuss in more detail next week at her visit. [facility] rec delivery at 37 wks RTO in 1 week- to see us for cervical exam review of USN and discuss delivery recommendations. Radha Staples MD documented in this encounter Plan of Treatment Not on file documented as of this encounter Procedures Procedure Name Priority Date/Time Associated Diagnosis Comments STREP B SCREEN Routine 08/04/2024 9:03 AM EDT Intrauterine documented in this encounter Results * Strep B screen (08/04/2024 9:03 AM EDT) CULTURE RESULTS NEGATIVE FOR GROUP B STREPTOCOCCUS BY NUCLEIC ACID AMPLIFICATION 08/05/2024 1:02 PM EDT [facility] Swab (Vagina/Rectum) 08/04/2024 9:03 AM EDT 08/04/2024 9:03 AM EDT us Haley Tucker DO MICROBIOLOGY - GENERAL ORDER HALEY Final Result [facility] [address] [place] [address], documented in this encounter Visit Diagnoses Diagnosis [...] documented as of this encounter Care Teams Live Study Manager Relationship Specialty Start Date End Date Sarah Queen APRN[employer] [address] [place] [address] PCP - General Internal Medicine 09/03/23 documented as of this encounter
--- OUTSIDE RECORDS SUMMARY | 2024-08-07 15:30 | XMS_ITS | Encounter Summary ---
Author Organization [email or web address] tem Address [facility] [place]-[id number] [address] [place] [address] Care Team Providers Care Wirer Maintenance Name Role Phone Sarah Queen APRN-FORCER MAKER Primary Care Provider + Reason for Referral * Diagnostic Imaging (Routine) - Pending Review Specialty Diagnoses / Procedures [facility] Referred To Contact Maternal and Medicine Diagnoses Gestational diabetes mellitus (GDM) in third trimester, gestational diabetes method of control unspecified Supraventricular tachycardia of fetus affecting management of Excessive growth affecting management of in second trimester, single or unspecified fetus Polyhydramnios affecting Procedures US [facility] with or without consult Silvestre Lowry MD [address] [address] Phone: tel: fax: Maternal- Medicine at [facility] [address] [place] [address] Phone: tel: fax: Referral ID Status Reason Start Date Expiration Date V isits Requested Visits Authorized [id number] Pending Review 07/28/2024 07/28/2025 1 1 Reason for Visit * Diagnostic Imaging (Routine) - Pending Review Specialty Diagnoses / Procedures Referred By [facility] t Referred To Contact Maternal and Medicine Diagnoses Gestational diabetes mellitus (GDM) in third trimester, gestational diabetes method of control unspecified Supraventricular tachycardia of fetus affecting management of Excessive growth affecting management of in second trimester, single or unspecified fetus Polyhydramnios affecting Procedures US [facility] with or without consult Silvestre Lowry MD [address], [address] [place] [address] Phone: tel: fax: Maternal- Medicine at [facility] [address] [place] [address] Phone: tel: fax: Referral ID Status Reason Start Date Expiration Date V isits Requested Visits Authorized [id number] Pending Review 07/28/2024 07/28/2025 1 1 Encounter Details Date Type Department Care Team (Latest Contact Info) Description 08/07/2024 3:30 PM EDT - 08/07/2024 11:59 PM EDT Hospital Encounter [facility] - [facility] US Imaging [address] [place] [address] Gestational diabetes mellitus (GDM) in third trimester, gestational diabetes method of control unspecified; Supraventricular tachycardia of fetus affecting management of ; Excessive growth affecting management of in second trimester, single or unspecified fetus; Polyhydramnios affecting Discharge Disposition: Home Social History [...] mg total) before bedtime. 60 tablet 3 07/28/2024 ondansetron (ZOFRAN) 4 mg tablet Take 1 tablet (4 mg total) by mouth every 8 (eight) hours as needed for nausea or vomiting. 20 tablet 05/28/2022 potassium chloride (K-TAB,KLOR-CON) 10 MEQ CR tablet Take 5 tablets (50 mEq total) by mouth in the morning. 150 tablet 3 06/28/2024 sotaloL (BETAPACE) 160 mg tablet Take 1 tablet (160 mg total) by mouth every 12 (twelve) hours. 60 tablet 3 06/28/2024 [id number] acid ( 19) 29 mg iron- 1 mg tablet,chewable Chew 1 tablet and swallow in the morning. documented as of this encounter Plan of Treatment Not on file documented as of this encounter Procedures Procedure Name Priority Date/Time Associated Diagnosis Comments US MFM OB FOLLOW-UP, 1 FETUS Routine 08/07/2024 4:30 PM EDT Gestational diabetes mellitus (GDM) in third trimester, gestational diabetes method of control unspecified Supraventricular tachycardia of fetus affecting management of Excessive growth affecting management of in second trimester, single or unspecified fetus Polyhydramnios affecting documented in this encounter Results * US MFM OB FOLLOW-UP, 1 FETUS (08/07/2024 4:30 PM EDT) Anatomical Region Laterality Modality OB-RELIABILITY TECHNICIANS Ultrasound 08/07/2024 4:05 PM EDT Narrative 08/07/2024 10:27 PM EDT NAME: SCOTTY CAMERON : 1995 SEX: F Accession Number: [id number] ORDERING PHYSICIAN: SILVESTRE LOWRY REFERRING PHYSICIAN: ALAN CONNOR Coding ----- --------- Procedures 79975: Follow-up Ultrasound, per fetus Indication ----- --------- hx of SVT this , Obesity in , Gestational diabetes History ----- --------- OB History 2. Para 1 [id number] Maternal Assessment ----- --------- Physical Exam Height 157 cm, 5 ft 2 in. Initial weight 89 kg, 197 lb. Initial BMI 36.03 kg/m Method ----- --------- Transabdominal ultrasound examination ----- --------- Ramírez . Number of fetuses: 1 Dating ----- --------- LMP on: 12/07/2023 GA by LMP 34 w + 6 d KYLEIGH by LMP: 09/12/2024 Previous Ultrasound on: 02/11/2024 Type of prior assessment: GA GA at prior assessment date 10 w + 4 d GA by previous U/S 36 w + 0 d KYLEIGH by previous Ultrasound: 09/04/2024 Ultrasound examination on: 08/07/2024 GA by U/S based upon: AC, BPD, Femur, HC GA by U/S 38 w + 4 d KYLEIGH by U/S: 08/17/2024 Assigned: based on ultrasound (GA), selected on 06/11/2024 Assigned GA 36 w + 0 d Assigned KYLEIGH: 09/04/2024 General Evaluation ----- --------- Cardiac activity Present. FHR 137 bpm. Presentation: cephalic Placenta: Placental site: posterior, away from cervical os Umbilical cord: Cord vessels: 3 vessel cord. Insertion site: documented previously Amniotic fluid: Amount of AF: normal amount. MVP 6.8 cm Biometry ----- --------- Standard BPD 95.5 mm 39w 0d >99% Hadlock OFD 117.7 mm -/- 98% Samuel HC 339.3 mm 39w 0d 87% Hadlock Cerebellum tr 50.5 mm 36w 6d 63% Hill AC 352.5 mm 39w 1d >99% Hadlock Femur 71.9 mm 36w 6d 67% Hadlock Humerus 61.8 mm 35w 5d 63% Samuel HC / AC 0.96 EFW 3,544 g 97% Hadlock EFW (lb) 7 lb EFW (oz) 13 oz EFW by: Hadlock ([id number]-FL) Extended Tibia 65.8 mm 37w 6d >99% Samuel Rn Community 6.2 mm CM 8.6 mm 77% Nicolaides Head / Face / Neck Cephalic index 0.81 48% Nicolaides Extremities / Bony Struc FL / BPD 0.75 FL / HC 0.21 FL / AC 0.20 Other Structures FHR 137 bpm Anatomy ----- --------- The following structures appear normal: Head/Neck: Cranium. Lateral ventricles. Cavum septi pellucidi. Cerebellum. Cisterna magna. Heart/Thorax: Cardiac position. Cardiac axis. Cardiac size. Cardiac rhythm. Diaphragm. Abdomen: Stomach. Kidneys. Bladder. The following structures could not be adequately visualized: Heart / Thorax 4-chamber view. Maternal Structures ----- --------- Uterus Visualized Cervix Suboptimal Right Ovary Visualized Size 29 mm x 22 mm x 27 mm. Vol 9.0 cm Left Ovary Visualized Size 31 mm x 22 mm x 17 mm. Vol 5.9 cm Cul de Sac Suboptimal Impression ----- --------- Single viable intrauterine with macrosomic growth. EFW measuring at the 97%. AC measures at the >99%. There is no evidence of hydrops on today's exam. rhythm appears normal on today's exam. Amniotic fluid MVP measures 6.8 cm. Recommendations ----- --------- Please see [facility] recommendations from prior clinical and/or ultrasound report documentation. Subsequent follow up or other follow up as clinically determined by primary OB provider unless otherwise specified by [facility]. Results forwarded to ordering provider so they can follow up with the patient as necessary. Procedure Note Tammie Mckeon MD - 08/07/2024 NAME: SCOTTY CAMERON : 1995 SEX: F Accession Number: [id number] ORDERING PHYSICIAN: SILVESTRE LOWRY REFERRING PHYSICIAN: ALAN CONNOR Coding ----- --------- Procedures 98642: Follow-up Ultrasound, per fetus Indication ----- --------- hx of SVT this , Obesity in , Gestationaldiabetes History ----- --------- OB History 2. Para 1 [id number] Maternal Assessment ----- --------- Physical Exam Height 157 cm, 5 ft 2 in. Initial weight 89 kg, 197 lb.Initial BMI 36.03 kg/m Method ----- --------- Transabdominal ultrasound examination ----- --------- Ramírez . Number of fetuses: 1 Dating ----- --------- LMP on: 12/07/2023 GA by LMP 34 w + 6 d KYLEIGH by LMP: 09/12/2024 Previous Ultrasound on: 02/11/2024 Type of prior assessment: GA GA at prior assessment date 10 w + 4 d GA by previous U/S 36 w + 0 d KYLEIGH by previous Ultrasound: 09/04/2024 Ultrasound examination on: 08/07/2024 GA by U/S based upon: AC, BPD, Femur, HC GA by U/S 38 w + 4 d KYLEIGH by U/S: 08/17/2024 Assigned: based on ultrasound (GA), selected on 06/11/2024 Assigned GA 36 w + 0 d Assigned KYLEIGH: 09/04/2024 General Evaluation ----- --------- Cardiac activity Present. FHR 137 bpm. Presentation: cephalic Placenta: Placental site: posterior, away from cervical os Umbilical cord: Cord vessels: 3 vessel cord. Insertion site: documentedpreviously Amniotic fluid: Amount of AF: normal amount. MVP 6.8 cm Biometry ----- --------- Standard BPD 95.5 mm 39w 0d >99% Hadlock OFD 117.7 mm -/- 98% Samuel HC 339.3 mm 39w 0d 87% Hadlock Cerebellum tr 50.5 mm 36w 6d 63% Hill AC 352.5 mm 39w 1d >99% Hadlock Femur 71.9 mm 36w 6d 67% Hadlock Humerus 61.8 mm 35w 5d 63% Samuel HC / AC 0.96 EFW 3,544 g 97% Hadlock EFW (lb) 7 lb EFW (oz) 13 oz EFW by: Hadlock ([id number]-TZ-FL) Extended Tibia 65.8 mm 37w 6d >99% Samuel Rn Community 6.2 mm CM 8.6 mm 77% Nicolaides Head / Face / Neck Cephalic index 0.81 48% Nicolaides Extremities / Bony Struc FL / BPD 0.75 FL / HC 0.21 FL / AC 0.20 Other Structures FHR 137 bpm Anatomy ----- --------- The following structures appear normal: Head/Neck: Cranium. Lateral ventricles. Cavum septi pellucidi. Cerebellum.Cisterna magna. Heart/Thorax: Cardiac position. Cardiac axis. Cardiac size. Cardiacrhythm. Diaphragm. Abdomen: Stomach. Kidneys. Bladder. The following structures could not be adequately visualized: Heart / Thorax 4-chamber view. Maternal Structures ----- --------- Uterus Visualized Cervix Suboptimal Right Ovary Visualized Size 29 mm x 22 mm x 27 mm. Vol 9.0 cm Left Ovary Visualized Size 31 mm x 22 mm x 17 mm. Vol 5.9 cm Cul de Sac Suboptimal Impression ----- --------- Single viable intrauterine with macrosomic growth. EFW measuringat the 97%. AC measures at the >99%. There is no evidence of hydrops on today's exam. rhythm appears normal on today's exam. Amniotic fluid MVP measures 6.8 cm. Recommendations ----- --------- Please see [facility] recommendations from prior clinical and/or ultrasoundreport documentation. Subsequent follow up or other follow up as clinically determined byprimary OB provider unless otherwise specified by [facility]. Results forwarded to ordering provider so they can follow up with thepatient as necessary. Silvestre Lowry MD G ORDERABLES Final Re sult documented in this encounter Visit Diagnoses Diagnosis Gestational diabetes [...] documented as of this encounter Care Teams Wirer Maintenance Relationship Specialty Start Date End Date Sarah Queen, PBX INSPECTOR-FORCER MAKER [address] [place] [address] PCP - General Internal Medicine 09/03/23 documented as of this encounter
--- OUTSIDE RECORDS SUMMARY | 2024-08-11 09:00 | XMS_ITS | Encounter Summary ---
Author Organization [facility] Address [id number] [address] [place] [address] Care Team Providers Care Diver Assistant Name Role Phone Sarah Queen AUTO WHEEL ALIGNMENT SPECIALIST-CATALYST OPERATOR CHIEF Primary Care Provider + Reason for Visit * Reason Comments Routine Visit Encounter Details Date Type Department Care Team (Late st Contact Info) Description 08/11/2024 9:00 AM EDT Routine [facility] Services - Women's Services [address] [place] [phone] Shira Staples MD [address] [place] [address], [address] [address] GA: 36w4d Social History Tobacco Use Types Packs/Day Years [...] got money to buy more. Never True 08/11/2024 Within the past 12 months th e food we bought just didn't last and we didn't have money to get more. Never True 08/11/2024 Estimated Date of Delivery Comme nts Yes 09/04/2024 Based on Ultraso und Sex and Gender Information Value Date Recorded Sex Assigned at Not on file Legal Sex Female 11:54 AM EDT Gender Identity Not on file Sexual Orientation Not on file documented as of this encounter Last Filed Vital Signs Vital Sign Reading Time Taken Comments Blood Pressure 128/76 08/11/2024 8:53 AM EDT Pulse - - Temperature - - Respiratory Rate - - Oxygen Saturation - - Inhaled Oxygen Concentration - - Weight 90 kg (198 lb 8 oz) 08/11/2024 8:53 AM ED T Height - - Body Mass Index 35.16 07/17/2024 1:48 PM EDT documented in this encounter Progress Notes * Shanique Malhotra MD - 08/11/2024 9:00 AM EDT High Risk Obstetrics - Return Visit Veda Mzt is a 28 y.o. at 36w4d who presents for routine OB visit. She endorses good movement. Denies SROM, vaginal bleeding, contractions. GDMA - BG - fasting 88-92, PP 100-110 with breakfast, lunch 110-120, dinner 120-130 - has CGM Has been doing twice weekly NST and weekly DVP in [place] (Saturday and ) Patient Active Problem List Diagnosis Intrauterine Supraventricular tachycardia of fetus affecting management of Excessive growth affecting management of mother in second trimester, antepartum Gestational diabetes mellitus (GDM) in third trimester ROS: HEENT: Denies H/A, visual changes Wt Readings from Last 3 Encounters: 08/04/24 90.6 kg (199 lb 11.2 oz) 07/24/24 90 kg (198 lb 6.4 oz) 07/17/24 89.5 kg (197 lb 5 oz) flowsheet -- reviewed Alert, NAD Abd: soft, NT FHT: 122 A/P 28 y.o. at 36w4d here for routine care appointment 1. arrhythmia - On sotalol and digoxin - S/p ANCS 06/16- - Induction at 37 weeks per MFM - Cervical exam performed today /-2, AVILEZ score 5, induction request sent today 2. GDMA - Declines insulin - BG - fasting 88-92, PP 100-110 with breakfast, lunch 110-120, dinner 120-130 - has CGM 3. Macrosomic growth pattern MFM US 08/07: cephalic, DVP 6.8, EFW 3544 g, 97%, AC > 99% (39 weeks at 36 weeks), no hydrops - last baby 3458 g - Discussed increased risk of shoulder dystocia and possible long-term consequences - Discussed that she does not meet criteria for medically indicated CS - Patient expressed understanding, all questions answered 4. Routine Care - GBS negative - Twice weekly NST and weekly DVP - in [place] (Saturday and ) - Induction request sent Return for PP visit Jenniffer Malhotra MD PGY-4 * Lucy Swartz LPN - 08/11/2024 9:00 AM EDT Pt in office for 36w4d Routine Visit Pt denies LOF,VB,CTX Positive Movement Pt denies any concerns at todays visit URINE DIP SMALL LEUKOCYTES SMALL KETONES * Shira Staples MD - 08/11/2024 9:00 AM EDT Provider Statement I was not present during the history and physical exam on this patient and discussed his or her management with the resident. I reviewed the residents's note and agree with the documented findings and plan of care with the following exceptions: Pt left prior to me seeing her. Discussed chart, patient, findings and plan with resident. Reviewed resident note Pt is 28yo at 36w 4d here for HROB visit. She has no OB complaints. GBS negative. She is in HROB clinic for SVT, she also has GDM. She is from [place] and has been getting testing there- states is getting weekly USN and twice weekly NST and everything has been ok . Issues: SVT- continue meds. Had ANCS Last MFM USN (08/07/22) vertex, posterior placenta, MVP 6.8cm, EFW 3544gm 97%, AC >99%. rhythm appeared normal on that usn Plan for IOL at 37 wks per MFM- form filled out and turned in for this Saturday Extrapolated EFW for this Saturday based on avg of 35gm/day = 3789gm GDM- pt has CGM and values get sent to [facility]. She is not on any medication, she is getting twice weekly testing. Has h/o elevated fastings and declined meds. Macrosomic growth pattern- see above Delivery plan- IOL 37 wks MFM rec delivery at 37 wks RTO for pp visit Radha Staples MD documented in this encounter Plan of Treatment Not on file documented as of this encounter Visit Diagnoses Diagnosis Supraventricular tachycardia of fetus affecting management of - Primary Excessive growth affecting management of in second trimester, single or unspecified fetus Gestational diabetes mellitus (GDM) in third trimester, gestational diabetes method of control unspecified care, third trimester documented in this encounter Additional Health Concerns Assessment Noted Time PHQ-9 Depression Total Score: 0 05/29/19 23 11:03 AM EDT documented as of this encounter Care Teams Diver Assistant Relationship Specialty Start Date End Date Sarah Queen, AUTO WHEEL ALIGNMENT SPECIALIST-CATALYST OPERATOR CHIEF [address] [place] [address] PCP - General Internal Medicine 09/03/23 documented as of this encounter
--- OUTSIDE RECORDS SUMMARY | 2024-08-13 19:19 | XMS_ITS | Encounter Summary ---
Author Organization [facility] Address [address] [place] [address] Care Team Providers Care Food Processing Scientist Name Role Phone Terrence Mcintyre MD Primary Care Provider + [phone] Encounter Details Date Type Department Care Team (Late st Contact Info) Description 08/06/2024 Clinisync Result Encounter [facility] External Department Unsolicited Phil Fierro, DO [address] [facility] [address] [place] [id number] Social History Tobacco Use Types Packs/Day Years [...] Diagnosis Comments US OB BPP W NON-STRESS 08/06/2024 9:04 PM EDT documented in this encounter Results * US OB BPP W NON-STRESS (08/06/2024 9:04 PM EDT) Anatomical Region Laterality Modality Other 08/06/2024 9:04 PM EDT Narrative 08/06/2024 9:06 PM EDT [facility] [address] [place] [address] Ultrasound Report Signed Patient: NISHA FAJARDO MR#: [id number] : 1995 Acct:[id number] Age/Sex: 28 / F ADM Date: 08/06/24 Loc: US Attending Dr: Phil Fierro D.O. Ordering Physician: Phil Fierro D.O. Date of Service: 08/06/24 Procedure(s): US OB BPP w non-stress Accession Number(s): [id number] cc: TERRENCE MCINTYRE ; Phil Fierro D.O. The [address] [address] Patient Name: NISHA FAJARDO MRN: [id number] date: 1995 Sex: F Assigned Patient Location: [facility] Current Patient Location: US Accession/Order Number: [id number] Exam Date: 08/06/2024 21:03 Report Date: 08/06/2024 21:04 At the request of: PHIL FIERRO DO Procedure: US OB BPP w non-stress Ultrasound biophysical profile HISTORY: Excessive growth Adequate breathing movement, gross body movement, tone and amniotic fluid volume for total score of 8 out of 8. The amniotic fluid index is 15.3cm within normal limits. The heart rate 129 bpm. US/US OB BPP w non-stress IMPRESSION: Adequate ultrasound biophysical profile Impression dictated by: Neo Buck M.D. 08/06/2024 9:04 PM Dictation Location: [place] [address] Electronically authenticated by: [id number] Y Date: 08/06/2024 21:04 Dictated By: Neo Buck D.O. Signed By: 08/06/242105 DD/ 03 TD/TT: Efficiency Miner Blasting: Procedure Note Radiology, Radiologist, MD - 08/07/2024 The [place] [id number] Ultrasound Report Signed Patient: NISHA FAJARDO LMR#: [id number] : 1995Acct:[id number] Age/Sex: 28 / FADM Date: 08/06/24 Loc: US Attending Dr: Phil Fierro D.O. Ordering Physician: Phil Fierro D.O. Date of Service: 08/06/24 Procedure(s): US OB BPP w non-stress Accession Number(s): [id number] cc: TERRENCE MCINTYRE ; Phil Fierro D.O. [place] [address] Patient Name: NISHA FAJARDO MRN: [facility]:[id number] date: 1995 Sex: F Assigned Patient Location: [facility] Current Patient Location: US Accession/Order Number: [id number] Exam Date: 08/06/2024 21:03 Report Date: 08/06/2024 21:04 At the request of: PHIL FIERRO DO Procedure: US OB BPP w non-stress Ultrasound biophysical profile HISTORY: Excessive growth Adequate breathing movement, gross body movement, tone and amniotic fluid volume for total score of 8 out of 8. The amniotic fluidindex is 15.3cm within normal limits. The heart rate 129 bpm. US/US OB BPP w non-stress IMPRESSION: Adequate ultrasound biophysical profile Impression dictated by: Neo Buck M.D. 08/06/2024 9:04 PM Dictation Location: [place] [address] Electronically authenticated by: [id number] Y Date: 1:04 Dictated By: Neo Buck D.O. Signed By:08/06/242105 DD/ 03 TD/TT: Efficiency Miner Blasting: Phil Fierro DO [facility] Final Result documented in this encounter Visit Diagnoses Not on filedocumented in this encounter Care Teams Food Processing Scientist Relationship Specialty Start Date End Date Terrence Mcintyre MD [address] [facility] [place] [address] PCP - General Family Medicine 02/11/24 documented as of this encounter
--- OUTSIDE RECORDS SUMMARY | 2024-08-13 19:19 | XMS_ITS | Encounter Summary ---
Author Organization [facility] Address [address] [place] [address] Care Team Providers Care Cleaner Laboratory Equipment Name Role Phone Terrence Mcintyre MD Primary Care Provider + [phone] Encounter Details Date Type Department Care Team (Late st Contact Info) Description 07/22/2024 Abstract [facility] OB [address] [facility] [place] [place] [id number] Ronald Fierro DO [address] [facility] [place] [address] Social History Tobacco Use Types Packs/Day Years [...] on filedocumented in this encounter Care Teams Cleaner Laboratory Equipment Relationship Specialty Start Date End Date Terrence Mcintyre MD [address] [facility] [place] [address] PCP - General Family Medicine 02/11/24 documented as of this encounter
--- NOTE | 2024-08-13 19:20 | US_ITS ---
[place] [id number] Patient Name: NISHA FAJARDO MRN: [id number] date: 1995 Sex: F Assigned Patient Location: [facility] Current Patient Location: [facility] Accession/Order Number: [id number] Exam Date: 08/13/2024 21:20 Report Date: 08/13/2024 21:20 At the request of: PHIL BURROUGHS DO Procedure: US OB BPP w non-stress Ultrasound biophysical profile HISTORY: Polyhydramnios Adequate breathing movement, gross body movement, tone and amniotic fluid volume for total score of 8 out of 8. The amniotic fluid index is 17.8cm within normal limits. The heart rate 123 bpm. US/US OB BPP w non-stress IMPRESSION: Adequate ultrasound biophysical profile Impression dictated by: Neo Buck M.D. 08/13/2024 9:20 PM Dictation Location: [place] [address] Electronically authenticated by: [id number] Y Date: 08/13/2024 21:20
--- OUTSIDE RECORDS SUMMARY | 2024-08-13 19:20 | XMS_ITS | Encounter Summary ---
Author Organization [facility] tem Address [facility] [address] [place] [address] Care Team Providers Care Cat Cracker Operator Name Role Phone Sarah Queen Arnaud VANGN-PRODUCT REPRESENTATIVE Primary Care Provider + Encounter Details Date Type Department Care Team (Late st Contact Info) Description 07/31/2024 Orders Only [facility] Internal Medicine - Family Medicine [address] [place] [address] Ref Prov, [place] [address] Social History Tobacco Use Types Packs/Day Years [...] documented as of this encounter Care Teams Cat Cracker Operator Relationship Specialty Start Date End Date Sarah Queen APRN-PRODUCT REPRESENTATIVE [address] [place] [address] PCP - General Internal Medicine 09/03/23 documented as of this encounter
--- OUTSIDE RECORDS SUMMARY | 2024-08-13 19:20 | XMS_ITS | Encounter Summary ---
Author Organization [facility] Address [address] [place] [address] Care Team Providers Care Hose Finisher Name Role Phone Terrence Mcintyre MD Primary Care Provider [phone] Encounter Details Date Type Department Care Team (Late st Contact Info) Description 07/08/2024 Abstract [facility] BCP OB [address] [facility] [place] [phone] Ronald Fierro DO [address] [facility] [place] [address] Social History Tobacco Use Types Packs/Day Years [...] on filedocumented in this encounter Care Teams Hose Finisher Relationship Specialty Start Date End Date Terrence Mcintyre MD [address] [facility] [place] [address] PCP - General Family Medicine 02/11/24 documented as of this encounter
--- OUTSIDE RECORDS SUMMARY | 2024-08-13 19:21 | XMS_ITS | Encounter Summary ---
Author Organization [facility] Address [address] [place] [address] Care Team Providers Care Assistant Customer Service Manager Name Role Phone Terrence Mcintyre MD Primary Care Provider [phone] Encounter Details Date Type Department Care Team (Late st Contact Info) Description 07/20/2024 Abstract [facility] BCP OB [address] [facility] [place] [phone] Ronald Fierro DO [address] [facility] [place] [address] Social History Tobacco Use Types Packs/Day Years [...] on filedocumented in this encounter Care Teams Assistant Customer Service Manager Relationship Specialty Start Date End Date Terrence Mcintyre MD [address] [facility] [place] [address] PCP - General Family Medicine 02/11/24 documented as of this encounter
--- OUTSIDE RECORDS SUMMARY | 2024-08-13 19:21 | XMS_ITS | Encounter Summary ---
Author Organization [facility] Address [facility]-[id number] [address] [place] [address] Care Team Providers Care Compressor Operator Portable Name Role Phone Sarah Queen Arnaud VANGN-ROLLER CHECKER Primary Care Provider + Encounter Details Date Type Department Care Team (Late st Contact Info) Description 06/12/2024 Telephone [facility] - Family Medicine [address] [place] [phone] Sveta Gomez CMA Social History Tobacco Use [...] documented as of this encounter Care Teams Compressor Operator Portable Relationship Specialty Start Date End Date Sarah Queen APRN-CNP [address] [place] [address] PCP - General Internal Medicine 09/03/23 documented as of this encounter
--- OUTSIDE RECORDS SUMMARY | 2024-08-13 19:21 | XMS_ITS | Encounter Summary ---
Author Organization [facility] Address [address] [place] [address] Care Team Providers Care Barrel Polisher Name Role Phone Terrence Mcintyre MD Primary Care Provider [phone] Encounter Details Date Type Department Care Team (Late st Contact Info) Description 07/06/2024 Abstract [facility] BCP OB [address] [facility] [place] [phone] Ronald Fierro DO [address] [facility] [place] [address] Social History Tobacco Use Types Packs/Day Years [...] on filedocumented in this encounter Care Teams Barrel Polisher Relationship Specialty Start Date End Date Terrence Mcintyre MD [address] [facility] [place] [address] PCP - General Family Medicine 02/11/24 documented as of this encounter
--- OUTSIDE RECORDS SUMMARY | 2024-08-13 19:21 | XMS_ITS | Encounter Summary ---
Author Organization [facility] Address [address] [place] [address] Care Team Providers Care Crop Duster Name Role Phone Terrence Mcintyre MD Primary Care Provider + [phone] Encounter Details Date Type Department Care Team (Late st Contact Info) Description 06/30/2024 [facility] Orders RICA 102 [facility] Vin[facility] [place] [phone] Ronald Fierro DO [address] [facility] [address] [place] [place] [phone] Social History Tobacco Use Types Packs/Day Years [...] on filedocumented in this encounter Care Teams Crop Duster Relationship Specialty Start Date End Date Terrence Mcintyre MD [address], [place] [address] PCP - General Family Medicine 02/11/24 documented as of this encounter
--- OUTSIDE RECORDS SUMMARY | 2024-08-13 19:22 | XMS_ITS | Encounter Summary ---
Author Organization [employer] Address [facility]-[id number] [address] [place] [address] Care Team Providers Care Irradiated Fuel Handler Name Role Phone Sarah Queen Arnaud CODY-TOWEL SORTER Primary Care Provider + Reason for Visit * Reason Comments Med Refill Encounter Details Date Type Department Care Team (Late st Contact Info) Description 02/20/2022 Refill [facility] Internal Medicine - Family Medicine [address] [place] [address] Deja Caal APRN-FNP [address] [place] [address] [place] [address] Social History Tobacco Use Types Packs/Day Years [...] on filedocumented in this encounter Care Teams Irradiated Fuel Handler Relationship Specialty Start Date End Date Sarah Queen, ESCOBAR-TOWEL SORTER [address] [place] [address] PCP - General Internal Medicine 09/03/23 documented as of this encounter
--- OUTSIDE RECORDS SUMMARY | 2024-08-13 19:22 | XMS_ITS | Encounter Summary ---
Author Organization [employer] Address [facility]-[id number] [address] [place] [address] Care Team Providers Care Traveling Storekeeper Name Role Phone BerniceAnn MarieSarahdonnie Lares APRN-CURRICULUM FACILITATOR Primary Care Provider + Reason for Referral * Cardiology (Routine) - Closed Specialty Diagnoses / Procedures Referred By Jess loza Referred To Contact Diagnoses Supraventricular tachycardia of fetus affecting management of Intrauterine Polyhydramnios affecting Excessive growth affecting management of in second trimester, single or unspecified fetus Procedures ECG 12 lead Aidan Rivera MD [address] [place] [address] Phone: tel: fax: Referral ID Status Reason Start Date Expiration Date Visits Re quested Visits Authorized [id number] Closed 06/29/2024 06/29/2025 1 1 Encounter Details Date Type Department Care Team (Late st Contact Info) Description 06/29/2024 Orders Only [facility] Pediatric Cardiology [address] [place] [phone] Aidan Rivera MD [address] [place], [place] [id number] Supraventricular tachycardia of fetus affecting management of [...] on file documented as of this encounter Results * [...] documented as of this encounter Care Teams Traveling Storekeeper Relationship Specialty Start Date End Date Sarah Queen, THERMODYNAMICS PROFESSOR-CURRICULUM FACILITATOR [address] [place] [address] PCP - General Internal Medicine 09/03/23 documented as of this encounter
--- OUTSIDE RECORDS SUMMARY | 2024-08-13 19:22 | XMS_ITS | Encounter Summary ---
Author Organization [facility] tem Address [facility]-[id number] [address] [place] [address] Care Team Providers Care Director Of Public Health Name Role Phone Sarah Queen Arnaud RACKING TECHNICIAN-LONG CHAIN BEAMER Primary Care Provider + Encounter Details Date Type Department Care Team (Late st Contact Info) Description 07/06/2024 Documentation Maternal- Medicine at [facility] [address] [place] [phone] Hayley Conner RDMS Social History Tobacco Use [...] of this encounter Care Teams Director Of Public Health Relationship Specialty Start Date End Date Sarah Queen APRN-LONG CHAIN BEAMER [address] [place] [address] PCP - General Internal Medicine 09/03/23 documented as of this encounter
--- OUTSIDE RECORDS SUMMARY | 2024-08-13 19:22 | XMS_ITS | Encounter Summary ---
Author Organization [facility] Address [address] [place] [address] Care Team Providers Care Barrel Cutter Name Role Phone Terrence Mcintyre MD Primary Care Provider [phone] Encounter Details Date Type Department Care Team (Late st Contact Info) Description 03/26/2024 Abstract [facility] BCP OB 102 [facility] [place] [phone] Ronald Fierro DO [address] [facility] [place] [address] Social History Tobacco Use Types Packs/Day Years [...] filedocumented in this encounter Care Teams Barrel Cutter Relationship Specialty Start Date End Date Terrence Mcintyre MD [address] [facility] [place] [address] PCP - General Family Medicine 02/11/24 documented as of this encounter
--- OUTSIDE RECORDS SUMMARY | 2024-08-13 19:22 | XMS_ITS | Encounter Summary ---
Author Organization [facility] Address [address] [place] [address] Care Team Providers Care Top Frame Maker Name Role Phone Terrence Mcintyre MD Primary Care Provider + [phone] Encounter Details Date Type Department Care Team (Late st Contact Info) Description 02/12/2024 Clinisync Result Encounter [facility] External Department Unsolicited Phil Fierro, DO 102 [facility] [place] [address] Social History Tobacco Use Types Packs/Day [...] AM EST Narrative 02/12/2024 4:29 AM EST The [address] [address] Ultrasound Report Signed Patient: Nisha Fajardo MR#: [id number] : 1995 Acct:[id number] Age/Sex: 28 / F ADM Date: 02/11/24 Loc: [facility] Attending Dr: Phil Fierro D.O. Ordering Physician: Phil Fierro D.O. Date of Service: 02/11/24 Procedure(s): US OB transvaginal Accession Number(s): [id number] cc: Phil Fierro D.O.; Physician,Non-Staff [place]ivid[place] The [place] [phone] Patient Name: NISHA FAJARDO MRN: [id number] date: 1995 Sex: F Assigned Patient Location: [facility] Current Patient Location: Accession/Order Number: [id number] Exam Date: 02/11/2024 08:27 Report Date: 02/12/2024 [...] Dictated By: Dave Almonte M.D. Signed By: 02/12/24428 DD/ 5 TD/TT: Welding Machine Operator Helper Arc: Procedure Note Radiology, Radiologist, - 02/12/2024 [place] [address] Ultrasound Report Signed Patient: Nisha Fajardo LMR#: [id number] : 1995Acct:[id number] Age/Sex: 28 / FADM Date: 02/11/24 Loc: [facility] Attending Dr: Phil Fierro D.O. Ordering Physician: Phil Fierro D.O. Date of Service: 02/11/24 Procedure(s): US OB transvaginal Accession Number(s): [id number] cc: Phil Fierro D.O.; Physician,Non-Staff [place] [address] Patient Name: NISHA FAJARDO MRN: [id number] date: 1995 Sex: F Assigned Patient Location: [facility] Current Patient Location: Accession/Order Number: [id number] Exam Date: 02/11/2024 08:27 Report Date: 02/12/2024 [...] Almonte M.D. Signed By:02/12/24428 DD/ 5 TD/TT: Welding Machine Operator Helper Arc: us Phil Feirro DO [facility] Final Result documented in this encounter Visit Diagnoses Not on filedocumented in this encounter Care Teams Top Frame Maker Relationship Specialty Start Date End Date Terrence Mcintyre MD [address] [facility], [place] [address] PCP - General Family Medicine 02/11/24 documented as of this encounter
--- OUTSIDE RECORDS SUMMARY | 2024-08-13 19:22 | XMS_ITS | Encounter Summary ---
Author Organization [facility] Address [facility]-[id number] [address] [place] [address] Care Team Providers Care General Farm Hand Name Role Phone Sarah Queen BOX MAKER-COLLAR BASTER JUMPBASTING Primary Care Provider + Encounter Details Date Type Department Care Team (Late st Contact Info) Description 08/06/2024 Orders Only [facility] Internal Medicine - Family Medicine [address] [place] [address] Ref Prov, [place] [address] Social History Tobacco Use Types Packs/Day Years [...] Diagnosis Comments US PELVIC WITH TRANSVAGINAL Routine 07/16/2024 11:23 AM EDT documented in this encounter Results * Ultrasound pelvic with transvaginal (07/16/2024 11:23 AM EDT) Anatomical Region Laterality Modality Body, Pelvis Ultrasound us Not In System Ref Prov IMG US ORDERABLES Final R esult documented in this encounter Visit Diagnoses Not on filedocumented in this encounter Additional Health Concerns Assessment Noted Time PHQ-9 Depression Total Score: 0 05/29/19 11:03 AM EDT documented as of this encounter Care Teams General Farm Hand Relationship Specialty Start Date End Date Sarah Queen APRN-COLLAR BASTER JUMPBASTING [address] [place] [address] PCP - General Internal Medicine 09/03/23 documented as of this encounter
--- OUTSIDE RECORDS SUMMARY | 2024-08-13 19:22 | XMS_ITS | Encounter Summary ---
Author Organization [employer] tem Address [facility][id number] [address] [place] [address] Care Team Providers Care Safety Engineer Name Role Phone Sarah Queen PRODUCTION SUPERVISOR TRAINEE-HASSOCK MAKER Primary Care Provider + Encounter Details Date Type Department Care Team (Latest Contact Info) Description 08/06/2024 Travel Social History Tobacco Use Types Packs/Day [...] documented as of this encounter Care Teams Safety Engineer Relationship Specialty Start Date End Date Sarah Queen, PRODUCTION SUPERVISOR TRAINEE-HASSOCK MAKER [address] [place] [address] PCP - General Internal Medicine 09/03/23 documented as of this encounter
--- OUTSIDE RECORDS SUMMARY | 2024-08-13 19:22 | XMS_ITS | Encounter Summary ---
Author Organization [facility] Address [address] [place] [address] Care Team Providers Care National Recruiter Name Role Phone Terrence Mcintyre MD Primary Care Provider + [phone] Encounter Details Date Type Department Care Team (Late st Contact Info) Description 07/31/2024 Clinisync Result Encounter [facility] External Department Unsolicited Phil Fierro, DO 102 [facility] [address] [place] [phone] Social History Tobacco Use Types Packs/Day Years [...] AM EDT Narrative 07/31/2024 8:57 AM EDT The [facility] [address] [place] [address] Ultrasound Report Signed Patient: NISHA FAJARDO MR#: [id number] : 1995 Acct:[id number] Age/Sex: 28 / F ADM Date: 07/30/24 Loc: US Attending Dr: Phil Fierro D.O. Ordering Physician: Phil Fierro D.O. Date of Service: 07/30/24 Procedure(s): US OB BPP w non-stress Accession Number(s): [id number] cc: TERRENCE MCINTYRE ; Phil Fierro D.O. [place] [id number] Patient Name: NISHA FAJARDO MRN: [id number] date: 1995 Sex: F Assigned Patient Location: [facility] Current Patient Location: Accession/Order Number: [id number] Exam Date: 07/31/2024 08:53 Report Date: 07/31/2024 [...] Roldan M.D. 07/31/2024 8:55 AM Dictation Location: [place] [address] Electronically authenticated by: [id number] Y Date: 07/31/2024 08:55 Dictated By: Hayley Roldan M.D. Signed By: 07/31/24 0857 DD/ 0855 TD/TT: Road Engineer Freight: Procedure Note Radiology, Radiologist, - 07/31/2024 [place] [address] Ultrasound Report Signed Patient: NISHA FAJARDO LMR#: [id number] : 1995Acct:[id number] Age/Sex: 28 / FADM Date: 07/30/24 Loc: US Attending Dr: Phil Fierro D.O. Ordering Physician: Phil Fierro D.O. Date of Service: 07/30/24 Procedure(s): US OB BPP w non-stress Accession Number(s): [id number] cc: TERRENCE MCINTYRE ; Phil Fierro D.O. The [place] [id number] Patient Name: NISHA FAJARDO MRN: [facility]:[id number] date: 1995 Sex: F Assigned Patient Location: [facility] Current Patient Location: Accession/Order Number: [id number] Exam Date: 07/31/2024 08:53 Report Date: 07/31/2024 [...] Roldan M.D. 07/31/2024 8:55 AM Dictation Location: [place] [address] Electronically authenticated by: [id number] Y Date: 508:55 Dictated By: Hayley Roldan M.D. Signed By:07/31/2457 DD/ 4 TD/TT: Road Engineer Freight: us Phil Sri DO [facility] Final Result documented in this encounter Visit Diagnoses Not on filedocumented in this encounter Care Teams National Recruiter Relationship Specialty Start Date End Date Terrence Mcintyre MD [address] [facility] [place] [address] PCP - General Family Medicine 02/11/24 documented as of this encounter
--- OUTSIDE RECORDS SUMMARY | 2024-08-13 19:23 | XMS_ITS | Encounter Summary ---
Author Organization [employer] s tem Address [facility]-[id number] [address] [place] [address] Care Team Providers Care Deck Engineer Name Role Phone Sarah Queen SURVEYOR ROD HELPER-CHILDREN LIBRARIAN Primary Care Provider + Encounter Details Date [...] documented as of this encounter Care Teams Deck Engineer Relationship Specialty Start Date End Date Sarah Queen, SURVEYOR ROD HELPER-CHILDREN LIBRARIAN [address] [place] [address] PCP - General Internal Medicine 09/03/23 documented as of this encounter
--- OUTSIDE RECORDS SUMMARY | 2024-08-13 19:23 | XMS_ITS | Encounter Summary ---
Author Organization [employer] Address [facility]-[id number] [address] [place] [address] Care Team Providers Care Senior Designer Name Role Phone Sarah Queen Arnaud VANGN-COAT PRESSER Primary Care Provider + Encounter Details Date Type Department Care Team (Late st Contact Info) Description 07/28/2024 Telephone [facility] Services - Women's Services [address] [place] [phone] Leidy Gonzalez RN Social History Tobacco Use [...] as of this encounter Care Teams Senior Designer Relationship Specialty Start Date End Date Sarah Queen APRN-COAT PRESSER [address] [place] [address] PCP - General Internal Medicine 09/03/23 documented as of this encounter
--- OUTSIDE RECORDS SUMMARY | 2024-08-13 19:23 | XMS_ITS | Encounter Summary ---
Author Organization [facility] tem Address [facility]-S16974 [address] [place] [address] Care Team Providers Care Seo Assistant Name Role Phone Sarah Queen Arnaud VANGN-PORTABLE TRACKMAN Primary Care Provider + Encounter Details Date Type Department Care Team (Late st Contact Info) Description 07/28/2024 Orders Only Maternal- Medicine at [facility] [address] [place] [phone] Tammie Mckeon MD [address] [facility] [address] [place] [address] Social History Tobacco Use Types Packs/Day Years [...] documented as of this encounter Care Teams Seo Assistant Relationship Specialty Start Date End Date Sarah Queen, DENTAL THERAPIST-PORTABLE TRACKMAN [address] [place] [address] PCP - General Internal Medicine 09/03/23 documented as of this encounter
--- OUTSIDE RECORDS SUMMARY | 2024-08-13 19:23 | XMS_ITS | Encounter Summary ---
Author Organization [facility] Address [address] [place] [address] Care Team Providers Care Water Control Supervisor Name Role Phone Terrence Mcintyre MD Primary Care Provider + [phone] Encounter Details Date Type Department Care Team (Late st Contact Info) Description 06/11/2024 External Result Encounter [facility] OB [address] [place] [address] Phil Fierro [address] [facility] [address] [place], [place] [phone] Social History Tobacco Use Types Packs/Day Years [...] PM EDT THIS EXAM WAS PERFORMED AT [facility] NAME: SCOTTY CAMERON : 1995 SEX: F Accession Number: [id number] ORDERING PHYSICIAN: PHIL FIERRO REFERRING PHYSICIAN: PHIL FIERRO Coding ----- --------- Procedures 34446: Ultrasound, uterus, real time with image documentation, and maternal evaluation plus detailed anatomic examination, transabdominal approach;single or first gestation 59735: Echocardiography, , cardiovascular system, real time with image documentation (2D), with or without M-mode recording Indication ----- --------- Screening for Anatomic Survey , tachycardia, Polyhydramnios History ----- --------- OB History 2. Para 1 [id number] Maternal Assessment ----- --------- Physical Exam Height [...] 3 lb 5 oz EFW by Hadlock ([id number]) Head / Face / Neck Biometry: Cephalic index 0.76 23% Nicolaides String Top Sealer 5.8 mm CM 3.5 mm <1% Nicolaides [...] view. RVOT view. LVOT view. 3-vessel view. 8-otbswc-cshpaud view. Right lung. Left lung. Diaphragm. Abdomen: [...] normal RVOT view normal 3-vessel view normal 6-fhpzgw-jfqjwel view normal Aortic arch view normal Ductal [...] 9.3 cm. Recommendations ----- --------- Please see [facility] documentation from today. The patient is scheduled in four to six week(s) to complete anatomic survey and echocardiogram. Admit to Labor and Delivery for further evaluation. Subsequent follow up or other follow up as clinically determined by primary OB provider unless otherwise specified by [facility]. Results forwarded to ordering provider so they can follow up with the patient as necessary. Procedure Note Radiology, Radiologist, - 06/11/2024 THIS EXAM WAS PERFORMED AT [facility] NAME: SCOTTY CAMERON : 1995 SEX: F Accession Number: [id number] ORDERING PHYSICIAN: PHIL FIERRO REFERRING PHYSICIAN: PHIL FIERRO Coding ----- --------- Procedures 84121: Ultrasound, uterus, real time with imagedocumentation, and maternal evaluation plus detailed anatomic examination, transabdominalapproach;single or first gestation 00832: Echocardiography, , cardiovascular system, real timewith image documentation (2D), with or without M-mode recording Indication ----- --------- Screening for Anatomic Survey , tachycardia, Polyhydramnios History ----- --------- OB History 2. Para 1 [id number] Maternal Assessment ----- --------- Physical Exam Height [...] 3 lb 5 oz EFW by Hadlock ([id number]-FL) Head / Face / Neck Biometry: Cephalic index 0.76 23% Nicolaides String Top Sealer 5.8 mm CM 3.5 mm <1% Nicolaides [...] 4-chamber view. RVOT view. LVOT view. 3-vessel view.7-uduqzi-czuvnqu view. Right lung. Left lung. Diaphragm. Abdomen: [...] normal RVOT view normal 3-vessel view normal 5-qzsroj-oqpkdbi view normal Aortic arch view normal Ductal [...] 9.3 cm. Recommendations ----- --------- Please see [facility] documentation from today. The patient is scheduled in four to six week(s) to complete anatomicsurvey and echocardiogram. Admit to Labor and Delivery for further evaluation. Subsequent follow up or other follow up as clinically determined byprimary OB provider unless otherwise specified by [facility]. Results forwarded to ordering provider so they can follow up with thepatient as necessary. us Phil Sri DO IMG OB US PROCEDURES Final Resul t documented in this encounter Visit Diagnoses Not on filedocumented in this encounter Care Teams Water Control Supervisor Relationship Specialty Start Date End Date Terrence Mcintyre MD [address] [facility], [place] [address] PCP - General Family Medicine 02/11/24 documented as of this encounter
--- OUTSIDE RECORDS SUMMARY | 2024-08-13 19:23 | XMS_ITS | Clinical Summary ---
Author Organization [employer] [facility] tem Address [id number] [address] [place] [address] Care Team Providers Care Legal Consultant Name Role Phone BerniceAnn Marie brooksdonnie Lares APRN-HEADING MACHINE OPERATOR Primary Care Provider + Allergies No known active allergies Medications ondansetron (ZOFRAN) 4 mg tablet Take 1 tablet (4 mg total) by mouth every 8 (eight) hours as needed for nausea or vomiting. 20 tablet 3 Active [id number] c acid ( 19) 29 mg iron- 1 mg tablet,chewable Chew 1 tablet and swallow in the morning. Active lancets 33 gauge miscIndications :Diet controlled gestational diabetes mellitus (GDM) in third trimester To check blood glucose fasting and 1 hour after each meal 200 each 5 Active digoxin (LANOXIN) 250 mcg tablet Take 1 tablet (250 mcg total) by mouth every 12 (twelve) hours. 60 tablet 3 5 Active sotaloL (BETAPACE) 160 mg tablet Take 1 tablet (160 mg total) by mouth every 12 (twelve) hours. 60 tablet 3 5 Active potassium chloride (K-TAB,KLOR-CON ) 10 MEQ CR tablet Take 5 tablets (50 mEq total) by mouth in the morning. 150 tablet 3 5 Active calcium carbonate-vitam in D3 (OSCAL 500 + D) 500 mg (1,250 mg) - 200 units per tablet Take 1 tablet by mouth in the morning and 1 tablet in the evening. Take with meals. 180 tablet 3 5 Active alcohol swabs pads, medicatedIndica tions:Diet controlled gestational diabetes mellitus (GDM) in third trimester To use when performing a fingerstick 200 each 5 Active blood sugar diagnostic (glucose blood) stripIndication s:Diet controlled gestational diabetes mellitus (GDM) in third trimester Check blood glucose fasting and 1 hour after each meal 200 strip 5 Active blood-glucose meter miscIndications :Diet controlled gestational diabetes mellitus (GDM) in third trimester Please check blood glucose fasting and 1 hour after each meal 1 each 5 Active blood-glucose sensor (FREESTYLE NEIDA 3 PLUS SENSOR) deviceIndicatio ns:Diet controlled gestational diabetes mellitus (GDM) in third trimester Wear for 15 days and change 2 each 3 5 Active famotidine (PEPCID) 40 mg tablet Take 1 tablet (40 mg total) by mouth in the morning. Active magnesium oxide (MAGOX) 400 mg tablet Take 1 tablet (400 mg total) by mouth in the morning and 1 tablet (400 mg total) before bedtime. 60 tablet 3 5 Active magnesium oxide (MAGOX) 400 mg tablet Take 1 tablet (400 mg total) by mouth in the morning and 1 tablet (400 mg total) before bedtime. 60 tablet 3 5 025 Discontin ued(Reord er) Active Problems Patient Care Coordination No te [...] Consult: []Palliative Care Consult: []SGM: []Life Connection: []Paxinos: [] MRI: []Nationwide: []UofM: []UH: [x]ANTOINETTE CHS: [...] Date Gestational diabetes mellitus (GDM) in third [facility] 07/17/2024 Intrauterine 06/11/2024 Overview (07/10/2024): First trimester Cell free DNA: low risk per patient Carrier screening 28 week labs CBC, HIV, Syphilis completed: yes Rh status: positive Third trimester Tdap: will do with regular OBGYN GBS at 36 weeks Mode of delivery: testing: Saturday/ NST/ [facility] Supraventricular tachycardia of fetus affecting management of [...] Encounters Date Type Department Care Team Description 08/11/2024 9:00 AM EDT [facility] [address] [place] [address] Shira Staples MD GA: 36w4d 08/11/2024 Telephone [facility] [place] [address] [place] [address] Luz Marina Castelan, ARLIN 08/11/2024 Travel 08/07/2024 3:30 PM EDT - 08/07/2024 11:59 PM EDT Hospital Encounter [place] [facility] Imaging [address] [place] [address] Gestational diabetes mellitus (GDM) in third trimester, gestational diabetes method of control unspecified; Supraventricular tachycardia of fetus affecting management of ; Excessive growth affecting management of in second trimester, single or unspecified fetus; Polyhydramnios affecting Discharge Disposition: Home 08/06/2024 Travel 08/06/2024 Orders Only [facility] [address] [place] [address] Ref Prov, Not In System 08/04/2024 9:00 AM EDT Routine [facility] [address] [place] [address] Shira Staples MD GA: 35w4d 08/03/2024 Orders Only [facility] [address] [place] [place] [address] Ref Prov, Not In System 08/03/2024 Travel 07/31/2024 Orders Only [facility] [address] [place] [place] [address] Ref Prov, Not In System 07/28/2024 Orders Only [facility] [place] [address] [place] [address] Tammie Mckeon MD 07/28/2024 Telephone [facility] [address] [place] [address] Leidy Gnozalez RN 07/28/2024 Orders Only [facility] [place] [address] [place] [address] Chelsea Segura LPN Gestational diabetes mellitus (GDM) in third trimester, gestational diabetes method of control unspecified (Primary Dx); Supraventricular tachycardia of fetus affecting management of ; Excessive growth affecting management of in second trimester, single or unspecified fetus; Polyhydramnios affecting 07/24/2024 8:30 AM EDT [facility] [address] [place] [address] Alan Tatum MD GA: 34w0d 07/24/2024 Travel 07/22/2024 Orders Only [facility] - [facility] [address] [place] [address] Ref Prov, Not In System 07/21/2024 Telephone [facility] [place] [address] [place] [address] Lila Zhao RN 07/17/2024 4:34 PM EDT - 07/17/2024 11:59 PM EDT Hospital Encounter [facility] - Cardi[facility] [address] [place] [id number] Supraventricular tachycardia of fetus affecting management of ; Intrauterine ; Polyhydramnios affecting ; Excessive growth affecting management of in second trimester, single or unspecified fetus Discharge Disposition: Home 07/17/2024 2:30 PM EDT Office Visit [facility] [address] [place] [address] Silvestre Suárez MD 33 weeks gestation of (Primary Dx); Gestational diabetes mellitus (GDM) in third trimester, gestational diabetes method of control unspecified; Supraventricular tachycardia of fetus affecting management of ; Excessive growth affecting management of in second trimester, single or unspecified fetus 07/17/2024 12:47 PM EDT - 07/17/2024 4:33 PM EDT Hospital Encounter [place] [facility] [address] [place] [place] [address] Supraventricular tachycardia of fetus affecting management of ; Polyhydramnios affecting Discharge Disposition: Home 07/15/2024 Travel 07/10/2024 10:00 AM EDT Initial [facility] [address] [place] [address] Valorie Fenton MD GA: 32w0d 07/10/2024 Travel 07/06/2024 1:30 PM EDT Support Visit [facility] [address] [place] [address] Silvestre Suárez MD Frey, Angela M, RN Migdalia Morrow RD Diet controlled gestational diabetes mellitus (GDM) in third trimester 07/06/2024 Remote Patient Monitoring [facility] [address] [place] [address] Shahrzad Rojas, SMALL BUSINESS REPRESENTATIVE-[facility] Polyhydramnios affecting [O40.9XX0] (Primary Dx) 07/06/2024 Orders Only [facility] [address] [place] [address] Holly Sheehan, ARLIN Diet controlled gestational diabetes mellitus (GDM) in third trimester 07/06/2024 Documentation [facility] [address] [place] [address] Hayley Conner, SAHIL 07/04/2024 Travel 06/29/2024 Documentation [facility] [address] [place] [address] Hayley Conner, SAHIL 06/29/2024 Orders Only [facility] [address] [place] [address] Aidan Rivera MD Supraventricular tachycardia of fetus affecting management of (Primary Dx); Intrauterine ; Polyhydramnios affecting ; Excessive growth affecting management of in second trimester, single or unspecified fetus 06/29/2024 Telephone [facility] [place] [address] [place] [address] Mendy North RN 06/26/2024 Orders Only [place] - Labor [address] [place] [address] Silvestre Suárez MD Diet controlled gestational diabetes mellitus (GDM) in third trimester (Primary Dx) 06/26/2024 Documentation [facility] [address] [place] [address] Anahi Ragsdale RN 06/26/2024 Orders Only [facility] [address] [place] [address] Anahi Ragsdale RN Diet controlled gestational diabetes mellitus (GDM) in third trimester (Primary Dx) 06/24/2024 8:30 AM EDT - 06/24/2024 11:59 PM EDT Hospital Encounter [place] [facility] Imaging [address] [place] [address] Discharge Disposition: Home 06/23/2024 8:57 AM EDT - 06/23/2024 11:59 PM EDT Hospital Encounter [place] [facility] [address] [place] [address] Discharge Disposition: Home 06/22/2024 8:43 AM EDT - 06/22/2024 11:59 PM EDT Hospital Encounter [place] [facility] Imaging [address] [place] [address] Discharge Disposition: Home 06/22/2024 Telephone [facility] [address] [place] [address] Luther Buchanan, mechanical reliability engineer Problem 06/21/2024 9:49 AM EDT - 06/21/2024 11:59 PM EDT Hospital Encounter [place] [facility] Imaging [address] [place] [address] Discharge Disposition: Home 06/21/2024 Telephone [facility] [address] [place] [address] Bhavani Chavez patient update 06/20/2024 9:11 AM EDT - 06/20/2024 11:59 PM EDT Hospital Encounter [place] [facility] [address] [place] [address] Discharge Disposition: Home 06/19/2024 8:08 AM EDT - 06/19/2024 11:59 PM EDT Hospital Encounter [place] [facility] [address] [place] [address] Discharge Disposition: Home 06/18/2024 9:59 AM EDT - 06/18/2024 11:59 PM EDT Hospital Encounter [place] [facility] [address] [place] [address] Discharge Disposition: Home 06/17/2024 9:50 AM EDT - 06/17/2024 11:59 PM EDT Hospital Encounter [place] [facility] [address] [place] [address] Discharge Disposition: Home 06/16/2024 8:09 AM EDT - 06/16/2024 11:59 PM EDT Hospital Encounter [place] [facility] [address] [place] [address] Discharge Disposition: Home 06/16/2024 Travel 06/15/2024 8:01 AM EDT - 06/15/2024 11:59 PM EDT Hospital Encounter [place] [facility] [address] [place] [address] Discharge Disposition: Home 06/12/2024 Telephone [facility] - Family Medicine [address] [place] [address] Sveta Gomez, MARY 06/12/2024 Orders Only [facility] [address] [facility] [place] [address] Veda Bonilla RN Supraventricular tachycardia of fetus affecting management of (Primary Dx); Polyhydramnios affecting 06/11/2024 2:47 PM EDT - 06/28/2024 11:09 AM EDT Hospital Encounter [place] - [facility] [address] [facility] [place] [address] Fuentes Stauffer MD Excessive growth affecting management of in second trimester, single or unspecified fetus (Primary Dx); Polyhydramnios affecting ; Supraventricular tachycardia of fetus affecting management of ; Intrauterine Discharge Disposition: Home 06/11/2024 2:30 PM EDT Office Visit [facility] [address] [facility] [place] [address] Silvestre Suárez MD 27 weeks gestation of (Primary Dx); Supraventricular tachycardia of fetus affecting management of ; Polyhydramnios affecting ; Excessive growth affecting management of in second trimester, single or unspecified fetus 06/11/2024 12:46 PM EDT - 06/11/2024 2:46 PM EDT Hospital Encounter [place] [facility] [address] [facility] [place] [address] Screening, , for anatomic survey Discharge Disposition: Home 06/11/2024 Travel 06/11/2024 Orders Only [facility] [address] [place] [address] Ref Prov, Not In System 06/11/2024 Abstract [facility] [address] [place] [address] External, Scanning Provider from Last 3 Months [...] Pressure 128/76 08/11/2024 8:53 AM EDT Pulse 82 07/17/2024 1:48 PM EDT Temperature 36.5 C (97.7 F) 06/28/2024 7:30 AM EDT Respiratory Rate 19 06/28/2024 7:30 AM EDT Oxygen Saturation 97% 06/22/2024 1:00 PM EDT Inhaled Oxygen Concentration - - Weight 90 kg (198 lb 8 oz) 08/11/2024 8:53 AM ED T Height 160 cm (5' 3 ) 07/17/2024 1:48 PM EDT Body Mass Index 35.16 07/17/2024 1:48 PM EDT Plan of Treatment Health Maintenance Due Date Last Done Comments Adult BMI Follow Up Plan 10/07/2015 Depression Screening 05/29/2023 05/28/2022 Adult BMI Screening 08/11/2025 08/11/2024 Tobacco Screening 08/11/2025 08/11/2024 Pap Smear 04/15/2027 04/15/2024, 12/15/2018 DTaP,Tdap and [...] trimester, single or unspecified fetus Polyhydramnios affecting STREP B SCREEN Routine 08/04/2024 9:03 AM EDT Intrauterine US PELVIC WITH TRANSVAGINAL Routine 07/30/2024 9:10 AM EDT ECG 12-LEAD Routine 07/17/2024 4:43 PM EDT Supraventricular tachycardia of fetus affecting management of Intrauterine Polyhydramnios affecting Excessive growth affecting management of in second trimester, single or unspecified fetus US MFM OB FOLLOW-UP, 1 FETUS Routine 07/17/2024 2:06 PM EDT Supraventricular tachycardia of fetus affecting management of Polyhydramnios affecting US PELVIC WITH TRANSVAGINAL Routine 07/16/2024 11:23 AM EDT US PELVIC WITH TRANSVAGINAL Routine 07/09/2024 1:19 [...] BEDSIDE GLUCOSE Routine 06/21/2024 2:45 PM EDT RUST BIOPHYSICAL PROFILE WO NST Routine 06/21/2024 10:47 [...] EDT POTASSIUM Routine 06/17/2024 10:52 AM EDT RUST BIOPHYSICAL PROFILE WO NST Routine 06/17/2024 10:27 [...] BEDSIDE GLUCOSE Routine 06/16/2024 12:02 PM EDT RUST LMTD OB, 1 OR MORE FETUS Routine [...] EDT from Last 3 Months Results * US MFM OB FOLLOW-UP, 1 FETUS (08/07/2024 4:30 PM EDT) Only the most recent of13 resultswithin the time period is included. Anatomical Region Laterality Modality OB-BEEF PLUCK TRIMMER Ultrasound 08/07/2024 4:05 PM EDT Narrative 08/07/2024 10:27 PM EDT NAME: SCOTTY CAMERON : 1995 SEX: F Accession Number: [id number] ORDERING PHYSICIAN: SILVESTRE SUÁREZ REFERRING PHYSICIAN: ALAN TATUM Coding ----- --------- Procedures 86270: Follow-up Ultrasound, per fetus Indication ----- --------- hx of SVT this , Obesity in , Gestational diabetes History ----- --------- OB History 2. Para 1 [id number] Maternal Assessment ----- --------- Physical Exam Height [...] EFW (oz) 13 oz EFW by: Hadlock (ERH-HV-[id number]-FL) Extended Tibia 65.8 mm 37w 6d >99% Samuel Exposure Machine Operator 6.2 mm CM 8.6 mm 77% Nicolaides [...] 6.8 cm. Recommendations ----- --------- Please see [facility] recommendations from prior clinical and/or ultrasound report documentation. Subsequent follow up or other follow up as clinically determined by primary OB provider unless otherwise specified by [facility]. Results forwarded to ordering provider so they can follow up with the patient as necessary. Procedure Note Tammie Mckeon MD - 08/07/2024 NAME: SCOTTY CAMERON : 1995 SEX: F Accession Number: [id number] ORDERING PHYSICIAN: SILVESTRE SUÁREZ REFERRING PHYSICIAN: ALAN TATUM Coding ----- --------- Procedures [id number]: Follow-up Ultrasound, per fetus Indication ----- --------- hx of SVT this , Obesity in , Gestationaldiabetes History ----- --------- OB History 2. Para 1 [id number] Maternal Assessment ----- --------- Physical Exam Height [...] EFW (oz) 13 oz EFW by: Hadlock (SGW-[id number]-FL) Extended Tibia 65.8 mm 37w 6d >99% Samuel Exposure Machine Operator 6.2 mm CM 8.6 mm 77% Nicolaides [...] 6.8 cm. Recommendations ----- --------- Please see [facility] recommendations from prior clinical and/or ultrasoundreport documentation. Subsequent follow up or other follow up as clinically determined byprimary OB provider unless otherwise specified by [facility]. Results forwarded to ordering provider so they can follow up with thepatient as necessary. us Silvestre Suárez MD IMG US ORDERABLES Final Re sult * Strep B screen (08/04/2024 9:03 AM EDT) CULTURE RESULTS NEGATIVE FOR GROUP B STREPTOCOCCUS BY NUCLEIC ACID AMPLIFICATION 08/05/2024 1:02 PM EDT [facility] Swab (Vagina/Rectum) 08/04/2024 9:03 AM EDT 08/04/2024 9:03 AM EDT us Haley Tucker DO MICROBIOLOGY - GENERAL ORDER HALEY Final Result Performing Organization Address City/[facility]/ZIP Co de Phone Number [facility] [address] [place] [address], [place] [phone] * Ultrasound pelvic with transvaginal (07/30/2024 9:10 AM EDT) Only the most recent of4 resultswithin the time period is included. Anatomical [...] ORDERABLES Edited Result - Final TRACEMASTERVUE * Glucose random or fasting- POCT (07/06/2024) [...] - 99 mg/dL 06/28/2024 10:13 AM EDT [facility] arterial/capilla ry 06/28/2024 10:10 AM EDT 06/28/2024 10:13 AM EDT us Fuentes Stauffer MD POINT OF CARE TEST ORDERABLES Final Result Performing Organization Address [facility]/ZIP Co de Phone Number [facility] [address] [place] [address], * (ABNORMAL) Comprehensive metabolic panel (06/28/2024 7:57 AM EDT) Only the most recent of14 resultswithin the time period is included. [facility] BILIRUBIN,TOTAL 0.4 0.3 - 1.2 mg/dL 06/28/2024 8:57 AM EDT [facility] CALCIUM 9.0 8.5 - 10.5 mg/dL 06/28/2024 8:57 AM EDT [facility] CARBON DIOXIDE 21(L) 22 - 32 mmol/L 06/28/2024 8:57 AM EDT [facility] CHLORIDE 106 98 - 109 mmol/L 06/28/2024 8:57 AM EDT [facility] CREATININE 0.35(L) 0.40 - 1.00 mg/dL 06/28/2024 8:57 AM EDT [facility] Comment:METHOD TRACEABLE TO IDMS STANDARD GLUCOSE 94 65 - 99 mg/dL 06/28/2024 8:57 AM EDT [facility] ALKALINE PHOSPHATASE 74 39 - 130 U/L 06/28/2024 8:57 AM EDT [facility] POTASSIUM 3.6 3.5 - 5.0 mmol/L 06/28/2024 8:57 AM EDT [facility] TOTAL PROTEIN 5.7(L) 6.0 - 8.0 g/dL 06/28/2024 8:57 AM EDT [facility] SODIUM 139 134 - 146 mmol/L 06/28/2024 8:57 AM EDT [facility] AST 13 <=41 U/L 06/28/2024 8:57 AM EDT [facility] ALT 8 <=31 U/L 06/28/2024 8:57 AM EDT [facility] BLOOD UREA NITROGEN 6 5 - 23 mg/dL 06/28/2024 8:57 AM EDT [facility] ANION GAP 12 5 - 15 mmol/L 06/28/2024 8:57 AM EDT [facility] ALBUMIN 3.3 3.2 - 5.3 g/dL 06/28/2024 8:57 AM EDT [facility] EGFR Non-Race Dependent >90 >=60 ml/min/1.7 3sq.m 06/28/2024 8:57 AM EDT [facility] Comment: Reported eGFR is based on the CKD-EPI 2020 equation that does not use a race coefficient. Blood Venous blood / Unknown 06/28/2024 7:57 AM EDT 06/28/2024 7:57 AM EDT us Fuentes Stauffer MD LAB BLOOD ORDERABLES Final Res ult [facility] [address] [place] [address], * (ABNORMAL) Magnesium (06/27/2024 6:48 AM EDT) Only the most recent of29 resultswithin the time period is included. Magnesium 1.5(L) 1.8 - 2.6 mg/dL 06/27/2024 7:41 AM EDT [facility] PLASMA 06/27/2024 6:48 AM EDT 06/27/2024 6:49 AM EDT Aidan Rivera MD LAB BLOOD ORDERABLES F inal Result NICK [facility] [address] [place] [address] * Limited Echo Follow Up (06/24/2024 2:46 [...] - 5.0 mmol/L 06/24/2024 9:33 AM EDT [facility] 06/24/2024 8:21 AM EDT 06/24/2024 8:22 AM EDT Jovani Stubbs MD LAB BLOOD ORDERABLES Final R esult Performing Organization Address [facility]/ZIP Co de Phone Number [facility] [address] [place] [address], [place] [address] * Digoxin level (06/24/2024 5:32 AM EDT) Only the most recent of10 resultswithin the time period is included. Digoxin Lvl 1.3 0.8 - 2.0 ng/mL 06/24/2024 6:46 AM EDT [facility] PLASMA 06/24/2024 5:32 AM EDT 06/24/2024 5:33 AM EDT Cathleen Perez MD LAB BLOOD ORDERABLES Final Resul t Performing Organization Address [facility]/ZIP Co de Phone Number [facility] [address] [place] [address], [place] [address] * Type and screen(includes indirect radha) (06/24/2024 12:00 AM EDT) Only the most recent of2 resultswithin the time period is included. ABO O 06/24/2024 12:57 AM EDT [facility] RH Positive 06/24/2024 12:57 AM EDT [facility] Antibody Screen Negative 06/24/2024 12:57 AM EDT [facility] 06/24/2024 12:0 0 AM EDT us Estelle vAila DO BLOOD BANK TEST ORDERABLES Edited Result - Final [facility] [address] [place] [address], [place] * Ionized magnesium (06/22/2024 2:17 PM EDT) Magnesium, ionized 0.45 0.45 - 0.74 mmol/L 06/22/2024 2:35 PM EDT [facility] Comment:NEW REFERENCE RANGE PLASMA 06/22/2024 2:17 PM EDT 06/22/2024 2:18 PM EDT us Estefani Olea MD LAB BLOOD ORDERABLES Final Res ult [facility] [address] [place] [address] * Limited Echo Follow Up (06/22/2024 1:15 [...] the time period is included. Test name FLEC FLECINIDE ON NO GEL SERUM 06/22/2024 8:07 AM EDT [facility] Test result SEE COMMENTS 06/23/2024 12:49 PM 06/23/2024 1:49 PM EDT [facility] Comment: NOTE Test Result Flag Unit RefValue Flecainide, S 0.5 mcg/mL REFERENCE VALUE 0.2 - 1.0 (Therapeutic concentration, trough value), >1.0 (Toxic concentration, trough value) ADDITIONAL INFORMATION This test was developed and its performance characteristics determined by [facility] in a manner consistent with CLIA requirements. This test has not been cleared or approved by the U.S. Food and Drug Administration. Test Performed by: [facility] [place] [address] [employer] Consultant: Mino Cain Ph.D.; CLIA# [id number] MISCELLANEOUS 06/22/2024 5:4 9 AM EDT 06/22/2024 5:50 AM EDT Elvira Patel MD LAB ORDERABLES Final Result [...] of3 resultswithin the time period is included. Pathologist [facility] Sodium 140 134 - 146 mmol/L 06/14/2024 6:51 AM EDT [facility] Potassium, Bld 3.8 3.5 - 5.0 mmol/L 06/14/2024 6:51 AM EDT [facility] Chloride 106 98 - 109 mmol/L 06/14/2024 6:51 AM EDT [facility] CO2 24 22 - 32 mmol/L 06/14/2024 6:51 AM EDT [facility] Anion gap 10 5 - 15 mmol/L 06/14/2024 6:51 AM EDT [facility] BUN 8 5 - 23 mg/dL 06/14/2024 6:51 AM EDT [facility] Creatinine 0.41 0.40 - 1.00 mg/dL 06/14/2024 6:51 AM EDT [facility] Comment:METHOD TRACEABLE TO IDMS STANDARD Glucose 97 65 - 99 mg/dL 06/14/2024 6:51 AM EDT [facility] Calcium 9.1 8.5 - 10.5 mg/dL 06/14/2024 6:51 AM T [facility] [facility] eGFR (CKD-EPI)non-ra ce dependent >90 >59 ml/min/1.7 3sq.m 06/14/2024 6:51 AM EDT [facility] Comment: Reported eGFR is based on the CKD-EPI 2020 equation that does not use a race coefficient. PLASMA 06/14/2024 5:12 AM EDT 06/14/2024 5:13 AM EDT us Estefani Olea MD LAB BLOOD ORDERABLES Final Res ult [facility] [address], [address] [place] [address] * (ABNORMAL) Glucose tolerance, 3 hours (06/12/2024 10:08 AM EDT) Glucose, GTT - 3 Hour 123(H) 65 - 99 mg/dL 06/12/2024 11:00 AM EDT [facility] PLASMA 06/12/2024 10:0 8 AM EDT 06/12/2024 10:09 AM EDT us Kendrick Mahoney MD LAB BLOOD ORDERABLES Final Re sult Performing Organization Address [facility]/ZIP Co de Phone Number [facility] [address], [address] [place] [address] * Echo complete W/O contrast (06/12/2024 10:03 AM EDT) [facility] LVOT stroke volume 64.40 ml XCELERA LV [...] proximal 15 cm XCELERA Left Ventricle Mass 127.90751 [id number] 7 g XCELERA Interventricular Septum Diastolic Thickness [...] - 139 mg/dL 06/12/2024 10:05 AM EDT [facility] Comment: [employer] Conference: [...] MD LAB BLOOD ORDERABLES Final Re sult NICK [facility] [address], [address] [place] [address] * (ABNORMAL) Glucose tolerance, 1 hour (06/12/2024 7:51 AM EDT) Glucose, GTT - 1 Hour 187(H) 120 - 170 mg/dL 06/12/2024 9:11 AM EDT [facility] PLASMA 06/12/2024 7:51 AM EDT 06/12/2024 7:52 AM EDT us Kendrick Mahoney MD LAB BLOOD ORDERABLES Final Re sult Performing Organization Address [facility]/ZIP Co de Phone Number [facility] [address], [address] [place] [address] * Glucose, tolerance fasting (06/12/2024 6:51 AM EDT) Glucose, GTT - Fasting 95 65 - 99 mg/dL 06/12/2024 8:05 AM EDT [facility] PLASMA 06/12/2024 6:51 AM EDT 06/12/2024 6:53 AM EDT us Kendrick Mahoney MD LAB BLOOD ORDERABLES Final Re sult Performing Organization Address [facility] Co de Phone Number [facility] [address], [address] [place] [address] * ABO Rh Repeat (06/12/2024 6:30 AM EDT) Only the most recent of2 resultswithin the time period is included. ABO O 06/12/2024 10:14 AM EDT [facility] RH Positive 06/12/2024 10:14 AM EDT [facility] 06/12/2024 6:30 AM EDT us Sue Curtis MD BLOOD BANK TEST ORDERABLES Fi nal Result Performing Organization Address [facility]/ZIP Co de Phone Number [facility] [address] [place] [address], [place] * Urine Drug Screen (06/11/2024 5:00 PM EDT) Amphetamine/metham phetamine Negative Negative^ Negative 06/11/2024 6:19 PM EDT [facility] Comment:AMPH/METH screening cut off = 1000 ng/mL Barbiturate Screen, Ur Negative Negative^ Negative 06/11/2024 6:19 PM EDT [facility] Comment:Barbiturates screeni ng cut off value = 200 ng/mL Benzodiazepine Screen, Urine Negative Negative^ Negative 06/11/2024 6:19 PM EDT [facility] Comment:Benzodiazepines scre ening cut off value = 200 ng/mL THC, urine Negative Negative^ Negative 06/11/2024 6:19 PM EDT [facility] Comment:Cannabinoids/THC scr eening cut off value = 50 ng/mL Cocaine (metabolite) Negative Negative^ Negative 06/11/2024 6:19 PM EDT [facility] Comment:Cocaine screening cu t off value = 300 ng/mL Opiate Quant, Ur Negative Negative^ Negative 06/11/2024 6:19 PM EDT [facility] Comment: Opiates screening cut off value = 300 ng/mL NOTE: This test is used for the detection of codeine, hydrocodone (>1000 ng/mL), morphine and hydromorphone (>900 ng/mL) in urine. Phencyclidine Negative Negative^ Negative 06/11/2024 6:19 PM EDT [facility] Comment:Phencyclidine screen ing cut off value = 25 ng/mL Oxycodone Negative Negative^ Negative 06/11/2024 6:19 PM EDT [facility] Comment: Oxycodone screening cut off value = 300 ng/mL NOTE: This test is used for the detection of oxycodone and oxymorphone in urine. Methadone Negative Negative^ Negative 06/11/2024 6:19 PM EDT [facility] Comment:Methadone screening cut off value = 300 ng/mL. Ecstasy Negative Negative^ Negative 06/11/2024 6:19 PM T [facility] Comment: Ecstasy screening cut off value = 500 ng/mL This report is intended for use in clinical monitoring or management of patients. Urine / Unknown 06/11/2024 5 :00 PM EDT 06/11/2024 5:41 PM EDT us Kendrick Mahoney MD URINE ORDERABLES Final Result NICK [facility] [address] [place] [address] * echo 2D W/ color flow (06/11/2024 [...] - 0.8 AI 06/11/2024 7:23 PM EDT [facility] Comment: NON REACTIVE No serologic evidence of infection to Treponema pallidum (syphilis). Repeat testing may be considered in patients with suspected acute or primary syphilis in 2 to 4 weeks. Serum / Unknown 06/11/2024 3 :22 PM EDT 06/11/2024 3:24 PM EDT us Kendrick Mahoney MD LAB BLOOD ORDERABLES Final Re sult [facility] [address] [place] [address] * (ABNORMAL) CBC auto differential (06/11/2024 3:22 PM EDT) [facility] White Blood Cells 8.9 4.0 - 11.0 X10E9/L 06/11/2024 3:50 PM EDT [facility] RBC count 4.30 3.80 - 5.20 X10E12/L 06/11/2024 3:50 PM EDT [facility] Hemoglobin 12.3 11.7 - 15.5 g/dL 06/11/2024 3:50 PM EDT [facility] Hematocrit 36.3 35 - 47 % 06/11/2024 3:50 PM EDT [facility] MCV 85 80 - 100 fL 06/11/2024 3:50 PM EDT [facility] MCH 28.6 27 - 34 pg 06/11/2024 3:50 PM EDT [facility] MCHC 33.8 32 - 36 g/dL 06/11/2024 3:50 PM EDT [facility] RDW 13.8 11.5 - 15.0 % 06/11/2024 3:50 PM EDT [facility] Platelets 231 150 - 450 X10E9/L 06/11/2024 3:50 PM EDT [facility] MPV 7.1 7 - 12 fL 06/11/2024 3:50 PM EDT [facility] % neutrophils 75.2 % 06/11/2024 3:50 PM EDT [facility] % lymphocytes 18.3 % 06/11/2024 3:50 PM EDT [facility] % monocytes 5.7 % 06/11/2024 3:50 PM EDT [facility] % eosinophils 0.4 % 06/11/2024 3:50 PM EDT [facility] % Basophils 0.4 % 06/11/2024 3:50 PM EDT [facility] Neutrophils Absolute (A) 6.7(H) 1.5 - 6.6 X10E9/L 06/11/2024 3:50 PM EDT [facility] Lymphocytes Absolute 1.6 1.0 - 3.5 X10E9/L 06/11/2024 3:50 PM EDT [facility] Monocytes Absolute 0.5 0 - 0.9 X10E9/L 06/11/2024 3:50 PM EDT [facility] Eosinophils Absolute 0.0 0.0 - 0.4 X10E9/L 06/11/2024 3:50 PM EDT [facility] Basophils Absolute 0.0 0.0 - 0.2 X10E9/L 06/11/2024 3:50 PM EDT [facility] Blood / Unknown 06/11/2024 3 :22 PM EDT 06/11/2024 3:24 PM EDT Kendrick Mahoney MD LAB BLOOD ORDERABLES Final Re sult Performing Organization Address [facility]/ZIP Co de Phone Number [facility] [address] [place] [address], [address] [place] [address] * (ABNORMAL) Vitamin D 25 hydroxy (06/11/2024 3:22 PM EDT) Pathologist [facility] Vit D, 25-Hydroxy 23.3(L) 30 - 100 ng/mL 06/11/2024 4:27 PM EDT [facility] Comment: Vitamin D status 25 [place] Vitamin D Deficiency <20 ng/mL Insufficiency 20-29 ng/mL Sufficiency 30-100 ng/mL Toxicity >100 ng/mL NOTE: A pediatric reference range has not been established by the packing house supervisor of this kit. The [employer] recommends a Vitamin D level of = or >20ng/mL in infants and children. PLASMA 06/11/2024 3:22 PM EDT 06/11/2024 3:24 PM EDT us Kendrick Mahoney MD LAB BLOOD ORDERABLES Final Re sult [facility] [address], [address] [place] [address] * Phosphorus (06/11/2024 3:22 PM EDT) Phosphorus 4.0 2.4 - 4.9 mg/dL 06/11/2024 5:33 PM EDT [facility] PLASMA 06/11/2024 3:22 PM EDT 06/11/2024 3:24 PM EDT us Kendrick Mahoney MD LAB BLOOD ORDERABLES Final Re sult Performing Organization Address [facility]/ZIP Co de Phone Number [facility] [address], [address] [place] [address] * TSH (06/10/2024) Thyroid Stimulating (3Rd Generation) Hormone/ Tsh 1.480 MANUALLY TRANSCRIBED RESULTS us Not In System Ref Prov LAB BLOOD ORDERABLES Oralia l Result Performing Organization Address [facility]/ZIP Co de Phone Number MANUALLY TRANSCRIBED RESULTS * Ultrasound - Office (05/13/2024 11:31 AM EDT) Anatomical Region Laterality Modality AMB Ultrasound us Not In System Ref Prov IMG US ORDERABLES Final R esult from Last 3 Months Insurance [facility] [employer] Care Teams Legal Consultant Relationship Specialty Start Date End Date Sarah Queen APRN-HEADING MACHINE OPERATOR [address] [place] [address] PCP - General Internal Medicine 09/03/23
--- OUTSIDE RECORDS SUMMARY | 2024-08-13 19:23 | XMS_ITS | Encounter Summary ---
Author Organization [facility] Sys tem Address [id number] [address] [place] [address] Care Team Providers Care Driver/Guide Name Role Phone Sarah Queen STONEHAND-MANAGER COLLEGE Primary Care Provider + Encounter Details Date Type Department Care Team (Late st Contact Info) Description 07/22/2024 Orders Only [facility] Internal Medicine - Family Medicine [address] [place] [address] Ref Prov, [place] [address] Social History Tobacco Use Types Packs/Day Years [...] documented as of this encounter Care Teams Driver/Guide Relationship Specialty Start Date End Date Sarah Queen APRN-MANAGER COLLEGE [address] [place] [address] PCP - General Internal Medicine 09/03/23 documented as of this encounter
--- OUTSIDE RECORDS SUMMARY | 2024-08-13 19:23 | XMS_ITS | Encounter Summary ---
Author Organization [employer] Sys tem Address [facility] [place]-[id number] [address] [place] [address] Care Team Providers Care Grinding Supervisor Name Role Phone Sarah Queen CHILDCARE ADMINISTRATOR-EVENT SPECIALIST FOOD DEMONSTRATOR Primary Care Provider + Reason for Visit * Reason Comments Med Refill Encounter Details Date Type Department Care Team (Late st Contact Info) Description 05/15/2022 Refill [facility] Internal Medicine - Family Medicine [address] [place] [address] Deja Caal APRN-FNP [address] [place] [address] [place] [address] Social History Tobacco Use Types Packs/Day Years [...] on filedocumented in this encounter Care Teams Grinding Supervisor Relationship Specialty Start Date End Date Sarah Queen APRN-EVENT SPECIALIST FOOD DEMONSTRATOR [address] [place] [address] PCP - General Internal Medicine 09/03/23 documented as of this encounter
--- OUTSIDE RECORDS SUMMARY | 2024-08-13 19:23 | XMS_ITS | Encounter Summary ---
Author Organization [facility] Sys tem Address [facility] [place][id number] [address] [place] [address] Care Team Providers Care Drapery Worker Name Role Phone Sarah Queen COTTON BUYER-PLUSH FINISHER Primary Care Provider + Encounter Details Date Type Department Care Team (Late st Contact Info) Description 08/03/2024 Orders Only [facility] Internal Medicine - Family Medicine [address] [place] [address] Ref Prov, [place] [address] Social History Tobacco Use Types Packs/Day Years [...] documented as of this encounter Care Teams Drapery Worker Relationship Specialty Start Date End Date Sarah Queen APRN-PLUSH FINISHER [address] [place] [address] PCP - General Internal Medicine 09/03/23 documented as of this encounter
--- OUTSIDE RECORDS SUMMARY | 2024-08-13 19:24 | XMS_ITS | Encounter Summary ---
Author Organization [email or web address] s tem Address [facility] [id number] [address] [place] [address] Care Team Providers Care Visual Merchandiser Name Role Phone Sarah Queen ECHO TECHNOLOGIST-STRUCTURAL WELDER Primary Care Provider + Encounter Details Date Type Department Care Team (Latest Contact Info) Description 08/11/2024 Travel Social History Tobacco Use Types Packs/Day [...] documented as of this encounter Care Teams Visual Merchandiser Relationship Specialty Start Date End Date Sarah Queen, ECHO TECHNOLOGIST-STRUCTURAL WELDER [address] [place] [address] PCP - General Internal Medicine 09/03/23 documented as of this encounter
--- OUTSIDE RECORDS SUMMARY | 2024-08-13 19:24 | XMS_ITS | Encounter Summary ---
Author Organization [facility] tem Address [facility] [place][id number] [address] [place] [address] Care Team Providers Care Snowboard Instructor Name Role Phone Sarah Queen Arnaud VANGN-DATA COMMUNICATIONS ANALYST Primary Care Provider + Encounter Details Date Type Department Care Team (Late st Contact Info) Description 08/11/2024 Telephone Maternal- Medicine at [facility] [address] [facility] [place] [id number] Luz Marina Castelan RN Social History Tobacco Use Types Packs/Day [...] encounter Miscellaneous Notes * Telephone Encounter - Luz Marina Castelan RN - 08/11/2024 2:37 PM EDT Left message for patient that [facility] provider reviewed [employer] M and no changes are needed at thistime. documented in this encounter Plan of Treatment Not on file documented as of this encounter Visit Diagnoses Not on filedocumented in this encounter Additional Health Concerns Assessment Noted Time PHQ-9 Depression Total Score: 0 05/29/19 23 11:03 AM EDT documented as of this encounter Care Teams Snowboard Instructor Relationship Specialty Start Date End Date Sarah Queen, TAX LAWYER-DATA COMMUNICATIONS ANALYST [address] [place] [address] PCP - General Internal Medicine 09/03/23 documented as of this encounter
--- OUTSIDE RECORDS SUMMARY | 2024-08-13 19:24 | XMS_ITS | Encounter Summary ---
Author Organization [facility] Address [address] [place] [address] Care Team Providers Care Manager Lean Name Role Phone Terrence Mcintyre MD Primary Care Provider + [phone] Encounter Details Date Type Department Care Team (Late st Contact Info) Description 04/30/2024 Orders Only [facility] [address] [id number] Annie Keith MA [address] [place] [address] Social History Tobacco Use Types Packs/Day Years [...] on filedocumented in this encounter Care Teams Manager Lean Relationship Specialty Start Date End Date Terrence Mcintyre MD [address] [place] [address] PCP - General Family Medicine 02/11/24 documented as of this encounter
[2024-08-13 20:18] VITALS: BP 120/56; PULSE 81
== END 2024-08-13 20:20 | disposition home or self-care (01) ==
LOC: US 19:15 → FBC 19:18
PROVIDERS: PCP Family Medicine; Visit Provider Obstetrics & Gynecology
DX: O36.63X0 Maternal care for excessive fetal growth, third trimester, not applicable or unspecified (principal); Z3A.36 36 weeks gestation of pregnancy
CPT/HCPCS: 59025; 76818